=== PATIENT | male | born 1945 | race Caucasian/White ===

== ENCOUNTER 2016-02-18 15:26 | Outpatient (RCR) | payer MEDICARE, MEDICAID ==
--- OUTSIDE RECORDS SUMMARY | 2015-12-17 15:13 | XMS REPORT | Continuity of Care Document ---
Author Author [facility] Organization [facility] Address Unknown Phone Unavailable Care Team Providers Care Coremaking Machine Setter Name Role Phone FABI CABA MD PCP Insurance Providers Payer Name Policy Number Subscriber Name Relationship Wps Medicare [id number] Bony Eddy 18 Self / Same As Patient [employer] [id number] Bony Eddy 18 Self / Same As Patient Advance Directives Directive Response Recorded Date/Time Advance Directives Yes 04/14/14 12:58pm Health Care Power of Projection Camera Operator Yes 04/14/14 12:58pm Organ Donor No 04/14/14 12:58pm Problems Medical Problems Problem Onset Date Status Chest pain Unknown Active Severe peripheral arterial disease Unknown Active Severe peripheral arterial disease Unknown Active Medications Medication Dose Route Sig Days/Qty Instructions Order Date Discontinued Date Status Warfarin Sodium 5 Mg PO DAILY 02/21/07 Active [Dilantin] 02/21/07 10/26/08 Discontinued Ezetimibe 02/21/07 05/18/10 Discontinued [Metoprolol] 02/21/07 10/26/08 Discontinued [Lisinopril] 02/21/07 05/18/10 Discontinued Cou 04/04/07 10/26/08 Discontinued Lis 04/04/07 10/26/08 Discontinued Dila 04/04/07 10/26/08 Discontinued [Coreg12.5 Mg] 1 Tab PO TWICE A DAY 05/18/10 08/26/10 Discontinued Carvedilol (Coreg) 3.125 Mg PO TWICE A DAY LAST FILLED #60 4-6-13 06/20 /11 07/18/14 Discontinued Furosemide (Lasix) 20 Mg PO DAILY 08/26/10 01/29/13 Discontinued Potassium Chloride 10 Meq PO DAILY LAST FILLED #30 05-26-12 08/26/10 Discontinued Acetaminophen 1,000 Mg PO EVERY 6 HOURS PRN 08/31/10 11/29/12 Discontinued Aspirin 81 Mg PO DAILY 08/31/10 Active Clopidogrel Bisulfate 75 Mg PO DAILY 08/31/10 05/21/12 Discontinued Lisinopril (Zestril) 5 Mg PO DAILY 08/31/10 09/09/11 Discontinued Pantoprazole Sod 40 Mg PO DAILY LAST FILLED #30 05-25-12 08/31/1006/14 Discontinued Fish Oil 1,000 Mg PO TWICE A DAY 08/31/10 04/11/14 Discontinued Atorvastatin Calcium 10 Mg PO BEDTIME 08/31/10 10/04/10 Discontinued Rosuvastatin Calcium 40 Mg PO BEDTIME 10/04/10 11/29/12 Discontinued Hydrocodone Bit/Acetaminophen 1 Each PO EVERY 4HRS PRN 10 Qty 11/19/12 11/24/12 Discontinued Clopidogrel Bisulfate 75 Mg PO DAILY 11/24/12 11/24/12 Discontinued Acetaminophen/Hydrocodone Bitart 1 Tab PO EVERY 4HRS PRN PAIN 5-325MG TABLET 11/24/12 01/29/13 Discontinued Gabapentin 100 Mg PO DAILY 11/24/12 11/29/12 Discontinued Gabapentin 300 Mg PO THREE TIMES A DAY 11/29/12 Active Cephalexin Monohydrate 500 Mg PO EVERY 6 HOURS 7 Days 11/29/12 Discontinued Pantoprazole Sodium 1 Tab PO DAILY 30 Qty 01/29/13 06/18/13 Discontinued Ibuprofen 400 Mg PO THREE TIMES DAILY WITH MEALS 5 Days 01/29/1309/23 Discontinued Furosemide 40 Mg PO DAILY 06/17/13 09/23/13 Discontinued Pantoprazole Sodium 40 Mg PO DAILY 30 Qty 06/18/13 09/29/13 Discontinued Carvedilol 6.25 Mg PO TWICE A DAY 09/23/13 Active Furosemide (Lasix) 40 Mg PO DAILY 09/23/13 04/11/14 Discontinued Multivitamin 1 Tab PO DAILY 09/23/13 Active Lisinopril 5 Mg PO DAILY 09/23/13 Active Magnesium Oxide 400 Mg PO DAILY 09/23/13 Active Ipratropium/Albuterol Sulfate 2 Puff IH EVERY 6 HOURS PRN SHORTNESS OF BREATH NEEDED FOR SHORTNESS OF BREATH 09/23/13 04/11/14 Discontinued Warfarin Sodium 2.5 Mg PO M,TU,TH,FR,SA,SANTOS 09/23/13 04/11/14 Discontinued Pantoprazole Sodium 40 Mg PO BEDTIME 09/29/13 Active Furosemide (Lasix) 40 Mg PO DAILY 04/11/14 Active Ipratropium/Albuterol Sulfate 1 Puff IH EVERY 6 HOURS PRN SHORTNESS OF BREATH 04/11/14 Active Albuterol Sulfate 2 Puff IH EVERY 6 HOURS PRN SHORTNESS OF BREATH 05/21 Active Enoxaparin Sodium 80 Mg SC EVERY 12 HOURS 4 Qty 04/20/14 Active Social History Social History Problem Response Recorded Date/Time Alcohol Use Past History 04/14/2014 12:59pm Recreational Drug Use No 04/14/2014 12:59pm Recent Foreign Travel No 09/23/2013 7:05am Recent Infectious Disease Exposure No 09/23/2013 7:05am Hospitalization with Isolation Denies 09/23/2013 5:06pm Sexually Transmitted Disease No 04/14/2014 12:59pm HIV/AIDS No 04/14/2014 12:59pm Hospital Discharge Instructions No hospital discharge instructions. Plan of Care No plan of care. Functional Status No functional status results. Allergies, Adverse Reactions, Alerts Allergen Type Severity Reaction Status Last Updated Morphine Allergy Unknown Active 02/22/07 Immunizations Name Given Type Hepatitis A No Historical Hepatitis B Yes Historical Tetanus Booster (TDap) Less than 5yrs Historical Vital Signs No known vital signs results. Results Laboratory Results Test Name Result Units Flags Reference Collection Date/Time Result Date/ Time Comments Prothrombin Time 24.9 SEC H 12.2-14.7 05/03/2014 10:40am 05/03/2014 11: 13am INR Comment 2.3 H 0.8-1.4 05/03/2014 10:40am 05/03/2014 11:13am INTERPRETIVE DATA SUGGESTED THERAPEUTIC RANGE FOR INR'S: VENOUS THROMBOSIS, PULMONARY EMBOLISM, OR PREVENTION OF SYSTEMIC EMBOLISM (EG. IN ATRIAL FIBRILLATION): 2.0 - 3.0 MECHANICAL PROSTHETIC HEART VALVES: 2.5 - 3.5* *NOTE: INR'S UP TO 4.5 MAY BE NECESSARY IN SELECTED GROUPS OF HIGH RISK PATIENTS. [employer] CONSENSUS CONFERENCE ON ANTITHROMBOTIC THERAPY (2000). Procedures No known history of procedures. Encounters Encounter Location Date/Time Discharged Recurring [facility] 06/23/14 11:51am Discharged Recurring [facility] 05/03/14 10:30am
[~2016-02-18 15:26] MED LIST: AC500T PO; ACHD5005 PO; AGM875T PO; ALBU8.5H2 IH; ALLO100T PO; AMOX1TAB12 PO; AMPI500C9 PO; ASP81TEC PO; ATRV10T PO; CARV12.52 PO; CARV3.122 PO; CARV6.252 PO; CEPH-38 PO; CIPR500T4 PO; CLPD75T PO; COU; CRESTOR40 MG PO; CRV6.25T PO; DILANTIN; ENXP80I.8 SC; EZET10TA5; FURO20TA4 PO; FURO40TA PO; FURO40TA4 PO; GABA-488 PO; GBPN100C PO; GBPN300C PO; HYDR-3812 PO; HYDR-757 PO; HYDR1TAB PO; IBP200T PO; IPRA4AER IH; LACT1CAP8 PO; LACT1TAB9 PO; LIS; LISI-556 PO; LISI5TAB PO; LISINOPRIL; MAGN400T6 PO; METOPROLOL; METR500T PO; MULT-974 PO; NAPR-243 PO; OMG1KC PO; PANT40TA PO; PANT40TA3 PO; PNT40TEC PO; POTA10CA43 PO; RT-COMBINH IH; SILV480G TP; SULF-11 PO; WARF-48 PO; WARF1TAB PO; WARF2.5T56 PO; WRF5T PO; [UNRECOGNIZED DRUG - OTHER]
[2016-03-06] MEDS ORDERED: GABA-486 PO ×2 (17:08)
[2016-03-06] MEDS ORDERED: ROSU40TA PO (17:08)
[2016-03-18] MEDS ORDERED: WARF2TAB PO (14:27)
[2016-03-18] MEDS ORDERED: GABA-486 PO ×3 (14:27)
[2016-03-18] MEDS ORDERED: DOCU100C37 PO (14:27)
[2016-03-18] MEDS ORDERED: HYDR-3812 PO (14:28)
== END 2016-03-16 | disposition home or self-care (01) ==
LOC: WOUNDCARE 15:26
PROVIDERS: ATTEND Surgery
DX: L97.523 Non-pressure chronic ulcer of other part of left foot with necrosis of muscle (principal); I70.245 Atherosclerosis of native arteries of left leg with ulceration of other part of foot; I87.323 Chronic venous hypertension (idiopathic) with inflammation of bilateral lower extremity; I89.0 Lymphedema, not elsewhere classified; F17.210 Nicotine dependence, cigarettes, uncomplicated
CPT/HCPCS: 11042; 87070; 87075; 87077; 87186; 87205; 99213

== ENCOUNTER 2016-03-06 14:10 | Inpatient (IN) | payer MEDICARE, MEDICAID ==
[~2016-03-06] VITALS: Ht 160 cm; Wt 72.1 kg
[2016-03-06] MEDS ORDERED: ROSU40TA PO (17:08)
[2016-03-06] MEDS ORDERED: GABA-486 PO ×2 (17:08)
[2016-03-06 17:51] VITALS: BP 115/61
--- OUTSIDE RECORDS SUMMARY | 2016-03-06 18:07 | XMS REPORT | Continuity of Care Document ---
Author Author [facility] Organization [facility] Address Unknown Phone Unavailable Care Team Providers Care Instructor Creeler Name Role Phone FABI CABA MD PCP Insurance Providers Payer Name Policy Number Subscriber Name Relationship Wps Medicare [id number] Bony Eddy 18 Self / Same As Patient [employer] [id number] Bony Eddy 18 Self / Same As Patient Advance Directives Directive Response Recorded Date/Time Advance Directives Yes 04/14/14 12:58pm Health Care Power of Airport Operations Duty Manager Yes 04/14/14 12:58pm Organ Donor No 04/14/14 [...] SELECTED GROUPS OF HIGH RISK PATIENTS. [employer] CONSENSUS CONFERENCE ON ANTITHROMBOTIC THERAPY (2000). Procedures No known history of procedures. Encounters Encounter Location Date/Time Discharged Recurring Via [facility] 06/23/14 11:51am Discharged Recurring Via [facility] 05/03/14 10:30am
[2016-03-06] MEDS ORDERED: RT-ALBUTEROL SULF 2.5 MG/3 ML PRE-MIX VIAL IH PRN (18:30)
[2016-03-06] MEDS ORDERED: FLU TRIvalent (5 YOA+) 2016-17 (AFLURIA) 0.5 ML IM ONE (19:00)
[2016-03-06] MEDS: ATORVASTATIN 40 MG (LIPITOR) TABLET PO SCH (20:00)
[2016-03-06] MEDS: CARVEDILOL 6.25 MG (COREG) TAB PO SCH (20:00)
[2016-03-06] MEDS: GABAPENTIN 100 MG (NEURONTIN) CAP PO SCH (20:00)
[2016-03-06] MEDS: RT-ALBUTEROL/IPRATROPIUM 3 ML (DUONEB) VIAL INH SCH (21:00)
[2016-03-07] MEDS: HYDROcodone/APAP 5 MG/325 MG (LORTAB) TAB PO PRN ×2 (01:28→13:16)
[2016-03-07] MEDS: RT-ALBUTEROL/IPRATROPIUM 3 ML (DUONEB) VIAL INH SCH ×5 (02:47→20:07)
[2016-03-07] MEDS: PANTOPRAZOLE 40 MG (PROTONIX) TAB PO SCH (05:28)
[2016-03-07 05:37] LABS: BASOPHILS % (AUTO) 0 % (0-10); EOSINOPHILS # (AUTO) 0.2 10^3/uL (0.0-0.3); EOSINOPHILS % (AUTO) 2 % (0-10); LYMPHOCYTES # (AUTO) 2.2 X 10^3 (1.0-4.0); LYMPHOCYTES % (AUTO) 23 % (12-44); MEAN CORPUSCULAR HEMOGLOBIN 29 PG (25-34); MEAN CORPUSCULAR HGB CONC 34 G/DL (32-36); MEAN CORPUSCULAR VOLUME 86 FL (80-99); MEAN PLATELET VOLUME 11.6 FL (7.4-10.4); MONOCYTES # (AUTO) 1.1 X 10^3 (0.0-1.0); MONOCYTES % (AUTO) 11 % (0-12); NEUTROPHILS # (AUTO) 6.1 X 10^3 (1.8-7.8); NEUTROPHILS % (AUTO) 64 % (42-75); PLATELET COUNT 185 10^3/uL (130-400); RED BLOOD COUNT 3.33 10^6/uL (4.35-5.85); RED CELL DISTRIBUTION WIDTH 14.3 % (10.0-14.5); WHITE BLOOD COUNT 9.6 10^3/uL (4.3-11.0)
[2016-03-07 05:49] LABS: INR 2.1 (0.8-1.4); PROTHROMBIN TIME PATIENT 23.1 SEC (12.2-14.7)
[2016-03-07 05:59] LABS: ALANINE AMINOTRANSFERASE 15 U/L (0-55); ALBUMIN 3.2 G/DL (3.2-4.5); ANION GAP 9 MMOL/L (5-14); ASPARTATE AMINO TRANSFERASE 34 U/L (5-34); BILIRUBIN,TOTAL 0.4 MG/DL (0.1-1.0); BLOOD UREA NITROGEN 18 MG/DL (7-18); BUN/CREATININE RATIO 22; CALCIUM 8.9 MG/DL (8.5-10.1); CARBON DIOXIDE 25 MMOL/L (21-32); CHLORIDE 95 MMOL/L (98-107); CREATININE SERUM 0.81 MG/DL (0.60-1.30); GFR ESTIMATED > 60; GLUCOSE 105 MG/DL (70-105); POTASSIUM 4.5 MMOL/L (3.6-5.0); SODIUM 129 MMOL/L (135-145); TOTAL PROTEIN 6.1 G/DL (6.4-8.2)
[2016-03-07 06:00] VITALS: BP 120/73
--- NOTE | 2016-03-07 08:07 | HISTORY AND PHYSICAL ---
DATE OF ADMISSION: 03/06/2016 CHIEF COMPLAINT: Difficulty with walking, status post left AKA. HISTORY OF PRESENT ILLNESS: The patient is a 70-year-old retired male who lives in [place] who has had multiple revascularization procedures with Dr. Wren and Dr. Li. He was admitted to [facility] on 03/01 with severe ischemic rest pain of the left leg. No further revascularizations were available and the patient underwent a left AKA with Dr. Li vascular surgery. He is now referred to Inpatient Rehabilitation Unit, [facility] for ongoing amputee rehabilitation. His PCP is Dr. Alvarez. Currently he requires assistance for his ADLs and mobility skills.Specifically he is min assist for Standpivot transfers and bed mobility as well as w/c propulsion. He is Modified Independent for eating and grooming at the w/c level Mod assist for LB drsssing and min assist for UB drsssing. He had been modified independent with a walker prior to this. He reports being continent of bowel and bladder PAST MEDICAL HISTORY: 1. Hypertension. 2. Hyperlipidemia. 3. Peripheral vascular disease. 4. Mild carotid artery stenosis. 5. Coronary artery disease. 6. Chronic anticoagulation. 7. Tobaccoism. 8. Cardiomyopathy with ejection fraction 25%. 9. Mitral regurgitation, severe. 10. COPD. 11. Chronic systolic congestive heart failure. PAST SURGICAL HISTORY: 1. Left femoropopliteal bypass 05/25/2012 Dr. Li. 2. Right lower extremity stents Dr. Wren. 3. Status post thrombolytic therapy and stenting of the popliteal artery, Dr. Wren March 2014. 4. Cardiac catheterization in August 2010 showing patent grafts and a total occlusion of left circumflex artery. 5. Two-vessel bypass grafting 2004. 6. Status post AVR on June 2013. ALLERGIES: MORPHINE FAMILY HISTORY: Noncontributory. SOCIAL HISTORY: He lives in a first floor apartment in [place]. He is retired. He has family nearby. He is a . REVIEW OF SYSTEMS: Ten-point review of systems significant for a mild residual limb pain phantom limb pain, is on gabapentin for that. MEDICATIONS: 1. Lisinopril 5 mg p.o. daily. 2. Combivent inhalation q.6 hours. 3. Coumadin 5 mg p.o. daily. 4. Gabapentin 100 mg p.o. at noon, 8 a.m. and 200 mg at bedtime. 5. Mag-Ox 400 mg p.o. b.i.d. 6. Coreg 6.25 mg p.o. b.i.d. 7. Lipitor 40 mg p.o. at bedtime. 8. Lortab 5, 1 tablet p.o. q.4 hours p.r.n. moderate pain. 9. Albuterol small-volume nebulizer treatments q.4 hours p.r.n. dyspnea. PHYSICAL EXAMINATION: Physical examination is significant for a male, appearing his stated age, alert and oriented in no acute distress. VITAL SIGNS: He is afebrile. Pulse 70, respirations 16, blood pressure 115/61, O2 sat 95% on room air. HEENT: Vision, speech, hearing, grossly intact. No oral lesion is noted. NECK: Supple without mass. HEART: Regular rhythm. LUNGS: Clear. ABDOMEN: Soft, nontender. Bowel sounds present. EXTREMITIES: He has a left AKA with dressing in place. There is no calf tenderness. No edema in the right leg. MUSCULOSKELETAL: He has functional active range of motion in both upper extremities and right lower extremity and at the left hip. NEUROLOGIC: Sensation is grossly intact to touch. Cognition grossly intact. Strength both upper extremities, 4/5. Right lower extremity 4/5, left hip 4/5. IMPRESSION: 1. Ambulatory dysfunction secondary severe peripheral vascular disease, status post left AKA Dr. Li 03/01/16, Dana Dillon. 2. Hypertension, controlled with medication. 3. Hyperlipidemia, on statin. 4. Bilateral mild carotid artery stenosis. 5. Coronary artery disease, status post CABG and aVR 2004. Dr. Li. 6. Chronic anticoagulation per above. 7. Tobacco abuse currently abstaining. 8. Cardiomyopathy with ejection fraction of 25% followed by Dr. Solis in the past. 9. Severe mitral regurgitation. 10. COPD on inhalers. 11. Chronic systolic congestive heart failure, stable at this point, compensated. PLAN: The patient will have a comprehensive program of inpatient amputee rehabilitation with goal of maximizing level of functional dependence prior to discharge home with family and home health care. The patient will have PT/OT 90 minutes per day, 5 days a week for gait strengthening, conditioning, residual limb conditioning, ADLs, focus on wheelchair level of function, any adaptive equipment needed. Rehabilitation nursing assist with bowel, bladder, skin, wound care, medication administration, pain management. Speech therapy to do cognitive assessment and treat as indicated. senior professional services consultant to assist with discharge planning, community reentry. Respiratory therapy to assist with respiratory treatment administrations as needed. Follow-up with Dr. Alvarez PCP as per her schedule. Check CBC, CMP in a.m. daily INR and adjust Coumadin as indicated. Therapy with cardiac and fall precautions. DVT prophylaxis; the patient is on Coumadin. Follow-up with Dr. Solis cardiology as needed, or associated if he is unavailable ESTIMATED LENGTH OF STAY: Two weeks. PROGNOSIS: Rehab prognosis appears good for goal of discharging home with home health care and family to assist as needed. At the modified independent to supervision level. DIET: Regular. CODE STATUS: Full code. POST ADMISSION PHYSICIAN ASSESSMENT: The preadmission screen agrees with the post admission assessment that the patient is a good candidate for inpatient rehabilitation. He appears to be well motivated to participate in 3 hours of therapy a day. He should be able to tolerate 3 hours of therapy a day from a medical and surgical standpoint. He should benefit from the 3 hours of therapy a day. He has a reasonable discharge plan, reasonable discharge rehabilitation goals and a supportive family. He has various comorbidities that need to be closely monitored with medications and treatments adjusted on daily basis as needed. These include his hypertension, his congestive heart failure and cardiomyopathy and ongoing pain management and adjustment of Coumadin for therapeutic INR as needed. Barriers to discharge for this patient who had been modified independent prior to this is for him to be modified independent to supervision for ADLs and mobility skills prior to discharge home with home health care, so as to lessen the burden of the caregivers. Risks for this patient include: 1. Skin breakdown. 2. Wound infection. 3. Contractions. 4. Poorly controlled pain. 5. Poorly controlled phantom limb pain. 6. Poorly controlled hypertension. 7. Exacerbation of CHF. 8. Exacerbation of COPD. 9. DVT. 10. Pulmonary embolism. 11. Urinary retention. 12. UTI. 13. Respiratory infection. 14. Aspiration. . Job ID: [id number] Dictated Date: 03/06/2016 19:47:22 Teacher Industrial Arts Date: 03/07/2016 07:45:43/tracy ROY
[2016-03-07] MEDS: MAGNESIUM OXIDE (MAG-OX)400 MG TAB PO SCH ×2 (08:09→18:09)
[2016-03-07] MEDS: CARVEDILOL 6.25 MG (COREG) TAB PO SCH ×2 (08:09→20:46)
[2016-03-07] MEDS: GABAPENTIN 100 MG (NEURONTIN) CAP PO SCH ×3 (08:09→20:46)
--- NOTE | 2016-03-07 08:53 | Physical Therapy Evaluation ---
PT Evaluation-General Medical Diagnosis Admission Date Mar 06, 2016 at 18:04 Medical Diagnosis: left AKA Onset Date: Mar 01, 2016 Therapy Diagnosis Therapy Diagnosis: impaired mobility, strength, ROM, balance, pain Height/Weight Height (Feet): 5 Height (Inches): 3.00 Weight (Pounds): 160 Weight (Ounces): 7.0 Precautions Precautions/Isolations: Fall Prevention, Standard Precautions Weight Bear Status Location Restriction: L LE Referral Physician: Tawanda Dyson MD Reason for Referral: Evaluation/Treatment Medical History Pertinent Medical History: Arthritis, CAD, DM, HTN, Neuropathy Additional Medical History former smoker, pneumonia, chronic edema/swelling, high cholesterol, PVD, valvular heart disease, diverticulosis, gout, [place], violent behavior, surg (CABG , coronary stent, valve replacement, vascular surg, left leg bypass and thrombectomy) Current History Patient went to ER on 03/01/16 with severe left leg pain Reviewed History: Yes Social History Home: Apartment Entry Into Home: Level Entry Patient states he has a roommate or something similar right now and that person will be there when he goes home if he needs assistance. Patient lives on a first floor apartment and it is a level entry. Prior/Core FIM Prior Level of Function Functional [place] Measure 0=Not Assessed/NA 4=Minimal Assistance 1=Total Assistance 5=Supervision or Setup 2=Maximal Assistance 6=Modified [place] 3=Moderate Assistance 7=Complete [place] Bed Mobility: 7 Transfers (B,C,W/C) (FIM): 7 Gait: 7 PT Daily Note-Current Subjective Patient in bed pre tx, agrees to PT but is very agitated and answering questions makes him angry. Pain Numeric Pain Scale: 4 Comment: left residual limb Appearance Patient in wheelchair post tx, has OT right after PT. Has nurse call, phone, tray, all needs met. Mental Status Patient Orientation: Person, Place, Situation Transfers Functional [place] Measure 0=Not Assessed/NA 4=Minimal Assistance 1=Total Assistance 5=Supervision or Setup 2=Maximal Assistance 6=Modified [place] 3=Moderate Assistance 7=Complete IndependenceIRFPAI Quality Coding Scale 6 Independent with activity with or without an assistive device 5 Patient requires set up or clean up by helper. Patient completes activity by themselves 4 Supervision or touching assist (CGA). [place] provide cues , steadying assist 3 The helper provides less than half the effort to complete the activity 2 The helper provides more than half the effort to complete the activity 1 Dependent. The helper does all the effort to complete an activity 7 Patient refused to complete or attempt activity 9 The patient did not perform the activity before the current illness or injury 88 Not attempted due to Medical conditions or safety concerns Transfers (B, C, W/C) (FIM): 4 Scootin Rollin Roll Left to Right (QC): 4 Supine to/from Sit: 5 Sit to/from Stand: 4 Bed to/from Chair: 4 Sit to Lying (QC): 4 Lying-Sitting/Side of Bed(QC): 4 Sit to Stand (QC): 4 Chair/Hvm-dd-Exbxi Xfer(QC): 4 Car Transfer (QC): 88 Patient takes a long time to go from supine to sit, he was not open to changing his technique to do this until he saw that he was not able to sit at the edge of the bed by doing it his way. After he gave up, this therapist recommended trying a log roll and patient was able to sit at the edge of the bed by himself but it did take quite a bit of time and effort on his part. He was able to stand using a rolling walker and CGA and elevating the bed a bit to give him a boost. Gait Training Does the Patient Walk?: Yes Gait (FIM): 1 Distance: 2' Walk 10 feet (QC): 88 Walk 50 ft with 2 Turns(QC): 88 Walk 150 ft (QC): 88 Walk 10ft-uneven surface(QC): 88 Gait Level of Assist: 4 Gait Persons Needed: 1 Gait Assistive Device: FWW Patient ambulated a couple of feet to his wheelchair. He states he was not up to ambulating any further. He was very unsteady and probably could not go any further than 2' safely. Wheelchair Training Does the Pt Use a Wheelchair?: Yes Wheelchair (FIM): 2 Distance: 50' Wheelchair Level of Assist: 5 Wheel 50 ft with 2 turns (QC): 4 Wheel 150 ft (QC): 88 Type of Wheelchair: Manual Patient was able to propel a wheelchair 50' with at least 2 turns of 90 degrees. Stair Training Stairs (FIM): 0 1 Step (curb) (QC): 88 4 Steps (QC): 88 12 Steps (QC): 88 Patient is not able to attempt even 1 step safely at this time. Balance Balance Sitting Static: Normal Balance Sitting Dynamic: Normal Balance-Standing Static: Poor Balance Standing Dynamic: Poor Picking up an Object (QC): 88 Exercises Patient stood in parallel bars for approx 8 min. Neuromuscular Patient has intact light touch sensation in his right leg. Strength is 4/5 gross in right leg. Left residual limb strength or any other testing not performed due to pain and patient agitation. Treatments bed mobility and transfers, ambulation, functional strengthening, wheelchair mobility, education Assessment Current Status: Fair Progress Patient has profoundly impaired mobility post left AKA. He has decreased strength in his remaining lower extremity. He would like to eventually get a prosthetic leg and could start using a sap bi architect. PT Short Term Goals Short Term Goals Time Frame: Mar 14, 2016 Gait (FIM): 1 Gait Distance Comment: 20' Gait Level of Assist: 4 Gait Assistive Device: FWW PT Shelter Goals Shelter Goals PT Shelter Goals Time Frame: Mar 28, 2016 Transfers (B,C,W/C) (FIM): 5 Sit to Lying (QC): 6 Lying-Sitting on Side/Bed(QC): 6 Sit to Stand (QC): 4 Rollin Roll Left to Right (QC): 6 Chair/Fyj-uw-Gmvzy Xfer(QC): 4 Car Transfer (QC): 4 Does the Patient Walk: Yes Gait (FIM): 2 Distance: 50' Walk 10 feet (QC): 4 Walk 10ft-Uneven Surface(QC): 4 Walk 50ft with 2 Turns (QC): 4 Gait Level of Assist: 5 Gait Assistive Device: FWW Stairs (FIM): 1 # of Steps: 1 1 Step (curb) (QC): 4 Stairs Level Of Assist: 5 PT Plan Problem List Problem List: Activity Tolerance, Functional Strength, Safety, Balance, Gait, Transfer, Bed Mobility, ROM Treatment/Plan Treatment Plan: Continue Plan of Care Treatment Plan: Bed Mobility, Education, Functional Activity Anuj, Functional Strength, Group Therapy, Gait, Safety, Therapeutic Exercise, Transfers Treatment Duration: Mar 28, 2016 # of days/week 5-6 Visits Per Week: 10-11 Minutes/Day (M-F): 60-90 Minutes/Day (Sat/Lo): 15-30 Pt/Family Agrees w/Plan: Yes Safety Risks/Education Patient Education: Gait Training, Transfer Techniques, Correct Positioning, W/ C Management, Safety Issues Teaching Recipient: Patient Teaching Methods: Demonstration, Discussion Response to Teaching: Reinforcement Needed Oriented patient to rehab and education on stump care and disease process Discharge Recommendations Plan Patient will perform bed mobility and transfers, balance and endurance training , functional strengthening, stair training, gait training, ROM/stretching, wheelchair mobility, education, to improve functional mobility and independence at home. Therapy D/C Recommendations: Home w/ Family Support Time/GCodes Time In: 800 Time Out: 900 Total Billed Treatment Time: 60 Total Billed Treatment 1 visit EVS 15 min [facility] 15 min FA 30 min JULIANA PADILLA PT Mar 07, 2016 08:53
--- NOTE | 2016-03-07 09:40 | PM & R (SOAP) Progress Note ---
Subjective Subjective/Events-last exam Patient was seen in his room this AM Adjusting well to unit Therapy assessments ongoing Patient min assist for Standpivot transfers.Labs noted INR 2,1 Serum Sodium 129 Review of Systems Musculoskeletal: : leg pain Objective Exam Last Set of Vital Signs Vital Signs Date Time Temp Pulse Resp B/P Pulse Ox O2 Delivery O2 Flow Rate FiO2 03/07/16 07:49 90 Room Air 03/07/16 06:00 98.8 76 18 120/73 Capillary Refill : I&O Bad tableGeneral: Alert, Oriented X3, Cooperative, No Acute Distress HEENT: Atraumatic, PERRLA, EOMI, Mucous Memb Moist/[place] Neck: Supple, No JVD Lungs: Clear to Auscultation Heart: Regular Rate Abdomen: Normal Bowel Sounds, Soft, No Tenderness Extremities: Other (left AKa wrapped and no edema or calf tenderness rt leg) Neuro: Other (Functional strength Cognitively intact) Results Lab Laboratory Tests 03/07/16 05:24: Alanine Aminotransferase (ALT/SGPT) 15, Albumin 3.2, Alkaline Phosphatase 81, Anion Gap 9, Aspartate Amino Transf (AST/SGOT) 34, BUN/Creatinine Ratio 22, Basophils # (Auto) 0.0, Basophils (%) (Auto) 0, Blood Urea Nitrogen 18, Calcium Level 8.9, Carbon Dioxide Level 25, Chloride Level 95L, Creatinine 0.81, Eosinophils # (Auto) 0.2, Eosinophils (%) (Auto) 2, Estimat Glomerular Filtration Rate > 60, Glucose Level 105, Hematocrit 29L, Hemoglobin 9.8L, INR Comment 2.1H, Lymphocytes # (Auto) 2.2, Lymphocytes (%) (Auto) 23, Mean Corpuscular Hemoglobin 29, Mean Corpuscular Hemoglobin Concent 34, Mean Corpuscular Volume 86, Mean Platelet Volume 11.6H, Monocytes # (Auto) 1.1H, Monocytes (%) (Auto) 11, Neutrophils # (Auto) 6.1, Neutrophils (%) (Auto) 64, Platelet Count 185, Potassium Level 4.5, Prothrombin Time 23.1H, Red Blood Count 3.33L, Red Cell Distribution Width 14.3, Sodium Level 129L, Total Bilirubin 0.4, Total Protein 6.1L, White Blood Count 9.6 Assessment/Plan Assessment Left AKA DR Guillermo Dillon for sever PVD Postop anmeia Hyponatremia Chronic anticoagulation on coumadin with theraaaaaapeutic INR HTN controlled COPD on inhalers S/.P AVR 2004 Cardiomyopathy with EF 25% followed by Dr Solis in past Plan Continue PT/OT/Wound care and pain management TEam Conference next week Recheck Labs F/U with Dr Alvarez PCP CHARLIE VARGAS MD Mar 07, 2016 09:39
--- NOTE | 2016-03-07 10:34 | ST Cognitive Linguistic Eval ---
Speech Evaluation-General Medical Diagnosis left RADHA Onset Date: Mar 01, 2016 Therapy Diagnosis Therapy Diagnosis: Questionable Cognitive Impairment Precautions Precautions/Isolations: Fall Prevention, Standard Precautions Referral Referring Physician: Dr. Tawanda Dyson Reason for Referral: Evaluation/Treatment Cognitive Screen Medical History Pertinent Medical History: Arthritis, CAD, DM, HTN, Neuropathy Reviewed History: Yes Speech PLF-Current Status Prior Level of Function The patient denied difficulties with speech, language, or cognitive abilities prior to or throughout hospitalization. Subjective The patient was recently admitted to [facility] following an above knee amputation. The patient greeted the clinician appropriately and agreed to participate in the cognitive screen on this date. Language Eval: Auditory Comprehends Simple Yes/No Ques: Functional Indent/Objects Multiple [place]: Functional Ident/Pics in Multiple Martinez: Functional Follows 1-Step Commands: Functional Follows General Conversations: Functional Language Eval: Verbal Language Completes Spontaneous Greeting: Functional Produces Auto, Serial Info: Functional Imitates Simple Words/Phrases: Functional Word Finding: Functional Requests Basic Needs: Functional States Basic Personal Info: Functional Expresses Complex Ideas: Functional Objective Cognitive Domain Attention: WNL Memory: WNL Problem Solving: Functional Objective Impression The patient demonstrated cognitive linguistic skills within functional limits for completion of ADL's. Communication/Social Cognition Comprehension: 5 Expression: 6 Social Interaction: 5 Problem Solvin Memory: 6 Speech Patient Assess Expression of Ideas/Wants: Expression (4) Understanding [place] Content: Understands (4) Brief Interview-Mental Status: Yes Repetition of Three Words: Three (3) Temporal Orientation: Year: Correct (3) Temporal Orientation: Month: Accurate within 5 days(2) Temporal Orientation: Day: Incorrect or No Answer(0) Recall : Wear: Yes, no cue required (2) Recall : Color: Yes, no cue required (2) Recall : Bed: Yes, no cue required (2) Speech Senior Care Goals Senior Care Goals Comprehension: 5 Expression: 6 Social Interaction: 5 Problem Solvin Memory: 6 Speech-Plan Treatment Plan Speech Therapy Treatment Plan: Discontinue ST (Eval, only.) Rehab Potential: Good Safety Risks/Education Teaching Recipient: Patient Teaching Methods: Discussion Response to Teaching: Verbalize Understanding Education Topics Provided: Plan of Care Time Speech Therapy Time In: 10:00 Speech Therapy Time Out: 10:15 Total Billed Time: 15 Billed Treatment Time 1AUDI ELIZABETH ST Mar 07, 2016 10:34
--- NOTE | 2016-03-07 10:42 | Occupational Therapy Eval ---
OT Evaluation-General/PLF Medical Diagnosis Admission Date Mar 06, 2016 at 18:04 Medical Diagnosis: left RADHA Onset Date: Mar 01, 2016 Therapy Diagnosis Therapy Diagnosis: impaired self care skills Height/Weight Height (Feet): 5 Height (Inches): 3.00 Weight (Pounds): 160 Weight (Ounces): 7.0 Precautions Precautions/Isolations: Fall Prevention, Standard Precautions Safety Interventions: None Weight Bear Status Location Restriction: L LE Referral Physician: Tawanda Dyson MD Medical History Pertinent Medical History: Arthritis, CAD, DM, HTN, Neuropathy Additional Medical History former smoker, pneumonia, chronic edema/swelling, high cholesterol, PVD, valvular heart disease, diverticulosis, gout, OMAHA, violent behavior, surg (CABG , coronary stent, valve replacement, vascular surg, left leg bypass and thrombectomy) Current History pt s/p left RADHA Reviewed History: Yes Social History Home: Apartment Entry Into Home: Level Entry ADL-Prior Level of Function ADL PLOF Comments Pt reports being independent prior to surgery. Was no using any AD for mobility. 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 Pt c/o 5/10 pain in left LE. Mental Status/Objective Patient Orientation: Person, Place, Situation Current Glasses/Contacts: No Hearing Aids: No Dentures/Partials: No Hand Dominance: Right Upper Extremity ROM WFL Upper Extremity Coordination Intact Upper Extremity Sensation Pt reports occasional numbness in hands. Upper Extremity Strength Grossly WFL, but will need strengthening as he will be relying more heavily on UE for transfers with FWW ADL-Treatment ADL-Current Pt completed seated sponge bath. Upper body bathing with SBA. Pt able to wash bilateral upper legs, rd area, and right lower leg. Assist to stand and wash buttocks. Don pullover shirt after set up. Pt donned shorts with minimal assistance. Requires increased time to stand and perform pant hike; FWW for balance during standing. Pt doffed/donned right sock with CGA for balance while sitting EOB. Pt demonstrated ability to perform transfer to BSC with minimal assistance using FWW. Skilled cues required for safety during mobility tasks. Pt sat at sink for grooming tasks. Pt brushed hair after set up. Pt does not have any teeth and states he only rinses mouth with water or mouthwash. Pt rinsed mouth with water with SBA. Pt requests to return to bed. Transfer w/c to EOB with minimal assistance. Sit to supine with minimal assistance and increased time. Pt in bed with needs met after session. Functional [place] Measure 0=Not Assessed/NA 4=Minimal Assistance 1=Total Assistance 5=Supervision or Setup 2=Maximal Assistance 6=Modified [place] 3=Moderate Assistance 7=Complete IndependenceIRFPAI Quality Coding Scale 6 Independent with activity with or without an assistive device 5 Patient requires set up or clean up by helper. Patient completes activity by themselves 4 Supervision or touching assist (CGA). [place] provide cues , steadying assist 3 The helper provides less than half the effort to complete the activity 2 The helper provides more than half the effort to complete the activity 1 Dependent. The helper does all the effort to complete an activity 7 Patient refused to complete or attempt activity 9 The patient did not perform the activity before the current illness or injury 88 Not attempted due to Medical conditions or safety concerns Eating (FIM): 6 (Pt reports opening containers, cutting food, and feeding self without assistance.) Eating (QC): 6 Grooming (FIM): 5 Oral Hygiene (QC): 5 Bathing (FIM): 4 Shower/Bathe Self (QC): 3 Upper Body Dressing (FIM): 5 Upper Body Dressing (QC): 5 Lower Body Dressing (FIM): 4 Lower Body Dressing (QC): 3 On/Off Footwear (QC): 4 Toilet/Commode Transfer (FIM): 4 Toilet Transfer (QC): 3 Education OT Patient Education: Rehab process Teaching Recipient: Patient Teaching Methods: Discussion Response to Teaching: Verbalize Understanding OT Short Term Goals Short Term Goals Time Frame: Mar 14, 2016 Lower Body Dressing(FIM): 5 Toileting(FIM): 5 Toilet/Commode Transfer(FIM): 5 Shower Transfer(FIM): 4 Additional Short Term Goals: 1-Demonstrate ADL Tasks, 2-Verbalize Understanding , 3-ImproveStrength/Anuj 1=Demonstrate adherence to instructed precautions during ADL tasks. 2=Patient will verbalize/demonstrate understanding of assistive devices/ modifications for ADL. 3=Patient will improve strength/tolerance for activity to enable patient to perform ADL's. OT Chair And Couch Maker Goals Chair And Couch Maker Goals Time Frame: Mar 28, 2016 Eating (QC): 6 Oral Hygiene (QC): 6 Grooming(FIM): 6 Bathing(FIM): 5 Shower/Bathe Self (QC): 6 Upper Body Dressing(FIM): 6 Upper Body Dressing (QC): 6 Lower Body Dressing(FIM): 6 Lower Body Dressing (QC): 6 On/Off Footwear (QC): 6 Toileting(FIM): 6 Toileting Hygiene (QC): 6 Toilet/Commode Transfer(FIM): 6 Toilet/Commode Transfer (QC): 6 Shower Transfer(FIM): 5 Additional Goals: 1-Demonstrate ADL Tasks, 2-Verbalize Understanding, 3- ImproveStrength/Anuj 1=Demonstrate adherence to instructed precautions during ADL tasks. 2=Patient will verbalize/demonstrate understanding of assistive devices/ modifications for ADL. 3=Patient will improve strength/tolerance for activity to enable patient to perform ADL's. Goals established to maximize level of function and allow safe discharge. OT Education/Plan Problem List/Assessment Assessment: Decreased Activ Tolerance, Decreased UE Strength, Dependent Transfers, Impaired Self-Care Skills Pt s/p left AKA with decreased mobility, ADL functioning, and activity tolerance. Pt to benefit from skilled OT intervention for ADL training, transfers, strengthening, and safety education to maximize level of function and allow safe discharge plan. Discharge Recommendations Plan/Recommendations: Continue POC Treatment Plan/Plan of Care Treatment,Training & Education: Yes Patient would benefit from OT for education, treatment and training to promote independence in ADL's, mobility, safety and/or upper extremity function for ADL' s. Plan of Care: ADL Retraining, Functional Mobility, Group Exercise/Act as Ind, UE Funct Exercise/Act Treatment Duration: Mar 28, 2016 # of days/week 5-6 Minutes/Day (M-F): 60-90 Minutes/Day (Sat/Lo): PRN Agreement: Yes Rehab Potential: Good Time/GCodes Start Time: 09:00 Stop Time: 10:00 Total Time Billed (hr/min): 60 Billed Treatment Time 1 visit, EVS(15minutes), ADLx3(45minutes) TANIKA ZEPEDA OT Mar 07, 2016 10:42
--- NOTE | 2016-03-07 13:21 | Individualized Plan of Care ---
Individualized Plan of Care Rehab Nursing IPOC Order Admission Date Mar 06, 2016 at 18:04 Current Orders Orders-CHARLIE VARGAS MD Admission Arrival Bed Request (03/06/16 17:57) General/Regular (03/06/16 Dinner) Admission-Acute Rehab Unit (03/06/16 18:21) Vital Signs: Routine 08,16,00 (03/06/16 18:21) Social Service (03/06/16 18:21) Rehab Nursing Orders-Ipoc (03/06/16 18:21) Physical Therapy Rehab Orders (03/06/16 18:21) Occupational Therapy Rehab Ord (03/06/16 18:21) Speech Therapy Rehab Orders (03/06/16 18:21) Turn And Reposition Q2HR (03/06/16 18:21) Intake & Output Shift Assessme 06,14,22 (03/06/16 18:21) Weight Bearing Status (03/06/16 18:21) Precautions (Aru) (03/06/16 18:21) Weekly Weight (Lbs) WEEK (03/06/16 18:21) Cbc With Automated Diff (03/07/16 06:00) Comprehensive Metabolic Panel (03/07/16 06:00) Consult Physician (03/06/16 18:27) Influenza Vac Order Indicated (03/06/16 18:28) Hydrocodone/Apap 5/325 Tablet (Lortab 5 (03/06/16 18:30) Carvedilol Tablet (Coreg Tablet) (03/06/16 21:00) Gabapentin Capsule/Tablet (Neurontin Cap (03/06/16 21:00) Gabapentin Capsule/Tablet (Neurontin Cap (03/07/16 12:00) Lisinopril Tablet (Zestril Tablet) (03/07/16 18:00) Magnesium Oxide Tablet (Mag Ox Tablet) (03/07/16 08:00) Pantoprazole Tablet (Protonix Tablet) (03/07/16 07:00) Atorvastatin Tablet (Lipitor) (03/06/16 21:00) Warfarin Tablet (Coumadin Tablet) (03/07/16 18:00) Protime With Inr (03/07/16 06:00) Protime With Inr (03/08/16 06:00) Protime With Inr (03/09/16 06:00) Protime With Inr (03/10/16 06:00) Protime With Inr (03/11/16 06:00) Gabapentin Capsule/Tablet (Neurontin Cap (03/07/16 09:00) Albuterol Pre-Mix Nebs (Rt) (Proventil P (03/06/16 18:30) Albuterol/Ipra Inhalation Soln (Duoneb I (03/06/16 21:00) Influenza Trivalent [id number] (Afluria ( (03/06/16 19:00) Patient Visit (03/07/16 ) Speech Sound Lang Comp (03/07/16 ) PT IPOC Problem List: Activity Tolerance, Functional Strength, Safety, Balance, Gait, Transfer, Bed Mobility, ROM Treatment Plan: Continue Plan of Care Bed Mobility, Education, Functional Activity Anuj, Functional Strength, Group Therapy, Gait, Safety, Therapeutic Exercise, Transfers Treatment Duration: Mar 28, 2016 Visits Per Week: 10-11 Minutes/Day (M-F): 60-90 Minutes/Day (Sat/Lo): 15-30 OT IPOC Problems: Decreased Activ Tolerance, Decreased UE Strength, Dependent Transfers , Impaired Self-Care Skills OT Problems Pt s/p left AKA with decreased mobility, ADL functioning, and activity tolerance. Pt to benefit from skilled OT intervention for ADL training, transfers, strengthening, and safety education to maximize level of function and allow safe discharge plan. Plan of Care: ADL Retraining, Functional Mobility, Group Exercise/Act as Ind, UE Funct Exercise/Act Treatment Duration: Mar 28, 2016 Visits Per Week: 10-11 Minutes/Day (M-F): 60-90 Minutes/Day (Sat/Lo): PRN ST IPOC Speech Therapy Treatment Plan: Discontinue ST (Eval, only.) Physician IPOC Medical Issues being managed closely and that require the 24 hour availability of a physician:Wound care anemia HTN Cardiomyopathy Chronic anticoagulation s/p AVR Medical Issues: DVT Prophylaxis, Falls Precautions, Fluid/Electrolyte/ Nutrition Balance, Infection Protection, Pain Management, Weight Bearing Precautions, Wound Care, Other (List) (as per above) Brief Synthesis of Preadmission Screen, Post-Admission Evaluation, and Therapy Evaluations: 70 yo male who had been Independent and living in handicap accessible apartment in [place] who underwent a Left AKA for severe PVD Has Multiple comorbidities as outlined above and chronically anticoagulated. Medical Prognosis: Good Anticipated Length of Stay: 3 weeks Rehab Goals Modified Independent for adls and mobility skills at the w/c [facility]; of function due to recent left AKA Anticipated discharge destinat: Home with family and [facility] CHARLIE VARGAS MD Mar 07, 2016 13:21
--- NOTE | 2016-03-07 14:29 | Consultation ---
History of Present Illness History of Present Illness Patient Consulted On(hilario/time) 03/07/16 14:26 Date of Admission History of Present Illness amputation left leg AKA in [place] at [facility]. Patient here for rehabilitation. Allergic to morphine. Patient had bypass and stents put in. Patient has history of heart problem with to bypass and valve Allergies and Home Medications Allergies Coded Allergies: morphine (Verified Allergy, Unknown, 02/22/07) Home Medications Aspirin 81 Mg Tabec 81 MG PO DAILY (Reported) Carvedilol 6.25 Mg Tablet 6.25 MG PO BID (Reported) Gabapentin 100 Mg Capsule 100 MG PO UD (Reported) Gabapentin 100 Mg Capsule 100 MG PO (Reported) Lisinopril 5 Mg Tablet 5 MG PO HS (Reported) Magnesium Oxide 400 Mg Tablet 400 MG PO BID (Reported) Multivitamin 1 Each Tablet 1 TAB PO DAILY (Reported) Pantoprazole Sodium 40 Mg Tablet.dr 40 MG PO DAILY (Reported) Rosuvastatin Calcium 40 Mg Tablet 40 MG PO (Reported) Warfarin Sodium 5 Mg Tablet 5 MG PO HS (Reported) Past Vcaskvp-Ugfmic-Rphova Hx Patient Social History Alcohol Use: Past History Recreational Drug Use: No (ETOH) Drug of Choice: [place] Smoking Status: Former Smoker Type Used: Cigarettes 2nd Hand Smoke Exposure: Yes Recent Foreign Travel: No Contact w/Someone Who Travel: No Recent Infectious Disease Expo: No Recent Hopitalizations: Yes Physical Abuse Screen: No Sexual Abuse: No Immunizations Up To Date Tetanus Booster (TDap): Unknown PED Vaccines UTD: No Seasonal Allergies Seasonal Allergies: No Surgeries HX Surgeries: Yes Surgeries: CABG, Coronary Stent, Open Heart Surgery, Valve Replacement, Vascular Surgery Respiratory Hx Respiratory Disorders: Yes Respiratory Disorders: COPD Cardiovascular Hx Cardiac Disorders: Yes (Chronic Anemia, mitral valve regurg,aortic valve dx , EJF 25%, stenosis) Cardiac Disorders: Chronic Edema/Swelling, Coronary Artery Disease, High Cholesterol, Hypertension, Peripheral Vascular, Valvular Heart Disease Neurological Hx Neurological Disorders: No Neurological Disorders: Neuropathy Reproductive System Hx Reproductive Disorders: No Sexually Transmitted Disease: No HIV/AIDS: No Genitourinary Hx Genitourinary Disorders: No Gastrointestinal Hx Gastrointestinal Disorders: No Gastrointestinal Disorders: Diverticulosis Musculoskeletal Hx Musculoskeletal Disorders: Yes (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 [facility] anticoag therapy.) Adverse Reaction to a Blood Tr: No Family Medical History Significant Family History: Heart Disease, Hypertension, Psychiatric Problems Family Medial History: Chest pain Family history: Cardiovascular disease Family history: Hypertension Hypercholesterolemia Myocardial infarction Psychotic disorder No Family History of: Abdominal aortic aneurysm Carter's disease Alcoholism Aphasia Cancer Cancer of colon Cataract Congenital heart disease Congestive heart failure Cystic fibrosis Dementia Dysphagia Family history: Allergy Family history: Alzheimer's disease Family history: Arthritis Family history: Asthma Family history: Breast disease Family history: Coronary thrombosis Family history: Diabetes mellitus Family history: Gastrointestinal disease Family history: Glaucoma Family history: Osteoporosis Family history: Thyroid disorder Headache Hearing loss Heart disease Hereditary disease History of - anemia History of - disorder History of - respiratory disease History of drug abuse Human immunodeficiency virus (HIV) seropositivity Infertile Kidney disease Malignant neoplasm of lung Parkinson's disease Prostate cancer Seizure disorder Stroke Tuberculosis Visual impairment Review of Systems-General Constitutional: no symptoms reported EENTM: no symptoms reported Respiratory: no symptoms reported Cardiovascular: no symptoms reported Gastrointestinal: no symptoms reported Genitourinary: no symptoms reported Physical Exam-General Problems Physical Exam Vital Signs Vital Sign - Last 12Hours 03/06/16 03/06/16 17:51 18:19 Temp 98.2 Pulse 70 Resp 16 B/P 115/61 Pulse Ox 95 O2 Delivery Room Air Capillary Refill : General Appearance: WD/WN no apparent distress Eyes: Bilateral Eye Normal Inspection HEENT: normal ENT inspection Neck: non-tender Respiratory: chest non-tender normal breath sounds no respiratory distress no accessory muscle use Cardiovascular: regular rate, rhythm no murmur Gastrointestinal: non tender soft Assessment/Plan Assessment/Plan Admission Diagnosis/Plan left AKA. Hyperlipidemia. Hypertension. PVD. CAD. Chronic systolic congestive heart failure. Previous tobacco usage Clinical Quality Measures DVT/VTE Risk/Contraindication: Risk Factor Score Per Nursin RFS Level Per Nursing on Admit: 4+=Very High MARCIA CHANDLER DO Mar 07, 2016 14:29
--- NOTE | 2016-03-07 15:24 | Therapy Group Daily Note ---
Therapy Daily Group Note Patient Education Topic Home Safety Exercises LE Seated Exercise, UE Exercise Other/Notes Pt transported with w/c to OT/PT group in [facility] area. Group consisted of introductions (name, place living, New Year's resolution), socialization, memory activity, ARU description, UE/LE seated exercises and home safety education. Pt participated in group and contributed to discussions appropriately Pt was able to complete UE/LE exercises. Pt demonstrated good memory during activity. After therapy, pt transported with w/c back to room then sat in w/c with call light/phone in reach. All needs met in room. Start Time: 13:00 Stop Time: 14:15 Total Billed Treatment Time: 75 Total Billed Treatment 1-GRP JON JACKSON Mar 07, 2016 15:24
[2016-03-07] MEDS ORDERED: HYDROcodone/APAP 10 MG/325 MG (LORTAB) TAB PO ONE (16:18)
[2016-03-07] MEDS: warFARin 5 MG (COUMADIN) TAB PO SCH (18:09)
[2016-03-07] MEDS: lisINopril 5 MG (PRINIVIL) TABLET PO SCH (18:09)
[2016-03-07 18:57] VITALS: BP 141/69
[2016-03-07] MEDS: ATORVASTATIN 40 MG (LIPITOR) TABLET PO SCH (20:46)
[2016-03-07] MEDS: HYDROcodone/APAP 10 MG/325 MG (LORTAB) TAB PO PRN (22:01)
[2016-03-08] MEDS: RT-ALBUTEROL/IPRATROPIUM 3 ML (DUONEB) VIAL INH SCH ×4 (02:55→19:38)
[2016-03-08 05:00] VITALS: BP 134/73
[2016-03-08] MEDS: PANTOPRAZOLE 40 MG (PROTONIX) TAB PO SCH (05:54)
[2016-03-08 06:32] LABS: PROTHROMBIN TIME PATIENT 22.7 SEC (12.2-14.7)
[2016-03-08] MEDS: MAGNESIUM OXIDE (MAG-OX)400 MG TAB PO SCH ×2 (07:23→17:31)
[2016-03-08] MEDS: GABAPENTIN 100 MG (NEURONTIN) CAP PO SCH ×3 (07:24→19:29)
[2016-03-08] MEDS: HYDROcodone/APAP 10 MG/325 MG (LORTAB) TAB PO PRN ×2 (07:24→19:30)
[2016-03-08] MEDS: CARVEDILOL 6.25 MG (COREG) TAB PO SCH ×2 (07:24→19:29)
--- NOTE | 2016-03-08 09:10 | Physical Therapy Daily Note ---
PT Daily Note-Current Subjective Patient is very agreeable to participate with PT. Patient has no c/o. Pain Numeric Pain Scale: 5-Moderate Pain Location: Left Location Body Site: Thigh Pain Description: Acute Comment: declined pain medication Mental Status Patient Orientation: Normal For Age Transfers Functional [place] Measure 0=Not Assessed/NA 4=Minimal Assistance 1=Total Assistance 5=Supervision or Setup 2=Maximal Assistance 6=Modified [place] 3=Moderate Assistance 7=Complete IndependenceIRFPAI Quality Coding Scale 6 Independent with activity with or without an assistive device 5 Patient requires set up or clean up by helper. Patient completes activity by themselves 4 Supervision or touching assist (CGA). [place] provide cues , steadying assist 3 The helper provides less than half the effort to complete the activity 2 The helper provides more than half the effort to complete the activity 1 Dependent. The helper does all the effort to complete an activity 7 Patient refused to complete or attempt activity 9 The patient did not perform the activity before the current illness or injury 88 Not attempted due to Medical conditions or safety concerns Transfers (B, C, W/C) (FIM): 5 Scootin Rollin Roll Left to Right (QC): 5 Supine to/from Sit: 5 Sit to/from Stand: 5 Sit to Lying (QC): 5 Sit to Stand (QC): 5 Chair/Xsw-uf-Ofnfr Xfer(QC): 5 Bed to/from Chair: 5 patient performed sit to stand x 10 reps, rolling supine to prone x 10 with stretching of bilateral hip flexors in prone Wheelchair Training Does the Pt Use a Wheelchair?: Yes Wheelchair (FIM): 5 Wheelchair Distance: 3=150 ft Distance: 150' x 4 Wheelchair Level of Assist: 5 Wheel 50 ft with 2 turns (QC): 5 Wheel 150 ft (QC): 5 Type of Wheelchair: Manual Exercises Supine Ex: LE Protocol (prone hip extension/abd/add x 15 reps), Bridging, Glut sets, Hip abd/add NuStep Minutes: 20 NuStep Workload: 5 Assessment Patient tolerated treatment well and is very motivated to perform activity as independently as possible. PT to increase activity as tolerated. PT Short Term Goals Short Term Goals Time Frame: Mar 14, 2016 Gait (FIM): 1 Gait Distance Comment: 20' Gait Level of Assist: 4 Gait Assistive Device: FWW Wheelchair Distance: 50' PT Blow Off Worker Goals Fpc Goals PT Blow Off Worker Goals Time Frame: Mar 28, 2016 Transfers (B,C,W/C) (FIM): 5 Sit to Lying (QC): 6 Lying-Sitting on Side/Bed(QC): 6 Sit to Stand (QC): 4 Rollin Roll Left to Right (QC): 6 Chair/Duj-dw-Poceh Xfer(QC): 4 Car Transfer (QC): 4 Does the Patient Walk: Yes Gait (FIM): 2 Distance: 50' Walk 10 feet (QC): 4 Walk 10ft-Uneven Surface(QC): 4 Walk 50ft with 2 Turns (QC): 4 Gait Level of Assist: 5 Gait Assistive Device: FWW Stairs (FIM): 1 # of Steps: 1 1 Step (curb) (QC): 4 Stairs Level Of Assist: 5 PT Plan Treatment/Plan Treatment Plan: Continue Plan of Care Treatment Plan: Bed Mobility, Education, Functional Activity Anuj, Functional Strength, Group Therapy, Gait, Safety, Therapeutic Exercise, Transfers Treatment Duration: Mar 28, 2016 Visits Per Week: 10-11 Minutes/Day (M-F): 60-90 Minutes/Day (Sat/Lo): 15-30 Time/GCodes Time In: 731 Time Out: 901 Total Billed Treatment Time: 90 Total Billed Treatment 1 visit EX x 4 65 min WCH x 2 25 min ANTWAN VASQUEZ PT Mar 08, 2016 09:10
--- NOTE | 2016-03-08 12:03 | Occupational Ther Daily Note ---
OT Current Status-Daily Note Subjective "I don't have clothes here right now, but I will call my sister and she can bring me some." Pain Numeric Pain Scale: 0-No Pain Appearance Patient seated in wheelchair at side of the bed. Agreeable to OT this am. Mental Status/Objective Patient Orientation: Person, Place, Situation Functional [place] Measure 0=Not Assessed/NA 4=Minimal Assistance 1=Total Assistance 5=Supervision or Setup 2=Maximal Assistance 6=Modified [place] 3=Moderate Assistance 7=Complete [place] ADL-Treatment Patient propelled self into the bathroom to complete hygiene with set up and upper body bathing and dressing with same once clothing arrived. Nursing assisted with lower body care due to OT out of the room. Functional [place] Measure 0=Not Assessed/NA 4=Minimal Assistance 1=Total Assistance 5=Supervision or Setup 2=Maximal Assistance 6=Modified [place] 3=Moderate Assistance 7=Complete IndependenceIRFPAI Quality Coding Scale 6 Independent with activity with or without an assistive device 5 Patient requires set up or clean up by helper. Patient completes activity by themselves 4 Supervision or touching assist (CGA). [place] provide cues , steadying assist 3 The helper provides less than half the effort to complete the activity 2 The helper provides more than half the effort to complete the activity 1 Dependent. The helper does all the effort to complete an activity 7 Patient refused to complete or attempt activity 9 The patient did not perform the activity before the current illness or injury 88 Not attempted due to Medical conditions or safety concerns Other Treatment Patient propelled self to the clinic to address upper body strength and endurance. Completed UBE at various speeds with rest breaks, followed by ledezma bag toss and balloon volleyball with 1# cuff weights to the wrist. He completed all gym work prior to doing ADL in his room. He independently propelled himself about the unit and in various hallways without problems. OT Short Term Goals Short Term Goals Time Frame: Mar 14, 2016 Lower Body Dressing(FIM): 5 Toileting(FIM): 5 Toilet/Commode Transfer(FIM): 5 Shower Transfer(FIM): 4 Additional Short Term Goals: 1-Demonstrate ADL Tasks, 2-Verbalize Understanding , 3-ImproveStrength/Anuj 1=Demonstrate adherence to instructed precautions during ADL tasks. 2=Patient will verbalize/demonstrate understanding of assistive devices/ modifications for ADL. 3=Patient will improve strength/tolerance for activity to enable patient to perform ADL's. OT Hris Specialist Goals [facility] Goals Time Frame: Mar 28, 2016 Eating (QC): 6 Oral Hygiene (QC): 6 Grooming(FIM): 6 Bathing(FIM): 5 Shower/Bathe Self (QC): 6 Upper Body Dressing(FIM): 6 Upper Body Dressing (QC): 6 Lower Body Dressing(FIM): 6 Lower Body Dressing (QC): 6 On/Off Footwear (QC): 6 Toileting(FIM): 6 Toileting Hygiene (QC): 6 Toilet/Commode Transfer(FIM): 6 Toilet/Commode Transfer (QC): 6 Shower Transfer(FIM): 5 Additional Goals: 1-Demonstrate ADL Tasks, 2-Verbalize Understanding, 3- ImproveStrength/Anuj 1=Demonstrate adherence to instructed precautions during ADL tasks. 2=Patient will verbalize/demonstrate understanding of assistive devices/ modifications for ADL. 3=Patient will improve strength/tolerance for activity to enable patient to perform ADL's. OT Education/Plan Problem List/Assessment Pt s/p left AKA with decreased mobility, ADL functioning, and activity tolerance. Pt to benefit from skilled OT intervention for ADL training, transfers, strengthening, and safety education to maximize level of function and allow safe discharge plan. Discharge Recommendations Plan/Recommendations: Continue POC Treatment Plan/Plan of Care Patient would benefit from OT for education, treatment and training to promote independence in ADL's, mobility, safety and/or upper extremity function for ADL' s. Plan of Care: ADL Retraining, Functional Mobility, Group Exercise/Act as Ind, UE Funct Exercise/Act Treatment Duration: Mar 28, 2016 Visits Per Week: 10-11 Minutes/Day (M-F): 60-90 Minutes/Day (Sat/Lo): PRN Agreement: Yes Rehab Potential: Good Time/GCodes Start Time: 09:04 Stop Time: 10:35 Total Time Billed (hr/min): 91 Billed Treatment Time Visit, ADL x 1, Ex x 3 DIYA KENNEDY OT Mar 08, 2016 12:03
[2016-03-08 17:17] VITALS: BP 119/68
[2016-03-08] MEDS: lisINopril 5 MG (PRINIVIL) TABLET PO SCH (17:31)
[2016-03-08] MEDS: warFARin 5 MG (COUMADIN) TAB PO SCH (17:31)
[2016-03-08] MEDS: ATORVASTATIN 40 MG (LIPITOR) TABLET PO SCH (19:29)
[2016-03-09] MEDS: HYDROcodone/APAP 10 MG/325 MG (LORTAB) TAB PO PRN ×3 (01:02→18:02)
[2016-03-09] MEDS: RT-ALBUTEROL/IPRATROPIUM 3 ML (DUONEB) VIAL INH SCH ×4 (02:29→20:31)
[2016-03-09 05:08] LABS: INR 2.5 (0.8-1.4); PROTHROMBIN TIME PATIENT 26.5 SEC (12.2-14.7)
[2016-03-09] MEDS: PANTOPRAZOLE 40 MG (PROTONIX) TAB PO SCH (05:39)
[2016-03-09 05:56] VITALS: BP 122/87
[2016-03-09] MEDS: CARVEDILOL 6.25 MG (COREG) TAB PO SCH ×2 (08:42→20:05)
[2016-03-09] MEDS: MAGNESIUM OXIDE (MAG-OX)400 MG TAB PO SCH ×2 (08:42→18:02)
[2016-03-09] MEDS: GABAPENTIN 100 MG (NEURONTIN) CAP PO SCH ×3 (08:42→20:05)
[2016-03-09 16:54] VITALS: BP 127/68
[2016-03-09] MEDS: lisINopril 5 MG (PRINIVIL) TABLET PO SCH (18:02)
[2016-03-09] MEDS: warFARin 5 MG (COUMADIN) TAB PO SCH (18:02)
[2016-03-09] MEDS: ATORVASTATIN 40 MG (LIPITOR) TABLET PO SCH (20:05)
[2016-03-10] MEDS: HYDROcodone/APAP 10 MG/325 MG (LORTAB) TAB PO PRN ×4 (03:37→23:27)
[2016-03-10 05:29] VITALS: BP 116/64
[2016-03-10] MEDS: PANTOPRAZOLE 40 MG (PROTONIX) TAB PO SCH (06:12)
[2016-03-10 06:38] LABS: INR 2.3 (0.8-1.4); PROTHROMBIN TIME PATIENT 25.3 SEC (12.2-14.7)
[2016-03-10] MEDS: GABAPENTIN 100 MG (NEURONTIN) CAP PO SCH ×3 (08:37→20:36)
[2016-03-10] MEDS: MAGNESIUM OXIDE (MAG-OX)400 MG TAB PO SCH ×2 (08:38→17:52)
[2016-03-10] MEDS: CARVEDILOL 6.25 MG (COREG) TAB PO SCH ×2 (08:38→20:36)
--- NOTE | 2016-03-10 12:05 | Occupational Ther Daily Note ---
OT Current Status-Daily Note Subjective Pt in bed, agrees to treatment. Pt reports 5/10 left LE pain. Mental Status/Objective Functional [place] Measure 0=Not Assessed/NA 4=Minimal Assistance 1=Total Assistance 5=Supervision or Setup 2=Maximal Assistance 6=Modified [place] 3=Moderate Assistance 7=Complete [place] ADL-Treatment Pt requests shower this am. RN present and wrapped left left residual limb. Supine to sit with supervision and increased time. Transfer to w/c with minimal assistance using FWW. To restroom via w/c. Transfer w/c <-> shower bench with minimal assistance using grab bar for balance and safety. Upper body bathing with SBA. Pt weight shifted left and right while seated to wash buttocks with CGA for balance. Pt able to wash bilateral LE. Dries with CGA for balance for LE. Don pullover shirt with set up. Pt donned shorts with minimal assistance for balance during standing for pant hike. Don right sock with setup. Comb hair with SBA. Functional [place] Measure 0=Not Assessed/NA 4=Minimal Assistance 1=Total Assistance 5=Supervision or Setup 2=Maximal Assistance 6=Modified [place] 3=Moderate Assistance 7=Complete IndependenceIRFPAI Quality Coding Scale 6 Independent with activity with or without an assistive device 5 Patient requires set up or clean up by helper. Patient completes activity by themselves 4 Supervision or touching assist (CGA). [place] provide cues , steadying assist 3 The helper provides less than half the effort to complete the activity 2 The helper provides more than half the effort to complete the activity 1 Dependent. The helper does all the effort to complete an activity 7 Patient refused to complete or attempt activity 9 The patient did not perform the activity before the current illness or injury 88 Not attempted due to Medical conditions or safety concerns Grooming (FIM): 5 Bathing (FIM): 4 Upper Body (FIM): 5 Lower Body Dressing (FIM): 4 Other Treatment Pt performed w/c mobility to therapy gym with SBA. Pt completed bilateral UE exercises to increase strength needed for ADLs and transfers. Pt performed shoulder flexion, abduction , biceps curls, and triceps extension exercises x20 reps with moderate resistance (red) theraband. Rest breaks between exercises. Pt returned to room, transferred to recliner with minimal assistance using FWW. Pt sitting in chair with needs met after session. OT Short Term Goals Short Term Goals Time Frame: Mar 14, 2016 Lower Body Dressing(FIM): 5 Toileting(FIM): 5 Toilet/Commode Transfer(FIM): 5 Shower Transfer(FIM): 4 Additional Short Term Goals: 1-Demonstrate ADL Tasks, 2-Verbalize Understanding , 3-ImproveStrength/Anuj 1=Demonstrate adherence to instructed precautions during ADL tasks. 2=Patient will verbalize/demonstrate understanding of assistive devices/ modifications for ADL. 3=Patient will improve strength/tolerance for activity to enable patient to perform ADL's. OT Internal Consultant Goals Internal Consultant Goals Time Frame: Mar 28, 2016 Eating (QC): 6 Oral Hygiene (QC): 6 Grooming(FIM): 6 Bathing(FIM): 5 Shower/Bathe Self (QC): 6 Upper Body Dressing(FIM): 6 Upper Body Dressing (QC): 6 Lower Body Dressing(FIM): 6 Lower Body Dressing (QC): 6 On/Off Footwear (QC): 6 Toileting(FIM): 6 Toileting Hygiene (QC): 6 Toilet/Commode Transfer(FIM): 6 Toilet/Commode Transfer (QC): 6 Shower Transfer(FIM): 5 Additional Goals: 1-Demonstrate ADL Tasks, 2-Verbalize Understanding, 3- ImproveStrength/Anuj 1=Demonstrate adherence to instructed precautions during ADL tasks. 2=Patient will verbalize/demonstrate understanding of assistive devices/ modifications for ADL. 3=Patient will improve strength/tolerance for activity to enable patient to perform ADL's. OT Education/Plan Problem List/Assessment Pt s/p left AKA with decreased mobility, ADL functioning, and activity tolerance. Pt to benefit from skilled OT intervention for ADL training, transfers, strengthening, and safety education to maximize level of function and allow safe discharge plan. Discharge Recommendations Plan/Recommendations: Continue POC Treatment Plan/Plan of Care Patient would benefit from OT for education, treatment and training to promote independence in ADL's, mobility, safety and/or upper extremity function for ADL' s. Plan of Care: ADL Retraining, Functional Mobility, Group Exercise/Act as Ind, UE Funct Exercise/Act Treatment Duration: Mar 28, 2016 Visits Per Week: 10-11 Minutes/Day (M-F): 60-90 Minutes/Day (Sat/Lo): PRN Agreement: Yes Rehab Potential: Good Time/GCodes Start Time: 09:15 Stop Time: 10:15 Total Time Billed (hr/min): 60 Billed Treatment Time 1 visit, ADLx3(45minutes), Ex(15minutes) TANIKA ZEPEDA OT Mar 10, 2016 12:05
--- NOTE | 2016-03-10 12:33 | Physical Therapy Daily Note ---
PT Daily Note-Current Subjective Pt sitting in recliner upon arrival. Pt reports feeling good today. Pt agrees to PT. Pain Numeric Pain Scale: 5-Moderate Pain Location: Right Location Body Site: Thigh Pain Description: Ache Comment: Pt reports ache in R stump while EX but no pain otherwise. Mental Status Patient Orientation: Person, Place, Time, Situation Transfers Functional [place] Measure 0=Not Assessed/NA 4=Minimal Assistance 1=Total Assistance 5=Supervision or Setup 2=Maximal Assistance 6=Modified [place] 3=Moderate Assistance 7=Complete IndependenceIRFPAI Quality Coding Scale 6 Independent with activity with or without an assistive device 5 Patient requires set up or clean up by helper. Patient completes activity by themselves 4 Supervision or touching assist (CGA). [place] provide cues , steadying assist 3 The helper provides less than half the effort to complete the activity 2 The helper provides more than half the effort to complete the activity 1 Dependent. The helper does all the effort to complete an activity 7 Patient refused to complete or attempt activity 9 The patient did not perform the activity before the current illness or injury 88 Not attempted due to Medical conditions or safety concerns Scootin Rollin Roll Left to Right (QC): 4 Supine to/from Sit: 4 Sit to/from Stand: 4 Sit to Lying (QC): 4 Sit to Stand (QC): 4 Chair/Mbn-yx-Hxksh Xfer(QC): 4 Bed to/from Chair: 4 Weight Bearing Weight Bearing Restriction: Full Weight Bearing Location Restriction: LE Bilateral Wheelchair Training Does the Pt Use a Wheelchair?: Yes Wheelchair Distance: 3=150 ft Distance: 200' Wheelchair Level of Assist: 6 Wheel 50 ft with 2 turns (QC): 6 Wheel 150 ft (QC): 6 Type of Wheelchair: Manual Exercises Supine Ex: Bridging (10 reps), Glut sets, Hip abd/add Supine Reps: 20 Treatments PT transfers from recliner to standing at [facility] using FWW. Pt SPT to W/C to propel in hallway. Pt propels W/C in hallway at Mod I to Therapy Gym. Pt transfers to EOB at SBA to rest before transferring at SBA to supine for EX. Pt completes supine EX on mat with rest break before rolling to prone for more EX of hip extensor stretching and hip AB/AD. Pt rests before transferring back to supine then EOB at SBA and EOB to standing at SBA for SPT to W/C. Pt then propelled back to room to rest at end of tx. Assessment Current Status: Good Progress Pt is improving with W/C mobility and is more independent with transfers. Pt continues to get stronger. PT Short Term Goals Short Term Goals Time Frame: Mar 14, 2016 Gait (FIM): 1 Gait Distance Comment: 20' Gait Level of Assist: 4 Gait Assistive Device: FWW Wheelchair Distance: 150' x 4 PT Carcass Washer Goals Intermediate Goals PT Carcass Washer Goals Time Frame: Mar 28, 2016 Transfers (B,C,W/C) (FIM): 5 Sit to Lying (QC): 6 Lying-Sitting on Side/Bed(QC): 6 Sit to Stand (QC): 4 Rollin Roll Left to Right (QC): 6 Chair/Gik-ws-Txpbm Xfer(QC): 4 Car Transfer (QC): 4 Does the Patient Walk: Yes Gait (FIM): 2 Distance: 50' Walk 10 feet (QC): 4 Walk 10ft-Uneven Surface(QC): 4 Walk 50ft with 2 Turns (QC): 4 Gait Level of Assist: 5 Gait Assistive Device: FWW Stairs (FIM): 1 # of Steps: 1 1 Step (curb) (QC): 4 Stairs Level Of Assist: 5 PT Plan Problem List Problem List: Activity Tolerance, Functional Strength, Safety, Balance, Gait, Transfer Treatment/Plan Treatment Plan: Continue Plan of Care Treatment Plan: Bed Mobility, Education, Functional Activity Anuj, Functional Strength, Group Therapy, Gait, Safety, Therapeutic Exercise, Transfers Treatment Duration: Mar 28, 2016 Visits Per Week: 10-11 Minutes/Day (M-F): 60-90 Minutes/Day (Sat/Lo): 15-30 Safety Risks/Education Patient Education: Gait Training, Transfer Techniques, Correct Positioning, Safety Issues Teaching Recipient: Patient Teaching Methods: Discussion Response to Teaching: Verbalize Understanding Time/GCodes Time In: 1030 Time Out: 1130 Total Billed Treatment Time: 60 Total Billed Treatment visit, [facility] (15m), FA (15m) & EX X2 (30m) ISABEL LAWRENCE TIMBER SIZER Mar 10, 2016 12:33
--- NOTE | 2016-03-10 13:44 | Physical Therapy Daily Note ---
PT Daily Note-Current Subjective Patient is up in w/c and agrees to therapy. No c/o at this time. Pain Numeric Pain Scale: 0-No Pain Location: No Pain Reported Mental Status Patient Orientation: Normal For Age Transfers Functional [place] Measure 0=Not Assessed/NA 4=Minimal Assistance 1=Total Assistance 5=Supervision or Setup 2=Maximal Assistance 6=Modified [place] 3=Moderate Assistance 7=Complete IndependenceIRFPAI Quality Coding Scale 6 Independent with activity with or without an assistive device 5 Patient requires set up or clean up by helper. Patient completes activity by themselves 4 Supervision or touching assist (CGA). [place] provide cues , steadying assist 3 The helper provides less than half the effort to complete the activity 2 The helper provides more than half the effort to complete the activity 1 Dependent. The helper does all the effort to complete an activity 7 Patient refused to complete or attempt activity 9 The patient did not perform the activity before the current illness or injury 88 Not attempted due to Medical conditions or safety concerns Transfers (B, C, W/C) (FIM): 5 Scootin Sit to/from Stand: 5 Sit to Stand (QC): 5 SBA with all sit to stand transfers. Patient donned pants in w/c then sit to stand to FWW to pull up pants Wheelchair Training Does the Pt Use a Wheelchair?: Yes Wheelchair (FIM): 5 Wheelchair Distance: 3=150 ft Distance: 400' Wheelchair Level of Assist: 5 Wheel 50 ft with 2 turns (QC): 5 Wheel 150 ft (QC): 5 Type of Wheelchair: Manual Exercises NuStep Minutes: 15 NuStep Workload: 5 Assessment Patient is progressing with treatment and is motivated to return to home DEMET[facility]. PT Short Term Goals Short Term Goals Time Frame: Mar 14, 2016 Gait (FIM): 1 Gait Distance Comment: 20' Gait Level of Assist: 4 Gait Assistive Device: FWW Wheelchair Distance: 200' PT Usp Goals Usp Goals PT Supervisor Beam Department Goals Time Frame: Mar 28, 2016 Transfers (B,C,W/C) (FIM): 5 Sit to Lying (QC): 6 Lying-Sitting on Side/Bed(QC): 6 Sit to Stand (QC): 4 Rollin Roll Left to Right (QC): 6 Chair/Fzw-fc-Lvdkd Xfer(QC): 4 Car Transfer (QC): 4 Does the Patient Walk: Yes Gait (FIM): 2 Distance: 50' Walk 10 feet (QC): 4 Walk 10ft-Uneven Surface(QC): 4 Walk 50ft with 2 Turns (QC): 4 Gait Level of Assist: 5 Gait Assistive Device: FWW Stairs (FIM): 1 # of Steps: 1 1 Step (curb) (QC): 4 Stairs Level Of Assist: 5 PT Plan Treatment/Plan Treatment Plan: Continue Plan of Care Treatment Plan: Bed Mobility, Education, Functional Activity Anuj, Functional Strength, Group Therapy, Gait, Safety, Therapeutic Exercise, Transfers Treatment Duration: Mar 28, 2016 Visits Per Week: 10-11 Minutes/Day (M-F): 60-90 Minutes/Day (Sat/Lo): 15-30 Time/GCodes Time In: 1235 Time Out: 1305 Total Billed Treatment Time: 30 Total Billed Treatment 1 visit [facility] 10 min EX 20 min ANTWAN VASQUEZ PT Mar 10, 2016 13:44
--- NOTE | 2016-03-10 14:05 | Occupational Ther Daily Note ---
OT Current Status-Daily Note Subjective Pt sitting in w/c, agrees to treatment. Mental Status/Objective Functional [place] Measure 0=Not Assessed/NA 4=Minimal Assistance 1=Total Assistance 5=Supervision or Setup 2=Maximal Assistance 6=Modified [place] 3=Moderate Assistance 7=Complete [place] ADL-Treatment Functional [place] Measure 0=Not Assessed/NA 4=Minimal Assistance 1=Total Assistance 5=Supervision or Setup 2=Maximal Assistance 6=Modified [place] 3=Moderate Assistance 7=Complete IndependenceIRFPAI Quality Coding Scale 6 Independent with activity with or without an assistive device 5 Patient requires set up or clean up by helper. Patient completes activity by themselves 4 Supervision or touching assist (CGA). [place] provide cues , steadying assist 3 The helper provides less than half the effort to complete the activity 2 The helper provides more than half the effort to complete the activity 1 Dependent. The helper does all the effort to complete an activity 7 Patient refused to complete or attempt activity 9 The patient did not perform the activity before the current illness or injury 88 Not attempted due to Medical conditions or safety concerns Other Treatment W/c mobility to therapy gym without assistance. Arm bike x10 minutes to increase overall strength and activity tolerance. Pt performed task with moderate resistance and slow pace, no rest breaks needed. Pt performed tabletop peg activity with bilateral hand wit h1# weights in place to increase strength needed for ADLs and transfers. Pt completed fine motor activity with nuts and bolts with 1# weights in place on bilateral UE to increase strength and coordination/manipulation skills. Pt returned to room, transferred w/c to EOB with CGA. Sit to supine with supervision and increased time. Pt in bed with needs met after session. OT Short Term Goals Short Term Goals Time Frame: Mar 14, 2016 Lower Body Dressing(FIM): 5 Toileting(FIM): 5 Toilet/Commode Transfer(FIM): 5 Shower Transfer(FIM): 4 Additional Short Term Goals: 1-Demonstrate ADL Tasks, 2-Verbalize Understanding , 3-ImproveStrength/Anuj 1=Demonstrate adherence to instructed precautions during ADL tasks. 2=Patient will verbalize/demonstrate understanding of assistive devices/ modifications for ADL. 3=Patient will improve strength/tolerance for activity to enable patient to perform ADL's. OT Unit Coordinator Goals Unit Coordinator Goals Time Frame: Mar 28, 2016 Eating (QC): 6 Oral Hygiene (QC): 6 Grooming(FIM): 6 Bathing(FIM): 5 Shower/Bathe Self (QC): 6 Upper Body Dressing(FIM): 6 Upper Body Dressing (QC): 6 Lower Body Dressing(FIM): 6 Lower Body Dressing (QC): 6 On/Off Footwear (QC): 6 Toileting(FIM): 6 Toileting Hygiene (QC): 6 Toilet/Commode Transfer(FIM): 6 Toilet/Commode Transfer (QC): 6 Shower Transfer(FIM): 5 Additional Goals: 1-Demonstrate ADL Tasks, 2-Verbalize Understanding, 3- ImproveStrength/Anuj 1=Demonstrate adherence to instructed precautions during ADL tasks. 2=Patient will verbalize/demonstrate understanding of assistive devices/ modifications for ADL. 3=Patient will improve strength/tolerance for activity to enable patient to perform ADL's. OT Education/Plan Problem List/Assessment Pt s/p left AKA with decreased mobility, ADL functioning, and activity tolerance. Pt to benefit from skilled OT intervention for ADL training, transfers, strengthening, and safety education to maximize level of function and allow safe discharge plan. Discharge Recommendations Plan/Recommendations: Continue POC Treatment Plan/Plan of Care Patient would benefit from OT for education, treatment and training to promote independence in ADL's, mobility, safety and/or upper extremity function for ADL' s. Plan of Care: ADL Retraining, Functional Mobility, Group Exercise/Act as Ind, UE Funct Exercise/Act Treatment Duration: Mar 28, 2016 Visits Per Week: 10-11 Minutes/Day (M-F): 60-90 Minutes/Day (Sat/Lo): PRN Agreement: Yes Rehab Potential: Good Time/GCodes Start Time: 13:20 Stop Time: 13:50 Total Time Billed (hr/min): 30 Billed Treatment Time 1 visit, EXx2(30minutes) TANIKA ZEPEDA OT Mar 10, 2016 14:05
[2016-03-10] MEDS: lisINopril 5 MG (PRINIVIL) TABLET PO SCH (17:52)
[2016-03-10] MEDS: warFARin 5 MG (COUMADIN) TAB PO SCH (17:52)
[2016-03-10 18:15] VITALS: BP 123/63
[2016-03-10] MEDS: ATORVASTATIN 40 MG (LIPITOR) TABLET PO SCH (20:36)
[2016-03-11] MEDS: PANTOPRAZOLE 40 MG (PROTONIX) TAB PO SCH (06:07)
[2016-03-11 06:12] VITALS: BP 106/64
[2016-03-11 06:30] LABS: INR 3.1 (0.8-1.4); PROTHROMBIN TIME PATIENT 31.9 SEC (12.2-14.7)
[2016-03-11] MEDS: HYDROcodone/APAP 10 MG/325 MG (LORTAB) TAB PO PRN ×4 (08:12→21:08)
[2016-03-11] MEDS: CARVEDILOL 6.25 MG (COREG) TAB PO SCH ×2 (08:12→21:08)
[2016-03-11] MEDS: GABAPENTIN 100 MG (NEURONTIN) CAP PO SCH ×3 (08:12→21:08)
[2016-03-11] MEDS: MAGNESIUM OXIDE (MAG-OX)400 MG TAB PO SCH ×2 (08:12→17:04)
--- NOTE | 2016-03-11 11:27 | Physical Therapy Daily Note ---
PT Daily Note-Current Subjective Pt. agrees to Rx. States initially his pain is 6/10. Pt. asked to do slow careful therex and TRFs and then practiced some meditation during the Rx and reduced pain c/o to 4/10. Pt; states he has always been a loner and prefers to continue. Pain Numeric Pain Scale: 6 Location: Left Location Body Site: Thigh Pain Description: Burning Mental Status Patient Orientation: Normal For Age Transfers Functional [place] Measure 0=Not Assessed/NA 4=Minimal Assistance 1=Total Assistance 5=Supervision or Setup 2=Maximal Assistance 6=Modified [place] 3=Moderate Assistance 7=Complete IndependenceIRFPAI Quality Coding Scale 6 Independent with activity with or without an assistive device 5 Patient requires set up or clean up by helper. Patient completes activity by themselves 4 Supervision or touching assist (CGA). [place] provide cues , steadying assist 3 The helper provides less than half the effort to complete the activity 2 The helper provides more than half the effort to complete the activity 1 Dependent. The helper does all the effort to complete an activity 7 Patient refused to complete or attempt activity 9 The patient did not perform the activity before the current illness or injury 88 Not attempted due to Medical conditions or safety concerns Transfers (B, C, W/C) (FIM): 5 Scootin Rollin Supine to/from Sit: 6 Sit to/from Stand: 5 Bed to/from Chair: 5 Wheelchair Training Does the Pt Use a Wheelchair?: Yes Wheelchair (FIM): 6 Wheelchair Distance: 3=150 ft (200x2) Wheelchair Level of Assist: 6 Type of Wheelchair: Manual Exercises Supine Ex: Bridging, Ankle pumps, Quad Set, Rolling, Glut sets, Heel Slides, Short Arc Quads, Scooting, Straight leg raise, Hip abd/add Supine Reps: 15 Treatments slow movement this Rx as pt. states pain elevates with movement. no LOB with several w/c to mat TRFs toward left and right Assessment Current Status: Good Progress pts. right foot and leg inspected , all clear pink skin etc. PT Short Term Goals Short Term Goals Time Frame: Mar 14, 2016 Gait (FIM): 1 Gait Distance Comment: 20' Gait Level of Assist: 4 Gait Assistive Device: FWW Wheelchair Distance: 400' PT Scale Technician Goals Scale Technician Goals PT Mcfp Goals Time Frame: Mar 28, 2016 Transfers (B,C,W/C) (FIM): 5 Sit to Lying (QC): 6 Lying-Sitting on Side/Bed(QC): 6 Sit to Stand (QC): 4 Rollin Roll Left to Right (QC): 6 Chair/Bdk-xn-Snrwu Xfer(QC): 4 Car Transfer (QC): 4 Does the Patient Walk: Yes Gait (FIM): 2 Distance: 50' Walk 10 feet (QC): 4 Walk 10ft-Uneven Surface(QC): 4 Walk 50ft with 2 Turns (QC): 4 Gait Level of Assist: 5 Gait Assistive Device: FWW Stairs (FIM): 1 # of Steps: 1 1 Step (curb) (QC): 4 Stairs Level Of Assist: 5 PT Plan Treatment/Plan Treatment Plan: Continue Plan of Care Treatment Plan: Bed Mobility, Education, Functional Activity Anuj, Functional Strength, Group Therapy, Gait, Safety, Therapeutic Exercise, Transfers Treatment Duration: Mar 28, 2016 Visits Per Week: 10-11 Minutes/Day (M-F): 60-90 Minutes/Day (Sat/Lo): 15-30 Safety Risks/Education Patient Education: Transfer Techniques, Issued Written HEP, Correct Positioning , W/C Management, Safety Issues Teaching Recipient: Patient Teaching Methods: Demonstration, Discussion Response to Teaching: Verbalize Understanding, Return Demonstration, Reinforcement Needed Time/GCodes Time In: 1030 Time Out: 1130 Total Billed Treatment Time: 60 Total Billed Treatment 1,FA30m,EX30m G Codes Necessary: MERLYN Huggins WOOD CASKET MAKER Mar 11, 2016 11:27
--- NOTE | 2016-03-11 11:38 | Occupational Ther Daily Note ---
OT Current Status-Daily Note Subjective Pt in bed, states he doesn't really feel like doing anything today. Agrees to treatment with encouragement. Pt reports 3/10 pain in left LE Mental Status/Objective Functional [place] Measure 0=Not Assessed/NA 4=Minimal Assistance 1=Total Assistance 5=Supervision or Setup 2=Maximal Assistance 6=Modified [place] 3=Moderate Assistance 7=Complete [place] ADL-Treatment Pt refused all ADLs today. Functional [place] Measure 0=Not Assessed/NA 4=Minimal Assistance 1=Total Assistance 5=Supervision or Setup 2=Maximal Assistance 6=Modified [place] 3=Moderate Assistance 7=Complete IndependenceIRFPAI Quality Coding Scale 6 Independent with activity with or without an assistive device 5 Patient requires set up or clean up by helper. Patient completes activity by themselves 4 Supervision or touching assist (CGA). [place] provide cues , steadying assist 3 The helper provides less than half the effort to complete the activity 2 The helper provides more than half the effort to complete the activity 1 Dependent. The helper does all the effort to complete an activity 7 Patient refused to complete or attempt activity 9 The patient did not perform the activity before the current illness or injury 88 Not attempted due to Medical conditions or safety concerns Other Treatment Supine to sit with supervision and increased time. Transfer EOB to w/c with SBA using FWW. Pt performed w/c mobility to therapy gym without assistance. Pt performed bilateral UE exercises to increase strength needed for ADLs and transfers. Pt completed shoulder flexion, forward press, overhead press, biceps curls and wrist flex/ext x20 reps with 2# dowel. Rest breaks between exercises. Chair pushups x2 sets of 10 to increase strength for transfers. Arm bike x15 minutes to increase overall strength and activity tolerance. Pt completed task with moderate resistance and slow pace. No rest breaks required. Graded clothespin activity with bilateral hands to increase technical service specialist/pinch strength. Arc activity with bilateral UE with 2# weights in place. Rest breaks between sets. Pt performed standing ledezma bag toss to increase balance for ADLs such as pant hike. Pt completed task using bilateral UE, required SBA for balance. Pt fatigues with activity and requires occasional rest breaks. Pt performed w/c mobility back to room with increased time. Pt sitting in w/c with needs met after session. OT Short Term Goals Short Term Goals Time Frame: Mar 14, 2016 Lower Body Dressing(FIM): 5 Toileting(FIM): 5 Toilet/Commode Transfer(FIM): 5 Shower Transfer(FIM): 4 Additional Short Term Goals: 1-Demonstrate ADL Tasks, 2-Verbalize Understanding , 3-ImproveStrength/Anuj 1=Demonstrate adherence to instructed precautions during ADL tasks. 2=Patient will verbalize/demonstrate understanding of assistive devices/ modifications for ADL. 3=Patient will improve strength/tolerance for activity to enable patient to perform ADL's. OT Regional Merchandising Manager Goals Mcc Goals Time Frame: Mar 28, 2016 Eating (QC): 6 Oral Hygiene (QC): 6 Grooming(FIM): 6 Bathing(FIM): 5 Shower/Bathe Self (QC): 6 Upper Body Dressing(FIM): 6 Upper Body Dressing (QC): 6 Lower Body Dressing(FIM): 6 Lower Body Dressing (QC): 6 On/Off Footwear (QC): 6 Toileting(FIM): 6 Toileting Hygiene (QC): 6 Toilet/Commode Transfer(FIM): 6 Toilet/Commode Transfer (QC): 6 Shower Transfer(FIM): 5 Additional Goals: 1-Demonstrate ADL Tasks, 2-Verbalize Understanding, 3- ImproveStrength/Anuj 1=Demonstrate adherence to instructed precautions during ADL tasks. 2=Patient will verbalize/demonstrate understanding of assistive devices/ modifications for ADL. 3=Patient will improve strength/tolerance for activity to enable patient to perform ADL's. OT Education/Plan Problem List/Assessment Pt s/p left AKA with decreased mobility, ADL functioning, and activity tolerance. Pt to benefit from skilled OT intervention for ADL training, transfers, strengthening, and safety education to maximize level of function and allow safe discharge plan. Discharge Recommendations Plan/Recommendations: Continue POC Treatment Plan/Plan of Care Patient would benefit from OT for education, treatment and training to promote independence in ADL's, mobility, safety and/or upper extremity function for ADL' s. Plan of Care: ADL Retraining, Functional Mobility, Group Exercise/Act as Ind, UE Funct Exercise/Act Treatment Duration: Mar 28, 2016 Visits Per Week: 10-11 Minutes/Day (M-F): 60-90 Minutes/Day (Sat/Lo): PRN Agreement: Yes Rehab Potential: Good Time/GCodes Start Time: 09:00 Stop Time: 10:30 Total Time Billed (hr/min): 90 Billed Treatment Time 1 visit, FAx2(30minutes), EXx4(60minutes) TANIKA ZEPEDA OT Mar 11, 2016 11:38
--- NOTE | 2016-03-11 14:26 | Physical Therapy Daily Note ---
PT Daily Note-Current Subjective States his pain was a 6/10 at one point during Rx but now after Rx is 4/10 Pain Numeric Pain Scale: 4 Location: Left Location Body Site: Thigh Pain Description: Burning Appearance during exercise and Rx pr. is noted to use meditation techniques with some notable success Transfers Functional [place] Measure 0=Not Assessed/NA 4=Minimal Assistance 1=Total Assistance 5=Supervision or Setup 2=Maximal Assistance 6=Modified [place] 3=Moderate Assistance 7=Complete IndependenceIRFPAI Quality Coding Scale 6 Independent with activity with or without an assistive device 5 Patient requires set up or clean up by helper. Patient completes activity by themselves 4 Supervision or touching assist (CGA). [place] provide cues , steadying assist 3 The helper provides less than half the effort to complete the activity 2 The helper provides more than half the effort to complete the activity 1 Dependent. The helper does all the effort to complete an activity 7 Patient refused to complete or attempt activity 9 The patient did not perform the activity before the current illness or injury 88 Not attempted due to Medical conditions or safety concerns Wheelchair Training Type of Wheelchair: Manual fig 8s and tight turns, grades, in out doors all indep Exercises Standing: Hip Abduction, 3 way Ex=Flex, Abd, Ext Standing Reps: 15 Assessment Current Status: Good Progress PT Short Term Goals Short Term Goals Time Frame: Mar 14, 2016 Gait (FIM): 1 Gait Distance Comment: 20' Gait Level of Assist: 4 Gait Assistive Device: FWW Wheelchair Distance: 400' PT [place] Department Supervisor Goals Mcfp Goals PT [place] Department Supervisor Goals Time Frame: Mar 28, 2016 Transfers (B,C,W/C) (FIM): 5 Sit to Lying (QC): 6 Lying-Sitting on Side/Bed(QC): 6 Sit to Stand (QC): 4 Rollin Roll Left to Right (QC): 6 Chair/Vhc-ua-Najca Xfer(QC): 4 Car Transfer (QC): 4 Does the Patient Walk: Yes Gait (FIM): 2 Distance: 50' Walk 10 feet (QC): 4 Walk 10ft-Uneven Surface(QC): 4 Walk 50ft with 2 Turns (QC): 4 Gait Level of Assist: 5 Gait Assistive Device: FWW Stairs (FIM): 1 # of Steps: 1 1 Step (curb) (QC): 4 Stairs Level Of Assist: 5 PT Plan Treatment/Plan Treatment Plan: Continue Plan of Care Treatment Plan: Bed Mobility, Education, Functional Activity Anuj, Functional Strength, Group Therapy, Gait, Safety, Therapeutic Exercise, Transfers Treatment Duration: Mar 28, 2016 Visits Per Week: 10-11 Minutes/Day (M-F): 60-90 Minutes/Day (Sat/Lo): 15-30 Safety Risks/Education Patient Education: Transfer Techniques, Correct Positioning, W/C Management, Safety Issues Teaching Recipient: Patient Teaching Methods: Demonstration, Discussion Response to Teaching: Verbalize Understanding, Return Demonstration, Reinforcement Needed Time/GCodes Time In: 1400 Time Out: 1430 Total Billed Treatment Time: 30 Total Billed Treatment 1,EX15m,WHC15m G Codes Necessary: MERLYN Huggins POLISHING MACHINE TENDER Mar 11, 2016 14:26
[2016-03-11] MEDS: lisINopril 5 MG (PRINIVIL) TABLET PO SCH (17:04)
[2016-03-11] MEDS: warFARin 5 MG (COUMADIN) TAB PO SCH (17:04)
--- NOTE | 2016-03-11 17:36 | PM & R (SOAP) Progress Note ---
Subjective Subjective/Events-last exam Patient was seen in his room this evening Appreciate therapy notes and current labs inluding INR Patient SBA for transfers and W/C propulsion Appreciate Dr ugarte consult. Objective Exam Last Set of Vital Signs Vital Signs Date Time Temp Pulse Resp B/P Pulse Ox O2 Delivery O2 Flow Rate FiO2 03/11/16 09:00 96 Room Air 03/11/16 06:12 98.1 60 18 106/64 Capillary Refill : I&O Intake and Output 03/11/16 00:00 Intake Total 1370 ml Output Total 1300 ml Balance 70 ml Intake Oral 1370 ml Output Urine Total 1300 ml General: Alert, Oriented X3, Cooperative, No Acute Distress HEENT: Atraumatic, PERRLA, EOMI, Mucous Memb Moist/[place] Neck: Supple, No JVD Lungs: Clear to Auscultation Heart: Regular Rate Abdomen: Normal Bowel Sounds, Soft, No Tenderness Extremities: Other (left AKa wrapped and no edema or calf tenderness rt leg) Neuro: Other (Functional strength Cognitively intact) Results Lab Laboratory Tests 03/09/16 04:07: INR Comment 2.5H, Prothrombin Time 26.5H 03/10/16 05:20: INR Comment 2.3H, Prothrombin Time 25.3H 03/11/16 06:12: INR Comment 3.1H, Prothrombin Time 31.9H Assessment/Plan Assessment Left AKA DR Guillermo Dillon for sever PVD Postop anmeia Hyponatremia Chronic anticoagulation on coumadin with theraaaaaapeutic INR HTN controlled COPD on inhalers S/.P AVR 2004 Cardiomyopathy with EF 25% followed by Dr Solis in past Plan Continue PT/OT/Wound care and pain management TEam Conference tomorrow Recheck Labs-done patient with hyponatremia and INR slightly above therapeutic levels F/U with Dr Alvarez PCP Adjust coumadin dosage as needed CHARLIE VARGAS MD Mar 11, 2016 17:36
[2016-03-11 18:00] VITALS: BP 113/60
[2016-03-11] MEDS: ATORVASTATIN 40 MG (LIPITOR) TABLET PO SCH (21:08)
[2016-03-12] MEDS: HYDROcodone/APAP 10 MG/325 MG (LORTAB) TAB PO PRN ×3 (01:36→16:58)
[2016-03-12] MEDS: PANTOPRAZOLE 40 MG (PROTONIX) TAB PO SCH (05:49)
[2016-03-12 05:52] VITALS: BP 121/71
[2016-03-12] MEDS: GABAPENTIN 100 MG (NEURONTIN) CAP PO SCH ×3 (08:15→20:14)
[2016-03-12] MEDS: CARVEDILOL 6.25 MG (COREG) TAB PO SCH ×2 (08:15→20:14)
[2016-03-12] MEDS: MAGNESIUM OXIDE (MAG-OX)400 MG TAB PO SCH ×2 (08:15→18:08)
--- NOTE | 2016-03-12 09:04 | Physical Therapy Daily Note ---
PT Daily Note-Current Subjective Pt. agrees to Rx. Feels well today. Pain Numeric Pain Scale: 0-No Pain Mental Status Patient Orientation: Normal For Age Transfers Functional [place] Measure 0=Not Assessed/NA 4=Minimal Assistance 1=Total Assistance 5=Supervision or Setup 2=Maximal Assistance 6=Modified [place] 3=Moderate Assistance 7=Complete IndependenceIRFPAI Quality Coding Scale 6 Independent with activity with or without an assistive device 5 Patient requires set up or clean up by helper. Patient completes activity by themselves 4 Supervision or touching assist (CGA). [place] provide cues , steadying assist 3 The helper provides less than half the effort to complete the activity 2 The helper provides more than half the effort to complete the activity 1 Dependent. The helper does all the effort to complete an activity 7 Patient refused to complete or attempt activity 9 The patient did not perform the activity before the current illness or injury 88 Not attempted due to Medical conditions or safety concerns Transfers (B, C, W/C) (FIM): 5 Scootin Rollin Supine to/from Sit: 6 Sit to/from Stand: 5 Bed to/from Chair: 5 Wheelchair Training Does the Pt Use a Wheelchair?: Yes Wheelchair (FIM): 6 Wheelchair Distance: 3=150 ft (500x2) Wheelchair Level of Assist: 6 Type of Wheelchair: Manual up down 75ft ramp x2 indep. in out doors and on off elevator indep Exercises Standin way Ex=Flex, Abd, Ext Standing Reps: 15 NuStep Minutes: 12 NuStep Workload: 3 Assessment Current Status: Good Progress PT Short Term Goals Short Term Goals Time Frame: Mar 14, 2016 Gait (FIM): 1 Gait Distance Comment: 20' Gait Level of Assist: 4 Gait Assistive Device: FWW Wheelchair Distance: 400' PT [place] Charger Goals Half-Way Goals PT Half-Way Goals Time Frame: Mar 28, 2016 Transfers (B,C,W/C) (FIM): 5 Sit to Lying (QC): 6 Lying-Sitting on Side/Bed(QC): 6 Sit to Stand (QC): 4 Rollin Roll Left to Right (QC): 6 Chair/Jbs-eb-Ycria Xfer(QC): 4 Car Transfer (QC): 4 Does the Patient Walk: Yes Gait (FIM): 2 Distance: 50' Walk 10 feet (QC): 4 Walk 10ft-Uneven Surface(QC): 4 Walk 50ft with 2 Turns (QC): 4 Gait Level of Assist: 5 Gait Assistive Device: FWW Stairs (FIM): 1 # of Steps: 1 1 Step (curb) (QC): 4 Stairs Level Of Assist: 5 PT Plan Treatment/Plan Treatment Plan: Continue Plan of Care Treatment Plan: Bed Mobility, Education, Functional Activity Anuj, Functional Strength, Group Therapy, Gait, Safety, Therapeutic Exercise, Transfers Treatment Duration: Mar 28, 2016 Visits Per Week: 10-11 Minutes/Day (M-F): 60-90 Minutes/Day (Sat/Lo): 15-30 Safety Risks/Education Patient Education: Transfer Techniques, Correct Positioning, W/C Management, Safety Issues Teaching Recipient: Patient Teaching Methods: Demonstration, Discussion Response to Teaching: Verbalize Understanding, Return Demonstration, Reinforcement Needed Time/GCodes Time In: 800 Time Out: 900 Total Billed Treatment Time: 60 Total Billed Treatment 1,whc20m,EX25m,FA15m G Codes Necessary: MERLYN Huggins IN FLIGHT TECHNICIAN Mar 12, 2016 09:04
--- NOTE | 2016-03-12 11:09 | Occupational Ther Daily Note ---
OT Current Status-Daily Note Subjective Pt sitting in w/c, agrees to treatment. 5/10 left LE pain reported. Mental Status/Objective Functional [place] Measure 0=Not Assessed/NA 4=Minimal Assistance 1=Total Assistance 5=Supervision or Setup 2=Maximal Assistance 6=Modified [place] 3=Moderate Assistance 7=Complete [place] ADL-Treatment Pt refused all ADLs today, states he already took a sponge bath and dressed this morning. Agrees to take a shower tomorrow. Functional [place] Measure 0=Not Assessed/NA 4=Minimal Assistance 1=Total Assistance 5=Supervision or Setup 2=Maximal Assistance 6=Modified [place] 3=Moderate Assistance 7=Complete IndependenceIRFPAI Quality Coding Scale 6 Independent with activity with or without an assistive device 5 Patient requires set up or clean up by helper. Patient completes activity by themselves 4 Supervision or touching assist (CGA). [place] provide cues , steadying assist 3 The helper provides less than half the effort to complete the activity 2 The helper provides more than half the effort to complete the activity 1 Dependent. The helper does all the effort to complete an activity 7 Patient refused to complete or attempt activity 9 The patient did not perform the activity before the current illness or injury 88 Not attempted due to Medical conditions or safety concerns Other Treatment Pt propelled w/c to therapy gym without assistance. Pt performed bilateral UE exercises to increase strength needed for ADLs and transfers. Pt completed shoulder flexion, abduction, horizontal abduction, biceps curls, and triceps extension exercises x20 reps with moderate resistance (Red) theraband. Rest breaks between exercises. Pt completed tabletop peg activity with bilateral UE with 2# weights in place to increase strength and activity tolerance. Fine motor activity with nuts and bolts with 2# weights in place to increase strength and fine motor coordination. Arm bike x10 minutes to improve overall strength and activity tolerance for functional tasks. Pt completed activity with moderate resistance and steady pace. No rest breaks required. Pt returned to room, transferred w/c to EOB with supervision. Pt sitting EOB with needs met after session. OT Short Term Goals Short Term Goals Time Frame: Mar 14, 2016 Lower Body Dressing(FIM): 5 Toileting(FIM): 5 Toilet/Commode Transfer(FIM): 5 Shower Transfer(FIM): 4 Additional Short Term Goals: 1-Demonstrate ADL Tasks, 2-Verbalize Understanding , 3-ImproveStrength/Anuj 1=Demonstrate adherence to instructed precautions during ADL tasks. 2=Patient will verbalize/demonstrate understanding of assistive devices/ modifications for ADL. 3=Patient will improve strength/tolerance for activity to enable patient to perform ADL's. OT Prison Goals [place] Goals Time Frame: Mar 28, 2016 Eating (QC): 6 Oral Hygiene (QC): 6 Grooming(FIM): 6 Bathing(FIM): 5 Shower/Bathe Self (QC): 6 Upper Body Dressing(FIM): 6 Upper Body Dressing (QC): 6 Lower Body Dressing(FIM): 6 Lower Body Dressing (QC): 6 On/Off Footwear (QC): 6 Toileting(FIM): 6 Toileting Hygiene (QC): 6 Toilet/Commode Transfer(FIM): 6 Toilet/Commode Transfer (QC): 6 Shower Transfer(FIM): 5 Additional Goals: 1-Demonstrate ADL Tasks, 2-Verbalize Understanding, 3- ImproveStrength/Anuj 1=Demonstrate adherence to instructed precautions during ADL tasks. 2=Patient will verbalize/demonstrate understanding of assistive devices/ modifications for ADL. 3=Patient will improve strength/tolerance for activity to enable patient to perform ADL's. OT Education/Plan Problem List/Assessment Pt s/p left AKA with decreased mobility, ADL functioning, and activity tolerance. Pt to benefit from skilled OT intervention for ADL training, transfers, strengthening, and safety education to maximize level of function and allow safe discharge plan. Discharge Recommendations Plan/Recommendations: Continue POC Treatment Plan/Plan of Care Patient would benefit from OT for education, treatment and training to promote independence in ADL's, mobility, safety and/or upper extremity function for ADL' s. Plan of Care: ADL Retraining, Functional Mobility, Group Exercise/Act as Ind, UE Funct Exercise/Act Treatment Duration: Mar 28, 2016 Visits Per Week: 10-11 Minutes/Day (M-F): 60-90 Minutes/Day (Sat/Lo): PRN Agreement: Yes Rehab Potential: Good Time/GCodes Start Time: 10:00 Stop Time: 11:00 Total Time Billed (hr/min): 60 Billed Treatment Time 1 visit, EXx4(60minutes) TANIKA ZEPEDA OT Mar 12, 2016 11:09
--- NOTE | 2016-03-12 14:48 | Therapy Group Daily Note ---
Therapy Daily Group Note Patient Education Topic Other List Below (Rehab process and benefit of exercise) Exercises LE Seated Exercise, UE Exercise Other/Notes Pt. attended group PT OT session. Pt. wheeled self via w/c. Pt. was quiet but did introduce self to others in the group and participated well when called upon. Rehab : "what it means and how its different" topic was taught as well as the importance of exercise and activity. pt. helped lead exercise with written illustrated card that he read and lead an exercise. Memory activities were done with image matching as well as pts recall for others names and statements. Pt. to room after Rx. [place] at hand Start Time: 13:00 Stop Time: 14:15 Total Billed Treatment Time: 75 Total Billed Treatment 1,GRP Start Time: 13:00 Stop Time: 14:15 Total Billed Treatment Time: 75 Total Billed Treatment 1,GRP MERLYN QUEZADA SHELL TRIM OPERATOR Mar 12, 2016 14:48
--- NOTE | 2016-03-12 17:10 | PM & R (SOAP) Progress Note ---
Subjective Subjective/Events-last exam Patient was seen in his room earlier today.Progressing well with therapies.Patient SBA for transfers Pain control adequate. Objective Exam Last Set of Vital Signs Vital Signs Date Time Temp Pulse Resp B/P Pulse Ox O2 Delivery O2 Flow Rate FiO2 03/12/16 09:24 90 Room Air 03/12/16 05:52 98.0 62 18 121/71 Capillary Refill : I&O Intake and Output 03/11/16 23:59 Intake Total 1220 ml Output Total 890 ml Balance 330 ml Intake Oral 1220 ml Output Urine Total 890 ml # Bowel Movements 1 General: Alert, Oriented X3, Cooperative, No Acute Distress HEENT: Atraumatic, PERRLA, EOMI, Mucous Memb Moist/[place] Neck: Supple, No JVD Lungs: Clear to Auscultation Heart: Regular Rate Abdomen: Normal Bowel Sounds, Soft, No Tenderness Extremities: Other (left AKa wrapped and no edema or calf tenderness rt leg) Neuro: Other (Functional strength Cognitively intact) Results Lab Laboratory Tests 03/10/16 05:20: INR Comment 2.3H, Prothrombin Time 25.3H 03/11/16 06:12: INR Comment 3.1H, Prothrombin Time 31.9H Assessment/Plan Assessment Left AKA DR Guillermo Dillon for sever PVD Postop anemiia Hyponatremia Chronic anticoagulation on coumadin with therapeutic INR HTN controlled COPD on inhalers S/.P AVR 2004 Cardiomyopathy with EF 25% followed by Dr Solis in past Plan Continue PT/OT/Wound care and pain management TEam Conference held earlier today-See report for full functional update and POC & ELOS Recheck Labs-done patient with hyponatremia and INR slightly above therapeutic levels F/U with Dr Alvarez PCP Adjust coumadin dosage as needed Discharge set tentatively for 03-19-16 Recheck Labs See orders CHARLIE VARGAS MD Mar 12, 2016 17:10
[2016-03-12] MEDS: warFARin 5 MG (COUMADIN) TAB PO SCH (18:08)
[2016-03-12] MEDS: lisINopril 5 MG (PRINIVIL) TABLET PO SCH (18:08)
[2016-03-12 18:59] VITALS: BP 112/62
[2016-03-12] MEDS: ATORVASTATIN 40 MG (LIPITOR) TABLET PO SCH (20:14)
[2016-03-13] MEDS: HYDROcodone/APAP 10 MG/325 MG (LORTAB) TAB PO PRN ×4 (00:58→23:58)
[2016-03-13 04:16] VITALS: BP 101/60
[2016-03-13] MEDS: PANTOPRAZOLE 40 MG (PROTONIX) TAB PO SCH (06:25)
[2016-03-13 06:50] LABS: BASOPHILS % (AUTO) 0 % (0-10); EOSINOPHILS # (AUTO) 0.5 10^3/uL (0.0-0.3); EOSINOPHILS % (AUTO) 4 % (0-10); LYMPHOCYTES % (AUTO) 27 % (12-44); MEAN CORPUSCULAR HEMOGLOBIN 30 PG (25-34); MEAN CORPUSCULAR HGB CONC 34 G/DL (32-36); MEAN CORPUSCULAR VOLUME 87 FL (80-99); MONOCYTES # (AUTO) 0.9 X 10^3 (0.0-1.0); MONOCYTES % (AUTO) 8 % (0-12); NEUTROPHILS # (AUTO) 6.8 X 10^3 (1.8-7.8); NEUTROPHILS % (AUTO) 61 % (42-75); PLATELET COUNT 319 10^3/uL (130-400); RED BLOOD COUNT 3.41 10^6/uL (4.35-5.85); RED CELL DISTRIBUTION WIDTH 14.2 % (10.0-14.5); WHITE BLOOD COUNT 11.2 10^3/uL (4.3-11.0)
[2016-03-13 07:01] LABS: INR 4.1 (0.8-1.4); PROTHROMBIN TIME PATIENT 39.8 SEC (12.2-14.7)
[2016-03-13 07:14] LABS: ALANINE AMINOTRANSFERASE 19 U/L (0-55); ALBUMIN 3.7 G/DL (3.2-4.5); ANION GAP 9 MMOL/L (5-14); ASPARTATE AMINO TRANSFERASE 22 U/L (5-34); BILIRUBIN,TOTAL 0.2 MG/DL (0.1-1.0); BLOOD UREA NITROGEN 30 MG/DL (7-18); BUN/CREATININE RATIO 34; CALCIUM 9.4 MG/DL (8.5-10.1); CARBON DIOXIDE 26 MMOL/L (21-32); CHLORIDE 98 MMOL/L (98-107); CREATININE SERUM 0.89 MG/DL (0.60-1.30); GFR ESTIMATED > 60; GLUCOSE 96 MG/DL (70-105); POTASSIUM 4.3 MMOL/L (3.6-5.0); SODIUM 133 MMOL/L (135-145); TOTAL PROTEIN 6.8 G/DL (6.4-8.2)
[2016-03-13] MEDS: MAGNESIUM OXIDE (MAG-OX)400 MG TAB PO SCH ×2 (08:23→17:33)
[2016-03-13] MEDS: GABAPENTIN 100 MG (NEURONTIN) CAP PO SCH ×3 (08:23→21:24)
[2016-03-13] MEDS: CARVEDILOL 6.25 MG (COREG) TAB PO SCH ×2 (08:23→21:24)
--- NOTE | 2016-03-13 09:16 | Physical Therapy Daily Note ---
PT Daily Note-Current Subjective Pt. states he feels good today. States that the exercise has increased his pain from 3/10 to 7/10 by end. Pain Numeric Pain Scale: 7 Location: Left Location Body Site: Thigh Pain Description: Burning Mental Status Patient Orientation: Normal For Age Transfers Functional [place] Measure 0=Not Assessed/NA 4=Minimal Assistance 1=Total Assistance 5=Supervision or Setup 2=Maximal Assistance 6=Modified [place] 3=Moderate Assistance 7=Complete IndependenceIRFPAI Quality Coding Scale 6 Independent with activity with or without an assistive device 5 Patient requires set up or clean up by helper. Patient completes activity by themselves 4 Supervision or touching assist (CGA). [place] provide cues , steadying assist 3 The helper provides less than half the effort to complete the activity 2 The helper provides more than half the effort to complete the activity 1 Dependent. The helper does all the effort to complete an activity 7 Patient refused to complete or attempt activity 9 The patient did not perform the activity before the current illness or injury 88 Not attempted due to Medical conditions or safety concerns Transfers (B, C, W/C) (FIM): 6 Scootin Rollin Supine to/from Sit: 6 Sit to/from Stand: 5 Bed to/from Chair: 5 discussed and educated RE: safety issues and TRFing toward existing LE Gait Training Does the Patient Walk?: Yes Gait (FIM): 1 Distance (FIM): 1=up to 49 ft Gait Level of Assist: 4 Gait Persons Needed: 1 Gait Assistive Device: Parallel Bars 45ftx2 CGA Wheelchair Training Does the Pt Use a Wheelchair?: Yes Wheelchair (FIM): 6 Wheelchair Distance: 3=150 ft Wheelchair Level of Assist: 6 Type of Wheelchair: Manual Exercises Supine Ex: Bridging, Ankle pumps, Quad Set, Rolling, Glut sets, Heel Slides, Short Arc Quads, Scooting, Straight leg raise, Hip abd/add Supine Reps: 15 NuStep Minutes: 12 NuStep Workload: 3 Assessment Current Status: Good Progress PT Short Term Goals Short Term Goals Time Frame: Mar 14, 2016 Gait (FIM): 1 Gait Distance Comment: 20' Gait Level of Assist: 4 Gait Assistive Device: FWW Wheelchair Distance: 400' PT Alf Goals Alf Goals PT Elementary [employer] Band Director Goals Time Frame: Mar 28, 2016 Transfers (B,C,W/C) (FIM): 5 Sit to Lying (QC): 6 Lying-Sitting on Side/Bed(QC): 6 Sit to Stand (QC): 4 Rollin Roll Left to Right (QC): 6 Chair/Csm-ik-Jodcv Xfer(QC): 4 Car Transfer (QC): 4 Does the Patient Walk: Yes Gait (FIM): 2 Distance: 50' Walk 10 feet (QC): 4 Walk 10ft-Uneven Surface(QC): 4 Walk 50ft with 2 Turns (QC): 4 Gait Level of Assist: 5 Gait Assistive Device: FWW Stairs (FIM): 1 # of Steps: 1 1 Step (curb) (QC): 4 Stairs Level Of Assist: 5 PT Plan Treatment/Plan Treatment Plan: Continue Plan of Care Treatment Plan: Bed Mobility, Education, Functional Activity Anuj, Functional Strength, Group Therapy, Gait, Safety, Therapeutic Exercise, Transfers Treatment Duration: Mar 28, 2016 Visits Per Week: 10-11 Minutes/Day (M-F): 60-90 Minutes/Day (Sat/Lo): 15-30 Safety Risks/Education Patient Education: Gait Training, Transfer Techniques, Issued Written HEP, Correct Positioning, W/C Management, Safety Issues (TRF toward good side etc) Teaching Recipient: Patient Teaching Methods: Demonstration, Discussion Response to Teaching: Verbalize Understanding, Return Demonstration, Reinforcement Needed Time/GCodes Time In: 800 Time Out: 900 Total Billed Treatment Time: 60 Total Billed Treatment 1,FA30m,EX30m G Codes Necessary: MERLYN Huggins PTA Mar 13, 2016 09:16
--- NOTE | 2016-03-13 11:12 | PM & R (SOAP) Progress Note ---
Subjective Subjective/Events-last exam Patient was seen in his room today INR >4 Will hold See orders Left AKA viewed. with RN and case discussed with her Sutures in place but has small blister in Periincisional area.No drainage from incision and incision intact but some discoloration noted posterior edge of incision Shape somewhat dogeared.Will reconsult Dr Doan now that he has returned from [place].as DR Dottie goncalves does not attend here See orders.Residual limb non tender or swollen. Objective Exam Last Set of Vital Signs Vital Signs Date Time Temp Pulse Resp B/P Pulse Ox O2 Delivery O2 Flow Rate FiO2 03/13/16 09:00 Room Air 03/13/16 04:16 97.1 67 18 101/60 96 Capillary Refill : I&O Intake and Output 03/13/16 00:00 Intake Total 1332 ml Output Total 1400 ml Balance -68 ml Intake Oral 1332 ml Output Urine Total 1400 ml General: Alert, Oriented X3, Cooperative, No Acute Distress HEENT: Atraumatic, PERRLA, EOMI, Mucous Memb Moist/[place] Neck: Supple, No JVD Lungs: Clear to Auscultation Heart: Regular Rate Abdomen: Normal Bowel Sounds, Soft, No Tenderness Extremities: Other (Left AKa as per above) Neuro: Other (Functional strength Cognitively intact) Results Lab Laboratory Tests 03/11/16 06:12: INR Comment 3.1H, Prothrombin Time 31.9H 03/13/16 06:37: INR Comment 4.1H, Prothrombin Time 39.8H, Alanine Aminotransferase (ALT/SGPT) 19 , Albumin 3.7, Alkaline Phosphatase 87, Anion Gap 9, Aspartate Amino Transf (AST /SGOT) 22, BUN/Creatinine Ratio 34, Basophils # (Auto) 0.0, Basophils (%) (Auto ) 0, Blood Urea Nitrogen 30H, Calcium Level 9.4, Carbon Dioxide Level 26, Chloride Level 98, Creatinine 0.89, Eosinophils # (Auto) 0.5H, Eosinophils (%) ( Auto) 4, Estimat Glomerular Filtration Rate > 60, Glucose Level 96, Hematocrit 30L, Hemoglobin 10.1L, Lymphocytes # (Auto) 3.0, Lymphocytes (%) (Auto) 27, Mean Corpuscular Hemoglobin 30, Mean Corpuscular Hemoglobin Concent 34, Mean Corpuscular Volume 87, Mean Platelet Volume 10.0, Monocytes # (Auto) 0.9, Monocytes (%) (Auto) 8, Neutrophils # (Auto) 6.8, Neutrophils (%) (Auto) 61, Platelet Count 319, Potassium Level 4.3, Red Blood Count 3.41L, Red Cell Distribution Width 14.2, Sodium Level 133L, Total Bilirubin 0.2, Total Protein 6.8, White Blood Count 11.2H Assessment/Plan Assessment Left AKA DR Guillermo Dillon for sever PVD Postop anemiia Hyponatremia Chronic anticoagulation on coumadin with supratherapeutic INR-will hold coumadin see orders HTN controlled COPD on inhalers S/.P AVR 2004 Cardiomyopathy with EF 25% followed by Dr Solis in past Plan Continue PT/OT/Wound care and pain management TEam Conference held yesterday-See report for full functional update and POC & ELOS Recheck Labs-done patient with hyponatremia and INR now>4 F/U with Dr Alvarez PCP Adjust coumadin dosage as needed-see orders Discharge set tentatively for 03-19-16 Recheck Labs See orders-done and reviewed Reconsult Dr Doan wound care see orders CHARLIE VARGAS MD Mar 13, 2016 11:12
--- NOTE | 2016-03-13 13:39 | Physical Therapy Daily Note ---
PT Daily Note-Current Subjective States when he moves around his pain elevates but while at rest near 0/10 Pain Numeric Pain Scale: 0-No Pain Transfers Functional [place] Measure 0=Not Assessed/NA 4=Minimal Assistance 1=Total Assistance 5=Supervision or Setup 2=Maximal Assistance 6=Modified [place] 3=Moderate Assistance 7=Complete IndependenceIRFPAI Quality Coding Scale 6 Independent with activity with or without an assistive device 5 Patient requires set up or clean up by helper. Patient completes activity by themselves 4 Supervision or touching assist (CGA). [place] provide cues , steadying assist 3 The helper provides less than half the effort to complete the activity 2 The helper provides more than half the effort to complete the activity 1 Dependent. The helper does all the effort to complete an activity 7 Patient refused to complete or attempt activity 9 The patient did not perform the activity before the current illness or injury 88 Not attempted due to Medical conditions or safety concerns sup to sit and SPTs bed to w/c all SBA Exercises Supine Ex: Bridging, Ankle pumps, Quad Set, Rolling, Glut sets, Heel Slides, Short Arc Quads, Scooting, Straight leg raise, Hip abd/add Supine Reps: 20 Assessment Current Status: Good Progress PT Short Term Goals Short Term Goals Time Frame: Mar 14, 2016 Gait (FIM): 1 Gait Distance Comment: 20' Gait Level of Assist: 4 Gait Assistive Device: FWW Wheelchair Distance: 400' PT Teleprinter Goals Teleprinter Goals PT Residential Goals Time Frame: Mar 28, 2016 Transfers (B,C,W/C) (FIM): 5 Sit to Lying (QC): 6 Lying-Sitting on Side/Bed(QC): 6 Sit to Stand (QC): 4 Rollin Roll Left to Right (QC): 6 Chair/Fqa-dk-Wlexp Xfer(QC): 4 Car Transfer (QC): 4 Does the Patient Walk: Yes Gait (FIM): 2 Distance: 50' Walk 10 feet (QC): 4 Walk 10ft-Uneven Surface(QC): 4 Walk 50ft with 2 Turns (QC): 4 Gait Level of Assist: 5 Gait Assistive Device: FWW Stairs (FIM): 1 # of Steps: 1 1 Step (curb) (QC): 4 Stairs Level Of Assist: 5 PT Plan Treatment/Plan Treatment Plan: Continue Plan of Care Treatment Plan: Bed Mobility, Education, Functional Activity Anuj, Functional Strength, Group Therapy, Gait, Safety, Therapeutic Exercise, Transfers Treatment Duration: Mar 28, 2016 Visits Per Week: 10-11 Minutes/Day (M-F): 60-90 Minutes/Day (Sat/Lo): 15-30 Safety Risks/Education Patient Education: Transfer Techniques, Issued Written HEP, Correct Positioning , W/C Management, Disease Process, Safety Issues Teaching Recipient: Patient Teaching Methods: Demonstration, Discussion Response to Teaching: Verbalize Understanding, Return Demonstration, Reinforcement Needed Time/GCodes Time In: 1300 Time Out: 1330 Total Billed Treatment Time: 30 Total Billed Treatment 1,FA10,EX20 G Codes Necessary: MERLYN Huggins NATIONAL BUSINESS DIRECTOR Mar 13, 2016 13:39
--- NOTE | 2016-03-13 14:04 | Consultation-Cardiology ---
HPI-Cardiology Cardiology Consultation Date of Consultation 03/13/16 Date of Admission Indication: CAD, CHF HPI Patient is a 70 y/o male with history of CAD, s/p CABG with AVR, extensive PAD, CHF. Underwent L AKA secondary to severe PAD done by Dr. Sinclair in Feb 2016. Currently receiving physical therapy. Reports he has been doing well. Denies any CP, dyspnea, dizziness, lightheadedness or syncope. Has been maintained on coumadin secondary to hx of AVR. INR today is 4.1. Coumadin currently on hold. No complaints at this time. Patient was seen and evaluated with Kasia, is sitting in bed, recovering slowly. Feeling well. Denied any chest pain, still having edema in his right lower extremity. No chest pain or palpitation. Receiving physical therapy. Home Medications & Allergies Allergies: Coded Allergies: morphine (Verified Allergy, Unknown, 02/22/07) Home Medication List Reviewed: Yes YGN-Hguill-Subkrb Hx Patient Social History Alcohol Use: Past History Recreational Drug Use: No (ETOH) Drug of Choice: [place] Smoking Status: Former Smoker Type Used: Cigarettes 2nd Hand Smoke Exposure: Yes Recent Foreign Travel: No Recent Infectious Disease Expo: No Recent Hopitalizations: Yes Physical Abuse Screen: No Sexual Abuse: No Immunizations Up To Date Tetanus Booster (TDap): Unknown Past Medical History CAD, CHF, PVD, AVR Family Medical History Significant Family History: No Pertinent Family Hx, Heart Disease, Hypertension , Psychiatric Problems Family History: Chest pain Family history: Cardiovascular disease Family history: Hypertension Hypercholesterolemia Myocardial infarction Psychotic disorder No Family History of: Abdominal aortic aneurysm [place]'s disease Alcoholism Aphasia Cancer Cancer of colon Cataract Congenital heart disease Congestive heart failure Cystic fibrosis Dementia Dysphagia Family history: Allergy Family history: Alzheimer's disease Family history: Arthritis Family history: Asthma Family history: Breast disease Family history: Coronary thrombosis Family history: Diabetes mellitus Family history: Gastrointestinal disease Family history: Glaucoma Family history: Osteoporosis Family history: Thyroid disorder Headache Hearing loss Heart disease Hereditary disease History of - anemia History of - disorder History of - respiratory disease History of drug abuse Human immunodeficiency virus (HIV) seropositivity Infertile Kidney disease Malignant neoplasm of lung Parkinson's disease Prostate cancer Seizure disorder Stroke Tuberculosis Visual impairment Constitutional: No chills, No diaphoresis EENTM: No blurred vision, No double vision Respiratory: No cough, No dyspnea on exertion, No hemoptysis, No short of breath Cardiovascular: No chest pain, No edema, No palpitations Gastrointestinal: No abdominal pain, No constipation, No diarrhea Genitourinary: No dysuria, No frequency Musculoskeletal: No back pain, No joint pain Skin: No lesions Psychiatric/Neurological: Denies Anxiety, Denies Depressed Reviewed Test Results Reviewed Test Results Lab Laboratory Tests 03/13/16 06:37: Alanine Aminotransferase (ALT/SGPT) 19, Albumin 3.7, Alkaline Phosphatase 87, Anion Gap 9, Aspartate Amino Transf (AST/SGOT) 22, BUN/Creatinine Ratio 34, Basophils # (Auto) 0.0, Basophils (%) (Auto) 0, Blood Urea Nitrogen 30H, Calcium Level 9.4, Carbon Dioxide Level 26, Chloride Level 98, Creatinine 0.89, Eosinophils # (Auto) 0.5H, Eosinophils (%) (Auto) 4, Estimat Glomerular Filtration Rate > 60, Glucose Level 96, Hematocrit 30L, Hemoglobin 10.1L, INR Comment 4.1H, Lymphocytes # (Auto) 3.0, Lymphocytes (%) (Auto) 27, Mean Corpuscular Hemoglobin 30, Mean Corpuscular Hemoglobin Concent 34, Mean Corpuscular Volume 87, Mean Platelet Volume 10.0, Monocytes # (Auto) 0.9, Monocytes (%) (Auto) 8, Neutrophils # (Auto) 6.8, Neutrophils (%) (Auto) 61, Platelet Count 319, Potassium Level 4.3, Prothrombin Time 39.8H, Red Blood Count 3.41L, Red Cell Distribution Width 14.2, Sodium Level 133L, Total Bilirubin 0.2, Total Protein 6.8, White Blood Count 11.2H Physical Exam Vital Signs Vital Sign - Last 12Hours 03/07/16 03/07/16 02:50 06:00 Temp 98.8 Pulse 76 Resp 18 B/P 120/73 Pulse Ox 94 O2 Delivery Room Air Capillary Refill : General Appearance: No Apparent Distress WD/WN HEENT: PERRL/EOMI Normal ENT Inspection Neck: Non Tender Supple Respiratory: Chest Non Tender Lungs Clear Normal Breath Sounds No Accessory Muscle Use No Respiratory Distress Cardiovascular: Regular Rate, Rhythm No Edema No Gallop No JVD Systolic Murmur Gastrointestinal: Normal Bowel Sounds Non Tender Soft Rectal: Deferred Back: No CVA Tenderness Extremity: Other (L AKA. Dressing is C/D/I) Neurologic/Psychiatric: Alert Oriented x3 layout worker II-XII Norm as Tested Skin: Normal Color Warm/Dry Lymphatic: No Adenopathy A/P-Cardiology Admission Diagnosis PVD s/p L AKA CAD CHF AVR Assessment/Plan Extensive peripheral arterial disease, seen and followed by heart and vascular care. Had history of femoropopliteal bypass on the left side, aggressive percutaneous revascularization. Now s/p L AKA by Dr. Sinclair. Patient recovering well. Continue to monitor. Coronary artery disease status post CABG 2 with SAMUEL to LAD and vein graft to RCA in 2005. Patient had acute myocardial infarction with elevated troponin on 04/14. He had with cardiac catheterization April 19, 2014 revealing total occlusion of circumflex artery, very small artery has been chronically occluded. Patent SAMUEL to LAD and vein graft to large dominant RCA with good flow in the system. Moderate disease in the first diagonal artery that was intermediate in size. Abnormal troponin was due to occluded circumflex in addition to stress of having severe anemia at the time. No intervention was warranted, continue to monitor. CHF, chronic LV systolic dysfunction, ischemic in nature. Most recent 2D Echo done at [facility] in 2014 revealed EF 30%. Patient reports echo done at [facility] in [place] Status post aortic valve replacement in 2005. Maintained on coumadin. INR is 4.1. Coumadin currently on hold. Continue to monitor. Carotid stenosis, currently followed by Dr. Elio Li. Hypertension-controlled. Continue current medications Hyperlipidemia, managed as outpatient. Continue to monitor History of pulmonary hypertension Bx-noiasccxwe-tegaxre reports he recently stopped smoking back in March 2015 History of noncompliance with medications Thank you for allowing us to participate in the management of Mr. Eddy. This is Kasia Singleton PA-C as a scribe for Dr. Solis. This is Dr. Solis, I have seen and evaluated the patient with Kasia, I agree with the current scribe, we discussed the management plan, patient has extensive peripheral tear disease, had left AKA, receiving physical therapy, recovering well, last echocardiogram was done in 2014. Planning to reevaluate echo. Has been with chronic compensated systolic dysfunction, on examination lungs were clear to auscultation bilaterally, heart is regular rate and rhythm. I will continue monitoring, evaluate echo, restart home medication. I have reviewed the note and made few modification using Italic Font Clinical Quality Measures DVT/VTE Risk/Contraindication: Risk Factor Score Per Nursin RFS Level Per Nursing on Admit: 4+=Very High KASIA LEON Mar 13, 2016 14:04 MANUEL SOLIS MD Mar 13, 2016 17:19
--- NOTE | 2016-03-13 14:17 | Occupational Ther Daily Note ---
OT Current Status-Daily Note Subjective Pt sitting in w/c, agrees to treatment. Pt reports 6/10 pain in left LE. Mental Status/Objective Functional [place] Measure 0=Not Assessed/NA 4=Minimal Assistance 1=Total Assistance 5=Supervision or Setup 2=Maximal Assistance 6=Modified [place] 3=Moderate Assistance 7=Complete [place] ADL-Treatment Pt agrees to shower this morning. Left LE covered per RN's instructions. Pt doffed clothing with SBA. Stand-pivot transfer w/c<-> shower bench with SBA. Pt able to bathe/dry all areas with SBA. Weight shifts left and right to wash buttocks. Don pullover shirt after set up. Pt donned underwear and sweat pants with SBA for standing balance during pant hike, using FWW. Don right sock with SBA. Pt combed hair without assistance while seated in w/c. Pt requires increased time for ADL tasks. Pt performed w/c mobility to laundry room. Pt placed laundry and soap into washer while seated in w/c. Stood with SBA to reach knobs on washer an place on appropriate setting. W/c mobility to therapy gym without assistance. Functional [place] Measure 0=Not Assessed/NA 4=Minimal Assistance 1=Total Assistance 5=Supervision or Setup 2=Maximal Assistance 6=Modified [place] 3=Moderate Assistance 7=Complete IndependenceIRFPAI Quality Coding Scale 6 Independent with activity with or without an assistive device 5 Patient requires set up or clean up by helper. Patient completes activity by themselves 4 Supervision or touching assist (CGA). [place] provide cues , steadying assist 3 The helper provides less than half the effort to complete the activity 2 The helper provides more than half the effort to complete the activity 1 Dependent. The helper does all the effort to complete an activity 7 Patient refused to complete or attempt activity 9 The patient did not perform the activity before the current illness or injury 88 Not attempted due to Medical conditions or safety concerns Grooming (FIM): 6 (w/c level) Bathing (FIM): 5 Upper Body (FIM): 5 Lower Body Dressing (FIM): 5 Shower Transfer(FIM): 5 Other Treatment Pt performed bilateral UE exercises to increase strength needed for ADLs and transfers. Pt performed shoulder flexion, forward press, biceps curls, and wrist flex/ext x20 reps with 2# dowel. Rest break between exercises. 2 sets of 10 chair push ups to increase strength for transfers. Arm bike x15 minutes to increase overall strength and activity tolerance for functional tasks. Task completed with moderate resistance, no rest breaks needed. Pt sitting in w/c with needs met after session. OT Short Term Goals Short Term Goals Time Frame: Mar 14, 2016 Lower Body Dressing(FIM): 5 Toileting(FIM): 5 Toilet/Commode Transfer(FIM): 5 Shower Transfer(FIM): 4 Additional Short Term Goals: 1-Demonstrate ADL Tasks, 2-Verbalize Understanding , 3-ImproveStrength/Anuj 1=Demonstrate adherence to instructed precautions during ADL tasks. 2=Patient will verbalize/demonstrate understanding of assistive devices/ modifications for ADL. 3=Patient will improve strength/tolerance for activity to enable patient to perform ADL's. OT Mcfp Goals Strainer Tender Goals Time Frame: Mar 28, 2016 Eating (QC): 6 Oral Hygiene (QC): 6 Grooming(FIM): 6 Bathing(FIM): 5 Shower/Bathe Self (QC): 6 Upper Body Dressing(FIM): 6 Upper Body Dressing (QC): 6 Lower Body Dressing(FIM): 6 Lower Body Dressing (QC): 6 On/Off Footwear (QC): 6 Toileting(FIM): 6 Toileting Hygiene (QC): 6 Toilet/Commode Transfer(FIM): 6 Toilet/Commode Transfer (QC): 6 Shower Transfer(FIM): 5 Additional Goals: 1-Demonstrate ADL Tasks, 2-Verbalize Understanding, 3- ImproveStrength/Anuj 1=Demonstrate adherence to instructed precautions during ADL tasks. 2=Patient will verbalize/demonstrate understanding of assistive devices/ modifications for ADL. 3=Patient will improve strength/tolerance for activity to enable patient to perform ADL's. OT Education/Plan Problem List/Assessment Pt s/p left AKA with decreased mobility, ADL functioning, and activity tolerance. Pt to benefit from skilled OT intervention for ADL training, transfers, strengthening, and safety education to maximize level of function and allow safe discharge plan. Discharge Recommendations Plan/Recommendations: Continue POC Treatment Plan/Plan of Care Patient would benefit from OT for education, treatment and training to promote independence in ADL's, mobility, safety and/or upper extremity function for ADL' s. Plan of Care: ADL Retraining, Functional Mobility, Group Exercise/Act as Ind, UE Funct Exercise/Act Treatment Duration: Mar 28, 2016 Visits Per Week: 10-11 Minutes/Day (M-F): 60-90 Minutes/Day (Sat/Lo): PRN Agreement: Yes Rehab Potential: Good Time/GCodes Start Time: 09:00 Stop Time: 10:30 Total Time Billed (hr/min): 90 Billed Treatment Time 1 visit, ADLx4(60minutes), EXx2(30minutes) TANIKA ZEPEDA OT Mar 13, 2016 14:16
[2016-03-13] MEDS: lisINopril 5 MG (PRINIVIL) TABLET PO SCH (17:33)
[2016-03-13 18:05] VITALS: BP 100/70
[2016-03-13] MEDS: ATORVASTATIN 40 MG (LIPITOR) TABLET PO SCH (21:23)
[2016-03-14 05:21] LABS: INR 4.3 (0.8-1.4); PROTHROMBIN TIME PATIENT 41.7 SEC (12.2-14.7)
[2016-03-14 05:57] VITALS: BP 114/65
[2016-03-14] MEDS: PANTOPRAZOLE 40 MG (PROTONIX) TAB PO SCH (06:14)
[2016-03-14] MEDS: CARVEDILOL 6.25 MG (COREG) TAB PO SCH ×2 (08:00→20:16)
[2016-03-14] MEDS: GABAPENTIN 100 MG (NEURONTIN) CAP PO SCH ×3 (08:00→20:16)
[2016-03-14] MEDS: MAGNESIUM OXIDE (MAG-OX)400 MG TAB PO SCH ×2 (08:00→17:51)
[2016-03-14] MEDS: HYDROcodone/APAP 10 MG/325 MG (LORTAB) TAB PO PRN (09:01)
--- NOTE | 2016-03-14 09:10 | Physical Therapy Daily Note ---
PT Daily Note-Current Subjective Pt. c/o pain at 6/10 before Rx and 5/10 after Rx. Pt. requests to go to laundry room to retrieve his laundry. States he expects to see wound care Dr as well as Dr Solis this afternoon and is not sure how this will impact his afternoon therapies. Pain Numeric Pain Scale: 5-Moderate Pain Location: Left Location Body Site: Thigh Pain Description: Throbbing Mental Status Patient Orientation: Normal For Age Transfers Functional [place] Measure 0=Not Assessed/NA 4=Minimal Assistance 1=Total Assistance 5=Supervision or Setup 2=Maximal Assistance 6=Modified [place] 3=Moderate Assistance 7=Complete IndependenceIRFPAI Quality Coding Scale 6 Independent with activity with or without an assistive device 5 Patient requires set up or clean up by helper. Patient completes activity by themselves 4 Supervision or touching assist (CGA). [place] provide cues , steadying assist 3 The helper provides less than half the effort to complete the activity 2 The helper provides more than half the effort to complete the activity 1 Dependent. The helper does all the effort to complete an activity 7 Patient refused to complete or attempt activity 9 The patient did not perform the activity before the current illness or injury 88 Not attempted due to Medical conditions or safety concerns Transfers (B, C, W/C) (FIM): 5 Scootin Rollin Supine to/from Sit: 6 Sit to/from Stand: 6 Bed to/from Chair: 5 Pt. never noted to have LOB or incident but TRFs frequently toward AKA side. Wheelchair Training Does the Pt Use a Wheelchair?: Yes Wheelchair (FIM): 6 Wheelchair Distance: 3=150 ft (300x2) Wheelchair Level of Assist: 6 Type of Wheelchair: Manual Exercises Standing: Hip Abduction, Hamstring curls, Heel/toe raises, Marching, Mini squats, Sit to Stand Standing Reps: 12 NuStep Minutes: 12 NuStep Workload: 3 Treatments pt. in laundry, pulled all clothing out of dryer, folded each piece and put it in bag all from w/c level Assessment Current Status: Good Progress PT Short Term Goals Short Term Goals Time Frame: Mar 14, 2016 Gait (FIM): 1 Gait Distance Comment: 20' Gait Level of Assist: 4 Gait Assistive Device: FWW Wheelchair Distance: 400' PT Halfway Goals Halfway Goals PT Halfway Goals Time Frame: Mar 28, 2016 Transfers (B,C,W/C) (FIM): 5 Sit to Lying (QC): 6 Lying-Sitting on Side/Bed(QC): 6 Sit to Stand (QC): 4 Rollin Roll Left to Right (QC): 6 Chair/Dne-wa-Mwfiy Xfer(QC): 4 Car Transfer (QC): 4 Does the Patient Walk: Yes Gait (FIM): 2 Distance: 50' Walk 10 feet (QC): 4 Walk 10ft-Uneven Surface(QC): 4 Walk 50ft with 2 Turns (QC): 4 Gait Level of Assist: 5 Gait Assistive Device: FWW Stairs (FIM): 1 # of Steps: 1 1 Step (curb) (QC): 4 Stairs Level Of Assist: 5 PT Plan Treatment/Plan Treatment Plan: Continue Plan of Care Treatment Plan: Bed Mobility, Education, Functional Activity Anuj, Functional Strength, Group Therapy, Gait, Safety, Therapeutic Exercise, Transfers Treatment Duration: Mar 28, 2016 Visits Per Week: 10-11 Minutes/Day (M-F): 60-90 Minutes/Day (Sat/Lo): 15-30 Safety Risks/Education Patient Education: Transfer Techniques, Correct Positioning, W/C Management, Safety Issues Teaching Recipient: Patient Teaching Methods: Demonstration, Discussion Response to Teaching: Return Demonstration, Reinforcement Needed Time/GCodes Time In: 800 Time Out: 900 Total Billed Treatment Time: 60 Total Billed Treatment 1,FA35m,EX25m G Codes Necessary: MERLYN Huggins SPRAY PAINTING MACHINE OPERATOR Mar 14, 2016 09:10
--- NOTE | 2016-03-14 09:31 | Cardiology Progress Note ---
Subjective Subjective/Events-last exam Patient is in a chair, feeling better, no chest pain or shortness of breath Review of Systems General: No Chills, No Night Sweats, No Fatigue, No Malaise, No Appetite, No Other HEENT: No Head Aches, No Visual Changes, No Eye Pain, No Ear Pain, No Dysphasia , No Sinus Congestion, No Post Nasal Drip, No Sore Throat, No Other Pulmonary: No Dyspnea, No Cough, No Pleuritic Chest Pain, No Other Cardiovascular: No: Chest Pain, Edema, Lt Headedness, Orthopnea, Other, Palpitations, Paroxysmal Noc. Dyspnea Objective-Cardiology Exam Last Set of Vital Signs Vital Signs 03/14/16 05:57 Temp 98.6 Pulse 60 Resp 16 B/P 114/65 Pulse Ox 95 O2 Delivery Room Air Capillary Refill : I&O Intake and Output 03/14/16 00:00 Intake Total 980 ml Output Total 500 ml Balance 480 ml Intake Oral 980 ml Output Urine Total 500 ml # Bowel Movements 2 General: Alert, Oriented X3, Cooperative, No Acute Distress HEENT: Atraumatic, PERRLA, EOMI, Mucous Memb Moist/[place] Neck: Supple, No JVD Lungs: Clear to Auscultation Heart: Regular Rate Abdomen: Normal Bowel Sounds, Soft, No Tenderness Extremities: Other (Left AKa as per above) Neuro: Other (Functional strength Cognitively intact) A/P-Cardiology Admission Diagnosis PVD s/p L AKA CAD CHF AVR Assessment/Plan Extensive peripheral arterial disease, seen and followed by heart and vascular care. Had history of femoropopliteal bypass on the left side, aggressive percutaneous revascularization. Now s/p L AKA by Dr. Sinclair. Patient recovering well. Continue to monitor. Coronary artery disease status post CABG 2 with SAMUEL to LAD and vein graft to RCA in 2005. Patient had acute myocardial infarction with elevated troponin on 04/14. He had with cardiac catheterization April 19, 2014 revealing total occlusion of circumflex artery, very small artery has been chronically occluded. Patent SAMUEL to LAD and vein graft to large dominant RCA with good flow in the system. Moderate disease in the first diagonal artery that was intermediate in size. Abnormal troponin was due to occluded circumflex in addition to stress of having severe anemia at the time. No intervention was warranted, continue to monitor. CHF, chronic LV systolic dysfunction, ischemic in nature. Most recent 2D Echo done at [facility] in 2014 revealed EF 30%, I will repeat echo Status post aortic valve replacement in 2005. Maintained on coumadin. INR is Hold for now and monitor INR Carotid stenosis, currently followed by Dr. Elio Li. Hypertension-controlled. Continue current medications Hyperlipidemia, managed as outpatient. Continue to monitor History of pulmonary hypertension [id number] reports he recently stopped smoking back in March 2015 History of noncompliance with medications Clinical Quality Measures DVT/VTE Risk/Contraindication: Risk Factor Score Per Nursin RFS Level Per Nursing on Admit: 4+=Very High MANUEL BASS MD Mar 14, 2016 09:31
--- NOTE | 2016-03-14 10:00 | PM & R (SOAP) Progress Note ---
Subjective Subjective/Events-last exam Patient was seen in his room this AM Appreciate DR Hinson note DR Doan has seen.Patient SBA to Modified Independent for transfers and w/c mobility Objective Exam Last Set of Vital Signs Vital Signs Date Time Temp Pulse Resp B/P Pulse Ox O2 Delivery O2 Flow Rate FiO2 03/14/16 05:57 98.6 60 16 114/65 95 Room Air Capillary Refill : I&O Intake and Output 03/14/16 00:00 Intake Total 980 ml Output Total 500 ml Balance 480 ml Intake Oral 980 ml Output Urine Total 500 ml # Bowel Movements 2 General: Alert, Oriented X3, Cooperative, No Acute Distress HEENT: Atraumatic, PERRLA, EOMI, Mucous Memb Moist/[place] Neck: Supple, No JVD Lungs: Clear to Auscultation Heart: Regular Rate Abdomen: Normal Bowel Sounds, Soft, No Tenderness Extremities: Other (Left AKa as per above) Neuro: Other (Functional strength Cognitively intact) Results Lab Laboratory Tests 03/13/16 06:37: Alanine Aminotransferase (ALT/SGPT) 19, Albumin 3.7, Alkaline Phosphatase 87, Anion Gap 9, Aspartate Amino Transf (AST/SGOT) 22, BUN/Creatinine Ratio 34, Basophils # (Auto) 0.0, Basophils (%) (Auto) 0, Blood Urea Nitrogen 30H, Calcium Level 9.4, Carbon Dioxide Level 26, Chloride Level 98, Creatinine 0.89, Eosinophils # (Auto) 0.5H, Eosinophils (%) (Auto) 4, Estimat Glomerular Filtration Rate > 60, Glucose Level 96, Hematocrit 30L, Hemoglobin 10.1L, INR Comment 4.1H, Lymphocytes # (Auto) 3.0, Lymphocytes (%) (Auto) 27, Mean Corpuscular Hemoglobin 30, Mean Corpuscular Hemoglobin Concent 34, Mean Corpuscular Volume 87, Mean Platelet Volume 10.0, Monocytes # (Auto) 0.9, Monocytes (%) (Auto) 8, Neutrophils # (Auto) 6.8, Neutrophils (%) (Auto) 61, Platelet Count 319, Potassium Level 4.3, Prothrombin Time 39.8H, Red Blood Count 3.41L, Red Cell Distribution Width 14.2, Sodium Level 133L, Total Bilirubin 0.2, Total Protein 6.8, White Blood Count 11.2H 03/14/16 04:55: INR Comment 4.3H, Prothrombin Time 41.7H Assessment/Plan Assessment Left AKA DR Guillermo Dillon for sever PVD Postop anemiia Hyponatremia Chronic anticoagulation on coumadin with supratherapeutic INR-will hold coumadin see orders-med dose being adjusted HTN controlled COPD on inhalers S/.P AVR 2004 Cardiomyopathy with EF 25% followed by Dr Solis in past-Appreciate DR Hinson note Plan Continue PT/OT/Wound care and pain management TEam Conference held 03-12-16-See report for full functional update and POC & ELOS Recheck Labs-done patient with hyponatremia and INR being monitored F/U with Dr Alvarez PCP Adjust coumadin dosage as needed-see orders Discharge set tentatively for 03-19-16 Recheck Labs See orders-done and reviewed Reconsult Dr Doan wound care see orders-done F/U with CHARLIE Segundo MD Mar 14, 2016 10:00
--- NOTE | 2016-03-14 11:11 | Occupational Ther Daily Note ---
OT Current Status-Daily Note Subjective Pt sitting in w/c, agrees to treatment. No c/o pain. Mental Status/Objective Functional [place] Measure 0=Not Assessed/NA 4=Minimal Assistance 1=Total Assistance 5=Supervision or Setup 2=Maximal Assistance 6=Modified [place] 3=Moderate Assistance 7=Complete [place] ADL-Treatment Pt declined ADL activity this morning. Functional [place] Measure 0=Not Assessed/NA 4=Minimal Assistance 1=Total Assistance 5=Supervision or Setup 2=Maximal Assistance 6=Modified [place] 3=Moderate Assistance 7=Complete IndependenceIRFPAI Quality Coding Scale 6 Independent with activity with or without an assistive device 5 Patient requires set up or clean up by helper. Patient completes activity by themselves 4 Supervision or touching assist (CGA). [place] provide cues , steadying assist 3 The helper provides less than half the effort to complete the activity 2 The helper provides more than half the effort to complete the activity 1 Dependent. The helper does all the effort to complete an activity 7 Patient refused to complete or attempt activity 9 The patient did not perform the activity before the current illness or injury 88 Not attempted due to Medical conditions or safety concerns Other Treatment Pt performed w/c mobility to therapy gym without assistance. Pt performed bilateral UE exercises to increase strength needed for ADLs and transfers. Pt performed shoulder flexion and abduction, bicep curls, and triceps extension exercises x15 reps with 3# weights. Rest breaks between exercises. Arm bike [id number] to increase overall strength and activity tolerance. Pt performed task with moderate resistance. No rest breaks needed. Pt performed standing ledezma bag toss to increase balance needed for ADLs. Pt used FWW for balance and used bilateral UE to toss ledezma bags. Pt completed activity with SBA for balance. Graded clothespin activity with bilateral UE with 2# weights in place to increase strength. Pt returned to room, sitting in w/c with needs met after session. OT Short Term Goals Short Term Goals Time Frame: Mar 14, 2016 Lower Body Dressing(FIM): 5 Toileting(FIM): 5 Toilet/Commode Transfer(FIM): 5 Shower Transfer(FIM): 4 Additional Short Term Goals: 1-Demonstrate ADL Tasks, 2-Verbalize Understanding , 3-ImproveStrength/Anuj 1=Demonstrate adherence to instructed precautions during ADL tasks. 2=Patient will verbalize/demonstrate understanding of assistive devices/ modifications for ADL. 3=Patient will improve strength/tolerance for activity to enable patient to perform ADL's. OT Halfway Goals Photo Studio Assistant Goals Time Frame: Mar 28, 2016 Eating (QC): 6 Oral Hygiene (QC): 6 Grooming(FIM): 6 Bathing(FIM): 5 Shower/Bathe Self (QC): 6 Upper Body Dressing(FIM): 6 Upper Body Dressing (QC): 6 Lower Body Dressing(FIM): 6 Lower Body Dressing (QC): 6 On/Off Footwear (QC): 6 Toileting(FIM): 6 Toileting Hygiene (QC): 6 Toilet/Commode Transfer(FIM): 6 Toilet/Commode Transfer (QC): 6 Shower Transfer(FIM): 5 Additional Goals: 1-Demonstrate ADL Tasks, 2-Verbalize Understanding, 3- ImproveStrength/Anuj 1=Demonstrate adherence to instructed precautions during ADL tasks. 2=Patient will verbalize/demonstrate understanding of assistive devices/ modifications for ADL. 3=Patient will improve strength/tolerance for activity to enable patient to perform ADL's. OT Education/Plan Problem List/Assessment Pt s/p left AKA with decreased mobility, ADL functioning, and activity tolerance. Pt to benefit from skilled OT intervention for ADL training, transfers, strengthening, and safety education to maximize level of function and allow safe discharge plan. Discharge Recommendations Plan/Recommendations: Continue POC Treatment Plan/Plan of Care Patient would benefit from OT for education, treatment and training to promote independence in ADL's, mobility, safety and/or upper extremity function for ADL' s. Plan of Care: ADL Retraining, Functional Mobility, Group Exercise/Act as Ind, UE Funct Exercise/Act Treatment Duration: Mar 28, 2016 Visits Per Week: 10-11 Minutes/Day (M-F): 60-90 Minutes/Day (Sat/Lo): PRN Agreement: Yes Rehab Potential: Good Time/GCodes Start Time: 10:00 Stop Time: 11:00 Total Time Billed (hr/min): 60 Billed Treatment Time 1 visit, EXx3(45minutes), FA(15minutes) TANIKA ZEPEDA OT Mar 14, 2016 11:10
--- NOTE | 2016-03-14 12:56 | Physical Therapy Daily Note ---
PT Daily Note-Current Subjective Pt up in chair , meets this WEAVING TEACHER [place] to begin Rx. States he is having phantom pain this afternoon in his left foot. Pain Numeric Pain Scale: 3 Location: Left Location Body Site: Foot Comment: phantom Mental Status Patient Orientation: Normal For Age Transfers Functional [place] Measure 0=Not Assessed/NA 4=Minimal Assistance 1=Total Assistance 5=Supervision or Setup 2=Maximal Assistance 6=Modified [place] 3=Moderate Assistance 7=Complete IndependenceIRFPAI Quality Coding Scale 6 Independent with activity with or without an assistive device 5 Patient requires set up or clean up by helper. Patient completes activity by themselves 4 Supervision or touching assist (CGA). [place] provide cues , steadying assist 3 The helper provides less than half the effort to complete the activity 2 The helper provides more than half the effort to complete the activity 1 Dependent. The helper does all the effort to complete an activity 7 Patient refused to complete or attempt activity 9 The patient did not perform the activity before the current illness or injury 88 Not attempted due to Medical conditions or safety concerns sit to stand and sup to sit all SBA Gait Training Does the Patient Walk?: Yes Gait (FIM): 2 Distance (FIM): 9=969-42 ft Gait Level of Assist: 5 Gait Persons Needed: 1 Gait Assistive Device: Parallel Bars 50ft, 20ft,20ft Wheelchair Training Does the Pt Use a Wheelchair?: Yes Type of Wheelchair: Manual 200ft plus indep in w/c about unit Exercises Seated Therapy Exercises: Ankle pumps, Sit to stand, Long arc quads, Chair press-ups, Hip flexion, Hip abd/add Seated Reps: 15 Assessment Current Status: Good Progress PT Short Term Goals Short Term Goals Time Frame: Mar 14, 2016 Gait (FIM): 1 Gait Distance Comment: 20' Gait Level of Assist: 4 Gait Assistive Device: FWW Wheelchair Distance: 400' PT Shelter Goals Shelter Goals PT Shelter Goals Time Frame: Mar 28, 2016 Transfers (B,C,W/C) (FIM): 5 Sit to Lying (QC): 6 Lying-Sitting on Side/Bed(QC): 6 Sit to Stand (QC): 4 Rollin Roll Left to Right (QC): 6 Chair/Iik-tv-Hwuld Xfer(QC): 4 Car Transfer (QC): 4 Does the Patient Walk: Yes Gait (FIM): 2 Distance: 50' Walk 10 feet (QC): 4 Walk 10ft-Uneven Surface(QC): 4 Walk 50ft with 2 Turns (QC): 4 Gait Level of Assist: 5 Gait Assistive Device: FWW Stairs (FIM): 1 # of Steps: 1 1 Step (curb) (QC): 4 Stairs Level Of Assist: 5 PT Plan Treatment/Plan Treatment Plan: Continue Plan of Care Treatment Plan: Bed Mobility, Education, Functional Activity Anuj, Functional Strength, Group Therapy, Gait, Safety, Therapeutic Exercise, Transfers Treatment Duration: Mar 28, 2016 Visits Per Week: 10-11 Minutes/Day (M-F): 60-90 Minutes/Day (Sat/Lo): 15-30 Time/GCodes Time In: 1220 Time Out: 1250 Total Billed Treatment Time: 30 Total Billed Treatment 1,GT30m G Codes Necessary: MERLYN Huggins WEAVING TEACHER Mar 14, 2016 12:56
--- NOTE | 2016-03-14 14:16 | Occupational Ther Daily Note ---
OT Current Status-Daily Note Subjective Pt in bed, agrees to treatment. Mental Status/Objective Functional [place] Measure 0=Not Assessed/NA 4=Minimal Assistance 1=Total Assistance 5=Supervision or Setup 2=Maximal Assistance 6=Modified [place] 3=Moderate Assistance 7=Complete [place] ADL-Treatment Functional [place] Measure 0=Not Assessed/NA 4=Minimal Assistance 1=Total Assistance 5=Supervision or Setup 2=Maximal Assistance 6=Modified [place] 3=Moderate Assistance 7=Complete IndependenceIRFPAI Quality Coding Scale 6 Independent with activity with or without an assistive device 5 Patient requires set up or clean up by helper. Patient completes activity by themselves 4 Supervision or touching assist (CGA). [place] provide cues , steadying assist 3 The helper provides less than half the effort to complete the activity 2 The helper provides more than half the effort to complete the activity 1 Dependent. The helper does all the effort to complete an activity 7 Patient refused to complete or attempt activity 9 The patient did not perform the activity before the current illness or injury 88 Not attempted due to Medical conditions or safety concerns Other Treatment Supine to sit with SBA. Pt transferred EOB to w/c with SBA. Pt performed w/c mobility to therapy gym without assistance. Pt completed medium resistance putty activity with bilateral hands to increase boarding house manager strength. Pt able to remove small beads from putty with increased time. Arc activity with bilateral UE with 2# weights in place to increase strength needed for ADLs and transfers. Pt returned to room, sitting in w/c with needs met after session. OT Short Term Goals Short Term Goals Time Frame: Mar 14, 2016 Lower Body Dressing(FIM): 5 Toileting(FIM): 5 Toilet/Commode Transfer(FIM): 5 Shower Transfer(FIM): 4 Additional Short Term Goals: 1-Demonstrate ADL Tasks, 2-Verbalize Understanding , 3-ImproveStrength/Anuj 1=Demonstrate adherence to instructed precautions during ADL tasks. 2=Patient will verbalize/demonstrate understanding of assistive devices/ modifications for ADL. 3=Patient will improve strength/tolerance for activity to enable patient to perform ADL's. OT Soft Metals Hand Engraver Goals Fdc Goals Time Frame: Mar 28, 2016 Eating (QC): 6 Oral Hygiene (QC): 6 Grooming(FIM): 6 Bathing(FIM): 5 Shower/Bathe Self (QC): 6 Upper Body Dressing(FIM): 6 Upper Body Dressing (QC): 6 Lower Body Dressing(FIM): 6 Lower Body Dressing (QC): 6 On/Off Footwear (QC): 6 Toileting(FIM): 6 Toileting Hygiene (QC): 6 Toilet/Commode Transfer(FIM): 6 Toilet/Commode Transfer (QC): 6 Shower Transfer(FIM): 5 Additional Goals: 1-Demonstrate ADL Tasks, 2-Verbalize Understanding, 3- ImproveStrength/Anuj 1=Demonstrate adherence to instructed precautions during ADL tasks. 2=Patient will verbalize/demonstrate understanding of assistive devices/ modifications for ADL. 3=Patient will improve strength/tolerance for activity to enable patient to perform ADL's. OT Education/Plan Problem List/Assessment Pt s/p left AKA with decreased mobility, ADL functioning, and activity tolerance. Pt to benefit from skilled OT intervention for ADL training, transfers, strengthening, and safety education to maximize level of function and allow safe discharge plan. Discharge Recommendations Plan/Recommendations: Continue POC Treatment Plan/Plan of Care Patient would benefit from OT for education, treatment and training to promote independence in ADL's, mobility, safety and/or upper extremity function for ADL' s. Plan of Care: ADL Retraining, Functional Mobility, Group Exercise/Act as Ind, UE Funct Exercise/Act Treatment Duration: Mar 28, 2016 Visits Per Week: 10-11 Minutes/Day (M-F): 60-90 Minutes/Day (Sat/Lo): PRN Agreement: Yes Rehab Potential: Good Time/GCodes Start Time: 13:35 Stop Time: 14:05 Total Time Billed (hr/min): 30 Billed Treatment Time 1 visit, EXx2(30minutes) TANIKA ZEPEDA OT Mar 14, 2016 14:16
[2016-03-14 17:51] VITALS: BP 105/65
[2016-03-14] MEDS: lisINopril 5 MG (PRINIVIL) TABLET PO SCH (17:51)
[2016-03-14] MEDS: ATORVASTATIN 40 MG (LIPITOR) TABLET PO SCH (20:16)
[2016-03-14] MEDS ORDERED: MENTHOL/ZINC OXIDE (CALMOSEPTINE) 113 GM TUBE TOP SCH (21:00)
[2016-03-15 05:23] LABS: INR 2.8 (0.8-1.4); PROTHROMBIN TIME PATIENT 29.2 SEC (12.2-14.7)
[2016-03-15 06:00] VITALS: BP 131/71
[2016-03-15] MEDS: PANTOPRAZOLE 40 MG (PROTONIX) TAB PO SCH (06:15)
[2016-03-15] MEDS: MAGNESIUM OXIDE (MAG-OX)400 MG TAB PO SCH ×2 (08:30→17:15)
[2016-03-15] MEDS: CARVEDILOL 6.25 MG (COREG) TAB PO SCH ×2 (08:30→20:02)
[2016-03-15] MEDS: GABAPENTIN 100 MG (NEURONTIN) CAP PO SCH ×3 (08:30→20:02)
[2016-03-15] MEDS: HYDROcodone/APAP 10 MG/325 MG (LORTAB) TAB PO PRN ×2 (09:18→20:02)
--- NOTE | 2016-03-15 09:29 | ECHOCARDIOGRAPHY REPORT ---
PROCEDURE PHYSICIAN: MANUEL BASS DATE OF PROCEDURE: 03/14/2016 TWO DIMENSIONAL ECHOCARDIOGRAM REPORT PRIMARY PHYSICIAN: OTHER PHYSICIAN: REFERRING PHYSICIAN: Dr. Alvarez ORDERING PHYSICIAN: INDICATION FOR THE PROCEDURE: 1. Shortness of breath. 2. Aortic valve replacement. MEASUREMENTS DERIVED VALUES LV DIAMETER (LAX) NORMALS NORMALS Diastolic (3.6-5.2) Eject. Fract. (60%+/-6%) Systolic (2.3-3.9) Diastolic Vol. % Shortening (0.22-0.42) Systolic Vol. Aortic Root IVS THICKNESS Diastolic (0.6-1.1) LVPW THICKNESS Diastolic (0.6-1.1) LA DIAMETER Systolic (2.1-3.7) FINDINGS: 1. Technical quality is good. 2. The left ventricle is normal in size, systolic function appeared to be preserved. Estimated ejection fraction 60%. 3. The left atrium is mildly dilated. No clot or thrombus were seen within the left atrium. 4. The right atrium and right ventricle are normal in size. No clot or thrombus were seen within the right side. 5. Mitral valve is calcified with mild mitral regurgitation noted by color Doppler flow. No mitral valve prolapse. No mitral valve stenosis. 6. Aortic valve was not well visualized. The patient reported aortic valve replacement. Doppler across the aortic valve estimated peak gradient of 30 mmHg, mean gradient of 16 mmHg. Calculated valve area of 1.8 sq cm. Mild aortic regurgitation was noted. 7. Tricuspid valve is normal in morphology with mild tricuspid regurgitation noted by color Doppler flow. Doppler across tricuspid valve estimated pulmonary artery pressure of 34+ right atrial pressure. 8. Pulmonic valve is functioning normally. 9. No pericardial effusion. In conclusion: IN CONCLUSION: 1. Normal left ventricular size with preserved systolic function. Estimated ejection fraction 50%. 2. Prosthetic valve in the aortic position. Leaflets were not well visualized. Valve is functioning normally. Mild aortic regurgitation valve area of 1.8 sq cm. 3. Calcified mitral valve with mild mitral regurgitation, mild tricuspid regurgitation. 4. Estimated pulmonary artery pressure of 40 mmHg. Job ID: [id number] Dictated Date: 03/14/2016 19:21:12 Electrodynamicist Date: 03/15/2016 09:21:46 / mala
--- NOTE | 2016-03-15 11:28 | Cardiology Progress Note ---
Subjective Subjective/Events-last exam Patient is laying down in bed, feeling better, denied any chest pain or shortness of breath Review of Systems General: No Chills, No Night Sweats, No Fatigue, No Malaise, No Appetite, No Other HEENT: No Head Aches, No Visual Changes, No Eye Pain, No Ear Pain, No Dysphasia , No Sinus Congestion, No Post Nasal Drip, No Sore Throat, No Other Pulmonary: No Dyspnea, No Cough, No Pleuritic Chest Pain, No Other Objective-Cardiology Exam Last Set of Vital Signs Vital Signs 03/15/16 03/15/16 03/15/16 06:00 07:20 08:56 Temp 97.5 Pulse 58 Resp 14 B/P 131/71 Pulse Ox 95 O2 Delivery Room Air Capillary Refill : I&O Intake and Output 03/15/16 00:00 Intake Total 1040 ml Output Total 875 ml Balance 165 ml Intake Oral 1040 ml Output Urine Total 875 ml # Voids 4 General: Alert, Oriented X3, Cooperative, No Acute Distress HEENT: Atraumatic, PERRLA, EOMI, Mucous Memb Moist/[place] Neck: Supple, No JVD Lungs: Clear to Auscultation Heart: Regular Rate Abdomen: Normal Bowel Sounds, Soft, No Tenderness Extremities: Other (Left AKa as per above) Neuro: Other (Functional strength Cognitively intact) Results Lab Laboratory Tests Test 03/15/16 05:04 Range/Units INR Comment 2.8 H 0.8-1.4 Prothrombin Time 29.2 H 12.2-14.7 SEC A/P-Cardiology Admission Diagnosis PVD s/p L AKA CAD CHF AVR Assessment/Plan Extensive peripheral arterial disease, seen and followed by heart and vascular care. Had history of femoropopliteal bypass on the left side, aggressive percutaneous revascularization. Now s/p L AKA by Dr. Sinclair. Patient recovering well. Continue to monitor. Coronary artery disease status post CABG 2 with SAMUEL to LAD and vein graft to RCA in 2005. Patient had acute myocardial infarction with elevated troponin on 04/14. He had with cardiac catheterization April 19, 2014 revealing total occlusion of circumflex artery, very small artery has been chronically occluded. Patent SAMUEL to LAD and vein graft to large dominant RCA with good flow in the system. Moderate disease in the first diagonal artery that was intermediate in size. Abnormal troponin was due to occluded circumflex in addition to stress of having severe anemia at the time. No intervention was warranted, continue to monitor. CHF, chronic LV systolic dysfunction, ischemic in nature. Most recent 2D Echo done at [facility] in 2014 revealed EF 30%, I will repeat echo Status post aortic valve replacement in 2005. Restart Coumadin at 4 mg daily today. Monitor INR Carotid stenosis, currently followed by Dr. Elio Li. Hypertension-controlled. Continue current medications Hyperlipidemia, managed as outpatient. Continue to monitor History of pulmonary hypertension Ch-soshmbwayv-ckculds reports he recently stopped smoking back in March 2015 History of noncompliance with medications Clinical Quality Measures DVT/VTE Risk/Contraindication: Risk Factor Score Per Nursin RFS Level Per Nursing on Admit: 4+=Very High MANUEL BASS MD Mar 15, 2016 11:28 am
--- NOTE | 2016-03-15 12:31 | Physical Therapy Daily Note ---
PT Daily Note-Current Subjective 1st attempt pt. declines stating he has some constipation and doesnt feel well. Pt. later approached this LIVESTOCK CARETAKER and wanted to walk in parallel bars Pain Numeric Pain Scale: 0-No Pain Transfers Functional [place] Measure 0=Not Assessed/NA 4=Minimal Assistance 1=Total Assistance 5=Supervision or Setup 2=Maximal Assistance 6=Modified [place] 3=Moderate Assistance 7=Complete IndependenceIRFPAI Quality Coding Scale 6 Independent with activity with or without an assistive device 5 Patient requires set up or clean up by helper. Patient completes activity by themselves 4 Supervision or touching assist (CGA). [place] provide cues , steadying assist 3 The helper provides less than half the effort to complete the activity 2 The helper provides more than half the effort to complete the activity 1 Dependent. The helper does all the effort to complete an activity 7 Patient refused to complete or attempt activity 9 The patient did not perform the activity before the current illness or injury 88 Not attempted due to Medical conditions or safety concerns Transfers (B, C, W/C) (FIM): 6 Scootin Rollin Supine to/from Sit: 6 Sit to/from Stand: 6 Bed to/from Chair: 6 Gait Training Does the Patient Walk?: Yes Gait (FIM): 2 Distance (FIM): 7=822-80 ft Gait Level of Assist: 5 Gait Persons Needed: 1 Gait Assistive Device: Parallel Bars 50ft,20ft Wheelchair Training Does the Pt Use a Wheelchair?: Yes Wheelchair (FIM): 6 Wheelchair Distance: 3=150 ft (400plus) Wheelchair Level of Assist: 6 Type of Wheelchair: Manual Assessment Current Status: Good Progress PT Short Term Goals Short Term Goals Time Frame: Mar 14, 2016 Gait (FIM): 1 Gait Distance Comment: 20' Gait Level of Assist: 4 Gait Assistive Device: FWW Wheelchair Distance: 400' PT Director Of Hotel Operations Goals Director Of Hotel Operations Goals PT Director Of Hotel Operations Goals Time Frame: Mar 28, 2016 Transfers (B,C,W/C) (FIM): 5 Sit to Lying (QC): 6 Lying-Sitting on Side/Bed(QC): 6 Sit to Stand (QC): 4 Rollin Roll Left to Right (QC): 6 Chair/Cuo-di-Ybjva Xfer(QC): 4 Car Transfer (QC): 4 Does the Patient Walk: Yes Gait (FIM): 2 Distance: 50' Walk 10 feet (QC): 4 Walk 10ft-Uneven Surface(QC): 4 Walk 50ft with 2 Turns (QC): 4 Gait Level of Assist: 5 Gait Assistive Device: FWW Stairs (FIM): 1 # of Steps: 1 1 Step (curb) (QC): 4 Stairs Level Of Assist: 5 PT Plan Treatment/Plan Treatment Plan: Continue Plan of Care Treatment Plan: Bed Mobility, Education, Functional Activity Anuj, Functional Strength, Group Therapy, Gait, Safety, Therapeutic Exercise, Transfers Treatment Duration: Mar 28, 2016 Visits Per Week: 10-11 Minutes/Day (M-F): 60-90 Minutes/Day (Sat/Lo): 15-30 Safety Risks/Education Patient Education: Gait Training, Transfer Techniques Teaching Recipient: Patient Teaching Methods: Demonstration, Discussion Response to Teaching: Verbalize Understanding, Return Demonstration, Reinforcement Needed Time/GCodes Time In: 1205 Time Out: 1225 Total Billed Treatment Time: 20 Total Billed Treatment 1,GT20m G Codes Necessary: MERLYN Huggins LIVESTOCK CARETAKER Mar 15, 2016 12:31
[2016-03-15] MEDS: lisINopril 5 MG (PRINIVIL) TABLET PO SCH (17:14)
[2016-03-15] MEDS: warFARin 2 MG (COUMADIN) TAB PO SCH (17:15)
[2016-03-15 18:35] VITALS: BP 104/58
[2016-03-15] MEDS: ATORVASTATIN 40 MG (LIPITOR) TABLET PO SCH (20:02)
--- NOTE | 2016-03-15 20:16 | Wound Care Progress Note ---
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 Wound margins are intact, with some cyanosis of areas of both anterior and posterior flaps. No dehiscence at this time. The patient has moderate pain in his amputation site. Review of Systems General: No Chills Pulmonary: No Dyspnea Cardiovascular: No: Chest Pain Objective Exam Last Set of Vital Signs Vital Signs Date Time Temp Pulse Resp B/P Pulse Ox O2 Delivery O2 Flow Rate FiO2 03/15/16 20:06 92 Room Air 03/15/16 18:35 97.5 60 16 104/58 Capillary Refill : I&O Intake and Output 03/15/16 00:00 Intake Total 1040 ml Output Total 875 ml Balance 165 ml Intake Oral 1040 ml Output Urine Total 875 ml # Voids 4 General: Alert, No Acute Distress Lungs: Normal Air Movement Skin: Other (L AKA wound, sutured closed. 25.5 x 0.8 x 0.1 cm, 100% eschar, periwound dusky with blistering in areas. No drainage.) Results Lab Laboratory Tests 03/15/16 05:04: INR Comment 2.8H, Prothrombin Time 29.2H Assessment/Plan Assessment/Plan Assessment/Plan 1. L thigh wound, s/p L AKA. 2. Peripheral arterial disease with gangrene of L foot. Plan: will follow with Dr. Dyson and Dr. Li. LOIS GR MD Mar 15, 2016 20:16
[2016-03-15] MEDS: MILK OF MAGNESIA 400 MG/5 ML 30 ML UDC PO PRN (20:18)
[2016-03-16] MEDS: HYDROcodone/APAP 10 MG/325 MG (LORTAB) TAB PO PRN (04:46)
[2016-03-16 05:04] VITALS: BP 137/65
[2016-03-16 05:56] LABS: INR 2.5 (0.8-1.4); PROTHROMBIN TIME PATIENT 26.8 SEC (12.2-14.7)
[2016-03-16] MEDS: PANTOPRAZOLE 40 MG (PROTONIX) TAB PO SCH (06:00)
[2016-03-16] MEDS: MAGNESIUM OXIDE (MAG-OX)400 MG TAB PO SCH ×2 (08:09→17:16)
[2016-03-16] MEDS: GABAPENTIN 100 MG (NEURONTIN) CAP PO SCH ×3 (08:09→20:49)
[2016-03-16] MEDS: CARVEDILOL 6.25 MG (COREG) TAB PO SCH ×2 (08:10→20:49)
[2016-03-16] MEDS: warFARin 2 MG (COUMADIN) TAB PO SCH (17:16)
[2016-03-16] MEDS: lisINopril 5 MG (PRINIVIL) TABLET PO SCH (17:16)
[2016-03-16 18:11] VITALS: BP 120/67
[2016-03-16] MEDS: ATORVASTATIN 40 MG (LIPITOR) TABLET PO SCH (20:49)
[2016-03-17 05:05] VITALS: BP 122/72
[2016-03-17 06:12] LABS: INR 2.9 (0.8-1.4)
[2016-03-17] MEDS: PANTOPRAZOLE 40 MG (PROTONIX) TAB PO SCH (06:12)
[2016-03-17] MEDS: HYDROcodone/APAP 10 MG/325 MG (LORTAB) TAB PO PRN ×2 (07:05→17:40)
[2016-03-17] MEDS: GABAPENTIN 100 MG (NEURONTIN) CAP PO SCH ×3 (08:01→20:37)
[2016-03-17] MEDS: MAGNESIUM OXIDE (MAG-OX)400 MG TAB PO SCH ×2 (08:01→17:40)
[2016-03-17] MEDS: CARVEDILOL 6.25 MG (COREG) TAB PO SCH ×2 (08:01→20:37)
--- NOTE | 2016-03-17 08:13 | Cardiology Progress Note ---
Subjective Subjective/Events-last exam Patient is in bed. Complains of constipation and mild abdominal discomfort. Reports small bowel movement over the weekend. Denies any CP or dyspnea. Review of Systems General: No Night Sweats, No Fatigue, No Malaise HEENT: No Visual Changes, No Dysphasia, No Sore Throat Pulmonary: No Dyspnea, No Cough, No Pleuritic Chest Pain Cardiovascular: No: Chest Pain, Edema, Palpitations, Paroxysmal Noc. Dyspnea Gastrointestinal: : Abdominal Pain: ConstipationNo: Nausea, Vomiting Genitourinary: No Dysuria, No Frequency Musculoskeletal: No: back pain, foot pain, neck pain Neurological: No: Change in speech, Confusion, Numbness, Weakness Objective-Cardiology Exam Last Set of Vital Signs Vital Signs 03/17/16 05:05 Temp 98.3 Pulse 67 Resp 16 B/P 122/72 Pulse Ox 96 O2 Delivery Room Air Capillary Refill : I&O Intake and Output 03/17/16 00:00 Intake Total 962 ml Balance 962 ml Intake Oral 962 ml # Voids 6 # Bowel Movements 2 General: Alert, No Acute Distress HEENT: Atraumatic, PERRLA, EOMI, Mucous Memb Moist/[place] Neck: Supple, No JVD Lungs: Normal Air Movement Heart: Regular Rate Abdomen: Normal Bowel Sounds, Soft, No Tenderness Extremities: Other (Left AKa as per above) Skin: Other (L AKA wound, sutured closed. 25.5 x 0.8 x 0.1 cm, 100% eschar, periwound dusky with blistering in areas. No drainage.) Neuro: Normal Speech, Cranial Nerves 3-12 NL Psych/Mental Status: Mental Status NL, Mood NL A/P-Cardiology Admission Diagnosis PVD s/p L AKA CAD CHF AVR Assessment/Plan Extensive peripheral arterial disease, seen and followed by heart and vascular care. Had history of femoropopliteal bypass on the left side, aggressive percutaneous revascularization. Now s/p L AKA by Dr. Sinclair. Patient recovering well. Continue to monitor. Coronary artery disease status post CABG 2 with SAMUEL to LAD and vein graft to RCA in 2005. Patient had acute myocardial infarction with elevated troponin on 04/14. He had with cardiac catheterization April 19, 2014 revealing total occlusion of circumflex artery, very small artery has been chronically occluded. Patent SAMUEL to LAD and vein graft to large dominant RCA with good flow in the system. Moderate disease in the first diagonal artery that was intermediate in size. Abnormal troponin was due to occluded circumflex in addition to stress of having severe anemia at the time. No intervention was warranted, continue to monitor. CHF, chronic LV systolic dysfunction, ischemic in nature. Most recent 2D Echo 03/13/16 revealed EF improved to 50%. Status post aortic valve replacement in 2005. Maintained on Coumadin. INR therapeutic. Continue to monitor. Constipation- managed by PCP Carotid stenosis, currently followed by Dr. Elio Li. Hypertension-controlled. Continue current medications Hyperlipidemia, managed as outpatient. Continue to monitor History of pulmonary hypertension [id number] reports he recently stopped smoking back in March 2015 History of noncompliance with medications Clinical Quality Measures DVT/VTE Risk/Contraindication: Risk Factor Score Per Nursin RFS Level Per Nursing on Admit: 4+=Very High ANSON LEON Mar 17, 2016 08:13
--- NOTE | 2016-03-17 09:32 | Physical Therapy Daily Note ---
PT Daily Note-Current Subjective Pt. c/o he has had problems having BM, has had smears and been to bathroom several times. Not sure he can really get up and move about but with some encouragement pt. agrees to try. Appearance eyes closed most of the time , gags a couple times secondary to nausea, given hong and clothe. Mental Status Patient Orientation: Normal For Age Transfers Functional [place] Measure 0=Not Assessed/NA 4=Minimal Assistance 1=Total Assistance 5=Supervision or Setup 2=Maximal Assistance 6=Modified [place] 3=Moderate Assistance 7=Complete IndependenceIRFPAI Quality Coding Scale 6 Independent with activity with or without an assistive device 5 Patient requires set up or clean up by helper. Patient completes activity by themselves 4 Supervision or touching assist (CGA). [place] provide cues , steadying assist 3 The helper provides less than half the effort to complete the activity 2 The helper provides more than half the effort to complete the activity 1 Dependent. The helper does all the effort to complete an activity 7 Patient refused to complete or attempt activity 9 The patient did not perform the activity before the current illness or injury 88 Not attempted due to Medical conditions or safety concerns Transfers (B, C, W/C) (FIM): 6 Scootin Rollin Supine to/from Sit: 6 Sit to/from Stand: 6 Bed to/from Chair: 6 Wheelchair Training Does the Pt Use a Wheelchair?: Yes Wheelchair Distance: 3=150 ft (x3) Wheelchair Level of Assist: 6 Type of Wheelchair: Manual Exercises Supine Ex: Bridging, Ankle pumps, Quad Set, Rolling, Glut sets, Heel Slides, Short Arc Quads, Scooting, Straight leg raise, Hip abd/add Supine Reps: 10 (x2) Treatments pt. on toilet x 2 during Rx. cleaned and donned brief secondary to diarrhea. bedding and cushion padding in w/c all changed out. Laundry to washer etc. Assessment Current Status: Fair Progress pt. c/o nausea, constipation yet loose stools, nursing notified, pt. encouraged to order 7up PT Short Term Goals Short Term Goals Time Frame: Mar 14, 2016 Gait (FIM): 1 Gait Distance Comment: 20' Gait Level of Assist: 4 Gait Assistive Device: FWW Wheelchair Distance: 400' PT Protozoologist Goals Protozoologist Goals PT Protozoologist Goals Time Frame: Mar 28, 2016 Transfers (B,C,W/C) (FIM): 5 Sit to Lying (QC): 6 Lying-Sitting on Side/Bed(QC): 6 Sit to Stand (QC): 4 Rollin Roll Left to Right (QC): 6 Chair/Shb-be-Zbiei Xfer(QC): 4 Car Transfer (QC): 4 Does the Patient Walk: Yes Gait (FIM): 2 Distance: 50' Walk 10 feet (QC): 4 Walk 10ft-Uneven Surface(QC): 4 Walk 50ft with 2 Turns (QC): 4 Gait Level of Assist: 5 Gait Assistive Device: FWW Stairs (FIM): 1 # of Steps: 1 1 Step (curb) (QC): 4 Stairs Level Of Assist: 5 PT Plan Treatment/Plan Treatment Plan: Continue Plan of Care Treatment Plan: Bed Mobility, Education, Functional Activity Anuj, Functional Strength, Group Therapy, Gait, Safety, Therapeutic Exercise, Transfers Treatment Duration: Mar 28, 2016 Visits Per Week: 10-11 Minutes/Day (M-F): 60-90 Minutes/Day (Sat/Lo): 15-30 Safety Risks/Education Patient Education: Transfer Techniques, Correct Positioning, Disease Process, Safety Issues Teaching Recipient: Patient Teaching Methods: Demonstration, Discussion Response to Teaching: Verbalize Understanding, Return Demonstration, Reinforcement Needed Time/GCodes Time In: 830 Time Out: 930 Total Billed Treatment Time: 60 Total Billed Treatment 1EX15m,FA45m G Codes Necessary: MERLYN Huggins REPAIRER [employer]OCKS Mar 17, 2016 09:32
[2016-03-17] MEDS: MILK OF MAGNESIA 400 MG/5 ML 30 ML UDC PO PRN (10:00)
--- NOTE | 2016-03-17 10:10 | Cardiology Progress Note ---
Subjective Subjective/Events-last exam patient is laying down in bed, still complaining of constipation. Denied any chest pain Objective-Cardiology Exam Last Set of Vital Signs Vital Signs 03/17/16 03/17/16 05:05 09:00 Temp 98.3 Pulse 67 Resp 16 B/P 122/72 Pulse Ox 96 O2 Delivery Room Air Capillary Refill : I&O Intake and Output 03/17/16 00:00 Intake Total 962 ml Balance 962 ml Intake Oral 962 ml # Voids 6 # Bowel Movements 2 General: Alert, No Acute Distress HEENT: Atraumatic, PERRLA, EOMI, Mucous Memb Moist/[place] Neck: Supple, No JVD Lungs: Normal Air Movement Heart: Regular Rate Abdomen: Normal Bowel Sounds, Soft, No Tenderness Extremities: Other (Left AKa as per above) Skin: Other (L AKA wound, sutured closed. 25.5 x 0.8 x 0.1 cm, 100% eschar, periwound dusky with blistering in areas. No drainage.) Neuro: Normal Speech, Cranial Nerves 3-12 NL Psych/Mental Status: Mental Status NL, Mood NL Results Lab Laboratory Tests Test 03/17/16 05:36 Range/Units INR Comment 2.9 H 0.8-1.4 Prothrombin Time 30.0 H 12.2-14.7 SEC A/P-Cardiology Admission Diagnosis PVD s/p L AKA CAD CHF AVR Assessment/Plan Extensive peripheral arterial disease, seen and followed by heart and vascular care. Had history of femoropopliteal bypass on the left side, aggressive percutaneous revascularization. Now s/p L AKA by Dr. Sinclair. Patient recovering well. Continue to monitor. Constipation, I will start him on Colace Coronary artery disease status post CABG 2 with SAMUEL to LAD and vein graft to RCA in 2005. Patient had acute myocardial infarction with elevated troponin on 04/14. He had with cardiac catheterization April 19, 2014 revealing total occlusion of circumflex artery, very small artery has been chronically occluded. Patent SAMUEL to LAD and vein graft to large dominant RCA with good flow in the system. Moderate disease in the first diagonal artery that was intermediate in size. Abnormal troponin was due to occluded circumflex in addition to stress of having severe anemia at the time. No intervention was warranted, continue to monitor. CHF, chronic LV systolic dysfunction, ischemic in nature. Most recent 2D Echo 03/13/16 revealed EF improved to 50%. Status post aortic valve replacement in 2005. Maintained on Coumadin. INR therapeutic. Continue to monitor. Constipation- managed by PCP Carotid stenosis, currently followed by Dr. Elio Li. Hypertension-controlled. Continue current medications Hyperlipidemia, managed as outpatient. Continue to monitor History of pulmonary hypertension [id number] reports he recently stopped smoking back in March 2015 History of noncompliance with medications Clinical Quality Measures DVT/VTE Risk/Contraindication: Risk Factor Score Per Nursin RFS Level Per Nursing on Admit: 4+=Very High MANUEL BASS MD Mar 17, 2016 10:10
[2016-03-17] MEDS: DOCUSATE SODIUM 100 MG (COLACE) CAP PO SCH ×2 (10:45→20:37)
--- NOTE | 2016-03-17 13:00 | Occupational Ther Daily Note ---
OT Current Status-Daily Note Subjective Pt in bed, states he is not feeling well today, is having nausea. Pt states he needs to have a BM. Pt declined OOB activity, but agrees to UE activity while in bed. Mental Status/Objective Functional [place] Measure 0=Not Assessed/NA 4=Minimal Assistance 1=Total Assistance 5=Supervision or Setup 2=Maximal Assistance 6=Modified [place] 3=Moderate Assistance 7=Complete [place] ADL-Treatment Functional [place] Measure 0=Not Assessed/NA 4=Minimal Assistance 1=Total Assistance 5=Supervision or Setup 2=Maximal Assistance 6=Modified [place] 3=Moderate Assistance 7=Complete IndependenceIRFPAI Quality Coding Scale 6 Independent with activity with or without an assistive device 5 Patient requires set up or clean up by helper. Patient completes activity by themselves 4 Supervision or touching assist (CGA). [place] provide cues , steadying assist 3 The helper provides less than half the effort to complete the activity 2 The helper provides more than half the effort to complete the activity 1 Dependent. The helper does all the effort to complete an activity 7 Patient refused to complete or attempt activity 9 The patient did not perform the activity before the current illness or injury 88 Not attempted due to Medical conditions or safety concerns Other Treatment Pt performed bilateral UE exercises at bed level to increase strength needed for ADLs and transfers. Pt performed shoulder flexion, abduction, horizontal abduction, biceps curls, and triceps extension exercises x20 reps with moderate resistance (red) theraband. Pt performed exercises slowly and took rest breaks between exercises. Pt completed tabletop peg activity with 2# weights in place to increase strength and fine motor coordination. One rest break secondary to fatigue. Graded clothespin activity with bilateral UE to increase mechanical systems control engineer/pinch strength. Pt completed putty activity with bilateral hands to increase hand strength. Pt able to remove small beads from putty with increased time. Pt in bed with needs met after session. OT Short Term Goals Short Term Goals Time Frame: Mar 14, 2016 Lower Body Dressing(FIM): 5 Toileting(FIM): 5 Toilet/Commode Transfer(FIM): 5 Shower Transfer(FIM): 4 Additional Short Term Goals: 1-Demonstrate ADL Tasks, 2-Verbalize Understanding , 3-ImproveStrength/Anuj 1=Demonstrate adherence to instructed precautions during ADL tasks. 2=Patient will verbalize/demonstrate understanding of assistive devices/ modifications for ADL. 3=Patient will improve strength/tolerance for activity to enable patient to perform ADL's. OT Residential Goals Getter Operator Goals Time Frame: Mar 28, 2016 Eating (QC): 6 Oral Hygiene (QC): 6 Grooming(FIM): 6 Bathing(FIM): 5 Shower/Bathe Self (QC): 6 Upper Body Dressing(FIM): 6 Upper Body Dressing (QC): 6 Lower Body Dressing(FIM): 6 Lower Body Dressing (QC): 6 On/Off Footwear (QC): 6 Toileting(FIM): 6 Toileting Hygiene (QC): 6 Toilet/Commode Transfer(FIM): 6 Toilet/Commode Transfer (QC): 6 Shower Transfer(FIM): 5 Additional Goals: 1-Demonstrate ADL Tasks, 2-Verbalize Understanding, 3- ImproveStrength/Anuj 1=Demonstrate adherence to instructed precautions during ADL tasks. 2=Patient will verbalize/demonstrate understanding of assistive devices/ modifications for ADL. 3=Patient will improve strength/tolerance for activity to enable patient to perform ADL's. OT Education/Plan Problem List/Assessment Pt s/p left AKA with decreased mobility, ADL functioning, and activity tolerance. Pt to benefit from skilled OT intervention for ADL training, transfers, strengthening, and safety education to maximize level of function and allow safe discharge plan. Discharge Recommendations Plan/Recommendations: Continue POC Treatment Plan/Plan of Care Patient would benefit from OT for education, treatment and training to promote independence in ADL's, mobility, safety and/or upper extremity function for ADL' s. Plan of Care: ADL Retraining, Functional Mobility, Group Exercise/Act as Ind, UE Funct Exercise/Act Treatment Duration: Mar 28, 2016 Visits Per Week: 10-11 Minutes/Day (M-F): 60-90 Minutes/Day (Sat/Lo): PRN Agreement: Yes Rehab Potential: Good Time/GCodes Start Time: 09:45 Stop Time: 10:45 Total Time Billed (hr/min): 60 Billed Treatment Time 1 visit, EXx4(60minutes) TANIKA ZEPEDA OT Mar 17, 2016 13:00
--- NOTE | 2016-03-17 13:23 | PM & R (SOAP) Progress Note ---
Subjective Subjective/Events-last exam Patient was seen in his room this afternoon Patient Modified Independent for transfers and for w/c mobility.Meds adjusted for constipation Appreciate Dr Hinson note Current labs reviewed Review of Systems Gastrointestinal: : Constipation: Nausea Objective Exam Last Set of Vital Signs Vital Signs Date Time Temp Pulse Resp B/P Pulse Ox O2 Delivery O2 Flow Rate FiO2 03/17/16 09:00 Room Air 03/17/16 05:05 98.3 67 16 122/72 96 Capillary Refill : I&O Intake and Output 03/17/16 00:00 Intake Total 962 ml Balance 962 ml Intake Oral 962 ml # Voids 6 # Bowel Movements 2 General: Alert, No Acute Distress HEENT: Atraumatic, PERRLA, EOMI, Mucous Memb Moist/[place] Neck: Supple, No JVD Lungs: Normal Air Movement Heart: Regular Rate Abdomen: Normal Bowel Sounds, Soft, No Tenderness Extremities: Other (Left AKa as per above) Skin: Other (L AKA wound, sutured closed. 25.5 x 0.8 x 0.1 cm, 100% eschar, periwound dusky with blistering in areas. No drainage.) Neuro: Normal Speech, Cranial Nerves 3-12 NL Psych/Mental Status: Mental Status NL, Mood NL Results Lab Laboratory Tests 03/15/16 05:04: INR Comment 2.8H, Prothrombin Time 29.2H 03/16/16 05:23: INR Comment 2.5H, Prothrombin Time 26.8H 03/17/16 05:36: INR Comment 2.9H, Prothrombin Time 30.0H Assessment/Plan Assessment Left AKA DR Guillermo Dillon for sever PVD Postop anemiia Hyponatremia Chronic anticoagulation on coumadin with supratherapeutic INR-will hold coumadin see orders-med dose being adjusted HTN controlled COPD on inhalers S/.P AVR 2004 Cardiomyopathy with EF 25% followed by Dr Solis in past-Appreciate DR Hinson note Discussed case with Wound care MD Last week Post op constipation meds adjusted Plan Continue PT/OT/Wound care and pain manageme Recheck Labs-done patient with hyponatremia and INR being monitored F/U with Dr Alvarez PCP Adjust coumadin dosage as needed-see orders Discharge remains set tentatively for 03-19-16 Recheck Labs See orders-done and reviewed Reconsult Dr Doan wound care see orders-done F/U with Dr Irma LEAHY Treat constipation /nausea CHARLIE VARGAS MD Mar 17, 2016 13:23
--- NOTE | 2016-03-17 14:34 | Physical Therapy Daily Note ---
PT Daily Note-Current Subjective Pt. states he has had a small BM and feels a little better but not the relief he needs. Pt. agrees to walking in parallel bars and ther ex Pain Numeric Pain Scale: 0-No Pain Mental Status Patient Orientation: Normal For Age Transfers Functional [place] Measure 0=Not Assessed/NA 4=Minimal Assistance 1=Total Assistance 5=Supervision or Setup 2=Maximal Assistance 6=Modified [place] 3=Moderate Assistance 7=Complete IndependenceIRFPAI Quality Coding Scale 6 Independent with activity with or without an assistive device 5 Patient requires set up or clean up by helper. Patient completes activity by themselves 4 Supervision or touching assist (CGA). [place] provide cues , steadying assist 3 The helper provides less than half the effort to complete the activity 2 The helper provides more than half the effort to complete the activity 1 Dependent. The helper does all the effort to complete an activity 7 Patient refused to complete or attempt activity 9 The patient did not perform the activity before the current illness or injury 88 Not attempted due to Medical conditions or safety concerns sup to sit and sit to stand all SBA Gait Training Does the Patient Walk?: Yes Gait (FIM): 2 Distance (FIM): 9=351-39 ft Gait Level of Assist: 5 Gait Persons Needed: 1 Gait Assistive Device: Parallel Bars gait in ;alicia;;e; bars 50ft x 2 no LOB, rests between Exercises Standin way Ex=Flex, Abd, Ext Standing Reps: 15 Assessment Current Status: Good Progress pt. up ad noah in w/c, TRFs mod I PT Short Term Goals Short Term Goals Time Frame: Mar 14, 2016 Gait (FIM): 1 Gait Distance Comment: 20' Gait Level of Assist: 4 Gait Assistive Device: FWW Wheelchair Distance: 400' PT Spare Person Goals Fpc Goals PT Fpc Goals Time Frame: Mar 28, 2016 Transfers (B,C,W/C) (FIM): 5 Sit to Lying (QC): 6 Lying-Sitting on Side/Bed(QC): 6 Sit to Stand (QC): 4 Rollin Roll Left to Right (QC): 6 Chair/Len-id-[place] Xfer(QC): 4 Car Transfer (QC): 4 Does the Patient Walk: Yes Gait (FIM): 2 Distance: 50' Walk 10 feet (QC): 4 Walk 10ft-Uneven Surface(QC): 4 Walk 50ft with 2 Turns (QC): 4 Gait Level of Assist: 5 Gait Assistive Device: FWW Stairs (FIM): 1 # of Steps: 1 1 Step (curb) (QC): 4 Stairs Level Of Assist: 5 PT Plan Treatment/Plan Treatment Plan: Continue Plan of Care Treatment Plan: Bed Mobility, Education, Functional Activity Anuj, Functional Strength, Group Therapy, Gait, Safety, Therapeutic Exercise, Transfers Treatment Duration: Mar 28, 2016 Visits Per Week: 10-11 Minutes/Day (M-F): 60-90 Minutes/Day (Sat/Lo): 15-30 Safety Risks/Education Patient Education: Gait Training, Transfer Techniques Teaching Recipient: Patient Teaching Methods: Demonstration, Discussion Response to Teaching: Verbalize Understanding, Return Demonstration, Reinforcement Needed Time/GCodes Time In: 1400 Time Out: 1430 Total Billed Treatment Time: 30 Total Billed Treatment 1,GT20,EX10 G Codes Necessary: MERLYN Huggins IS CONSULTANT Mar 17, 2016 14:34
--- NOTE | 2016-03-17 14:51 | Occupational Ther Daily Note ---
OT Current Status-Daily Note Subjective Pt in bed, states he is still having some nausea, but is agreeable to participate. Mental Status/Objective Functional [place] Measure 0=Not Assessed/NA 4=Minimal Assistance 1=Total Assistance 5=Supervision or Setup 2=Maximal Assistance 6=Modified [place] 3=Moderate Assistance 7=Complete [place] ADL-Treatment Supine to sit with modified independence. Pt donned shorts while at EOB. Pt able to don shorts after set up. Stood without assistance for pant hike. Transfer EOB to w/c with modified independence. Pt performed w/c mobility to laundry room. Pt retrieved clothing from laundry room and transported them back to room. Pt placed clean clothing back in closet at w/c level without assistance. Functional [place] Measure 0=Not Assessed/NA 4=Minimal Assistance 1=Total Assistance 5=Supervision or Setup 2=Maximal Assistance 6=Modified [place] 3=Moderate Assistance 7=Complete IndependenceIRFPAI Quality Coding Scale 6 Independent with activity with or without an assistive device 5 Patient requires set up or clean up by helper. Patient completes activity by themselves 4 Supervision or touching assist (CGA). [place] provide cues , steadying assist 3 The helper provides less than half the effort to complete the activity 2 The helper provides more than half the effort to complete the activity 1 Dependent. The helper does all the effort to complete an activity 7 Patient refused to complete or attempt activity 9 The patient did not perform the activity before the current illness or injury 88 Not attempted due to Medical conditions or safety concerns Other Treatment w/c mobility to therapy gym without assistance. Pt performed arc activity with bilateral UE with 2# weights in place to increase strength for functional activities. Fine motor task with nuts and bolts with 2# weights in place to increase strength and fine motor coordination. Pt tolerated both activities well. Pt returned to room and [place] [facility] [place] using grab bars for safety. Pt states he thinks he needs to sit on toilet for a while. Pt with call light in reach. Nurse aid notified. OT Short Term Goals Short Term Goals Time Frame: Mar 14, 2016 Lower Body Dressing(FIM): 5 Toileting(FIM): 5 Toilet/Commode Transfer(FIM): 5 Shower Transfer(FIM): 4 Additional Short Term Goals: 1-Demonstrate ADL Tasks, 2-Verbalize Understanding , 3-ImproveStrength/Anuj 1=Demonstrate adherence to instructed precautions during ADL tasks. 2=Patient will verbalize/demonstrate understanding of assistive devices/ modifications for ADL. 3=Patient will improve strength/tolerance for activity to enable patient to perform ADL's. OT Supervisor Cell Room Goals Supervisor Cell Room Goals Time Frame: Mar 28, 2016 Eating (QC): 6 Oral Hygiene (QC): 6 Grooming(FIM): 6 Bathing(FIM): 5 Shower/Bathe Self (QC): 6 Upper Body Dressing(FIM): 6 Upper Body Dressing (QC): 6 Lower Body Dressing(FIM): 6 Lower Body Dressing (QC): 6 On/Off Footwear (QC): 6 Toileting(FIM): 6 Toileting Hygiene (QC): 6 Toilet/Commode Transfer(FIM): 6 Toilet/Commode Transfer (QC): 6 Shower Transfer(FIM): 5 Additional Goals: 1-Demonstrate ADL Tasks, 2-Verbalize Understanding, 3- ImproveStrength/Anuj 1=Demonstrate adherence to instructed precautions during ADL tasks. 2=Patient will verbalize/demonstrate understanding of assistive devices/ modifications for ADL. 3=Patient will improve strength/tolerance for activity to enable patient to perform ADL's. OT Education/Plan Problem List/Assessment Pt s/p left AKA with decreased mobility, ADL functioning, and activity tolerance. Pt to benefit from skilled OT intervention for ADL training, transfers, strengthening, and safety education to maximize level of function and allow safe discharge plan. Discharge Recommendations Plan/Recommendations: Continue POC Treatment Plan/Plan of Care Patient would benefit from OT for education, treatment and training to promote independence in ADL's, mobility, safety and/or upper extremity function for ADL' s. Plan of Care: ADL Retraining, Functional Mobility, Group Exercise/Act as Ind, UE Funct Exercise/Act Treatment Duration: Mar 28, 2016 Visits Per Week: 10-11 Minutes/Day (M-F): 60-90 Minutes/Day (Sat/Lo): PRN Agreement: Yes Rehab Potential: Good Time/GCodes Start Time: 13:00 Stop Time: 13:30 Total Time Billed (hr/min): 30 Billed Treatment Time 1 visit, ADL(15minutes), EX(15minutes) TANIKA ZEPEDA OT Mar 17, 2016 14:51
[2016-03-17] MEDS: lisINopril 5 MG (PRINIVIL) TABLET PO SCH (17:41)
[2016-03-17] MEDS: warFARin 2 MG (COUMADIN) TAB PO SCH (17:41)
[2016-03-17 18:56] VITALS: BP 134/75
[2016-03-17] MEDS: ATORVASTATIN 40 MG (LIPITOR) TABLET PO SCH (20:37)
[2016-03-17] MEDS ORDERED: DOCUSATE SODIUM 100 MG (COLACE) CAP PO SCH (21:00)
[2016-03-18 06:00] VITALS: BP 107/61
[2016-03-18 06:15] LABS: INR 3.1 (0.8-1.4); PROTHROMBIN TIME PATIENT 31.8 SEC (12.2-14.7)
[2016-03-18] MEDS: PANTOPRAZOLE 40 MG (PROTONIX) TAB PO SCH (06:21)
[2016-03-18] MEDS: warFARin 2 MG (COUMADIN) TAB PO SCH (07:29)
[2016-03-18] MEDS: DOCUSATE SODIUM 100 MG (COLACE) CAP PO SCH ×2 (08:45→20:44)
[2016-03-18] MEDS: CARVEDILOL 6.25 MG (COREG) TAB PO SCH ×2 (08:45→20:43)
[2016-03-18] MEDS: MAGNESIUM OXIDE (MAG-OX)400 MG TAB PO SCH ×2 (08:45→17:23)
[2016-03-18] MEDS: GABAPENTIN 100 MG (NEURONTIN) CAP PO SCH ×3 (08:45→20:43)
--- NOTE | 2016-03-18 09:02 | Cardiology Progress Note ---
Subjective Subjective/Events-last exam Patient in bed. No new complaint. Denies any CP or dyspnea. States constipation has resolved. Review of Systems General: No Night Sweats, No Fatigue, No Malaise HEENT: No Visual Changes, No Dysphasia, No Sore Throat Pulmonary: No Dyspnea, No Cough Cardiovascular: No: Chest Pain, Edema, Palpitations Gastrointestinal: No: Constipation, Diarrhea, Nausea, Vomiting Genitourinary: No Dysuria, No Frequency Musculoskeletal: No: back pain, neck pain Neurological: No: Numbness, Weakness Objective-Cardiology Exam Last Set of Vital Signs Vital Signs 03/18/16 03/18/16 06:00 08:48 Temp 98.3 Pulse 59 Resp 17 B/P 107/61 Pulse Ox 93 O2 Delivery Room Air Capillary Refill : I&O Intake and Output 03/18/16 00:00 Intake Total 1384 ml Balance 1384 ml Intake Oral 1384 ml # Voids 8 # Bowel Movements 1 General: Alert, No Acute Distress HEENT: Atraumatic, PERRLA, EOMI, Mucous Memb Moist/[place] Neck: Supple, No JVD Lungs: Normal Air Movement Heart: Regular Rate Abdomen: Normal Bowel Sounds, Soft, No Tenderness Extremities: Other (Left AKa as per above) Skin: Other (L AKA wound, sutured closed. 25.5 x 0.8 x 0.1 cm, 100% eschar, periwound dusky with blistering in areas. No drainage.) Neuro: Normal Speech, Cranial Nerves 3-12 NL Psych/Mental Status: Mental Status NL, Mood NL A/P-Cardiology Admission Diagnosis PVD s/p L AKA CAD CHF AVR Assessment/Plan Extensive peripheral arterial disease, seen and followed by heart and vascular care. Had history of femoropopliteal bypass on the left side, aggressive percutaneous revascularization. Now s/p L AKA by Dr. Sinclair. Patient recovering well. Continue to monitor. Constipation, resolved. Coronary artery disease status post CABG 2 with SAMUEL to LAD and vein graft to RCA in 2005. Patient had acute myocardial infarction with elevated troponin on 04/14. He had with cardiac catheterization April 19, 2014 revealing total occlusion of circumflex artery, very small artery has been chronically occluded. Patent SAMUEL to LAD and vein graft to large dominant RCA with good flow in the system. Moderate disease in the first diagonal artery that was intermediate in size. Abnormal troponin was due to occluded circumflex in addition to stress of having severe anemia at the time. No intervention was warranted, continue to monitor. CHF, chronic LV systolic dysfunction, ischemic in nature. Most recent 2D Echo 03/13/16 revealed EF improved to 50%. Status post aortic valve replacement in 2005. Maintained on Coumadin. INR 3.1 today. Decrease Coumadin dose and continue to monitor. Constipation- managed by PCP Carotid stenosis, currently followed by Dr. Elio Li. Hypertension-controlled. Continue current medications Hyperlipidemia, managed as outpatient. Continue to monitor History of pulmonary hypertension El-mkwvtqlail-gnuftya reports he recently stopped smoking back in March 2015 History of noncompliance with medications Clinical Quality Measures DVT/VTE Risk/Contraindication: Risk Factor Score Per Nursin RFS Level Per Nursing on Admit: 4+=Very High ANSON LEON Mar 18, 2016 09:02
--- NOTE | 2016-03-18 09:34 | Physical Therapy Daily Note ---
PT Daily Note-Current Subjective Patient is in bed and very agreeable to participate with PT. No c/o at this time. Pain Numeric Pain Scale: 5-Moderate Pain Location: Left Location Body Site: Thigh (AKA) Pain Description: Ache Mental Status Patient Orientation: Normal For Age Transfers Functional [place] Measure 0=Not Assessed/NA 4=Minimal Assistance 1=Total Assistance 5=Supervision or Setup 2=Maximal Assistance 6=Modified [place] 3=Moderate Assistance 7=Complete IndependenceIRFPAI Quality Coding Scale 6 Independent with activity with or without an assistive device 5 Patient requires set up or clean up by helper. Patient completes activity by themselves 4 Supervision or touching assist (CGA). [place] provide cues , steadying assist 3 The helper provides less than half the effort to complete the activity 2 The helper provides more than half the effort to complete the activity 1 Dependent. The helper does all the effort to complete an activity 7 Patient refused to complete or attempt activity 9 The patient did not perform the activity before the current illness or injury 88 Not attempted due to Medical conditions or safety concerns Transfers (B, C, W/C) (FIM): 6 Scootin Rollin Roll Left to Right (QC): 6 Supine to/from Sit: 6 Sit to/from Stand: 6 Sit to Lying (QC): 6 Sit to Stand (QC): 6 Chair/Ymp-ht-Qxwtd Xfer(QC): 6 Bed to/from Chair: 6 Car Transfer (QC): 6 (simulated) Gait Training Does the Patient Walk?: Yes Gait (FIM): 6 Distance (FIM): 3=150 ft Distance: 150' x 2 Walk 10 feet (QC): 5 Walk 50 ft with 2 Turns(QC): 5 Walk 150 ft (QC): 5 Walking 10ft on uneven surface: 5 Gait Level of Assist: 6 Gait Assistive Device: FWW safe and functional Wheelchair Training Does the Pt Use a Wheelchair?: Yes Wheelchair (FIM): 7 Wheelchair Distance: 3=150 ft Distance: 300' x 2 Wheelchair Level of Assist: 7 Wheel 50 ft with 2 turns (QC): 6 Wheel 150 ft (QC): 6 Type of Wheelchair: Manual Stair Training Stair Training: Handrails/: uses walker Stairs (FIM): 2 #of Steps: 4 1 Step (curb) (QC): 6 4 Steps (QC): 6 12 Steps (QC): 88 Stairs: Pattern: Hops Level of Assist: 6 Balance Picking up an Object (QC): 5 (from w/c with use of car conditioner) Exercises Seated Therapy Exercises: Sit to stand (x 10 reps) NuStep Minutes: 15 (to facilitate strength and improve mobility) NuStep Workload: 5 Assessment Patient returned to room and is up ad noah in room and bathroom. Patient to dismiss to home tomorrow with assistance of friends and home care. PT Short Term Goals Short Term Goals Time Frame: Mar 14, 2016 Gait (FIM): 1 Gait Distance Comment: 20' Gait Level of Assist: 4 Gait Assistive Device: FWW Wheelchair Distance: 400' PT Cone Operator Goals Cone Operator Goals PT Nursing Home Goals Time Frame: Mar 28, 2016 Transfers (B,C,W/C) (FIM): 5 (met 03/18/16) Sit to Lying (QC): 6 (met 03/18/16) Lying-Sitting on Side/Bed(QC): 6 (met 03/18/16) Sit to Stand (QC): 4 (met 03/18/16) Rollin (met 03/18/16) Roll Left to Right (QC): 6 (met 03/18/16) Chair/Vhr-wc-Uxbho Xfer(QC): 4 (met 03/18/16) Car Transfer (QC): 4 (met 03/18/16) Does the Patient Walk: Yes Gait (FIM): 2 (met 03/18/16) Distance: 50' Walk 10 feet (QC): 4 (met 03/18/16) Walk 10ft-Uneven Surface(QC): 4 (met 03/18/16) Walk 50ft with 2 Turns (QC): 4 (met 03/18/16) Gait Level of Assist: 5 (met 03/18/16) Gait Assistive Device: FWW Stairs (FIM): 1 (met 03/18/16) # of Steps: 1 (met 03/18/16) 1 Step (curb) (QC): 4 (met 03/18/16) Stairs Level Of Assist: 5 (met 03/18/16) PT Plan Treatment/Plan Treatment Plan: Continue Plan of Care Treatment Plan: Bed Mobility, Education, Functional Activity Anuj, Functional Strength, Group Therapy, Gait, Safety, Therapeutic Exercise, Transfers Treatment Duration: Mar 28, 2016 Visits Per Week: 10-11 Minutes/Day (M-F): 60-90 Minutes/Day (Sat/Lo): 15-30 Safety Risks/Education Patient Education: Gait Training, Steps Teaching Recipient: Patient Teaching Methods: Demonstration, Discussion Response to Teaching: Verbalize Understanding, Return Demonstration Discharge Recommendations Therapy D/C Recommendations: Home w/ Family Support (friend support), Physical Therapy Home Care Equpiment Recommendations-D/C: Front Wheeled Walker (estabilished prior per patient report), Manual Wheelchair (will be issued upon dismissal per ) Time/GCodes Time In: 830 Time Out: 930 Total Billed Treatment Time: 60 Total Billed Treatment 1 visit [facility] 15 min GT 20 min EX x 2 25 min ANTWAN VASQUEZ PT Mar 18, 2016 09:33
--- NOTE | 2016-03-18 10:15 | PM & R (SOAP) Progress Note ---
Subjective Subjective/Events-last exam Patient was seen in his room this AM Patient Modified Independent for transfers.Current meds reviewed as well as Labs nausea resolved Objective Exam Last Set of Vital Signs Vital Signs Date Time Temp Pulse Resp B/P Pulse Ox O2 Delivery O2 Flow Rate FiO2 03/18/16 08:48 Room Air 03/18/16 06:00 98.3 59 17 107/61 93 Capillary Refill : I&O Intake and Output 03/18/16 00:00 Intake Total 1384 ml Balance 1384 ml Intake Oral 1384 ml # Voids 8 # Bowel Movements 1 General: Alert, No Acute Distress HEENT: Atraumatic, PERRLA, EOMI, Mucous Memb Moist/[place] Neck: Supple, No JVD Lungs: Normal Air Movement Heart: Regular Rate Abdomen: Normal Bowel Sounds, Soft, No Tenderness Extremities: Other (Left AKa as per above) Skin: Other (L AKA wound, sutured closed. 25.5 x 0.8 x 0.1 cm, 100% eschar, periwound dusky with blistering in areas. No drainage.) Neuro: Normal Speech, Cranial Nerves 3-12 NL Psych/Mental Status: Mental Status NL, Mood NL Results Lab Laboratory Tests 03/16/16 05:23: INR Comment 2.5H, Prothrombin Time 26.8H 03/17/16 05:36: INR Comment 2.9H, Prothrombin Time 30.0H 03/18/16 05:53: INR Comment 3.1H, Prothrombin Time 31.8H Assessment/Plan Assessment Left AKA DR Guillermo Dillon for sever PVD Postop anemiia Hyponatremia-improving Chronic anticoagulation on coumadin with supratherapeutic INR-will hold coumadin see orders-med dose being adjusted HTN controlled COPD on inhalers S/.P AVR 2004 Cardiomyopathy with EF 25% followed by Dr Solis in past-Appreciate DR Hinson note Discussed case with Wound care MD Last week Post op constipation meds adjusted Plan Continue PT/OT/Wound care and pain management Recheck Labs-done patient with hyponatremia and INR being monitored F/U with Dr Alvarez PCP Adjust coumadin dosage as needed-see orders Discharge remains set tentatively for 03-19-16 Recheck Labs See orders-done and reviewed Reconsult Dr Doan wound care see orders-done F/U with Dr Solis PRN Treat constipation /nausea-done CHARLIE VARGAS MD Mar 18, 2016 10:14
[2016-03-18] MEDS: HYDROcodone/APAP 10 MG/325 MG (LORTAB) TAB PO PRN ×2 (10:36→17:23)
--- NOTE | 2016-03-18 12:51 | Occupational Ther Daily Note ---
OT Current Status-Daily Note Subjective Pt agrees to treatment this am. Pt reports 6/10 left LE pain, requests pain pill. RN notified and provided pain medication. Mental Status/Objective Functional [place] Measure 0=Not Assessed/NA 4=Minimal Assistance 1=Total Assistance 5=Supervision or Setup 2=Maximal Assistance 6=Modified [place] 3=Moderate Assistance 7=Complete [place] ADL-Treatment Pt agreeable to shower this am. Pt doffed clothing without assistance. Stand pivot transfer w/c <-> shower bench with modified independence using grab bars. Pt able to wash/dry all areas with modified independence. Left LE dressing covered to prevent getting wet. Pt retrieved clothing from closet at w/c level without assistance. Don pullover shirt with modified independence. Pt donned underwear and pants with modified independence. Pt donned left sock independently. Transfer w/c <-> BSC over toilet with modified independence using grab bar. Pt able to complete toileting hygiene and clothing management with modified independence. Grooming completed seated at sink with modified independence. Oral care with modified independence. Pt states he has tub/shower at home with shower bench. W/c mobility to shower room without assistance. Pt completed tub/shower transfer using shower bench and grab bars with verbal cues. Plan is for pt to d/c home tomorrow, has no questions. Functional [place] Measure 0=Not Assessed/NA 4=Minimal Assistance 1=Total Assistance 5=Supervision or Setup 2=Maximal Assistance 6=Modified [place] 3=Moderate Assistance 7=Complete IndependenceIRFPAI Quality Coding Scale 6 Independent with activity with or without an assistive device 5 Patient requires set up or clean up by helper. Patient completes activity by themselves 4 Supervision or touching assist (CGA). [place] provide cues , steadying assist 3 The helper provides less than half the effort to complete the activity 2 The helper provides more than half the effort to complete the activity 1 Dependent. The helper does all the effort to complete an activity 7 Patient refused to complete or attempt activity 9 The patient did not perform the activity before the current illness or injury 88 Not attempted due to Medical conditions or safety concerns Eating (FIM): 7 (Pt reports feeding self, cutting food, and managing containers without assistance.) Eating (QC): 6 Grooming (FIM): 6 Oral Hygiene (QC): 6 Toileting Hygiene (QC): 6 Bathing (FIM): 6 Upper Body (FIM): 6 Upper Body Dressing (QC): 6 Lower Body Dressing (FIM): 6 Lower Body Dressing (QC): 6 On/Off Footwear (QC): 6 Toileting (FIM): 6 Toilet/Commode Transfer (FIM): 6 Toilet Transfer (QC): 6 Tub Transfer(FIM): 6 Shower Transfer(FIM): 6 Shower/Bathe Self (QC): 6 Other Treatment W/c mobility to therapy gym. Pt performed bilateral UE exercises to increase strength for ADLs and transfers. Pt performed shoulder flexion, abduction, biceps curls, and triceps extension exercises x20 reps with 3# weights. Rest breaks between exercises. Pt performed fine motor task with nuts and bolts with 2# weights to increase strength and fine motor coordination. Arm bike x15 minutes to increase overall strength and activity tolerance. Pt completed task with steady pace, no rest breaks needed. Pt returned to room, sitting in w/c with needs met after session. OT Short Term Goals Short Term Goals Time Frame: Mar 14, 2016 Lower Body Dressing(FIM): 5 Toileting(FIM): 5 Toilet/Commode Transfer(FIM): 5 Shower Transfer(FIM): 4 Additional Short Term Goals: 1-Demonstrate ADL Tasks, 2-Verbalize Understanding , 3-ImproveStrength/Anuj 1=Demonstrate adherence to instructed precautions during ADL tasks. 2=Patient will verbalize/demonstrate understanding of assistive devices/ modifications for ADL. 3=Patient will improve strength/tolerance for activity to enable patient to perform ADL's. OT Apartment Property Manager Goals Apartment Property Manager Goals Time Frame: Mar 28, 2016 Eating (QC): 6 (met) Oral Hygiene (QC): 6 (met 03/18/16) Grooming(FIM): 6 (met 03/18/16) Bathing(FIM): 5 (met 03/18/16) Shower/Bathe Self (QC): 6 (met 03/18/16) Upper Body Dressing(FIM): 6 (met 03/18/16) Upper Body Dressing (QC): 6 (met 03/18/16) Lower Body Dressing(FIM): 6 (met 03/18/16) Lower Body Dressing (QC): 6 (met 03/18/16) On/Off Footwear (QC): 6 (met 03/18/16) Toileting(FIM): 6 (met ) Toileting Hygiene (QC): 6 (met 03/18/16) Toilet/Commode Transfer(FIM): 6 (met 03/18/16) Toilet/Commode Transfer (QC): 6 (met 03/18/16) Shower Transfer(FIM): 5 (03/18/16) Additional Goals: 1-Demonstrate ADL Tasks, 2-Verbalize Understanding, 3- ImproveStrength/Anuj 1=Demonstrate adherence to instructed precautions during ADL tasks. 2=Patient will verbalize/demonstrate understanding of assistive devices/ modifications for ADL. 3=Patient will improve strength/tolerance for activity to enable patient to perform ADL's. OT Education/Plan Problem List/Assessment Pt s/p left AKA with decreased mobility, ADL functioning, and activity tolerance. Pt to benefit from skilled OT intervention for ADL training, transfers, strengthening, and safety education to maximize level of function and allow safe discharge plan. Discharge Recommendations Plan/Recommendations: Continue POC Treatment Plan/Plan of Care Patient would benefit from OT for education, treatment and training to promote independence in ADL's, mobility, safety and/or upper extremity function for ADL' s. Plan of Care: ADL Retraining, Functional Mobility, Group Exercise/Act as Ind, UE Funct Exercise/Act Treatment Duration: Mar 28, 2016 Visits Per Week: 10-11 Minutes/Day (M-F): 60-90 Minutes/Day (Sat/Lo): PRN Agreement: Yes Rehab Potential: Good Time/GCodes Start Time: 10:05 Stop Time: 11:35 Total Time Billed (hr/min): 90 Billed Treatment Time 1 visit, ADLx3(45minutes), EXx3(45minutes) TANIKA ZEPEDA OT Mar 18, 2016 12:51
--- NOTE | 2016-03-18 14:03 | Physical Therapy Daily Note ---
PT Daily Note-Current Subjective Patient agrees to PT. Pain Numeric Pain Scale: 0-No Pain Location: No Pain Reported Mental Status Patient Orientation: Normal For Age Transfers Functional [place] Measure 0=Not Assessed/NA 4=Minimal Assistance 1=Total Assistance 5=Supervision or Setup 2=Maximal Assistance 6=Modified [place] 3=Moderate Assistance 7=Complete IndependenceIRFPAI Quality Coding Scale 6 Independent with activity with or without an assistive device 5 Patient requires set up or clean up by helper. Patient completes activity by themselves 4 Supervision or touching assist (CGA). [place] provide cues , steadying assist 3 The helper provides less than half the effort to complete the activity 2 The helper provides more than half the effort to complete the activity 1 Dependent. The helper does all the effort to complete an activity 7 Patient refused to complete or attempt activity 9 The patient did not perform the activity before the current illness or injury 88 Not attempted due to Medical conditions or safety concerns Transfers (B, C, W/C) (FIM): 6 Scootin Rollin Roll Left to Right (QC): 6 Supine to/from Sit: 6 Sit to/from Stand: 6 Sit to Lying (QC): 6 Sit to Stand (QC): 6 Chair/Aey-ob-Qgszd Xfer(QC): 6 Bed to/from Chair: 6 Car Transfer (QC): 6 (simulated) Gait Training Does the Patient Walk?: Yes Gait (FIM): 6 Distance (FIM): 3=150 ft Distance: 175' Walk 10 feet (QC): 6 Walk 50 ft with 2 Turns(QC): 6 Walk 150 ft (QC): 6 Walking 10ft on uneven surface: 6 Gait Level of Assist: 6 Gait Assistive Device: FWW Wheelchair Training Does the Pt Use a Wheelchair?: Yes Wheelchair (FIM): 7 Wheelchair Distance: 3=150 ft Distance: >1000' Wheelchair Level of Assist: 7 Wheel 50 ft with 2 turns (QC): 6 Wheel 150 ft (QC): 6 Type of Wheelchair: Manual up and down ramp Assessment Patient tolerated treatment and returned to room independently with w/c. Plan dismissal to home tomorrow. PT Short Term Goals Short Term Goals Time Frame: Mar 14, 2016 Gait (FIM): 1 Gait Distance Comment: 20' Gait Level of Assist: 4 Gait Assistive Device: FWW Wheelchair Distance: 300' x 2 PT Keeper Helper Goals Keeper Helper Goals PT Half-Way Goals Time Frame: Mar 28, 2016 Transfers (B,C,W/C) (FIM): 5 (met 03/18/16) Sit to Lying (QC): 6 (met 03/18/16) Lying-Sitting on Side/Bed(QC): 6 (met 03/18/16) Sit to Stand (QC): 4 (met 03/18/16) Rollin (met 03/18/16) Roll Left to Right (QC): 6 (met 03/18/16) Chair/Ell-pk-Bydeq Xfer(QC): 4 (met 03/18/16) Car Transfer (QC): 4 (met 03/18/16) Does the Patient Walk: Yes Gait (FIM): 2 (met 03/18/16) Distance: 50' Walk 10 feet (QC): 4 (met 03/18/16) Walk 10ft-Uneven Surface(QC): 4 (met 03/18/16) Walk 50ft with 2 Turns (QC): 4 (met 03/18/16) Gait Level of Assist: 5 (met 03/18/16) Gait Assistive Device: FWW Stairs (FIM): 1 (met 03/18/16) # of Steps: 1 (met 03/18/16) 1 Step (curb) (QC): 4 (met 03/18/16) Stairs Level Of Assist: 5 (met 03/18/16) PT Plan Treatment/Plan Treatment Plan: Continue Plan of Care Treatment Plan: Bed Mobility, Education, Functional Activity Anuj, Functional Strength, Group Therapy, Gait, Safety, Therapeutic Exercise, Transfers Treatment Duration: Mar 28, 2016 Visits Per Week: 10-11 Minutes/Day (M-F): 60-90 Minutes/Day (Sat/Lo): 15-30 Time/GCodes Time In: 1330 Time Out: 1400 Total Billed Treatment Time: 30 Total Billed Treatment 1 visit [facility] 20 min GT 10 min ANTWAN VASQUEZ PT Mar 18, 2016 14:03
[2016-03-18] MEDS ORDERED: GABA-486 PO ×3 (14:27)
[2016-03-18] MEDS ORDERED: WARF2TAB PO (14:27)
[2016-03-18] MEDS ORDERED: DOCU100C37 PO (14:27)
[2016-03-18] MEDS ORDERED: HYDR-3812 PO (14:28)
--- NOTE | 2016-03-18 16:44 | Cardiology Progress Note ---
Subjective Subjective/Events-last exam Patient is in bed, feeling better, no new complaint Review of Systems General: No Chills, No Night Sweats, No Fatigue, No Malaise, No Appetite, No Other HEENT: No Head Aches, No Visual Changes, No Eye Pain, No Ear Pain, No Dysphasia , No Sinus Congestion, No Post Nasal Drip, No Sore Throat, No Other Pulmonary: DyspneaNo Cough, No Pleuritic Chest Pain, No Other Cardiovascular: No: Chest Pain, Edema, Lt Headedness, Orthopnea, Other, Palpitations, Paroxysmal Noc. Dyspnea Objective-Cardiology Exam Last Set of Vital Signs Vital Signs 03/18/16 03/18/16 06:00 08:48 Temp 98.3 Pulse 59 Resp 17 B/P 107/61 Pulse Ox 93 O2 Delivery Room Air Capillary Refill : I&O Intake and Output 03/18/16 00:00 Intake Total 1384 ml Balance 1384 ml Intake Oral 1384 ml # Voids 8 # Bowel Movements 1 General: Alert, No Acute Distress HEENT: Atraumatic, PERRLA, EOMI, Mucous Memb Moist/[place] Neck: Supple, No JVD Lungs: Normal Air Movement Heart: Regular Rate Abdomen: Normal Bowel Sounds, Soft, No Tenderness Extremities: Other (Left AKa as per above) Skin: Other (L AKA wound, sutured closed. 25.5 x 0.8 x 0.1 cm, 100% eschar, periwound dusky with blistering in areas. No drainage.) Neuro: Normal Speech, Cranial Nerves 3-12 NL Psych/Mental Status: Mental Status NL, Mood NL Results Lab Laboratory Tests Test 03/18/16 05:53 Range/Units INR Comment 3.1 H 0.8-1.4 Prothrombin Time 31.8 H 12.2-14.7 SEC A/P-Cardiology Admission Diagnosis PVD s/p L AKA CAD CHF AVR Assessment/Plan Extensive peripheral arterial disease, seen and followed by heart and vascular care. Had history of femoropopliteal bypass on the left side, aggressive percutaneous revascularization. Now s/p L AKA by Dr. Sinclair. Patient recovering well. Continue to monitor. Coronary artery disease status post CABG 2 with SAMUEL to LAD and vein graft to RCA in 2005. Patient had acute myocardial infarction with elevated troponin on 04/14. He had with cardiac catheterization April 19, 2014 revealing total occlusion of circumflex artery, very small artery has been chronically occluded. Patent SAMUEL to LAD and vein graft to large dominant RCA with good flow in the system. Moderate disease in the first diagonal artery that was intermediate in size. Abnormal troponin was due to occluded circumflex in addition to stress of having severe anemia at the time. No intervention was warranted, continue to monitor. CHF, chronic LV systolic dysfunction, ischemic in nature. Most recent 2D Echo 03/13/16 revealed EF improved to 50%. Status post aortic valve replacement in 2005. Maintained on Coumadin. INR 3.1 today. Decrease Coumadin dose and continue to monitor. Carotid stenosis, currently followed by Dr. Elio Li. Hypertension-controlled. Continue current medications Hyperlipidemia, managed as outpatient. Continue to monitor History of pulmonary hypertension Ol-idvkneeiec-ykaqscx reports he recently stopped smoking back in March 2015 History of noncompliance with medications Clinical Quality Measures DVT/VTE Risk/Contraindication: Risk Factor Score Per Nursin RFS Level Per Nursing on Admit: 4+=Very High MANUEL BASS MD Mar 18, 2016 16:44
[2016-03-18] MEDS: lisINopril 5 MG (PRINIVIL) TABLET PO SCH (17:23)
[2016-03-18 18:51] VITALS: BP 99/61
[2016-03-18] MEDS: ATORVASTATIN 40 MG (LIPITOR) TABLET PO SCH (20:43)
[2016-03-19] MEDS: PANTOPRAZOLE 40 MG (PROTONIX) TAB PO SCH (05:54)
[2016-03-19 06:00] VITALS: BP 115/72
[2016-03-19 06:15] LABS: INR 3.3 (0.8-1.4); PROTHROMBIN TIME PATIENT 33.4 SEC (12.2-14.7)
[2016-03-19] MEDS: warFARin 2 MG (COUMADIN) TAB PO SCH (07:36)
[2016-03-19] MEDS: GABAPENTIN 100 MG (NEURONTIN) CAP PO SCH (08:31)
[2016-03-19] MEDS: DOCUSATE SODIUM 100 MG (COLACE) CAP PO SCH (08:31)
[2016-03-19] MEDS: MAGNESIUM OXIDE (MAG-OX)400 MG TAB PO SCH (08:31)
[2016-03-19] MEDS: CARVEDILOL 6.25 MG (COREG) TAB PO SCH (08:31)
--- NOTE | 2016-03-19 11:11 | PM & R (SOAP) Progress Note ---
Subjective Subjective/Events-last exam Patient was seen in his room this AM Has progressed well Discussed case with RN and DR Doan yesterday Patients appointment with DR Li Surgeon moved up to next week to check left AKA wound healing.Current INR and Labs noted. Objective Exam Last Set of Vital Signs Vital Signs Date Time Temp Pulse Resp B/P Pulse Ox O2 Delivery O2 Flow Rate FiO2 03/19/16 09:00 Room Air 03/19/16 07:32 92 03/19/16 06:00 98.2 57 16 115/72 Capillary Refill : I&O Intake and Output 03/19/16 00:00 Intake Total 1100 ml Output Total 100 ml Balance 1000 ml Intake Oral 1100 ml Output Urine Total 100 ml # Voids 7 # Bowel Movements 4 General: Alert, No Acute Distress HEENT: Atraumatic, PERRLA, EOMI, Mucous Memb Moist/[place] Neck: Supple, No JVD Lungs: Normal Air Movement Heart: Regular Rate Abdomen: Normal Bowel Sounds, Soft, No Tenderness Extremities: Other (Left AKa as per above) Skin: Other (L AKA wound, sutured closed. 25.5 x 0.8 x 0.1 cm, 100% eschar, periwound dusky with blistering in areas. No drainage.) Neuro: Normal Speech, Cranial Nerves 3-12 NL Psych/Mental Status: Mental Status NL, Mood NL Results Lab Laboratory Tests 03/17/16 05:36: INR Comment 2.9H, Prothrombin Time 30.0H 03/18/16 05:53: INR Comment 3.1H, Prothrombin Time 31.8H 03/19/16 05:55: INR Comment 3.3H, Prothrombin Time 33.4H Assessment/Plan Assessment Left AKA DR Guillermo Dillon for sever PVD Postop anemiia Hyponatremia-improving Chronic anticoagulation on coumadin with supratherapeutic INR-will hold coumadin see orders-med dose being adjusted HTN controlled COPD on inhalers S/.P AVR 2004 Cardiomyopathy with EF 25% followed by Dr Solis in past-Appreciate DR Hinson note Discussed case with Wound care MD Last week Post op constipation meds adjusted Plan Discharge today to home with family and HHC F/U with DR Garland for f/u INR and F/U with Dr Li Surgeon [place] See orders. CHARLIE VARGAS MD Mar 19, 2016 11:11
--- NOTE | 2016-03-19 11:14 | Therapy Team Discharge Summary ---
Therapy Discharge Summary Discharge Recommendations Date of Discharge Therapy D/C Recommendations: Home w/ Family Support (friend support), Physical Therapy Home Care Physical Therapy Patient came to rehab following a left above the knee amputation. Upon admission, patient performed bed mobility and transfers with min assist and sometimes SBA for some of the bed mobility, ambulated 2' with a rolling walker with min assist, and could propel a wheelchair 50' with SBA and at least 2 turns of 90 degrees. Patient has been performing bed mobility and transfer training, balance and endurance training, functional strengthening, ROM/ stretching of residual limb, gait training, wheelchair training, and education to improve functional mobility and independence at home. Patient has made good progress and has met all of his terminal worker goals. Now, patient performs bed mobility and transfers with modified independence, ambulates 150' with a rolling walker with mod I (can also ambulate 10' over uneven surfaces like carpet and 50' with at least 2 turns of 90 degrees), is mod I with wheelchair mobility for 300', and can go up and down 4 steps using a walker with mod I. Patient is being discharged from this facility today and will be discharged from PT at this time. PT Correction Goals Research Contracts Supervisor Goals PT Correction Goals Time Frame: Mar 28, 2016 Transfers (B,C,W/C) (FIM): 5 (met 03/18/16) Roll Left to Right (QC): 6 (met 03/18/16) Sit to Lying (QC): 6 (met 03/18/16) Lying-Sitting on Side/Bed(QC): 6 (met 03/18/16) Sit to Stand (QC): 4 (met 03/18/16) Chair/Ldf-yb-Adfds Xfer(QC): 4 (met 03/18/16) Car Transfer (QC): 4 (met 03/18/16) Does the Patient Walk: Yes Gait (FIM): 2 (met 03/18/16) Distance: 50' Walk 10 feet (QC): 4 (met 03/18/16) Walk 10ft-Uneven Surface(QC): 4 (met 03/18/16) Walk 50ft with 2 Turns (QC): 4 (met 03/18/16) Gait Level of Assist: 5 (met 03/18/16) Gait Assistive Device: FWW Stairs (FIM): 1 (met 03/18/16) # of Steps: 1 (met 03/18/16) 1 Step (curb) (QC): 4 (met 03/18/16) Stairs Level Of Assist: 5 (met 03/18/16) OT Research Contracts Supervisor Goals Research Contracts Supervisor Goals Time Frame: Mar 28, 2016 Eating (QC): 6 (met) Oral Hygiene (QC): 6 (met 03/18/16) Grooming(FIM): 6 (met 03/18/16) Bathing(FIM): 5 (met 03/18/16) Shower/Bathe Self (QC): 6 (met 03/18/16) Upper Body Dressing(FIM): 6 (met 03/18/16) Upper Body Dressing (QC): 6 (met 03/18/16) Lower Body Dressing(FIM): 6 (met 03/18/16) Lower Body Dressing (QC): 6 (met 03/18/16) On/Off Footwear (QC): 6 (met 03/18/16) Toileting(FIM): 6 (met ) Toileting Hygiene (QC): 6 (met 03/18/16) Toilet/Commode Transfer(FIM): 6 (met 03/18/16) Toilet/Commode Transfer (QC): 6 (met 03/18/16) Shower Transfer(FIM): 5 (03/18/16) Additional Goals: 1-Demonstrate ADL Tasks, 2-Verbalize Understanding, 3- ImproveStrength/Anuj 1=Demonstrate adherence to instructed precautions during ADL tasks. 2=Patient will verbalize/demonstrate understanding of assistive devices/ modifications for ADL. 3=Patient will improve strength/tolerance for activity to enable patient to perform ADL's. JULIANA PADILLA PT Mar 19, 2016 11:14
--- NOTE | 2016-03-19 11:30 | Cardiology Progress Note ---
Subjective Subjective/Events-last exam Patient in bed. Being discharged home today. Denies any new complaints. Review of Systems General: No Night Sweats, No Fatigue, No Malaise HEENT: No Visual Changes, No Dysphasia, No Sore Throat Pulmonary: No Dyspnea, No Cough Cardiovascular: No: Chest Pain, Palpitations Gastrointestinal: No: Abdominal Pain, Nausea, Vomiting Genitourinary: No Dysuria, No Frequency Musculoskeletal: No: back pain, neck pain Neurological: No: Change in speech, Confusion, Numbness, Weakness Objective-Cardiology Exam Last Set of Vital Signs Vital Signs 03/19/16 03/19/16 03/19/16 06:00 07:32 09:00 Temp 98.2 Pulse 57 Resp 16 B/P 115/72 Pulse Ox 92 O2 Delivery Room Air Capillary Refill : I&O Intake and Output 03/19/16 00:00 Intake Total 1100 ml Output Total 100 ml Balance 1000 ml Intake Oral 1100 ml Output Urine Total 100 ml # Voids 7 # Bowel Movements 4 General: Alert, No Acute Distress HEENT: Atraumatic, PERRLA, EOMI, Mucous Memb Moist/[place] Neck: Supple, No JVD Lungs: Normal Air Movement Heart: Regular Rate Abdomen: Normal Bowel Sounds, Soft, No Tenderness Extremities: Other (Left AKa as per above) Skin: Other (L AKA wound, sutured closed. 25.5 x 0.8 x 0.1 cm, 100% eschar, periwound dusky with blistering in areas. No drainage.) Neuro: Normal Speech, Cranial Nerves 3-12 NL Psych/Mental Status: Mental Status NL, Mood NL A/P-Cardiology Admission Diagnosis PVD s/p L AKA CAD CHF AVR Assessment/Plan Extensive peripheral arterial disease, seen and followed by heart and vascular care. Had history of femoropopliteal bypass on the left side, aggressive percutaneous revascularization. Now s/p L AKA by Dr. Sinclair. Patient recovering well. Continue to monitor. Coronary artery disease status post CABG 2 with SAMUEL to LAD and vein graft to RCA in 2005. Patient had acute myocardial infarction with elevated troponin on 04/14. He had with cardiac catheterization April 19, 2014 revealing total occlusion of circumflex artery, very small artery has been chronically occluded. Patent SAMUEL to LAD and vein graft to large dominant RCA with good flow in the system. Moderate disease in the first diagonal artery that was intermediate in size. Abnormal troponin was due to occluded circumflex in addition to stress of having severe anemia at the time. No intervention was warranted, continue to monitor. CHF, chronic LV systolic dysfunction, ischemic in nature. Most recent 2D Echo 03/13/16 revealed EF improved to 50%. Status post aortic valve replacement in 2005. Maintained on Coumadin. INR 3.3 today. Coumadin on hold today. Managed by Dr. Alvarez's office as outpatient. Instructed to hold coumadin today, reeval PT/INR on Thursday Carotid stenosis, currently followed by Dr. Elio iL. Hypertension-controlled. Continue current medications Hyperlipidemia, managed as outpatient. Continue to monitor History of pulmonary hypertension Om-pxglqmjuaq-ipcfbjf reports he recently stopped smoking back in March 2015 History of noncompliance with medications Clinical Quality Measures DVT/VTE Risk/Contraindication: Risk Factor Score Per Nursin RFS Level Per Nursing on Admit: 4+=Very High ANSON LEON Mar 19, 2016 11:30
--- NOTE | 2016-03-19 15:31 | Therapy Team Discharge Summary ---
Therapy Discharge Summary Discharge Recommendations Date of Discharge Mar 19, 2016 at 13:05 Therapy D/C Recommendations: Home w/ Family Support (friend support), Physical Therapy Home Care Occupational Therapy Pt admitted to ARU following left AKA. On admission pt required minimal assistance for LE ADLs and transfers and SBA for UE ADLs. Skilled OT intervention focused on ADL training, transfers, strengthening, and home safety education. Pt made good progress with therapy and by discharge is completing basic ADLs and transfers with modified independence. Pt has met all OT LTG. Pt discharged home this date. D/C ARU OT at this time. PT Shop Repairer Goals Shelter Goals PT Shop Repairer Goals Time Frame: Mar 28, 2016 Transfers (B,C,W/C) (FIM): 5 (met 03/18/16) Roll Left to Right (QC): 6 (met 03/18/16) Sit to Lying (QC): 6 (met 03/18/16) Lying-Sitting on Side/Bed(QC): 6 (met 03/18/16) Sit to Stand (QC): 4 (met 03/18/16) Chair/Hbm-ag-Nynfi Xfer(QC): 4 (met 03/18/16) Car Transfer (QC): 4 (met 03/18/16) Does the Patient Walk: Yes Gait (FIM): 2 (met 03/18/16) Distance: 50' Walk 10 feet (QC): 4 (met 03/18/16) Walk 10ft-Uneven Surface(QC): 4 (met 03/18/16) Walk 50ft with 2 Turns (QC): 4 (met 03/18/16) Gait Level of Assist: 5 (met 03/18/16) Gait Assistive Device: FWW Stairs (FIM): 1 (met 03/18/16) # of Steps: 1 (met 03/18/16) 1 Step (curb) (QC): 4 (met 03/18/16) Stairs Level Of Assist: 5 (met 03/18/16) OT Shelter Goals Shop Repairer Goals Time Frame: Mar 28, 2016 Eating (QC): 6 (met) Oral Hygiene (QC): 6 (met 03/18/16) Grooming(FIM): 6 (met 03/18/16) Bathing(FIM): 5 (met 03/18/16) Shower/Bathe Self (QC): 6 (met 03/18/16) Upper Body Dressing(FIM): 6 (met 03/18/16) Upper Body Dressing (QC): 6 (met 03/18/16) Lower Body Dressing(FIM): 6 (met 03/18/16) Lower Body Dressing (QC): 6 (met 03/18/16) On/Off Footwear (QC): 6 (met 03/18/16) Toileting(FIM): 6 (met ) Toileting Hygiene (QC): 6 (met 03/18/16) Toilet/Commode Transfer(FIM): 6 (met 03/18/16) Toilet/Commode Transfer (QC): 6 (met 03/18/16) Shower Transfer(FIM): 5 (03/18/16) Additional Goals: 1-Demonstrate ADL Tasks, 2-Verbalize Understanding, 3- ImproveStrength/Anuj 1=Demonstrate adherence to instructed precautions during ADL tasks. 2=Patient will verbalize/demonstrate understanding of assistive devices/ modifications for ADL. 3=Patient will improve strength/tolerance for activity to enable patient to perform ADL's. TANIKA ZEPEDA OT Mar 19, 2016 15:31
--- NOTE | 2016-04-01 13:03 | DISCHARGE SUMMARY ---
DATE OF ADMISSION: 03/06/2016 DATE OF DISCHARGE: 03/19/2016 HISTORY OF PRESENT ILLNESS: The patient is a 70-year-old retired male who lives in [place], who has had multiple revascularization procedures with Dr. Wren and Dr. Li in the past. He was admitted to [facility] on 03/01 with severe ischemic rest pain of the left leg. No further revascularizations were available. Then the patient underwent a left AKA with Dr. Li vascular surgery at [facility]. He was referred to Inpatient Rehabilitation Unit at [facility] for ongoing amputee rehabilitation as he lives in [place] and PCP is Dr. Alvarez. He reports being continent of bowel and bladder. PAST MEDICAL HISTORY: 1. Hypertension. 2. Hyperlipidemia. 3. Peripheral vascular disease. 4. Mild coronary artery stenosis. 5. Coronary artery disease. 6. Chronic anticoagulation. 7. Tobaccoism. 8. Cardiomyopathy with ejection fraction 25%. 9. Mitral regurgitation. 10. Severe COPD. 11. Chronic systolic congestive heart failure. 12. He had a left fem/pop bypass 05/25/2012 Dr. Li. 13. Right lower extremity stents Dr. Wren in the past. 14. Status post thrombolytic therapy and stenting of the popliteal artery, Dr. Wren March 2014. 15. Cardiac catheterization in August 2010 showing patent grafts and a total occlusion of left circumflex artery. 16. Two-vessel bypass grafting 2004. 17. Status post aVR June 2013. MEDICAL COURSE: The patient was followed by Dr. Dyson and Dr. Ndiaye while on rehab unit as well as Dr. Solis. The patient was seen by Dr. Saravia regarding wound care. The patient developed some small areas of cyanosis in both anterior and posterior flaps, but incision was intact. No dehiscence at that time. The patient had moderate pain tenderness at the amputation site. Dr. Saravia recommended follow-up with Dr. Li on day following discharge from rehab unit which was arranged for by staff I believe. Otherwise the patient did quite well. He was afebrile during his stay. His pulse was 57 on 03/19, respirations 16, blood pressure 115/72, O2 sat 92% on room air. He had some difficulty with constipation and this was treated with medications. His INR was monitored and Coumadin adjusted accordingly. CBC on 03/13 showed WBC 11.2, H&H 10.1/30, platelet count 319,000. Chemistry on 03/13 showed serum sodium improved to 133, otherwise normal electrolytes, BUN was 30. Albumin was 3.7, INR on 03/19 was 3.3 REHABILITATION COURSE: He progressed well with his therapies. He had increased strength and endurance, decreased pain. He was seen by speech therapy found him to be intact and they signed off. OT notes that upon admission, he required min assist for lower body ADLs and transfers. Standby assist for upper body ADLs. He made good progress and by discharge was completing basic ADLs and transfers with modified independence. Physical therapy notes upon admission, the patient performed bed mobility, transfers with min assist, standby assist for bed mobility could ambulate 2 feet with a wheeled walker with min assist, could propel wheelchair 50 feet with standby assist. Upon discharge he has made good progress and he performs bed mobility, transfers and modified independence. He could ambulate 150 feet with a wheeled walker with modified independence and was modified independent for wheelchair mobility. He could go up and 4 steps using a walker with modified independence. He does live in a wheelchair accessible apartment in [place]. DISCHARGE INSTRUCTIONS: The patient is discharged to home with home health care. The patient will have follow-up with Dr. Li and Dr. Alvarez and follow-up INR with report to Dr. Alvarez. Prescription for DME wheelchair was provided. He will need a manual wheelchair for community and home mobility. He has had an [id number] amputation and although he can ambulate short distances using a wheeled walker, will not be able ambulate in the community with this and continued use of the wheeled walker at home may provide too much stress on his shoulders over time. Hopefully once his residual limb is well healed and shaped he will have follow-up with Dr. Li regarding a prescription for a prosthesis. Continue current diet. DISCHARGE MEDICATIONS: 1. Colace 100 mg p.o. b.i.d. 2. Gabapentin 100 mg p.o. daily and 100 mg at noon and 200 milligrams at bedtime. 3. Hydrocodone APAP 5/325, 1 tablet p.o. q.4 hours p.r.n. pain. 4. Coumadin 4 mg p.o. daily. 5. ASA 81 mg p.o. daily. 6. Coreg 6.25 mg p.o. b.i.d. 7. Lisinopril 5 mg p.o. at bedtime. 8. Mag-Ox 400 mg p.o. b.i.d. 9. Multivitamins 1 tablet p.o. daily. 10. Protonix 40 mg p.o. daily. 11. Crestor 40 mg p.o. daily. DISCHARGE DIAGNOSES: 1. Rehabilitation ambulatory dysfunction secondary severe peripheral vascular disease, status post left AKA DR Li 03/01/2016 Dana Dillon. 2. Hypertension, controlled with medication. 3. Hyperlipidemia, on statin. 4. Bilateral mild carotid artery stenosis. 5. Tobacco abuse currently abstaining. 6. Chronic anticoagulation. 7. History of pulmonary embolism. 8. History of noncompliance with medications. 9. Status post aortic valve replacement 2005 maintained on Coumadin. 10. Congestive heart failure, chronic left ventricular systolic dysfunction, ischemic in nature with most recent 2-D echo 03/13/2016 revealing ejection fraction improved to 50% with a repeat echocardiogram done while on the unit here on 03/14/2016 showing ejection fraction of 50%. 11. Calcified mitral valve with mild mitral regurgitation and mild tricuspid regurgitation as per echo done during his stay. 12. Coronary artery disease, status post CABG x2 with SAMUEL to LAD vein graft to RCA 2005 with acute [place] after elevated troponin 04/14/2014, with cardiac catheterization 04/19/2014 revealing total occlusion of the circumflex artery, a patent SAMUEL to the LAD vein graft to large dominant RCA, with good flowing systems noted CONDITION AT DISCHARGE: Improved and stable. PROGNOSIS: Rehab prognosis appears good for continued improvement at home and return to independent living. Hopefully he will be a prosthetic candidate in the near future. Job ID: [id number] Dictated Date: 04/01/2016 09:30:29 Alcohol And Drug Counselor Date: 04/01/2016 12:42:17/tracy ROY
== END 2016-03-19 13:05 | disposition home health service (06) | DRG 560 ==
PROVIDERS: ADMIT Physical Medicine & Rehabilitation; ATTEND Physical Medicine & Rehabilitation
DX: Z47.81 Encounter for orthopedic aftercare following surgical amputation (principal); Z89.612 Acquired absence of left leg above knee; I73.9 Peripheral vascular disease, unspecified; E87.1 Hypo-osmolality and hyponatremia; I50.22 Chronic systolic (congestive) heart failure; J44.9 Chronic obstructive pulmonary disease, unspecified; I42.9 Cardiomyopathy, unspecified; I10 Essential (primary) hypertension; E78.5 Hyperlipidemia, unspecified; I34.0 Nonrheumatic mitral (valve) insufficiency; I65.23 Occlusion and stenosis of bilateral carotid arteries; I25.10 Atherosclerotic heart disease of native coronary artery without angina pectoris; K59.00 Constipation, unspecified; Z87.891 Personal history of nicotine dependence; Z95.1 Presence of aortocoronary bypass graft; Z95.820 Peripheral vascular angioplasty status with implants and grafts; Z95.2 Presence of prosthetic heart valve
CPT/HCPCS: 36415; 80053; 85025; 85610; 93306; 94640; 94760

== ENCOUNTER → 2016-03-20 | Outpatient (CLI) | payer MEDICARE, MEDICAID ==
[~2016-03-20] MED LIST changes: +DOCU100C37 PO; +GABA-486 PO; +ROSU40TA PO; +WARF2TAB PO
[2016-03-20 18:39] LABS: INR 1.9 (0.8-1.4); PROTHROMBIN TIME PATIENT 21.9 SEC (12.2-14.7)
--- OUTSIDE RECORDS SUMMARY | 2016-03-24 07:14 | XMS REPORT | Continuity of Care Document ---
Author Author [facility] Organization [facility] Address Unknown Phone Unavailable Care Team Providers Care Arborist Representative Name Role Phone FABI CABA MD PCP Insurance Providers Payer Name Policy Number Subscriber Name Relationship Wps Medicare [id number] Bony Eddy 19 Self / Same As Patient Marshall [employer] [id number] Bony Eddy 19 Self / Same As Patient Advance Directives Directive Response Recorded Date/Time Advance Directives Yes 04/14/14 12:58pm Health Care Power of Mold Cleaner Yes 04/14/14 12:58pm Organ Donor No 04/14/14 [...] SELECTED GROUPS OF HIGH RISK PATIENTS. [employer] OF [employer] CONSENSUS CONFERENCE ON ANTITHROMBOTIC THERAPY (2000). Procedures No known history of procedures. Encounters Encounter Location Date/Time Discharged Recurring Via [facility] 06/23/14 11:51am Discharged Recurring [facility] 05/03/14 10:30am
== END ==
LOC: HH 18:31
PROVIDERS: ATTEND Family Medicine
DX: Z51.81 Encounter for therapeutic drug level monitoring (principal); Z79.01 Long term (current) use of anticoagulants
CPT/HCPCS: 85610

== ENCOUNTER → 2016-03-24 | Outpatient (CLI) | payer MEDICARE, MEDICAID ==
--- OUTSIDE RECORDS SUMMARY | 2016-03-24 12:25 | XMS REPORT | Continuity of Care Document ---
Author Author [facility] Organization [facility] Address Unknown Phone Unavailable Care Team Providers Care Office Asst Name Role Phone FABI CABA MD PCP Insurance Providers Payer Name Policy Number Subscriber Name Relationship Wps Medicare [id number] Bony Eddy 19 Self / Same As Patient Marshall [employer] [id number] Bony Eddy 19 Self / Same As Patient Advance Directives Directive Response Recorded Date/Time Advance Directives Yes 04/14/14 12:58pm Health Care Power of Page Technician Yes 04/14/14 12:58pm Organ Donor No 04/14/14 [...] SELECTED GROUPS OF HIGH RISK PATIENTS. SIX[employer] [place] [employer] OF CHEST PH[employer] CONSENSUS CONFERENCE ON ANTITHROMBOTIC THERAPY (2000). Procedures No known history of procedures. Encounters Encounter Location Date/Time Discharged Recurring [facility] 06/23/14 11:51am Discharged Recurring [facility] 05/03/14 10:30am
[2016-03-24 13:12] LABS: INR 2.3 (0.8-1.4); PROTHROMBIN TIME PATIENT 25.4 SEC (12.2-14.7)
== END ==
LOC: HH 12:22
PROVIDERS: ATTEND Family Medicine
DX: Z51.81 Encounter for therapeutic drug level monitoring (principal); Z79.01 Long term (current) use of anticoagulants; Z95.2 Presence of prosthetic heart valve
CPT/HCPCS: 36415; 85610

== ENCOUNTER → 2016-03-24 | Outpatient (CLI) | payer MEDICARE, MEDICAID ==
--- OUTSIDE RECORDS SUMMARY | 2016-03-24 13:24 | XMS REPORT | Continuity of Care Document ---
Author Author [facility] Organization [facility] Address Unknown Phone Unavailable Care Team Providers Care Weapons Electrical Engineering Officer Name Role Phone FABI CABA MD PCP Insurance Providers Payer Name Policy Number Subscriber Name Relationship Wps Medicare [id number] Bony Eddy 19 Self / Same As Patient Marshall [employer] [id number] Bony Eddy 19 Self / Same As Patient Advance Directives Directive Response Recorded Date/Time Advance Directives Yes 04/14/14 12:58pm Health Care Power of Museum Attendant Yes 04/14/14 12:58pm Organ Donor No 04/14/14 [...] SELECTED GROUPS OF HIGH RISK PATIENTS. [employer] [place] [employer] CONSENSUS CONFERENCE ON ANTITHROMBOTIC THERAPY (2000). Procedures No known history of procedures. Encounters Encounter Location Date/Time Discharged Recurring Via [facility] 06/23/14 11:51am Discharged Recurring [facility] 05/03/14 10:30am
--- NOTE | 2016-03-24 14:47 | Diagnostic Imaging Report ---
INDICATION: Skin graft. FINDINGS: Frontal and lateral views of the chest demonstrates postoperative changes. Heart size and vascularity are normal. The lungs are clear. IMPRESSION: There are no acute findings. Dictated by: Dictated on workstation # [id number]
== END ==
LOC: CARD 13:20
PROVIDERS: ATTEND Surgery
DX: I70.241 Atherosclerosis of native arteries of left leg with ulceration of thigh (principal); L97.123 Non-pressure chronic ulcer of left thigh with necrosis of muscle; T86.821 Skin graft (allograft) (autograft) failure; R54 Age-related physical debility
CPT/HCPCS: 71020; 93005

== ENCOUNTER → 2016-04-07 | Outpatient (CLI) | payer MEDICARE, MEDICAID ==
--- OUTSIDE RECORDS SUMMARY | 2016-04-07 18:11 | XMS REPORT | Continuity of Care Document ---
Author Author [facility] Organization [facility] Address Unknown Phone Unavailable Care Team Providers Care Office Cleaner Name Role Phone FABI CABA MD PCP Insurance Providers Payer Name Policy Number Subscriber Name Relationship Wps Medicare [id number] Bony Eddy 18 Self / Same As Patient Marshall [employer] [id number] Bony Eddy 18 Self / Same As Patient Advance Directives Directive Response Recorded Date/Time Advance Directives Yes 04/14/14 12:58pm Health Care Power of Ultrasound Supervisor Yes 04/14/14 12:58pm Organ Donor No 04/14/14 [...] SELECTED GROUPS OF HIGH RISK PATIENTS. SIX[employer] [place] [employer] OF CHEST PH[employer]ANS CONSENSUS CONFERENCE ON ANTITHROMBOTIC THERAPY (2000). Procedures No known history of procedures. Encounters Encounter Location Date/Time Discharged Recurring Via [facility] 06/23/14 11:51am Discharged Recurring Via [facility] 05/03/14 10:30am
[2016-04-07 18:21] LABS: INR 4.6 (0.8-1.4)
== END ==
LOC: HH 18:07
PROVIDERS: ATTEND Internal Medicine Cardiovascular Disease
DX: Z95.2 Presence of prosthetic heart valve (principal); Z79.01 Long term (current) use of anticoagulants
CPT/HCPCS: 85610

== ENCOUNTER → 2016-04-14 | Outpatient (CLI) | payer MEDICARE, MEDICAID ==
--- OUTSIDE RECORDS SUMMARY | 2016-04-14 16:28 | XMS REPORT | Continuity of Care Document ---
Author Author [facility] Organization [facility] Address Unknown Phone Unavailable Care Team Providers Care Injection Molding Process Technician Name Role Phone FABI CABA MD PCP Insurance Providers Payer Name Policy Number Subscriber Name Relationship Wps Medicare [id number] Bony Eddy 18 Self / Same As Patient Marshall [employer] [id number] Bony Eddy 18 Self / Same As Patient Advance Directives Directive Response Recorded Date/Time Advance Directives Yes 04/14/14 12:58pm Health Care Power of Lead Ingot Molder Yes 04/14/14 12:58pm Organ Donor No 04/14/14 [...] SELECTED GROUPS OF HIGH RISK PATIENTS. SIXTH [place] COLLE[employer] OF CHEST PHYSICIANS CONSENSUS CONFERENCE ON ANTITHROMBOTIC THERAPY (2000). Procedures No known history of procedures. Encounters Encounter Location Date/Time Discharged Recurring Via [facility] 06/23/14 11:51am Discharged Recurring Via [facility] 05/03/14 10:30am
[2016-04-14 16:36] LABS: PROTHROMBIN TIME PATIENT 22.3 SEC (12.2-14.7)
== END ==
LOC: HH 16:24
PROVIDERS: ATTEND Internal Medicine Cardiovascular Disease
DX: Z51.81 Encounter for therapeutic drug level monitoring (principal); Z79.01 Long term (current) use of anticoagulants
CPT/HCPCS: 85610

== ENCOUNTER → 2016-05-05 | Outpatient (CLI) | payer MEDICARE, MEDICAID ==
--- OUTSIDE RECORDS SUMMARY | 2016-05-05 14:53 | XMS REPORT | Continuity of Care Document ---
Author Author [facility] Organization [facility] Address Unknown Phone Unavailable Care Team Providers Care Registered Nursing Professor Name Role Phone FABI CABA MD PCP Insurance Providers Payer Name Policy Number Subscriber Name Relationship Wps Medicare [id number] Bony Eddy 18 Self / Same As Patient Marshall [employer] [id number] Bony Eddy 18 Self / Same As Patient Advance Directives Directive Response Recorded Date/Time Advance Directives Yes 04/14/14 12:58pm Health Care Power of Shot Peening Operator Yes 04/14/14 12:58pm Organ Donor No [...] Encounters Encounter Location Date/Time Discharged Recurring Via [facility] 06/23/14 11:51am Discharged Recurring Via [facility] 05/03/14 10:30am
[2016-05-05 15:08] LABS: INR 1.2 (0.8-1.4); PROTHROMBIN TIME PATIENT 14.6 SEC (12.2-14.7)
== END ==
LOC: HH 14:20
PROVIDERS: ATTEND Internal Medicine Cardiovascular Disease
DX: Z51.81 Encounter for therapeutic drug level monitoring (principal); Z79.01 Long term (current) use of anticoagulants
CPT/HCPCS: 85610

== ENCOUNTER → 2016-05-08 | Outpatient (CLI) | payer MEDICARE, MEDICAID ==
--- OUTSIDE RECORDS SUMMARY | 2016-05-08 14:13 | XMS REPORT | Continuity of Care Document ---
Author Author [facility] Organization [facility] Address Unknown Phone Unavailable Care Team Providers Care Inventory Auditor Name Role Phone FABI CABA MD PCP Insurance Providers Payer Name Policy Number Subscriber Name Relationship Wps Medicare [id number] Bony Eddy 18 Self / Same As Patient [employer] [id number] Bony Eddy 18 Self / Same As Patient Advance Directives Directive Response Recorded Date/Time Advance Directives Yes 04/14/14 12:58pm Health Care Power of Rehabilitation Counselor Yes 04/14/14 12:58pm Organ Donor No 04/14/14 [...] SELECTED GROUPS OF HIGH RISK PATIENTS. SIX[employer] [place] [employer] OF CHEST PHYSICIANS CONSENSUS CONFERENCE ON ANTITHROMBOTIC THERAPY (2000). Procedures No known history of procedures. Encounters Encounter Location Date/Time Discharged Recurring Via [facility] 06/23/14 11:51am Discharged Recurring Via [facility] 05/03/14 10:30am
[2016-05-08 14:37] LABS: INR 1.3 (0.8-1.4); PROTHROMBIN TIME PATIENT 15.8 SEC (12.2-14.7)
== END ==
LOC: HH 14:09
PROVIDERS: ATTEND Internal Medicine Cardiovascular Disease
DX: Z51.81 Encounter for therapeutic drug level monitoring (principal); Z79.01 Long term (current) use of anticoagulants
CPT/HCPCS: 85610

== ENCOUNTER → 2016-05-09 | Outpatient (CLI) | payer MEDICARE, MEDICAID ==
--- OUTSIDE RECORDS SUMMARY | 2016-05-09 13:47 | XMS REPORT | Continuity of Care Document ---
Author Author [facility] Organization [facility] Address Unknown Phone Unavailable Care Team Providers Care Industrial Gas Fitter Name Role Phone FABI CABA MD PCP Insurance Providers Payer Name Policy Number Subscriber Name Relationship Wps Medicare [id number] Bony Eddy 18 Self / Same As Patient Marshall [employer]p [id number] Bony Eddy 19 Self / Same As Patient Advance Directives Directive Response Recorded Date/Time Advance Directives Yes 04/14/14 12:58pm Health Care Power of Roll Press Operator Yes 04/14/14 12:58pm Organ Donor No [...] SELECTED GROUPS OF HIGH RISK PATIENTS. SIX[employer] [place] [employer] OF CHEST PHYSICIANS CONSENSUS CONFERENCE ON ANTITHROMBOTIC THERAPY (2000). Procedures No known history of procedures. Encounters Encounter Location Date/Time Discharged Recurring Via [facility] 06/23/14 11:51am Discharged Recurring Via [facility] 05/03/14 10:30am
--- NOTE | 2016-05-09 16:43 | Diagnostic Imaging Report ---
PROCEDURE: US bilateral lower extremity, arterial. TECHNIQUE: Multiple real-time grayscale images are obtained through both lower extremity arterial systems with color Doppler imaging and color Doppler spectral analysis. INDICATION: History of left aaiwp-sfl-ania amputation and skin graft, with graft failure. FINDINGS: On the right, there is diffusely dampened biphasic waveforms noted from the mid aspect of the superficial femoral artery through the level of the ankles. More proximally, there is normal triphasic waveforms present. There is change in velocity between the proximal and mid aspect of the superficial femoral artery raising concern for potential are of stenosis. On the left, there is what appears to be occlusion of the kashia left superficial femoral artery from its proximal aspect to the level of the amputation site. There also appears to be apparent occlusion of a graft within the left thigh. IMPRESSION: 1. Right lower extremity arterial Doppler demonstrates significant change of velocity from the proximal to mid aspect superficial femoral artery raising concern for potential significant stenosis. 2. Left lower extremity demonstrates occlusion of the kashia superficial femoral artery's proximal aspect through the level of the stump site. An apparent graft also appears to be occluded as well. Report was called and faxed to the office of Dr. Wero Doan at 4:34 p.m., by dandre, with message left for Dr. Doan. Dictated by: Dictated on workstation # [id number]
== END ==
LOC: RAD 13:43
PROVIDERS: ATTEND Surgery
DX: L97.122 Non-pressure chronic ulcer of left thigh with fat layer exposed (principal); T87.81 Dehiscence of amputation stump; I70.241 Atherosclerosis of native arteries of left leg with ulceration of thigh; T86.821 Skin graft (allograft) (autograft) failure
CPT/HCPCS: 93925

== ENCOUNTER → 2016-05-20 | Outpatient (CLI) | payer MEDICARE, MEDICAID ==
--- OUTSIDE RECORDS SUMMARY | 2016-05-20 10:37 | XMS REPORT | Continuity of Care Document ---
Author Author [facility] Organization [facility] Address Unknown Phone Unavailable Care Team Providers Care Fishing Vessel Captain Name Role Phone FABI CABA MD PCP Insurance Providers Payer Name Policy Number Subscriber Name Relationship Wps Medicare [id number] Bony Eddy 18 Self / Same As Patient Marshall [employer]p [id number] Bony Eddy 18 Self / Same As Patient Advance Directives Directive Response Recorded Date/Time Advance Directives Yes 04/14/14 12:58pm Health Care Power of Spike Machine Operator Yes 04/14/14 12:58pm Organ Donor No [...] SELECTED GROUPS OF HIGH RISK PATIENTS. SIXTH [place] [employer] OF CHEST PHYSICIANS CONSENSUS CONFERENCE ON ANTITHROMBOTIC THERAPY (2000). Procedures No known history of procedures. Encounters Encounter Location Date/Time Discharged Recurring Via [facility] 06/23/14 11:51am Discharged Recurring Via [facility] 05/03/14 10:30am
[2016-05-20 11:00] LABS: BASOPHILS % (AUTO) 1 % (0-10); EOSINOPHILS # (AUTO) 0.3 10^3/uL (0.0-0.3); EOSINOPHILS % (AUTO) 3 % (0-10); LYMPHOCYTES # (AUTO) 2.9 X 10^3 (1.0-4.0); LYMPHOCYTES % (AUTO) 34 % (12-44); MEAN CORPUSCULAR HEMOGLOBIN 30 PG (25-34); MEAN CORPUSCULAR HGB CONC 34 G/DL (32-36); MEAN CORPUSCULAR VOLUME 87 FL (80-99); MEAN PLATELET VOLUME 10.6 FL (7.4-10.4); MONOCYTES # (AUTO) 0.7 X 10^3 (0.0-1.0); MONOCYTES % (AUTO) 8 % (0-12); NEUTROPHILS # (AUTO) 4.7 X 10^3 (1.8-7.8); NEUTROPHILS % (AUTO) 55 % (42-75); PLATELET COUNT 267 10^3/uL (130-400); RED BLOOD COUNT 3.78 10^6/uL (4.35-5.85); RED CELL DISTRIBUTION WIDTH 14.2 % (10.0-14.5); WHITE BLOOD COUNT 8.6 10^3/uL (4.3-11.0)
[2016-05-20 11:23] LABS: ALANINE AMINOTRANSFERASE 7 U/L (0-55); ALBUMIN 3.4 G/DL (3.2-4.5); ANION GAP 10 MMOL/L (5-14); ASPARTATE AMINO TRANSFERASE 11 U/L (5-34); BILIRUBIN,TOTAL 0.2 MG/DL (0.1-1.0); BLOOD UREA NITROGEN 14 MG/DL (7-18); BUN/CREATININE RATIO 18; CALCIUM 9.4 MG/DL (8.5-10.1); CARBON DIOXIDE 25 MMOL/L (21-32); CHLORIDE 104 MMOL/L (98-107); GFR ESTIMATED > 60; GLUCOSE 102 MG/DL (70-105); SODIUM 139 MMOL/L (135-145); TOTAL PROTEIN 6.5 G/DL (6.4-8.2)
== END ==
LOC: LAB 10:32
PROVIDERS: ATTEND Surgery
DX: L97.123 Non-pressure chronic ulcer of left thigh with necrosis of muscle (principal); T87.81 Dehiscence of amputation stump; I70.241 Atherosclerosis of native arteries of left leg with ulceration of thigh
CPT/HCPCS: 36415; 80053; 85025

== ENCOUNTER → 2016-05-21 | Outpatient (CLI) | payer MEDICARE, MEDICAID ==
[~2016-05-21] MED LIST changes: +IOHEXOL 350 MG/ML 150 ML (OMNIPAQUE 350) VIAL IV ONE; +NS 100 ML (IVPB) BAG IV ONE; +NS 50 ML (IVPB) BAG IV ONE
--- OUTSIDE RECORDS SUMMARY | 2016-05-21 10:49 | XMS REPORT | Continuity of Care Document ---
Author Author [facility] Organization [facility] Address Unknown Phone Unavailable Care Team Providers Care Pulp Plant Supervisor Name Role Phone FABI CABA MD PCP Insurance Providers Payer Name Policy Number Subscriber Name Relationship Wps Medicare [id number] Bony Eddy 18 Self / Same As Patient Marshall [employer]p [id number] Bony Eddy 19 Self / Same As Patient Advance Directives Directive Response Recorded Date/Time Advance Directives Yes 04/14/14 12:58pm Health Care Power of Supply Crib Attendant Yes 04/14/14 12:58pm Organ Donor No [...] SELECTED GROUPS OF HIGH RISK PATIENTS. SIXTH [place] [employer] CHEST PHYSICIANS CONSENSUS CONFERENCE ON ANTITHROMBOTIC THERAPY (2000). Procedures No known history of procedures. Encounters Encounter Location Date/Time Discharged Recurring Via [facility] 06/23/14 11:51am Discharged Recurring Via [facility] 05/03/14 10:30am
--- NOTE | 2016-05-21 13:27 | Diagnostic Imaging Report ---
INDICATION: Peripheral vascular disease with abnormal Doppler study. TECHNIQUE: Bolus IV contrast injection with 2D MIP reconstructed images obtained. FINDINGS: There is good opacification of the aorta and abdominal vessels as well as lower extremity vessels following IV bolus contrast injection. The celiac and superior mesenteric arteries are widely patent. Renal arteries show hemodynamic stenosis of the right proximal renal artery. This is short segment in nature. Left renal artery shows atherosclerosis though no hemodynamic change. The aorta is atherosclerotic without evidence of aneurysm or significant stenosis. The iliac arteries are densely calcified. There is stenosis of the left common iliac artery estimated 50 to 70%. The external iliac arteries show no significant stenosis with minimal atherosclerotic changes. The common femoral arteries show dense atherosclerotic plaquing with occluded femoropopliteal graft on the left. The profundus femoral artery is patent. The right lower extremity shows dense atherosclerotic plaquing at the common femoral artery with stenosis estimated 50 to 70% at the takeoff extending into the profundus femoral as well. The distal profundus femoral is widely patent. There is high-grade stenosis in the proximal superficial femoral artery. There is near-complete obstruction of the superficial femoral artery at the adductor canal. There is reconstitution of the popliteal artery. Popliteal artery is widely patent. There is significant disease at the trifurcation vessel takeoff. Scattered hemodynamic changes noted throughout the posterior tibial and dorsalis pedis artery. IMPRESSION: 1. Diffuse atherosclerotic disease present with hemodynamic changes involving the proximal right renal artery. Hemodynamic stenosis of the common femoral arteries, more severe on the left. High-grade stenosis of the proximal superficial femoral artery as well as the distal superficial femoral artery on the right. Occlusion of the left superficial femoral artery. Diffuse trifurcation disease with beaded appearance noted of the posterior tibial and dorsalis pedis arteries though there is flow to the foot. 2. There has been progression of atherosclerotic changes when compared with CT scan of the abdomen and pelvis from 10/01/2015. Dictated by: Dictated on workstation # [id number]
== END ==
LOC: RAD 10:46
PROVIDERS: ATTEND Surgery
DX: I70.1 Atherosclerosis of renal artery (principal); I70.203 Unspecified atherosclerosis of native arteries of extremities, bilateral legs; I77.1 Stricture of artery; L97.123 Non-pressure chronic ulcer of left thigh with necrosis of muscle; T87.81 Dehiscence of amputation stump
CPT/HCPCS: 75635

== ENCOUNTER → 2016-06-04 | Outpatient (CLI) | payer MEDICARE, MEDICAID ==
[~2016-06-04] MED LIST changes: -IOHEXOL 350 MG/ML 150 ML (OMNIPAQUE 350) VIAL IV ONE; -NS 100 ML (IVPB) BAG IV ONE; -NS 50 ML (IVPB) BAG IV ONE
[2016-06-04 12:28] LABS: INR 1.1 (0.8-1.4); PROTHROMBIN TIME PATIENT 14.3 SEC (12.2-14.7)
== END ==
LOC: HH 12:00
PROVIDERS: ATTEND Internal Medicine Cardiovascular Disease
DX: Z51.81 Encounter for therapeutic drug level monitoring (principal); Z79.01 Long term (current) use of anticoagulants
CPT/HCPCS: 85610

== ENCOUNTER → 2016-06-12 | Outpatient (CLI) | payer MEDICARE, MEDICAID ==
[2016-06-12 16:04] LABS: ANION GAP 7 MMOL/L (5-14); BLOOD UREA NITROGEN 8 MG/DL (7-18); BUN/CREATININE RATIO 11; CALCIUM 9.3 MG/DL (8.5-10.1); CARBON DIOXIDE 29 MMOL/L (21-32); CHLORIDE 106 MMOL/L (98-107); GFR ESTIMATED > 60; GLUCOSE 72 MG/DL (70-105); SODIUM 142 MMOL/L (135-145)
== END ==
LOC: LAB 15:28
PROVIDERS: ATTEND Thoracic Surgery (Cardiothoracic Vascular Surgery)
DX: I73.9 Peripheral vascular disease, unspecified (principal)
CPT/HCPCS: 36415; 80048

== ENCOUNTER → 2016-06-16 | Outpatient (CLI) | payer MEDICARE, MEDICAID ==
[2016-06-16 14:23] LABS: INR 1.5 (0.8-1.4); PROTHROMBIN TIME PATIENT 18.2 SEC (12.2-14.7)
== END ==
LOC: HH 14:02
PROVIDERS: ATTEND Internal Medicine Cardiovascular Disease
DX: Z51.81 Encounter for therapeutic drug level monitoring (principal); Z79.01 Long term (current) use of anticoagulants
CPT/HCPCS: 85610

== ENCOUNTER 2016-06-17 09:54 | Outpatient (RCR) | payer MEDICARE, MEDICAID ==
--- OUTSIDE RECORDS SUMMARY | 2016-03-24 08:30 | XMS REPORT | Continuity of Care Document ---
Author Author [facility] Organization [facility] Address Unknown Phone Unavailable Care Team Providers Care Enrollment Coordinator Name Role Phone FABI CABA MD PCP Insurance Providers Payer Name Policy Number Subscriber Name Relationship Wps Medicare [id number] Bony Eddy 19 Self / Same As Patient Marshall [employer] [id number] Bony Eddy 19 Self / Same As Patient Advance Directives Directive Response Recorded Date/Time Advance Directives Yes 04/14/14 12:58pm Health Care Power of Radiator Tester Yes 04/14/14 12:58pm Organ Donor No 04/14/14 [...] SELECTED GROUPS OF HIGH RISK PATIENTS. SIX[employer] [place] [employer] OF [employer] CONSENSUS CONFERENCE ON ANTITHROMBOTIC THERAPY (2000). Procedures No known history of procedures. Encounters Encounter Location Date/Time Discharged Recurring Via [facility] 06/23/14 11:51am Discharged Recurring [facility] 05/03/14 10:30am
== END 2016-06-22 | disposition home or self-care (01) ==
LOC: WOUNDCARE 09:54
PROVIDERS: ATTEND Surgery
DX: L97.123 Non-pressure chronic ulcer of left thigh with necrosis of muscle (principal); L97.523 Non-pressure chronic ulcer of other part of left foot with necrosis of muscle; I77.9 Disorder of arteries and arterioles, unspecified; F17.210 Nicotine dependence, cigarettes, uncomplicated; T87.81 Dehiscence of amputation stump; I70.241 Atherosclerosis of native arteries of left leg with ulceration of thigh; I87.323 Chronic venous hypertension (idiopathic) with inflammation of bilateral lower extremity; I89.0 Lymphedema, not elsewhere classified; I70.245 Atherosclerosis of native arteries of left leg with ulceration of other part of foot; Z89.612 Acquired absence of left leg above knee
CPT/HCPCS: 11042; 11045; 87070; 87075; 87077; 87186; 87205; 97605; 99183; 99212; 99214

== ENCOUNTER → 2016-06-19 | Outpatient (CLI) | payer MEDICARE, MEDICAID ==
[2016-06-19 12:04] LABS: ANION GAP 10 MMOL/L (5-14); BLOOD UREA NITROGEN 13 MG/DL (7-18); BUN/CREATININE RATIO 13; CALCIUM 9.8 MG/DL (8.5-10.1); CARBON DIOXIDE 26 MMOL/L (21-32); CHLORIDE 103 MMOL/L (98-107); CREATININE SERUM 1.01 MG/DL (0.60-1.30); GFR ESTIMATED > 60; GLUCOSE 104 MG/DL (70-105); SODIUM 139 MMOL/L (135-145)
== END ==
LOC: HH 11:43
PROVIDERS: ATTEND Surgery
DX: L97.122 Non-pressure chronic ulcer of left thigh with fat layer exposed (principal)
CPT/HCPCS: 80048

== ENCOUNTER 2016-07-02 19:50 | Emergency (ER) | payer MEDICARE, MEDICAID ==
[~2016-07-02] VITALS: Ht 160 cm; Wt 67.1 kg
[2016-07-02 20:15] LABS: BASOPHILS % (AUTO) 0 % (0-10); EOSINOPHILS # (AUTO) 0.4 10^3/uL (0.0-0.3); EOSINOPHILS % (AUTO) 5 % (0-10); LYMPHOCYTES # (AUTO) 3.1 X 10^3 (1.0-4.0); LYMPHOCYTES % (AUTO) 44 % (12-44); MEAN CORPUSCULAR HEMOGLOBIN 29 PG (25-34); MEAN CORPUSCULAR HGB CONC 34 G/DL (32-36); MEAN CORPUSCULAR VOLUME 86 FL (80-99); MEAN PLATELET VOLUME 9.8 FL (7.4-10.4); MONOCYTES # (AUTO) 0.9 X 10^3 (0.0-1.0); MONOCYTES % (AUTO) 12 % (0-12); NEUTROPHILS # (AUTO) 2.7 X 10^3 (1.8-7.8); NEUTROPHILS % (AUTO) 38 % (42-75); PLATELET COUNT 248 10^3/uL (130-400); RED BLOOD COUNT 3.77 10^6/uL (4.35-5.85); RED CELL DISTRIBUTION WIDTH 14.5 % (10.0-14.5)
[2016-07-02 20:27] LABS: INR 4.5 (0.8-1.4); PROTHROMBIN TIME PATIENT 42.8 SEC (12.2-14.7)
--- NOTE | 2016-07-02 21:05 | ED General ---
General Chief Complaint: Skin/Wound Problems Stated Complaint: POST OP/LACERATION Source of Information: Patient Exam Limitations: No Limitations History of Present Illness Time Seen by Provider: 19:55 Initial Comments This 71-year-old gentleman presents to the emergency room with complaints of bleeding underneath his wound VAC. He has a left [id number] amputation with chronic wound for which he has been receiving wound care from Dr. Doan. He presently has a wound VAC in place. The lower portion of the wound VAC dressing has a small amount of blood pooled under it and there is a small amount of blood seeping from underneath the wound vac seal. The remainder of the wound VAC dressing appears intact with reasonably good suction. There is also a small amount of blood in the wound VAC tubing and container. Patient reports some tissue on the periphery of the wound site was nicked with a scalpel during debridement. Patient is on warfarin for prophylaxis related to his artificial heart valve. He was recently started on antibiotics for treatment of positive cultures from his wound. Allergies and Home Medications Allergies Coded Allergies: morphine (Verified Allergy, Unknown, 02/22/07) Home Medications Aspirin 81 Mg Tabec, 81 MG PO DAILY, (Reported) Carvedilol 6.25 Mg Tablet, 6.25 MG PO BID, (Reported) Docusate Sodium 100 Mg Capsule, 100 MG PO BID, #60 Prescribed by: CHARLIE VARGAS on 03/18/16 142 Gabapentin 100 Mg Capsule, 100 MG PO DAILY@1200, #30 Prescribed by: CHARLIE VARGAS on 03/18/16 1427 Gabapentin 100 Mg Capsule, 100 MG PO DAILY, #30 Prescribed by: CHARLIE VARGAS on 03/18/16 1427 Gabapentin 100 Mg Capsule, 200 MG PO HS, #30 Prescribed by: CHARLIE VARGAS on 03/18/16 1427 Hydrocodone/Acetaminophen 1 Each Tablet, 1 EACH PO Q4H PRN for PAIN, #60 Prescribed by: CHARLIE VARGAS on 03/18/16 1428 Lisinopril 5 Mg Tablet, 5 MG PO HS, (Reported) Magnesium Oxide 400 Mg Tablet, 400 MG PO BID, (Reported) Multivitamin 1 Each Tablet, 1 TAB PO DAILY, (Reported) Pantoprazole Sodium 40 Mg Tablet.dr, 40 MG PO DAILY, (Reported) Rosuvastatin Calcium 40 Mg Tablet, 40 MG PO, (Reported) Warfarin Sodium 2 Mg Tablet, 4 MG PO DAILY@1800, #30 Prescribed by: CHARLIE VARGAS on 03/18/16 1427 Constitutional: no symptoms reported EENTM: no symptoms reported Respiratory: no symptoms reported Cardiovascular: no symptoms reported Gastrointestinal: no symptoms reported Genitourinary: no symptoms reported Musculoskeletal: no symptoms reported Skin: see HPI Psychiatric/Neurological: No Symptoms Reported Hematologic/Lymphatic: See HPI Past Ipkejvm-Cmoufp-Bwpdza Hx Patient Social History Alcohol Use: Denies Use Recreational Drug Use: No (ETOH) Drug of Choice: [place] Smoking Status: Current Everyday Smoker Type Used: Cigarettes 2nd Hand Smoke Exposure: Yes Recent Hopitalizations: No Immunizations Up To Date Tetanus Booster (TDap): Unknown PED Vaccines UTD: No Seasonal Allergies Seasonal Allergies: No Surgeries HX Surgeries: Yes Surgeries: CABG, Coronary Stent, Open Heart Surgery, Valve Replacement, Vascular Surgery Respiratory Hx Respiratory Disorders: Yes Respiratory Disorders: COPD Cardiovascular Hx Cardiac Disorders: Yes (Chronic Anemia, mitral valve regurg,aortic valve dx , EJF 25%, stenosis, artificial valve replacement requiring anticoagulation) Cardiac Disorders: Chronic Edema/Swelling, Coronary Artery Disease, High Cholesterol, Hypertension, Peripheral Vascular, Valvular Heart Disease Neurological Hx Neurological Disorders: Yes Neurological Disorders: Neuropathy Reproductive System Hx Reproductive Disorders: No Sexually Transmitted Disease: No HIV/AIDS: No Genitourinary Hx Genitourinary Disorders: No Gastrointestinal Hx Gastrointestinal Disorders: Yes Gastrointestinal Disorders: Diverticulosis Musculoskeletal Hx Musculoskeletal Disorders: Yes (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.) Adverse Reaction to a Blood Tr: No Family Medical History Significant Family History: No Pertinent Family Hx, Heart Disease, Hypertension , Psychiatric Problems Family Medial History: Chest pain Family history: Cardiovascular disease Family history: Hypertension Hypercholesterolemia Myocardial infarction Psychotic disorder No Family History of: Abdominal aortic aneurysm Simone's disease Alcoholism Aphasia Cancer Cancer of colon Cataract Congenital heart disease Congestive heart failure Cystic fibrosis Dementia Dysphagia Family history: Allergy Family history: Alzheimer's disease Family history: Arthritis Family history: Asthma Family history: Breast disease Family history: Coronary thrombosis Family history: Diabetes mellitus Family history: Gastrointestinal disease Family history: Glaucoma Family history: Osteoporosis Family history: Thyroid disorder Headache Hearing loss Heart disease Hereditary disease History of - anemia History of - disorder History of - respiratory disease History of drug abuse Human immunodeficiency virus (HIV) seropositivity Infertile Kidney disease Malignant neoplasm of lung Parkinson's disease Prostate cancer Seizure disorder Stroke Tuberculosis Visual impairment Physical Exam Vital Signs Vital Sign - Last 12Hours 07/02/16 19:56 Temp 98.6 Pulse 63 Resp 18 B/P (MAP) 143/109 Pulse Ox 97 O2 Delivery Room Air Capillary Refill : Less Than 3 Seconds General Appearance: No Apparent Distress, WD/WN HEENT: Normal ENT Inspection Respiratory: Normal Breath Sounds, No Respiratory Distress Cardiovascular: Regular Rate, Rhythm, No Edema, No Murmur Extremity: Other (wound VAC intact with reasonably good seal. Small amount of blood oozing from the lower edge of the dressing. Small amount of blood pooled under the lower portion of the wound VAC dressing. 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 INR was obtained and found to be hyper therapeutic at 4.5. Case was reviewed with Dr. Doan. We elected to place a pressure dressing over the affected area with gauze and Coban lightly applied. Patient will follow-up tomorrow to have the wound VAC assessed and the bleeding further addressed. In the meantime, he was instructed to stop antibiotics as they may be affecting his INR. I also instructed him to hold his warfarin for 2 days [address] to contact Dr. Solis's office for further instructions. Patient is agreeable to this plan. Departure Impression Impression: Primary Impression: Bleeding from wound Additional Impression: Supratherapeutic INR Disposition: 01 HOME, SELF-CARE Condition: Improved Departure-Patient Inst. Decision time for Depature: 21:03 Referrals: OTTO MILLER MD (PCP/Family) Primary Care Physician Patient Instructions: Anti-Clotting Medicines: Warfarin (Coumadin) Add. Discharge Instructions: Discontinue use of Coumadin (warfarin) for the next [address] Solis' s office tomorrow morning to develop a plan for resuming warfarin. Also hold Bactrim antibiotic until otherwise instructed by Dr. Doan. Please call Dr. Dona's office early tomorrow morning for a follow-up appointment in the clinic tomorrow. You may loosen or remove your Coban pressure dressing if you feel it is getting too tight. All discharge instructions reviewed with patient and/or family. Voiced understanding. Copy Copies To 1: OTTO MILLER MD Copies To 2: MANUEL SOLIS MD, JOSHUA T MD Jul 02, 2016 21:05
[2016-07-02 21:21] VITALS: BP 142/61
== END 2016-07-02 21:16 | disposition home or self-care (01) ==
LOC: EDUNIT# 19:50 → ER 19:52
DX: T81.89XA Other complications of procedures, not elsewhere classified, initial encounter (principal); Z89.612 Acquired absence of left leg above knee; R79.1 Abnormal coagulation profile; E11.9 Type 2 diabetes mellitus without complications; I10 Essential (primary) hypertension; J44.9 Chronic obstructive pulmonary disease, unspecified; I25.10 Atherosclerotic heart disease of native coronary artery without angina pectoris; Z79.82 Long term (current) use of aspirin; Z79.899 Other long term (current) drug therapy; Z79.01 Long term (current) use of anticoagulants; Z97.8 Presence of other specified devices; Z95.1 Presence of aortocoronary bypass graft; Z95.5 Presence of coronary angioplasty implant and graft; Z95.2 Presence of prosthetic heart valve
CPT/HCPCS: 36415; 85025; 85610; 85730; 99283

== ENCOUNTER → 2016-07-02 | Outpatient (CLI) | payer MEDICARE, MEDICAID ==
[2016-07-02 11:17] LABS: ANION GAP 7 MMOL/L (5-14); BLOOD UREA NITROGEN 12 MG/DL (7-18); BUN/CREATININE RATIO 14; CALCIUM 9.1 MG/DL (8.5-10.1); CARBON DIOXIDE 25 MMOL/L (21-32); CHLORIDE 103 MMOL/L (98-107); CREATININE SERUM 0.86 MG/DL (0.60-1.30); GFR ESTIMATED > 60; GLUCOSE 92 MG/DL (70-105); POTASSIUM 4.6 MMOL/L (3.6-5.0); SODIUM 135 MMOL/L (135-145)
== END ==
LOC: LAB 10:41
PROVIDERS: ATTEND Surgery
DX: L97.123 Non-pressure chronic ulcer of left thigh with necrosis of muscle (principal); T87.81 Dehiscence of amputation stump; I70.241 Atherosclerosis of native arteries of left leg with ulceration of thigh
CPT/HCPCS: 36415; 80048

== ENCOUNTER → 2016-07-08 | Outpatient (CLI) | payer MEDICARE, MEDICAID ==
[2016-07-08 11:37] LABS: ANION GAP 7 MMOL/L (5-14); BLOOD UREA NITROGEN 13 MG/DL (7-18); BUN/CREATININE RATIO 15; CALCIUM 9.2 MG/DL (8.5-10.1); CARBON DIOXIDE 30 MMOL/L (21-32); CHLORIDE 101 MMOL/L (98-107); CREATININE SERUM 0.87 MG/DL (0.60-1.30); GFR ESTIMATED > 60; GLUCOSE 97 MG/DL (70-105); POTASSIUM 4.1 MMOL/L (3.6-5.0); SODIUM 138 MMOL/L (135-145)
== END ==
LOC: LAB 11:04
PROVIDERS: ATTEND Surgery
DX: L97.122 Non-pressure chronic ulcer of left thigh with fat layer exposed (principal); T87.81 Dehiscence of amputation stump; I70.241 Atherosclerosis of native arteries of left leg with ulceration of thigh
CPT/HCPCS: 36415; 80048

== ENCOUNTER → 2016-08-08 | Outpatient (CLI) | payer MEDICARE, MEDICAID ==
[2016-08-08 12:20] LABS: ANION GAP 10 MMOL/L (5-14); BLOOD UREA NITROGEN 13 MG/DL (7-18); BUN/CREATININE RATIO 16; CARBON DIOXIDE 25 MMOL/L (21-32); CHLORIDE 102 MMOL/L (98-107); CREATININE SERUM 0.82 MG/DL (0.60-1.30); GFR ESTIMATED > 60; GLUCOSE 91 MG/DL (70-105); MAGNESIUM 1.3 MG/DL (1.8-2.4); POTASSIUM 4.5 MMOL/L (3.6-5.0); SODIUM 137 MMOL/L (135-145)
== END ==
LOC: HH 11:41
PROVIDERS: ATTEND Family Medicine
DX: L97.122 Non-pressure chronic ulcer of left thigh with fat layer exposed (principal); M62.838 Other muscle spasm
CPT/HCPCS: 80048; 83735

== ENCOUNTER → 2016-08-18 | Outpatient (RCR) | payer MEDICARE, MEDICAID ==
--- OUTSIDE RECORDS SUMMARY | 2016-05-20 10:55 | XMS REPORT | Continuity of Care Document ---
Author Author [facility] Organization [facility] Address Unknown Phone Unavailable Care Team Providers Care Channeler Runner Name Role Phone FABI CABA MD PCP Insurance Providers Payer Name Policy Number Subscriber Name Relationship Wps Medicare [id number] Bony Eddy 18 Self / Same As Patient Marshall [employer] [id number] Bony Eddy 18 Self / Same As Patient Advance Directives Directive Response Recorded Date/Time Advance Directives Yes 04/14/14 12:58pm Health Care Power of Electric Power Machine Operator Yes 04/14/14 12:58pm Organ Donor [...] SELECTED GROUPS OF HIGH RISK PATIENTS. [employer] [place] [employer]ST PH[employer] CONSENSUS CONFERENCE ON ANTITHROMBOTIC THERAPY (2000). Procedures No known history of procedures. Encounters Encounter Location Date/Time Discharged Recurring Via [facility] 06/23/14 11:51am Discharged Recurring Via [facility] 05/03/14 10:30am
[2016-05-20 11:10] LABS: INR 2.4 (0.8-1.4); PROTHROMBIN TIME PATIENT 26.2 SEC (12.2-14.7)
[2016-07-08 11:32] LABS: INR 1.1 (0.8-1.4); PROTHROMBIN TIME PATIENT 13.7 SEC (12.2-14.7)
[2016-07-15 11:58] LABS: INR 1.5 (0.8-1.4)
[2016-07-21 09:10] LABS: INR 2.4 (0.8-1.4); PROTHROMBIN TIME PATIENT 26.1 SEC (12.2-14.7)
[2016-07-28 09:14] LABS: INR 1.6 (0.8-1.4); PROTHROMBIN TIME PATIENT 18.6 SEC (12.2-14.7)
[2016-08-06 14:02] LABS: INR 1.6 (0.8-1.4); PROTHROMBIN TIME PATIENT 19.2 SEC (12.2-14.7)
[2016-08-18 09:57] LABS: INR 2.5 (0.8-1.4)
== END | disposition home or self-care (01) ==
LOC: LAB 05-20 10:52
PROVIDERS: ATTEND Internal Medicine Cardiovascular Disease
DX: Z51.81 Encounter for therapeutic drug level monitoring (principal); Z79.01 Long term (current) use of anticoagulants
CPT/HCPCS: 36415; 85610

== ENCOUNTER 2016-09-13 21:16 | Emergency (ER) | payer MEDICARE, MEDICAID ==
[~2016-09-13] VITALS: Ht 160 cm; Wt 68.2 kg
[~2016-09-13 21:16] MED LIST changes: +DOCU-143 PO; +HYDR-3816 PO; +LACT1CAP45 PO; +LINE600T7 PO; +WARF-47 PO
[2016-09-13] MEDS ORDERED: LINE600T7 (21:25)
--- NOTE | 2016-09-13 21:44 | ED Fever ---
History of Present Illness General Chief Complaint: Fever-Adult/Adol Stated Complaint: STIFF NECK AND BACK;FEVER Nursing Triage Note: c/o fever, with neck and back pain Sepsis Screen: No Definite Risk Source: patient, family, RN notes reviewed Exam Limitations: no limitations History of Present Illness Time seen by provider: 21:38 Initial Comments Patient presents c/ c/o fever, neck & back pain x 3 days. Basically, right now , he hurts everywhere. Denies any specific GI, respiratory, or symptoms. Currently rating his pain a 5/10 and describes it has constant and aching. 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) Associated Symptoms: muscle aches, stiff neck, other (back pain) Allergies and Home Medications Allergies Coded Allergies: morphine (Verified Allergy, Unknown, 09/01/16) Home Medications Allopurinol 100 Mg Tablet, 100 MG PO DAILY, (Reported) Aspirin 81 Mg Tabec, 81 MG PO DAILY, (Reported) Carvedilol 6.25 Mg Tablet, 6.25 MG PO BID, (Reported) HOLD FOR SBP<110 Cephalexin 500 Mg Capsule, 500 MG PO TID, #30 Ref 0 Prescribed by: RAISSA OLSON on 09/14/16 0205 Docusate Sodium 100 Mg Capsule, 100 MG PO Mo, (Reported) Famotidine 20 Mg Tablet, 20 MG PO BID, #60 Ref 2 Prescribed by: RIASSA OLSON on 09/14/16 0205 Gabapentin 300 Mg Capsule, 300 MG PO TID, (Reported) Hydrocodone/Acetaminophen 1 Each Tablet, 1 TAB PO Q6H PRN for PAIN-MODERATE, ( Reported) Lactobacillus Acidophilus 1 Each Capsule, 1 EACH PO TID for 10 Days, #30 Prescribed by: OTTO MILLER on 09/04/16 0924 Linezolid 600 Mg Tablet, #28 (Reported) Lisinopril 5 Mg Tablet, 5 MG PO 1700, (Reported) Magnesium Oxide 400 Mg Tablet, 400 MG PO BID, (Reported) Multivitamin 1 Each Tablet, 1 TAB PO DAILY, (Reported) Pantoprazole Sodium 40 Mg Tablet.dr, 40 MG PO DAILY, (Reported) Warfarin Sodium 2 Mg Tablet, 2 MG PO SuSa@1200, (Reported) Warfarin Sodium 2 Mg Tablet, 4 MG PO MoTuWeThFr@1200 for 30 Days, #30 HOLD UNTIL 09/07/16 - RESTART ROUTINE COUMADIN ON 09/07/16 Prescribed by: OTTO MILLER on 09/04/16 0924 Constitutional: see HPI, fever Musculoskeletal: see HPI, back pain, muscle pain, muscle stiffness, muscle cramps, neck pain All Other Systems Reviewed Negative Unless Noted: Yes (Negative excepted noted.) Past Wxqvmkz-Fsnutv-Iegbap Hx Patient Social History Alcohol Use: Past History Recreational Drug Use: No Drug of Choice: [place] Smoking Status: Current Everyday Smoker Type Used: Cigarettes 2nd Hand Smoke Exposure: Yes Recent Foreign Travel: No Contact w/Someone Who Travel: No Recent Infectious Disease Expo: No Recent Hopitalizations: No Immunizations Up To Date Tetanus Booster (TDap): Unknown PED Vaccines UTD: No Seasonal Allergies Seasonal Allergies: Yes Surgeries HX Surgeries: Yes Surgeries: CABG, Coronary Stent, Open Heart Surgery, Valve Replacement, Vascular Surgery Respiratory Hx Respiratory Disorders: Yes Respiratory Disorders: COPD Cardiovascular Hx Cardiac Disorders: Yes (Chronic Anemia, mitral valve regurg,aortic valve dx , EJF 25%, stenosis) Cardiac Disorders: Chronic Edema/Swelling, Coronary Artery Disease, High Cholesterol, Hypertension, Peripheral Vascular, Valvular Heart Disease Neurological Hx Neurological Disorders: No Neurological Disorders: Neuropathy Reproductive System Hx Reproductive Disorders: No Sexually Transmitted Disease: No HIV/AIDS: No Genitourinary Hx Genitourinary Disorders: No Gastrointestinal Hx Gastrointestinal Disorders: No Gastrointestinal Disorders: Diverticulosis Musculoskeletal Hx Musculoskeletal Disorders: Yes (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 usp anticoag therapy.) Adverse Reaction to a Blood Tr: No Family Medical History Significant Family History: No Pertinent Family Hx, Heart Disease, Hypertension , Psychiatric Problems Family Medial History: Physical Exam Vital Signs Vital Sign - Last 12Hours 09/13/16 21:21 Temp 99.4 Pulse 82 Resp 18 B/P (MAP) 135/69 Pulse Ox 95 Capillary Refill : Less Than 3 Seconds General Appearance: WD/WN, no apparent distress HEENT: normal ENT inspection Neck: limited range of motion, tender lateral Respiratory: no respiratory distress, decreased breath sounds Cardiovascular: regular rate, rhythm Extremities: other (left AKA) Neurologic/Psychiatric: no motor/sensory deficits, alert, oriented x 3 Skin: warm/dry, No rash Focused Exam Lactic Acid Level Laboratory Tests Test 09/13/16 22:10 Lactic Acid Level 0.71 MMOL/L (0.50-2.00) Progress/Results/Core Measures Results/Orders Lab Results Laboratory Tests Test 09/13/16 22:10 09/13/16 23:10 Range/Units White Blood Count 9.7 4.3-11.0 10^3/uL Red Blood Count 3.14 L 4.35-5.85 10^6/uL Hemoglobin 9.0 L 13.3-17.7 G/DL Hematocrit 28 L 40-54 % Mean Corpuscular Volume 89 80-99 FL Mean Corpuscular Hemoglobin 29 25-34 PG Mean Corpuscular Hemoglobin Concent 32 32-36 G/DL Red Cell Distribution Width 15.2 H 10.0-14.5 % Platelet Count 387 130-400 10^3/uL Mean Platelet Volume 9.7 7.4-10.4 FL Neutrophils (%) (Auto) 66 42-75 % Lymphocytes (%) (Auto) 22 12-44 % Monocytes (%) (Auto) 10 0-12 % Eosinophils (%) (Auto) 2 0-10 % Basophils (%) (Auto) 0 0-10 % Neutrophils # (Auto) 6.4 1.8-7.8 X 10^3 Lymphocytes # (Auto) 2.1 1.0-4.0 X 10^3 Monocytes # (Auto) 0.9 0.0-1.0 X 10^3 Eosinophils # (Auto) 0.2 0.0-0.3 10^3/uL Basophils # (Auto) 0.0 0.0-0.1 10^3/uL Prothrombin Time 22.8 H 12.2-14.7 SEC INR Comment 2.0 H 0.8-1.4 Sodium Level 138 135-145 MMOL/L Potassium Level 4.2 3.6-5.0 MMOL/L Chloride Level 106 98-107 MMOL/L Carbon Dioxide Level 24 21-32 MMOL/L Anion Gap 8 5-14 MMOL/L Blood Urea Nitrogen 18 7-18 MG/DL Creatinine 0.73 0.60-1.30 MG/DL Estimat Glomerular Filtration Rate > 60 BUN/Creatinine Ratio 25 Glucose Level 106 H 70-105 MG/DL Lactic Acid Level 0.71 0.50-2.00 MMOL/L Calcium Level 9.1 8.5-10.1 MG/DL Magnesium Level 0.9 *L 1.8-2.4 MG/DL Total Bilirubin 0.3 0.1-1.0 MG/DL Aspartate Amino Transf (AST/SGOT) 11 5-34 U/L Alanine Aminotransferase (ALT/SGPT) 8 0-55 U/L Alkaline Phosphatase 66 40-136 U/L Total Protein 6.4 6.4-8.2 GM/DL Albumin 3.1 L 3.2-4.5 GM/DL Urine Color YELLOW Urine Clarity CLEAR Urine pH 6 5-9 Urine Specific [place] 1.015 L 1.016-1.022 Urine Protein 1+ H NEGATIVE Urine Glucose (UA) NEGATIVE NEGATIVE Urine Ketones NEGATIVE NEGATIVE Urine Nitrite NEGATIVE NEGATIVE Urine Bilirubin NEGATIVE NEGATIVE Urine Urobilinogen NORMAL NORMAL MG/DL Urine Leukocyte Esterase 2+ H NEGATIVE Urine RBC (Auto) NEGATIVE NEGATIVE Urine RBC NONE /HPF Urine WBC 0-2 /HPF Urine Squamous Epithelial Cells 2-5 /HPF Urine Crystals NONE /LPF Urine Bacteria TRACE /HPF Urine Casts NONE /LPF Urine Mucus SMALL H /LPF Urine Culture Indicated NO My Orders Orders - RAISSA OLSON DO Saline Lock/Iv-Start (09/13/16 21:44) Cbc With Automated Diff (09/13/16 21:44) Comprehensive Metabolic Panel (09/13/16 21:44) Lactic Acid Analyzer (09/13/16 21:44) Magnesium (09/13/16 21:44) Ua Culture If Indicated (09/13/16 21:44) Blood Culture (09/13/16 21:44) Chest 1 View, Ap/Pa Only (09/13/16 21:44) Protime With Inr (09/13/16 22:44) Magnesium 1 Gm/100 Ml Ivpb (Magnesium Lo (09/13/16 23:15) Cephalexin Capsule (Keflex Capsule) (09/14/16 00:45) Ketorolac Injection (Toradol Injection) (09/14/16 00:45) Ketorolac Injection (Toradol Injection) (09/14/16 01:49) Cephalexin Capsule (Keflex Capsule) (09/14/16 01:50) Medications Given in ED Current Medications Medications Dose Ordered Sig/Celestine Route Start Time Stop Time Status Last Admin Dose Admin Cephalexin HCl 500 mg ONCE ONCE PO 09/14/16 00:45 09/14/16 02:10 DC 09/14/16 02:05 500 MG Ketorolac Tromethamine 30 mg STK-MED ONCE .ROUTE 09/14/16 01:49 09/14/16 01:56 DC 09/14/16 02:06 15 MG Vital Signs/I&O Vital Sign - Last 12Hours 09/13/16 09/14/16 21:21 02:07 Temp 99.4 Pulse 82 62 Resp 18 18 B/P (MAP) 135/69 Pulse Ox 95 97 Blood Pressure Mean: 91 Progress Note : Progress Note Feels much improved @ time of discharge. Diagnostic Imaging Diagonstic Imaging: Xray Plain Films/CT/US/NM/MRI: chest Reviewed: Reviewed by Me (nothing acute) Departure Impression Impression: Primary Impression: Hypomagnesemia Additional Impressions: UTI (urinary tract infection) Fever Disposition: 01 HOME, SELF-CARE Condition: Improved Departure-Patient Inst. Decision time for Depature: 02:01 Referrals: OTTO MILLER MD (PCP/Family) Primary Care Physician Patient Instructions: Urinary Tract Infection, Adult (DC), Fever, Adult (DC) Add. Discharge Instructions: All discharge instructions reviewed with patient and/or family. Voiced understanding. RECOMMEND STOPPING YOUR PANTOPRAZOLE SINCE IT IS THE LIKELY CAUSE OF YOUR MAGNESIUM BEING LOW. WILL REPLACE IT WITH PEPCID AND HAVE YOU CONTINUE ON YOUR CURRENT DOSE OF MAGNESIUM DAILY. RECOMMEND HAVING IT RECHECKED NEXT WEEK BY YOUR PCP. Scripts Famotidine (Pepcid) 20 Mg Tablet 20 MG PO BID, #60 TAB 2 Refills Prov: RAISSA OLSON DO 09/14/16 Cephalexin (Keflex) 500 Mg Capsule 500 MG PO TID, #30 CAP 0 Refills Prov: RAISSA OLSON DO 09/14/16 RAISSA OLSON DO Sep 13, 2016 21:44
[2016-09-13 22:21] LABS: BASOPHILS % (AUTO) 0 % (0-10); EOSINOPHILS # (AUTO) 0.2 10^3/uL (0.0-0.3); EOSINOPHILS % (AUTO) 2 % (0-10); LYMPHOCYTES # (AUTO) 2.1 X 10^3 (1.0-4.0); LYMPHOCYTES % (AUTO) 22 % (12-44); MEAN CORPUSCULAR HEMOGLOBIN 29 PG (25-34); MEAN CORPUSCULAR HGB CONC 32 G/DL (32-36); MEAN CORPUSCULAR VOLUME 89 FL (80-99); MEAN PLATELET VOLUME 9.7 FL (7.4-10.4); MONOCYTES # (AUTO) 0.9 X 10^3 (0.0-1.0); MONOCYTES % (AUTO) 10 % (0-12); NEUTROPHILS # (AUTO) 6.4 X 10^3 (1.8-7.8); NEUTROPHILS % (AUTO) 66 % (42-75); PLATELET COUNT 387 10^3/uL (130-400); RED BLOOD COUNT 3.14 10^6/uL (4.35-5.85); RED CELL DISTRIBUTION WIDTH 15.2 % (10.0-14.5); WHITE BLOOD COUNT 9.7 10^3/uL (4.3-11.0)
[2016-09-13 22:44] LABS: ALANINE AMINOTRANSFERASE 8 U/L (0-55); ALBUMIN 3.1 GM/DL (3.2-4.5); ANION GAP 8 MMOL/L (5-14); ASPARTATE AMINO TRANSFERASE 11 U/L (5-34); BILIRUBIN,TOTAL 0.3 MG/DL (0.1-1.0); BLOOD UREA NITROGEN 18 MG/DL (7-18); BUN/CREATININE RATIO 25; CALCIUM 9.1 MG/DL (8.5-10.1); CARBON DIOXIDE 24 MMOL/L (21-32); CHLORIDE 106 MMOL/L (98-107); CREATININE SERUM 0.73 MG/DL (0.60-1.30); GFR ESTIMATED > 60; GLUCOSE 106 MG/DL (70-105); POTASSIUM 4.2 MMOL/L (3.6-5.0); SODIUM 138 MMOL/L (135-145); TOTAL PROTEIN 6.4 GM/DL (6.4-8.2)
[2016-09-13 22:52] LABS: PROTHROMBIN TIME PATIENT 22.8 SEC (12.2-14.7)
[2016-09-13 23:00] LABS: MAGNESIUM 0.9 MG/DL (1.8-2.4)
[2016-09-13] MEDS: MAGNESIUM 1 GM/100 ML IVPB 100 ML IV SCH (23:15)
[2016-09-13 23:21] LABS: BILIRUBIN,URINE NEGATIVE (NEGATIVE); KETONES,URINE NEGATIVE (NEGATIVE); LEUKOCYTE ESTERASE ,URINE 2+ (NEGATIVE); NITRITE,URINE NEGATIVE (NEGATIVE); PH,URINE 6 (5-9); PROTEIN,URINE 1+ (NEGATIVE); UROBILINOGEN,URINE NORMAL (NORMAL)
[2016-09-13 23:27] LABS: WBC,URINE 0-2 /HPF
[2016-09-14] MEDS: MAGNESIUM 1 GM/100 ML IVPB 100 ML IV SCH ×2 (00:10→01:07)
[2016-09-14] MEDS ORDERED: CEPHALEXIN 250 MG (KEFLEX) CAP PO ONE ×2 (00:45→01:50)
[2016-09-14] MEDS ORDERED: KETOROLAC 30 MG/ML VIAL ONE (01:49)
[2016-09-14] MEDS ORDERED: FAMO-119 PO (02:05)
[2016-09-14] MEDS ORDERED: CEPH-507 PO (02:05)
[2016-09-14] MEDS: KETOROLAC 15 MG/ML VIAL IVP ONE (02:06)
[2016-09-14 02:07] VITALS: BP 133/62
--- NOTE | 2016-09-14 07:36 | Diagnostic Imaging Report ---
INDICATION: Chest pain. Comparison made with prior examination from 09/01/16 FINDINGS: There is cardiomegaly. There has been a previous median sternotomy. There is a small left pleural effusion. There is no pneumothorax. There has been some venous congestion. IMPRESSION: Cardiomegaly and mild venous congestion with small left pleural effusion. Dictated by: Dictated on workstation # [id number]
== END 2016-09-14 02:09 | disposition home or self-care (01) ==
LOC: EDUNIT# 21:16 → ER 21:17
DX: E83.42 Hypomagnesemia; D64.9 Anemia, unspecified; E11.40 Type 2 diabetes mellitus with diabetic neuropathy, unspecified; Z79.01 Long term (current) use of anticoagulants; F17.210 Nicotine dependence, cigarettes, uncomplicated; Z95.1 Presence of aortocoronary bypass graft; I10 Essential (primary) hypertension; Z95.5 Presence of coronary angioplasty implant and graft; N39.0 Urinary tract infection, site not specified; Z79.82 Long term (current) use of aspirin; Z95.2 Presence of prosthetic heart valve; J44.9 Chronic obstructive pulmonary disease, unspecified; E78.00 Pure hypercholesterolemia, unspecified; I73.9 Peripheral vascular disease, unspecified; I25.10 Atherosclerotic heart disease of native coronary artery without angina pectoris
CPT/HCPCS: 36415; 71010; 80053; 81000; 83605; 83735; 85025; 85610; 87040; 96365; 96366; 96375

== ENCOUNTER → 2016-09-22 | Outpatient (RCR) | payer MEDICARE, MEDICAID ==
[~2016-09-22] MED LIST changes: +CEPH-507 PO; +FAMO-119 PO; +LINE600T7
== END | disposition home or self-care (01) ==
LOC: WOUNDCARE 06-24 09:58
PROVIDERS: ATTEND Surgery
DX: L97.123 Non-pressure chronic ulcer of left thigh with necrosis of muscle (principal); L97.523 Non-pressure chronic ulcer of other part of left foot with necrosis of muscle; I77.9 Disorder of arteries and arterioles, unspecified; F17.210 Nicotine dependence, cigarettes, uncomplicated; T87.81 Dehiscence of amputation stump; I70.241 Atherosclerosis of native arteries of left leg with ulceration of thigh
CPT/HCPCS: 11042; 11045; 15271; 87070; 87075; 87077; 87186; 87205; 97605

== ENCOUNTER 2016-10-06 08:59 | Outpatient (RCR) | payer MEDICARE, MEDICAID | END 2016-10-06 16:00 | disposition home or self-care (01) | LOC: WOUNDCARE 08:59 | PROVIDERS: ATTEND Surgery | DX: L97.123 Non-pressure chronic ulcer of left thigh with necrosis of muscle (principal); L97.523 Non-pressure chronic ulcer of other part of left foot with necrosis of muscle; I77.9 Disorder of arteries and arterioles, unspecified; F17.210 Nicotine dependence, cigarettes, uncomplicated; T87.81 Dehiscence of amputation stump; I70.241 Atherosclerosis of native arteries of left leg with ulceration of thigh | CPT/HCPCS: 11042; 87070; 87075; 87077; 87205; 97597 ==

== ENCOUNTER → 2016-10-13 | Outpatient (CLI) | payer MEDICARE, MEDICAID | LOC: WOUNDCARE 11:25 | PROVIDERS: ATTEND Surgery | DX: L97.122 Non-pressure chronic ulcer of left thigh with fat layer exposed (principal); L97.121 Non-pressure chronic ulcer of left thigh limited to breakdown of skin; I70.241 Atherosclerosis of native arteries of left leg with ulceration of thigh; T87.81 Dehiscence of amputation stump | CPT/HCPCS: 11042; 97597 ==

== ENCOUNTER → 2016-10-15 | Outpatient (CLI) | payer MEDICARE, MEDICAID ==
[~2016-10-15] MED LIST changes: +CATHETER FLUSH 10 ML SYR IV PRN; +REGADENOSON 0.4 MG/5 ML SYR (LEXISCAN) IV ONE
[2016-10-15 09:52] VITALS: BP 102/50
[2016-10-15 09:56] VITALS: BP 91/61
--- NOTE | 2016-10-16 08:45 | STRESS TEST ---
DATE OF SERVICE: 10/15/2016 LEXISCAN MYOVIEW STRESS TEST REPORT REFERRING PHYSICIAN: Dr. Alvarez. The patient was injected with 9.8 mCi of technetium-99 Myoview and the resting images were obtained. Then, the patient received 0.4 mg of Lexiscan followed by 30.0 mCi of technetium-99 Myoview. Throughout the test, there were no EKG changes. The resting and stress images were reviewed and compared in the short axis, horizontal long axis, and vertical long axis views. Review of the images showed diaphragmatic attenuation with mild decreased uptake at the mid to apical inferior wall with no significant ischemia. SSS is 2, SDS is zero, TID value 0.99. On the gated images, the left ventricle appeared to be normal size with hypokinesia at the septum, probably due to the left bundle branch block. Calculated ejection fraction of 42%. CONCLUSION: 1. The patient tolerated Lexiscan well. 2. Baseline left bundle branch block persisted throughout test. 3. Diaphragmatic attenuation with typical male pattern with no significant ischemia or infarction on SPECT images. 4. Prominent left ventricle with hypokinesia at the septum and anterior septum, calculated ejection fraction of 42%. Job ID: [id number] DocumentID: [id number] Dictated Date: 10/15/2016 14:48:38 Catheter Builder Date: 10/15/2016 18:17:07 Dictated By: MANUEL BASS MD
== END ==
LOC: CARD 08:45
PROVIDERS: ATTEND Physician Assistant
DX: I65.23 Occlusion and stenosis of bilateral carotid arteries (principal); I25.10 Atherosclerotic heart disease of native coronary artery without angina pectoris; E78.2 Mixed hyperlipidemia; I73.9 Peripheral vascular disease, unspecified
CPT/HCPCS: 78452; 93017

== ENCOUNTER → 2016-10-17 | Outpatient (CLI) | payer MEDICARE, MEDICAID ==
[~2016-10-17] MED LIST changes: -CATHETER FLUSH 10 ML SYR IV PRN; -REGADENOSON 0.4 MG/5 ML SYR (LEXISCAN) IV ONE
[2016-10-17 11:27] LABS: PROTHROMBIN TIME PATIENT 46.8 SEC (12.2-14.7)
[2016-10-17 11:40] LABS: CALCIUM 9.1 MG/DL (8.5-10.1); POTASSIUM 3.6 MMOL/L (3.6-5.0)
== END ==
LOC: HH 10:59
PROVIDERS: ATTEND Surgery
DX: I70.241 Atherosclerosis of native arteries of left leg with ulceration of thigh (principal); I50.21 Acute systolic (congestive) heart failure; N18.4 Chronic kidney disease, stage 4 (severe); L97.122 Non-pressure chronic ulcer of left thigh with fat layer exposed; L97.121 Non-pressure chronic ulcer of left thigh limited to breakdown of skin; T87.81 Dehiscence of amputation stump
CPT/HCPCS: 80048; 85610

== ENCOUNTER → 2016-10-20 | Outpatient (CLI) | payer MEDICARE, MEDICAID | LOC: WOUNDCARE 08:56 | PROVIDERS: ATTEND Surgery | DX: L97.122 Non-pressure chronic ulcer of left thigh with fat layer exposed (principal); L97.121 Non-pressure chronic ulcer of left thigh limited to breakdown of skin; I70.241 Atherosclerosis of native arteries of left leg with ulceration of thigh; T87.81 Dehiscence of amputation stump | CPT/HCPCS: 11042; 97597 ==

== ENCOUNTER → 2016-10-27 | Outpatient (CLI) | payer MEDICARE, MEDICAID | LOC: WOUNDCARE 08:54 | PROVIDERS: ATTEND Nurse Practitioner | DX: I70.241 Atherosclerosis of native arteries of left leg with ulceration of thigh (principal); L97.122 Non-pressure chronic ulcer of left thigh with fat layer exposed; L97.121 Non-pressure chronic ulcer of left thigh limited to breakdown of skin; T87.81 Dehiscence of amputation stump | CPT/HCPCS: 11042; 97597 ==

== ENCOUNTER 2016-11-03 11:03 | Outpatient (RCR) | payer MEDICARE, MEDICAID ==
[2016-08-25 10:42] LABS: INR 3.3 (0.8-1.4); PROTHROMBIN TIME PATIENT 33.5 SEC (12.2-14.7)
[2016-09-08 09:20] LABS: INR 1.3 (0.8-1.4); PROTHROMBIN TIME PATIENT 16.3 SEC (12.2-14.7)
[2016-09-15 10:33] LABS: INR 1.8 (0.8-1.4); PROTHROMBIN TIME PATIENT 20.2 SEC (12.2-14.7)
[2016-09-22 10:02] LABS: INR 2.4 (0.8-1.4); PROTHROMBIN TIME PATIENT 25.7 SEC (12.2-14.7)
[2016-09-29 10:16] LABS: INR 1.9 (0.8-1.4); PROTHROMBIN TIME PATIENT 21.8 SEC (12.2-14.7)
[2016-10-06 10:07] LABS: INR 2.3 (0.8-1.4); PROTHROMBIN TIME PATIENT 25.2 SEC (12.2-14.7)
[2016-10-13 12:41] LABS: INR 2.4 (0.8-1.4); PROTHROMBIN TIME PATIENT 25.9 SEC (12.2-14.7)
[2016-10-20 09:16] LABS: PROTHROMBIN TIME PATIENT 22.1 SEC (12.2-14.7)
[2016-10-27 09:53] LABS: INR 1.3 (0.8-1.4); PROTHROMBIN TIME PATIENT 16.3 SEC (12.2-14.7)
[2016-11-03 11:44] LABS: INR 1.3 (0.8-1.4); PROTHROMBIN TIME PATIENT 16.7 SEC (12.2-14.7)
== END 2016-11-23 | disposition home or self-care (01) ==
LOC: LAB 11:03
PROVIDERS: ATTEND Internal Medicine Cardiovascular Disease
DX: Z51.81 Encounter for therapeutic drug level monitoring (principal); Z79.01 Long term (current) use of anticoagulants; Z95.2 Presence of prosthetic heart valve
CPT/HCPCS: 36415; 85610

== ENCOUNTER → 2016-11-03 | Outpatient (CLI) | payer MEDICARE, MEDICAID | LOC: WOUNDCARE 11:08 | PROVIDERS: ATTEND Surgery | DX: I70.241 Atherosclerosis of native arteries of left leg with ulceration of thigh (principal); L97.122 Non-pressure chronic ulcer of left thigh with fat layer exposed; L97.121 Non-pressure chronic ulcer of left thigh limited to breakdown of skin; T87.81 Dehiscence of amputation stump | CPT/HCPCS: 11042; 97597 ==

== ENCOUNTER → 2016-11-03 | Outpatient (CLI) | payer MEDICARE, MEDICAID ==
[2016-11-03 14:01] LABS: ANION GAP 11 MMOL/L (5-14); BLOOD UREA NITROGEN 15 MG/DL (7-18); BUN/CREATININE RATIO 13; CALCIUM 9.6 MG/DL (8.5-10.1); CARBON DIOXIDE 26 MMOL/L (21-32); CHLORIDE 97 MMOL/L (98-107); CREATININE SERUM 1.12 MG/DL (0.60-1.30); GFR ESTIMATED > 60; GLUCOSE 106 MG/DL (70-105); POTASSIUM 3.9 MMOL/L (3.6-5.0); SODIUM 134 MMOL/L (135-145)
== END ==
LOC: HH 13:48
PROVIDERS: ATTEND Surgery
DX: L97.122 Non-pressure chronic ulcer of left thigh with fat layer exposed (principal)
CPT/HCPCS: 80048

== ENCOUNTER → 2016-11-14 | Outpatient (CLI) | payer MEDICARE, MEDICAID ==
[2016-11-14 12:35] LABS: INR 3.1 (0.8-1.4); PROTHROMBIN TIME PATIENT 31.7 SEC (12.2-14.7)
== END ==
LOC: HH 11:00
PROVIDERS: ATTEND Internal Medicine Cardiovascular Disease
DX: I70.241 Atherosclerosis of native arteries of left leg with ulceration of thigh (principal); L97.122 Non-pressure chronic ulcer of left thigh with fat layer exposed; T87.81 Dehiscence of amputation stump; L97.121 Non-pressure chronic ulcer of left thigh limited to breakdown of skin; Z79.01 Long term (current) use of anticoagulants
CPT/HCPCS: 85610

== ENCOUNTER → 2016-11-14 | Outpatient (CLI) | payer MEDICARE, MEDICAID ==
[2016-11-14 16:54] LABS: BASOPHILS % (AUTO) 0 % (0-10); EOSINOPHILS # (AUTO) 0.2 10^3/uL (0.0-0.3); EOSINOPHILS % (AUTO) 2 % (0-10); LYMPHOCYTES # (AUTO) 2.6 X 10^3 (1.0-4.0); LYMPHOCYTES % (AUTO) 24 % (12-44); MEAN CORPUSCULAR HEMOGLOBIN 29 PG (25-34); MEAN CORPUSCULAR HGB CONC 33 G/DL (32-36); MEAN CORPUSCULAR VOLUME 87 FL (80-99); MEAN PLATELET VOLUME 12.1 FL (7.4-10.4); MONOCYTES # (AUTO) 1.8 X 10^3 (0.0-1.0); MONOCYTES % (AUTO) 16 % (0-12); NEUTROPHILS # (AUTO) 6.3 X 10^3 (1.8-7.8); NEUTROPHILS % (AUTO) 58 % (42-75); PLATELET COUNT 155 10^3/uL (130-400); RED BLOOD COUNT 3.69 10^6/uL (4.35-5.85); RED CELL DISTRIBUTION WIDTH 14.6 % (10.0-14.5); WHITE BLOOD COUNT 10.9 10^3/uL (4.3-11.0)
== END ==
LOC: HH 11:35
PROVIDERS: ATTEND Family Medicine
DX: I11.0 Hypertensive heart disease with heart failure (principal); I50.9 Heart failure, unspecified
CPT/HCPCS: 85025; 85610

== ENCOUNTER → 2016-11-17 | Outpatient (CLI) | payer MEDICARE, MEDICAID | LOC: WOUNDCARE 08:31 | PROVIDERS: ATTEND Surgery | DX: L97.122 Non-pressure chronic ulcer of left thigh with fat layer exposed (principal); L97.121 Non-pressure chronic ulcer of left thigh limited to breakdown of skin; I70.241 Atherosclerosis of native arteries of left leg with ulceration of thigh; T87.81 Dehiscence of amputation stump | CPT/HCPCS: 11042 ==

== ENCOUNTER → 2016-11-24 | Outpatient (CLI) | payer MEDICARE, MEDICAID | LOC: WOUNDCARE 08:31 | PROVIDERS: ATTEND Surgery | DX: L97.122 Non-pressure chronic ulcer of left thigh with fat layer exposed (principal); I70.241 Atherosclerosis of native arteries of left leg with ulceration of thigh; T65.222A Toxic effect of tobacco cigarettes, intentional self-harm, initial encounter | CPT/HCPCS: 11042 ==

== ENCOUNTER → 2016-12-01 | Outpatient (CLI) | payer MEDICARE, MEDICAID | LOC: WOUNDCARE 08:23 | PROVIDERS: ATTEND Surgery | DX: L97.122 Non-pressure chronic ulcer of left thigh with fat layer exposed (principal); I70.241 Atherosclerosis of native arteries of left leg with ulceration of thigh; T65.222A Toxic effect of tobacco cigarettes, intentional self-harm, initial encounter | CPT/HCPCS: 99212 ==

== ENCOUNTER → 2017-03-27 | Outpatient (CLI) | payer MEDICARE, MEDICAID ==
[~2017-03-27] MED LIST changes: -HYDR-3812 PO
--- NOTE | 2017-03-27 11:51 | Diagnostic Imaging Report ---
INDICATION: Right wrist injury. TIME OF EXAM: 11:06 AM FINDINGS: Three views of the right wrist demonstrate the distal radius and ulna to be intact. There is chondrocalcinosis of the triangular fibrocartilage. The carpal bones appear to be intact. No fractures are seen. There are vascular calcifications present. IMPRESSION: Chronic changes. No acute feature is detected. Dictated by: Dictated on workstation # [id number]
--- NOTE | 2017-03-27 11:51 | Diagnostic Imaging Report ---
INDICATION: Injury to the right hand and wrist. TIME OF EXAM: 11:02 AM FINDINGS: The metacarpals appear intact. The phalanges are intact. No fractures are seen. There are vascular and soft tissue calcifications present. IMPRESSION: No acute bony abnormality is detected. Dictated by: Dictated on workstation # [id number]
== END ==
LOC: RAD 10:32
PROVIDERS: ATTEND Family Medicine
DX: S69.91XA Unspecified injury of right wrist, hand and finger(s), initial encounter (principal)
CPT/HCPCS: 73110; 73130

== ENCOUNTER → 2017-07-08 | Outpatient (CLI) | payer MEDICARE, MEDICAID ==
[~2017-07-08] MED LIST changes: +HYDR-34 PO; -HYDR-3816 PO
[2017-07-08 10:25] LABS: INR 3.2 (0.8-1.4); PROTHROMBIN TIME PATIENT 32.5 SEC (12.2-14.7)
== END ==
LOC: LAB 09:48
PROVIDERS: ATTEND Internal Medicine Cardiovascular Disease
DX: Z51.81 Encounter for therapeutic drug level monitoring (principal); Z79.01 Long term (current) use of anticoagulants; Z95.2 Presence of prosthetic heart valve
CPT/HCPCS: 36415; 85610

== ENCOUNTER 2017-10-01 11:20 | Outpatient (RCR) | payer MEDICARE, MEDICAID ==
[~2017-10-01 11:20] MED LIST changes: +LINE600T33; +LINE600T33 PO; -LINE600T7; -LINE600T7 PO
== END 2017-10-01 11:56 | disposition home or self-care (01) ==
PROVIDERS: ATTEND Nurse Practitioner Family
DX: R53.1 Weakness (principal); Z89.612 Acquired absence of left leg above knee

== ENCOUNTER 2017-10-20 16:26 | Outpatient (RCR) | payer MEDICARE, MEDICAID ==
[2017-10-20 17:23] LABS: INR 3.2 (0.8-1.4)
== END 2017-11-06 | disposition home or self-care (01) ==
LOC: LAB 16:26
PROVIDERS: ATTEND Internal Medicine Cardiovascular Disease
DX: Z51.81 Encounter for therapeutic drug level monitoring (principal); Z95.2 Presence of prosthetic heart valve; Z79.01 Long term (current) use of anticoagulants
CPT/HCPCS: 36415; 85610

== ENCOUNTER → 2018-02-05 | Outpatient (CLI) | payer MEDICARE, MEDICAID | LOC: CARD 09:24 | PROVIDERS: ATTEND Physician Assistant | DX: I65.29 Occlusion and stenosis of unspecified carotid artery (principal); I25.10 Atherosclerotic heart disease of native coronary artery without angina pectoris; I10 Essential (primary) hypertension; E78.2 Mixed hyperlipidemia; I08.3 Combined rheumatic disorders of mitral, aortic and tricuspid valves; Z95.2 Presence of prosthetic heart valve | CPT/HCPCS: 93306 ==

== ENCOUNTER → 2019-03-15 | Outpatient (CLI) | payer MEDICARE, MEDICAID ==
[~2019-03-15] MED LIST changes: +LINE600T15; +LINE600T15 PO; -LINE600T33; -LINE600T33 PO
--- NOTE | 2019-03-15 12:43 | Diagnostic Imaging Report ---
INDICATION: Pain in the left hand and wrist, fall. TIME OF EXAM: 10:41 a.m. FINDINGS: Three views of the left wrist were obtained. There is generalized demineralization. Vascular calcifications are present. The distal radius and ulna appear to be intact. The carpus is intact. No fractures are seen. There is chondrocalcinosis of the triangular fibrocartilage complex. IMPRESSION: Chronic changes. No acute bony abnormality is detected. Dictated by: Dictated on workstation # [id number]
--- NOTE | 2019-03-15 12:58 | Diagnostic Imaging Report ---
INDICATION: Pain in the left hand. TIME OF EXAM: 10:40 AM. TECHNIQUE: Three views of the left hand were obtained. FINDINGS: The metacarpals and phalanges are intact. No fractures are seen. Generalized demineralization and vascular calcifications are noted. There are some soft tissue calcifications at the 1st and 3rd MCP joints. IMPRESSION: Chronic changes. No acute bony abnormality is detected. Dictated by: Dictated on workstation # [id number]
== END ==
LOC: RAD 09:32
PROVIDERS: ATTEND Nurse Practitioner Family
DX: M79.642 Pain in left hand (principal); M25.532 Pain in left wrist; W19.XXXA Unspecified fall, initial encounter
CPT/HCPCS: 73110; 73130

== ENCOUNTER 2019-05-30 19:45 | Emergency (ER) | payer MEDICARE, MEDICAID ==
[~2019-05-30] VITALS: Ht 160 cm; Wt 89.1 kg
[~2019-05-30 19:45] MED LIST changes: -LINE600T15; -LINE600T15 PO; +LNZ600T; +LNZ600T PO
--- NOTE | 2019-05-30 20:09 | ED EENT ---
History of Present Illness General Stated Complaint: LEFT EYE SWOLLEN/NOSE BLEED DUE TO BLOWING NOSE Source: patient Exam Limitations: no limitations History of Present Illness Date Seen by Provider: May 30, 2019 Time Seen by Provider: 20:04 Initial Comments ER with reports of left eye swollen and right-sided nosebleed when he blew his nose this evening. He's been blowing his nose for about 2 weeks and he is on an antibiotic from primary care for it. He is also on warfarin for mechanical heart valve. No fevers no cough no shortness of breath Timing/Duration: abrupt Severity: moderate Prearrival Treatment: no prearrival treatment Associated Symptoms: No cough Allergies and Home Medications Allergies Coded Allergies: morphine (Verified Allergy, Unknown, 09/01/16) Home Medications Allopurinol 100 Mg Tablet, 100 MG PO DAILY, (Reported) Aspirin 81 Mg Tabec, 81 MG PO DAILY, (Reported) Carvedilol 6.25 Mg Tablet, 6.25 MG PO BID, (Reported) HOLD FOR SBP<110 Cephalexin 500 Mg Capsule, 500 MG PO TID Prescribed by: RAISSA OLSON on 09/14/16 020 Docusate Sodium 100 Mg Capsule, 100 MG PO Mo, (Reported) Famotidine 20 Mg Tablet, 20 MG PO BID Prescribed by: RAISSA OLSON on 09/14/16 020 Gabapentin 300 Mg Capsule, 300 MG PO TID, (Reported) Hydrocodone Bit/Acetaminophen 1 Each Tablet, 1 TAB PO Q6H PRN for PAIN-MODERATE, (Reported) Lactobacillus Acidophilus 1 Each Capsule, 1 EACH PO TID Prescribed by: OTTO ALVAREZ on 09/04/16923 Lisinopril 5 Mg Tablet, 5 MG PO 1700, (Reported) Magnesium Oxide 400 Mg Tablet, 400 MG PO BID, (Reported) Multivitamin 1 Each Tablet, 1 TAB PO DAILY, (Reported) Pantoprazole Sodium 40 Mg Tablet.dr, 40 MG PO DAILY, (Reported) Warfarin Sodium 2 Mg Tablet, 2 MG PO SuSa@1200, (Reported) Warfarin Sodium 2 Mg Tablet, 4 MG PO MoTuWeThFr@1200 HOLD UNTIL 09/07/16 - RESTART ROUTINE COUMADIN ON 09/07/16 Prescribed by: OTTO ALVAREZ on 09/04/16 09 Patient Home Medication List Home Medication List Reviewed: Yes Review of Systems Review of Systems Constitutional: see HPI; No chills, No fever Eyes: See HPI Ears: No Symptoms Reported Nose: see HPI, epistaxis Mouth: no symptoms reported Throat: no symptoms reported Respiratory: no symptoms reported Cardiovascular: no symptoms reported Musculoskeletal: no symptoms reported Skin: no symptoms reported Neurological: No Symptoms Reported Hematologic/Lymphatic: No Symptoms Reported Past Abpphqc-Mvvbcl-Itpxhu Hx Patient Social History Alcohol Beverage of Choice: Beer, Whiskey Drug of Choice: Wild [place] Type Used: Cigarettes Former Smoker, Quit: Mar 09, 2015 2nd Hand Smoke Exposure: Yes Recent Foreign Travel: No Contact w/Someone Who Travel: No Recent Hopitalizations: No Immunizations Up To Date Tetanus Booster (TDap): Unknown PED Vaccines UTD: No Seasonal Allergies Seasonal Allergies: Yes Past Medical History Surgeries: Yes (CABG,VALVE REPLACED,PLATE IN LEG,VASECTOMY,AKA) CABG, Coronary Stent, Open Heart Surgery, Valve Replacement, Vascular Surgery Respiratory: Yes COPD Currently Using CPAP: No Currently Using BIPAP: No Cardiac: Yes Chronic Edema/Swelling, Coronary Artery Disease, High Cholesterol, Hypertension, Peripheral Vascular, Valvular Heart Disease Neurological: Yes Neuropathy Reproductive Disorders: No Sexually Transmitted Disease: No HIV/AIDS: No Genitourinary: No Gastrointestinal: Yes Diverticulosis Musculoskeletal: Yes (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 manager terminal anticoag therapy.) Adverse Reaction/Blood Tranf: No Family Medical History No Pertinent Family Hx, Heart Disease, Hypertension, Psychiatric Problems Physical Exam Height, Weight, BMI Height: 5'3.00" Weight: 150lbs. 6.0oz. 68.587893mu; 29.5 BMI Method:Stated General Appearance: WD/WN, no apparent distress Eyes: right eye normal inspection, right eye PERRL, right eye EOMI; left eye other (there is a subconjunctival hematoma left side likely from blowing his nose, there is no hyphema and there is no right-sided subconjunctival hemorrhage. There is a small 1 cm area beneath the tongue lingual mucosa that has an ecchymotic appearance. No active bleeding in the nostril but there is dried blood on the right.) Neck: non-tender, full range of motion Respiratory: no respiratory distress, no accessory muscle use Gastrointestinal: normal bowel sounds, non tender, soft Neurologic/Psychiatric: alert, normal mood/affect, oriented x 3 Skin: normal color, warm/dry Progress/Results/Core Measures Results/Orders Lab Results Laboratory Tests Test 05/30/19 20:00 Range/Units White Blood Count 8.3 4.3-11.0 10^3/uL Red Blood Count 4.08 L 4.35-5.85 10^6/uL Hemoglobin 12.6 L 13.3-17.7 G/DL Hematocrit 37 L 40-54 % Mean Corpuscular Volume 91 80-99 FL Mean Corpuscular Hemoglobin 31 25-34 PG Mean Corpuscular Hemoglobin Concent 34 32-36 G/DL Red Cell Distribution Width 14.2 10.0-14.5 % Platelet Count 220 130-400 10^3/uL Mean Platelet Volume 10.5 H 7.4-10.4 FL Neutrophils (%) (Auto) 55 42-75 % Lymphocytes (%) (Auto) 30 12-44 % Monocytes (%) (Auto) 12 0-12 % Eosinophils (%) (Auto) 3 0-10 % Basophils (%) (Auto) 0 0-10 % Neutrophils # (Auto) 4.5 1.8-7.8 X 10^3 Lymphocytes # (Auto) 2.5 1.0-4.0 X 10^3 Monocytes # (Auto) 1.0 0.0-1.0 X 10^3 Eosinophils # (Auto) 0.2 0.0-0.3 10^3/uL Basophils # (Auto) 0.0 0.0-0.1 10^3/uL Prothrombin Time 89.4 *H 12.2-14.7 SEC INR Comment 10.7 *H 0.8-1.4 Sodium Level 134 L 135-145 MMOL/L Potassium Level 5.1 H 3.6-5.0 MMOL/L Chloride Level 102 98-107 MMOL/L Carbon Dioxide Level 23 21-32 MMOL/L Anion Gap 9 5-14 MMOL/L Blood Urea Nitrogen 25 H 7-18 MG/DL Creatinine 2.02 H 0.60-1.30 MG/DL Estimat Glomerular Filtration Rate 33 BUN/Creatinine Ratio 12 Glucose Level 86 70-105 MG/DL Calcium Level 9.0 8.5-10.1 MG/DL My Orders Orders - NAA CALDWELL APRN Rapid Strep A Screen (05/30/19 19:48) Influenza A And B Antigens (05/30/19 19:48) Cbc With Automated Diff (05/30/19 20:03) Protime With Inr (05/30/19 20:03) Basic Metabolic Panel (05/30/19 20:03) Phytonadione Oral Solution (Mephyton Ora (05/30/19 21:15) Departure Communication (Admissions) 2106-I discussed with him the need to hold the Coumadin dosing until he can be rechecked. I'll give him 5 mg of vitamin K here orally. He is not actively bleeding though he does have evidence of previous bleeding. Impression Primary Impression: Supratherapeutic INR Disposition: HOME, SELF-CARE Condition: Stable Departure-Patient Inst. Decision time for Depature: 21:08 Referrals: OTTO ALVAREZ MD (PCP/Family) Primary Care Physician Patient Instructions: What to Do When Your INR Is Too High Add. Discharge Instructions: 1. Call Dr. ALVAREZ's office tomorrow for further guidance on what to do. He will need to skip a dose or 2 of Coumadin. The vitamin K that we've given you here will have a maximum effect at about 24-[address] Alvarez will order a repeat INR in the upcoming few days. Copy Copies To 1: OTTO ALVAREZ MD, PETER J APRN May 30, 2019 20:09
[2019-05-30 20:10] LABS: BASOPHILS % (AUTO) 0 % (0-10); EOSINOPHILS # (AUTO) 0.2 10^3/uL (0.0-0.3); EOSINOPHILS % (AUTO) 3 % (0-10); HEMATOCRIT 37 % (40-54); HEMOGLOBIN 12.6 G/DL (13.3-17.7); LYMPHOCYTES # (AUTO) 2.5 X 10^3 (1.0-4.0); LYMPHOCYTES % (AUTO) 30 % (12-44); MEAN CORPUSCULAR HEMOGLOBIN 31 PG (25-34); MEAN CORPUSCULAR HGB CONC 34 G/DL (32-36); MEAN CORPUSCULAR VOLUME 91 FL (80-99); MEAN PLATELET VOLUME 10.5 FL (7.4-10.4); MONOCYTES % (AUTO) 12 % (0-12); NEUTROPHILS # (AUTO) 4.5 X 10^3 (1.8-7.8); NEUTROPHILS % (AUTO) 55 % (42-75); PLATELET COUNT 220 10^3/uL (130-400); RED CELL DISTRIBUTION WIDTH 14.2 % (10.0-14.5); WHITE BLOOD COUNT 8.3 10^3/uL (4.3-11.0)
[2019-05-30 20:23] LABS: CREATININE SERUM 2.02 MG/DL (0.60-1.30); POTASSIUM 5.1 MMOL/L (3.6-5.0)
[2019-05-30 21:03] LABS: INR 10.7 (0.8-1.4); PROTHROMBIN TIME PATIENT 89.4 SEC (12.2-14.7)
[2019-05-30] MEDS ORDERED: VITAMIN K 1 MG/ML ORAL SOLN 1 ML SYRINGE PO ONE (21:15)
[2019-05-30 21:43] VITALS: BP 130/96
== END 2019-05-30 21:47 | disposition home or self-care (01) ==
LOC: EDUNIT# 19:45 → ER 19:48
DX: R79.1 Abnormal coagulation profile (principal); I10 Essential (primary) hypertension; I25.10 Atherosclerotic heart disease of native coronary artery without angina pectoris; E11.40 Type 2 diabetes mellitus with diabetic neuropathy, unspecified; E11.51 Type 2 diabetes mellitus with diabetic peripheral angiopathy without gangrene; Z95.1 Presence of aortocoronary bypass graft; Z87.891 Personal history of nicotine dependence; Z95.2 Presence of prosthetic heart valve; Z79.82 Long term (current) use of aspirin; Z89.612 Acquired absence of left leg above knee; Z79.01 Long term (current) use of anticoagulants
CPT/HCPCS: 36415; 80048; 85025; 85610; 99283

== ENCOUNTER 2019-06-15 10:52 | Emergency (ER) | payer MEDICARE, MEDICAID ==
[~2019-06-15] VITALS: Ht 160 cm; Wt 133.6 kg
--- NOTE | 2019-06-15 11:04 | ED Lower Extremity ---
General Chief Complaint: Lower Extremity Stated Complaint: LEG PAIN Nursing Triage Note: SUDDEN ON SET OF RIGHT ABOVE THE KNEE PAIN. DENIES INJURY. Nursing Sepsis Screen: No Definite Risk Source: patient Exam Limitations: no limitations History of Present Illness Date Seen by Provider: Jun 15, 2019 Time Seen by Provider: 11:16 Initial Comments ER with sudden onset of tingling and pain in the right leg that began about 2 hours ago while sitting in his chair at home. No known injury. History of left leg amputation. On warfarin for mechanical heart valve. He does smoke cigarettes. Onset: just prior to arrival, yesterday Severity: moderate Pain/Injury Location: right other Method of Injury: unknown Allergies and Home Medications Allergies Coded Allergies: morphine (Verified Allergy, Unknown, 09/01/16) Home Medications Allopurinol 100 Mg Tablet, 100 MG PO DAILY, (Reported) Aspirin 81 Mg Tabec, 81 MG PO DAILY, (Reported) Carvedilol 6.25 Mg Tablet, 6.25 MG PO BID, (Reported) HOLD FOR SBP<110 Cephalexin 500 Mg Capsule, 500 MG PO TID Prescribed by: RAISSA OLSON on 09/14/16 020 Docusate Sodium 100 Mg Capsule, 100 MG PO Mo, (Reported) Famotidine 20 Mg Tablet, 20 MG PO BID Prescribed by: RAISSA OLSON on 09/14/16 020 Gabapentin 300 Mg Capsule, 300 MG PO TID, (Reported) Hydrocodone Bit/Acetaminophen 1 Each Tablet, 1 TAB PO Q6H PRN for PAIN-MODERATE, (Reported) Lactobacillus Acidophilus 1 Each Capsule, 1 EACH PO TID Prescribed by: OTTO MILLER on 09/04/16 0924 Lisinopril 5 Mg Tablet, 5 MG PO 1700, (Reported) Magnesium Oxide 400 Mg Tablet, 400 MG PO BID, (Reported) Multivitamin 1 Each Tablet, 1 TAB PO DAILY, (Reported) Pantoprazole Sodium 40 Mg Tablet.dr, 40 MG PO DAILY, (Reported) Warfarin Sodium 2 Mg Tablet, 2 MG PO SuSa@1200, (Reported) Warfarin Sodium 2 Mg Tablet, 4 MG PO MoTuWeThFr@1200 HOLD UNTIL 09/07/16 - RESTART ROUTINE COUMADIN ON 09/07/16 Prescribed by: OTTO MILLER on 09/04/16 0924 Patient Home Medication List Home Medication List Reviewed: Yes Review of Systems Constitutional: see HPI EENTM: see HPI Respiratory: no symptoms reported Cardiovascular: no symptoms reported Genitourinary: no symptoms reported Musculoskeletal: see HPI Skin: no symptoms reported Psychiatric/Neurological: No Symptoms Reported Past Obsmiba-Kjbdui-Wgbpsi Hx Patient Social History Alcohol Beverage of Choice: Whiskey Drug of Choice: Wild [place] Type Used: Cigarettes Former Smoker, Quit: Mar 09, 2015 2nd Hand Smoke Exposure: Yes Recent Foreign Travel: No Contact w/Someone Who Travel: No Recent Infectious Disease Expo: No Recent Hopitalizations: No Immunizations Up To Date Tetanus Booster (TDap): Less than 5yrs PED Vaccines UTD: Yes Seasonal Allergies Seasonal Allergies: Yes Past Medical History Surgeries: Yes (CABG,VALVE REPLACED,PLATE IN LEG,VASECTOMY,AKA) CABG, Coronary Stent, Open Heart Surgery, Valve Replacement, Vascular Surgery Respiratory: Yes COPD Currently Using CPAP: No Currently Using BIPAP: No Cardiac: Yes Chronic Edema/Swelling, Coronary Artery Disease, High Cholesterol, Hypertension, Peripheral Vascular, Valvular Heart Disease Neurological: Yes Neuropathy Reproductive Disorders: No Sexually Transmitted Disease: No HIV/AIDS: No Genitourinary: No Gastrointestinal: Yes Diverticulosis Musculoskeletal: Yes (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 shelter anticoag therapy.) Adverse Reaction/Blood Tranf: No Family Medical History No Pertinent Family Hx, Heart Disease, Hypertension, Psychiatric Problems Physical Exam Vital Signs Vital Signs - First Documented 06/15/19 06/15/19 10:52 11:43 Temp 36.4 Pulse 52 Resp 16 B/P (MAP) 127/62 (83) Pulse Ox 94 O2 Delivery Room Air O2 Flow Rate 2.00 Capillary Refill : Less Than 3 Seconds Height, Weight, BMI Height: 5'3.00" Weight: 150lbs. 6.0oz. 68.611586vx; 52.00 BMI Method:Stated General Appearance: WD/WN, no apparent distress Neck: non-tender, full range of motion Respiratory: no respiratory distress, no accessory muscle use Hips: bilateral hip non-tender, bilateral hip normal inspection, bilateral hip normal range of motion Legs: right leg other (right leg is cool to touch no palpable dorsalis pedis or posterior tibial pulse. There is capillary refill of about 3-4 seconds of the great toe.) Knees: bilateral knee non-tender, bilateral knee normal inspection, bilateral knee normal range of motion Ankles: bilateral ankle non-tender, bilateral ankle normal inspection, bilateral ankle normal range of motion Feet: bilateral foot non-tender, bilateral foot normal inspection, bilateral foot normal range of motion Neurologic/Psychiatric: alert, normal mood/affect, oriented x 3 Skin: normal color, warm/dry Progress/Results/Core Measures Results/Orders Lab Results Laboratory Tests Test 06/15/19 11:13 Range/Units White Blood Count 12.0 H 4.3-11.0 10^3/uL Red Blood Count 3.71 L 4.35-5.85 10^6/uL Hemoglobin 11.4 L 13.3-17.7 G/DL Hematocrit 35 L 40-54 % Mean Corpuscular Volume 93 80-99 FL Mean Corpuscular Hemoglobin 31 25-34 PG Mean Corpuscular Hemoglobin Concent 33 32-36 G/DL Red Cell Distribution Width 14.2 10.0-14.5 % Platelet Count 227 130-400 10^3/uL Mean Platelet Volume 10.0 7.4-10.4 FL Neutrophils (%) (Auto) 59 42-75 % Lymphocytes (%) (Auto) 27 12-44 % Monocytes (%) (Auto) 11 0-12 % Eosinophils (%) (Auto) 2 0-10 % Basophils (%) (Auto) 0 0-10 % Neutrophils # (Auto) 7.1 1.8-7.8 X 10^3 Lymphocytes # (Auto) 3.3 1.0-4.0 X 10^3 Monocytes # (Auto) 1.4 H 0.0-1.0 X 10^3 Eosinophils # (Auto) 0.3 0.0-0.3 10^3/uL Basophils # (Auto) 0.0 0.0-0.1 10^3/uL Prothrombin Time 16.3 H 12.2-14.7 SEC INR Comment 1.3 0.8-1.4 Activated Partial Thromboplast Time 28 24-35 SEC Sodium Level 140 135-145 MMOL/L Potassium Level 4.1 3.6-5.0 MMOL/L Chloride Level 103 98-107 MMOL/L Carbon Dioxide Level 28 21-32 MMOL/L Anion Gap 9 5-14 MMOL/L Blood Urea Nitrogen 21 H 7-18 MG/DL Creatinine 1.22 0.60-1.30 MG/DL Estimat Glomerular Filtration Rate 58 BUN/Creatinine Ratio 17 Glucose Level 95 70-105 MG/DL Calcium Level 9.1 8.5-10.1 MG/DL Corrected Calcium 9.3 8.5-10.1 MG/DL Total Bilirubin 0.2 0.1-1.0 MG/DL Aspartate Amino Transf (AST/SGOT) 19 5-34 U/L Alanine Aminotransferase (ALT/SGPT) 17 0-55 U/L Alkaline Phosphatase 88 40-136 U/L Total Protein 6.5 6.4-8.2 GM/DL Albumin 3.7 3.2-4.5 GM/DL My Orders Orders - NAA CALDWELL APRN Cbc With Automated Diff (06/15/19 11:01) Comprehensive Metabolic Panel (06/15/19 11:01) Protime With Inr (06/15/19 11:01) Ed Iv/Invasive Line Start (06/15/19 11:01) Hydromorphone Injection (Dilaudid Inject (06/15/19 11:15) Us Right Low Ext [id number] (06/15/19 11:01) Hydromorphone Injection (Dilaudid Inject (06/15/19 11:45) Heparin (Bolus Per Protocol) (Heparin (B (06/15/19 11:45) Heparin Drip [id number] Unit/500ml (Heparin (06/15/19 11:41) Initiate Heparin Full Protocol (06/15/19 11:41) Partial Thromboplastin Time (06/15/19 11:52) Medications Given in ED Current Medications Medications Dose Ordered Sig/Celestine Route Start Time Stop Time Status Last Admin Dose Admin Hydromorphone HCl 0.5 mg ONCE ONCE IV 06/15/19 11:15 06/15/19 11:16 DC 06/15/19 11:16 0.5 MG Hydromorphone HCl 1 mg ONCE ONCE IV 06/15/19 11:45 06/15/19 11:46 DC 06/15/19 11:38 1 MG Vital Signs/I&O 06/15/19 06/15/19 10:52 11:43 Temp 36.4 Pulse 52 Resp 16 B/P (MAP) 127/62 (83) Pulse Ox 94 88 O2 Delivery Room Air Nasal Cannula O2 Flow Rate 2.00 Blood Pressure Mean: 83 Departure Communication (Admissions) 1200-I discussed with Dr. Arndt, he does not do acute vascular occlusion inte rventions. I spoke with Dr. Solis (pts primary gunner mate) who reviewed records, states pt sees Dr Li in [place], would recommend transfer there. Heparin bolus + Drip going now full dose protocol. Minimal improvement in pain despite 1.5mg dilaudid. Did become hypoxic at 87% so 2L O2 was applied. 1235-discussed with Dr. Li who will accept the [facility], advised me that "of course he wont have a palpable pulse given the complexity of his disease". He feels this should be managed here via [facility] but would [facility] the [facility]. graphics edit technician reports minimal monophasic flow in the common femoral and no flow distal to that. Impression Primary Impression: Ischemic leg Disposition: ADMITTED INPATIENT Condition: Stable Departure-Patient Inst. Referrals: OTTO MILLER MD (PCP/Family) Primary Care Physician NAA CALDWELL APRN Jun 15, 2019 11:04
[2019-06-15] MEDS ORDERED: HYDROmorphone 2 MG/ML VIAL (DILAUDID) IV ONE ×2 (11:15→11:45)
[2019-06-15 11:18] LABS: BASOPHILS % (AUTO) 0 % (0-10); EOSINOPHILS # (AUTO) 0.3 10^3/uL (0.0-0.3); EOSINOPHILS % (AUTO) 2 % (0-10); HEMATOCRIT 35 % (40-54); HEMOGLOBIN 11.4 G/DL (13.3-17.7); LYMPHOCYTES # (AUTO) 3.3 X 10^3 (1.0-4.0); LYMPHOCYTES % (AUTO) 27 % (12-44); MEAN CORPUSCULAR HEMOGLOBIN 31 PG (25-34); MEAN CORPUSCULAR HGB CONC 33 G/DL (32-36); MEAN CORPUSCULAR VOLUME 93 FL (80-99); MONOCYTES # (AUTO) 1.4 X 10^3 (0.0-1.0); MONOCYTES % (AUTO) 11 % (0-12); NEUTROPHILS # (AUTO) 7.1 X 10^3 (1.8-7.8); NEUTROPHILS % (AUTO) 59 % (42-75); PLATELET COUNT 227 10^3/uL (130-400); RED CELL DISTRIBUTION WIDTH 14.2 % (10.0-14.5)
[2019-06-15 11:34] LABS: ALBUMIN 3.7 GM/DL (3.2-4.5)
--- NOTE | 2019-06-15 11:34 | NUR ---
PT REPORTS PAIN MEDS HAS NOT HELPED.
[2019-06-15 11:35] LABS: POTASSIUM 4.1 MMOL/L (3.6-5.0)
[2019-06-15 11:36] LABS: CALCIUM 9.1 MG/DL (8.5-10.1); INR 1.3 (0.8-1.4); PROTHROMBIN TIME PATIENT 16.3 SEC (12.2-14.7)
[2019-06-15 11:37] LABS: TOTAL PROTEIN 6.5 GM/DL (6.4-8.2)
[2019-06-15 11:39] LABS: BILIRUBIN,TOTAL 0.2 MG/DL (0.1-1.0)
[2019-06-15 11:41] LABS: CREATININE SERUM 1.22 MG/DL (0.60-1.30)
[2019-06-15] MEDS ORDERED: HEParin DRIP 25000 UNIT/500ML 500 ML IV SCH (11:41)
[2019-06-15] MEDS ORDERED: HEParin 1000 UNIT/ML (10ML VIAL) FOR BOLUS IV SCH (11:45)
--- NOTE | 2019-06-15 12:22 | NUR ---
NAA IN TALKING TO PT AT THIS TIME.
[2019-06-15 13:27] VITALS: BP 116/84
--- NOTE | 2019-06-15 15:10 | Diagnostic Imaging Report ---
INDICATION: Right leg pain, sudden onset this morning. EXAMINATION: Right lower extremity arterial Doppler and spectral color-flow imaging of the arterial cyst in the right lower extremity was performed. FINDINGS: The previous right lower extremity arterial Doppler exam performed on 05/09/2016 suggested a hemodynamically significant stenosis involving the proximal to mid superficial femoral artery. 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 There is a single collateral in the popliteal artery but there is no significant blood flow in the popliteal artery or in the anterior and posterior tibial arteries. A small amount of blood flow was seen in the common femoral and profunda arteries. IMPRESSION: There is marked reduction of the blood flow to the right lower extremity as the arterial system distal to the common femoral femoral artery appears to be nearly completely, if not completely, occluded. These results were called to Rolando Dietrich APRN, at the time of this exam. Dictated by: Dictated on workstation # [id number]
== END 2019-06-15 13:27 | disposition other institution (70) ==
LOC: EDUNIT# 10:52 → ER 10:54
DX: I99.8 Other disorder of circulatory system (principal); I10 Essential (primary) hypertension; I25.10 Atherosclerotic heart disease of native coronary artery without angina pectoris; E78.00 Pure hypercholesterolemia, unspecified; E11.40 Type 2 diabetes mellitus with diabetic neuropathy, unspecified; F17.210 Nicotine dependence, cigarettes, uncomplicated; Z79.01 Long term (current) use of anticoagulants; Z95.2 Presence of prosthetic heart valve; Z88.5 Allergy status to narcotic agent; Z79.82 Long term (current) use of aspirin; Z87.891 Personal history of nicotine dependence; Z77.22 Contact with and (suspected) exposure to environmental tobacco smoke (acute) (chronic); Z95.5 Presence of coronary angioplasty implant and graft; Z95.1 Presence of aortocoronary bypass graft; Z89.612 Acquired absence of left leg above knee; Z82.49 Family history of ischemic heart disease and other diseases of the circulatory system
CPT/HCPCS: 36415; 80053; 85025; 85610; 85730; 93926

== ENCOUNTER → 2019-07-14 | Outpatient (CLI) | payer MEDICARE, MEDICAID | LOC: CARD 08:31 | PROVIDERS: ATTEND Internal Medicine Cardiovascular Disease | DX: I08.0 Rheumatic disorders of both mitral and aortic valves (principal); I25.10 Atherosclerotic heart disease of native coronary artery without angina pectoris; I10 Essential (primary) hypertension; E78.2 Mixed hyperlipidemia; Z91.19 Patient's noncompliance with other medical treatment and regimen | CPT/HCPCS: 93306 ==

== ENCOUNTER → 2019-07-18 | Outpatient (CLI) | payer MEDICARE, MEDICAID ==
[~2019-07-18] VITALS: Ht 157 cm; Wt 88.0 kg
[~2019-07-18] MED LIST changes: +REGADENOSON 0.4 MG/5 ML SYR (LEXISCAN) IV ONE
[2019-07-18] MEDS: CATHETER FLUSH 10 ML SYR IV PRN ×2 (08:08→09:20)
[2019-07-18 09:19] VITALS: BP 143/68
--- NOTE | 2019-07-18 14:20 | STRESS TEST ---
DATE OF SERVICE: 07/18/2019 LEXISCAN MYOVIEW STRESS TEST REPORT REFERRING PHYSICIAN: Dr. Alvarez. Baseline heart rate is 59 and baseline blood pressure 133/71. Baseline EKG is sinus rhythm with left bundle branch block. In summary, the patient was injected with 10.24 mCi of technetium-99 Myoview and the resting images were obtained. Then, the patient received 0.4 mg of Lexiscan followed by 31.8 mCi of technetium-99 Myoview. Throughout the test, there were no EKG changes. The resting and stress images were reviewed and compared in the short axis, horizontal long axis and vertical long axis views. Review of the images showed decreased uptake involving the mid to apical anterolateral and inferolateral wall, which is fixed with no significant reversibility. SSS is 10, SDS 0 and TID value 1.07. On the gated images, the left ventricle appeared to be in normal size with diffuse left ventricular hypokinesia and calculated ejection fraction of 39%. CONCLUSION: 1. The patient tolerated the Lexiscan well. 2. Baseline left bundle branch block persisted throughout test. 3. Fixed defect involving the mid to apical anterolateral and inferolateral wall. 4. Diffuse left ventricular hypokinesia with a calculated ejection fraction of 39%. Job ID: [id number] DocumentID: [id number] Dictated Date: 07/18/2019 11:59:43 Automatic Profile Shaper Operator Date: 07/18/2019 14:19:47 Dictated By: MANUEL BASS MD
== END ==
LOC: CARD 07:46
PROVIDERS: ATTEND Internal Medicine Cardiovascular Disease
DX: I25.10 Atherosclerotic heart disease of native coronary artery without angina pectoris (principal); I10 Essential (primary) hypertension; E78.2 Mixed hyperlipidemia; Z91.19 Patient's noncompliance with other medical treatment and regimen; I51.89 Other ill-defined heart diseases; I51.0 Cardiac septal defect, acquired
CPT/HCPCS: 78452; 93017

== ENCOUNTER 2019-08-20 17:56 | Inpatient (IN) | payer MEDICARE, MEDICAID ==
[2019-08-20] VITALS (19 sets, daily range): BP systolic 83–116; BP diastolic 44–68
[~2019-08-20] VITALS: Ht 160 cm; Wt 68.2 kg
[~2019-08-20 17:56] MED LIST changes: -REGADENOSON 0.4 MG/5 ML SYR (LEXISCAN) IV ONE
--- OUTSIDE RECORDS SUMMARY | 2019-08-20 18:06 | XMS REPORT | CCD ---
Author Author Bony Alvarez Organization Selena Alvarez MD, [facility] Address [address] [place] [address] Phone Care Team Providers Care Specimen Technician Name Role Phone PP Unavailable CCM Unavailable Summary Purpose Interface Exchange Insurance Providers Payer name Policy type / Coverage type Covered democrat ID Effective Begin Date Effective End Date Formerly [facility] Commercial Insurance [id number] 2017 Unknown Family history Father Diagnosis Age At Onset Hyperlipidemia Unknown Coronary Artery Disease Unknown Stroke Unknown lung cancer Unknown Cancer Unknown Congestive heart failure Unknown Mother Diagnosis Age At Onset Hypertension Unknown kidney disease Unknown Cancer Unknown Stroke Unknown Hyperlipidemia Unknown Coronary Artery Disease Unknown Congestive heart failure Unknown Social History Social History Element Codes Description Effective Dates Tobacco history SNOMED CT: 053150698282269 Current some days smoker 09/21/2014 Allergies, Adverse Reactions, Alerts Substance Reaction Codes Entered Date Inactivated Date Status MORPHINE AND RELATED Unknown 09/21/2014 No Inactive Date Active SULFA(SULFONAMIDE AN TIBIOTICS) Unknown 01/21/2016 No Inactive Date Active Past Medical History Illness Codes Condition Status Onset Date Resolved Date Encounter for genera l adult medical examination with abnormal findings ICD-9: V70.0 ICD-10: Z00.01 Active 10/19/2018 Unknown USP (current) use of anticoagulants ICD-9: V58.61 ICD-10: Z79.01 Active 03/11/2018 Unknown Localized edema ICD-9: 782.3 ICD-10: R60.0 Active 09/17/2016 Unknown Varicose veins of ri ght lower extremity with pain ICD-9: 454.8 ICD-10: I83.811 Active 06/10/2018 Unknown 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 ICD-10: Z89.612 Active 08/14/2016 Unknown Chronic pain syndrome ICD-9: 338.4 ICD-10: G89.4 Active 07/20/2017 Unknown Essential (primary) hypertension ICD-9: 401.9 ICD-10: I10 Active 12/27/2014 Unknown Generalized anxiety disorder ICD-9: 300.00 ICD-10: F41.1 Active 04/21/2017 Unknown Major depressive dis order, single episode, moderate ICD-9: 296.22 ICD-10: F32.1 Active 04/21/2017 Unknown Cellulitis of left a xilla ICD-9: 682.3 ICD-10: L03.112 Active 08/28/2017 Unknown Cellulitis of right axilla ICD-9: 682.3 ICD-10: L03.111 Active 08/28/2017 Unknown Diarrhea, unspecified ICD-9: 787.91 ICD-10: R19.7 Active 04/21/2017 Unknown Nausea ICD-9: 787.02 ICD-10: R11.0 Active 01/27/2017 Unknown Other fecal abnormal ities ICD-9: 787.7 ICD-10: R19.5 Active 01/27/2017 Unknown Tobacco use ICD-9: 305.1 ICD-10: Z72.0 Active 01/27/2017 Unknown Chronic obstructive pulmonary disease, unspecified ICD-9: 496 ICD-10: J44.9 Active 11/25/2016 Unknown Rash and other nonsp ecific skin eruption ICD-9: 782.1 ICD-10: R21 Active 01/09/2016 Unknown Other sites of elmira diasis ICD-9: 112.89 ICD-10: B37.89 Active 10/15/2016 Unknown Urinary tract infect ion, site not specified ICD-9: 599.0 ICD-10: N39.0 Active 09/17/2016 Unknown Other specified bact erial intestinal infections ICD-9: 008.46 ICD-10: A04.8 Active 04/16/2016 Unknown Pain in right foot ICD- 9: 729.5 ICD-10: M79.671 Active 01/20/2016 Unknown Encounter for therap eutic drug level monitoring ICD-9: V58.83 ICD-10: Z51.81 Active 01/09/2016 Unknown Cutaneous abscess of left axilla ICD-9: 682.3 ICD-10: L02.412 Active 01/01/2016 Unknown Cellulitis of left toe ICD-9: 681.10 ICD-10: L03.032 Active 10/10/2015 Unknown Diverticulitis of in testine, part unspecified, without perforation or abscess with bleeding ICD-9: 562.13 ICD-10: K57.93 Active 10/10/2015 Unknown Encounter for follow -up examination after completed treatment for conditions other than malignant neoplasm ICD-9: V67.59 ICD-10: Z09 Active 10/10/2015 Unknown Other terminologist (cur rent) drug therapy ICD-9: V58.69 ICD-10: Z79.899 Active 10/10/2015 Unknown Other obesity due to excess calories ICD-9: 278.00 ICD-10: E66.09 Active 10/10/2015 Unknown Other acute osteomye litis, left ankle and foot ICD-9: 730.07 ICD-10: M86.172 Active 08/23/2015 Unknown Dermatitis, unspecified ICD-9: 692.9 ICD-10: L30.9 Active 12/27/2014 Unknown Peripheral vascular disease, unspecified ICD-9: 443.9 ICD-10: I73.9 Active 12/27/2014 Unknown Anticoagulated on Co umadin ICD-9: V58.83 Active Unknown ESSENTIAL HYPERTENSION ICD-9: 401.9 Active 09/20/2014 Unknown PAD (peripheral jorge luis ry disease) ICD-9: 443.9 Active 09/06 Unknown SCLERITIS ICD-9: 379.00 Active 10/01/2014 Unknow n Hypertension Unknown Active 09/21/2014 Unknow n COPD (chronic obstru ctive pulmonary disease) ICD-9: 496 Active 09/20/2014 Unknown GOUT ICD-9: 274.9 Active 09/20/2014 Unknow n Problems Condition Codes Effectiv e Dates Condition Status Encounter for genera l adult medical examination with abnormal findings ICD-9: V70.0 ICD-10: Z00.01 10/19/2018 Active 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 ICD-9: V58.61 ICD-10: Z79.01 03/11/2018 Active Localized edema ICD-9: 782.3 ICD-10: R60.0 09/17/2016 Active Varicose veins of ri ght lower extremity with pain ICD-9: 454.8 ICD-10: I83.811 06/10/2018 Active 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 ICD-10: Z89.612 08/14/2016 Active Chronic pain syndrome ICD-9: 338.4 ICD-10: G89.4 07/20/2017 Active Essential (primary) hypertension ICD-9: 401.9 ICD-10: I10 12/27/2014 Active Generalized anxiety disorder ICD-9: 300.00 ICD-10: F41.1 04/21/2017 Active Major depressive dis order, single episode, moderate ICD-9: 296.22 ICD-10: F32.1 04/21/2017 Active Cellulitis of left a xilla ICD-9: 682.3 ICD-10: L03.112 08/28/2017 Active Cellulitis of right axilla ICD-9: 682.3 ICD-10: L03.111 08/28/2017 Active Diarrhea, unspecified ICD-9: 787.91 ICD-10: R19.7 04/21/2017 Active Nausea ICD-9: 787.02 ICD-10: R11.0 01/27/2017 Active Other fecal abnormal ities ICD-9: 787.7 ICD-10: R19.5 01/27/2017 Active Tobacco use ICD-9: 305.1 ICD-10: Z72.0 01/27/2017 Active Chronic obstructive pulmonary disease, unspecified ICD-9: 496 ICD-10: J44.9 11/25/2016 Active Rash and other nonsp ecific skin eruption ICD-9: 782.1 ICD-10: R21 01/09/2016 Active Other sites of elmira diasis ICD-9: 112.89 ICD-10: B37.89 10/15/2016 Active Urinary tract infect ion, site not specified ICD-9: 599.0 ICD-10: N39.0 09/17/2016 Active Other specified bact erial intestinal infections ICD-9: 008.46 ICD-10: A04.8 04/16/2016 Active Pain in right foot ICD- 9: 729.5 ICD-10: M79.671 01/20/2016 Active Encounter for therap eutic drug level monitoring ICD-9: V58.83 ICD-10: Z51.81 01/09/2016 Active Cutaneous abscess of left axilla ICD-9: 682.3 ICD-10: L02.412 01/01/2016 Active Cellulitis of left toe ICD-9: 681.10 ICD-10: L03.032 10/10/2015 Active Diverticulitis of in testine, part unspecified, without perforation or abscess with bleeding ICD-9: 562.13 ICD-10: K57.93 10/10/2015 Active Encounter for follow -up examination after completed treatment for conditions other than malignant neoplasm ICD-9: V67.59 ICD-10: Z09 10/10/2015 Active Other senior care (cur rent) drug therapy ICD-9: V58.69 ICD-10: Z79.899 10/10/2015 Active Other obesity due to excess calories ICD-9: 278.00 ICD-10: E66.09 10/10/2015 Active Other acute osteomye litis, left ankle and foot ICD-9: 730.07 ICD-10: M86.172 08/23/2015 Active Dermatitis, unspecified ICD-9: 692.9 ICD-10: L30.9 12/27/2014 Active Peripheral vascular disease, unspecified ICD-9: 443.9 ICD-10: I73.9 12/27/2014 Active Anticoagulated on Co umadin ICD-9: V58.83 10/01/2014 Active ESSENTIAL HYPERTENSION ICD-9: 401.9 09/20/2014 Active PAD (peripheral jorg eluis ry disease) ICD-9: 443.9 09/20/2014 Active SCLERITIS ICD-9: 379.00 10/01/2014 Active Hypertension Unknown 09/21/2014 Active COPD (chronic obstru ctive pulmonary disease) ICD-9: 496 09/20/2014 Active GOUT ICD-9: 274.9 09/20/2014 Active Medications Medication Codes Instruc tions Start Date Stop Date Sta tus Fill Instructions hydrocodone 7.5 mg-a cetaminophen 325 mg tablet RxNorm: 531559 1 Tablet(s) PO QID as needed 11/18/2018 12/17/2018 Active Lexapro 20 mg tablet RxNorm: 827373 TAKE ONE TABLET BY MOUTH EVERY NIGHT AT BEDTIME 11/15/2018 02/12/2019 Active potassium chloride E R 20 mEq tablet,extended release RxNorm: 365542 Tablet(s) TAKE ONE TABLET BY MOUTH DAILY WHEN TAKING FUROSEMIDE NEEDED 10/19/2018 04/16/2019 Active pt would like a capsule instead of a tab let Lexapro 20 mg tablet RxNorm: 189242 1 Tablet(s) PO QHS 10/19/2018 11/14/2018 Inactive Pepcid 20 mg tablet RxNorm: 939255 TAKE ONE TABLET BY MOUTH TWICE A DAY 10/07/2018 01/04/2019 Ac tive gabapentin 300 mg ca psule RxNorm: 794757 TAKE ONE CAPSULE BY M [facility] THREE TIMES A DAY 10/07/2018 03/05/2019 Ac tive hydrocodone 7.5 mg-a cetaminophen 325 mg tablet RxNorm: 149018 1 Tablet(s) PO QID as needed 09/16/2018 10/15/2018 Inactive furosemide 40 mg tablet RxNorm: 934111 TAKE ONE TABLET BY MOUTH DAILY NEEDED FOR SWELLING 09/10/2018 02/06/2019 Active hydrocodone 7.5 mg-a cetaminophen 325 mg tablet RxNorm: 188410 1 Tablet(s) PO QID as needed 08/18/2018 09/15/2018 Inactive Lexapro 10 mg tablet RxNorm: 040283 TAKE ONE TABLET BY MOUTH AT BEDTIME 08/03/2018 10/18/2018 In active hydrocodone 7.5 mg-a cetaminophen 325 mg tablet RxNorm: 359126 1 Tablet(s) PO QID as needed 07/15/2018 08/13/2018 Inactive Keflex 500 mg capsule RxNorm: 729408 1 Capsule(s) PO TID 06/11/2018 06/17/2018 Inactive Pepcid 20 mg tablet RxNorm: 589453 TAKE ONE TABLET BY MOUTH TWICE A DAY 05/25/2018 09/21/2018 In active hydrocodone 7.5 mg-a cetaminophen 325 mg tablet RxNorm: 848661 1 Tablet(s) PO QID as needed 05/19/2018 06/17/2018 Inactive hydrocodone 7.5 mg-a cetaminophen 325 mg tablet RxNorm: 672727 1 Tablet(s) PO QID as needed 04/19/2018 05/18/2018 Inactive allopurinol 100 mg t ablet RxNorm: 892080 TAKE ONE TABLET BY MO [facility] DAILY 04/06/2018 03/01/2019 Ac tive hydrocodone 7.5 mg-a cetaminophen 325 mg tablet RxNorm: 122074 1 Tablet(s) PO QID as needed 03/11/2018 04/09/2018 Inactive potassium chloride E R 20 mEq tablet,extended release RxNorm: 018158 Tablet(s) TAKE ONE TABLET BY MOUTH DAILY WHEN TAKING FUROSEMIDE NEEDED 03/05/2018 08/31/2018 Inactive gabapentin 300 mg ca psule RxNorm: 076994 TAKE ONE CAPSULE BY M OUT[facility] THREE TIMES A DAY 03/04/2018 10/06/2018 Inactive hydrocodone 7.5 mg-a cetaminophen 325 mg tablet RxNorm: 151638 1 Tablet(s) PO QID as needed 02/18/2018 03/10/2018 Inactive hydrocodone 7.5 mg-a cetaminophen 325 mg tablet RxNorm: 020699 1 Tablet(s) PO QID as needed 01/19/2018 02/17/2018 Inactive hydrocodone 7.5 mg-a cetaminophen 325 mg tablet RxNorm: 202552 1 Tablet(s) PO QID as needed 12/16/2017 01/14/2018 Inactive Pepcid 20 mg tablet RxNorm: 980636 Tablet(s) TAKE ONE TABLET BY MOUTH TWICE A DAY 12/08/2017 05/06/2018 Inactive hydrocodone 7.5 mg-a cetaminophen 325 mg tablet RxNorm: 285030 1 Tablet(s) PO QID as needed 11/18/2017 12/15/2017 Inactive gabapentin 300 mg ca psule RxNorm: 716749 Capsule(s) TAKE ONE C APSULE BY MOUTH THREE TIMES A DAY 11/11/2017 03/03/2018 Inactive gabapentin 300 mg ca psule RxNorm: 642376 TAKE ONE CAPSULE BY M [facility] THREE TIMES A DAY 11/10/2017 11/10/2017 Inactive hydrocodone 7.5 mg-a cetaminophen 325 mg tablet RxNorm: 122384 1 Tablet(s) PO QID as needed 10/19/2017 11/17/2017 Inactive hydrocodone 7.5 mg-a cetaminophen 325 mg tablet RxNorm: 013371 1 Tablet(s) PO QID as needed 09/16/2017 10/15/2017 Inactive doxycycline hyclate 100 mg capsule RxNorm: 2668015 1 Capsule(s) PO BID 08/28/2017 09/06/2017 In active hydrocodone 7.5 mg-a cetaminophen 325 mg tablet RxNorm: 324410 1 Tablet(s) PO QID as needed 08/21/2017 09/15/2017 Inactive Lexapro 10 mg tablet RxNorm: 688193 TAKE ONE TABLET BY MOUTH AT BEDTIME 08/02/2017 07/27/2018 In active Zyrtec 10 mg tablet RxNorm: 4574070 1 Tablet(s) PO daily 07/20/2017 11/16/2017 Inactive hydrocodone 7.5 mg-a cetaminophen 325 mg tablet RxNorm: 127542 1 Tablet(s) PO QID as needed 07/20/2017 09/15/2017 Inactive furosemide 40 mg tablet RxNorm: 458858 Tablet(s) TAKE ONE TABLET BY MOUTH DAILY NEEDED FOR SWELLING 07/08/2017 01/03/2018 Inactive Pepcid 20 mg tablet RxNorm: 099561 TAKE ONE TABLET BY MOUTH TWICE A DAY 06/29/2017 11/25/2017 In active gabapentin 300 mg ca psule RxNorm: 235026 TAKE ONE CAPSULE BY M OUT THREE TIMES A DAY 06/29/2017 10/26/2017 Inactive hydrocodone 7.5 mg-a cetaminophen 325 mg tablet RxNorm: 334630 1 Tablet(s) PO QID as needed 06/18/2017 07/17/2017 Inactive hydrocodone 7.5 mg-a cetaminophen 325 mg tablet RxNorm: 847141 1 Tablet(s) PO QID as needed 05/18/2017 06/16/2017 Inactive hydrocodone 7.5 mg-a cetaminophen 325 mg tablet RxNorm: 562749 1 Tablet(s) PO QID as needed 04/21/2017 05/17/2017 Inactive hyoscyamine 0.125 mg sublingual tablet RxNorm: 5064653 1 Tablet(s) SL TID a s needed 04/21/2017 04/25/2017 In active Lexapro 10 mg tablet RxNorm: 587804 1 Tablet(s) PO QHS 04/21/2017 07/19/2017 Inactive Flagyl 500 mg tablet RxNorm: 600933 1 Tablet(s) PO TID 04/07/2017 04/16/2017 Inactive Lexapro 10 mg tablet RxNorm: 996969 1 Tablet(s) PO QHS 04/07/2017 04/20/2017 Inactive hydrocodone 7.5 mg-a cetaminophen 325 mg tablet RxNorm: 555481 1 Tablet(s) PO QID as needed 03/24/2017 04/20/2017 Inactive allopurinol 100 mg t ablet RxNorm: 856448 TAKE ONE TABLET BY [facility] DAILY 03/10/2017 03/04/2018 In active hydrocodone 7.5 mg-a cetaminophen 325 mg tablet RxNorm: 054897 1 Tablet(s) PO QID as needed 02/11/2017 03/12/2017 Inactive gabapentin 300 mg ca psule RxNorm: 365762 TAKE ONE CAPSULE BY [facility] THREE TIMES A DAY 02/02/2017 06/28/2017 Inactive Zofran ODT 4 mg disi ntegrating tablet RxNorm: 207601 1 Tablet(s) PO QID as needed nausea and vomitting 01/27/2017 No Stop Date Active hydrocodone 7.5 mg-a cetaminophen 325 mg tablet RxNorm: 397610 1 Tablet(s) PO QID as needed 01/13/2017 02/10/2017 Inactive potassium chloride E R 20 mEq tablet,extended release RxNorm: 339223 TAKE ONE TABLET BY MOUTH DAILY WHEN TAKING FUROSEMIDE NEEDED 01/12/2017 07/10/2017 Inactive furosemide 40 mg tablet RxNorm: 608894 TAKE ONE TABLET BY MOUTH DAILY NEEDED FOR SWELLING 01/12/2017 07/09/2017 Inactive promethazine 25 mg t ablet RxNorm: 507883 TAKE ONE TABLET BY [facility] THREE TIMES A DAY NEEDED FOR NAUSEA AND VOMITING 01/12/2017 01/31/2017 Inactive promethazine 25 mg t ablet RxNorm: 388612 1 Tablet(s) PO TID as needed nausea and vomitting 01/06/2017 01/11/2017 Inactive Lomotil 2.5 mg-0.025 mg tablet RxNorm: 0428850 1-2 Tablet(s) PO BID as needed diarrhea 01/06/2017 01/05/2017 Inactive Lomotil 2.5 mg-0.025 mg tablet RxNorm: 9002858 1-2 Tablet(s) PO BID as needed diarrhea 01/06/2017 01/07/2017 Inactive Pepcid 20 mg tablet RxNorm: 235771 1 Tablet(s) PO BID 12/19/2016 06/16/2017 Inactive Pepcid 20 mg tablet RxNorm: 246730 1 Tablet(s) PO BID 12/16/2016 12/18/2016 Inactive hydrocodone 7.5 mg-a cetaminophen 325 mg tablet RxNorm: 047958 1 Tablet(s) PO QID as needed 12/16/2016 01/12/2017 Inactive hydrocodone 7.5 mg-a cetaminophen 325 mg tablet RxNorm: 172081 1 Tablet(s) PO QID as needed 11/18/2016 12/15/2016 Inactive allopurinol 100 mg t ablet RxNorm: 082648 TAKE ONE TABLET BY [facility] DAILY 10/29/2016 02/25/2017 In active hydrocodone 7.5 mg-a cetaminophen 325 mg tablet RxNorm: 749255 1 Tablet(s) PO QID as needed 10/15/2016 11/13/2016 Inactive nystatin 100,000 uni t/gram topical cream RxNorm: 176216 1 Gram(s) TOP QID 10/15/2016 11/25/2016 In active nystatin 100,000 uni t/gram topical powder RxNorm: 933125 1 Gram(s) TOP TID TO GROIN OR AFFECTED AREA 10/14/2016 No Stop Date Active hydrocodone 7.5 mg-a cetaminophen 325 mg tablet RxNorm: 336914 1 Tablet(s) PO QID as needed 09/17/2016 10/14/2016 Inactive furosemide 40 mg tablet RxNorm: 894563 1 Tablet(s) PO daily as needed swelling 09/17/2016 01/11/2017 In active potassium chloride E R 20 mEq tablet,extended release RxNorm: 041932 1 Tablet(s) PO daily as needed take when taking a lasix pill 09/17/2016 01/11/2017 Inactive Levaquin 500 mg tablet RxNorm: 253387 1 Tablet(s) PO daily 09/17/2016 09/21/2016 Inactive hydrocodone 7.5 mg-a cetaminophen 325 mg tablet RxNorm: 199775 1 Tablet(s) PO QID as needed 08/14/2016 09/12/2016 Inactive cyclobenzaprine 5 mg tablet RxNorm: 923028 1 Tablet(s) PO TID as needed 07/25/2016 07/29/2016 In active cyclobenzaprine 5 mg tablet RxNorm: 205190 1 Tablet(s) PO TID as needed 07/25/2016 07/24/2016 In active hydrocodone 7.5 mg-a cetaminophen 325 mg tablet RxNorm: 603369 1 Tablet(s) PO QID as needed 07/21/2016 08/13/2016 Inactive warfarin 1 mg tablet RxNorm: 372769 TAKE ONE TABLET BY MOUTH EVERY EVENING 06/26/2016 08/04/2016 In active hydrocodone 7.5 mg-a cetaminophen 325 mg tablet RxNorm: 877324 1 Tablet(s) PO QID as needed 06/24/2016 07/20/2016 Inactive hydrocodone 5 mg-yanira taminophen 325 mg tablet RxNorm: 924980 1 Tablet(s) PO Q6 as needed for pain 06/09/2016 06/10/2016 Inactive warfarin 1 mg tablet RxNorm: 611619 TAKE ONE TABLET BY MOUTH EVERY EVENING 06/02/2016 06/21/2016 In active allopurinol 100 mg t ablet RxNorm: 079821 TAKE ONE TABLET BY [facility] DAILY 05/21/2016 10/17/2016 In active hydrocodone 7.5 mg-a cetaminophen 325 mg tablet RxNorm: 086526 1 Tablet(s) PO QID as needed 05/09/2016 06/07/2016 Inactive gabapentin 300 mg ca psule RxNorm: 972557 Capsule(s) TAKE ONE C APSULE BY MOUTH THREE TIMES A DAY 04/25/2016 11/09/2017 Inactive promethazine 25 mg t ablet RxNorm: 311918 TAKE ONE TABLET BY [facility] THREE TIMES A DAY NEEDED 2016 05/01/2016 Inactive warfarin 1 mg tablet RxNorm: 646606 TAKE ONE TABLET BY MOUTH EVERY EVENING 2016 05/31/2016 In active promethazine 25 mg t ablet RxNorm: 678395 1 Tablet(s) PO TID as needed 04/16/2016 04/21/2016 In active warfarin 1 mg tablet RxNorm: 918762 TAKE ONE TABLET BY MOUTH EVERY EVENING 02/13/2016 04/12/2016 In active magnesium oxide 400 mg tablet RxNorm: 245545 TAKE ONE TABLET BY MO [facility] TWICE A DAY 02/07/2016 01/01/2017 In active hydrocodone 5 mg-yanira taminophen 325 mg tablet RxNorm: 343225 1 Tablet(s) PO Q6 as needed for pain 01/21/2016 02/19/2016 Inactive warfarin 1 mg tablet RxNorm: 790032 TAKE ONE TABLET BY MOUTH EVERY EVENING 01/17/2016 02/05/2016 In active gabapentin 300 mg ca psule RxNorm: 892633 Capsule(s) TAKE ONE C APSULE BY MOUTH THREE TIMES A DAY 01/11/2016 04/24/2016 Inactive prednisone 10 mg tablet RxNorm: 862001 Tablet(s) PO UD 01/10/2016 03/08/2018 Inactive 60mg x2 days, then 50mg x2 days, then 40mg x2 days, 30mg x2 days, 20mg x2 days, 10mg x2days, 5mg every other day x 2 doses Kenalog 40 mg/mL cassius pension for injection RxNorm: 7234504 Milliliter(s) Inj 01/07/2016 01/07/2016 In active warfarin 1 mg tablet RxNorm: 911903 TAKE ONE TABLET BY MOUTH EVERY EVENING 01/01/2016 01/16/2016 In active hydrocodone 5 mg-yanira taminophen 325 mg tablet RxNorm: 513331 1 Tablet(s) PO Q6 as needed for pain 01/01/2016 01/15/2016 Inactive gabapentin 300 mg ca psule RxNorm: 857497 TAKE ONE CAPSULE BY M [facility] THREE TIMES A DAY 12/12/2015 01/10/2016 Inactive warfarin 5 mg tablet RxNorm: 735470 1 Tablet(s) PO daily 12/05/2015 No Stop Date Active warfarin 1 mg tablet RxNorm: 164538 TAKE ONE TABLET BY MOUTH EVERY EVENING 11/13/2015 12/22/2015 In active hydrocodone 5 mg-yanira taminophen 325 mg tablet RxNorm: 691618 1 Tablet(s) PO Q6 as needed for pain 10/26/2015 11/09/2015 Inactive allopurinol 100 mg t ablet RxNorm: 610133 1 Tablet(s) PO daily TAKE ONE TABLET BY MOUTH DAILY 10/18/2015 04/14/2016 Inactive hydrocodone 5 mg-yanira taminophen 325 mg tablet RxNorm: 041403 1 Tablet(s) PO Q6 as needed for pain 09/26/2015 10/10/2015 Inactive gabapentin 300 mg ca psule RxNorm: 761209 TAKE ONE CAPSULE BY M OUT[facility] THREE TIMES A DAY 09/14/2015 12/11/2015 Inactive warfarin 1 mg tablet RxNorm: 865357 1 Tablet(s) PO QPM 09/14/2015 11/12/2015 Inactive hydrocodone 5 mg-yanira taminophen 325 mg tablet RxNorm: 834202 1 Tablet(s) PO Q6 as needed for pain 09/12/2015 09/25/2015 Inactive hydrocodone 5 mg-yanira taminophen 325 mg tablet RxNorm: 939194 1 Tablet(s) PO Q6 as needed for pain 08/22/2015 09/05/2015 Inactive Bactrim DS 800 mg-16 0 mg tablet RxNorm: 974663 1 Tablet(s) PO BID 08/20/2015 09/02/2015 Inactive magnesium oxide 400 mg tablet RxNorm: 969195 TAKE ONE TABLET BY [facility] TWICE A DAY 01/20/2015 01/14/2016 In active gabapentin 300 mg ca psule RxNorm: 804690 TAKE ONE CAPSULE BY M [facility] THREE TIMES A DAY 01/20/2015 05/19/2015 Inactive magnesium oxide 400 mg tablet RxNorm: 970806 1 Tablet(s) PO BID 01/17/2015 05/16/2015 Inactive gabapentin 300 mg ca psule RxNorm: 116060 1 Capsule(s) PO TID 01/17/2015 05/16/2015 Inactive allopurinol 100 mg t ablet RxNorm: 431511 TAKE ONE TABLET BY MO [facility] DAILY 10/18/2014 10/12/2015 In active Kenalog 40 mg/mL cassius pension for injection RxNorm: 7170328 1 Milliliter(s) Inj 09/21/2014 09/21/2014 In active allopurinol 100 mg t ablet RxNorm: 024495 1 Tablet(s) PO daily 09/21/2014 10/17/2014 Inactive gabapentin 300 mg ca psule RxNorm: 312378 1 Capsule(s) PO TID 09/12/2014 01/09/2015 Inactive gabapentin 300 mg ca psule RxNorm: 674073 1 Capsule(s) PO TID 09/12/2014 09/11/2014 Inactive magnesium oxide 400 mg tablet RxNorm: 691511 1 Tablet(s) PO BID 09/12/2014 01/09/2015 Inactive magnesium oxide 400 mg tablet RxNorm: 376826 1 Tablet(s) PO BID 09/12/2014 09/11/2014 Inactive lisinopril 5 mg tablet RxNorm: 786730 1 Tablet(s) PO daily No Start Date Active atorvastatin oral RxNorm: 50545 oral No Start Date Active Coreg 6.25 mg tablet RxNorm: 534640 1 Tablet(s) PO BID No Start Date Active Combivent Respimat 2 0 mcg-100 mcg/actuation solution for inhalation RxNorm: 6721801 1 Puff(s) INH as needed No Start Date Active Ventolin Refill 90 m cg/actuation aerosol inhaler RxNorm: 376814 2 INH as needed No Start Date Active Centrum Silver Women oral RxNorm: [address] art Date Active aspirin 81 mg capsul e,delayed release RxNorm: 370467 1 Capsule(s) PO daily No Start Date Active nystatin 100,000 uni t/gram topical powder RxNorm: 389633 1 Gram(s) TOP TID No Start Date 10/13/2016 Inactive warfarin 1 mg tablet RxNorm: 793755 oral No Start Date 09/13/2015 Inactive Pepcid 20 mg tablet RxNorm: 988318 1 Tablet(s) PO BID No Start Date 12/15/2016 Inactive Protonix 40 mg table t,delayed release RxNorm: 820135 1 Tablet(s) PO daily No Start Date 09/16/2016 Inactive warfarin 5 mg tablet RxNorm: 389948 1 Tablet(s) PO daily 1.5 tabs on Thu No Start Date 12/04/2015 Inactive minocycline 50 mg ca psule RxNorm: 725581 1 Capsule(s) PO BID o rdered by Dr. Saravia No Start Date 03/08/2018 Inactive furosemide 40 mg tablet RxNorm: 607131 1 Tablet(s) PO daily No Start Date 09/16/2016 Inactive Medication Administered Medication Codes Instruc tions Start Date Status Kenalog 40 mg/mL suspension for injection RxNorm: 2788307 Milliliter 01/07/2016 No longer Active Kenalog 40 mg/mL suspension for injection RxNorm: 9945399 1Milliliter 09/21/2014 N o longer Active Immunizations No Immunization data Assessments Condition Codes Effectiv e Dates Encounter for general adult medical exam ination with abnormal findings ICD-10: Z00.01 ICD-9: V70.0 10/19/2018 Localized edema ICD-10: R60.0 ICD-9: 782.3 06/10/2018 Varicose veins of right lower extremity with pain ICD-10: I83.811 ICD-9: 454.8 06/10/2018 Chronic pain syndrome ICD-10: G89.4 ICD-9: 338.4 03/11/2018 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 ICD-10: Z79.01 ICD-9: V58.61 03/11/2018 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 ICD-9: V49.76 03/11/2018 Essential (primary) hypertension ICD -10: I10 ICD-9: 401.9 03/11/2018 Cellulitis of right axilla ICD-10: L 03.111 ICD-9: 682.3 08/28/2017 Cellulitis of left axilla ICD-10: L0 3.112 ICD-9: 682.3 08/28/2017 Generalized anxiety disorder ICD-10: F41.1 ICD-9: 300.00 07/20/2017 Major depressive disorder, single episode, moderate ICD-10: F32.1 ICD-9: 296.22 07/20/2017 Diarrhea, unspecified ICD-10: R19.7 ICD-9: 787.91 04/21/2017 Nausea ICD-10: R11.0 ICD-9: 787.02 04/07/2017 Other fecal abnormalities ICD-10: R1 9.5 ICD-9: 787.7 01/27/2017 Tobacco use ICD-10: Z72.0 ICD-9: 305.1 01/27/2017 Chronic obstructive pulmonary disease, unspecified ICD-10: J44.9 ICD-9: 496 11/25/2016 Rash and other nonspecific skin eruption ICD-10: R21 ICD-9: 782.1 11/25/2016 Other sites of candidiasis ICD-10: B 37.89 ICD-9: 112.89 10/15/2016 Urinary tract infection, site not specified ICD-10: N39.0 ICD-9: 599.0 09/17/2016 Other specified bacterial intestinal infections ICD-10: A04.8 ICD-9: 008.46 04/16/2016 Pain in right foot ICD-10: M79.671 ICD-9: 729.5 01/21/2016 Encounter for therapeutic drug level monitoring ICD-10: Z51.81 ICD-9: V58.83 01/10/2016 Cutaneous abscess of left axilla ICD -10: L02.412 ICD-9: 682.3 01/02/2016 Diverticulitis of intestine, part unspec ified, without perforation or abscess with bleeding ICD-10: K57.93 ICD-9: 562.13 10/11/2015 Encounter for follow-up examination afte r completed treatment for conditions other than malignant neoplasm ICD-10: Z09 ICD-9: V67.59 10/11/2015 Other terminologist (current) drug therapy ICD-10: Z79.899 ICD-9: V58.69 10/11/2015 Other obesity due to excess calories ICD-10: E66.09 ICD-9: 278.00 10/11/2015 Cellulitis of left toe ICD-10: L03.0 32 ICD-9: 681.10 10/11/2015 Other acute osteomyelitis, left ankle and foot ICD-10: M86.172 ICD-9: 730.07 08/24/2015 Dermatitis, unspecified ICD-10: L30. 9 ICD-9: 692.9 12/28/2014 Peripheral vascular disease, unspecified ICD-10: I73.9 ICD-9: 443.9 12/28/2014 Anticoagulated on Coumadin ICD-9: V58.83 10/31/2014 ESSENTIAL HYPERTENSION ICD-9: 401.9 10/31/2014 PAD (peripheral artery disease) ICD- 9: 443.9 10/31/2014 SCLERITIS ICD-9: 379.00 10/02/2014 GOUT ICD-9: 274.9 2014 COPD (chronic obstructive pulmonary disease) ICD-9: 496 09/21/2014 Reason For Visit Reason For Visit Effective Dates Notes Annual Medicare Wellness Exam 10/19/2018 edema 06/10/2018 medication follow up 03/11/2018 cellulitis 08/28/2017 medication follow up 07/20/2017 depression 04/21/2017 depression 04/07/2017 rash 01/27/2017 resolved rash 11/25/2016 improved rash 10/15/2016 fever 09/17/2016 gait abnormality 08/14/2016 abdominal pain 04/16/2016 foot pain 01/21/2016 wound follow up 01/10/2016 wound follow up 01/07/2016 wound follow up 01/02/2016 wound follow up 01/01/2016 skin lesion 12/25/2015 Hospital Follow Up 10/11/2015 toe pain due to infection 08/24/2015 toe pain due to infection 08/20/2015 blood pressure followup 12/28/2014 pain 10/31/2014 in leg, improved. pain 10/02/2014 in leg, improved. pain 09/21/2014 in leg Results Observation Observation Code Item Item Code Result Date HCV Antibody [id number] HEP C VIRUS AB 0.6 S/CORATIO 10/21/19 19 Pt Lxn3634 PT 43.8 seconds 10/19/2018 Pt Rfh0241 INR 4.7 10/19/2018 Pt Gqu7560 Low Intensity - 1.5-2.0 10/19/2018 Pt Exf5129 Mod intensity - 2.0-3.0 10/19/2018 Pt Aok5669 Hi intensity - 3.0-4.0 10/19/2018 Comp Metabolic Cxg154 NA 136 mEq/L 03/11/2018 Comp Metabolic Osb427 K 4.3 mEq/L 03/11/2018 Comp Metabolic Iox206 CL 101 mEq/L 03/11/2018 Comp Metabolic Ayu260 CO2 27.0 mEq/L 03/11/2018 Comp Metabolic Zco788 AN ION GAP 12 03/11/2018 Comp Metabolic Ehg265 GL UCOSE 87 mg/dL 03/11/2018 Comp Metabolic Zrj241 Cr eat 1.0 mg/dL 03/11/2018 Comp Metabolic Enn996 eG FR 79 ml/min/1.73m2 03/11 Comp Metabolic Hyn144 BUN 12 mg/dL 03/11/2018 Comp Metabolic Qny827 B/ C Ratio 12.1 Ratio 03/11/2018 Comp Metabolic Sic201 CA LCIUM 8.9 mg/dL 03/11/2018 Comp Metabolic Rrd999 AL K PHOS 106 U/L 03/11/2018 Comp Metabolic Fbb639 T(SGOT) 16 U/L 03/11/2018 Comp Metabolic Cad049 AL T(SGPT) 11 U/L 03/11/2018 Comp Metabolic Nmx519 BI LI T 0.4 mg/dL 03/11/2018 Comp Metabolic Qrx629 AL BUMIN 3.8 g/dL 03/11/2018 Comp Metabolic Wow501 TP RO 6.5 g/dL 03/11/2018 Comp Metabolic Cya988 GL OB 2.7 g/dL 03/11/2018 Comp Metabolic Nka071 A/ G Ratio 1.4 Ratio 03/11/2018 Comp Metabolic Jeq621 Os mo 271 mOsmo 03/11/2018 Cbc With Differential Ord2 WBC 10.11 K/ul 03/11/2018 Cbc With Differential Ord2 RBC 3.76 M/ul 03/11/2018 Cbc With Differential Ord2 HGB 11.2 g/dl 03/11/2018 Cbc With Differential Ord2 Neut% 56.2 % 03/11/2018 Cbc With Differential Ord2 HCT 34.0 % 03/11/2018 Cbc With Differential Ord2 MCV 90.4 fl 03/11/2018 Cbc With Differential Ord2 Lymph% 28.4 % 03/11/2018 Cbc With Differential Ord2 MCH 29.8 pg 03/11/2018 Cbc With Differential Ord2 Coal% 11.3 % 03/11/2018 Cbc With Differential Ord2 MCHC 32.9 pg 03/11/2018 Cbc With Differential Ord2 Eos% 3.9 % 03/11/2018 Cbc With Differential Ord2 PLT 205 K/ul 03/11/2018 Cbc With Differential Ord2 Baso% 0.2 % 03/11/2018 Cbc With Differential Ord2 RDW 15.0 % 03/11/2018 Cbc With Differential Ord2 Neut ABS# 5.69 K/ul 03/11/2018 Cbc With Differential Ord2 Lymph ABS# 2.87 K/ul 03/11/2018 Cbc With Differential Ord2 Coal ABS# 1.1 K/ul 03/11/2018 Cbc With Differential Ord2 Eos ABS# 0.4 K/ul 03/11/2018 Cbc With Differential Ord2 Baso ABS# 0.0 K/ul 03/11/2018 Pt Giq5392 PT 31.3 seconds 03/11/2018 Pt Kzh5377 INR 3.1 03/11/2018 Pt Gox7522 Low Intensity - 1.5-2.0 03/11/2018 Pt Kul5974 Mod intensity - 2.0-3.0 03/11/2018 Pt Pna5080 Hi intensity - 3.0-4.0 03/11/2018 Tsh Ord6 TSH (3rd IS) 2.01 uIU/mL 03/11/2018 Shiga Toxin 1 & 2 Eia Stool [id number] SHIGA TOXIN 1: NEGATIVE 04/12/2017 Shiga Toxin 1 & 2 Eia Stool [id number] SHIGA TOXIN 2: NEGATIVE 04/12/2017 Culture Stool [id number] STO OL CULTURE SEE NOTES 04/12/2017 Clostridium Diff Tox A/B Gli938 Cdiff Negative 04/09/2017 Pt Wed4704 PT 64.8 seconds 01/10/2016 Pt Qlk0221 INR 8.6 01/10/2016 Pt Qux1343 Low Intensity - 1.5-2.0 01/10/2016 Pt Qdw1367 Mod intensity - 2.0-3.0 01/10/2016 Pt Nsi2318 Hi intensity - 3.0-4.0 01/10/2016 Pt Wpq6390 PT 32.1 seconds 11/01/2014 Pt Tiu0459 INR 3.2 11/01/2014 Pt Xzp0212 Low Intensity - 1.5-2.0 11/01/2014 Pt Zwp2090 Mod intensity - 2.0-3.0 11/01/2014 Pt Hmq0552 Hi intensity - 3.0-4.0 11/01/2014 Pt Xea1044 PT 30.2 seconds 10/03/2014 Pt Mrt8147 INR 3.0 10/03/2014 Pt Tit0435 Low Intensity - 1.5-2.0 10/03/2014 Pt Nui7035 Mod intensity - 2.0-3.0 10/03/2014 Pt Vrc6955 Hi intensity - 3.0-4.0 10/03/2014 D-Dimer D-DIMER 475 NG/ML 09/25/2014 D-Dimer COMMENT 09/25/2014 Magnesium Ord90 Mag 1.1 Result Verified By Repeat Analysis mg/dL 09/22/2014 Pt Wbs0661 PT 32.0 seconds 09/22/2014 Pt Ejc0290 INR 3.2 09/22/2014 Pt Nve5809 Low Intensity - 1.5-2.0 09/22/2014 Pt Vpx1890 Mod intensity - 2.0-3.0 09/22/2014 Pt Oug7545 Hi intensity - 3.0-4.0 09/22/2014 Comp Metabolic Joq006 NA 137 mEq/L 09/22/2014 Comp Metabolic Vin731 K 4.2 mEq/L 09/22/2014 Comp Metabolic Jum956 CL 102 mEq/L 09/22/2014 Comp Metabolic Ooo265 CO2 25.0 mEq/L 09/22/2014 Comp Metabolic Rtq694 AN ION GAP 14 09/22/2014 Comp Metabolic Lko418 GL UCOSE 94 mg/dL 09/22/2014 Comp Metabolic Kfn338 Cr eat 0.8 mg/dL 09/22/2014 Comp Metabolic Aic578 eG FR 102 ml/min/1.73m2 09/06 Comp Metabolic Oic522 BUN 15 mg/dL 09/22/2014 Comp Metabolic Vpt366 B/ C Ratio 18.8 Ratio 09/22/2014 Comp Metabolic Sst493 CA LCIUM 9.4 mg/dL 09/22/2014 Comp Metabolic Gxt576 AL K PHOS 65 U/L 09/22/2014 Comp Metabolic Wji328 T(SGOT) 15 U/L 09/22/2014 Comp Metabolic Nlf644 AL T(SGPT) 8 U/L 09/22/2014 Comp Metabolic Fay462 BI LI T 0.4 mg/dL 09/22/2014 Comp Metabolic Hfa150 AL BUMIN 4.0 g/dL 09/22/2014 Comp Metabolic Ocj678 TP RO 6.8 g/dL 09/22/2014 Comp Metabolic Snq808 GL OB 2.8 g/dL 09/22/2014 Comp Metabolic Vgy618 A/ G Ratio 1.4 Ratio 09/22/2014 Comp Metabolic Tpc466 Os mo 274 mOsmo 09/22/2014 C-Reactive Protein Qnt Crqnt CRP 6.8 mg/dl 09/22/2014 Uric Acid Ord77 Uric A 5.9 mg/dL 09/22/2014 Cbc With Differential Ord2 WBC 10.0 K/uL 09/21/2014 Cbc With Differential Ord2 LYM 2.1 K/uL 09/21/2014 Cbc With Differential Ord2 LYM% 21.1 % 09/21/2014 Cbc With Differential Ord2 NEUT/GRAN 7.3 K/uL 09/21/2014 Cbc With Differential Ord2 NEUT/GRAN % 72.7 % 09/21/2014 Cbc With Differential Ord2 MID 0.6 K/uL 09/21/2014 Cbc With Differential Ord2 MID% 6.2 % 09/21/2014 Cbc With Differential Ord2 RBC 4.25 M/uL 09/21/2014 Cbc With Differential Ord2 HGB 12.4 g/dL 09/21/2014 Cbc With Differential Ord2 HCT 38.6 % 09/21/2014 Cbc With Differential Ord2 MCV 91 fL 09/21/2014 Cbc With Differential Ord2 MCH 29 pg 09/21/2014 Cbc With Differential Ord2 MCHC 32 g/dL 09/21/2014 Cbc With Differential Ord2 PLT 208 K/uL 09/21/2014 Cbc With Differential Ord2 RDW 13.9 % 09/21/2014 Review of Systems System Result Effective Dates Constitutional No recent illness 10/19/2018 Constitutional No chills 10/19/2018 Constitutional No diaphoresis 10/19/2018 Constitutional No fever 10/19/2018 Eyes No eye erythema Ears/Nose/Throat/Neck No nasal discharge 10/19/2018 Cardiovascular No chest pain/pressure 10/19/2018 Cardiovascular No dyspnea 10/19/2018 Respiratory No cough Respiratory No dyspnea 0 10/19/2018 Neurologic No alteration of consciousness 10/19/2018 Neurologic No mental status change 10/19/2018 Constitutional No recent illness 06/10/2018 Constitutional No chills 06/10/2018 Constitutional No diaphoresis 06/10/2018 Constitutional No fever 06/10/2018 Eyes No eye erythema 06/2018 Ears/Nose/Throat/Neck No nasal discharge 06/10/2018 Cardiovascular No chest pain/pressure 06/10/2018 Cardiovascular No dyspnea 06/10/2018 Cardiovascular edema 06/2018 Neurologic No alteration of consciousness 06/10/2018 Neurologic No mental status change 06/10/2018 Constitutional No recent illness 03/11/2018 Constitutional No chills 03/11/2018 Constitutional No diaphoresis 03/11/2018 Constitutional No fever 03/11/2018 Eyes No eye erythema 05/2018 Ears/Nose/Throat/Neck No nasal allergies 03/11/2018 Ears/Nose/Throat/Neck No nasal discharge 03/11/2018 Cardiovascular No chest pain/pressure 03/11/2018 Respiratory No cough 05/2018 Gastrointestinal No abdominal pain 03/11/2018 Musculoskeletal arthralgia(s) 03/11/2018 Neurologic No alteration of consciousness 03/11/2018 Neurologic No mental status change 03/11/2018 Psychiatric anxiety 01/0 05/2018 Psychiatric depression 0 03/11/2018 Constitutional No recent illness 08/28/2017 Constitutional No chills 08/28/2017 Constitutional No diaphoresis 08/28/2017 Constitutional No fever 08/28/2017 Eyes No eye erythema Ears/Nose/Throat/Neck No nasal discharge 08/28/2017 Ears/Nose/Throat/Neck No nasal allergies 08/28/2017 Cardiovascular No chest pain/pressure 08/28/2017 Cardiovascular No dyspnea 08/28/2017 Respiratory No dyspnea 0 08/28/2017 Respiratory No cough Gastrointestinal No abdominal pain 08/28/2017 Gastrointestinal No constipation 08/28/2017 Gastrointestinal No diarrhea 08/28/2017 Dermatologic sores 08/28 Neurologic No alteration of consciousness 08/28/2017 Neurologic No mental status change 08/28/2017 Constitutional No recent illness 07/20/2017 Constitutional No chills 07/20/2017 Constitutional No diaphoresis 07/20/2017 Constitutional No fever 07/20/2017 Eyes No eye erythema Ears/Nose/Throat/Neck No nasal allergies 07/20/2017 Ears/Nose/Throat/Neck No nasal discharge 07/20/2017 Cardiovascular No chest pain/pressure 07/20/2017 Respiratory No cough Gastrointestinal No abdominal pain 07/20/2017 Neurologic No alteration of consciousness 07/20/2017 Neurologic No mental status change 07/20/2017 Psychiatric anxiety 07/07 Psychiatric depression 0 07/20/2017 Musculoskeletal arthralgia(s) 07/20/2017 Constitutional No recent illness 04/21/2017 Constitutional No chills 04/21/2017 Constitutional No diaphoresis 04/21/2017 Constitutional No fever 04/21/2017 Eyes No eye erythema Ears/Nose/Throat/Neck No nasal discharge 04/21/2017 Ears/Nose/Throat/Neck No nasal allergies 04/21/2017 Cardiovascular No chest pain/pressure 04/21/2017 Respiratory No cough Gastrointestinal No abdominal pain 04/21/2017 Gastrointestinal diarrhea 04/21/2017 Gastrointestinal No constipation 04/21/2017 Gastrointestinal No vomiting 04/21/2017 Gastrointestinal No nausea 04/21/2017 Gastrointestinal No melena 04/21/2017 Gastrointestinal No hematochezia 04/21/2017 Neurologic No alteration of consciousness 04/21/2017 Neurologic No mental status change 04/21/2017 Psychiatric anxiety 04/09 Psychiatric depression 0 04/21/2017 Constitutional recent illness 04/07/2017 Constitutional No chills 04/07/2017 Constitutional No diaphoresis 04/07/2017 Constitutional No fever 04/07/2017 Eyes No eye erythema Ears/Nose/Throat/Neck No nasal discharge 04/07/2017 Cardiovascular No dyspnea 04/07/2017 Cardiovascular No chest pain/pressure 04/07/2017 Respiratory No cough Respiratory No chest congestion 04/07/2017 Gastrointestinal No abdominal pain 04/07/2017 Gastrointestinal No constipation 04/07/2017 Gastrointestinal diarrhea 04/07/2017 Gastrointestinal nausea 04/07/2017 Gastrointestinal No vomiting 04/07/2017 Neurologic No alteration of consciousness 04/07/2017 Neurologic No mental status change 04/07/2017 Psychiatric anxiety 03/11 Psychiatric depression 0 04/07/2017 Constitutional recent illness 01/27/2017 Constitutional No chills 01/27/2017 Constitutional No diaphoresis 01/27/2017 Constitutional No fever 01/27/2017 Eyes No blindness 2016 Ears/Nose/Throat/Neck No nasal allergies 01/27/2017 Ears/Nose/Throat/Neck No nasal discharge 01/27/2017 Ears/Nose/Throat/Neck No sore throat 01/27/2017 Cardiovascular No chest pain/pressure 01/27/2017 Cardiovascular No dyspnea 01/27/2017 Respiratory No chest congestion 01/27/2017 Respiratory No cough Respiratory No dyspnea 1 03/29/2016 Gastrointestinal No abdominal pain 01/27/2017 Gastrointestinal No constipation 01/27/2017 Gastrointestinal No diarrhea 01/27/2017 Gastrointestinal No nausea 01/27/2017 Gastrointestinal No vomiting 01/27/2017 Musculoskeletal swelling 01/27/2017 Dermatologic rash 2016 Neurologic No alteration of consciousness 01/27/2017 Neurologic No mental status change 01/27/2017 Psychiatric No anxiety 1 03/29/2016 Constitutional recent illness 11/25/2016 Constitutional No chills 11/25/2016 Constitutional No diaphoresis 11/25/2016 Constitutional No fever 11/25/2016 Eyes No blindness 2016 Ears/Nose/Throat/Neck No nasal allergies 11/25/2016 Ears/Nose/Throat/Neck No nasal discharge 11/25/2016 Ears/Nose/Throat/Neck No sore throat 11/25/2016 Cardiovascular No chest pain/pressure 11/25/2016 Cardiovascular No dyspnea 11/25/2016 Respiratory No chest congestion 11/25/2016 Respiratory No cough Respiratory No dyspnea 0 11/25/2016 Gastrointestinal No abdominal pain 11/25/2016 Gastrointestinal No constipation 11/25/2016 Gastrointestinal No diarrhea 11/25/2016 Gastrointestinal No nausea 11/25/2016 Gastrointestinal No vomiting 11/25/2016 Musculoskeletal swelling 11/25/2016 Dermatologic rash 2016 Neurologic No alteration of consciousness 11/25/2016 Neurologic No mental status change 11/25/2016 Psychiatric No anxiety 0 11/25/2016 Constitutional recent illness 10/15/2016 Constitutional No chills 10/15/2016 Constitutional No diaphoresis 10/15/2016 Constitutional No fever 10/15/2016 Eyes No blindness 2016 Ears/Nose/Throat/Neck No nasal allergies 10/15/2016 Ears/Nose/Throat/Neck No nasal discharge 10/15/2016 Ears/Nose/Throat/Neck No sore throat 10/15/2016 Cardiovascular No chest pain/pressure 10/15/2016 Cardiovascular No dyspnea 10/15/2016 Respiratory No chest congestion 10/15/2016 Respiratory No cough 11/2016 Respiratory No dyspnea 0 10/15/2016 Gastrointestinal No abdominal pain 10/15/2016 Gastrointestinal No constipation 10/15/2016 Gastrointestinal No diarrhea 10/15/2016 Gastrointestinal No nausea 10/15/2016 Gastrointestinal No vomiting 10/15/2016 Musculoskeletal swelling 10/15/2016 Dermatologic rash 2016 Neurologic No alteration of consciousness 10/15/2016 Neurologic No mental status change 10/15/2016 Constitutional recent illness 09/17/2016 Constitutional No chills 09/17/2016 Constitutional No diaphoresis 09/17/2016 Constitutional No fever 09/17/2016 Eyes No blindness 2016 Ears/Nose/Throat/Neck No nasal allergies 09/17/2016 Ears/Nose/Throat/Neck No nasal discharge 09/17/2016 Ears/Nose/Throat/Neck No sore throat 09/17/2016 Cardiovascular No chest pain/pressure 09/17/2016 Cardiovascular No dyspnea 09/17/2016 Respiratory No chest congestion 09/17/2016 Respiratory No cough 02/2017 Respiratory No dyspnea 0 09/17/2016 Gastrointestinal No abdominal pain 09/17/2016 Gastrointestinal No constipation 09/17/2016 Gastrointestinal No diarrhea 09/17/2016 Gastrointestinal No nausea 09/17/2016 Gastrointestinal No vomiting 09/17/2016 Dermatologic No rash 02/2017 Neurologic No alteration of consciousness 09/17/2016 Neurologic No mental status change 09/17/2016 Musculoskeletal swelling 09/17/2016 Constitutional No recent illness 08/14/2016 Constitutional No chills 08/14/2016 Constitutional No diaphoresis 08/14/2016 Constitutional No fever 08/14/2016 Eyes No eye erythema 10/2016 Ears/Nose/Throat/Neck No nasal allergies 08/14/2016 Ears/Nose/Throat/Neck No nasal discharge 08/14/2016 Ears/Nose/Throat/Neck No sore throat 08/14/2016 Cardiovascular No chest pain/pressure 08/14/2016 Cardiovascular No dyspnea 08/14/2016 Respiratory No cough 10/2016 Respiratory No dyspnea 0 08/14/2016 Respiratory No chest congestion 08/14/2016 Gastrointestinal No abdominal pain 08/14/2016 Gastrointestinal No constipation 08/14/2016 Gastrointestinal No diarrhea 08/14/2016 Gastrointestinal No vomiting 08/14/2016 Gastrointestinal No nausea 08/14/2016 Dermatologic No rash 10/2016 Neurologic No alteration of consciousness 08/14/2016 Neurologic No mental status change 08/14/2016 Neurologic gait abnormality 08/14/2016 Constitutional recent illness 04/16/2016 Constitutional No fever 04/16/2016 Constitutional No diaphoresis 04/16/2016 Eyes No eye erythema 10/2016 Ears/Nose/Throat/Neck No nasal allergies 04/16/2016 Ears/Nose/Throat/Neck No nasal discharge 04/16/2016 Cardiovascular No chest pain/pressure 04/16/2016 Cardiovascular No dyspnea 04/16/2016 Respiratory No cough 10/2016 Respiratory No dyspnea 0 04/16/2016 Gastrointestinal No abdominal pain 04/16/2016 Gastrointestinal anorexia 04/16/2016 Gastrointestinal No constipation 04/16/2016 Gastrointestinal diarrhea 04/16/2016 Gastrointestinal vomiting 04/16/2016 Gastrointestinal nausea 04/16/2016 Neurologic No alteration of consciousness 04/16/2016 Neurologic No mental status change 04/16/2016 Constitutional No recent illness 01/21/2016 Constitutional No chills 01/21/2016 Constitutional No diaphoresis 01/21/2016 Constitutional No fever 01/21/2016 Eyes No eye erythema Ears/Nose/Throat/Neck No nasal allergies 01/21/2016 Ears/Nose/Throat/Neck No nasal discharge 01/21/2016 Cardiovascular No chest pain/pressure 01/21/2016 Respiratory No cough Respiratory No dyspnea 1 03/22/2015 Gastrointestinal No abdominal pain 01/21/2016 Gastrointestinal No vomiting 01/21/2016 Gastrointestinal No nausea 01/21/2016 Musculoskeletal joint complaint 01/21/2016 Dermatologic No rash Neurologic No alteration of consciousness 01/21/2016 Neurologic No mental status change 01/21/2016 Constitutional No recent illness 01/10/2016 Ears/Nose/Throat/Neck No nasal allergies 01/10/2016 Ears/Nose/Throat/Neck No nasal discharge 01/10/2016 Cardiovascular No chest pain/pressure 01/10/2016 Respiratory No dyspnea 1 03/11/2015 Dermatologic rash 2015 Neurologic No alteration of consciousness 01/10/2016 Neurologic No mental status change 01/10/2016 Cardiovascular No dyspnea 01/10/2016 Respiratory No cough 05/2015 Constitutional No recent illness 01/07/2016 Ears/Nose/Throat/Neck No nasal discharge 01/07/2016 Ears/Nose/Throat/Neck No nasal allergies 01/07/2016 Cardiovascular No chest pain/pressure 01/07/2016 Respiratory No dyspnea 1 Dermatologic rash 2015 Neurologic No alteration of consciousness 01/07/2016 Neurologic No mental status change 01/07/2016 Constitutional No recent illness 12/25/2015 Constitutional No chills 12/25/2015 Constitutional No diaphoresis 12/25/2015 Constitutional No fever 12/25/2015 Cardiovascular No chest pain/pressure 12/25/2015 Cardiovascular No dyspnea 12/25/2015 Respiratory No cough Respiratory No dyspnea 1 Dermatologic sores 12/24 Dermatologic erythema Dermatologic drainage Neurologic No alteration of consciousness 12/25/2015 Neurologic No mental status change 12/25/2015 Constitutional No chills 10/11/2015 Constitutional No diaphoresis 10/11/2015 Constitutional No fatigue 10/11/2015 Constitutional No fever 10/11/2015 Constitutional No insomnia 10/11/2015 Constitutional No malaise 10/11/2015 Eyes No eye erythema 06/2015 Eyes No eye discharge Eyes No vision change Ears/Nose/Throat/Neck No nasal allergies 10/11/2015 Ears/Nose/Throat/Neck No nasal discharge 10/11/2015 Cardiovascular No chest pain/pressure 10/11/2015 Cardiovascular No dyspnea 10/11/2015 Respiratory No chest congestion 10/11/2015 Respiratory No cough 06/2015 Gastrointestinal No abdominal pain 10/11/2015 Gastrointestinal No constipation 10/11/2015 Gastrointestinal No diarrhea 10/11/2015 Dermatologic sores 10/10 Neurologic No alteration of consciousness 10/11/2015 Neurologic No mental status change 10/11/2015 Psychiatric No anxiety 0 10/11/2015 Psychiatric No depression 10/11/2015 Respiratory No dyspnea 0 10/11/2015 Gastrointestinal No vomiting 10/11/2015 Gastrointestinal No nausea 10/11/2015 Constitutional No chills 08/20/2015 Constitutional No diaphoresis 08/20/2015 Constitutional No fatigue 08/20/2015 Constitutional No fever 08/20/2015 Constitutional No insomnia 08/20/2015 Constitutional No malaise 08/20/2015 Eyes No eye discharge Eyes No vision change Ears/Nose/Throat/Neck No nasal allergies 08/20/2015 Ears/Nose/Throat/Neck No nasal discharge 08/20/2015 Cardiovascular No chest pain/pressure 08/20/2015 Cardiovascular No dyspnea 08/20/2015 Respiratory No chest congestion 08/20/2015 Respiratory No cough Gastrointestinal No abdominal pain 08/20/2015 Gastrointestinal No constipation 08/20/2015 Gastrointestinal No diarrhea 08/20/2015 Genitourinary/Nephrology No dysuria 08/20/2015 Psychiatric No anxiety 0 08/20/2015 Psychiatric No depression 08/20/2015 Eyes No eye erythema Dermatologic sores 08/19 Neurologic No alteration of consciousness 08/20/2015 Neurologic No mental status change 08/20/2015 Constitutional No recent illness 12/28/2014 Constitutional No anorexia 12/28/2014 Constitutional No night sweats 12/28/2014 Constitutional No chills 12/28/2014 Constitutional No diaphoresis 12/28/2014 Constitutional No fatigue 12/28/2014 Constitutional No fever 12/28/2014 Constitutional No insomnia 12/28/2014 Constitutional No malaise 12/28/2014 Constitutional No weight loss 12/28/2014 Constitutional No weight gain 12/28/2014 Eyes No eye pain 015 Eyes No eye trauma 12/28 Eyes No eyelid edema Eyes No eyelid erythema 12/28/2014 Eyes No eyelid pain 12/08 Eyes No photophobia 12/08 Eyes No vision change Ears/Nose/Throat/Neck No dizziness 12/28/2014 Ears/Nose/Throat/Neck No headache 12/28/2014 Ears/Nose/Throat/Neck No hearing loss 12/28/2014 Ears/Nose/Throat/Neck No hoarseness 12/28/2014 Ears/Nose/Throat/Neck No nasal allergies 12/28/2014 Ears/Nose/Throat/Neck No nasal discharge 12/28/2014 Cardiovascular No chest pain/pressure 12/28/2014 Cardiovascular No dyspnea 12/28/2014 Cardiovascular No edema 12/28/2014 Cardiovascular exercise intolerance 12/28/2014 Respiratory No chest congestion 12/28/2014 Respiratory No cigarette smoking 12/28/2014 Respiratory cough 2014 Respiratory dyspnea on exertion 12/28/2014 Gastrointestinal No abdominal pain 12/28/2014 Gastrointestinal No constipation 12/28/2014 Gastrointestinal No diarrhea 12/28/2014 Genitourinary/Nephrology No dysuria 12/28/2014 Genitourinary/Nephrology No hematuria 12/28/2014 Musculoskeletal No back pain 12/28/2014 Neurologic No headache 1 Psychiatric No anxiety 1 Psychiatric No depression 12/28/2014 Dermatologic sores 12/28 Dermatologic rash 2014 Constitutional No recent illness 10/31/2014 Constitutional No anorexia 10/31/2014 Constitutional No night sweats 10/31/2014 Constitutional No chills 10/31/2014 Constitutional No diaphoresis 10/31/2014 Constitutional No fatigue 10/31/2014 Constitutional No fever 10/31/2014 Constitutional No insomnia 10/31/2014 Constitutional No malaise 10/31/2014 Constitutional No weight loss 10/31/2014 Constitutional No weight gain 10/31/2014 Eyes eye erythema 2014 Eyes No eye pain 015 Eyes eye tearing 015 Eyes No eye trauma 10/31 Eyes No eyelid edema Eyes No eyelid erythema 10/31/2014 Eyes No eyelid pain 10/08 Eyes No photophobia 10/08 Eyes No vision change Ears/Nose/Throat/Neck No dizziness 10/31/2014 Ears/Nose/Throat/Neck No headache 10/31/2014 Ears/Nose/Throat/Neck No hearing loss 10/31/2014 Ears/Nose/Throat/Neck No hoarseness 10/31/2014 Ears/Nose/Throat/Neck No nasal allergies 10/31/2014 Ears/Nose/Throat/Neck No nasal discharge 10/31/2014 Cardiovascular No chest pain/pressure 10/31/2014 Cardiovascular No dyspnea 10/31/2014 Cardiovascular No edema 10/31/2014 Cardiovascular exercise intolerance 10/31/2014 Respiratory No chest congestion 10/31/2014 Respiratory No cigarette smoking 10/31/2014 Respiratory cough 2014 Respiratory dyspnea on exertion 10/31/2014 Gastrointestinal No abdominal pain 10/31/2014 Gastrointestinal No constipation 10/31/2014 Gastrointestinal No diarrhea 10/31/2014 Genitourinary/Nephrology No dysuria 10/31/2014 Genitourinary/Nephrology No hematuria 10/31/2014 Musculoskeletal No back pain 10/31/2014 Dermatologic No rash Dermatologic No sores Neurologic gait abnormality 10/31/2014 Neurologic No headache 0 10/31/2014 Psychiatric No anxiety 0 10/31/2014 Psychiatric No depression 10/31/2014 Constitutional No recent illness 10/02/2014 Constitutional No anorexia 10/02/2014 Constitutional No night sweats 10/02/2014 Constitutional No chills 10/02/2014 Constitutional No diaphoresis 10/02/2014 Constitutional No fatigue 10/02/2014 Constitutional No fever 10/02/2014 Constitutional No insomnia 10/02/2014 Eyes eye erythema 2014 Eyes No vision change Ears/Nose/Throat/Neck No dizziness 10/02/2014 Ears/Nose/Throat/Neck No headache 10/02/2014 Ears/Nose/Throat/Neck No hearing loss 10/02/2014 Ears/Nose/Throat/Neck No hoarseness 10/02/2014 Ears/Nose/Throat/Neck No nasal allergies 10/02/2014 Ears/Nose/Throat/Neck No nasal discharge 10/02/2014 Cardiovascular No chest pain/pressure 10/02/2014 Cardiovascular No dyspnea 10/02/2014 Cardiovascular No edema 10/02/2014 Cardiovascular exercise intolerance 10/02/2014 Respiratory No chest congestion 10/02/2014 Respiratory No cigarette smoking 10/02/2014 Respiratory cough 2014 Respiratory dyspnea on exertion 10/02/2014 Gastrointestinal No abdominal pain 10/02/2014 Gastrointestinal No constipation 10/02/2014 Gastrointestinal No diarrhea 10/02/2014 Genitourinary/Nephrology No dysuria 10/02/2014 Genitourinary/Nephrology No hematuria 10/02/2014 Musculoskeletal No back pain 10/02/2014 Dermatologic No rash Dermatologic No sores Neurologic gait abnormality 10/02/2014 Neurologic No headache 0 10/02/2014 Psychiatric No anxiety 0 10/02/2014 Psychiatric No depression 10/02/2014 Constitutional No malaise 10/02/2014 Constitutional No weight loss 10/02/2014 Constitutional No weight gain 10/02/2014 Eyes No photophobia 09/07 Eyes No eyelid pain 09/07 Eyes No eyelid erythema 10/02/2014 Eyes No eyelid edema Eyes No eye trauma 10/02 Eyes eye tearing 015 Eyes No eye pain 015 Constitutional fatigue 0 09/21/2014 Constitutional No diaphoresis 09/21/2014 Constitutional No chills 09/21/2014 Constitutional No anorexia 09/21/2014 Constitutional recent illness 09/21/2014 Constitutional fever Constitutional No insomnia 09/21/2014 Eyes eye erythema 2014 Eyes No vision change Ears/Nose/Throat/Neck No dizziness 09/21/2014 Ears/Nose/Throat/Neck No headache 09/21/2014 Ears/Nose/Throat/Neck No nasal discharge 09/21/2014 Ears/Nose/Throat/Neck No nasal allergies 09/21/2014 Ears/Nose/Throat/Neck No hoarseness 09/21/2014 Ears/Nose/Throat/Neck No hearing loss 09/21/2014 Cardiovascular No chest pain/pressure 09/21/2014 Cardiovascular No dyspnea 09/21/2014 Cardiovascular edema Cardiovascular exercise intolerance 09/21/2014 Respiratory No chest congestion 09/21/2014 Respiratory No cigarette smoking 09/21/2014 Gastrointestinal No abdominal pain 09/21/2014 Gastrointestinal No constipation 09/21/2014 Gastrointestinal No diarrhea 09/21/2014 Genitourinary/Nephrology No dysuria 09/21/2014 Genitourinary/Nephrology No hematuria 09/21/2014 Musculoskeletal No back pain 09/21/2014 Dermatologic rash 2014 Dermatologic No sores Neurologic No headache 0 09/21/2014 Neurologic gait abnormality 09/21/2014 Psychiatric No anxiety 0 09/21/2014 Psychiatric No depression 09/21/2014 Constitutional No night sweats 09/21/2014 Respiratory cough 2014 Respiratory dyspnea on exertion 09/21/2014 Musculoskeletal stiffness 09/21/2014 Musculoskeletal arthralgia(s) 09/21/2014 Musculoskeletal muscle weakness 09/21/2014 Musculoskeletal joint complaint 09/21/2014 Dermatologic mole change 09/21/2014 Dermatologic pigmentation change 09/21/2014 Physical Exam Exam Name System Name It em Name Status Result Effective Dates Notes Full Exam - General 1994 Constitutional general appearance Overall: well developed 10/19/2018 None Full Exam - General 1994 Constitutional general appearance Overall: in no acute distress 10/19/2018 None Full Exam - General 1994 Constitutional general appearance Overall: well nourished 10/19/2018 None Full Exam - General 1994 Eyes conjunctiva/eyelids Overall: conjunctiva clear 10/19/2018 None Full Exam - General 1994 Eyes conjunctiva/eyelids Overall: eyelids normal 10/19/2018 None Full Exam - General 1994 Ears/Nose/Throat lips/teeth/gingiva Overall: benign lips 10/19/2018 None Full Exam - General 1994 Respiratory respiratory effort/rhythm Overall: no retractions 10/19/2018 None Full Exam - General 1994 Respiratory respiratory effort/rhythm Overall: normal rate 10/19/2018 None Full Exam - General 1994 Musculoskeletal head and neck Overall: head atraumatic 10/19/2018 None Full Exam - General 1994 Neurologic cranial nerves Overall: crainial nerves 2 - 12 grossly intact 10/19/2018 None Full Exam - General 1994 Psychiatric orientation/consciousness Overall: oriented to person, place and time 10/19/2018 None Full Exam - General 1994 Psychiatric mood and affect Overall: normal mood and affect 10/19/2018 None Full Exam - General 1994 Psychiatric appearance Overall: well-groomed, good eye contact 10/19/2018 None Full Exam - General 1994 Constitutional general appearance Overall: well developed 06/10/2018 None Full Exam - General 1994 Constitutional general appearance Overall: in no acute distress 06/10/2018 None Full Exam - General 1994 Constitutional general appearance Overall: well nourished 06/10/2018 None Full Exam - General 1994 Eyes conjunctiva/eyelids Overall: eyelids normal 06/10/2018 None Full Exam - General 1994 Ears/Nose/Throat oral cavity/pharynx/larynx Overall: oral mucosa clear 06/10/2018 None Full Exam - General 1994 Ears/Nose/Throat lips/teeth/gingiva Overall: benign lips 06/10/2018 None Full Exam - General 1994 Respiratory respiratory effort/rhythm Overall: normal rate 06/10/2018 None Full Exam - General 1994 Respiratory respiratory effort/rhythm Overall: no retractions 06/10/2018 None Full Exam - General 1994 Respiratory auscultation Overall: breath sounds clear bilaterally 06/10/2018 None Full Exam - General 1994 Cardiovascular auscultation of heart Rate: regular rate 06/10/2018 None Full Exam - General 1994 Cardiovascular auscultation of heart Rhythm: regular rhythm 06/10/2018 None Full Exam - General 1994 Cardiovascular extremities Edema present: pitting 06/10/2018 None Full Exam - General 1994 Cardiovascular extremities Edema present: severity 1+ - 4+: 2+ 06/10/2018 None Full Exam - General 1994 Cardiovascular extremities Edema present: to leg 06/10/2018 right leg Full Exam - General 1994 Musculoskeletal head and neck Overall: head atraumatic 06/10/2018 None Full Exam - General 1994 Neurologic cranial nerves Overall: crainial nerves 2 - 12 grossly intact 06/10/2018 None Full Exam - General 1994 Psychiatric orientation/consciousness Overall: oriented to person, place and time 06/10/2018 None Full Exam - General 1994 Psychiatric mood and affect Overall: normal mood and affect 06/10/2018 None Full Exam - General 1994 Constitutional general appearance Overall: well developed 03/11/2018 None Full Exam - General 1994 Constitutional general appearance Overall: in no acute distress 03/11/2018 None Full Exam - General 1994 Constitutional general appearance Overall: well nourished 03/11/2018 None Full Exam - General 1994 Eyes conjunctiva/eyelids Overall: conjunctiva clear 03/11/2018 None Full Exam - General 1994 Eyes conjunctiva/eyelids Overall: cornea clear 03/11/2018 None Full Exam - General 1994 Eyes conjunctiva/eyelids Overall: eyelids normal 03/11/2018 None Full Exam - General 1994 Ears/Nose/Throat lips/teeth/gingiva Overall: benign lips 03/11/2018 None Full Exam - General 1995 Ears/Nose/Throat oral cavity/pharynx/larynx Overall: oral mucosa clear 03/11/2018 None Full Exam - General 1994 Respiratory auscultation Overall: breath sounds clear bilaterally 03/11/2018 None Full Exam - General 1994 Respiratory respiratory effort/rhythm Overall: no retractions 03/11/2018 None Full Exam - General 1994 Respiratory respiratory effort/rhythm Overall: normal rate 03/11/2018 None Full Exam - General 1994 Cardiovascular auscultation of heart Rate: regular rate 03/11/2018 None Full Exam - General 1994 Cardiovascular auscultation of heart Systolic murmur: holosystolic 03/11/2018 None Full Exam - General 1994 Musculoskeletal lower extremity Inspection - thigh: deformity 03/11/2018 amputation Full Exam - General 1994 Musculoskeletal head and neck Overall: head atraumatic 03/11/2018 None Full Exam - General 1994 Neurologic cranial nerves Overall: crainial nerves 2 - 12 grossly intact 03/11/2018 None Full Exam - General 1994 Psychiatric orientation/consciousness Overall: oriented to person, place and time 03/11/2018 None Full Exam - General 1994 Psychiatric mood and affect Overall: normal mood and affect 03/11/2018 None Full Exam - General 1994 Psychiatric appearance Overall: well-groomed, good eye contact 03/11/2018 None Full Exam - Dermatology Constitutional general appearance Overall: well nourished 08/28/2017 None Full Exam - Dermatology Constitutional general appearance Overall: well developed 08/28/2017 None Full Exam - Dermatology Constitutional general appearance Overall: in no acute distress 08/28/2017 None Full Exam - Dermatology Eyes conjunctiva/eyelids Overall: clear conjunctiva bilaterally 08/28/2017 None Full Exam - Dermatology Eyes conjunctiva/eyelids Overall: clear corneas 08/28/2017 None Full Exam - Dermatology Eyes conjunctiva/eyelids Overall: normal eyelids 08/28/2017 None Full Exam - Dermatology Ears/Nose/Throat lips/teeth/gingiva Overall: benign lips 08/28/2017 None Full Exam - Dermatology Respiratory respiratory effort/rhythm Overall: normal rate 08/28/2017 None Full Exam - Dermatology Respiratory respiratory effort/rhythm Overall: no retractions 08/28/2017 None Full Exam - Dermatology Musculoskeletal head and neck Overall: head atraumatic 08/28/2017 None Full Exam - Dermatology Integument insp & palp - chest/axillae Location: on the left axilla 08/28/2017 None Full Exam - Dermatology Integument insp & palp - chest/axillae Location: on the right axilla 08/28/2017 None Full Exam - Dermatology Integument insp & palp - chest/axillae Color: erythematous 08/28/2017 mild Full Exam - Dermatology Integument insp & palp - chest/axillae Consistency: tender 08/28/2017 None Full Exam - Dermatology Integument insp & palp - chest/axillae Consistency: indurated 08/28/2017 x 2 areas on the right an d x 3 areas on the left - all 1 cm and less Full Exam - Dermatology Psychiatric orientation Overall: oriented to person, place and time 08/28/2017 None Full Exam - Dermatology Psychiatric mood and affect Overall: normal mood and affect 08/28/2017 None Full Exam - General 1994 Constitutional general appearance Overall: well developed 07/20/2017 None Full Exam - General 1994 Constitutional general appearance Overall: in no acute distress 07/20/2017 None Full Exam - General 1994 Constitutional general appearance Overall: well nourished 07/20/2017 None Full Exam - General 1994 Eyes conjunctiva/eyelids Overall: conjunctiva clear 07/20/2017 None Full Exam - General 1994 Eyes conjunctiva/eyelids Overall: cornea clear 07/20/2017 None Full Exam - General 1994 Eyes conjunctiva/eyelids Overall: eyelids normal 07/20/2017 None Full Exam - General 1994 Ears/Nose/Throat lips/teeth/gingiva Overall: benign lips 07/20/2017 None Full Exam - General 1994 Ears/Nose/Throat oral cavity/pharynx/larynx Overall: oral mucosa clear 07/20/2017 None Full Exam - General 1994 Respiratory auscultation Overall: breath sounds clear bilaterally 07/20/2017 None Full Exam - General 1994 Respiratory respiratory effort/rhythm Overall: no retractions 07/20/2017 None Full Exam - General 1994 Respiratory respiratory effort/rhythm Overall: normal rate 07/20/2017 None Full Exam - General 1994 Cardiovascular auscultation of heart Rate: regular rate 07/20/2017 None Full Exam - General 1994 Musculoskeletal head and neck Overall: head atraumatic 07/20/2017 None Full Exam - General 1994 Neurologic cranial nerves Overall: crainial nerves 2 - 12 grossly intact 07/20/2017 None Full Exam - General 1994 Psychiatric orientation/consciousness Overall: oriented to person, place and time 07/20/2017 None Full Exam - General 1994 Psychiatric mood and affect Overall: normal mood and affect 07/20/2017 None Full Exam - General 1994 Psychiatric appearance Overall: well-groomed, good eye contact 07/20/2017 None Full Exam - General 1994 Cardiovascular auscultation of heart Systolic murmur: holosystolic 07/20/2017 None Full Exam - General 1994 Musculoskeletal lower extremity Inspection - thigh: deformity 07/20/2017 amputation Full Exam - General 1994 Constitutional general appearance Overall: well developed 04/21/2017 None Full Exam - General 1994 Constitutional general appearance Overall: in no acute distress 04/21/2017 None Full Exam - General 1994 Constitutional general appearance Overall: well nourished 04/21/2017 None Full Exam - General 1994 Eyes conjunctiva/eyelids Overall: conjunctiva clear 04/21/2017 None Full Exam - General 1994 Eyes conjunctiva/eyelids Overall: cornea clear 04/21/2017 None Full Exam - General 1994 Eyes conjunctiva/eyelids Overall: eyelids normal 04/21/2017 None Full Exam - General 1994 Ears/Nose/Throat lips/teeth/gingiva Overall: benign lips 04/21/2017 None Full Exam - General 1994 Ears/Nose/Throat oral cavity/pharynx/larynx Overall: oral mucosa clear 04/21/2017 None Full Exam - General 1994 Respiratory respiratory effort/rhythm Overall: no retractions 04/21/2017 None Full Exam - General 1994 Respiratory respiratory effort/rhythm Overall: normal rate 04/21/2017 None Full Exam - General 1994 Respiratory auscultation Overall: breath sounds clear bilaterally 04/21/2017 None Full Exam - General 1994 Cardiovascular auscultation of heart Rate: regular rate 04/21/2017 None Full Exam - General 1994 Abdomen abdominal exam Overall: normal bowel sounds 04/21/2017 None Full Exam - General 1994 Abdomen abdominal exam Overall: no tenderness 04/21/2017 None Full Exam - General 1994 Musculoskeletal head and neck Overall: head atraumatic 04/21/2017 None Full Exam - General 1994 Neurologic cranial nerves Overall: crainial nerves 2 - 12 grossly intact 04/21/2017 None Full Exam - General 1994 Psychiatric orientation/consciousness Overall: oriented to person, place and time 04/21/2017 None Full Exam - General 1994 Psychiatric mood and affect Overall: normal mood and affect 04/21/2017 None Full Exam - General 1994 Psychiatric appearance Overall: well-groomed, good eye contact 04/21/2017 None Full Exam - General 1994 Constitutional general appearance Overall: well developed 04/07/2017 None Full Exam - General 1994 Constitutional general appearance Overall: in no acute distress 04/07/2017 None Full Exam - General 1994 Constitutional general appearance Overall: well nourished 04/07/2017 None Full Exam - General 1994 Eyes conjunctiva/eyelids Overall: conjunctiva clear 04/07/2017 None Full Exam - General 1994 Eyes conjunctiva/eyelids Overall: cornea clear 04/07/2017 None Full Exam - General 1994 Eyes conjunctiva/eyelids Overall: eyelids normal 04/07/2017 None Full Exam - General 1994 Ears/Nose/Throat lips/teeth/gingiva Overall: benign lips 04/07/2017 None Full Exam - General 1994 Ears/Nose/Throat oral cavity/pharynx/larynx Overall: oral mucosa clear 04/07/2017 None Full Exam - General 1994 Respiratory auscultation Diffuse: diminished 04/07/2017 None Full Exam - General 1994 Respiratory auscultation Overall: breath sounds clear bilaterally 04/07/2017 None Full Exam - General 1994 Respiratory respiratory effort/rhythm Overall: no retractions 04/07/2017 None Full Exam - General 1994 Respiratory respiratory effort/rhythm Overall: normal rate 04/07/2017 None Full Exam - General 1994 Cardiovascular auscultation of heart Rate: regular rate 04/07/2017 None Full Exam - General 1994 Cardiovascular auscultation of heart Rhythm: regular rhythm 04/07/2017 None Full Exam - General 1994 Abdomen abdominal exam Overall: no tenderness 04/07/2017 None Full Exam - General 1994 Abdomen abdominal exam Overall: normal bowel sounds 04/07/2017 None Full Exam - General 1994 Musculoskeletal head and neck Overall: head atraumatic 04/07/2017 None Full Exam - General 1994 Neurologic cranial nerves Overall: crainial nerves 2 - 12 grossly intact 04/07/2017 None Full Exam - General 1994 Psychiatric orientation/consciousness Overall: oriented to person, place and time 04/07/2017 None Full Exam - General 1994 Psychiatric mood and affect Mood: flat 04/07/2017 None Full Exam - General 1994 Psychiatric mood and affect Mood: depressed 04/07/2017 None Full Exam - General 1994 Psychiatric mood and affect Mood: anxious 04/07/2017 None Full Exam - General 1994 Psychiatric mood and affect Affect: flat 04/07/2017 None Full Exam - General 1994 Constitutional general appearance Overall: well developed 01/27/2017 None Full Exam - General 1994 Constitutional general appearance Overall: in no acute distress 01/27/2017 None Full Exam - General 1994 Constitutional general appearance Overall: well nourished 01/27/2017 None Full Exam - General 1994 Constitutional general appearance Assistive Device: wheelchair 01/27/2017 None Full Exam - General 1994 Eyes conjunctiva/eyelids Overall: conjunctiva clear 01/27/2017 None Full Exam - General 1994 Eyes conjunctiva/eyelids Overall: eyelids normal 01/27/2017 None Full Exam - General 1994 Ears/Nose/Throat lips/teeth/gingiva Overall: benign lips 01/27/2017 None Full Exam - General 1994 Ears/Nose/Throat oral cavity/pharynx/larynx Overall: oral mucosa clear 01/27/2017 None Full Exam - General 1994 Ears/Nose/Throat oral cavity/pharynx/larynx Overall: oropharyngeal mucosa clear 01/27/2017 None Full Exam - General 1994 Respiratory auscultation Overall: breath sounds clear bilaterally 01/27/2017 None Full Exam - General 1994 Respiratory respiratory effort/rhythm Overall: no retractions 01/27/2017 None Full Exam - General 1994 Respiratory respiratory effort/rhythm Overall: normal rate 01/27/2017 None Full Exam - General 1994 Cardiovascular extremities Edema present: pitting 01/27/2017 right lower leg to knee 2 + - and left stump 1+ Full Exam - General 1994 Cardiovascular auscultation of heart Systolic murmur: holosystolic 01/27/2017 None Full Exam - General 1994 Musculoskeletal lower extremity Inspection - thigh: deformity 01/27/2017 amputation with wound healing, small punctate area with dress in place Full Exam - General 1994 Musculoskeletal head and neck Overall: head atraumatic 01/27/2017 None Full Exam - General 1994 Integument inspection of skin Dermatitis: erythema 01/27/2017 in groin bilaterally and over scrotum Full Exam - General 1994 Psychiatric orientation/consciousness Overall: oriented to person, place and time 01/27/2017 None Full Exam - General 1994 Psychiatric mood and affect Overall: normal mood and affect 01/27/2017 None Full Exam - General 1994 Abdomen abdominal exam Overall: no tenderness 01/27/2017 None Full Exam - General 1994 Abdomen abdominal exam Overall: normal bowel sounds 01/27/2017 None Full Exam - General 1994 Abdomen liver and spleen exam Overall: no hepatosplenomegaly 01/27/2017 None Full Exam - General 1994 Abdomen liver and spleen exam Overall: no stigmata of chronic liver disease 01/27/2017 None Full Exam - General 1994 Lymphatic neck nodes Overall: anterior cervical chain benign 01/27/2017 None Full Exam - General 1994 Lymphatic neck nodes Overall: posterior cervical chain benign 01/27/2017 None Full Exam - General 1994 Constitutional general appearance Overall: well developed 11/25/2016 None Full Exam - General 1994 Constitutional general appearance Overall: in no acute distress 11/25/2016 None Full Exam - General 1994 Constitutional general appearance Overall: well nourished 11/25/2016 None Full Exam - General 1994 Constitutional general appearance Assistive Device: wheelchair 11/25/2016 None Full Exam - General 1994 Eyes conjunctiva/eyelids Overall: conjunctiva clear 11/25/2016 None Full Exam - General 1994 Eyes conjunctiva/eyelids Overall: eyelids normal 11/25/2016 None Full Exam - General 1994 Ears/Nose/Throat lips/teeth/gingiva Overall: benign lips 11/25/2016 None Full Exam - General 1994 Ears/Nose/Throat oral cavity/pharynx/larynx Overall: oral mucosa clear 11/25/2016 None Full Exam - General 1994 Ears/Nose/Throat oral cavity/pharynx/larynx Overall: oropharyngeal mucosa clear 11/25/2016 None Full Exam - General 1994 Respiratory auscultation Overall: breath sounds clear bilaterally 11/25/2016 None Full Exam - General 1994 Respiratory respiratory effort/rhythm Overall: no retractions 11/25/2016 None Full Exam - General 1994 Respiratory respiratory effort/rhythm Overall: normal rate 11/25/2016 None Full Exam - General 1994 Cardiovascular extremities Edema present: pitting 11/25/2016 right lower leg to knee 2 + - and left stump 1+ Full Exam - General 1994 Cardiovascular auscultation of heart Systolic murmur: holosystolic 11/25/2016 None Full Exam - General 1994 Musculoskeletal lower extremity Inspection - thigh: deformity 11/25/2016 amputation with wound healing, small punctate area with dress in place Full Exam - General 1994 Musculoskeletal head and neck Overall: head atraumatic 11/25/2016 None Full Exam - General 1994 Integument inspection of skin Dermatitis: erythema 11/25/2016 in groin bilaterally and over scrotum Full Exam - General 1994 Psychiatric orientation/consciousness Overall: oriented to person, place and time 11/25/2016 None Full Exam - General 1994 Psychiatric mood and affect Overall: normal mood and affect 11/25/2016 None Full Exam - General 1995 Constitutional general appearance Overall: well developed 10/15/2016 None Full Exam - General 1994 Constitutional general appearance Overall: in no acute distress 10/15/2016 None Full Exam - General 1995 Constitutional general appearance Overall: well nourished 10/15/2016 None Full Exam - General 1995 Constitutional general appearance Assistive Device: wheelchair 10/15/2016 None Full Exam - General 1994 Eyes conjunctiva/eyelids Overall: conjunctiva clear 10/15/2016 None Full Exam - General 1994 Eyes conjunctiva/eyelids Overall: eyelids normal 10/15/2016 None Full Exam - General 1994 Ears/Nose/Throat lips/teeth/gingiva Overall: benign lips 10/15/2016 None Full Exam - General 1994 Ears/Nose/Throat oral cavity/pharynx/larynx Overall: oral mucosa clear 10/15/2016 None Full Exam - General 1995 Ears/Nose/Throat oral cavity/pharynx/larynx Overall: oropharyngeal mucosa clear 10/15/2016 None Full Exam - General 1994 Respiratory auscultation Overall: breath sounds clear bilaterally 10/15/2016 None Full Exam - General 1994 Respiratory respiratory effort/rhythm Overall: no retractions 10/15/2016 None Full Exam - General 1994 Respiratory respiratory effort/rhythm Overall: normal rate 10/15/2016 None Full Exam - General 1994 Cardiovascular extremities Edema present: pitting 10/15/2016 right lower leg to knee 2 + - and left stump 1+ Full Exam - General 1994 Cardiovascular auscultation of heart Systolic murmur: holosystolic 10/15/2016 None Full Exam - General 1994 Musculoskeletal lower extremity Inspection - thigh: normal appearance 10/15/2016 Left above the knee amputation Full Exam - General 1994 Musculoskeletal head and neck Overall: head atraumatic 10/15/2016 None Full Exam - General 1994 Psychiatric orientation/consciousness Overall: oriented to person, place and time 10/15/2016 None Full Exam - General 1994 Psychiatric mood and affect Overall: normal mood and affect 10/15/2016 None Full Exam - General 1994 Integument inspection of skin Dermatitis: erythema 10/15/2016 in groin bilaterally and over scrotum Full Exam - General 1994 Musculoskeletal lower extremity Inspection - thigh: deformity 10/15/2016 amputation with wound healing, small punctate area with dress in place Full Exam - General 1994 Constitutional general appearance Overall: well developed 09/17/2016 None Full Exam - General 1994 Constitutional general appearance Overall: in no acute distress 09/17/2016 None Full Exam - General 1994 Constitutional general appearance Overall: well nourished 09/17/2016 None Full Exam - General 1994 Constitutional general appearance Assistive Device: wheelchair 09/17/2016 None Full Exam - General 1994 Eyes conjunctiva/eyelids Overall: conjunctiva clear 09/17/2016 None Full Exam - General 1994 Eyes conjunctiva/eyelids Overall: eyelids normal 09/17/2016 None Full Exam - General 1994 Ears/Nose/Throat otoscopic exam Overall: external auditory canals clear 09/17/2016 None Full Exam - General 1994 Ears/Nose/Throat otoscopic exam Overall: tympanic membranes clear 09/17/2016 None Full Exam - General 1994 Ears/Nose/Throat lips/teeth/gingiva Overall: benign lips 09/17/2016 None Full Exam - General 1994 Ears/Nose/Throat oral cavity/pharynx/larynx Overall: oral mucosa clear 09/17/2016 None Full Exam - General 1994 Ears/Nose/Throat oral cavity/pharynx/larynx Overall: oropharyngeal mucosa clear 09/17/2016 None Full Exam - General 1994 Respiratory auscultation Overall: breath sounds clear bilaterally 09/17/2016 None Full Exam - General 1994 Respiratory respiratory effort/rhythm Overall: no retractions 09/17/2016 None Full Exam - General 1994 Respiratory respiratory effort/rhythm Overall: normal rate 09/17/2016 None Full Exam - General 1994 Cardiovascular auscultation of heart Systolic murmur: holosystolic 09/17/2016 None Full Exam - General 1994 Abdomen abdominal exam Overall: no tenderness 09/17/2016 None Full Exam - General 1994 Abdomen abdominal exam Overall: normal bowel sounds 09/17/2016 None Full Exam - General 1994 Lymphatic neck nodes Overall: anterior cervical chain benign 09/17/2016 None Full Exam - General 1994 Lymphatic neck nodes Overall: posterior cervical chain benign 09/17/2016 None Full Exam - General 1994 Musculoskeletal lower extremity Inspection - thigh: normal appearance 09/17/2016 Left above the knee amputation Full Exam - General 1994 Musculoskeletal head and neck Overall: head atraumatic 09/17/2016 None Full Exam - General 1994 Neurologic cranial nerves Overall: crainial nerves 2 - 12 grossly intact 09/17/2016 None Full Exam - General 1994 Psychiatric orientation/consciousness Overall: oriented to person, place and time 09/17/2016 None Full Exam - General 1994 Psychiatric mood and affect Overall: normal mood and affect 09/17/2016 None Full Exam - General 1994 Cardiovascular extremities Edema present: pitting 09/17/2016 right lower leg to knee 2 + - and left stump 1+ Full Exam - General 1994 Constitutional general appearance Overall: well developed 08/14/2016 None Full Exam - General 1994 Constitutional general appearance Overall: in no acute distress 08/14/2016 None Full Exam - General 1994 Constitutional general appearance Overall: well nourished 08/14/2016 None Full Exam - General 1994 Eyes conjunctiva/eyelids Overall: conjunctiva clear 08/14/2016 None Full Exam - General 1994 Eyes conjunctiva/eyelids Overall: eyelids normal 08/14/2016 None Full Exam - General 1994 Ears/Nose/Throat lips/teeth/gingiva Overall: benign lips 08/14/2016 None Full Exam - General 1994 Ears/Nose/Throat oral cavity/pharynx/larynx Overall: oral mucosa clear 08/14/2016 None Full Exam - General 1994 Ears/Nose/Throat oral cavity/pharynx/larynx Overall: oropharyngeal mucosa clear 08/14/2016 None Full Exam - General 1994 Respiratory respiratory effort/rhythm Overall: no retractions 08/14/2016 None Full Exam - General 1994 Respiratory respiratory effort/rhythm Overall: normal rate 08/14/2016 None Full Exam - General 1994 Respiratory auscultation Overall: breath sounds clear bilaterally 08/14/2016 None Full Exam - General 1994 Ears/Nose/Throat otoscopic exam Overall: external auditory canals clear 08/14/2016 None Full Exam - General 1994 Ears/Nose/Throat otoscopic exam Overall: tympanic membranes clear 08/14/2016 None Full Exam - General 1994 Cardiovascular auscultation of heart Systolic murmur: holosystolic 08/14/2016 None Full Exam - General 1994 Abdomen abdominal exam Overall: no tenderness 08/14/2016 None Full Exam - General 1994 Abdomen abdominal exam Overall: normal bowel sounds 08/14/2016 None Full Exam - General 1994 Lymphatic neck nodes Overall: anterior cervical chain benign 08/14/2016 None Full Exam - General 1994 Lymphatic neck nodes Overall: posterior cervical chain benign 08/14/2016 None Full Exam - General 1994 Musculoskeletal lower extremity Inspection - thigh: normal appearance 08/14/2016 Left above the knee amputation Full Exam - General 1994 Musculoskeletal head and neck Overall: head atraumatic 08/14/2016 None Full Exam - General 1994 Constitutional general appearance Assistive Device: wheelchair 08/14/2016 None Full Exam - General 1994 Neurologic cranial nerves Overall: crainial nerves 2 - 12 grossly intact 08/14/2016 None Full Exam - General 1994 Psychiatric orientation/consciousness Overall: oriented to person, place and time 08/14/2016 None Full Exam - General 1994 Psychiatric mood and affect Overall: normal mood and affect 08/14/2016 None Full Exam - General Constitutional general appearance Overall: well nourished 04/16/2016 None Full Exam - General Constitutional general appearance Overall: well developed 04/16/2016 None Full Exam - General Constitutional general appearance Overall: in no acute distress 04/16/2016 None Full Exam - General Eyes conjunctiva/eyelids Overall: conjunctiva clear 04/16/2016 None Full Exam - General Eyes conjunctiva/eyelids Overall: eyelids normal 04/16/2016 None Full Exam - General Ears/Nose/Throat otoscopic exam Overall: external auditory canals clear 04/16/2016 None Full Exam - General Ears/Nose/Throat otoscopic exam Overall: tympanic membranes clear 04/16/2016 None Full Exam - General Ears/Nose/Throat lips/teeth/gingiva Overall: benign lips 04/16/2016 None Full Exam - General Ears/Nose/Throat oral cavity/pharynx/larynx Overall: oral mucosa clear 04/16/2016 None Full Exam - General Ears/Nose/Throat oral cavity/pharynx/larynx Overall: oropharyngeal mucosa clear 04/16/2016 None Full Exam - General Ears/Nose/Throat oral cavity/pharynx/larynx Overall: no masses 04/16/2016 None Full Exam - General Respiratory auscultation Overall: breath sounds clear bilater ally 04/16/2016 None Full Exam - General Respiratory respiratory effort/rhythm Overall: no retractions 04/16/2016 None Full Exam - General Respiratory respiratory effort/rhythm Overall: normal rate 04/16/2016 None Full Exam - General Cardiovascular auscultation of heart Overall: regular rate 04/16/2016 None Full Exam - General Cardiovascular auscultation of heart Overall: normal heart sounds 04/16/2016 None Full Exam - General Abdomen abdominal exam Overall: normal bowel sounds 04/16/2016 None Full Exam - General Abdomen abdominal exam Overall: no tenderness 04/16/2016 None Full Exam - General Lymphatic neck nodes Overall: anterior cervical chain jeremi ign 04/16/2016 None Full Exam - General Lymphatic neck nodes Overall: posterior cervical chain be nign 04/16/2016 None Full Exam - General Psychiatric orientation/consciousness Overall: oriented to person, place and time 04/16/2016 None Full Exam - Orthopedics Constitutional general appearance Overall: well nourished 01/21/2016 None Full Exam - Orthopedics Constitutional general appearance Overall: well developed 01/21/2016 None Full Exam - Orthopedics Constitutional general appearance Overall: in no acute distress 01/21/2016 None Full Exam - Orthopedics Constitutional general appearance Hygiene/Attention to Grooming: poor hygiene 01/21/2016 None Full Exam - Orthopedics Eyes conjunctiva/eyelids Overall: conjunctiva clear 01/21/2016 None Full Exam - Orthopedics Ears/Nose/Throat lips/teeth/gingiva Overall: benign lips 01/21/2016 None Full Exam - Orthopedics Respiratory respiratory effort/rhythm Overall: no retractions 01/21/2016 None Full Exam - Orthopedics Respiratory respiratory effort/rhythm Overall: normal rate 01/21/2016 None Full Exam - Orthopedics MS: right lo wer extremity insp & palp - RLE Midfoot: normal appearance 01/21/2016 None Full Exam - Orthopedics MS: right lo wer extremity insp & palp - RLE Midfoot: tenderness at fifth metatarsal base 01/21/2016 no edema, erythema, bruising, or warmth noted Full Exam - Orthopedics Neurological orientation Overall: alert 01/21/2016 None Full Exam - Orthopedics Neurological orientation Overall: oriented to person, place and time 01/21/2016 None Full Exam - Orthopedics Psychiatric mood and affect Overall: normal mood and affect 01/21/2016 None Full Exam - Dermatology Constitutional general appearance Overall: well nourished 01/10/2016 None Full Exam - Dermatology Constitutional general appearance Overall: well developed 01/10/2016 None Full Exam - Dermatology Constitutional general appearance Overall: in no acute distress 01/10/2016 None Full Exam - Dermatology Eyes conjunctiva/eyelids Overall: clear conjunctiva bilaterally 01/10/2016 None Full Exam - Dermatology Ears/Nose/Throat lips/teeth/gingiva Overall: benign lips 01/10/2016 None Full Exam - Dermatology Respiratory respiratory effort/rhythm Overall: no retractions 01/10/2016 None Full Exam - Dermatology Respiratory respiratory effort/rhythm Overall: normal rate 01/10/2016 None Full Exam - Dermatology Integument insp & palp - chest/axillae Lesion: patch 01/10/2016 None Full Exam - Dermatology Integument insp & palp - chest/axillae Location: on the upper chest 01/10/2016 None Full Exam - Dermatology Integument insp & palp - chest/axillae Location: on the mid chest 01/10/2016 None Full Exam - Dermatology Integument insp & palp - chest/axillae Location: on the lower chest 01/10/2016 None Full Exam - Dermatology Integument insp & palp - chest/axillae Color: erythematous 01/10/2016 None Full Exam - Dermatology Integument insp & palp - abdomen Lesion: patch 01/10/2016 None Full Exam - Dermatology Integument insp & palp - abdomen Location: on the lower abdomen 01/10/2016 None Full Exam - Dermatology Integument insp & palp - abdomen Color: erythematous 01/10/2016 None Full Exam - Dermatology Integument insp & palp - left upper extremity Lesion: patch 01/10/2016 None Full Exam - Dermatology Integument insp & palp - left upper extremity Location: on the upper arm 01/10/2016 None Full Exam - Dermatology Integument insp & palp - left upper extremity Color: erythematous 01/10/2016 None Full Exam - Dermatology Integument insp & palp - right upper extremity Lesion: patch 01/10/2016 None Full Exam - Dermatology Integument insp & palp - right upper extremity Location: on the upper arm 01/10/2016 None Full Exam - Dermatology Integument insp & palp - right upper extremity Color: erythematous 01/10/2016 None Full Exam - Dermatology Neurologic gait Overall: no ataxia, no unsteadiness 01/10/2016 None Full Exam - Dermatology Psychiatric orientation Overall: oriented to person, place and time 01/10/2016 None Full Exam - Dermatology Psychiatric mood and affect Overall: normal mood and affect 01/10/2016 None Full Exam - Dermatology Constitutional general appearance Hygiene/Attention to Grooming: poor hygiene 01/10/2016 None Full Exam - Dermatology Integument insp & palp - chest/axillae Location: on the left axilla 01/10/2016 healed I&D - no erythema, edema, warmth, or induration noted, edges well approximated. Full Exam - Dermatology Constitutional general appearance Overall: well nourished 01/07/2016 None Full Exam - Dermatology Constitutional general appearance Overall: well developed 01/07/2016 None Full Exam - Dermatology Constitutional general appearance Overall: in no acute distress 01/07/2016 None Full Exam - Dermatology Eyes conjunctiva/eyelids Overall: clear conjunctiva bilaterally 01/07/2016 None Full Exam - Dermatology Ears/Nose/Throat lips/teeth/gingiva Overall: benign lips 01/07/2016 None Full Exam - Dermatology Respiratory respiratory effort/rhythm Overall: no retractions 01/07/2016 None Full Exam - Dermatology Respiratory respiratory effort/rhythm Overall: normal rate 01/07/2016 None Full Exam - Dermatology Integument insp & palp - chest/axillae Lesion: patch 01/07/2016 None Full Exam - Dermatology Integument insp & palp - chest/axillae Location: on the upper chest 01/07/2016 None Full Exam - Dermatology Integument insp & palp - chest/axillae Location: on the mid chest 01/07/2016 None Full Exam - Dermatology Integument insp & palp - chest/axillae Location: on the lower chest 01/07/2016 None Full Exam - Dermatology Integument insp & palp - chest/axillae Color: erythematous 01/07/2016 None Full Exam - Dermatology Integument insp & palp - abdomen Location: on the lower abdomen 01/07/2016 None Full Exam - Dermatology Integument insp & palp - abdomen Color: erythematous 01/07/2016 None Full Exam - Dermatology Integument insp & palp - abdomen Lesion: patch 01/07/2016 None Full Exam - Dermatology Integument insp & palp - left upper extremity Lesion: patch 01/07/2016 None Full Exam - Dermatology Integument insp & palp - left upper extremity Location: on the upper arm 01/07/2016 None Full Exam - Dermatology Integument insp & palp - left upper extremity Color: erythematous 01/07/2016 None Full Exam - Dermatology Integument insp & palp - right upper extremity Lesion: patch 01/07/2016 None Full Exam - Dermatology Integument insp & palp - right upper extremity Location: on the upper arm 01/07/2016 None Full Exam - Dermatology Integument insp & palp - right upper extremity Color: erythematous 01/07/2016 None Full Exam - Dermatology Neurologic gait Overall: no ataxia, no unsteadiness 01/07/2016 None Full Exam - Dermatology Psychiatric orientation Overall: oriented to person, place and time 01/07/2016 None Full Exam - Dermatology Psychiatric mood and affect Overall: normal mood and affect 01/07/2016 None Full Exam - Cardiology Integument inspection/palpation Location: left arm 01/02/2016 axilla - packing removed - very minimal drainage noted - wound cleaned, clean dry dressing placed. Full Exam - Cardiology Integument inspection/palpation Location: left arm 01/01/2016 axilla - packing removed - minimal purulent drainage noted, repacked and dressing applied. Full Exam - Cardiology Integument inspection/palpation Location: left arm 12/31/2015 axilla - packing removed - minimal purulent drainage noted, repacked and dressing applied. Full Exam - Dermatology Constitutional general appearance Overall: well nourished 12/25/2015 None Full Exam - Dermatology Constitutional general appearance Overall: well developed 12/25/2015 None Full Exam - Dermatology Constitutional general appearance Overall: in no acute distress 12/25/2015 None Full Exam - Dermatology Eyes conjunctiva/eyelids Overall: clear conjunctiva bilaterally 12/25/2015 None Full Exam - Dermatology Respiratory respiratory effort/rhythm Overall: no retractions 12/25/2015 None Full Exam - Dermatology Respiratory respiratory effort/rhythm Overall: normal rate 12/25/2015 None Full Exam - Dermatology Integument insp & palp - chest/axillae Location: on the left axilla 12/25/2015 None Full Exam - Dermatology Integument insp & palp - chest/axillae Color: erythematous 12/25/2015 None Full Exam - Dermatology Integument insp & palp - chest/axillae Lesion: pustule 12/25/2015 None Full Exam - Dermatology Integument insp & palp - chest/axillae Appearance: tender 12/25/2015 None Full Exam - Dermatology Integument insp & palp - chest/axillae Appearance: deep 12/25/2015 None Full Exam - Dermatology Integument insp & palp - chest/axillae Appearance: oozing 12/25/2015 None Full Exam - Dermatology Integument insp & palp - chest/axillae Number: three 12/25/2015 None Full Exam - Dermatology Integument insp & palp - chest/axillae Consistency: firm 12/25/2015 None Full Exam - Dermatology Integument insp & palp - chest/axillae Consistency: tender 12/25/2015 None Full Exam - Dermatology Integument insp & palp - chest/axillae Consistency: indurated 12/25/2015 None Full Exam - Dermatology Psychiatric orientation Overall: oriented to person, place and time 12/25/2015 None Full Exam - Dermatology Psychiatric mood and affect Overall: normal mood and affect 12/25/2015 None Full Exam - General 1994 Constitutional general appearance Development: well developed 10/11/2015 None Full Exam - General 1994 Constitutional general appearance Hygiene/Attention to Grooming: poor hygiene 10/11/2015 None Full Exam - General 1994 Eyes conjunctiva/eyelids Overall: conjunctiva clear 10/11/2015 None Full Exam - General 1994 Ears/Nose/Throat oral cavity/pharynx/larynx Overall: oral mucosa clear 10/11/2015 None Full Exam - General 1994 Respiratory respiratory effort/rhythm Overall: no retractions 10/11/2015 None Full Exam - General 1994 Respiratory respiratory effort/rhythm Overall: normal rate 10/11/2015 None Full Exam - General 1994 Musculoskeletal head and neck Overall: head atraumatic 10/11/2015 None Full Exam - General 1994 Integument inspection of skin Location: left foot 10/11/2015 middle toe - ulceration - erythema and tenderness of the toe - improving - being treated by wound care. Full Exam - General 1994 Neurologic mental status Overall: alert 10/11/2015 None Full Exam - General 1994 Neurologic mental status Overall: oriented 10/11/2015 None Full Exam - General 1994 Neurologic cranial nerves Overall: crainial nerves 2 - 12 grossly intact 10/11/2015 None Full Exam - General 1994 Psychiatric orientation/consciousness Overall: oriented to person, place and time 10/11/2015 None Full Exam - General 1994 Psychiatric mood and affect Overall: normal mood and affect 10/11/2015 None Full Exam - General 1994 Psychiatric appearance Eye contact: yes 10/11/2015 None Full Exam - General 1994 Psychiatric appearance Grooming: disheveled 10/11/2015 None Full Exam - General 1994 Psychiatric speech Overall: normal quality, no aphasia 10/11/2015 None Full Exam - General 1994 Respiratory auscultation Overall: breath sounds clear bilaterally 10/11/2015 None Full Exam - General 1994 Cardiovascular auscultation of heart Overall: regular rate 10/11/2015 None Full Exam - General 1994 Cardiovascular auscultation of heart Overall: normal heart sounds 10/11/2015 None Full Exam - General 1994 Abdomen abdominal exam Overall: no tenderness 10/11/2015 None Full Exam - General 1994 Abdomen abdominal exam Overall: normal bowel sounds 10/11/2015 None Full Exam - General 1994 Constitutional general appearance Development: well developed 08/20/2015 None Full Exam - General 1994 Constitutional general appearance Hygiene/Attention to Grooming: poor hygiene 08/20/2015 None Full Exam - General 1994 Neurologic mental status Overall: alert 08/20/2015 None Full Exam - General 1994 Neurologic mental status Overall: oriented 08/20/2015 None Full Exam - General 1994 Neurologic cranial nerves Overall: crainial nerves 2 - 12 grossly intact 08/20/2015 None Full Exam - General 1994 Psychiatric orientation/consciousness Overall: oriented to person, place and time 08/20/2015 None Full Exam - General 1994 Psychiatric mood and affect Overall: normal mood and affect 08/20/2015 None Full Exam - General 1994 Psychiatric appearance Eye contact: yes 08/20/2015 None Full Exam - General 1994 Psychiatric appearance Grooming: disheveled 08/20/2015 None Full Exam - General 1994 Psychiatric speech Overall: normal quality, no aphasia 08/20/2015 None Full Exam - General 1994 Eyes conjunctiva/eyelids Overall: conjunctiva clear 08/20/2015 None Full Exam - General 1994 Ears/Nose/Throat oral cavity/pharynx/larynx Overall: oral mucosa clear 08/20/2015 None Full Exam - General 1994 Respiratory respiratory effort/rhythm Overall: no retractions 08/20/2015 None Full Exam - General 1994 Respiratory respiratory effort/rhythm Overall: normal rate 08/20/2015 None Full Exam - General 1994 Musculoskeletal head and neck Overall: head atraumatic 08/20/2015 None Full Exam - General 1994 Integument inspection of skin Location: left foot 08/20/2015 middle toe - ulceration - erythema and tenderness of the toe and the surrounding tissue - erythema extending onto the foot. Very tender to the touch - culture obtained. Full Exam - General 1994 Psychiatric mood and affect Mood: flat 08/20/2015 None Full Exam - General 1994 Constitutional general appearance Development: well developed 12/28/2014 None Full Exam - General 1994 Constitutional general appearance Hygiene/Attention to Grooming: poor hygiene 12/28/2014 None Full Exam - General 1994 Eyes conjunctiva/eyelids Conjunctiva: clear 12/28/2014 None Full Exam - General 1994 Eyes pupils and irises Overall: pupils equal, round, reactive to light and accomodation 12/28/2014 None Full Exam - General 1994 Eyes pupils and irises Pupil: a normal exam 12/28/2014 None Full Exam - General 1994 Ears/Nose/Throat otoscopic exam External auditory canal: partial cerumen occlusion 12/28/2014 None Full Exam - General 1994 Ears/Nose/Throat otoscopic exam Tympanic membrane: not visualized 12/28/2014 None Full Exam - General 1994 Ears/Nose/Throat oral cavity/pharynx/larynx Oropharynx: a normal exam 12/28/2014 None Full Exam - General 1994 Neck inspection of neck Overall: normal size 12/28/2014 None Full Exam - General 1994 Neck inspection of neck Overall: normal appearance 12/28/2014 None Full Exam - General 1994 Neck inspection of neck Overall: no masses 12/28/2014 None Full Exam - General 1994 Respiratory auscultation Diffuse: diminished 12/28/2014 None Full Exam - General 1994 Respiratory respiratory effort/rhythm Overall: normal rate 12/28/2014 None Full Exam - General 1994 Cardiovascular inspection of pedal pulses Dorsalis pedis: a normal exam 12/28/2014 None Full Exam - General 1994 Cardiovascular extremities Clubbing present: fingers 12/28/2014 None Full Exam - General 1994 Cardiovascular auscultation of heart Overall: regular rate 12/28/2014 None Full Exam - General 1994 Cardiovascular auscultation of heart Overall: normal heart sounds 12/28/2014 None Full Exam - General 1994 Cardiovascular auscultation of heart Systolic murmur: holosystolic 12/28/2014 None Full Exam - General 1994 Abdomen abdominal exam Overall: no tenderness 12/28/2014 None Full Exam - General 1994 Abdomen abdominal exam Overall: normal bowel sounds 12/28/2014 None Full Exam - General 1994 Lymphatic neck nodes Overall: anterior cervical chain benign 12/28/2014 None Full Exam - General 1994 Lymphatic neck nodes Overall: posterior cervical chain benign 12/28/2014 None Full Exam - General 1994 Musculoskeletal digits and nails Nails: clubbing 12/28/2014 None Full Exam - General 1994 Musculoskeletal gait and station Overall: normal gait 12/28/2014 None Full Exam - General 1994 Musculoskeletal gait and station Overall: normal station 12/28/2014 None Full Exam - General 1994 Integument inspection of skin Pigmentation: hemosideran pigment changes 12/28/2014 None Full Exam - General 1994 Neurologic mental status Overall: alert 12/28/2014 None Full Exam - General 1994 Neurologic mental status Overall: oriented 12/28/2014 None Full Exam - General 1994 Neurologic gait Conventional walking: a normal exam 12/28/2014 None Full Exam - General 1994 Neurologic coordination Overall: no tremors 12/28/2014 None Full Exam - General 1994 Neurologic cranial nerves Overall: crainial nerves 2 - 12 grossly intact 12/28/2014 None Full Exam - General 1994 Psychiatric orientation/consciousness Overall: oriented to person, place and time 12/28/2014 None Full Exam - General 1994 Psychiatric mood and affect Overall: normal mood and affect 12/28/2014 None Full Exam - General 1994 Psychiatric mood and affect Mood: flat 12/28/2014 None Full Exam - General 1994 Psychiatric appearance Eye contact: yes 12/28/2014 None Full Exam - General 1994 Psychiatric appearance Grooming: disheveled 12/28/2014 None Full Exam - General 1994 Psychiatric speech Overall: normal quality, no aphasia 12/28/2014 None Full Exam - General 1994 Integument inspection of skin Dermatitis: excoriation 12/28/2014 None Full Exam - General 1994 Integument inspection of skin Location: right arm 12/28/2014 None Full Exam - General 1994 Integument inspection of skin Location: left arm 12/28/2014 None Full Exam - General 1994 Integument inspection of skin Rash/Lesions: patch 12/28/2014 None Full Exam - General 1994 Constitutional general appearance Development: well developed 10/31/2014 None Full Exam - General 1994 Constitutional general appearance Hygiene/Attention to Grooming: poor hygiene 10/31/2014 None Full Exam - General 1994 Eyes conjunctiva/eyelids Conjunctiva: clear 10/31/2014 None Full Exam - General 1994 Eyes conjunctiva/eyelids Conjunctiva: erythema 10/31/2014 None Full Exam - General 1994 Eyes pupils and irises Overall: pupils equal, round, reactive to light and accomodation 10/31/2014 None Full Exam - General 1994 Eyes pupils and irises Pupil: a normal exam 10/31/2014 None Full Exam - General 1994 Ears/Nose/Throat otoscopic exam External auditory canal: partial cerumen occlusion 10/31/2014 None Full Exam - General 1994 Ears/Nose/Throat otoscopic exam Tympanic membrane: not visualized 10/31/2014 None Full Exam - General 1994 Ears/Nose/Throat oral cavity/pharynx/larynx Oropharynx: a normal exam 10/31/2014 None Full Exam - General 1994 Neck inspection of neck Overall: normal size 10/31/2014 None Full Exam - General 1994 Neck inspection of neck Overall: normal appearance 10/31/2014 None Full Exam - General 1994 Neck inspection of neck Overall: no masses 10/31/2014 None Full Exam - General 1994 Respiratory auscultation Diffuse: diminished 10/31/2014 None Full Exam - General 1994 Respiratory respiratory effort/rhythm Overall: normal rate 10/31/2014 None Full Exam - General 1994 Cardiovascular inspection of pedal pulses Dorsalis pedis: a normal exam 10/31/2014 None Full Exam - General 1994 Cardiovascular extremities Clubbing present: fingers 10/31/2014 None Full Exam - General 1994 Cardiovascular auscultation of heart Overall: regular rate 10/31/2014 None Full Exam - General 1994 Cardiovascular auscultation of heart Overall: normal heart sounds 10/31/2014 None Full Exam - General 1994 Cardiovascular auscultation of heart Systolic murmur: holosystolic 10/31/2014 None Full Exam - General 1994 Abdomen abdominal exam Overall: no tenderness 10/31/2014 None Full Exam - General 1994 Abdomen abdominal exam Overall: normal bowel sounds 10/31/2014 None Full Exam - General 1994 Lymphatic neck nodes Overall: anterior cervical chain benign 10/31/2014 None Full Exam - General 1994 Lymphatic neck nodes Overall: posterior cervical chain benign 10/31/2014 None Full Exam - General 1994 Musculoskeletal digits and nails Nails: clubbing 10/31/2014 None Full Exam - General 1994 Musculoskeletal gait and station Overall: normal gait 10/31/2014 None Full Exam - General 1994 Musculoskeletal gait and station Overall: normal station 10/31/2014 None Full Exam - General 1994 Integument inspection of skin Overall: few scattered moles, no gross abnormalities 10/31/2014 None Full Exam - General 1994 Integument inspection of skin Overall: no rash, lesions 10/31/2014 None Full Exam - General 1994 Integument inspection of skin Pigmentation: hemosideran pigment changes 10/31/2014 None Full Exam - General 1994 Neurologic mental status Overall: alert 10/31/2014 None Full Exam - General 1994 Neurologic mental status Overall: oriented 10/31/2014 None Full Exam - General 1994 Neurologic gait Conventional walking: a normal exam 10/31/2014 None Full Exam - General 1994 Neurologic coordination Overall: no tremors 10/31/2014 None Full Exam - General 1994 Neurologic cranial nerves Overall: crainial nerves 2 - 12 grossly intact 10/31/2014 None Full Exam - General 1994 Psychiatric orientation/consciousness Overall: oriented to person, place and time 10/31/2014 None Full Exam - General 1994 Psychiatric mood and affect Overall: normal mood and affect 10/31/2014 None Full Exam - General 1994 Psychiatric mood and affect Mood: flat 10/31/2014 None Full Exam - General 1994 Psychiatric appearance Eye contact: yes 10/31/2014 None Full Exam - General 1994 Psychiatric appearance Grooming: disheveled 10/31/2014 None Full Exam - General 1994 Psychiatric speech Overall: normal quality, no aphasia 10/31/2014 None Full Exam - General 1994 Constitutional general appearance Development: well developed 10/02/2014 None Full Exam - General 1994 Eyes conjunctiva/eyelids Conjunctiva: clear 10/02/2014 None Full Exam - General 1994 Eyes conjunctiva/eyelids Conjunctiva: erythema 10/02/2014 None Full Exam - General 1994 Eyes pupils and irises Overall: pupils equal, round, reactive to light and accomodation 10/02/2014 None Full Exam - General 1994 Ears/Nose/Throat otoscopic exam External auditory canal: partial cerumen occlusion 10/02/2014 None Full Exam - General 1994 Ears/Nose/Throat otoscopic exam Tympanic membrane: not visualized 10/02/2014 None Full Exam - General 1994 Ears/Nose/Throat oral cavity/pharynx/larynx Oropharynx: a normal exam 10/02/2014 None Full Exam - General 1994 Neck inspection of neck Overall: normal size 10/02/2014 None Full Exam - General 1994 Neck inspection of neck Overall: normal appearance 10/02/2014 None Full Exam - General 1994 Neck inspection of neck Overall: no masses 10/02/2014 None Full Exam - General 1994 Respiratory respiratory effort/rhythm Overall: normal rate 10/02/2014 None Full Exam - General 1994 Cardiovascular inspection of pedal pulses Dorsalis pedis: a normal exam 10/02/2014 None Full Exam - General 1994 Cardiovascular auscultation of heart Overall: regular rate 10/02/2014 None Full Exam - General 1994 Cardiovascular auscultation of heart Overall: normal heart sounds 10/02/2014 None Full Exam - General 1994 Cardiovascular auscultation of heart Systolic murmur: holosystolic 10/02/2014 None Full Exam - General 1994 Abdomen abdominal exam Overall: no tenderness 10/02/2014 None Full Exam - General 1994 Abdomen abdominal exam Overall: normal bowel sounds 10/02/2014 None Full Exam - General 1994 Lymphatic neck nodes Overall: anterior cervical chain benign 10/02/2014 None Full Exam - General 1994 Lymphatic neck nodes Overall: posterior cervical chain benign 10/02/2014 None Full Exam - General 1994 Musculoskeletal digits and nails Nails: clubbing 10/02/2014 None Full Exam - General 1994 Integument inspection of skin Overall: few scattered moles, no gross abnormalities 10/02/2014 None Full Exam - General 1994 Integument inspection of skin Overall: no rash, lesions 10/02/2014 None Full Exam - General 1994 Integument inspection of skin Pigmentation: hemosideran pigment changes 10/02/2014 None Full Exam - General 1994 Neurologic mental status Overall: alert 10/02/2014 None Full Exam - General 1994 Neurologic mental status Overall: oriented 10/02/2014 None Full Exam - General 1994 Neurologic coordination Overall: no tremors 10/02/2014 None Full Exam - General 1994 Neurologic cranial nerves Overall: crainial nerves 2 - 12 grossly intact 10/02/2014 None Full Exam - General 1994 Psychiatric orientation/consciousness Overall: oriented to person, place and time 10/02/2014 None Full Exam - General 1994 Psychiatric mood and affect Overall: normal mood and affect 10/02/2014 None Full Exam - General 1994 Psychiatric mood and affect Mood: flat 10/02/2014 None Full Exam - General 1994 Psychiatric appearance Eye contact: yes 10/02/2014 None Full Exam - General 1994 Psychiatric appearance Grooming: disheveled 10/02/2014 None Full Exam - General 1994 Psychiatric speech Overall: normal quality, no aphasia 10/02/2014 None Full Exam - General 1994 Constitutional general appearance Hygiene/Attention to Grooming: poor hygiene 10/02/2014 None Full Exam - General 1994 Respiratory auscultation Diffuse: diminished 10/02/2014 None Full Exam - General 1994 Cardiovascular extremities Clubbing present: fingers 10/02/2014 None Full Exam - General 1994 Musculoskeletal gait and station Overall: normal gait 10/02/2014 None Full Exam - General 1994 Musculoskeletal gait and station Overall: normal station 10/02/2014 None Full Exam - General 1994 Neurologic gait Conventional walking: a normal exam 10/02/2014 None Full Exam - General 1994 Eyes pupils and irises Pupil: a normal exam 10/02/2014 None Full Exam - General 1994 Psychiatric orientation/consciousness Overall: oriented to person, place and time 09/21/2014 None Full Exam - General 1994 Psychiatric mood and affect Overall: normal mood and affect 09/21/2014 None Full Exam - General 1994 Psychiatric mood and affect Mood: flat 09/21/2014 None Full Exam - General 1994 Psychiatric appearance Grooming: disheveled 09/21/2014 None Full Exam - General 1994 Psychiatric appearance Eye contact: yes 09/21/2014 None Full Exam - General 1994 Psychiatric speech Overall: normal quality, no aphasia 09/21/2014 None Full Exam - General 1994 Neurologic mental status Overall: alert 09/21/2014 None Full Exam - General 1994 Neurologic mental status Overall: oriented 09/21/2014 None Full Exam - General 1994 Neurologic gait Conventional walking: shuffling 09/21/2014 None Full Exam - General 1994 Neurologic coordination Overall: no tremors 09/21/2014 None Full Exam - General 1994 Neurologic cranial nerves Overall: crainial nerves 2 - 12 grossly intact 09/21/2014 None Full Exam - General 1994 Integument inspection of skin Overall: few scattered moles, no gross abnormalities 09/21/2014 None Full Exam - General 1994 Integument inspection of skin Overall: no rash, lesions 09/21/2014 None Full Exam - General 1994 Integument inspection of skin Pigmentation: hemosideran pigment changes 09/21/2014 None Full Exam - General 1994 Musculoskeletal gait and station Overall: normal gait 09/21/2014 None Full Exam - General 1994 Musculoskeletal gait and station Overall: normal station 09/21/2014 None Full Exam - General 1994 Lymphatic neck nodes Overall: anterior cervical chain benign 09/21/2014 None Full Exam - General 1994 Lymphatic neck nodes Overall: posterior cervical chain benign 09/21/2014 None Full Exam - General 1994 Abdomen abdominal exam Overall: no tenderness 09/21/2014 None Full Exam - General 1994 Abdomen abdominal exam Overall: normal bowel sounds 09/21/2014 None Full Exam - General 1994 Cardiovascular extremities Edema present: pitting 09/21/2014 None Full Exam - General 1994 Cardiovascular extremities Edema present: bilateral 09/21/2014 None Full Exam - General 1994 Cardiovascular extremities Edema present: to leg 09/21/2014 None Full Exam - General 1994 Cardiovascular extremities Edema present: severity 3+ 09/21/2014 None Full Exam - General 1994 Cardiovascular inspection of pedal pulses Dorsalis pedis: a normal exam 09/21/2014 None Full Exam - General 1994 Cardiovascular auscultation of heart Overall: regular rate 09/21/2014 None Full Exam - General 1994 Cardiovascular auscultation of heart Overall: normal heart sounds 09/21/2014 None Full Exam - General 1994 Cardiovascular auscultation of heart Systolic murmur: holosystolic 09/21/2014 None Full Exam - General 1994 Respiratory respiratory effort/rhythm Overall: normal rate 09/21/2014 None Full Exam - General 1994 Neck inspection of neck Overall: normal size 09/21/2014 None Full Exam - General 1994 Neck inspection of neck Overall: normal appearance 09/21/2014 None Full Exam - General 1994 Neck inspection of neck Overall: no masses 09/21/2014 None Full Exam - General 1994 Ears/Nose/Throat otoscopic exam External auditory canal: partial cerumen occlusion 09/21/2014 None Full Exam - General 1994 Ears/Nose/Throat otoscopic exam Tympanic membrane: not visualized 09/21/2014 None Full Exam - General 1994 Ears/Nose/Throat oral cavity/pharynx/larynx Oropharynx: a normal exam 09/21/2014 None Full Exam - General 1994 Eyes conjunctiva/eyelids Conjunctiva: erythema 09/21/2014 None Full Exam - General 1994 Eyes conjunctiva/eyelids Conjunctiva: clear 09/21/2014 None Full Exam - General 1994 Eyes pupils and irises Overall: pupils equal, round, reactive to light and accomodation 09/21/2014 None Full Exam - General 1994 Constitutional general appearance Development: well developed 09/21/2014 None Full Exam - General 1994 Constitutional general appearance Development: appears stated age 0709/21/2014 None Full Exam - General 1994 Respiratory auscultation Diffuse: diminished 09/21/2014 None Full Exam - General 1994 Respiratory auscultation Upper lung field: expiratory wheezes 09/21/2014 clears with cough Full Exam - General 1994 Musculoskeletal digits and nails Nails: clubbing 09/21/2014 None Full Exam - General 1994 Constitutional general appearance Hygiene/Attention to Grooming: poor hygiene 09/21/2014 None Full Exam - General 1994 Musculoskeletal digits and nails Nails: thickened 09/21/2014 None Full Exam - General 1994 Musculoskeletal lower extremity Inspection - lower leg: swelling 09/21/2014 right greater than left Procedures Procedure Codes Date PPPS, SUBSEQ VISIT CPT- 4: G0439 10/19/2018 THER/PROPH/DIAG INJ SC/IM CPT-4: 38360 08/28/2017 ROCEPHIN, PER 250 MG CPT-4: J0696 08/28/2017 TOBACCO-USE COOK COLD MEAT 3-[address]: 773227241 CPT-4: G0436 01/27/2017 TOBACCO-USE COOK COLD MEAT 3-[address]: 559455452 CPT-4: G0436 11/25/2016 TOBACCO-USE COOK COLD MEAT 3-[address]: 138368871 CPT-4: G0436 10/15/2016 TOBACCO-USE COOK COLD MEAT 3-[address]: 902831218 CPT-4: G0436 09/17/2016 THER/PROPH/DIAG INJ SC/IM CPT-4: 23791 01/07/2016 TRIAMCINOLONE ACET I [place] NOS CPT-4: J3301 01/07/2016 TRIAMCINOLONE ACET I [place] NOS CPT-4: J3301 09/21/2014 THER/PROPH/DIAG INJ SC/IM CPT-4: 30288 09/21/2014 Vital Signs Date Vital 10/19/2018 Blood Pressure 1: 130/76 Code: 8480-6 BMI: 33.1 Code: 40941-5 Heart Rate 1: 75 bpm Height: 5'3" SpO2: 97% Weight: 187 lbs 06/10/2018 Blood Pressure 1: 122/60 Code: 8480-6 BMI: 31.4 Code: 06668-4 Heart Rate 1: 75 bpm Height: 5'3" SpO2: 98% Weight: 177 lbs 03/11/2018 Blood Pressure 1: 134/82 Code: 8480-6 BMI: 32.8 Code: 65207-6 Heart Rate 1: 65 bpm Height: 5'3" SpO2: 96% Weight: 185 lbs 08/28/2017 Blood Pressure 1: 138/72 Code: 8480-6 Heart Rate 1: 80 bpm Height: SpO2: 98% Weight: 07/20/2017 Blood Pressure 1: 134/76 Code: 8480-6 BMI: 29.6 Code: 32954-7 Heart Rate 1: 82 bpm Height: 5'3" Weight: 167 lbs 04/21/2017 Blood Pressure 1: 134/78 Code: 8480-6 Heart Rate 1: 77 bpm Height: SpO2: 98% Weight: 04/07/2017 Blood Pressure 1: 128/66 Code: 8480-6 Heart Rate 1: 64 bpm Height: SpO2: 97% Temperature: 36.7 (C ) / 98.1 (F) Weight: 01/27/2017 Blood Pressure 1: 110/72 Code: 8480-6 Heart Rate 1: 61 bpm Height: Respiratory Rate: 18 bpm SpO2: 98% Weight: 11/25/2016 Blood Pressure 1: 102/62 Code: 8480-6 Heart Rate 1: 59 bpm Height: SpO2: 99% Weight: 10/15/2016 Blood Pressure 1: 130/80 Code: 8480-6 Heart Rate 1: 59 bpm Height: SpO2: 96% Weight: 09/17/2016 Blood Pressure 1: 100/60 Code: 8480-6 Heart Rate 1: 80 bpm Height: SpO2: 94% Temperature: 36.3 (C ) / 97.4 (F) Weight: 08/14/2016 Blood Pressure 1: 122/62 Code: 8480-6 Heart Rate 1: 56 bpm Height: 5'3" SpO2: 94% Weight: 04/16/2016 Blood Pressure 1: 138/76 Code: 8480-6 Heart Rate 1: 67 bpm Height: 5'3" SpO2: 98% Temperature: 36.9 (C ) / 98.5 (F) Weight: 01/21/2016 Blood Pressure 1: 128/78 Code: 8480-6 BMI: 33.3 Code: 14841-4 Heart Rate 1: 72 bpm Height: 5'3" SpO2: 97% Weight: 188 lbs 01/10/2016 Blood Pressure 1: 132/76 Code: 8480-6 BMI: 33.1 Code: 84879-1 Heart Rate 1: 72 bpm Height: 5'3" SpO2: 97% Weight: 187 lbs 12/25/2015 Blood Pressure 1: 154/82 Code: 8480-6 BMI: 33.1 Code: 10588-3 Heart Rate 1: 72 bpm Height: 5'3" SpO2: 97% Weight: 187 lbs 10/11/2015 Blood Pressure 1: 110/62 Code: 8480-6 BMI: 34.7 Code: 79301-1 Heart Rate 1: 70 bpm Height: 5'3" SpO2: 93% Weight: 196 lbs 08/24/2015 Blood Pressure 1: 132/62 Code: 8480-6 BMI: 35.3 Code: 33455-1 Heart Rate 1: 62 bpm Height: 5'3" SpO2: 93% Weight: 199 lbs 08/20/2015 Blood Pressure 1: 140/68 Code: 8480-6 BMI: 35.3 Code: 36862-0 Heart Rate 1: 74 bpm Height: 5'3" SpO2: 96% Weight: 199 lbs 12/28/2014 Blood Pressure 1: 130/72 Code: 8480-6 BMI: 33.1 Code: 42378-3 Heart Rate 1: 60 bpm Height: 5'3" SpO2: 97% Weight: 187 lbs 10/31/2014 Blood Pressure 1: 118/72 Code: 8480-6 BMI: 31.2 Code: 14147-1 Heart Rate 1: 58 bpm Height: 5'3" SpO2: 98% Weight: 176 lbs 10/02/2014 Blood Pressure 1: 138/74 Code: 8480-6 BMI: 30.6 Code: 69814-7 Heart Rate 1: 72 bpm Height: 5'3" Weight: 173 lbs 09/21/2014 Blood Pressure 1: 138/72 Code: 8480-6 BMI: 30.5 Code: 00931-8 Heart Rate 1: 60 bpm Height: 5'3" SpO2: 96% Weight: 172 lbs Functional Status No Functional Status data History of Present Illness Symptom Name Status Resu lt Effective Date Notes Alcohol Use does not d rink any alcohol 10/19/2018 None Aspirin Use yes 10/19/2018 None Blood Glucose (self reported) don't know 10/19/2018 None Depression (last 6 months) almost never 10/19/2018 None Depression or Hopelessness some of the time 10/19/2018 None Describe Your Health g ood 10/19/2018 None Exercise Habits does n ot exercise 10/19/2018 None Handling Stress usuall y apoorva effectively 10/19/2018 None Hemaglobin A-1C (self reported) don't know 10/19/2018 None Interaction with Friends yes 10/19/2018 None Interests & Pleasure d aily 10/19/2018 None Life Satisfaction sati sfied 10/19/2018 None Motor Vehicle Safety a lways fastens seat belt: y 10/19/2018 None Motor Vehicle Safety d angel after drinking: n 10/19/2018 None Motor Vehicle Safety r ides with someone who has been drinking: n 10/19/2018 None Social & Emotional Support always 10/19/2018 None Stress some of the time 10/19/2018 None Sun Exposure protects skin when outdoors: y 10/19/2018 None Smoking and Tobacco Use cigarette smoker 10/19/2018 None Nutrition servings of fried food / high fat foods per day: _ 10/19/2018 None Nutrition servings of vegetables / fruit per day: 1 10/19/2018 None Nutrition servings of high fiber / whole grain per day: 2 10/19/2018 None Hours of Sleep 10 10/19/2018 None Blood Pressure (self reported) borderline (120/80 - 139/89) 10/19/2018 None Cholesterol (self reported) desireable (below 200) 10/19/2018 None Onset and Resolution o ngoing 06/10/2018 None Limitation on Activities moderately limits activities 06/10/2018 None Pertinent Findings Den ies dyspnea 06/10/2018 None Location oral intake 03/11/2018 None Quality chronic 03/11/2018 None cellulitis Quality acute 08/28/2017 None cellulitis Limitation on Activities does not limit activities 08/28/2017 None cellulitis Pertinent Findings Denies fever 08/28/2017 None medication follow up Additional Comments medication use 07/20/2017 None medication follow up Location oral intake 07/20/2017 None medication follow up Quality chronic 07/20/2017 None depression Quality acute 04/21/2017 None depression Onset and Resolution sudden in onset 04/21/2017 None depression Onset of Symptom 1+ months ago 04/21/2017 None depression Pertinent Findings depressed mood 04/21/2017 None depression Pertinent Findings sleep disturbance 04/21/2017 improved diarrhea Quality acute 04/21/2017 None diarrhea Onset and Resolution sudden in onset 04/21/2017 None diarrhea Onset of Symptom 2 weeks ago 04/21/2017 None diarrhea Triggers no kno wn associated factors 04/21/2017 None diarrhea Pertinent Findings Denies fever 04/21/2017 None depression Quality acute 04/07/2017 None depression Onset and Resolution sudden in onset 04/07/2017 None depression Onset of Symptom 1+ months ago 04/07/2017 None depression Pertinent Findings helplessness 04/07/2017 None depression Pertinent Findings depressed mood 04/07/2017 None depression Pertinent Findings sleep disturbance 04/07/2017 None vomiting Quality acute 04/07/2017 None vomiting Onset and Resolution sudden in onset 04/07/2017 None vomiting Onset of Symptom 1.5 weeks ago 04/07/2017 None vomiting Pertinent Findings fever 04/07/2017 (low grade) vomiting Pertinent Findings nausea 04/07/2017 None vomiting Pertinent Findings feeding poorly 04/07/2017 None diarrhea Quality acute 04/07/2017 None diarrhea Onset and Resolution sudden in onset 04/07/2017 None diarrhea Onset of Symptom 2 weeks ago 04/07/2017 None vomiting Triggers no kno wn associated factors 04/07/2017 None diarrhea Triggers no kno wn associated factors 04/07/2017 None diarrhea Pertinent Findings fever 04/07/2017 (low grade) diarrhea Pertinent Findings nausea 04/07/2017 None rash Quality chronic 01/27/2017 None rash Quality improving 01/27/2017 None rash Pertinent Findings itching 01/27/2017 None diarrhea Quality acute 01/27/2017 None diarrhea Quality loose 01/27/2017 None diarrhea Onset and Resolution ongoing 01/27/2017 None diarrhea Onset and Resolution sudden in onset 01/27/2017 None diarrhea Onset of Symptom 2-4 weeks ago 01/27/2017 None diarrhea Pertinent Findings Denies abdominal distension 01/27/2017 None diarrhea Pertinent Findings emesis 01/27/2017 None diarrhea Pertinent Findings flatulence 01/27/2017 None diarrhea Pertinent Findings Denies dyspepsia 01/27/2017 None diarrhea Pertinent Findings Denies cramping 01/27/2017 None diarrhea Pertinent Findings nausea 01/27/2017 None diarrhea Pertinent Findings Denies bloating 01/27/2017 None diarrhea Pertinent Findings Denies lightheadedness 01/27/2017 None vomiting Quality project ile 01/27/2017 None vomiting Quality acute 01/27/2017 None vomiting Quality dry hea ves 01/27/2017 None vomiting Quality intermi ttent 01/27/2017 None vomiting Onset and Resolution sudden in onset 01/27/2017 None vomiting Onset and Resolution ongoing 01/27/2017 None vomiting Onset of Symptom 2-4 weeks ago 01/27/2017 None vomiting Severity severe 01/27/2017 None vomiting Pertinent Findings Denies back pain 01/27/2017 None vomiting Pertinent Findings Denies abdominal distension 01/27/2017 None vomiting Pertinent Findings Denies bloating 01/27/2017 None vomiting Pertinent Findings Denies has bloody stools 01/27/2017 None vomiting Pertinent Findings decreased energy level 01/27/2017 None vomiting Pertinent Findings decreased liquid intake 01/27/2017 None vomiting Pertinent Findings Denies dyspepsia 01/27/2017 None vomiting Pertinent Findings Denies dyspnea 01/27/2017 None vomiting Pertinent Findings Denies feeding well 01/27/2017 None vomiting Pertinent Findings feeding poorly 01/27/2017 None vomiting Pertinent Findings Denies edema 01/27/2017 None vomiting Pertinent Findings Denies early satiety 01/27/2017 None vomiting Pertinent Findings Denies heartburn 01/27/2017 None vomiting Pertinent Findings gastroenteritis 01/27/2017 None vomiting Pertinent Findings Denies intermittent abdominal pain 01/27/2017 None vomiting Pertinent Findings medication use 01/27/2017 lomotil, phenergan vomiting Pertinent Findings Denies nausea 01/27/2017 None vomiting Pertinent Findings Denies unable to tolerate any liquids 01/27/2017 None rash Pertinent Findings itching 11/25/2016 None rash Location-Major in t he groin area 11/25/2016 None rash Quality chronic 11/25/2016 None rash Quality improving 11/25/2016 None rash Location-Major in t he groin area 10/15/2016 None rash Color red 10/15/2016 None rash Pertinent Findings itching 10/15/2016 None fever Quality intermitte nt 09/17/2016 None fever Onset and Resolution gradual in onset 09/17/2016 None fever Onset of Symptom 3 days ago 09/17/2016 None fever Frequency of Episodes daily 09/17/2016 None fever Pertinent Findings Denies cough 09/17/2016 None fever Pertinent Findings edema 09/17/2016 None fever Pertinent Findings Denies nausea 09/17/2016 None gait abnormality Quality unsteady 08/14/2016 None gait abnormality Onset and Resolution ongoing 08/14/2016 None gait abnormality Assistive devices wheelchair 08/14/2016 None gait abnormality Onset of Symptom during adulthood 08/14/2016 None gait abnormality Limitation on Activities necessitates ambulation with a wheelchair 08/14/2016 None gait abnormality Pertinent Findings Denies dementia 08/14/2016 None abdominal pain Location in the epigastric area 04/16/2016 None abdominal pain Quality c onstant 04/16/2016 None abdominal pain Onset and Resolution sudden in onset 04/16/2016 None abdominal pain Onset of Symptom 3 days ago 04/16/2016 None foot pain Location on th e right 01/21/2016 None foot pain Quality dull p ain 01/21/2016 None foot pain Quality sharp pain 01/21/2016 None foot pain Quality consta nt 01/21/2016 None foot pain Onset and Resolution sudden in onset 01/21/2016 None foot pain Onset of Symptom 1 months ago 01/21/2016 None foot pain Frequency of Episodes daily 01/21/2016 None rash Quality acute 01/10/2016 None rash Onset and Resolution sudden in onset 01/10/2016 None rash Onset of Symptom wh ile taking medication 01/10/2016 None rash Pertinent Findings Denies fever 01/10/2016 None wound follow up General Recovery well 01/10/2016 None wound follow up Pertinent Findings Denies fever 01/10/2016 None wound follow up Pertinent Findings Denies pain 01/10/2016 None rash Location-Major on t he upper body 01/07/2016 None rash Location-Major on t he chest 01/07/2016 None rash Location-Major on t he abdomen 01/07/2016 None rash Location-Major on t he back 01/07/2016 None rash Quality acute 01/07/2016 None rash Color erythematous 01/07/2016 None rash Onset and Resolution sudden in onset 01/07/2016 None rash Onset of Symptom wh ile taking medication 01/07/2016 None rash Pertinent Findings Denies fever 01/07/2016 None wound follow up Pertinent Findings redness around the incision site 01/01/2016 None wound follow up Pertinent Findings Denies pain 01/01/2016 None skin lesion Quality enla rging 12/25/2015 None skin lesion Quality oozi ng 12/25/2015 None skin lesion Quality ulce rated 12/25/2015 None skin lesion Location lef t arm 12/25/2015 None skin lesion Onset and Resolution sudden in onset 12/25/2015 None skin lesion Onset of Symptom 1 weeks ago 12/25/2015 None skin lesion Frequency of Episodes daily 12/25/2015 None Hospital Follow Up _ [facility]: diverticulitis 10/11/2015 None Hospital Follow Up Quality improving 10/11/2015 None Hospital Follow Up Onset of Symptom 2 weeks ago 10/11/2015 None Hospital Follow Up Onset and Resolution sudden in onset 10/11/2015 None Hospital Follow Up Onset and Resolution stable 10/11/2015 None toe pain due to infection Location medial third left toenail 08/24/2015 None toe pain due to infection Quality dull pain 08/24/2015 None toe pain due to infection Quality constant 08/24/2015 None toe pain due to infection Onset of Symptom 2 months ago 08/24/2015 None toe pain due to infection Pertinent Findings redness 08/24/2015 None toe pain due to infection Pertinent Findings swelling 08/24/2015 None edema Onset and Resolution gradual in onset 08/24/2015 None edema Limitation on Activities does not limit activities 08/24/2015 None edema Frequency of Episodes daily 08/24/2015 None toe pain due to infection Location medial third left toenail 08/20/2015 None toe pain due to infection Quality dull pain 08/20/2015 None toe pain due to infection Quality constant 08/20/2015 None toe pain due to infection Onset of Symptom 2 months ago 08/20/2015 None toe pain due to infection Pertinent Findings swelling 08/20/2015 None toe pain due to infection Pertinent Findings redness 08/20/2015 None edema Onset and Resolution gradual in onset 08/20/2015 None edema Limitation on Activities does not limit activities 08/20/2015 None edema Frequency of Episodes daily 08/20/2015 None blood pressure followup Quality stable 12/28/2014 None blood pressure followup Onset and Re solution ongoing 12/28/2014 None pain Quality constant 10/31/2014 None pain Quality stable 10/31/2014 None pain Quality aching 10/31/2014 None pain Quality burning 10/31/2014 None pain Onset and Resolution sudden in onset 10/31/2014 None pain Onset and Resolution resolved 10/31/2014 None pain Onset of Symptom 2 weeks ago 10/31/2014 None pain Limitation on Activities is incapacitating 10/31/2014 None pain Severity moderate 10/31/2014 None pain Severity improving 10/31/2014 None pain Pertinent Findings pain 10/31/2014 None pain Pertinent Findings tenderness 10/31/2014 None pain Location-Extremities on the right leg 10/02/2014 None pain Onset and Resolution resolved 10/02/2014 None pain Quality constant 10/02/2014 None pain Quality stable 10/02/2014 None pain Quality aching 10/02/2014 None pain Quality burning 10/02/2014 None pain Onset and Resolution sudden in onset 10/02/2014 None pain Onset of Symptom 2 weeks ago 10/02/2014 None pain Limitation on Activities is incapacitating 10/02/2014 None pain Pertinent Findings pain 10/02/2014 None pain Pertinent Findings tenderness 10/02/2014 None eye erythema Location on the right eye 10/02/2014 None eye erythema Quality acu te 10/02/2014 None eye erythema Onset and Resolution ongoing 10/02/2014 None eye erythema Severity mo derate 10/02/2014 None eye erythema Frequency of Episodes unchanged 10/02/2014 None pain Severity improving 10/02/2014 None pain Severity moderate 10/02/2014 None pain Location-Major on t he legs 09/21/2014 right more than left pain Quality stable 09/21/2014 None pain Onset and Resolution sudden in onset 09/21/2014 None pain Onset of Symptom 2 weeks ago 09/21/2014 None pain Limitation on Activities is incapacitating 09/21/2014 None pain Severity severe 09/21/2014 None pain Severity worsening 09/21/2014 None pain Pertinent Findings pain 09/21/2014 None pain Pertinent Findings tenderness 09/21/2014 None hyperlipidemia Onset of Symptom _ years ago 09/21/2014 None shortness of breath Quality intermittent 09/21/2014 None shortness of breath Onset and Resolution ongoing 09/21/2014 None shortness of breath Onset of Symptom during adulthood 09/21/2014 None shortness of breath Limitation on Ac tivities moderately limits activities 09/21/2014 None shortness of breath Frequency of Episodes unchanged 09/21/2014 None pain Quality constant 09/21/2014 None pain Quality aching 09/21/2014 None pain Quality burning 09/21/2014 None pain Color flesh-colored 09/21/2014 None eye erythema Location on the right eye 09/21/2014 None eye erythema Quality acu te 09/21/2014 None eye erythema Onset and Resolution ongoing 09/21/2014 None eye erythema Severity mo derate 09/21/2014 None eye erythema Frequency of Episodes unchanged 09/21/2014 None Advance Directives No Advance Directive data Encounters Encounter Performer Loca tion Codes Date [id number] EST. PATIENT, LEVEL III Diagnosis: Localized edema[ICD10: R60.0] Diagnosis: Varicose veins of right lower extremity with pain[ICD10: I83.811] [facility] CPT-4: 37537 06/10/2018 78086 EST. 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 PATIENT, LEVEL III Diagnosis: Cellulitis of left axilla[ICD10: L03.112] Diagnosis: Cellulitis of right axilla[ICD10: L03.111] Rox Alvarez MD, [facility] CPT-4: 00179 08/28/2017 [id number] EST. 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 PATIENT, LEVEL IV Diagnosis: Generalized anxiety disorder[ICD10: F41.1] Diagnosis: Major depressive disorder, single episode, moderate[ICD10: F32.1] Diagnosis: Diarrhea, unspecified[ICD10: R19.7] Rox Alvarez MD, [facility] CPT-4: 55617 04/21/2017 83559 EST. PATIENT, LEVEL IV Diagnosis: Generalized anxiety disorder[ICD10: F41.1] Diagnosis: Major depressive disorder, single episode, moderate[ICD10: F32.1] Diagnosis: Nausea[ICD10: R11.0] Diagnosis: Diarrhea, unspecified[ICD10: R19.7] Rox Alvarez MD, [facility] CPT-4: 83017 04/07/2017 ([id number]) 77961 EST. P ATIENT, LEVEL IV Diagnosis: Essential (primary) hypertension[ICD10: I10] Diagnosis: Nausea[ICD10: R11.0] Diagnosis: Other fecal abnormalities[ICD10: R19.5] Diagnosis: Tobacco use[ICD10: Z72.0] Selena Alvarez MD, [facility] CPT-4: 63434 01/27/2017 ([id number]) 38001 EST. P ATIENT, LEVEL III Diagnosis: Essential (primary) hypertension[ICD10: I10] Diagnosis: Chronic obstructive pulmonary disease, unspecified[ICD10: J44.9] Diagnosis: Rash and other nonspecific skin eruption[ICD10: R21] Selena Alvarez MD, [facility] CPT-4: 29176 11/25/2016 ([id number]) 01257 EST. P ATIENT, LEVEL III Diagnosis: Other sites of candidiasis[ICD10: B37.89] Selena Alvarez MD, [facility] CPT-4: 78893 10/15/2016 ([id number]) 51213 EST. P ATIENT, LEVEL IV Diagnosis: Essential (primary) hypertension[ICD10: I10] Diagnosis: Urinary tract infection, site not specified[ICD10: N39.0] Diagnosis: Localized edema[ICD10: R60.0] Selena Alvarez MD, [facility] CPT-4: 89291 09/17/2016 20576 EST. 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 PATIENT, LEVEL III Diagnosis: Other specified bacterial intestinal infections[ICD10: A04.8] Rox Alvarez MD, [facility] CPT-4: 33874 04/16/2016 58191 EST. PATIENT, LEVEL II Diagnosis: Pain in right foot[ICD10: M79.671] Rox Alvarez MD, [facility] CPT-4: 44318 01/21/2016 86059 EST. PATIENT, LEVEL III Diagnosis: Encounter for therapeutic drug level monitoring[ICD10: Z51.81] Diagnosis: Rash and other nonspecific skin eruption[ICD10: R21] Rox Alvarez MD, [facility] CPT-4: 79366 01/10/2016 39855 EST. PATIENT, LEVEL III Diagnosis: Rash and other nonspecific skin eruption[ICD10: R21] Rox Alvarez MD [facility] CPT-4: 57119 01/07/2016 ([id number]) Miscellaneou s no charge Diagnosis: Cutaneous abscess of left axilla[ICD10: L02.412] DANIELA Nixon MD CPT-4: 21214 01/02/2016 ([id number]) Miscellaneou s no charge Diagnosis: Cutaneous abscess of left axilla[ICD10: L02.412] Rox Alvarez MD [facility] CPT-4: 19092 01/01/2016 ([id number]) Miscellaneou s no charge Diagnosis: Cutaneous abscess of left axilla[ICD10: L02.412] Rox Alvarez MD [facility] CPT-4: 13387 12/31/2015 ([id number]) Patient adm itted to the hospital from clinic (NO CHARGE) Diagnosis: Cutaneous abscess of left axilla[ICD10: L02.412] Rox Alvarez MD [facility] CPT-4: 86040C 12/25/2015 18002 EST. 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 PATIENT, LEVEL IV Diagnosis: Cellulitis of left toe[ICD10: L03.032] Rox Alvarez MD [facility] CPT-4: 20597 08/20/2015 64908 EST. PATIENT, LEVEL III Diagnosis: Essential (primary) hypertension[ICD10: I10] Diagnosis: Peripheral vascular disease, unspecified[ICD10: I73.9] Diagnosis: Dermatitis, unspecified[ICD10: L30.9] Rox Alvarez MD, [facility] CPT- 4: 34063 12/28/2014 ([id number]) 42814 EST. P ATIENT, LEVEL III Diagnosis: ESSENTIAL HYPERTENSION[ICD9: 401.9] Diagnosis: PAD (peripheral artery disease)[ICD9: 443.9] Diagnosis: Anticoagulated on Coumadin[ICD9: V58.83] Emy Alvarez MD, [facility] CPT-4: 77241 10/31/2014 ([id number]) 00399 EST. P ATIENT, LEVEL III Diagnosis: PAD (peripheral artery disease)[ICD9: 443.9] Diagnosis: Anticoagulated on Coumadin[ICD9: V58.83] Diagnosis: SCLERITIS[ICD9: 379.00] Diagnosis: ESSENTIAL HYPERTENSION[ICD9: 401.9] Selena Alvarez MD, [facility] CPT- 4: 83503 10/02/2014 ([id number]) [facility] 4 Diagnosis: GOUT[ICD9: 274.9] Diagnosis: COPD (chronic obstructive pulmonary disease)[ICD9: 496] Diagnosis: PAD (peripheral artery disease)[ICD9: 443.9] Diagnosis: ESSENTIAL HYPERTENSION[ICD9: 401.9] Selena Alvarez MD, [facility] CPT- 4: 87337 09/21/2014 Plan of Care Planned Activity Notes C odes Status Date Visit Plan: Medicare Exam - today w e discussed the patients past history, immunizations, preventative exams/evaluations - colonoscopy, fecal occult blood testing, routine labs for renal function, glucose, cholesterol, osteoporosis evaluations, cardiovascular testing and cancer screenings. We have also discussed mental health and the signs/symptoms of depression. The patient was advised of home safety evaluations and the need to make sure that as the aging process continues, we need to be aware of different ways to make the home a safer place to reside. The patient has also been counseled that exercise is necessary - and of utmost importance as we age to help decrease fall risk and to maintain independece in the home. Today we discussed the need for the patient to create paperwork for Advanced directives as well as for the patient to provide this office with a copy of her DOP[employer] paperwork for health care surrogate. COPD - pt denies - no complaints at this time. CVD, CAD, hyperlipidemia, CHF, arrhythmias, vascular disease - managed by cardiology DM - no indication of DM per labs depression - increase lexapro to 20mg at night MG - pt denies history of myoneural disorders Colorectal cancer screening - cologuard ordered CKD - no indication of CKD per labs Hep C screening - will check labs 10/19/2018 Appointment: Rox Luciano WPtel: [address] [place] [address] - Annual Wellness Visit 10/19/2018 Patient Education: Patient Medication Summary Completed 10/19/2018 Appointment: Rox Luciano WPtel: [address] [place] [address] (15 min) Moderate 09/08/2018 Visit Plan: Edema - pt has been adv ised to elevate legs to prevent dependent edema, compression has been recommended to help to naturally decrease peripheral edema. Diuretic use has been discussed and pt has been i nstructed in appropriate use of such medication as necessary to further attempt to reduce peripheral edema. Varicose Veins - recommended thigh-high compression, elevation of lower legs while seated. Pt to consider treatment for varicose veins with vein specialist. 06/10/2018 Appointment: Rox Luciano WPtel: [address] [place] [address] (30 min) Complex 06/10/2018 Patient Education: Patient Medication Summary Completed 06/10/2018 Visit Plan: Chronic Pain Syndrome - pt has chronic pain - has been maintained on current medications, has not sought out other medications, only uses PRN pain medications as directed, and understands the consequences of over-medication. Hypertension - well controlled - continue with current medications, continue with no added salt diet. Pt has been encouraged to exercise daily. The pt has been advised to call the office if there are any acute concerns about change in blood pressure readings at home. Left leg amputation - continue PT 03/11/2018 Appointment: Rox Luciano WPtel: [address] [place] [address] (15 min) Moderate 03/11/2018 Patient Education: Patient Medication Summary Completed 03/11/2018 Appointment: Rox Luciano WPtel: [address] [facility] (30 min) Complex 11/17/2017 Visit Plan: Cellulitis bilateral ax illa - The patient was instructed to use the antibiotic ointment as per RX. The patient is to call for any change in symptoms, increase in size of the lesion, increase in pain, worsening redness, warmth, discharge. 08/28/2017 Visit Plan: Cellulitis bilateral ax illa - The patient was instructed to use the antibiotic ointment as per RX. The patient is to call for any change in symptoms, increase in size of the lesion, increase in pain, worsening redness, warmth, discharge. 08/28/2017 Visit Plan: Cellulitis bilateral ax illa - The patient was instructed to use the antibiotic ointment as per RX. The patient is to call for any change in symptoms, increase in size of the lesion, increase in pain, worsening redness, warmth, discharge. 08/28/2017 Appointment: [facility]el[facility] [facility] (30 min) Complex 08/28/2017 Patient Education: Patient Medication Summary Completed 08/28/2017 Visit Plan: Chronic Pain Syndrome - pt has chronic pain - has been maintained on current medications, has not sought out other medications, only uses PRN pain medications as directed, and understands the consequences of over-medication. Chronic Depression and anxiety - the pt has symptoms of chronic anxiety and depression that have been fairly well controlled since the last office visit. The pt has expected periods of exacerbation with abatement of the symptoms with change in situational exposure. No change in current medications. Hypertension - well controlled - continue with current medications, continue wi th no added salt diet. Pt has been encouraged to exercise daily. The pt has been advised to call the office if there are any acute concerns about change in blood pressure readings at home. Left leg amputation - continue PT 07/20/2017 Visit Plan: Chronic Pain Syndrome - pt has chronic pain - has been maintained on current medications, has not sought out other medications, only uses PRN pain medications as directed, and understands the consequences of over-medication. Chronic Depression and anxiety - the pt has symptoms of chronic anxiety and depression that have been fairly well controlled since the last office visit. The pt has expected periods of exacerbation with abatement of the symptoms with change in situational exposure. No change in current medications. Hypertension - well controlled - continue with current medications, continue wi th no added salt diet. Pt has been encouraged to exercise daily. The pt has been advised to call the office if there are any acute concerns about change in blood pressure readings at home. Left leg amputation - continue PT Addendum - Left leg amputation - Pt needs left leg prosthesis due to an amputation of the left leg in order to allow the patient to be as independent as possible and to have the highest quality of life possible as well as to be able to perform ADLs independently. 07/20/2017 Appointment: Rox Luciano WPtel: [facility] [facility] (30 min) Complex 07/20/2017 Patient Education: Patient Medication Summary Completed 07/20/2017 Referral: Stephanie Silva WPtel: Referral Initiated 05/04/2017 Care Plan: Referral Order SNOMED-CT : [id number] Pending 04/30/2017 Visit Plan: Chronic Depression and anxiety - the pt has symptoms of chronic anxiety and depression that have been fairly well controlled since the last office visit. The pt has expected periods of exacerbation with abatement of the symptoms with change in situational exposure. No change in current medications. Diarrhea - pt refuses colonoscopy - recommended bland diet, low fat diet, start on probiotic, and rehydrate with gatorade-like product. Pt to call if feeling worse, diarrhea becomes bloody, or does not improve with above recommendations. Pt to call for acute worsening of stomach upset or stomach pain. 04/21/2017 Appointment: Rox Luciano WPtel[facility] [address] [facility] (30 min) Complex 04/21/2017 Patient Education: Patient Medication Summary Completed 04/21/2017 Visit Plan: Anxiety - the patient h as uncontrolled anxiety and will benefit from an SSRI on a daily basis to attempt control of the symptoms of anxiety (tachycardia, overwhelming sensations, stress, insomnia, et c). I also believe that the patient will benefit from very low dose of prn benzodiazepine. Pt is aware of the risks and benefits of treatment with the above medications. Depression - uncontrolled - Pt has been counseled about the diagnosis of depression, the potential causes, and risks associated with the diagnosis. The pt denies suicidal ideation, or plans. The patient has been counseled about treatment options, and understands the risks associated with treatment of depression, as well as the risks associated with NOT treating the depression. I believe the pt will benefit from medical intervention and an antidepressant has been appropriately prescribed for this patient. Diarrhea - recommended bland diet, low fat diet, start on probiotic, and rehydrate with gatorade-like product. Pt to call if feeling worse, diarrhea becomes bloody, or does not improve with above recommendations. Pt to call for acute worsening of stomach upset or stomach pain. 04/07/2017 Appointment: Rox Luciano WPtel: [address] [facility] (30 min) Complex 04/07/2017 Patient Education: Patient Medication Summary Completed 04/07/2017 Appointment: Selena Alvarez WPtel: [address] [facility] (15 min) Moderate 02/26/2017 Visit Plan: Hypertension - well con trolled - continue with current medications, continue with no added salt diet. Pt has been encouraged to exercise daily. The pt has been advised to call the office if there are any acute concerns about change in blood pressure readings at home. Nausea/loose stools - suspect nausea is due to dietary intake - monitor symptoms. RX for zofran, recommended lactobacillus, monitor output, call if not improving. 01/27/2017 Appointment: [facility]varez [facility]el[facility] (15 min) Moderate 01/27/2017 Patient Education: Patient Medication Summary Completed 01/27/2017 Patient Education: Smoking and Tobacco Addiction Completed 01/27/2017 Patient Education: Hypertension Completed 01/27/2017 Visit Plan: Hypertension - well con trolled - continue with current medications, continue with no added salt diet. Pt has been encouraged to exercise daily. The pt has been advised to call the office if there are any acute concerns about change in blood pressure readings at home. COPD - chronic problem for this patient. We have reviewed chronic treatment strategy, symptom control, and plans for acute exacerbations. No changes today to the current treatment plan as the patient is stable, monitor for acute changes. Rash of groin - continue with nystatin 11/25/2016 Appointment: Selena Alvarez WPtel: [address] [facility] (15 min) Moderate 11/25/2016 Appointment: Selena Alvarez WPtel: [address] [facility] (15 min) Moderate 11/25/2016 Patient Education: Patient Medication Summary Completed 11/25/2016 Patient Education: Smoking and Tobacco Addiction Completed 11/25/2016 Patient Education: Hypertension Completed 11/25/2016 Visit Plan: Yeast/candidal of groin - rx for nystatin - monitor symptoms. call if not improving. Chronic Pain Syndrome - pt has chronic pain - has been maintained on current medications, has not sought out other me dications, only uses PRN pain medications as directed, and understands the consequences of over-medication. 10/15/2016 Appointment: Selena Alvarez WPtel: [address] [facility] (15 min) Moderate 10/15/2016 Patient Education: Patient Medication Summary Completed 10/15/2016 Patient Education: Smoking and Tobacco Addiction Completed 10/15/2016 Appointment: Rox Luciano WPtel: [id number] (30 min) Complex 09/18/2016 Visit Plan: Hypertension - well con trolled - continue with current medications, continue with no added salt diet. Pt has been encouraged to exercise daily. The pt has been advised to call the office if there are any acute concerns about change in blood pressure readings at home. Edema - pt has been advised to elevate legs to prevent dependent edema, compression has been recommended to help to naturally decrease peripheral edema. Diuretic use has been discussed and pt has been instructed in appropriate use of such medication as necessary to further attempt to reduce peripheral edema. UTI - change to levaquin - monitor symptoms. check INR on thursday09/17/2016 Patient Education: Patient Medication Summary Completed 09/17/2016 Patient Education: Smoking and Tobacco Addiction Completed 09/17/2016 Patient Education: Hypertension Completed 09/17/2016 Visit Plan: Pt is here for a face t o face mobility evaluation for a power wheelchair. Pt has poor balance and endurance due to amputation and ongoing infection. Pt is unable to use a cane or walker due to his amputation and ongoing wounds. The pt is unable to use a power scooter due to limit space. The patient has the mental and physical capabilities to operate a power wheelchair. The pt is able to transfer in and out of wheel chairs with little difficulty. This pt is unable to ambulate without any assistive device due to ongoing wounds and amputation. With the power wheelchair the pt will be better able to perform ADLs including feeding, grooming, moving from room to room safely, etc. Will refer to PT for mobility evaluation. 08/14/2016 Appointment: [facility] (30 min) Complex 08/14/2016 Patient Education: Patient Medication Summary Completed 08/14/2016 Patient Education: Smoking and Tobacco Addiction Completed 08/14/2016 Visit Plan: Gastroenteritis - discu ssed need to stay away from milk products while acutely ill with diarrhea and nausea and emesis as it may worsen the symptoms. Liquids initially until the nausea improves, then re commend to advance to bland diet for 1 day, then advance as tolerated. Call if symptoms not improved. Diarrhea - recommended bland diet, low fat diet, start on probiotic, and rehydrate with gatorade-like product. Pt to call if feeling worse, diarrhea becomes bloody, or does not improve with above recommendations. Pt to call for acute worsening of stomach upset or stomach pain. 04/16/2016 Appointment: Rox Luciano [facility]el[phone] [facility] (15 min) Moderate 04/16/2016 Patient Education: Patient Medication Summary Completed 04/16/2016 Patient Education: Smoking and Tobacco Addiction Completed 04/16/2016 Referral: Dr Arboleda Referral Completed 02/14/2016 Care Plan: Referral Order SNOMED-CT : [id number] Pending 01/29/2016 Visit Plan: Right foot pain - luis ng - pt states that when he walks he tends to lean to the right lateral side of his foot, denies any trauma - will refer for possible sole insert. Pt is to notify clinic if symptoms do not improve, if they worsen, or with any questions or concerns. 01/21/2016 Patient Education: Patient Medication Summary Completed 01/21/2016 Patient Education: Smoking and Tobacco Addiction Completed 01/21/2016 Visit Plan: Chronic Anticoagulant u se - Pt has been counseled about the anticoagulant, need for serial monitoring, and need for the pt to alert the physician as to any new bruising, or acute bleeding. Therapeutic goal for INR is between 2.0 and 3.5. Ongoing rash - was previously given Kenalog injection, pt states that it helped some, but that the rash did not resolve. Rash is on bilateral arms, low abdomen, low back, and legs - pt states that he itches it in his sleep, multiple small scabbed areas. Will send Prednisone taper, have pt use benadryl and pepcid. 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 01/10/2016 Appointment: Rox Luciano WPtel: [facility] (30 min) Complex 01/10/2016 Patient Education: Patient Medication Summary Completed 01/10/2016 Patient Education: Smoking and Tobacco Addiction Completed 01/10/2016 Visit Plan: Rash - pt states that h e is unsure if it from grass or the bactrim - pt states that he has 2 days left of the bactrim - will have pt stop the bactrim, start benadryl and pepcid - steroid shot given. The patient is to call for any change in symptoms, increase in size of the lesion, increase in pain. 01/07/2016 Appointment: Nurse Visit 01/07/2016 Patient Education: Patient Medication Summary Completed 01/07/2016 Patient Education: Smoking and Tobacco Addiction Completed 01/07/2016 Appointment: Nurse Visit 01/04/2016 Visit Plan: Left axilla abscess - p acking removed - minimal drainage noted, wound cleaned and dressing applied. 01/02/2016 Appointment: Nurse Visit 01/02/2016 Patient Education: Patient Medication Summary Completed 01/02/2016 Patient Education: Smoking and Tobacco Addiction Completed 01/02/2016 Visit Plan: Left axilla abscess - p acking removed - minimal drainage noted, repacked and dressing applied. 01/01/2016 Appointment: Nurse Visit 01/01/2016 Patient Education: Patient Medication Summary Completed 01/01/2016 Patient Education: Smoking and Tobacco Addiction Completed 01/01/2016 Visit Plan: Left axilla abscess - p acking removed - minimal purulent drainage noted, repacked and dressing applied. 12/31/2015 Appointment: Nurse Visit 12/31/2015 Patient Education: Patient Medication Summary Completed 12/31/2015 Patient Education: Smoking and Tobacco Addiction Completed 12/31/2015 Visit Plan: Left Axilla abscess and cellulitis - Pt states that he went to [facility] for the abscess and they started him on an antibiotic and told him to go home and drain it himself. Axilla to lateral chest wall is erythematous with large area of induration. 3 open sites with thick purulent drainage noted - Dr. Alvarez in to see pt - will admit for IV antibiotics and further I&D. 12/25/2015 Appointment: Emy Westbrook WPtel: [id number] [place] (15 min) Moderate 12/25/2015 Patient Education: Patient Medication Summary Completed 12/25/2015 Patient Education: Smoking and Tobacco Addiction Completed 12/25/2015 Care Plan: BMI Above normal followup MILES F-MGMT EDUC & TRAIN 1 PT Pending 10/12/2015 Visit Plan: Hospital follow up - Th is was a follow up appointment from the patient's hospitalization during which time Dr. Alvarez formulated the assessment and plan for the follow up on this patient's medical condition. Obesity - chronic issue with this patient. The pt has been counseled about diet changes, calorie restriction, and need to exercise. Pt will RTC in one month for weight check. Chronic Anticoagulant use - Pt has been counseled about the anticoagulant, need for serial monitoring, and need for the pt to alert the physician as to any new bruising, or acute bleeding. Therapeutic goal for INR is between 2.0 and 3.5. Cellulitis of the toe - continue with wound care management. 10/11/2015 Visit Plan: Hospital follow up - Th is was a follow up appointment from the patient's hospitalization during which time Dr. Alvarez formulated the assessment and plan for the follow up on this patient's medical condition. Obesity - chronic issue with this patient. The pt has been counseled about diet changes, calorie restriction, and need to exercise. Pt will RTC in one month for weight check. Chronic Anticoagulant use - Pt has been counseled about the anticoagulant, need for serial monitoring, and need for the pt to alert the physician as to any new bruising, or acute bleeding. Therapeutic goal for INR is between 2.0 and 3.5. Cellulitis of the toe - continue with wound care management. 10/11/2015 Appointment: Rox Luciano WPtel: [facility]5 [facility] (30 min) Complex 10/11/2015 Patient Education: Patient Medication Summary Completed 10/11/2015 Patient Education: Smoking and Tobacco Addiction Completed 10/11/2015 Patient Education: Obesity Completed 10/11/2015 Referral: Gavino Navarro they are g oing to call if they get him in before if not we will call Dr shook Initiated 09/27/2015 Appointment: Emy Westbrook WPtel: [address] [place] [id number] (15 min) Moderate 08/24/2015 Patient Education: Patient Medication Summary Completed 08/24/2015 Patient Education: Smoking and Tobacco Addiction Completed 08/24/2015 Patient Education: Patient Medication Summary Completed 08/23/2015 Appointment: Emy Westbrook WPtel: [address] [place], [place] [phone] (30 min) Complex 08/22/2015 Referral: [facility] Referral Initiated 08/22/2015 Visit Plan: Pt on chronic anticoagu lation. Dr. Solis had given pt orders for PT INR several months ago, though pt did not get the lab work done. Pt states that he is still taking the warfarin. Denies any bleeding, dark tarry stools, or bloody stools. Will check PT INR. Pt educated on the importance of regularly checking his labs while on the coumadin. The pt is to have labs done as appropriate to monitor medication levels and is to report if they start to feel as if their heart rate is becoming uncontrolled. Abscess/Cellulitis - Will get X-ray and check labs, will schedule MRI and refer to wound care DEMETRICE. The patient was instructed in appropriate wound care. The patient was instructed to use the antibiotic as per RX. The patient is to call for any change in symptoms, increase in size of the lesion, increase in pain. 08/20/2015 Patient Education: Patient Medication Summary Completed 08/20/2015 Patient Education: Smoking and Tobacco Addiction Completed 08/20/2015 Appointment: (30 min) Complex 01/25/2015 Visit Plan: Hypertension - well con trolled - continue with current medications, continue with no added salt diet. Pt has been encouraged to exercise daily. The pt has been advised to call the office if there are any acute concerns about change in blood pressure readings at home. Dermatitis - Will send steroid cream for arms - do not scratch at arms. Notify clinic if symptoms worsen, or with questions or concerns. 12/28/2014 Appointment: (15 min) Moderate 12/28/2014 Patient Education: Patient Medication Summary Completed 12/28/2014 Patient Education: Hypertension Completed 12/28/2014 Appointment: Selena Alvarez WPtel: [address] [place], [place] [id number] Follow up 12/20/2014 Visit Plan: Hypertension - well con trolled - continue with current medications, continue with no added salt diet. Pt has been encouraged to exercise daily. The pt has been advised to call the office if there are any acute concerns about change in blood pressure readings at home. 10/31/2014 Appointment: (15 min) Moderate 10/31/2014 Patient Education: Patient Medication Summary Completed 10/31/2014 Patient Education: Hypertension Completed 10/31/2014 Visit Plan: Peripheral Vascular Dis ease- Symptoms improved. PT/INR today. Continue to monitor labs frequently d/t initiation of allopurinol. Dr. Solis's office notified. Hypertension - well controlled - continue with current medications, continue with no added salt diet. Pt has been encouraged to exercise daily. The pt has been advised to call the office if there are any acute concerns about change in blood pressure readings at home. Scleritis- Dr. Latham consult. Pt to go directly to office immediately upon leaving this appointment. Verbalizes understanding. 10/02/2014 Appointment: (15 min) Moderate 10/02/2014 Patient Education: Patient Medication Summary Completed 10/02/2014 Patient Education: Hypertension Completed 10/02/2014 Visit Plan: Dr. Alvarez in to see patient. Gout Attack - pt given RX for uric Acid Level, and rx for medication for treatment of symptoms. Pt to call if symptoms do not improve, and pt to be given results of labs when available. Peripheral Vascular Disease- Check labs today, venous doppler, appt with Dr. Holger SURESH COPD - chronic problem for this patient. We have reviewed chronic treatment strategy, symptom control, and plans for acute exacerbations. No changes today to the current treatment plan as the patient is stable, monitor for acute changes. 09/21/2014 Visit Plan: Dr. Alvarez in to see patient. Gout Attack - pt given RX for uric Acid Level, and rx for medication for treatment of symptoms. Pt to call if symptoms do not improve, and pt to be given results of labs when available. Peripheral Vascular Disease- Check labs today, venous doppler, appt with Dr. Holger SURESH COPD - chronic problem for this patient. We have reviewed chronic treatment strategy, symptom control, and plans for acute exacerbations. No changes today to the current treatment plan as the patient is stable, monitor for acute changes. Hypertension - well controlled - continue with current medic ations, continue with no added salt diet. Pt has been encouraged to exercise daily. The pt has been advised to call the office if there are any acute concerns about change in blood pressure readings at home. 09/21/2014 Appointment: (S) New Patient 09/21/2014 Patient Education: Patient Medication Summary Completed 09/21/2014 Patient Education: Hypertension Completed 09/21/2014 Care Plan: Referral Order SNOMED-CT : [id number] Ordered 09/21/2014 Appointment: Sel[id number] [place] (S) New Patient 09/20/2014 Referral: Martinez Wren [facility]el[facility] [address] [facility] [place] Referral Initiated Referral: Gavino Navarro Referral Initiated Referral: [facility] [place] Referral Initiated Referral: Dr Arboleda Referral Completed Referral: Stephanie Silva WPtel: Referral Initiated Instructions Comment 5mg daily except Thu take 6mg on Thursday, repeat lab on Thursday. . Hospital follow up - This was a follow up appointment from the patient's hospitalization during which time Dr. Alvarez formulated the assessment and plan for the follow up on this patient's medical condition. Obesity - chronic issue with this patient. The pt has been counseled about diet changes, calorie restriction, and need to exercise. Pt will RTC in one month for weight check. Chronic Anticoagulant use - Pt has been counseled about the anticoagulant, need for serial monitoring, and need for the pt to alert the physician as to any new bruising, or acute bleeding. Therapeutic goal for INR is between 2.0 and 3.5. Cellulitis of the toe - continue with wound care management. . Left Axilla absces s and cellulitis - Pt states [facility] and they started him on an antibiotic and told him to go home and drain it himself. Axilla to lateral chest wall is erythematous with large area of induration. 3 open sites with thick purulent drainage noted - Dr. Alvarez in to see pt - will admit for IV antibiotics and further I&D. . Pt is here for a f yanira to face mobility evaluation for a power wheelchair. Pt has poor balance and endurance due to amputation and ongoing infection. Pt is unable to use a cane or walker due to his amputation and ongoing wounds. The pt is unable to use a power scooter due to limit space. The patient has the mental and physical capabilities to operate a power wheelchair. The pt is able to transfer in and out of wheel chairs with little difficulty. This pt is unable to ambulate without any assistive device due to ongoing wounds and amputation. With the power wheelchair the pt will be better able to perform ADLs including feeding, grooming, moving from room to room safely, etc. Will refer to PT for mobility evaluation. You need to see Dr. Holger SURESH. We will call and schedule an appointment. Start Allopurinol in the morning. One by mouth everyday, take in the morning, take coumadin at night. . Dr. Alvarez in to see patient. Gout Attack - pt given RX for uric Acid Level, and rx for medication for treatment of symptoms. Pt to call if symptoms do not improve, and pt to be given results of labs when available. Peripheral Vascular Disease- Check labs today, venous doppler, appt with Dr. Holger SURESH COPD - chronic problem for this patient. We have reviewed chronic treatment strategy, symptom control, and plans for acute exacerbations. No changes today to the current treatment plan as the patient is stable, monitor for acute changes. . Dr. Alvarez in to see patient. Gout Attack - pt given RX for uric Acid Level, and rx for medication for treatment of symptoms. Pt to call if symptoms do not improve, and pt to be given results of labs when available. Peripheral Vascular Disease- Check labs today, venous doppler, appt with Dr. Holger SURESH COPD - chronic problem for this patient. We have reviewed chronic treatment strategy, symptom control, and plans for acute exacerbations. No changes today to the current treatment plan as the patient is stable, monitor for acute changes. Hypertension - well controlled - continue with current medications, continue with no added salt diet. Pt has been encouraged to exercise daily. The pt has been advised to call the office if there are any acute concerns about change in blood pressure readings at home. . Left axilla absces s - packing removed - minimal drainage noted, repacked and dressing applied. Will send steroid cr eam for arms. Get blood work that has been ordered by Dr. Solis. . Hypertension - well controlled - tori nue with current medications, continue with no added salt diet. Pt has been encouraged to exercise daily. The pt has been advised to call the office if there are any acute concerns about change in blood pressure readings at home. Dermatitis - Will send steroid cream for arms - do not scratch at arms. Notify clinic if symptoms worsen, or with questions or concerns. . Yeast/candidal of groin - rx for nystatin - monitor symptoms. call if not improving. Chronic Pain Syndrome - pt has chronic pain - has been maintained on current medications, has not sought out other medications, only uses PRN pain medications as directed, and understands the consequences of over-medication. We will check PT/INR today Go directly to Dr. Latham's today for evaluation of right eye. . Peripheral Vascular Disease- Symptoms improved. PT/INR today. Continue to monitor labs frequently d/t initiation of allopurinol. Dr. Solis's office notified. Hypertension - well controlled - continue with current medications, continue with no added salt diet. Pt has been encouraged to exercise daily. The pt has been advised to call the office if there are any acute concerns about change in blood pressure readings at home. Scleritis- Dr. Latham consult. Pt to go directly to office immediately upon leaving this appointment. Verbalizes understanding. GO TO YOUR APPOINTME NT WITH DR. NAVARRO ON THURSDAY AT 1230. CONTINUE WITH THE BACTRIM 1 PILL TWICE A DAY. WE WILL CHECK YOUR COUMADIN LEVEL TODAY AND SEE IF WE NEED TO ADJUST IT. WE WILL CALL DR. DOMINGO OFFICE AND SEE WHEN YOUR APPOINTMENT IS. CALL US WITH ANY QUESTIONS OR CONCERNS. . . Right foot pain - ongoing - pt states that when he walks he tends to lean to the right lateral side of his foot, denies any trauma - will refer for possible sole insert. Pt is to notify clinic if symptoms do not improve, if they worsen, or with any questions or concerns. . Hypertension - wel l controlled - continue with current medications, continue with no added salt diet. Pt has been encouraged to exercise daily. The pt has been advised to call the office if there are any acute concerns about change in blood pressure readings at home. . Chronic Pain Syndr ome - pt has chronic pain - has been maintained on current medications, has not sought out other medications, only uses PRN pain medications as directed, and understands the consequences of over-medication. Hypertension - well controlled - continue with current medications, continue with no added salt diet. Pt has been encouraged to exercise daily. The pt has been advised to call the office if there are any acute concerns about change in blood pressure readings at home. Left leg amputation - continue PT . Pt on chronic anti coagulation. Dr. Solis had given pt orders for PT INR several months ago, though pt did not get the lab work done. Pt states that he is still taking the warfarin. Denies any bleeding, dark tarry stools, or bloody stools. Will check PT INR. Pt educated on the importance of regularly checking his labs while on the coumadin. The pt is to have labs done as appropriate to monitor medication levels and is to report if they start to feel as if their heart rate is becoming uncontrolled. Abscess/Cellulitis - Will get X-ray and check labs, will schedule MRI and refer to wound care DEMETRICE. The patient was instructed in appropriate wound care. The patient was instructed to use the antibiotic as per RX. The patient is to call for any change in symptoms, increase in size of the lesion, increase in pain. . Chronic Pain Syndr ome - pt has chronic pain - has been maintained on current medications, has not sought out other medications, only uses PRN pain medications as directed, and understands the consequences of over-medication. Chronic Depression and anxiety - the pt has symptoms of chronic anxiety and depression that have been fairly well controlled since the last office visit. The pt has expected periods of exacerbation with abatement of the symptoms with change in situational exposure. No change in current medications. Hypertension - well controlled - continue with current medications, continue with no added salt diet. Pt has been encouraged to exercise daily. The pt has been advised to call the office if there are any acute concerns about change in blood pressure readings at home. Left leg amputation - continue PT . Chronic Pain Syndr ome - pt has chronic pain - has been maintained on current medications, has not sought out other medications, only uses PRN pain medications as directed, and understands the consequences of over-medication. Chronic Depression and anxiety - the pt has symptoms of chronic anxiety and depression that have been fairly well controlled since the last office visit. The pt has expected periods of exacerbation with abatement of the symptoms with change in situational exposure. No change in current medications. Hypertension - well controlled - continue with current medications, continue with no added salt diet. Pt has been encouraged to exercise daily. The pt has been advised to call the office if there are any acute concerns about change in blood pressure readings at home. Left leg amputation - continue PT Addendum - Left leg amputation - Pt needs left leg prosthesis due to an amputation of the left leg in order to allow the patient to be as independent as possible and to have the highest quality of life possible as well as to be able to perform ADLs independently. . Left axilla absces s - packing removed - minimal drainage noted, wound cleaned and dressing applied. . Left axilla absces s - packing removed - minimal purulent drainage noted, repacked and dressing applied. . Hypertension - wel l controlled - continue with current medications, continue with no added salt diet. Pt has been encouraged to exercise daily. The pt has been advised to call the office if there are any acute concerns about change in blood pressure readings at home. Edema - pt has been advised to elevate legs to prevent dependent edema, compression has been recommended to help to naturally decrease peripheral edema. Diuretic use has been discussed and pt has been instructed in appropriate use of such medication as necessary to further attempt to reduce peripheral edema. UTI - change to levaquin - monitor symptoms. check INR on thursday probiotics - culture [facility] or [facility]. . Gastroenteritis - discussed need to stay away from milk products while acutely ill with diarrhea and nausea and emesis as it may worsen the symptoms. Liquids initially until the nausea improves, then recommend to advance to bland diet for 1 day, then advance as tolerated. Call if symptoms not improved. Diarrhea - recommended bland diet, low fat diet, start on probiotic, and rehydrate with gatorade-like product. Pt to call if feeling worse, diarrhea becomes bloody, or does not improve with above recommendations. Pt to call for acute worsening of stomach upset or stomach pain. . Cellulitis bilater al axilla - The patient was instructed to use the antibiotic ointment as per RX. The patient is to call for any change in symptoms, increase in size of the lesion, increase in pain, worsening redness, warmth, discharge. . Cellulitis bilater al axilla - The patient was instructed to use the antibiotic ointment as per RX. The patient is to call for any change in symptoms, increase in size of the lesion, increase in pain, worsening redness, warmth, discharge. . Cellulitis bilater al axilla - The patient was instructed to use the antibiotic ointment as per RX. The patient is to call for any change in symptoms, increase in size of the lesion, increase in pain, worsening redness, warmth, discharge. 5mg daily except Thu take 6mg on Thursday, repeat lab on Thursday. . Hospital follow up - This was a follow up appointment from the patient's hospitalization during which time Dr. Alvarez formulated the assessment and plan for the follow up on this patient's medical condition. Obesity - chronic issue with this patient. The pt has been counseled about diet changes, calorie restriction, and need to exercise. Pt will RTC in one month for weight check. Chronic Anticoagulant use - Pt has been counseled about the anticoagulant, need for serial monitoring, and need for the pt to alert the physician as to any new bruising, or acute bleeding. Therapeutic goal for INR is between 2.0 and 3.5. Cellulitis of the toe - continue with wound care management. . Chronic Anticoagul ant use - Pt has been counseled about the anticoagulant, need for serial monitoring, and need for the pt to alert the physician as to any new bruising, or acute bleeding. Therapeutic goal for INR is between 2.0 and 3.5. Ongoing rash - was previously given Kenalog injection, pt states that it helped some, but that the rash did not resolve. Rash is on bilateral arms, low abdomen, low back, and legs - pt states that he itches it in his sleep, multiple small scabbed areas. Will send Prednisone taper, have pt use benadryl and pepcid. 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 . Chronic Depression and anxiety - the pt has symptoms of chronic anxiety and depression that have been fairly well controlled since the last office visit. The pt has expected periods of exacerbation with abatement of the symptoms with change in situational exposure. No change in current medications. Diarrhea - pt refuses colonoscopy - recommended bland diet, low fat diet, start on probiotic, and rehydrate with gatorade-like product. Pt to call if feeling worse, diarrhea becomes bloody, or does not improve with above recommendations. Pt to call for acute worsening of stomach upset or stomach pain. . Rash - pt states t hat he is unsure if it from grass or the bactrim - pt states that he has 2 days left of the bactrim - will have pt stop the bactrim, start benadryl and pepcid - steroid shot given. The patient is to call for any change in symptoms, increase in size of the lesion, increase in pain. lactobacillus - PROB IOTIC - take three times daily x 2 weeks then decrease to daily . Hypertension - well controlled - tori nue with current medications, continue with no added salt diet. Pt has been encouraged to exercise daily. The pt has been advised to call the office if there are any acute concerns about change in blood pressure readings at home. Nausea/loose stools - suspect nausea is due to dietary intake - monitor symptoms. RX for zofran, recommended lactobacillus, monitor output, call if not improving. Wear SUMMER hose during the day keep foot elevated when sitting take lasix and potassium daily x 5 days let your hog killer know that you are having some swelling. Will give you a script for Keflex - antibiotic - to start with any symptoms of infection. let us know with any questions or concerns. . Edema - pt has been advised to elevate legs to prevent dependent edema, compression has been recommended to help to naturally decrease peripheral edema. Diuretic use has been discussed and pt has been instructed in appropriate use of such medication as necessary to further attempt to reduce peripheral edema. Varicose Veins - recommended thigh-high compression, elevation of lower legs while seated. Pt to consider treatment for varicose veins with vein specialist. . Medicare Exam - to day we discussed the patients past history, immunizations, preventative exams/evaluations - colonoscopy, fecal occult blood testing, routine labs for renal function, glucose, cholesterol, osteoporosis evaluations, cardiovascular testing and cancer screenings. We have also discussed mental health and the signs/symptoms of depression. The patient was advised of home safety evaluations and the need to make sure that as the aging process continues, we need to be aware of different ways to make the home a safer place to reside. The patient has also been counseled that exercise is necessary - and of utmost importance as we age to help decrease fall risk and to maintain independece in the home. Today we discussed the need for the patient to create paperwork for Advanced directives as well as for the patient to provide this office with a copy of her DOP[employer] paperwork for health care surrogate. COPD - pt denies - no complaints at this time. CVD, CAD, hyperlipidemia, CHF, arrhythmias, vascular disease - managed by cardiology DM - no indication of DM per labs depression - increase lexapro to 20mg at night MG - pt denies history of myoneural disorders Colorectal cancer screening - cologuard ordered CKD - no indication of CKD per labs Hep C screening - will check labs will refer to Dr. Edgar jordan will check stool culture will start flagyl will call for labs start lexapro at night follow up in 2 weeks - sooner if needed . Anxiety - the patient has uncontrolled anxiety and will benefit from an SSRI on a daily basis to attempt control of the symptoms of anxiety (tachycardia, overwhelming sensations, stress, insomnia, etc). I also believe that the patient will benefit from very low dose of prn benzodiazepine. Pt is aware of the risks and benefits of treatment with the above medications. Depression - uncontrolled - Pt has been counseled about the diagnosis of depression, the potential causes, and risks associated with the diagnosis. The pt denies suicidal ideation, or plans. The patient has been counseled about treatment options, and understands the risks associated with treatment of depression, as well as the risks associated with NOT treating the depression. I believe the pt will benefit from medical intervention and an antidepressant has been appropriately prescribed for this patient. Diarrhea - recommended bland diet, low fat diet, start on probiotic, and rehydrate with gatorade-like product. Pt to call if feeling worse, diarrhea becomes bloody, or does not improve with above recommendations. Pt to call for acute worsening of stomach upset or stomach pain. . Hypertension - wel l controlled - continue with current medications, continue with no added salt diet. Pt has been encouraged to exercise daily. The pt has been advised to call the office if there are any acute concerns about change in blood pressure readings at home. COPD - chronic problem for this patient. We have reviewed chronic treatment strategy, symptom control, and plans for acute exacerbations. No changes today to the current treatment plan as the patient is stable, monitor for acute changes. Rash of groin - continue with nystatin
--- OUTSIDE RECORDS SUMMARY | 2019-08-20 18:08 | XMS REPORT | CCD ---
Author Author Bony Alvarez Organization Selena Alvarez MD, [facility] Address [address] [place] [address] Phone Care Team Providers Care Operations Support Specialist Name Role Phone PP Unavailable CCM Unavailable Summary Purpose Interface Exchange Insurance Providers Payer name Policy type / Coverage type Covered republican ID Effective Begin Date Effective End Date [facility] Commercial Insurance [id number] 2017 Unknown Family history Father Diagnosis Age At Onset Hyperlipidemia Unknown Coronary Artery Disease Unknown Stroke Unknown lung cancer Unknown Cancer Unknown Congestive heart failure Unknown Mother Diagnosis Age At Onset Hypertension Unknown kidney disease Unknown Cancer Unknown Stroke Unknown Hyperlipidemia Unknown Coronary Artery Disease Unknown Congestive heart failure Unknown Social History Social History Element Codes Description Effective Dates Tobacco history SNOMED CT: 506345622928289 Current some days smoker 09/21/2014 Allergies, Adverse [...] V67.59 ICD-10: Z09 Active 10/10/2015 Unknown Other long term care phlebotomist (cur rent) drug therapy ICD-9: V58.69 ICD-10: [...] findings ICD-9: V70.0 ICD-10: Z00.01 10/19/2018 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 ICD-10: [...] ICD-9: V67.59 ICD-10: Z09 10/10/2015 Active Other fdc (cur rent) drug therapy ICD-9: V58.69 ICD-10: [...] HYPERTENSION ICD-9: 401.9 09/20/2014 Active PAD (peripheral jorge luis ry disease) ICD-9: 443.9 09/20/2014 Active SCLERITIS ICD-9: 379.00 10/01/2014 Active Hypertension Unknown 09/21/2014 Active COPD (chronic obstru ctive pulmonary disease) ICD-9: 496 09/20/2014 Active GOUT ICD-9: 274.9 09/20/2014 Active Medications Medication Codes Instruc tions Start Date Stop Date Sta tus Fill Instructions potassium chloride E R 20 mEq tablet,extended release RxNorm: 626095 Tablet(s) TAKE ONE TABLET BY MOUTH DAILY WHEN TAKING FUROSEMIDE NEEDED 10/19/2018 04/16/2019 Active pt would like a capsule instead of a tab let Lexapro 20 mg tablet RxNorm: 705495 1 Tablet(s) PO QHS 10/19/2018 11/17/2018 Active Pepcid 20 mg tablet RxNorm: 575088 TAKE ONE TABLET BY MOUTH TWICE A DAY 10/07/2018 01/04/2019 Ac tive gabapentin 300 mg ca psule RxNorm: 421988 TAKE ONE CAPSULE BY M OUT[facility] THREE TIMES A DAY 10/07/2018 03/05/2019 Ac tive hydrocodone 7.5 mg-a cetaminophen 325 mg tablet RxNorm: 556693 1 Tablet(s) PO QID as needed 09/16/2018 10/15/2018 Inactive furosemide 40 mg tablet RxNorm: 017394 TAKE ONE TABLET BY MOUTH DAILY NEEDED FOR SWELLING 09/10/2018 02/06/2019 Active hydrocodone 7.5 mg-a cetaminophen 325 mg tablet RxNorm: 155648 1 Tablet(s) PO QID as needed 08/18/2018 09/15/2018 Inactive Lexapro 10 mg tablet RxNorm: 833167 TAKE ONE TABLET BY MOUTH AT BEDTIME 08/03/2018 10/18/2018 In active hydrocodone 7.5 mg-a cetaminophen 325 mg tablet RxNorm: 370428 1 Tablet(s) PO QID as needed 07/15/2018 08/13/2018 Inactive Keflex 500 mg capsule RxNorm: 395153 1 Capsule(s) PO TID 06/11/2018 06/17/2018 Inactive Pepcid 20 mg tablet RxNorm: 046500 TAKE ONE TABLET BY MOUTH TWICE A DAY 05/25/2018 09/21/2018 In active hydrocodone 7.5 mg-a cetaminophen 325 mg tablet RxNorm: 766051 1 Tablet(s) PO QID as needed 05/19/2018 06/17/2018 Inactive hydrocodone 7.5 mg-a cetaminophen 325 mg tablet RxNorm: 483067 1 Tablet(s) PO QID as needed 04/19/2018 05/18/2018 Inactive allopurinol 100 mg t ablet RxNorm: 701023 TAKE ONE TABLET BY MO [facility] DAILY 04/06/2018 03/01/2019 Ac tive hydrocodone 7.5 mg-a cetaminophen 325 mg tablet RxNorm: 994795 1 Tablet(s) PO QID as needed 03/11/2018 04/09/2018 Inactive potassium chloride E R 20 mEq tablet,extended release RxNorm: 343290 Tablet(s) TAKE ONE TABLET BY MOUTH DAILY WHEN TAKING FUROSEMIDE NEEDED 03/05/2018 08/31/2018 Inactive gabapentin 300 mg ca psule RxNorm: 056412 TAKE ONE CAPSULE BY M OUT[facility] THREE TIMES A DAY 03/04/2018 10/06/2018 Inactive hydrocodone 7.5 mg-a cetaminophen 325 mg tablet RxNorm: 054668 1 Tablet(s) PO QID as needed 02/18/2018 03/10/2018 Inactive hydrocodone 7.5 mg-a cetaminophen 325 mg tablet RxNorm: 267753 1 Tablet(s) PO QID as needed 01/19/2018 02/17/2018 Inactive hydrocodone 7.5 mg-a cetaminophen 325 mg tablet RxNorm: 577561 1 Tablet(s) PO QID as needed 12/16/2017 01/14/2018 Inactive Pepcid 20 mg tablet RxNorm: 672525 Tablet(s) TAKE ONE TABLET BY MOUTH TWICE A DAY 12/08/2017 05/06/2018 Inactive hydrocodone 7.5 mg-a cetaminophen 325 mg tablet RxNorm: 750612 1 Tablet(s) PO QID as needed 11/18/2017 12/15/2017 Inactive gabapentin 300 mg ca psule RxNorm: 538713 Capsule(s) TAKE ONE C APSULE BY MOUTH THREE TIMES A DAY 11/11/2017 03/03/2018 Inactive gabapentin 300 mg ca psule RxNorm: 357714 TAKE ONE CAPSULE BY M OUT[facility] THREE TIMES A DAY 11/10/2017 11/10/2017 Inactive hydrocodone 7.5 mg-a cetaminophen 325 mg tablet RxNorm: 558325 1 Tablet(s) PO QID as needed 10/19/2017 11/17/2017 Inactive hydrocodone 7.5 mg-a cetaminophen 325 mg tablet RxNorm: 569469 1 Tablet(s) PO QID as needed 09/16/2017 10/15/2017 Inactive doxycycline hyclate 100 mg capsule RxNorm: 5557014 1 Capsule(s) PO BID 08/28/2017 09/06/2017 In active hydrocodone 7.5 mg-a cetaminophen 325 mg tablet RxNorm: 529593 1 Tablet(s) PO QID as needed 08/21/2017 09/15/2017 Inactive Lexapro 10 mg tablet RxNorm: 304685 TAKE ONE TABLET BY MOUTH AT BEDTIME 08/02/2017 07/27/2018 In active Zyrtec 10 mg tablet RxNorm: 0314873 1 Tablet(s) PO daily 07/20/2017 11/16/2017 Inactive hydrocodone 7.5 mg-a cetaminophen 325 mg tablet RxNorm: 699239 1 Tablet(s) PO QID as needed 07/20/2017 09/15/2017 Inactive furosemide 40 mg tablet RxNorm: 537056 Tablet(s) TAKE ONE TABLET BY MOUTH DAILY NEEDED FOR SWELLING 07/08/2017 01/03/2018 Inactive Pepcid 20 mg tablet RxNorm: 333777 TAKE ONE TABLET BY MOUTH TWICE A DAY 06/29/2017 11/25/2017 In active gabapentin 300 mg ca psule RxNorm: 171562 TAKE ONE CAPSULE BY [facility] THREE TIMES A DAY 06/29/2017 10/26/2017 Inactive hydrocodone 7.5 mg-a cetaminophen 325 mg tablet RxNorm: 029526 1 Tablet(s) PO QID as needed 06/18/2017 07/17/2017 Inactive hydrocodone 7.5 mg-a cetaminophen 325 mg tablet RxNorm: 787228 1 Tablet(s) PO QID as needed 05/18/2017 06/16/2017 Inactive hydrocodone 7.5 mg-a cetaminophen 325 mg tablet RxNorm: 680263 1 Tablet(s) PO QID as needed 04/21/2017 05/17/2017 Inactive hyoscyamine 0.125 mg sublingual tablet RxNorm: 4483683 1 Tablet(s) SL TID a s needed 04/21/2017 04/25/2017 In active Lexapro 10 mg tablet RxNorm: 625519 1 Tablet(s) PO QHS 04/21/2017 07/19/2017 Inactive Flagyl 500 mg tablet RxNorm: 268295 1 Tablet(s) PO TID 04/07/2017 04/16/2017 Inactive Lexapro 10 mg tablet RxNorm: 868051 1 Tablet(s) PO QHS 04/07/2017 04/20/2017 Inactive hydrocodone 7.5 mg-a cetaminophen 325 mg tablet RxNorm: 017480 1 Tablet(s) PO QID as needed 03/24/2017 04/20/2017 Inactive allopurinol 100 mg t ablet RxNorm: 987014 TAKE ONE TABLET BY MO [facility] DAILY 03/10/2017 03/04/2018 In active hydrocodone 7.5 mg-a cetaminophen 325 mg tablet RxNorm: 222217 1 Tablet(s) PO QID as needed 02/11/2017 03/12/2017 Inactive gabapentin 300 mg ca psule RxNorm: 803642 TAKE ONE CAPSULE BY M [facility] THREE TIMES A DAY 02/02/2017 06/28/2017 Inactive Zofran ODT 4 mg disi ntegrating tablet RxNorm: 059505 1 Tablet(s) PO QID as needed nausea and vomitting 01/27/2017 No Stop Date Active hydrocodone 7.5 mg-a cetaminophen 325 mg tablet RxNorm: 076922 1 Tablet(s) PO QID as needed 01/13/2017 02/10/2017 Inactive potassium chloride E R 20 mEq tablet,extended release RxNorm: 420194 TAKE ONE TABLET BY MOUTH DAILY WHEN TAKING FUROSEMIDE NEEDED 01/12/2017 07/10/2017 Inactive furosemide 40 mg tablet RxNorm: 205892 TAKE ONE TABLET BY MOUTH DAILY NEEDED FOR SWELLING 01/12/2017 07/09/2017 Inactive promethazine 25 mg t ablet RxNorm: 983035 TAKE ONE TABLET BY MO [facility] THREE TIMES A DAY NEEDED FOR NAUSEA AND VOMITING 01/12/2017 01/31/2017 Inactive promethazine 25 mg t ablet RxNorm: 716060 1 Tablet(s) PO TID as needed nausea and vomitting 01/06/2017 01/11/2017 Inactive Lomotil 2.5 mg-0.025 mg tablet RxNorm: 6389014 1-2 Tablet(s) PO BID as needed diarrhea 01/06/2017 01/05/2017 Inactive Lomotil 2.5 mg-0.025 mg tablet RxNorm: 9001116 1-2 Tablet(s) PO BID as needed diarrhea 01/06/2017 01/07/2017 Inactive Pepcid 20 mg tablet RxNorm: 445816 1 Tablet(s) PO BID 12/19/2016 06/16/2017 Inactive Pepcid 20 mg tablet RxNorm: 910325 1 Tablet(s) PO BID 12/16/2016 12/18/2016 Inactive hydrocodone 7.5 mg-a cetaminophen 325 mg tablet RxNorm: 061692 1 Tablet(s) PO QID as needed 12/16/2016 01/12/2017 Inactive hydrocodone 7.5 mg-a cetaminophen 325 mg tablet RxNorm: 726600 1 Tablet(s) PO QID as needed 11/18/2016 12/15/2016 Inactive allopurinol 100 mg t ablet RxNorm: 583682 TAKE ONE TABLET BY [facility] DAILY 10/29/2016 02/25/2017 In active hydrocodone 7.5 mg-a cetaminophen 325 mg tablet RxNorm: 122441 1 Tablet(s) PO QID as needed 10/15/2016 11/13/2016 Inactive nystatin 100,000 uni t/gram topical cream RxNorm: 100130 1 Gram(s) TOP QID 10/15/2016 11/25/2016 In active nystatin 100,000 uni t/gram topical powder RxNorm: 031153 1 Gram(s) TOP TID TO GROIN OR AFFECTED AREA 10/14/2016 No Stop Date Active hydrocodone 7.5 mg-a cetaminophen 325 mg tablet RxNorm: 229720 1 Tablet(s) PO QID as needed 09/17/2016 10/14/2016 Inactive furosemide 40 mg tablet RxNorm: 623208 1 Tablet(s) PO daily as needed swelling 09/17/2016 01/11/2017 In active potassium chloride E R 20 mEq tablet,extended release RxNorm: 894679 1 Tablet(s) PO daily as needed take when taking a lasix pill 09/17/2016 01/11/2017 Inactive Levaquin 500 mg tablet RxNorm: 358749 1 Tablet(s) PO daily 09/17/2016 09/21/2016 Inactive hydrocodone 7.5 mg-a cetaminophen 325 mg tablet RxNorm: 514662 1 Tablet(s) PO QID as needed 08/14/2016 09/12/2016 Inactive cyclobenzaprine 5 mg tablet RxNorm: 275369 1 Tablet(s) PO TID as needed 07/25/2016 07/29/2016 In active cyclobenzaprine 5 mg tablet RxNorm: 433467 1 Tablet(s) PO TID as needed 07/25/2016 07/24/2016 In active hydrocodone 7.5 mg-a cetaminophen 325 mg tablet RxNorm: 426325 1 Tablet(s) PO QID as needed 07/21/2016 08/13/2016 Inactive warfarin 1 mg tablet RxNorm: 459494 TAKE ONE TABLET BY MOUTH EVERY EVENING 06/26/2016 08/04/2016 In active hydrocodone 7.5 mg-a cetaminophen 325 mg tablet RxNorm: 595558 1 Tablet(s) PO QID as needed 06/24/2016 07/20/2016 Inactive hydrocodone 5 mg-yanira taminophen 325 mg tablet RxNorm: 370532 1 Tablet(s) PO Q6 as needed for pain 06/09/2016 06/10/2016 Inactive warfarin 1 mg tablet RxNorm: 852141 TAKE ONE TABLET BY MOUTH EVERY EVENING 06/02/2016 06/21/2016 In active allopurinol 100 mg t ablet RxNorm: 273909 TAKE ONE TABLET BY MO [facility] DAILY 05/21/2016 10/17/2016 In active hydrocodone 7.5 mg-a cetaminophen 325 mg tablet RxNorm: 570153 1 Tablet(s) PO QID as needed 05/09/2016 06/07/2016 Inactive gabapentin 300 mg ca psule RxNorm: 577380 Capsule(s) TAKE ONE C APSULE BY MOUTH THREE TIMES A DAY 04/25/2016 11/09/2017 Inactive promethazine 25 mg t ablet RxNorm: 641132 TAKE ONE TABLET BY MO [facility] THREE TIMES A DAY NEEDED 2016 05/01/2016 Inactive warfarin 1 mg tablet RxNorm: 904082 TAKE ONE TABLET BY MOUTH EVERY EVENING 2016 05/31/2016 In active promethazine 25 mg t ablet RxNorm: 350324 1 Tablet(s) PO TID as needed 04/16/2016 04/21/2016 In active warfarin 1 mg tablet RxNorm: 664284 TAKE ONE TABLET BY MOUTH EVERY EVENING 02/13/2016 04/12/2016 In active magnesium oxide 400 mg tablet RxNorm: 825764 TAKE ONE TABLET BY MO [facility] TWICE A DAY 02/07/2016 01/01/2017 In active hydrocodone 5 mg-yanira taminophen 325 mg tablet RxNorm: 193329 1 Tablet(s) PO Q6 as needed for pain 01/21/2016 02/19/2016 Inactive warfarin 1 mg tablet RxNorm: 937954 TAKE ONE TABLET BY MOUTH EVERY EVENING 01/17/2016 02/05/2016 In active gabapentin 300 mg ca psule RxNorm: 555205 Capsule(s) TAKE ONE C APSULE BY MOUTH THREE TIMES A DAY 01/11/2016 04/24/2016 Inactive prednisone 10 mg tablet RxNorm: 151205 Tablet(s) PO UD 01/10/2016 03/08/2018 Inactive 60mg x2 days, then 50mg x2 days, then 40mg x2 days, 30mg x2 days, 20mg x2 days, 10mg x2days, 5mg every other day x 2 doses Kenalog 40 mg/mL cassius pension for injection RxNorm: 5006890 Milliliter(s) Inj 01/07/2016 01/07/2016 In active warfarin 1 mg tablet RxNorm: 998431 TAKE ONE TABLET BY MOUTH EVERY EVENING 01/01/2016 01/16/2016 In active hydrocodone 5 mg-yanira taminophen 325 mg tablet RxNorm: 828559 1 Tablet(s) PO Q6 as needed for pain 01/01/2016 01/15/2016 Inactive gabapentin 300 mg ca psule RxNorm: 592383 TAKE ONE CAPSULE BY M OUT[facility] THREE TIMES A DAY 12/12/2015 01/10/2016 Inactive warfarin 5 mg tablet RxNorm: 716905 1 Tablet(s) PO daily 12/05/2015 No Stop Date Active warfarin 1 mg tablet RxNorm: 554559 TAKE ONE TABLET BY MOUTH EVERY EVENING 11/13/2015 12/22/2015 In active hydrocodone 5 mg-yanira taminophen 325 mg tablet RxNorm: 156549 1 Tablet(s) PO Q6 as needed for pain 10/26/2015 11/09/2015 Inactive allopurinol 100 mg t ablet RxNorm: 960450 1 Tablet(s) PO daily TAKE ONE TABLET BY MOUTH DAILY 10/18/2015 04/14/2016 Inactive hydrocodone 5 mg-yanira taminophen 325 mg tablet RxNorm: 442786 1 Tablet(s) PO Q6 as needed for pain 09/26/2015 10/10/2015 Inactive gabapentin 300 mg ca psule RxNorm: 561472 TAKE ONE CAPSULE BY M OUTH THREE TIMES A DAY 09/14/2015 12/11/2015 Inactive warfarin 1 mg tablet RxNorm: 993058 1 Tablet(s) PO QPM 09/14/2015 11/12/2015 Inactive hydrocodone 5 mg-yanira taminophen 325 mg tablet RxNorm: 689838 1 Tablet(s) PO Q6 as needed for pain 09/12/2015 09/25/2015 Inactive hydrocodone 5 mg-yanira taminophen 325 mg tablet RxNorm: 079452 1 Tablet(s) PO Q6 as needed for pain 08/22/2015 09/05/2015 Inactive Bactrim DS 800 mg-16 0 mg tablet RxNorm: 884721 1 Tablet(s) PO BID 08/20/2015 09/02/2015 Inactive magnesium oxide 400 mg tablet RxNorm: 234647 TAKE ONE TABLET BY [facility] TWICE A DAY 01/20/2015 01/14/2016 In active gabapentin 300 mg ca psule RxNorm: 027134 TAKE ONE CAPSULE BY [facility] THREE TIMES A DAY 01/20/2015 05/19/2015 Inactive magnesium oxide 400 mg tablet RxNorm: 479927 1 Tablet(s) PO BID 01/17/2015 05/16/2015 Inactive gabapentin 300 mg ca psule RxNorm: 853931 1 Capsule(s) PO TID 01/17/2015 05/16/2015 Inactive allopurinol 100 mg t ablet RxNorm: 828813 TAKE ONE TABLET BY [facility] DAILY 10/18/2014 10/12/2015 In active Kenalog 40 mg/mL cassius pension for injection RxNorm: 4939920 1 Milliliter(s) Inj 09/21/2014 09/21/2014 In active allopurinol 100 mg t ablet RxNorm: 465320 1 Tablet(s) PO daily 09/21/2014 10/17/2014 Inactive gabapentin 300 mg ca psule RxNorm: 918854 1 Capsule(s) PO TID 09/12/2014 01/09/2015 Inactive gabapentin 300 mg ca psule RxNorm: 370997 1 Capsule(s) PO TID 09/12/2014 09/11/2014 Inactive magnesium oxide 400 mg tablet RxNorm: 513936 1 Tablet(s) PO BID 09/12/2014 01/09/2015 Inactive magnesium oxide 400 mg tablet RxNorm: 296300 1 Tablet(s) PO BID 09/12/2014 09/11/2014 Inactive lisinopril 5 mg tablet RxNorm: 000513 1 Tablet(s) PO daily No Start Date Active atorvastatin oral RxNorm: 45313 oral No Start Date Active Coreg 6.25 mg tablet RxNorm: 930537 1 Tablet(s) PO BID No Start Date Active Combivent Respimat 2 0 mcg-100 mcg/actuation solution for inhalation RxNorm: 4894005 1 Puff(s) INH as needed No Start Date Active Ventolin Refill 90 m cg/actuation aerosol inhaler RxNorm: 901456 2 INH as needed No Start Date Active Centrum Silver Women oral RxNorm: [address] art Date Active aspirin 81 mg capsul e,delayed release RxNorm: 243987 1 Capsule(s) PO daily No Start Date Active nystatin 100,000 uni t/gram topical powder RxNorm: 299761 1 Gram(s) TOP TID No Start Date 10/13/2016 Inactive warfarin 1 mg tablet RxNorm: 208861 oral No Start Date 09/13/2015 Inactive Pepcid 20 mg tablet RxNorm: 780450 1 Tablet(s) PO BID No Start Date 12/15/2016 Inactive Protonix 40 mg table t,delayed release RxNorm: 656522 1 Tablet(s) PO daily No Start Date 09/16/2016 Inactive warfarin 5 mg tablet RxNorm: 979134 1 Tablet(s) PO daily 1.5 tabs on Thu No Start Date 12/04/2015 Inactive minocycline 50 mg ca psule RxNorm: 776359 1 Capsule(s) PO BID o rdered by Dr. Saarvia No Start Date 03/08/2018 Inactive furosemide 40 mg tablet RxNorm: 471905 1 Tablet(s) PO daily No Start Date 09/16/2016 Inactive Medication Administered Medication Codes Instruc tions Start Date Status Kenalog 40 mg/mL suspension for injection RxNorm: 8543074 Milliliter 01/07/2016 No longer Active Kenalog 40 mg/mL suspension for injection RxNorm: 3477083 1Milliliter 09/21/2014 N o longer Active Immunizations No Immunization data Assessments Condition Codes Effectiv e Dates Encounter for general adult medical exam ination with abnormal findings ICD-10: Z00.01 ICD-9: V70.0 10/19/2018 Localized edema ICD-10: R60.0 ICD-9: 782.3 06/10/2018 Varicose veins of right lower extremity with pain ICD-10: I83.811 ICD-9: 454.8 06/10/2018 Chronic pain syndrome ICD-10: G89.4 ICD-9: 338.4 03/11/2018 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 ICD-9: [...] neoplasm ICD-10: Z09 ICD-9: V67.59 10/11/2015 Other long term care phlebotomist (current) drug therapy ICD-10: Z79.899 ICD-9: V58.69 [...] Observation Code Item Item Code Result Date Pt Iax5801 PT 43.8 seconds 10/19/2018 Pt Xdi7292 INR 4.7 10/19/2018 Pt Gev7379 Low Intensity - 1.5-2.0 10/19/2018 Pt Rew8428 Mod intensity - 2.0-3.0 10/19/2018 Pt Awk4147 Hi intensity - 3.0-4.0 10/19/2018 Comp Metabolic Nxr571 NA 136 mEq/L 03/11/2018 Comp Metabolic Xzm402 K 4.3 mEq/L 03/11/2018 Comp Metabolic Lym609 CL 101 mEq/L 03/11/2018 Comp Metabolic Sry764 CO2 27.0 mEq/L 03/11/2018 Comp Metabolic Hzc339 AN ION GAP 12 03/11/2018 Comp Metabolic Omw914 GL UCOSE 87 mg/dL 03/11/2018 Comp Metabolic Hdo105 Cr eat 1.0 mg/dL 03/11/2018 Comp Metabolic Xgh500 eG FR 79 ml/min/1.73m2 03/11 Comp Metabolic Wfz667 BUN 12 mg/dL 03/11/2018 Comp Metabolic Ohz387 B/ C Ratio 12.1 Ratio 03/11/2018 Comp Metabolic Jur530 CA LCIUM 8.9 mg/dL 03/11/2018 Comp Metabolic Die619 AL K PHOS 106 U/L 03/11/2018 Comp Metabolic Gaf308 T(SGOT) 16 U/L 03/11/2018 Comp Metabolic Qnd563 AL T(SGPT) 11 U/L 03/11/2018 Comp Metabolic Cew813 BI LI T 0.4 mg/dL 03/11/2018 Comp Metabolic Roq314 AL BUMIN 3.8 g/dL 03/11/2018 Comp Metabolic Xob393 TP RO 6.5 g/dL 03/11/2018 Comp Metabolic Etw810 GL OB 2.7 g/dL 03/11/2018 Comp Metabolic Mnq094 A/ G Ratio 1.4 Ratio 03/11/2018 Comp Metabolic Nae233 Os mo 271 mOsmo 03/11/2018 Cbc With Differential Ord2 WBC 10.11 K/ul 03/11/2018 Cbc With Differential Ord2 RBC 3.76 M/ul 03/11/2018 Cbc With Differential Ord2 HGB 11.2 g/dl 03/11/2018 Cbc With Differential Ord2 HCT 34.0 % 03/11/2018 Cbc With Differential Ord2 Neut% 56.2 % 03/11/2018 Cbc With Differential Ord2 MCV 90.4 fl 03/11/2018 Cbc With Differential Ord2 Lymph% 28.4 % 03/11/2018 Cbc With Differential Ord2 MCH 29.8 pg 03/11/2018 Cbc With Differential Ord2 [place]% 11.3 % 03/11/2018 Cbc With Differential Ord2 [...] 2.87 K/ul 03/11/2018 Cbc With Differential Ord2 [place] ABS# 1.1 K/ul 03/11/2018 Cbc With Differential Ord2 Eos ABS# 0.4 K/ul 03/11/2018 Cbc With Differential Ord2 Baso ABS# 0.0 K/ul 03/11/2018 Pt Lug4980 PT 31.3 seconds 03/11/2018 Pt Zpg9368 INR 3.1 03/11/2018 Pt Yxc2747 Low Intensity - 1.5-2.0 03/11/2018 Pt Muu3365 Mod intensity - 2.0-3.0 03/11/2018 Pt Ujg5187 Hi intensity - 3.0-4.0 03/11/2018 Tsh Ord6 TSH (3rd IS) 2.01 uIU/mL 03/11/2018 Shiga Toxin 1 & 2 Eia Stool [id number] SHIGA TOXIN 1: NEGATIVE 04/12/2017 Shiga Toxin 1 & 2 Eia Stool 108152 SHIGA TOXIN 2: NEGATIVE 04/12/2017 Culture Stool [id number] STO OL CULTURE SEE NOTES 04/12/2017 Clostridium Diff Tox A/B Ecy968 Cdiff Negative 04/09/2017 Pt Vth7841 PT 64.8 seconds 01/10/2016 Pt Qpl5826 INR 8.6 01/10/2016 Pt Xah3275 Low Intensity - 1.5-2.0 01/10/2016 Pt Udl4571 Mod intensity - 2.0-3.0 01/10/2016 Pt Swo2520 Hi intensity - 3.0-4.0 01/10/2016 Pt Foi9743 PT 32.1 seconds 11/01/2014 Pt Xha5554 INR 3.2 11/01/2014 Pt Kel0731 Low Intensity - 1.5-2.0 11/01/2014 Pt Jfj3970 Mod intensity - 2.0-3.0 11/01/2014 Pt Zws9544 Hi intensity - 3.0-4.0 11/01/2014 Pt Adv8601 PT 30.2 seconds 10/03/2014 Pt Exq7439 INR 3.0 10/03/2014 Pt Wbm6767 Low Intensity - 1.5-2.0 10/03/2014 Pt Row6840 Mod intensity - 2.0-3.0 10/03/2014 Pt Tnz2729 Hi intensity - 3.0-4.0 10/03/2014 D-Dimer D-DIMER 475 NG/ML 09/25/2014 D-Dimer COMMENT 09/25/2014 Magnesium Ord90 Mag 1.1 Result Verified By Repeat Analysis mg/dL 09/22/2014 Pt Ztn4005 PT 32.0 seconds 09/22/2014 Pt Wrw0947 INR 3.2 09/22/2014 Pt Hsh8922 Low Intensity - 1.5-2.0 09/22/2014 Pt Cgc6251 Mod intensity - 2.0-3.0 09/22/2014 Pt Rui5847 Hi intensity - 3.0-4.0 09/22/2014 Comp Metabolic Stg423 NA 137 mEq/L 09/22/2014 Comp Metabolic Tgx256 K 4.2 mEq/L 09/22/2014 Comp Metabolic Kij474 CL 102 mEq/L 09/22/2014 Comp Metabolic Kxn301 CO2 25.0 mEq/L 09/22/2014 Comp Metabolic Fyb445 AN ION GAP 14 09/22/2014 Comp Metabolic Qci698 GL UCOSE 94 mg/dL 09/22/2014 Comp Metabolic Gwq147 Cr eat 0.8 mg/dL 09/22/2014 Comp Metabolic Cgt621 eG FR 102 ml/min/1.73m2 09/06 Comp Metabolic Imh435 BUN 15 mg/dL 09/22/2014 Comp Metabolic Vbp668 B/ C Ratio 18.8 Ratio 09/22/2014 Comp Metabolic Oxi189 CA LCIUM 9.4 mg/dL 09/22/2014 Comp Metabolic One338 AL K PHOS 65 U/L 09/22/2014 Comp Metabolic Mnr139 T(SGOT) 15 U/L 09/22/2014 Comp Metabolic Dur285 AL T(SGPT) 8 U/L 09/22/2014 Comp Metabolic Jrr797 BI LI T 0.4 mg/dL 09/22/2014 Comp Metabolic Hje439 AL BUMIN 4.0 g/dL 09/22/2014 Comp Metabolic Xou455 TP RO 6.8 g/dL 09/22/2014 Comp Metabolic Bfc343 GL OB 2.8 g/dL 09/22/2014 Comp Metabolic Uzi295 A/ G Ratio 1.4 Ratio 09/22/2014 Comp Metabolic Ioz028 Os mo 274 mOsmo 09/22/2014 C-Reactive Protein [...] No mental status change 03/11/2018 Psychiatric anxiety 0 05/2018 Psychiatric depression 0 03/11/2018 Constitutional No [...] Effective Dates Notes Full Exam - General 1995 Constitutional general appearance Overall: well developed 10/19/2018 None Full Exam - General 1995 Constitutional general appearance Overall: in no acute [...] clear 06/10/2018 None Full Exam - General 1995 Ears/Nose/Throat lips/teeth/gingiva Overall: benign lips 06/10/2018 None [...] lips 03/11/2018 None Full Exam - General 1994 [...] developed 10/15/2016 None Full Exam - General 1995 Constitutional general appearance Overall: in no acute distress 10/15/2016 None Full Exam - General 1995 Constitutional general appearance Overall: well nourished 10/15/2016 None Full Exam - General 1995 Constitutional general appearance Assistive Device: wheelchair 10/15/2016 None Full Exam - General 1995 Eyes conjunctiva/eyelids Overall: conjunctiva clear 10/15/2016 None Full Exam - General 1994 Eyes conjunctiva/eyelids Overall: eyelids normal 10/15/2016 None Full Exam - General 1995 Ears/Nose/Throat lips/teeth/gingiva Overall: benign lips 10/15/2016 None Full Exam - General 1995 [...] 4: G0439 10/19/2018 THER/PROPH/DIAG INJ SC/IM CPT-4: 99295 08/28/2017 ROCEPHIN, PER 250 MG CPT-4: J0696 08/28/2017 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 3-[address]: [id number] CPT-4: G0436 01/27/2017 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 3-[address]: 439117425 CPT-4: G0436 11/25/2016 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 3-[address]: 771077925 CPT-4: G0436 10/15/2016 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 3-[address]: 985416894 CPT-4: G0436 09/17/2016 THER/PROPH/DIAG INJ SC/IM CPT-4: 84093 01/07/2016 TRIAMCINOLONE ACET I [place] NOS CPT-4: J3301 01/07/2016 TRIAMCINOLONE ACET I [place] NOS CPT-4: J3301 09/21/2014 THER/PROPH/DIAG INJ SC/IM CPT-4: 54677 09/21/2014 Vital Signs Date Vital 10/19/2018 Blood Pressure 1: 130/76 Code: 8480-6 BMI: 33.1 Code: 69744-2 Heart Rate 1: 75 bpm Height: 5'3" SpO2: 97% Weight: 187 lbs 06/10/2018 Blood Pressure 1: 122/60 Code: 8480-6 BMI: 31.4 Code: 60220-2 Heart Rate 1: 75 bpm Height: 5'3" SpO2: 98% Weight: 177 lbs 03/11/2018 Blood Pressure 1: 134/82 Code: 8480-6 BMI: 32.8 Code: 77180-1 Heart Rate 1: 65 bpm Height: 5'3" SpO2: 96% Weight: 185 lbs 08/28/2017 Blood Pressure 1: 138/72 Code: 8480-6 Heart Rate 1: 80 bpm Height: SpO2: 98% Weight: 07/20/2017 Blood Pressure 1: 134/76 Code: 8480-6 BMI: 29.6 Code: 90720-7 Heart Rate 1: 82 bpm Height: 5'3" [...] 1: 128/78 Code: 8480-6 BMI: 33.3 Code: 55733-6 Heart Rate 1: 72 bpm Height: 5'3" SpO2: 97% Weight: 188 lbs 01/10/2016 Blood Pressure 1: 132/76 Code: 8480-6 BMI: 33.1 Code: 28110-1 Heart Rate 1: 72 bpm Height: 5'3" SpO2: 97% Weight: 187 lbs 12/25/2015 Blood Pressure 1: 154/82 Code: 8480-6 BMI: 33.1 Code: 64979-0 Heart Rate 1: 72 bpm Height: 5'3" SpO2: 97% Weight: 187 lbs 10/11/2015 Blood Pressure 1: 110/62 Code: 8480-6 BMI: 34.7 Code: 27412-6 Heart Rate 1: 70 bpm Height: 5'3" SpO2: 93% Weight: 196 lbs 08/24/2015 Blood Pressure 1: 132/62 Code: 8480-6 BMI: 35.3 Code: 15142-2 Heart Rate 1: 62 bpm Height: 5'3" SpO2: 93% Weight: 199 lbs 08/20/2015 Blood Pressure 1: 140/68 Code: 8480-6 BMI: 35.3 Code: 37107-3 Heart Rate 1: 74 bpm Height: 5'3" SpO2: 96% Weight: 199 lbs 12/28/2014 Blood Pressure 1: 130/72 Code: 8480-6 BMI: 33.1 Code: 86167-1 Heart Rate 1: 60 bpm Height: 5'3" SpO2: 97% Weight: 187 lbs 10/31/2014 Blood Pressure 1: 118/72 Code: 8480-6 BMI: 31.2 Code: 25041-3 Heart Rate 1: 58 bpm Height: 5'3" SpO2: 98% Weight: 176 lbs 10/02/2014 Blood Pressure 1: 138/74 Code: 8480-6 BMI: 30.6 Code: 87181-6 Heart Rate 1: 72 bpm Height: 5'3" Weight: 173 lbs 09/21/2014 Blood Pressure 1: 138/72 Code: 8480-6 BMI: 30.5 Code: 89864-4 Heart Rate 1: 60 bpm Height: 5'3" [...] daily 12/25/2015 None Hospital Follow Up _ [facility] er: diverticulitis 10/11/2015 None Hospital Follow Up [...] Encounters Encounter Performer Loca tion Codes Date EST. PATIENT, LEVEL III Diagnosis: Localized edema[ICD10: R60.0] Diagnosis: Varicose veins of right lower extremity with pain[ICD10: I83.811] [facility] CPT-4: 94377 06/10/2018 [id number] EST. 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 PATIENT, LEVEL III Diagnosis: Cellulitis of left axilla[ICD10: L03.112] Diagnosis: Cellulitis of right axilla[ICD10: L03.111] Rox Alvarez MD, [facility] CPT-4: 96007 08/28/2017 42973 EST. 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 PATIENT, LEVEL IV Diagnosis: Generalized anxiety disorder[ICD10: F41.1] Diagnosis: Major depressive disorder, single episode, moderate[ICD10: F32.1] Diagnosis: Diarrhea, unspecified[ICD10: R19.7] Rox Alvarez MD, [facility] CPT-4: 21872 04/21/2017 85325 EST. PATIENT, LEVEL IV Diagnosis: Generalized anxiety disorder[ICD10: F41.1] Diagnosis: Major depressive disorder, single episode, moderate[ICD10: F32.1] Diagnosis: Nausea[ICD10: R11.0] Diagnosis: Diarrhea, unspecified[ICD10: R19.7] Rox Alvarez MD, [facility] CPT-4: 65916 04/07/2017 ([id number]) 56017 EST. P ATIENT, LEVEL IV Diagnosis: Essential (primary) hypertension[ICD10: I10] Diagnosis: Nausea[ICD10: R11.0] Diagnosis: Other fecal abnormalities[ICD10: R19.5] Diagnosis: Tobacco use[ICD10: Z72.0] Selena Alvarez MD, [facility] CPT-4: 22144 01/27/2017 ([id number]) 14595 EST. P ATIENT, LEVEL III Diagnosis: Essential (primary) hypertension[ICD10: I10] Diagnosis: Chronic obstructive pulmonary disease, unspecified[ICD10: J44.9] Diagnosis: Rash and other nonspecific skin eruption[ICD10: R21] Selena Alvarez MD, [facility] CPT-4: 73825 11/25/2016 ([id number]) 98185 EST. [facility]: Other sites of candidiasis[ICD10: B37.89] Selena Alvarez MD, [facility] CPT-4: 10930 10/15/2016 ([id number]) 78879 EST. P ATIENT, LEVEL IV Diagnosis: Essential (primary) hypertension[ICD10: I10] Diagnosis: Urinary tract infection, site not specified[ICD10: N39.0] Diagnosis: Localized edema[ICD10: R60.0] Selena Alvarez MD, [facility] CPT-4: 22120 09/17/2016 60181 EST. 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 PATIENT, LEVEL III Diagnosis: Other specified bacterial intestinal infections[ICD10: A04.8] Rox Alvarez MD, [facility] CPT-4: 57422 04/16/2016 71597 EST. PATIENT, LEVEL II Diagnosis: Pain in right foot[ICD10: M79.671] Rox Alvarez MD, [facility] CPT-4: 44422 01/21/2016 08094 EST. PATIENT, LEVEL III Diagnosis: Encounter for therapeutic drug level monitoring[ICD10: Z51.81] Diagnosis: Rash and other nonspecific skin eruption[ICD10: R21] Rox Alvarez MD [facility] CPT-4: 31834 01/10/2016 82937 EST. PATIENT, LEVEL III Diagnosis: Rash and other nonspecific skin eruption[ICD10: R21] Rox Alvarez MD, [facility] CPT-4: 05570 01/07/2016 ([id number]) Miscellaneou s no charge Diagnosis: Cutaneous abscess of left axilla[ICD10: L02.412] Rox Alvarez MD, [facility] CPT-4: 79376 01/02/2016 ([id number]) Miscellaneou s no charge Diagnosis: Cutaneous abscess of left axilla[ICD10: L02.412] Rox Alvarez MD, [facility] CPT-4: 63682 01/01/2016 ([id number]) Miscellaneou s no charge Diagnosis: Cutaneous abscess of left axilla[ICD10: L02.412] [facility] CPT-4: 51387 12/31/2015 ([id number]) Patient adm itted to the hospital from clinic (NO CHARGE) Diagnosis: Cutaneous abscess of left axilla[ICD10: L02.412] Rox Alvarez MD, [facility] CPT-4: 45755S 12/25/2015 92204 EST. PATIENT, LEVEL III Diagnosis: Encounter for follow-up examination after completed treatment for conditions other than malignant neoplasm[ICD10: Z09] Diagnosis: Diverticulitis of intestine, part unspecified, without perforation or abscess with bleeding[ICD10: K57.93] Diagnosis: Cellulitis of left toe[ICD10: L03.032] Diagnosis: Other obesity due to excess calories[ICD10: E66.09] Diagnosis: Other long term care phlebotomist (current) drug therapy[ICD10: Z79.899] Rox Alvarez MD, [facility] CPT-4: 67715 10/11/2015 ([id number]) Miscellaneou s no charge Diagnosis: Encounter for therapeutic drug level monitoring[ICD10: Z51.81] Diagnosis: Other acute osteomyelitis, left ankle and foot[ICD10: M86.172] [facility] CPT-4: 54101 08/24/2015 87647 EST. PATIENT, LEVEL IV Diagnosis: Cellulitis of left toe[ICD10: L03.032] [facility] CPT-4: 70973 08/20/2015 34433 EST. PATIENT, LEVEL III Diagnosis: Essential (primary) hypertension[ICD10: I10] Diagnosis: Peripheral vascular disease, unspecified[ICD10: I73.9] Diagnosis: Dermatitis, unspecified[ICD10: L30.9] [facility] CPT- 4: 85792 12/28/2014 ([id number]) 60375 EST. P ATIENT, LEVEL III Diagnosis: ESSENTIAL HYPERTENSION[ICD9: 401.9] Diagnosis: PAD (peripheral artery disease)[ICD9: 443.9] Diagnosis: Anticoagulated on Coumadin[ICD9: V58.83] Emy Alvarez MD, [facility] CPT-4: 79577 10/31/2014 ([id number]) 24113 EST. P [facility], LEVEL III Diagnosis: PAD (peripheral artery disease)[ICD9: 443.9] Diagnosis: Anticoagulated on Coumadin[ICD9: V58.83] Diagnosis: SCLERITIS[ICD9: 379.00] Diagnosis: ESSENTIAL HYPERTENSION[ICD9: 401.9] [facility]ena [facility] CPT- 4: 41640 10/02/2014 ([id number]) OFFICE [facility] - LEVEL 4 Diagnosis: GOUT[ICD9: 274.9] Diagnosis: COPD (chronic obstructive pulmonary disease)[ICD9: 496] Diagnosis: PAD (peripheral artery disease)[ICD9: 443.9] Diagnosis: ESSENTIAL HYPERTENSION[ICD9: 401.9] Selena Alvarez MD, [facility] CPT- 4: 14128 09/21/2014 Plan of Care Planned Activity Notes [...] C screening - will check labs 10/19/2018 Patient Education: Patient Medication Summary Completed 10/19/2018 Appointment: Rox Luciano WPtel: [facility] (15 min) Moderate 09/08/2018 Visit Plan: Edema [...] vein specialist. 06/10/2018 Appointment: Rox Luciano WPtel: [facility] (30 min) Complex 06/10/2018 Patient Education: Patient [...] continue PT 03/11/2018 Appointment: Rox Luciano WPtel: [facility] (15 min) Moderate 03/11/2018 Patient Education: Patient Medication Summary Completed 03/11/2018 Appointment: Rox Luciano WPtel: [facility] (30 min) Complex 11/17/2017 Visit Plan: Cellulitis [...] warmth, discharge. 08/28/2017 Appointment: Rox Luciano WPtel: [facility] (30 min) [facility] 08/28/2017 Patient Education: Patient Medication Summary Completed [...] be able to perform ADLs independently. 07/20/2017 Visit Plan: Chronic Pain Syndrome - [...] Left leg amputation - continue PT 07/20/2017 Appointment: [phone] ([facility] min) Complex 07/20/2017 Patient Education: Patient Medication Summary Completed 07/20/2017 Referral: Stephanie Silva WPtel: Referral Initiated 05/04/2017 Care Plan: Referral Order SNOMED-CT : 412464361 Pending 04/30/2017 Visit Plan: Chronic Depression and [...] stomach pain. 04/21/2017 Appointment: [facility] Luciano [phone] (30 min) Complex 04/21/2017 Patient Education: Patient [...] pain. 04/07/2017 Appointment: [facility] Luciano [phone] (30 min) Complex 04/07/2017 Patient Education: Patient Medication Summary Completed 04/07/2017 Appointment: Selena Alvarez WPtel: [facility] (15 min) Moderate 02/26/2017 Visit Plan: Hypertension [...] improving. 01/27/2017 Appointment: Selena Alvarez WPtel: [phone] [facility] (15 min) Moderate 01/27/2017 Patient Education: Patient [...] with nystatin 11/25/2016 Appointment: Selena Alvarez WPtel: [phone] [facility] (15 min) Moderate 11/25/2016 Appointment: Selena Alvarez WPtel: [phone] [facility] (15 min) Moderate 11/25/2016 Patient Education: Patient [...] over-medication. 10/15/2016 Appointment: Selena Alvarez WPtel: [phone] [facility] (15 min) Moderate 10/15/2016 Patient Education: Patient Medication Summary Completed 10/15/2016 Patient Education: Smoking and Tobacco Addiction Completed 10/15/2016 Appointment: [facility]ox Luciano [phone] (30 min) Complex 09/18/2016 Visit Plan: Hypertension [...] mobility evaluation. 08/14/2016 Appointment: [facility] Luciano [phone] (30 min) Complex 08/14/2016 Patient Education: Patient [...] stomach pain. 04/16/2016 Appointment: [facility] Luciano [phone] (15 min) Moderate 04/16/2016 Patient Education: Patient Medication Summary Completed 04/16/2016 Patient Education: Smoking and Tobacco Addiction Completed 04/16/2016 Referral: Dr Arboleda Referral Completed 02/14/2016 Care Plan: Referral Order SNOMED-CT : [id number] Pending 01/29/2016 Visit Plan: Right foot pain - ongoi ng - pt states that when he [...] warmth, discharge. 01/10/2016 Appointment: Rox Luciano WPtel: [address] [place], [place] [address] (30 min) [facility] 01/10/2016 Patient Education: Patient Medication Summary Completed 01/10/2016 Patient Education: Smoking and Tobacco Addiction Completed 01/10/2016 Visit Plan: Rash - pt states that h joleen is unsure if it from grass or [...] - Pt states that he went to [facility] care for the abscess and they started him on an antibiotic and told him to go home and drain it himself. Axilla to lateral chest wall is erythematous with large area of induration. 3 open sites with thick purulent drainage noted - Dr. Alvarez in to see pt - will admit for IV antibiotics and further I&D. 12/25/2015 Appointment: Emy Westbrook [facility]Ptel[phone] [place] (15 min) Moderate 12/25/2015 Patient Education: [...] care management. 10/11/2015 Appointment: Rox Luciano [facility]Ptel[phone] (30 min) Complex 10/11/2015 Patient Education: Patient Medication Summary Completed 10/11/2015 Patient Education: Smoking and Tobacco Addiction Completed 10/11/2015 Patient Education: Obesity Completed 10/11/2015 Referral: Gavino Navarro they are g oing to call if they get him in before if not we will call Dr shook Initiated 09/27/2015 Appointment: Emy Westbrook WPtel: [phone] (15 min) Moderate 08/24/2015 Patient Education: Patient Medication Summary Completed 08/24/2015 Patient Education: Smoking and Tobacco Addiction Completed 08/24/2015 Patient Education: Patient Medication Summary Completed 08/23/2015 Appointment: Emy Westbrook WPtel: [phone] [phone] (30 min) Complex 08/22/2015 [facility] Ref[facility] Initiated 08/22/2015 Visit Plan: Pt on [...] Hypertension Completed 12/28/2014 Appointment: [phone] Follow up 12/20/2014 Visit Plan: Hypertension - [...] in blood pressure readings at home. 09/21/2014 Visit Plan: Dr. Alvarez in to [...] is stable, monitor for acute changes. 09/21/2014 Appointment: (S) New Patient 09/21/2014 Patient Education: Patient Medication Summary Completed 09/21/2014 Patient Education: Hypertension Completed 09/21/2014 Care Plan: Referral Order SNOMED-CT : [id number] Ordered 09/21/2014 Appointment: Selena Alvarez WPtel: [phone] [place] [address] [place] (S) New Patient 09/20/2014 Referral: Martinez Wren WPtel: [phone] Referral Initiated Referral: Gavino Navarro Referral Initiated Referral: [facility] WPtel: 1 [facility] Referral Initiated Referral: Dr Arboleda Referral Completed [...] toe - continue with wound care management. 5mg daily except Thu take 6mg on [...] - continue with wound care management. . Cellulitis bilater al axilla - The [...] increase in pain, worsening redness, warmth, discharge. probiotics - culture [facility] or [facility]. . Gastroenteritis - discussed need to stay [...] - monitor symptoms. check INR on thursday . Left axilla absces s - packing removed - minimal purulent drainage noted, repacked and dressing applied. . Left axilla absces s - packing removed - minimal drainage noted, wound cleaned and dressing applied. . Chronic Pain Syndr ome - pt [...] be able to perform ADLs independently. . Chronic Pain Syndr ome - pt [...] of the lesion, increase in pain. . Left Axilla absces s and cellulitis [...] for IV antibiotics and further I&D. . Chronic Pain Syndr ome - pt [...] Left leg amputation - continue PT . Hypertension - wel l controlled - continue with current medications, continue with no added salt diet. Pt has been encouraged to exercise daily. The pt has been advised to call the office if there are any acute concerns about change in blood pressure readings at home. . Right foot pain - ongoing - pt states that when he walks he tends to lean to the right lateral side of his foot, denies any trauma - will refer for possible sole insert. Pt is to notify clinic if symptoms do not improve, if they worsen, or with any questions or concerns. GO TO YOUR APPOINTME NT WITH DR. NAVARRO ON THURSDAY AT 1230. CONTINUE WITH THE BACTRIM 1 PILL TWICE A DAY. WE WILL CHECK YOUR COUMADIN LEVEL TODAY AND SEE IF WE NEED TO ADJUST IT. WE WILL CALL DR. DOMINGO OFFICE AND SEE WHEN YOUR APPOINTMENT IS. CALL US WITH ANY QUESTIONS OR CONCERNS. . We will check PT/INR today Go directly [...] immediately upon leaving this appointment. Verbalizes understanding. . Yeast/candidal of groin - rx for nystatin - monitor symptoms. call if not improving. Chronic Pain Syndrome - pt has chronic pain - has been maintained on current medications, has not sought out other medications, only uses PRN pain medications as directed, and understands the consequences of over-medication. Will send steroid cr eam for arms. [...] worsen, or with questions or concerns. . Left axilla absces s - packing removed - minimal drainage noted, repacked and dressing applied. . Dr. Alvarez in to see patient. [...] change in blood pressure readings at home. You need to see Dr. Holger SURESH. [...] is stable, monitor for acute changes. . Pt is here for a f [...] Will refer to PT for mobility evaluation. . Rash - pt states t hat [...] the lesion, increase in pain. . Chronic Depression and anxiety - the [...] of stomach upset or stomach pain. . Chronic Anticoagul ant use - Pt [...] change in symptoms, worsening redness, warmth, discharge. 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 [...]
[2019-08-20] MEDS ORDERED: NS IV 1000 ML 1,000 ML IV SCH (18:10)
--- OUTSIDE RECORDS SUMMARY | 2019-08-20 18:10 | XMS REPORT | CCD ---
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 Name Role Phone PP Unavailable CCM Unavailable Summary Purpose Interface Exchange Insurance Providers Payer name Policy type / Coverage type Covered republican ID Effective Begin Date Effective End Date [facility] Commercial Insurance [id number] 2017 Unknown Family history Father Diagnosis Age At Onset Hyperlipidemia Unknown Coronary Artery Disease Unknown Stroke Unknown lung cancer Unknown Cancer Unknown Congestive heart failure Unknown Mother Diagnosis Age At Onset Hypertension Unknown kidney disease Unknown Cancer Unknown Stroke Unknown Hyperlipidemia Unknown Coronary Artery Disease Unknown Congestive heart failure Unknown Social History Social History Element Codes Description Effective Dates Tobacco history SNOMED CT: 621352995221317 Current some days smoker 09/21/2014 Allergies, Adverse [...] V67.59 ICD-10: Z09 Active 10/10/2015 Unknown Other rn long term care (cur rent) drug therapy ICD-9: V58.69 [...] findings ICD-9: V70.0 ICD-10: Z00.01 10/19/2018 Active rn long term care (current) use of anticoagulants ICD-9: V58.61 ICD-10: [...] ICD-9: V67.59 ICD-10: Z09 10/10/2015 Active Other residential (cur rent) drug therapy ICD-9: V58.69 ICD-10: [...] E R 20 mEq tablet,extended release RxNorm: 074347 Tablet(s) TAKE ONE TABLET BY MOUTH DAILY WHEN TAKING FUROSEMIDE NEEDED 10/19/2018 04/16/2019 Active pt would like a capsule instead of a tab let Lexapro 20 mg tablet RxNorm: 333526 1 Tablet(s) PO QHS 10/19/2018 11/17/2018 Active Pepcid 20 mg tablet RxNorm: 804162 TAKE ONE TABLET BY MOUTH TWICE A DAY 10/07/2018 01/04/2019 Ac tive gabapentin 300 mg ca psule RxNorm: 650955 TAKE ONE CAPSULE BY M [facility] THREE TIMES A DAY 10/07/2018 03/05/2019 Ac tive hydrocodone 7.5 mg-a cetaminophen 325 mg tablet RxNorm: 331044 1 Tablet(s) PO QID as needed 09/16/2018 10/15/2018 Inactive furosemide 40 mg tablet RxNorm: 523344 TAKE ONE TABLET BY MOUTH DAILY NEEDED FOR SWELLING 09/10/2018 02/06/2019 Active hydrocodone 7.5 mg-a cetaminophen 325 mg tablet RxNorm: 775682 1 Tablet(s) PO QID as needed 08/18/2018 09/15/2018 Inactive Lexapro 10 mg tablet RxNorm: 038578 TAKE ONE TABLET BY MOUTH AT BEDTIME 08/03/2018 10/18/2018 In active hydrocodone 7.5 mg-a cetaminophen 325 mg tablet RxNorm: 112341 1 Tablet(s) PO QID as needed 07/15/2018 08/13/2018 Inactive Keflex 500 mg capsule RxNorm: 018551 1 Capsule(s) PO TID 06/11/2018 06/17/2018 Inactive Pepcid 20 mg tablet RxNorm: 990220 TAKE ONE TABLET BY MOUTH TWICE A DAY 05/25/2018 09/21/2018 In active hydrocodone 7.5 mg-a cetaminophen 325 mg tablet RxNorm: 205175 1 Tablet(s) PO QID as needed 05/19/2018 06/17/2018 Inactive hydrocodone 7.5 mg-a cetaminophen 325 mg tablet RxNorm: 539798 1 Tablet(s) PO QID as needed 04/19/2018 05/18/2018 Inactive allopurinol 100 mg t ablet RxNorm: 661718 TAKE ONE TABLET BY MO [facility] DAILY 04/06/2018 03/01/2019 Ac tive hydrocodone 7.5 mg-a cetaminophen 325 mg tablet RxNorm: 526548 1 Tablet(s) PO QID as needed 03/11/2018 04/09/2018 Inactive potassium chloride E R 20 mEq tablet,extended release RxNorm: 390136 Tablet(s) TAKE ONE TABLET BY MOUTH DAILY WHEN TAKING FUROSEMIDE NEEDED 03/05/2018 08/31/2018 Inactive gabapentin 300 mg ca psule RxNorm: 366310 TAKE ONE CAPSULE BY M [facility] THREE TIMES A DAY 03/04/2018 10/06/2018 Inactive hydrocodone 7.5 mg-a cetaminophen 325 mg tablet RxNorm: 442225 1 Tablet(s) PO QID as needed 02/18/2018 03/10/2018 Inactive hydrocodone 7.5 mg-a cetaminophen 325 mg tablet RxNorm: 061121 1 Tablet(s) PO QID as needed 01/19/2018 02/17/2018 Inactive hydrocodone 7.5 mg-a cetaminophen 325 mg tablet RxNorm: 403271 1 Tablet(s) PO QID as needed 12/16/2017 01/14/2018 Inactive Pepcid 20 mg tablet RxNorm: 717955 Tablet(s) TAKE ONE TABLET BY MOUTH TWICE A DAY 12/08/2017 05/06/2018 Inactive hydrocodone 7.5 mg-a cetaminophen 325 mg tablet RxNorm: 372615 1 Tablet(s) PO QID as needed 11/18/2017 12/15/2017 Inactive gabapentin 300 mg ca psule RxNorm: 058069 Capsule(s) TAKE ONE C APSULE BY MOUTH THREE TIMES A DAY 11/11/2017 03/03/2018 Inactive gabapentin 300 mg ca psule RxNorm: 485933 TAKE ONE CAPSULE BY M [facility] THREE TIMES A DAY 11/10/2017 11/10/2017 Inactive hydrocodone 7.5 mg-a cetaminophen 325 mg tablet RxNorm: 501170 1 Tablet(s) PO QID as needed 10/19/2017 11/17/2017 Inactive hydrocodone 7.5 mg-a cetaminophen 325 mg tablet RxNorm: 667589 1 Tablet(s) PO QID as needed 09/16/2017 10/15/2017 Inactive doxycycline hyclate 100 mg capsule RxNorm: 4440237 1 Capsule(s) PO BID 08/28/2017 09/06/2017 In active hydrocodone 7.5 mg-a cetaminophen 325 mg tablet RxNorm: 842196 1 Tablet(s) PO QID as needed 08/21/2017 09/15/2017 Inactive Lexapro 10 mg tablet RxNorm: 754159 TAKE ONE TABLET BY MOUTH AT BEDTIME 08/02/2017 07/27/2018 In active Zyrtec 10 mg tablet RxNorm: 2941675 1 Tablet(s) PO daily 07/20/2017 11/16/2017 Inactive hydrocodone 7.5 mg-a cetaminophen 325 mg tablet RxNorm: 279811 1 Tablet(s) PO QID as needed 07/20/2017 09/15/2017 Inactive furosemide 40 mg tablet RxNorm: 242453 Tablet(s) TAKE ONE TABLET BY MOUTH DAILY NEEDED FOR SWELLING 07/08/2017 01/03/2018 Inactive Pepcid 20 mg tablet RxNorm: 250327 TAKE ONE TABLET BY MOUTH TWICE A DAY 06/29/2017 11/25/2017 In active gabapentin 300 mg ca psule RxNorm: 749906 TAKE ONE CAPSULE BY [facility] THREE TIMES A DAY 06/29/2017 10/26/2017 Inactive hydrocodone 7.5 mg-a cetaminophen 325 mg tablet RxNorm: 876299 1 Tablet(s) PO QID as needed 06/18/2017 07/17/2017 Inactive hydrocodone 7.5 mg-a cetaminophen 325 mg tablet RxNorm: 594815 1 Tablet(s) PO QID as needed 05/18/2017 06/16/2017 Inactive hydrocodone 7.5 mg-a cetaminophen 325 mg tablet RxNorm: 642628 1 Tablet(s) PO QID as needed 04/21/2017 05/17/2017 Inactive hyoscyamine 0.125 mg sublingual tablet RxNorm: 5666249 1 Tablet(s) SL TID a s needed 04/21/2017 04/25/2017 In active Lexapro 10 mg tablet RxNorm: 981002 1 Tablet(s) PO QHS 04/21/2017 07/19/2017 Inactive Flagyl 500 mg tablet RxNorm: 782610 1 Tablet(s) PO TID 04/07/2017 04/16/2017 Inactive Lexapro 10 mg tablet RxNorm: 591559 1 Tablet(s) PO QHS 04/07/2017 04/20/2017 Inactive hydrocodone 7.5 mg-a cetaminophen 325 mg tablet RxNorm: 432210 1 Tablet(s) PO QID as needed 03/24/2017 04/20/2017 Inactive allopurinol 100 mg t ablet RxNorm: 122580 TAKE ONE TABLET BY MO [facility] DAILY 03/10/2017 03/04/2018 In active hydrocodone 7.5 mg-a cetaminophen 325 mg tablet RxNorm: 595256 1 Tablet(s) PO QID as needed 02/11/2017 03/12/2017 Inactive gabapentin 300 mg ca psule RxNorm: 512863 TAKE ONE CAPSULE BY M [facility] THREE TIMES A DAY 02/02/2017 06/28/2017 Inactive Zofran ODT 4 mg disi ntegrating tablet RxNorm: 170183 1 Tablet(s) PO QID as needed nausea and vomitting 01/27/2017 No Stop Date Active hydrocodone 7.5 mg-a cetaminophen 325 mg tablet RxNorm: 580933 1 Tablet(s) PO QID as needed 01/13/2017 02/10/2017 Inactive potassium chloride E R 20 mEq tablet,extended release RxNorm: 312582 TAKE ONE TABLET BY MOUTH DAILY WHEN TAKING FUROSEMIDE NEEDED 01/12/2017 07/10/2017 Inactive furosemide 40 mg tablet RxNorm: 402149 TAKE ONE TABLET BY MOUTH DAILY NEEDED FOR SWELLING 01/12/2017 07/09/2017 Inactive promethazine 25 mg t ablet RxNorm: 175724 TAKE ONE TABLET BY MO [facility] THREE TIMES A DAY NEEDED FOR NAUSEA AND VOMITING 01/12/2017 01/31/2017 Inactive promethazine 25 mg t ablet RxNorm: 172180 1 Tablet(s) PO TID as needed nausea and vomitting 01/06/2017 01/11/2017 Inactive Lomotil 2.5 mg-0.025 mg tablet RxNorm: 8525101 1-2 Tablet(s) PO BID as needed diarrhea 01/06/2017 01/05/2017 Inactive Lomotil 2.5 mg-0.025 mg tablet RxNorm: 1211877 1-2 Tablet(s) PO BID as needed diarrhea 01/06/2017 01/07/2017 Inactive Pepcid 20 mg tablet RxNorm: 871066 1 Tablet(s) PO BID 12/19/2016 06/16/2017 Inactive Pepcid 20 mg tablet RxNorm: 413250 1 Tablet(s) PO BID 12/16/2016 12/18/2016 Inactive hydrocodone 7.5 mg-a cetaminophen 325 mg tablet RxNorm: 928980 1 Tablet(s) PO QID as needed 12/16/2016 01/12/2017 Inactive hydrocodone 7.5 mg-a cetaminophen 325 mg tablet RxNorm: 263280 1 Tablet(s) PO QID as needed 11/18/2016 12/15/2016 Inactive allopurinol 100 mg t ablet RxNorm: 997799 TAKE ONE TABLET BY [facility] DAILY 10/29/2016 02/25/2017 In active hydrocodone 7.5 mg-a cetaminophen 325 mg tablet RxNorm: 720729 1 Tablet(s) PO QID as needed 10/15/2016 11/13/2016 Inactive nystatin 100,000 uni t/gram topical cream RxNorm: 472256 1 Gram(s) TOP QID 10/15/2016 11/25/2016 In active nystatin 100,000 uni t/gram topical powder RxNorm: 198284 1 Gram(s) TOP TID TO GROIN OR AFFECTED AREA 10/14/2016 No Stop Date Active hydrocodone 7.5 mg-a cetaminophen 325 mg tablet RxNorm: 305848 1 Tablet(s) PO QID as needed 09/17/2016 10/14/2016 Inactive furosemide 40 mg tablet RxNorm: 003695 1 Tablet(s) PO daily as needed swelling 09/17/2016 01/11/2017 In active potassium chloride E R 20 mEq tablet,extended release RxNorm: 158949 1 Tablet(s) PO daily as needed take when taking a lasix pill 09/17/2016 01/11/2017 Inactive Levaquin 500 mg tablet RxNorm: 635979 1 Tablet(s) PO daily 09/17/2016 09/21/2016 Inactive hydrocodone 7.5 mg-a cetaminophen 325 mg tablet RxNorm: 167663 1 Tablet(s) PO QID as needed 08/14/2016 09/12/2016 Inactive cyclobenzaprine 5 mg tablet RxNorm: 859434 1 Tablet(s) PO TID as needed 07/25/2016 07/29/2016 In active cyclobenzaprine 5 mg tablet RxNorm: 128994 1 Tablet(s) PO TID as needed 07/25/2016 07/24/2016 In active hydrocodone 7.5 mg-a cetaminophen 325 mg tablet RxNorm: 107859 1 Tablet(s) PO QID as needed 07/21/2016 08/13/2016 Inactive warfarin 1 mg tablet RxNorm: 715620 TAKE ONE TABLET BY MOUTH EVERY EVENING 06/26/2016 08/04/2016 In active hydrocodone 7.5 mg-a cetaminophen 325 mg tablet RxNorm: 237078 1 Tablet(s) PO QID as needed 06/24/2016 07/20/2016 Inactive hydrocodone 5 mg-yanira taminophen 325 mg tablet RxNorm: 992389 1 Tablet(s) PO Q6 as needed for pain 06/09/2016 06/10/2016 Inactive warfarin 1 mg tablet RxNorm: 301054 TAKE ONE TABLET BY MOUTH EVERY EVENING 06/02/2016 06/21/2016 In active allopurinol 100 mg t ablet RxNorm: 625936 TAKE ONE TABLET BY MO [facility] DAILY 05/21/2016 10/17/2016 In active hydrocodone 7.5 mg-a cetaminophen 325 mg tablet RxNorm: 335989 1 Tablet(s) PO QID as needed 05/09/2016 06/07/2016 Inactive gabapentin 300 mg ca psule RxNorm: 643017 Capsule(s) TAKE ONE C APSULE BY MOUTH THREE TIMES A DAY 04/25/2016 11/09/2017 Inactive promethazine 25 mg t ablet RxNorm: 736593 TAKE ONE TABLET BY MO [facility] THREE TIMES A DAY NEEDED 2016 05/01/2016 Inactive warfarin 1 mg tablet RxNorm: 911431 TAKE ONE TABLET BY MOUTH EVERY EVENING 2016 05/31/2016 In active promethazine 25 mg t ablet RxNorm: 403674 1 Tablet(s) PO TID as needed 04/16/2016 04/21/2016 In active warfarin 1 mg tablet RxNorm: 466773 TAKE ONE TABLET BY MOUTH EVERY EVENING 02/13/2016 04/12/2016 In active magnesium oxide 400 mg tablet RxNorm: 313548 TAKE ONE TABLET BY MO [facility] TWICE A DAY 02/07/2016 01/01/2017 In active hydrocodone 5 mg-yanira taminophen 325 mg tablet RxNorm: 097545 1 Tablet(s) PO Q6 as needed for pain 01/21/2016 02/19/2016 Inactive warfarin 1 mg tablet RxNorm: 645462 TAKE ONE TABLET BY MOUTH EVERY EVENING 01/17/2016 02/05/2016 In active gabapentin 300 mg ca psule RxNorm: 057355 Capsule(s) TAKE ONE C APSULE BY MOUTH THREE TIMES A DAY 01/11/2016 04/24/2016 Inactive prednisone 10 mg tablet RxNorm: 043060 Tablet(s) PO UD 01/10/2016 03/08/2018 Inactive 60mg x2 days, then 50mg x2 days, then 40mg x2 days, 30mg x2 days, 20mg x2 days, 10mg x2days, 5mg every other day x 2 doses Kenalog 40 mg/mL cassius pension for injection RxNorm: 0573671 Milliliter(s) Inj 01/07/2016 01/07/2016 In active warfarin 1 mg tablet RxNorm: 456974 TAKE ONE TABLET BY MOUTH EVERY EVENING 01/01/2016 01/16/2016 In active hydrocodone 5 mg-yanira taminophen 325 mg tablet RxNorm: 827858 1 Tablet(s) PO Q6 as needed for pain 01/01/2016 01/15/2016 Inactive gabapentin 300 mg ca psule RxNorm: 238373 TAKE ONE CAPSULE BY M [facility] THREE TIMES A DAY 12/12/2015 01/10/2016 Inactive warfarin 5 mg tablet RxNorm: 765542 1 Tablet(s) PO daily 12/05/2015 No Stop Date Active warfarin 1 mg tablet RxNorm: 973461 TAKE ONE TABLET BY MOUTH EVERY EVENING 11/13/2015 12/22/2015 In active hydrocodone 5 mg-yanira taminophen 325 mg tablet RxNorm: 535431 1 Tablet(s) PO Q6 as needed for pain 10/26/2015 11/09/2015 Inactive allopurinol 100 mg t ablet RxNorm: 382910 1 Tablet(s) PO daily TAKE ONE TABLET BY MOUTH DAILY 10/18/2015 04/14/2016 Inactive hydrocodone 5 mg-yanira taminophen 325 mg tablet RxNorm: 541487 1 Tablet(s) PO Q6 as needed for pain 09/26/2015 10/10/2015 Inactive gabapentin 300 mg ca psule RxNorm: 318381 TAKE ONE CAPSULE BY M [facility] THREE TIMES A DAY 09/14/2015 12/11/2015 Inactive warfarin 1 mg tablet RxNorm: 373164 1 Tablet(s) PO QPM 09/14/2015 11/12/2015 Inactive hydrocodone 5 mg-yanira taminophen 325 mg tablet RxNorm: 141075 1 Tablet(s) PO Q6 as needed for pain 09/12/2015 09/25/2015 Inactive hydrocodone 5 mg-yanira taminophen 325 mg tablet RxNorm: 131353 1 Tablet(s) PO Q6 as needed for pain 08/22/2015 09/05/2015 Inactive Bactrim DS 800 mg-16 0 mg tablet RxNorm: 977984 1 Tablet(s) PO BID 08/20/2015 09/02/2015 Inactive magnesium oxide 400 mg tablet RxNorm: 467516 TAKE ONE TABLET BY [facility] TWICE A DAY 01/20/2015 01/14/2016 In active gabapentin 300 mg ca psule RxNorm: 477090 TAKE ONE CAPSULE BY [facility] THREE TIMES A DAY 01/20/2015 05/19/2015 Inactive magnesium oxide 400 mg tablet RxNorm: 126678 1 Tablet(s) PO BID 01/17/2015 05/16/2015 Inactive gabapentin 300 mg ca psule RxNorm: 799064 1 Capsule(s) PO TID 01/17/2015 05/16/2015 Inactive allopurinol 100 mg t ablet RxNorm: 019961 TAKE ONE TABLET BY [facility] DAILY 10/18/2014 10/12/2015 In active Kenalog 40 mg/mL cassius pension for injection RxNorm: 5620968 1 Milliliter(s) Inj 09/21/2014 09/21/2014 In active allopurinol 100 mg t ablet RxNorm: 636963 1 Tablet(s) PO daily 09/21/2014 10/17/2014 Inactive gabapentin 300 mg ca psule RxNorm: 925549 1 Capsule(s) PO TID 09/12/2014 01/09/2015 Inactive gabapentin 300 mg ca psule RxNorm: 201412 1 Capsule(s) PO TID 09/12/2014 09/11/2014 Inactive magnesium oxide 400 mg tablet RxNorm: 005607 1 Tablet(s) PO BID 09/12/2014 01/09/2015 Inactive magnesium oxide 400 mg tablet RxNorm: 362771 1 Tablet(s) PO BID 09/12/2014 09/11/2014 Inactive lisinopril 5 mg tablet RxNorm: 011323 1 Tablet(s) PO daily No Start Date Active atorvastatin oral RxNorm: 41703 oral No Start Date Active Coreg 6.25 mg tablet RxNorm: 742201 1 Tablet(s) PO BID No Start Date Active Combivent Respimat 2 0 mcg-100 mcg/actuation solution for inhalation RxNorm: 0388044 1 Puff(s) INH as needed No Start Date Active Ventolin Refill 90 m cg/actuation aerosol inhaler RxNorm: 045573 2 INH as needed No Start Date Active Centrum Silver Women oral RxNorm: [address] art Date Active aspirin 81 mg capsul e,delayed release RxNorm: 217312 1 Capsule(s) PO daily No Start Date Active nystatin 100,000 uni t/gram topical powder RxNorm: 664949 1 Gram(s) TOP TID No Start Date 10/13/2016 Inactive warfarin 1 mg tablet RxNorm: 377873 oral No Start Date 09/13/2015 Inactive Pepcid 20 mg tablet RxNorm: 134137 1 Tablet(s) PO BID No Start Date 12/15/2016 Inactive Protonix 40 mg table t,delayed release RxNorm: 483991 1 Tablet(s) PO daily No Start Date 09/16/2016 Inactive warfarin 5 mg tablet RxNorm: 048013 1 Tablet(s) PO daily 1.5 tabs on Thu No Start Date 12/04/2015 Inactive minocycline 50 mg ca psule RxNorm: 730740 1 Capsule(s) PO BID o rdered by Dr. Saravia No Start Date 03/08/2018 Inactive furosemide 40 mg tablet RxNorm: 856209 1 Tablet(s) PO daily No Start Date 09/16/2016 Inactive Medication Administered Medication Codes Instruc tions Start Date Status Kenalog 40 mg/mL suspension for injection RxNorm: 1636832 Milliliter 01/07/2016 No longer Active Kenalog 40 mg/mL suspension for injection RxNorm: 8579028 1Milliliter 09/21/2014 N o longer Active Immunizations No Immunization data Assessments Condition Codes Effectiv e Dates Encounter for general adult medical exam ination with abnormal findings ICD-10: Z00.01 ICD-9: V70.0 10/19/2018 Localized edema ICD-10: R60.0 ICD-9: 782.3 06/10/2018 Varicose veins of right lower extremity with pain ICD-10: I83.811 ICD-9: 454.8 06/10/2018 Chronic pain syndrome ICD-10: G89.4 ICD-9: 338.4 03/11/2018 rn long term care (current) use of anticoagulants ICD-10: Z79.01 ICD-9: [...] neoplasm ICD-10: Z09 ICD-9: V67.59 10/11/2015 Other rn long term care (current) drug therapy ICD-10: Z79.899 ICD-9: V58.69 [...] Code Item Item Code Result Date Pt Igo4841 PT 43.8 seconds 10/19/2018 Pt Muq3449 INR 4.7 10/19/2018 Pt Czf6250 Low Intensity - 1.5-2.0 10/19/2018 Pt Tfx4011 Mod intensity - 2.0-3.0 10/19/2018 Pt Klk0495 Hi intensity - 3.0-4.0 10/19/2018 Comp Metabolic Sea892 NA 136 mEq/L 03/11/2018 Comp Metabolic Mkh756 K 4.3 mEq/L 03/11/2018 Comp Metabolic Tdx238 CL 101 mEq/L 03/11/2018 Comp Metabolic Mhw246 CO2 27.0 mEq/L 03/11/2018 Comp Metabolic Vzi886 AN ION GAP 12 03/11/2018 Comp Metabolic Khn214 GL UCOSE 87 mg/dL 03/11/2018 Comp Metabolic Wog956 Cr eat 1.0 mg/dL 03/11/2018 Comp Metabolic Ouk087 eG FR 79 ml/min/1.73m2 03/11 Comp Metabolic Vbw048 BUN 12 mg/dL 03/11/2018 Comp Metabolic Kiv895 B/ C Ratio 12.1 Ratio 03/11/2018 Comp Metabolic Mcw380 CA LCIUM 8.9 mg/dL 03/11/2018 Comp Metabolic Ito479 AL K PHOS 106 U/L 03/11/2018 Comp Metabolic Ljd383 T(SGOT) 16 U/L 03/11/2018 Comp Metabolic Vvp162 AL T(SGPT) 11 U/L 03/11/2018 Comp Metabolic Fiz393 BI LI T 0.4 mg/dL 03/11/2018 Comp Metabolic Kuc348 AL BUMIN 3.8 g/dL 03/11/2018 Comp Metabolic Tvs187 TP RO 6.5 g/dL 03/11/2018 Comp Metabolic Iyg916 GL OB 2.7 g/dL 03/11/2018 Comp Metabolic Hnf272 A/ G Ratio 1.4 Ratio 03/11/2018 Comp Metabolic Npr588 Os mo 271 mOsmo 03/11/2018 Cbc With [...] 29.8 pg 03/11/2018 Cbc With Differential Ord2 [place]% 11.3 % 03/11/2018 Cbc With Differential Ord2 [...] 2.87 K/ul 03/11/2018 Cbc With Differential Ord2 [place] ABS# 1.1 K/ul 03/11/2018 Cbc With Differential Ord2 E[place] ABS# 0.4 K/ul 03/11/2018 Cbc With Differential Ord2 Baso ABS# 0.0 K/ul 03/11/2018 Pt Sgw2488 PT 31.3 seconds 03/11/2018 Pt Iso2569 INR 3.1 03/11/2018 Pt Etm8891 Low Intensity - 1.5-2.0 03/11/2018 Pt Dpk6714 Mod intensity - 2.0-3.0 03/11/2018 Pt Akf9100 Hi intensity - 3.0-4.0 03/11/2018 Tsh Ord6 TSH (3rd IS) 2.01 uIU/mL 03/11/2018 Shiga Toxin 1 & 2 Eia Stool [id number] SHIGA TOXIN 1: NEGATIVE 04/12/2017 Shiga Toxin 1 & 2 Eia Stool [id number] SHIGA TOXIN 2: NEGATIVE 04/12/2017 Culture Stool [id number] STO OL CULTURE SEE NOTES 04/12/2017 Clostridium Diff Tox A/B Grh096 Cdiff Negative 04/09/2017 Pt Luy7918 PT 64.8 seconds 01/10/2016 Pt Dky8234 INR 8.6 01/10/2016 Pt Crv0327 Low Intensity - 1.5-2.0 01/10/2016 Pt Iub2647 Mod intensity - 2.0-3.0 01/10/2016 Pt Oug0438 Hi intensity - 3.0-4.0 01/10/2016 Pt Akb8541 PT 32.1 seconds 11/01/2014 Pt Csx9848 INR 3.2 11/01/2014 Pt Gnr7381 Low Intensity - 1.5-2.0 11/01/2014 Pt Pek9258 Mod intensity - 2.0-3.0 11/01/2014 Pt Nyd9222 Hi intensity - 3.0-4.0 11/01/2014 Pt Caz7634 PT 30.2 seconds 10/03/2014 Pt Huu9518 INR 3.0 10/03/2014 Pt Lbz7517 Low Intensity - 1.5-2.0 10/03/2014 Pt Gok4789 Mod intensity - 2.0-3.0 10/03/2014 Pt Csk3138 Hi intensity - 3.0-4.0 10/03/2014 D-Dimer D-DIMER 475 NG/ML 09/25/2014 D-Dimer COMMENT 09/25/2014 Magnesium Ord90 Mag 1.1 Result Verified By Repeat Analysis mg/dL 09/22/2014 Pt Pxo7826 PT 32.0 seconds 09/22/2014 Pt Dqe4947 INR 3.2 09/22/2014 Pt Kfe5680 Low Intensity - 1.5-2.0 09/22/2014 Pt Wpx6987 Mod intensity - 2.0-3.0 09/22/2014 Pt Hzs1651 Hi intensity - 3.0-4.0 09/22/2014 Comp Metabolic Sph360 NA 137 mEq/L 09/22/2014 Comp Metabolic Izn426 K 4.2 mEq/L 09/22/2014 Comp Metabolic Xsh640 CL 102 mEq/L 09/22/2014 Comp Metabolic Vll173 CO2 25.0 mEq/L 09/22/2014 Comp Metabolic Ufd357 AN ION GAP 14 09/22/2014 Comp Metabolic Jqs343 GL UCOSE 94 mg/dL 09/22/2014 Comp Metabolic Dbk160 Cr eat 0.8 mg/dL 09/22/2014 Comp Metabolic Bbo487 eG FR 102 ml/min/1.73m2 09/06 Comp Metabolic Acl079 BUN 15 mg/dL 09/22/2014 Comp Metabolic Gdw247 B/ C Ratio 18.8 Ratio 09/22/2014 Comp Metabolic Vap237 CA LCIUM 9.4 mg/dL 09/22/2014 Comp Metabolic Plz281 AL K PHOS 65 U/L 09/22/2014 Comp Metabolic Jsg732 T(SGOT) 15 U/L 09/22/2014 Comp Metabolic Xvt461 AL T(SGPT) 8 U/L 09/22/2014 Comp Metabolic Lod360 BI LI T 0.4 mg/dL 09/22/2014 Comp Metabolic Tmj127 AL BUMIN 4.0 g/dL 09/22/2014 Comp Metabolic Xzw081 TP RO 6.8 g/dL 09/22/2014 Comp Metabolic Qxy653 GL OB 2.8 g/dL 09/22/2014 Comp Metabolic Xqs936 A/ G Ratio 1.4 Ratio 09/22/2014 Comp Metabolic Rvu666 Os mo 274 mOsmo 09/22/2014 C-Reactive Protein [...] 4: G0439 10/19/2018 THER/PROPH/DIAG INJ SC/IM CPT-4: 76776 08/28/2017 ROCEPHIN, PER 250 MG CPT-4: J0696 08/28/2017 TOBACCO-USE RUBBER GRINDER 3-[address]: 838813913 CPT-4: G0436 01/27/2017 TOBACCO-USE RUBBER GRINDER 3-[address]: 020360031 CPT-4: G0436 11/25/2016 TOBACCO-USE RUBBER GRINDER 3-[address]: 656121744 CPT-4: G0436 10/15/2016 TOBACCO-USE RUBBER GRINDER 3-[address]: [id number] CPT-4: G0436 09/17/2016 THER/PROPH/DIAG INJ SC/IM CPT-4: 38512 01/07/2016 TRIAMCINOLONE ACET I [place] NOS CPT-4: J3301 01/07/2016 TRIAMCINOLONE ACET I [place] NOS CPT-4: J3301 09/21/2014 THER/PROPH/DIAG INJ SC/IM CPT-4: 18453 09/21/2014 Vital Signs Date Vital 10/19/2018 Blood Pressure 1: 130/76 Code: 8480-6 BMI: 33.1 Code: 25711-7 Heart Rate 1: 75 bpm Height: 5'3" SpO2: 97% Weight: 187 lbs 06/10/2018 Blood Pressure 1: 122/60 Code: 8480-6 BMI: 31.4 Code: 56438-5 Heart Rate 1: 75 bpm Height: 5'3" SpO2: 98% Weight: 177 lbs 03/11/2018 Blood Pressure 1: 134/82 Code: 8480-6 BMI: 32.8 Code: 42612-9 Heart Rate 1: 65 bpm Height: 5'3" SpO2: 96% Weight: 185 lbs 08/28/2017 Blood Pressure 1: 138/72 Code: 8480-6 Heart Rate 1: 80 bpm Height: SpO2: 98% Weight: 07/20/2017 Blood Pressure 1: 134/76 Code: 8480-6 BMI: 29.6 Code: 22101-0 Heart Rate 1: 82 bpm Height: 5'3" [...] 1: 128/78 Code: 8480-6 BMI: 33.3 Code: 62256-0 Heart Rate 1: 72 bpm Height: 5'3" SpO2: 97% Weight: 188 lbs 01/10/2016 Blood Pressure 1: 132/76 Code: 8480-6 BMI: 33.1 Code: 64558-2 Heart Rate 1: 72 bpm Height: 5'3" SpO2: 97% Weight: 187 lbs 12/25/2015 Blood Pressure 1: 154/82 Code: 8480-6 BMI: 33.1 Code: 11687-3 Heart Rate 1: 72 bpm Height: 5'3" SpO2: 97% Weight: 187 lbs 10/11/2015 Blood Pressure 1: 110/62 Code: 8480-6 BMI: 34.7 Code: 85608-8 Heart Rate 1: 70 bpm Height: 5'3" SpO2: 93% Weight: 196 lbs 08/24/2015 Blood Pressure 1: 132/62 Code: 8480-6 BMI: 35.3 Code: 35184-8 Heart Rate 1: 62 bpm Height: 5'3" SpO2: 93% Weight: 199 lbs 08/20/2015 Blood Pressure 1: 140/68 Code: 8480-6 BMI: 35.3 Code: 59208-9 Heart Rate 1: 74 bpm Height: 5'3" SpO2: 96% Weight: 199 lbs 12/28/2014 Blood Pressure 1: 130/72 Code: 8480-6 BMI: 33.1 Code: 44624-1 Heart Rate 1: 60 bpm Height: 5'3" SpO2: 97% Weight: 187 lbs 10/31/2014 Blood Pressure 1: 118/72 Code: 8480-6 BMI: 31.2 Code: 27185-4 Heart Rate 1: 58 bpm Height: 5'3" SpO2: 98% Weight: 176 lbs 10/02/2014 Blood Pressure 1: 138/74 Code: 8480-6 BMI: 30.6 Code: 57596-3 Heart Rate 1: 72 bpm Height: 5'3" Weight: 173 lbs 09/21/2014 Blood Pressure 1: 138/72 Code: 8480-6 BMI: 30.5 Code: 12738-5 Heart Rate 1: 60 bpm Height: 5'3" [...] daily 12/25/2015 None Hospital Follow Up _ [facility] er: diverticulitis 10/11/2015 None Hospital Follow Up [...] pain[ICD10: I83.811] [facility] CPT-4: 72703 06/10/2018 [id number] EST. 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 PATIENT, LEVEL III Diagnosis: Cellulitis of left axilla[ICD10: L03.112] Diagnosis: Cellulitis of right axilla[ICD10: L03.111] Rox Alvarez MD, [facility] CPT-4: 70145 08/28/2017 14007 EST. 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 PATIENT, LEVEL IV Diagnosis: Generalized anxiety disorder[ICD10: F41.1] Diagnosis: Major depressive disorder, single episode, moderate[ICD10: F32.1] Diagnosis: Diarrhea, unspecified[ICD10: R19.7] Rox Alvarez MD, [facility] CPT-4: 89454 04/21/2017 19465 EST. PATIENT, LEVEL IV Diagnosis: Generalized anxiety disorder[ICD10: F41.1] Diagnosis: Major depressive disorder, single episode, moderate[ICD10: F32.1] Diagnosis: Nausea[ICD10: R11.0] Diagnosis: Diarrhea, unspecified[ICD10: R19.7] Rox Alvarez MD, [facility] CPT-4: 20273 04/07/2017 ([id number]) 86391 EST. P ATIENT, LEVEL IV Diagnosis: Essential (primary) hypertension[ICD10: I10] Diagnosis: Nausea[ICD10: R11.0] Diagnosis: Other fecal abnormalities[ICD10: R19.5] Diagnosis: Tobacco use[ICD10: Z72.0] Selena Alvarez MD, [facility] CPT-4: 91798 01/27/2017 ([id number]) 36182 EST. P ATIENT, LEVEL III Diagnosis: Essential (primary) hypertension[ICD10: I10] Diagnosis: Chronic obstructive pulmonary disease, unspecified[ICD10: J44.9] Diagnosis: Rash and other nonspecific skin eruption[ICD10: R21] Selena Alvarez MD, [facility] CPT-4: 57041 11/25/2016 ([id number]) 61329 EST. [facility] Diagnosis: Other sites of candidiasis[ICD10: B37.89] Selena Alvarez MD, [facility] CPT-4: 35840 10/15/2016 ([id number]) 45084 EST. P ATIENT, LEVEL IV Diagnosis: Essential (primary) hypertension[ICD10: I10] Diagnosis: Urinary tract infection, site not specified[ICD10: N39.0] Diagnosis: Localized edema[ICD10: R60.0] Selena Alvarez MD, [facility] CPT-4: 92328 09/17/2016 28865 EST. 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 PATIENT, LEVEL III Diagnosis: Other specified bacterial intestinal infections[ICD10: A04.8] Rox Alvarez MD, [facility] CPT-4: 22828 04/16/2016 78768 EST. PATIENT, LEVEL II Diagnosis: Pain in right foot[ICD10: M79.671] Rox Alvarez MD, [facility] CPT-4: 58258 01/21/2016 53456 EST. PATIENT, LEVEL III Diagnosis: Encounter for therapeutic drug level monitoring[ICD10: Z51.81] Diagnosis: Rash and other nonspecific skin eruption[ICD10: R21] Rox Alvarez MD [facility] CPT-4: 81177 01/10/2016 60032 EST. PATIENT, LEVEL III Diagnosis: Rash and other nonspecific skin eruption[ICD10: R21] Rox Alvarez MD, [facility] CPT-4: 03840 01/07/2016 ([id number]) Miscellaneou s no charge Diagnosis: Cutaneous abscess of left axilla[ICD10: L02.412] Rox Alvarez MD, [facility] CPT-4: 91096 01/02/2016 ([id number]) Miscellaneou s no charge Diagnosis: Cutaneous abscess of left axilla[ICD10: L02.412] Rox Alvarez MD, [facility] CPT-4: 51710 01/01/2016 ([id number]) Miscellaneou s no charge Diagnosis: Cutaneous abscess of left axilla[ICD10: L02.412] [facility] CPT-4: 86668 12/31/2015 ([id number]) Patient adm itted to the hospital from clinic (NO CHARGE) Diagnosis: Cutaneous abscess of left axilla[ICD10: L02.412] Rox Alvarez MD, [facility] CPT-4: 73670B 12/25/2015 20921 EST. PATIENT, LEVEL III Diagnosis: Encounter for follow-up examination after completed treatment for conditions other than malignant neoplasm[ICD10: Z09] Diagnosis: Diverticulitis of intestine, part unspecified, without perforation or abscess with bleeding[ICD10: K57.93] Diagnosis: Cellulitis of left toe[ICD10: L03.032] Diagnosis: Other obesity due to excess calories[ICD10: E66.09] Diagnosis: Other rn long term care (current) drug therapy[ICD10: Z79.899] Rox Alvarez MD, [facility] CPT-4: 39193 10/11/2015 ([id number]) Miscellaneou s no charge Diagnosis: Encounter for therapeutic drug level monitoring[ICD10: Z51.81] Diagnosis: Other acute osteomyelitis, left ankle and foot[ICD10: M86.172] [facility] CPT-4: 23873 08/24/2015 41197 EST. PATIENT, LEVEL IV Diagnosis: Cellulitis of left toe[ICD10: L03.032] [facility] CPT-4: 23883 08/20/2015 23112 EST. PATIENT, LEVEL III Diagnosis: Essential (primary) hypertension[ICD10: I10] Diagnosis: Peripheral vascular disease, unspecified[ICD10: I73.9] Diagnosis: Dermatitis, unspecified[ICD10: L30.9] [facility] CPT- 4: 44543 12/28/2014 ([id number]) 53239 EST. P ATIENT, LEVEL III Diagnosis: ESSENTIAL HYPERTENSION[ICD9: 401.9] Diagnosis: PAD (peripheral artery disease)[ICD9: 443.9] Diagnosis: Anticoagulated on Coumadin[ICD9: V58.83] Emy Alvarez MD, [facility] CPT-4: 25222 10/31/2014 ([id number]) 46694 EST. P [facility], LEVEL III Diagnosis: PAD (peripheral artery disease)[ICD9: 443.9] Diagnosis: Anticoagulated on Coumadin[ICD9: V58.83] Diagnosis: SCLERITIS[ICD9: 379.00] Diagnosis: ESSENTIAL HYPERTENSION[ICD9: 401.9] [facility] CPT- 4: 55524 10/02/2014 ([id number]) OFFICE [facility] - LEVEL 4 Diagnosis: GOUT[ICD9: 274.9] Diagnosis: COPD (chronic obstructive pulmonary disease)[ICD9: 496] Diagnosis: PAD (peripheral artery disease)[ICD9: 443.9] Diagnosis: ESSENTIAL HYPERTENSION[ICD9: 401.9] Selena Alvarez MD, [facility] CPT- 4: 35122 09/21/2014 Plan of Care Planned Activity Notes [...] Summary Completed 10/19/2018 Appointment: Rox Luciano WPtel: [facility]0 [facility] (15 min) Moderate 09/08/2018 Visit Plan: Edema [...] vein specialist. 06/10/2018 Appointment: Rox Luciano WPtel: [facility]5 [facility] (30 min) Complex 06/10/2018 Patient Education: Patient [...] continue PT 03/11/2018 Appointment: Rox Luciano WPtel: [facility]3 [facility] (15 min) Moderate 03/11/2018 Patient Education: Patient Medication Summary Completed 03/11/2018 Appointment: Rox Luciano WPtel: [facility] (30 min) Complex 11/17/2017 Visit Plan: Cellulitis [...] warmth, discharge. 08/28/2017 Appointment: Rox Luciano WPtel: [facility]5 [facility] (30 min) [facility] 08/28/2017 Patient Education: Patient Medication Summary Completed [...] PT 07/20/2017 [phone] [facility] 07/20/2017 Patient Education: Patient Medication Summary Completed 07/20/2017 Referral: Stephanie Silva WPtel: Referral Initiated 05/04/2017 Care Plan: Referral Order SNOMED-CT : [id number] Pending 04/30/2017 Visit Plan: Chronic Depression and [...] pain. 04/21/2017 Appointment: [phone] ([facility] min) Complex 04/21/2017 Patient Education: Patient [...] pain. 04/07/2017 Appointment: [phone] ([facility] min) Complex 04/07/2017 Patient Education: Patient Medication Summary Completed 04/07/2017 Appointment: Selena Alvarez WPtel: [facility]5 [facility] (15 min) Moderate 02/26/2017 Visit Plan: Hypertension [...] improving. 01/27/2017 Appointment: Selena Alvarez WPtel: [phone] [facility] (15 min) Moderate 01/27/2017 Patient Education: Patient [...] with nystatin 11/25/2016 Appointment: Selena Alvarez WPtel: [phone] [facility] (15 min) Moderate 11/25/2016 Appointment: Selena Alvarez WPtel: [phone] [facility] (15 min) Moderate 11/25/2016 Patient Education: Patient [...] over-medication. 10/15/2016 Appointment: Selena Alvarez WPtel: [phone] [facility] (15 min) Moderate 10/15/2016 Patient Education: Patient Medication Summary Completed 10/15/2016 Patient Education: Smoking and Tobacco Addiction Completed 10/15/2016 Appointment: [phone] ([facility] min) Complex 09/18/2016 Visit Plan: Hypertension [...] evaluation. 08/14/2016 Appointment: [phone] ([facility] min) Complex 08/14/2016 Patient Education: Patient [...] pain. 04/16/2016 Appointment: [phone] (15 min) Moderate 04/16/2016 Patient Education: Patient Medication Summary Completed 04/16/2016 Patient Education: Smoking and Tobacco Addiction Completed 04/16/2016 Referral: Dr Arboleda Referral Completed 02/14/2016 Care Plan: Referral Order SNOMED-CT : [id number] Pending 01/29/2016 Visit Plan: Right foot pain [...] warmth, discharge. 01/10/2016 Appointment: Rox Luciano WPtel: [address] [place], [place] [address] (30 min) [facility] 01/10/2016 Patient Education: Patient Medication Summary Completed [...] - Pt states that he went to [facility] for the abscess and they started him on an antibiotic and told him to go home and drain it himself. Axilla to lateral chest wall is erythematous with large area of induration. 3 open sites with thick purulent drainage noted - Dr. Alvarez in to see pt - will admit for IV antibiotics and further I&D. 12/25/2015 Appointment: Emy Westbrook [facility]Ptel[phone] [facility] [place] (15 min) Moderate 12/25/2015 Patient Education: [...] care management. 10/11/2015 Appointment: [facility]ox Luciano [facility]Ptel[phone] [facility] (30 min) Complex 10/11/2015 Patient Education: Patient Medication Summary Completed 10/11/2015 Patient Education: Smoking and Tobacco Addiction Completed 10/11/2015 Patient Education: Obesity Completed 10/11/2015 Referral: Gavino Navarro they are g oing to call if they get him in before if not we will call Dr shook Initiated 09/27/2015 Appointment: Emy Westbrook WPtel: [facility]9 [phone] (15 min) Moderate 08/24/2015 Patient Education: Patient Medication Summary Completed 08/24/2015 Patient Education: Smoking and Tobacco Addiction Completed 08/24/2015 Patient Education: Patient Medication Summary Completed 08/23/2015 Appointment: Emy Westbrook WPtel: [phone] [phone] (30 min) Complex 08/22/2015 Referral: [facility] Referral Initiated 08/22/2015 Visit Plan: Pt on [...] Completed 12/28/2014 Appointment: [phone] [facility] up 12/20/2014 Visit Plan: Hypertension - [...] 09/21/2014 Care Plan: Referral Order SNOMED-CT : [id number] Ordered 09/21/2014 Appointment: Selena Alvarez WPtel: [phone] [place] [phone] [place] (S) New Patient 09/20/2014 Referral: Martinez Wren WPtel: [phone] Referral Initiated Referral: Gavino Navarro Referral Initiated Referral: [facility] WPtel: 1 [facility] Referral Initiated Referral: Dr Arboleda Referral Completed Referral: Stpehanie Silva WPtel: Referral Initiated Instructions Comment 5mg [...] worsening redness, warmth, discharge. probiotics - culture [facility]. . Gastroenteritis - discussed need to stay [...] potassium daily x 5 days let your institutional research coordinator know that you are having some swelling. [...]
--- OUTSIDE RECORDS SUMMARY | 2019-08-20 18:11 | XMS REPORT | CCD ---
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 Role Phone PP Unavailable CCM Unavailable Summary Purpose Interface Exchange Insurance Providers Payer name Policy type / Coverage type Covered green party ID Effective Begin Date Effective End Date [facility] Commercial Insurance [id number] 2017 Unknown Family history Father Diagnosis Age At Onset Hyperlipidemia Unknown Coronary Artery Disease Unknown Stroke Unknown Cancer Unknown Congestive heart failure Unknown Mother Diagnosis Age At Onset Hypertension Unknown kidney disease Unknown Cancer Unknown Stroke Unknown Hyperlipidemia Unknown Coronary Artery Disease Unknown Congestive heart failure Unknown Social History Social History Element Codes Description Effective Dates Tobacco history SNOMED CT: 429463379194473 Current some days smoker 09/21/2014 Allergies, Adverse Reactions, Alerts Substance Reaction Codes Entered Date Inactivated Date Status MORPHINE AND RELATED Unknown 09/21/2014 No Inactive Date Active SULFA(SULFONAMIDE AN TIBIOTICS) Unknown 01/21/2016 No Inactive Date Active Past Medical History Illness Codes Condition Status Onset Date Resolved Date Localized edema ICD-9: 782.3 ICD-10: R60.0 Active [...] ICD-9: 300.00 ICD-10: F41.1 Active 04/21/2017 Unknown [facility] (current) use of anticoagulants ICD-9: V58.61 ICD-10: Z79.01 Active 03/11/2018 Unknown Major depressive dis order, single episode, [...] V67.59 ICD-10: Z09 Active 10/10/2015 Unknown Other skilled nursing (cur rent) drug therapy ICD-9: V58.69 ICD-10: [...] Condition Codes Effectiv e Dates Condition Status Localized edema ICD-9: 782.3 ICD-10: R60.0 09/17/2016 Active Varicose veins of ri ght lower extremity with pain ICD-9: 454.8 ICD-10: I83.811 06/10/2018 Active 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 ICD-10: Z89.612 08/14/2016 Active Chronic pain syndrome ICD-9: 338.4 ICD-10: G89.4 07/20/2017 Active Essential (primary) hypertension ICD-9: 401.9 ICD-10: I10 12/27/2014 Active Generalized anxiety disorder ICD-9: 300.00 ICD-10: F41.1 04/21/2017 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-9: V58.61 ICD-10: Z79.01 03/11/2018 Active Major depressive dis order, single episode, [...] ICD-9: V67.59 ICD-10: Z09 10/10/2015 Active Other skilled nursing (cur rent) drug therapy ICD-9: V58.69 ICD-10: [...] Date Stop Date Sta tus Fill Instructions Pepcid 20 mg tablet RxNorm: 101546 TAKE ONE TABLET BY MOUTH TWICE A DAY 10/07/2018 01/04/2019 Ac tive gabapentin 300 mg ca psule RxNorm: 176070 TAKE ONE CAPSULE BY M [facility] THREE TIMES A DAY 10/07/2018 03/05/2019 Ac tive hydrocodone 7.5 mg-a cetaminophen 325 mg tablet RxNorm: 151022 1 Tablet(s) PO QID as needed 09/16/2018 10/15/2018 Active furosemide 40 mg tablet RxNorm: 126880 TAKE ONE TABLET BY MOUTH DAILY NEEDED FOR SWELLING 09/10/2018 02/06/2019 Active hydrocodone 7.5 mg-a cetaminophen 325 mg tablet RxNorm: 892909 1 Tablet(s) PO QID as needed 08/18/2018 09/15/2018 Inactive Lexapro 10 mg tablet RxNorm: 291536 TAKE ONE TABLET BY MOUTH AT BEDTIME 08/03/2018 06/28/2019 Ac tive hydrocodone 7.5 mg-a cetaminophen 325 mg tablet RxNorm: 378751 1 Tablet(s) PO QID as needed 07/15/2018 08/13/2018 Inactive Keflex 500 mg capsule RxNorm: 365359 1 Capsule(s) PO TID 06/11/2018 06/17/2018 Inactive Pepcid 20 mg tablet RxNorm: 095793 TAKE ONE TABLET BY MOUTH TWICE A DAY 05/25/2018 09/21/2018 In active hydrocodone 7.5 mg-a cetaminophen 325 mg tablet RxNorm: 190560 1 Tablet(s) PO QID as needed 05/19/2018 06/17/2018 Inactive hydrocodone 7.5 mg-a cetaminophen 325 mg tablet RxNorm: 869098 1 Tablet(s) PO QID as needed 04/19/2018 05/18/2018 Inactive allopurinol 100 mg t ablet RxNorm: 138075 TAKE ONE TABLET BY [facility] DAILY 04/06/2018 03/01/2019 Ac tive hydrocodone 7.5 mg-a cetaminophen 325 mg tablet RxNorm: 364845 1 Tablet(s) PO QID as needed 03/11/2018 04/09/2018 Inactive potassium chloride E R 20 mEq tablet,extended release RxNorm: 495892 Tablet(s) TAKE ONE TABLET BY MOUTH DAILY WHEN TAKING FUROSEMIDE NEEDED 03/05/2018 08/31/2018 Inactive gabapentin 300 mg ca psule RxNorm: 268530 TAKE ONE CAPSULE BY [facility] THREE TIMES A DAY 03/04/2018 10/06/2018 Inactive hydrocodone 7.5 mg-a cetaminophen 325 mg tablet RxNorm: 271529 1 Tablet(s) PO QID as needed 02/18/2018 03/10/2018 Inactive hydrocodone 7.5 mg-a cetaminophen 325 mg tablet RxNorm: 794146 1 Tablet(s) PO QID as needed 01/19/2018 02/17/2018 Inactive hydrocodone 7.5 mg-a cetaminophen 325 mg tablet RxNorm: 983641 1 Tablet(s) PO QID as needed 12/16/2017 01/14/2018 Inactive Pepcid 20 mg tablet RxNorm: 106661 Tablet(s) TAKE ONE TABLET BY MOUTH TWICE A DAY 12/08/2017 05/06/2018 Inactive hydrocodone 7.5 mg-a cetaminophen 325 mg tablet RxNorm: 944774 1 Tablet(s) PO QID as needed 11/18/2017 12/15/2017 Inactive gabapentin 300 mg ca psule RxNorm: 217683 Capsule(s) TAKE ONE C APSULE BY MOUTH THREE TIMES A DAY 11/11/2017 03/03/2018 Inactive gabapentin 300 mg ca psule RxNorm: 749865 TAKE ONE CAPSULE BY M [facility] THREE TIMES A DAY 11/10/2017 11/10/2017 Inactive hydrocodone 7.5 mg-a cetaminophen 325 mg tablet RxNorm: 084349 1 Tablet(s) PO QID as needed 10/19/2017 11/17/2017 Inactive hydrocodone 7.5 mg-a cetaminophen 325 mg tablet RxNorm: 396095 1 Tablet(s) PO QID as needed 09/16/2017 10/15/2017 Inactive doxycycline hyclate 100 mg capsule RxNorm: 0916147 1 Capsule(s) PO BID 08/28/2017 09/06/2017 In active hydrocodone 7.5 mg-a cetaminophen 325 mg tablet RxNorm: 646177 1 Tablet(s) PO QID as needed 08/21/2017 09/15/2017 Inactive Lexapro 10 mg tablet RxNorm: 192087 TAKE ONE TABLET BY MOUTH AT BEDTIME 08/02/2017 07/27/2018 In active Zyrtec 10 mg tablet RxNorm: 9163740 1 Tablet(s) PO daily 07/20/2017 11/16/2017 Inactive hydrocodone 7.5 mg-a cetaminophen 325 mg tablet RxNorm: 514909 1 Tablet(s) PO QID as needed 07/20/2017 09/15/2017 Inactive furosemide 40 mg tablet RxNorm: 563258 Tablet(s) TAKE ONE TABLET BY MOUTH DAILY NEEDED FOR SWELLING 07/08/2017 01/03/2018 Inactive Pepcid 20 mg tablet RxNorm: 224694 TAKE ONE TABLET BY MOUTH TWICE A DAY 06/29/2017 11/25/2017 In active gabapentin 300 mg ca psule RxNorm: 736298 TAKE ONE CAPSULE BY M [facility] THREE TIMES A DAY 06/29/2017 10/26/2017 Inactive hydrocodone 7.5 mg-a cetaminophen 325 mg tablet RxNorm: 715915 1 Tablet(s) PO QID as needed 06/18/2017 07/17/2017 Inactive hydrocodone 7.5 mg-a cetaminophen 325 mg tablet RxNorm: 984312 1 Tablet(s) PO QID as needed 05/18/2017 06/16/2017 Inactive hydrocodone 7.5 mg-a cetaminophen 325 mg tablet RxNorm: 929076 1 Tablet(s) PO QID as needed 04/21/2017 05/17/2017 Inactive hyoscyamine 0.125 mg sublingual tablet RxNorm: 5444714 1 Tablet(s) SL TID a s needed 04/21/2017 04/25/2017 In active Lexapro 10 mg tablet RxNorm: 234362 1 Tablet(s) PO QHS 04/21/2017 07/19/2017 Inactive Flagyl 500 mg tablet RxNorm: 198167 1 Tablet(s) PO TID 04/07/2017 04/16/2017 Inactive Lexapro 10 mg tablet RxNorm: 165759 1 Tablet(s) PO QHS 04/07/2017 04/20/2017 Inactive hydrocodone 7.5 mg-a cetaminophen 325 mg tablet RxNorm: 125851 1 Tablet(s) PO QID as needed 03/24/2017 04/20/2017 Inactive allopurinol 100 mg t ablet RxNorm: 434841 TAKE ONE TABLET BY [facility] DAILY 03/10/2017 03/04/2018 In active hydrocodone 7.5 mg-a cetaminophen 325 mg tablet RxNorm: 820230 1 Tablet(s) PO QID as needed 02/11/2017 03/12/2017 Inactive gabapentin 300 mg ca psule RxNorm: 117991 TAKE ONE CAPSULE BY M [facility] THREE TIMES A DAY 02/02/2017 06/28/2017 Inactive Zofran ODT 4 mg disi ntegrating tablet RxNorm: 247319 1 Tablet(s) PO QID as needed nausea and vomitting 01/27/2017 No Stop Date Active hydrocodone 7.5 mg-a cetaminophen 325 mg tablet RxNorm: 068349 1 Tablet(s) PO QID as needed 01/13/2017 02/10/2017 Inactive potassium chloride E R 20 mEq tablet,extended release RxNorm: 834617 TAKE ONE TABLET BY MOUTH DAILY WHEN TAKING FUROSEMIDE NEEDED 01/12/2017 07/10/2017 Inactive furosemide 40 mg tablet RxNorm: 626093 TAKE ONE TABLET BY MOUTH DAILY NEEDED FOR SWELLING 01/12/2017 07/09/2017 Inactive promethazine 25 mg t ablet RxNorm: 990101 TAKE ONE TABLET BY [facility] THREE TIMES A DAY NEEDED FOR NAUSEA AND VOMITING 01/12/2017 01/31/2017 Inactive promethazine 25 mg t ablet RxNorm: 387424 1 Tablet(s) PO TID as needed nausea and vomitting 01/06/2017 01/11/2017 Inactive Lomotil 2.5 mg-0.025 mg tablet RxNorm: 3174123 1-2 Tablet(s) PO BID as needed diarrhea 01/06/2017 01/05/2017 Inactive Lomotil 2.5 mg-0.025 mg tablet RxNorm: 1554380 1-2 Tablet(s) PO BID as needed diarrhea 01/06/2017 01/07/2017 Inactive Pepcid 20 mg tablet RxNorm: 001460 1 Tablet(s) PO BID 12/19/2016 06/16/2017 Inactive Pepcid 20 mg tablet RxNorm: 506606 1 Tablet(s) PO BID 12/16/2016 12/18/2016 Inactive hydrocodone 7.5 mg-a cetaminophen 325 mg tablet RxNorm: 824010 1 Tablet(s) PO QID as needed 12/16/2016 01/12/2017 Inactive hydrocodone 7.5 mg-a cetaminophen 325 mg tablet RxNorm: 826747 1 Tablet(s) PO QID as needed 11/18/2016 12/15/2016 Inactive allopurinol 100 mg t ablet RxNorm: 949848 TAKE ONE TABLET BY [facility] DAILY 10/29/2016 02/25/2017 In active hydrocodone 7.5 mg-a cetaminophen 325 mg tablet RxNorm: 240203 1 Tablet(s) PO QID as needed 10/15/2016 11/13/2016 Inactive nystatin 100,000 uni t/gram topical cream RxNorm: 574264 1 Gram(s) TOP QID 10/15/2016 11/25/2016 In active nystatin 100,000 uni t/gram topical powder RxNorm: 169237 1 Gram(s) TOP TID TO GROIN OR AFFECTED AREA 10/14/2016 No Stop Date Active hydrocodone 7.5 mg-a cetaminophen 325 mg tablet RxNorm: 448130 1 Tablet(s) PO QID as needed 09/17/2016 10/14/2016 Inactive furosemide 40 mg tablet RxNorm: 569071 1 Tablet(s) PO daily as needed swelling 09/17/2016 01/11/2017 In active potassium chloride E R 20 mEq tablet,extended release RxNorm: 792068 1 Tablet(s) PO daily as needed take when taking a lasix pill 09/17/2016 01/11/2017 Inactive Levaquin 500 mg tablet RxNorm: 825536 1 Tablet(s) PO daily 09/17/2016 09/21/2016 Inactive hydrocodone 7.5 mg-a cetaminophen 325 mg tablet RxNorm: 629464 1 Tablet(s) PO QID as needed 08/14/2016 09/12/2016 Inactive cyclobenzaprine 5 mg tablet RxNorm: 830480 1 Tablet(s) PO TID as needed 07/25/2016 07/29/2016 In active cyclobenzaprine 5 mg tablet RxNorm: 591110 1 Tablet(s) PO TID as needed 07/25/2016 07/24/2016 In active hydrocodone 7.5 mg-a cetaminophen 325 mg tablet RxNorm: 315727 1 Tablet(s) PO QID as needed 07/21/2016 08/13/2016 Inactive warfarin 1 mg tablet RxNorm: 862761 TAKE ONE TABLET BY MOUTH EVERY EVENING 06/26/2016 08/04/2016 In active hydrocodone 7.5 mg-a cetaminophen 325 mg tablet RxNorm: 023733 1 Tablet(s) PO QID as needed 06/24/2016 07/20/2016 Inactive hydrocodone 5 mg-yanira taminophen 325 mg tablet RxNorm: 490890 1 Tablet(s) PO Q6 as needed for pain 06/09/2016 06/10/2016 Inactive warfarin 1 mg tablet RxNorm: 577386 TAKE ONE TABLET BY MOUTH EVERY EVENING 06/02/2016 06/21/2016 In active allopurinol 100 mg t ablet RxNorm: 033077 TAKE ONE TABLET BY [facility] DAILY 05/21/2016 10/17/2016 In active hydrocodone 7.5 mg-a cetaminophen 325 mg tablet RxNorm: 605690 1 Tablet(s) PO QID as needed 05/09/2016 06/07/2016 Inactive gabapentin 300 mg ca psule RxNorm: 593026 Capsule(s) TAKE ONE C APSULE BY MOUTH THREE TIMES A DAY 04/25/2016 11/09/2017 Inactive promethazine 25 mg t ablet RxNorm: 868454 TAKE ONE TABLET BY [facility] THREE TIMES A DAY NEEDED 2016 05/01/2016 Inactive warfarin 1 mg tablet RxNorm: 144213 TAKE ONE TABLET BY MOUTH EVERY EVENING 2016 05/31/2016 In active promethazine 25 mg t ablet RxNorm: 820904 1 Tablet(s) PO TID as needed 04/16/2016 04/21/2016 In active warfarin 1 mg tablet RxNorm: 742800 TAKE ONE TABLET BY MOUTH EVERY EVENING 02/13/2016 04/12/2016 In active magnesium oxide 400 mg tablet RxNorm: 487895 TAKE ONE TABLET BY [facility] TWICE A DAY 02/07/2016 01/01/2017 In active hydrocodone 5 mg-yanira taminophen 325 mg tablet RxNorm: 210562 1 Tablet(s) PO Q6 as needed for pain 01/21/2016 02/19/2016 Inactive warfarin 1 mg tablet RxNorm: 959613 TAKE ONE TABLET BY MOUTH EVERY EVENING 01/17/2016 02/05/2016 In active gabapentin 300 mg ca psule RxNorm: 189925 Capsule(s) TAKE ONE C APSULE BY MOUTH THREE TIMES A DAY 01/11/2016 04/24/2016 Inactive prednisone 10 mg tablet RxNorm: 291960 Tablet(s) PO UD 01/10/2016 03/08/2018 Inactive 60mg x2 days, then 50mg x2 days, then 40mg x2 days, 30mg x2 days, 20mg x2 days, 10mg x2days, 5mg every other day x 2 doses Kenalog 40 mg/mL cassius pension for injection RxNorm: 6974779 Milliliter(s) Inj 01/07/2016 01/07/2016 In active warfarin 1 mg tablet RxNorm: 294734 TAKE ONE TABLET BY MOUTH EVERY EVENING 01/01/2016 01/16/2016 In active hydrocodone 5 mg-yanira taminophen 325 mg tablet RxNorm: 966037 1 Tablet(s) PO Q6 as needed for pain 01/01/2016 01/15/2016 Inactive gabapentin 300 mg ca psule RxNorm: 262262 TAKE ONE CAPSULE BY M [facility] THREE TIMES A DAY 12/12/2015 01/10/2016 Inactive warfarin 5 mg tablet RxNorm: 041505 1 Tablet(s) PO daily 12/05/2015 No Stop Date Active warfarin 1 mg tablet RxNorm: 758250 TAKE ONE TABLET BY MOUTH EVERY EVENING 11/13/2015 12/22/2015 In active hydrocodone 5 mg-yanira taminophen 325 mg tablet RxNorm: 695502 1 Tablet(s) PO Q6 as needed for pain 10/26/2015 11/09/2015 Inactive allopurinol 100 mg t ablet RxNorm: 025832 1 Tablet(s) PO daily TAKE ONE TABLET BY MOUTH DAILY 10/18/2015 04/14/2016 Inactive hydrocodone 5 mg-yanira taminophen 325 mg tablet RxNorm: 355488 1 Tablet(s) PO Q6 as needed for pain 09/26/2015 10/10/2015 Inactive gabapentin 300 mg ca psule RxNorm: 611777 TAKE ONE CAPSULE BY M [facility] THREE TIMES A DAY 09/14/2015 12/11/2015 Inactive warfarin 1 mg tablet RxNorm: 434781 1 Tablet(s) PO QPM 09/14/2015 11/12/2015 Inactive hydrocodone 5 mg-yanira taminophen 325 mg tablet RxNorm: 198628 1 Tablet(s) PO Q6 as needed for pain 09/12/2015 09/25/2015 Inactive hydrocodone 5 mg-yanira taminophen 325 mg tablet RxNorm: 196019 1 Tablet(s) PO Q6 as needed for pain 08/22/2015 09/05/2015 Inactive Bactrim DS 800 mg-16 0 mg tablet RxNorm: 219954 1 Tablet(s) PO BID 08/20/2015 09/02/2015 Inactive magnesium oxide 400 mg tablet RxNorm: 870126 TAKE ONE TABLET BY [facility] TWICE A DAY 01/20/2015 01/14/2016 In active gabapentin 300 mg ca psule RxNorm: 145250 TAKE ONE CAPSULE BY [facility] THREE TIMES A DAY 01/20/2015 05/19/2015 Inactive magnesium oxide 400 mg tablet RxNorm: 228201 1 Tablet(s) PO BID 01/17/2015 05/16/2015 Inactive gabapentin 300 mg ca psule RxNorm: 811274 1 Capsule(s) PO TID 01/17/2015 05/16/2015 Inactive allopurinol 100 mg t ablet RxNorm: 754054 TAKE ONE TABLET BY [facility] DAILY 10/18/2014 10/12/2015 In active Kenalog 40 mg/mL cassius pension for injection RxNorm: 4184051 1 Milliliter(s) Inj 09/21/2014 09/21/2014 In active allopurinol 100 mg t ablet RxNorm: 063416 1 Tablet(s) PO daily 09/21/2014 10/17/2014 Inactive gabapentin 300 mg ca psule RxNorm: 406735 1 Capsule(s) PO TID 09/12/2014 01/09/2015 Inactive gabapentin 300 mg ca psule RxNorm: 962924 1 Capsule(s) PO TID 09/12/2014 09/11/2014 Inactive magnesium oxide 400 mg tablet RxNorm: 057185 1 Tablet(s) PO BID 09/12/2014 01/09/2015 Inactive magnesium oxide 400 mg tablet RxNorm: 775297 1 Tablet(s) PO BID 09/12/2014 09/11/2014 Inactive lisinopril 5 mg tablet RxNorm: 623180 1 Tablet(s) PO daily No Start Date Active atorvastatin oral RxNorm: 46978 oral No Start Date Active Coreg 6.25 mg tablet RxNorm: 711922 1 Tablet(s) PO BID No Start Date Active Combivent Respimat 2 0 mcg-100 mcg/actuation solution for inhalation RxNorm: 6509166 1 Puff(s) INH as needed No Start Date Active Ventolin Refill 90 m cg/actuation aerosol inhaler RxNorm: 208921 2 INH as needed No Start Date Active Centrum Silver Women oral RxNorm: [address] art Date Active aspirin 81 mg capsul e,delayed release RxNorm: 276069 1 Capsule(s) PO daily No Start Date Active nystatin 100,000 uni t/gram topical powder RxNorm: 954734 1 Gram(s) TOP TID No Start Date 10/13/2016 Inactive warfarin 1 mg tablet RxNorm: 063512 oral No Start Date 09/13/2015 Inactive Pepcid 20 mg tablet RxNorm: 258694 1 Tablet(s) PO BID No Start Date 12/15/2016 Inactive Protonix 40 mg table t,delayed release RxNorm: 714300 1 Tablet(s) PO daily No Start Date 09/16/2016 Inactive warfarin 5 mg tablet RxNorm: 678210 1 Tablet(s) PO daily 1.5 tabs on Thu No Start Date 12/04/2015 Inactive minocycline 50 mg ca psule RxNorm: 241798 1 Capsule(s) PO BID o rdered by Dr. Saravia No Start Date 03/08/2018 Inactive furosemide 40 mg tablet RxNorm: 220182 1 Tablet(s) PO daily No Start Date 09/16/2016 Inactive Medication Administered Medication Codes Instruc tions Start Date Status Kenalog 40 mg/mL suspension for injection RxNorm: 0061056 Milliliter 01/07/2016 No longer Active Kenalog 40 mg/mL suspension for injection RxNorm: 7747241 1Milliliter 09/21/2014 N o longer Active Immunizations No Immunization data Assessments Condition Codes Effectiv e Dates Localized edema ICD-10: R60.0 ICD-9: 782.3 06/10/2018 Varicose veins of right lower extremity with pain ICD-10: I83.811 ICD-9: 454.8 06/10/2018 Chronic pain syndrome ICD-10: G89.4 ICD-9: 338.4 03/11/2018 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-10: Z79.01 ICD-9: [...] neoplasm ICD-10: Z09 ICD-9: V67.59 10/11/2015 Other skilled nursing (current) drug therapy ICD-10: Z79.899 ICD-9: V58.69 [...] Visit Reason For Visit Effective Dates Notes edema 06/10/2018 medication follow up 03/11/2018 cellulitis [...] Observation Code Item Item Code Result Date Comp Metabolic Kze900 NA 136 mEq/L 03/11/2018 Comp Metabolic Jon134 K 4.3 mEq/L 03/11/2018 Comp Metabolic Wfe032 CL 101 mEq/L 03/11/2018 Comp Metabolic Ypf715 CO2 27.0 mEq/L 03/11/2018 Comp Metabolic Ors641 AN ION GAP 12 03/11/2018 Comp Metabolic Oif313 GL UCOSE 87 mg/dL 03/11/2018 Comp Metabolic Idn582 Cr eat 1.0 mg/dL 03/11/2018 Comp Metabolic Avk609 eG FR 79 ml/min/1.73m2 03/11 Comp Metabolic Tea216 BUN 12 mg/dL 03/11/2018 Comp Metabolic Vqt409 B/ C Ratio 12.1 Ratio 03/11/2018 Comp Metabolic Pzm076 CA LCIUM 8.9 mg/dL 03/11/2018 Comp Metabolic Ooj552 AL K PHOS 106 U/L 03/11/2018 Comp Metabolic Eqc306 T(SGOT) 16 U/L 03/11/2018 Comp Metabolic Myo733 AL T(SGPT) 11 U/L 03/11/2018 Comp Metabolic Gof995 BI LI T 0.4 mg/dL 03/11/2018 Comp Metabolic Ldx371 AL BUMIN 3.8 g/dL 03/11/2018 Comp Metabolic Pdh805 TP RO 6.5 g/dL 03/11/2018 Comp Metabolic Bpr429 GL OB 2.7 g/dL 03/11/2018 Comp Metabolic Lqb072 A/ G Ratio 1.4 Ratio 03/11/2018 Comp Metabolic Kwj556 Os mo 271 mOsmo 03/11/2018 Cbc With [...] 29.8 pg 03/11/2018 Cbc With Differential Ord2 [place]% 11.3 % 03/11/2018 Cbc With Differential Ord2 [...] 2.87 K/ul 03/11/2018 Cbc With Differential Ord2 [place] ABS# 1.1 K/ul 03/11/2018 Cbc With Differential Ord2 Eos ABS# 0.4 K/ul 03/11/2018 Cbc With Differential Ord2 Baso ABS# 0.0 K/ul 03/11/2018 Pt Brv1593 PT 31.3 seconds 03/11/2018 Pt Sdd2259 INR 3.1 03/11/2018 Pt Uyn3629 Low Intensity - 1.5-2.0 03/11/2018 Pt Bnm4278 Mod intensity - 2.0-3.0 03/11/2018 Pt Slo8096 Hi intensity - 3.0-4.0 03/11/2018 Tsh Ord6 TSH (3rd IS) 2.01 uIU/mL 03/11/2018 Shiga Toxin 1 & 2 Eia Stool [id number] SHIGA TOXIN 1: NEGATIVE 04/12/2017 Shiga Toxin 1 & 2 Eia Stool [id number] SHIGA TOXIN 2: NEGATIVE 04/12/2017 Culture Stool [id number] STO OL CULTURE SEE NOTES 04/12/2017 Clostridium Diff Tox A/B Cwo417 Cdiff Negative 04/09/2017 Pt Jfk9507 PT 64.8 seconds 01/10/2016 Pt Ozr1557 INR 8.6 01/10/2016 Pt Awt0278 Low Intensity - 1.5-2.0 01/10/2016 Pt Cbr1189 Mod intensity - 2.0-3.0 01/10/2016 Pt Lbq6167 Hi intensity - 3.0-4.0 01/10/2016 Pt Lzu9524 PT 32.1 seconds 11/01/2014 Pt Ydu7956 INR 3.2 11/01/2014 Pt Num3757 Low Intensity - 1.5-2.0 11/01/2014 Pt Lyf6088 Mod intensity - 2.0-3.0 11/01/2014 Pt Nvm2808 Hi intensity - 3.0-4.0 11/01/2014 Pt Jsg0890 PT 30.2 seconds 10/03/2014 Pt Les4037 INR 3.0 10/03/2014 Pt Nae9118 Low Intensity - 1.5-2.0 10/03/2014 Pt Bmc1838 Mod intensity - 2.0-3.0 10/03/2014 Pt Dbu9815 Hi intensity - 3.0-4.0 10/03/2014 D-Dimer D-DIMER 475 NG/ML 09/25/2014 D-Dimer COMMENT 09/25/2014 Magnesium Ord90 Mag 1.1 Result Verified By Repeat Analysis mg/dL 09/22/2014 Pt Ryu6544 PT 32.0 seconds 09/22/2014 Pt Ojv9470 INR 3.2 09/22/2014 Pt Rhn5640 Low Intensity - 1.5-2.0 09/22/2014 Pt Lnn0616 Mod intensity - 2.0-3.0 09/22/2014 Pt Ecx9338 Hi intensity - 3.0-4.0 09/22/2014 Comp Metabolic Kyp494 NA 137 mEq/L 09/22/2014 Comp Metabolic Mqv074 K 4.2 mEq/L 09/22/2014 Comp Metabolic Gwm969 CL 102 mEq/L 09/22/2014 Comp Metabolic Tll823 CO2 25.0 mEq/L 09/22/2014 Comp Metabolic Elc124 AN ION GAP 14 09/22/2014 Comp Metabolic Owa268 GL UCOSE 94 mg/dL 09/22/2014 Comp Metabolic Lhb598 Cr eat 0.8 mg/dL 09/22/2014 Comp Metabolic Yzl164 eG FR 102 ml/min/1.73m2 09/06 Comp Metabolic Wpl848 BUN 15 mg/dL 09/22/2014 Comp Metabolic Kdg376 B/ C Ratio 18.8 Ratio 09/22/2014 Comp Metabolic Pnw117 CA LCIUM 9.4 mg/dL 09/22/2014 Comp Metabolic Xxd538 AL K PHOS 65 U/L 09/22/2014 Comp Metabolic Dsw725 T(SGOT) 15 U/L 09/22/2014 Comp Metabolic Dwx912 AL T(SGPT) 8 U/L 09/22/2014 Comp Metabolic Jcy576 BI LI T 0.4 mg/dL 09/22/2014 Comp Metabolic Pxt530 AL BUMIN 4.0 g/dL 09/22/2014 Comp Metabolic Jag037 TP RO 6.8 g/dL 09/22/2014 Comp Metabolic Ufv263 GL OB 2.8 g/dL 09/22/2014 Comp Metabolic Kwh026 A/ G Ratio 1.4 Ratio 09/22/2014 Comp Metabolic Xts238 Os mo 274 mOsmo 09/22/2014 C-Reactive Protein [...] Result Effective Dates Constitutional No recent illness 06/10/2018 Constitutional No [...] affect 06/10/2018 None Full Exam - General 1995 Constitutional general appearance Overall: well developed 03/11/2018 None Full Exam - General 1995 Constitutional [...] normal 07/20/2017 None Full Exam - General 1995 Ears/Nose/Throat lips/teeth/gingiva Overall: benign lips 07/20/2017 None [...] lips 11/25/2016 None Full Exam - General 1995 Ears/Nose/Throat oral cavity/pharynx/larynx Overall: oral mucosa clear 11/25/2016 None Full Exam - General 1995 Ears/Nose/Throat oral cavity/pharynx/larynx Overall: oropharyngeal mucosa clear 11/25/2016 None Full Exam - General 1995 Respiratory auscultation Overall: breath sounds clear bilaterally [...] affect 11/25/2016 None Full Exam - General 1994 Constitutional general appearance Overall: well developed 10/15/2016 None Full Exam - General 1994 Constitutional general appearance Overall: in no acute distress 10/15/2016 None Full Exam - General 1994 Constitutional general appearance Overall: well nourished 10/15/2016 None Full Exam - General 1994 Constitutional general appearance Assistive Device: wheelchair 10/15/2016 [...] retractions 10/15/2016 None Full Exam - General 1995 Respiratory respiratory effort/rhythm Overall: normal rate 10/15/2016 [...] greater than left Procedures Procedure Codes Date THER/PROPH/DIAG INJ SC/IM CPT-4: 76560 08/28/2017 ROCEPHIN, PER 250 MG CPT-4: J0696 08/28/2017 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 3-[address]: 555467425 CPT-4: G0436 01/27/2017 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 3-[address]: 641616268 CPT-4: G0436 11/25/2016 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 3-[address]: 520340278 CPT-4: G0436 10/15/2016 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 3-[address]: 012164841 CPT-4: G0436 09/17/2016 THER/PROPH/DIAG INJ SC/IM CPT-4: 41181 01/07/2016 TRIAMCINOLONE ACET I [place] NOS CPT-4: J3301 01/07/2016 TRIAMCINOLONE ACET I [place] NOS CPT-4: J3301 09/21/2014 THER/PROPH/DIAG INJ SC/IM CPT-4: 92036 09/21/2014 Vital Signs Date Vital 06/10/2018 Blood Pressure 1: 122/60 Code: 8480-6 BMI: 31.4 Code: 39003-0 Heart Rate 1: 75 bpm Height: 5'3" SpO2: 98% Weight: 177 lbs 03/11/2018 Blood Pressure 1: 134/82 Code: 8480-6 BMI: 32.8 Code: 57334-3 Heart Rate 1: 65 bpm Height: 5'3" SpO2: 96% Weight: 185 lbs 08/28/2017 Blood Pressure 1: 138/72 Code: 8480-6 Heart Rate 1: 80 bpm Height: SpO2: 98% Weight: 07/20/2017 Blood Pressure 1: 134/76 Code: 8480-6 BMI: 29.6 Code: 53079-2 Heart Rate 1: 82 bpm Height: 5'3" [...] 1: 128/78 Code: 8480-6 BMI: 33.3 Code: 31598-5 Heart Rate 1: 72 bpm Height: 5'3" SpO2: 97% Weight: 188 lbs 01/10/2016 Blood Pressure 1: 132/76 Code: 8480-6 BMI: 33.1 Code: 88339-1 Heart Rate 1: 72 bpm Height: 5'3" SpO2: 97% Weight: 187 lbs 12/25/2015 Blood Pressure 1: 154/82 Code: 8480-6 BMI: 33.1 Code: 53606-5 Heart Rate 1: 72 bpm Height: 5'3" SpO2: 97% Weight: 187 lbs 10/11/2015 Blood Pressure 1: 110/62 Code: 8480-6 BMI: 34.7 Code: 98192-2 Heart Rate 1: 70 bpm Height: 5'3" SpO2: 93% Weight: 196 lbs 08/24/2015 Blood Pressure 1: 132/62 Code: 8480-6 BMI: 35.3 Code: 07213-7 Heart Rate 1: 62 bpm Height: 5'3" SpO2: 93% Weight: 199 lbs 08/20/2015 Blood Pressure 1: 140/68 Code: 8480-6 BMI: 35.3 Code: 93931-0 Heart Rate 1: 74 bpm Height: 5'3" SpO2: 96% Weight: 199 lbs 12/28/2014 Blood Pressure 1: 130/72 Code: 8480-6 BMI: 33.1 Code: 62271-4 Heart Rate 1: 60 bpm Height: 5'3" SpO2: 97% Weight: 187 lbs 10/31/2014 Blood Pressure 1: 118/72 Code: 8480-6 BMI: 31.2 Code: 97985-5 Heart Rate 1: 58 bpm Height: 5'3" SpO2: 98% Weight: 176 lbs 10/02/2014 Blood Pressure 1: 138/74 Code: 8480-6 BMI: 30.6 Code: 13094-6 Heart Rate 1: 72 bpm Height: 5'3" Weight: 173 lbs 09/21/2014 Blood Pressure 1: 138/72 Code: 8480-6 BMI: 30.5 Code: 11736-0 Heart Rate 1: 60 bpm Height: 5'3" SpO2: 96% Weight: 172 lbs Functional Status No Functional Status data History of Present Illness Symptom Name Status Resu lt Effective Date Notes Onset and Resolution o ngoing 06/10/2018 None [...] daily 12/25/2015 None Hospital Follow Up _ [facility] er: diverticulitis 10/11/2015 None Hospital Follow Up [...] extremity with pain[ICD10: I83.811] Rox Alvarez MD, [facility] CPT-4: 38077 06/10/2018 11198 EST. 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 PATIENT, LEVEL III Diagnosis: Cellulitis of left axilla[ICD10: L03.112] Diagnosis: Cellulitis of right axilla[ICD10: L03.111] [facility] CPT-4: 04049 08/28/2017 38010 EST. 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 PATIENT, LEVEL IV Diagnosis: Generalized anxiety disorder[ICD10: F41.1] Diagnosis: Major depressive disorder, single episode, moderate[ICD10: F32.1] Diagnosis: Diarrhea, unspecified[ICD10: R19.7] Rox Alvarez MD, [facility] CPT-4: 98171 04/21/2017 30277 EST. PATIENT, LEVEL IV Diagnosis: Generalized anxiety disorder[ICD10: F41.1] Diagnosis: Major depressive disorder, single episode, moderate[ICD10: F32.1] Diagnosis: Nausea[ICD10: R11.0] Diagnosis: Diarrhea, unspecified[ICD10: R19.7] Rox Alvarez MD, [facility] CPT-4: 96792 04/07/2017 ([id number]) 86034 EST. P ATIENT, LEVEL IV Diagnosis: Essential (primary) hypertension[ICD10: I10] Diagnosis: Nausea[ICD10: R11.0] Diagnosis: Other fecal abnormalities[ICD10: R19.5] Diagnosis: Tobacco use[ICD10: Z72.0] Selena Alvarez MD, [facility] CPT-4: 58007 01/27/2017 ([id number]) 61092 EST. P ATIENT, LEVEL III Diagnosis: Essential (primary) hypertension[ICD10: I10] Diagnosis: Chronic obstructive pulmonary disease, unspecified[ICD10: J44.9] Diagnosis: Rash and other nonspecific skin eruption[ICD10: R21] Selena Alvarez MD, C CPT-4: 46479 11/25/2016 ([id number]) 32735 EST. P ATIENT, LEVEL III Diagnosis: Other sites of candidiasis[ICD10: B37.89] Selena Alvarez MD[facility] CPT-4: 47447 10/15/2016 ([id number]) 23951 EST. P ATIENT, LEVEL IV Diagnosis: Essential (primary) hypertension[ICD10: I10] Diagnosis: Urinary tract infection, site not specified[ICD10: N39.0] Diagnosis: Localized edema[ICD10: R60.0] Selena Alvarez MD [facility] CPT-4: 98449 09/17/2016 47421 EST. 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 PATIENT, LEVEL III Diagnosis: Other specified bacterial intestinal infections[ICD10: A04.8] Rox Alvarez MD [facility] CPT-4: 37532 04/16/2016 51686 EST. PATIENT, LEVEL II Diagnosis: Pain in right foot[ICD10: M79.671] Rox Alvarez MD [facility] CPT-4: 12961 01/21/2016 64551 EST. PATIENT, LEVEL III Diagnosis: Encounter for therapeutic drug level monitoring[ICD10: Z51.81] Diagnosis: Rash and other nonspecific skin eruption[ICD10: R21] Rox Alvarez MD [facility] CPT-4: 20882 01/10/2016 70910 EST. PATIENT, LEVEL III Diagnosis: Rash and other nonspecific skin eruption[ICD10: R21] Rox Alvarez MD [facility] CPT-4: 86990 01/07/2016 ([id number]) Miscellaneou s no charge Diagnosis: Cutaneous abscess of left axilla[ICD10: L02.412] Rox Alvarez MD [facility] CPT-4: 37860 01/02/2016 (07193) Miscellaneou s no charge Diagnosis: Cutaneous abscess of left axilla[ICD10: L02.412] Rox Alvarez MD [facility] CPT-4: 76186 01/01/2016 ([id number]) Miscellaneou s no charge Diagnosis: Cutaneous abscess of left axilla[ICD10: L02.412] Rox Alvarez MD, [facility] CPT-4: 57473 12/31/2015 ([id number]) Patient adm itted to the hospital from clinic (NO CHARGE) Diagnosis: Cutaneous abscess of left axilla[ICD10: L02.412] Rox Alvarez MD, [facility] CPT-4: 01017O 12/25/2015 06243 EST. 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 PATIENT, LEVEL IV Diagnosis: Cellulitis of left toe[ICD10: L03.032] Rox Alvarez MD, [facility] CPT-4: 38091 08/20/2015 90529 EST. PATIENT, LEVEL III Diagnosis: Essential (primary) hypertension[ICD10: I10] Diagnosis: Peripheral vascular disease, unspecified[ICD10: I73.9] Diagnosis: Dermatitis, unspecified[ICD10: L30.9] [facility] CPT- 4: 45592 12/28/2014 ([id number]) 46680 EST. [facility] Diagnosis: ESSENTIAL HYPERTENSION[ICD9: 401.9] Diagnosis: PAD (peripheral artery disease)[ICD9: 443.9] Diagnosis: Anticoagulated on Coumadin[ICD9: V58.83] Emy Alvarez MD, [facility] CPT-4: 45190 10/31/2014 ([id number]) 43918 EST. P ATIENT, LEVEL III Diagnosis: PAD (peripheral artery disease)[ICD9: 443.9] Diagnosis: Anticoagulated on Coumadin[ICD9: V58.83] Diagnosis: SCLERITIS[ICD9: 379.00] Diagnosis: ESSENTIAL HYPERTENSION[ICD9: 401.9] [facility] CPT- 4: 22431 10/02/2014 ([id number]) OFFICE [facility] - LEVEL 4 Diagnosis: GOUT[ICD9: 274.9] Diagnosis: COPD (chronic obstructive pulmonary disease)[ICD9: 496] Diagnosis: PAD (peripheral artery disease)[ICD9: 443.9] Diagnosis: ESSENTIAL HYPERTENSION[ICD9: 401.9] [facility] CPT- 4: 32744 09/21/2014 Plan of Care Planned Activity Notes C odes Status Date Appointment: Rox Luciano WPtel: [address] [place], [place] [id number] (15 min) Moderate 09/08/2018 Visit Plan: [...] vein specialist. 06/10/2018 Appointment: Rox Luciano WPtel: [address] [place], [place] [phone] (30 min) Complex 06/10/2018 Patient Education: [...] continue PT 03/11/2018 Appointment: Rox Luciano WPtel: [facility] (15 min) Moderate 03/11/2018 Patient Education: Patient Medication Summary Completed 03/11/2018 [phone] ([facility] Complex 11/17/2017 Visit Plan: Cellulitis [...] discharge. 08/28/2017 App[facility]ment[phone] [facility] ([facility] min) Complex 08/28/2017 Patient Education: Patient [...] continue PT 07/20/2017 [phone] [facility] ([facility]) Complex 07/20/2017 Patient Education: Patient Medication Summary Completed 07/20/2017 Referral: Stephanie Silva WPtel: Referral Initiated 05/04/2017 Care Plan: Referral Order SNOMED-CT : [id number] Pending 04/30/2017 Visit Plan: Chronic Depression and [...] pain. 04/21/2017 App[facility]ment: [facility] [facility] ([facility]) Complex 04/21/2017 Patient Education: Patient [...] stomach pain. 04/07/2017 Appointment: Rox Luciano WPtel: [phone] [facility] (30 min) Complex 04/07/2017 Patient Education: Patient Medication Summary Completed 04/07/2017 Appointment: Selena Alvarez WPtel: [phone] [facility] (15 min) Moderate 02/26/2017 Visit [...] not improving. 01/27/2017 Appointment: Selena Alvarez WPtel: [phone] [facility] (15 min) Moderate 01/27/2017 Patient [...] with nystatin 11/25/2016 Appointment: Selena Alvarez WPtel: [facility] (15 min) Moderate 11/25/2016 Appointment: Selena Alvarez WPtel: [facility] (15 min) Moderate 11/25/2016 Patient [...] of over-medication. 10/15/2016 Appointment: Selena Alvarez WPtel: [facility] (15 min) Moderate 10/15/2016 Patient Education: Patient Medication Summary Completed 10/15/2016 Patient Education: Smoking and Tobacco Addiction Completed 10/15/2016 Appointment: [facility] Luciano [facility]Ptel[facility] ([facility] Complex 09/18/2016 Visit Plan: Hypertension [...] evaluation. 08/14/2016 App[facility]ment: [phone] [facility] ([facility] min) Complex 08/14/2016 Patient Education: Patient [...] pain. 04/16/2016 App[facility]ment: [phone] [facility] (15 min) Moderate 04/16/2016 Patient Education: Patient Medication Summary Completed 04/16/2016 Patient Education: Smoking and Tobacco Addiction Completed 04/16/2016 Referral: Dr Arboleda Referral Completed 02/14/2016 Care Plan: Referral Order SNOMED-CT : [id number] Pending 01/29/2016 Visit Plan: Right foot pain - dianagoi ng - pt states that when he [...] warmth, discharge. 01/10/2016 Appointment: Rox Luciano WPtel: [address] [place], [place] [address] (30 min) [facility] 01/10/2016 Patient Education: Patient Medication Summary [...] - Pt states that he went to [facility] for the abscess and they started him on an antibiotic and told him to go home and drain it himself. Axilla to lateral chest wall is erythematous with large area of induration. 3 open sites with thick purulent drainage noted - Dr. Alvarez in to see pt - will admit for IV antibiotics and further I&D. 12/25/2015 Appointment: Emy Westbrook WPtel: [facility] [place] (15 min) Moderate 12/25/2015 Patient Education: [...] care management. 10/11/2015 Appointment: Rox Luciano WPtel: [facility] (30 min) Complex 10/11/2015 Patient Education: Patient Medication Summary Completed 10/11/2015 Patient Education: Smoking and Tobacco Addiction Completed 10/11/2015 Patient Education: Obesity Completed 10/11/2015 Referral: Gavino Navarro they are g oing to call if they get him in before if not we will call Dr shook Initiated 09/27/2015 Appointment: Emy Westbrook WPtel: [address] [place], [place] [phone] (15 min) Moderate 08/24/2015 Patient Education: Patient Medication Summary Completed 08/24/2015 Patient Education: Smoking and Tobacco Addiction Completed 08/24/2015 Patient Education: Patient Medication Summary Completed 08/23/2015 Appointment: Emy Westbrook WPtel: [address] [place], [place] [phone] (30 min) Complex 08/22/2015 Referral: [facility] WPtel: [address] [place], [place] [phone] Referral Initiated 08/22/2015 Visit Plan: Pt on [...] Hypertension Completed 12/28/2014 Appointment: Selena Alvarez WPtel[facility] Follow up 12/20/2014 Visit Plan: Hypertension - [...] 09/21/2014 Care Plan: Referral Order SNOMED-CT : [id number] Ordered 09/21/2014 Appointment: Selena Alvarez WPtel: [phone] [facility] [place] (S) New Patient 09/20/2014 Referral: Martinez Wren WPtel: [address] [id number] [place] Referral Initiated Referral: Gavino Navarro Referral Initiated Referral: [facility] WPtel: [address] [facility] [place] Referral Initiated Referral: Dr Arboleda Referral [...] worsening redness, warmth, discharge. probiotics - culture joleen or linares colon heatlh. . Gastroenteritis - discussed need to stay [...] . Pt on chronic anti coagulation. Dr. 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 [...] treatment for varicose veins with vein specialist. will refer to Dr. Edgar jordan will [...]
--- OUTSIDE RECORDS SUMMARY | 2019-08-20 18:13 | XMS REPORT | CCD ---
Author Author Bony Alvarez Organization Selena Alvarez MD, [facility] Address [address] [place] [address] Phone Care Team Providers [facility] Security Officer Name Role Phone PP Unavailable CCM Unavailable Summary Purpose Interface Exchange Insurance Providers Payer name Policy type / Coverage type Covered democrat ID Effective Begin Date Effective End Date [facility] Commercial Insurance [id number] 2017 Unknown Family history Father Diagnosis Age At Onset Hyperlipidemia Unknown Coronary Artery Disease Unknown Stroke Unknown Cancer Unknown Congestive heart failure Unknown Mother Diagnosis Age At Onset Hypertension Unknown kidney disease Unknown Cancer Unknown Stroke Unknown Hyperlipidemia Unknown Coronary Artery Disease Unknown Congestive heart failure Unknown Social History Social History Element Codes Description Effective Dates Tobacco history SNOMED CT: 367141795155125 Current some days smoker 09/21/2014 Allergies, Adverse [...] ICD-9: 300.00 ICD-10: F41.1 Active 04/21/2017 Unknown care home (current) use of anticoagulants ICD-9: V58.61 ICD-10: [...] V67.59 ICD-10: Z09 Active 10/10/2015 Unknown Other fdc (cur rent) drug therapy ICD-9: [...] disorder ICD-9: 300.00 ICD-10: F41.1 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 ICD-10: [...] Fill Instructions Pepcid 20 mg tablet RxNorm: 709110 TAKE ONE TABLET BY MOUTH TWICE A DAY 10/07/2018 01/04/2019 Ac tive hydrocodone 7.5 mg-a cetaminophen 325 mg tablet RxNorm: 355987 1 Tablet(s) PO QID as needed 09/16/2018 10/15/2018 Active furosemide 40 mg tablet RxNorm: 723435 TAKE ONE TABLET BY MOUTH DAILY NEEDED FOR SWELLING 09/10/2018 02/06/2019 Active hydrocodone 7.5 mg-a cetaminophen 325 mg tablet RxNorm: 374602 1 Tablet(s) PO QID as needed 08/18/2018 09/15/2018 Inactive Lexapro 10 mg tablet RxNorm: 139191 TAKE ONE TABLET BY MOUTH AT BEDTIME 08/03/2018 06/28/2019 Ac tive hydrocodone 7.5 mg-a cetaminophen 325 mg tablet RxNorm: 211722 1 Tablet(s) PO QID as needed 07/15/2018 08/13/2018 Inactive Keflex 500 mg capsule RxNorm: 951906 1 Capsule(s) PO TID 06/11/2018 06/17/2018 Inactive Pepcid 20 mg tablet RxNorm: 545322 TAKE ONE TABLET BY MOUTH TWICE A DAY 05/25/2018 09/21/2018 In active hydrocodone 7.5 mg-a cetaminophen 325 mg tablet RxNorm: 886309 1 Tablet(s) PO QID as needed 05/19/2018 06/17/2018 Inactive hydrocodone 7.5 mg-a cetaminophen 325 mg tablet RxNorm: 058897 1 Tablet(s) PO QID as needed 04/19/2018 05/18/2018 Inactive allopurinol 100 mg t ablet RxNorm: 268698 TAKE ONE TABLET BY MO UTH DAILY 04/06/2018 03/01/2019 Ac tive hydrocodone 7.5 mg-a cetaminophen 325 mg tablet RxNorm: 657493 1 Tablet(s) PO QID as needed 03/11/2018 04/09/2018 Inactive potassium chloride E R 20 mEq tablet,extended release RxNorm: 888035 Tablet(s) TAKE ONE TABLET BY MOUTH DAILY WHEN TAKING FUROSEMIDE NEEDED 03/05/2018 08/31/2018 Inactive gabapentin 300 mg ca psule RxNorm: 539803 TAKE ONE CAPSULE BY M OUT THREE TIMES A DAY 03/04/2018 02/26/2019 Ac tive hydrocodone 7.5 mg-a cetaminophen 325 mg tablet RxNorm: 527326 1 Tablet(s) PO QID as needed 02/18/2018 03/10/2018 Inactive hydrocodone 7.5 mg-a cetaminophen 325 mg tablet RxNorm: 855790 1 Tablet(s) PO QID as needed 01/19/2018 02/17/2018 Inactive hydrocodone 7.5 mg-a cetaminophen 325 mg tablet RxNorm: 757264 1 Tablet(s) PO QID as needed 12/16/2017 01/14/2018 Inactive Pepcid 20 mg tablet RxNorm: 190615 Tablet(s) TAKE ONE TABLET BY MOUTH TWICE A DAY 12/08/2017 05/06/2018 Inactive hydrocodone 7.5 mg-a cetaminophen 325 mg tablet RxNorm: 598626 1 Tablet(s) PO QID as needed 11/18/2017 12/15/2017 Inactive gabapentin 300 mg ca psule RxNorm: 373506 Capsule(s) TAKE ONE C APSULE BY MOUTH THREE TIMES A DAY 11/11/2017 03/03/2018 Inactive gabapentin 300 mg ca psule RxNorm: 301903 TAKE ONE CAPSULE BY M OUTH THREE TIMES A DAY 11/10/2017 11/10/2017 Inactive hydrocodone 7.5 mg-a cetaminophen 325 mg tablet RxNorm: 309781 1 Tablet(s) PO QID as needed 10/19/2017 11/17/2017 Inactive hydrocodone 7.5 mg-a cetaminophen 325 mg tablet RxNorm: 359839 1 Tablet(s) PO QID as needed 09/16/2017 10/15/2017 Inactive doxycycline hyclate 100 mg capsule RxNorm: 5058971 1 Capsule(s) PO BID 08/28/2017 09/06/2017 In active hydrocodone 7.5 mg-a cetaminophen 325 mg tablet RxNorm: 289752 1 Tablet(s) PO QID as needed 08/21/2017 09/15/2017 Inactive Lexapro 10 mg tablet RxNorm: 964510 TAKE ONE TABLET BY MOUTH AT BEDTIME 08/02/2017 07/27/2018 In active Zyrtec 10 mg tablet RxNorm: 2332223 1 Tablet(s) PO daily 07/20/2017 11/16/2017 Inactive hydrocodone 7.5 mg-a cetaminophen 325 mg tablet RxNorm: 834412 1 Tablet(s) PO QID as needed 07/20/2017 09/15/2017 Inactive furosemide 40 mg tablet RxNorm: 788770 Tablet(s) TAKE ONE TABLET BY MOUTH DAILY NEEDED FOR SWELLING 07/08/2017 01/03/2018 Inactive Pepcid 20 mg tablet RxNorm: 098850 TAKE ONE TABLET BY MOUTH TWICE A DAY 06/29/2017 11/25/2017 In active gabapentin 300 mg ca psule RxNorm: 196655 TAKE ONE CAPSULE BY M OUTH THREE TIMES A DAY 06/29/2017 10/26/2017 Inactive hydrocodone 7.5 mg-a cetaminophen 325 mg tablet RxNorm: 992101 1 Tablet(s) PO QID as needed 06/18/2017 07/17/2017 Inactive hydrocodone 7.5 mg-a cetaminophen 325 mg tablet RxNorm: 813807 1 Tablet(s) PO QID as needed 05/18/2017 06/16/2017 Inactive hydrocodone 7.5 mg-a cetaminophen 325 mg tablet RxNorm: 959209 1 Tablet(s) PO QID as needed 04/21/2017 05/17/2017 Inactive hyoscyamine 0.125 mg sublingual tablet RxNorm: 7957884 1 Tablet(s) SL TID a s needed 04/21/2017 04/25/2017 In active Lexapro 10 mg tablet RxNorm: 629596 1 Tablet(s) PO QHS 04/21/2017 07/19/2017 Inactive Flagyl 500 mg tablet RxNorm: 983238 1 Tablet(s) PO TID 04/07/2017 04/16/2017 Inactive Lexapro 10 mg tablet RxNorm: 847905 1 Tablet(s) PO QHS 04/07/2017 04/20/2017 Inactive hydrocodone 7.5 mg-a cetaminophen 325 mg tablet RxNorm: 170053 1 Tablet(s) PO QID as needed 03/24/2017 04/20/2017 Inactive allopurinol 100 mg t ablet RxNorm: 433733 TAKE ONE TABLET BY [facility] DAILY 03/10/2017 03/04/2018 In active hydrocodone 7.5 mg-a cetaminophen 325 mg tablet RxNorm: 000615 1 Tablet(s) PO QID as needed 02/11/2017 03/12/2017 Inactive gabapentin 300 mg ca psule RxNorm: 467915 TAKE ONE CAPSULE BY [facility] THREE TIMES A DAY 02/02/2017 06/28/2017 Inactive Zofran ODT 4 mg disi ntegrating tablet RxNorm: 482424 1 Tablet(s) PO QID as needed nausea and vomitting 01/27/2017 No Stop Date Active hydrocodone 7.5 mg-a cetaminophen 325 mg tablet RxNorm: 633081 1 Tablet(s) PO QID as needed 01/13/2017 02/10/2017 Inactive potassium chloride E R 20 mEq tablet,extended release RxNorm: 067749 TAKE ONE TABLET BY MOUTH DAILY WHEN TAKING FUROSEMIDE NEEDED 01/12/2017 07/10/2017 Inactive furosemide 40 mg tablet RxNorm: 186787 TAKE ONE TABLET BY MOUTH DAILY NEEDED FOR SWELLING 01/12/2017 07/09/2017 Inactive promethazine 25 mg t ablet RxNorm: 904997 TAKE ONE TABLET BY [facility] THREE TIMES A DAY NEEDED FOR NAUSEA AND VOMITING 01/12/2017 01/31/2017 Inactive promethazine 25 mg t ablet RxNorm: 645795 1 Tablet(s) PO TID as needed nausea and vomitting 01/06/2017 01/11/2017 Inactive Lomotil 2.5 mg-0.025 mg tablet RxNorm: 6606763 1-2 Tablet(s) PO BID as needed diarrhea 01/06/2017 01/05/2017 Inactive Lomotil 2.5 mg-0.025 mg tablet RxNorm: 6754771 1-2 Tablet(s) PO BID as needed diarrhea 01/06/2017 01/07/2017 Inactive Pepcid 20 mg tablet RxNorm: 839324 1 Tablet(s) PO BID 12/19/2016 06/16/2017 Inactive Pepcid 20 mg tablet RxNorm: 354721 1 Tablet(s) PO BID 12/16/2016 12/18/2016 Inactive hydrocodone 7.5 mg-a cetaminophen 325 mg tablet RxNorm: 807635 1 Tablet(s) PO QID as needed 12/16/2016 01/12/2017 Inactive hydrocodone 7.5 mg-a cetaminophen 325 mg tablet RxNorm: 923133 1 Tablet(s) PO QID as needed 11/18/2016 12/15/2016 Inactive allopurinol 100 mg t ablet RxNorm: 979781 TAKE ONE TABLET BY [facility] DAILY 10/29/2016 02/25/2017 In active hydrocodone 7.5 mg-a cetaminophen 325 mg tablet RxNorm: 674920 1 Tablet(s) PO QID as needed 10/15/2016 11/13/2016 Inactive nystatin 100,000 uni t/gram topical cream RxNorm: 079366 1 Gram(s) TOP QID 10/15/2016 11/25/2016 In active nystatin 100,000 uni t/gram topical powder RxNorm: 453507 1 Gram(s) TOP TID TO GROIN OR AFFECTED AREA 10/14/2016 No Stop Date Active hydrocodone 7.5 mg-a cetaminophen 325 mg tablet RxNorm: 622960 1 Tablet(s) PO QID as needed 09/17/2016 10/14/2016 Inactive furosemide 40 mg tablet RxNorm: 474597 1 Tablet(s) PO daily as needed swelling 09/17/2016 01/11/2017 In active potassium chloride E R 20 mEq tablet,extended release RxNorm: 265789 1 Tablet(s) PO daily as needed take when taking a lasix pill 09/17/2016 01/11/2017 Inactive Levaquin 500 mg tablet RxNorm: 061618 1 Tablet(s) PO daily 09/17/2016 09/21/2016 Inactive hydrocodone 7.5 mg-a cetaminophen 325 mg tablet RxNorm: 038196 1 Tablet(s) PO QID as needed 08/14/2016 09/12/2016 Inactive cyclobenzaprine 5 mg tablet RxNorm: 222322 1 Tablet(s) PO TID as needed 07/25/2016 07/29/2016 In active cyclobenzaprine 5 mg tablet RxNorm: 434716 1 Tablet(s) PO TID as needed 07/25/2016 07/24/2016 In active hydrocodone 7.5 mg-a cetaminophen 325 mg tablet RxNorm: 298535 1 Tablet(s) PO QID as needed 07/21/2016 08/13/2016 Inactive warfarin 1 mg tablet RxNorm: 007397 TAKE ONE TABLET BY MOUTH EVERY EVENING 06/26/2016 08/04/2016 In active hydrocodone 7.5 mg-a cetaminophen 325 mg tablet RxNorm: 928271 1 Tablet(s) PO QID as needed 06/24/2016 07/20/2016 Inactive hydrocodone 5 mg-yanira taminophen 325 mg tablet RxNorm: 722977 1 Tablet(s) PO Q6 as needed for pain 06/09/2016 06/10/2016 Inactive warfarin 1 mg tablet RxNorm: 892836 TAKE ONE TABLET BY MOUTH EVERY EVENING 06/02/2016 06/21/2016 In active allopurinol 100 mg t ablet RxNorm: 555684 TAKE ONE TABLET BY MO UTH DAILY 05/21/2016 10/17/2016 In active hydrocodone 7.5 mg-a cetaminophen 325 mg tablet RxNorm: 338909 1 Tablet(s) PO QID as needed 05/09/2016 06/07/2016 Inactive gabapentin 300 mg ca psule RxNorm: 840019 Capsule(s) TAKE ONE C APSULE BY MOUTH THREE TIMES A DAY 04/25/2016 11/09/2017 Inactive promethazine 25 mg t ablet RxNorm: 067616 TAKE ONE TABLET BY MO UTH THREE TIMES A DAY NEEDED 2016 05/01/2016 Inactive warfarin 1 mg tablet RxNorm: 309453 TAKE ONE TABLET BY MOUTH EVERY EVENING 2016 05/31/2016 In active promethazine 25 mg t ablet RxNorm: 348026 1 Tablet(s) PO TID as needed 04/16/2016 04/21/2016 In active warfarin 1 mg tablet RxNorm: 770276 TAKE ONE TABLET BY MOUTH EVERY EVENING 02/13/2016 04/12/2016 In active magnesium oxide 400 mg tablet RxNorm: 208085 TAKE ONE TABLET BY MO UTH TWICE A DAY 02/07/2016 01/01/2017 In active hydrocodone 5 mg-yanira taminophen 325 mg tablet RxNorm: 168226 1 Tablet(s) PO Q6 as needed for pain 01/21/2016 02/19/2016 Inactive warfarin 1 mg tablet RxNorm: 203933 TAKE ONE TABLET BY MOUTH EVERY EVENING 01/17/2016 02/05/2016 In active gabapentin 300 mg ca psule RxNorm: 888219 Capsule(s) TAKE ONE C APSULE BY MOUTH THREE TIMES A DAY 01/11/2016 04/24/2016 Inactive prednisone 10 mg tablet RxNorm: 784830 Tablet(s) PO UD 01/10/2016 03/08/2018 Inactive 60mg x2 days, then 50mg x2 days, then 40mg x2 days, 30mg x2 days, 20mg x2 days, 10mg x2days, 5mg every other day x 2 doses Kenalog 40 mg/mL cassius pension for injection RxNorm: 2054535 Milliliter(s) Inj 01/07/2016 01/07/2016 In active warfarin 1 mg tablet RxNorm: 448891 TAKE ONE TABLET BY MOUTH EVERY EVENING 01/01/2016 01/16/2016 In active hydrocodone 5 mg-yanira taminophen 325 mg tablet RxNorm: 122834 1 Tablet(s) PO Q6 as needed for pain 01/01/2016 01/15/2016 Inactive gabapentin 300 mg ca psule RxNorm: 820517 TAKE ONE CAPSULE BY M OUTH THREE TIMES A DAY 12/12/2015 01/10/2016 Inactive warfarin 5 mg tablet RxNorm: 449267 1 Tablet(s) PO daily 12/05/2015 No Stop Date Active warfarin 1 mg tablet RxNorm: 156309 TAKE ONE TABLET BY MOUTH EVERY EVENING 11/13/2015 12/22/2015 In active hydrocodone 5 mg-yanira taminophen 325 mg tablet RxNorm: 800181 1 Tablet(s) PO Q6 as needed for pain 10/26/2015 11/09/2015 Inactive allopurinol 100 mg t ablet RxNorm: 134908 1 Tablet(s) PO daily TAKE ONE TABLET BY MOUTH DAILY 10/18/2015 04/14/2016 Inactive hydrocodone 5 mg-yanira taminophen 325 mg tablet RxNorm: 168496 1 Tablet(s) PO Q6 as needed for pain 09/26/2015 10/10/2015 Inactive gabapentin 300 mg ca psule RxNorm: 419726 TAKE ONE CAPSULE BY M OUTH THREE TIMES A DAY 09/14/2015 12/11/2015 Inactive warfarin 1 mg tablet RxNorm: 657395 1 Tablet(s) PO QPM 09/14/2015 11/12/2015 Inactive hydrocodone 5 mg-yanira taminophen 325 mg tablet RxNorm: 777938 1 Tablet(s) PO Q6 as needed for pain 09/12/2015 09/25/2015 Inactive hydrocodone 5 mg-yanira taminophen 325 mg tablet RxNorm: 884467 1 Tablet(s) PO Q6 as needed for pain 08/22/2015 09/05/2015 Inactive Bactrim DS 800 mg-16 0 mg tablet RxNorm: 566882 1 Tablet(s) PO BID 08/20/2015 09/02/2015 Inactive magnesium oxide 400 mg tablet RxNorm: 953768 TAKE ONE TABLET BY MO UTH TWICE A DAY 01/20/2015 01/14/2016 In active gabapentin 300 mg ca psule RxNorm: 277979 TAKE ONE CAPSULE BY M OUTH THREE TIMES A DAY 01/20/2015 05/19/2015 Inactive magnesium oxide 400 mg tablet RxNorm: 551164 1 Tablet(s) PO BID 01/17/2015 05/16/2015 Inactive gabapentin 300 mg ca psule RxNorm: 765277 1 Capsule(s) PO TID 01/17/2015 05/16/2015 Inactive allopurinol 100 mg t ablet RxNorm: 327803 TAKE ONE TABLET BY [facility] DAILY 10/18/2014 10/12/2015 In active Kenalog 40 mg/mL cassius pension for injection RxNorm: 6942229 1 Milliliter(s) Inj 09/21/2014 09/21/2014 In active allopurinol 100 mg t ablet RxNorm: 048300 1 Tablet(s) PO daily 09/21/2014 10/17/2014 Inactive gabapentin 300 mg ca psule RxNorm: 374301 1 Capsule(s) PO TID 09/12/2014 01/09/2015 Inactive gabapentin 300 mg ca psule RxNorm: 009292 1 Capsule(s) PO TID 09/12/2014 09/11/2014 Inactive magnesium oxide 400 mg tablet RxNorm: 050237 1 Tablet(s) PO BID 09/12/2014 01/09/2015 Inactive magnesium oxide 400 mg tablet RxNorm: 181212 1 Tablet(s) PO BID 09/12/2014 09/11/2014 Inactive lisinopril 5 mg tablet RxNorm: 929714 1 Tablet(s) PO daily No Start Date Active atorvastatin oral RxNorm: 67838 oral No Start Date Active Coreg 6.25 mg tablet RxNorm: 174121 1 Tablet(s) PO BID No Start Date Active Combivent Respimat 2 0 mcg-100 mcg/actuation solution for inhalation RxNorm: 9733671 1 Puff(s) INH as needed No Start Date Active Ventolin Refill 90 m cg/actuation aerosol inhaler RxNorm: 033335 2 INH as needed No Start Date Active Centrum Silver Women oral RxNorm: [address] art Date Active aspirin 81 mg capsul e,delayed release RxNorm: 161415 1 Capsule(s) PO daily No Start Date Active nystatin 100,000 uni t/gram topical powder RxNorm: 870707 1 Gram(s) TOP TID No Start Date 10/13/2016 Inactive warfarin 1 mg tablet RxNorm: 889796 oral No Start Date 09/13/2015 Inactive Pepcid 20 mg tablet RxNorm: 241984 1 Tablet(s) PO BID No Start Date 12/15/2016 Inactive Protonix 40 mg table t,delayed release RxNorm: 524190 1 Tablet(s) PO daily No Start Date 09/16/2016 Inactive warfarin 5 mg tablet RxNorm: 834856 1 Tablet(s) PO daily 1.5 tabs on Tue No Start Date 12/04/2015 Inactive minocycline 50 mg ca psule RxNorm: 592607 1 Capsule(s) PO BID o rdered by Dr. Saravia No Start Date 03/08/2018 Inactive furosemide 40 mg tablet RxNorm: 970429 1 Tablet(s) PO daily No Start Date 09/16/2016 Inactive Medication Administered Medication Codes Instruc tions Start Date Status Kenalog 40 mg/mL suspension for injection RxNorm: 6006566 Milliliter 01/07/2016 No longer Active Kenalog 40 mg/mL suspension for injection RxNorm: 0427300 1Milliliter 09/21/2014 N o longer Active Immunizations No Immunization data Assessments Condition Codes Effectiv e Dates Localized edema ICD-10: R60.0 ICD-9: 782.3 06/10/2018 Varicose veins of right lower extremity with pain ICD-10: I83.811 ICD-9: 454.8 06/10/2018 Chronic pain syndrome ICD-10: G89.4 ICD-9: 338.4 03/11/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 ICD-9: [...] neoplasm ICD-10: Z09 ICD-9: V67.59 10/11/2015 Other fdc (current) drug therapy ICD-10: Z79.899 ICD-9: V58.69 [...] Item Item Code Result Date Comp Metabolic Bwf878 NA 136 mEq/L 03/11/2018 Comp Metabolic Iet497 K 4.3 mEq/L 03/11/2018 Comp Metabolic Jzu843 CL 101 mEq/L 03/11/2018 Comp Metabolic Ipq791 CO2 27.0 mEq/L 03/11/2018 Comp Metabolic Gch817 AN ION GAP 12 03/11/2018 Comp Metabolic Ygn190 GL UCOSE 87 mg/dL 03/11/2018 Comp Metabolic Xfv703 Cr eat 1.0 mg/dL 03/11/2018 Comp Metabolic Tvl688 eG FR 79 ml/min/1.73m2 03/11 Comp Metabolic Qzv380 BUN 12 mg/dL 03/11/2018 Comp Metabolic Xwv150 B/ C Ratio 12.1 Ratio 03/11/2018 Comp Metabolic Pdf309 CA LCIUM 8.9 mg/dL 03/11/2018 Comp Metabolic Ika979 AL K PHOS 106 U/L 03/11/2018 Comp Metabolic Opp594 T(SGOT) 16 U/L 03/11/2018 Comp Metabolic Dhp455 AL T(SGPT) 11 U/L 03/11/2018 Comp Metabolic Msr615 BI LI T 0.4 mg/dL 03/11/2018 Comp Metabolic Jbk915 AL BUMIN 3.8 g/dL 03/11/2018 Comp Metabolic Npq020 TP RO 6.5 g/dL 03/11/2018 Comp Metabolic Jei333 GL OB 2.7 g/dL 03/11/2018 Comp Metabolic Ont995 A/ G Ratio 1.4 Ratio 03/11/2018 Comp Metabolic Mkj265 Os mo 271 mOsmo 03/11/2018 Cbc With [...] 29.8 pg 03/11/2018 Cbc With Differential Ord2 [place]% 11.3 % 03/11/2018 Cbc With Differential Ord2 [...] 2.87 K/ul 03/11/2018 Cbc With Differential Ord2 [place] ABS# 1.1 K/ul 03/11/2018 Cbc With Differential Ord2 Eos ABS# 0.4 K/ul 03/11/2018 Cbc With Differential Ord2 Baso ABS# 0.0 K/ul 03/11/2018 Pt [id number] PT 31.3 seconds 03/11/2018 Pt Phf4387 INR 3.1 03/11/2018 Pt Rgc2744 Low Intensity - 1.5-2.0 03/11/2018 Pt Pnu2303 Mod intensity - 2.0-3.0 03/11/2018 Pt Smc0620 Hi intensity - 3.0-4.0 03/11/2018 Tsh Ord6 TSH (3rd IS) 2.01 uIU/mL 03/11/2018 Shiga Toxin 1 & 2 Eia Stool 197578 SHIGA TOXIN 1: NEGATIVE 04/12/2017 Shiga Toxin 1 & 2 Eia Stool [id number] SHIGA TOXIN 2: NEGATIVE 04/12/2017 Culture Stool [id number] STO OL CULTURE SEE NOTES 04/12/2017 Clostridium Diff Tox A/B Hor089 Cdiff Negative 04/09/2017 Pt Bqc4583 PT 64.8 seconds 01/10/2016 Pt Qhi4038 INR 8.6 01/10/2016 Pt Mdz4283 Low Intensity - 1.5-2.0 01/10/2016 Pt Xbt3680 Mod intensity - 2.0-3.0 01/10/2016 Pt Ous8561 Hi intensity - 3.0-4.0 01/10/2016 Pt Mbr2866 PT 32.1 seconds 11/01/2014 Pt Nde4680 INR 3.2 11/01/2014 Pt Ecn1141 Low Intensity - 1.5-2.0 11/01/2014 Pt Sql2621 Mod intensity - 2.0-3.0 11/01/2014 Pt Irf5723 Hi intensity - 3.0-4.0 11/01/2014 Pt Jrp7953 PT 30.2 seconds 10/03/2014 Pt Pgn1664 INR 3.0 10/03/2014 Pt Lyn4165 Low Intensity - 1.5-2.0 10/03/2014 Pt Kkf6809 Mod intensity - 2.0-3.0 10/03/2014 Pt Uwy9200 Hi intensity - 3.0-4.0 10/03/2014 D-Dimer D-DIMER 475 NG/ML 09/25/2014 D-Dimer COMMENT 09/25/2014 Magnesium Ord90 Mag 1.1 Result Verified By Repeat Analysis mg/dL 09/22/2014 Pt Owg6399 PT 32.0 seconds 09/22/2014 Pt Mjd6181 INR 3.2 09/22/2014 Pt Okz2450 Low Intensity - 1.5-2.0 09/22/2014 Pt Aff1011 Mod intensity - 2.0-3.0 09/22/2014 Pt Mfz1060 Hi intensity - 3.0-4.0 09/22/2014 Comp Metabolic Gjt470 NA 137 mEq/L 09/22/2014 Comp Metabolic Kur015 K 4.2 mEq/L 09/22/2014 Comp Metabolic Vir693 CL 102 mEq/L 09/22/2014 Comp Metabolic Vdl411 CO2 25.0 mEq/L 09/22/2014 Comp Metabolic Cjn937 AN ION GAP 14 09/22/2014 Comp Metabolic Hxo234 GL UCOSE 94 mg/dL 09/22/2014 Comp Metabolic Izh870 Cr eat 0.8 mg/dL 09/22/2014 Comp Metabolic Dbp718 eG FR 102 ml/min/1.73m2 09/06 Comp Metabolic Hhm606 BUN 15 mg/dL 09/22/2014 Comp Metabolic Sdv003 B/ C Ratio 18.8 Ratio 09/22/2014 Comp Metabolic Czj710 CA LCIUM 9.4 mg/dL 09/22/2014 Comp Metabolic Nxa338 AL K PHOS 65 U/L 09/22/2014 Comp Metabolic Waq224 T(SGOT) 15 U/L 09/22/2014 Comp Metabolic Rou027 AL T(SGPT) 8 U/L 09/22/2014 Comp Metabolic Ddb914 BI LI T 0.4 mg/dL 09/22/2014 Comp Metabolic Gmx044 AL BUMIN 4.0 g/dL 09/22/2014 Comp Metabolic Lcl244 TP RO 6.8 g/dL 09/22/2014 Comp Metabolic Fuo808 GL OB 2.8 g/dL 09/22/2014 Comp Metabolic Qou801 A/ G Ratio 1.4 Ratio 09/22/2014 Comp Metabolic Vxc454 Os mo 274 mOsmo 09/22/2014 C-Reactive Protein [...] No mental status change 03/11/2018 Psychiatric anxiety /0 05/2018 Psychiatric depression 0 03/11/2018 Constitutional No [...] atraumatic 06/10/2018 None Full Exam - General 1995 Neurologic cranial nerves Overall: crainial nerves 2 - 12 grossly intact 06/10/2018 None Full Exam - General 1994 Psychiatric orientation/consciousness Overall: oriented to person, place and time 06/10/2018 None Full Exam - General 1995 Psychiatric mood and affect Overall: normal mood and affect 06/10/2018 None Full Exam - General 1995 Constitutional general appearance Overall: well developed 03/11/2018 None Full Exam - General 1995 Constitutional general appearance Overall: in no acute distress 03/11/2018 None Full Exam - General 1995 Constitutional general appearance Overall: well nourished 03/11/2018 [...] bilaterally 11/25/2016 None Full Exam - General 1995 Respiratory respiratory effort/rhythm Overall: no retractions 11/25/2016 None Full Exam - General 1995 Respiratory respiratory effort/rhythm Overall: normal rate 11/25/2016 None Full Exam - General 1994 Cardiovascular extremities Edema present: pitting 11/25/2016 right lower leg to knee 2 + - and left stump 1+ Full Exam - General 1995 Cardiovascular auscultation of heart Systolic murmur: holosystolic [...] Procedure Codes Date THER/PROPH/DIAG INJ SC/IM CPT-4: 39364 08/28/2017 ROCEPHIN, PER 250 MG CPT-4: J0696 08/28/2017 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 CPT-4: G0436 01/27/2017 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[address]: 016690580 CPT-4: G0436 11/25/2016 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[address]: 760572612 CPT-4: G0436 10/15/2016 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[address]: 675558956 CPT-4: G0436 09/17/2016 THER/PROPH/DIAG INJ SC/IM CPT-4: 44106 01/07/2016 TRIAMCINOLONE ACET I [place] NOS CPT-4: J3301 01/07/2016 TRIAMCINOLONE ACET I [place] NOS CPT-4: J3301 09/21/2014 THER/PROPH/DIAG INJ SC/IM CPT-4: 69007 09/21/2014 Vital Signs Date Vital 06/10/2018 Blood Pressure 1: 122/60 Code: 8480-6 BMI: 31.4 Code: 17726-6 Heart Rate 1: 75 bpm Height: 5'3" SpO2: 98% Weight: 177 lbs 03/11/2018 Blood Pressure 1: 134/82 Code: 8480-6 BMI: 32.8 Code: 84584-7 Heart Rate 1: 65 bpm Height: 5'3" SpO2: 96% Weight: 185 lbs 08/28/2017 Blood Pressure 1: 138/72 Code: 8480-6 Heart Rate 1: 80 bpm Height: SpO2: 98% Weight: 07/20/2017 Blood Pressure 1: 13476 Code: 8480-6 BMI: 29.6 Code: 76461-6 Heart Rate 1: 82 bpm Height: 5'3" Weight: 167 lbs 04/21/2017 Blood Pressure 1: 13478 Code: 8480-6 Heart Rate 1: 77 bpm [...] 1: 128/78 Code: 8480-6 BMI: 33.3 Code: 09051-0 Heart Rate 1: 72 bpm Height: 5'3" SpO2: 97% Weight: 188 lbs 01/10/2016 Blood Pressure 1: 132/76 Code: 8480-6 BMI: 33.1 Code: 73186-4 Heart Rate 1: 72 bpm Height: 5'3" SpO2: 97% Weight: 187 lbs 12/25/2015 Blood Pressure 1: 154/82 Code: 8480-6 BMI: 33.1 Code: 18983-3 Heart Rate 1: 72 bpm Height: 5'3" SpO2: 97% Weight: 187 lbs 10/11/2015 Blood Pressure 1: 110/62 Code: 8480-6 BMI: 34.7 Code: 95098-4 Heart Rate 1: 70 bpm Height: 5'3" SpO2: 93% Weight: 196 lbs 08/24/2015 Blood Pressure 1: 132/62 Code: 8480-6 BMI: 35.3 Code: 11562-0 Heart Rate 1: 62 bpm Height: 5'3" SpO2: 93% Weight: 199 lbs 08/20/2015 Blood Pressure 1: 140/68 Code: 8480-6 BMI: 35.3 Code: 90729-8 Heart Rate 1: 74 bpm Height: 5'3" SpO2: 96% Weight: 199 lbs 12/28/2014 Blood Pressure 1: 130/72 Code: 8480-6 BMI: 33.1 Code: 66767-9 Heart Rate 1: 60 bpm Height: 5'3" SpO2: 97% Weight: 187 lbs 10/31/2014 Blood Pressure 1: 118/72 Code: 8480-6 BMI: 31.2 Code: 35270-2 Heart Rate 1: 58 bpm Height: 5'3" SpO2: 98% Weight: 176 lbs 10/02/2014 Blood Pressure 1: 138/74 Code: 8480-6 BMI: 30.6 Code: 52714-5 Heart Rate 1: 72 bpm Height: 5'3" Weight: 173 lbs 09/21/2014 Blood Pressure 1: 138/72 Code: 8480-6 BMI: 30.5 Code: 09375-8 Heart Rate 1: 60 bpm Height: 5'3" [...] 12/25/2015 None Hospital Follow Up _ [facility] er: diverticulitis 10/11/2015 None Hospital Follow Up [...] Encounters Encounter Performer Loca tion Codes Date [id number] EST. PATIENT, LEVEL III Diagnosis: Localized edema[ICD10: R60.0] Diagnosis: Varicose veins of right lower extremity with pain[ICD10: I83.811] Rox Alvarez MD, [facility] [place] [facility] CPT-4: 03974 06/10/2018 50121 EST. 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 PATIENT, LEVEL III Diagnosis: Cellulitis of left axilla[ICD10: L03.112] Diagnosis: Cellulitis of right axilla[ICD10: L03.111] Rox Alvarez MD, [facility] CPT-4: 37675 08/28/2017 12491 EST. 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 PATIENT, LEVEL IV Diagnosis: Generalized anxiety disorder[ICD10: F41.1] Diagnosis: Major depressive disorder, single episode, moderate[ICD10: F32.1] Diagnosis: Diarrhea, unspecified[ICD10: R19.7] Rox Alvarez MD, [facility] CPT-4: 75767 04/21/2017 14011 EST. PATIENT, LEVEL IV Diagnosis: Generalized anxiety disorder[ICD10: F41.1] Diagnosis: Major depressive disorder, single episode, moderate[ICD10: F32.1] Diagnosis: Nausea[ICD10: R11.0] Diagnosis: Diarrhea, unspecified[ICD10: R19.7] Rox Alvarez MD, [facility] CPT-4: 57140 04/07/2017 ([id number]) 95379 EST. P ATIENT, LEVEL IV Diagnosis: Essential (primary) hypertension[ICD10: I10] Diagnosis: Nausea[ICD10: R11.0] Diagnosis: Other fecal abnormalities[ICD10: R19.5] Diagnosis: Tobacco use[ICD10: Z72.0] Selena Alvarez MD, [facility] CPT-4: 72054 01/27/2017 ([id number]) 88361 EST. P ATIENT, LEVEL III Diagnosis: Essential (primary) hypertension[ICD10: I10] Diagnosis: Chronic obstructive pulmonary disease, unspecified[ICD10: J44.9] Diagnosis: Rash and other nonspecific skin eruption[ICD10: R21] Selena Alvarez MD, [facility] CPT-4: 40892 11/25/2016 ([id number]) 04972 EST. P ATIENT, LEVEL III Diagnosis: Other sites of candidiasis[ICD10: B37.89] Selena Alvarez MD, C CPT-4: 72670 10/15/2016 ([id number]) 54906 EST. P ATIENT, LEVEL IV Diagnosis: Essential (primary) hypertension[ICD10: I10] Diagnosis: Urinary tract infection, site not specified[ICD10: N39.0] Diagnosis: Localized edema[ICD10: R60.0] Selena Alvarez MD [facility] CPT-4: 32413 09/17/2016 47445 EST. 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 PATIENT, LEVEL III Diagnosis: Other specified bacterial intestinal infections[ICD10: A04.8] Rox Alvarez MD [facility] CPT-4: 26168 04/16/2016 38659 EST. PATIENT, LEVEL II Diagnosis: Pain in right foot[ICD10: M79.671] oRx Alvarez MD [facility] CPT-4: 95384 01/21/2016 90706 EST. PATIENT, LEVEL III Diagnosis: Encounter for therapeutic drug level monitoring[ICD10: Z51.81] Diagnosis: Rash and other nonspecific skin eruption[ICD10: R21] Rox Alvarez MD [facility] CPT-4: 68538 01/10/2016 91102 EST. PATIENT, LEVEL III Diagnosis: Rash and other nonspecific skin eruption[ICD10: R21] Rox Alvarez MD [facility] CPT-4: 08434 01/07/2016 ([id number]) Miscellaneou s no charge Diagnosis: Cutaneous abscess of left axilla[ICD10: L02.412] Rox Alvarez MD [facility] CPT-4: 34949 01/02/2016 ([id number]) Miscellaneou s no charge Diagnosis: Cutaneous abscess of left axilla[ICD10: L02.412] Rox Alvarez MD [facility] CPT-4: 26689 01/01/2016 (27996) Miscellaneou s no charge Diagnosis: Cutaneous abscess of left axilla[ICD10: L02.412] Rox Alvarez MD [facility] CPT-4: 65208 12/31/2015 ([id number]) Patient adm itted to the hospital from clinic (NO CHARGE) Diagnosis: Cutaneous abscess of left axilla[ICD10: L02.412] Rox Alvarez MD [facility] CPT-4: 41602R 12/25/2015 42267 EST. PATIENT, LEVEL III Diagnosis: Encounter for follow-up examination after completed treatment for conditions other than malignant neoplasm[ICD10: Z09] Diagnosis: Diverticulitis of intestine, part unspecified, without perforation or abscess with bleeding[ICD10: K57.93] Diagnosis: Cellulitis of left toe[ICD10: L03.032] Diagnosis: Other obesity due to excess calories[ICD10: E66.09] Diagnosis: Other fdc (current) drug therapy[ICD10: Z79.899] Rox Alvarez MD, [facility] CPT-4: 54209 10/11/2015 ([id number]) Miscellaneou s no charge Diagnosis: Encounter for therapeutic drug level monitoring[ICD10: Z51.81] Diagnosis: Other acute osteomyelitis, left ankle and foot[ICD10: M86.172] Rox Alvarez MD, [facility] CPT-4: 77339 08/24/2015 48092 EST. PATIENT, LEVEL IV Diagnosis: Cellulitis of left toe[ICD10: L03.032] Rxo Alvarez MD, [facility] CPT-4: 21502 08/20/2015 16344 EST. PATIENT, LEVEL III Diagnosis: Essential (primary) hypertension[ICD10: I10] Diagnosis: Peripheral vascular disease, unspecified[ICD10: I73.9] Diagnosis: Dermatitis, unspecified[ICD10: L30.9] Rox Alvarez MD, [facility] CPT- 4: 24808 12/28/2014 ([id number]) 94113 EST. [facility]: ESSENTIAL HYPERTENSION[ICD9: 401.9] Diagnosis: PAD (peripheral artery disease)[ICD9: 443.9] Diagnosis: Anticoagulated on Coumadin[ICD9: V58.83] Emy Alvarez MD, [facility] CPT-4: 75455 10/31/2014 ([id number]) 54606 EST. P ATIENT, LEVEL III Diagnosis: PAD (peripheral artery disease)[ICD9: 443.9] Diagnosis: Anticoagulated on Coumadin[ICD9: V58.83] Diagnosis: SCLERITIS[ICD9: 379.00] Diagnosis: ESSENTIAL HYPERTENSION[ICD9: 401.9] Selena Alvarez MD, [facility] CPT- 4: 64348 10/02/2014 ([id number]) OFFICE LUIS DOMINGO - LEVEL 4 Diagnosis: GOUT[ICD9: 274.9] Diagnosis: COPD (chronic obstructive pulmonary disease)[ICD9: 496] Diagnosis: PAD (peripheral artery disease)[ICD9: 443.9] Diagnosis: ESSENTIAL HYPERTENSION[ICD9: 401.9] [facility] CPT- 4: 45729 09/21/2014 Plan of Care Planned Activity Notes C odes Status Date Appointment: Rox Luciano WPtel: [facility]2 [facility]66[facility] (15 min) Moderate 09/08/2018 Visit Plan: [...] vein specialist. 06/10/2018 Appointment: Rox Luciano WPtel: [facility]4 [facility]6[address] (30 min) Complex 06/10/2018 Patient [...] continue PT 03/11/2018 Appointment: Rox Luciano WPtel: [facility]9 [facility] (15 min) Moderate 03/11/2018 Patient Education: Patient Medication Summary Completed 03/11/2018 Appointment: Rox Luciano WPtel: [facility]6 [facility]6[address] (30 min) Complex 11/17/2017 Visit Plan: [...] warmth, discharge. 08/28/2017 Appointment: Rox Luciano WPtel: [address] [place], [place] [address] (30 min) [facility] 08/28/2017 Patient Education: Patient Medication Summary Completed [...] ADLs independently. 07/20/2017 Appointment: Rox Luciano WPtel: [facility]5 [facility]6[address] (30 min) Complex 07/20/2017 Patient Education: Patient Medication Summary Completed 07/20/2017 Referral: Stephanie Silva WPtel: Referral Initiated 05/04/2017 Care Plan: Referral Order SNOMED-CT : [id number] Pending 04/30/2017 Visit Plan: Chronic Depression and [...] pain. 04/21/2017 Appointment: Rox Luciano WPtel: [phone] [facility] (30 min) Complex 04/21/2017 Patient Education: Patient [...] stomach pain. 04/07/2017 Appointment: Rox Luciano WPtel: [phone] (30 min) Complex 04/07/2017 Patient Education: Patient Medication Summary Completed 04/07/2017 Appointment: Selena Alvarez WPtel: [facility]5 [address] (15 min) Moderate 02/26/2017 Visit Plan: Hypertension [...] not improving. 01/27/2017 Appointment: Selena Alvarez WPtel: [facility]7 [address] (15 min) Moderate 01/27/2017 Patient Education: Patient [...] with nystatin 11/25/2016 Appointment: Selena Alvarez WPtel: [phone] [facility] (15 min) Moderate 11/25/2016 Appointment: Selena Alvarez WPtel: [phone] [facility] (15 min) Moderate 11/25/2016 Patient Education: [...] of over-medication. 10/15/2016 Appointment: Selena Alvarez WPtel: [facility]9 [facility] (15 min) Moderate 10/15/2016 Patient Education: Patient Medication Summary Completed 10/15/2016 Patient Education: Smoking and Tobacco Addiction Completed 10/15/2016 Appointment: Rox Luciano WPtel: [facility]8 [facility] (30 min) Complex 09/18/2016 Visit Plan: Hypertension [...] evaluation. 08/14/2016 Appointment: Rox Luciano WPtel: [phone] [facility] (30 min) Complex 08/14/2016 Patient Education: Patient [...] pain. 04/16/2016 [facility]ment: [phone] ([facility]) Moderate 04/16/2016 Patient Education: Patient Medication Summary Completed 04/16/2016 Patient Education: Smoking and Tobacco Addiction Completed 04/16/2016 Referral: Dr Arboleda Referral Completed 02/14/2016 Care Plan: Referral Order SNOMED-CT : [id number] Pending 01/29/2016 Visit Plan: Right foot pain - luis snyder - pt states that when he walks [...] warmth, discharge. 01/10/2016 Appointment: Rox Luciano WPtel: [address] [place], [place] [address] (30 min) [facility] 01/10/2016 Patient Education: Patient Medication Summary Completed [...] - Pt states that he went to [facility] for the abscess and they started him on an antibiotic and told him to go home and drain it himself. Axilla to lateral chest wall is erythematous with large area of induration. 3 open sites with thick purulent drainage noted - Dr. Alvarez in to see pt - will admit for IV antibiotics and further I&D. 12/25/2015 Appointment: Emy Westbrook [facility]el[phone] [place] (15 min) Moderate 12/25/2015 Patient [...] care management. 10/11/2015 Appointment: Rox Luciano WPtel: [phone] [facility] (30 min) Complex 10/11/2015 Patient Education: Patient Medication Summary Completed 10/11/2015 Patient Education: Smoking and Tobacco Addiction Completed 10/11/2015 Patient Education: Obesity Completed 10/11/2015 Referral: Gavino Navarro they are g oing to call if they get him in before if not we will call Dr shook Initiated 09/27/2015 Appointment: Emy Westbrook WPtel: [phone] (15 min) Moderate 08/24/2015 Patient Education: Patient Medication Summary Completed 08/24/2015 Patient Education: Smoking and Tobacco Addiction Completed 08/24/2015 Patient Education: Patient Medication Summary Completed 08/23/2015 Appointment: Emy Westbrook WPtel: [facility]5 [phone] (30 min) Complex 08/22/2015 Referral: [facility] W[facility]el: 1 [facility] Referral Initiated 08/22/2015 Visit Plan: Pt on [...] Hypertension Completed 12/28/2014 Appointment: Selena Alvarez WPtel: [facility] Follow up 12/20/2014 Visit Plan: Hypertension [...] 09/21/2014 Care Plan: Referral Order SNOMED-CT : [id number] Ordered 09/21/2014 Appointment: Selena Alvarez WPtel: [phone] [facility] [place] (S) New Patient 09/20/2014 Referral: Martinez Wren WPtel: [phone] [facility] [place] Referral Initiated Referral: Gavino Navarro Referral Initiated Referral: [facility] WPtel: 1 [facility] [place] Referral Initiated Referral: Dr Arboleda Referral Completed Referral: Stephanie Silva WPtel: Referral Initiated Instructions Comment . Left axilla absces s - packing removed - minimal drainage noted, wound cleaned and dressing applied. GO TO YOUR APPOINTME NT WITH DR. NAVARRO ON THURSDAY AT 1230. CONTINUE WITH THE BACTRIM 1 PILL TWICE A DAY. WE WILL CHECK YOUR COUMADIN LEVEL TODAY AND SEE IF WE NEED TO ADJUST IT. WE WILL CALL DR. DOMINGO OFFICE AND SEE WHEN YOUR APPOINTMENT IS. CALL US WITH ANY QUESTIONS OR CONCERNS. . You need to see Dr. Holger SURESH. [...] upon leaving this appointment. Verbalizes understanding. . Right foot pain - ongoing - [...] Left leg amputation - continue PT . Left Axilla absces s and cellulitis - Pt states that he went to [facility] for the abscess and they started him on an antibiotic and told him to go home and drain it himself. Axilla to lateral chest wall is erythematous with large area of induration. 3 open sites with thick purulent drainage noted - Dr. Alvarez in to see pt - will admit for IV antibiotics and further I&D. . Pt on chronic anti coagulation. Dr. [...] check INR on thursday probiotics - culture lle or linares colon heatlh. . Gastroenteritis - [...] continue with wound care management. . Chronic Depression and anxiety - the [...] of the lesion, increase in pain. . Pt is here for a f [...] refer to PT for mobility evaluation. . Chronic Anticoagul ant use - Pt [...] potassium daily x 5 days let your assistant case manager know that you are having some swelling. [...]
--- OUTSIDE RECORDS SUMMARY | 2019-08-20 18:14 | XMS REPORT | CCD ---
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 Name Role Phone PP Unavailable CCM Unavailable Summary Purpose Interface Exchange Insurance Providers Payer name Policy type / Coverage type Covered alliance party ID Effective Begin Date Effective End Date [facility] Commercial Insurance [id number] 2017 Unknown Family history Father Diagnosis Age At Onset Hyperlipidemia Unknown Coronary Artery Disease Unknown Stroke Unknown Cancer Unknown Congestive heart failure Unknown Mother Diagnosis Age At Onset Hypertension Unknown kidney disease Unknown Cancer Unknown Stroke Unknown Hyperlipidemia Unknown Coronary Artery Disease Unknown Congestive heart failure Unknown Social History Social History Element Codes Description Effective Dates Tobacco history SNOMED CT: 360886274730154 Current some days smoker 09/21/2014 Allergies, Adverse [...] ICD-9: 300.00 ICD-10: F41.1 Active 04/21/2017 Unknown nursing home (current) use of anticoagulants ICD-9: V58.61 [...] V67.59 ICD-10: Z09 Active 10/10/2015 Unknown [facility] drug therapy ICD-9: V58.69 ICD-10: [...] disorder ICD-9: 300.00 ICD-10: F41.1 04/21/2017 Active 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 ICD-9: V58.61 ICD-10: [...] ICD-9: V67.59 ICD-10: Z09 10/10/2015 Active Other [facility] (cur rent[facility] drug therapy ICD-9: V58.69 ICD-10: [...] Date Stop Date Sta tus Fill Instructions furosemide 40 mg tablet RxNorm: 554619 TAKE ONE TABLET BY MOUTH DAILY NEEDED FOR SWELLING 09/10/2018 02/06/2019 Active hydrocodone 7.5 mg-a cetaminophen 325 mg tablet RxNorm: 031364 1 Tablet(s) PO QID as needed 08/18/2018 09/16/2018 Active Lexapro 10 mg tablet RxNorm: 610134 TAKE ONE TABLET BY MOUTH AT BEDTIME 08/03/2018 06/28/2019 Ac tive hydrocodone 7.5 mg-a cetaminophen 325 mg tablet RxNorm: 987696 1 Tablet(s) PO QID as needed 07/15/2018 08/13/2018 Inactive Keflex 500 mg capsule RxNorm: 355887 1 Capsule(s) PO TID 06/11/2018 06/17/2018 Inactive Pepcid 20 mg tablet RxNorm: 827582 TAKE ONE TABLET BY MOUTH TWICE A DAY 05/25/2018 09/21/2018 Ac tive hydrocodone 7.5 mg-a cetaminophen 325 mg tablet RxNorm: 047041 1 Tablet(s) PO QID as needed 05/19/2018 06/17/2018 Inactive hydrocodone 7.5 mg-a cetaminophen 325 mg tablet RxNorm: 906590 1 Tablet(s) PO QID as needed 04/19/2018 05/18/2018 Inactive allopurinol 100 mg t ablet RxNorm: 858892 TAKE ONE TABLET BY MO [facility] DAILY 04/06/2018 03/01/2019 Ac tive hydrocodone 7.5 mg-a cetaminophen 325 mg tablet RxNorm: 600265 1 Tablet(s) PO QID as needed 03/11/2018 04/09/2018 Inactive potassium chloride E R 20 mEq tablet,extended release RxNorm: 795758 Tablet(s) TAKE ONE TABLET BY MOUTH DAILY WHEN TAKING FUROSEMIDE NEEDED 03/05/2018 08/31/2018 Inactive gabapentin 300 mg ca psule RxNorm: 384502 TAKE ONE CAPSULE BY [facility] THREE TIMES A DAY 03/04/2018 02/26/2019 Ac tive hydrocodone 7.5 mg-a cetaminophen 325 mg tablet RxNorm: 808907 1 Tablet(s) PO QID as needed 02/18/2018 03/10/2018 Inactive hydrocodone 7.5 mg-a cetaminophen 325 mg tablet RxNorm: 580173 1 Tablet(s) PO QID as needed 01/19/2018 02/17/2018 Inactive hydrocodone 7.5 mg-a cetaminophen 325 mg tablet RxNorm: 873746 1 Tablet(s) PO QID as needed 12/16/2017 01/14/2018 Inactive Pepcid 20 mg tablet RxNorm: 130761 Tablet(s) TAKE ONE TABLET BY MOUTH TWICE A DAY 12/08/2017 05/06/2018 Inactive hydrocodone 7.5 mg-a cetaminophen 325 mg tablet RxNorm: 122916 1 Tablet(s) PO QID as needed 11/18/2017 12/15/2017 Inactive gabapentin 300 mg ca psule RxNorm: 489073 Capsule(s) TAKE ONE C APSULE BY MOUTH THREE TIMES A DAY 11/11/2017 03/03/2018 Inactive gabapentin 300 mg ca psule RxNorm: 962115 TAKE ONE CAPSULE BY M [facility] THREE TIMES A DAY 11/10/2017 11/10/2017 Inactive hydrocodone 7.5 mg-a cetaminophen 325 mg tablet RxNorm: 572360 1 Tablet(s) PO QID as needed 10/19/2017 11/17/2017 Inactive hydrocodone 7.5 mg-a cetaminophen 325 mg tablet RxNorm: 853735 1 Tablet(s) PO QID as needed 09/16/2017 10/15/2017 Inactive doxycycline hyclate 100 mg capsule RxNorm: 1368379 1 Capsule(s) PO BID 08/28/2017 09/06/2017 In active hydrocodone 7.5 mg-a cetaminophen 325 mg tablet RxNorm: 593953 1 Tablet(s) PO QID as needed 08/21/2017 09/15/2017 Inactive Lexapro 10 mg tablet RxNorm: 178885 TAKE ONE TABLET BY MOUTH AT BEDTIME 08/02/2017 07/27/2018 In active Zyrtec 10 mg tablet RxNorm: 2025345 1 Tablet(s) PO daily 07/20/2017 11/16/2017 Inactive hydrocodone 7.5 mg-a cetaminophen 325 mg tablet RxNorm: 729705 1 Tablet(s) PO QID as needed 07/20/2017 09/15/2017 Inactive furosemide 40 mg tablet RxNorm: 199631 Tablet(s) TAKE ONE TABLET BY MOUTH DAILY NEEDED FOR SWELLING 07/08/2017 01/03/2018 Inactive Pepcid 20 mg tablet RxNorm: 702153 TAKE ONE TABLET BY MOUTH TWICE A DAY 06/29/2017 11/25/2017 In active gabapentin 300 mg ca psule RxNorm: 030717 TAKE ONE CAPSULE BY M [facility] THREE TIMES A DAY 06/29/2017 10/26/2017 Inactive hydrocodone 7.5 mg-a cetaminophen 325 mg tablet RxNorm: 124974 1 Tablet(s) PO QID as needed 06/18/2017 07/17/2017 Inactive hydrocodone 7.5 mg-a cetaminophen 325 mg tablet RxNorm: 395431 1 Tablet(s) PO QID as needed 05/18/2017 06/16/2017 Inactive hydrocodone 7.5 mg-a cetaminophen 325 mg tablet RxNorm: 659507 1 Tablet(s) PO QID as needed 04/21/2017 05/17/2017 Inactive hyoscyamine 0.125 mg sublingual tablet RxNorm: 1330987 1 Tablet(s) SL TID a s needed 04/21/2017 04/25/2017 In active Lexapro 10 mg tablet RxNorm: 537137 1 Tablet(s) PO QHS 04/21/2017 07/19/2017 Inactive Flagyl 500 mg tablet RxNorm: 371827 1 Tablet(s) PO TID 04/07/2017 04/16/2017 Inactive Lexapro 10 mg tablet RxNorm: 695810 1 Tablet(s) PO QHS 04/07/2017 04/20/2017 Inactive hydrocodone 7.5 mg-a cetaminophen 325 mg tablet RxNorm: 093662 1 Tablet(s) PO QID as needed 03/24/2017 04/20/2017 Inactive allopurinol 100 mg t ablet RxNorm: 241595 TAKE ONE TABLET BY [facility] DAILY 03/10/2017 03/04/2018 In active hydrocodone 7.5 mg-a cetaminophen 325 mg tablet RxNorm: 980678 1 Tablet(s) PO QID as needed 02/11/2017 03/12/2017 Inactive gabapentin 300 mg ca psule RxNorm: 340881 TAKE ONE CAPSULE BY [facility] THREE TIMES A DAY 02/02/2017 06/28/2017 Inactive Zofran ODT 4 mg disi ntegrating tablet RxNorm: 138315 1 Tablet(s) PO QID as needed nausea and vomitting 01/27/2017 No Stop Date Active hydrocodone 7.5 mg-a cetaminophen 325 mg tablet RxNorm: 516086 1 Tablet(s) PO QID as needed 01/13/2017 02/10/2017 Inactive potassium chloride E R 20 mEq tablet,extended release RxNorm: 039416 TAKE ONE TABLET BY MOUTH DAILY WHEN TAKING FUROSEMIDE NEEDED 01/12/2017 07/10/2017 Inactive furosemide 40 mg tablet RxNorm: 232101 TAKE ONE TABLET BY MOUTH DAILY NEEDED FOR SWELLING 01/12/2017 07/09/2017 Inactive promethazine 25 mg t ablet RxNorm: 124692 TAKE ONE TABLET BY MO [facility] THREE TIMES A DAY NEEDED FOR NAUSEA AND VOMITING 01/12/2017 01/31/2017 Inactive promethazine 25 mg t ablet RxNorm: 851304 1 Tablet(s) PO TID as needed nausea and vomitting 01/06/2017 01/11/2017 Inactive Lomotil 2.5 mg-0.025 mg tablet RxNorm: 5640291 1-2 Tablet(s) PO BID as needed diarrhea 01/06/2017 01/05/2017 Inactive Lomotil 2.5 mg-0.025 mg tablet RxNorm: 5813219 1-2 Tablet(s) PO BID as needed diarrhea 01/06/2017 01/07/2017 Inactive Pepcid 20 mg tablet RxNorm: 960222 1 Tablet(s) PO BID 12/19/2016 06/16/2017 Inactive Pepcid 20 mg tablet RxNorm: 333502 1 Tablet(s) PO BID 12/16/2016 12/18/2016 Inactive hydrocodone 7.5 mg-a cetaminophen 325 mg tablet RxNorm: 249722 1 Tablet(s) PO QID as needed 12/16/2016 01/12/2017 Inactive hydrocodone 7.5 mg-a cetaminophen 325 mg tablet RxNorm: 738462 1 Tablet(s) PO QID as needed 11/18/2016 12/15/2016 Inactive allopurinol 100 mg t ablet RxNorm: 780658 TAKE ONE TABLET BY [facility] DAILY 10/29/2016 02/25/2017 In active hydrocodone 7.5 mg-a cetaminophen 325 mg tablet RxNorm: 425463 1 Tablet(s) PO QID as needed 10/15/2016 11/13/2016 Inactive nystatin 100,000 uni t/gram topical cream RxNorm: 980398 1 Gram(s) TOP QID 10/15/2016 11/25/2016 In active nystatin 100,000 uni t/gram topical powder RxNorm: 195031 1 Gram(s) TOP TID TO GROIN OR AFFECTED AREA 10/14/2016 No Stop Date Active hydrocodone 7.5 mg-a cetaminophen 325 mg tablet RxNorm: 480252 1 Tablet(s) PO QID as needed 09/17/2016 10/14/2016 Inactive furosemide 40 mg tablet RxNorm: 648788 1 Tablet(s) PO daily as needed swelling 09/17/2016 01/11/2017 In active potassium chloride E R 20 mEq tablet,extended release RxNorm: 150073 1 Tablet(s) PO daily as needed take when taking a lasix pill 09/17/2016 01/11/2017 Inactive Levaquin 500 mg tablet RxNorm: 308673 1 Tablet(s) PO daily 09/17/2016 09/21/2016 Inactive hydrocodone 7.5 mg-a cetaminophen 325 mg tablet RxNorm: 239346 1 Tablet(s) PO QID as needed 08/14/2016 09/12/2016 Inactive cyclobenzaprine 5 mg tablet RxNorm: 475450 1 Tablet(s) PO TID as needed 07/25/2016 07/29/2016 In active cyclobenzaprine 5 mg tablet RxNorm: 159316 1 Tablet(s) PO TID as needed 07/25/2016 07/24/2016 In active hydrocodone 7.5 mg-a cetaminophen 325 mg tablet RxNorm: 048684 1 Tablet(s) PO QID as needed 07/21/2016 08/13/2016 Inactive warfarin 1 mg tablet RxNorm: 409852 TAKE ONE TABLET BY MOUTH EVERY EVENING 06/26/2016 08/04/2016 In active hydrocodone 7.5 mg-a cetaminophen 325 mg tablet RxNorm: 739223 1 Tablet(s) PO QID as needed 06/24/2016 07/20/2016 Inactive hydrocodone 5 mg-yanira taminophen 325 mg tablet RxNorm: 968810 1 Tablet(s) PO Q6 as needed for pain 06/09/2016 06/10/2016 Inactive warfarin 1 mg tablet RxNorm: 290161 TAKE ONE TABLET BY MOUTH EVERY EVENING 06/02/2016 06/21/2016 In active allopurinol 100 mg t ablet RxNorm: 529357 TAKE ONE TABLET BY MO [facility] DAILY 05/21/2016 10/17/2016 In active hydrocodone 7.5 mg-a cetaminophen 325 mg tablet RxNorm: 593011 1 Tablet(s) PO QID as needed 05/09/2016 06/07/2016 Inactive gabapentin 300 mg ca psule RxNorm: 692251 Capsule(s) TAKE ONE C APSULE BY MOUTH THREE TIMES A DAY 04/25/2016 11/09/2017 Inactive promethazine 25 mg t ablet RxNorm: 786189 TAKE ONE TABLET BY MO [facility] THREE TIMES A DAY NEEDED 2016 05/01/2016 Inactive warfarin 1 mg tablet RxNorm: 654424 TAKE ONE TABLET BY MOUTH EVERY EVENING 2016 05/31/2016 In active promethazine 25 mg t ablet RxNorm: 384207 1 Tablet(s) PO TID as needed 04/16/2016 04/21/2016 In active warfarin 1 mg tablet RxNorm: 339691 TAKE ONE TABLET BY MOUTH EVERY EVENING 02/13/2016 04/12/2016 In active magnesium oxide 400 mg tablet RxNorm: 431091 TAKE ONE TABLET BY MO [facility] TWICE A DAY 02/07/2016 01/01/2017 In active hydrocodone 5 mg-yanira taminophen 325 mg tablet RxNorm: 377755 1 Tablet(s) PO Q6 as needed for pain 01/21/2016 02/19/2016 Inactive warfarin 1 mg tablet RxNorm: 419599 TAKE ONE TABLET BY MOUTH EVERY EVENING 01/17/2016 02/05/2016 In active gabapentin 300 mg ca psule RxNorm: 384484 Capsule(s) TAKE ONE C APSULE BY MOUTH THREE TIMES A DAY 01/11/2016 04/24/2016 Inactive prednisone 10 mg tablet RxNorm: 255786 Tablet(s) PO UD 01/10/2016 03/08/2018 Inactive 60mg x2 days, then 50mg x2 days, then 40mg x2 days, 30mg x2 days, 20mg x2 days, 10mg x2days, 5mg every other day x 2 doses Kenalog 40 mg/mL cassius pension for injection RxNorm: 8444573 Milliliter(s) Inj 01/07/2016 01/07/2016 In active warfarin 1 mg tablet RxNorm: 831891 TAKE ONE TABLET BY MOUTH EVERY EVENING 01/01/2016 01/16/2016 In active hydrocodone 5 mg-yanira taminophen 325 mg tablet RxNorm: 632420 1 Tablet(s) PO Q6 as needed for pain 01/01/2016 01/15/2016 Inactive gabapentin 300 mg ca psule RxNorm: 683547 TAKE ONE CAPSULE BY M [facility] THREE TIMES A DAY 12/12/2015 01/10/2016 Inactive warfarin 5 mg tablet RxNorm: 349317 1 Tablet(s) PO daily 12/05/2015 No Stop Date Active warfarin 1 mg tablet RxNorm: 483227 TAKE ONE TABLET BY MOUTH EVERY EVENING 11/13/2015 12/22/2015 In active hydrocodone 5 mg-yanira taminophen 325 mg tablet RxNorm: 338324 1 Tablet(s) PO Q6 as needed for pain 10/26/2015 11/09/2015 Inactive allopurinol 100 mg t ablet RxNorm: 248908 1 Tablet(s) PO daily TAKE ONE TABLET BY MOUTH DAILY 10/18/2015 04/14/2016 Inactive hydrocodone 5 mg-yanira taminophen 325 mg tablet RxNorm: 547965 1 Tablet(s) PO Q6 as needed for pain 09/26/2015 10/10/2015 Inactive gabapentin 300 mg ca psule RxNorm: 098192 TAKE ONE CAPSULE BY M [facility] THREE TIMES A DAY 09/14/2015 12/11/2015 Inactive warfarin 1 mg tablet RxNorm: 585709 1 Tablet(s) PO QPM 09/14/2015 11/12/2015 Inactive hydrocodone 5 mg-yanira taminophen 325 mg tablet RxNorm: 050713 1 Tablet(s) PO Q6 as needed for pain 09/12/2015 09/25/2015 Inactive hydrocodone 5 mg-yanira taminophen 325 mg tablet RxNorm: 469380 1 Tablet(s) PO Q6 as needed for pain 08/22/2015 09/05/2015 Inactive Bactrim DS 800 mg-16 0 mg tablet RxNorm: 332758 1 Tablet(s) PO BID 08/20/2015 09/02/2015 Inactive magnesium oxide 400 mg tablet RxNorm: 033378 TAKE ONE TABLET BY MO [facility] TWICE A DAY 01/20/2015 01/14/2016 In active gabapentin 300 mg ca psule RxNorm: 990522 TAKE ONE CAPSULE BY M [facility] THREE TIMES A DAY 01/20/2015 05/19/2015 Inactive magnesium oxide 400 mg tablet RxNorm: 891053 1 Tablet(s) PO BID 01/17/2015 05/16/2015 Inactive gabapentin 300 mg ca psule RxNorm: 684796 1 Capsule(s) PO TID 01/17/2015 05/16/2015 Inactive allopurinol 100 mg t ablet RxNorm: 942196 TAKE ONE TABLET BY MO [facility] DAILY 10/18/2014 10/12/2015 In active Kenalog 40 mg/mL cassius pension for injection RxNorm: 8690592 1 Milliliter(s) Inj 09/21/2014 09/21/2014 In active allopurinol 100 mg t ablet RxNorm: 138101 1 Tablet(s) PO daily 09/21/2014 10/17/2014 Inactive gabapentin 300 mg ca psule RxNorm: 204728 1 Capsule(s) PO TID 09/12/2014 01/09/2015 Inactive gabapentin 300 mg ca psule RxNorm: 394409 1 Capsule(s) PO TID 09/12/2014 09/11/2014 Inactive magnesium oxide 400 mg tablet RxNorm: 998674 1 Tablet(s) PO BID 09/12/2014 01/09/2015 Inactive magnesium oxide 400 mg tablet RxNorm: 570284 1 Tablet(s) PO BID 09/12/2014 09/11/2014 Inactive lisinopril 5 mg tablet RxNorm: 989465 1 Tablet(s) PO daily No Start Date Active atorvastatin oral RxNorm: 17105 oral No Start Date Active Coreg 6.25 mg tablet RxNorm: 066997 1 Tablet(s) PO BID No Start Date Active Combivent Respimat 2 0 mcg-100 mcg/actuation solution for inhalation RxNorm: 2203064 1 Puff(s) INH as needed No Start Date Active Ventolin Refill 90 m cg/actuation aerosol inhaler RxNorm: 891252 2 INH as needed No Start Date Active Centrum Silver Women oral RxNorm: [address] art Date Active aspirin 81 mg capsul e,delayed release RxNorm: 163403 1 Capsule(s) PO daily No Start Date Active nystatin 100,000 uni t/gram topical powder RxNorm: 913920 1 Gram(s) TOP TID No Start Date 10/13/2016 Inactive warfarin 1 mg tablet RxNorm: 681407 oral No Start Date 09/13/2015 Inactive Pepcid 20 mg tablet RxNorm: 983076 1 Tablet(s) PO BID No Start Date 12/15/2016 Inactive Protonix 40 mg table t,delayed release RxNorm: 638321 1 Tablet(s) PO daily No Start Date 09/16/2016 Inactive warfarin 5 mg tablet RxNorm: 248230 1 Tablet(s) PO daily 1.5 tabs on Thu No Start Date 12/04/2015 Inactive minocycline 50 mg ca psule RxNorm: 020514 1 Capsule(s) PO BID o rdered by Dr. Saravia No Start Date 03/08/2018 Inactive furosemide 40 mg tablet RxNorm: 060895 1 Tablet(s) PO daily No Start Date 09/16/2016 Inactive Medication Administered Medication Codes Instruc tions Start Date Status Kenalog 40 mg/mL suspension for injection RxNorm: 1054988 Milliliter 01/07/2016 No longer Active Kenalog 40 mg/mL suspension for injection RxNorm: 3930033 1Milliliter 09/21/2014 N o longer Active Immunizations No Immunization data Assessments Condition Codes Effectiv e Dates Localized edema ICD-10: R60.0 ICD-9: 782.3 06/10/2018 Varicose veins of right lower extremity with pain ICD-10: I83.811 ICD-9: 454.8 06/10/2018 Chronic pain syndrome ICD-10: G89.4 ICD-9: 338.4 03/11/2018 nursing home (current) use of anticoagulants ICD-10: Z79.01 ICD-9: [...] neoplasm ICD-10: Z09 ICD-9: V67.59 10/11/2015 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 ICD-10: Z79.899 ICD-9: [...] Item Item Code Result Date Comp Metabolic Oja950 NA 136 mEq/L 03/11/2018 Comp Metabolic Cor983 K 4.3 mEq/L 03/11/2018 Comp Metabolic Bix223 CL 101 mEq/L 03/11/2018 Comp Metabolic Faj273 CO2 27.0 mEq/L 03/11/2018 Comp Metabolic Cgp583 AN ION GAP 12 03/11/2018 Comp Metabolic Dpe256 GL UCOSE 87 mg/dL 03/11/2018 Comp Metabolic Scy087 Cr eat 1.0 mg/dL 03/11/2018 Comp Metabolic Geo159 eG FR 79 ml/min/1.73m2 03/11 Comp Metabolic Ajf852 BUN 12 mg/dL 03/11/2018 Comp Metabolic Kqo524 B/ C Ratio 12.1 Ratio 03/11/2018 Comp Metabolic Dpx411 CA LCIUM 8.9 mg/dL 03/11/2018 Comp Metabolic Kbq134 AL K PHOS 106 U/L 03/11/2018 Comp Metabolic Xaz667 T(SGOT) 16 U/L 03/11/2018 Comp Metabolic Rea045 AL T(SGPT) 11 U/L 03/11/2018 Comp Metabolic Myi866 BI LI T 0.4 mg/dL 03/11/2018 Comp Metabolic Rjp763 AL BUMIN 3.8 g/dL 03/11/2018 Comp Metabolic Oqv261 TP RO 6.5 g/dL 03/11/2018 Comp Metabolic Nul300 GL OB 2.7 g/dL 03/11/2018 Comp Metabolic Akj326 A/ G Ratio 1.4 Ratio 03/11/2018 Comp Metabolic Xih007 Os mo 271 mOsmo 03/11/2018 Cbc With [...] 29.8 pg 03/11/2018 Cbc With Differential Ord2 [place]% 11.3 % 03/11/2018 Cbc With Differential Ord2 [...] 2.87 K/ul 03/11/2018 Cbc With Differential Ord2 [place] ABS# 1.1 K/ul 03/11/2018 Cbc With Differential Ord2 Eos ABS# 0.4 K/ul 03/11/2018 Cbc With Differential Ord2 Baso ABS# 0.0 K/ul 03/11/2018 Pt Phh2265 PT 31.3 seconds 03/11/2018 Pt Arp1860 INR 3.1 03/11/2018 Pt Hga6081 Low Intensity - 1.5-2.0 03/11/2018 Pt Tnq2143 Mod intensity - 2.0-3.0 03/11/2018 Pt Ytv9227 Hi intensity - 3.0-4.0 03/11/2018 Tsh Ord6 TSH (3rd IS) 2.01 uIU/mL 03/11/2018 Shiga Toxin 1 & 2 Eia Stool [id number] SHIGA TOXIN 1: NEGATIVE 04/12/2017 Shiga Toxin 1 & 2 Eia Stool [id number] SHIGA TOXIN 2: NEGATIVE 04/12/2017 Culture Stool [id number] STO OL CULTURE SEE NOTES 04/12/2017 Clostridium Diff Tox A/B Uis584 Cdiff Negative 04/09/2017 Pt Fcv0514 PT 64.8 seconds 01/10/2016 Pt Hwh8598 INR 8.6 01/10/2016 Pt Yyt5431 Low Intensity - 1.5-2.0 01/10/2016 Pt Ccv8327 Mod intensity - 2.0-3.0 01/10/2016 Pt Pfm4383 Hi intensity - 3.0-4.0 01/10/2016 Pt Ink2948 PT 32.1 seconds 11/01/2014 Pt Edg7615 INR 3.2 11/01/2014 Pt Lch4782 Low Intensity - 1.5-2.0 11/01/2014 Pt Bmf6493 Mod intensity - 2.0-3.0 11/01/2014 Pt Miz7244 Hi intensity - 3.0-4.0 11/01/2014 Pt Ffw7825 PT 30.2 seconds 10/03/2014 Pt Gzz4911 INR 3.0 10/03/2014 Pt Aqc1131 Low Intensity - 1.5-2.0 10/03/2014 Pt Qel8442 Mod intensity - 2.0-3.0 10/03/2014 Pt Acn5205 Hi intensity - 3.0-4.0 10/03/2014 D-Dimer D-DIMER 475 NG/ML 09/25/2014 D-Dimer COMMENT 09/25/2014 Magnesium Ord90 Mag 1.1 Result Verified By Repeat Analysis mg/dL 09/22/2014 Pt Bxs1831 PT 32.0 seconds 09/22/2014 Pt Olp4055 INR 3.2 09/22/2014 Pt Jij3172 Low Intensity - 1.5-2.0 09/22/2014 Pt Cwe2800 Mod intensity - 2.0-3.0 09/22/2014 Pt Gsb1250 Hi intensity - 3.0-4.0 09/22/2014 Comp Metabolic Thu688 NA 137 mEq/L 09/22/2014 Comp Metabolic Cvt758 K 4.2 mEq/L 09/22/2014 Comp Metabolic Ylh221 CL 102 mEq/L 09/22/2014 Comp Metabolic Uok505 CO2 25.0 mEq/L 09/22/2014 Comp Metabolic Qzk651 AN ION GAP 14 09/22/2014 Comp Metabolic Yuj547 GL UCOSE 94 mg/dL 09/22/2014 Comp Metabolic Vck446 Cr eat 0.8 mg/dL 09/22/2014 Comp Metabolic Enn921 eG FR 102 ml/min/1.73m2 09/06 Comp Metabolic Gwm240 BUN 15 mg/dL 09/22/2014 Comp Metabolic Ipw899 B/ C Ratio 18.8 Ratio 09/22/2014 Comp Metabolic Hkn461 CA LCIUM 9.4 mg/dL 09/22/2014 Comp Metabolic Ufh946 AL K PHOS 65 U/L 09/22/2014 Comp Metabolic Vrd312 T(SGOT) 15 U/L 09/22/2014 Comp Metabolic Hth383 AL T(SGPT) 8 U/L 09/22/2014 Comp Metabolic Aui260 BI LI T 0.4 mg/dL 09/22/2014 Comp Metabolic Jom420 AL BUMIN 4.0 g/dL 09/22/2014 Comp Metabolic Dwz231 TP RO 6.8 g/dL 09/22/2014 Comp Metabolic Ehv466 GL OB 2.8 g/dL 09/22/2014 Comp Metabolic Gsi455 A/ G Ratio 1.4 Ratio 09/22/2014 Comp Metabolic Ylp833 Os mo 274 mOsmo 09/22/2014 C-Reactive Protein [...] nourished 03/11/2018 None Full Exam - General 1995 Eyes conjunctiva/eyelids Overall: conjunctiva clear 03/11/2018 None Full Exam - General 1994 Eyes conjunctiva/eyelids Overall: cornea clear 03/11/2018 None Full Exam - General 1994 Eyes conjunctiva/eyelids Overall: eyelids normal 03/11/2018 None Full Exam - General 1995 Ears/Nose/Throat lips/teeth/gingiva Overall: benign lips 03/11/2018 None [...] Procedure Codes Date THER/PROPH/DIAG INJ SC/IM CPT-4: 17578 08/28/2017 ROCEPHIN, PER 250 MG CPT-4: J0696 08/28/2017 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 3-[address]: 758774071 CPT-4: G0436 01/27/2017 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 3-[address]: 647602247 CPT-4: G0436 11/25/2016 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 3-[address]: 495624747 CPT-4: G0436 10/15/2016 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 3-[address]: 622891028 CPT-4: G0436 09/17/2016 THER/PROPH/DIAG INJ SC/IM CPT-4: 43194 01/07/2016 TRIAMCINOLONE ACET I [place] NOS CPT-4: J3301 01/07/2016 TRIAMCINOLONE ACET I [place] NOS CPT-4: J3301 09/21/2014 THER/PROPH/DIAG INJ SC/IM CPT-4: 90011 09/21/2014 Vital Signs Date Vital 06/10/2018 Blood Pressure 1: 122/60 Code: 8480-6 BMI: 31.4 Code: 89451-7 Heart Rate 1: 75 bpm Height: 5'3" SpO2: 98% Weight: 177 lbs 03/11/2018 Blood Pressure 1: 134/82 Code: 8480-6 BMI: 32.8 Code: 32822-1 Heart Rate 1: 65 bpm Height: 5'3" SpO2: 96% Weight: 185 lbs 08/28/2017 Blood Pressure 1: 138/72 Code: 8480-6 Heart Rate 1: 80 bpm Height: SpO2: 98% Weight: 07/20/2017 Blood Pressure 1: 134/76 Code: 8480-6 BMI: 29.6 Code: 15284-5 Heart Rate 1: 82 bpm Height: 5'3" [...] 1: 128/78 Code: 8480-6 BMI: 33.3 Code: 45494-3 Heart Rate 1: 72 bpm Height: 5'3" SpO2: 97% Weight: 188 lbs 01/10/2016 Blood Pressure 1: 132/76 Code: 8480-6 BMI: 33.1 Code: 79319-3 Heart Rate 1: 72 bpm Height: 5'3" SpO2: 97% Weight: 187 lbs 12/25/2015 Blood Pressure 1: 154/82 Code: 8480-6 BMI: 33.1 Code: 48608-9 Heart Rate 1: 72 bpm Height: 5'3" SpO2: 97% Weight: 187 lbs 10/11/2015 Blood Pressure 1: 110/62 Code: 8480-6 BMI: 34.7 Code: 33795-8 Heart Rate 1: 70 bpm Height: 5'3" SpO2: 93% Weight: 196 lbs 08/24/2015 Blood Pressure 1: 132/62 Code: 8480-6 BMI: 35.3 Code: 43066-8 Heart Rate 1: 62 bpm Height: 5'3" SpO2: 93% Weight: 199 lbs 08/20/2015 Blood Pressure 1: 140/68 Code: 8480-6 BMI: 35.3 Code: 00057-1 Heart Rate 1: 74 bpm Height: 5'3" SpO2: 96% Weight: 199 lbs 12/28/2014 Blood Pressure 1: 130/72 Code: 8480-6 BMI: 33.1 Code: 18269-9 Heart Rate 1: 60 bpm Height: 5'3" SpO2: 97% Weight: 187 lbs 10/31/2014 Blood Pressure 1: 118/72 Code: 8480-6 BMI: 31.2 Code: 11919-7 Heart Rate 1: 58 bpm Height: 5'3" SpO2: 98% Weight: 176 lbs 10/02/2014 Blood Pressure 1: 138/74 Code: 8480-6 BMI: 30.6 Code: 35170-8 Heart Rate 1: 72 bpm Height: 5'3" Weight: 173 lbs 09/21/2014 Blood Pressure 1: 138/72 Code: 8480-6 BMI: 30.5 Code: 97765-3 Heart Rate 1: 60 bpm Height: 5'3" [...] 12/25/2015 None Hospital Follow Up _ [facility] er: diverticulitis 10/11/2015 None Hospital Follow [...] extremity with pain[ICD10: I83.811] Rox Alvarez MD, [facility] CPT-4: 10307 06/10/2018 [id number] EST. 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 PATIENT, LEVEL III Diagnosis: Cellulitis of left axilla[ICD10: L03.112] Diagnosis: Cellulitis of right axilla[ICD10: L03.111] Rox Alvarez MD, [facility] CPT-4: 28405 08/28/2017 [id number] EST. 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 PATIENT, LEVEL IV Diagnosis: Generalized anxiety disorder[ICD10: F41.1] Diagnosis: Major depressive disorder, single episode, moderate[ICD10: F32.1] Diagnosis: Diarrhea, unspecified[ICD10: R19.7] Rox Alvarez MD, [facility] CPT-4: 43464 04/21/2017 81637 EST. PATIENT, LEVEL IV Diagnosis: Generalized anxiety disorder[ICD10: F41.1] Diagnosis: Major depressive disorder, single episode, moderate[ICD10: F32.1] Diagnosis: Nausea[ICD10: R11.0] Diagnosis: Diarrhea, unspecified[ICD10: R19.7] Rox Alvarez MD, [facility] CPT-4: 98325 04/07/2017 ([id number]) 07894 EST. P ATIENT, LEVEL IV Diagnosis: Essential (primary) hypertension[ICD10: I10] Diagnosis: Nausea[ICD10: R11.0] Diagnosis: Other fecal abnormalities[ICD10: R19.5] Diagnosis: Tobacco use[ICD10: Z72.0] Selena Alvarez MD, [facility] CPT-4: 08800 01/27/2017 ([id number]) 27666 EST. P ATIENT, LEVEL III Diagnosis: Essential (primary) hypertension[ICD10: I10] Diagnosis: Chronic obstructive pulmonary disease, unspecified[ICD10: J44.9] Diagnosis: Rash and other nonspecific skin eruption[ICD10: R21] Selena Alvarez MD, [facility] CPT-4: 55968 11/25/2016 ([id number]) 56792 EST. P ATIENT, LEVEL III Diagnosis: Other sites of candidiasis[ICD10: B37.89] Selena Alvarez MD, [facility] CPT-4: 67105 10/15/2016 ([id number]) 75307 EST. P ATIENT, LEVEL IV Diagnosis: Essential (primary) hypertension[ICD10: I10] Diagnosis: Urinary tract infection, site not specified[ICD10: N39.0] Diagnosis: Localized edema[ICD10: R60.0] Selena Alvarez MD, [facility] CPT-4: 22682 09/17/2016 13413 EST. 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 PATIENT, LEVEL III Diagnosis: Other specified bacterial intestinal infections[ICD10: A04.8] Rox Alvarez MD, [facility] CPT-4: 29957 04/16/2016 92559 EST. PATIENT, LEVEL II Diagnosis: Pain in right foot[ICD10: M79.671] Rox Alvarez MD [facility] CPT-4: 47649 01/21/2016 13271 EST. PATIENT, LEVEL III Diagnosis: Encounter for therapeutic drug level monitoring[ICD10: Z51.81] Diagnosis: Rash and other nonspecific skin eruption[ICD10: R21] Rox Alvarez MD [facility] CPT-4: 82317 01/10/2016 54606 EST. PATIENT, LEVEL III Diagnosis: Rash and other nonspecific skin eruption[ICD10: R21] Rox Alvarez MD [facility] CPT-4: 47685 01/07/2016 (10141) Miscellaneou s no charge Diagnosis: Cutaneous abscess of left axilla[ICD10: L02.412] Rox Alvarez MD [facility] CPT-4: 36871 01/02/2016 (47258) Miscellaneou s no charge Diagnosis: Cutaneous abscess of left axilla[ICD10: L02.412] Rox Alvarez MD, [facility] CPT-4: 69146 01/01/2016 (67503) Miscellaneou s no charge Diagnosis: Cutaneous abscess of left axilla[ICD10: L02.412] Rox Alvarez MD [facility] CPT-4: 66684 12/31/2015 ([id number]) Patient adm itted to the hospital from clinic (NO CHARGE) Diagnosis: Cutaneous abscess of left axilla[ICD10: L02.412] Rox Alvarez MD, [facility] CPT-4: 82129U 12/25/2015 15590 EST. PATIENT, LEVEL III Diagnosis: Encounter for follow-up examination after completed treatment for conditions other than malignant neoplasm[ICD10: Z09] Diagnosis: Diverticulitis of intestine, part unspecified, without perforation or abscess with bleeding[ICD10: K57.93] Diagnosis: Cellulitis of left toe[ICD10: L03.032] Diagnosis: Other obesity due to excess calories[ICD10: E66.09] Diagnosis: Other penitentiary (current) drug therapy[ICD10: Z79.899] [facility] CPT-4: 85966 10/11/2015 ([id number]) Miscellaneou s no charge Diagnosis: Encounter for therapeutic drug level monitoring[ICD10: Z51.81] Diagnosis: Other acute osteomyelitis, left ankle and foot[ICD10: M86.172] [facility] CPT-4: 83498 08/24/2015 69120 EST. PATIENT, LEVEL IV Diagnosis: Cellulitis of left toe[ICD10: L03.032] [facility] CPT-4: 74683 08/20/2015 45436 EST. PATIENT, LEVEL III Diagnosis: Essential (primary) hypertension[ICD10: I10] Diagnosis: Peripheral vascular disease, unspecified[ICD10: I73.9] Diagnosis: Dermatitis, unspecified[ICD10: L30.9] [facility] CPT- 4: 86503 12/28/2014 ([id number]) 14294 EST. [facility] Diagnosis: ESSENTIAL HYPERTENSION[ICD9: 401.9] Diagnosis: PAD (peripheral artery disease)[ICD9: 443.9] Diagnosis: Anticoagulated on Coumadin[ICD9: V58.83] [facility] CPT-4: 93912 10/31/2014 ([id number]) 43359 EST. P ATIENT, LEVEL III Diagnosis: PAD (peripheral artery disease)[ICD9: 443.9] Diagnosis: Anticoagulated on Coumadin[ICD9: V58.83] Diagnosis: SCLERITIS[ICD9: 379.00] Diagnosis: ESSENTIAL HYPERTENSION[ICD9: 401.9] [facility] CPT- 4: 83221 10/02/2014 ([id number]) OFFICE VISI , [facility] - LEVEL 4 Diagnosis: GOUT[ICD9: 274.9] Diagnosis: COPD (chronic obstructive pulmonary disease)[ICD9: 496] Diagnosis: PAD (peripheral artery disease)[ICD9: 443.9] Diagnosis: ESSENTIAL HYPERTENSION[ICD9: 401.9] [facility] CPT- 4: 84458 09/21/2014 Plan of Care Planned Activity Notes C odes Status Date Appointment: Rox Luciano WPtel: [facility] (15 min) Moderate 09/08/2018 Visit Plan: Edema [...] vein specialist. 06/10/2018 Appointment: Rox Luciano WPtel: [facility] (30 min) Complex 06/10/2018 Patient Education: Patient [...] continue PT 03/11/2018 Appointment: Rox Luciano WPtel: [facility] (15 min) Moderate 03/11/2018 Patient Education: Patient Medication Summary Completed 03/11/2018 Appointment: Rox Luciano WPtel: [facility] (30 min) Complex 11/17/2017 Visit Plan: [...] warmth, discharge. 08/28/2017 Appointment: Rox Luciano WPtel: [facility] (30 min) [facility] 08/28/2017 Patient Education: Patient Medication Summary [...] ADLs independently. 07/20/2017 [phone] ([facility] 07/20/2017 Patient Education: Patient Medication Summary Completed 07/20/2017 Referral: Stephanie Silva WPtel: Referral Initiated 05/04/2017 Care Plan: Referral Order SNOMED-CT : [id number] Pending 04/30/2017 Visit Plan: Chronic Depression and [...] pain. 04/21/2017 App[facility]ment[phone] ([facility] Complex 04/21/2017 Patient Education: [...] pain. 04/07/2017 Appointment: Rox Luciano WPtel: [phone] [facility] (30 min) Complex 04/07/2017 Patient Education: Patient Medication Summary Completed 04/07/2017 Appointment: Selena Alvarez WPtel: [phone] [facility] (15 min) Moderate 02/26/2017 Visit Plan: [...] improving. 01/27/2017 Appointment: Selena Alvarez WPtel: [phone] [facility] (15 min) Moderate 01/27/2017 Patient Education: [...] with nystatin 11/25/2016 Appointment: Selena Alvarez WPtel: [phone] [facility] (15 min) Moderate 11/25/2016 Appointment: Selena Alvarez WPtel: [phone] [facility] (15 min) Moderate 11/25/2016 Patient Education: [...] over-medication. 10/15/2016 Appointment: Selena Alvarez WPtel: [phone] [facility] (15 min) Moderate 10/15/2016 Patient Education: Patient Medication Summary Completed 10/15/2016 Patient Education: Smoking and Tobacco Addiction Completed 10/15/2016 App[facility]ment[phone] ([facility] Complex 09/18/2016 Visit Plan: [...] evaluation. 08/14/2016 Appointment[phone] ([facility]) Complex 08/14/2016 Patient Education: [...] pain. 04/16/2016 Appointment: [phone] ([facility] min) Moderate 04/16/2016 Patient Education: Patient Medication Summary Completed 04/16/2016 Patient Education: Smoking and Tobacco Addiction Completed 04/16/2016 Referral: Dr Arboleda Referral Completed 02/14/2016 Care Plan: Referral Order SNOMED-CT : [id number] Pending 01/29/2016 Visit Plan: Right foot pain [...] warmth, discharge. 01/10/2016 Appointment: Rox Luciano WPtel: [address] [place] [address] (30 min) [facility] 01/10/2016 Patient Education: Patient Medication Summary [...] further I&D. 12/25/2015 Appointment: [facility] Westbrook [facility]el[phone] [facility] [place] (15 min) Moderate 12/25/2015 Patient [...] care management. 10/11/2015 Appointment: [phone] [facility] ([facility]) Complex 10/11/2015 Patient Education: Patient Medication Summary Completed 10/11/2015 Patient Education: Smoking and Tobacco Addiction Completed 10/11/2015 Patient Education: Obesity Completed 10/11/2015 Referral: Gavino Navarro they are g oing to call if they get him in before if not we will call Dr shook Initiated 09/27/2015 Appointment: Emy Westbrook WPtel: [phone] [facility] (15 min) Moderate 08/24/2015 Patient Education: Patient Medication Summary Completed 08/24/2015 Patient Education: Smoking and Tobacco Addiction Completed 08/24/2015 Patient Education: Patient Medication Summary Completed 08/23/2015 Appointment: Emy Westbrook WPtel: [phone] [phone] (30 min) Complex 08/22/2015 Referral: [facility] Referral Initiated 08/22/2015 Visit Plan: Pt [...] Completed 12/28/2014 App[facility]ment: [phone] Follow up 12/20/2014 Visit Plan: Hypertension [...] 09/21/2014 Care Plan: Referral Order SNOMED-CT : [id number] Ordered 09/21/2014 Appointment: Selena Alvarez WPtel: [phone] [place] [address] [place] (S) New Patient 09/20/2014 Referral: Martinez Wren WPtel: [address] Referral Initiated Referral: Gavino Navarro Referral Initiated Referral: [facility] WPtel: [address] Referral Initiated Referral: Dr Arboleda Referral Completed Referral: Stephanie Silva WPtel: Referral Initiated Instructions Comment . Pt is here for a f [...] directed, and understands the consequences of over-medication. 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 [...] treatment for varicose veins with vein specialist. We will check PT/INR today Go directly [...] TO ADJUST IT. WE WILL CALL DR. DOMNIGO OFFICE AND SEE WHEN YOUR APPOINTMENT IS. [...] - Pt states that he went to [facility] for the abscess and they started [...] check INR on thursday probiotics - [facility] . Gastroenteritis - discussed need to stay [...] the patient's hospitalization during which time Dr. lAvarez formulated the assessment and plan for the [...] - continue with wound care management. . Rash - pt states t hat [...] lactobacillus, monitor output, call if not improving. will refer to Dr. Edgar jordan will [...]
[2019-08-20] MEDS ORDERED: ACETAMINOPHEN 500 MG TAB (TYLENOL) PO PRN (18:15)
[2019-08-20] MEDS ORDERED: IBUPROFEN 800 MG (MOTRIN) TAB PO ONE (18:15)
--- NOTE | 2019-08-20 18:15 | ED Dyspnea ---
General Stated Complaint: SOA / FEVER Source of Information: Patient, EMS Exam Limitations: No Limitations History of Present Illness Date Seen by Provider: Aug 20, 2019 Time Seen by Provider: 18:13 Initial Comments to ER by EMS from home with reports ofcough shortness of breath and fever for 3 days. Fever per EMS was up to 103 in the ambulance. Recently released from [facility] for arterial occlusion right leg. Has persistent pain around the puncture site in the right groin as well as a bit of erythema. No chest pain. Oxygen saturation was 89% room air and he typically does not wear oxygen. He was very wheezy and received a DuoNeb in route to the hospital. Timing/Duration: Other (3 days) Severity: Moderate Associated Symptoms: Cough, Fever, Wheezing Allergies and Home Medications Allergies Coded Allergies: morphine (Verified Allergy, Unknown, 09/01/16) Home Medications Allopurinol 100 Mg Tablet, 100 MG PO DAILY, (Reported) Aspirin 81 Mg Tabec, 81 MG PO DAILY, (Reported) Carvedilol 6.25 Mg Tablet, 6.25 MG PO BID, (Reported) HOLD FOR SBP<110 Cephalexin 500 Mg Capsule, 500 MG PO TID Prescribed by: RAISSA OLSON on 09/14/16 020 Docusate Sodium 100 Mg Capsule, 100 MG PO Mo, (Reported) Famotidine 20 Mg Tablet, 20 MG PO BID Prescribed by: RAISSA OLSON on 09/14/16 0205 Gabapentin 300 Mg Capsule, 300 MG PO TID, (Reported) Hydrocodone Bit/Acetaminophen 1 Each Tablet, 1 TAB PO Q6H PRN for PAIN-MODERATE, (Reported) Lactobacillus Acidophilus 1 Each Capsule, 1 EACH PO TID Prescribed by: OTTO ALVAREZ on 09/04/16 0924 Lisinopril 5 Mg Tablet, 5 MG PO 1700, (Reported) Magnesium Oxide 400 Mg Tablet, 400 MG PO BID, (Reported) Multivitamin 1 Each Tablet, 1 TAB PO DAILY, (Reported) Pantoprazole Sodium 40 Mg Tablet.dr, 40 MG PO DAILY, (Reported) Warfarin Sodium 2 Mg Tablet, 2 MG PO SuSa@1200, (Reported) Warfarin Sodium 2 Mg Tablet, 4 MG PO MoTuWeThFr@1200 HOLD UNTIL 09/07/16 - RESTART ROUTINE COUMADIN ON 09/07/16 Prescribed by: OTTO ALVAREZ on 09/04/16 0924 Patient Home Medication List Home Medication List Reviewed: Yes Review of Systems Review of Systems Constitutional: see HPI, chills, fever EENTM: see HPI Respiratory: see HPI, cough, short of breath, wheezing Genitourinary: no symptoms reported Musculoskeletal: no symptoms reported Skin: see HPI Psychiatric/Neurological: No Symptoms Reported Endocrine: No Symptoms Reported Past Smfonoe-Hugsvi-Jwrogb Hx Patient Social History Alcohol Beverage of Choice: Whiskey Drug of Choice: [place] Type Used: Cigarettes Former Smoker, Quit: Mar 09, 2015 2nd Hand Smoke Exposure: Yes Recent Hopitalizations: No Immunizations Up To Date Tetanus Booster (TDap): Less than 5yrs PED Vaccines UTD: Yes Seasonal Allergies Seasonal Allergies: Yes Past Medical History Surgeries: Yes (CABG,VALVE REPLACED,PLATE IN LEG,VASECTOMY,AKA) CABG, Coronary Stent, Open Heart Surgery, Valve Replacement, Vascular Surgery Respiratory: Yes COPD Currently Using CPAP: No Currently Using BIPAP: No Cardiac: Yes Chronic Edema/Swelling, Coronary Artery Disease, High Cholesterol, Hypertension, Peripheral Vascular, Valvular Heart Disease Neurological: Yes Neuropathy Reproductive Disorders: No Sexually Transmitted Disease: No HIV/AIDS: No Genitourinary: No Gastrointestinal: Yes Diverticulosis Musculoskeletal: Yes (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 6.0oz. 68.997191py; 35.70 BMI Method:Stated General Appearance: No Apparent Distress, WD/WN, Other (wheezing, appears chronically ill and very poor state of health per baseline. Left wyqyn-lcp-fdtz amputation. With 3l O2 he is at 94%. bp 102/73. hr 80s. ) Neck: Full Range of Motion, Normal Inspection Respiratory: No Respiratory Distress, Decreased Breath Sounds, Wheezing Cardiovascular: Regular Rate, Rhythm Gastrointestinal: Normal Bowel Sounds, Non Tender, Soft Extremity: Other (No palpable posterior tibial pulse but there is dopplerable blood flow noted. The foot is warm. There is mild erythema over the puncture site to the right anterior groin. There is also some erythema to the inguinal folds consistent with intertrigo.he has a left umsbb-uek-gnun amputee) Neurologic/Psychiatric: Alert, Oriented x3 Skin: Normal Color, Warm/Dry Focused Exam Lactate Level 08/20/19 18:20: Lactic Acid Level 1.21 Lactic Acid Level Laboratory Tests Test 08/20/19 18:20 Lactic Acid Level 1.21 MMOL/L (0.50-2.00) Progress/Results/Core Measures Results/Orders Lab Results Laboratory Tests Test 08/20/19 18:20 08/20/19 18:25 08/20/19 18:45 Range/Units White Blood Count 20.2 H 4.3-11.0 10^3/uL Red Blood Count 3.17 L 4.35-5.85 10^6/uL Hemoglobin 9.5 L 13.3-17.7 G/DL Hematocrit 29 L 40-54 % Mean Corpuscular Volume 90 80-99 FL Mean Corpuscular Hemoglobin 30 25-34 PG Mean Corpuscular Hemoglobin Concent 33 32-36 G/DL Red Cell Distribution Width 14.4 10.0-14.5 % Platelet Count 163 130-400 10^3/uL Mean Platelet Volume 11.3 H 7.4-10.4 FL Neutrophils (%) (Auto) 87 H 42-75 % Lymphocytes (%) (Auto) 6 L 12-44 % Monocytes (%) (Auto) 7 0-12 % Eosinophils (%) (Auto) 0 0-10 % Basophils (%) (Auto) 0 0-10 % Neutrophils # (Auto) 17.6 H 1.8-7.8 X 10^3 Lymphocytes # (Auto) 1.3 1.0-4.0 X 10^3 Monocytes # (Auto) 1.4 H 0.0-1.0 X 10^3 Eosinophils # (Auto) 0.0 0.0-0.3 10^3/uL Basophils # (Auto) 0.0 0.0-0.1 10^3/uL Neutrophils % (Manual) 88 % Lymphocytes % (Manual) 7 % Monocytes % (Manual) 2 % Eosinophils % (Manual) 0 % Basophils % (Manual) 0 % Band Neutrophils 2 % Reactive Lymphocytes 1 % Hypochromasia SLIGHT Poikilocytosis SLIGHT Anisocytosis SLIGHT Elliptocytes SLIGHT Prothrombin Time 43.3 H 12.2-14.7 SEC INR Comment 4.3 H 0.8-1.4 Activated Partial Thromboplast Time 63 H 24-35 SEC Sodium Level 135 135-145 MMOL/L Potassium Level 4.6 3.6-5.0 MMOL/L Chloride Level 103 98-107 MMOL/L Carbon Dioxide Level 21 21-32 MMOL/L Anion Gap 11 5-14 MMOL/L Blood Urea Nitrogen 35 H 7-18 MG/DL Creatinine 2.47 H 0.60-1.30 MG/DL Estimat Glomerular Filtration Rate 26 BUN/Creatinine Ratio 14 Glucose Level 99 70-105 MG/DL Lactic Acid Level 1.21 0.50-2.00 MMOL/L Calcium Level 8.5 8.5-10.1 MG/DL Corrected Calcium 9.2 8.5-10.1 MG/DL Total Bilirubin 0.5 0.1-1.0 MG/DL Aspartate Amino Transf (AST/SGOT) 39 H 5-34 U/L Alanine Aminotransferase (ALT/SGPT) 14 0-55 U/L Alkaline Phosphatase 75 40-136 U/L Total Protein 6.4 6.4-8.2 GM/DL Albumin 3.1 L 3.2-4.5 GM/DL Procalcitonin 2.70 H <0.10 NG/ML Blood Gas Puncture Site R RAD Blood Gas Patient Temperature 101.4 Arterial Blood pH 7.40 7.37-7.43 Arterial Blood Partial Pressure CO2 41 35-45 MMHG Arterial Blood Partial Pressure O2 109 H 79-93 MMHG Arterial Blood HCO3 25 23-27 MMOL/L Arterial Blood Total CO2 25.6 21.0-31.0 MMOL/L Arterial Blood Oxygen Saturation 98 94-100 % Arterial Blood Base Excess 0.5 -2.5-2.5 MMOL/L Rick Test YES-POS Blood Gas Ventilator Setting NO Blood Gas Inspired Oxygen 3L Urine Color YELLOW Urine Clarity CLEAR Urine pH 6.0 5-9 Urine Specific Alexis 1.015 L 1.016-1.022 Urine Protein 1+ H NEGATIVE Urine Glucose (UA) NEGATIVE NEGATIVE Urine Ketones NEGATIVE NEGATIVE Urine Nitrite NEGATIVE NEGATIVE Urine Bilirubin NEGATIVE NEGATIVE Urine Urobilinogen 0.2 < = 1.0 MG/DL Urine Leukocyte Esterase NEGATIVE NEGATIVE Urine RBC (Auto) 2+ H NEGATIVE Urine RBC NONE /HPF Urine WBC 0-2 /HPF Urine Squamous Epithelial Cells RARE /HPF Urine Crystals NONE /LPF Urine Bacteria TRACE /HPF Urine Casts PRESENT /LPF Urine Hyaline Casts 0-2 H /LPF Urine Granular Casts 2-5 H /LPF Urine Mucus SMALL H /LPF Urine Culture Indicated CULTURE PENDING Micro Results Microbiology 08/20/19 Influenza Types A,B Antigen (SILVIA) - Final, Complete My Orders Orders - NAA CALDWELL APRN Cbc With Automated Diff (08/20/19 18:10) Comprehensive Metabolic Panel (08/20/19 18:10) Blood Culture (08/20/19 18:10) Lactic Acid Analyzer (08/20/19 18:10) Sputum Culture (08/20/19 18:10) Urinalysis (08/20/19 18:10) Urine Culture (08/20/19 18:10) Protime With Inr (08/20/19 18:10) Partial Thromboplastin Time (08/20/19 18:10) Chest 1 View, Ap/Pa Only (08/20/19 18:10) Acetaminophen Tablet (Tylenol Tablet) (08/20/19 18:15) Ed Iv/Invasive Line Start (08/20/19 18:10) Vital Signs Adult Sepsis Patie Q15M (08/20/19 18:10) O2 (08/20/19 18:10) Remove Rings In Anticipation O (08/20/19 18:10) Influenza A And B Antigens (08/20/19 18:10) Ns Iv 1000 Ml (Sodium Chloride 0.9%) (08/20/19 18:10) Coronavirus Sars-Cov-2 So 2018 (08/20/19 18:10) Ibuprofen Tablet (Motrin Tablet) (08/20/19 18:15) Ibuprofen Tablet (Motrin Tablet) (08/20/19 18:28) Arterial Blood Gas (08/20/19 18:29) Procalcitonin (Pct) (08/20/19 18:30) Manual Differential (08/20/19 18:20) Piperacillin Sodium/Tazobactam (Zosyn Vi (08/20/19 19:30) Phytonadione (Adult) Injection (Aquameph (08/20/19 19:30) Ns Iv 500 Ml (Sodium Chloride 0.9%) (08/20/19 19:45) Phytonadione (Adult) Injection (Aquameph (08/20/19 19:45) Norepinephrine 4 Mg/250 Ml (Norepinephri (08/20/19 20:00) Phytonadione (Adult) Injection (Aquameph (08/20/19 20:15) Medications Given in ED Current Medications Medications Dose Ordered Sig/Celestine Route Start Time Stop Time Status Last Admin Dose Admin Acetaminophen 1,000 mg ONCE PRN PO 08/20/19 18:15 08/20/19 18:58 DC 08/20/19 18:56 1,000 MG Ibuprofen 800 mg ONCE ONCE PO 08/20/19 18:15 08/20/19 18:16 DC 08/20/19 18:56 800 MG Piperacillin Sod/ Tazobactam Sod 4.5 gm/Sodium Chloride 100 ml @ 200 mls/hr ONCE ONCE IV 08/20/19 19:30 08/20/19 20:00 DC 08/20/19 20:07 200 MLS/HR Vital Signs/I&O 08/20/19 08/20/19 08/20/19 08/20/19 18:20 18:30 18:44 18:50 Temp 38.6 Pulse 86 84 83 Resp 18 22 23 B/P (MAP) 102/69 (80) 108/54 (72) 104/68 (80) Pulse Ox 96 97 96 97 O2 Delivery Nasal Cannula Nasal Cannula Nasal Cannula Nasal Cannula O2 Flow Rate 3.00 3.00 3.00 3.00 08/20/19 18:56 Temp 38.6 Diagnostic Imaging Diagonstic Imaging: Xray Plain Films/CT/US/NM/MRI: chest Comments NAME: YVES CHENG [facility] REC#: [id number] PT STATUS: REG ER : 1945 PHYSICIAN: NAA CALDWELL APRN ADMIT DATE: 08/20/19/ER Draft Date of Exam:08/20/19 CHEST 1 VIEW, AP/PA ONLY INDICATION: Shortness of air. Fever. COMPARISON: 09/13/2016 FINDINGS: Single frontal view of the chest demonstrates mild cardiomegaly. Pulmonary vasculature is within normal limits. Sternotomy wires are noted. The lungs are well aerated and clear. No large pleural effusion or pneumothorax is seen. The visualized osseous structures show no acute abnormalities. IMPRESSION: 1. Cardiomegaly, but no evidence of failure or focal infiltrate. Dictated on workstation # [id number] Dict: 08/20/19 1848 Trans: 08/20/19 1851 [facility] [id number] Interpreted by: TRAN RIVAS MD Electronically signed by: Departure Communication (Admissions) Time/Spoke to Admitting Phy: 19:[address] Alvarez, will admit the patient, ICU. he is receiving a 1 L fluid bolus which was started by EMS. I discussed CODE STATUS with him, he does want CPR if necessary but he does not want to be intubated 1920-BP 87 systolic, 2nd liter of IVF infusing. 1931-blood pressure still in the 80s. I will put A central line into the left femoral vein since this area would be more compressible than his neck. His INR is supratherapeutic at 4.3. I will give 2.5 mg of vitamin K IV. 1938-upon examining the left groin prior to central line placement there is a lot of maceration, whitish adherent material wiped off from the area. The overlying skin infection as contraindication to central line placement at this site. I then recommended putting it in his internal jugular in his neck. He refuses that. We'll start a second peripheral IV and a large antecubital vein and use pressors peripherally if this second liter of fluids doesn't help. 1999-spoke with Dr. Deras, he doesn't do subclavian central lines. I spoke with Dr. Ascencio, he agrees toplace 1, however we need to reverse the supratherapeutic INR with some vitamin K. Pt agrees to have a subclavian central line. Will start levophed peripherally into RIGHT AC vein 18guage IV for now, pressure still 83/54 after 2 liter bolus. 2031-Levophed at 0.1mcg/kg/min has bp at 102/47 (MAP 65). Impression Primary Impression: Severe sepsis Additional Impressions: suspected pneumonia Septic shock Disposition: ADMITTED INPATIENT Condition: Critical Admissions Decision to Admit Reason: Admit from ER (General) Decision to Admit/Date: Aug 20, 2019 Time/Decision to Admit Time: 18:22 Departure-Patient Inst. Referrals: OTTO ALVAREZ MD (PCP/Family) Primary Care Physician NAA CALDWELL APRN Aug 20, 2019 18:15
--- OUTSIDE RECORDS SUMMARY | 2019-08-20 18:15 | XMS REPORT | CCD ---
Author Author Bony Alvarez Organization Selena Alvarez MD, [facility] Address [address] [place] [address] Phone Care Team Providers Care Branch Lead Name Role Phone PP Unavailable CCM Unavailable Summary Purpose Interface Exchange Insurance Providers Payer name Policy type / Coverage type Covered republican ID Effective Begin Date Effective End Date [facility] Commercial Insurance [id number] 2017 Unknown Family history Father Diagnosis Age At Onset Hyperlipidemia Unknown Coronary Artery Disease Unknown Stroke Unknown Cancer Unknown Congestive heart failure Unknown Mother Diagnosis Age At Onset Hypertension Unknown kidney disease Unknown Cancer Unknown Stroke Unknown Hyperlipidemia Unknown Coronary Artery Disease Unknown Congestive heart failure Unknown Social History Social History Element Codes Description Effective Dates Tobacco history SNOMED CT: 162225501809042 Current some days smoker 09/21/2014 Allergies, Adverse [...] V67.59 ICD-10: Z09 Active 10/10/2015 Unknown Other prison (cur rent) drug therapy ICD-9: V58.69 ICD-10: [...] disorder ICD-9: 300.00 ICD-10: F41.1 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/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-9: V58.61 [...] ICD-9: V67.59 ICD-10: Z09 10/10/2015 Active Other prison (cur rent) drug therapy ICD-9: V58.69 ICD-10: [...] 7.5 mg-a cetaminophen 325 mg tablet RxNorm: 308781 1 Tablet(s) PO QID as needed 08/18/2018 09/16/2018 Active Lexapro 10 mg tablet RxNorm: 947144 TAKE ONE TABLET BY MOUTH AT BEDTIME 08/03/2018 06/28/2019 Ac tive hydrocodone 7.5 mg-a cetaminophen 325 mg tablet RxNorm: 498515 1 Tablet(s) PO QID as needed 07/15/2018 08/13/2018 Inactive Keflex 500 mg capsule RxNorm: 300659 1 Capsule(s) PO TID 06/11/2018 06/17/2018 Inactive Pepcid 20 mg tablet RxNorm: 144650 TAKE ONE TABLET BY MOUTH TWICE A DAY 05/25/2018 09/21/2018 Ac tive hydrocodone 7.5 mg-a cetaminophen 325 mg tablet RxNorm: 351094 1 Tablet(s) PO QID as needed 05/19/2018 06/17/2018 Inactive hydrocodone 7.5 mg-a cetaminophen 325 mg tablet RxNorm: 982148 1 Tablet(s) PO QID as needed 04/19/2018 05/18/2018 Inactive allopurinol 100 mg t ablet RxNorm: 687430 TAKE ONE TABLET BY MO UTH DAILY 04/06/2018 03/01/2019 Ac tive hydrocodone 7.5 mg-a cetaminophen 325 mg tablet RxNorm: 770913 1 Tablet(s) PO QID as needed 03/11/2018 04/09/2018 Inactive potassium chloride E R 20 mEq tablet,extended release RxNorm: 539389 Tablet(s) TAKE ONE TABLET BY MOUTH DAILY WHEN TAKING FUROSEMIDE NEEDED 03/05/2018 08/31/2018 Active gabapentin 300 mg ca psule RxNorm: 589125 TAKE ONE CAPSULE BY M OUTH THREE TIMES A DAY 03/04/2018 02/26/2019 Ac tive hydrocodone 7.5 mg-a cetaminophen 325 mg tablet RxNorm: 358289 1 Tablet(s) PO QID as needed 02/18/2018 03/10/2018 Inactive hydrocodone 7.5 mg-a cetaminophen 325 mg tablet RxNorm: 305502 1 Tablet(s) PO QID as needed 01/19/2018 02/17/2018 Inactive hydrocodone 7.5 mg-a cetaminophen 325 mg tablet RxNorm: 366619 1 Tablet(s) PO QID as needed 12/16/2017 01/14/2018 Inactive Pepcid 20 mg tablet RxNorm: 123632 Tablet(s) TAKE ONE TABLET BY MOUTH TWICE A DAY 12/08/2017 05/06/2018 Inactive hydrocodone 7.5 mg-a cetaminophen 325 mg tablet RxNorm: 821640 1 Tablet(s) PO QID as needed 11/18/2017 12/15/2017 Inactive gabapentin 300 mg ca psule RxNorm: 235345 Capsule(s) TAKE ONE C APSULE BY MOUTH THREE TIMES A DAY 11/11/2017 03/03/2018 Inactive gabapentin 300 mg ca psule RxNorm: 075838 TAKE ONE CAPSULE BY M OUTH THREE TIMES A DAY 11/10/2017 11/10/2017 Inactive hydrocodone 7.5 mg-a cetaminophen 325 mg tablet RxNorm: 711759 1 Tablet(s) PO QID as needed 10/19/2017 11/17/2017 Inactive hydrocodone 7.5 mg-a cetaminophen 325 mg tablet RxNorm: 146232 1 Tablet(s) PO QID as needed 09/16/2017 10/15/2017 Inactive doxycycline hyclate 100 mg capsule RxNorm: 0983679 1 Capsule(s) PO BID 08/28/2017 09/06/2017 In active hydrocodone 7.5 mg-a cetaminophen 325 mg tablet RxNorm: 608846 1 Tablet(s) PO QID as needed 08/21/2017 09/15/2017 Inactive Lexapro 10 mg tablet RxNorm: 094654 TAKE ONE TABLET BY MOUTH AT BEDTIME 08/02/2017 07/27/2018 In active Zyrtec 10 mg tablet RxNorm: 2165336 1 Tablet(s) PO daily 07/20/2017 11/16/2017 Inactive hydrocodone 7.5 mg-a cetaminophen 325 mg tablet RxNorm: 819810 1 Tablet(s) PO QID as needed 07/20/2017 09/15/2017 Inactive furosemide 40 mg tablet RxNorm: 019766 Tablet(s) TAKE ONE TABLET BY MOUTH DAILY NEEDED FOR SWELLING 07/08/2017 01/03/2018 Inactive Pepcid 20 mg tablet RxNorm: 883152 TAKE ONE TABLET BY MOUTH TWICE A DAY 06/29/2017 11/25/2017 In active gabapentin 300 mg ca psule RxNorm: 878787 TAKE ONE CAPSULE BY M OUTH THREE TIMES A DAY 06/29/2017 10/26/2017 Inactive hydrocodone 7.5 mg-a cetaminophen 325 mg tablet RxNorm: 129604 1 Tablet(s) PO QID as needed 06/18/2017 07/17/2017 Inactive hydrocodone 7.5 mg-a cetaminophen 325 mg tablet RxNorm: 221669 1 Tablet(s) PO QID as needed 05/18/2017 06/16/2017 Inactive hydrocodone 7.5 mg-a cetaminophen 325 mg tablet RxNorm: 302770 1 Tablet(s) PO QID as needed 04/21/2017 05/17/2017 Inactive hyoscyamine 0.125 mg sublingual tablet RxNorm: 2346301 1 Tablet(s) SL TID a s needed 04/21/2017 04/25/2017 In active Lexapro 10 mg tablet RxNorm: 233757 1 Tablet(s) PO QHS 04/21/2017 07/19/2017 Inactive Flagyl 500 mg tablet RxNorm: 002253 1 Tablet(s) PO TID 04/07/2017 04/16/2017 Inactive Lexapro 10 mg tablet RxNorm: 973792 1 Tablet(s) PO QHS 04/07/2017 04/20/2017 Inactive hydrocodone 7.5 mg-a cetaminophen 325 mg tablet RxNorm: 454551 1 Tablet(s) PO QID as needed 03/24/2017 04/20/2017 Inactive allopurinol 100 mg t ablet RxNorm: 193902 TAKE ONE TABLET BY MO [facility] DAILY 03/10/2017 03/04/2018 In active hydrocodone 7.5 mg-a cetaminophen 325 mg tablet RxNorm: 601609 1 Tablet(s) PO QID as needed 02/11/2017 03/12/2017 Inactive gabapentin 300 mg ca psule RxNorm: 206305 TAKE ONE CAPSULE BY M [facility] THREE TIMES A DAY 02/02/2017 06/28/2017 Inactive Zofran ODT 4 mg disi ntegrating tablet RxNorm: 857112 1 Tablet(s) PO QID as needed nausea and vomitting 01/27/2017 No Stop Date Active hydrocodone 7.5 mg-a cetaminophen 325 mg tablet RxNorm: 368884 1 Tablet(s) PO QID as needed 01/13/2017 02/10/2017 Inactive potassium chloride E R 20 mEq tablet,extended release RxNorm: 446142 TAKE ONE TABLET BY MOUTH DAILY WHEN TAKING FUROSEMIDE NEEDED 01/12/2017 07/10/2017 Inactive furosemide 40 mg tablet RxNorm: 570134 TAKE ONE TABLET BY MOUTH DAILY NEEDED FOR SWELLING 01/12/2017 07/09/2017 Inactive promethazine 25 mg t ablet RxNorm: 911507 TAKE ONE TABLET BY MO [facility] THREE TIMES A DAY NEEDED FOR NAUSEA AND VOMITING 01/12/2017 01/31/2017 Inactive promethazine 25 mg t ablet RxNorm: 442058 1 Tablet(s) PO TID as needed nausea and vomitting 01/06/2017 01/11/2017 Inactive Lomotil 2.5 mg-0.025 mg tablet RxNorm: 5801991 1-2 Tablet(s) PO BID as needed diarrhea 01/06/2017 01/05/2017 Inactive Lomotil 2.5 mg-0.025 mg tablet RxNorm: 0825897 1-2 Tablet(s) PO BID as needed diarrhea 01/06/2017 01/07/2017 Inactive Pepcid 20 mg tablet RxNorm: 370635 1 Tablet(s) PO BID 12/19/2016 06/16/2017 Inactive Pepcid 20 mg tablet RxNorm: 417194 1 Tablet(s) PO BID 12/16/2016 12/18/2016 Inactive hydrocodone 7.5 mg-a cetaminophen 325 mg tablet RxNorm: 196923 1 Tablet(s) PO QID as needed 12/16/2016 01/12/2017 Inactive hydrocodone 7.5 mg-a cetaminophen 325 mg tablet RxNorm: 943617 1 Tablet(s) PO QID as needed 11/18/2016 12/15/2016 Inactive allopurinol 100 mg t ablet RxNorm: 333779 TAKE ONE TABLET BY [facility] DAILY 10/29/2016 02/25/2017 In active hydrocodone 7.5 mg-a cetaminophen 325 mg tablet RxNorm: 032749 1 Tablet(s) PO QID as needed 10/15/2016 11/13/2016 Inactive nystatin 100,000 uni t/gram topical cream RxNorm: 945844 1 Gram(s) TOP QID 10/15/2016 11/25/2016 In active nystatin 100,000 uni t/gram topical powder RxNorm: 241960 1 Gram(s) TOP TID TO GROIN OR AFFECTED AREA 10/14/2016 No Stop Date Active hydrocodone 7.5 mg-a cetaminophen 325 mg tablet RxNorm: 278675 1 Tablet(s) PO QID as needed 09/17/2016 10/14/2016 Inactive furosemide 40 mg tablet RxNorm: 799995 1 Tablet(s) PO daily as needed swelling 09/17/2016 01/11/2017 In active potassium chloride E R 20 mEq tablet,extended release RxNorm: 715640 1 Tablet(s) PO daily as needed take when taking a lasix pill 09/17/2016 01/11/2017 Inactive Levaquin 500 mg tablet RxNorm: 812505 1 Tablet(s) PO daily 09/17/2016 09/21/2016 Inactive hydrocodone 7.5 mg-a cetaminophen 325 mg tablet RxNorm: 812141 1 Tablet(s) PO QID as needed 08/14/2016 09/12/2016 Inactive cyclobenzaprine 5 mg tablet RxNorm: 426832 1 Tablet(s) PO TID as needed 07/25/2016 07/29/2016 In active cyclobenzaprine 5 mg tablet RxNorm: 464594 1 Tablet(s) PO TID as needed 07/25/2016 07/24/2016 In active hydrocodone 7.5 mg-a cetaminophen 325 mg tablet RxNorm: 247355 1 Tablet(s) PO QID as needed 07/21/2016 08/13/2016 Inactive warfarin 1 mg tablet RxNorm: 741112 TAKE ONE TABLET BY MOUTH EVERY EVENING 06/26/2016 08/04/2016 In active hydrocodone 7.5 mg-a cetaminophen 325 mg tablet RxNorm: 537543 1 Tablet(s) PO QID as needed 06/24/2016 07/20/2016 Inactive hydrocodone 5 mg-yanira taminophen 325 mg tablet RxNorm: 870635 1 Tablet(s) PO Q6 as needed for pain 06/09/2016 06/10/2016 Inactive warfarin 1 mg tablet RxNorm: 055384 TAKE ONE TABLET BY MOUTH EVERY EVENING 06/02/2016 06/21/2016 In active allopurinol 100 mg t ablet RxNorm: 212920 TAKE ONE TABLET BY MO [facility] DAILY 05/21/2016 10/17/2016 In active hydrocodone 7.5 mg-a cetaminophen 325 mg tablet RxNorm: 334717 1 Tablet(s) PO QID as needed 05/09/2016 06/07/2016 Inactive gabapentin 300 mg ca psule RxNorm: 248905 Capsule(s) TAKE ONE C APSULE BY MOUTH THREE TIMES A DAY 04/25/2016 11/09/2017 Inactive promethazine 25 mg t ablet RxNorm: 973033 TAKE ONE TABLET BY MO U[facility] THREE TIMES A DAY NEEDED 2016 05/01/2016 Inactive warfarin 1 mg tablet RxNorm: 188244 TAKE ONE TABLET BY MOUTH EVERY EVENING 2016 05/31/2016 In active promethazine 25 mg t ablet RxNorm: 405249 1 Tablet(s) PO TID as needed 04/16/2016 04/21/2016 In active warfarin 1 mg tablet RxNorm: 710277 TAKE ONE TABLET BY MOUTH EVERY EVENING 02/13/2016 04/12/2016 In active magnesium oxide 400 mg tablet RxNorm: 566385 TAKE ONE TABLET BY MO UTH TWICE A DAY 02/07/2016 01/01/2017 In active hydrocodone 5 mg-yanira taminophen 325 mg tablet RxNorm: 921976 1 Tablet(s) PO Q6 as needed for pain 01/21/2016 02/19/2016 Inactive warfarin 1 mg tablet RxNorm: 808673 TAKE ONE TABLET BY MOUTH EVERY EVENING 01/17/2016 02/05/2016 In active gabapentin 300 mg ca psule RxNorm: 826200 Capsule(s) TAKE ONE C APSULE BY MOUTH THREE TIMES A DAY 01/11/2016 04/24/2016 Inactive prednisone 10 mg tablet RxNorm: 546530 Tablet(s) PO UD 01/10/2016 03/08/2018 Inactive 60mg x2 days, then 50mg x2 days, then 40mg x2 days, 30mg x2 days, 20mg x2 days, 10mg x2days, 5mg every other day x 2 doses Kenalog 40 mg/mL cassius pension for injection RxNorm: 8833945 Milliliter(s) Inj 01/07/2016 01/07/2016 In active warfarin 1 mg tablet RxNorm: 899859 TAKE ONE TABLET BY MOUTH EVERY EVENING 01/01/2016 01/16/2016 In active hydrocodone 5 mg-yanira taminophen 325 mg tablet RxNorm: 664922 1 Tablet(s) PO Q6 as needed for pain 01/01/2016 01/15/2016 Inactive gabapentin 300 mg ca psule RxNorm: 781972 TAKE ONE CAPSULE BY M OUTH THREE TIMES A DAY 12/12/2015 01/10/2016 Inactive warfarin 5 mg tablet RxNorm: 761228 1 Tablet(s) PO daily 12/05/2015 No Stop Date Active warfarin 1 mg tablet RxNorm: 974325 TAKE ONE TABLET BY MOUTH EVERY EVENING 11/13/2015 12/22/2015 In active hydrocodone 5 mg-yanira taminophen 325 mg tablet RxNorm: 395850 1 Tablet(s) PO Q6 as needed for pain 10/26/2015 11/09/2015 Inactive allopurinol 100 mg t ablet RxNorm: 061071 1 Tablet(s) PO daily TAKE ONE TABLET BY MOUTH DAILY 10/18/2015 04/14/2016 Inactive hydrocodone 5 mg-yanira taminophen 325 mg tablet RxNorm: 918800 1 Tablet(s) PO Q6 as needed for pain 09/26/2015 10/10/2015 Inactive gabapentin 300 mg ca psule RxNorm: 741935 TAKE ONE CAPSULE BY M OUTH THREE TIMES A DAY 09/14/2015 12/11/2015 Inactive warfarin 1 mg tablet RxNorm: 427115 1 Tablet(s) PO QPM 09/14/2015 11/12/2015 Inactive hydrocodone 5 mg-yanira taminophen 325 mg tablet RxNorm: 739254 1 Tablet(s) PO Q6 as needed for pain 09/12/2015 09/25/2015 Inactive hydrocodone 5 mg-yanira taminophen 325 mg tablet RxNorm: 137010 1 Tablet(s) PO Q6 as needed for pain 08/22/2015 09/05/2015 Inactive Bactrim DS 800 mg-16 0 mg tablet RxNorm: 650324 1 Tablet(s) PO BID 08/20/2015 09/02/2015 Inactive magnesium oxide 400 mg tablet RxNorm: 434752 TAKE ONE TABLET BY MO UTH TWICE A DAY 01/20/2015 01/14/2016 In active gabapentin 300 mg ca psule RxNorm: 155371 TAKE ONE CAPSULE BY M OUTH THREE TIMES A DAY 01/20/2015 05/19/2015 Inactive magnesium oxide 400 mg tablet RxNorm: 375940 1 Tablet(s) PO BID 01/17/2015 05/16/2015 Inactive gabapentin 300 mg ca psule RxNorm: 146422 1 Capsule(s) PO TID 01/17/2015 05/16/2015 Inactive allopurinol 100 mg t ablet RxNorm: 726060 TAKE ONE TABLET BY MO UTH DAILY 10/18/2014 10/12/2015 In active Kenalog 40 mg/mL cassius pension for injection RxNorm: 0262372 1 Milliliter(s) Inj 09/21/2014 09/21/2014 In active allopurinol 100 mg t ablet RxNorm: 923697 1 Tablet(s) PO daily 09/21/2014 10/17/2014 Inactive gabapentin 300 mg ca psule RxNorm: 191666 1 Capsule(s) PO TID 09/12/2014 01/09/2015 Inactive gabapentin 300 mg ca psule RxNorm: 182697 1 Capsule(s) PO TID 09/12/2014 09/11/2014 Inactive magnesium oxide 400 mg tablet RxNorm: 337508 1 Tablet(s) PO BID 09/12/2014 01/09/2015 Inactive magnesium oxide 400 mg tablet RxNorm: 535753 1 Tablet(s) PO BID 09/12/2014 09/11/2014 Inactive lisinopril 5 mg tablet RxNorm: 026106 1 Tablet(s) PO daily No Start Date Active atorvastatin oral RxNorm: 82527 oral No Start Date Active Coreg 6.25 mg tablet RxNorm: 902169 1 Tablet(s) PO BID No Start Date Active Combivent Respimat 2 0 mcg-100 mcg/actuation solution for inhalation RxNorm: 9016115 1 Puff(s) INH as needed No Start Date Active Ventolin Refill 90 m cg/actuation aerosol inhaler RxNorm: 589648 2 INH as needed No Start Date Active Centrum Silver Women oral RxNorm: [address] art Date Active aspirin 81 mg capsul e,delayed release RxNorm: 633071 1 Capsule(s) PO daily No Start Date Active nystatin 100,000 uni t/gram topical powder RxNorm: 522952 1 Gram(s) TOP TID No Start Date 10/13/2016 Inactive warfarin 1 mg tablet RxNorm: 957495 oral No Start Date 09/13/2015 Inactive Pepcid 20 mg tablet RxNorm: 947033 1 Tablet(s) PO BID No Start Date 12/15/2016 Inactive Protonix 40 mg table t,delayed release RxNorm: 431349 1 Tablet(s) PO daily No Start Date 09/16/2016 Inactive warfarin 5 mg tablet RxNorm: 440150 1 Tablet(s) PO daily 1.5 tabs on Thu No Start Date 12/04/2015 Inactive minocycline 50 mg ca psule RxNorm: 406449 1 Capsule(s) PO BID o rdered by Dr. Saravia No Start Date 03/08/2018 Inactive furosemide 40 mg tablet RxNorm: 462904 1 Tablet(s) PO daily No Start Date 09/16/2016 Inactive Medication Administered Medication Codes Instruc tions Start Date Status Kenalog 40 mg/mL suspension for injection RxNorm: 0953253 Milliliter 01/07/2016 No longer Active Kenalog 40 mg/mL suspension for injection RxNorm: 8867922 1Milliliter 09/21/2014 N o longer Active Immunizations No Immunization data Assessments Condition Codes Effectiv e Dates Localized edema ICD-10: R60.0 ICD-9: 782.3 06/10/2018 Varicose veins of right lower extremity with pain ICD-10: I83.811 ICD-9: 454.8 06/10/2018 Chronic pain syndrome ICD-10: G89.4 ICD-9: 338.4 03/11/2018 [facility] (current) use of anticoagulants ICD-10: Z79.01 ICD-9: [...] neoplasm ICD-10: Z09 ICD-9: V67.59 10/11/2015 Other prison (current) drug therapy ICD-10: Z79.899 ICD-9: V58.69 [...] Item Item Code Result Date Comp Metabolic Ouz479 NA 136 mEq/L 03/11/2018 Comp Metabolic Lyd739 K 4.3 mEq/L 03/11/2018 Comp Metabolic Mdn391 CL 101 mEq/L 03/11/2018 Comp Metabolic Ahv957 CO2 27.0 mEq/L 03/11/2018 Comp Metabolic Qyq683 AN ION GAP 12 03/11/2018 Comp Metabolic Fbq648 GL UCOSE 87 mg/dL 03/11/2018 Comp Metabolic Jif664 Cr eat 1.0 mg/dL 03/11/2018 Comp Metabolic Spr270 eG FR 79 ml/min/1.73m2 03/11 Comp Metabolic Oeu174 BUN 12 mg/dL 03/11/2018 Comp Metabolic Dzj250 B/ C Ratio 12.1 Ratio 03/11/2018 Comp Metabolic Qfv299 CA LCIUM 8.9 mg/dL 03/11/2018 Comp Metabolic Mmu229 AL K PHOS 106 U/L 03/11/2018 Comp Metabolic Ppf510 T(SGOT) 16 U/L 03/11/2018 Comp Metabolic Yri443 AL T(SGPT) 11 U/L 03/11/2018 Comp Metabolic Bfi579 BI LI T 0.4 mg/dL 03/11/2018 Comp Metabolic Sdc416 AL BUMIN 3.8 g/dL 03/11/2018 Comp Metabolic Vmo185 TP RO 6.5 g/dL 03/11/2018 Comp Metabolic Ral584 GL OB 2.7 g/dL 03/11/2018 Comp Metabolic Nrp993 A/ G Ratio 1.4 Ratio 03/11/2018 Comp Metabolic Qtv581 Os mo 271 mOsmo 03/11/2018 Cbc With [...] 29.8 pg 03/11/2018 Cbc With Differential Ord2 [place]% 11.3 % 03/11/2018 Cbc With Differential Ord2 [...] 2.87 K/ul 03/11/2018 Cbc With Differential Ord2 [place] ABS# 1.1 K/ul 03/11/2018 Cbc With Differential Ord2 Eos ABS# 0.4 K/ul 03/11/2018 Cbc With Differential Ord2 Baso ABS# 0.0 K/ul 03/11/2018 Pt Bmf3213 PT 31.3 seconds 03/11/2018 Pt Vps1972 INR 3.1 03/11/2018 Pt Qff7844 Low Intensity - 1.5-2.0 03/11/2018 Pt Npm1356 Mod intensity - 2.0-3.0 03/11/2018 Pt Fdu8432 Hi intensity - 3.0-4.0 03/11/2018 Tsh Ord6 TSH (3rd IS) 2.01 uIU/mL 03/11/2018 Shiga Toxin 1 & 2 Eia Stool [id number] SHIGA TOXIN 1: NEGATIVE 04/12/2017 Shiga Toxin 1 & 2 Eia Stool [id number] SHIGA TOXIN 2: NEGATIVE 04/12/2017 Culture Stool [id number] STO OL CULTURE SEE NOTES 04/12/2017 Clostridium Diff Tox A/B Tbi715 Cdiff Negative 04/09/2017 Pt Gze1650 PT 64.8 seconds 01/10/2016 Pt Rwj7008 INR 8.6 01/10/2016 Pt Rcm1142 Low Intensity - 1.5-2.0 01/10/2016 Pt Hhx0555 Mod intensity - 2.0-3.0 01/10/2016 Pt Kwy6294 Hi intensity - 3.0-4.0 01/10/2016 Pt Not3804 PT 32.1 seconds 11/01/2014 Pt Byb1253 INR 3.2 11/01/2014 Pt Otn3571 Low Intensity - 1.5-2.0 11/01/2014 Pt Nis9331 Mod intensity - 2.0-3.0 11/01/2014 Pt Zrz2393 Hi intensity - 3.0-4.0 11/01/2014 Pt Wcq7737 PT 30.2 seconds 10/03/2014 Pt Xah8388 INR 3.0 10/03/2014 Pt Ire0361 Low Intensity - 1.5-2.0 10/03/2014 Pt Foo1989 Mod intensity - 2.0-3.0 10/03/2014 Pt Tcx6455 Hi intensity - 3.0-4.0 10/03/2014 D-Dimer D-DIMER 475 NG/ML 09/25/2014 D-Dimer COMMENT 09/25/2014 Magnesium Ord90 Mag 1.1 Result Verified By Repeat Analysis mg/dL 09/22/2014 Pt Osl1193 PT 32.0 seconds 09/22/2014 Pt Pud6578 INR 3.2 09/22/2014 Pt Msb1112 Low Intensity - 1.5-2.0 09/22/2014 Pt Aej9144 Mod intensity - 2.0-3.0 09/22/2014 Pt Acz8753 Hi intensity - 3.0-4.0 09/22/2014 Comp Metabolic Okd124 NA 137 mEq/L 09/22/2014 Comp Metabolic Yae464 K 4.2 mEq/L 09/22/2014 Comp Metabolic Ign734 CL 102 mEq/L 09/22/2014 Comp Metabolic Vdc698 CO2 25.0 mEq/L 09/22/2014 Comp Metabolic Fla646 AN ION GAP 14 09/22/2014 Comp Metabolic Rxq876 GL UCOSE 94 mg/dL 09/22/2014 Comp Metabolic Tng833 Cr eat 0.8 mg/dL 09/22/2014 Comp Metabolic Hdc892 eG FR 102 ml/min/1.73m2 09/06 Comp Metabolic Kui491 BUN 15 mg/dL 09/22/2014 Comp Metabolic Vbp266 B/ C Ratio 18.8 Ratio 09/22/2014 Comp Metabolic Auy780 CA LCIUM 9.4 mg/dL 09/22/2014 Comp Metabolic Zps568 AL K PHOS 65 U/L 09/22/2014 Comp Metabolic Sst867 T(SGOT) 15 U/L 09/22/2014 Comp Metabolic Pgw280 AL T(SGPT) 8 U/L 09/22/2014 Comp Metabolic Xfr120 BI LI T 0.4 mg/dL 09/22/2014 Comp Metabolic Tcx511 AL BUMIN 4.0 g/dL 09/22/2014 Comp Metabolic Tiv230 TP RO 6.8 g/dL 09/22/2014 Comp Metabolic Aoh723 GL OB 2.8 g/dL 09/22/2014 Comp Metabolic Ckc205 A/ G Ratio 1.4 Ratio 09/22/2014 Comp Metabolic Rmg050 Os mo 274 mOsmo 09/22/2014 C-Reactive Protein [...] No mental status change 03/11/2018 Psychiatric anxiety 05/2018 Psychiatric depression 0 03/11/2018 Constitutional No [...] Procedure Codes Date THER/PROPH/DIAG INJ SC/IM CPT-4: 06280 08/28/2017 ROCEPHIN, PER 250 MG CPT-4: J0696 08/28/2017 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 3-[address]: 097043013 CPT-4: G0436 01/27/2017 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 3-[address]: 558463096 CPT-4: G0436 11/25/2016 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 3-[address]: 629273538 CPT-4: G0436 10/15/2016 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 3-[address]: 062220655 CPT-4: G0436 09/17/2016 THER/PROPH/DIAG INJ SC/IM CPT-4: 75069 01/07/2016 TRIAMCINOLONE ACET I [place] NOS CPT-4: J3301 01/07/2016 TRIAMCINOLONE ACET I [place] NOS CPT-4: J3301 09/21/2014 THER/PROPH/DIAG INJ SC/IM CPT-4: 46700 09/21/2014 Vital Signs Date Vital 06/10/2018 Blood Pressure 1: 122/60 Code: 8480-6 BMI: 31.4 Code: 36628-2 Heart Rate 1: 75 bpm Height: 5'3" SpO2: 98% Weight: 177 lbs 03/11/2018 Blood Pressure 1: 134/82 Code: 8480-6 BMI: 32.8 Code: 39040-5 Heart Rate 1: 65 bpm Height: 5'3" SpO2: 96% Weight: 185 lbs 08/28/2017 Blood Pressure 1: 138/72 Code: 8480-6 Heart Rate 1: 80 bpm Height: SpO2: 98% Weight: 07/20/2017 Blood Pressure 1: 13476 Code: 8480-6 BMI: 29.6 Code: 14386-2 Heart Rate 1: 82 bpm Height: 5'3" [...] SpO2: 94% Weight: 04/16/2016 Blood Pressure 1: 13876 Code: 8480-6 Heart Rate 1: 67 bpm Height: 5'3" SpO2: 98% Temperature: 36.9 (C ) / 98.5 (F) Weight: 01/21/2016 Blood Pressure 1: 128/78 Code: 8480-6 BMI: 33.3 Code: 77638-4 Heart Rate 1: 72 bpm Height: 5'3" SpO2: 97% Weight: 188 lbs 01/10/2016 Blood Pressure 1: 132/76 Code: 8480-6 BMI: 33.1 Code: 64708-1 Heart Rate 1: 72 bpm Height: 5'3" SpO2: 97% Weight: 187 lbs 12/25/2015 Blood Pressure 1: 154/82 Code: 8480-6 BMI: 33.1 Code: 72213-8 Heart Rate 1: 72 bpm Height: 5'3" SpO2: 97% Weight: 187 lbs 10/11/2015 Blood Pressure 1: 110/62 Code: 8480-6 BMI: 34.7 Code: 23575-2 Heart Rate 1: 70 bpm Height: 5'3" SpO2: 93% Weight: 196 lbs 08/24/2015 Blood Pressure 1: 132/62 Code: 8480-6 BMI: 35.3 Code: 85120-3 Heart Rate 1: 62 bpm Height: 5'3" SpO2: 93% Weight: 199 lbs 08/20/2015 Blood Pressure 1: 140/68 Code: 8480-6 BMI: 35.3 Code: 19777-6 Heart Rate 1: 74 bpm Height: 5'3" SpO2: 96% Weight: 199 lbs 12/28/2014 Blood Pressure 1: 130/72 Code: 8480-6 BMI: 33.1 Code: 65629-4 Heart Rate 1: 60 bpm Height: 5'3" SpO2: 97% Weight: 187 lbs 10/31/2014 Blood Pressure 1: 118/72 Code: 8480-6 BMI: 31.2 Code: 20112-8 Heart Rate 1: 58 bpm Height: 5'3" SpO2: 98% Weight: 176 lbs 10/02/2014 Blood Pressure 1: 138/74 Code: 8480-6 BMI: 30.6 Code: 99192-4 Heart Rate 1: 72 bpm Height: 5'3" Weight: 173 lbs 09/21/2014 Blood Pressure 1: 138/72 Code: 8480-6 BMI: 30.5 Code: 73966-4 Heart Rate 1: 60 bpm Height: 5'3" [...] daily 12/25/2015 None Hospital Follow Up _ [facility] er: diverticulitis 10/11/2015 None Hospital Follow [...] Encounters Encounter Performer Loca tion Codes Date [id number] EST. PATIENT, LEVEL III Diagnosis: Localized edema[ICD10: R60.0] Diagnosis: Varicose veins of right lower extremity with pain[ICD10: I83.811] Rox Alvarez MD, [facility] CPT-4: 62278 06/10/2018 [id number] EST. 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 PATIENT, LEVEL III Diagnosis: Cellulitis of left axilla[ICD10: L03.112] Diagnosis: Cellulitis of right axilla[ICD10: L03.111] Rox Alvarez MD, [facility] CPT-4: 86903 08/28/2017 06293 EST. 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 PATIENT, LEVEL IV Diagnosis: Generalized anxiety disorder[ICD10: F41.1] Diagnosis: Major depressive disorder, single episode, moderate[ICD10: F32.1] Diagnosis: Diarrhea, unspecified[ICD10: R19.7] Rox Alvarez MD, [facility] CPT-4: 44553 04/21/2017 10697 EST. PATIENT, LEVEL IV Diagnosis: Generalized anxiety disorder[ICD10: F41.1] Diagnosis: Major depressive disorder, single episode, moderate[ICD10: F32.1] Diagnosis: Nausea[ICD10: R11.0] Diagnosis: Diarrhea, unspecified[ICD10: R19.7] Rox Alvarez MD, [facility] CPT-4: 10521 04/07/2017 ([id number]) [id number] EST. P ATIENT, LEVEL IV Diagnosis: Essential (primary) hypertension[ICD10: I10] Diagnosis: Nausea[ICD10: R11.0] Diagnosis: Other fecal abnormalities[ICD10: R19.5] Diagnosis: Tobacco use[ICD10: Z72.0] Selena Alvarez MD, [facility] CPT-4: 34466 01/27/2017 ([id number]) 88609 EST. P ATIENT, LEVEL III Diagnosis: Essential (primary) hypertension[ICD10: I10] Diagnosis: Chronic obstructive pulmonary disease, unspecified[ICD10: J44.9] Diagnosis: Rash and other nonspecific skin eruption[ICD10: R21] Selena Alvarez MD, [facility] CPT-4: 11616 11/25/2016 ([id number]) 82436 EST. P ATIENT, LEVEL III Diagnosis: Other sites of candidiasis[ICD10: B37.89] Selena Alvarez MD, [facility] CPT-4: 30768 10/15/2016 ([id number]) 02638 EST. P ATIENT, LEVEL IV Diagnosis: Essential (primary) hypertension[ICD10: I10] Diagnosis: Urinary tract infection, site not specified[ICD10: N39.0] Diagnosis: Localized edema[ICD10: R60.0] Selena Alvarez MD, [facility] CPT-4: 09231 09/17/2016 79612 EST. 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 PATIENT, LEVEL III Diagnosis: Other specified bacterial intestinal infections[ICD10: A04.8] Rox Alvarez MD, [facility] CPT-4: 26246 04/16/2016 32484 EST. PATIENT, LEVEL II Diagnosis: Pain in right foot[ICD10: M79.671] Rox Alvarez MD [facility] CPT-4: 06944 01/21/2016 21700 EST. PATIENT, LEVEL III Diagnosis: Encounter for therapeutic drug level monitoring[ICD10: Z51.81] Diagnosis: Rash and other nonspecific skin eruption[ICD10: R21] Rox Alvarez MD [facility] CPT-4: 00461 01/10/2016 68893 EST. PATIENT, LEVEL III Diagnosis: Rash and other nonspecific skin eruption[ICD10: R21] Rox Alvarez MD [facility] CPT-4: 96412 01/07/2016 ([id number]) Miscellaneou s no charge Diagnosis: Cutaneous abscess of left axilla[ICD10: L02.412] Rox Alvarez MD [facility] CPT-4: 58933 01/02/2016 ([id number]) Miscellaneou s no charge Diagnosis: Cutaneous abscess of left axilla[ICD10: L02.412] Rox Alvarez MD [facility] CPT-4: 93430 01/01/2016 ([id number]) Miscellaneou s no charge Diagnosis: Cutaneous abscess of left axilla[ICD10: L02.412] Rox Alvarez MD [facility] CPT-4: 67435 12/31/2015 ([id number]) Patient adm itted to the hospital from clinic (NO CHARGE) Diagnosis: Cutaneous abscess of left axilla[ICD10: L02.412] Rox Alvarez MD [facility] CPT-4: 21985H 12/25/2015 [id number] EST. PATIENT, LEVEL III Diagnosis: Encounter for follow-up examination after completed treatment for conditions other than malignant neoplasm[ICD10: Z09] Diagnosis: Diverticulitis of intestine, part unspecified, without perforation or abscess with bleeding[ICD10: K57.93] Diagnosis: Cellulitis of left toe[ICD10: L03.032] Diagnosis: Other obesity due to excess calories[ICD10: E66.09] Diagnosis: Other prison (current) drug therapy[ICD10: Z79.899] Rox Alvarez MD, [facility] CPT-4: 90393 10/11/2015 ([id number]) Miscellaneou s no charge Diagnosis: Encounter for therapeutic drug level monitoring[ICD10: Z51.81] Diagnosis: Other acute osteomyelitis, left ankle and foot[ICD10: M86.172] Rox Alvarez MD, [facility] CPT-4: 38870 08/24/2015 90617 EST. PATIENT, LEVEL IV Diagnosis: Cellulitis of left toe[ICD10: L03.032] Rox Alvarez MD, [facility] CPT-4: 12480 08/20/2015 93738 EST. PATIENT, LEVEL III Diagnosis: Essential (primary) hypertension[ICD10: I10] Diagnosis: Peripheral vascular disease, unspecified[ICD10: I73.9] Diagnosis: Dermatitis, unspecified[ICD10: L30.9] Rox Alvarez MD, [facility] CPT- 4: 10133 12/28/2014 ([id number]) 32113 [facility]. [facility] Diagnosis: ESSENTIAL HYPERTENSION[ICD9: 401.9] Diagnosis: PAD (peripheral artery disease)[ICD9: 443.9] Diagnosis: Anticoagulated on Coumadin[ICD9: V58.83] Emy Alvarez MD, [facility] CPT-4: 17398 10/31/2014 ([id number]) 06654 EST. [facility] Diagnosis: PAD (peripheral artery disease)[ICD9: 443.9] Diagnosis: Anticoagulated on Coumadin[ICD9: V58.83] Diagnosis: SCLERITIS[ICD9: 379.00] Diagnosis: ESSENTIAL HYPERTENSION[ICD9: 401.9] Selena Alvarez MD, [facility] CPT- 4: 06840 10/02/2014 ([id number]) OFFICE [facility] - LEVEL 4 Diagnosis: GOUT[ICD9: 274.9] Diagnosis: COPD (chronic obstructive pulmonary disease)[ICD9: 496] Diagnosis: PAD (peripheral artery disease)[ICD9: 443.9] Diagnosis: ESSENTIAL HYPERTENSION[ICD9: 401.9] Selena Alvarez MD, [facility] CPT- 4: 63718 09/21/2014 Plan of Care Planned Activity Notes C odes Status Date Visit Plan: Edema - pt has been [...] vein specialist. 06/10/2018 Appointment: Rox Luciano WPtel: [id number] (30 min) Complex 06/10/2018 Patient Education: [...] continue PT 03/11/2018 Appointment: Rox Luciano WPtel: [phone] (15 min) Moderate 03/11/2018 Patient Education: Patient Medication Summary Completed 03/11/2018 Appointment: Rox Luciano WPtel: [phone] (30 min) Complex 11/17/2017 Visit Plan: Cellulitis [...] discharge. 08/28/2017 Appointment: Rox Luciano WPtel: [phone] [phone] (30 min) Complex 08/28/2017 Patient Education: Patient [...] continue PT 07/20/2017 [phone] [facility] 07/20/2017 Patient Education: Patient Medication Summary Completed 07/20/2017 Referral: Stephanie Silva WPtel: Referral Initiated 05/04/2017 Care Plan: Referral Order SNOMED-CT : [id number] Pending 04/30/2017 Visit Plan: Chronic Depression and [...] stomach pain. 04/21/2017 Appointment: Rox Luciano WPtel[facility] ([facility] Complex 04/21/2017 Patient Education: [...] stomach pain. 04/07/2017 Appointment: Rox Luciano WPtel: [address] [place], [place] [address] (30 min) Complex 04/07/2017 Patient Education: Patient Medication Summary Completed 04/07/2017 Appointment: Selena Alvarez WPtel: [phone] [facility] (15 min) Moderate 02/26/2017 Visit Plan: Hypertension [...] not improving. 01/27/2017 Appointment: Selena Alvarez WPtel: [facility]3 [facility] (15 min) Moderate 01/27/2017 Patient Education: Patient [...] with nystatin 11/25/2016 Appointment: Selena Alvarez WPtel: [facility]5 [facility] (15 min) Moderate 11/25/2016 Appointment: Selena Alvarez WPtel: [facility] (15 min) Moderate 11/25/2016 Patient Education: Patient Medication Summary Completed 11/25/2016 Patient Education: Smoking and Tobacco Addiction Completed 11/25/2016 Patient Education: Hypertension Completed 11/25/2016 Visit Plan: Yeast/candidal of groin - rx for nystatin - monitor symptoms. call if not improving. Chronic Pain Syndrome - pt has chronic pain - has been maintained on current medications, has not sought out other [place] dications, only uses PRN pain medications as directed, and understands the consequences of over-medication. 10/15/2016 Appointment: Selena Alvarez WPtel: [phone] [facility] (15 min) Moderate 10/15/2016 Patient Education: Patient Medication Summary Completed 10/15/2016 Patient Education: Smoking and Tobacco Addiction Completed 10/15/2016 Appointment: Rox Luciano WPtel: [phone] (30 min) Complex 09/18/2016 Visit Plan: Hypertension [...] mobility evaluation. 08/14/2016 Appointment: Rox Luciano WPtel: [facility] [place] (30 min) Complex 08/14/2016 Patient Education: Patient [...] stomach pain. 04/16/2016 Appointment: Rox Luciano WPtel: [facility] [place] (15 min) Moderate 04/16/2016 Patient Education: Patient Medication Summary Completed 04/16/2016 Patient Education: Smoking and Tobacco Addiction Completed 04/16/2016 Referral: Dr Arboleda Referral Completed 02/14/2016 Care Plan: Referral Order SNOMED-CT : [id number] Pending 01/29/2016 Visit Plan: Right foot pain [...] warmth, discharge. 01/10/2016 Appointment: Rox Luciano WPtel: [facility] ([facility] min) Complex 01/10/2016 Patient Education: Patient [...] I&D. 12/25/2015 Appointment: Emy Westbrook WPtel: [phone] [phone] (15 min) Moderate 12/25/2015 Patient Education: Patient [...] management. 10/11/2015 Appointment: Rox Luciano [facility]Ptel[phone] ([facility] min) Complex 10/11/2015 Patient Education: Patient Medication Summary Completed 10/11/2015 Patient Education: Smoking and Tobacco Addiction Completed 10/11/2015 Patient Education: Obesity Completed 10/11/2015 Referral: Gavino Navarro they are g oing to call if they get him in before if not we will call Dr shook Initiated 09/27/2015 Appointment: Emy Westbrook WPtel: [address] [place], [place] [phone] (15 min) Moderate 08/24/2015 Patient Education: Patient Medication Summary Completed 08/24/2015 Patient Education: Smoking and Tobacco Addiction Completed 08/24/2015 Patient Education: Patient Medication Summary Completed 08/23/2015 Appointment: Emy Westbrook WPtel: [address] [place], [place] [phone] (30 min) Complex 08/22/2015 Referral: [facility] WPtel: [facility] Referral Initiated 08/22/2015 Visit Plan: Pt on [...] Completed 12/28/2014 Appointment: [phone] Follow up 12/20/2014 Visit Plan: Hypertension [...] 09/21/2014 Care Plan: Referral Order SNOMED-CT : [id number] Ordered 09/21/2014 Appointment: Selena Alvarez WPtel: [phone] [place] [address] [place] ([place]) New Patient 09/20/2014 Referral: Martinez Wren WPtel: [facility] [place] [address] [place] Referral Initiated Referral: Gavino Navarro Referral Initiated Referral: [facility] WPtel: [address] Referral Initiated Referral: Dr Arboleda Referral [...] worsening redness, warmth, discharge. probiotics - culture [facility] or [facility]. . 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
--- OUTSIDE RECORDS SUMMARY | 2019-08-20 18:17 | XMS REPORT | CCD ---
Author Author Bony Alvarez Organization Selena Alvarez MD, [facility] Address [address] [place] [address] Phone Care Team Providers Care Jacquard Card Lacer Name Role Phone PP Unavailable CCM Unavailable Summary Purpose Interface Exchange Insurance Providers Payer name Policy type / Coverage type Covered libertarian ID Effective Begin Date Effective End Date [facility] Commercial Insurance [id number] 2017 Unknown Family history Father Diagnosis Age At Onset Hyperlipidemia Unknown Coronary Artery Disease Unknown Stroke Unknown Cancer Unknown Congestive heart failure Unknown Mother Diagnosis Age At Onset Hypertension Unknown kidney disease Unknown Cancer Unknown Stroke Unknown Hyperlipidemia Unknown Coronary Artery Disease Unknown Congestive heart failure Unknown Social History Social History Element Codes Description Effective Dates Tobacco history SNOMED CT: 361494103890487 Current some days smoker 09/21/2014 Allergies, Adverse [...] ICD-9: 300.00 ICD-10: F41.1 Active 04/21/2017 Unknown group home (current) use of anticoagulants ICD-9: V58.61 [...] V67.59 ICD-10: Z09 Active 10/10/2015 Unknown Other alf (cur rent) drug therapy ICD-9: V58.69 ICD-10: [...] disorder ICD-9: 300.00 ICD-10: F41.1 04/21/2017 Active 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 ICD-9: V58.61 ICD-10: [...] ICD-9: V67.59 ICD-10: Z09 10/10/2015 Active Other alf (cur rent) drug therapy ICD-9: V58.69 ICD-10: [...] Date Stop Date Sta tus Fill Instructions Lexapro 10 mg tablet RxNorm: 552041 TAKE ONE TABLET BY MOUTH AT BEDTIME 08/03/2018 06/28/2019 Ac tive hydrocodone 7.5 mg-a cetaminophen 325 mg tablet RxNorm: 164927 1 Tablet(s) PO QID as needed 07/15/2018 08/13/2018 Active Keflex 500 mg capsule RxNorm: 445975 1 Capsule(s) PO TID 06/11/2018 06/17/2018 Inactive Pepcid 20 mg tablet RxNorm: 852444 TAKE ONE TABLET BY MOUTH TWICE A DAY 05/25/2018 09/21/2018 Ac tive hydrocodone 7.5 mg-a cetaminophen 325 mg tablet RxNorm: 896037 1 Tablet(s) PO QID as needed 05/19/2018 06/17/2018 Inactive hydrocodone 7.5 mg-a cetaminophen 325 mg tablet RxNorm: 063872 1 Tablet(s) PO QID as needed 04/19/2018 05/18/2018 Inactive allopurinol 100 mg t ablet RxNorm: 249845 TAKE ONE TABLET BY MO UTH DAILY 04/06/2018 03/01/2019 Ac tive hydrocodone 7.5 mg-a cetaminophen 325 mg tablet RxNorm: 036690 1 Tablet(s) PO QID as needed 03/11/2018 04/09/2018 Inactive potassium chloride E R 20 mEq tablet,extended release RxNorm: 277498 Tablet(s) TAKE ONE TABLET BY MOUTH DAILY WHEN TAKING FUROSEMIDE NEEDED 03/05/2018 08/31/2018 Active gabapentin 300 mg ca psule RxNorm: 391044 TAKE ONE CAPSULE BY M OUTH THREE TIMES A DAY 03/04/2018 02/26/2019 Ac tive hydrocodone 7.5 mg-a cetaminophen 325 mg tablet RxNorm: 081048 1 Tablet(s) PO QID as needed 02/18/2018 03/10/2018 Inactive hydrocodone 7.5 mg-a cetaminophen 325 mg tablet RxNorm: 883968 1 Tablet(s) PO QID as needed 01/19/2018 02/17/2018 Inactive hydrocodone 7.5 mg-a cetaminophen 325 mg tablet RxNorm: 428948 1 Tablet(s) PO QID as needed 12/16/2017 01/14/2018 Inactive Pepcid 20 mg tablet RxNorm: 103042 Tablet(s) TAKE ONE TABLET BY MOUTH TWICE A DAY 12/08/2017 05/06/2018 Inactive hydrocodone 7.5 mg-a cetaminophen 325 mg tablet RxNorm: 766682 1 Tablet(s) PO QID as needed 11/18/2017 12/15/2017 Inactive gabapentin 300 mg ca psule RxNorm: 200063 Capsule(s) TAKE ONE C APSULE BY MOUTH THREE TIMES A DAY 11/11/2017 03/03/2018 Inactive gabapentin 300 mg ca psule RxNorm: 363365 TAKE ONE CAPSULE BY M OUTH THREE TIMES A DAY 11/10/2017 11/10/2017 Inactive hydrocodone 7.5 mg-a cetaminophen 325 mg tablet RxNorm: 207107 1 Tablet(s) PO QID as needed 10/19/2017 11/17/2017 Inactive hydrocodone 7.5 mg-a cetaminophen 325 mg tablet RxNorm: 493336 1 Tablet(s) PO QID as needed 09/16/2017 10/15/2017 Inactive doxycycline hyclate 100 mg capsule RxNorm: 7367471 1 Capsule(s) PO BID 08/28/2017 09/06/2017 In active hydrocodone 7.5 mg-a cetaminophen 325 mg tablet RxNorm: 042538 1 Tablet(s) PO QID as needed 08/21/2017 09/15/2017 Inactive Lexapro 10 mg tablet RxNorm: 709719 TAKE ONE TABLET BY MOUTH AT BEDTIME 08/02/2017 07/27/2018 In active Zyrtec 10 mg tablet RxNorm: 0489882 1 Tablet(s) PO daily 07/20/2017 11/16/2017 Inactive hydrocodone 7.5 mg-a cetaminophen 325 mg tablet RxNorm: 603009 1 Tablet(s) PO QID as needed 07/20/2017 09/15/2017 Inactive furosemide 40 mg tablet RxNorm: 792614 Tablet(s) TAKE ONE TABLET BY MOUTH DAILY NEEDED FOR SWELLING 07/08/2017 01/03/2018 Inactive Pepcid 20 mg tablet RxNorm: 362216 TAKE ONE TABLET BY MOUTH TWICE A DAY 06/29/2017 11/25/2017 In active gabapentin 300 mg ca psule RxNorm: 395685 TAKE ONE CAPSULE BY M OUTH THREE TIMES A DAY 06/29/2017 10/26/2017 Inactive hydrocodone 7.5 mg-a cetaminophen 325 mg tablet RxNorm: 165932 1 Tablet(s) PO QID as needed 06/18/2017 07/17/2017 Inactive hydrocodone 7.5 mg-a cetaminophen 325 mg tablet RxNorm: 705367 1 Tablet(s) PO QID as needed 05/18/2017 06/16/2017 Inactive hydrocodone 7.5 mg-a cetaminophen 325 mg tablet RxNorm: 633943 1 Tablet(s) PO QID as needed 04/21/2017 05/17/2017 Inactive hyoscyamine 0.125 mg sublingual tablet RxNorm: 5596368 1 Tablet(s) SL TID a s needed 04/21/2017 04/25/2017 In active Lexapro 10 mg tablet RxNorm: 591547 1 Tablet(s) PO QHS 04/21/2017 07/19/2017 Inactive Flagyl 500 mg tablet RxNorm: 576444 1 Tablet(s) PO TID 04/07/2017 04/16/2017 Inactive Lexapro 10 mg tablet RxNorm: 344081 1 Tablet(s) PO QHS 04/07/2017 04/20/2017 Inactive hydrocodone 7.5 mg-a cetaminophen 325 mg tablet RxNorm: 442722 1 Tablet(s) PO QID as needed 03/24/2017 04/20/2017 Inactive allopurinol 100 mg t ablet RxNorm: 679062 TAKE ONE TABLET BY [facility] DAILY 03/10/2017 03/04/2018 In active hydrocodone 7.5 mg-a cetaminophen 325 mg tablet RxNorm: 496435 1 Tablet(s) PO QID as needed 02/11/2017 03/12/2017 Inactive gabapentin 300 mg ca psule RxNorm: 997304 TAKE ONE CAPSULE BY [facility] THREE TIMES A DAY 02/02/2017 06/28/2017 Inactive Zofran ODT 4 mg disi ntegrating tablet RxNorm: 771401 1 Tablet(s) PO QID as needed nausea and vomitting 01/27/2017 No Stop Date Active hydrocodone 7.5 mg-a cetaminophen 325 mg tablet RxNorm: 719543 1 Tablet(s) PO QID as needed 01/13/2017 02/10/2017 Inactive potassium chloride E R 20 mEq tablet,extended release RxNorm: 612376 TAKE ONE TABLET BY MOUTH DAILY WHEN TAKING FUROSEMIDE NEEDED 01/12/2017 07/10/2017 Inactive furosemide 40 mg tablet RxNorm: 263323 TAKE ONE TABLET BY MOUTH DAILY NEEDED FOR SWELLING 01/12/2017 07/09/2017 Inactive promethazine 25 mg t ablet RxNorm: 379302 TAKE ONE TABLET BY [facility] THREE TIMES A DAY NEEDED FOR NAUSEA AND VOMITING 01/12/2017 01/31/2017 Inactive promethazine 25 mg t ablet RxNorm: 717858 1 Tablet(s) PO TID as needed nausea and vomitting 01/06/2017 01/11/2017 Inactive Lomotil 2.5 mg-0.025 mg tablet RxNorm: 2286366 1-2 Tablet(s) PO BID as needed diarrhea 01/06/2017 01/05/2017 Inactive Lomotil 2.5 mg-0.025 mg tablet RxNorm: 6210755 1-2 Tablet(s) PO BID as needed diarrhea 01/06/2017 01/07/2017 Inactive Pepcid 20 mg tablet RxNorm: 598822 1 Tablet(s) PO BID 12/19/2016 06/16/2017 Inactive Pepcid 20 mg tablet RxNorm: 148637 1 Tablet(s) PO BID 12/16/2016 12/18/2016 Inactive hydrocodone 7.5 mg-a cetaminophen 325 mg tablet RxNorm: 806790 1 Tablet(s) PO QID as needed 12/16/2016 01/12/2017 Inactive hydrocodone 7.5 mg-a cetaminophen 325 mg tablet RxNorm: 894374 1 Tablet(s) PO QID as needed 11/18/2016 12/15/2016 Inactive allopurinol 100 mg t ablet RxNorm: 909811 TAKE ONE TABLET BY [facility] DAILY 10/29/2016 02/25/2017 In active hydrocodone 7.5 mg-a cetaminophen 325 mg tablet RxNorm: 632712 1 Tablet(s) PO QID as needed 10/15/2016 11/13/2016 Inactive nystatin 100,000 uni t/gram topical cream RxNorm: 876954 1 Gram(s) TOP QID 10/15/2016 11/25/2016 In active nystatin 100,000 uni t/gram topical powder RxNorm: 148400 1 Gram(s) TOP TID TO GROIN OR AFFECTED AREA 10/14/2016 No Stop Date Active hydrocodone 7.5 mg-a cetaminophen 325 mg tablet RxNorm: 403818 1 Tablet(s) PO QID as needed 09/17/2016 10/14/2016 Inactive furosemide 40 mg tablet RxNorm: 289298 1 Tablet(s) PO daily as needed swelling 09/17/2016 01/11/2017 In active potassium chloride E R 20 mEq tablet,extended release RxNorm: 652666 1 Tablet(s) PO daily as needed take when taking a lasix pill 09/17/2016 01/11/2017 Inactive Levaquin 500 mg tablet RxNorm: 160772 1 Tablet(s) PO daily 09/17/2016 09/21/2016 Inactive hydrocodone 7.5 mg-a cetaminophen 325 mg tablet RxNorm: 123113 1 Tablet(s) PO QID as needed 08/14/2016 09/12/2016 Inactive cyclobenzaprine 5 mg tablet RxNorm: 550474 1 Tablet(s) PO TID as needed 07/25/2016 07/29/2016 In active cyclobenzaprine 5 mg tablet RxNorm: 472224 1 Tablet(s) PO TID as needed 07/25/2016 07/24/2016 In active hydrocodone 7.5 mg-a cetaminophen 325 mg tablet RxNorm: 525706 1 Tablet(s) PO QID as needed 07/21/2016 08/13/2016 Inactive warfarin 1 mg tablet RxNorm: 625324 TAKE ONE TABLET BY MOUTH EVERY EVENING 06/26/2016 08/04/2016 In active hydrocodone 7.5 mg-a cetaminophen 325 mg tablet RxNorm: 636188 1 Tablet(s) PO QID as needed 06/24/2016 07/20/2016 Inactive hydrocodone 5 mg-yanira taminophen 325 mg tablet RxNorm: 607321 1 Tablet(s) PO Q6 as needed for pain 06/09/2016 06/10/2016 Inactive warfarin 1 mg tablet RxNorm: 383467 TAKE ONE TABLET BY MOUTH EVERY EVENING 06/02/2016 06/21/2016 In active allopurinol 100 mg t ablet RxNorm: 142995 TAKE ONE TABLET BY MO [facility] DAILY 05/21/2016 10/17/2016 In active hydrocodone 7.5 mg-a cetaminophen 325 mg tablet RxNorm: 970456 1 Tablet(s) PO QID as needed 05/09/2016 06/07/2016 Inactive gabapentin 300 mg ca psule RxNorm: 679722 Capsule(s) TAKE ONE C APSULE BY MOUTH THREE TIMES A DAY 04/25/2016 11/09/2017 Inactive promethazine 25 mg t ablet RxNorm: 484573 TAKE ONE TABLET BY MO [facility] THREE TIMES A DAY NEEDED 2016 05/01/2016 Inactive warfarin 1 mg tablet RxNorm: 977590 TAKE ONE TABLET BY MOUTH EVERY EVENING 2016 05/31/2016 In active promethazine 25 mg t ablet RxNorm: 853243 1 Tablet(s) PO TID as needed 04/16/2016 04/21/2016 In active warfarin 1 mg tablet RxNorm: 537097 TAKE ONE TABLET BY MOUTH EVERY EVENING 02/13/2016 04/12/2016 In active magnesium oxide 400 mg tablet RxNorm: 863673 TAKE ONE TABLET BY MO U[facility] TWICE A DAY 02/07/2016 01/01/2017 In active hydrocodone 5 mg-yanira taminophen 325 mg tablet RxNorm: 895470 1 Tablet(s) PO Q6 as needed for pain 01/21/2016 02/19/2016 Inactive warfarin 1 mg tablet RxNorm: 830700 TAKE ONE TABLET BY MOUTH EVERY EVENING 01/17/2016 02/05/2016 In active gabapentin 300 mg ca psule RxNorm: 694254 Capsule(s) TAKE ONE C APSULE BY MOUTH THREE TIMES A DAY 01/11/2016 04/24/2016 Inactive prednisone 10 mg tablet RxNorm: 383936 Tablet(s) PO UD 01/10/2016 03/08/2018 Inactive 60mg x2 days, then 50mg x2 days, then 40mg x2 days, 30mg x2 days, 20mg x2 days, 10mg x2days, 5mg every other day x 2 doses Kenalog 40 mg/mL cassius pension for injection RxNorm: 3401057 Milliliter(s) Inj 01/07/2016 01/07/2016 In active warfarin 1 mg tablet RxNorm: 873955 TAKE ONE TABLET BY MOUTH EVERY EVENING 01/01/2016 01/16/2016 In active hydrocodone 5 mg-yanira taminophen 325 mg tablet RxNorm: 120783 1 Tablet(s) PO Q6 as needed for pain 01/01/2016 01/15/2016 Inactive gabapentin 300 mg ca psule RxNorm: 027682 TAKE ONE CAPSULE BY M OUTH THREE TIMES A DAY 12/12/2015 01/10/2016 Inactive warfarin 5 mg tablet RxNorm: 308746 1 Tablet(s) PO daily 12/05/2015 No Stop Date Active warfarin 1 mg tablet RxNorm: 034860 TAKE ONE TABLET BY MOUTH EVERY EVENING 11/13/2015 12/22/2015 In active hydrocodone 5 mg-yanira taminophen 325 mg tablet RxNorm: 127550 1 Tablet(s) PO Q6 as needed for pain 10/26/2015 11/09/2015 Inactive allopurinol 100 mg t ablet RxNorm: 883225 1 Tablet(s) PO daily TAKE ONE TABLET BY MOUTH DAILY 10/18/2015 04/14/2016 Inactive hydrocodone 5 mg-yanira taminophen 325 mg tablet RxNorm: 124615 1 Tablet(s) PO Q6 as needed for pain 09/26/2015 10/10/2015 Inactive gabapentin 300 mg ca psule RxNorm: 790307 TAKE ONE CAPSULE BY M OUTH THREE TIMES A DAY 09/14/2015 12/11/2015 Inactive warfarin 1 mg tablet RxNorm: 318984 1 Tablet(s) PO QPM 09/14/2015 11/12/2015 Inactive hydrocodone 5 mg-yanira taminophen 325 mg tablet RxNorm: 444935 1 Tablet(s) PO Q6 as needed for pain 09/12/2015 09/25/2015 Inactive hydrocodone 5 mg-yanira taminophen 325 mg tablet RxNorm: 953754 1 Tablet(s) PO Q6 as needed for pain 08/22/2015 09/05/2015 Inactive Bactrim DS 800 mg-16 0 mg tablet RxNorm: 228642 1 Tablet(s) PO BID 08/20/2015 09/02/2015 Inactive magnesium oxide 400 mg tablet RxNorm: 951934 TAKE ONE TABLET BY [facility] TWICE A DAY 01/20/2015 01/14/2016 In active gabapentin 300 mg ca psule RxNorm: 420325 TAKE ONE CAPSULE BY M OUTH THREE TIMES A DAY 01/20/2015 05/19/2015 Inactive magnesium oxide 400 mg tablet RxNorm: 374715 1 Tablet(s) PO BID 01/17/2015 05/16/2015 Inactive gabapentin 300 mg ca psule RxNorm: 624771 1 Capsule(s) PO TID 01/17/2015 05/16/2015 Inactive allopurinol 100 mg t ablet RxNorm: 984178 TAKE ONE TABLET BY MO [facility] DAILY 10/18/2014 10/12/2015 In active Kenalog 40 mg/mL cassius pension for injection RxNorm: 4472354 1 Milliliter(s) Inj 09/21/2014 09/21/2014 In active allopurinol 100 mg t ablet RxNorm: 930170 1 Tablet(s) PO daily 09/21/2014 10/17/2014 Inactive gabapentin 300 mg ca psule RxNorm: 024513 1 Capsule(s) PO TID 09/12/2014 01/09/2015 Inactive gabapentin 300 mg ca psule RxNorm: 776702 1 Capsule(s) PO TID 09/12/2014 09/11/2014 Inactive magnesium oxide 400 mg tablet RxNorm: 617522 1 Tablet(s) PO BID 09/12/2014 01/09/2015 Inactive magnesium oxide 400 mg tablet RxNorm: 838516 1 Tablet(s) PO BID 09/12/2014 09/11/2014 Inactive lisinopril 5 mg tablet RxNorm: 244907 1 Tablet(s) PO daily No Start Date Active atorvastatin oral RxNorm: 51232 oral No Start Date Active Coreg 6.25 mg tablet RxNorm: 885574 1 Tablet(s) PO BID No Start Date Active Combivent Respimat 2 0 mcg-100 mcg/actuation solution for inhalation RxNorm: 9386810 1 Puff(s) INH as needed No Start Date Active Ventolin Refill 90 m cg/actuation aerosol inhaler RxNorm: 472732 2 INH as needed No Start Date Active Centrum Silver Women oral RxNorm: [address] art Date Active aspirin 81 mg capsul e,delayed release RxNorm: 709621 1 Capsule(s) PO daily No Start Date Active nystatin 100,000 uni t/gram topical powder RxNorm: 103093 1 Gram(s) TOP TID No Start Date 10/13/2016 Inactive warfarin 1 mg tablet RxNorm: 508414 oral No Start Date 09/13/2015 Inactive Pepcid 20 mg tablet RxNorm: 310134 1 Tablet(s) PO BID No Start Date 12/15/2016 Inactive Protonix 40 mg table t,delayed release RxNorm: 550877 1 Tablet(s) PO daily No Start Date 09/16/2016 Inactive warfarin 5 mg tablet RxNorm: 485138 1 Tablet(s) PO daily 1.5 tabs on Thu No Start Date 12/04/2015 Inactive minocycline 50 mg ca psule RxNorm: 803459 1 Capsule(s) PO BID o rdered by Dr. Saravia No Start Date 03/08/2018 Inactive furosemide 40 mg tablet RxNorm: 677849 1 Tablet(s) PO daily No Start Date 09/16/2016 Inactive Medication Administered Medication Codes Instruc tions Start Date Status Kenalog 40 mg/mL suspension for injection RxNorm: 3521676 Milliliter 01/07/2016 No longer Active Kenalog 40 mg/mL suspension for injection RxNorm: 6432346 1Milliliter 09/21/2014 N o longer Active Immunizations No Immunization data Assessments Condition Codes Effectiv e Dates Localized edema ICD-10: R60.0 ICD-9: 782.3 06/10/2018 Varicose veins of right lower extremity with pain ICD-10: I83.811 ICD-9: 454.8 06/10/2018 Chronic pain syndrome ICD-10: G89.4 ICD-9: 338.4 03/11/2018 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 ICD-10: Z79.01 ICD-9: [...] neoplasm ICD-10: Z09 ICD-9: V67.59 10/11/2015 Other alf (current) drug therapy ICD-10: Z79.899 ICD-9: V58.69 [...] Item Item Code Result Date Comp Metabolic Gnx109 NA 136 mEq/L 03/11/2018 Comp Metabolic Zxn321 K 4.3 mEq/L 03/11/2018 Comp Metabolic Rig657 CL 101 mEq/L 03/11/2018 Comp Metabolic Bdr297 CO2 27.0 mEq/L 03/11/2018 Comp Metabolic Gfo184 AN ION GAP 12 03/11/2018 Comp Metabolic Mxs996 GL UCOSE 87 mg/dL 03/11/2018 Comp Metabolic Rss577 Cr eat 1.0 mg/dL 03/11/2018 Comp Metabolic Cno338 eG FR 79 ml/min/1.73m2 03/11 Comp Metabolic Zlj697 BUN 12 mg/dL 03/11/2018 Comp Metabolic Eln664 B/ C Ratio 12.1 Ratio 03/11/2018 Comp Metabolic Swl088 CA LCIUM 8.9 mg/dL 03/11/2018 Comp Metabolic Phi523 AL K PHOS 106 U/L 03/11/2018 Comp Metabolic Sns809 T(SGOT) 16 U/L 03/11/2018 Comp Metabolic Pzc770 AL T(SGPT) 11 U/L 03/11/2018 Comp Metabolic Rje366 BI LI T 0.4 mg/dL 03/11/2018 Comp Metabolic Qbd746 AL BUMIN 3.8 g/dL 03/11/2018 Comp Metabolic Ffz651 TP RO 6.5 g/dL 03/11/2018 Comp Metabolic Tyf580 GL OB 2.7 g/dL 03/11/2018 Comp Metabolic Dtz569 A/ G Ratio 1.4 Ratio 03/11/2018 Comp Metabolic Rbt461 Os mo 271 mOsmo 03/11/2018 Cbc With [...] 29.8 pg 03/11/2018 Cbc With Differential Ord2 Norton% 11.3 % 03/11/2018 Cbc With Differential Ord2 [...] 2.87 K/ul 03/11/2018 Cbc With Differential Ord2 Norton ABS# 1.1 K/ul 03/11/2018 Cbc With Differential Ord2 Eos ABS# 0.4 K/ul 03/11/2018 Cbc With Differential Ord2 Baso ABS# 0.0 K/ul 03/11/2018 Pt Gnn8400 PT 31.3 seconds 03/11/2018 Pt Cow5791 INR 3.1 03/11/2018 Pt Dqr8966 Low Intensity - 1.5-2.0 03/11/2018 Pt Pfq0852 Mod intensity - 2.0-3.0 03/11/2018 Pt Srt8672 Hi intensity - 3.0-4.0 03/11/2018 Tsh Ord6 TSH (3rd IS) 2.01 uIU/mL 03/11/2018 Shiga Toxin 1 & 2 Eia Stool [id number] SHIGA TOXIN 1: NEGATIVE 04/12/2017 Shiga Toxin 1 & 2 Eia Stool [id number] SHIGA TOXIN 2: NEGATIVE 04/12/2017 Culture Stool [id number] STO OL CULTURE SEE NOTES 04/12/2017 Clostridium Diff Tox A/B Zhw889 Cdiff Negative 04/09/2017 Pt Egu7461 PT 64.8 seconds 01/10/2016 Pt Cow0605 INR 8.6 01/10/2016 Pt Omr1384 Low Intensity - 1.5-2.0 01/10/2016 Pt Mrj2334 Mod intensity - 2.0-3.0 01/10/2016 Pt Mhr2720 Hi intensity - 3.0-4.0 01/10/2016 Pt Uyv2024 PT 32.1 seconds 11/01/2014 Pt Ysp2910 INR 3.2 11/01/2014 Pt Xza2270 Low Intensity - 1.5-2.0 11/01/2014 Pt Txs4390 Mod intensity - 2.0-3.0 11/01/2014 Pt Esw7265 Hi intensity - 3.0-4.0 11/01/2014 Pt Jzo8558 PT 30.2 seconds 10/03/2014 Pt Kox4443 INR 3.0 10/03/2014 Pt Voz3164 Low Intensity - 1.5-2.0 10/03/2014 Pt Pjm2550 Mod intensity - 2.0-3.0 10/03/2014 Pt Als6651 Hi intensity - 3.0-4.0 10/03/2014 D-Dimer D-DIMER 475 NG/ML 09/25/2014 D-Dimer COMMENT 09/25/2014 Magnesium Ord90 Mag 1.1 Result Verified By Repeat Analysis mg/dL 09/22/2014 Pt Ydc8441 PT 32.0 seconds 09/22/2014 Pt Bef3622 INR 3.2 09/22/2014 Pt Uxp4137 Low Intensity - 1.5-2.0 09/22/2014 Pt Srw1786 Mod intensity - 2.0-3.0 09/22/2014 Pt Dvp0199 Hi intensity - 3.0-4.0 09/22/2014 Comp Metabolic Ayq459 NA 137 mEq/L 09/22/2014 Comp Metabolic Ufv107 K 4.2 mEq/L 09/22/2014 Comp Metabolic Ihb781 CL 102 mEq/L 09/22/2014 Comp Metabolic Mpd683 CO2 25.0 mEq/L 09/22/2014 Comp Metabolic Yph580 AN ION GAP 14 09/22/2014 Comp Metabolic Qvx749 GL UCOSE 94 mg/dL 09/22/2014 Comp Metabolic Uer273 Cr eat 0.8 mg/dL 09/22/2014 Comp Metabolic Osi315 eG FR 102 ml/min/1.73m2 09/06 Comp Metabolic Wih769 BUN 15 mg/dL 09/22/2014 Comp Metabolic Fol678 B/ C Ratio 18.8 Ratio 09/22/2014 Comp Metabolic Tds159 CA LCIUM 9.4 mg/dL 09/22/2014 Comp Metabolic Kvr580 AL K PHOS 65 U/L 09/22/2014 Comp Metabolic Iyo498 T(SGOT) 15 U/L 09/22/2014 Comp Metabolic Dor150 AL T(SGPT) 8 U/L 09/22/2014 Comp Metabolic Dqu305 BI LI T 0.4 mg/dL 09/22/2014 Comp Metabolic Wuw659 AL BUMIN 4.0 g/dL 09/22/2014 Comp Metabolic Yzm786 TP RO 6.8 g/dL 09/22/2014 Comp Metabolic Yqk082 GL OB 2.8 g/dL 09/22/2014 Comp Metabolic Ode872 A/ G Ratio 1.4 Ratio 09/22/2014 Comp Metabolic Ahk905 Os mo 274 mOsmo 09/22/2014 C-Reactive Protein [...] holosystolic 11/25/2016 None Full Exam - General 1995 Musculoskeletal lower extremity Inspection - thigh: deformity [...] Procedure Codes Date THER/PROPH/DIAG INJ SC/IM CPT-4: 58324 08/28/2017 ROCEPHIN, PER 250 MG CPT-4: J0696 08/28/2017 TOBACCO-USE IRRIGATOR VALVE PIPE 3-[address]: 636685856 CPT-4: G0436 01/27/2017 TOBACCO-USE IRRIGATOR VALVE PIPE 3-[address]: 095697485 CPT-4: G0436 11/25/2016 TOBACCO-USE IRRIGATOR VALVE PIPE 3-[address]: 936735327 CPT-4: G0436 10/15/2016 TOBACCO-USE IRRIGATOR VALVE PIPE 3-[address]: 720182207 CPT-4: G0436 09/17/2016 THER/PROPH/DIAG INJ SC/IM CPT-4: 48948 01/07/2016 TRIAMCINOLONE ACET I [place] NOS CPT-4: J3301 01/07/2016 TRIAMCINOLONE ACET I [place] NOS CPT-4: J3301 09/21/2014 THER/PROPH/DIAG INJ SC/IM CPT-4: 71741 09/21/2014 Vital Signs Date Vital 06/10/2018 Blood Pressure 1: 122/60 Code: 8480-6 BMI: 31.4 Code: 64902-3 Heart Rate 1: 75 bpm Height: 5'3" SpO2: 98% Weight: 177 lbs 03/11/2018 Blood Pressure 1: 134/82 Code: 8480-6 BMI: 32.8 Code: 74763-6 Heart Rate 1: 65 bpm Height: 5'3" SpO2: 96% Weight: 185 lbs 08/28/2017 Blood Pressure 1: 138/72 Code: 8480-6 Heart Rate 1: 80 bpm Height: SpO2: 98% Weight: 07/20/2017 Blood Pressure 1: 134/76 Code: 8480-6 BMI: 29.6 Code: 57165-3 Heart Rate 1: 82 bpm Height: 5'3" [...] 1: 128/78 Code: 8480-6 BMI: 33.3 Code: 03466-4 Heart Rate 1: 72 bpm Height: 5'3" SpO2: 97% Weight: 188 lbs 01/10/2016 Blood Pressure 1: 132/76 Code: 8480-6 BMI: 33.1 Code: 67610-3 Heart Rate 1: 72 bpm Height: 5'3" SpO2: 97% Weight: 187 lbs 12/25/2015 Blood Pressure 1: 154/82 Code: 8480-6 BMI: 33.1 Code: 79323-5 Heart Rate 1: 72 bpm Height: 5'3" SpO2: 97% Weight: 187 lbs 10/11/2015 Blood Pressure 1: 110/62 Code: 8480-6 BMI: 34.7 Code: 98436-2 Heart Rate 1: 70 bpm Height: 5'3" SpO2: 93% Weight: 196 lbs 08/24/2015 Blood Pressure 1: 132/62 Code: 8480-6 BMI: 35.3 Code: 90580-0 Heart Rate 1: 62 bpm Height: 5'3" SpO2: 93% Weight: 199 lbs 08/20/2015 Blood Pressure 1: 140/68 Code: 8480-6 BMI: 35.3 Code: 78963-6 Heart Rate 1: 74 bpm Height: 5'3" SpO2: 96% Weight: 199 lbs 12/28/2014 Blood Pressure 1: 130/72 Code: 8480-6 BMI: 33.1 Code: 43808-6 Heart Rate 1: 60 bpm Height: 5'3" SpO2: 97% Weight: 187 lbs 10/31/2014 Blood Pressure 1: 118/72 Code: 8480-6 BMI: 31.2 Code: 07452-0 Heart Rate 1: 58 bpm Height: 5'3" SpO2: 98% Weight: 176 lbs 10/02/2014 Blood Pressure 1: 138/74 Code: 8480-6 BMI: 30.6 Code: 35610-8 Heart Rate 1: 72 bpm Height: 5'3" Weight: 173 lbs 09/21/2014 Blood Pressure 1: 138/72 Code: 8480-6 BMI: 30.5 Code: 72775-7 Heart Rate 1: 60 bpm Height: 5'3" [...] daily 12/25/2015 None Hospital Follow Up _ [facility] er: diverticulitis 10/11/2015 None Hospital Follow Up [...] extremity with pain[ICD10: I83.811] Rox Alvarez MD, [facility] CPT-4: 96638 06/10/2018 [id number] EST. 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 PATIENT, LEVEL III Diagnosis: Cellulitis of left axilla[ICD10: L03.112] Diagnosis: Cellulitis of right axilla[ICD10: L03.111] Rox Alvarez MD, [facility] CPT-4: 06118 08/28/2017 [id number] EST. 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 PATIENT, LEVEL IV Diagnosis: Generalized anxiety disorder[ICD10: F41.1] Diagnosis: Major depressive disorder, single episode, moderate[ICD10: F32.1] Diagnosis: Diarrhea, unspecified[ICD10: R19.7] Rox Alvarez MD, [facility] CPT-4: 19888 04/21/2017 [id number] EST. PATIENT, LEVEL IV Diagnosis: Generalized anxiety disorder[ICD10: F41.1] Diagnosis: Major depressive disorder, single episode, moderate[ICD10: F32.1] Diagnosis: Nausea[ICD10: R11.0] Diagnosis: Diarrhea, unspecified[ICD10: R19.7] Rox Alvarez MD, [facility] CPT-4: 87211 04/07/2017 ([id number]) [id number] EST. [facility]: Essential (primary) hypertension[ICD10: I10] Diagnosis: Nausea[ICD10: R11.0] Diagnosis: Other fecal abnormalities[ICD10: R19.5] Diagnosis: Tobacco use[ICD10: Z72.0] Selena Alvarez MD, [facility] CPT-4: 14984 01/27/2017 ([id number]) 82339 EST. [facility] Diagnosis: Essential (primary) hypertension[ICD10: I10] Diagnosis: Chronic obstructive pulmonary disease, unspecified[ICD10: J44.9] Diagnosis: Rash and other nonspecific skin eruption[ICD10: R21] Selena Alvarez MD, [facility] CPT-4: 75111 11/25/2016 ([id number]) 80281 EST. [facility] Diagnosis: Other sites of candidiasis[ICD10: B37.89] Selena Alvarez MD, [facility] CPT-4: 27248 10/15/2016 ([id number]) 75550 EST. [facility] Diagnosis: Essential (primary) hypertension[ICD10: I10] Diagnosis: Urinary tract infection, site not specified[ICD10: N39.0] Diagnosis: Localized edema[ICD10: R60.0] Selena Alvarez MD, [facility] CPT-4: 67038 09/17/2016 17346 EST. 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 PATIENT, LEVEL III Diagnosis: Other specified bacterial intestinal infections[ICD10: A04.8] Rox Alvarez MD, [facility] CPT-4: 33183 04/16/2016 33721 EST. PATIENT, LEVEL II Diagnosis: Pain in right foot[ICD10: M79.671] Rox Alvarez MD, [facility] CPT-4: 11458 01/21/2016 69581 EST. PATIENT, LEVEL III Diagnosis: Encounter for therapeutic drug level monitoring[ICD10: Z51.81] Diagnosis: Rash and other nonspecific skin eruption[ICD10: R21] Rox Alvarez MD [facility] CPT-4: 33539 01/10/2016 21437 EST. PATIENT, LEVEL III Diagnosis: Rash and other nonspecific skin eruption[ICD10: R21] Rox Alvarez MD, [facility] CPT-4: 11669 01/07/2016 ([id number]) Miscellaneou s no charge Diagnosis: Cutaneous abscess of left axilla[ICD10: L02.412] Rox Alvarez MD [facility] CPT-4: 07682 01/02/2016 ([id number]) Miscellaneou s no charge Diagnosis: Cutaneous abscess of left axilla[ICD10: L02.412] Rox Alvarez MD, [facility] CPT-4: 65700 01/01/2016 ([id number]) Miscellaneou s no charge Diagnosis: Cutaneous abscess of left axilla[ICD10: L02.412] Rox Alvarez MD, [facility] CPT-4: 42395 12/31/2015 ([id number]) Patient adm itted to the hospital from clinic (NO CHARGE) Diagnosis: Cutaneous abscess of left axilla[ICD10: L02.412] Rox Alvarez MD, [facility] CPT-4: 79823R 12/25/2015 00287 EST. PATIENT, LEVEL III Diagnosis: Encounter for follow-up examination after completed treatment for conditions other than malignant neoplasm[ICD10: Z09] Diagnosis: Diverticulitis of intestine, part unspecified, without perforation or abscess with bleeding[ICD10: K57.93] Diagnosis: Cellulitis of left toe[ICD10: L03.032] Diagnosis: Other obesity due to excess calories[ICD10: E66.09] Diagnosis: Other rotary cutter (current) drug therapy[ICD10: Z79.899] Rox Alvarez MD, [facility] CPT-4: 34187 10/11/2015 ([id number]) Miscellaneou s no charge Diagnosis: Encounter for therapeutic drug level monitoring[ICD10: Z51.81] Diagnosis: Other acute osteomyelitis, left ankle and foot[ICD10: M86.172] [facility] CPT-4: 89306 08/24/2015 37512 EST. PATIENT, LEVEL IV Diagnosis: Cellulitis of left toe[ICD10: L03.032] [facility] CPT-4: 47213 08/20/2015 25908 EST. PATIENT, LEVEL III Diagnosis: Essential (primary) hypertension[ICD10: I10] Diagnosis: Peripheral vascular disease, unspecified[ICD10: I73.9] Diagnosis: Dermatitis, unspecified[ICD10: L30.9] [facility] CPT- 4: 54111 12/28/2014 ([id number]) 04584 EST. [facility] Diagnosis: ESSENTIAL HYPERTENSION[ICD9: 401.9] Diagnosis: PAD (peripheral artery disease)[ICD9: 443.9] Diagnosis: Anticoagulated on Coumadin[ICD9: V58.83] Emy Alvarez MD, [facility] CPT-4: 23033 10/31/2014 ([id number]) 18901 EST. [facility] Diagnosis: PAD (peripheral artery disease)[ICD9: 443.9] Diagnosis: Anticoagulated on Coumadin[ICD9: V58.83] Diagnosis: SCLERITIS[ICD9: 379.00] Diagnosis: ESSENTIAL HYPERTENSION[ICD9: 401.9] [facility] CPT- 4: 35435 10/02/2014 ([id number]) [facility] LEVEL 4 Diagnosis: GOUT[ICD9: 274.9] Diagnosis: COPD (chronic obstructive pulmonary disease)[ICD9: 496] Diagnosis: PAD (peripheral artery disease)[ICD9: 443.9] Diagnosis: ESSENTIAL HYPERTENSION[ICD9: 401.9] [facility] CPT- 4: 27165 09/21/2014 Plan of Care Planned Activity Notes [...] vein specialist. 06/10/2018 Appointment: Rox Luciano WPtel: [address] [place], [place] [phone] (30 min) Complex 06/10/2018 Patient Education: Patient [...] continue PT 03/11/2018 Appointment: Rox Luciano WPtel: [address] [place], [place] [phone] (15 min) Moderate 03/11/2018 Patient Education: Patient Medication Summary Completed 03/11/2018 Appointment: Rox Luciano WPtel: [address] [place], [place] [phone] (30 min) Complex 11/17/2017 Visit Plan: Cellulitis [...] discharge. 08/28/2017 [phone] [facility] ([facility]) Complex 08/28/2017 Patient Education: Patient [...] ADLs independently. 07/20/2017 App[facility]ment[facility] [phone] [facility] ([facility] min) Complex 07/20/2017 Patient Education: Patient Medication Summary Completed 07/20/2017 Referral: Stephanie Silva WPtel: Referral Initiated 05/04/2017 Care Plan: Referral Order SNOMED-CT : [id number] Pending 04/30/2017 Visit Plan: Chronic Depression and [...] pain. 04/21/2017 Appointment: Rox Luciano WPtel: [phone] [facility] (30 min) Complex 04/21/2017 Patient Education: Patient [...] 04/07/2017 App[facility]ment[facility] [phone] [facility] ([facility]) Complex 04/07/2017 Patient Education: Patient Medication Summary Completed 04/07/2017 [facility]ment: [phone] (15 min) Moderate 02/26/2017 Visit Plan: [...] not improving. 01/27/2017 Appointment: Selena Alvarez WPtel: [address] [place], [place] [phone] (15 min) Moderate 01/27/2017 Patient Education: Patient [...] with nystatin 11/25/2016 Appointment: Selena Alvarez WPtel: [address] [place], [place] [phone] (15 min) Moderate 11/25/2016 Appointment: Selena Alvarez WPtel: [address] [place], [place] [phone] (15 min) Moderate 11/25/2016 Patient Education: Patient [...] over-medication. 10/15/2016 Appointment: Selena Alvarez WPtel: [phone] [facility] (15 min) Moderate 10/15/2016 Patient Education: Patient Medication Summary Completed 10/15/2016 Patient Education: Smoking and Tobacco Addiction Completed 10/15/2016 Appointment: Rox Luciano WPtel: [phone] [facility] (30 min) Complex 09/18/2016 Visit Plan: Hypertension [...] PT for mobility evaluation. 08/14/2016 Appointment: Rox uLciano WPtel: [phone] [facility] (30 min) Complex 08/14/2016 Patient Education: Patient [...] stomach pain. 04/16/2016 Appointment: Rox Luciano WPtel[facility] (15 min) Moderate 04/16/2016 Patient Education: Patient Medication Summary Completed 04/16/2016 Patient Education: Smoking and Tobacco Addiction Completed 04/16/2016 Referral: Dr Arboleda Referral Completed 02/14/2016 Care Plan: Referral Order SNOMED-CT : [id number] Pending 01/29/2016 Visit Plan: Right foot pain [...] warmth, discharge. 01/10/2016 Appointment: [phone] [facility] ([facility] min) Complex 01/10/2016 Patient Education: [...] further I&D. 12/25/2015 Appointment: Emy Westbrook WPtel: [phone] [phone] [place] (15 min) Moderate 12/25/2015 Patient Education: [...] management. 10/11/2015 Appointment: [facility]el[facility] [phone] [facility] [place] (30 min) Complex 10/11/2015 Patient Education: Patient Medication Summary Completed 10/11/2015 Patient Education: Smoking and Tobacco Addiction Completed 10/11/2015 Patient Education: Obesity Completed 10/11/2015 Referral: Gavino Navarro they are g oing to call if they get him in before if not we will call Dr shook Initiated 09/27/2015 Appointment: Emy Westbrook WPtel: [phone] (15 min) Moderate 08/24/2015 Patient Education: Patient Medication Summary Completed 08/24/2015 Patient Education: Smoking and Tobacco Addiction Completed 08/24/2015 Patient Education: Patient Medication Summary Completed 08/23/2015 Appointment: Emy Westbrook WPtel: [phone] [phone] (30 min) Complex 08/22/2015 Referral: [facility] Referral Initiated 08/22/2015 Visit Plan: Pt [...] Hypertension Completed 12/28/2014 Appointment: Selena Alvarez WPtel: [facility] Follow up 12/20/2014 Visit Plan: Hypertension - [...] 09/21/2014 Care Plan: Referral Order SNOMED-CT : [id number] Ordered 09/21/2014 Appointment: Selena Alvarez WPtel: [phone] [place] [address] [place] ([place]) New Patient 09/20/2014 Referral: Martinez Wren WPtel: [phone] Referral Initiated Referral: Gavino Navarro Referral Initiated Referral: [facility] WPtel: [address] Referral Initiated Referral: Dr Arboleda Referral [...] check INR on thursday probiotics - culture [facility]. . Gastroenteritis - [...] potassium daily x 5 days let your last dipper know that you are having some swelling. [...]
--- OUTSIDE RECORDS SUMMARY | 2019-08-20 18:19 | XMS REPORT | CCD ---
Author Author Bony Alvarez Organization Selena Alvarez MD, [facility] Address [address] [place] [address] Phone Care Team Providers Care Windows Admin Name Role Phone PP Unavailable CCM Unavailable Summary Purpose Interface Exchange Insurance Providers Payer name Policy type / Coverage type Covered constitution party ID Effective Begin Date Effective End Date [facility] Commercial Insurance [id number] 2017 Unknown Family history Father Diagnosis Age At Onset Hyperlipidemia Unknown Coronary Artery Disease Unknown Stroke Unknown Cancer Unknown Congestive heart failure Unknown Mother Diagnosis Age At Onset Hypertension Unknown kidney disease Unknown Cancer Unknown Stroke Unknown Hyperlipidemia Unknown Coronary Artery Disease Unknown Congestive heart failure Unknown Social History Social History Element Codes Description Effective Dates Tobacco history SNOMED CT: [id number] Current some days smoker 09/21/2014 Allergies, Adverse [...] ICD-9: 300.00 ICD-10: F41.1 Active 04/21/2017 Unknown FDC (current) use of anticoagulants ICD-9: V58.61 ICD-10: [...] V67.59 ICD-10: Z09 Active 10/10/2015 Unknown Other halfway (cur rent) drug therapy ICD-9: V58.69 ICD-10: [...] disorder ICD-9: 300.00 ICD-10: F41.1 04/21/2017 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 [...] ICD-9: V67.59 ICD-10: Z09 10/10/2015 Active Other halfway (cur rent) drug therapy ICD-9: V58.69 ICD-10: [...] 7.5 mg-a cetaminophen 325 mg tablet RxNorm: 847126 1 Tablet(s) PO QID as needed 07/15/2018 08/13/2018 Active Keflex 500 mg capsule RxNorm: 228147 1 Capsule(s) PO TID 06/11/2018 06/17/2018 Inactive Pepcid 20 mg tablet RxNorm: 817475 TAKE ONE TABLET BY MOUTH TWICE A DAY 05/25/2018 09/21/2018 Ac tive hydrocodone 7.5 mg-a cetaminophen 325 mg tablet RxNorm: 863093 1 Tablet(s) PO QID as needed 05/19/2018 06/17/2018 Inactive hydrocodone 7.5 mg-a cetaminophen 325 mg tablet RxNorm: 193587 1 Tablet(s) PO QID as needed 04/19/2018 05/18/2018 Inactive allopurinol 100 mg t ablet RxNorm: 225420 TAKE ONE TABLET BY MO UTH DAILY 04/06/2018 03/01/2019 Ac tive hydrocodone 7.5 mg-a cetaminophen 325 mg tablet RxNorm: 232922 1 Tablet(s) PO QID as needed 03/11/2018 04/09/2018 Inactive potassium chloride E R 20 mEq tablet,extended release RxNorm: 534857 Tablet(s) TAKE ONE TABLET BY MOUTH DAILY WHEN TAKING FUROSEMIDE NEEDED 03/05/2018 08/31/2018 Active gabapentin 300 mg ca psule RxNorm: 463747 TAKE ONE CAPSULE BY M OUTH THREE TIMES A DAY 03/04/2018 02/26/2019 Ac tive hydrocodone 7.5 mg-a cetaminophen 325 mg tablet RxNorm: 491701 1 Tablet(s) PO QID as needed 02/18/2018 03/10/2018 Inactive hydrocodone 7.5 mg-a cetaminophen 325 mg tablet RxNorm: 345050 1 Tablet(s) PO QID as needed 01/19/2018 02/17/2018 Inactive hydrocodone 7.5 mg-a cetaminophen 325 mg tablet RxNorm: 257299 1 Tablet(s) PO QID as needed 12/16/2017 01/14/2018 Inactive Pepcid 20 mg tablet RxNorm: 465620 Tablet(s) TAKE ONE TABLET BY MOUTH TWICE A DAY 12/08/2017 05/06/2018 Inactive hydrocodone 7.5 mg-a cetaminophen 325 mg tablet RxNorm: 840637 1 Tablet(s) PO QID as needed 11/18/2017 12/15/2017 Inactive gabapentin 300 mg ca psule RxNorm: 454582 Capsule(s) TAKE ONE C APSULE BY MOUTH THREE TIMES A DAY 11/11/2017 03/03/2018 Inactive gabapentin 300 mg ca psule RxNorm: 705435 TAKE ONE CAPSULE BY M OUTH THREE TIMES A DAY 11/10/2017 11/10/2017 Inactive hydrocodone 7.5 mg-a cetaminophen 325 mg tablet RxNorm: 388255 1 Tablet(s) PO QID as needed 10/19/2017 11/17/2017 Inactive hydrocodone 7.5 mg-a cetaminophen 325 mg tablet RxNorm: 876570 1 Tablet(s) PO QID as needed 09/16/2017 10/15/2017 Inactive doxycycline hyclate 100 mg capsule RxNorm: 3310056 1 Capsule(s) PO BID 08/28/2017 09/06/2017 In active hydrocodone 7.5 mg-a cetaminophen 325 mg tablet RxNorm: 137483 1 Tablet(s) PO QID as needed 08/21/2017 09/15/2017 Inactive Lexapro 10 mg tablet RxNorm: 380914 TAKE ONE TABLET BY MOUTH AT BEDTIME 08/02/2017 07/27/2018 Ac tive Zyrtec 10 mg tablet RxNorm: 0470394 1 Tablet(s) PO daily 07/20/2017 11/16/2017 Inactive hydrocodone 7.5 mg-a cetaminophen 325 mg tablet RxNorm: 804764 1 Tablet(s) PO QID as needed 07/20/2017 09/15/2017 Inactive furosemide 40 mg tablet RxNorm: 743017 Tablet(s) TAKE ONE TABLET BY MOUTH DAILY NEEDED FOR SWELLING 07/08/2017 01/03/2018 Inactive Pepcid 20 mg tablet RxNorm: 354227 TAKE ONE TABLET BY MOUTH TWICE A DAY 06/29/2017 11/25/2017 In active gabapentin 300 mg ca psule RxNorm: 076682 TAKE ONE CAPSULE BY M OUTH THREE TIMES A DAY 06/29/2017 10/26/2017 Inactive hydrocodone 7.5 mg-a cetaminophen 325 mg tablet RxNorm: 670304 1 Tablet(s) PO QID as needed 06/18/2017 07/17/2017 Inactive hydrocodone 7.5 mg-a cetaminophen 325 mg tablet RxNorm: 612723 1 Tablet(s) PO QID as needed 05/18/2017 06/16/2017 Inactive hydrocodone 7.5 mg-a cetaminophen 325 mg tablet RxNorm: 427598 1 Tablet(s) PO QID as needed 04/21/2017 05/17/2017 Inactive hyoscyamine 0.125 mg sublingual tablet RxNorm: 0397786 1 Tablet(s) SL TID a s needed 04/21/2017 04/25/2017 In active Lexapro 10 mg tablet RxNorm: 787273 1 Tablet(s) PO QHS 04/21/2017 07/19/2017 Inactive Flagyl 500 mg tablet RxNorm: 170925 1 Tablet(s) PO TID 04/07/2017 04/16/2017 Inactive Lexapro 10 mg tablet RxNorm: 053879 1 Tablet(s) PO QHS 04/07/2017 04/20/2017 Inactive hydrocodone 7.5 mg-a cetaminophen 325 mg tablet RxNorm: 579138 1 Tablet(s) PO QID as needed 03/24/2017 04/20/2017 Inactive allopurinol 100 mg t ablet RxNorm: 629915 TAKE ONE TABLET BY MO [facility] DAILY 03/10/2017 03/04/2018 In active hydrocodone 7.5 mg-a cetaminophen 325 mg tablet RxNorm: 322277 1 Tablet(s) PO QID as needed 02/11/2017 03/12/2017 Inactive gabapentin 300 mg ca psule RxNorm: 951829 TAKE ONE CAPSULE BY [facility] THREE TIMES A DAY 02/02/2017 06/28/2017 Inactive Zofran ODT 4 mg disi ntegrating tablet RxNorm: 062300 1 Tablet(s) PO QID as needed nausea and vomitting 01/27/2017 No Stop Date Active hydrocodone 7.5 mg-a cetaminophen 325 mg tablet RxNorm: 066993 1 Tablet(s) PO QID as needed 01/13/2017 02/10/2017 Inactive potassium chloride E R 20 mEq tablet,extended release RxNorm: 041048 TAKE ONE TABLET BY MOUTH DAILY WHEN TAKING FUROSEMIDE NEEDED 01/12/2017 07/10/2017 Inactive furosemide 40 mg tablet RxNorm: 942788 TAKE ONE TABLET BY MOUTH DAILY NEEDED FOR SWELLING 01/12/2017 07/09/2017 Inactive promethazine 25 mg t ablet RxNorm: 685760 TAKE ONE TABLET BY [facility] THREE TIMES A DAY NEEDED FOR NAUSEA AND VOMITING 01/12/2017 01/31/2017 Inactive promethazine 25 mg t ablet RxNorm: 924521 1 Tablet(s) PO TID as needed nausea and vomitting 01/06/2017 01/11/2017 Inactive Lomotil 2.5 mg-0.025 mg tablet RxNorm: 1345634 1-2 Tablet(s) PO BID as needed diarrhea 01/06/2017 01/05/2017 Inactive Lomotil 2.5 mg-0.025 mg tablet RxNorm: 8584563 1-2 Tablet(s) PO BID as needed diarrhea 01/06/2017 01/07/2017 Inactive Pepcid 20 mg tablet RxNorm: 643700 1 Tablet(s) PO BID 12/19/2016 06/16/2017 Inactive Pepcid 20 mg tablet RxNorm: 793024 1 Tablet(s) PO BID 12/16/2016 12/18/2016 Inactive hydrocodone 7.5 mg-a cetaminophen 325 mg tablet RxNorm: 803405 1 Tablet(s) PO QID as needed 12/16/2016 01/12/2017 Inactive hydrocodone 7.5 mg-a cetaminophen 325 mg tablet RxNorm: 999900 1 Tablet(s) PO QID as needed 11/18/2016 12/15/2016 Inactive allopurinol 100 mg t ablet RxNorm: 938079 TAKE ONE TABLET BY [facility] DAILY 10/29/2016 02/25/2017 In active hydrocodone 7.5 mg-a cetaminophen 325 mg tablet RxNorm: 198988 1 Tablet(s) PO QID as needed 10/15/2016 11/13/2016 Inactive nystatin 100,000 uni t/gram topical cream RxNorm: 710514 1 Gram(s) TOP QID 10/15/2016 11/25/2016 In active nystatin 100,000 uni t/gram topical powder RxNorm: 497741 1 Gram(s) TOP TID TO GROIN OR AFFECTED AREA 10/14/2016 No Stop Date Active hydrocodone 7.5 mg-a cetaminophen 325 mg tablet RxNorm: 654133 1 Tablet(s) PO QID as needed 09/17/2016 10/14/2016 Inactive furosemide 40 mg tablet RxNorm: 601465 1 Tablet(s) PO daily as needed swelling 09/17/2016 01/11/2017 In active potassium chloride E R 20 mEq tablet,extended release RxNorm: 344162 1 Tablet(s) PO daily as needed take when taking a lasix pill 09/17/2016 01/11/2017 Inactive Levaquin 500 mg tablet RxNorm: 755328 1 Tablet(s) PO daily 09/17/2016 09/21/2016 Inactive hydrocodone 7.5 mg-a cetaminophen 325 mg tablet RxNorm: 495367 1 Tablet(s) PO QID as needed 08/14/2016 09/12/2016 Inactive cyclobenzaprine 5 mg tablet RxNorm: 232178 1 Tablet(s) PO TID as needed 07/25/2016 07/29/2016 In active cyclobenzaprine 5 mg tablet RxNorm: 523698 1 Tablet(s) PO TID as needed 07/25/2016 07/24/2016 In active hydrocodone 7.5 mg-a cetaminophen 325 mg tablet RxNorm: 991494 1 Tablet(s) PO QID as needed 07/21/2016 08/13/2016 Inactive warfarin 1 mg tablet RxNorm: 789182 TAKE ONE TABLET BY MOUTH EVERY EVENING 06/26/2016 08/04/2016 In active hydrocodone 7.5 mg-a cetaminophen 325 mg tablet RxNorm: 483871 1 Tablet(s) PO QID as needed 06/24/2016 07/20/2016 Inactive hydrocodone 5 mg-yanira taminophen 325 mg tablet RxNorm: 729563 1 Tablet(s) PO Q6 as needed for pain 06/09/2016 06/10/2016 Inactive warfarin 1 mg tablet RxNorm: 416865 TAKE ONE TABLET BY MOUTH EVERY EVENING 06/02/2016 06/21/2016 In active allopurinol 100 mg t ablet RxNorm: 927301 TAKE ONE TABLET BY [facility] DAILY 05/21/2016 10/17/2016 In active hydrocodone 7.5 mg-a cetaminophen 325 mg tablet RxNorm: 331261 1 Tablet(s) PO QID as needed 05/09/2016 06/07/2016 Inactive gabapentin 300 mg ca psule RxNorm: 058054 Capsule(s) TAKE ONE C APSULE BY MOUTH THREE TIMES A DAY 04/25/2016 11/09/2017 Inactive promethazine 25 mg t ablet RxNorm: 933982 TAKE ONE TABLET BY MO [facility] THREE TIMES A DAY NEEDED 2016 05/01/2016 Inactive warfarin 1 mg tablet RxNorm: 818865 TAKE ONE TABLET BY MOUTH EVERY EVENING 2016 05/31/2016 In active promethazine 25 mg t ablet RxNorm: 717127 1 Tablet(s) PO TID as needed 04/16/2016 04/21/2016 In active warfarin 1 mg tablet RxNorm: 680520 TAKE ONE TABLET BY MOUTH EVERY EVENING 02/13/2016 04/12/2016 In active magnesium oxide 400 mg tablet RxNorm: 040625 TAKE ONE TABLET BY MO [place] TWICE A DAY 02/07/2016 01/01/2017 In active hydrocodone 5 mg-yanira taminophen 325 mg tablet RxNorm: 043201 1 Tablet(s) PO Q6 as needed for pain 01/21/2016 02/19/2016 Inactive warfarin 1 mg tablet RxNorm: 697155 TAKE ONE TABLET BY MOUTH EVERY EVENING 01/17/2016 02/05/2016 In active gabapentin 300 mg ca psule RxNorm: 729116 Capsule(s) TAKE ONE C APSULE BY MOUTH THREE TIMES A DAY 01/11/2016 04/24/2016 Inactive prednisone 10 mg tablet RxNorm: 846083 Tablet(s) PO UD 01/10/2016 03/08/2018 Inactive 60mg x2 days, then 50mg x2 days, then 40mg x2 days, 30mg x2 days, 20mg x2 days, 10mg x2days, 5mg every other day x 2 doses Kenalog 40 mg/mL cassius pension for injection RxNorm: 2211725 Milliliter(s) Inj 01/07/2016 01/07/2016 In active warfarin 1 mg tablet RxNorm: 728274 TAKE ONE TABLET BY MOUTH EVERY EVENING 01/01/2016 01/16/2016 In active hydrocodone 5 mg-yanira taminophen 325 mg tablet RxNorm: 681222 1 Tablet(s) PO Q6 as needed for pain 01/01/2016 01/15/2016 Inactive gabapentin 300 mg ca psule RxNorm: 714182 TAKE ONE CAPSULE BY M OUT THREE TIMES A DAY 12/12/2015 01/10/2016 Inactive warfarin 5 mg tablet RxNorm: 213362 1 Tablet(s) PO daily 12/05/2015 No Stop Date Active warfarin 1 mg tablet RxNorm: 873632 TAKE ONE TABLET BY MOUTH EVERY EVENING 11/13/2015 12/22/2015 In active hydrocodone 5 mg-yanira taminophen 325 mg tablet RxNorm: 599683 1 Tablet(s) PO Q6 as needed for pain 10/26/2015 11/09/2015 Inactive allopurinol 100 mg t ablet RxNorm: 083607 1 Tablet(s) PO daily TAKE ONE TABLET BY MOUTH DAILY 10/18/2015 04/14/2016 Inactive hydrocodone 5 mg-yanira taminophen 325 mg tablet RxNorm: 606391 1 Tablet(s) PO Q6 as needed for pain 09/26/2015 10/10/2015 Inactive gabapentin 300 mg ca psule RxNorm: 281780 TAKE ONE CAPSULE BY M OUTH THREE TIMES A DAY 09/14/2015 12/11/2015 Inactive warfarin 1 mg tablet RxNorm: 174017 1 Tablet(s) PO QPM 09/14/2015 11/12/2015 Inactive hydrocodone 5 mg-yanira taminophen 325 mg tablet RxNorm: 196928 1 Tablet(s) PO Q6 as needed for pain 09/12/2015 09/25/2015 Inactive hydrocodone 5 mg-yanira taminophen 325 mg tablet RxNorm: 719668 1 Tablet(s) PO Q6 as needed for pain 08/22/2015 09/05/2015 Inactive Bactrim DS 800 mg-16 0 mg tablet RxNorm: 438158 1 Tablet(s) PO BID 08/20/2015 09/02/2015 Inactive magnesium oxide 400 mg tablet RxNorm: 504155 TAKE ONE TABLET BY MO UTH TWICE A DAY 01/20/2015 01/14/2016 In active gabapentin 300 mg ca psule RxNorm: 354881 TAKE ONE CAPSULE BY M OUTH THREE TIMES A DAY 01/20/2015 05/19/2015 Inactive magnesium oxide 400 mg tablet RxNorm: 515546 1 Tablet(s) PO BID 01/17/2015 05/16/2015 Inactive gabapentin 300 mg ca psule RxNorm: 137872 1 Capsule(s) PO TID 01/17/2015 05/16/2015 Inactive allopurinol 100 mg t ablet RxNorm: 782564 TAKE ONE TABLET BY MO UTH DAILY 10/18/2014 10/12/2015 In active Kenalog 40 mg/mL cassius pension for injection RxNorm: 7534132 1 Milliliter(s) Inj 09/21/2014 09/21/2014 In active allopurinol 100 mg t ablet RxNorm: 055417 1 Tablet(s) PO daily 09/21/2014 10/17/2014 Inactive gabapentin 300 mg ca psule RxNorm: 193985 1 Capsule(s) PO TID 09/12/2014 01/09/2015 Inactive gabapentin 300 mg ca psule RxNorm: 147640 1 Capsule(s) PO TID 09/12/2014 09/11/2014 Inactive magnesium oxide 400 mg tablet RxNorm: 006057 1 Tablet(s) PO BID 09/12/2014 01/09/2015 Inactive magnesium oxide 400 mg tablet RxNorm: 880546 1 Tablet(s) PO BID 09/12/2014 09/11/2014 Inactive lisinopril 5 mg tablet RxNorm: 134153 1 Tablet(s) PO daily No Start Date Active atorvastatin oral RxNorm: 11712 oral No Start Date Active Coreg 6.25 mg tablet RxNorm: 231393 1 Tablet(s) PO BID No Start Date Active Combivent Respimat 2 0 mcg-100 mcg/actuation solution for inhalation RxNorm: 6185963 1 Puff(s) INH as needed No Start Date Active Ventolin Refill 90 m cg/actuation aerosol inhaler RxNorm: 378876 2 INH as needed No Start Date Active Centrum Silver Women oral RxNorm: [address] art Date Active aspirin 81 mg capsul e,delayed release RxNorm: 625875 1 Capsule(s) PO daily No Start Date Active nystatin 100,000 uni t/gram topical powder RxNorm: 367438 1 Gram(s) TOP TID No Start Date 10/13/2016 Inactive warfarin 1 mg tablet RxNorm: 291388 oral No Start Date 09/13/2015 Inactive Pepcid 20 mg tablet RxNorm: 586554 1 Tablet(s) PO BID No Start Date 12/15/2016 Inactive Protonix 40 mg table t,delayed release RxNorm: 187060 1 Tablet(s) PO daily No Start Date 09/16/2016 Inactive warfarin 5 mg tablet RxNorm: 412537 1 Tablet(s) PO daily 1.5 tabs on Tue No Start Date 12/04/2015 Inactive minocycline 50 mg ca psule RxNorm: 374922 1 Capsule(s) PO BID o rdered by Dr. Saravia No Start Date 03/08/2018 Inactive furosemide 40 mg tablet RxNorm: 813610 1 Tablet(s) PO daily No Start Date 09/16/2016 Inactive Medication Administered Medication Codes Instruc tions Start Date Status Kenalog 40 mg/mL suspension for injection RxNorm: 1209677 Milliliter 01/07/2016 No longer Active Kenalog 40 mg/mL suspension for injection RxNorm: 1518793 1Milliliter 09/21/2014 N o longer Active Immunizations No Immunization data Assessments Condition Codes Effectiv e Dates Localized edema ICD-10: R60.0 ICD-9: 782.3 06/10/2018 Varicose veins of right lower extremity with pain ICD-10: I83.811 ICD-9: 454.8 06/10/2018 Chronic pain syndrome ICD-10: G89.4 ICD-9: 338.4 03/11/2018 FDC (current) use of anticoagulants ICD-10: Z79.01 ICD-9: [...] neoplasm ICD-10: Z09 ICD-9: V67.59 10/11/2015 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 ICD-9: V58.69 [...] Item Item Code Result Date Comp Metabolic Kza458 NA 136 mEq/L 03/11/2018 Comp Metabolic Oxa441 K 4.3 mEq/L 03/11/2018 Comp Metabolic Hzz745 CL 101 mEq/L 03/11/2018 Comp Metabolic Ouy260 CO2 27.0 mEq/L 03/11/2018 Comp Metabolic Lqf171 AN ION GAP 12 03/11/2018 Comp Metabolic Izu204 GL UCOSE 87 mg/dL 03/11/2018 Comp Metabolic Uqo218 Cr eat 1.0 mg/dL 03/11/2018 Comp Metabolic Rgm981 eG FR 79 ml/min/1.73m2 03/11 Comp Metabolic Nrn756 BUN 12 mg/dL 03/11/2018 Comp Metabolic Mzl696 B/ C Ratio 12.1 Ratio 03/11/2018 Comp Metabolic Xhy396 CA LCIUM 8.9 mg/dL 03/11/2018 Comp Metabolic Xsu026 AL K PHOS 106 U/L 03/11/2018 Comp Metabolic Kla882 T(SGOT) 16 U/L 03/11/2018 Comp Metabolic Zcl150 AL T(SGPT) 11 U/L 03/11/2018 Comp Metabolic Env620 BI LI T 0.4 mg/dL 03/11/2018 Comp Metabolic Fvf282 AL BUMIN 3.8 g/dL 03/11/2018 Comp Metabolic Ahm885 TP RO 6.5 g/dL 03/11/2018 Comp Metabolic Qbc300 GL OB 2.7 g/dL 03/11/2018 Comp Metabolic Fhj880 A/ G Ratio 1.4 Ratio 03/11/2018 Comp Metabolic Fqj444 Os mo 271 mOsmo 03/11/2018 Cbc With [...] 29.8 pg 03/11/2018 Cbc With Differential Ord2 [place]% 11.3 % 03/11/2018 Cbc With Differential Ord2 [...] 2.87 K/ul 03/11/2018 Cbc With Differential Ord2 [place] ABS# 1.1 K/ul 03/11/2018 Cbc With Differential Ord2 Eos ABS# 0.4 K/ul 03/11/2018 Cbc With Differential Ord2 Baso ABS# 0.0 K/ul 03/11/2018 Pt Aox3185 PT 31.3 seconds 03/11/2018 Pt Lgh7304 INR 3.1 03/11/2018 Pt Cno2762 Low Intensity - 1.5-2.0 03/11/2018 Pt Inh6958 Mod intensity - 2.0-3.0 03/11/2018 Pt Znh8321 Hi intensity - 3.0-4.0 03/11/2018 Tsh Ord6 TSH (3rd IS) 2.01 uIU/mL 03/11/2018 Shiga Toxin 1 & 2 Eia Stool [id number] SHIGA TOXIN 1: NEGATIVE 04/12/2017 Shiga Toxin 1 & 2 Eia Stool [id number] SHIGA TOXIN 2: NEGATIVE 04/12/2017 Culture Stool [id number] STO OL CULTURE SEE NOTES 04/12/2017 Clostridium Diff Tox A/B Pmw724 Cdiff Negative 04/09/2017 Pt Jhw5911 PT 64.8 seconds 01/10/2016 Pt Joh3128 INR 8.6 01/10/2016 Pt Cnz6299 Low Intensity - 1.5-2.0 01/10/2016 Pt Njw3238 Mod intensity - 2.0-3.0 01/10/2016 Pt Ryi7751 Hi intensity - 3.0-4.0 01/10/2016 Pt Ofz2760 PT 32.1 seconds 11/01/2014 Pt Phf5731 INR 3.2 11/01/2014 Pt Cke5031 Low Intensity - 1.5-2.0 11/01/2014 Pt Wns0848 Mod intensity - 2.0-3.0 11/01/2014 Pt Qgp0726 Hi intensity - 3.0-4.0 11/01/2014 Pt Otl2197 PT 30.2 seconds 10/03/2014 Pt Ekd7749 INR 3.0 10/03/2014 Pt Gfy2712 Low Intensity - 1.5-2.0 10/03/2014 Pt Ltv7917 Mod intensity - 2.0-3.0 10/03/2014 Pt Bbm3332 Hi intensity - 3.0-4.0 10/03/2014 D-Dimer D-DIMER 475 NG/ML 09/25/2014 D-Dimer COMMENT 09/25/2014 Magnesium Ord90 Mag 1.1 Result Verified By Repeat Analysis mg/dL 09/22/2014 Pt Cbb2460 PT 32.0 seconds 09/22/2014 Pt Xaq0047 INR 3.2 09/22/2014 Pt Jsz5223 Low Intensity - 1.5-2.0 09/22/2014 Pt Rah1788 Mod intensity - 2.0-3.0 09/22/2014 Pt Zqs9596 Hi intensity - 3.0-4.0 09/22/2014 Comp Metabolic Jwt710 NA 137 mEq/L 09/22/2014 Comp Metabolic Nyp909 K 4.2 mEq/L 09/22/2014 Comp Metabolic Fsn553 CL 102 mEq/L 09/22/2014 Comp Metabolic Mho596 CO2 25.0 mEq/L 09/22/2014 Comp Metabolic Ffq216 AN ION GAP 14 09/22/2014 Comp Metabolic Lgd411 GL UCOSE 94 mg/dL 09/22/2014 Comp Metabolic Und956 Cr eat 0.8 mg/dL 09/22/2014 Comp Metabolic Ejd472 eG FR 102 ml/min/1.73m2 09/06 Comp Metabolic Zny747 BUN 15 mg/dL 09/22/2014 Comp Metabolic Ncv175 B/ C Ratio 18.8 Ratio 09/22/2014 Comp Metabolic Zdz126 CA LCIUM 9.4 mg/dL 09/22/2014 Comp Metabolic Dvd085 AL K PHOS 65 U/L 09/22/2014 Comp Metabolic Wli185 T(SGOT) 15 U/L 09/22/2014 Comp Metabolic Pik207 AL T(SGPT) 8 U/L 09/22/2014 Comp Metabolic Vvd478 BI LI T 0.4 mg/dL 09/22/2014 Comp Metabolic Kfy898 AL BUMIN 4.0 g/dL 09/22/2014 Comp Metabolic Mge172 TP RO 6.8 g/dL 09/22/2014 Comp Metabolic Azg449 GL OB 2.8 g/dL 09/22/2014 Comp Metabolic Xxd234 A/ G Ratio 1.4 Ratio 09/22/2014 Comp Metabolic Sci778 Os mo 274 mOsmo 09/22/2014 C-Reactive Protein [...] Procedure Codes Date THER/PROPH/DIAG INJ SC/IM CPT-4: 62567 08/28/2017 ROCEPHIN, PER 250 MG CPT-4: J0696 08/28/2017 TOBACCO-USE DRAFTER PATENT 3-[address]: 693556608 CPT-4: G0436 01/27/2017 TOBACCO-USE DRAFTER PATENT 3-[address]: 102967267 CPT-4: G0436 11/25/2016 TOBACCO-USE DRAFTER PATENT 3-[address]: 165331883 CPT-4: G0436 10/15/2016 TOBACCO-USE DRAFTER PATENT 3-[address]: 655210825 CPT-4: G0436 09/17/2016 THER/PROPH/DIAG INJ SC/IM CPT-4: 45451 01/07/2016 TRIAMCINOLONE ACET I [place] NOS CPT-4: J3301 01/07/2016 TRIAMCINOLONE ACET I [place] NOS CPT-4: J3301 09/21/2014 THER/PROPH/DIAG INJ SC/IM CPT-4: 05172 09/21/2014 Vital Signs Date Vital 06/10/2018 Blood Pressure 1: 122/60 Code: 8480-6 BMI: 31.4 Code: 29851-0 Heart Rate 1: 75 bpm Height: 5'3" SpO2: 98% Weight: 177 lbs 03/11/2018 Blood Pressure 1: 134/82 Code: 8480-6 BMI: 32.8 Code: 43353-3 Heart Rate 1: 65 bpm Height: 5'3" SpO2: 96% Weight: 185 lbs 08/28/2017 Blood Pressure 1: 138/72 Code: 8480-6 Heart Rate 1: 80 bpm Height: SpO2: 98% Weight: 07/20/2017 Blood Pressure 1: 134/76 Code: 8480-6 BMI: 29.6 Code: 20306-4 Heart Rate 1: 82 bpm Height: 5'3" [...] 1: 128/78 Code: 8480-6 BMI: 33.3 Code: 90485-8 Heart Rate 1: 72 bpm Height: 5'3" SpO2: 97% Weight: 188 lbs 01/10/2016 Blood Pressure 1: 132/76 Code: 8480-6 BMI: 33.1 Code: 90459-0 Heart Rate 1: 72 bpm Height: 5'3" SpO2: 97% Weight: 187 lbs 12/25/2015 Blood Pressure 1: 154/82 Code: 8480-6 BMI: 33.1 Code: 73269-2 Heart Rate 1: 72 bpm Height: 5'3" SpO2: 97% Weight: 187 lbs 10/11/2015 Blood Pressure 1: 110/62 Code: 8480-6 BMI: 34.7 Code: 90811-4 Heart Rate 1: 70 bpm Height: 5'3" SpO2: 93% Weight: 196 lbs 08/24/2015 Blood Pressure 1: 132/62 Code: 8480-6 BMI: 35.3 Code: 50945-3 Heart Rate 1: 62 bpm Height: 5'3" SpO2: 93% Weight: 199 lbs 08/20/2015 Blood Pressure 1: 140/68 Code: 8480-6 BMI: 35.3 Code: 25601-9 Heart Rate 1: 74 bpm Height: 5'3" SpO2: 96% Weight: 199 lbs 12/28/2014 Blood Pressure 1: 130/72 Code: 8480-6 BMI: 33.1 Code: 78066-1 Heart Rate 1: 60 bpm Height: 5'3" SpO2: 97% Weight: 187 lbs 10/31/2014 Blood Pressure 1: 118/72 Code: 8480-6 BMI: 31.2 Code: 16043-3 Heart Rate 1: 58 bpm Height: 5'3" SpO2: 98% Weight: 176 lbs 10/02/2014 Blood Pressure 1: 138/74 Code: 8480-6 BMI: 30.6 Code: 83554-6 Heart Rate 1: 72 bpm Height: 5'3" Weight: 173 lbs 09/21/2014 Blood Pressure 1: 138/72 Code: 8480-6 BMI: 30.5 Code: 70009-0 Heart Rate 1: 60 bpm Height: 5'3" [...] daily 12/25/2015 None Hospital Follow Up _ Oth er: diverticulitis 10/11/2015 None Hospital Follow Up [...] No Advance Directive data Encounters Encounter Performer Isabela cunningham Codes Date [id number] EST. PATIENT, LEVEL III Diagnosis: Localized edema[ICD10: R60.0] Diagnosis: Varicose veins of right lower extremity with pain[ICD10: I83.811] Rox Alvarez MD, [facility] CPT-4: 91984 06/10/2018 [id number] EST. 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 PATIENT, LEVEL III Diagnosis: Cellulitis of left axilla[ICD10: L03.112] Diagnosis: Cellulitis of right axilla[ICD10: L03.111] Rox Alvarez MD, [facility] CPT-4: 44003 08/28/2017 [id number] EST. 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 PATIENT, LEVEL IV Diagnosis: Generalized anxiety disorder[ICD10: F41.1] Diagnosis: Major depressive disorder, single episode, moderate[ICD10: F32.1] Diagnosis: Diarrhea, unspecified[ICD10: R19.7] Rox Alvarez MD, [facility] CPT-4: 26859 04/21/2017 [id number] EST. PATIENT, LEVEL IV Diagnosis: Generalized anxiety disorder[ICD10: F41.1] Diagnosis: Major depressive disorder, single episode, moderate[ICD10: F32.1] Diagnosis: Nausea[ICD10: R11.0] Diagnosis: Diarrhea, unspecified[ICD10: R19.7] Rox Alvarez MD, [facility] CPT-4: 84400 04/07/2017 ([id number]) [id number] EST. P ATIENT, LEVEL IV Diagnosis: Essential (primary) hypertension[ICD10: I10] Diagnosis: Nausea[ICD10: R11.0] Diagnosis: Other fecal abnormalities[ICD10: R19.5] Diagnosis: Tobacco use[ICD10: Z72.0] Selena Alvarez MD, [facility] CPT-4: 81167 01/27/2017 ([id number]) [id number] EST. P ATIENT, LEVEL III Diagnosis: Essential (primary) hypertension[ICD10: I10] Diagnosis: Chronic obstructive pulmonary disease, unspecified[ICD10: J44.9] Diagnosis: Rash and other nonspecific skin eruption[ICD10: R21] Selena Alvarez MD, [facility] CPT-4: 65106 11/25/2016 ([id number]) 09990 EST. P ATIENT, LEVEL III Diagnosis: Other sites of candidiasis[ICD10: B37.89] Selena Alvarez MD, [facility] CPT-4: 15664 10/15/2016 ([id number]) 63290 EST. P ATIENT, LEVEL IV Diagnosis: Essential (primary) hypertension[ICD10: I10] Diagnosis: Urinary tract infection, site not specified[ICD10: N39.0] Diagnosis: Localized edema[ICD10: R60.0] Selena Alvarez MD, [facility] CPT-4: 69081 09/17/2016 [id number] EST. 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 PATIENT, LEVEL III Diagnosis: Other specified bacterial intestinal infections[ICD10: A04.8] Rox Alvarez MD, [facility] CPT-4: 17293 04/16/2016 96953 EST. PATIENT, LEVEL II Diagnosis: Pain in right foot[ICD10: M79.671] Rox Alvarez MD, [facility] CPT-4: 67209 01/21/2016 84211 EST. PATIENT, LEVEL III Diagnosis: Encounter for therapeutic drug level monitoring[ICD10: Z51.81] Diagnosis: Rash and other nonspecific skin eruption[ICD10: R21] Rox Alvarez MD [facility] CPT-4: 57847 01/10/2016 15853 EST. PATIENT, LEVEL III Diagnosis: Rash and other nonspecific skin eruption[ICD10: R21] DANIELA Nixon MD CPT-4: 41488 01/07/2016 ([id number]) Miscellaneou s no charge Diagnosis: Cutaneous abscess of left axilla[ICD10: L02.412] DANIELA Nixon MD CPT-4: 06252 01/02/2016 ([id number]) Miscellaneou s no charge Diagnosis: Cutaneous abscess of left axilla[ICD10: L02.412] Rox Alvarez MD [facility] CPT-4: 81687 01/01/2016 ([id number]) Miscellaneou s no charge Diagnosis: Cutaneous abscess of left axilla[ICD10: L02.412] Rox Alvarez MD [facility] CPT-4: 14073 12/31/2015 ([id number]) Patient adm itted to the hospital from clinic (NO CHARGE) Diagnosis: Cutaneous abscess of left axilla[ICD10: L02.412] Rox Alvarez MD [facility] CPT-4: 10106C 12/25/2015 16503 EST. PATIENT, LEVEL III Diagnosis: Encounter for follow-up examination after completed treatment for conditions other than malignant neoplasm[ICD10: Z09] Diagnosis: Diverticulitis of intestine, part unspecified, without perforation or abscess with bleeding[ICD10: K57.93] Diagnosis: Cellulitis of left toe[ICD10: L03.032] Diagnosis: Other obesity due to excess calories[ICD10: E66.09] Diagnosis: Other halfway (current) drug therapy[ICD10: Z79.899] Rox Alvarez MD [facility] CPT-4: 38999 10/11/2015 ([id number]) Miscellaneou s no charge Diagnosis: Encounter for therapeutic drug level monitoring[ICD10: Z51.81] Diagnosis: Other acute osteomyelitis, left ankle and foot[ICD10: M86.172] Rox Alvarez MD, [facility] CPT-4: 20478 08/24/2015 55450 EST. PATIENT, LEVEL IV Diagnosis: Cellulitis of left toe[ICD10: L03.032] Rox Alvarez MD, [facility] CPT-4: 44663 08/20/2015 98965 EST. PATIENT, LEVEL III Diagnosis: Essential (primary) hypertension[ICD10: I10] Diagnosis: Peripheral vascular disease, unspecified[ICD10: I73.9] Diagnosis: Dermatitis, unspecified[ICD10: L30.9] Rox Alvarez MD, [facility] CPT- 4: 01188 12/28/2014 ([id number]) 69397 EST. P ATIENT, LEVEL III Diagnosis: ESSENTIAL HYPERTENSION[ICD9: 401.9] Diagnosis: PAD (peripheral artery disease)[ICD9: 443.9] Diagnosis: Anticoagulated on Coumadin[ICD9: V58.83] Emy Alvarez MD, [facility] CPT-4: 10628 10/31/2014 ([id number]) 80980 EST. P ATIENT, LEVEL III Diagnosis: PAD (peripheral artery disease)[ICD9: 443.9] Diagnosis: Anticoagulated on Coumadin[ICD9: V58.83] Diagnosis: SCLERITIS[ICD9: 379.00] Diagnosis: ESSENTIAL HYPERTENSION[ICD9: 401.9] Selena Alvarez MD, [facility] CPT- 4: 06637 10/02/2014 ([id number]) [facility] - LEVEL 4 Diagnosis: GOUT[ICD9: 274.9] Diagnosis: COPD (chronic obstructive pulmonary disease)[ICD9: 496] Diagnosis: PAD (peripheral artery disease)[ICD9: 443.9] Diagnosis: ESSENTIAL HYPERTENSION[ICD9: 401.9] Selena Alvarez MD, [facility] CPT- 4: 00834 09/21/2014 Plan of Care Planned Activity Notes [...] specialist. 06/10/2018 Appointment: Rox Luciano WPtel: [facility]0 [facility] (30 min) Complex 06/10/2018 Patient Education: [...] PT 03/11/2018 Appointment: Rox Luciano WPtel: [facility] (15 min) Moderate 03/11/2018 Patient Education: Patient Medication Summary Completed 03/11/2018 Appointment: Rox Luciano WPtel: [facility]7 [facility] (30 min) Complex 11/17/2017 Visit Plan: [...] discharge. 08/28/2017 Appointment: Rox Luciano WPtel: [facility] [place] (30 min) Complex 08/28/2017 Patient Education: Patient [...] ADLs independently. 07/20/2017 Appointment: Rox Luciano WPtel: [address] [place], [place] [address] (30 min) [facility] 07/20/2017 Patient Education: Patient Medication Summary Completed 07/20/2017 Referral: Stephanie Silva WPtel: Referral Initiated 05/04/2017 Care Plan: Referral Order SNOMED-CT : [id number] Pending 04/30/2017 Visit Plan: Chronic Depression and [...] stomach pain. 04/21/2017 Appointment: Rox Luciano WPtel: [phone] [facility] (30 min) Complex 04/21/2017 Patient Education: Patient [...] stomach pain. 04/07/2017 Appointment: Rox Luciano WPtel: [phone] [facility] (30 min) Complex 04/07/2017 Patient Education: Patient Medication Summary Completed 04/07/2017 Appointment: Selena Alvarez WPtel: [phone] [facility] (15 min) Moderate 02/26/2017 Visit Plan: Hypertension [...] improving. 01/27/2017 Appointment: Selena Alvarez WPtel: [phone] [facility] (15 min) Moderate 01/27/2017 Patient Education: Patient [...] with nystatin 11/25/2016 Appointment: Selena Alvarez WPtel: [facility]5 [facility] (15 min) Moderate 11/25/2016 Appointment: Selena Alvarez WPtel: [address] [place], [place] [phone] (15 min) Moderate 11/25/2016 Patient Education: Patient [...] over-medication. 10/15/2016 Appointment: Selena Alvarez WPtel: [phone] [facility] (15 min) Moderate 10/15/2016 Patient Education: Patient Medication Summary Completed 10/15/2016 Patient Education: Smoking and Tobacco Addiction Completed 10/15/2016 [phone] ([facility] 09/18/2016 Visit Plan: [...] evaluation. 08/14/2016 App[facility]ment[phone] ([facility] min) Complex 08/14/2016 Patient Education: [...] stomach pain. 04/16/2016 App[facility]ment: [phone] ([facility] min) Moderate 04/16/2016 Patient Education: Patient Medication Summary Completed 04/16/2016 Patient Education: Smoking and Tobacco Addiction Completed 04/16/2016 Referral: Dr Arboleda Referral Completed 02/14/2016 Care Plan: Referral Order SNOMED-CT : [id number] Pending 01/29/2016 Visit Plan: Right foot pain [...] warmth, discharge. 01/10/2016 Appointment[facility]el[phone] ([facility]) Complex 01/10/2016 Patient Education: [...] further I&D. 12/25/2015 Appointment: Emy Westbrook WPtel: [address] [place], [place] [phone] (15 min) Moderate 12/25/2015 Patient Education: Patient [...] continue with wound care management. 10/11/2015 Appointment: Rxo Luciano WPtel[facility] ([facility] min) Complex 10/11/2015 Patient Education: Patient Medication Summary Completed 10/11/2015 Patient Education: Smoking and Tobacco Addiction Completed 10/11/2015 Patient Education: Obesity Completed 10/11/2015 Referral: Gavino Navarro they are g oing to call if they get him in before if not we will call Dr shook Initiated 09/27/2015 Appointment: [facility] Westbrook [facility]el[phone] (15 min) Moderate 08/24/2015 Patient Education: Patient Medication Summary Completed 08/24/2015 Patient Education: Smoking and Tobacco Addiction Completed 08/24/2015 Patient Education: Patient Medication Summary Completed 08/23/2015 Appointment: Emy Westbrook WPtel: [phone] [phone] (30 min) Complex 08/22/2015 Referral: [facility] WPtel: 1 [facility]66[facility] Referral Initiated 08/22/2015 Visit Plan: Pt on [...] Hypertension Completed 12/28/2014 Appointment: Selena Alvarez WPtel: [facility]2 [facility] Follow up 12/20/2014 Visit Plan: Hypertension - [...] today, venous doppler, appt with Dr. Holger DEMETRICE COPD - chronic problem for this patient. We have reviewed chronic treatment strategy, symptom control, and plans for acute exacerbations. No changes today to the current treatment plan as the patient is stable, monitor for acute changes. 09/21/2014 Appointment: (S) New Patient 09/21/2014 Patient Education: Patient Medication Summary Completed 09/21/2014 Patient Education: Hypertension Completed 09/21/2014 Care Plan: Referral Order SNOMED-CT : [id number] Ordered 09/21/2014 Appointment: Selena Alvarez WPtel: [phone] [place] [phone] [place] (S) New Patient 09/20/2014 Referral: Martinez Wren WPtel: [phone] Referral Initiated Referral: Gavino Navarro Referral Initiated Referral: [facility] WPtel: [address] Referral Initiated Referral: Dr Arboleda Referral Completed Referral: Stephanie Silva WPtel: Referral Initiated Instructions Comment . Hypertension - wel l controlled - [...] symptoms. check INR on thursday . Left Axilla absces s and cellulitis - Pt states that he went to [facility] care for the abscess and they started [...] in blood pressure readings at home. . Dr. Alvarez in to see patient. [...] in blood pressure readings at home. . Pt on chronic anti coagulation. Dr. [...] purulent drainage noted, repacked and dressing applied. probiotics - culture [facility]. . Gastroenteritis - discussed need to [...] toe - continue with wound care management. lactobacillus - PROB IOTIC - take three [...] lactobacillus, monitor output, call if not improving. . Chronic Anticoagul ant use - Pt [...] is stable, monitor for acute changes. . Left axilla absces s - packing [...] worsen, or with any questions or concerns. 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 [...]
--- OUTSIDE RECORDS SUMMARY | 2019-08-20 18:20 | XMS REPORT | CCD ---
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 Name Role Phone PP Unavailable CCM Unavailable Summary Purpose Interface Exchange Insurance Providers Payer name Policy type / Coverage type Covered constitution party ID Effective Begin Date Effective End Date WPS Medicare Part B [id number] Unknown [employer] - other than primary [id number] Unknown Family history Father Diagnosis Age At Onset Hyperlipidemia Unknown Coronary Artery Disease Unknown Stroke Unknown Cancer Unknown Congestive heart failure Unknown Mother Diagnosis Age At Onset Hypertension Unknown kidney disease Unknown Cancer Unknown Stroke Unknown Hyperlipidemia Unknown Coronary Artery Disease Unknown Congestive heart failure Unknown Social History Social History Element Codes Description Effective Dates Tobacco history SNOMED CT: 11286009 Current some days smoker 09/21/2014 Allergies, Adverse Reactions, Alerts Allergies, Adverse Reactions, Alerts data not found Past Medical History Illness Codes Condition Status Onset Date Resolved Date Essential (primary) hypertension ICD-9: 401.9 ICD-10: I10 Active 12/27/2014 Unknown Localized edema ICD-9: 782.3 ICD-10: R60.0 Active 09/17/2016 Unknown Urinary tract infect ion, site not specified ICD-9: 599.0 ICD-10: N39.0 Active 09/17/2016 Unknown 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 ICD-10: Z89.612 Active 08/14/2016 Unknown Other specified bact erial intestinal infections ICD-9: 008.46 ICD-10: A04.8 Active 04/16/2016 Unknown Pain in right foot ICD- 9: 729.5 ICD-10: M79.671 Active 01/20/2016 Unknown Encounter for therap eutic drug level monitoring ICD-9: V58.83 ICD-10: Z51.81 Active 01/09/2016 Unknown Rash and other nonsp ecific skin eruption ICD-9: 782.1 ICD-10: R21 Active 01/09/2016 Unknown Cutaneous abscess of left [...] V67.59 ICD-10: Z09 Active 10/10/2015 Unknown Other jail (cur rent) drug therapy ICD-9: V58.69 ICD-10: [...] Condition Codes Effectiv e Dates Condition Status Essential (primary) hypertension ICD-9: 401.9 ICD-10: I10 12/27/2014 Active Localized edema ICD-9: 782.3 ICD-10: R60.0 09/17/2016 Active Urinary tract infect ion, site not specified ICD-9: 599.0 ICD-10: N39.0 09/17/2016 Active 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 ICD-10: Z89.612 08/14/2016 Active Other specified bact erial intestinal infections ICD-9: 008.46 ICD-10: A04.8 04/16/2016 Active Pain in right foot ICD- 9: 729.5 ICD-10: M79.671 01/20/2016 Active Encounter for therap eutic drug level monitoring ICD-9: V58.83 ICD-10: Z51.81 01/09/2016 Active Rash and other nonsp ecific skin eruption ICD-9: 782.1 ICD-10: R21 01/09/2016 Active Cutaneous abscess of left axilla ICD-9: 682.3 ICD-10: L02.412 01/01/2016 Active Cellulitis of left toe ICD-9: 681.10 ICD-10: L03.032 10/10/2015 Active Diverticulitis of in testine, part unspecified, without perforation or abscess with bleeding ICD-9: 562.13 ICD-10: K57.93 10/10/2015 Active Encounter for follow -up examination after completed treatment for conditions other than malignant neoplasm ICD-9: V67.59 ICD-10: Z09 10/10/2015 Active Other terminal operator (cur rent) drug therapy ICD-9: V58.69 ICD-10: [...] 7.5 mg-a cetaminophen 325 mg tablet RxNorm: 377718 1 Tablet(s) PO QID as needed 09/17/2016 10/16/2016 Active furosemide 40 mg tablet RxNorm: 145965 1 Tablet(s) PO daily as needed swelling 09/17/2016 01/14/2017 Ac tive potassium chloride E R 20 mEq tablet,extended release RxNorm: 632891 1 Tablet(s) PO daily as needed take when taking a lasix pill 09/17/2016 01/14/2017 Active Levaquin 500 mg tablet RxNorm: 394073 1 Tablet(s) PO daily 09/17/2016 09/21/2016 Active hydrocodone 7.5 mg-a cetaminophen 325 mg tablet RxNorm: 163330 1 Tablet(s) PO QID as needed 08/14/2016 09/12/2016 Inactive cyclobenzaprine 5 mg tablet RxNorm: 112388 1 Tablet(s) PO TID as needed 07/25/2016 07/29/2016 In active cyclobenzaprine 5 mg tablet RxNorm: 010159 1 Tablet(s) PO TID as needed 07/25/2016 07/24/2016 In active hydrocodone 7.5 mg-a cetaminophen 325 mg tablet RxNorm: 335718 1 Tablet(s) PO QID as needed 07/21/2016 08/13/2016 Inactive warfarin 1 mg tablet RxNorm: 634913 TAKE ONE TABLET BY MOUTH EVERY EVENING 06/26/2016 08/04/2016 In active hydrocodone 7.5 mg-a cetaminophen 325 mg tablet RxNorm: 847544 1 Tablet(s) PO QID as needed 06/24/2016 07/20/2016 Inactive hydrocodone 5 mg-yanira taminophen 325 mg tablet RxNorm: 722180 1 Tablet(s) PO Q6 as needed for pain 06/09/2016 06/10/2016 Inactive warfarin 1 mg tablet RxNorm: 322302 TAKE ONE TABLET BY MOUTH EVERY EVENING 06/02/2016 06/21/2016 In active allopurinol 100 mg t ablet RxNorm: 482704 TAKE ONE TABLET BY MO UT DAILY 05/21/2016 10/17/2016 Ac tive hydrocodone 7.5 mg-a cetaminophen 325 mg tablet RxNorm: 098304 1 Tablet(s) PO QID as needed 05/09/2016 06/07/2016 Inactive gabapentin 300 mg ca psule RxNorm: 451391 Capsule(s) TAKE ONE C APSULE BY MOUTH THREE TIMES A DAY 04/25/2016 10/21/2016 Active promethazine 25 mg t ablet RxNorm: 360310 TAKE ONE TABLET BY MO UTH THREE TIMES A DAY NEEDED 2016 05/01/2016 Inactive warfarin 1 mg tablet RxNorm: 242452 TAKE ONE TABLET BY MOUTH EVERY EVENING 2016 05/31/2016 In active promethazine 25 mg t ablet RxNorm: 446576 1 Tablet(s) PO TID as needed 04/16/2016 04/21/2016 In active warfarin 1 mg tablet RxNorm: 933509 TAKE ONE TABLET BY MOUTH EVERY EVENING 02/13/2016 04/12/2016 In active magnesium oxide 400 mg tablet RxNorm: 214818 TAKE ONE TABLET BY MO [facility] TWICE A DAY 02/07/2016 01/01/2017 Ac tive hydrocodone 5 mg-yanira taminophen 325 mg tablet RxNorm: 241302 1 Tablet(s) PO Q6 as needed for pain 01/21/2016 02/19/2016 Inactive warfarin 1 mg tablet RxNorm: 395447 TAKE ONE TABLET BY MOUTH EVERY EVENING 01/17/2016 02/05/2016 In active gabapentin 300 mg ca psule RxNorm: 531308 Capsule(s) TAKE ONE C APSULE BY MOUTH THREE TIMES A DAY 01/11/2016 04/24/2016 Inactive prednisone 10 mg tablet RxNorm: 153147 Tablet(s) PO UD 01/10/2016 No Stop Date Active 60mg x2 days, then 50mg x2 days, then 40mg x2 days, 30mg x2 days, 20mg x2 days, 10mg x2days, 5mg every other day x 2 doses Kenalog 40 mg/mL cassius pension for injection RxNorm: 2686480 Milliliter(s) Inj 01/07/2016 01/07/2016 In active warfarin 1 mg tablet RxNorm: 707875 TAKE ONE TABLET BY MOUTH EVERY EVENING 01/01/2016 01/16/2016 In active hydrocodone 5 mg-yanira taminophen 325 mg tablet RxNorm: 081069 1 Tablet(s) PO Q6 as needed for pain 01/01/2016 01/15/2016 Inactive gabapentin 300 mg ca psule RxNorm: 381090 TAKE ONE CAPSULE BY M OUTH THREE TIMES A DAY 12/12/2015 01/10/2016 Inactive warfarin 5 mg tablet RxNorm: 855597 1 Tablet(s) PO daily 12/05/2015 No Stop Date Active warfarin 1 mg tablet RxNorm: 603051 TAKE ONE TABLET BY MOUTH EVERY EVENING 11/13/2015 12/22/2015 In active hydrocodone 5 mg-yanira taminophen 325 mg tablet RxNorm: 241405 1 Tablet(s) PO Q6 as needed for pain 10/26/2015 11/09/2015 Inactive allopurinol 100 mg t ablet RxNorm: 271983 1 Tablet(s) PO daily TAKE ONE TABLET BY MOUTH DAILY 10/18/2015 04/14/2016 Inactive hydrocodone 5 mg-yanira taminophen 325 mg tablet RxNorm: 803676 1 Tablet(s) PO Q6 as needed for pain 09/26/2015 10/10/2015 Inactive gabapentin 300 mg ca psule RxNorm: 518723 TAKE ONE CAPSULE BY M OUTH THREE TIMES A DAY 09/14/2015 12/11/2015 Inactive warfarin 1 mg tablet RxNorm: 449068 1 Tablet(s) PO QPM 09/14/2015 11/12/2015 Inactive hydrocodone 5 mg-yanira taminophen 325 mg tablet RxNorm: 509037 1 Tablet(s) PO Q6 as needed for pain 09/12/2015 09/25/2015 Inactive hydrocodone 5 mg-yanira taminophen 325 mg tablet RxNorm: 583740 1 Tablet(s) PO Q6 as needed for pain 08/22/2015 09/05/2015 Inactive Bactrim DS 800 mg-16 0 mg tablet RxNorm: 580719 1 Tablet(s) PO BID 08/20/2015 09/02/2015 Inactive magnesium oxide 400 mg tablet RxNorm: 776602 TAKE ONE TABLET BY MO UTH TWICE A DAY 01/20/2015 01/14/2016 In active gabapentin 300 mg ca psule RxNorm: 490772 TAKE ONE CAPSULE BY [facility] THREE TIMES A DAY 01/20/2015 05/19/2015 Inactive magnesium oxide 400 mg tablet RxNorm: 072163 1 Tablet(s) PO BID 01/17/2015 05/16/2015 Inactive gabapentin 300 mg ca psule RxNorm: 510328 1 Capsule(s) PO TID 01/17/2015 05/16/2015 Inactive allopurinol 100 mg t ablet RxNorm: 855411 TAKE ONE TABLET BY [facility] DAILY 10/18/2014 10/12/2015 In active Kenalog 40 mg/mL cassius pension for injection RxNorm: 2474511 1 Milliliter(s) Inj 09/21/2014 09/21/2014 In active allopurinol 100 mg t ablet RxNorm: 460700 1 Tablet(s) PO daily 09/21/2014 10/17/2014 Inactive gabapentin 300 mg ca psule RxNorm: 324257 1 Capsule(s) PO TID 09/12/2014 01/09/2015 Inactive gabapentin 300 mg ca psule RxNorm: 914635 1 Capsule(s) PO TID 09/12/2014 09/11/2014 Inactive magnesium oxide 400 mg tablet RxNorm: 392855 1 Tablet(s) PO BID 09/12/2014 01/09/2015 Inactive magnesium oxide 400 mg tablet RxNorm: 109633 1 Tablet(s) PO BID 09/12/2014 09/11/2014 Inactive lisinopril 5 mg tablet RxNorm: 408737 1 Tablet(s) PO daily No Start Date Active Pepcid 20 mg tablet RxNorm: 492614 1 Tablet(s) PO BID No Start Date Active minocycline 50 mg ca psule RxNorm: 242953 1 Capsule(s) PO BID o rdered by Dr. Saravia No Start Date Active Coreg 6.25 mg tablet RxNorm: 418760 1 Tablet(s) PO BID No Start Date Active Combivent Respimat 2 0 mcg-100 mcg/actuation solution for inhalation RxNorm: 5587497 1 Puff(s) INH as needed No Start Date Active Ventolin Refill 90 m cg/actuation aerosol inhaler RxNorm: 288012 2 INH as needed No Start Date Active Centrum Silver Women oral RxNorm: [address] art Date Active aspirin 81 mg capsul e,delayed release RxNorm: 485916 1 Capsule(s) PO daily No Start Date Active warfarin 1 mg tablet RxNorm: 174973 oral No Start Date 09/13/2015 Inactive Protonix 40 mg table t,delayed release RxNorm: 869161 1 Tablet(s) PO daily No Start Date 09/16/2016 Inactive warfarin 5 mg tablet RxNorm: 938853 1 Tablet(s) PO daily 1.5 tabs on Thu No Start Date 12/04/2015 Inactive furosemide 40 mg tablet RxNorm: 131574 1 Tablet(s) PO daily No Start Date 09/16/2016 Inactive Medication Administered Medication Codes Instruc tions Start Date Status Kenalog 40 mg/mL suspension for injection RxNorm: 0769075 Milliliter 01/07/2016 No longer Active Kenalog 40 mg/mL suspension for injection RxNorm: 1961710 1Milliliter 09/21/2014 N o longer Active Immunizations No Immunization data Assessments Condition Codes Effectiv e Dates Localized edema ICD-10: R60.0 ICD-9: 782.3 09/17/2016 Essential (primary) hypertension ICD -10: I10 ICD-9: 401.9 09/17/2016 Urinary tract infection, site not specified ICD-10: N39.0 ICD-9: 599.0 09/17/2016 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 ICD-9: V49.76 08/14/2016 Other specified bacterial intestinal infections ICD-10: A04.8 ICD-9: 008.46 04/16/2016 Pain in right foot ICD-10: M79.671 ICD-9: 729.5 01/21/2016 Encounter for therapeutic drug level monitoring ICD-10: Z51.81 ICD-9: V58.83 01/10/2016 Rash and other nonspecific skin eruption ICD-10: R21 ICD-9: 782.1 01/10/2016 Cutaneous abscess of left axilla ICD -10: L02.412 ICD-9: 682.3 01/02/2016 Diverticulitis of intestine, part unspec ified, without perforation or abscess with bleeding ICD-10: K57.93 ICD-9: 562.13 10/11/2015 Encounter for follow-up examination afte r completed treatment for conditions other than malignant neoplasm ICD-10: Z09 ICD-9: V67.59 10/11/2015 Other jail (current) drug therapy ICD-10: Z79.899 ICD-9: V58.69 [...] Visit Reason For Visit Effective Dates Notes fever 09/17/2016 gait abnormality 08/14/2016 abdominal pain [...] Code Item Item Code Result Date Pt Gun6112 PT 64.8 seconds 01/10/2016 Pt Bbf9365 INR 8.6 01/10/2016 Pt Ano5837 Low Intensity - 1.5-2.0 01/10/2016 Pt Fit2260 Mod intensity - 2.0-3.0 01/10/2016 Pt Rxq0311 Hi intensity - 3.0-4.0 01/10/2016 Pt Mkb8451 PT 32.1 seconds 11/01/2014 Pt Oke9420 INR 3.2 11/01/2014 Pt Xbu7228 Low Intensity - 1.5-2.0 11/01/2014 Pt Eaw8450 Mod intensity - 2.0-3.0 11/01/2014 Pt Tow4618 Hi intensity - 3.0-4.0 11/01/2014 Pt Pbx5302 PT 30.2 seconds 10/03/2014 Pt Jku3779 INR 3.0 10/03/2014 Pt Bbf5098 Low Intensity - 1.5-2.0 10/03/2014 Pt Cqn7384 Mod intensity - 2.0-3.0 10/03/2014 Pt Rak8155 Hi intensity - 3.0-4.0 10/03/2014 D-Dimer D-DIMER 475 NG/ML 09/25/2014 D-Dimer COMMENT 09/25/2014 Magnesium Ord90 Mag 1.1 Result Verified By Repeat Analysis mg/dL 09/22/2014 Pt Acn2324 PT 32.0 seconds 09/22/2014 Pt Cbq0955 INR 3.2 09/22/2014 Pt Rxq4400 Low Intensity - 1.5-2.0 09/22/2014 Pt Zzq4462 Mod intensity - 2.0-3.0 09/22/2014 Pt Vng2869 Hi intensity - 3.0-4.0 09/22/2014 Comp Metabolic Kjg879 NA 137 mEq/L 09/22/2014 Comp Metabolic Kpf675 K 4.2 mEq/L 09/22/2014 Comp Metabolic Bba876 CL 102 mEq/L 09/22/2014 Comp Metabolic Plh052 CO2 25.0 mEq/L 09/22/2014 Comp Metabolic Bxj565 AN ION GAP 14 09/22/2014 Comp Metabolic Mhi060 GL UCOSE 94 mg/dL 09/22/2014 Comp Metabolic Evy904 Cr eat 0.8 mg/dL 09/22/2014 Comp Metabolic Qdt949 eG FR 102 ml/min/1.73m2 09/06 Comp Metabolic Jtz494 BUN 15 mg/dL 09/22/2014 Comp Metabolic Irf374 B/ C Ratio 18.8 Ratio 09/22/2014 Comp Metabolic Abi756 CA LCIUM 9.4 mg/dL 09/22/2014 Comp Metabolic Eyo658 AL K PHOS 65 U/L 09/22/2014 Comp Metabolic Uij735 T(SGOT) 15 U/L 09/22/2014 Comp Metabolic Uhg406 AL T(SGPT) 8 U/L 09/22/2014 Comp Metabolic Dyb865 BI LI T 0.4 mg/dL 09/22/2014 Comp Metabolic Piv251 AL BUMIN 4.0 g/dL 09/22/2014 Comp Metabolic Ojk193 TP RO 6.8 g/dL 09/22/2014 Comp Metabolic Mcr778 GL OB 2.8 g/dL 09/22/2014 Comp Metabolic Nmn361 A/ G Ratio 1.4 Ratio 09/22/2014 Comp Metabolic Diq248 Os mo 274 mOsmo 09/22/2014 C-Reactive Protein [...] of Systems System Result Effective Dates Constitutional recent illness 09/17/2016 Constitutional No chills [...] greater than left Procedures Procedure Codes Date 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 3-[address]: [id number] CPT-4: J4665Vhwhpza 09/17/2016 THER/PROPH/DIAG INJ SC/IM CPT-4: 47666Awpbygg 01/07/2016 TRIAMCINOLONE ACET I [place] NOS CPT-4: G3633Yhujnjh 01/07/2016 TRIAMCINOLONE ACET I [place] NOS CPT-4: J0646Wsqelyy 09/21/2014 THER/PROPH/DIAG INJ SC/IM CPT-4: 04138Xdkryxl 09/21/2014 Vital Signs Date Vital 09/17/2016 Blood Pressure 1: 100/60 Code: 8480-6 [...] 1: 128/78 Code: 8480-6 BMI: 33.3 Code: 19398-0 Heart Rate 1: 72 bpm Height: 5'3" SpO2: 97% Weight: 188 lbs 01/10/2016 Blood Pressure 1: 132/76 Code: 8480-6 BMI: 33.1 Code: 90921-1 Heart Rate 1: 72 bpm Height: 5'3" SpO2: 97% Weight: 187 lbs 12/25/2015 Blood Pressure 1: 154/82 Code: 8480-6 BMI: 33.1 Code: 04942-9 Heart Rate 1: 72 bpm Height: 5'3" SpO2: 97% Weight: 187 lbs 10/11/2015 Blood Pressure 1: 110/62 Code: 8480-6 BMI: 34.7 Code: 54880-1 Heart Rate 1: 70 bpm Height: 5'3" SpO2: 93% Weight: 196 lbs 08/24/2015 Blood Pressure 1: 132/62 Code: 8480-6 BMI: 35.3 Code: 37625-1 Heart Rate 1: 62 bpm Height: 5'3" SpO2: 93% Weight: 199 lbs 08/20/2015 Blood Pressure 1: 140/68 Code: 8480-6 BMI: 35.3 Code: 94925-8 Heart Rate 1: 74 bpm Height: 5'3" SpO2: 96% Weight: 199 lbs 12/28/2014 Blood Pressure 1: 130/72 Code: 8480-6 BMI: 33.1 Code: 62411-9 Heart Rate 1: 60 bpm Height: 5'3" SpO2: 97% Weight: 187 lbs 10/31/2014 Blood Pressure 1: 118/72 Code: 8480-6 BMI: 31.2 Code: 00040-1 Heart Rate 1: 58 bpm Height: 5'3" SpO2: 98% Weight: 176 lbs 10/02/2014 Blood Pressure 1: 138/74 Code: 8480-6 BMI: 30.6 Code: 74435-6 Heart Rate 1: 72 bpm Height: 5'3" Weight: 173 lbs 09/21/2014 Blood Pressure 1: 138/72 Code: 8480-6 BMI: 30.5 Code: 75473-1 Heart Rate 1: 60 bpm Height: 5'3" SpO2: 96% Weight: 172 lbs Functional Status No Functional Status data History of Present Illness Symptom Name Status Resu lt Effective Date Notes fever Quality intermitte nt 09/17/2016 None fever [...] daily 12/25/2015 None Hospital Follow Up _ [facility] er: diverticulitis 10/11/2015 None Hospital Follow [...] Encounters Encounter Performer Loca tion Codes Date [id number]) [id number] EST. P ATIENT, LEVEL IV Diagnosis: Essential (primary) hypertension[ICD10: I10] Diagnosis: Urinary tract infection, site not specified[ICD10: N39.0] Diagnosis: Localized edema[ICD10: R60.0] Selena Alvarez MD, [facility] CPT-4: 60438 09/17/2016 [id number] EST. PATIENT, LEVEL IV Diagnosis: Acquired absence of left leg above knee[ICD10: Z89.612] [facility] CPT-4: 54047 08/14/2016 [id number] EST. PATIENT, LEVEL III Diagnosis: Other specified bacterial intestinal infections[ICD10: A04.8] [facility] CPT-4: 80364 04/16/2016 43450 EST. PATIENT, LEVEL II Diagnosis: Pain in right foot[ICD10: M79.671] Rox Alvarez MD, [facility] CPT-4: 96136 01/21/2016 51416 EST. PATIENT, LEVEL III Diagnosis: Encounter for therapeutic drug level monitoring[ICD10: Z51.81] Diagnosis: Rash and other nonspecific skin eruption[ICD10: R21] Rox Alvarez MD [facility] CPT-4: 63650 01/10/2016 [id number] EST. PATIENT, LEVEL III Diagnosis: Rash and other nonspecific skin eruption[ICD10: R21] DANIELA Nixon MD CPT-4: 62847 01/07/2016 ([id number]) Miscellaneou s no charge Diagnosis: Cutaneous abscess of left axilla[ICD10: L02.412] DANIELA Nixon MD CPT-4: 28212 01/02/2016 ([id number]) Miscellaneou s no charge Diagnosis: Cutaneous abscess of left axilla[ICD10: L02.412] Rox Alvarez MD [facility] CPT-4: 56893 01/01/2016 ([id number]) Miscellaneou s no charge Diagnosis: Cutaneous abscess of left axilla[ICD10: L02.412] Rox Alvarez MD [facility] CPT-4: 67104 12/31/2015 ([id number]) Patient adm itted to the hospital from clinic (NO CHARGE) Diagnosis: Cutaneous abscess of left axilla[ICD10: L02.412] Rox Alvarez MD [facility] CPT-4: 12176D 12/25/2015 51581 EST. PATIENT, LEVEL III Diagnosis: Encounter for follow-up examination after completed treatment for conditions other than malignant neoplasm[ICD10: Z09] Diagnosis: Diverticulitis of intestine, part unspecified, without perforation or abscess with bleeding[ICD10: K57.93] Diagnosis: Cellulitis of left toe[ICD10: L03.032] Diagnosis: Other obesity due to excess calories[ICD10: E66.09] Diagnosis: Other terminal operator (current) drug therapy[ICD10: Z79.899] Rox Alvarez MD [facility] CPT-4: 49188 10/11/2015 ([id number]) Miscellaneou s no charge Diagnosis: Encounter for therapeutic drug level monitoring[ICD10: Z51.81] Diagnosis: Other acute osteomyelitis, left ankle and foot[ICD10: M86.172] Rox Alvarez MD [facility] CPT-4: 68854 08/24/2015 06754 EST. PATIENT, LEVEL IV Diagnosis: Cellulitis of left toe[ICD10: L03.032] Rox Alvarez MD, [facility] CPT-4: 26554 08/20/2015 87070 EST. PATIENT, LEVEL III Diagnosis: Essential (primary) hypertension[ICD10: I10] Diagnosis: Peripheral vascular disease, unspecified[ICD10: I73.9] Diagnosis: Dermatitis, unspecified[ICD10: L30.9] Rox Alvarez MD, [facility] CPT- 4: 58188 12/28/2014 ([id number]) 23155 EST. P ATIENT, LEVEL III Diagnosis: ESSENTIAL HYPERTENSION[ICD9: 401.9] Diagnosis: PAD (peripheral artery disease)[ICD9: 443.9] Diagnosis: Anticoagulated on Coumadin[ICD9: V58.83] Emy Alvarez MD, [facility] CPT-4: 20944 10/31/2014 ([id number]) 53519 EST. P ATIENT, LEVEL III Diagnosis: PAD (peripheral artery disease)[ICD9: 443.9] Diagnosis: Anticoagulated on Coumadin[ICD9: V58.83] Diagnosis: SCLERITIS[ICD9: 379.00] Diagnosis: ESSENTIAL HYPERTENSION[ICD9: 401.9] Selena Alvarez MD, [facility] CPT- 4: 60091 10/02/2014 ([id number]) [facility] Diagnosis: GOUT[ICD9: 274.9] Diagnosis: COPD (chronic obstructive pulmonary disease)[ICD9: 496] Diagnosis: PAD (peripheral artery disease)[ICD9: 443.9] Diagnosis: ESSENTIAL HYPERTENSION[ICD9: 401.9] Selena Alvarez MD, [facility] CPT- 4: 56789 09/21/2014 Plan of Care Planned Activity Notes C odes Status Date Visit Plan: Hypertension - well controll ed - continue with current medications, continue with no added salt diet. Pt has been encouraged to exercise daily.The pt has been advised to call the office if there are any acute concerns about change in blood pressure readings at home.Edema - pt has been advised to elevate legs to prevent dependent edema, compression has been recommended to help to naturally decrease peripheral edema. Diuretic use has been discussed and pt has been instructed in appropriate use of such medication as necessary to further attempt to reduce peripheral edema.UTI - change to levaquin - monitor symptoms.check INR on thursday09/17/2016 Patient Education: Patient Medication Summary Completed 09/17/2016 Patient Education: Smoking and Tobacco Addiction Completed 09/17/2016 Patient Education: Hypertension Completed 09/17/2016 Visit Plan: Pt is here for a face to fac e mobility evaluation for a power wheelchair. Pt [...] PT for mobility evaluation. 08/14/2016 Appointment: Rox Lucianol: [id number] (30 min) Complex 08/14/2016 Patient Education: Patient Medication Summary Completed 08/14/2016 Patient Education: Smoking and Tobacco Addiction Completed 08/14/2016 Visit Plan: Gastroenteritis - discussed need to stay away from milk products while acutely ill with diarrhea and nausea and emesis as it may worsen the symptoms. Liquids initially until the nausea improves, then recommend to advance to bland diet for 1 day, then advance as tolerated. Call if symptoms not improved.Diarrhea - recommended bland diet, low fat diet, start on probiotic, and rehydrate with gatorade-like product. Pt to call if feeling worse, diarrhea becomes bloody, or does not improve with above recommendations. Pt to call for acute worsening of stomach upset or stomach pain. 2016 Appointment: Rox Lucianol: [id number] [facility] (15 min) Moderate 04/16/2016 Patient Education: Patient Medication Summary Completed 04/16/2016 Patient Education: Smoking and Tobacco Addiction Completed 04/16/2016 Referral: Dr Arboleda Referral Completed 02/14/2016 Care Plan: Referral Order SNOMED-CT : [id number] Pending 01/29/2016 Visit Plan: Right foot pain - ongoing - pt [...] Addiction Completed 01/21/2016 Visit Plan: Chronic Anticoagulant use - Pt has been counseled about the anticoagulant, need for serial monitoring, and need for the pt to alert the physician as to any new bruising, or acute bleeding. Therapeutic goal for INR is between 2.0 and 3.5.Ongoing rash - was previously given Kenalog injection, [...] worsening redness, warmth, discharge. 01/10/2016 Appointment: Rox Luciano: [address] [place], [place] [phone] (30 min) [facility] 01/10/2016 Patient Education: Patient Medication Summary Completed 01/10/2016 Patient Education: Smoking and Tobacco Addiction Completed 01/10/2016 Visit Plan: Rash - pt states that he is unsure if it from grass [...] 01/04/2016 Visit Plan: Left axilla abscess - packin g removed - minimal drainage noted, wound cleaned and dressing applied. 01/02/2016 Appointment: Nurse Visit 01/02/2016 Patient Education: Patient Medication Summary Completed 01/02/2016 Patient Education: Smoking and Tobacco Addiction Completed 01/02/2016 Visit Plan: Left axilla abscess - packin g removed - minimal drainage noted, repacked and dressing applied. 01/01/2016 Appointment: Nurse Visit 01/01/2016 Patient Education: Patient Medication Summary Completed 01/01/2016 Patient Education: Smoking and Tobacco Addiction Completed 01/01/2016 Visit Plan: Left axilla abscess - packin g removed - minimal purulent drainage noted, repacked and dressing applied. 12/31/2015 Appointment: Nurse Visit 12/31/2015 Patient Education: Patient Medication Summary Completed 12/31/2015 Patient Education: Smoking and Tobacco Addiction Completed 12/31/2015 Visit Plan: Left Axilla abscess and cell ulitis - Pt states that he went to [facility] care for the abscess and they started him on an antibiotic and told him to go home and drain it himself. Axilla to lateral chest wall is erythematous with large area of induration. 3 open sites with thick purulent drainage noted - Dr. Alvarez in to see pt - will admit for IV antibiotics and further I&D. 2015 Appointment: Emy Westbrook WPtel: [address] [place], [place] [id number] (15 min) Moderate 12/25/2015 Patient Education: Patient Medication Summary Completed 12/25/2015 Patient Education: Smoking and Tobacco Addiction Completed 12/25/2015 Care Plan: BMI Above normal followup MILES F-MGMT EDUC & TRAIN 1 PT Pending 10/12/2015 Visit Plan: Hospital follow up - This wa s a follow up appointment from the patient's hospitalization during which time Dr. Alvarez formulated the assessment and plan for the follow up on this patient's medical condition.Obesity - chronic issue with this patient. The pt has been counseled about diet changes, calorie restriction, and need to exercise. Pt will RTC in one month for weight check.Chronic Anticoagulant use - Pt has been counseled about the anticoagulant, need for serial monitoring, and need for the pt to alert the physician as to any new bruising, or acute bleeding. Therapeutic goal for INR is between 2.0 and 3.5.Cellulitis of the toe - continue with wound care management. 10/11/2015 Visit Plan: Hospital follow up - This wa s a follow up appointment from the patient's hospitalization during which time Dr. Alvarez formulated the assessment and plan for the follow up on this patient's medical condition.Obesity - chronic issue with this patient. The pt has been counseled about diet changes, calorie restriction, and need to exercise. Pt will RTC in one month for weight check.Chronic Anticoagulant use - Pt has been counseled about the anticoagulant, need for serial monitoring, and need for the pt to alert the physician as to any new bruising, or acute bleeding. Therapeutic goal for INR is between 2.0 and 3.5.Cellulitis of the toe - continue with wound care management. 10/11/2015 Appointment: Rox Luciano WPtel: [id number] (30 min) Complex 10/11/2015 Patient Education: Patient Medication Summary Completed 10/11/2015 Patient Education: Smoking and Tobacco Addiction Completed 10/11/2015 Patient Education: Obesity Completed 10/11/2015 Referral: Gavino Navarro they are g oing to call if they get him in before if not we will call Dr shook Initiated 09/27/2015 Appointment: Emy Westbrook WPtel: [phone] (15 min) Moderate 08/24/2015 Patient Education: Patient Medication Summary Completed 08/24/2015 Patient Education: Smoking and Tobacco Addiction Completed 08/24/2015 Patient Education: Patient Medication Summary Completed 08/23/2015 Appointment: Emy Westbrook WPtel: [phone] (30 min) Complex 08/22/2015 Referral: [facility] WPtel: [address] [place], [place] [phone] Referral Initiated 08/22/2015 Visit Plan: Pt on chronic anticoagulatio n. Dr. Solis had given pt orders for [...] as if their heart rate is becoming uncontrolled.Abscess/Cellulitis - Will get X- ray and check labs, will schedule MRI and [...] Complex 01/25/2015 Visit Plan: Hypertension - well controll ed - continue with current medications, continue with no added salt diet. Pt has been encouraged to exercise daily.The pt has been advised to call the office if there are any acute concerns about change in blood pressure readings at home.Dermatitis - Will send steroid cream for arms - do not scratch at arms. Notify clinic if symptoms worsen, or with questions or concerns. 12/28/2014 Appointment: (15 min) Moderate 12/28/2014 Patient Education: Patient Medication Summary Completed 12/28/2014 Patient Education: Hypertension Completed 12/28/2014 Appointment: Sel[id number] Follow up 12/20/2014 Visit Plan: Hypertension - well controll ed - continue with current medications, continue with no added salt diet. Pt has been encouraged to exercise daily.The pt has been advised to call the office if there are any acute concerns about change in blood pressure readings at home. 10/31/2014 Appointment: (15 min) Moderate 10/31/2014 Patient Education: Patient Medication Summary Completed 10/31/2014 Patient Education: Hypertension Completed 10/31/2014 Visit Plan: Peripheral Vascular Disease- Symptoms improved. PT/INR today. Continue to monitor labs frequently d/t initiation of allopurinol. Dr. Solis's office notified. Hypertension - well controlled - continue with current medications, continue with no added salt diet. Pt has been encouraged to exercise daily.The pt has been advised to call the office if there are any acute concerns about change in blood pressure readings at home.Scleritis- Dr. Latham consult. Pt to go directly to office immediately upon leaving this appointment. Verbalizes understanding. 10/02/2014 Appointment: (15 min) Moderate 10/02/2014 Patient Education: Patient Medication Summary Completed 10/02/2014 Patient Education: Hypertension Completed 10/02/2014 Visit Plan: Dr. Alvarez in to see shi nt. Gout Attack - pt given RX for uric Acid Level, and rx for medication for treatment of symptoms. Pt to call if symptoms do not improve, and pt to be given results of labs when available.Peripheral Vascular Disease- Check labs today, venous doppler, appt with Dr. Holger FAUSTIN - chronic problem for this patient. We have reviewed chronic treatment strategy, symptom control, and plans for acute exacerbations. No changes today to the current treatment plan as the patient is stable, monitor for acute changes.Hypertension - well controlled - continue with current medications, continue with no added salt diet. Pt has been encouraged to exercise daily.The pt has been advised to call the office if there are any acute concerns about change in blood pressure readings at home. 09/21/2014 Visit Plan: Dr. Alvarez in to see shi nt. Gout Attack - pt given RX for uric Acid Level, and rx for medication for treatment of symptoms. Pt to call if symptoms do not improve, and pt to be given results of labs when available.Peripheral Vascular Disease- Check labs today, venous doppler, appt with Dr. Holger FAUSTIN - chronic problem for this patient. We have reviewed chronic treatment strategy, symptom control, and plans for acute exacerbations. No changes today to the current treatment plan as the patient is stable, monitor for acute changes. 09/21/2014 Appointment: (S) New Patient 09/21/2014 Patient Education: Patient Medication Summary Completed 09/21/2014 Patient Education: Hypertension Completed 09/21/2014 Care Plan: Referral Order SNOMED-CT : [id number] Ordered 09/21/2014 Appointment: [id number] [place] (S) New Patient 09/20/2014 Referral: Martinez Wren [phone] [place] Referral Initiated Referral: Gavino Navarro Referral Initiated Referral: [facility] [address] [facility] [place] Referral Initiated Referral: Dr Arboleda Referral Completed Instructions Comment 5mg daily except Thu take [...] toe - continue with wound care management. probiotics - culture [facility]. . [...] noted, wound cleaned and dressing applied. . Pt on chronic anti coagulation. Dr. [...] for IV antibiotics and further I&D. . Hypertension - wel l controlled - [...] immediately upon leaving this appointment. Verbalizes understanding. Will send steroid cr eam for arms. [...] the lesion, increase in pain. . Chronic Anticoagul ant use - [...]
--- OUTSIDE RECORDS SUMMARY | 2019-08-20 18:20 | XMS REPORT | CCD ---
Author Author Bony Alvarez Organization Selena Alvarez MD, [facility] Address [address] [place] [address] Phone Care Team Providers Care Assistant Finance Manager Name Role Phone PP Unavailable CCM Unavailable Summary Purpose Interface Exchange Insurance Providers Payer name Policy type / Coverage type Covered democrat ID Effective Begin Date Effective End Date WPS Medicare Part B 51 [id number] Unknown [employer] - other than primary [id number] Unknown Family history Father Diagnosis Age At Onset Hyperlipidemia Unknown Coronary Artery Disease Unknown Stroke Unknown Cancer Unknown Congestive heart failure Unknown Mother Diagnosis Age At Onset Hypertension Unknown kidney disease Unknown Cancer Unknown Stroke Unknown Hyperlipidemia Unknown Coronary Artery Disease Unknown Congestive heart failure Unknown Social History Social History Element Codes Description Effective Dates Tobacco history SNOMED CT: 28719601 Current some days smoker 09/21/2014 Allergies, Adverse Reactions, Alerts Allergies, Adverse Reactions, Alerts data not found Past Medical History Illness Codes Condition Status Onset Date Resolved Date Acquired absence of left leg above knee [...] ICD-9: 692.9 ICD-10: L30.9 Active 12/27/2014 Unknown Essential (primary) hypertension ICD-9: 401.9 ICD-10: I10 Active 12/27/2014 Unknown Peripheral vascular disease, unspecified [...] Condition Codes Effectiv e Dates Condition Status Acquired absence of left leg above knee [...] ICD-9: V67.59 ICD-10: Z09 10/10/2015 Active Other rn long term care (cur rent) drug therapy ICD-9: V58.69 ICD-10: Z79.899 10/10/2015 Active Other obesity due to excess calories ICD-9: 278.00 ICD-10: E66.09 10/10/2015 Active Other acute osteomye litis, left ankle and foot ICD-9: 730.07 ICD-10: M86.172 08/23/2015 Active Dermatitis, unspecified ICD-9: 692.9 ICD-10: L30.9 12/27/2014 Active Essential (primary) hypertension ICD-9: 401.9 ICD-10: I10 12/27/2014 Active Peripheral vascular disease, unspecified ICD-9: [...] 7.5 mg-a cetaminophen 325 mg tablet RxNorm: 262074 1 Tablet(s) PO QID as needed 09/17/2016 10/16/2016 Active hydrocodone 7.5 mg-a cetaminophen 325 mg tablet RxNorm: 332109 1 Tablet(s) PO QID as needed 08/14/2016 09/12/2016 Inactive cyclobenzaprine 5 mg tablet RxNorm: 768341 1 Tablet(s) PO TID as needed 07/25/2016 07/29/2016 In active cyclobenzaprine 5 mg tablet RxNorm: 220285 1 Tablet(s) PO TID as needed 07/25/2016 07/24/2016 In active hydrocodone 7.5 mg-a cetaminophen 325 mg tablet RxNorm: 872364 1 Tablet(s) PO QID as needed 07/21/2016 08/13/2016 Inactive warfarin 1 mg tablet RxNorm: 145581 TAKE ONE TABLET BY MOUTH EVERY EVENING 06/26/2016 08/04/2016 In active hydrocodone 7.5 mg-a cetaminophen 325 mg tablet RxNorm: 548113 1 Tablet(s) PO QID as needed 06/24/2016 07/20/2016 Inactive hydrocodone 5 mg-yanira taminophen 325 mg tablet RxNorm: 666158 1 Tablet(s) PO Q6 as needed for pain 06/09/2016 06/10/2016 Inactive warfarin 1 mg tablet RxNorm: 490363 TAKE ONE TABLET BY MOUTH EVERY EVENING 06/02/2016 06/21/2016 In active allopurinol 100 mg t ablet RxNorm: 602520 TAKE ONE TABLET BY MO [facility] DAILY 05/21/2016 10/17/2016 Ac tive hydrocodone 7.5 mg-a cetaminophen 325 mg tablet RxNorm: 248331 1 Tablet(s) PO QID as needed 05/09/2016 06/07/2016 Inactive gabapentin 300 mg ca psule RxNorm: 063001 Capsule(s) TAKE ONE C APSULE BY MOUTH THREE TIMES A DAY 04/25/2016 10/21/2016 Active promethazine 25 mg t ablet RxNorm: 406838 TAKE ONE TABLET BY MO [facility] THREE TIMES A DAY NEEDED 2016 05/01/2016 Inactive warfarin 1 mg tablet RxNorm: 581825 TAKE ONE TABLET BY MOUTH EVERY EVENING 2016 05/31/2016 In active promethazine 25 mg t ablet RxNorm: 725706 1 Tablet(s) PO TID as needed 04/16/2016 04/21/2016 In active warfarin 1 mg tablet RxNorm: 015310 TAKE ONE TABLET BY MOUTH EVERY EVENING 02/13/2016 04/12/2016 In active magnesium oxide 400 mg tablet RxNorm: 359940 TAKE ONE TABLET BY MO UTH TWICE A DAY 02/07/2016 01/01/2017 Ac tive hydrocodone 5 mg-yanira taminophen 325 mg tablet RxNorm: 472697 1 Tablet(s) PO Q6 as needed for pain 01/21/2016 02/19/2016 Inactive warfarin 1 mg tablet RxNorm: 084167 TAKE ONE TABLET BY MOUTH EVERY EVENING 01/17/2016 02/05/2016 In active gabapentin 300 mg ca psule RxNorm: 025762 Capsule(s) TAKE ONE C APSULE BY MOUTH THREE TIMES A DAY 01/11/2016 04/24/2016 Inactive prednisone 10 mg tablet RxNorm: 749606 Tablet(s) PO UD 01/10/2016 No Stop Date Active 60mg x2 days, then 50mg x2 days, then 40mg x2 days, 30mg x2 days, 20mg x2 days, 10mg x2days, 5mg every other day x 2 doses Kenalog 40 mg/mL cassius pension for injection RxNorm: 2363722 Milliliter(s) Inj 01/07/2016 01/07/2016 In active warfarin 1 mg tablet RxNorm: 592140 TAKE ONE TABLET BY MOUTH EVERY EVENING 01/01/2016 01/16/2016 In active hydrocodone 5 mg-yanira taminophen 325 mg tablet RxNorm: 189709 1 Tablet(s) PO Q6 as needed for pain 01/01/2016 01/15/2016 Inactive gabapentin 300 mg ca psule RxNorm: 478972 TAKE ONE CAPSULE BY M OUTH THREE TIMES A DAY 12/12/2015 01/10/2016 Inactive warfarin 5 mg tablet RxNorm: 012050 1 Tablet(s) PO daily 12/05/2015 No Stop Date Active warfarin 1 mg tablet RxNorm: 407473 TAKE ONE TABLET BY MOUTH EVERY EVENING 11/13/2015 12/22/2015 In active hydrocodone 5 mg-yanira taminophen 325 mg tablet RxNorm: 006235 1 Tablet(s) PO Q6 as needed for pain 10/26/2015 11/09/2015 Inactive allopurinol 100 mg t ablet RxNorm: 891439 1 Tablet(s) PO daily TAKE ONE TABLET BY MOUTH DAILY 10/18/2015 04/14/2016 Inactive hydrocodone 5 mg-yanira taminophen 325 mg tablet RxNorm: 490386 1 Tablet(s) PO Q6 as needed for pain 09/26/2015 10/10/2015 Inactive gabapentin 300 mg ca psule RxNorm: 328868 TAKE ONE CAPSULE BY M OUTH THREE TIMES A DAY 09/14/2015 12/11/2015 Inactive warfarin 1 mg tablet RxNorm: 843149 1 Tablet(s) PO QPM 09/14/2015 11/12/2015 Inactive hydrocodone 5 mg-yanira taminophen 325 mg tablet RxNorm: 364793 1 Tablet(s) PO Q6 as needed for pain 09/12/2015 09/25/2015 Inactive hydrocodone 5 mg-yanira taminophen 325 mg tablet RxNorm: 872812 1 Tablet(s) PO Q6 as needed for pain 08/22/2015 09/05/2015 Inactive Bactrim DS 800 mg-16 0 mg tablet RxNorm: 127871 1 Tablet(s) PO BID 08/20/2015 09/02/2015 Inactive magnesium oxide 400 mg tablet RxNorm: 519906 TAKE ONE TABLET BY MO UT TWICE A DAY 01/20/2015 01/14/2016 In active gabapentin 300 mg ca psule RxNorm: 655493 TAKE ONE CAPSULE BY M OUTH THREE TIMES A DAY 01/20/2015 05/19/2015 Inactive magnesium oxide 400 mg tablet RxNorm: 204959 1 Tablet(s) PO BID 01/17/2015 05/16/2015 Inactive gabapentin 300 mg ca psule RxNorm: 034511 1 Capsule(s) PO TID 01/17/2015 05/16/2015 Inactive allopurinol 100 mg t ablet RxNorm: 473974 TAKE ONE TABLET BY MO UTH DAILY 10/18/2014 10/12/2015 In active Kenalog 40 mg/mL cassius pension for injection RxNorm: 4654993 1 Milliliter(s) Inj 09/21/2014 09/21/2014 In active allopurinol 100 mg t ablet RxNorm: 464985 1 Tablet(s) PO daily 09/21/2014 10/17/2014 Inactive gabapentin 300 mg ca psule RxNorm: 897386 1 Capsule(s) PO TID 09/12/2014 01/09/2015 Inactive gabapentin 300 mg ca psule RxNorm: 214058 1 Capsule(s) PO TID 09/12/2014 09/11/2014 Inactive magnesium oxide 400 mg tablet RxNorm: 901600 1 Tablet(s) PO BID 09/12/2014 01/09/2015 Inactive magnesium oxide 400 mg tablet RxNorm: 476999 1 Tablet(s) PO BID 09/12/2014 09/11/2014 Inactive lisinopril 5 mg tablet RxNorm: 005538 1 Tablet(s) PO daily No Start Date Active Pepcid 20 mg tablet RxNorm: 997291 1 Tablet(s) PO BID No Start Date Active minocycline 50 mg ca psule RxNorm: 027635 1 Capsule(s) PO BID o rdered by Dr. Saravia No Start Date Active Coreg 6.25 mg tablet RxNorm: 523158 1 Tablet(s) PO BID No Start Date Active Combivent Respimat 2 0 mcg-100 mcg/actuation solution for inhalation RxNorm: 3109057 1 Puff(s) INH as needed No Start Date Active Ventolin Refill 90 m cg/actuation aerosol inhaler RxNorm: 649803 2 INH as needed No Start Date Active furosemide 40 mg tablet RxNorm: 427444 1 Tablet(s) PO daily No Start Date Active Centrum Silver Women oral RxNorm: [address] art Date Active aspirin 81 mg capsul e,delayed release RxNorm: 881532 1 Capsule(s) PO daily No Start Date Active warfarin 1 mg tablet RxNorm: 275038 oral No Start Date 09/13/2015 Inactive Protonix 40 mg table t,delayed release RxNorm: 403773 1 Tablet(s) PO daily No Start Date 09/16/2016 Inactive warfarin 5 mg tablet RxNorm: 947242 1 Tablet(s) PO daily 1.5 tabs on Thu No Start Date 12/04/2015 Inactive Medication Administered Medication Codes Instruc tions Start Date Status Kenalog 40 mg/mL suspension for injection RxNorm: 6097075 Milliliter 01/07/2016 No longer Active Kenalog 40 mg/mL suspension for injection RxNorm: 0126659 1Milliliter 09/21/2014 N o longer Active Immunizations No Immunization data Assessments Condition Codes Effectiv e Dates Acquired absence of left leg above knee [...] disease, unspecified ICD-10: I73.9 ICD-9: 443.9 12/28/2014 Essential (primary) hypertension ICD -10: I10 ICD-9: 401.9 12/28/2014 Anticoagulated on Coumadin ICD-9: V58.83 10/31/2014 ESSENTIAL HYPERTENSION ICD-9: 401.9 10/31/2014 PAD (peripheral artery disease) ICD- 9: 443.9 10/31/2014 SCLERITIS ICD-9: 379.00 10/02/2014 GOUT ICD-9: 274.9 2014 COPD (chronic obstructive pulmonary disease) ICD-9: 496 09/21/2014 Reason For Visit Reason For Visit Effective Dates Notes gait abnormality 08/14/2016 abdominal pain 04/16/2016 foot [...] Code Item Item Code Result Date Pt Hzp8604 PT 64.8 seconds 01/10/2016 Pt Zcz2331 INR 8.6 01/10/2016 Pt Gel5437 Low Intensity - 1.5-2.0 01/10/2016 Pt Ajt0597 Mod intensity - 2.0-3.0 01/10/2016 Pt Elb2499 Hi intensity - 3.0-4.0 01/10/2016 Pt Ddu7064 PT 32.1 seconds 11/01/2014 Pt Gqu6691 INR 3.2 11/01/2014 Pt Dfp2829 Low Intensity - 1.5-2.0 11/01/2014 Pt Pnv0760 Mod intensity - 2.0-3.0 11/01/2014 Pt Vmq8345 Hi intensity - 3.0-4.0 11/01/2014 Pt Gei9233 PT 30.2 seconds 10/03/2014 Pt Mlf9359 INR 3.0 10/03/2014 Pt Gwe7042 Low Intensity - 1.5-2.0 10/03/2014 Pt Rfd6482 Mod intensity - 2.0-3.0 10/03/2014 Pt Iup9892 Hi intensity - 3.0-4.0 10/03/2014 D-Dimer D-DIMER 475 NG/ML 09/25/2014 D-Dimer COMMENT 09/25/2014 Magnesium Ord90 Mag 1.1 Result Verified By Repeat Analysis mg/dL 09/22/2014 Pt Tbk0903 PT 32.0 seconds 09/22/2014 Pt Gri0259 INR 3.2 09/22/2014 Pt Ufb7892 Low Intensity - 1.5-2.0 09/22/2014 Pt Bpw7456 Mod intensity - 2.0-3.0 09/22/2014 Pt Ylq3079 Hi intensity - 3.0-4.0 09/22/2014 Comp Metabolic Dsu231 NA 137 mEq/L 09/22/2014 Comp Metabolic Enb866 K 4.2 mEq/L 09/22/2014 Comp Metabolic Xuu444 CL 102 mEq/L 09/22/2014 Comp Metabolic Dhe417 CO2 25.0 mEq/L 09/22/2014 Comp Metabolic Zan267 AN ION GAP 14 09/22/2014 Comp Metabolic Ook313 GL UCOSE 94 mg/dL 09/22/2014 Comp Metabolic Cxw704 Cr eat 0.8 mg/dL 09/22/2014 Comp Metabolic Opa193 eG FR 102 ml/min/1.73m2 09/06 Comp Metabolic Zuj375 BUN 15 mg/dL 09/22/2014 Comp Metabolic Rez039 B/ C Ratio 18.8 Ratio 09/22/2014 Comp Metabolic Yxt913 CA LCIUM 9.4 mg/dL 09/22/2014 Comp Metabolic Wrt773 AL K PHOS 65 U/L 09/22/2014 Comp Metabolic Yps710 T(SGOT) 15 U/L 09/22/2014 Comp Metabolic Frf035 AL T(SGPT) 8 U/L 09/22/2014 Comp Metabolic Xtd522 BI LI T 0.4 mg/dL 09/22/2014 Comp Metabolic Nqv291 AL BUMIN 4.0 g/dL 09/22/2014 Comp Metabolic Ost837 TP RO 6.8 g/dL 09/22/2014 Comp Metabolic Lhd115 GL OB 2.8 g/dL 09/22/2014 Comp Metabolic Mee673 A/ G Ratio 1.4 Ratio 09/22/2014 Comp Metabolic Ive513 Os mo 274 mOsmo 09/22/2014 C-Reactive Protein [...] Result Effective Dates Constitutional No recent illness 08/14/2016 Constitutional No [...] Procedure Codes Date THER/PROPH/DIAG INJ SC/IM CPT-4: 28757Rvxuojg 01/07/2016 TRIAMCINOLONE ACET I [place] NOS CPT-4: Q2262Bnnfvyq 01/07/2016 TRIAMCINOLONE ACET I [place] NOS CPT-4: K4351Dxlqcec 09/21/2014 THER/PROPH/DIAG INJ SC/IM CPT-4: 11913Hdxlucf 09/21/2014 Vital Signs Date Vital 08/14/2016 Blood Pressure 1: 122/62 Code: 8480-6 Heart Rate 1: 56 bpm Height: 5'3" SpO2: 94% Weight: 04/16/2016 Blood Pressure 1: 138/76 Code: 8480-6 Heart Rate 1: 67 bpm Height: 5'3" SpO2: 98% Temperature: 36.9 (C ) / 98.5 (F) Weight: 01/21/2016 Blood Pressure 1: 128/78 Code: 8480-6 BMI: 33.3 Code: 83710-4 Heart Rate 1: 72 bpm Height: 5'3" SpO2: 97% Weight: 188 lbs 01/10/2016 Blood Pressure 1: 132/76 Code: 8480-6 BMI: 33.1 Code: 04396-1 Heart Rate 1: 72 bpm Height: 5'3" SpO2: 97% Weight: 187 lbs 12/25/2015 Blood Pressure 1: 154/82 Code: 8480-6 BMI: 33.1 Code: 43790-2 Heart Rate 1: 72 bpm Height: 5'3" SpO2: 97% Weight: 187 lbs 10/11/2015 Blood Pressure 1: 110/62 Code: 8480-6 BMI: 34.7 Code: 85250-7 Heart Rate 1: 70 bpm Height: 5'3" SpO2: 93% Weight: 196 lbs 08/24/2015 Blood Pressure 1: 132/62 Code: 8480-6 BMI: 35.3 Code: 23688-3 Heart Rate 1: 62 bpm Height: 5'3" SpO2: 93% Weight: 199 lbs 08/20/2015 Blood Pressure 1: 140/68 Code: 8480-6 BMI: 35.3 Code: 05994-7 Heart Rate 1: 74 bpm Height: 5'3" SpO2: 96% Weight: 199 lbs 12/28/2014 Blood Pressure 1: 130/72 Code: 8480-6 BMI: 33.1 Code: 45932-7 Heart Rate 1: 60 bpm Height: 5'3" SpO2: 97% Weight: 187 lbs 10/31/2014 Blood Pressure 1: 118/72 Code: 8480-6 BMI: 31.2 Code: 86748-2 Heart Rate 1: 58 bpm Height: 5'3" SpO2: 98% Weight: 176 lbs 10/02/2014 Blood Pressure 1: 138/74 Code: 8480-6 BMI: 30.6 Code: 10683-4 Heart Rate 1: 72 bpm Height: 5'3" Weight: 173 lbs 09/21/2014 Blood Pressure 1: 138/72 Code: 8480-6 BMI: 30.5 Code: 77142-0 Heart Rate 1: 60 bpm Height: 5'3" SpO2: 96% Weight: 172 lbs Functional Status No Functional Status data History of Present Illness Symptom Name Status Resu lt Effective Date Notes gait abnormality Quality unsteady 08/14/2016 None gait [...] None Hospital Follow Up _ [facility] er: diverticulitis 10/11/2015 None Hospital Follow Up [...] Encounters Encounter Performer Loca tion Codes Date 68615 EST. PATIENT, LEVEL IV Diagnosis: Acquired absence of left leg above knee[ICD10: Z89.612] Rox Alvarez MD, [facility] CPT-4: 29062 08/14/2016 67389 EST. PATIENT, LEVEL III Diagnosis: Other specified bacterial intestinal infections[ICD10: A04.8] Rox Alvarez MD [facility] CPT-4: 48391 04/16/2016 25382 EST. PATIENT, LEVEL II Diagnosis: Pain in right foot[ICD10: M79.671] Rox Alvarez MD [facility] CPT-4: 19181 01/21/2016 32797 EST. PATIENT, LEVEL III Diagnosis: Encounter for therapeutic drug level monitoring[ICD10: Z51.81] Diagnosis: Rash and other nonspecific skin eruption[ICD10: R21] Rox Alvarez MD [facility] CPT-4: 96377 01/10/2016 60114 EST. PATIENT, LEVEL III Diagnosis: Rash and other nonspecific skin eruption[ICD10: R21] Rox Alvarez MD [facility] CPT-4: 17872 01/07/2016 ([id number]) Miscellaneou s no charge Diagnosis: Cutaneous abscess of left axilla[ICD10: L02.412] Rox Alvarez MD [facility] CPT-4: 63954 01/02/2016 (47027) Miscellaneou s no charge Diagnosis: Cutaneous abscess of left axilla[ICD10: L02.412] Rox Alvarez MD [facility] CPT-4: 70702 01/01/2016 (60071) Miscellaneou s no charge Diagnosis: Cutaneous abscess of left axilla[ICD10: L02.412] Rox Alvarez MD, [facility] CPT-4: 29834 12/31/2015 ([id number]) Patient adm itted to the hospital from clinic (NO CHARGE) Diagnosis: Cutaneous abscess of left axilla[ICD10: L02.412] Rox Alvarez MD [facility] CPT-4: 87625Y 12/25/2015 24551 EST. PATIENT, LEVEL III Diagnosis: Encounter for follow-up examination after completed treatment for conditions other than malignant neoplasm[ICD10: Z09] Diagnosis: Diverticulitis of intestine, part unspecified, without perforation or abscess with bleeding[ICD10: K57.93] Diagnosis: Cellulitis of left toe[ICD10: L03.032] Diagnosis: Other obesity due to excess calories[ICD10: E66.09] Diagnosis: Other rn long term care (current) drug therapy[ICD10: Z79.899] Rox Alvarez MD, [facility] CPT-4: 69338 10/11/2015 ([id number]) Miscellaneou s no charge Diagnosis: Encounter for therapeutic drug level monitoring[ICD10: Z51.81] Diagnosis: Other acute osteomyelitis, left ankle and foot[ICD10: M86.172] Rox Alvarez MD, [facility] CPT-4: 20276 08/24/2015 64156 EST. PATIENT, LEVEL IV Diagnosis: Cellulitis of left toe[ICD10: L03.032] Rox Alvarez MD, [facility] CPT-4: 00578 08/20/2015 50651 EST. PATIENT, LEVEL III Diagnosis: Essential (primary) hypertension[ICD10: I10] Diagnosis: Peripheral vascular disease, unspecified[ICD10: I73.9] Diagnosis: Dermatitis, unspecified[ICD10: L30.9] Rox Alvarez MD, [facility] CPT- 4: 87852 12/28/2014 ([id number]) 49617 EST. [facility] Diagnosis: ESSENTIAL HYPERTENSION[ICD9: 401.9] Diagnosis: PAD (peripheral artery disease)[ICD9: 443.9] Diagnosis: Anticoagulated on Coumadin[ICD9: V58.83] Emy Alvarez MD, [facility] CPT-4: 93856 10/31/2014 ([id number]) 86404 EST. P ATIENT, LEVEL III Diagnosis: PAD (peripheral artery disease)[ICD9: 443.9] Diagnosis: Anticoagulated on Coumadin[ICD9: V58.83] Diagnosis: SCLERITIS[ICD9: 379.00] Diagnosis: ESSENTIAL HYPERTENSION[ICD9: 401.9] Selena Alvarez MD, [facility] CPT- 4: 17254 10/02/2014 ([id number]) OFFICE VISI T, NEW - LEVEL 4 Diagnosis: GOUT[ICD9: 274.9] Diagnosis: COPD (chronic obstructive pulmonary disease)[ICD9: 496] Diagnosis: PAD (peripheral artery disease)[ICD9: 443.9] Diagnosis: ESSENTIAL HYPERTENSION[ICD9: 401.9] [facility] CPT- 4: 34936 09/21/2014 Plan of Care Planned Activity Notes C odes Status Date Visit Plan: Pt is here for a [...] mobility evaluation. 08/14/2016 Appointment: Rox Luciano WPtel: [facility] ([facility] Complex 08/14/2016 Patient Education: Patient [...] upset or stomach pain. 2016 Appointment: Rox Luciano WPtel: [phone] [facility] (15 min) Moderate 04/16/2016 Patient Education: Patient Medication Summary Completed 04/16/2016 Patient Education: Smoking and Tobacco Addiction Completed 04/16/2016 Referral: Dr Arboleda Referral Completed 02/14/2016 Care Plan: Referral Order SNOMED-CT : [id number] Pending 01/29/2016 Visit Plan: Right foot pain [...] warmth, discharge. 01/10/2016 Appointment: Rox Luciano WPtel: [address] [place], [place] [address] (30 min) [facility] 01/10/2016 Patient Education: Patient Medication [...] further I&D. 2015 Appointment: Emy Westbrook WPtel: [phone] [place] (15 min) Moderate 12/25/2015 Patient Education: [...] management. 10/11/2015 Appointment: Rox Luciano WPtel: [phone] [facility] (30 min) Complex 10/11/2015 Patient Education: Patient Medication Summary Completed 10/11/2015 Patient Education: Smoking and Tobacco Addiction Completed 10/11/2015 Patient Education: Obesity Completed 10/11/2015 Referral: Gavino Navarro they are g oing to call if they get him in before if not we will call Dr shook Initiated 09/27/2015 Appointment: Emy Westbrook WPtel: [phone] (15 min) Moderate 08/24/2015 Patient Education: Patient Medication Summary Completed 08/24/2015 Patient Education: Smoking and Tobacco Addiction Completed 08/24/2015 Patient Education: Patient Medication Summary Completed 08/23/2015 Appointment: Emy Westbrook WPtel: [phone] [phone] (30 min) Complex 08/22/2015 Referral: [facility] W[facility]el: [facility] Referral Initiated 08/22/2015 Visit Plan: Pt on [...] Completed 12/28/2014 Appointment: [phone] Follow up 12/20/2014 Visit Plan: Hypertension - [...] Plan: Dr. Alvarez in to see shi perez. Gout Attack - pt given RX for [...] Plan: Dr. Alvarez in to see shi perez. Gout Attack - pt given RX for [...] 09/21/2014 Care Plan: Referral Order SNOMED-CT : [id number] Ordered 09/21/2014 Appointment: Selena Alvarez WPtel: [address] [place], [place] [address] [place] (S) New Patient 09/20/2014 Referral: [facility] Wren [phone] [facility] [place] Referral Initiated Referral: Gavino Navarro Referral Initiated Referral: [facility] [place] Referral Initiated Referral: Dr Arboleda Referral [...] with wound care management. probiotics - culture viviane or milagros rodrigez [facility]. . Gastroenteritis - discussed need to [...] of stomach upset or stomach pain. . Left axilla absces s - packing [...]
--- OUTSIDE RECORDS SUMMARY | 2019-08-20 18:21 | XMS REPORT | CCD ---
Author Author Bony Alvarez Organization Selena Alvarez MD, [facility] Address [address] [place] [address] Phone Care Team Providers Care Tip Bander Name Role Phone PP Unavailable CCM Unavailable Summary Purpose Interface Exchange Insurance Providers Payer name Policy type / Coverage type Covered green party ID Effective Begin Date Effective End Date WPS Medicare Part B 51 [id number] Unknown [employer] - other than primary [id number] Unknown Family history Father Diagnosis Age At Onset Hyperlipidemia Unknown Coronary Artery Disease Unknown Stroke Unknown Cancer Unknown Congestive heart failure Unknown Mother Diagnosis Age At Onset Hypertension Unknown kidney disease Unknown Cancer Unknown Stroke Unknown Hyperlipidemia Unknown Coronary Artery Disease Unknown Congestive heart failure Unknown Social History Social History Element Codes Description Effective Dates Tobacco history SNOMED CT: 35828318 Current some days smoker 09/21/2014 Allergies, Adverse [...] Active 10/10/2015 Unknown Other long term care social worker (cur rent) drug therapy ICD-9: V58.69 ICD-10: [...] ICD-9: V67.59 ICD-10: Z09 10/10/2015 Active Other long term care social worker (cur rent) drug therapy ICD-9: V58.69 ICD-10: [...] 7.5 mg-a cetaminophen 325 mg tablet RxNorm: 455589 1 Tablet(s) PO QID as needed 08/14/2016 09/12/2016 Active cyclobenzaprine 5 mg tablet RxNorm: 855236 1 Tablet(s) PO TID as needed 07/25/2016 07/29/2016 In active cyclobenzaprine 5 mg tablet RxNorm: 169712 1 Tablet(s) PO TID as needed 07/25/2016 07/24/2016 In active hydrocodone 7.5 mg-a cetaminophen 325 mg tablet RxNorm: 856458 1 Tablet(s) PO QID as needed 07/21/2016 08/13/2016 Inactive warfarin 1 mg tablet RxNorm: 776110 TAKE ONE TABLET BY MOUTH EVERY EVENING 06/26/2016 08/04/2016 In active hydrocodone 7.5 mg-a cetaminophen 325 mg tablet RxNorm: 036977 1 Tablet(s) PO QID as needed 06/24/2016 07/20/2016 Inactive hydrocodone 5 mg-yanira taminophen 325 mg tablet RxNorm: 279172 1 Tablet(s) PO Q6 as needed for pain 06/09/2016 06/10/2016 Inactive warfarin 1 mg tablet RxNorm: 142845 TAKE ONE TABLET BY MOUTH EVERY EVENING 06/02/2016 06/21/2016 In active allopurinol 100 mg t ablet RxNorm: 725655 TAKE ONE TABLET BY MO [facility] DAILY 05/21/2016 10/17/2016 Ac tive hydrocodone 7.5 mg-a cetaminophen 325 mg tablet RxNorm: 019785 1 Tablet(s) PO QID as needed 05/09/2016 06/07/2016 Inactive gabapentin 300 mg ca psule RxNorm: 562243 Capsule(s) TAKE ONE C APSULE BY MOUTH THREE TIMES A DAY 04/25/2016 10/21/2016 Active promethazine 25 mg t ablet RxNorm: 095432 TAKE ONE TABLET BY MO UTH THREE TIMES A DAY NEEDED 2016 05/01/2016 Inactive warfarin 1 mg tablet RxNorm: 193773 TAKE ONE TABLET BY MOUTH EVERY EVENING 2016 05/31/2016 In active promethazine 25 mg t ablet RxNorm: 748106 1 Tablet(s) PO TID as needed 04/16/2016 04/21/2016 In active warfarin 1 mg tablet RxNorm: 708971 TAKE ONE TABLET BY MOUTH EVERY EVENING 02/13/2016 04/12/2016 In active magnesium oxide 400 mg tablet RxNorm: 741304 TAKE ONE TABLET BY MO UT TWICE A DAY 02/07/2016 01/01/2017 Ac tive hydrocodone 5 mg-yanira taminophen 325 mg tablet RxNorm: 315346 1 Tablet(s) PO Q6 as needed for pain 01/21/2016 02/19/2016 Inactive warfarin 1 mg tablet RxNorm: 105769 TAKE ONE TABLET BY MOUTH EVERY EVENING 01/17/2016 02/05/2016 In active gabapentin 300 mg ca psule RxNorm: 042790 Capsule(s) TAKE ONE C APSULE BY MOUTH THREE TIMES A DAY 01/11/2016 04/24/2016 Inactive prednisone 10 mg tablet RxNorm: 019689 Tablet(s) PO UD 01/10/2016 No Stop Date Active 60mg x2 days, then 50mg x2 days, then 40mg x2 days, 30mg x2 days, 20mg x2 days, 10mg x2days, 5mg every other day x 2 doses Kenalog 40 mg/mL cassius pension for injection RxNorm: 2945770 Milliliter(s) Inj 01/07/2016 01/07/2016 In active warfarin 1 mg tablet RxNorm: 400203 TAKE ONE TABLET BY MOUTH EVERY EVENING 01/01/2016 01/16/2016 In active hydrocodone 5 mg-yanira taminophen 325 mg tablet RxNorm: 530843 1 Tablet(s) PO Q6 as needed for pain 01/01/2016 01/15/2016 Inactive gabapentin 300 mg ca psule RxNorm: 995463 TAKE ONE CAPSULE BY M OUT THREE TIMES A DAY 12/12/2015 01/10/2016 Inactive warfarin 5 mg tablet RxNorm: 782375 1 Tablet(s) PO daily 12/05/2015 No Stop Date Active warfarin 1 mg tablet RxNorm: 832313 TAKE ONE TABLET BY MOUTH EVERY EVENING 11/13/2015 12/22/2015 In active hydrocodone 5 mg-yanira taminophen 325 mg tablet RxNorm: 446901 1 Tablet(s) PO Q6 as needed for pain 10/26/2015 11/09/2015 Inactive allopurinol 100 mg t ablet RxNorm: 580839 1 Tablet(s) PO daily TAKE ONE TABLET BY MOUTH DAILY 10/18/2015 04/14/2016 Inactive hydrocodone 5 mg-yanira taminophen 325 mg tablet RxNorm: 032833 1 Tablet(s) PO Q6 as needed for pain 09/26/2015 10/10/2015 Inactive gabapentin 300 mg ca psule RxNorm: 425224 TAKE ONE CAPSULE BY M OUTH THREE TIMES A DAY 09/14/2015 12/11/2015 Inactive warfarin 1 mg tablet RxNorm: 884939 1 Tablet(s) PO QPM 09/14/2015 11/12/2015 Inactive hydrocodone 5 mg-yanira taminophen 325 mg tablet RxNorm: 709690 1 Tablet(s) PO Q6 as needed for pain 09/12/2015 09/25/2015 Inactive hydrocodone 5 mg-yanira taminophen 325 mg tablet RxNorm: 854444 1 Tablet(s) PO Q6 as needed for pain 08/22/2015 09/05/2015 Inactive Bactrim DS 800 mg-16 0 mg tablet RxNorm: 407020 1 Tablet(s) PO BID 08/20/2015 09/02/2015 Inactive magnesium oxide 400 mg tablet RxNorm: 534627 TAKE ONE TABLET BY [facility] TWICE A DAY 01/20/2015 01/14/2016 In active gabapentin 300 mg ca psule RxNorm: 426857 TAKE ONE CAPSULE BY M OUTH THREE TIMES A DAY 01/20/2015 05/19/2015 Inactive magnesium oxide 400 mg tablet RxNorm: 697375 1 Tablet(s) PO BID 01/17/2015 05/16/2015 Inactive gabapentin 300 mg ca psule RxNorm: 913176 1 Capsule(s) PO TID 01/17/2015 05/16/2015 Inactive allopurinol 100 mg t ablet RxNorm: 383775 TAKE ONE TABLET BY [facility] DAILY 10/18/2014 10/12/2015 In active Kenalog 40 mg/mL cassius pension for injection RxNorm: 0545577 1 Milliliter(s) Inj 09/21/2014 09/21/2014 In active allopurinol 100 mg t ablet RxNorm: 320878 1 Tablet(s) PO daily 09/21/2014 10/17/2014 Inactive gabapentin 300 mg ca psule RxNorm: 693456 1 Capsule(s) PO TID 09/12/2014 01/09/2015 Inactive gabapentin 300 mg ca psule RxNorm: 752479 1 Capsule(s) PO TID 09/12/2014 09/11/2014 Inactive magnesium oxide 400 mg tablet RxNorm: 532190 1 Tablet(s) PO BID 09/12/2014 01/09/2015 Inactive magnesium oxide 400 mg tablet RxNorm: 919546 1 Tablet(s) PO BID 09/12/2014 09/11/2014 Inactive lisinopril 5 mg tablet RxNorm: 479296 1 Tablet(s) PO daily No Start Date Active Protonix 40 mg table t,delayed release RxNorm: 010567 1 Tablet(s) PO daily No Start Date Active minocycline 50 mg ca psule RxNorm: 190470 1 Capsule(s) PO BID o rdered by Dr. Saravia No Start Date Active Coreg 6.25 mg tablet RxNorm: 925709 1 Tablet(s) PO BID No Start Date Active Combivent Respimat 2 0 mcg-100 mcg/actuation solution for inhalation RxNorm: 6422279 1 Puff(s) INH as needed No Start Date Active Ventolin Refill 90 m cg/actuation aerosol inhaler RxNorm: 356634 2 INH as needed No Start Date Active furosemide 40 mg tablet RxNorm: 110443 1 Tablet(s) PO daily No Start Date Active Centrum Silver Women oral RxNorm: [address] art Date Active aspirin 81 mg capsul e,delayed release RxNorm: 547549 1 Capsule(s) PO daily No Start Date Active warfarin 1 mg tablet RxNorm: 254190 oral No Start Date 09/13/2015 Inactive warfarin 5 mg tablet RxNorm: 573162 1 Tablet(s) PO daily 1.5 tabs on Thu No Start Date 12/04/2015 Inactive Medication Administered Medication Codes Instruc tions Start Date Status Kenalog 40 mg/mL suspension for injection RxNorm: 6948290 Milliliter 01/07/2016 No longer Active Kenalog 40 mg/mL suspension for injection RxNorm: 4828513 1Milliliter 09/21/2014 N o longer Active Immunizations [...] neoplasm ICD-10: Z09 ICD-9: V67.59 10/11/2015 Other longterm (current) drug therapy ICD-10: Z79.899 ICD-9: V58.69 [...] Code Item Item Code Result Date Pt Bbz7349 PT 64.8 seconds 01/10/2016 Pt Wfi7152 INR 8.6 01/10/2016 Pt Csn1465 Low Intensity - 1.5-2.0 01/10/2016 Pt Fbf0483 Mod intensity - 2.0-3.0 01/10/2016 Pt Ixf6830 Hi intensity - 3.0-4.0 01/10/2016 Pt Hhu2310 PT 32.1 seconds 11/01/2014 Pt Dya4298 INR 3.2 11/01/2014 Pt Xax3207 Low Intensity - 1.5-2.0 11/01/2014 Pt Ess6285 Mod intensity - 2.0-3.0 11/01/2014 Pt Beu9061 Hi intensity - 3.0-4.0 11/01/2014 Pt Ysd2766 PT 30.2 seconds 10/03/2014 Pt Ozn2262 INR 3.0 10/03/2014 Pt Ecd5208 Low Intensity - 1.5-2.0 10/03/2014 Pt Ymr2967 Mod intensity - 2.0-3.0 10/03/2014 Pt Sce8778 Hi intensity - 3.0-4.0 10/03/2014 D-Dimer D-DIMER 475 NG/ML 09/25/2014 D-Dimer COMMENT 09/25/2014 Magnesium Ord90 Mag 1.1 Result Verified By Repeat Analysis mg/dL 09/22/2014 Pt Vbu7338 PT 32.0 seconds 09/22/2014 Pt Hvu0629 INR 3.2 09/22/2014 Pt Xjp5179 Low Intensity - 1.5-2.0 09/22/2014 Pt Lbm8933 Mod intensity - 2.0-3.0 09/22/2014 Pt Xon0570 Hi intensity - 3.0-4.0 09/22/2014 Comp Metabolic Jny829 NA 137 mEq/L 09/22/2014 Comp Metabolic Eau810 K 4.2 mEq/L 09/22/2014 Comp Metabolic Ytk518 CL 102 mEq/L 09/22/2014 Comp Metabolic Cod356 CO2 25.0 mEq/L 09/22/2014 Comp Metabolic Kxp167 AN ION GAP 14 09/22/2014 Comp Metabolic Skz401 GL UCOSE 94 mg/dL 09/22/2014 Comp Metabolic Acp889 Cr eat 0.8 mg/dL 09/22/2014 Comp Metabolic Hbo526 eG FR 102 ml/min/1.73m2 09/06 Comp Metabolic Vdi544 BUN 15 mg/dL 09/22/2014 Comp Metabolic Poo899 B/ C Ratio 18.8 Ratio 09/22/2014 Comp Metabolic Qri868 CA LCIUM 9.4 mg/dL 09/22/2014 Comp Metabolic Kwq067 AL K PHOS 65 U/L 09/22/2014 Comp Metabolic Trr275 T(SGOT) 15 U/L 09/22/2014 Comp Metabolic Yry277 AL T(SGPT) 8 U/L 09/22/2014 Comp Metabolic Udx245 BI LI T 0.4 mg/dL 09/22/2014 Comp Metabolic Nss199 AL BUMIN 4.0 g/dL 09/22/2014 Comp Metabolic Kba992 TP RO 6.8 g/dL 09/22/2014 Comp Metabolic Rjq202 GL OB 2.8 g/dL 09/22/2014 Comp Metabolic Geh587 A/ G Ratio 1.4 Ratio 09/22/2014 Comp Metabolic Lgb316 Os mo 274 mOsmo 09/22/2014 C-Reactive Protein [...] clear 08/14/2016 None Full Exam - General 1995 Ears/Nose/Throat otoscopic exam Overall: tympanic membranes clear [...] Procedure Codes Date THER/PROPH/DIAG INJ SC/IM CPT-4: 95261Ghceosm 01/07/2016 TRIAMCINOLONE ACET I [place] NOS CPT-4: B9711Glaqmff 01/07/2016 TRIAMCINOLONE ACET I [place] NOS CPT-4: A1098Gpxblxh 09/21/2014 THER/PROPH/DIAG INJ SC/IM CPT-4: 45018Jqjpltp 09/21/2014 Vital Signs Date Vital 08/14/2016 Blood Pressure 1: 122/62 Code: 8480-6 Heart Rate 1: 56 bpm Height: 5'3" SpO2: 94% Weight: 04/16/2016 Blood Pressure 1: 138/76 Code: 8480-6 Heart Rate 1: 67 bpm Height: 5'3" SpO2: 98% Temperature: 36.9 (C ) / 98.5 (F) Weight: 01/21/2016 Blood Pressure 1: 128/78 Code: 8480-6 BMI: 33.3 Code: 03032-9 Heart Rate 1: 72 bpm Height: 5'3" SpO2: 97% Weight: 188 lbs 01/10/2016 Blood Pressure 1: 132/76 Code: 8480-6 BMI: 33.1 Code: 24945-5 Heart Rate 1: 72 bpm Height: 5'3" SpO2: 97% Weight: 187 lbs 12/25/2015 Blood Pressure 1: 154/82 Code: 8480-6 BMI: 33.1 Code: 28787-0 Heart Rate 1: 72 bpm Height: 5'3" SpO2: 97% Weight: 187 lbs 10/11/2015 Blood Pressure 1: 110/62 Code: 8480-6 BMI: 34.7 Code: 82981-9 Heart Rate 1: 70 bpm Height: 5'3" SpO2: 93% Weight: 196 lbs 08/24/2015 Blood Pressure 1: 132/62 Code: 8480-6 BMI: 35.3 Code: 30956-4 Heart Rate 1: 62 bpm Height: 5'3" SpO2: 93% Weight: 199 lbs 08/20/2015 Blood Pressure 1: 140/68 Code: 8480-6 BMI: 35.3 Code: 06759-9 Heart Rate 1: 74 bpm Height: 5'3" SpO2: 96% Weight: 199 lbs 12/28/2014 Blood Pressure 1: 130/72 Code: 8480-6 BMI: 33.1 Code: 53404-7 Heart Rate 1: 60 bpm Height: 5'3" SpO2: 97% Weight: 187 lbs 10/31/2014 Blood Pressure 1: 118/72 Code: 8480-6 BMI: 31.2 Code: 18128-1 Heart Rate 1: 58 bpm Height: 5'3" SpO2: 98% Weight: 176 lbs 10/02/2014 Blood Pressure 1: 138/74 Code: 8480-6 BMI: 30.6 Code: 84199-3 Heart Rate 1: 72 bpm Height: 5'3" Weight: 173 lbs 09/21/2014 Blood Pressure 1: 138/72 Code: 8480-6 BMI: 30.5 Code: 83140-3 Heart Rate 1: 60 bpm Height: 5'3" [...] daily 12/25/2015 None Hospital Follow Up _ [facility] er: diverticulitis 10/11/2015 None Hospital Follow Up [...] Encounters Encounter Performer Loca tion Codes Date 90924 EST. 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 PATIENT, LEVEL III Diagnosis: Other specified bacterial intestinal infections[ICD10: A04.8] Rox Alvarez MD [facility] CPT-4: 11814 04/16/2016 54239 EST. PATIENT, LEVEL II Diagnosis: Pain in right foot[ICD10: M79.671] Rox Alvarez MD [facility] CPT-4: 12198 01/21/2016 60737 EST. PATIENT, LEVEL III Diagnosis: Encounter for therapeutic drug level monitoring[ICD10: Z51.81] Diagnosis: Rash and other nonspecific skin eruption[ICD10: R21] Rox Alvarez MD [facility] CPT-4: 18345 01/10/2016 07843 EST. PATIENT, LEVEL III Diagnosis: Rash and other nonspecific skin eruption[ICD10: R21] Rox Alvarez MD [facility] CPT-4: 77234 01/07/2016 ([id number]) Miscellaneou s no charge Diagnosis: Cutaneous abscess of left axilla[ICD10: L02.412] Rox Alvarez MD [facility] CPT-4: 94615 01/02/2016 ([id number]) Miscellaneou s no charge Diagnosis: Cutaneous abscess of left axilla[ICD10: L02.412] Rox Alvarez MD [facility] CPT-4: 00264 01/01/2016 ([id number]) Miscellaneou s no charge Diagnosis: Cutaneous abscess of left axilla[ICD10: L02.412] Rox Alvarez MD [facility] CPT-4: 96939 12/31/2015 ([id number]) Patient adm itted to the hospital from clinic (NO CHARGE) Diagnosis: Cutaneous abscess of left axilla[ICD10: L02.412] Rox Alvarez MD, [facility] CPT-4: 28836A 12/25/2015 79084 EST. PATIENT, LEVEL III Diagnosis: Encounter for follow-up examination after completed treatment for conditions other than malignant neoplasm[ICD10: Z09] Diagnosis: Diverticulitis of intestine, part unspecified, without perforation or abscess with bleeding[ICD10: K57.93] Diagnosis: Cellulitis of left toe[ICD10: L03.032] Diagnosis: Other obesity due to excess calories[ICD10: E66.09] Diagnosis: Other longterm (current) drug therapy[ICD10: Z79.899] [facility] CPT-4: 20536 10/11/2015 ([id number]) Miscellaneou s no charge Diagnosis: Encounter for therapeutic drug level monitoring[ICD10: Z51.81] Diagnosis: Other acute osteomyelitis, left ankle and foot[ICD10: M86.172] [facility] CPT-4: 87396 08/24/2015 [id number] EST. PATIENT, LEVEL IV Diagnosis: Cellulitis of left toe[ICD10: L03.032] [facility] CPT-4: 69310 08/20/2015 83638 EST. PATIENT, LEVEL III Diagnosis: Essential (primary) hypertension[ICD10: I10] Diagnosis: Peripheral vascular disease, unspecified[ICD10: I73.9] Diagnosis: Dermatitis, unspecified[ICD10: L30.9] [facility] CPT- 4: 73711 12/28/2014 ([id number]) 58251 EST. [facility], LEVEL III Diagnosis: ESSENTIAL HYPERTENSION[ICD9: 401.9] Diagnosis: PAD (peripheral artery disease)[ICD9: 443.9] Diagnosis: Anticoagulated on Coumadin[ICD9: V58.83] [facility] CPT-4: 22345 10/31/2014 ([id number]) 11527 EST. P ATIENT, LEVEL III Diagnosis: PAD (peripheral artery disease)[ICD9: 443.9] Diagnosis: Anticoagulated on Coumadin[ICD9: V58.83] Diagnosis: SCLERITIS[ICD9: 379.00] Diagnosis: ESSENTIAL HYPERTENSION[ICD9: 401.9] [facility] CPT- 4: 73976 10/02/2014 ([id number]) [facility] - LEVEL 4 Diagnosis: GOUT[ICD9: 274.9] Diagnosis: COPD (chronic obstructive pulmonary disease)[ICD9: 496] Diagnosis: PAD (peripheral artery disease)[ICD9: 443.9] Diagnosis: ESSENTIAL HYPERTENSION[ICD9: 401.9] [facility] CPT- 4: 73892 09/21/2014 Plan of Care Planned Activity Notes [...] evaluation. 08/14/2016 [facility] [phone] [facility] (30 min) Complex 08/14/2016 Patient Education: [...] pain. 2016 Appointment: [facility] [phone] [facility] (15 min) Moderate 04/16/2016 Patient Education: Patient Medication Summary Completed 04/16/2016 Patient Education: Smoking and Tobacco Addiction Completed 04/16/2016 Referral: Dr Arboleda Referral Completed 02/14/2016 Care Plan: Referral Order SNOMED-CT : [id number] Pending 01/29/2016 Visit Plan: Right foot pain [...] warmth, discharge. 01/10/2016 Appointment: Rox Luciano WPtel: [address] [place], [place] [id number] (30 min) Complex 01/10/2016 Patient Education: Patient [...] - Pt states that he went to [facility] for the abscess and they started him on an antibiotic and told him to go home and drain it himself. Axilla to lateral chest wall is erythematous with large area of induration. 3 open sites with thick purulent drainage noted - Dr. Alvarez in to see pt - will admit for IV antibiotics and further I&D. 2015 Appointment: Emy Westbrook WPtel: [phone] [place] (15 min) Moderate 12/25/2015 Patient [...] care management. 10/11/2015 Appointment: Rox Luciano WPtel: [facility] (30 min) Complex 10/11/2015 Patient Education: Patient Medication Summary Completed 10/11/2015 Patient Education: Smoking and Tobacco Addiction Completed 10/11/2015 Patient Education: Obesity Completed 10/11/2015 Referral: Gavino Navarro they are g oing to call if they get him in before if not we will call Dr shook Initiated 09/27/2015 Appointment: Emy Westbrook WPtel: [address] [place], [place] [phone] (15 min) Moderate 08/24/2015 Patient Education: Patient Medication Summary Completed 08/24/2015 Patient Education: Smoking and Tobacco Addiction Completed 08/24/2015 Patient Education: Patient Medication Summary Completed 08/23/2015 Appointment: Emy Westbrook WPtel: [address] [place], [place] [phone] (30 min) Complex 08/22/2015 [facility] Referral Initiated 08/22/2015 Visit Plan: Pt on [...] Hypertension Completed 12/28/2014 Appointment: Selena Alvarez WPtel: [address] [place], [place] [id number] Follow up 12/20/2014 Visit Plan: Hypertension - [...] 09/21/2014 Care Plan: Referral Order SNOMED-CT : [id number] Ordered 09/21/2014 Appointment: Selena Alvarez [facility]el[facility] [phone] [facility] [place] ([place] New Patient 09/20/2014 Referral: Martinez Wren [facility]el[facility] [address] [facility] [place] Referral Initiated Referral: Gavino Navarro Referral Initiated Referral: [facility] [place] Referral Initiated Referral: Dr Arboleda Referral [...] with wound care management. probiotics - [facility]. . Gastroenteritis - discussed need to [...]
--- OUTSIDE RECORDS SUMMARY | 2019-08-20 18:22 | XMS REPORT | CCD ---
Author Author Bony Alvarez Organization Selena Alvarez MD, [facility] Address [address] [place] [address] Phone Care Team Providers Care Hand Laminator Name Role Phone PP Unavailable CCM Unavailable Summary Purpose Interface Exchange Insurance Providers Payer name Policy type / Coverage type Covered libertarian ID Effective Begin Date Effective End Date WPS Medicare Part B 51 [id number] Unknown [employer] - other than primary [id number] Unknown Family history Father Diagnosis Age At Onset Hyperlipidemia Unknown Coronary Artery Disease Unknown Stroke Unknown Cancer Unknown Congestive heart failure Unknown Mother Diagnosis Age At Onset Hypertension Unknown kidney disease Unknown Cancer Unknown Stroke Unknown Hyperlipidemia Unknown Coronary Artery Disease Unknown Congestive heart failure Unknown Social History Social History Element Codes Description Effective Dates Tobacco history SNOMED CT: 13146818 Current some days smoker 09/21/2014 Allergies, Adverse [...] V67.59 ICD-10: Z09 Active 10/10/2015 Unknown 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 ICD-9: V58.69 ICD-10: [...] ICD-9: V67.59 ICD-10: Z09 10/10/2015 Active 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 ICD-9: V58.69 ICD-10: [...] 7.5 mg-a cetaminophen 325 mg tablet RxNorm: 326334 1 Tablet(s) PO QID as needed 08/14/2016 09/12/2016 Active cyclobenzaprine 5 mg tablet RxNorm: 353523 1 Tablet(s) PO TID as needed 07/25/2016 07/29/2016 In active cyclobenzaprine 5 mg tablet RxNorm: 611773 1 Tablet(s) PO TID as needed 07/25/2016 07/24/2016 In active hydrocodone 7.5 mg-a cetaminophen 325 mg tablet RxNorm: 971668 1 Tablet(s) PO QID as needed 07/21/2016 08/13/2016 Inactive warfarin 1 mg tablet RxNorm: 064063 TAKE ONE TABLET BY MOUTH EVERY EVENING 06/26/2016 08/04/2016 In active hydrocodone 7.5 mg-a cetaminophen 325 mg tablet RxNorm: 424087 1 Tablet(s) PO QID as needed 06/24/2016 07/20/2016 Inactive hydrocodone 5 mg-yanira taminophen 325 mg tablet RxNorm: 095834 1 Tablet(s) PO Q6 as needed for pain 06/09/2016 06/10/2016 Inactive warfarin 1 mg tablet RxNorm: 447427 TAKE ONE TABLET BY MOUTH EVERY EVENING 06/02/2016 06/21/2016 In active allopurinol 100 mg t ablet RxNorm: 284696 TAKE ONE TABLET BY MO UT DAILY 05/21/2016 10/17/2016 Ac tive hydrocodone 7.5 mg-a cetaminophen 325 mg tablet RxNorm: 480439 1 Tablet(s) PO QID as needed 05/09/2016 06/07/2016 Inactive gabapentin 300 mg ca psule RxNorm: 723292 Capsule(s) TAKE ONE C APSULE BY MOUTH THREE TIMES A DAY 04/25/2016 10/21/2016 Active promethazine 25 mg t ablet RxNorm: 032029 TAKE ONE TABLET BY MO UTH THREE TIMES A DAY NEEDED 2016 05/01/2016 Inactive warfarin 1 mg tablet RxNorm: 440323 TAKE ONE TABLET BY MOUTH EVERY EVENING 2016 05/31/2016 In active promethazine 25 mg t ablet RxNorm: 808411 1 Tablet(s) PO TID as needed 04/16/2016 04/21/2016 In active warfarin 1 mg tablet RxNorm: 784291 TAKE ONE TABLET BY MOUTH EVERY EVENING 02/13/2016 04/12/2016 In active magnesium oxide 400 mg tablet RxNorm: 492455 TAKE ONE TABLET BY MO UT TWICE A DAY 02/07/2016 01/01/2017 Ac tive hydrocodone 5 mg-yanira taminophen 325 mg tablet RxNorm: 103000 1 Tablet(s) PO Q6 as needed for pain 01/21/2016 02/19/2016 Inactive warfarin 1 mg tablet RxNorm: 056639 TAKE ONE TABLET BY MOUTH EVERY EVENING 01/17/2016 02/05/2016 In active gabapentin 300 mg ca psule RxNorm: 436741 Capsule(s) TAKE ONE C APSULE BY MOUTH THREE TIMES A DAY 01/11/2016 04/24/2016 Inactive prednisone 10 mg tablet RxNorm: 490019 Tablet(s) PO UD 01/10/2016 No Stop Date Active 60mg x2 days, then 50mg x2 days, then 40mg x2 days, 30mg x2 days, 20mg x2 days, 10mg x2days, 5mg every other day x 2 doses Kenalog 40 mg/mL cassius pension for injection RxNorm: 1448029 Milliliter(s) Inj 01/07/2016 01/07/2016 In active warfarin 1 mg tablet RxNorm: 975536 TAKE ONE TABLET BY MOUTH EVERY EVENING 01/01/2016 01/16/2016 In active hydrocodone 5 mg-yanira taminophen 325 mg tablet RxNorm: 848023 1 Tablet(s) PO Q6 as needed for pain 01/01/2016 01/15/2016 Inactive gabapentin 300 mg ca psule RxNorm: 515737 TAKE ONE CAPSULE BY M [facility] THREE TIMES A DAY 12/12/2015 01/10/2016 Inactive warfarin 5 mg tablet RxNorm: 311107 1 Tablet(s) PO daily 12/05/2015 No Stop Date Active warfarin 1 mg tablet RxNorm: 001051 TAKE ONE TABLET BY MOUTH EVERY EVENING 11/13/2015 12/22/2015 In active hydrocodone 5 mg-yanira taminophen 325 mg tablet RxNorm: 149717 1 Tablet(s) PO Q6 as needed for pain 10/26/2015 11/09/2015 Inactive allopurinol 100 mg t ablet RxNorm: 835596 1 Tablet(s) PO daily TAKE ONE TABLET BY MOUTH DAILY 10/18/2015 04/14/2016 Inactive hydrocodone 5 mg-yanira taminophen 325 mg tablet RxNorm: 941758 1 Tablet(s) PO Q6 as needed for pain 09/26/2015 10/10/2015 Inactive gabapentin 300 mg ca psule RxNorm: 177070 TAKE ONE CAPSULE BY M OUTH THREE TIMES A DAY 09/14/2015 12/11/2015 Inactive warfarin 1 mg tablet RxNorm: 895631 1 Tablet(s) PO QPM 09/14/2015 11/12/2015 Inactive hydrocodone 5 mg-yanira taminophen 325 mg tablet RxNorm: 078057 1 Tablet(s) PO Q6 as needed for pain 09/12/2015 09/25/2015 Inactive hydrocodone 5 mg-yanira taminophen 325 mg tablet RxNorm: 226230 1 Tablet(s) PO Q6 as needed for pain 08/22/2015 09/05/2015 Inactive Bactrim DS 800 mg-16 0 mg tablet RxNorm: 503082 1 Tablet(s) PO BID 08/20/2015 09/02/2015 Inactive magnesium oxide 400 mg tablet RxNorm: 850647 TAKE ONE TABLET BY [facility] TWICE A DAY 01/20/2015 01/14/2016 In active gabapentin 300 mg ca psule RxNorm: 610648 TAKE ONE CAPSULE BY M OUT THREE TIMES A DAY 01/20/2015 05/19/2015 Inactive magnesium oxide 400 mg tablet RxNorm: 091872 1 Tablet(s) PO BID 01/17/2015 05/16/2015 Inactive gabapentin 300 mg ca psule RxNorm: 585488 1 Capsule(s) PO TID 01/17/2015 05/16/2015 Inactive allopurinol 100 mg t ablet RxNorm: 438729 TAKE ONE TABLET BY [facility] DAILY 10/18/2014 10/12/2015 In active Kenalog 40 mg/mL cassius pension for injection RxNorm: 3949577 1 Milliliter(s) Inj 09/21/2014 09/21/2014 In active allopurinol 100 mg t ablet RxNorm: 653596 1 Tablet(s) PO daily 09/21/2014 10/17/2014 Inactive gabapentin 300 mg ca psule RxNorm: 946139 1 Capsule(s) PO TID 09/12/2014 01/09/2015 Inactive gabapentin 300 mg ca psule RxNorm: 331579 1 Capsule(s) PO TID 09/12/2014 09/11/2014 Inactive magnesium oxide 400 mg tablet RxNorm: 602882 1 Tablet(s) PO BID 09/12/2014 01/09/2015 Inactive magnesium oxide 400 mg tablet RxNorm: 024792 1 Tablet(s) PO BID 09/12/2014 09/11/2014 Inactive lisinopril 5 mg tablet RxNorm: 225405 1 Tablet(s) PO daily No Start Date Active Protonix 40 mg table t,delayed release RxNorm: 848831 1 Tablet(s) PO daily No Start Date Active minocycline 50 mg ca psule RxNorm: 626956 1 Capsule(s) PO BID o rdered by Dr. Saravia No Start Date Active Coreg 6.25 mg tablet RxNorm: 497097 1 Tablet(s) PO BID No Start Date Active Combivent Respimat 2 0 mcg-100 mcg/actuation solution for inhalation RxNorm: 8524990 1 Puff(s) INH as needed No Start Date Active Ventolin Refill 90 m cg/actuation aerosol inhaler RxNorm: 307771 2 INH as needed No Start Date Active furosemide 40 mg tablet RxNorm: 603632 1 Tablet(s) PO daily No Start Date Active Centrum Silver Women oral RxNorm: [address] art Date Active aspirin 81 mg capsul e,delayed release RxNorm: 748423 1 Capsule(s) PO daily No Start Date Active warfarin 1 mg tablet RxNorm: 629149 oral No Start Date 09/13/2015 Inactive warfarin 5 mg tablet RxNorm: 557381 1 Tablet(s) PO daily 1.5 tabs on Thu No Start Date 12/04/2015 Inactive Medication Administered Medication Codes Instruc tions Start Date Status Kenalog 40 mg/mL suspension for injection RxNorm: 6652688 Milliliter 01/07/2016 No longer Active Kenalog 40 mg/mL suspension for injection RxNorm: 3811599 1Milliliter 09/21/2014 N o longer Active Immunizations [...] neoplasm ICD-10: Z09 ICD-9: V67.59 10/11/2015 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 ICD-9: V58.69 [...] Code Item Item Code Result Date Pt Axo9258 PT 64.8 seconds 01/10/2016 Pt Few2586 INR 8.6 01/10/2016 Pt Vej6620 Low Intensity - 1.5-2.0 01/10/2016 Pt Jic6593 Mod intensity - 2.0-3.0 01/10/2016 Pt Izw5471 Hi intensity - 3.0-4.0 01/10/2016 Pt Pki6250 PT 32.1 seconds 11/01/2014 Pt Wxa0658 INR 3.2 11/01/2014 Pt Drf5762 Low Intensity - 1.5-2.0 11/01/2014 Pt Doa6848 Mod intensity - 2.0-3.0 11/01/2014 Pt Erk6034 Hi intensity - 3.0-4.0 11/01/2014 Pt Tyr2315 PT 30.2 seconds 10/03/2014 Pt Byo0265 INR 3.0 10/03/2014 Pt Vty2762 Low Intensity - 1.5-2.0 10/03/2014 Pt Rgv9387 Mod intensity - 2.0-3.0 10/03/2014 Pt Zvk2502 Hi intensity - 3.0-4.0 10/03/2014 D-Dimer D-DIMER 475 NG/ML 09/25/2014 D-Dimer COMMENT 09/25/2014 Magnesium Ord90 Mag 1.1 Result Verified By Repeat Analysis mg/dL 09/22/2014 Pt Ocw1310 PT 32.0 seconds 09/22/2014 Pt Ngc3889 INR 3.2 09/22/2014 Pt Iic7070 Low Intensity - 1.5-2.0 09/22/2014 Pt Hpp3250 Mod intensity - 2.0-3.0 09/22/2014 Pt Jyq3442 Hi intensity - 3.0-4.0 09/22/2014 Comp Metabolic Has043 NA 137 mEq/L 09/22/2014 Comp Metabolic Zxh129 K 4.2 mEq/L 09/22/2014 Comp Metabolic Dyr179 CL 102 mEq/L 09/22/2014 Comp Metabolic Dsf507 CO2 25.0 mEq/L 09/22/2014 Comp Metabolic Dee829 AN ION GAP 14 09/22/2014 Comp Metabolic Dgv046 GL UCOSE 94 mg/dL 09/22/2014 Comp Metabolic Nvm261 Cr eat 0.8 mg/dL 09/22/2014 Comp Metabolic Vrb917 eG FR 102 ml/min/1.73m2 09/06 Comp Metabolic Opg062 BUN 15 mg/dL 09/22/2014 Comp Metabolic Hah617 B/ C Ratio 18.8 Ratio 09/22/2014 Comp Metabolic Afd730 CA LCIUM 9.4 mg/dL 09/22/2014 Comp Metabolic Odk572 AL K PHOS 65 U/L 09/22/2014 Comp Metabolic Row288 T(SGOT) 15 U/L 09/22/2014 Comp Metabolic Bfr606 AL T(SGPT) 8 U/L 09/22/2014 Comp Metabolic Ekf072 BI LI T 0.4 mg/dL 09/22/2014 Comp Metabolic Xlz590 AL BUMIN 4.0 g/dL 09/22/2014 Comp Metabolic Fzm430 TP RO 6.8 g/dL 09/22/2014 Comp Metabolic Qpa889 GL OB 2.8 g/dL 09/22/2014 Comp Metabolic Mxv920 A/ G Ratio 1.4 Ratio 09/22/2014 Comp Metabolic Qmz801 Os mo 274 mOsmo 09/22/2014 C-Reactive Protein [...] Procedure Codes Date THER/PROPH/DIAG INJ SC/IM CPT-4: 84904Cowpvzv 01/07/2016 TRIAMCINOLONE ACET I [place] NOS CPT-4: R9309Jccswlx 01/07/2016 TRIAMCINOLONE ACET I [place] NOS CPT-4: G8529Cahkdxt 09/21/2014 THER/PROPH/DIAG INJ SC/IM CPT-4: 87086Xuigdll 09/21/2014 Vital Signs Date Vital 08/14/2016 Blood Pressure 1: 122/62 Code: 8480-6 Heart Rate 1: 56 bpm Height: 5'3" SpO2: 94% Weight: 04/16/2016 Blood Pressure 1: 138/76 Code: 8480-6 Heart Rate 1: 67 bpm Height: 5'3" SpO2: 98% Temperature: 36.9 (C ) / 98.5 (F) Weight: 01/21/2016 Blood Pressure 1: 128/78 Code: 8480-6 BMI: 33.3 Code: 23492-5 Heart Rate 1: 72 bpm Height: 5'3" SpO2: 97% Weight: 188 lbs 01/10/2016 Blood Pressure 1: 132/76 Code: 8480-6 BMI: 33.1 Code: 09262-2 Heart Rate 1: 72 bpm Height: 5'3" SpO2: 97% Weight: 187 lbs 12/25/2015 Blood Pressure 1: 154/82 Code: 8480-6 BMI: 33.1 Code: 66618-3 Heart Rate 1: 72 bpm Height: 5'3" SpO2: 97% Weight: 187 lbs 10/11/2015 Blood Pressure 1: 110/62 Code: 8480-6 BMI: 34.7 Code: 86445-3 Heart Rate 1: 70 bpm Height: 5'3" SpO2: 93% Weight: 196 lbs 08/24/2015 Blood Pressure 1: 132/62 Code: 8480-6 BMI: 35.3 Code: 10391-0 Heart Rate 1: 62 bpm Height: 5'3" SpO2: 93% Weight: 199 lbs 08/20/2015 Blood Pressure 1: 140/68 Code: 8480-6 BMI: 35.3 Code: 50667-7 Heart Rate 1: 74 bpm Height: 5'3" SpO2: 96% Weight: 199 lbs 12/28/2014 Blood Pressure 1: 130/72 Code: 8480-6 BMI: 33.1 Code: 34333-9 Heart Rate 1: 60 bpm Height: 5'3" SpO2: 97% Weight: 187 lbs 10/31/2014 Blood Pressure 1: 118/72 Code: 8480-6 BMI: 31.2 Code: 26508-6 Heart Rate 1: 58 bpm Height: 5'3" SpO2: 98% Weight: 176 lbs 10/02/2014 Blood Pressure 1: 138/74 Code: 8480-6 BMI: 30.6 Code: 38008-0 Heart Rate 1: 72 bpm Height: 5'3" Weight: 173 lbs 09/21/2014 Blood Pressure 1: 138/72 Code: 8480-6 BMI: 30.5 Code: 17912-3 Heart Rate 1: 60 bpm Height: 5'3" [...] daily 12/25/2015 None Hospital Follow Up _ [facility] er: diverticulitis 10/11/2015 None Hospital Follow [...] Encounters Encounter Performer Loca tion Codes Date 69079 EST. 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 PATIENT, LEVEL III Diagnosis: Other specified bacterial intestinal infections[ICD10: A04.8] Rox Alvarez MD, [facility] CPT-4: 02157 04/16/2016 [id number] EST. PATIENT, LEVEL II Diagnosis: Pain in right foot[ICD10: M79.671] Rox Alvarez MD [facility] CPT-4: 65667 01/21/2016 [id number] EST. PATIENT, LEVEL III Diagnosis: Encounter for therapeutic drug level monitoring[ICD10: Z51.81] Diagnosis: Rash and other nonspecific skin eruption[ICD10: R21] Rox Alvarez MD [facility] CPT-4: 42897 01/10/2016 68098 EST. PATIENT, LEVEL III Diagnosis: Rash and other nonspecific skin eruption[ICD10: R21] Rox Alvarez MD [facility] CPT-4: 63829 01/07/2016 ([id number]) Miscellaneou s no charge Diagnosis: Cutaneous abscess of left axilla[ICD10: L02.412] Rox Alvarez MD [facility] CPT-4: 91939 01/02/2016 ([id number]) Miscellaneou s no charge Diagnosis: Cutaneous abscess of left axilla[ICD10: L02.412] Rox Alvarez MD [facility] CPT-4: 30688 01/01/2016 ([id number]) Miscellaneou s no charge Diagnosis: Cutaneous abscess of left axilla[ICD10: L02.412] Rox Alvarez MD [facility] CPT-4: 12903 12/31/2015 ([id number]) Patient adm itted to the hospital from clinic (NO CHARGE) Diagnosis: Cutaneous abscess of left axilla[ICD10: L02.412] Rox Alvarez MD, [facility] CPT-4: 91299X 12/25/2015 76947 EST. 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 CPT-4: 60894 10/11/2015 ([id number]) Miscellaneou s no charge Diagnosis: Encounter for therapeutic drug level monitoring[ICD10: Z51.81] Diagnosis: Other acute osteomyelitis, left ankle and foot[ICD10: M86.172] Rox Alvarez MD, [facility] CPT-4: 92055 08/24/2015 [id number] EST. PATIENT, LEVEL IV Diagnosis: Cellulitis of left toe[ICD10: L03.032] [facility] CPT-4: 89035 08/20/2015 [id number] EST. PATIENT, LEVEL III Diagnosis: Essential (primary) hypertension[ICD10: I10] Diagnosis: Peripheral vascular disease, unspecified[ICD10: I73.9] Diagnosis: Dermatitis, unspecified[ICD10: L30.9] Rox Alvarez MD, [facility] CPT- 4: 01227 12/28/2014 ([id number]) 42512 EST. [facility] Diagnosis: ESSENTIAL HYPERTENSION[ICD9: 401.9] Diagnosis: PAD (peripheral artery disease)[ICD9: 443.9] Diagnosis: Anticoagulated on Coumadin[ICD9: V58.83] [facility] CPT-4: 42390 10/31/2014 ([id number]) 36930 EST. P ATIENT, LEVEL III Diagnosis: PAD (peripheral artery disease)[ICD9: 443.9] Diagnosis: Anticoagulated on Coumadin[ICD9: V58.83] Diagnosis: SCLERITIS[ICD9: 379.00] Diagnosis: ESSENTIAL HYPERTENSION[ICD9: 401.9] [facility] CPT- 4: 59176 10/02/2014 ([id number]) [facility] - LEVEL 4 Diagnosis: GOUT[ICD9: 274.9] Diagnosis: COPD (chronic obstructive pulmonary disease)[ICD9: 496] Diagnosis: PAD (peripheral artery disease)[ICD9: 443.9] Diagnosis: ESSENTIAL HYPERTENSION[ICD9: 401.9] [facility] CPT- 4: 19189 09/21/2014 Plan of Care Planned Activity Notes [...] refer to PT for mobility evaluation. 08/14/2016 Patient Education: Patient Medication Summary Completed [...] stomach pain. 2016 Appointment: Rox Luciano WPtel: [address] [place], [place] [phone] (15 min) Moderate 04/16/2016 Patient Education: Patient Medication Summary Completed 04/16/2016 Patient Education: Smoking and Tobacco Addiction Completed 04/16/2016 Referral: Dr Arboleda Referral Completed 02/14/2016 Care Plan: Referral Order SNOMED-CT : [id number] Pending 01/29/2016 Visit Plan: Right foot pain [...] warmth, discharge. 01/10/2016 Appointment: Rox Luciano WPtel: [address] [place], [place] [phone] (30 min) Complex 01/10/2016 Patient Education: Patient [...] - Pt states that he went to [facility] care for the abscess and [...] further I&D. 2015 [facility] [phone] [phone] (15 min) Moderate 12/25/2015 Patient Education: Patient [...] management. 10/11/2015 Appointment: Rox Luciano WPtel: [phone] [facility] [address] (30 min) Complex 10/11/2015 Patient Education: Patient Medication Summary Completed 10/11/2015 Patient Education: Smoking and Tobacco Addiction Completed 10/11/2015 Patient Education: Obesity Completed 10/11/2015 Referral: Gavino Navarro they are g oing to call if they get him in before if not we will call Dr shook Initiated 09/27/2015 Appointment: Emy Westbrook WPtel: [facility] [phone] (15 min) Moderate 08/24/2015 Patient Education: Patient Medication Summary Completed 08/24/2015 Patient Education: Smoking and Tobacco Addiction Completed 08/24/2015 Patient Education: Patient Medication Summary Completed 08/23/2015 Appointment: Emy Westbrook WPtel: [facility] [phone] (30 min) Complex 08/22/2015 Referral: [facility] WPtel: 1 [facility] Referral Initiated 08/22/2015 Visit Plan: Pt on [...] 12/28/2014 Appointment: Selena Alvarez WPtel: [facility] Follow up 12/20/2014 Visit Plan: Hypertension - [...] Visit Plan: Dr. Alvarez in to see patie nt. Gout Attack - pt given RX [...] 09/21/2014 Care Plan: Referral Order SNOMED-CT : [id number] Ordered 09/21/2014 Appointment: Selena Alvarez WPtel: [facility] [place] ([place]) New Patient 09/20/2014 Referral: Martinez Wren WPtel: [phone] [facility] [address] [place] Referral Initiated Referral: Gavino Navarro Referral Initiated Referral: [facility] WPtel: 1 [facility] [place] Referral Initiated Referral: Dr Arboleda Referral [...] care management. probiotics - [facility] . Gastroenteritis - discussed need to stay [...] - Pt states that he went to [facility] care for the abscess and [...]
--- OUTSIDE RECORDS SUMMARY | 2019-08-20 18:23 | XMS REPORT | CCD ---
Author Author Bony Alvarez Organization Selena Alvarez MD, [facility] Address [address] [place] [address] Phone Care Team Providers Care Mac Artist Name Role Phone PP Unavailable CCM Unavailable Summary Purpose Interface Exchange Insurance Providers Payer name Policy type / Coverage type Covered green party ID Effective Begin Date Effective End Date [facility] Commercial Insurance [id number] 2017 Unknown Family history Father Diagnosis Age At Onset Hyperlipidemia Unknown Coronary Artery Disease Unknown Stroke Unknown Cancer Unknown Congestive heart failure Unknown Mother Diagnosis Age At Onset Hypertension Unknown kidney disease Unknown Cancer Unknown Stroke Unknown Hyperlipidemia Unknown Coronary Artery Disease Unknown Congestive heart failure Unknown Social History Social History Element Codes Description Effective Dates Tobacco history SNOMED CT: 241395878985562 Current some days smoker 09/21/2014 Allergies, Adverse [...] ICD-9: 300.00 ICD-10: F41.1 Active 04/21/2017 Unknown [facility] (current) use of anticoagulants ICD-9: V58.61 ICD-10: [...] V67.59 ICD-10: Z09 Active 10/10/2015 Unknown Other long-term (cur rent) drug therapy ICD-9: V58.69 ICD-10: [...] disorder ICD-9: 300.00 ICD-10: F41.1 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 [...] ICD-9: V67.59 ICD-10: Z09 10/10/2015 Active Other long-term (cur rent) drug therapy ICD-9: V58.69 ICD-10: [...] Date Stop Date Sta tus Fill Instructions Keflex 500 mg capsule RxNorm: 658627 1 Capsule(s) PO TID 06/11/2018 06/17/2018 Active Pepcid 20 mg tablet RxNorm: 435810 TAKE ONE TABLET BY MOUTH TWICE A DAY 05/25/2018 09/21/2018 Ac tive hydrocodone 7.5 mg-a cetaminophen 325 mg tablet RxNorm: 604591 1 Tablet(s) PO QID as needed 05/19/2018 06/17/2018 Active hydrocodone 7.5 mg-a cetaminophen 325 mg tablet RxNorm: 871929 1 Tablet(s) PO QID as needed 04/19/2018 05/18/2018 Inactive allopurinol 100 mg t ablet RxNorm: 332673 TAKE ONE TABLET BY MO UTH DAILY 04/06/2018 03/01/2019 Ac tive hydrocodone 7.5 mg-a cetaminophen 325 mg tablet RxNorm: 771677 1 Tablet(s) PO QID as needed 03/11/2018 04/09/2018 Inactive potassium chloride E R 20 mEq tablet,extended release RxNorm: 305580 Tablet(s) TAKE ONE TABLET BY MOUTH DAILY WHEN TAKING FUROSEMIDE NEEDED 03/05/2018 08/31/2018 Active gabapentin 300 mg ca psule RxNorm: 813800 TAKE ONE CAPSULE BY M OUTH THREE TIMES A DAY 03/04/2018 02/26/2019 Ac tive hydrocodone 7.5 mg-a cetaminophen 325 mg tablet RxNorm: 803311 1 Tablet(s) PO QID as needed 02/18/2018 03/10/2018 Inactive hydrocodone 7.5 mg-a cetaminophen 325 mg tablet RxNorm: 162660 1 Tablet(s) PO QID as needed 01/19/2018 02/17/2018 Inactive hydrocodone 7.5 mg-a cetaminophen 325 mg tablet RxNorm: 856123 1 Tablet(s) PO QID as needed 12/16/2017 01/14/2018 Inactive Pepcid 20 mg tablet RxNorm: 606711 Tablet(s) TAKE ONE TABLET BY MOUTH TWICE A DAY 12/08/2017 05/06/2018 Inactive hydrocodone 7.5 mg-a cetaminophen 325 mg tablet RxNorm: 684550 1 Tablet(s) PO QID as needed 11/18/2017 12/15/2017 Inactive gabapentin 300 mg ca psule RxNorm: 550394 Capsule(s) TAKE ONE C APSULE BY MOUTH THREE TIMES A DAY 11/11/2017 03/03/2018 Inactive gabapentin 300 mg ca psule RxNorm: 863402 TAKE ONE CAPSULE BY M OUTH THREE TIMES A DAY 11/10/2017 11/10/2017 Inactive hydrocodone 7.5 mg-a cetaminophen 325 mg tablet RxNorm: 879477 1 Tablet(s) PO QID as needed 10/19/2017 11/17/2017 Inactive hydrocodone 7.5 mg-a cetaminophen 325 mg tablet RxNorm: 168174 1 Tablet(s) PO QID as needed 09/16/2017 10/15/2017 Inactive doxycycline hyclate 100 mg capsule RxNorm: 3360307 1 Capsule(s) PO BID 08/28/2017 09/06/2017 In active hydrocodone 7.5 mg-a cetaminophen 325 mg tablet RxNorm: 457531 1 Tablet(s) PO QID as needed 08/21/2017 09/15/2017 Inactive Lexapro 10 mg tablet RxNorm: 775225 TAKE ONE TABLET BY MOUTH AT BEDTIME 08/02/2017 07/27/2018 Ac tive Zyrtec 10 mg tablet RxNorm: 4323950 1 Tablet(s) PO daily 07/20/2017 11/16/2017 Inactive hydrocodone 7.5 mg-a cetaminophen 325 mg tablet RxNorm: 395596 1 Tablet(s) PO QID as needed 07/20/2017 09/15/2017 Inactive furosemide 40 mg tablet RxNorm: 888897 Tablet(s) TAKE ONE TABLET BY MOUTH DAILY NEEDED FOR SWELLING 07/08/2017 01/03/2018 Inactive Pepcid 20 mg tablet RxNorm: 746547 TAKE ONE TABLET BY MOUTH TWICE A DAY 06/29/2017 11/25/2017 In active gabapentin 300 mg ca psule RxNorm: 203185 TAKE ONE CAPSULE BY M OUTH THREE TIMES A DAY 06/29/2017 10/26/2017 Inactive hydrocodone 7.5 mg-a cetaminophen 325 mg tablet RxNorm: 554286 1 Tablet(s) PO QID as needed 06/18/2017 07/17/2017 Inactive hydrocodone 7.5 mg-a cetaminophen 325 mg tablet RxNorm: 795120 1 Tablet(s) PO QID as needed 05/18/2017 06/16/2017 Inactive hydrocodone 7.5 mg-a cetaminophen 325 mg tablet RxNorm: 440751 1 Tablet(s) PO QID as needed 04/21/2017 05/17/2017 Inactive hyoscyamine 0.125 mg sublingual tablet RxNorm: 3399382 1 Tablet(s) SL TID a s needed 04/21/2017 04/25/2017 In active Lexapro 10 mg tablet RxNorm: 296306 1 Tablet(s) PO QHS 04/21/2017 07/19/2017 Inactive Flagyl 500 mg tablet RxNorm: 548894 1 Tablet(s) PO TID 04/07/2017 04/16/2017 Inactive Lexapro 10 mg tablet RxNorm: 209672 1 Tablet(s) PO QHS 04/07/2017 04/20/2017 Inactive hydrocodone 7.5 mg-a cetaminophen 325 mg tablet RxNorm: 020120 1 Tablet(s) PO QID as needed 03/24/2017 04/20/2017 Inactive allopurinol 100 mg t ablet RxNorm: 361752 TAKE ONE TABLET BY MO [facility] DAILY 03/10/2017 03/04/2018 In active hydrocodone 7.5 mg-a cetaminophen 325 mg tablet RxNorm: 709654 1 Tablet(s) PO QID as needed 02/11/2017 03/12/2017 Inactive gabapentin 300 mg ca psule RxNorm: 030649 TAKE ONE CAPSULE BY [facility] THREE TIMES A DAY 02/02/2017 06/28/2017 Inactive Zofran ODT 4 mg disi ntegrating tablet RxNorm: 425803 1 Tablet(s) PO QID as needed nausea and vomitting 01/27/2017 No Stop Date Active hydrocodone 7.5 mg-a cetaminophen 325 mg tablet RxNorm: 708393 1 Tablet(s) PO QID as needed 01/13/2017 02/10/2017 Inactive potassium chloride E R 20 mEq tablet,extended release RxNorm: 990694 TAKE ONE TABLET BY MOUTH DAILY WHEN TAKING FUROSEMIDE NEEDED 01/12/2017 07/10/2017 Inactive furosemide 40 mg tablet RxNorm: 130139 TAKE ONE TABLET BY MOUTH DAILY NEEDED FOR SWELLING 01/12/2017 07/09/2017 Inactive promethazine 25 mg t ablet RxNorm: 104834 TAKE ONE TABLET BY [facility] THREE TIMES A DAY NEEDED FOR NAUSEA AND VOMITING 01/12/2017 01/31/2017 Inactive promethazine 25 mg t ablet RxNorm: 609129 1 Tablet(s) PO TID as needed nausea and vomitting 01/06/2017 01/11/2017 Inactive Lomotil 2.5 mg-0.025 mg tablet RxNorm: 6744472 1-2 Tablet(s) PO BID as needed diarrhea 01/06/2017 01/05/2017 Inactive Lomotil 2.5 mg-0.025 mg tablet RxNorm: 8889895 1-2 Tablet(s) PO BID as needed diarrhea 01/06/2017 01/07/2017 Inactive Pepcid 20 mg tablet RxNorm: 735732 1 Tablet(s) PO BID 12/19/2016 06/16/2017 Inactive Pepcid 20 mg tablet RxNorm: 813621 1 Tablet(s) PO BID 12/16/2016 12/18/2016 Inactive hydrocodone 7.5 mg-a cetaminophen 325 mg tablet RxNorm: 057297 1 Tablet(s) PO QID as needed 12/16/2016 01/12/2017 Inactive hydrocodone 7.5 mg-a cetaminophen 325 mg tablet RxNorm: 513803 1 Tablet(s) PO QID as needed 11/18/2016 12/15/2016 Inactive allopurinol 100 mg t ablet RxNorm: 949034 TAKE ONE TABLET BY [facility] DAILY 10/29/2016 02/25/2017 In active hydrocodone 7.5 mg-a cetaminophen 325 mg tablet RxNorm: 685086 1 Tablet(s) PO QID as needed 10/15/2016 11/13/2016 Inactive nystatin 100,000 uni t/gram topical cream RxNorm: 594729 1 Gram(s) TOP QID 10/15/2016 11/25/2016 In active nystatin 100,000 uni t/gram topical powder RxNorm: 561944 1 Gram(s) TOP TID TO GROIN OR AFFECTED AREA 10/14/2016 No Stop Date Active hydrocodone 7.5 mg-a cetaminophen 325 mg tablet RxNorm: 876770 1 Tablet(s) PO QID as needed 09/17/2016 10/14/2016 Inactive furosemide 40 mg tablet RxNorm: 071413 1 Tablet(s) PO daily as needed swelling 09/17/2016 01/11/2017 In active potassium chloride E R 20 mEq tablet,extended release RxNorm: 728376 1 Tablet(s) PO daily as needed take when taking a lasix pill 09/17/2016 01/11/2017 Inactive Levaquin 500 mg tablet RxNorm: 683143 1 Tablet(s) PO daily 09/17/2016 09/21/2016 Inactive hydrocodone 7.5 mg-a cetaminophen 325 mg tablet RxNorm: 694116 1 Tablet(s) PO QID as needed 08/14/2016 09/12/2016 Inactive cyclobenzaprine 5 mg tablet RxNorm: 013270 1 Tablet(s) PO TID as needed 07/25/2016 07/29/2016 In active cyclobenzaprine 5 mg tablet RxNorm: 136910 1 Tablet(s) PO TID as needed 07/25/2016 07/24/2016 In active hydrocodone 7.5 mg-a cetaminophen 325 mg tablet RxNorm: 298072 1 Tablet(s) PO QID as needed 07/21/2016 08/13/2016 Inactive warfarin 1 mg tablet RxNorm: 029680 TAKE ONE TABLET BY MOUTH EVERY EVENING 06/26/2016 08/04/2016 In active hydrocodone 7.5 mg-a cetaminophen 325 mg tablet RxNorm: 882402 1 Tablet(s) PO QID as needed 06/24/2016 07/20/2016 Inactive hydrocodone 5 mg-yanira taminophen 325 mg tablet RxNorm: 789929 1 Tablet(s) PO Q6 as needed for pain 06/09/2016 06/10/2016 Inactive warfarin 1 mg tablet RxNorm: 170332 TAKE ONE TABLET BY MOUTH EVERY EVENING 06/02/2016 06/21/2016 In active allopurinol 100 mg t ablet RxNorm: 062483 TAKE ONE TABLET BY MO [facility] DAILY 05/21/2016 10/17/2016 In active hydrocodone 7.5 mg-a cetaminophen 325 mg tablet RxNorm: 805015 1 Tablet(s) PO QID as needed 05/09/2016 06/07/2016 Inactive gabapentin 300 mg ca psule RxNorm: 850719 Capsule(s) TAKE ONE C APSULE BY MOUTH THREE TIMES A DAY 04/25/2016 11/09/2017 Inactive promethazine 25 mg t ablet RxNorm: 362699 TAKE ONE TABLET BY MO [place] THREE TIMES A DAY NEEDED 2016 05/01/2016 Inactive warfarin 1 mg tablet RxNorm: 417836 TAKE ONE TABLET BY MOUTH EVERY EVENING 2016 05/31/2016 In active promethazine 25 mg t ablet RxNorm: 323012 1 Tablet(s) PO TID as needed 04/16/2016 04/21/2016 In active warfarin 1 mg tablet RxNorm: 711970 TAKE ONE TABLET BY MOUTH EVERY EVENING 02/13/2016 04/12/2016 In active magnesium oxide 400 mg tablet RxNorm: 486872 TAKE ONE TABLET BY MO [place] TWICE A DAY 02/07/2016 01/01/2017 In active hydrocodone 5 mg-yanira taminophen 325 mg tablet RxNorm: 127508 1 Tablet(s) PO Q6 as needed for pain 01/21/2016 02/19/2016 Inactive warfarin 1 mg tablet RxNorm: 806569 TAKE ONE TABLET BY MOUTH EVERY EVENING 01/17/2016 02/05/2016 In active gabapentin 300 mg ca psule RxNorm: 362767 Capsule(s) TAKE ONE C APSULE BY MOUTH THREE TIMES A DAY 01/11/2016 04/24/2016 Inactive prednisone 10 mg tablet RxNorm: 933434 Tablet(s) PO UD 01/10/2016 03/08/2018 Inactive 60mg x2 days, then 50mg x2 days, then 40mg x2 days, 30mg x2 days, 20mg x2 days, 10mg x2days, 5mg every other day x 2 doses Kenalog 40 mg/mL cassius pension for injection RxNorm: 9434448 Milliliter(s) Inj 01/07/2016 01/07/2016 In active warfarin 1 mg tablet RxNorm: 936017 TAKE ONE TABLET BY MOUTH EVERY EVENING 01/01/2016 01/16/2016 In active hydrocodone 5 mg-yanira taminophen 325 mg tablet RxNorm: 508646 1 Tablet(s) PO Q6 as needed for pain 01/01/2016 01/15/2016 Inactive gabapentin 300 mg ca psule RxNorm: 445675 TAKE ONE CAPSULE BY M OUTH THREE TIMES A DAY 12/12/2015 01/10/2016 Inactive warfarin 5 mg tablet RxNorm: 202137 1 Tablet(s) PO daily 12/05/2015 No Stop Date Active warfarin 1 mg tablet RxNorm: 001853 TAKE ONE TABLET BY MOUTH EVERY EVENING 11/13/2015 12/22/2015 In active hydrocodone 5 mg-yanira taminophen 325 mg tablet RxNorm: 261626 1 Tablet(s) PO Q6 as needed for pain 10/26/2015 11/09/2015 Inactive allopurinol 100 mg t ablet RxNorm: 730486 1 Tablet(s) PO daily TAKE ONE TABLET BY MOUTH DAILY 10/18/2015 04/14/2016 Inactive hydrocodone 5 mg-yanira taminophen 325 mg tablet RxNorm: 487882 1 Tablet(s) PO Q6 as needed for pain 09/26/2015 10/10/2015 Inactive gabapentin 300 mg ca psule RxNorm: 903124 TAKE ONE CAPSULE BY M OUTH THREE TIMES A DAY 09/14/2015 12/11/2015 Inactive warfarin 1 mg tablet RxNorm: 381904 1 Tablet(s) PO QPM 09/14/2015 11/12/2015 Inactive hydrocodone 5 mg-yanira taminophen 325 mg tablet RxNorm: 697409 1 Tablet(s) PO Q6 as needed for pain 09/12/2015 09/25/2015 Inactive hydrocodone 5 mg-yanira taminophen 325 mg tablet RxNorm: 530407 1 Tablet(s) PO Q6 as needed for pain 08/22/2015 09/05/2015 Inactive Bactrim DS 800 mg-16 0 mg tablet RxNorm: 600421 1 Tablet(s) PO BID 08/20/2015 09/02/2015 Inactive magnesium oxide 400 mg tablet RxNorm: 239672 TAKE ONE TABLET BY [place] TWICE A DAY 01/20/2015 01/14/2016 In active gabapentin 300 mg ca psule RxNorm: 666516 TAKE ONE CAPSULE BY M OUTH THREE TIMES A DAY 01/20/2015 05/19/2015 Inactive magnesium oxide 400 mg tablet RxNorm: 165729 1 Tablet(s) PO BID 01/17/2015 05/16/2015 Inactive gabapentin 300 mg ca psule RxNorm: 691301 1 Capsule(s) PO TID 01/17/2015 05/16/2015 Inactive allopurinol 100 mg t ablet RxNorm: 339291 TAKE ONE TABLET BY [facility] DAILY 10/18/2014 10/12/2015 In active Kenalog 40 mg/mL cassius pension for injection RxNorm: 5235683 1 Milliliter(s) Inj 09/21/2014 09/21/2014 In active allopurinol 100 mg t ablet RxNorm: 652612 1 Tablet(s) PO daily 09/21/2014 10/17/2014 Inactive gabapentin 300 mg ca psule RxNorm: 236336 1 Capsule(s) PO TID 09/12/2014 01/09/2015 Inactive gabapentin 300 mg ca psule RxNorm: 740085 1 Capsule(s) PO TID 09/12/2014 09/11/2014 Inactive magnesium oxide 400 mg tablet RxNorm: 831594 1 Tablet(s) PO BID 09/12/2014 01/09/2015 Inactive magnesium oxide 400 mg tablet RxNorm: 410763 1 Tablet(s) PO BID 09/12/2014 09/11/2014 Inactive lisinopril 5 mg tablet RxNorm: 471409 1 Tablet(s) PO daily No Start Date Active atorvastatin oral RxNorm: 19294 oral No Start Date Active Coreg 6.25 mg tablet RxNorm: 021027 1 Tablet(s) PO BID No Start Date Active Combivent Respimat 2 0 mcg-100 mcg/actuation solution for inhalation RxNorm: 1134291 1 Puff(s) INH as needed No Start Date Active Ventolin Refill 90 m cg/actuation aerosol inhaler RxNorm: 608827 2 INH as needed No Start Date Active Centrum Silver Women oral RxNorm: [address] art Date Active aspirin 81 mg capsul e,delayed release RxNorm: 500281 1 Capsule(s) PO daily No Start Date Active nystatin 100,000 uni t/gram topical powder RxNorm: 331454 1 Gram(s) TOP TID No Start Date 10/13/2016 Inactive warfarin 1 mg tablet RxNorm: 546062 oral No Start Date 09/13/2015 Inactive Pepcid 20 mg tablet RxNorm: 053202 1 Tablet(s) PO BID No Start Date 12/15/2016 Inactive Protonix 40 mg table t,delayed release RxNorm: 340624 1 Tablet(s) PO daily No Start Date 09/16/2016 Inactive warfarin 5 mg tablet RxNorm: 027198 1 Tablet(s) PO daily 1.5 tabs on Thu No Start Date 12/04/2015 Inactive minocycline 50 mg ca psule RxNorm: 124615 1 Capsule(s) PO BID o rdered by Dr. Saravia No Start Date 03/08/2018 Inactive furosemide 40 mg tablet RxNorm: 696455 1 Tablet(s) PO daily No Start Date 09/16/2016 Inactive Medication Administered Medication Codes Instruc tions Start Date Status Kenalog 40 mg/mL suspension for injection RxNorm: 2477771 Milliliter 01/07/2016 No longer Active Kenalog 40 mg/mL suspension for injection RxNorm: 9779981 1Milliliter 09/21/2014 N o longer Active Immunizations No Immunization data Assessments Condition Codes Effectiv e Dates Localized edema ICD-10: R60.0 ICD-9: 782.3 06/10/2018 Varicose veins of right lower extremity with pain ICD-10: I83.811 ICD-9: 454.8 06/10/2018 Chronic pain syndrome ICD-10: G89.4 ICD-9: 338.4 03/11/2018 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 [...] neoplasm ICD-10: Z09 ICD-9: V67.59 10/11/2015 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 ICD-10: Z79.899 ICD-9: V58.69 [...] Item Item Code Result Date Comp Metabolic Wwn909 NA 136 mEq/L 03/11/2018 Comp Metabolic Nwm868 K 4.3 mEq/L 03/11/2018 Comp Metabolic Rjj672 CL 101 mEq/L 03/11/2018 Comp Metabolic Qpc926 CO2 27.0 mEq/L 03/11/2018 Comp Metabolic Sdn711 AN ION GAP 12 03/11/2018 Comp Metabolic Pzw624 GL UCOSE 87 mg/dL 03/11/2018 Comp Metabolic Kuw645 Cr eat 1.0 mg/dL 03/11/2018 Comp Metabolic Oby209 eG FR 79 ml/min/1.73m2 03/11 Comp Metabolic Ady560 BUN 12 mg/dL 03/11/2018 Comp Metabolic Chc303 B/ C Ratio 12.1 Ratio 03/11/2018 Comp Metabolic Upc561 CA LCIUM 8.9 mg/dL 03/11/2018 Comp Metabolic Drr025 AL K PHOS 106 U/L 03/11/2018 Comp Metabolic Ltd766 T(SGOT) 16 U/L 03/11/2018 Comp Metabolic Lsa410 AL T(SGPT) 11 U/L 03/11/2018 Comp Metabolic Jde614 BI LI T 0.4 mg/dL 03/11/2018 Comp Metabolic Vhj777 AL BUMIN 3.8 g/dL 03/11/2018 Comp Metabolic Eoh246 TP RO 6.5 g/dL 03/11/2018 Comp Metabolic Kfb332 GL OB 2.7 g/dL 03/11/2018 Comp Metabolic Ppv719 A/ G Ratio 1.4 Ratio 03/11/2018 Comp Metabolic Qhs782 Os mo 271 mOsmo 03/11/2018 Cbc With [...] 29.8 pg 03/11/2018 Cbc With Differential Ord2 [place]% 11.3 % 03/11/2018 Cbc With Differential Ord2 [...] 2.87 K/ul 03/11/2018 Cbc With Differential Ord2 [place] ABS# 1.1 K/ul 03/11/2018 Cbc With Differential Ord2 Eos ABS# 0.4 K/ul 03/11/2018 Cbc With Differential Ord2 Baso ABS# 0.0 K/ul 03/11/2018 Pt Fwm8113 PT 31.3 seconds 03/11/2018 Pt Hwx7897 INR 3.1 03/11/2018 Pt Adh9243 Low Intensity - 1.5-2.0 03/11/2018 Pt Quw5415 Mod intensity - 2.0-3.0 03/11/2018 Pt Ngb1359 Hi intensity - 3.0-4.0 03/11/2018 Tsh Ord6 TSH (3rd IS) 2.01 uIU/mL 03/11/2018 Shiga Toxin 1 & 2 Eia Stool [id number] SHIGA TOXIN 1: NEGATIVE 04/12/2017 Shiga Toxin 1 & 2 Eia Stool [id number] SHIGA TOXIN 2: NEGATIVE 04/12/2017 Culture Stool [id number] STO OL CULTURE SEE NOTES 04/12/2017 Clostridium Diff Tox A/B Jqj435 Cdiff Negative 04/09/2017 Pt Bma1105 PT 64.8 seconds 01/10/2016 Pt Uxc0281 INR 8.6 01/10/2016 Pt Qat2693 Low Intensity - 1.5-2.0 01/10/2016 Pt Dqu3871 Mod intensity - 2.0-3.0 01/10/2016 Pt Snt8959 Hi intensity - 3.0-4.0 01/10/2016 Pt Yfn8278 PT 32.1 seconds 11/01/2014 Pt Xkc9587 INR 3.2 11/01/2014 Pt Sis9212 Low Intensity - 1.5-2.0 11/01/2014 Pt Uub3711 Mod intensity - 2.0-3.0 11/01/2014 Pt Fbj5678 Hi intensity - 3.0-4.0 11/01/2014 Pt Zuw5339 PT 30.2 seconds 10/03/2014 Pt Tnq4940 INR 3.0 10/03/2014 Pt Kat2309 Low Intensity - 1.5-2.0 10/03/2014 Pt Mqr0527 Mod intensity - 2.0-3.0 10/03/2014 Pt Svn6939 Hi intensity - 3.0-4.0 10/03/2014 D-Dimer D-DIMER 475 NG/ML 09/25/2014 D-Dimer COMMENT 09/25/2014 Magnesium Ord90 Mag 1.1 Result Verified By Repeat Analysis mg/dL 09/22/2014 Pt Qvx0333 PT 32.0 seconds 09/22/2014 Pt Nui8761 INR 3.2 09/22/2014 Pt Ezg1041 Low Intensity - 1.5-2.0 09/22/2014 Pt Biy6299 Mod intensity - 2.0-3.0 09/22/2014 Pt Mfw4718 Hi intensity - 3.0-4.0 09/22/2014 Comp Metabolic Rze733 NA 137 mEq/L 09/22/2014 Comp Metabolic Wqd678 K 4.2 mEq/L 09/22/2014 Comp Metabolic Qbw049 CL 102 mEq/L 09/22/2014 Comp Metabolic Skt746 CO2 25.0 mEq/L 09/22/2014 Comp Metabolic Imp115 AN ION GAP 14 09/22/2014 Comp Metabolic Bvv421 GL UCOSE 94 mg/dL 09/22/2014 Comp Metabolic Ipg670 Cr eat 0.8 mg/dL 09/22/2014 Comp Metabolic Ffw295 eG FR 102 ml/min/1.73m2 09/06 Comp Metabolic Ifw636 BUN 15 mg/dL 09/22/2014 Comp Metabolic Ltv335 B/ C Ratio 18.8 Ratio 09/22/2014 Comp Metabolic Rhp479 CA LCIUM 9.4 mg/dL 09/22/2014 Comp Metabolic Vee964 AL K PHOS 65 U/L 09/22/2014 Comp Metabolic Pcc297 T(SGOT) 15 U/L 09/22/2014 Comp Metabolic Fvm584 AL T(SGPT) 8 U/L 09/22/2014 Comp Metabolic Hbk805 BI LI T 0.4 mg/dL 09/22/2014 Comp Metabolic Siv709 AL BUMIN 4.0 g/dL 09/22/2014 Comp Metabolic Ndn785 TP RO 6.8 g/dL 09/22/2014 Comp Metabolic Fsm805 GL OB 2.8 g/dL 09/22/2014 Comp Metabolic Xrz315 A/ G Ratio 1.4 Ratio 09/22/2014 Comp Metabolic Qdr371 Os mo 274 mOsmo 09/22/2014 C-Reactive Protein [...] distress 06/10/2018 None Full Exam - General 1995 Constitutional general appearance Overall: well nourished 06/10/2018 [...] and over scrotum Full Exam - General 1995 Psychiatric orientation/consciousness Overall: oriented to person, place [...] thickened 09/21/2014 None Full Exam - General 1995 Musculoskeletal lower extremity Inspection - lower leg: swelling 09/21/2014 right greater than left Procedures Procedure Codes Date THER/PROPH/DIAG INJ SC/IM CPT-4: 21949 08/28/2017 ROCEPHIN, PER 250 MG CPT-4: J0696 08/28/2017 TOBACCO-USE BIOLOGICAL CHEMIST 3-[address]: [id number] CPT-4: G0436 01/27/2017 TOBACCO-USE BIOLOGICAL CHEMIST 3-[address]: [id number] CPT-4: G0436 11/25/2016 TOBACCO-USE BIOLOGICAL CHEMIST 3-[address]: 646260700 CPT-4: G0436 10/15/2016 TOBACCO-USE BIOLOGICAL CHEMIST 3-[address]: 225694192 CPT-4: G0436 09/17/2016 THER/PROPH/DIAG INJ SC/IM CPT-4: 57409 01/07/2016 TRIAMCINOLONE ACET I [place] NOS CPT-4: J3301 01/07/2016 TRIAMCINOLONE ACET I [place] NOS CPT-4: J3301 09/21/2014 THER/PROPH/DIAG INJ SC/IM CPT-4: 00391 09/21/2014 Vital Signs Date Vital 06/10/2018 Blood Pressure 1: 122/60 Code: 8480-6 BMI: 31.4 Code: 25770-6 Heart Rate 1: 75 bpm Height: 5'3" SpO2: 98% Weight: 177 lbs 03/11/2018 Blood Pressure 1: 134/82 Code: 8480-6 BMI: 32.8 Code: 42089-4 Heart Rate 1: 65 bpm Height: 5'3" SpO2: 96% Weight: 185 lbs 08/28/2017 Blood Pressure 1: 138/72 Code: 8480-6 Heart Rate 1: 80 bpm Height: SpO2: 98% Weight: 07/20/2017 Blood Pressure 1: 134/76 Code: 8480-6 BMI: 29.6 Code: 75886-3 Heart Rate 1: 82 bpm Height: 5'3" [...] 1: 128/78 Code: 8480-6 BMI: 33.3 Code: 85305-0 Heart Rate 1: 72 bpm Height: 5'3" SpO2: 97% Weight: 188 lbs 01/10/2016 Blood Pressure 1: 132/76 Code: 8480-6 BMI: 33.1 Code: 17228-1 Heart Rate 1: 72 bpm Height: 5'3" SpO2: 97% Weight: 187 lbs 12/25/2015 Blood Pressure 1: 154/82 Code: 8480-6 BMI: 33.1 Code: 07912-1 Heart Rate 1: 72 bpm Height: 5'3" SpO2: 97% Weight: 187 lbs 10/11/2015 Blood Pressure 1: 110/62 Code: 8480-6 BMI: 34.7 Code: 46881-1 Heart Rate 1: 70 bpm Height: 5'3" SpO2: 93% Weight: 196 lbs 08/24/2015 Blood Pressure 1: 132/62 Code: 8480-6 BMI: 35.3 Code: 97699-6 Heart Rate 1: 62 bpm Height: 5'3" SpO2: 93% Weight: 199 lbs 08/20/2015 Blood Pressure 1: 140/68 Code: 8480-6 BMI: 35.3 Code: 67494-7 Heart Rate 1: 74 bpm Height: 5'3" SpO2: 96% Weight: 199 lbs 12/28/2014 Blood Pressure 1: 130/72 Code: 8480-6 BMI: 33.1 Code: 43731-3 Heart Rate 1: 60 bpm Height: 5'3" SpO2: 97% Weight: 187 lbs 10/31/2014 Blood Pressure 1: 118/72 Code: 8480-6 BMI: 31.2 Code: 91624-6 Heart Rate 1: 58 bpm Height: 5'3" SpO2: 98% Weight: 176 lbs 10/02/2014 Blood Pressure 1: 138/74 Code: 8480-6 BMI: 30.6 Code: 99040-4 Heart Rate 1: 72 bpm Height: 5'3" Weight: 173 lbs 09/21/2014 Blood Pressure 1: 138/72 Code: 8480-6 BMI: 30.5 Code: 06647-9 Heart Rate 1: 60 bpm Height: 5'3" [...] itching 11/25/2016 None rash Location-Major in t groin area 11/25/2016 None rash Quality chronic 11/25/2016 None rash Quality improving 11/25/2016 None rash Location-Major in t groin area 10/15/2016 None rash Color red [...] None Hospital Follow Up _ [facility] er: diverticulitis 10/11/2015 None Hospital Follow [...] Encounters Encounter Performer Loca tion Codes Date 37370 EST. PATIENT, LEVEL III Diagnosis: Localized edema[ICD10: R60.0] Diagnosis: Varicose veins of right lower extremity with pain[ICD10: I83.811] Rox Alvarez MD, [facility] CPT-4: 15364 06/10/2018 85417 EST. 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 PATIENT, LEVEL III Diagnosis: Cellulitis of left axilla[ICD10: L03.112] Diagnosis: Cellulitis of right axilla[ICD10: L03.111] Rox Alvarez MD, [facility] CPT-4: 93775 08/28/2017 57203 EST. 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 PATIENT, LEVEL IV Diagnosis: Generalized anxiety disorder[ICD10: F41.1] Diagnosis: Major depressive disorder, single episode, moderate[ICD10: F32.1] Diagnosis: Diarrhea, unspecified[ICD10: R19.7] Rox Alvarez MD, [facility] CPT-4: 70746 04/21/2017 51570 EST. PATIENT, LEVEL IV Diagnosis: Generalized anxiety disorder[ICD10: F41.1] Diagnosis: Major depressive disorder, single episode, moderate[ICD10: F32.1] Diagnosis: Nausea[ICD10: R11.0] Diagnosis: Diarrhea, unspecified[ICD10: R19.7] Rox Alvarez MD, [facility] CPT-4: 29338 04/07/2017 ([id number]) 01509 EST. P ATIENT, LEVEL IV Diagnosis: Essential (primary) hypertension[ICD10: I10] Diagnosis: Nausea[ICD10: R11.0] Diagnosis: Other fecal abnormalities[ICD10: R19.5] Diagnosis: Tobacco use[ICD10: Z72.0] Selena Alvarez MD, [facility] CPT-4: 93659 01/27/2017 ([id number]) 32057 EST. P [facility], LEVEL III Diagnosis: Essential (primary) hypertension[ICD10: I10] Diagnosis: Chronic obstructive pulmonary disease, unspecified[ICD10: J44.9] Diagnosis: Rash and other nonspecific skin eruption[ICD10: R21] Selena Alvarez MD, C CPT-4: 07853 11/25/2016 ([id number]) 29893 EST. P [facility], LEVEL III Diagnosis: Other sites of candidiasis[ICD10: B37.89] Selena Alvarez MD, [facility] CPT-4: 57338 10/15/2016 ([id number]) 15261 EST. P [facility], LEVEL IV Diagnosis: Essential (primary) hypertension[ICD10: I10] Diagnosis: Urinary tract infection, site not specified[ICD10: N39.0] Diagnosis: Localized edema[ICD10: R60.0] Selena Alvarez MD, [facility] CPT-4: 46214 09/17/2016 37195 EST. 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 PATIENT, LEVEL III Diagnosis: Other specified bacterial intestinal infections[ICD10: A04.8] Rox Alvarez MD, [facility] CPT-4: 21009 04/16/2016 37259 EST. PATIENT, LEVEL II Diagnosis: Pain in right foot[ICD10: M79.671] Rox Alvarez MD, [facility] CPT-4: 03592 01/21/2016 96878 EST. PATIENT, LEVEL III Diagnosis: Encounter for therapeutic drug level monitoring[ICD10: Z51.81] Diagnosis: Rash and other nonspecific skin eruption[ICD10: R21] Rox Alvarez MD, [facility] CPT-4: 40430 01/10/2016 06584 EST. PATIENT, LEVEL III Diagnosis: Rash and other nonspecific skin eruption[ICD10: R21] Rox Alvarez MD [facility] CPT-4: 08785 01/07/2016 ([id number]) Miscellaneou s no charge Diagnosis: Cutaneous abscess of left axilla[ICD10: L02.412] Rox Alvarez MD [facility] CPT-4: 48166 01/02/2016 ([id number]) Miscellaneou s no charge Diagnosis: Cutaneous abscess of left axilla[ICD10: L02.412] Rox Alvarez MD [facility] CPT-4: 71628 01/01/2016 ([id number]) Miscellaneou s no charge Diagnosis: Cutaneous abscess of left axilla[ICD10: L02.412] Rox Alvarez MD [facility] CPT-4: 62483 12/31/2015 ([id number]) Patient adm itted to the hospital from clinic (NO CHARGE) Diagnosis: Cutaneous abscess of left axilla[ICD10: L02.412] Rox Alvarez MD, [facility] CPT-4: 49097O 12/25/2015 45847 EST. PATIENT, LEVEL III Diagnosis: Encounter for follow-up examination after completed treatment for conditions other than malignant neoplasm[ICD10: Z09] Diagnosis: Diverticulitis of intestine, part unspecified, without perforation or abscess with bleeding[ICD10: K57.93] Diagnosis: Cellulitis of left toe[ICD10: L03.032] Diagnosis: Other obesity due to excess calories[ICD10: E66.09] Diagnosis: Other long-term (current) drug therapy[ICD10: Z79.899] Rox Alvarez MD, [facility] CPT-4: 54773 10/11/2015 ([id number]) Miscellaneou s no charge Diagnosis: Encounter for therapeutic drug level monitoring[ICD10: Z51.81] Diagnosis: Other acute osteomyelitis, left ankle and foot[ICD10: M86.172] Rox Alvarez MD, [facility] CPT-4: 09592 08/24/2015 53344 EST. PATIENT, LEVEL IV Diagnosis: Cellulitis of left toe[ICD10: L03.032] Rox Alvarez MD, [facility] CPT-4: 21810 08/20/2015 89618 EST. PATIENT, LEVEL III Diagnosis: Essential (primary) hypertension[ICD10: I10] Diagnosis: Peripheral vascular disease, unspecified[ICD10: I73.9] Diagnosis: Dermatitis, unspecified[ICD10: L30.9] Rox Alvarez MD, [facility] CPT- 4: 17776 12/28/2014 ([id number]) 81338 EST. P ATIENT, LEVEL III Diagnosis: ESSENTIAL HYPERTENSION[ICD9: 401.9] Diagnosis: PAD (peripheral artery disease)[ICD9: 443.9] Diagnosis: Anticoagulated on Coumadin[ICD9: V58.83] Emy Alvarez MD, [facility] CPT-4: 59208 10/31/2014 ([id number]) 32108 EST. P ATIENT, LEVEL III Diagnosis: PAD (peripheral artery disease)[ICD9: 443.9] Diagnosis: Anticoagulated on Coumadin[ICD9: V58.83] Diagnosis: SCLERITIS[ICD9: 379.00] Diagnosis: ESSENTIAL HYPERTENSION[ICD9: 401.9] Selena Alvarez MD, [facility] CPT- 4: 47977 10/02/2014 ([id number]) [facility] 4 Diagnosis: GOUT[ICD9: 274.9] Diagnosis: COPD (chronic obstructive pulmonary disease)[ICD9: 496] Diagnosis: PAD (peripheral artery disease)[ICD9: 443.9] Diagnosis: ESSENTIAL HYPERTENSION[ICD9: 401.9] Selena Alvarez MD, [facility] CPT- 4: 85780 09/21/2014 Plan of Care Planned Activity Notes [...] vein specialist. 06/10/2018 Appointment: Rox Luciano WPtel: [address] [place], [place] [phone] (30 min) Complex 06/10/2018 Patient Education: Patient [...] continue PT 03/11/2018 Appointment: Rox Luciano WPtel: [address] [place], [place] [phone] (15 min) Moderate 03/11/2018 Patient Education: Patient Medication Summary Completed 03/11/2018 Appointment: Rox Luciano WPtel: [facility] (30 min) Complex 11/17/2017 Visit Plan: Cellulitis [...] warmth, discharge. 08/28/2017 Appointment: Rox Luciano WPtel: [facility]7 [facility] (30 min) Complex 08/28/2017 Patient Education: Patient [...] ADLs independently. 07/20/2017 Appointment: Rox Luciano WPtel: [address] [place], [place] [id number] (30 min) [facility] 07/20/2017 Patient Education: Patient Medication Summary Completed 07/20/2017 Referral: Stephanie Silva WPtel: Referral Initiated 05/04/2017 Care Plan: Referral Order SNOMED-CT : [id number] Pending 04/30/2017 Visit Plan: Chronic Depression and [...] pain. 04/21/2017 Appointment: Rox Luciano WPtel: [phone] [facility] (30 min) Complex 04/21/2017 Patient Education: Patient [...] pain. 04/07/2017 Appointment: Rox Luciano WPtel: [phone] [facility] (30 min) Complex 04/07/2017 Patient Education: Patient Medication Summary Completed 04/07/2017 Appointment: Selena Alvarez WPtel: [phone] [facility] (15 min) Moderate 02/26/2017 Visit [...] not improving. 01/27/2017 Appointment: Selena Alvarez WPtel: [address] [place], [place] [phone] (15 min) Moderate 01/27/2017 Patient Education: Patient [...] with nystatin 11/25/2016 Appointment: Selena Alvarez WPtel: [address] [place], [place] [phone] (15 min) Moderate 11/25/2016 Appointment: Selena Alvarez WPtel: [address] [place], [place] [phone] (15 min) Moderate 11/25/2016 Patient Education: Patient [...] of over-medication. 10/15/2016 Appointment: Selena Alvarez WPtel: [facility]5 [facility] (15 min) Moderate 10/15/2016 Patient Education: Patient Medication Summary Completed 10/15/2016 Patient Education: Smoking and Tobacco Addiction Completed 10/15/2016 [phone] ([facility] Complex 09/18/2016 Visit Plan: [...] evaluation. 08/14/2016 App[facility]ment: [phone] ([facility]) Complex 08/14/2016 Patient Education: [...] stomach pain. 04/16/2016 App[facility]ment: [phone] [facility] ([facility] min) Moderate 04/16/2016 Patient Education: Patient Medication Summary Completed 04/16/2016 Patient Education: Smoking and Tobacco Addiction Completed 04/16/2016 Referral: Dr Arboleda Referral Completed 02/14/2016 Care Plan: Referral Order SNOMED-CT : [id number] Pending 01/29/2016 Visit Plan: Right foot pain [...] warmth, discharge. 01/10/2016 Appointment: [phone] [facility] ([facility]) Complex 01/10/2016 Patient Education: [...] further I&D. 12/25/2015 Appointment: Emy Westbrook WPtel: [address] [place], [place] [phone] (15 min) Moderate 12/25/2015 Patient Education: Patient [...] care management. 10/11/2015 Appointment: Rox Luciano WPtel: [facility] ([facility] min) Complex 10/11/2015 Patient Education: Patient Medication Summary Completed 10/11/2015 Patient Education: Smoking and Tobacco Addiction Completed 10/11/2015 Patient Education: Obesity Completed 10/11/2015 Referral: Gavino Navarro they are g oing to call if they get him in before if not we will call Dr shook Initiated 09/27/2015 Appointment: Emy Westbrook WPtel: [facility]9 [phone] (15 min) Moderate 08/24/2015 Patient Education: Patient Medication Summary Completed 08/24/2015 Patient Education: Smoking and Tobacco Addiction Completed 08/24/2015 Patient Education: Patient Medication Summary Completed 08/23/2015 Appointment: Emy Westbrook [facility]el[phone] [phone] (30 min) Complex 08/22/2015 Ref[facility] Referral Initiated 08/22/2015 Visit Plan: Pt on [...] Hypertension Completed 12/28/2014 [facility]ointment: [phone] [facility] up 12/20/2014 Visit Plan: Hypertension [...] 09/21/2014 Care Plan: Referral Order SNOMED-CT : [id number] Ordered 09/21/2014 Appointment: Selena Alvarez WPtel: [phone] [place] [address] [place] (S) New Patient 09/20/2014 Referral: Martinez Wren WPtel: [phone] [place] [address] [place] Referral Initiated Referral: Gavino Navarro Referral Initiated Referral: [facility] WPtel: [address] Referral Initiated Referral: Dr Arboleda Referral Completed Referral: Stephanie Silva WPtel: Referral Initiated Instructions Comment . Left axilla absces s - packing removed - minimal purulent drainage noted, repacked and dressing applied. . Left axilla absces s - packing removed - minimal drainage noted, wound cleaned and dressing applied. . Yeast/candidal of groin - rx for [...] or with any questions or concerns. 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 [...] for varicose veins with vein specialist. . Hypertension - wel l controlled - [...] be able to perform ADLs independently. . Hypertension - wel l controlled - [...] symptoms worsen, or with questions or concerns. lactobacillus - PROB IOTIC - take three [...]
--- OUTSIDE RECORDS SUMMARY | 2019-08-20 18:25 | XMS REPORT | CCD ---
Author Author Bony Alvarez Organization Selena Alvarez MD, [facility] Address [address] [place] [address] Phone Care Team Providers Care Manager Store Name Role Phone PP Unavailable CCM Unavailable Summary Purpose Interface Exchange Insurance Providers Payer name Policy type / Coverage type Covered democrat ID Effective Begin Date Effective End Date [facility] Commercial Insurance [id number] 2017 Unknown Family history Father Diagnosis Age At Onset Hyperlipidemia Unknown Coronary Artery Disease Unknown Stroke Unknown Cancer Unknown Congestive heart failure Unknown Mother Diagnosis Age At Onset Hypertension Unknown kidney disease Unknown Cancer Unknown Stroke Unknown Hyperlipidemia Unknown Coronary Artery Disease Unknown Congestive heart failure Unknown Social History Social History Element Codes Description Effective Dates Tobacco history SNOMED CT: 356490188286423 Current some days smoker 09/21/2014 Allergies, Adverse [...] V67.59 ICD-10: Z09 Active 10/10/2015 Unknown Other [facility] (cur rent) drug therapy ICD-9: V58.69 ICD-10: [...] disorder ICD-9: 300.00 ICD-10: F41.1 04/21/2017 Active 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 ICD-9: V58.61 ICD-10: [...] ICD-9: V67.59 ICD-10: Z09 10/10/2015 Active Other [facility] (cur rent) drug therapy ICD-9: V58.69 ICD-10: [...] Fill Instructions Keflex 500 mg capsule RxNorm: 421591 1 Capsule(s) PO TID 06/11/2018 06/17/2018 Active Pepcid 20 mg tablet RxNorm: 088859 TAKE ONE TABLET BY MOUTH TWICE A DAY 05/25/2018 09/21/2018 Ac tive hydrocodone 7.5 mg-a cetaminophen 325 mg tablet RxNorm: 366094 1 Tablet(s) PO QID as needed 05/19/2018 06/17/2018 Active hydrocodone 7.5 mg-a cetaminophen 325 mg tablet RxNorm: 423406 1 Tablet(s) PO QID as needed 04/19/2018 05/18/2018 Inactive allopurinol 100 mg t ablet RxNorm: 554390 TAKE ONE TABLET BY MO UTH DAILY 04/06/2018 03/01/2019 Ac tive hydrocodone 7.5 mg-a cetaminophen 325 mg tablet RxNorm: 268204 1 Tablet(s) PO QID as needed 03/11/2018 04/09/2018 Inactive potassium chloride E R 20 mEq tablet,extended release RxNorm: 983693 Tablet(s) TAKE ONE TABLET BY MOUTH DAILY WHEN TAKING FUROSEMIDE NEEDED 03/05/2018 08/31/2018 Active gabapentin 300 mg ca psule RxNorm: 485943 TAKE ONE CAPSULE BY M OUTH THREE TIMES A DAY 03/04/2018 02/26/2019 Ac tive hydrocodone 7.5 mg-a cetaminophen 325 mg tablet RxNorm: 905337 1 Tablet(s) PO QID as needed 02/18/2018 03/10/2018 Inactive hydrocodone 7.5 mg-a cetaminophen 325 mg tablet RxNorm: 582135 1 Tablet(s) PO QID as needed 01/19/2018 02/17/2018 Inactive hydrocodone 7.5 mg-a cetaminophen 325 mg tablet RxNorm: 437546 1 Tablet(s) PO QID as needed 12/16/2017 01/14/2018 Inactive Pepcid 20 mg tablet RxNorm: 216764 Tablet(s) TAKE ONE TABLET BY MOUTH TWICE A DAY 12/08/2017 05/06/2018 Inactive hydrocodone 7.5 mg-a cetaminophen 325 mg tablet RxNorm: 927416 1 Tablet(s) PO QID as needed 11/18/2017 12/15/2017 Inactive gabapentin 300 mg ca psule RxNorm: 246516 Capsule(s) TAKE ONE C APSULE BY MOUTH THREE TIMES A DAY 11/11/2017 03/03/2018 Inactive gabapentin 300 mg ca psule RxNorm: 100003 TAKE ONE CAPSULE BY M OUTH THREE TIMES A DAY 11/10/2017 11/10/2017 Inactive hydrocodone 7.5 mg-a cetaminophen 325 mg tablet RxNorm: 517152 1 Tablet(s) PO QID as needed 10/19/2017 11/17/2017 Inactive hydrocodone 7.5 mg-a cetaminophen 325 mg tablet RxNorm: 350536 1 Tablet(s) PO QID as needed 09/16/2017 10/15/2017 Inactive doxycycline hyclate 100 mg capsule RxNorm: 0152942 1 Capsule(s) PO BID 08/28/2017 09/06/2017 In active hydrocodone 7.5 mg-a cetaminophen 325 mg tablet RxNorm: 827788 1 Tablet(s) PO QID as needed 08/21/2017 09/15/2017 Inactive Lexapro 10 mg tablet RxNorm: 472262 TAKE ONE TABLET BY MOUTH AT BEDTIME 08/02/2017 07/27/2018 Ac tive Zyrtec 10 mg tablet RxNorm: 4448290 1 Tablet(s) PO daily 07/20/2017 11/16/2017 Inactive hydrocodone 7.5 mg-a cetaminophen 325 mg tablet RxNorm: 335305 1 Tablet(s) PO QID as needed 07/20/2017 09/15/2017 Inactive furosemide 40 mg tablet RxNorm: 334263 Tablet(s) TAKE ONE TABLET BY MOUTH DAILY NEEDED FOR SWELLING 07/08/2017 01/03/2018 Inactive Pepcid 20 mg tablet RxNorm: 995195 TAKE ONE TABLET BY MOUTH TWICE A DAY 06/29/2017 11/25/2017 In active gabapentin 300 mg ca psule RxNorm: 559562 TAKE ONE CAPSULE BY M OUTH THREE TIMES A DAY 06/29/2017 10/26/2017 Inactive hydrocodone 7.5 mg-a cetaminophen 325 mg tablet RxNorm: 844449 1 Tablet(s) PO QID as needed 06/18/2017 07/17/2017 Inactive hydrocodone 7.5 mg-a cetaminophen 325 mg tablet RxNorm: 681920 1 Tablet(s) PO QID as needed 05/18/2017 06/16/2017 Inactive hydrocodone 7.5 mg-a cetaminophen 325 mg tablet RxNorm: 123956 1 Tablet(s) PO QID as needed 04/21/2017 05/17/2017 Inactive hyoscyamine 0.125 mg sublingual tablet RxNorm: 7879396 1 Tablet(s) SL TID a s needed 04/21/2017 04/25/2017 In active Lexapro 10 mg tablet RxNorm: 138862 1 Tablet(s) PO QHS 04/21/2017 07/19/2017 Inactive Flagyl 500 mg tablet RxNorm: 381194 1 Tablet(s) PO TID 04/07/2017 04/16/2017 Inactive Lexapro 10 mg tablet RxNorm: 728984 1 Tablet(s) PO QHS 04/07/2017 04/20/2017 Inactive hydrocodone 7.5 mg-a cetaminophen 325 mg tablet RxNorm: 358355 1 Tablet(s) PO QID as needed 03/24/2017 04/20/2017 Inactive allopurinol 100 mg t ablet RxNorm: 312896 TAKE ONE TABLET BY [facility] DAILY 03/10/2017 03/04/2018 In active hydrocodone 7.5 mg-a cetaminophen 325 mg tablet RxNorm: 257492 1 Tablet(s) PO QID as needed 02/11/2017 03/12/2017 Inactive gabapentin 300 mg ca psule RxNorm: 937165 TAKE ONE CAPSULE BY [facility] THREE TIMES A DAY 02/02/2017 06/28/2017 Inactive Zofran ODT 4 mg disi ntegrating tablet RxNorm: 209859 1 Tablet(s) PO QID as needed nausea and vomitting 01/27/2017 No Stop Date Active hydrocodone 7.5 mg-a cetaminophen 325 mg tablet RxNorm: 113893 1 Tablet(s) PO QID as needed 01/13/2017 02/10/2017 Inactive potassium chloride E R 20 mEq tablet,extended release RxNorm: 775911 TAKE ONE TABLET BY MOUTH DAILY WHEN TAKING FUROSEMIDE NEEDED 01/12/2017 07/10/2017 Inactive furosemide 40 mg tablet RxNorm: 335926 TAKE ONE TABLET BY MOUTH DAILY NEEDED FOR SWELLING 01/12/2017 07/09/2017 Inactive promethazine 25 mg t ablet RxNorm: 024815 TAKE ONE TABLET BY [facility] THREE TIMES A DAY NEEDED FOR NAUSEA AND VOMITING 01/12/2017 01/31/2017 Inactive promethazine 25 mg t ablet RxNorm: 861125 1 Tablet(s) PO TID as needed nausea and vomitting 01/06/2017 01/11/2017 Inactive Lomotil 2.5 mg-0.025 mg tablet RxNorm: 5754259 1-2 Tablet(s) PO BID as needed diarrhea 01/06/2017 01/05/2017 Inactive Lomotil 2.5 mg-0.025 mg tablet RxNorm: 0147776 1-2 Tablet(s) PO BID as needed diarrhea 01/06/2017 01/07/2017 Inactive Pepcid 20 mg tablet RxNorm: 434976 1 Tablet(s) PO BID 12/19/2016 06/16/2017 Inactive Pepcid 20 mg tablet RxNorm: 034766 1 Tablet(s) PO BID 12/16/2016 12/18/2016 Inactive hydrocodone 7.5 mg-a cetaminophen 325 mg tablet RxNorm: 207038 1 Tablet(s) PO QID as needed 12/16/2016 01/12/2017 Inactive hydrocodone 7.5 mg-a cetaminophen 325 mg tablet RxNorm: 082523 1 Tablet(s) PO QID as needed 11/18/2016 12/15/2016 Inactive allopurinol 100 mg t ablet RxNorm: 163032 TAKE ONE TABLET BY [facility] DAILY 10/29/2016 02/25/2017 In active hydrocodone 7.5 mg-a cetaminophen 325 mg tablet RxNorm: 923989 1 Tablet(s) PO QID as needed 10/15/2016 11/13/2016 Inactive nystatin 100,000 uni t/gram topical cream RxNorm: 907455 1 Gram(s) TOP QID 10/15/2016 11/25/2016 In active nystatin 100,000 uni t/gram topical powder RxNorm: 035371 1 Gram(s) TOP TID TO GROIN OR AFFECTED AREA 10/14/2016 No Stop Date Active hydrocodone 7.5 mg-a cetaminophen 325 mg tablet RxNorm: 596375 1 Tablet(s) PO QID as needed 09/17/2016 10/14/2016 Inactive furosemide 40 mg tablet RxNorm: 703201 1 Tablet(s) PO daily as needed swelling 09/17/2016 01/11/2017 In active potassium chloride E R 20 mEq tablet,extended release RxNorm: 021327 1 Tablet(s) PO daily as needed take when taking a lasix pill 09/17/2016 01/11/2017 Inactive Levaquin 500 mg tablet RxNorm: 724216 1 Tablet(s) PO daily 09/17/2016 09/21/2016 Inactive hydrocodone 7.5 mg-a cetaminophen 325 mg tablet RxNorm: 947449 1 Tablet(s) PO QID as needed 08/14/2016 09/12/2016 Inactive cyclobenzaprine 5 mg tablet RxNorm: 210676 1 Tablet(s) PO TID as needed 07/25/2016 07/29/2016 In active cyclobenzaprine 5 mg tablet RxNorm: 093650 1 Tablet(s) PO TID as needed 07/25/2016 07/24/2016 In active hydrocodone 7.5 mg-a cetaminophen 325 mg tablet RxNorm: 231135 1 Tablet(s) PO QID as needed 07/21/2016 08/13/2016 Inactive warfarin 1 mg tablet RxNorm: 341540 TAKE ONE TABLET BY MOUTH EVERY EVENING 06/26/2016 08/04/2016 In active hydrocodone 7.5 mg-a cetaminophen 325 mg tablet RxNorm: 563033 1 Tablet(s) PO QID as needed 06/24/2016 07/20/2016 Inactive hydrocodone 5 mg-yanira taminophen 325 mg tablet RxNorm: 612160 1 Tablet(s) PO Q6 as needed for pain 06/09/2016 06/10/2016 Inactive warfarin 1 mg tablet RxNorm: 631747 TAKE ONE TABLET BY MOUTH EVERY EVENING 06/02/2016 06/21/2016 In active allopurinol 100 mg t ablet RxNorm: 481899 TAKE ONE TABLET BY [facility] DAILY 05/21/2016 10/17/2016 In active hydrocodone 7.5 mg-a cetaminophen 325 mg tablet RxNorm: 657539 1 Tablet(s) PO QID as needed 05/09/2016 06/07/2016 Inactive gabapentin 300 mg ca psule RxNorm: 735185 Capsule(s) TAKE ONE C APSULE BY MOUTH THREE TIMES A DAY 04/25/2016 11/09/2017 Inactive promethazine 25 mg t ablet RxNorm: 298387 TAKE ONE TABLET BY MO [facility] THREE TIMES A DAY NEEDED 2016 05/01/2016 Inactive warfarin 1 mg tablet RxNorm: 099248 TAKE ONE TABLET BY MOUTH EVERY EVENING 2016 05/31/2016 In active promethazine 25 mg t ablet RxNorm: 554131 1 Tablet(s) PO TID as needed 04/16/2016 04/21/2016 In active warfarin 1 mg tablet RxNorm: 743766 TAKE ONE TABLET BY MOUTH EVERY EVENING 02/13/2016 04/12/2016 In active magnesium oxide 400 mg tablet RxNorm: 826320 TAKE ONE TABLET BY MO [place] TWICE A DAY 02/07/2016 01/01/2017 In active hydrocodone 5 mg-yanira taminophen 325 mg tablet RxNorm: 583459 1 Tablet(s) PO Q6 as needed for pain 01/21/2016 02/19/2016 Inactive warfarin 1 mg tablet RxNorm: 782101 TAKE ONE TABLET BY MOUTH EVERY EVENING 01/17/2016 02/05/2016 In active gabapentin 300 mg ca psule RxNorm: 935740 Capsule(s) TAKE ONE C APSULE BY MOUTH THREE TIMES A DAY 01/11/2016 04/24/2016 Inactive prednisone 10 mg tablet RxNorm: 024530 Tablet(s) PO UD 01/10/2016 03/08/2018 Inactive 60mg x2 days, then 50mg x2 days, then 40mg x2 days, 30mg x2 days, 20mg x2 days, 10mg x2days, 5mg every other day x 2 doses Kenalog 40 mg/mL cassius pension for injection RxNorm: 7967554 Milliliter(s) Inj 01/07/2016 01/07/2016 In active warfarin 1 mg tablet RxNorm: 484991 TAKE ONE TABLET BY MOUTH EVERY EVENING 01/01/2016 01/16/2016 In active hydrocodone 5 mg-yanira taminophen 325 mg tablet RxNorm: 281324 1 Tablet(s) PO Q6 as needed for pain 01/01/2016 01/15/2016 Inactive gabapentin 300 mg ca psule RxNorm: 325238 TAKE ONE CAPSULE BY M OUTH THREE TIMES A DAY 12/12/2015 01/10/2016 Inactive warfarin 5 mg tablet RxNorm: 850229 1 Tablet(s) PO daily 12/05/2015 No Stop Date Active warfarin 1 mg tablet RxNorm: 516333 TAKE ONE TABLET BY MOUTH EVERY EVENING 11/13/2015 12/22/2015 In active hydrocodone 5 mg-yanira taminophen 325 mg tablet RxNorm: 374806 1 Tablet(s) PO Q6 as needed for pain 10/26/2015 11/09/2015 Inactive allopurinol 100 mg t ablet RxNorm: 787574 1 Tablet(s) PO daily TAKE ONE TABLET BY MOUTH DAILY 10/18/2015 04/14/2016 Inactive hydrocodone 5 mg-yanira taminophen 325 mg tablet RxNorm: 468725 1 Tablet(s) PO Q6 as needed for pain 09/26/2015 10/10/2015 Inactive gabapentin 300 mg ca psule RxNorm: 727393 TAKE ONE CAPSULE BY M OUTH THREE TIMES A DAY 09/14/2015 12/11/2015 Inactive warfarin 1 mg tablet RxNorm: 687155 1 Tablet(s) PO QPM 09/14/2015 11/12/2015 Inactive hydrocodone 5 mg-yanira taminophen 325 mg tablet RxNorm: 112105 1 Tablet(s) PO Q6 as needed for pain 09/12/2015 09/25/2015 Inactive hydrocodone 5 mg-yanira taminophen 325 mg tablet RxNorm: 336904 1 Tablet(s) PO Q6 as needed for pain 08/22/2015 09/05/2015 Inactive Bactrim DS 800 mg-16 0 mg tablet RxNorm: 176132 1 Tablet(s) PO BID 08/20/2015 09/02/2015 Inactive magnesium oxide 400 mg tablet RxNorm: 325486 TAKE ONE TABLET BY [place] TWICE A DAY 01/20/2015 01/14/2016 In active gabapentin 300 mg ca psule RxNorm: 328023 TAKE ONE CAPSULE BY M OUTH THREE TIMES A DAY 01/20/2015 05/19/2015 Inactive magnesium oxide 400 mg tablet RxNorm: 120354 1 Tablet(s) PO BID 01/17/2015 05/16/2015 Inactive gabapentin 300 mg ca psule RxNorm: 646732 1 Capsule(s) PO TID 01/17/2015 05/16/2015 Inactive allopurinol 100 mg t ablet RxNorm: 847410 TAKE ONE TABLET BY [facility] DAILY 10/18/2014 10/12/2015 In active Kenalog 40 mg/mL cassius pension for injection RxNorm: 3280042 1 Milliliter(s) Inj 09/21/2014 09/21/2014 In active allopurinol 100 mg t ablet RxNorm: 088772 1 Tablet(s) PO daily 09/21/2014 10/17/2014 Inactive gabapentin 300 mg ca psule RxNorm: 191692 1 Capsule(s) PO TID 09/12/2014 01/09/2015 Inactive gabapentin 300 mg ca psule RxNorm: 155536 1 Capsule(s) PO TID 09/12/2014 09/11/2014 Inactive magnesium oxide 400 mg tablet RxNorm: 514978 1 Tablet(s) PO BID 09/12/2014 01/09/2015 Inactive magnesium oxide 400 mg tablet RxNorm: 150445 1 Tablet(s) PO BID 09/12/2014 09/11/2014 Inactive lisinopril 5 mg tablet RxNorm: 447997 1 Tablet(s) PO daily No Start Date Active atorvastatin oral RxNorm: 16912 oral No Start Date Active Coreg 6.25 mg tablet RxNorm: 105130 1 Tablet(s) PO BID No Start Date Active Combivent Respimat 2 0 mcg-100 mcg/actuation solution for inhalation RxNorm: 3098817 1 Puff(s) INH as needed No Start Date Active Ventolin Refill 90 m cg/actuation aerosol inhaler RxNorm: 838798 2 INH as needed No Start Date Active Centrum Silver Women oral RxNorm: [address] art Date Active aspirin 81 mg capsul e,delayed release RxNorm: 271225 1 Capsule(s) PO daily No Start Date Active nystatin 100,000 uni t/gram topical powder RxNorm: 543374 1 Gram(s) TOP TID No Start Date 10/13/2016 Inactive warfarin 1 mg tablet RxNorm: 891228 oral No Start Date 09/13/2015 Inactive Pepcid 20 mg tablet RxNorm: 908210 1 Tablet(s) PO BID No Start Date 12/15/2016 Inactive Protonix 40 mg table t,delayed release RxNorm: 271468 1 Tablet(s) PO daily No Start Date 09/16/2016 Inactive warfarin 5 mg tablet RxNorm: 451205 1 Tablet(s) PO daily 1.5 tabs on Thu No Start Date 12/04/2015 Inactive minocycline 50 mg ca psule RxNorm: 519210 1 Capsule(s) PO BID o rdered by Dr. Saravia No Start Date 03/08/2018 Inactive furosemide 40 mg tablet RxNorm: 361979 1 Tablet(s) PO daily No Start Date 09/16/2016 Inactive Medication Administered Medication Codes Instruc tions Start Date Status Kenalog 40 mg/mL suspension for injection RxNorm: 8728062 Milliliter 01/07/2016 No longer Active Kenalog 40 mg/mL suspension for injection RxNorm: 4835448 1Milliliter 09/21/2014 N o longer Active Immunizations No Immunization data Assessments Condition Codes Effectiv e Dates Localized edema ICD-10: R60.0 ICD-9: 782.3 06/10/2018 Varicose veins of right lower extremity with pain ICD-10: I83.811 ICD-9: 454.8 06/10/2018 Chronic pain syndrome ICD-10: G89.4 ICD-9: 338.4 03/11/2018 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 ICD-10: Z79.01 ICD-9: [...] neoplasm ICD-10: Z09 ICD-9: V67.59 10/11/2015 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 ICD-9: V58.69 [...] Item Item Code Result Date Comp Metabolic Lxf065 NA 136 mEq/L 03/11/2018 Comp Metabolic Xlc731 K 4.3 mEq/L 03/11/2018 Comp Metabolic Pop309 CL 101 mEq/L 03/11/2018 Comp Metabolic Upt750 CO2 27.0 mEq/L 03/11/2018 Comp Metabolic Jqs943 AN ION GAP 12 03/11/2018 Comp Metabolic Qnb922 GL UCOSE 87 mg/dL 03/11/2018 Comp Metabolic Dhp271 Cr eat 1.0 mg/dL 03/11/2018 Comp Metabolic Qsc554 eG FR 79 ml/min/1.73m2 03/11 Comp Metabolic Zfa046 BUN 12 mg/dL 03/11/2018 Comp Metabolic Bkz919 B/ C Ratio 12.1 Ratio 03/11/2018 Comp Metabolic Xep149 CA LCIUM 8.9 mg/dL 03/11/2018 Comp Metabolic Bms633 AL K PHOS 106 U/L 03/11/2018 Comp Metabolic Fqa825 T(SGOT) 16 U/L 03/11/2018 Comp Metabolic Umh059 AL T(SGPT) 11 U/L 03/11/2018 Comp Metabolic Cuc986 BI LI T 0.4 mg/dL 03/11/2018 Comp Metabolic Zwm217 AL BUMIN 3.8 g/dL 03/11/2018 Comp Metabolic Tnq077 TP RO 6.5 g/dL 03/11/2018 Comp Metabolic Ddv736 GL OB 2.7 g/dL 03/11/2018 Comp Metabolic Mdf088 A/ G Ratio 1.4 Ratio 03/11/2018 Comp Metabolic Wjg189 Os mo 271 mOsmo 03/11/2018 Cbc With [...] 29.8 pg 03/11/2018 Cbc With Differential Ord2 [place]% 11.3 % 03/11/2018 Cbc With Differential Ord2 [...] 2.87 K/ul 03/11/2018 Cbc With Differential Ord2 [place] ABS# 1.1 K/ul 03/11/2018 Cbc With Differential Ord2 Eos ABS# 0.4 K/ul 03/11/2018 Cbc With Differential Ord2 Baso ABS# 0.0 K/ul 03/11/2018 Pt Oom2451 PT 31.3 seconds 03/11/2018 Pt Xej8431 INR 3.1 03/11/2018 Pt Lgu8272 Low Intensity - 1.5-2.0 03/11/2018 Pt Ros5400 Mod intensity - 2.0-3.0 03/11/2018 Pt Lyu5181 Hi intensity - 3.0-4.0 03/11/2018 Tsh Ord6 TSH (3rd IS) 2.01 uIU/mL 03/11/2018 Shiga Toxin 1 & 2 Eia Stool [id number] SHIGA TOXIN 1: NEGATIVE 04/12/2017 Shiga Toxin 1 & 2 Eia Stool [id number] SHIGA TOXIN 2: NEGATIVE 04/12/2017 Culture Stool [id number] STO OL CULTURE SEE NOTES 04/12/2017 Clostridium Diff Tox A/B Oox944 Cdiff Negative 04/09/2017 Pt Wyl3364 PT 64.8 seconds 01/10/2016 Pt Buf0815 INR 8.6 01/10/2016 Pt Jom2203 Low Intensity - 1.5-2.0 01/10/2016 Pt Tdg7842 Mod intensity - 2.0-3.0 01/10/2016 Pt Ovn2872 Hi intensity - 3.0-4.0 01/10/2016 Pt Ypw6394 PT 32.1 seconds 11/01/2014 Pt Waw4332 INR 3.2 11/01/2014 Pt Hkg2914 Low Intensity - 1.5-2.0 11/01/2014 Pt Dkk9708 Mod intensity - 2.0-3.0 11/01/2014 Pt Wtp0721 Hi intensity - 3.0-4.0 11/01/2014 Pt Kno4790 PT 30.2 seconds 10/03/2014 Pt Lwz1808 INR 3.0 10/03/2014 Pt Cff5774 Low Intensity - 1.5-2.0 10/03/2014 Pt Msa3126 Mod intensity - 2.0-3.0 10/03/2014 Pt Dbq7271 Hi intensity - 3.0-4.0 10/03/2014 D-Dimer D-DIMER 475 NG/ML 09/25/2014 D-Dimer COMMENT 09/25/2014 Magnesium Ord90 Mag 1.1 Result Verified By Repeat Analysis mg/dL 09/22/2014 Pt Qsq4259 PT 32.0 seconds 09/22/2014 Pt Oec4710 INR 3.2 09/22/2014 Pt Wei2763 Low Intensity - 1.5-2.0 09/22/2014 Pt Pak4924 Mod intensity - 2.0-3.0 09/22/2014 Pt Ssq5837 Hi intensity - 3.0-4.0 09/22/2014 Comp Metabolic Hrx487 NA 137 mEq/L 09/22/2014 Comp Metabolic Hkm025 K 4.2 mEq/L 09/22/2014 Comp Metabolic Goj551 CL 102 mEq/L 09/22/2014 Comp Metabolic Bap501 CO2 25.0 mEq/L 09/22/2014 Comp Metabolic Hal735 AN ION GAP 14 09/22/2014 Comp Metabolic Wse055 GL UCOSE 94 mg/dL 09/22/2014 Comp Metabolic Fxr114 Cr eat 0.8 mg/dL 09/22/2014 Comp Metabolic Imj653 eG FR 102 ml/min/1.73m2 09/06 Comp Metabolic Jzl104 BUN 15 mg/dL 09/22/2014 Comp Metabolic Sam360 B/ C Ratio 18.8 Ratio 09/22/2014 Comp Metabolic Tgs971 CA LCIUM 9.4 mg/dL 09/22/2014 Comp Metabolic Ahs079 AL K PHOS 65 U/L 09/22/2014 Comp Metabolic Dtm987 T(SGOT) 15 U/L 09/22/2014 Comp Metabolic Qyq007 AL T(SGPT) 8 U/L 09/22/2014 Comp Metabolic Xdw652 BI LI T 0.4 mg/dL 09/22/2014 Comp Metabolic Fsx663 AL BUMIN 4.0 g/dL 09/22/2014 Comp Metabolic His491 TP RO 6.8 g/dL 09/22/2014 Comp Metabolic Uza481 GL OB 2.8 g/dL 09/22/2014 Comp Metabolic Sna377 A/ G Ratio 1.4 Ratio 09/22/2014 Comp Metabolic Sbf192 Os mo 274 mOsmo 09/22/2014 C-Reactive Protein [...] Procedure Codes Date THER/PROPH/DIAG INJ SC/IM CPT-4: 18679 08/28/2017 ROCEPHIN, PER 250 MG CPT-4: J0696 08/28/2017 TOBACCO-USE CONTROLLED 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 3-[address]: 282196266 CPT-4: G0436 01/27/2017 TOBACCO-USE CONTROLLED ATMOSPHERIC FURNACE BRAZER 3-[address]: 173568992 CPT-4: G0436 11/25/2016 TOBACCO-USE CONTROLLED ATMOSPHERIC FURNACE BRAZER 3-[address]: 453038631 CPT-4: G0436 10/15/2016 TOBACCO-USE CONTROLLED ATMOSPHERIC FURNACE BRAZER 3-[address]: 217512234 CPT-4: G0436 09/17/2016 THER/PROPH/DIAG INJ SC/IM CPT-4: 76885 01/07/2016 TRIAMCINOLONE ACET I [place] NOS CPT-4: J3301 01/07/2016 TRIAMCINOLONE ACET I [place] NOS CPT-4: J3301 09/21/2014 THER/PROPH/DIAG INJ SC/IM CPT-4: 69764 09/21/2014 Vital Signs Date Vital 06/10/2018 Blood Pressure 1: 122/60 Code: 8480-6 BMI: 31.4 Code: 53606-4 Heart Rate 1: 75 bpm Height: 5'3" SpO2: 98% Weight: 177 lbs 03/11/2018 Blood Pressure 1: 134/82 Code: 8480-6 BMI: 32.8 Code: 32949-3 Heart Rate 1: 65 bpm Height: 5'3" SpO2: 96% Weight: 185 lbs 08/28/2017 Blood Pressure 1: 138/72 Code: 8480-6 Heart Rate 1: 80 bpm Height: SpO2: 98% Weight: 07/20/2017 Blood Pressure 1: 134/76 Code: 8480-6 BMI: 29.6 Code: 62273-6 Heart Rate 1: 82 bpm Height: 5'3" [...] 1: 128/78 Code: 8480-6 BMI: 33.3 Code: 20423-8 Heart Rate 1: 72 bpm Height: 5'3" SpO2: 97% Weight: 188 lbs 01/10/2016 Blood Pressure 1: 132/76 Code: 8480-6 BMI: 33.1 Code: 44828-9 Heart Rate 1: 72 bpm Height: 5'3" SpO2: 97% Weight: 187 lbs 12/25/2015 Blood Pressure 1: 154/82 Code: 8480-6 BMI: 33.1 Code: 64847-5 Heart Rate 1: 72 bpm Height: 5'3" SpO2: 97% Weight: 187 lbs 10/11/2015 Blood Pressure 1: 110/62 Code: 8480-6 BMI: 34.7 Code: 51618-1 Heart Rate 1: 70 bpm Height: 5'3" SpO2: 93% Weight: 196 lbs 08/24/2015 Blood Pressure 1: 132/62 Code: 8480-6 BMI: 35.3 Code: 29552-3 Heart Rate 1: 62 bpm Height: 5'3" SpO2: 93% Weight: 199 lbs 08/20/2015 Blood Pressure 1: 140/68 Code: 8480-6 BMI: 35.3 Code: 70797-5 Heart Rate 1: 74 bpm Height: 5'3" SpO2: 96% Weight: 199 lbs 12/28/2014 Blood Pressure 1: 130/72 Code: 8480-6 BMI: 33.1 Code: 78417-2 Heart Rate 1: 60 bpm Height: 5'3" SpO2: 97% Weight: 187 lbs 10/31/2014 Blood Pressure 1: 118/72 Code: 8480-6 BMI: 31.2 Code: 55648-1 Heart Rate 1: 58 bpm Height: 5'3" SpO2: 98% Weight: 176 lbs 10/02/2014 Blood Pressure 1: 138/74 Code: 8480-6 BMI: 30.6 Code: 00462-8 Heart Rate 1: 72 bpm Height: 5'3" Weight: 173 lbs 09/21/2014 Blood Pressure 1: 138/72 Code: 8480-6 BMI: 30.5 Code: 50287-9 Heart Rate 1: 60 bpm Height: 5'3" [...] daily 12/25/2015 None Hospital Follow Up _ [facility] er: diverticulitis 10/11/2015 None Hospital Follow [...] Encounters Encounter Performer Loca tion Codes Date [id number] EST. PATIENT, LEVEL III Diagnosis: Localized edema[ICD10: R60.0] Diagnosis: Varicose veins of right lower extremity with pain[ICD10: I83.811] Rox Alvarez MD, [facility] CPT-4: 17711 06/10/2018 [id number] EST. 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 PATIENT, LEVEL III Diagnosis: Cellulitis of left axilla[ICD10: L03.112] Diagnosis: Cellulitis of right axilla[ICD10: L03.111] Rox Alvarez MD, [facility] CPT-4: 97941 08/28/2017 [id number] EST. 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 PATIENT, LEVEL IV Diagnosis: Generalized anxiety disorder[ICD10: F41.1] Diagnosis: Major depressive disorder, single episode, moderate[ICD10: F32.1] Diagnosis: Diarrhea, unspecified[ICD10: R19.7] Rox Alvarez MD, [facility] CPT-4: 27445 04/21/2017 [id number] EST. PATIENT, LEVEL IV Diagnosis: Generalized anxiety disorder[ICD10: F41.1] Diagnosis: Major depressive disorder, single episode, moderate[ICD10: F32.1] Diagnosis: Nausea[ICD10: R11.0] Diagnosis: Diarrhea, unspecified[ICD10: R19.7] Rox Alvarez MD, [facility] CPT-4: 85929 04/07/2017 ([id number]) [id number] EST. P ATIENT, LEVEL IV Diagnosis: Essential (primary) hypertension[ICD10: I10] Diagnosis: Nausea[ICD10: R11.0] Diagnosis: Other fecal abnormalities[ICD10: R19.5] Diagnosis: Tobacco use[ICD10: Z72.0] Selena Alvarez MD, [facility] CPT-4: 42413 01/27/2017 ([id number]) [id number] EST. [facility] Diagnosis: Essential (primary) hypertension[ICD10: I10] Diagnosis: Chronic obstructive pulmonary disease, unspecified[ICD10: J44.9] Diagnosis: Rash and other nonspecific skin eruption[ICD10: R21] Selena Alvarez MD, C CPT-4: 06505 11/25/2016 ([id number]) 88576 EST. [facility] Diagnosis: Other sites of candidiasis[ICD10: B37.89] Selena Alvarez MD, [facility] CPT-4: 27025 10/15/2016 ([id number]) 29664 EST. [facility] Diagnosis: Essential (primary) hypertension[ICD10: I10] Diagnosis: Urinary tract infection, site not specified[ICD10: N39.0] Diagnosis: Localized edema[ICD10: R60.0] Selena Alvarez MD, [facility] CPT-4: 40486 09/17/2016 10377 EST. 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 PATIENT, LEVEL III Diagnosis: Other specified bacterial intestinal infections[ICD10: A04.8] Rox Alvarez MD, [facility] CPT-4: 98606 04/16/2016 26727 EST. PATIENT, LEVEL II Diagnosis: Pain in right foot[ICD10: M79.671] Rox Alvarez MD, [facility] CPT-4: 47057 01/21/2016 71970 EST. PATIENT, LEVEL III Diagnosis: Encounter for therapeutic drug level monitoring[ICD10: Z51.81] Diagnosis: Rash and other nonspecific skin eruption[ICD10: R21] Rox Alvarez MD, [facility] CPT-4: 06919 01/10/2016 84702 EST. PATIENT, LEVEL III Diagnosis: Rash and other nonspecific skin eruption[ICD10: R21] Rox Alvarez MD [facility] CPT-4: 78546 01/07/2016 ([id number]) Miscellaneou s no charge Diagnosis: Cutaneous abscess of left axilla[ICD10: L02.412] Rox Alvarez MD [facility] CPT-4: 43261 01/02/2016 (04363) Miscellaneou s no charge Diagnosis: Cutaneous abscess of left axilla[ICD10: L02.412] Rox Alvarez MD [facility] CPT-4: 87343 01/01/2016 ([id number]) Miscellaneou s no charge Diagnosis: Cutaneous abscess of left axilla[ICD10: L02.412] Rox Alvarez MD [facility] CPT-4: 71421 12/31/2015 ([id number]) Patient adm itted to the hospital from clinic (NO CHARGE) Diagnosis: Cutaneous abscess of left axilla[ICD10: L02.412] Rox Alvarez MD, [facility] CPT-4: 29794D 12/25/2015 02090 EST. PATIENT, LEVEL III Diagnosis: Encounter for follow-up examination after completed treatment for conditions other than malignant neoplasm[ICD10: Z09] Diagnosis: Diverticulitis of intestine, part unspecified, without perforation or abscess with bleeding[ICD10: K57.93] Diagnosis: Cellulitis of left toe[ICD10: L03.032] Diagnosis: Other obesity due to excess calories[ICD10: E66.09] Diagnosis: Other mcfp (current) drug therapy[ICD10: Z79.899] Rox Alvarez MD, [facility] CPT-4: 27514 10/11/2015 ([id number]) Miscellaneou s no charge Diagnosis: Encounter for therapeutic drug level monitoring[ICD10: Z51.81] Diagnosis: Other acute osteomyelitis, left ankle and foot[ICD10: M86.172] Rox Alvarez MD, [facility] CPT-4: 26449 08/24/2015 59786 EST. PATIENT, LEVEL IV Diagnosis: Cellulitis of left toe[ICD10: L03.032] Rox Alvarez MD, [facility] CPT-4: 82520 08/20/2015 78693 EST. PATIENT, LEVEL III Diagnosis: Essential (primary) hypertension[ICD10: I10] Diagnosis: Peripheral vascular disease, unspecified[ICD10: I73.9] Diagnosis: Dermatitis, unspecified[ICD10: L30.9] Rox Alvarez MD, [facility] CPT- 4: 30423 12/28/2014 ([id number]) 58446 EST. P ATIENT, LEVEL III Diagnosis: ESSENTIAL HYPERTENSION[ICD9: 401.9] Diagnosis: PAD (peripheral artery disease)[ICD9: 443.9] Diagnosis: Anticoagulated on Coumadin[ICD9: V58.83] Emy Alvarez MD, [facility] CPT-4: 92864 10/31/2014 ([id number]) 24050 EST. P ATIENT, LEVEL III Diagnosis: PAD (peripheral artery disease)[ICD9: 443.9] Diagnosis: Anticoagulated on Coumadin[ICD9: V58.83] Diagnosis: SCLERITIS[ICD9: 379.00] Diagnosis: ESSENTIAL HYPERTENSION[ICD9: 401.9] Selena Alvarez MD, [facility] CPT- 4: 65399 10/02/2014 ([id number]) [facility] 4 Diagnosis: GOUT[ICD9: 274.9] Diagnosis: COPD (chronic obstructive pulmonary disease)[ICD9: 496] Diagnosis: PAD (peripheral artery disease)[ICD9: 443.9] Diagnosis: ESSENTIAL HYPERTENSION[ICD9: 401.9] Selena Alvarez MD, [facility] CPT- 4: 31461 09/21/2014 Plan of Care Planned Activity Notes [...] vein specialist. 06/10/2018 Appointment: Rox Luciano WPtel: [address] [place], [place] [id number] (30 min) Complex 06/10/2018 Patient Education: [...] continue PT 03/11/2018 Appointment: Rox Luciano WPtel: [address] [place], [place] [id number] (15 min) Moderate 03/11/2018 Patient Education: Patient Medication Summary Completed 03/11/2018 Appointment: Rox Luciano WPtel: [facility] (30 min) Complex 11/17/2017 Visit Plan: [...] warmth, discharge. 08/28/2017 Appointment: Rox Luciano WPtel: [facility]3 [facility] (30 min) Complex 08/28/2017 Patient Education: Patient [...] ADLs independently. 07/20/2017 Appointment: Rox Luciano WPtel: [address] [place], [place] [id number] (30 min) [facility] 07/20/2017 Patient Education: Patient Medication Summary Completed 07/20/2017 Referral: Stephanie Silva WPtel: Referral Initiated 05/04/2017 Care Plan: Referral Order SNOMED-CT : 818067063 Pending 04/30/2017 Visit Plan: Chronic Depression and [...] Rox Luciano WPtel: [phone] [facility]6[address] (30 min) Complex 04/21/2017 Patient Education: Patient [...] stomach pain. 04/07/2017 Appointment: Rox Luciano WPtel: [phone] [facility] (30 min) Complex 04/07/2017 Patient Education: Patient Medication Summary Completed 04/07/2017 Appointment: Selena Alvarez WPtel: [phone] [facility] (15 min) Moderate 02/26/2017 Visit Plan: Hypertension [...] not improving. 01/27/2017 Appointment: Selena Alvarez WPtel: [address] [place], [place] [phone] (15 min) Moderate 01/27/2017 Patient Education: Patient [...] with nystatin 11/25/2016 Appointment: Selena Alvarez WPtel: [address] [place], [place] [phone] (15 min) Moderate 11/25/2016 Appointment: Selena Alvarez WPtel: [address] [place], [place] [phone] (15 min) Moderate 11/25/2016 Patient Education: Patient [...] of over-medication. 10/15/2016 Appointment: Selena Alvarez WPtel: [facility]5 [facility] (15 min) Moderate 10/15/2016 Patient Education: Patient Medication Summary Completed 10/15/2016 Patient Education: Smoking and Tobacco Addiction Completed 10/15/2016 Appointment: Rox Luciano WPtel: [phone] (30 min) Complex 09/18/2016 Visit Plan: Hypertension [...] evaluation. 08/14/2016 Appointment: Rox Luciano WPtel: [phone] [facility] (30 min) Complex 08/14/2016 Patient Education: Patient [...] stomach pain. 04/16/2016 Appointment: Rox Luciano WPtel: [phone] [facility] (15 min) Moderate 04/16/2016 Patient Education: Patient Medication Summary Completed 04/16/2016 Patient Education: Smoking and Tobacco Addiction Completed 04/16/2016 Referral: Dr Arboleda Referral Completed 02/14/2016 Care Plan: Referral Order SNOMED-CT : [id number] Pending 01/29/2016 Visit Plan: Right foot pain [...] warmth, discharge. 01/10/2016 Appointment: Rox Luciano WPtel: [phone] [facility] (30 min) Complex 01/10/2016 Patient Education: Patient [...] further I&D. 12/25/2015 Appointment: Emy Westbrook WPtel: [address] [place], [place] [phone] (15 min) Moderate 12/25/2015 Patient Education: Patient [...] care management. 10/11/2015 Appointment: Rox Luciano WPtel: [facility] (30 min) Complex 10/11/2015 Patient Education: Patient Medication Summary Completed 10/11/2015 Patient Education: Smoking and Tobacco Addiction Completed 10/11/2015 Patient Education: Obesity Completed 10/11/2015 Referral: Gavino Navarro they are g oing to call if they get him in before if not we will call Dr shook Initiated 09/27/2015 Appointment: Emy Westbrook WPtel: [phone] (15 min) Moderate 08/24/2015 Patient Education: Patient Medication Summary Completed 08/24/2015 Patient Education: Smoking and Tobacco Addiction Completed 08/24/2015 Patient Education: Patient Medication Summary Completed 08/23/2015 Appointment: Emy Westbrook WPtel: [phone] [id number] (30 min) Complex 08/22/2015 Referral: [facility] Referral Initiated 08/22/2015 Visit Plan: [...] Hypertension Completed 12/28/2014 Appointment: Selena Alvarez [facility]Ptel[phone] Follow up 12/20/2014 Visit Plan: Hypertension - [...] 09/21/2014 Care Plan: Referral Order SNOMED-CT : [id number] Ordered 09/21/2014 Appointment: Selena Alvarez WPtel: [phone] [address] [place] ([place]) New Patient 09/20/2014 Referral: Martinez Wren WPtel: [address] [address] [place] Referral Initiated Referral: Gavino Navarro Referral Initiated Referral: [facility] WPtel: [address] Referral Initiated Referral: Dr Arboleda Referral [...] directed, and understands the consequences of over-medication. . Hypertension - wel l controlled - [...] check INR on thursday probiotics - [facility] . Gastroenteritis - discussed need to stay [...] increase in pain, worsening redness, warmth, discharge. 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 [...] for varicose veins with vein specialist. . Cellulitis bilater al axilla - The [...] symptoms worsen, or with questions or concerns. We will check PT/INR today Go directly [...] - Pt states that he [facility] for [facility] abscess and they started [...] to be able to perform ADLs independently. lactobacillus - PROB IOTIC - take three [...]
--- OUTSIDE RECORDS SUMMARY | 2019-08-20 18:26 | XMS REPORT | CCD ---
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 Role Phone PP Unavailable CCM Unavailable Summary Purpose Interface Exchange Insurance Providers Payer name Policy type / Coverage type Covered democrat ID Effective Begin Date Effective End Date [facility] Commercial Insurance [id number] 2017 Unknown Family history Father Diagnosis Age At Onset Hyperlipidemia Unknown Coronary Artery Disease Unknown Stroke Unknown Cancer Unknown Congestive heart failure Unknown Mother Diagnosis Age At Onset Hypertension Unknown kidney disease Unknown Cancer Unknown Stroke Unknown Hyperlipidemia Unknown Coronary Artery Disease Unknown Congestive heart failure Unknown Social History Social History Element Codes Description Effective Dates Tobacco history SNOMED CT: 740939043975627 Current some days smoker 09/21/2014 Allergies, Adverse [...] ICD-9: 300.00 ICD-10: F41.1 Active 04/21/2017 Unknown shelter (current) use of anticoagulants ICD-9: V58.61 ICD-10: [...] ICD-9: 112.89 ICD-10: B37.89 Active 10/15/2016 Unknown Localized edema ICD-9: 782.3 ICD-10: R60.0 [...] V67.59 ICD-10: Z09 Active 10/10/2015 Unknown Other intermediate (cur rent) drug therapy ICD-9: V58.69 ICD-10: [...] disorder ICD-9: 300.00 ICD-10: F41.1 04/21/2017 Active shelter (current) use of anticoagulants ICD-9: V58.61 ICD-10: [...] diasis ICD-9: 112.89 ICD-10: B37.89 10/15/2016 Active Localized edema ICD-9: 782.3 ICD-10: R60.0 [...] ICD-9: V67.59 ICD-10: Z09 10/10/2015 Active 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 ICD-9: V58.69 ICD-10: [...] Fill Instructions Pepcid 20 mg tablet RxNorm: 967974 TAKE ONE TABLET BY MOUTH TWICE A DAY 05/25/2018 09/21/2018 Ac tive hydrocodone 7.5 mg-a cetaminophen 325 mg tablet RxNorm: 706568 1 Tablet(s) PO QID as needed 05/19/2018 06/17/2018 Active hydrocodone 7.5 mg-a cetaminophen 325 mg tablet RxNorm: 356770 1 Tablet(s) PO QID as needed 04/19/2018 05/18/2018 Inactive allopurinol 100 mg t ablet RxNorm: 418910 TAKE ONE TABLET BY MO [facility] DAILY 04/06/2018 03/01/2019 Ac tive hydrocodone 7.5 mg-a cetaminophen 325 mg tablet RxNorm: 722757 1 Tablet(s) PO QID as needed 03/11/2018 04/09/2018 Inactive potassium chloride E R 20 mEq tablet,extended release RxNorm: 520877 Tablet(s) TAKE ONE TABLET BY MOUTH DAILY WHEN TAKING FUROSEMIDE NEEDED 03/05/2018 08/31/2018 Active gabapentin 300 mg ca psule RxNorm: 919643 TAKE ONE CAPSULE BY M [facility] THREE TIMES A DAY 03/04/2018 02/26/2019 Ac tive hydrocodone 7.5 mg-a cetaminophen 325 mg tablet RxNorm: 703870 1 Tablet(s) PO QID as needed 02/18/2018 03/10/2018 Inactive hydrocodone 7.5 mg-a cetaminophen 325 mg tablet RxNorm: 020942 1 Tablet(s) PO QID as needed 01/19/2018 02/17/2018 Inactive hydrocodone 7.5 mg-a cetaminophen 325 mg tablet RxNorm: 717859 1 Tablet(s) PO QID as needed 12/16/2017 01/14/2018 Inactive Pepcid 20 mg tablet RxNorm: 001916 Tablet(s) TAKE ONE TABLET BY MOUTH TWICE A DAY 12/08/2017 05/06/2018 Inactive hydrocodone 7.5 mg-a cetaminophen 325 mg tablet RxNorm: 118748 1 Tablet(s) PO QID as needed 11/18/2017 12/15/2017 Inactive gabapentin 300 mg ca psule RxNorm: 034961 Capsule(s) TAKE ONE C APSULE BY MOUTH THREE TIMES A DAY 11/11/2017 03/03/2018 Inactive gabapentin 300 mg ca psule RxNorm: 269452 TAKE ONE CAPSULE BY M [facility] THREE TIMES A DAY 11/10/2017 11/10/2017 Inactive hydrocodone 7.5 mg-a cetaminophen 325 mg tablet RxNorm: 161539 1 Tablet(s) PO QID as needed 10/19/2017 11/17/2017 Inactive hydrocodone 7.5 mg-a cetaminophen 325 mg tablet RxNorm: 386429 1 Tablet(s) PO QID as needed 09/16/2017 10/15/2017 Inactive doxycycline hyclate 100 mg capsule RxNorm: 2361063 1 Capsule(s) PO BID 08/28/2017 09/06/2017 In active hydrocodone 7.5 mg-a cetaminophen 325 mg tablet RxNorm: 862277 1 Tablet(s) PO QID as needed 08/21/2017 09/15/2017 Inactive Lexapro 10 mg tablet RxNorm: 157418 TAKE ONE TABLET BY MOUTH AT BEDTIME 08/02/2017 07/27/2018 Ac tive Zyrtec 10 mg tablet RxNorm: 5629312 1 Tablet(s) PO daily 07/20/2017 11/16/2017 Inactive hydrocodone 7.5 mg-a cetaminophen 325 mg tablet RxNorm: 068743 1 Tablet(s) PO QID as needed 07/20/2017 09/15/2017 Inactive furosemide 40 mg tablet RxNorm: 892523 Tablet(s) TAKE ONE TABLET BY MOUTH DAILY NEEDED FOR SWELLING 07/08/2017 01/03/2018 Inactive Pepcid 20 mg tablet RxNorm: 974847 TAKE ONE TABLET BY MOUTH TWICE A DAY 06/29/2017 11/25/2017 In active gabapentin 300 mg ca psule RxNorm: 813798 TAKE ONE CAPSULE BY M OUT THREE TIMES A DAY 06/29/2017 10/26/2017 Inactive hydrocodone 7.5 mg-a cetaminophen 325 mg tablet RxNorm: 402283 1 Tablet(s) PO QID as needed 06/18/2017 07/17/2017 Inactive hydrocodone 7.5 mg-a cetaminophen 325 mg tablet RxNorm: 980813 1 Tablet(s) PO QID as needed 05/18/2017 06/16/2017 Inactive hydrocodone 7.5 mg-a cetaminophen 325 mg tablet RxNorm: 831131 1 Tablet(s) PO QID as needed 04/21/2017 05/17/2017 Inactive hyoscyamine 0.125 mg sublingual tablet RxNorm: 9830401 1 Tablet(s) SL TID a s needed 04/21/2017 04/25/2017 In active Lexapro 10 mg tablet RxNorm: 006211 1 Tablet(s) PO QHS 04/21/2017 07/19/2017 Inactive Flagyl 500 mg tablet RxNorm: 646581 1 Tablet(s) PO TID 04/07/2017 04/16/2017 Inactive Lexapro 10 mg tablet RxNorm: 546194 1 Tablet(s) PO QHS 04/07/2017 04/20/2017 Inactive hydrocodone 7.5 mg-a cetaminophen 325 mg tablet RxNorm: 109732 1 Tablet(s) PO QID as needed 03/24/2017 04/20/2017 Inactive allopurinol 100 mg t ablet RxNorm: 244001 TAKE ONE TABLET BY MO [facility] DAILY 03/10/2017 03/04/2018 In active hydrocodone 7.5 mg-a cetaminophen 325 mg tablet RxNorm: 599822 1 Tablet(s) PO QID as needed 02/11/2017 03/12/2017 Inactive gabapentin 300 mg ca psule RxNorm: 206126 TAKE ONE CAPSULE BY M [facility] THREE TIMES A DAY 02/02/2017 06/28/2017 Inactive Zofran ODT 4 mg disi ntegrating tablet RxNorm: 310213 1 Tablet(s) PO QID as needed nausea and vomitting 01/27/2017 No Stop Date Active hydrocodone 7.5 mg-a cetaminophen 325 mg tablet RxNorm: 062769 1 Tablet(s) PO QID as needed 01/13/2017 02/10/2017 Inactive potassium chloride E R 20 mEq tablet,extended release RxNorm: 199611 TAKE ONE TABLET BY MOUTH DAILY WHEN TAKING FUROSEMIDE NEEDED 01/12/2017 07/10/2017 Inactive furosemide 40 mg tablet RxNorm: 956642 TAKE ONE TABLET BY MOUTH DAILY NEEDED FOR SWELLING 01/12/2017 07/09/2017 Inactive promethazine 25 mg t ablet RxNorm: 209427 TAKE ONE TABLET BY MO [facility] THREE TIMES A DAY NEEDED FOR NAUSEA AND VOMITING 01/12/2017 01/31/2017 Inactive promethazine 25 mg t ablet RxNorm: 035464 1 Tablet(s) PO TID as needed nausea and vomitting 01/06/2017 01/11/2017 Inactive Lomotil 2.5 mg-0.025 mg tablet RxNorm: 7097301 1-2 Tablet(s) PO BID as needed diarrhea 01/06/2017 01/05/2017 Inactive Lomotil 2.5 mg-0.025 mg tablet RxNorm: 6536049 1-2 Tablet(s) PO BID as needed diarrhea 01/06/2017 01/07/2017 Inactive Pepcid 20 mg tablet RxNorm: 200782 1 Tablet(s) PO BID 12/19/2016 06/16/2017 Inactive Pepcid 20 mg tablet RxNorm: 238969 1 Tablet(s) PO BID 12/16/2016 12/18/2016 Inactive hydrocodone 7.5 mg-a cetaminophen 325 mg tablet RxNorm: 624781 1 Tablet(s) PO QID as needed 12/16/2016 01/12/2017 Inactive hydrocodone 7.5 mg-a cetaminophen 325 mg tablet RxNorm: 585587 1 Tablet(s) PO QID as needed 11/18/2016 12/15/2016 Inactive allopurinol 100 mg t ablet RxNorm: 418503 TAKE ONE TABLET BY MO [facility] DAILY 10/29/2016 02/25/2017 In active hydrocodone 7.5 mg-a cetaminophen 325 mg tablet RxNorm: 708902 1 Tablet(s) PO QID as needed 10/15/2016 11/13/2016 Inactive nystatin 100,000 uni t/gram topical cream RxNorm: 667456 1 Gram(s) TOP QID 10/15/2016 11/25/2016 In active nystatin 100,000 uni t/gram topical powder RxNorm: 485286 1 Gram(s) TOP TID TO GROIN OR AFFECTED AREA 10/14/2016 No Stop Date Active hydrocodone 7.5 mg-a cetaminophen 325 mg tablet RxNorm: 793282 1 Tablet(s) PO QID as needed 09/17/2016 10/14/2016 Inactive furosemide 40 mg tablet RxNorm: 230959 1 Tablet(s) PO daily as needed swelling 09/17/2016 01/11/2017 In active potassium chloride E R 20 mEq tablet,extended release RxNorm: 986684 1 Tablet(s) PO daily as needed take when taking a lasix pill 09/17/2016 01/11/2017 Inactive Levaquin 500 mg tablet RxNorm: 703797 1 Tablet(s) PO daily 09/17/2016 09/21/2016 Inactive hydrocodone 7.5 mg-a cetaminophen 325 mg tablet RxNorm: 802471 1 Tablet(s) PO QID as needed 08/14/2016 09/12/2016 Inactive cyclobenzaprine 5 mg tablet RxNorm: 690408 1 Tablet(s) PO TID as needed 07/25/2016 07/29/2016 In active cyclobenzaprine 5 mg tablet RxNorm: 597028 1 Tablet(s) PO TID as needed 07/25/2016 07/24/2016 In active hydrocodone 7.5 mg-a cetaminophen 325 mg tablet RxNorm: 939219 1 Tablet(s) PO QID as needed 07/21/2016 08/13/2016 Inactive warfarin 1 mg tablet RxNorm: 312606 TAKE ONE TABLET BY MOUTH EVERY EVENING 06/26/2016 08/04/2016 In active hydrocodone 7.5 mg-a cetaminophen 325 mg tablet RxNorm: 993460 1 Tablet(s) PO QID as needed 06/24/2016 07/20/2016 Inactive hydrocodone 5 mg-yanira taminophen 325 mg tablet RxNorm: 585258 1 Tablet(s) PO Q6 as needed for pain 06/09/2016 06/10/2016 Inactive warfarin 1 mg tablet RxNorm: 452967 TAKE ONE TABLET BY MOUTH EVERY EVENING 06/02/2016 06/21/2016 In active allopurinol 100 mg t ablet RxNorm: 344775 TAKE ONE TABLET BY MO [facility] DAILY 05/21/2016 10/17/2016 In active hydrocodone 7.5 mg-a cetaminophen 325 mg tablet RxNorm: 358547 1 Tablet(s) PO QID as needed 05/09/2016 06/07/2016 Inactive gabapentin 300 mg ca psule RxNorm: 510341 Capsule(s) TAKE ONE C APSULE BY MOUTH THREE TIMES A DAY 04/25/2016 11/09/2017 Inactive promethazine 25 mg t ablet RxNorm: 328471 TAKE ONE TABLET BY MO [facility] THREE TIMES A DAY NEEDED 2016 05/01/2016 Inactive warfarin 1 mg tablet RxNorm: 803731 TAKE ONE TABLET BY MOUTH EVERY EVENING 2016 05/31/2016 In active promethazine 25 mg t ablet RxNorm: 653861 1 Tablet(s) PO TID as needed 04/16/2016 04/21/2016 In active warfarin 1 mg tablet RxNorm: 067004 TAKE ONE TABLET BY MOUTH EVERY EVENING 02/13/2016 04/12/2016 In active magnesium oxide 400 mg tablet RxNorm: 595587 TAKE ONE TABLET BY MO [facility] TWICE A DAY 02/07/2016 01/01/2017 In active hydrocodone 5 mg-yanira taminophen 325 mg tablet RxNorm: 226942 1 Tablet(s) PO Q6 as needed for pain 01/21/2016 02/19/2016 Inactive warfarin 1 mg tablet RxNorm: 370505 TAKE ONE TABLET BY MOUTH EVERY EVENING 01/17/2016 02/05/2016 In active gabapentin 300 mg ca psule RxNorm: 156470 Capsule(s) TAKE ONE C APSULE BY MOUTH THREE TIMES A DAY 01/11/2016 04/24/2016 Inactive prednisone 10 mg tablet RxNorm: 926372 Tablet(s) PO UD 01/10/2016 03/08/2018 Inactive 60mg x2 days, then 50mg x2 days, then 40mg x2 days, 30mg x2 days, 20mg x2 days, 10mg x2days, 5mg every other day x 2 doses Kenalog 40 mg/mL cassius pension for injection RxNorm: 4812508 Milliliter(s) Inj 01/07/2016 01/07/2016 In active warfarin 1 mg tablet RxNorm: 119084 TAKE ONE TABLET BY MOUTH EVERY EVENING 01/01/2016 01/16/2016 In active hydrocodone 5 mg-yanira taminophen 325 mg tablet RxNorm: 028935 1 Tablet(s) PO Q6 as needed for pain 01/01/2016 01/15/2016 Inactive gabapentin 300 mg ca psule RxNorm: 109096 TAKE ONE CAPSULE BY M OUT[facility] THREE TIMES A DAY 12/12/2015 01/10/2016 Inactive warfarin 5 mg tablet RxNorm: 300989 1 Tablet(s) PO daily 12/05/2015 No Stop Date Active warfarin 1 mg tablet RxNorm: 097151 TAKE ONE TABLET BY MOUTH EVERY EVENING 11/13/2015 12/22/2015 In active hydrocodone 5 mg-yanira taminophen 325 mg tablet RxNorm: 389220 1 Tablet(s) PO Q6 as needed for pain 10/26/2015 11/09/2015 Inactive allopurinol 100 mg t ablet RxNorm: 701875 1 Tablet(s) PO daily TAKE ONE TABLET BY MOUTH DAILY 10/18/2015 04/14/2016 Inactive hydrocodone 5 mg-yanira taminophen 325 mg tablet RxNorm: 408374 1 Tablet(s) PO Q6 as needed for pain 09/26/2015 10/10/2015 Inactive gabapentin 300 mg ca psule RxNorm: 699289 TAKE ONE CAPSULE BY M OUT[facility] THREE TIMES A DAY 09/14/2015 12/11/2015 Inactive warfarin 1 mg tablet RxNorm: 811563 1 Tablet(s) PO QPM 09/14/2015 11/12/2015 Inactive hydrocodone 5 mg-yanira taminophen 325 mg tablet RxNorm: 635487 1 Tablet(s) PO Q6 as needed for pain 09/12/2015 09/25/2015 Inactive hydrocodone 5 mg-yanira taminophen 325 mg tablet RxNorm: 782040 1 Tablet(s) PO Q6 as needed for pain 08/22/2015 09/05/2015 Inactive Bactrim DS 800 mg-16 0 mg tablet RxNorm: 671422 1 Tablet(s) PO BID 08/20/2015 09/02/2015 Inactive magnesium oxide 400 mg tablet RxNorm: 624597 TAKE ONE TABLET BY [facility] TWICE A DAY 01/20/2015 01/14/2016 In active gabapentin 300 mg ca psule RxNorm: 891667 TAKE ONE CAPSULE BY [facility] THREE TIMES A DAY 01/20/2015 05/19/2015 Inactive magnesium oxide 400 mg tablet RxNorm: 285953 1 Tablet(s) PO BID 01/17/2015 05/16/2015 Inactive gabapentin 300 mg ca psule RxNorm: 433470 1 Capsule(s) PO TID 01/17/2015 05/16/2015 Inactive allopurinol 100 mg t ablet RxNorm: 382341 TAKE ONE TABLET BY [facility] DAILY 10/18/2014 10/12/2015 In active Kenalog 40 mg/mL cassius pension for injection RxNorm: 1766401 1 Milliliter(s) Inj 09/21/2014 09/21/2014 In active allopurinol 100 mg t ablet RxNorm: 197333 1 Tablet(s) PO daily 09/21/2014 10/17/2014 Inactive gabapentin 300 mg ca psule RxNorm: 683754 1 Capsule(s) PO TID 09/12/2014 01/09/2015 Inactive gabapentin 300 mg ca psule RxNorm: 451747 1 Capsule(s) PO TID 09/12/2014 09/11/2014 Inactive magnesium oxide 400 mg tablet RxNorm: 124336 1 Tablet(s) PO BID 09/12/2014 01/09/2015 Inactive magnesium oxide 400 mg tablet RxNorm: 095795 1 Tablet(s) PO BID 09/12/2014 09/11/2014 Inactive lisinopril 5 mg tablet RxNorm: 144384 1 Tablet(s) PO daily No Start Date Active atorvastatin oral RxNorm: 66496 oral No Start Date Active Coreg 6.25 mg tablet RxNorm: 663604 1 Tablet(s) PO BID No Start Date Active Combivent Respimat 2 0 mcg-100 mcg/actuation solution for inhalation RxNorm: 3060614 1 Puff(s) INH as needed No Start Date Active Ventolin Refill 90 m cg/actuation aerosol inhaler RxNorm: 820720 2 INH as needed No Start Date Active Centrum Silver Women oral RxNorm: [address] art Date Active aspirin 81 mg capsul e,delayed release RxNorm: 852826 1 Capsule(s) PO daily No Start Date Active nystatin 100,000 uni t/gram topical powder RxNorm: 181517 1 Gram(s) TOP TID No Start Date 10/13/2016 Inactive warfarin 1 mg tablet RxNorm: 007888 oral No Start Date 09/13/2015 Inactive Pepcid 20 mg tablet RxNorm: 737650 1 Tablet(s) PO BID No Start Date 12/15/2016 Inactive Protonix 40 mg table t,delayed release RxNorm: 725286 1 Tablet(s) PO daily No Start Date 09/16/2016 Inactive warfarin 5 mg tablet RxNorm: 471691 1 Tablet(s) PO daily 1.5 tabs on Thu No Start Date 12/04/2015 Inactive minocycline 50 mg ca psule RxNorm: 317859 1 Capsule(s) PO BID o rdered by Dr. Saravia No Start Date 03/08/2018 Inactive furosemide 40 mg tablet RxNorm: 261523 1 Tablet(s) PO daily No Start Date 09/16/2016 Inactive Medication Administered Medication Codes Instruc tions Start Date Status Kenalog 40 mg/mL suspension for injection RxNorm: 7990202 Milliliter 01/07/2016 No longer Active Kenalog 40 mg/mL suspension for injection RxNorm: 5037479 1Milliliter 09/21/2014 N o longer Active Immunizations No Immunization data Assessments Condition Codes Effectiv e Dates Chronic pain syndrome ICD-10: G89.4 ICD-9: 338.4 03/11/2018 shelter (current) use of anticoagulants ICD-10: Z79.01 ICD-9: [...] candidiasis ICD-10: B 37.89 ICD-9: 112.89 10/15/2016 Localized edema ICD-10: R60.0 ICD-9: 782.3 09/17/2016 Urinary tract infection, site not specified [...] neoplasm ICD-10: Z09 ICD-9: V67.59 10/11/2015 Other intermediate (current) drug therapy ICD-10: Z79.899 ICD-9: V58.69 [...] Visit Reason For Visit Effective Dates Notes medication follow up 03/11/2018 cellulitis 08/28/2017 medication [...] Item Item Code Result Date Comp Metabolic Feo338 NA 136 mEq/L 03/11/2018 Comp Metabolic Tlu266 K 4.3 mEq/L 03/11/2018 Comp Metabolic Wlb280 CL 101 mEq/L 03/11/2018 Comp Metabolic Fsz468 CO2 27.0 mEq/L 03/11/2018 Comp Metabolic Zty925 AN ION GAP 12 03/11/2018 Comp Metabolic Jxd938 GL UCOSE 87 mg/dL 03/11/2018 Comp Metabolic Tso401 Cr eat 1.0 mg/dL 03/11/2018 Comp Metabolic Auq297 eG FR 79 ml/min/1.73m2 03/11 Comp Metabolic Yat920 BUN 12 mg/dL 03/11/2018 Comp Metabolic Ckd530 B/ C Ratio 12.1 Ratio 03/11/2018 Comp Metabolic Cxc781 CA LCIUM 8.9 mg/dL 03/11/2018 Comp Metabolic Pmr763 AL K PHOS 106 U/L 03/11/2018 Comp Metabolic Nje557 T(SGOT) 16 U/L 03/11/2018 Comp Metabolic Mir682 AL T(SGPT) 11 U/L 03/11/2018 Comp Metabolic Zio316 BI LI T 0.4 mg/dL 03/11/2018 Comp Metabolic Xpg700 AL BUMIN 3.8 g/dL 03/11/2018 Comp Metabolic Eyy488 TP RO 6.5 g/dL 03/11/2018 Comp Metabolic Nbx185 GL OB 2.7 g/dL 03/11/2018 Comp Metabolic Lgm310 A/ G Ratio 1.4 Ratio 03/11/2018 Comp Metabolic Wkt204 Os mo 271 mOsmo 03/11/2018 Cbc With [...] 29.8 pg 03/11/2018 Cbc With Differential Ord2 Otero% 11.3 % 03/11/2018 Cbc With Differential Ord2 [...] 2.87 K/ul 03/11/2018 Cbc With Differential Ord2 Otero ABS# 1.1 K/ul 03/11/2018 Cbc With Differential Ord2 Eos ABS# 0.4 K/ul 03/11/2018 Cbc With Differential Ord2 Baso ABS# 0.0 K/ul 03/11/2018 Pt Bdj1188 PT 31.3 seconds 03/11/2018 Pt Tbk9821 INR 3.1 03/11/2018 Pt Qre2848 Low Intensity - 1.5-2.0 03/11/2018 Pt Hgu8635 Mod intensity - 2.0-3.0 03/11/2018 Pt Nbd0659 Hi intensity - 3.0-4.0 03/11/2018 Tsh Ord6 TSH (3rd IS) 2.01 uIU/mL 03/11/2018 Shiga Toxin 1 & 2 Eia Stool [id number] SHIGA TOXIN 1: NEGATIVE 04/12/2017 Shiga Toxin 1 & 2 Eia Stool [id number] SHIGA TOXIN 2: NEGATIVE 04/12/2017 Culture Stool [id number] STO OL CULTURE SEE NOTES 04/12/2017 Clostridium Diff Tox A/B Uol173 Cdiff Negative 04/09/2017 Pt Yrh1067 PT 64.8 seconds 01/10/2016 Pt Ngx3451 INR 8.6 01/10/2016 Pt Ocn4846 Low Intensity - 1.5-2.0 01/10/2016 Pt Muv1309 Mod intensity - 2.0-3.0 01/10/2016 Pt Xdz8716 Hi intensity - 3.0-4.0 01/10/2016 Pt Yrh5714 PT 32.1 seconds 11/01/2014 Pt Ksc0878 INR 3.2 11/01/2014 Pt Ykz0549 Low Intensity - 1.5-2.0 11/01/2014 Pt Dwu9451 Mod intensity - 2.0-3.0 11/01/2014 Pt Qif8545 Hi intensity - 3.0-4.0 11/01/2014 Pt Pdt9526 PT 30.2 seconds 10/03/2014 Pt Ykh6552 INR 3.0 10/03/2014 Pt Xzi6187 Low Intensity - 1.5-2.0 10/03/2014 Pt Yzm0067 Mod intensity - 2.0-3.0 10/03/2014 Pt Dhv8952 Hi intensity - 3.0-4.0 10/03/2014 D-Dimer D-DIMER 475 NG/ML 09/25/2014 D-Dimer COMMENT 09/25/2014 Magnesium Ord90 Mag 1.1 Result Verified By Repeat Analysis mg/dL 09/22/2014 Pt Niq5363 PT 32.0 seconds 09/22/2014 Pt Pfx3481 INR 3.2 09/22/2014 Pt Jau8291 Low Intensity - 1.5-2.0 09/22/2014 Pt Vpf4597 Mod intensity - 2.0-3.0 09/22/2014 Pt Hmh5232 Hi intensity - 3.0-4.0 09/22/2014 Comp Metabolic Jyd566 NA 137 mEq/L 09/22/2014 Comp Metabolic Ehl352 K 4.2 mEq/L 09/22/2014 Comp Metabolic Vks780 CL 102 mEq/L 09/22/2014 Comp Metabolic Xow427 CO2 25.0 mEq/L 09/22/2014 Comp Metabolic Voh322 AN ION GAP 14 09/22/2014 Comp Metabolic Tpf064 GL UCOSE 94 mg/dL 09/22/2014 Comp Metabolic Rfb469 Cr eat 0.8 mg/dL 09/22/2014 Comp Metabolic Hud450 eG FR 102 ml/min/1.73m2 09/06 Comp Metabolic Bmu237 BUN 15 mg/dL 09/22/2014 Comp Metabolic Dts545 B/ C Ratio 18.8 Ratio 09/22/2014 Comp Metabolic Ves242 CA LCIUM 9.4 mg/dL 09/22/2014 Comp Metabolic Fyh674 AL K PHOS 65 U/L 09/22/2014 Comp Metabolic Tpg679 T(SGOT) 15 U/L 09/22/2014 Comp Metabolic Yqc612 AL T(SGPT) 8 U/L 09/22/2014 Comp Metabolic Gwv436 BI LI T 0.4 mg/dL 09/22/2014 Comp Metabolic Geu470 AL BUMIN 4.0 g/dL 09/22/2014 Comp Metabolic Oul398 TP RO 6.8 g/dL 09/22/2014 Comp Metabolic Nfi563 GL OB 2.8 g/dL 09/22/2014 Comp Metabolic Uun042 A/ G Ratio 1.4 Ratio 09/22/2014 Comp Metabolic Cph701 Os mo 274 mOsmo 09/22/2014 C-Reactive Protein [...] Result Effective Dates Constitutional No recent illness 03/11/2018 Constitutional No [...] distress 11/25/2016 None Full Exam - General 1995 Constitutional general appearance Overall: well nourished 11/25/2016 None Full Exam - General 1994 Constitutional general appearance Assistive Device: wheelchair 11/25/2016 None Full Exam - General 1994 Eyes conjunctiva/eyelids Overall: conjunctiva clear 11/25/2016 None Full Exam - General 1995 Eyes conjunctiva/eyelids Overall: eyelids normal 11/25/2016 None [...] Exam - General 1995 Eyes conjunctiva/eyelids Overall: eyelids normal 10/15/2016 None [...] affect 12/25/2015 None Full Exam - General 1995 Constitutional general appearance Development: well developed 10/11/2015 [...] Procedure Codes Date THER/PROPH/DIAG INJ SC/IM CPT-4: 54293 08/28/2017 ROCEPHIN, PER 250 MG CPT-4: J0696 08/28/2017 TOBACCO-USE CASH POSTER 3-[address]: 210301095 CPT-4: G0436 01/27/2017 TOBACCO-USE CASH POSTER 3-[address]: 295339621 CPT-4: G0436 11/25/2016 TOBACCO-USE CASH POSTER 3-[address]: 064063457 CPT-4: G0436 10/15/2016 TOBACCO-USE CASH POSTER 3-[address]: 064509766 CPT-4: G0436 09/17/2016 THER/PROPH/DIAG INJ SC/IM CPT-4: 98722 01/07/2016 TRIAMCINOLONE ACET I [place] NOS CPT-4: J3301 01/07/2016 TRIAMCINOLONE ACET I [place] NOS CPT-4: J3301 09/21/2014 THER/PROPH/DIAG INJ SC/IM CPT-4: 16941 09/21/2014 Vital Signs Date Vital 03/11/2018 Blood Pressure 1: 134/82 Code: 8480-6 BMI: 32.8 Code: 29126-8 Heart Rate 1: 65 bpm Height: 5'3" SpO2: 96% Weight: 185 lbs 08/28/2017 Blood Pressure 1: 138/72 Code: 8480-6 Heart Rate 1: 80 bpm Height: SpO2: 98% Weight: 07/20/2017 Blood Pressure 1: 134/76 Code: 8480-6 BMI: 29.6 Code: 56466-2 Heart Rate 1: 82 bpm Height: 5'3" [...] 1: 128/78 Code: 8480-6 BMI: 33.3 Code: 88148-6 Heart Rate 1: 72 bpm Height: 5'3" SpO2: 97% Weight: 188 lbs 01/10/2016 Blood Pressure 1: 132/76 Code: 8480-6 BMI: 33.1 Code: 91473-2 Heart Rate 1: 72 bpm Height: 5'3" SpO2: 97% Weight: 187 lbs 12/25/2015 Blood Pressure 1: 154/82 Code: 8480-6 BMI: 33.1 Code: 00652-4 Heart Rate 1: 72 bpm Height: 5'3" SpO2: 97% Weight: 187 lbs 10/11/2015 Blood Pressure 1: 110/62 Code: 8480-6 BMI: 34.7 Code: 82883-7 Heart Rate 1: 70 bpm Height: 5'3" SpO2: 93% Weight: 196 lbs 08/24/2015 Blood Pressure 1: 132/62 Code: 8480-6 BMI: 35.3 Code: 09306-4 Heart Rate 1: 62 bpm Height: 5'3" SpO2: 93% Weight: 199 lbs 08/20/2015 Blood Pressure 1: 140/68 Code: 8480-6 BMI: 35.3 Code: 37061-4 Heart Rate 1: 74 bpm Height: 5'3" SpO2: 96% Weight: 199 lbs 12/28/2014 Blood Pressure 1: 130/72 Code: 8480-6 BMI: 33.1 Code: 18075-0 Heart Rate 1: 60 bpm Height: 5'3" SpO2: 97% Weight: 187 lbs 10/31/2014 Blood Pressure 1: 118/72 Code: 8480-6 BMI: 31.2 Code: 39486-0 Heart Rate 1: 58 bpm Height: 5'3" SpO2: 98% Weight: 176 lbs 10/02/2014 Blood Pressure 1: 138/74 Code: 8480-6 BMI: 30.6 Code: 05129-0 Heart Rate 1: 72 bpm Height: 5'3" Weight: 173 lbs 09/21/2014 Blood Pressure 1: 138/72 Code: 8480-6 BMI: 30.5 Code: 96302-4 Heart Rate 1: 60 bpm Height: 5'3" SpO2: 96% Weight: 172 lbs Functional Status No Functional Status data History of Present Illness Symptom Name Status Resu lt Effective Date Notes Location oral intake 03/11/2018 None Quality chronic [...] daily 12/25/2015 None Hospital Follow Up _ [facility]: diverticulitis 10/11/2015 None Hospital Follow Up [...] Encounters Encounter Performer Loca tion Codes Date 19411 EST. 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 PATIENT, LEVEL III Diagnosis: Cellulitis of left axilla[ICD10: L03.112] Diagnosis: Cellulitis of right axilla[ICD10: L03.111] [facility] CPT-4: 21479 08/28/2017 [id number] EST. 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 PATIENT, LEVEL IV Diagnosis: Generalized anxiety disorder[ICD10: F41.1] Diagnosis: Major depressive disorder, single episode, moderate[ICD10: F32.1] Diagnosis: Diarrhea, unspecified[ICD10: R19.7] Rox Alvarez MD, [facility] [facility] CPT-4: 87652 04/21/2017 40250 EST. PATIENT, LEVEL IV Diagnosis: Generalized anxiety disorder[ICD10: F41.1] Diagnosis: Major depressive disorder, single episode, moderate[ICD10: F32.1] Diagnosis: Nausea[ICD10: R11.0] Diagnosis: Diarrhea, unspecified[ICD10: R19.7] Rox Alvarez MD, [facility] CPT-4: 21509 04/07/2017 ([id number]) 47968 EST. P ATIENT, LEVEL IV Diagnosis: Essential (primary) hypertension[ICD10: I10] Diagnosis: Nausea[ICD10: R11.0] Diagnosis: Other fecal abnormalities[ICD10: R19.5] Diagnosis: Tobacco use[ICD10: Z72.0] Selena Alvarez MD, [facility] CPT-4: 18579 01/27/2017 ([id number]) 05244 EST. P ATIENT, LEVEL III Diagnosis: Essential (primary) hypertension[ICD10: I10] Diagnosis: Chronic obstructive pulmonary disease, unspecified[ICD10: J44.9] Diagnosis: Rash and other nonspecific skin eruption[ICD10: R21] Selena Alvarez MD, [facility] CPT-4: 96350 11/25/2016 ([id number]) 28797 EST. P ATIENT, LEVEL III Diagnosis: Other sites of candidiasis[ICD10: B37.89] Selena Alvarez MD, C CPT-4: 59917 10/15/2016 ([id number]) 07311 EST. P ATIENT, LEVEL IV Diagnosis: Essential (primary) hypertension[ICD10: I10] Diagnosis: Urinary tract infection, site not specified[ICD10: N39.0] Diagnosis: Localized edema[ICD10: R60.0] Selena Alavrez MD, [facility] CPT-4: 75819 09/17/2016 66648 EST. 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 PATIENT, LEVEL III Diagnosis: Other specified bacterial intestinal infections[ICD10: A04.8] Rox Alvarez MD [facility] CPT-4: 60962 04/16/2016 55268 EST. PATIENT, LEVEL II Diagnosis: Pain in right foot[ICD10: M79.671] Rox Alvarez MD [facility] CPT-4: 16939 01/21/2016 57476 EST. PATIENT, LEVEL III Diagnosis: Encounter for therapeutic drug level monitoring[ICD10: Z51.81] Diagnosis: Rash and other nonspecific skin eruption[ICD10: R21] Rox Alvarez MD [facility] CPT-4: 16007 01/10/2016 28103 EST. PATIENT, LEVEL III Diagnosis: Rash and other nonspecific skin eruption[ICD10: R21] Rox Alvarez MD, [facility] CPT-4: 58145 01/07/2016 ([id number]) Miscellaneou s no charge Diagnosis: Cutaneous abscess of left axilla[ICD10: L02.412] Rox Alvarez MD [facility] CPT-4: 51668 01/02/2016 ([id number]) Miscellaneou s no charge Diagnosis: Cutaneous abscess of left axilla[ICD10: L02.412] Rox Alvarez MD [facility] CPT-4: 87645 01/01/2016 ([id number]) Miscellaneou s no charge Diagnosis: Cutaneous abscess of left axilla[ICD10: L02.412] Rox Alvarez MD, [facility] CPT-4: 01785 12/31/2015 ([id number]) Patient adm itted to the hospital from clinic (NO CHARGE) Diagnosis: Cutaneous abscess of left axilla[ICD10: L02.412] Rox Alvarez MD, [facility] CPT-4: 62866I 12/25/2015 39387 EST. PATIENT, LEVEL III Diagnosis: Encounter for follow-up examination after completed treatment for conditions other than malignant neoplasm[ICD10: Z09] Diagnosis: Diverticulitis of intestine, part unspecified, without perforation or abscess with bleeding[ICD10: K57.93] Diagnosis: Cellulitis of left toe[ICD10: L03.032] Diagnosis: Other obesity due to excess calories[ICD10: E66.09] Diagnosis: Other intermediate (current) drug therapy[ICD10: Z79.899] Rox Alvarez MD, [facility] CPT-4: 64106 10/11/2015 ([id number]) Miscellaneou s no charge Diagnosis: Encounter for therapeutic drug level monitoring[ICD10: Z51.81] Diagnosis: Other acute osteomyelitis, left ankle and foot[ICD10: M86.172] [facility] CPT-4: 47339 08/24/2015 71323 EST. PATIENT, LEVEL IV Diagnosis: Cellulitis of left toe[ICD10: L03.032] [facility] CPT-4: 03270 08/20/2015 15218 EST. PATIENT, LEVEL III Diagnosis: Essential (primary) hypertension[ICD10: I10] Diagnosis: Peripheral vascular disease, unspecified[ICD10: I73.9] Diagnosis: Dermatitis, unspecified[ICD10: L30.9] [facility] CPT- 4: 88335 12/28/2014 ([id number]) 92028 EST. P ATIENT, LEVEL III Diagnosis: ESSENTIAL HYPERTENSION[ICD9: 401.9] Diagnosis: PAD (peripheral artery disease)[ICD9: 443.9] Diagnosis: Anticoagulated on Coumadin[ICD9: V58.83] [facility] CPT-4: 27933 10/31/2014 ([id number]) 00012 EST. P ATIENT, LEVEL III Diagnosis: PAD (peripheral artery disease)[ICD9: 443.9] Diagnosis: Anticoagulated on Coumadin[ICD9: V58.83] Diagnosis: SCLERITIS[ICD9: 379.00] Diagnosis: ESSENTIAL HYPERTENSION[ICD9: 401.9] [facility] CPT- 4: 15088 10/02/2014 ([id number]) OFFICE VISI T, [facility] - LEVEL 4 Diagnosis: GOUT[ICD9: 274.9] Diagnosis: COPD (chronic obstructive pulmonary disease)[ICD9: 496] Diagnosis: PAD (peripheral artery disease)[ICD9: 443.9] Diagnosis: ESSENTIAL HYPERTENSION[ICD9: 401.9] Selena Alvarez MD, [facility] CPT- 4: 17490 09/21/2014 Plan of Care Planned Activity Notes C odes Status Date Visit Plan: Chronic Pain Syndrome - pt [...] PT 03/11/2018 Appointment: Rox Luciano WPtel: [facility]4 [facility] (15 min) Moderate 03/11/2018 Patient Education: Patient Medication Summary Completed 03/11/2018 Appointment: Rox Luciano WPtel: [facility]1 [facility] (30 min) Complex 11/17/2017 Visit Plan: [...] discharge. 08/28/2017 Appointment: Rox Luciano WPtel: [facility]0 [facility] [place] (30 min) Complex 08/28/2017 Patient [...] ADLs independently. 07/20/2017 Appointment: Rox Luciano WPtel: [address] [place], [place] [address] (30 min) [facility] 07/20/2017 Patient Education: Patient Medication Summary Completed 07/20/2017 Referral: Stephanie Silva WPtel: Referral Initiated 05/04/2017 Care Plan: Referral Order SNOMED-CT : [id number] Pending 04/30/2017 Visit Plan: Chronic Depression and [...] pain. 04/21/2017 Appointment: Rox Luciano WPtel: [phone] [facility] (30 min) Complex 04/21/2017 Patient Education: Patient [...] pain. 04/07/2017 Appointment: Rox Luciano WPtel: [phone] [facility] (30 min) Complex 04/07/2017 Patient Education: Patient Medication Summary Completed 04/07/2017 Appointment: Selena Alvarez WPtel: [phone] [facility] (15 min) Moderate 02/26/2017 Visit [...] not improving. 01/27/2017 Appointment: Selena Alvarez WPtel: [facility]5 [facility] (15 min) Moderate 01/27/2017 Patient [...] with nystatin 11/25/2016 Appointment: Selena Alvarez WPtel: [address] [place], [place] [phone] (15 min) Moderate 11/25/2016 Appointment: Selena Alvarez WPtel: [address] [place], [place] [phone] (15 min) Moderate 11/25/2016 Patient Education: Patient [...] of over-medication. 10/15/2016 Appointment: Selena Alvarez WPtel: [facility]5 [facility] (15 min) Moderate 10/15/2016 Patient Education: Patient Medication Summary Completed 10/15/2016 Patient Education: Smoking and Tobacco Addiction Completed 10/15/2016 Appointment: Rox Luciano WPtel: [phone] [facility] (30 min) Complex 09/18/2016 Visit Plan: [...] mobility evaluation. 08/14/2016 Appointment: Rox Luciano WPtel: [facility]5 [facility] (30 min) Complex 08/14/2016 Patient Education: [...] stomach pain. 04/16/2016 [phone] ([facility] Moderate 04/16/2016 Patient Education: Patient Medication Summary Completed 04/16/2016 Patient Education: Smoking and Tobacco Addiction Completed 04/16/2016 Referral: Dr Arboleda Referral Completed 02/14/2016 Care Plan: Referral Order SNOMED-CT : [id number] Pending 01/29/2016 Visit Plan: Right foot pain [...] warmth, discharge. 01/10/2016 [facility]ment[phone] [place] ([facility] min) Complex 01/10/2016 Patient Education: Patient [...] further I&D. 12/25/2015 Appointment: Emy Westbrook WPtel[phone] (15 min) Moderate 12/25/2015 Patient Education: Patient [...] management. 10/11/2015 Appointment: Rox Luciano [facility]Ptel[facility] ([facility]) Complex 10/11/2015 Patient Education: Patient Medication Summary Completed 10/11/2015 Patient Education: Smoking and Tobacco Addiction Completed 10/11/2015 Patient Education: Obesity Completed 10/11/2015 Referral: Gavino Navarro they are g oing to call if they get him in before if not we will call Dr shook Initiated 09/27/2015 Appointment: Emy Westbrook WPtel: [phone] [phone] [place] (15 min) Moderate 08/24/2015 Patient Education: Patient Medication Summary Completed 08/24/2015 Patient Education: Smoking and Tobacco Addiction Completed 08/24/2015 Patient Education: Patient Medication Summary Completed 08/23/2015 Appointment: Emy Westbrook WPtel: [phone] [phone] (30 min) Complex 08/22/2015 Referral: [facility] WPtel: 1 [facility] Referral Initiated 08/22/2015 Visit Plan: Pt [...] Completed 12/28/2014 [facility]ment[phone] Follow up 12/20/2014 Visit Plan: [...] 09/21/2014 Care Plan: Referral Order SNOMED-CT : [id number] Ordered 09/21/2014 Appointment: Selena Alvarez WPtel: [phone] [place] [address] [place] (S) New Patient 09/20/2014 Referral: Martinez Wren WPtel: [phone] Referral Initiated Referral: Gavino Navarro Referral Initiated Referral: [facility] WPtel: [address] Referral Initiated Referral: Dr Arboleda Referral [...] monitor symptoms. check INR on thursday . Chronic Pain Syndr ome - pt [...] Left leg amputation - continue PT . Rash - pt states t hat [...] blood pressure readings at home. . Left Axilla absces s and cellulitis - Pt states that he went to [facility] for the abscess and they started [...] repacked and dressing applied. probiotics - [facility] [place] [facility] . Gastroenteritis - discussed need to stay [...] worsening of stomach upset or stomach pain. will refer to Dr. Edgar jordan will [...]
--- OUTSIDE RECORDS SUMMARY | 2019-08-20 18:27 | XMS REPORT | CCD ---
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 Name Role Phone PP Unavailable CCM Unavailable Summary Purpose Interface Exchange Insurance Providers Payer name Policy type / Coverage type Covered democrat ID Effective Begin Date Effective End Date [facility] Commercial Insurance [id number] 2017 Unknown Family history Father Diagnosis Age At Onset Hyperlipidemia Unknown Coronary Artery Disease Unknown Stroke Unknown Cancer Unknown Congestive heart failure Unknown Mother Diagnosis Age At Onset Hypertension Unknown kidney disease Unknown Cancer Unknown Stroke Unknown Hyperlipidemia Unknown Coronary Artery Disease Unknown Congestive heart failure Unknown Social History Social History Element Codes Description Effective Dates Tobacco history SNOMED CT: 167580416481995 Current some days smoker 09/21/2014 Allergies, Adverse [...] V67.59 ICD-10: Z09 Active 10/10/2015 Unknown Other usp (cur rent) drug therapy ICD-9: V58.69 ICD-10: [...] disorder ICD-9: 300.00 ICD-10: F41.1 04/21/2017 Active FDC (current) use of anticoagulants ICD-9: V58.61 [...] V67.59 ICD-10: Z09 10/10/2015 Active 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 [...] 7.5 mg-a cetaminophen 325 mg tablet RxNorm: 543829 1 Tablet(s) PO QID as needed 05/19/2018 06/17/2018 Active hydrocodone 7.5 mg-a cetaminophen 325 mg tablet RxNorm: 720026 1 Tablet(s) PO QID as needed 04/19/2018 05/18/2018 Inactive allopurinol 100 mg t ablet RxNorm: 758900 TAKE ONE TABLET BY MO [facility] DAILY 04/06/2018 03/01/2019 Ac tive hydrocodone 7.5 mg-a cetaminophen 325 mg tablet RxNorm: 311282 1 Tablet(s) PO QID as needed 03/11/2018 04/09/2018 Inactive potassium chloride E R 20 mEq tablet,extended release RxNorm: 606048 Tablet(s) TAKE ONE TABLET BY MOUTH DAILY WHEN TAKING FUROSEMIDE NEEDED 03/05/2018 08/31/2018 Active gabapentin 300 mg ca psule RxNorm: 177520 TAKE ONE CAPSULE BY M [facility] THREE TIMES A DAY 03/04/2018 02/26/2019 Ac tive hydrocodone 7.5 mg-a cetaminophen 325 mg tablet RxNorm: 782525 1 Tablet(s) PO QID as needed 02/18/2018 03/10/2018 Inactive hydrocodone 7.5 mg-a cetaminophen 325 mg tablet RxNorm: 336228 1 Tablet(s) PO QID as needed 01/19/2018 02/17/2018 Inactive hydrocodone 7.5 mg-a cetaminophen 325 mg tablet RxNorm: 398909 1 Tablet(s) PO QID as needed 12/16/2017 01/14/2018 Inactive Pepcid 20 mg tablet RxNorm: 810449 Tablet(s) TAKE ONE TABLET BY MOUTH TWICE A DAY 12/08/2017 05/06/2018 Inactive hydrocodone 7.5 mg-a cetaminophen 325 mg tablet RxNorm: 021971 1 Tablet(s) PO QID as needed 11/18/2017 12/15/2017 Inactive gabapentin 300 mg ca psule RxNorm: 559042 Capsule(s) TAKE ONE C APSULE BY MOUTH THREE TIMES A DAY 11/11/2017 03/03/2018 Inactive gabapentin 300 mg ca psule RxNorm: 358875 TAKE ONE CAPSULE BY M [facility] THREE TIMES A DAY 11/10/2017 11/10/2017 Inactive hydrocodone 7.5 mg-a cetaminophen 325 mg tablet RxNorm: 200265 1 Tablet(s) PO QID as needed 10/19/2017 11/17/2017 Inactive hydrocodone 7.5 mg-a cetaminophen 325 mg tablet RxNorm: 420122 1 Tablet(s) PO QID as needed 09/16/2017 10/15/2017 Inactive doxycycline hyclate 100 mg capsule RxNorm: 4071182 1 Capsule(s) PO BID 08/28/2017 09/06/2017 In active hydrocodone 7.5 mg-a cetaminophen 325 mg tablet RxNorm: 519916 1 Tablet(s) PO QID as needed 08/21/2017 09/15/2017 Inactive Lexapro 10 mg tablet RxNorm: 572645 TAKE ONE TABLET BY MOUTH AT BEDTIME 08/02/2017 07/27/2018 Ac tive Zyrtec 10 mg tablet RxNorm: 4111133 1 Tablet(s) PO daily 07/20/2017 11/16/2017 Inactive hydrocodone 7.5 mg-a cetaminophen 325 mg tablet RxNorm: 402184 1 Tablet(s) PO QID as needed 07/20/2017 09/15/2017 Inactive furosemide 40 mg tablet RxNorm: 086415 Tablet(s) TAKE ONE TABLET BY MOUTH DAILY NEEDED FOR SWELLING 07/08/2017 01/03/2018 Inactive Pepcid 20 mg tablet RxNorm: 024341 TAKE ONE TABLET BY MOUTH TWICE A DAY 06/29/2017 11/25/2017 In active gabapentin 300 mg ca psule RxNorm: 975013 TAKE ONE CAPSULE BY M [facility] THREE TIMES A DAY 06/29/2017 10/26/2017 Inactive hydrocodone 7.5 mg-a cetaminophen 325 mg tablet RxNorm: 667832 1 Tablet(s) PO QID as needed 06/18/2017 07/17/2017 Inactive hydrocodone 7.5 mg-a cetaminophen 325 mg tablet RxNorm: 394371 1 Tablet(s) PO QID as needed 05/18/2017 06/16/2017 Inactive hydrocodone 7.5 mg-a cetaminophen 325 mg tablet RxNorm: 760230 1 Tablet(s) PO QID as needed 04/21/2017 05/17/2017 Inactive hyoscyamine 0.125 mg sublingual tablet RxNorm: 0600904 1 Tablet(s) SL TID a s needed 04/21/2017 04/25/2017 In active Lexapro 10 mg tablet RxNorm: 102287 1 Tablet(s) PO QHS 04/21/2017 07/19/2017 Inactive Flagyl 500 mg tablet RxNorm: 408791 1 Tablet(s) PO TID 04/07/2017 04/16/2017 Inactive Lexapro 10 mg tablet RxNorm: 857040 1 Tablet(s) PO QHS 04/07/2017 04/20/2017 Inactive hydrocodone 7.5 mg-a cetaminophen 325 mg tablet RxNorm: 929785 1 Tablet(s) PO QID as needed 03/24/2017 04/20/2017 Inactive allopurinol 100 mg t ablet RxNorm: 765088 TAKE ONE TABLET BY MO [facility] DAILY 03/10/2017 03/04/2018 In active hydrocodone 7.5 mg-a cetaminophen 325 mg tablet RxNorm: 809017 1 Tablet(s) PO QID as needed 02/11/2017 03/12/2017 Inactive gabapentin 300 mg ca psule RxNorm: 696219 TAKE ONE CAPSULE BY M OUT THREE TIMES A DAY 02/02/2017 06/28/2017 Inactive Zofran ODT 4 mg disi ntegrating tablet RxNorm: 570704 1 Tablet(s) PO QID as needed nausea and vomitting 01/27/2017 No Stop Date Active hydrocodone 7.5 mg-a cetaminophen 325 mg tablet RxNorm: 511145 1 Tablet(s) PO QID as needed 01/13/2017 02/10/2017 Inactive potassium chloride E R 20 mEq tablet,extended release RxNorm: 892472 TAKE ONE TABLET BY MOUTH DAILY WHEN TAKING FUROSEMIDE NEEDED 01/12/2017 07/10/2017 Inactive furosemide 40 mg tablet RxNorm: 313194 TAKE ONE TABLET BY MOUTH DAILY NEEDED FOR SWELLING 01/12/2017 07/09/2017 Inactive promethazine 25 mg t ablet RxNorm: 184336 TAKE ONE TABLET BY MO [facility] THREE TIMES A DAY NEEDED FOR NAUSEA AND VOMITING 01/12/2017 01/31/2017 Inactive promethazine 25 mg t ablet RxNorm: 267369 1 Tablet(s) PO TID as needed nausea and vomitting 01/06/2017 01/11/2017 Inactive Lomotil 2.5 mg-0.025 mg tablet RxNorm: 5553354 1-2 Tablet(s) PO BID as needed diarrhea 01/06/2017 01/05/2017 Inactive Lomotil 2.5 mg-0.025 mg tablet RxNorm: 9359644 1-2 Tablet(s) PO BID as needed diarrhea 01/06/2017 01/07/2017 Inactive Pepcid 20 mg tablet RxNorm: 632955 1 Tablet(s) PO BID 12/19/2016 06/16/2017 Inactive Pepcid 20 mg tablet RxNorm: 405154 1 Tablet(s) PO BID 12/16/2016 12/18/2016 Inactive hydrocodone 7.5 mg-a cetaminophen 325 mg tablet RxNorm: 887107 1 Tablet(s) PO QID as needed 12/16/2016 01/12/2017 Inactive hydrocodone 7.5 mg-a cetaminophen 325 mg tablet RxNorm: 865408 1 Tablet(s) PO QID as needed 11/18/2016 12/15/2016 Inactive allopurinol 100 mg t ablet RxNorm: 509589 TAKE ONE TABLET BY MO [facility] DAILY 10/29/2016 02/25/2017 In active hydrocodone 7.5 mg-a cetaminophen 325 mg tablet RxNorm: 860857 1 Tablet(s) PO QID as needed 10/15/2016 11/13/2016 Inactive nystatin 100,000 uni t/gram topical cream RxNorm: 377033 1 Gram(s) TOP QID 10/15/2016 11/25/2016 In active nystatin 100,000 uni t/gram topical powder RxNorm: 870227 1 Gram(s) TOP TID TO GROIN OR AFFECTED AREA 10/14/2016 No Stop Date Active hydrocodone 7.5 mg-a cetaminophen 325 mg tablet RxNorm: 558657 1 Tablet(s) PO QID as needed 09/17/2016 10/14/2016 Inactive furosemide 40 mg tablet RxNorm: 877617 1 Tablet(s) PO daily as needed swelling 09/17/2016 01/11/2017 In active potassium chloride E R 20 mEq tablet,extended release RxNorm: 947333 1 Tablet(s) PO daily as needed take when taking a lasix pill 09/17/2016 01/11/2017 Inactive Levaquin 500 mg tablet RxNorm: 757522 1 Tablet(s) PO daily 09/17/2016 09/21/2016 Inactive hydrocodone 7.5 mg-a cetaminophen 325 mg tablet RxNorm: 029942 1 Tablet(s) PO QID as needed 08/14/2016 09/12/2016 Inactive cyclobenzaprine 5 mg tablet RxNorm: 928163 1 Tablet(s) PO TID as needed 07/25/2016 07/29/2016 In active cyclobenzaprine 5 mg tablet RxNorm: 865508 1 Tablet(s) PO TID as needed 07/25/2016 07/24/2016 In active hydrocodone 7.5 mg-a cetaminophen 325 mg tablet RxNorm: 515168 1 Tablet(s) PO QID as needed 07/21/2016 08/13/2016 Inactive warfarin 1 mg tablet RxNorm: 384582 TAKE ONE TABLET BY MOUTH EVERY EVENING 06/26/2016 08/04/2016 In active hydrocodone 7.5 mg-a cetaminophen 325 mg tablet RxNorm: 072463 1 Tablet(s) PO QID as needed 06/24/2016 07/20/2016 Inactive hydrocodone 5 mg-yanira taminophen 325 mg tablet RxNorm: 275472 1 Tablet(s) PO Q6 as needed for pain 06/09/2016 06/10/2016 Inactive warfarin 1 mg tablet RxNorm: 234818 TAKE ONE TABLET BY MOUTH EVERY EVENING 06/02/2016 06/21/2016 In active allopurinol 100 mg t ablet RxNorm: 491663 TAKE ONE TABLET BY MO [facility] DAILY 05/21/2016 10/17/2016 In active hydrocodone 7.5 mg-a cetaminophen 325 mg tablet RxNorm: 215115 1 Tablet(s) PO QID as needed 05/09/2016 06/07/2016 Inactive gabapentin 300 mg ca psule RxNorm: 706781 Capsule(s) TAKE ONE C APSULE BY MOUTH THREE TIMES A DAY 04/25/2016 11/09/2017 Inactive promethazine 25 mg t ablet RxNorm: 196142 TAKE ONE TABLET BY MO [facility] THREE TIMES A DAY NEEDED 2016 05/01/2016 Inactive warfarin 1 mg tablet RxNorm: 789074 TAKE ONE TABLET BY MOUTH EVERY EVENING 2016 05/31/2016 In active promethazine 25 mg t ablet RxNorm: 678151 1 Tablet(s) PO TID as needed 04/16/2016 04/21/2016 In active warfarin 1 mg tablet RxNorm: 749157 TAKE ONE TABLET BY MOUTH EVERY EVENING 02/13/2016 04/12/2016 In active magnesium oxide 400 mg tablet RxNorm: 648027 TAKE ONE TABLET BY [facility] TWICE A DAY 02/07/2016 01/01/2017 In active hydrocodone 5 mg-yanira taminophen 325 mg tablet RxNorm: 515707 1 Tablet(s) PO Q6 as needed for pain 01/21/2016 02/19/2016 Inactive warfarin 1 mg tablet RxNorm: 177323 TAKE ONE TABLET BY MOUTH EVERY EVENING 01/17/2016 02/05/2016 In active gabapentin 300 mg ca psule RxNorm: 863196 Capsule(s) TAKE ONE C APSULE BY MOUTH THREE TIMES A DAY 01/11/2016 04/24/2016 Inactive prednisone 10 mg tablet RxNorm: 366862 Tablet(s) PO UD 01/10/2016 03/08/2018 Inactive 60mg x2 days, then 50mg x2 days, then 40mg x2 days, 30mg x2 days, 20mg x2 days, 10mg x2days, 5mg every other day x 2 doses Kenalog 40 mg/mL cassius pension for injection RxNorm: 2060581 Milliliter(s) Inj 01/07/2016 01/07/2016 In active warfarin 1 mg tablet RxNorm: 881215 TAKE ONE TABLET BY MOUTH EVERY EVENING 01/01/2016 01/16/2016 In active hydrocodone 5 mg-yanira taminophen 325 mg tablet RxNorm: 560089 1 Tablet(s) PO Q6 as needed for pain 01/01/2016 01/15/2016 Inactive gabapentin 300 mg ca psule RxNorm: 019216 TAKE ONE CAPSULE BY M [facility] THREE TIMES A DAY 12/12/2015 01/10/2016 Inactive warfarin 5 mg tablet RxNorm: 524604 1 Tablet(s) PO daily 12/05/2015 No Stop Date Active warfarin 1 mg tablet RxNorm: 901982 TAKE ONE TABLET BY MOUTH EVERY EVENING 11/13/2015 12/22/2015 In active hydrocodone 5 mg-yanira taminophen 325 mg tablet RxNorm: 613171 1 Tablet(s) PO Q6 as needed for pain 10/26/2015 11/09/2015 Inactive allopurinol 100 mg t ablet RxNorm: 831793 1 Tablet(s) PO daily TAKE ONE TABLET BY MOUTH DAILY 10/18/2015 04/14/2016 Inactive hydrocodone 5 mg-yanira taminophen 325 mg tablet RxNorm: 427603 1 Tablet(s) PO Q6 as needed for pain 09/26/2015 10/10/2015 Inactive gabapentin 300 mg ca psule RxNorm: 468318 TAKE ONE CAPSULE BY M [facility] THREE TIMES A DAY 09/14/2015 12/11/2015 Inactive warfarin 1 mg tablet RxNorm: 291008 1 Tablet(s) PO QPM 09/14/2015 11/12/2015 Inactive hydrocodone 5 mg-yanira taminophen 325 mg tablet RxNorm: 558853 1 Tablet(s) PO Q6 as needed for pain 09/12/2015 09/25/2015 Inactive hydrocodone 5 mg-yanira taminophen 325 mg tablet RxNorm: 294468 1 Tablet(s) PO Q6 as needed for pain 08/22/2015 09/05/2015 Inactive Bactrim DS 800 mg-16 0 mg tablet RxNorm: 238661 1 Tablet(s) PO BID 08/20/2015 09/02/2015 Inactive magnesium oxide 400 mg tablet RxNorm: 564760 TAKE ONE TABLET BY [facility] TWICE A DAY 01/20/2015 01/14/2016 In active gabapentin 300 mg ca psule RxNorm: 007533 TAKE ONE CAPSULE BY [facility] THREE TIMES A DAY 01/20/2015 05/19/2015 Inactive magnesium oxide 400 mg tablet RxNorm: 686060 1 Tablet(s) PO BID 01/17/2015 05/16/2015 Inactive gabapentin 300 mg ca psule RxNorm: 360133 1 Capsule(s) PO TID 01/17/2015 05/16/2015 Inactive allopurinol 100 mg t ablet RxNorm: 342755 TAKE ONE TABLET BY [facility] DAILY 10/18/2014 10/12/2015 In active Kenalog 40 mg/mL cassius pension for injection RxNorm: 7874458 1 Milliliter(s) Inj 09/21/2014 09/21/2014 In active allopurinol 100 mg t ablet RxNorm: 675846 1 Tablet(s) PO daily 09/21/2014 10/17/2014 Inactive gabapentin 300 mg ca psule RxNorm: 066082 1 Capsule(s) PO TID 09/12/2014 01/09/2015 Inactive gabapentin 300 mg ca psule RxNorm: 597896 1 Capsule(s) PO TID 09/12/2014 09/11/2014 Inactive magnesium oxide 400 mg tablet RxNorm: 861130 1 Tablet(s) PO BID 09/12/2014 01/09/2015 Inactive magnesium oxide 400 mg tablet RxNorm: 226639 1 Tablet(s) PO BID 09/12/2014 09/11/2014 Inactive lisinopril 5 mg tablet RxNorm: 018616 1 Tablet(s) PO daily No Start Date Active atorvastatin oral RxNorm: 08842 oral No Start Date Active Coreg 6.25 mg tablet RxNorm: 447891 1 Tablet(s) PO BID No Start Date Active Combivent Respimat 2 0 mcg-100 mcg/actuation solution for inhalation RxNorm: 3221801 1 Puff(s) INH as needed No Start Date Active Ventolin Refill 90 m cg/actuation aerosol inhaler RxNorm: 215806 2 INH as needed No Start Date Active Centrum Silver Women oral RxNorm: [address] art Date Active aspirin 81 mg capsul e,delayed release RxNorm: 924778 1 Capsule(s) PO daily No Start Date Active nystatin 100,000 uni t/gram topical powder RxNorm: 074058 1 Gram(s) TOP TID No Start Date 10/13/2016 Inactive warfarin 1 mg tablet RxNorm: 658986 oral No Start Date 09/13/2015 Inactive Pepcid 20 mg tablet RxNorm: 922073 1 Tablet(s) PO BID No Start Date 12/15/2016 Inactive Protonix 40 mg table t,delayed release RxNorm: 276871 1 Tablet(s) PO daily No Start Date 09/16/2016 Inactive warfarin 5 mg tablet RxNorm: 490891 1 Tablet(s) PO daily 1.5 tabs on Thu No Start Date 12/04/2015 Inactive minocycline 50 mg ca psule RxNorm: 059033 1 Capsule(s) PO BID o rdered by Dr. 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: 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.01 [...] neoplasm ICD-10: Z09 ICD-9: V67.59 10/11/2015 Other usp (current) drug therapy ICD-10: Z79.899 ICD-9: V58.69 [...] Item Item Code Result Date Comp Metabolic Tfl989 NA 136 mEq/L 03/11/2018 Comp Metabolic Osd589 K 4.3 mEq/L 03/11/2018 Comp Metabolic Lna151 CL 101 mEq/L 03/11/2018 Comp Metabolic Wak260 CO2 27.0 mEq/L 03/11/2018 Comp Metabolic Dju990 AN ION GAP 12 03/11/2018 Comp Metabolic Fbn872 GL UCOSE 87 mg/dL 03/11/2018 Comp Metabolic Drg121 Cr eat 1.0 mg/dL 03/11/2018 Comp Metabolic Dpo762 eG FR 79 ml/min/1.73m2 03/11 Comp Metabolic Quz241 BUN 12 mg/dL 03/11/2018 Comp Metabolic Jfr018 B/ C Ratio 12.1 Ratio 03/11/2018 Comp Metabolic Yoa075 CA LCIUM 8.9 mg/dL 03/11/2018 Comp Metabolic Wor367 AL K PHOS 106 U/L 03/11/2018 Comp Metabolic Lvi823 T(SGOT) 16 U/L 03/11/2018 Comp Metabolic Ckh971 AL T(SGPT) 11 U/L 03/11/2018 Comp Metabolic Uvf044 BI LI T 0.4 mg/dL 03/11/2018 Comp Metabolic Jdz790 AL BUMIN 3.8 g/dL 03/11/2018 Comp Metabolic Anz213 TP RO 6.5 g/dL 03/11/2018 Comp Metabolic Pso990 GL OB 2.7 g/dL 03/11/2018 Comp Metabolic Dgg364 A/ G Ratio 1.4 Ratio 03/11/2018 Comp Metabolic Wzn157 Os mo 271 mOsmo 03/11/2018 Cbc With [...] 29.8 pg 03/11/2018 Cbc With Differential Ord2 [place]% 11.3 % 03/11/2018 Cbc With Differential Ord2 [...] 2.87 K/ul 03/11/2018 Cbc With Differential Ord2 [place] ABS# 1.1 K/ul 03/11/2018 Cbc With Differential Ord2 Eos ABS# 0.4 K/ul 03/11/2018 Cbc With Differential Ord2 Baso ABS# 0.0 K/ul 03/11/2018 Pt Rps9618 PT 31.3 seconds 03/11/2018 Pt Xqm6645 INR 3.1 03/11/2018 Pt Buh9851 Low Intensity - 1.5-2.0 03/11/2018 Pt Jyr3184 Mod intensity - 2.0-3.0 03/11/2018 Pt Rbz5498 Hi intensity - 3.0-4.0 03/11/2018 Tsh Ord6 TSH (3rd IS) 2.01 uIU/mL 03/11/2018 Shiga Toxin 1 & 2 Eia Stool [id number] SHIGA TOXIN 1: NEGATIVE 04/12/2017 Shiga Toxin 1 & 2 Eia Stool [id number] SHIGA TOXIN 2: NEGATIVE 04/12/2017 Culture Stool [id number] STO OL CULTURE SEE NOTES 04/12/2017 Clostridium Diff Tox A/B Uup859 Cdiff Negative 04/09/2017 Pt Kjt4658 PT 64.8 seconds 01/10/2016 Pt Yny4855 INR 8.6 01/10/2016 Pt Ylo4731 Low Intensity - 1.5-2.0 01/10/2016 Pt Xnh2189 Mod intensity - 2.0-3.0 01/10/2016 Pt Vai4931 Hi intensity - 3.0-4.0 01/10/2016 Pt Osm0759 PT 32.1 seconds 11/01/2014 Pt Gpm9714 INR 3.2 11/01/2014 Pt Irn3275 Low Intensity - 1.5-2.0 11/01/2014 Pt Tly5895 Mod intensity - 2.0-3.0 11/01/2014 Pt Xro3290 Hi intensity - 3.0-4.0 11/01/2014 Pt Qwu5871 PT 30.2 seconds 10/03/2014 Pt Eeq3628 INR 3.0 10/03/2014 Pt Xfo2132 Low Intensity - 1.5-2.0 10/03/2014 Pt Doa7859 Mod intensity - 2.0-3.0 10/03/2014 Pt Ifd9222 Hi intensity - 3.0-4.0 10/03/2014 D-Dimer D-DIMER 475 NG/ML 09/25/2014 D-Dimer COMMENT 09/25/2014 Magnesium Ord90 Mag 1.1 Result Verified By Repeat Analysis mg/dL 09/22/2014 Pt Hrs8167 PT 32.0 seconds 09/22/2014 Pt Qgv9039 INR 3.2 09/22/2014 Pt Zzy7808 Low Intensity - 1.5-2.0 09/22/2014 Pt Cac6512 Mod intensity - 2.0-3.0 09/22/2014 Pt Cri9788 Hi intensity - 3.0-4.0 09/22/2014 Comp Metabolic Elf349 NA 137 mEq/L 09/22/2014 Comp Metabolic Hga745 K 4.2 mEq/L 09/22/2014 Comp Metabolic Dks837 CL 102 mEq/L 09/22/2014 Comp Metabolic Xad188 CO2 25.0 mEq/L 09/22/2014 Comp Metabolic Qvt101 AN ION GAP 14 09/22/2014 Comp Metabolic Eun124 GL UCOSE 94 mg/dL 09/22/2014 Comp Metabolic Gua086 Cr eat 0.8 mg/dL 09/22/2014 Comp Metabolic Bvx722 eG FR 102 ml/min/1.73m2 09/06 Comp Metabolic Tjy788 BUN 15 mg/dL 09/22/2014 Comp Metabolic Tso277 B/ C Ratio 18.8 Ratio 09/22/2014 Comp Metabolic Sef193 CA LCIUM 9.4 mg/dL 09/22/2014 Comp Metabolic Mxy281 AL K PHOS 65 U/L 09/22/2014 Comp Metabolic Uni960 T(SGOT) 15 U/L 09/22/2014 Comp Metabolic Zku719 AL T(SGPT) 8 U/L 09/22/2014 Comp Metabolic Xsi634 BI LI T 0.4 mg/dL 09/22/2014 Comp Metabolic Mix348 AL BUMIN 4.0 g/dL 09/22/2014 Comp Metabolic Pvi119 TP RO 6.8 g/dL 09/22/2014 Comp Metabolic Ekz859 GL OB 2.8 g/dL 09/22/2014 Comp Metabolic Vfl938 A/ G Ratio 1.4 Ratio 09/22/2014 Comp Metabolic Ewv185 Os mo 274 mOsmo 09/22/2014 C-Reactive Protein [...] wheelchair 11/25/2016 None Full Exam - General 1995 Eyes conjunctiva/eyelids Overall: conjunctiva clear 11/25/2016 None Full Exam - General 1995 Eyes conjunctiva/eyelids Overall: eyelids normal 11/25/2016 None Full Exam - General 1995 Ears/Nose/Throat lips/teeth/gingiva Overall: benign lips 11/25/2016 None [...] bilaterally 10/15/2016 None Full Exam - General 1995 Respiratory respiratory effort/rhythm Overall: no retractions 10/15/2016 [...] Procedure Codes Date THER/PROPH/DIAG INJ SC/IM CPT-4: 31282 08/28/2017 ROCEPHIN, PER 250 MG CPT-4: J0696 08/28/2017 TOBACCO-USE CLINICAL PSYCHOLOGIST LICENSED 3-[address]: 358717497 CPT-4: G0436 01/27/2017 TOBACCO-USE CLINICAL PSYCHOLOGIST LICENSED 3-[address]: 415720255 CPT-4: G0436 11/25/2016 TOBACCO-USE CLINICAL PSYCHOLOGIST LICENSED 3-[address]: 117999241 CPT-4: G0436 10/15/2016 TOBACCO-USE CLINICAL PSYCHOLOGIST LICENSED 3-[address]: 466204827 CPT-4: G0436 09/17/2016 THER/PROPH/DIAG INJ SC/IM CPT-4: 02369 01/07/2016 TRIAMCINOLONE ACET I [place] NOS CPT-4: J3301 01/07/2016 TRIAMCINOLONE ACET I [place] NOS CPT-4: J3301 09/21/2014 THER/PROPH/DIAG INJ SC/IM CPT-4: 85950 09/21/2014 Vital Signs Date Vital 03/11/2018 Blood Pressure 1: 134/82 Code: 8480-6 BMI: 32.8 Code: 29113-8 Heart Rate 1: 65 bpm Height: 5'3" SpO2: 96% Weight: 185 lbs 08/28/2017 Blood Pressure 1: 138/72 Code: 8480-6 Heart Rate 1: 80 bpm Height: SpO2: 98% Weight: 07/20/2017 Blood Pressure 1: 134/76 Code: 8480-6 BMI: 29.6 Code: 14626-9 Heart Rate 1: 82 bpm Height: 5'3" [...] 1: 128/78 Code: 8480-6 BMI: 33.3 Code: 86003-4 Heart Rate 1: 72 bpm Height: 5'3" SpO2: 97% Weight: 188 lbs 01/10/2016 Blood Pressure 1: 132/76 Code: 8480-6 BMI: 33.1 Code: 80603-6 Heart Rate 1: 72 bpm Height: 5'3" SpO2: 97% Weight: 187 lbs 12/25/2015 Blood Pressure 1: 154/82 Code: 8480-6 BMI: 33.1 Code: 93319-8 Heart Rate 1: 72 bpm Height: 5'3" SpO2: 97% Weight: 187 lbs 10/11/2015 Blood Pressure 1: 110/62 Code: 8480-6 BMI: 34.7 Code: 67896-6 Heart Rate 1: 70 bpm Height: 5'3" SpO2: 93% Weight: 196 lbs 08/24/2015 Blood Pressure 1: 132/62 Code: 8480-6 BMI: 35.3 Code: 98272-5 Heart Rate 1: 62 bpm Height: 5'3" SpO2: 93% Weight: 199 lbs 08/20/2015 Blood Pressure 1: 140/68 Code: 8480-6 BMI: 35.3 Code: 98900-2 Heart Rate 1: 74 bpm Height: 5'3" SpO2: 96% Weight: 199 lbs 12/28/2014 Blood Pressure 1: 130/72 Code: 8480-6 BMI: 33.1 Code: 87608-8 Heart Rate 1: 60 bpm Height: 5'3" SpO2: 97% Weight: 187 lbs 10/31/2014 Blood Pressure 1: 118/72 Code: 8480-6 BMI: 31.2 Code: 95501-9 Heart Rate 1: 58 bpm Height: 5'3" SpO2: 98% Weight: 176 lbs 10/02/2014 Blood Pressure 1: 138/74 Code: 8480-6 BMI: 30.6 Code: 40299-3 Heart Rate 1: 72 bpm Height: 5'3" Weight: 173 lbs 09/21/2014 Blood Pressure 1: 138/72 Code: 8480-6 BMI: 30.5 Code: 89309-4 Heart Rate 1: 60 bpm Height: 5'3" [...] daily 12/25/2015 None Hospital Follow Up _ [facility] er: diverticulitis 10/11/2015 None Hospital [...] Encounters Encounter Performer Loca tion Codes Date 09905 EST. 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 PATIENT, LEVEL III Diagnosis: Cellulitis of left axilla[ICD10: L03.112] Diagnosis: Cellulitis of right axilla[ICD10: L03.111] Rox Alvarez MD, [facility] CPT-4: 53063 08/28/2017 [id number] EST. 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 PATIENT, LEVEL IV Diagnosis: Generalized anxiety disorder[ICD10: F41.1] Diagnosis: Major depressive disorder, single episode, moderate[ICD10: F32.1] Diagnosis: Diarrhea, unspecified[ICD10: R19.7] Rox Alvarez MD, [facility] CPT-4: 19639 04/21/2017 [id number] EST. PATIENT, LEVEL IV Diagnosis: Generalized anxiety disorder[ICD10: F41.1] Diagnosis: Major depressive disorder, single episode, moderate[ICD10: F32.1] Diagnosis: Nausea[ICD10: R11.0] Diagnosis: Diarrhea, unspecified[ICD10: R19.7] Rox Alvarez MD, [facility] CPT-4: 57399 04/07/2017 ([id number]) [id number] EST. P ATIENT, LEVEL IV Diagnosis: Essential (primary) hypertension[ICD10: I10] Diagnosis: Nausea[ICD10: R11.0] Diagnosis: Other fecal abnormalities[ICD10: R19.5] Diagnosis: Tobacco use[ICD10: Z72.0] Selena Alvarez MD, [facility] CPT-4: 68271 01/27/2017 ([id number]) 48049 EST. P ATIENT, LEVEL III Diagnosis: Essential (primary) hypertension[ICD10: I10] Diagnosis: Chronic obstructive pulmonary disease, unspecified[ICD10: J44.9] Diagnosis: Rash and other nonspecific skin eruption[ICD10: R21] Selena Alvarez MD, [facility] CPT-4: 34077 11/25/2016 ([id number]) 16452 EST. P ATIENT, LEVEL III Diagnosis: Other sites of candidiasis[ICD10: B37.89] Selena Alvarez MD, C CPT-4: 15841 10/15/2016 ([id number]) 47092 EST. P ATIENT, LEVEL IV Diagnosis: Essential (primary) hypertension[ICD10: I10] Diagnosis: Urinary tract infection, site not specified[ICD10: N39.0] Diagnosis: Localized edema[ICD10: R60.0] Selena Alvarez MD, [facility] CPT-4: 40354 09/17/2016 36509 EST. 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 PATIENT, LEVEL III Diagnosis: Other specified bacterial intestinal infections[ICD10: A04.8] Rox Alvarez MD [facility] CPT-4: 74464 04/16/2016 38937 EST. PATIENT, LEVEL II Diagnosis: Pain in right foot[ICD10: M79.671] Rox Alvarez MD [facility] CPT-4: 07719 01/21/2016 92382 EST. PATIENT, LEVEL III Diagnosis: Encounter for therapeutic drug level monitoring[ICD10: Z51.81] Diagnosis: Rash and other nonspecific skin eruption[ICD10: R21] Rox Alvarez MD [facility] CPT-4: 07875 01/10/2016 84920 EST. PATIENT, LEVEL III Diagnosis: Rash and other nonspecific skin eruption[ICD10: R21] Rox Alvarez MD [facility] CPT-4: 48367 01/07/2016 ([id number]) Miscellaneou s no charge Diagnosis: Cutaneous abscess of left axilla[ICD10: L02.412] Rox Alvarez MD [facility] CPT-4: 78287 01/02/2016 ([id number]) Miscellaneou s no charge Diagnosis: Cutaneous abscess of left axilla[ICD10: L02.412] Rox Alvarez MD [facility] CPT-4: 32974 01/01/2016 ([id number]) Miscellaneou s no charge Diagnosis: Cutaneous abscess of left axilla[ICD10: L02.412] Rox Alvarez MD [facility] CPT-4: 30223 12/31/2015 ([id number]) Patient adm itted to the hospital from clinic (NO CHARGE) Diagnosis: Cutaneous abscess of left axilla[ICD10: L02.412] Rox Alvarez MD [facility] CPT-4: 16664Y 12/25/2015 70499 EST. 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 PATIENT, LEVEL IV Diagnosis: Cellulitis of left toe[ICD10: L03.032] Rox Alvarez MD, [facility] CPT-4: 81764 08/20/2015 39087 EST. PATIENT, LEVEL III Diagnosis: Essential (primary) hypertension[ICD10: I10] Diagnosis: Peripheral vascular disease, unspecified[ICD10: I73.9] Diagnosis: Dermatitis, unspecified[ICD10: L30.9] Rox Alvarez MD, [facility] CPT- 4: 90493 12/28/2014 ([id number]) 16200 EST. [facility]: ESSENTIAL HYPERTENSION[ICD9: 401.9] Diagnosis: PAD (peripheral artery disease)[ICD9: 443.9] Diagnosis: Anticoagulated on Coumadin[ICD9: V58.83] [facility] CPT-4: 70519 10/31/2014 ([id number]) 49017 EST. P ATIENT, LEVEL III Diagnosis: PAD (peripheral artery disease)[ICD9: 443.9] Diagnosis: Anticoagulated on Coumadin[ICD9: V58.83] Diagnosis: SCLERITIS[ICD9: 379.00] Diagnosis: ESSENTIAL HYPERTENSION[ICD9: 401.9] [facility] CPT- 4: 35200 10/02/2014 ([id number]) OFFICE [facility] - LEVEL 4 Diagnosis: GOUT[ICD9: 274.9] Diagnosis: COPD (chronic obstructive pulmonary disease)[ICD9: 496] Diagnosis: PAD (peripheral artery disease)[ICD9: 443.9] Diagnosis: ESSENTIAL HYPERTENSION[ICD9: 401.9] [facility] CPT- 4: 64523 09/21/2014 Plan of Care Planned Activity Notes [...] continue PT 03/11/2018 Appointment: Rox Luciano WPtel: [facility]8 [facility] (15 min) Moderate 03/11/2018 Patient Education: Patient Medication Summary Completed 03/11/2018 Appointment: Rox Luciano WPtel: [facility]0 [facility] (30 min) Complex 11/17/2017 Visit Plan: [...] warmth, discharge. 08/28/2017 Appointment: Rox Luciano WPtel: [facility]7 [facility] (30 min) Complex 08/28/2017 Patient Education: Patient [...] continue PT 07/20/2017 Appointment: Rox Luciano WPtel: [address] [place], [place] [address] (30 min) [facility] 07/20/2017 Patient Education: Patient Medication Summary Completed 07/20/2017 Referral: Stephanie Silva WPtel: Referral Initiated 05/04/2017 Care Plan: Referral Order SNOMED-CT : [id number] Pending 04/30/2017 Visit Plan: Chronic Depression and [...] pain. 04/21/2017 Appointment: Rox Luciano WPtel: [phone] [facility] (30 min) Complex 04/21/2017 Patient Education: [...] pain. 04/07/2017 Appointment: Rox Luciano WPtel: [phone] [facility] (30 min) Complex 04/07/2017 Patient Education: Patient Medication Summary Completed 04/07/2017 Appointment: Selena Alvarez WPtel: [phone] [facility] (15 min) Moderate 02/26/2017 Visit Plan: [...] not improving. 01/27/2017 Appointment: Selena Alvarez WPtel: [facility] (15 min) Moderate 01/27/2017 Patient Education: [...] with nystatin 11/25/2016 Appointment: Selena Alvarez WPtel: [facility] (15 min) Moderate 11/25/2016 Appointment: Selena Alvarez WPtel: [address] [place], [place] [id number] (15 min) Moderate 11/25/2016 Patient Education: [...] of over-medication. 10/15/2016 Appointment: Selena Alvarez WPtel: [facility]7 [facility] (15 min) Moderate 10/15/2016 Patient Education: Patient Medication Summary Completed 10/15/2016 Patient Education: Smoking and Tobacco Addiction Completed 10/15/2016 [facility]ment: [phone] ([facility] min) Complex 09/18/2016 Visit Plan: Hypertension [...] evaluation. 08/14/2016 Appointment: Rox Luciano [facility]Ptel[phone] (30 min) Complex 08/14/2016 Patient Education: Patient [...] stomach pain. 04/16/2016 Appointment: Rox Luciano WPtel: [facility] (15 min) Moderate 04/16/2016 Patient Education: Patient Medication Summary Completed 04/16/2016 Patient Education: Smoking and Tobacco Addiction Completed 04/16/2016 Referral: Dr Arboleda Referral Completed 02/14/2016 Care Plan: Referral Order SNOMED-CT : [id number] Pending 01/29/2016 Visit Plan: Right foot pain [...] warmth, discharge. 01/10/2016 Appointment: Rox Luciano [facility]Ptel[phone] [facility] (30 min) Complex 01/10/2016 Patient Education: Patient [...] antibiotics and further I&D. 12/25/2015 Appointment: Emy Wsetbrook WPtel: [address] [place], [place] [phone] (15 min) Moderate 12/25/2015 Patient Education: Patient [...] care management. 10/11/2015 Appointment: Rox Luciano WPtel: [facility] (30 min) Complex 10/11/2015 Patient Education: Patient Medication Summary Completed 10/11/2015 Patient Education: Smoking and Tobacco Addiction Completed 10/11/2015 Patient Education: Obesity Completed 10/11/2015 Referral: Gavino Navarro they are g oing to call if they get him in before if not we will call Dr shook Initiated 09/27/2015 Appointment: Emy Westbrook [facility]Ptel: [phone] [phone] (15 min) Moderate 08/24/2015 Patient Education: Patient Medication Summary Completed 08/24/2015 Patient Education: Smoking and Tobacco Addiction Completed 08/24/2015 Patient Education: Patient Medication Summary Completed 08/23/2015 Appointment: Pietro Emy WPtel: [phone] [phone] (30 min) Complex 08/22/2015 [facility] Referral Initiated 08/22/2015 Visit Plan: Pt [...] Hypertension Completed 12/28/2014 Appointment: [phone] Follow up 12/20/2014 Visit Plan: Hypertension [...] 09/21/2014 Care Plan: Referral Order SNOMED-CT : [id number] Ordered 09/21/2014 Appointment: Selena Alvarez WPtel: [phone] [facility] [place] ([place]) New Patient 09/20/2014 Referral: Martinez Wren WPtel: [phone] [place] [address] [place] Referral Initiated Referral: Gavino Navarro Referral Initiated Referral: [facility] WPtel: 1 [facility] Referral Initiated Referral: Dr Arboleda Referral Completed Referral: Stephanie Silva WPtel: Referral Initiated Instructions Comment . Chronic Pain Syndr ome - pt [...] leg amputation - continue PT . Left axilla absces s - packing [...] in blood pressure readings at home. . Rash - pt states t hat [...] - Pt states that he went to [facility] care for the abscess and they [...] check INR on thursday probiotics - culture [facility]. . Gastroenteritis - [...] of stomach upset or stomach pain. . Pt is here for a [...] patient is stable, monitor for acute changes. Will send steroid cr eam for arms. [...] change in blood pressure readings at home. will refer to Dr. Edgar jordan will [...] Rash of groin - continue with nystatin . Chronic Pain Syndr ome - pt [...]
[2019-08-20] MEDS ORDERED: IBUPROFEN TABLET 200 MG TAB PO ONE (18:28)
--- OUTSIDE RECORDS SUMMARY | 2019-08-20 18:29 | XMS REPORT | CCD ---
Author Author Bony Alvarez Organization Selena Alvarez MD, [facility] Address [address] [place] [address] Phone Care Team Providers Care Ad Operations Specialist Name Role Phone PP Unavailable CCM Unavailable Summary Purpose Interface Exchange Insurance Providers Payer name Policy type / Coverage type Covered constitution party ID Effective Begin Date Effective End Date [facility] Commercial Insurance [id number] 2017 Unknown Family history Father Diagnosis Age At Onset Hyperlipidemia Unknown Coronary Artery Disease Unknown Stroke Unknown Cancer Unknown Congestive heart failure Unknown Mother Diagnosis Age At Onset Hypertension Unknown kidney disease Unknown Cancer Unknown Stroke Unknown Hyperlipidemia Unknown Coronary Artery Disease Unknown Congestive heart failure Unknown Social History Social History Element Codes Description Effective Dates Tobacco history SNOMED CT: 225286833066441 Current some days smoker 09/21/2014 Allergies, Adverse [...] ICD-9: 300.00 ICD-10: F41.1 Active 04/21/2017 Unknown assisted (current) use of anticoagulants ICD-9: V58.61 ICD-10: [...] V67.59 ICD-10: Z09 Active 10/10/2015 Unknown Other group home (cur rent) drug therapy ICD-9: V58.69 ICD-10: [...] disorder ICD-9: 300.00 ICD-10: F41.1 04/21/2017 Active assisted (current) use of anticoagulants ICD-9: V58.61 ICD-10: [...] ICD-9: V67.59 ICD-10: Z09 10/10/2015 Active 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 ICD-9: V58.69 ICD-10: [...] 7.5 mg-a cetaminophen 325 mg tablet RxNorm: 841691 1 Tablet(s) PO QID as needed 04/19/2018 05/18/2018 Active allopurinol 100 mg t ablet RxNorm: 517679 TAKE ONE TABLET BY MO INH DAILY 04/06/2018 03/01/2019 Ac tive hydrocodone 7.5 mg-a cetaminophen 325 mg tablet RxNorm: 808940 1 Tablet(s) PO QID as needed 03/11/2018 04/09/2018 Inactive potassium chloride E R 20 mEq tablet,extended release RxNorm: 198525 Tablet(s) TAKE ONE TABLET BY MOUTH DAILY WHEN TAKING FUROSEMIDE NEEDED 03/05/2018 08/31/2018 Active gabapentin 300 mg ca psule RxNorm: 102043 TAKE ONE CAPSULE BY M [facility] THREE TIMES A DAY 03/04/2018 02/26/2019 Ac tive hydrocodone 7.5 mg-a cetaminophen 325 mg tablet RxNorm: 839110 1 Tablet(s) PO QID as needed 02/18/2018 03/10/2018 Inactive hydrocodone 7.5 mg-a cetaminophen 325 mg tablet RxNorm: 792614 1 Tablet(s) PO QID as needed 01/19/2018 02/17/2018 Inactive hydrocodone 7.5 mg-a cetaminophen 325 mg tablet RxNorm: 136814 1 Tablet(s) PO QID as needed 12/16/2017 01/14/2018 Inactive Pepcid 20 mg tablet RxNorm: 880136 Tablet(s) TAKE ONE TABLET BY MOUTH TWICE A DAY 12/08/2017 05/06/2018 Active hydrocodone 7.5 mg-a cetaminophen 325 mg tablet RxNorm: 214300 1 Tablet(s) PO QID as needed 11/18/2017 12/15/2017 Inactive gabapentin 300 mg ca psule RxNorm: 638993 Capsule(s) TAKE ONE C APSULE BY MOUTH THREE TIMES A DAY 11/11/2017 03/03/2018 Inactive gabapentin 300 mg ca psule RxNorm: 396810 TAKE ONE CAPSULE BY M OUTH THREE TIMES A DAY 11/10/2017 11/10/2017 Inactive hydrocodone 7.5 mg-a cetaminophen 325 mg tablet RxNorm: 341913 1 Tablet(s) PO QID as needed 10/19/2017 11/17/2017 Inactive hydrocodone 7.5 mg-a cetaminophen 325 mg tablet RxNorm: 406901 1 Tablet(s) PO QID as needed 09/16/2017 10/15/2017 Inactive doxycycline hyclate 100 mg capsule RxNorm: 9398391 1 Capsule(s) PO BID 08/28/2017 09/06/2017 In active hydrocodone 7.5 mg-a cetaminophen 325 mg tablet RxNorm: 693346 1 Tablet(s) PO QID as needed 08/21/2017 09/15/2017 Inactive Lexapro 10 mg tablet RxNorm: 230935 TAKE ONE TABLET BY MOUTH AT BEDTIME 08/02/2017 07/27/2018 Ac tive Zyrtec 10 mg tablet RxNorm: 1322018 1 Tablet(s) PO daily 07/20/2017 11/16/2017 Inactive hydrocodone 7.5 mg-a cetaminophen 325 mg tablet RxNorm: 603001 1 Tablet(s) PO QID as needed 07/20/2017 09/15/2017 Inactive furosemide 40 mg tablet RxNorm: 756141 Tablet(s) TAKE ONE TABLET BY MOUTH DAILY NEEDED FOR SWELLING 07/08/2017 01/03/2018 Inactive Pepcid 20 mg tablet RxNorm: 038795 TAKE ONE TABLET BY MOUTH TWICE A DAY 06/29/2017 11/25/2017 In active gabapentin 300 mg ca psule RxNorm: 109105 TAKE ONE CAPSULE BY M OUTH THREE TIMES A DAY 06/29/2017 10/26/2017 Inactive hydrocodone 7.5 mg-a cetaminophen 325 mg tablet RxNorm: 878493 1 Tablet(s) PO QID as needed 06/18/2017 07/17/2017 Inactive hydrocodone 7.5 mg-a cetaminophen 325 mg tablet RxNorm: 061695 1 Tablet(s) PO QID as needed 05/18/2017 06/16/2017 Inactive hydrocodone 7.5 mg-a cetaminophen 325 mg tablet RxNorm: 408911 1 Tablet(s) PO QID as needed 04/21/2017 05/17/2017 Inactive hyoscyamine 0.125 mg sublingual tablet RxNorm: 2841930 1 Tablet(s) SL TID a s needed 04/21/2017 04/25/2017 In active Lexapro 10 mg tablet RxNorm: 371456 1 Tablet(s) PO QHS 04/21/2017 07/19/2017 Inactive Flagyl 500 mg tablet RxNorm: 828915 1 Tablet(s) PO TID 04/07/2017 04/16/2017 Inactive Lexapro 10 mg tablet RxNorm: 841307 1 Tablet(s) PO QHS 04/07/2017 04/20/2017 Inactive hydrocodone 7.5 mg-a cetaminophen 325 mg tablet RxNorm: 715584 1 Tablet(s) PO QID as needed 03/24/2017 04/20/2017 Inactive allopurinol 100 mg t ablet RxNorm: 820839 TAKE ONE TABLET BY MO UTH DAILY 03/10/2017 03/04/2018 In active hydrocodone 7.5 mg-a cetaminophen 325 mg tablet RxNorm: 306379 1 Tablet(s) PO QID as needed 02/11/2017 03/12/2017 Inactive gabapentin 300 mg ca psule RxNorm: 521024 TAKE ONE CAPSULE BY M OUTH THREE TIMES A DAY 02/02/2017 06/28/2017 Inactive Zofran ODT 4 mg disi ntegrating tablet RxNorm: 281399 1 Tablet(s) PO QID as needed nausea and vomitting 01/27/2017 No Stop Date Active hydrocodone 7.5 mg-a cetaminophen 325 mg tablet RxNorm: 635753 1 Tablet(s) PO QID as needed 01/13/2017 02/10/2017 Inactive potassium chloride E R 20 mEq tablet,extended release RxNorm: 800525 TAKE ONE TABLET BY MOUTH DAILY WHEN TAKING FUROSEMIDE NEEDED 01/12/2017 07/10/2017 Inactive furosemide 40 mg tablet RxNorm: 311574 TAKE ONE TABLET BY MOUTH DAILY NEEDED FOR SWELLING 01/12/2017 07/09/2017 Inactive promethazine 25 mg t ablet RxNorm: 742937 TAKE ONE TABLET BY MO [facility] THREE TIMES A DAY NEEDED FOR NAUSEA AND VOMITING 01/12/2017 01/31/2017 Inactive promethazine 25 mg t ablet RxNorm: 379041 1 Tablet(s) PO TID as needed nausea and vomitting 01/06/2017 01/11/2017 Inactive Lomotil 2.5 mg-0.025 mg tablet RxNorm: 0100160 1-2 Tablet(s) PO BID as needed diarrhea 01/06/2017 01/05/2017 Inactive Lomotil 2.5 mg-0.025 mg tablet RxNorm: 9025831 1-2 Tablet(s) PO BID as needed diarrhea 01/06/2017 01/07/2017 Inactive Pepcid 20 mg tablet RxNorm: 178275 1 Tablet(s) PO BID 12/19/2016 06/16/2017 Inactive Pepcid 20 mg tablet RxNorm: 866837 1 Tablet(s) PO BID 12/16/2016 12/18/2016 Inactive hydrocodone 7.5 mg-a cetaminophen 325 mg tablet RxNorm: 475112 1 Tablet(s) PO QID as needed 12/16/2016 01/12/2017 Inactive hydrocodone 7.5 mg-a cetaminophen 325 mg tablet RxNorm: 679445 1 Tablet(s) PO QID as needed 11/18/2016 12/15/2016 Inactive allopurinol 100 mg t ablet RxNorm: 120183 TAKE ONE TABLET BY MO [place] DAILY 10/29/2016 02/25/2017 In active hydrocodone 7.5 mg-a cetaminophen 325 mg tablet RxNorm: 534422 1 Tablet(s) PO QID as needed 10/15/2016 11/13/2016 Inactive nystatin 100,000 uni t/gram topical cream RxNorm: 738435 1 Gram(s) TOP QID 10/15/2016 11/25/2016 In active nystatin 100,000 uni t/gram topical powder RxNorm: 536977 1 Gram(s) TOP TID TO GROIN OR AFFECTED AREA 10/14/2016 No Stop Date Active hydrocodone 7.5 mg-a cetaminophen 325 mg tablet RxNorm: 695598 1 Tablet(s) PO QID as needed 09/17/2016 10/14/2016 Inactive furosemide 40 mg tablet RxNorm: 711423 1 Tablet(s) PO daily as needed swelling 09/17/2016 01/11/2017 In active potassium chloride E R 20 mEq tablet,extended release RxNorm: 761387 1 Tablet(s) PO daily as needed take when taking a lasix pill 09/17/2016 01/11/2017 Inactive Levaquin 500 mg tablet RxNorm: 635147 1 Tablet(s) PO daily 09/17/2016 09/21/2016 Inactive hydrocodone 7.5 mg-a cetaminophen 325 mg tablet RxNorm: 805837 1 Tablet(s) PO QID as needed 08/14/2016 09/12/2016 Inactive cyclobenzaprine 5 mg tablet RxNorm: 475647 1 Tablet(s) PO TID as needed 07/25/2016 07/29/2016 In active cyclobenzaprine 5 mg tablet RxNorm: 079363 1 Tablet(s) PO TID as needed 07/25/2016 07/24/2016 In active hydrocodone 7.5 mg-a cetaminophen 325 mg tablet RxNorm: 254012 1 Tablet(s) PO QID as needed 07/21/2016 08/13/2016 Inactive warfarin 1 mg tablet RxNorm: 421667 TAKE ONE TABLET BY MOUTH EVERY EVENING 06/26/2016 08/04/2016 In active hydrocodone 7.5 mg-a cetaminophen 325 mg tablet RxNorm: 285577 1 Tablet(s) PO QID as needed 06/24/2016 07/20/2016 Inactive hydrocodone 5 mg-yanira taminophen 325 mg tablet RxNorm: 561068 1 Tablet(s) PO Q6 as needed for pain 06/09/2016 06/10/2016 Inactive warfarin 1 mg tablet RxNorm: 971815 TAKE ONE TABLET BY MOUTH EVERY EVENING 06/02/2016 06/21/2016 In active allopurinol 100 mg t ablet RxNorm: 258858 TAKE ONE TABLET BY MO UTH DAILY 05/21/2016 10/17/2016 In active hydrocodone 7.5 mg-a cetaminophen 325 mg tablet RxNorm: 547424 1 Tablet(s) PO QID as needed 05/09/2016 06/07/2016 Inactive gabapentin 300 mg ca psule RxNorm: 233059 Capsule(s) TAKE ONE C APSULE BY MOUTH THREE TIMES A DAY 04/25/2016 11/09/2017 Inactive promethazine 25 mg t ablet RxNorm: 297600 TAKE ONE TABLET BY MO UTH THREE TIMES A DAY NEEDED 2016 05/01/2016 Inactive warfarin 1 mg tablet RxNorm: 881763 TAKE ONE TABLET BY MOUTH EVERY EVENING 2016 05/31/2016 In active promethazine 25 mg t ablet RxNorm: 108185 1 Tablet(s) PO TID as needed 04/16/2016 04/21/2016 In active warfarin 1 mg tablet RxNorm: 605300 TAKE ONE TABLET BY MOUTH EVERY EVENING 02/13/2016 04/12/2016 In active magnesium oxide 400 mg tablet RxNorm: 677666 TAKE ONE TABLET BY MO UTH TWICE A DAY 02/07/2016 01/01/2017 In active hydrocodone 5 mg-yanira taminophen 325 mg tablet RxNorm: 874818 1 Tablet(s) PO Q6 as needed for pain 01/21/2016 02/19/2016 Inactive warfarin 1 mg tablet RxNorm: 568316 TAKE ONE TABLET BY MOUTH EVERY EVENING 01/17/2016 02/05/2016 In active gabapentin 300 mg ca psule RxNorm: 983709 Capsule(s) TAKE ONE C APSULE BY MOUTH THREE TIMES A DAY 01/11/2016 04/24/2016 Inactive prednisone 10 mg tablet RxNorm: 066287 Tablet(s) PO UD 01/10/2016 03/08/2018 Inactive 60mg x2 days, then 50mg x2 days, then 40mg x2 days, 30mg x2 days, 20mg x2 days, 10mg x2days, 5mg every other day x 2 doses Kenalog 40 mg/mL cassius pension for injection RxNorm: 0128669 Milliliter(s) Inj 01/07/2016 01/07/2016 In active warfarin 1 mg tablet RxNorm: 436161 TAKE ONE TABLET BY MOUTH EVERY EVENING 01/01/2016 01/16/2016 In active hydrocodone 5 mg-yanira taminophen 325 mg tablet RxNorm: 501358 1 Tablet(s) PO Q6 as needed for pain 01/01/2016 01/15/2016 Inactive gabapentin 300 mg ca psule RxNorm: 014235 TAKE ONE CAPSULE BY M OUTH THREE TIMES A DAY 12/12/2015 01/10/2016 Inactive warfarin 5 mg tablet RxNorm: 356258 1 Tablet(s) PO daily 12/05/2015 No Stop Date Active warfarin 1 mg tablet RxNorm: 140995 TAKE ONE TABLET BY MOUTH EVERY EVENING 11/13/2015 12/22/2015 In active hydrocodone 5 mg-yanira taminophen 325 mg tablet RxNorm: 842743 1 Tablet(s) PO Q6 as needed for pain 10/26/2015 11/09/2015 Inactive allopurinol 100 mg t ablet RxNorm: 793153 1 Tablet(s) PO daily TAKE ONE TABLET BY MOUTH DAILY 10/18/2015 04/14/2016 Inactive hydrocodone 5 mg-yanira taminophen 325 mg tablet RxNorm: 484686 1 Tablet(s) PO Q6 as needed for pain 09/26/2015 10/10/2015 Inactive gabapentin 300 mg ca psule RxNorm: 463040 TAKE ONE CAPSULE BY M OUTH THREE TIMES A DAY 09/14/2015 12/11/2015 Inactive warfarin 1 mg tablet RxNorm: 358380 1 Tablet(s) PO QPM 09/14/2015 11/12/2015 Inactive hydrocodone 5 mg-yanira taminophen 325 mg tablet RxNorm: 035008 1 Tablet(s) PO Q6 as needed for pain 09/12/2015 09/25/2015 Inactive hydrocodone 5 mg-yanira taminophen 325 mg tablet RxNorm: 906488 1 Tablet(s) PO Q6 as needed for pain 08/22/2015 09/05/2015 Inactive Bactrim DS 800 mg-16 0 mg tablet RxNorm: 285004 1 Tablet(s) PO BID 08/20/2015 09/02/2015 Inactive magnesium oxide 400 mg tablet RxNorm: 472883 TAKE ONE TABLET BY [facility] TWICE A DAY 01/20/2015 01/14/2016 In active gabapentin 300 mg ca psule RxNorm: 136690 TAKE ONE CAPSULE BY [facility] THREE TIMES A DAY 01/20/2015 05/19/2015 Inactive magnesium oxide 400 mg tablet RxNorm: 171640 1 Tablet(s) PO BID 01/17/2015 05/16/2015 Inactive gabapentin 300 mg ca psule RxNorm: 390496 1 Capsule(s) PO TID 01/17/2015 05/16/2015 Inactive allopurinol 100 mg t ablet RxNorm: 984299 TAKE ONE TABLET BY [facility] DAILY 10/18/2014 10/12/2015 In active Kenalog 40 mg/mL cassius pension for injection RxNorm: 0686157 1 Milliliter(s) Inj 09/21/2014 09/21/2014 In active allopurinol 100 mg t ablet RxNorm: 363610 1 Tablet(s) PO daily 09/21/2014 10/17/2014 Inactive gabapentin 300 mg ca psule RxNorm: 304973 1 Capsule(s) PO TID 09/12/2014 01/09/2015 Inactive gabapentin 300 mg ca psule RxNorm: 876190 1 Capsule(s) PO TID 09/12/2014 09/11/2014 Inactive magnesium oxide 400 mg tablet RxNorm: 664538 1 Tablet(s) PO BID 09/12/2014 01/09/2015 Inactive magnesium oxide 400 mg tablet RxNorm: 455706 1 Tablet(s) PO BID 09/12/2014 09/11/2014 Inactive lisinopril 5 mg tablet RxNorm: 470435 1 Tablet(s) PO daily No Start Date Active atorvastatin oral RxNorm: 74449 oral No Start Date Active Coreg 6.25 mg tablet RxNorm: 201423 1 Tablet(s) PO BID No Start Date Active Combivent Respimat 2 0 mcg-100 mcg/actuation solution for inhalation RxNorm: 1604332 1 Puff(s) INH as needed No Start Date Active Ventolin Refill 90 m cg/actuation aerosol inhaler RxNorm: 812465 2 INH as needed No Start Date Active Centrum Silver Women oral RxNorm: [address] art Date Active aspirin 81 mg capsul e,delayed release RxNorm: 993639 1 Capsule(s) PO daily No Start Date Active nystatin 100,000 uni t/gram topical powder RxNorm: 847129 1 Gram(s) TOP TID No Start Date 10/13/2016 Inactive warfarin 1 mg tablet RxNorm: 848026 oral No Start Date 09/13/2015 Inactive Pepcid 20 mg tablet RxNorm: 027489 1 Tablet(s) PO BID No Start Date 12/15/2016 Inactive Protonix 40 mg table t,delayed release RxNorm: 892033 1 Tablet(s) PO daily No Start Date 09/16/2016 Inactive warfarin 5 mg tablet RxNorm: 677573 1 Tablet(s) PO daily 1.5 tabs on Thu No Start Date 12/04/2015 Inactive minocycline 50 mg ca psule RxNorm: 950086 1 Capsule(s) PO BID o rdered by Dr. 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 ICD-9: V49.76 03/11/2018 Essential (primary) hypertension ICD -10: I10 ICD-9: 401.9 03/11/2018 assisted (current) use of anticoagulants ICD-10: Z79.01 ICD-9: V58.61 03/11/2018 Cellulitis of right axilla ICD-10: L 03.111 ICD-9: 682.3 08/28/2017 Cellulitis of left axilla ICD-10: L0 3.112 ICD-9: 682.3 08/28/2017 Generalized anxiety disorder ICD-10: F41.1 ICD-9: 300.00 07/20/2017 Major depressive disorder, single episode, moderate ICD-10: F32.1 ICD-9: 296.22 07/20/2017 Diarrhea, unspecified ICD-10: R19.7 ICD-9: 787.91 04/21/2017 Nausea ICD-10: R11.0 ICD-9: 787.02 04/07/2017 Tobacco use ICD-10: Z72.0 ICD-9: 305.1 01/27/2017 Other fecal abnormalities ICD-10: R1 9.5 ICD-9: 787.7 01/27/2017 Rash and other nonspecific skin eruption ICD-10: R21 ICD-9: 782.1 11/25/2016 Chronic obstructive pulmonary disease, unspecified ICD-10: J44.9 ICD-9: 496 11/25/2016 Other sites of candidiasis ICD-10: B [...] axilla ICD -10: L02.412 ICD-9: 682.3 01/02/2016 Encounter for follow-up examination afte r completed treatment for conditions other than malignant neoplasm ICD-10: Z09 ICD-9: V67.59 10/11/2015 Other obesity due to excess calories ICD-10: E66.09 ICD-9: 278.00 10/11/2015 Cellulitis of left toe ICD-10: L03.0 32 ICD-9: 681.10 10/11/2015 Other group home (current) drug therapy ICD-10: Z79.899 ICD-9: V58.69 10/11/2015 Diverticulitis of intestine, part unspec ified, without perforation or abscess with bleeding ICD-10: K57.93 ICD-9: 562.13 10/11/2015 Other acute osteomyelitis, left ankle and foot ICD-10: M86.172 ICD-9: 730.07 08/24/2015 Peripheral vascular disease, unspecified ICD-10: I73.9 ICD-9: 443.9 12/28/2014 Dermatitis, unspecified ICD-10: L30. 9 ICD-9: 692.9 12/28/2014 Anticoagulated on Coumadin ICD-9: V58.83 10/31/2014 [...] Item Item Code Result Date Comp Metabolic Jli379 NA 136 mEq/L 03/11/2018 Comp Metabolic Ylc369 K 4.3 mEq/L 03/11/2018 Comp Metabolic Lxv836 CL 101 mEq/L 03/11/2018 Comp Metabolic Pao311 CO2 27.0 mEq/L 03/11/2018 Comp Metabolic Uta393 AN ION GAP 12 03/11/2018 Comp Metabolic Xwy102 GL UCOSE 87 mg/dL 03/11/2018 Comp Metabolic Nnq744 Cr eat 1.0 mg/dL 03/11/2018 Comp Metabolic Bkv117 eG FR 79 ml/min/1.73m2 03/11 Comp Metabolic Mrb399 BUN 12 mg/dL 03/11/2018 Comp Metabolic Cxz219 B/ C Ratio 12.1 Ratio 03/11/2018 Comp Metabolic Dev483 CA LCIUM 8.9 mg/dL 03/11/2018 Comp Metabolic Pna919 AL K PHOS 106 U/L 03/11/2018 Comp Metabolic Rnf780 T(SGOT) 16 U/L 03/11/2018 Comp Metabolic Kib515 AL T(SGPT) 11 U/L 03/11/2018 Comp Metabolic Urg845 BI LI T 0.4 mg/dL 03/11/2018 Comp Metabolic Cpi373 AL BUMIN 3.8 g/dL 03/11/2018 Comp Metabolic Egf445 TP RO 6.5 g/dL 03/11/2018 Comp Metabolic Zbw127 GL OB 2.7 g/dL 03/11/2018 Comp Metabolic Kbf542 A/ G Ratio 1.4 Ratio 03/11/2018 Comp Metabolic Yjf365 Os mo 271 mOsmo 03/11/2018 Pt Cip0352 PT 31.3 seconds 03/11/2018 Pt Xqa9220 INR 3.1 03/11/2018 Pt Tsj3274 Low Intensity - 1.5-2.0 03/11/2018 Pt Zij4630 Mod intensity - 2.0-3.0 03/11/2018 Pt Jsy6781 Hi intensity - 3.0-4.0 03/11/2018 Tsh Ord6 TSH (3rd IS) 2.01 uIU/mL 03/11/2018 Cbc With Differential Ord2 WBC 10.11 [...] 29.8 pg 03/11/2018 Cbc With Differential Ord2 [place]% 11.3 % 03/11/2018 Cbc With Differential Ord2 [...] 2.87 K/ul 03/11/2018 Cbc With Differential Ord2 [place] ABS# 1.1 K/ul 03/11/2018 Cbc With Differential Ord2 Eos ABS# 0.4 K/ul 03/11/2018 Cbc With Differential Ord2 Baso ABS# 0.0 K/ul 03/11/2018 Shiga Toxin 1 & 2 Eia Stool [id number] SHIGA TOXIN 1: NEGATIVE 04/12/2017 Shiga Toxin 1 & 2 Eia Stool [id number] SHIGA TOXIN 2: NEGATIVE 04/12/2017 Culture Stool [id number] STO OL CULTURE SEE NOTES 04/12/2017 Clostridium Diff Tox A/B Mrf447 Cdiff Negative 04/09/2017 Pt Vuy6170 PT 64.8 seconds 01/10/2016 Pt Tmc4813 INR 8.6 01/10/2016 Pt Acf3718 Low Intensity - 1.5-2.0 01/10/2016 Pt Tsb8069 Mod intensity - 2.0-3.0 01/10/2016 Pt Nmb3075 Hi intensity - 3.0-4.0 01/10/2016 Pt Vab6842 PT 32.1 seconds 11/01/2014 Pt Hin3301 INR 3.2 11/01/2014 Pt Gha2668 Low Intensity - 1.5-2.0 11/01/2014 Pt Izf5492 Mod intensity - 2.0-3.0 11/01/2014 Pt Heq6426 Hi intensity - 3.0-4.0 11/01/2014 Pt Hnx6282 PT 30.2 seconds 10/03/2014 Pt Ezb4512 INR 3.0 10/03/2014 Pt Rdl3194 Low Intensity - 1.5-2.0 10/03/2014 Pt Mud7535 Mod intensity - 2.0-3.0 10/03/2014 Pt Koq6282 Hi intensity - 3.0-4.0 10/03/2014 D-Dimer D-DIMER 475 NG/ML 09/25/2014 D-Dimer COMMENT 09/25/2014 Magnesium Ord90 Mag 1.1 Result Verified By Repeat Analysis mg/dL 09/22/2014 Uric Acid Ord77 Uric A 5.9 mg/dL 09/22/2014 Comp Metabolic Sso757 NA 137 mEq/L 09/22/2014 Comp Metabolic Ihj007 K 4.2 mEq/L 09/22/2014 Comp Metabolic Dsw133 CL 102 mEq/L 09/22/2014 Comp Metabolic Yav118 CO2 25.0 mEq/L 09/22/2014 Comp Metabolic Igk251 AN ION GAP 14 09/22/2014 Comp Metabolic Biw766 GL UCOSE 94 mg/dL 09/22/2014 Comp Metabolic Mrk668 Cr eat 0.8 mg/dL 09/22/2014 Comp Metabolic Nts163 eG FR 102 ml/min/1.73m2 09/06 Comp Metabolic Vlm648 BUN 15 mg/dL 09/22/2014 Comp Metabolic Wxp155 B/ C Ratio 18.8 Ratio 09/22/2014 Comp Metabolic Lxv085 CA LCIUM 9.4 mg/dL 09/22/2014 Comp Metabolic Sjo590 AL K PHOS 65 U/L 09/22/2014 Comp Metabolic Nov866 T(SGOT) 15 U/L 09/22/2014 Comp Metabolic Xxf845 AL T(SGPT) 8 U/L 09/22/2014 Comp Metabolic Mkd955 BI LI T 0.4 mg/dL 09/22/2014 Comp Metabolic Oap463 AL BUMIN 4.0 g/dL 09/22/2014 Comp Metabolic Cgt496 TP RO 6.8 g/dL 09/22/2014 Comp Metabolic Qaj859 GL OB 2.8 g/dL 09/22/2014 Comp Metabolic Yvz457 A/ G Ratio 1.4 Ratio 09/22/2014 Comp Metabolic Cml177 Os mo 274 mOsmo 09/22/2014 Pt Hmw6090 PT 32.0 seconds 09/22/2014 Pt Tpi3386 INR 3.2 09/22/2014 Pt Wuj6811 Low Intensity - 1.5-2.0 09/22/2014 Pt Iqb7926 Mod intensity - 2.0-3.0 09/22/2014 Pt Ptl4289 Hi intensity - 3.0-4.0 09/22/2014 C-Reactive Protein Qnt Crqnt CRP 6.8 mg/dl 09/22/2014 Cbc With Differential Ord2 WBC 10.0 [...] normal 08/14/2016 None Full Exam - General 1995 Ears/Nose/Throat lips/teeth/gingiva Overall: benign lips 08/14/2016 None [...] Procedure Codes Date THER/PROPH/DIAG INJ SC/IM CPT-4: 93684 08/28/2017 ROCEPHIN, PER 250 MG CPT-4: J0696 08/28/2017 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-[address]: 933310072 CPT-4: G0436 01/27/2017 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-[address]: 692344252 CPT-4: G0436 11/25/2016 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-[address]: 860293292 CPT-4: G0436 10/15/2016 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-[address]: 256976913 CPT-4: G0436 09/17/2016 THER/PROPH/DIAG INJ SC/IM CPT-4: 47779 01/07/2016 TRIAMCINOLONE ACET I [place] NOS CPT-4: J3301 01/07/2016 TRIAMCINOLONE ACET I [place] NOS CPT-4: J3301 09/21/2014 THER/PROPH/DIAG INJ SC/IM CPT-4: 59169 09/21/2014 Vital Signs Date Vital 03/11/2018 Blood Pressure 1: 134/82 Code: 8480-6 BMI: 32.8 Code: 58228-0 Heart Rate 1: 65 bpm Height: 5'3" SpO2: 96% Weight: 185 lbs 08/28/2017 Blood Pressure 1: 138/72 Code: 8480-6 Heart Rate 1: 80 bpm Height: SpO2: 98% Weight: 07/20/2017 Blood Pressure 1: 134/76 Code: 8480-6 BMI: 29.6 Code: 08713-0 Heart Rate 1: 82 bpm Height: 5'3" [...] 1: 128/78 Code: 8480-6 BMI: 33.3 Code: 07634-6 Heart Rate 1: 72 bpm Height: 5'3" SpO2: 97% Weight: 188 lbs 01/10/2016 Blood Pressure 1: 132/76 Code: 8480-6 BMI: 33.1 Code: 43456-2 Heart Rate 1: 72 bpm Height: 5'3" SpO2: 97% Weight: 187 lbs 12/25/2015 Blood Pressure 1: 154/82 Code: 8480-6 BMI: 33.1 Code: 62010-6 Heart Rate 1: 72 bpm Height: 5'3" SpO2: 97% Weight: 187 lbs 10/11/2015 Blood Pressure 1: 110/62 Code: 8480-6 BMI: 34.7 Code: 47674-3 Heart Rate 1: 70 bpm Height: 5'3" SpO2: 93% Weight: 196 lbs 08/24/2015 Blood Pressure 1: 132/62 Code: 8480-6 BMI: 35.3 Code: 37616-6 Heart Rate 1: 62 bpm Height: 5'3" SpO2: 93% Weight: 199 lbs 08/20/2015 Blood Pressure 1: 140/68 Code: 8480-6 BMI: 35.3 Code: 53139-5 Heart Rate 1: 74 bpm Height: 5'3" SpO2: 96% Weight: 199 lbs 12/28/2014 Blood Pressure 1: 130/72 Code: 8480-6 BMI: 33.1 Code: 99096-1 Heart Rate 1: 60 bpm Height: 5'3" SpO2: 97% Weight: 187 lbs 10/31/2014 Blood Pressure 1: 118/72 Code: 8480-6 BMI: 31.2 Code: 67836-8 Heart Rate 1: 58 bpm Height: 5'3" SpO2: 98% Weight: 176 lbs 10/02/2014 Blood Pressure 1: 138/74 Code: 8480-6 BMI: 30.6 Code: 29431-5 Heart Rate 1: 72 bpm Height: 5'3" Weight: 173 lbs 09/21/2014 Blood Pressure 1: 138/72 Code: 8480-6 BMI: 30.5 Code: 05133-4 Heart Rate 1: 60 bpm Height: 5'3" [...] None Hospital Follow Up _ [facility] er: diverticulitis 10/11/2015 None Hospital Follow [...] Codes Date EST. 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 PATIENT, LEVEL III Diagnosis: Cellulitis of left axilla[ICD10: L03.112] Diagnosis: Cellulitis of right axilla[ICD10: L03.111] [facility] CPT-4: 83687 08/28/2017 [id number] EST. 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 PATIENT, LEVEL IV Diagnosis: Generalized anxiety disorder[ICD10: F41.1] Diagnosis: Major depressive disorder, single episode, moderate[ICD10: F32.1] Diagnosis: Diarrhea, unspecified[ICD10: R19.7] Rox Alvarez MD, [facility] CPT-4: 70618 04/21/2017 [id number] EST. PATIENT, LEVEL IV Diagnosis: Generalized anxiety disorder[ICD10: F41.1] Diagnosis: Major depressive disorder, single episode, moderate[ICD10: F32.1] Diagnosis: Nausea[ICD10: R11.0] Diagnosis: Diarrhea, unspecified[ICD10: R19.7] Rox Alvarez MD, [facility] CPT-4: 42535 04/07/2017 ([id number]) 58901 EST. P ATIENT, LEVEL IV Diagnosis: Essential (primary) hypertension[ICD10: I10] Diagnosis: Nausea[ICD10: R11.0] Diagnosis: Other fecal abnormalities[ICD10: R19.5] Diagnosis: Tobacco use[ICD10: Z72.0] Selena Alvarez MD, [facility] CPT-4: 59592 01/27/2017 ([id number]) 22842 EST. P [facility], LEVEL III Diagnosis: Essential (primary) hypertension[ICD10: I10] Diagnosis: Chronic obstructive pulmonary disease, unspecified[ICD10: J44.9] Diagnosis: Rash and other nonspecific skin eruption[ICD10: R21] Selena Alvarez MD, [facility] CPT-4: 81233 11/25/2016 ([id number]) 54838 EST. P [facility], LEVEL III Diagnosis: Other sites of candidiasis[ICD10: B37.89] Selena Alvarez MD, [facility] CPT-4: 76496 10/15/2016 ([id number]) 44835 EST. P ATIENT, LEVEL IV Diagnosis: Essential (primary) hypertension[ICD10: I10] Diagnosis: Urinary tract infection, site not specified[ICD10: N39.0] Diagnosis: Localized edema[ICD10: R60.0] Selena Alvarez MD, [facility] CPT-4: 44628 09/17/2016 74454 EST. 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 PATIENT, LEVEL III Diagnosis: Other specified bacterial intestinal infections[ICD10: A04.8] Rox Alvarez MD, [facility] CPT-4: 42671 04/16/2016 87236 EST. PATIENT, LEVEL II Diagnosis: Pain in right foot[ICD10: M79.671] Rox Alvarez MD [facility] CPT-4: 94665 01/21/2016 26920 EST. PATIENT, LEVEL III Diagnosis: Encounter for therapeutic drug level monitoring[ICD10: Z51.81] Diagnosis: Rash and other nonspecific skin eruption[ICD10: R21] Rox Alvarez MD [facility] CPT-4: 43721 01/10/2016 80006 EST. PATIENT, LEVEL III Diagnosis: Rash and other nonspecific skin eruption[ICD10: R21] Rox Alvarez MD [facility] CPT-4: 76387 01/07/2016 ([id number]) Miscellaneou s no charge Diagnosis: Cutaneous abscess of left axilla[ICD10: L02.412] Rox Alvarez MD [facility] CPT-4: 03750 01/02/2016 ([id number]) Miscellaneou s no charge Diagnosis: Cutaneous abscess of left axilla[ICD10: L02.412] Rox Alvarez MD [facility] CPT-4: 28986 01/01/2016 ([id number]) Miscellaneou s no charge Diagnosis: Cutaneous abscess of left axilla[ICD10: L02.412] Rox Alvarez MD [facility] CPT-4: 06539 12/31/2015 ([id number]) Patient adm itted to the hospital from clinic (NO CHARGE) Diagnosis: Cutaneous abscess of left axilla[ICD10: L02.412] Rox Alvarez MD, [facility] CPT-4: 56310X 12/25/2015 00930 EST. 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 PATIENT, LEVEL IV Diagnosis: Cellulitis of left toe[ICD10: L03.032] [facility] CPT-4: 50425 08/20/2015 92318 EST. PATIENT, LEVEL III Diagnosis: Essential (primary) hypertension[ICD10: I10] Diagnosis: Peripheral vascular disease, unspecified[ICD10: I73.9] Diagnosis: Dermatitis, unspecified[ICD10: L30.9] [facility] CPT- 4: 35228 12/28/2014 ([id number]) 08997 EST. P ATIENT, LEVEL III Diagnosis: ESSENTIAL HYPERTENSION[ICD9: 401.9] Diagnosis: PAD (peripheral artery disease)[ICD9: 443.9] Diagnosis: Anticoagulated on Coumadin[ICD9: V58.83] [facility] CPT-4: 94972 10/31/2014 ([id number]) 80578 EST. P ATIENT, LEVEL III Diagnosis: PAD (peripheral artery disease)[ICD9: 443.9] Diagnosis: Anticoagulated on Coumadin[ICD9: V58.83] Diagnosis: SCLERITIS[ICD9: 379.00] Diagnosis: ESSENTIAL HYPERTENSION[ICD9: 401.9] [facility] CPT- 4: 91965 10/02/2014 ([id number]) OFFICE [facility] - LEVEL 4 Diagnosis: GOUT[ICD9: 274.9] Diagnosis: COPD (chronic obstructive pulmonary disease)[ICD9: 496] Diagnosis: PAD (peripheral artery disease)[ICD9: 443.9] Diagnosis: ESSENTIAL HYPERTENSION[ICD9: 401.9] Selena Alvarez MD, [facility] CPT- 4: 95955 09/21/2014 Plan of Care Planned Activity Notes [...] Rox Luciano WPtel: [facility]0 [facility] (15 min) Moderate 03/11/2018 Patient Education: Patient Medication Summary Completed 03/11/2018 Appointment: Rox Luciano WPtel: [facility]5 [facility] (30 min) Complex 11/17/2017 Visit Plan: Cellulitis [...] Appointment: Rox Luciano WPtel: [facility]5 [facility] [place] (30 min) Complex 08/28/2017 Patient Education: [...] - continue with current medications, continue wi no added salt diet. Pt has been [...] ADLs independently. 07/20/2017 Appointment: Rox Luciano WPtel: [address] [place], [place] [phone] (30 min) [facility] 07/20/2017 Patient Education: Patient Medication Summary Completed 07/20/2017 Referral: Stephanie Silva WPtel: Referral Initiated 05/04/2017 Care Plan: Referral Order SNOMED-CT : [id number] Pending 04/30/2017 Visit Plan: Chronic Depression and [...] pain. 04/21/2017 Appointment: Rox Luciano WPtel: [phone] [facility] (30 min) Complex 04/21/2017 Patient Education: Patient [...] pain. 04/07/2017 Appointment: Rox Luciano WPtel: [phone] [facility] (30 min) Complex 04/07/2017 Patient Education: Patient Medication Summary Completed 04/07/2017 Appointment: Selena Alvarez WPtel: [phone] [facility] (15 min) Moderate 02/26/2017 Visit Plan: Hypertension [...] improving. 01/27/2017 Appointment: Selena Alvarez WPtel: [facility]5 [facility] (15 min) Moderate 01/27/2017 Patient Education: Patient [...] Selena Alvarez WPtel: [facility]5 [facility] (15 min) Moderate 11/25/2016 Appointment: Selena [facility]varez WPtel[facility] ([facility] min) Moderate 11/25/2016 Patient Education: Patient [...] over-medication. 10/15/2016 Appointment: Selena Alvarez WPtel: [facility]5 [facility] [place] (15 min) Moderate 10/15/2016 Patient Education: Patient Medication Summary Completed 10/15/2016 Patient Education: Smoking and Tobacco Addiction Completed 10/15/2016 Appointment: Rox Luciano WPtel: [facility]5 [facility] [place] (30 min) Complex 09/18/2016 Visit Plan: Hypertension [...] mobility evaluation. 08/14/2016 Appointment: Rox Luciano WPtel: [address] [place], [place] [address] (30 min) Complex 08/14/2016 Patient Education: Patient [...] stomach pain. 04/16/2016 [facility]ment[phone] ([facility] min) Moderate 04/16/2016 Patient Education: Patient Medication Summary Completed 04/16/2016 Patient Education: Smoking and Tobacco Addiction Completed 04/16/2016 Referral: Dr Arboleda Referral Completed 02/14/2016 Care Plan: Referral Order SNOMED-CT : [id number] Pending 01/29/2016 Visit Plan: Right foot pain [...] discharge. 01/10/2016 Appointment: [facility]el[phone] (30 min) Complex 01/10/2016 Patient Education: Patient [...] further I&D. 12/25/2015 Appointment: Emy Westbrook WPtel: [address] [place], [place] [phone] (15 min) Moderate 12/25/2015 Patient Education: Patient [...] management. 10/11/2015 Appointment: Rox Luciano WPtel: [facility] (30 min) Complex 10/11/2015 Patient Education: Patient Medication Summary Completed 10/11/2015 Patient Education: Smoking and Tobacco Addiction Completed 10/11/2015 Patient Education: Obesity Completed 10/11/2015 Referral: Gavino Navarro they are g oing to call if they get him in before if not we will call Dr shook Initiated 09/27/2015 Appointment: Emy Westbrook WPtel: [facility]6 [phone] (15 min) Moderate 08/24/2015 Patient Education: Patient Medication Summary Completed 08/24/2015 Patient Education: Smoking and Tobacco Addiction Completed 08/24/2015 Patient Education: Patient Medication Summary Completed 08/23/2015 Appointment: Emy Westbrook WPtel: [address] [place], [place] [phone] (30 min) Complex 08/22/2015 Referral: [facility] Referral Initiated 08/22/2015 Visit Plan: [...] Completed 12/28/2014 App[facility]ment: [phone] Follow up 12/20/2014 Visit Plan: Hypertension [...] 09/21/2014 Care Plan: Referral Order SNOMED-CT : [id number] Ordered 09/21/2014 Appointment: Selena Alvarez WPtel: [phone] [facility] [place] (S) New Patient 09/20/2014 Referral: Martinez Wren WPtel: [phone] [address] [place] Referral Initiated Referral: Gavino Navarro Referral Initiated Referral: [facility] WPtel: 1 [facility] Referral Initiated Referral: Dr Arboleda Referral [...] Will refer to PT for mobility evaluation. 5mg daily except Thu take 6mg on [...] size of the lesion, increase in pain. You need to see Dr. Holger SURESH. [...] change in blood pressure readings at home. Will send steroid cr eam for arms. [...] or with any questions or concerns. . Chronic Pain Syndr ome - pt [...] - Pt states that he went to [facility] for the abscess and they [...] repacked and dressing applied. probiotics - culture e or linares colon heatlh. . Gastroenteritis - [...] monitor output, call if not improving. . Left axilla absces s - packing removed - minimal drainage noted, repacked and dressing applied. will refer to Dr. Edgar jordan will [...] of groin - continue with nystatin . Hypertension - wel l controlled - continue with current medications, continue with no added salt diet. Pt has been encouraged to exercise daily. The pt has been advised to call the office if there are any acute concerns about change in blood pressure readings at home. . Hypertension - wel l controlled - [...] symptoms. check INR on thursday . Chronic Depression and anxiety - the [...]
--- OUTSIDE RECORDS SUMMARY | 2019-08-20 18:30 | XMS REPORT | CCD ---
Author Author Bony Alvarez Organization Selena Alvarez MD, [facility] Address [address] [place] [address] Phone Care Team Providers Care Veterinary Milk Specialist Name Role Phone PP Unavailable CCM Unavailable Summary Purpose Interface Exchange Insurance Providers Payer name Policy type / Coverage type Covered democrat ID Effective Begin Date Effective End Date [facility] Commercial Insurance [id number] 2017 Unknown Family history Father Diagnosis Age At Onset Hyperlipidemia Unknown Coronary Artery Disease Unknown Stroke Unknown Cancer Unknown Congestive heart failure Unknown Mother Diagnosis Age At Onset Hypertension Unknown kidney disease Unknown Cancer Unknown Stroke Unknown Hyperlipidemia Unknown Coronary Artery Disease Unknown Congestive heart failure Unknown Social History Social History Element Codes Description Effective Dates Tobacco history SNOMED CT: 897061800317173 Current some days smoker 09/21/2014 Allergies, Adverse [...] disorder ICD-9: 300.00 ICD-10: F41.1 04/21/2017 Active care home (current) use of anticoagulants ICD-9: [...] ICD-9: V67.59 ICD-10: Z09 10/10/2015 Active Other exterminator termite (cur rent) drug therapy ICD-9: V58.69 ICD-10: [...] Date Stop Date Sta tus Fill Instructions allopurinol 100 mg t ablet RxNorm: 121920 TAKE ONE TABLET BY MO UTH DAILY 04/06/2018 03/01/2019 Ac tive hydrocodone 7.5 mg-a cetaminophen 325 mg tablet RxNorm: 978667 1 Tablet(s) PO QID as needed 03/11/2018 04/09/2018 Active potassium chloride E R 20 mEq tablet,extended release RxNorm: 794827 Tablet(s) TAKE ONE TABLET BY MOUTH DAILY WHEN TAKING FUROSEMIDE NEEDED 03/05/2018 08/31/2018 Active gabapentin 300 mg ca psule RxNorm: 912065 TAKE ONE CAPSULE BY M [facility] THREE TIMES A DAY 03/04/2018 02/26/2019 Ac tive hydrocodone 7.5 mg-a cetaminophen 325 mg tablet RxNorm: 624824 1 Tablet(s) PO QID as needed 02/18/2018 03/10/2018 Inactive hydrocodone 7.5 mg-a cetaminophen 325 mg tablet RxNorm: 183392 1 Tablet(s) PO QID as needed 01/19/2018 02/17/2018 Inactive hydrocodone 7.5 mg-a cetaminophen 325 mg tablet RxNorm: 350725 1 Tablet(s) PO QID as needed 12/16/2017 01/14/2018 Inactive Pepcid 20 mg tablet RxNorm: 972215 Tablet(s) TAKE ONE TABLET BY MOUTH TWICE A DAY 12/08/2017 05/06/2018 Active hydrocodone 7.5 mg-a cetaminophen 325 mg tablet RxNorm: 148718 1 Tablet(s) PO QID as needed 11/18/2017 12/15/2017 Inactive gabapentin 300 mg ca psule RxNorm: 610272 Capsule(s) TAKE ONE C APSULE BY MOUTH THREE TIMES A DAY 11/11/2017 03/03/2018 Inactive gabapentin 300 mg ca psule RxNorm: 102972 TAKE ONE CAPSULE BY M [facility] THREE TIMES A DAY 11/10/2017 11/10/2017 Inactive hydrocodone 7.5 mg-a cetaminophen 325 mg tablet RxNorm: 691856 1 Tablet(s) PO QID as needed 10/19/2017 11/17/2017 Inactive hydrocodone 7.5 mg-a cetaminophen 325 mg tablet RxNorm: 048238 1 Tablet(s) PO QID as needed 09/16/2017 10/15/2017 Inactive doxycycline hyclate 100 mg capsule RxNorm: 0813652 1 Capsule(s) PO BID 08/28/2017 09/06/2017 In active hydrocodone 7.5 mg-a cetaminophen 325 mg tablet RxNorm: 571841 1 Tablet(s) PO QID as needed 08/21/2017 09/15/2017 Inactive Lexapro 10 mg tablet RxNorm: 933786 TAKE ONE TABLET BY MOUTH AT BEDTIME 08/02/2017 07/27/2018 Ac tive Zyrtec 10 mg tablet RxNorm: 4197245 1 Tablet(s) PO daily 07/20/2017 11/16/2017 Inactive hydrocodone 7.5 mg-a cetaminophen 325 mg tablet RxNorm: 741577 1 Tablet(s) PO QID as needed 07/20/2017 09/15/2017 Inactive furosemide 40 mg tablet RxNorm: 106166 Tablet(s) TAKE ONE TABLET BY MOUTH DAILY NEEDED FOR SWELLING 07/08/2017 01/03/2018 Inactive Pepcid 20 mg tablet RxNorm: 990990 TAKE ONE TABLET BY MOUTH TWICE A DAY 06/29/2017 11/25/2017 In active gabapentin 300 mg ca psule RxNorm: 445661 TAKE ONE CAPSULE BY M OUTH THREE TIMES A DAY 06/29/2017 10/26/2017 Inactive hydrocodone 7.5 mg-a cetaminophen 325 mg tablet RxNorm: 452729 1 Tablet(s) PO QID as needed 06/18/2017 07/17/2017 Inactive hydrocodone 7.5 mg-a cetaminophen 325 mg tablet RxNorm: 552095 1 Tablet(s) PO QID as needed 05/18/2017 06/16/2017 Inactive hydrocodone 7.5 mg-a cetaminophen 325 mg tablet RxNorm: 285964 1 Tablet(s) PO QID as needed 04/21/2017 05/17/2017 Inactive hyoscyamine 0.125 mg sublingual tablet RxNorm: 3153692 1 Tablet(s) SL TID a s needed 04/21/2017 04/25/2017 In active Lexapro 10 mg tablet RxNorm: 160323 1 Tablet(s) PO QHS 04/21/2017 07/19/2017 Inactive Flagyl 500 mg tablet RxNorm: 070452 1 Tablet(s) PO TID 04/07/2017 04/16/2017 Inactive Lexapro 10 mg tablet RxNorm: 964462 1 Tablet(s) PO QHS 04/07/2017 04/20/2017 Inactive hydrocodone 7.5 mg-a cetaminophen 325 mg tablet RxNorm: 808381 1 Tablet(s) PO QID as needed 03/24/2017 04/20/2017 Inactive allopurinol 100 mg t ablet RxNorm: 228186 TAKE ONE TABLET BY [facility] DAILY 03/10/2017 03/04/2018 In active hydrocodone 7.5 mg-a cetaminophen 325 mg tablet RxNorm: 710165 1 Tablet(s) PO QID as needed 02/11/2017 03/12/2017 Inactive gabapentin 300 mg ca psule RxNorm: 052810 TAKE ONE CAPSULE BY M OUT[facility] THREE TIMES A DAY 02/02/2017 06/28/2017 Inactive Zofran ODT 4 mg disi ntegrating tablet RxNorm: 227289 1 Tablet(s) PO QID as needed nausea and vomitting 01/27/2017 No Stop Date Active hydrocodone 7.5 mg-a cetaminophen 325 mg tablet RxNorm: 899911 1 Tablet(s) PO QID as needed 01/13/2017 02/10/2017 Inactive potassium chloride E R 20 mEq tablet,extended release RxNorm: 987298 TAKE ONE TABLET BY MOUTH DAILY WHEN TAKING FUROSEMIDE NEEDED 01/12/2017 07/10/2017 Inactive furosemide 40 mg tablet RxNorm: 525200 TAKE ONE TABLET BY MOUTH DAILY NEEDED FOR SWELLING 01/12/2017 07/09/2017 Inactive promethazine 25 mg t ablet RxNorm: 072595 TAKE ONE TABLET BY [facility] THREE TIMES A DAY NEEDED FOR NAUSEA AND VOMITING 01/12/2017 01/31/2017 Inactive promethazine 25 mg t ablet RxNorm: 663597 1 Tablet(s) PO TID as needed nausea and vomitting 01/06/2017 01/11/2017 Inactive Lomotil 2.5 mg-0.025 mg tablet RxNorm: 5138327 1-2 Tablet(s) PO BID as needed diarrhea 01/06/2017 01/05/2017 Inactive Lomotil 2.5 mg-0.025 mg tablet RxNorm: 7265856 1-2 Tablet(s) PO BID as needed diarrhea 01/06/2017 01/07/2017 Inactive Pepcid 20 mg tablet RxNorm: 795372 1 Tablet(s) PO BID 12/19/2016 06/16/2017 Inactive Pepcid 20 mg tablet RxNorm: 112665 1 Tablet(s) PO BID 12/16/2016 12/18/2016 Inactive hydrocodone 7.5 mg-a cetaminophen 325 mg tablet RxNorm: 518448 1 Tablet(s) PO QID as needed 12/16/2016 01/12/2017 Inactive hydrocodone 7.5 mg-a cetaminophen 325 mg tablet RxNorm: 291554 1 Tablet(s) PO QID as needed 11/18/2016 12/15/2016 Inactive allopurinol 100 mg t ablet RxNorm: 163039 TAKE ONE TABLET BY [facility] DAILY 10/29/2016 02/25/2017 In active hydrocodone 7.5 mg-a cetaminophen 325 mg tablet RxNorm: 075500 1 Tablet(s) PO QID as needed 10/15/2016 11/13/2016 Inactive nystatin 100,000 uni t/gram topical cream RxNorm: 341370 1 Gram(s) TOP QID 10/15/2016 11/25/2016 In active nystatin 100,000 uni t/gram topical powder RxNorm: 961898 1 Gram(s) TOP TID TO GROIN OR AFFECTED AREA 10/14/2016 No Stop Date Active hydrocodone 7.5 mg-a cetaminophen 325 mg tablet RxNorm: 179014 1 Tablet(s) PO QID as needed 09/17/2016 10/14/2016 Inactive furosemide 40 mg tablet RxNorm: 470225 1 Tablet(s) PO daily as needed swelling 09/17/2016 01/11/2017 In active potassium chloride E R 20 mEq tablet,extended release RxNorm: 723687 1 Tablet(s) PO daily as needed take when taking a lasix pill 09/17/2016 01/11/2017 Inactive Levaquin 500 mg tablet RxNorm: 106140 1 Tablet(s) PO daily 09/17/2016 09/21/2016 Inactive hydrocodone 7.5 mg-a cetaminophen 325 mg tablet RxNorm: 464970 1 Tablet(s) PO QID as needed 08/14/2016 09/12/2016 Inactive cyclobenzaprine 5 mg tablet RxNorm: 391307 1 Tablet(s) PO TID as needed 07/25/2016 07/29/2016 In active cyclobenzaprine 5 mg tablet RxNorm: 690634 1 Tablet(s) PO TID as needed 07/25/2016 07/24/2016 In active hydrocodone 7.5 mg-a cetaminophen 325 mg tablet RxNorm: 917194 1 Tablet(s) PO QID as needed 07/21/2016 08/13/2016 Inactive warfarin 1 mg tablet RxNorm: 714957 TAKE ONE TABLET BY MOUTH EVERY EVENING 06/26/2016 08/04/2016 In active hydrocodone 7.5 mg-a cetaminophen 325 mg tablet RxNorm: 460979 1 Tablet(s) PO QID as needed 06/24/2016 07/20/2016 Inactive hydrocodone 5 mg-yanira taminophen 325 mg tablet RxNorm: 523095 1 Tablet(s) PO Q6 as needed for pain 06/09/2016 06/10/2016 Inactive warfarin 1 mg tablet RxNorm: 676467 TAKE ONE TABLET BY MOUTH EVERY EVENING 06/02/2016 06/21/2016 In active allopurinol 100 mg t ablet RxNorm: 723060 TAKE ONE TABLET BY MO [facility] DAILY 05/21/2016 10/17/2016 In active hydrocodone 7.5 mg-a cetaminophen 325 mg tablet RxNorm: 856863 1 Tablet(s) PO QID as needed 05/09/2016 06/07/2016 Inactive gabapentin 300 mg ca psule RxNorm: 867661 Capsule(s) TAKE ONE C APSULE BY MOUTH THREE TIMES A DAY 04/25/2016 11/09/2017 Inactive promethazine 25 mg t ablet RxNorm: 813650 TAKE ONE TABLET BY MO [facility] THREE TIMES A DAY NEEDED 2016 05/01/2016 Inactive warfarin 1 mg tablet RxNorm: 579448 TAKE ONE TABLET BY MOUTH EVERY EVENING 2016 05/31/2016 In active promethazine 25 mg t ablet RxNorm: 193648 1 Tablet(s) PO TID as needed 04/16/2016 04/21/2016 In active warfarin 1 mg tablet RxNorm: 341614 TAKE ONE TABLET BY MOUTH EVERY EVENING 02/13/2016 04/12/2016 In active magnesium oxide 400 mg tablet RxNorm: 595400 TAKE ONE TABLET BY MO [place] TWICE A DAY 02/07/2016 01/01/2017 In active hydrocodone 5 mg-yanira taminophen 325 mg tablet RxNorm: 601083 1 Tablet(s) PO Q6 as needed for pain 01/21/2016 02/19/2016 Inactive warfarin 1 mg tablet RxNorm: 920004 TAKE ONE TABLET BY MOUTH EVERY EVENING 01/17/2016 02/05/2016 In active gabapentin 300 mg ca psule RxNorm: 048199 Capsule(s) TAKE ONE C APSULE BY MOUTH THREE TIMES A DAY 01/11/2016 04/24/2016 Inactive prednisone 10 mg tablet RxNorm: 296831 Tablet(s) PO UD 01/10/2016 03/08/2018 Inactive 60mg x2 days, then 50mg x2 days, then 40mg x2 days, 30mg x2 days, 20mg x2 days, 10mg x2days, 5mg every other day x 2 doses Kenalog 40 mg/mL cassius pension for injection RxNorm: 9344271 Milliliter(s) Inj 01/07/2016 01/07/2016 In active warfarin 1 mg tablet RxNorm: 293075 TAKE ONE TABLET BY MOUTH EVERY EVENING 01/01/2016 01/16/2016 In active hydrocodone 5 mg-yanira taminophen 325 mg tablet RxNorm: 943720 1 Tablet(s) PO Q6 as needed for pain 01/01/2016 01/15/2016 Inactive gabapentin 300 mg ca psule RxNorm: 432400 TAKE ONE CAPSULE BY M OUT[facility] THREE TIMES A DAY 12/12/2015 01/10/2016 Inactive warfarin 5 mg tablet RxNorm: 265304 1 Tablet(s) PO daily 12/05/2015 No Stop Date Active warfarin 1 mg tablet RxNorm: 033220 TAKE ONE TABLET BY MOUTH EVERY EVENING 11/13/2015 12/22/2015 In active hydrocodone 5 mg-yanira taminophen 325 mg tablet RxNorm: 065059 1 Tablet(s) PO Q6 as needed for pain 10/26/2015 11/09/2015 Inactive allopurinol 100 mg t ablet RxNorm: 490098 1 Tablet(s) PO daily TAKE ONE TABLET BY MOUTH DAILY 10/18/2015 04/14/2016 Inactive hydrocodone 5 mg-yanira taminophen 325 mg tablet RxNorm: 482029 1 Tablet(s) PO Q6 as needed for pain 09/26/2015 10/10/2015 Inactive gabapentin 300 mg ca psule RxNorm: 717572 TAKE ONE CAPSULE BY M OUTH THREE TIMES A DAY 09/14/2015 12/11/2015 Inactive warfarin 1 mg tablet RxNorm: 482567 1 Tablet(s) PO QPM 09/14/2015 11/12/2015 Inactive hydrocodone 5 mg-yanira taminophen 325 mg tablet RxNorm: 118248 1 Tablet(s) PO Q6 as needed for pain 09/12/2015 09/25/2015 Inactive hydrocodone 5 mg-yanira taminophen 325 mg tablet RxNorm: 627220 1 Tablet(s) PO Q6 as needed for pain 08/22/2015 09/05/2015 Inactive Bactrim DS 800 mg-16 0 mg tablet RxNorm: 096268 1 Tablet(s) PO BID 08/20/2015 09/02/2015 Inactive magnesium oxide 400 mg tablet RxNorm: 674502 TAKE ONE TABLET BY MO [facility] TWICE A DAY 01/20/2015 01/14/2016 In active gabapentin 300 mg ca psule RxNorm: 517064 TAKE ONE CAPSULE BY [facility] THREE TIMES A DAY 01/20/2015 05/19/2015 Inactive magnesium oxide 400 mg tablet RxNorm: 475850 1 Tablet(s) PO BID 01/17/2015 05/16/2015 Inactive gabapentin 300 mg ca psule RxNorm: 124209 1 Capsule(s) PO TID 01/17/2015 05/16/2015 Inactive allopurinol 100 mg t ablet RxNorm: 715267 TAKE ONE TABLET BY [facility] DAILY 10/18/2014 10/12/2015 In active Kenalog 40 mg/mL cassius pension for injection RxNorm: 9669905 1 Milliliter(s) Inj 09/21/2014 09/21/2014 In active allopurinol 100 mg t ablet RxNorm: 360771 1 Tablet(s) PO daily 09/21/2014 10/17/2014 Inactive gabapentin 300 mg ca psule RxNorm: 714975 1 Capsule(s) PO TID 09/12/2014 01/09/2015 Inactive gabapentin 300 mg ca psule RxNorm: 818567 1 Capsule(s) PO TID 09/12/2014 09/11/2014 Inactive magnesium oxide 400 mg tablet RxNorm: 029374 1 Tablet(s) PO BID 09/12/2014 01/09/2015 Inactive magnesium oxide 400 mg tablet RxNorm: 615291 1 Tablet(s) PO BID 09/12/2014 09/11/2014 Inactive lisinopril 5 mg tablet RxNorm: 024801 1 Tablet(s) PO daily No Start Date Active atorvastatin oral RxNorm: 90946 oral No Start Date Active Coreg 6.25 mg tablet RxNorm: 396261 1 Tablet(s) PO BID No Start Date Active Combivent Respimat 2 0 mcg-100 mcg/actuation solution for inhalation RxNorm: 5215052 1 Puff(s) INH as needed No Start Date Active Ventolin Refill 90 m cg/actuation aerosol inhaler RxNorm: 765055 2 INH as needed No Start Date Active Centrum Silver Women oral RxNorm: [address] art Date Active aspirin 81 mg capsul e,delayed release RxNorm: 300246 1 Capsule(s) PO daily No Start Date Active nystatin 100,000 uni t/gram topical powder RxNorm: 891887 1 Gram(s) TOP TID No Start Date 10/13/2016 Inactive warfarin 1 mg tablet RxNorm: 575409 oral No Start Date 09/13/2015 Inactive Pepcid 20 mg tablet RxNorm: 315250 1 Tablet(s) PO BID No Start Date 12/15/2016 Inactive Protonix 40 mg table t,delayed release RxNorm: 127524 1 Tablet(s) PO daily No Start Date 09/16/2016 Inactive warfarin 5 mg tablet RxNorm: 053488 1 Tablet(s) PO daily 1.5 tabs on Thu No Start Date 12/04/2015 Inactive minocycline 50 mg ca psule RxNorm: 794210 1 Capsule(s) PO BID o rdered by Dr. Saarvia No Start Date 03/08/2018 Inactive furosemide 40 mg tablet RxNorm: 643692 1 Tablet(s) PO daily No Start Date 09/16/2016 Inactive Medication Administered Medication Codes Instruc tions Start Date Status Kenalog 40 mg/mL suspension for injection RxNorm: 0269596 Milliliter 01/07/2016 No longer Active Kenalog 40 mg/mL suspension for injection RxNorm: 2664167 1Milliliter 09/21/2014 N o longer Active Immunizations No Immunization data Assessments Condition Codes Effectiv e Dates Chronic pain syndrome ICD-10: G89.4 ICD-9: 338.4 03/11/2018 care home (current) use of anticoagulants ICD-10: Z79.01 [...] neoplasm ICD-10: Z09 ICD-9: V67.59 10/11/2015 Other exterminator 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 (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) drug therapy ICD-10: Z79.899 ICD-9: V58.69 [...] Item Item Code Result Date Comp Metabolic Pvw471 NA 136 mEq/L 03/11/2018 Comp Metabolic Irc736 K 4.3 mEq/L 03/11/2018 Comp Metabolic Hdi116 CL 101 mEq/L 03/11/2018 Comp Metabolic Yan659 CO2 27.0 mEq/L 03/11/2018 Comp Metabolic Vis132 AN ION GAP 12 03/11/2018 Comp Metabolic Zim389 GL UCOSE 87 mg/dL 03/11/2018 Comp Metabolic Lze193 Cr eat 1.0 mg/dL 03/11/2018 Comp Metabolic Xdq152 eG FR 79 ml/min/1.73m2 03/11 Comp Metabolic Hdf076 BUN 12 mg/dL 03/11/2018 Comp Metabolic Svl860 B/ C Ratio 12.1 Ratio 03/11/2018 Comp Metabolic Aax221 CA LCIUM 8.9 mg/dL 03/11/2018 Comp Metabolic Kko502 AL K PHOS 106 U/L 03/11/2018 Comp Metabolic Maj706 T(SGOT) 16 U/L 03/11/2018 Comp Metabolic Bif583 AL T(SGPT) 11 U/L 03/11/2018 Comp Metabolic Xzd901 BI LI T 0.4 mg/dL 03/11/2018 Comp Metabolic Ibl637 AL BUMIN 3.8 g/dL 03/11/2018 Comp Metabolic Nzn106 TP RO 6.5 g/dL 03/11/2018 Comp Metabolic Wjd106 GL OB 2.7 g/dL 03/11/2018 Comp Metabolic Tho779 A/ G Ratio 1.4 Ratio 03/11/2018 Comp Metabolic Inr568 Os mo 271 mOsmo 03/11/2018 Tsh Ord6 TSH (3rd IS) 2.01 uIU/mL 03/11/2018 Pt Epr2869 PT 31.3 seconds 03/11/2018 Pt Xcg7749 INR 3.1 03/11/2018 Pt Ttj2103 Low Intensity - 1.5-2.0 03/11/2018 Pt Kif0277 Mod intensity - 2.0-3.0 03/11/2018 Pt Aez2181 Hi intensity - 3.0-4.0 03/11/2018 Cbc With Differential Ord2 WBC 10.11 [...] 29.8 pg 03/11/2018 Cbc With Differential Ord2 [place]% 11.3 % 03/11/2018 Cbc With Differential Ord2 [...] 2.87 K/ul 03/11/2018 Cbc With Differential Ord2 [place] ABS# 1.1 K/ul 03/11/2018 Cbc With Differential Ord2 Eos ABS# 0.4 K/ul 03/11/2018 Cbc With Differential Ord2 Baso ABS# 0.0 K/ul 03/11/2018 Culture Stool [id number] STO OL CULTURE SEE NOTES 04/12/2017 Shiga Toxin 1 & 2 Eia Stool [id number] SHIGA TOXIN 1: NEGATIVE 04/12/2017 Shiga Toxin 1 & 2 Eia Stool [id number] SHIGA TOXIN 2: NEGATIVE 04/12/2017 Clostridium Diff Tox A/B Fdk675 Cdiff Negative 04/09/2017 Pt Ogk3732 PT 64.8 seconds 01/10/2016 Pt Hzm8704 INR 8.6 01/10/2016 Pt Qeh3656 Low Intensity - 1.5-2.0 01/10/2016 Pt Qfj3624 Mod intensity - 2.0-3.0 01/10/2016 Pt Evi8315 Hi intensity - 3.0-4.0 01/10/2016 Pt Dkl6222 PT 32.1 seconds 11/01/2014 Pt Zwf0272 INR 3.2 11/01/2014 Pt Xth2532 Low Intensity - 1.5-2.0 11/01/2014 Pt Xwr4529 Mod intensity - 2.0-3.0 11/01/2014 Pt Rvc7154 Hi intensity - 3.0-4.0 11/01/2014 Pt Bog5386 PT 30.2 seconds 10/03/2014 Pt Kfb4370 INR 3.0 10/03/2014 Pt Pdp4785 Low Intensity - 1.5-2.0 10/03/2014 Pt Yxx8324 Mod intensity - 2.0-3.0 10/03/2014 Pt Jom5387 Hi intensity - 3.0-4.0 10/03/2014 D-Dimer D-DIMER 475 NG/ML 09/25/2014 D-Dimer COMMENT 09/25/2014 Magnesium Ord90 Mag 1.1 Result Verified By Repeat Analysis mg/dL 09/22/2014 Pt Vwi8670 PT 32.0 seconds 09/22/2014 Pt Fcd1992 INR 3.2 09/22/2014 Pt Fsv4559 Low Intensity - 1.5-2.0 09/22/2014 Pt Dpv4160 Mod intensity - 2.0-3.0 09/22/2014 Pt Eji9494 Hi intensity - 3.0-4.0 09/22/2014 Comp Metabolic Umx349 NA 137 mEq/L 09/22/2014 Comp Metabolic Kcn889 K 4.2 mEq/L 09/22/2014 Comp Metabolic Pjg918 CL 102 mEq/L 09/22/2014 Comp Metabolic Wsj519 CO2 25.0 mEq/L 09/22/2014 Comp Metabolic Mie056 AN ION GAP 14 09/22/2014 Comp Metabolic Xie908 GL UCOSE 94 mg/dL 09/22/2014 Comp Metabolic Zut418 Cr eat 0.8 mg/dL 09/22/2014 Comp Metabolic Pct564 eG FR 102 ml/min/1.73m2 09/06 Comp Metabolic Tso346 BUN 15 mg/dL 09/22/2014 Comp Metabolic Pdx264 B/ C Ratio 18.8 Ratio 09/22/2014 Comp Metabolic Ksr338 CA LCIUM 9.4 mg/dL 09/22/2014 Comp Metabolic Sqz371 AL K PHOS 65 U/L 09/22/2014 Comp Metabolic Raq306 T(SGOT) 15 U/L 09/22/2014 Comp Metabolic Lzw002 AL T(SGPT) 8 U/L 09/22/2014 Comp Metabolic Gbz800 BI LI T 0.4 mg/dL 09/22/2014 Comp Metabolic Xkn827 AL BUMIN 4.0 g/dL 09/22/2014 Comp Metabolic Clj338 TP RO 6.8 g/dL 09/22/2014 Comp Metabolic Nsd180 GL OB 2.8 g/dL 09/22/2014 Comp Metabolic Eyd050 A/ G Ratio 1.4 Ratio 09/22/2014 Comp Metabolic Pms181 Os mo 274 mOsmo 09/22/2014 C-Reactive Protein [...] Procedure Codes Date THER/PROPH/DIAG INJ SC/IM CPT-4: 69625 08/28/2017 ROCEPHIN, PER 250 MG CPT-4: J0696 08/28/2017 TOBACCO-USE POSTAL SUPERINTENDENT 3-[address]: 811788438 CPT-4: G0436 01/27/2017 TOBACCO-USE POSTAL SUPERINTENDENT 3-[address]: 103337366 CPT-4: G0436 11/25/2016 TOBACCO-USE POSTAL SUPERINTENDENT 3-[address]: 296099999 CPT-4: G0436 10/15/2016 TOBACCO-USE POSTAL SUPERINTENDENT 3-[address]: 569462700 CPT-4: G0436 09/17/2016 THER/PROPH/DIAG INJ SC/IM CPT-4: 05638 01/07/2016 TRIAMCINOLONE ACET I [place] NOS CPT-4: J3301 01/07/2016 TRIAMCINOLONE ACET I [place] NOS CPT-4: J3301 09/21/2014 THER/PROPH/DIAG INJ SC/IM CPT-4: 54838 09/21/2014 Vital Signs Date Vital 03/11/2018 Blood Pressure 1: 134/82 Code: 8480-6 BMI: 32.8 Code: 01982-2 Heart Rate 1: 65 bpm Height: 5'3" SpO2: 96% Weight: 185 lbs 08/28/2017 Blood Pressure 1: 138/72 Code: 8480-6 Heart Rate 1: 80 bpm Height: SpO2: 98% Weight: 07/20/2017 Blood Pressure 1: 134/76 Code: 8480-6 BMI: 29.6 Code: 29415-7 Heart Rate 1: 82 bpm Height: 5'3" [...] 1: 128/78 Code: 8480-6 BMI: 33.3 Code: 84296-5 Heart Rate 1: 72 bpm Height: 5'3" SpO2: 97% Weight: 188 lbs 01/10/2016 Blood Pressure 1: 132/76 Code: 8480-6 BMI: 33.1 Code: 27255-8 Heart Rate 1: 72 bpm Height: 5'3" SpO2: 97% Weight: 187 lbs 12/25/2015 Blood Pressure 1: 154/82 Code: 8480-6 BMI: 33.1 Code: 85526-4 Heart Rate 1: 72 bpm Height: 5'3" SpO2: 97% Weight: 187 lbs 10/11/2015 Blood Pressure 1: 110/62 Code: 8480-6 BMI: 34.7 Code: 07850-8 Heart Rate 1: 70 bpm Height: 5'3" SpO2: 93% Weight: 196 lbs 08/24/2015 Blood Pressure 1: 132/62 Code: 8480-6 BMI: 35.3 Code: 55562-3 Heart Rate 1: 62 bpm Height: 5'3" SpO2: 93% Weight: 199 lbs 08/20/2015 Blood Pressure 1: 140/68 Code: 8480-6 BMI: 35.3 Code: 55749-5 Heart Rate 1: 74 bpm Height: 5'3" SpO2: 96% Weight: 199 lbs 12/28/2014 Blood Pressure 1: 130/72 Code: 8480-6 BMI: 33.1 Code: 19989-3 Heart Rate 1: 60 bpm Height: 5'3" SpO2: 97% Weight: 187 lbs 10/31/2014 Blood Pressure 1: 118/72 Code: 8480-6 BMI: 31.2 Code: 90500-9 Heart Rate 1: 58 bpm Height: 5'3" SpO2: 98% Weight: 176 lbs 10/02/2014 Blood Pressure 1: 138/74 Code: 8480-6 BMI: 30.6 Code: 84014-1 Heart Rate 1: 72 bpm Height: 5'3" Weight: 173 lbs 09/21/2014 Blood Pressure 1: 138/72 Code: 8480-6 BMI: 30.5 Code: 33463-9 Heart Rate 1: 60 bpm Height: 5'3" [...] None Hospital Follow Up _ [facility] er: diverticulitis 10/11/2015 None Hospital [...] Encounters Encounter Performer Loca tion Codes Date [id number] EST. 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 PATIENT, LEVEL III Diagnosis: Cellulitis of left axilla[ICD10: L03.112] Diagnosis: Cellulitis of right axilla[ICD10: L03.111] Rox Alvarez MD, [facility] CPT-4: 54566 08/28/2017 [id number] EST. 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 PATIENT, LEVEL IV Diagnosis: Generalized anxiety disorder[ICD10: F41.1] Diagnosis: Major depressive disorder, single episode, moderate[ICD10: F32.1] Diagnosis: Diarrhea, unspecified[ICD10: R19.7] Rox Alvarez MD, [facility] CPT-4: 04957 04/21/2017 [id number] EST. PATIENT, LEVEL IV Diagnosis: Generalized anxiety disorder[ICD10: F41.1] Diagnosis: Major depressive disorder, single episode, moderate[ICD10: F32.1] Diagnosis: Nausea[ICD10: R11.0] Diagnosis: Diarrhea, unspecified[ICD10: R19.7] Rox Alvarez MD, [facility] CPT-4: 28395 04/07/2017 ([id number]) 14395 EST. [facility], [facility] Diagnosis: Essential (primary) hypertension[ICD10: I10] Diagnosis: Nausea[ICD10: R11.0] Diagnosis: Other fecal abnormalities[ICD10: R19.5] Diagnosis: Tobacco use[ICD10: Z72.0] Selena Alvarez MD, [facility] CPT-4: 27443 01/27/2017 ([id number]) 06321 EST. [facility] Diagnosis: Essential (primary) hypertension[ICD10: I10] Diagnosis: Chronic obstructive pulmonary disease, unspecified[ICD10: J44.9] Diagnosis: Rash and other nonspecific skin eruption[ICD10: R21] Selena Alvarez MD, [facility] CPT-4: 18311 11/25/2016 ([id number]) [id number] EST. [facility] Diagnosis: Other sites of candidiasis[ICD10: B37.89] Selena Alvarez MD, [facility] CPT-4: 43288 10/15/2016 ([id number]) 96669 EST. [facility] Diagnosis: Essential (primary) hypertension[ICD10: I10] Diagnosis: Urinary tract infection, site not specified[ICD10: N39.0] Diagnosis: Localized edema[ICD10: R60.0] Selena Alvarez MD, [facility] CPT-4: 78055 09/17/2016 [id number] EST. 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 PATIENT, LEVEL III Diagnosis: Other specified bacterial intestinal infections[ICD10: A04.8] Rox Alvarez MD, [facility] CPT-4: 06087 04/16/2016 [id number] EST. PATIENT, LEVEL II Diagnosis: Pain in right foot[ICD10: M79.671] Rox Alvarez MD, [facility] CPT-4: 84330 01/21/2016 08539 EST. PATIENT, LEVEL III Diagnosis: Encounter for therapeutic drug level monitoring[ICD10: Z51.81] Diagnosis: Rash and other nonspecific skin eruption[ICD10: R21] Rox Alvarez MD [facility] CPT-4: 06128 01/10/2016 06260 EST. PATIENT, LEVEL III Diagnosis: Rash and other nonspecific skin eruption[ICD10: R21] Rox Alvarez MD [facility] CPT-4: 60728 01/07/2016 ([id number]) Miscellaneou s no charge Diagnosis: Cutaneous abscess of left axilla[ICD10: L02.412] Rox Alvarez MD [facility] CPT-4: 09013 01/02/2016 ([id number]) Miscellaneou s no charge Diagnosis: Cutaneous abscess of left axilla[ICD10: L02.412] Rox Alvarez MD [facility] CPT-4: 69575 01/01/2016 ([id number]) Miscellaneou s no charge Diagnosis: Cutaneous abscess of left axilla[ICD10: L02.412] Rox Alvarez MD, [facility] CPT-4: 73942 12/31/2015 ([id number]) Patient adm itted to the hospital from clinic (NO CHARGE) Diagnosis: Cutaneous abscess of left axilla[ICD10: L02.412] Rox Alvarez MD [facility] CPT-4: 47021N 12/25/2015 09138 EST. PATIENT, LEVEL III Diagnosis: Encounter for follow-up examination after completed treatment for conditions other than malignant neoplasm[ICD10: Z09] Diagnosis: Diverticulitis of intestine, part unspecified, without perforation or abscess with bleeding[ICD10: K57.93] Diagnosis: Cellulitis of left toe[ICD10: L03.032] Diagnosis: Other obesity due to excess calories[ICD10: E66.09] Diagnosis: Other fdc (current) drug therapy[ICD10: Z79.899] Rox Alvarez MD, [facility] CPT-4: 25617 10/11/2015 ([id number]) Miscellaneou s no charge Diagnosis: Encounter for therapeutic drug level monitoring[ICD10: Z51.81] Diagnosis: Other acute osteomyelitis, left ankle and foot[ICD10: M86.172] Rox Alvarez MD, [facility] CPT-4: 02689 08/24/2015 30349 EST. PATIENT, LEVEL IV Diagnosis: Cellulitis of left toe[ICD10: L03.032] Rox Alvarez MD, [facility] CPT-4: 00789 08/20/2015 33628 EST. PATIENT, LEVEL III Diagnosis: Essential (primary) hypertension[ICD10: I10] Diagnosis: Peripheral vascular disease, unspecified[ICD10: I73.9] Diagnosis: Dermatitis, unspecified[ICD10: L30.9] Rox Alvarez MD, [facility] CPT- 4: 41473 12/28/2014 ([id number]) 45030 EST. [facility] Diagnosis: ESSENTIAL HYPERTENSION[ICD9: 401.9] Diagnosis: PAD (peripheral artery disease)[ICD9: 443.9] Diagnosis: Anticoagulated on Coumadin[ICD9: V58.83] Emy Alvarez MD, [facility] CPT-4: 76615 10/31/2014 ([id number]) 76948 EST. [facility] Diagnosis: PAD (peripheral artery disease)[ICD9: 443.9] Diagnosis: Anticoagulated on Coumadin[ICD9: V58.83] Diagnosis: SCLERITIS[ICD9: 379.00] Diagnosis: ESSENTIAL HYPERTENSION[ICD9: 401.9] Selena Alvarez MD, [facility] CPT- 4: 57531 10/02/2014 ([id number]) OFFICE [facility], [facility] - LEVEL 4 Diagnosis: GOUT[ICD9: 274.9] Diagnosis: COPD (chronic obstructive pulmonary disease)[ICD9: 496] Diagnosis: PAD (peripheral artery disease)[ICD9: 443.9] Diagnosis: ESSENTIAL HYPERTENSION[ICD9: 401.9] Selena Alvarez MD, [facility] CPT- 4: 77478 09/21/2014 Plan of Care Planned Activity Notes [...] continue PT 03/11/2018 Appointment: Rox Luciano WPtel: [phone] [facility] (15 min) Moderate 03/11/2018 Patient Education: Patient Medication Summary Completed 03/11/2018 Appointment: Rox Luciano WPtel: [phone] [facility] (30 min) Complex 11/17/2017 Visit Plan: [...] Appointment: Rox Luciano WPtel: [facility] (30 min) Complex 08/28/2017 Patient Education: [...] ADLs independently. 07/20/2017 Appointment: Rox Luciano WPtel: [address] [place], [place] [address] (30 min) [facility] 07/20/2017 Patient Education: Patient Medication Summary Completed 07/20/2017 Referral: Stephanie Silva WPtel: Referral Initiated 05/04/2017 Care Plan: Referral Order SNOMED-CT : [id number] Pending 04/30/2017 Visit Plan: Chronic Depression and [...] stomach pain. 04/21/2017 Appointment: Rox Luciano WPtel: [facility]5 [facility] (30 min) Complex 04/21/2017 Patient Education: [...] stomach pain. 04/07/2017 Appointment: Rox Luciano WPtel: [facility]5 [facility] (30 min) Complex 04/07/2017 Patient Education: Patient Medication Summary Completed 04/07/2017 Appointment: Selena Alvarez WPtel: [facility]5 [facility] (15 min) Moderate 02/26/2017 Visit Plan: Hypertension [...] improving. 01/27/2017 Appointment: Selena Alvarez WPtel: [phone] [facility] (15 min) Moderate 01/27/2017 Patient Education: Patient [...] nystatin 11/25/2016 Appointment: Selena Alvarez WPtel: [phone] [facility] (15 min) Moderate 11/25/2016 Appointment: Selena Alvarez WPtel: [facility] (15 min) Moderate 11/25/2016 Patient Education: Patient [...] of over-medication. 10/15/2016 Appointment: Selena Alvarez WPtel[facility] ([facility] min) Moderate 10/15/2016 Patient Education: Patient Medication Summary Completed 10/15/2016 Patient Education: Smoking and Tobacco Addiction Completed 10/15/2016 Appointment: Rox Luciano WPtel: [facility] ([facility] min) [facility] 09/18/2016 Visit Plan: [...] mobility evaluation. 08/14/2016 Appointment: Rox Luciano WPtel: [address] [place], [place] [address] (30 min) [facility] 08/14/2016 Patient Education: Patient Medication Summary Completed [...] pain. 04/16/2016 Appointment: [facility]el[phone] (15 min) Moderate 04/16/2016 Patient Education: Patient Medication Summary Completed 04/16/2016 Patient Education: Smoking and Tobacco Addiction Completed 04/16/2016 Referral: Dr Arboleda Referral Completed 02/14/2016 Care Plan: Referral Order SNOMED-CT : [id number] Pending 01/29/2016 Visit Plan: Right foot pain [...] discharge. 01/10/2016 Appointment: [phone] ([facility] min) Complex 01/10/2016 Patient Education: [...] further I&D. 12/25/2015 Appointment: Emy Westbrook WPtel: [address] [place], [place] [phone] (15 min) Moderate 12/25/2015 Patient Education: Patient [...] care management. 10/11/2015 Appointment: Rox Luciano WPtel: [facility]5 [facility] (30 min) Complex 10/11/2015 Patient Education: Patient Medication Summary Completed 10/11/2015 Patient Education: Smoking and Tobacco Addiction Completed 10/11/2015 Patient Education: Obesity Completed 10/11/2015 Referral: Gavino Navarro they are g oing to call if they get him in before if not we will call Dr shook Initiated 09/27/2015 Appointment: Emy Westbrook WPtel: [address] [place], [place] [phone] (15 min) Moderate 08/24/2015 Patient Education: Patient Medication Summary Completed 08/24/2015 Patient Education: Smoking and Tobacco Addiction Completed 08/24/2015 Patient Education: Patient Medication Summary Completed 08/23/2015 Appointment: Emy Westbrook WPtel: [facility]5 [phone] (30 min) Complex 08/22/2015 Referral: [facility] WPtel: [address] [facility] [place] Referral Initiated 08/22/2015 Visit Plan: Pt on [...] Completed 12/28/2014 Appointment: Selena [facility]varez [facility]Ptel[phone] Follow up 12/20/2014 Visit Plan: Hypertension - [...] 09/21/2014 Care Plan: Referral Order SNOMED-CT : [id number] Ordered 09/21/2014 Appointment: Selena Alvarez WPtel: [phone] [facility] [place] ([place]) New Patient 09/20/2014 Referral: Martinez Wren WPtel: [phone] [facility] [place] Referral Initiated Referral: Gavino Navarro Referral Initiated Referral: [facility] WPtel: [address] [place] [address] [place] Referral Initiated Referral: Dr Arboleda Referral Completed Referral: Stephanie Rodriguezrick WPtel: Referral Initiated Instructions Comment . Hypertension [...] monitor symptoms. check INR on thursday . Pt on chronic anti coagulation. Dr. [...] size of the lesion, increase in pain. GO TO YOUR APPOINTME NT WITH DR. NAVARRO ON THURSDAY AT 1230. CONTINUE WITH THE BACTRIM 1 PILL TWICE A DAY. WE WILL CHECK YOUR COUMADIN LEVEL TODAY AND SEE IF WE NEED TO ADJUST IT. WE WILL CALL DR. DOMINGO OFFICE AND SEE WHEN YOUR APPOINTMENT IS. CALL US WITH ANY QUESTIONS OR CONCERNS. . . Chronic Pain Syndr ome - pt [...] repacked and dressing applied. probiotics - culture [facility] or [facility] colon heatlh. . Gastroenteritis [...] refer to PT for mobility evaluation. . Dr. Alvarez in to see patient. [...] - Pt states that he went to [facility] for the abscess and they started him on an antibiotic and told him to go home and drain it himself. Axilla to lateral chest wall is erythematous with large area of induration. 3 open sites with thick purulent drainage noted - Dr. Alvarez in to see pt - will admit for IV antibiotics and further I&D. will refer to Dr. Edgar jordan will [...] stomach upset or stomach pain. . Chronic Pain Syndr ome - [...] of groin - continue with nystatin . Cellulitis bilater al axilla - The [...] toe - continue with wound care management. You need to see Dr. Holger SURESH. [...] is stable, monitor for acute changes. . Yeast/candidal of groin - rx for nystatin - monitor symptoms. call if not improving. Chronic Pain Syndrome - pt has chronic pain - has been maintained on current medications, has not sought out other medications, only uses PRN pain medications as directed, and understands the consequences of over-medication. lactobacillus - PROB IOTIC - take three [...]
--- OUTSIDE RECORDS SUMMARY | 2019-08-20 18:32 | XMS REPORT | CCD ---
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 Name Role Phone PP Unavailable CCM Unavailable Summary Purpose Interface Exchange Insurance Providers Payer name Policy type / Coverage type Covered constitution party ID Effective Begin Date Effective End Date [facility] Commercial Insurance [id number] 2017 Unknown Family history Father Diagnosis Age At Onset Hyperlipidemia Unknown Coronary Artery Disease Unknown Stroke Unknown Cancer Unknown Congestive heart failure Unknown Mother Diagnosis Age At Onset Hypertension Unknown kidney disease Unknown Cancer Unknown Stroke Unknown Hyperlipidemia Unknown Coronary Artery Disease Unknown Congestive heart failure Unknown Social History Social History Element Codes Description Effective Dates Tobacco history SNOMED CT: 281141367756110 Current some days smoker 09/21/2014 Allergies, Adverse [...] ICD-9: 300.00 ICD-10: F41.1 Active 04/21/2017 Unknown retirement (current) use of anticoagulants ICD-9: V58.61 ICD-10: [...] V67.59 ICD-10: Z09 Active 10/10/2015 Unknown Other [facility] ([facility] drug therapy ICD-9: V58.69 ICD-10: [...] disorder ICD-9: 300.00 ICD-10: F41.1 04/21/2017 Active retirement (current) use of anticoagulants ICD-9: V58.61 ICD-10: [...] ICD-9: V67.59 ICD-10: Z09 10/10/2015 Active 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 ICD-9: V58.69 ICD-10: [...] 7.5 mg-a cetaminophen 325 mg tablet RxNorm: 201862 1 Tablet(s) PO QID as needed 03/11/2018 04/09/2018 Active potassium chloride E R 20 mEq tablet,extended release RxNorm: 867230 Tablet(s) TAKE ONE TABLET BY MOUTH DAILY WHEN TAKING FUROSEMIDE NEEDED 03/05/2018 08/31/2018 Active gabapentin 300 mg ca psule RxNorm: 419700 TAKE ONE CAPSULE BY OUT THREE TIMES A DAY 03/04/2018 02/26/2019 Ac tive hydrocodone 7.5 mg-a cetaminophen 325 mg tablet RxNorm: 842930 1 Tablet(s) PO QID as needed 02/18/2018 03/10/2018 Inactive hydrocodone 7.5 mg-a cetaminophen 325 mg tablet RxNorm: 589869 1 Tablet(s) PO QID as needed 01/19/2018 02/17/2018 Inactive hydrocodone 7.5 mg-a cetaminophen 325 mg tablet RxNorm: 342802 1 Tablet(s) PO QID as needed 12/16/2017 01/14/2018 Inactive Pepcid 20 mg tablet RxNorm: 992792 Tablet(s) TAKE ONE TABLET BY MOUTH TWICE A DAY 12/08/2017 05/06/2018 Active hydrocodone 7.5 mg-a cetaminophen 325 mg tablet RxNorm: 231176 1 Tablet(s) PO QID as needed 11/18/2017 12/15/2017 Inactive gabapentin 300 mg ca psule RxNorm: 964036 Capsule(s) TAKE ONE C APSULE BY MOUTH THREE TIMES A DAY 11/11/2017 03/03/2018 Inactive gabapentin 300 mg ca psule RxNorm: 668303 TAKE ONE CAPSULE BY M OUTH THREE TIMES A DAY 11/10/2017 11/10/2017 Inactive hydrocodone 7.5 mg-a cetaminophen 325 mg tablet RxNorm: 992085 1 Tablet(s) PO QID as needed 10/19/2017 11/17/2017 Inactive hydrocodone 7.5 mg-a cetaminophen 325 mg tablet RxNorm: 886484 1 Tablet(s) PO QID as needed 09/16/2017 10/15/2017 Inactive doxycycline hyclate 100 mg capsule RxNorm: 7077189 1 Capsule(s) PO BID 08/28/2017 09/06/2017 In active hydrocodone 7.5 mg-a cetaminophen 325 mg tablet RxNorm: 308209 1 Tablet(s) PO QID as needed 08/21/2017 09/15/2017 Inactive Lexapro 10 mg tablet RxNorm: 706640 TAKE ONE TABLET BY MOUTH AT BEDTIME 08/02/2017 07/27/2018 Ac tive Zyrtec 10 mg tablet RxNorm: 4679316 1 Tablet(s) PO daily 07/20/2017 11/16/2017 Inactive hydrocodone 7.5 mg-a cetaminophen 325 mg tablet RxNorm: 976585 1 Tablet(s) PO QID as needed 07/20/2017 09/15/2017 Inactive furosemide 40 mg tablet RxNorm: 233951 Tablet(s) TAKE ONE TABLET BY MOUTH DAILY NEEDED FOR SWELLING 07/08/2017 01/03/2018 Inactive Pepcid 20 mg tablet RxNorm: 360254 TAKE ONE TABLET BY MOUTH TWICE A DAY 06/29/2017 11/25/2017 In active gabapentin 300 mg ca psule RxNorm: 604585 TAKE ONE CAPSULE BY M OUTH THREE TIMES A DAY 06/29/2017 10/26/2017 Inactive hydrocodone 7.5 mg-a cetaminophen 325 mg tablet RxNorm: 088106 1 Tablet(s) PO QID as needed 06/18/2017 07/17/2017 Inactive hydrocodone 7.5 mg-a cetaminophen 325 mg tablet RxNorm: 025675 1 Tablet(s) PO QID as needed 05/18/2017 06/16/2017 Inactive hydrocodone 7.5 mg-a cetaminophen 325 mg tablet RxNorm: 270236 1 Tablet(s) PO QID as needed 04/21/2017 05/17/2017 Inactive hyoscyamine 0.125 mg sublingual tablet RxNorm: 1416703 1 Tablet(s) SL TID a s needed 04/21/2017 04/25/2017 In active Lexapro 10 mg tablet RxNorm: 862028 1 Tablet(s) PO QHS 04/21/2017 07/19/2017 Inactive Flagyl 500 mg tablet RxNorm: 561587 1 Tablet(s) PO TID 04/07/2017 04/16/2017 Inactive Lexapro 10 mg tablet RxNorm: 947729 1 Tablet(s) PO QHS 04/07/2017 04/20/2017 Inactive hydrocodone 7.5 mg-a cetaminophen 325 mg tablet RxNorm: 868381 1 Tablet(s) PO QID as needed 03/24/2017 04/20/2017 Inactive allopurinol 100 mg t ablet RxNorm: 878733 TAKE ONE TABLET BY MO [facility] DAILY 03/10/2017 03/04/2018 In active hydrocodone 7.5 mg-a cetaminophen 325 mg tablet RxNorm: 236811 1 Tablet(s) PO QID as needed 02/11/2017 03/12/2017 Inactive gabapentin 300 mg ca psule RxNorm: 439272 TAKE ONE CAPSULE BY M [facility] THREE TIMES A DAY 02/02/2017 06/28/2017 Inactive Zofran ODT 4 mg disi ntegrating tablet RxNorm: 288790 1 Tablet(s) PO QID as needed nausea and vomitting 01/27/2017 No Stop Date Active hydrocodone 7.5 mg-a cetaminophen 325 mg tablet RxNorm: 202989 1 Tablet(s) PO QID as needed 01/13/2017 02/10/2017 Inactive potassium chloride E R 20 mEq tablet,extended release RxNorm: 450409 TAKE ONE TABLET BY MOUTH DAILY WHEN TAKING FUROSEMIDE NEEDED 01/12/2017 07/10/2017 Inactive furosemide 40 mg tablet RxNorm: 790021 TAKE ONE TABLET BY MOUTH DAILY NEEDED FOR SWELLING 01/12/2017 07/09/2017 Inactive promethazine 25 mg t ablet RxNorm: 897811 TAKE ONE TABLET BY [facility] THREE TIMES A DAY NEEDED FOR NAUSEA AND VOMITING 01/12/2017 01/31/2017 Inactive promethazine 25 mg t ablet RxNorm: 432632 1 Tablet(s) PO TID as needed nausea and vomitting 01/06/2017 01/11/2017 Inactive Lomotil 2.5 mg-0.025 mg tablet RxNorm: 9908689 1-2 Tablet(s) PO BID as needed diarrhea 01/06/2017 01/05/2017 Inactive Lomotil 2.5 mg-0.025 mg tablet RxNorm: 5941151 1-2 Tablet(s) PO BID as needed diarrhea 01/06/2017 01/07/2017 Inactive Pepcid 20 mg tablet RxNorm: 340967 1 Tablet(s) PO BID 12/19/2016 06/16/2017 Inactive Pepcid 20 mg tablet RxNorm: 381586 1 Tablet(s) PO BID 12/16/2016 12/18/2016 Inactive hydrocodone 7.5 mg-a cetaminophen 325 mg tablet RxNorm: 360137 1 Tablet(s) PO QID as needed 12/16/2016 01/12/2017 Inactive hydrocodone 7.5 mg-a cetaminophen 325 mg tablet RxNorm: 890873 1 Tablet(s) PO QID as needed 11/18/2016 12/15/2016 Inactive allopurinol 100 mg t ablet RxNorm: 714434 TAKE ONE TABLET BY [facility] DAILY 10/29/2016 02/25/2017 In active hydrocodone 7.5 mg-a cetaminophen 325 mg tablet RxNorm: 393134 1 Tablet(s) PO QID as needed 10/15/2016 11/13/2016 Inactive nystatin 100,000 uni t/gram topical cream RxNorm: 771760 1 Gram(s) TOP QID 10/15/2016 11/25/2016 In active nystatin 100,000 uni t/gram topical powder RxNorm: 091069 1 Gram(s) TOP TID TO GROIN OR AFFECTED AREA 10/14/2016 No Stop Date Active hydrocodone 7.5 mg-a cetaminophen 325 mg tablet RxNorm: 652529 1 Tablet(s) PO QID as needed 09/17/2016 10/14/2016 Inactive furosemide 40 mg tablet RxNorm: 053686 1 Tablet(s) PO daily as needed swelling 09/17/2016 01/11/2017 In active potassium chloride E R 20 mEq tablet,extended release RxNorm: 224541 1 Tablet(s) PO daily as needed take when taking a lasix pill 09/17/2016 01/11/2017 Inactive Levaquin 500 mg tablet RxNorm: 671577 1 Tablet(s) PO daily 09/17/2016 09/21/2016 Inactive hydrocodone 7.5 mg-a cetaminophen 325 mg tablet RxNorm: 903638 1 Tablet(s) PO QID as needed 08/14/2016 09/12/2016 Inactive cyclobenzaprine 5 mg tablet RxNorm: 518020 1 Tablet(s) PO TID as needed 07/25/2016 07/29/2016 In active cyclobenzaprine 5 mg tablet RxNorm: 372943 1 Tablet(s) PO TID as needed 07/25/2016 07/24/2016 In active hydrocodone 7.5 mg-a cetaminophen 325 mg tablet RxNorm: 293364 1 Tablet(s) PO QID as needed 07/21/2016 08/13/2016 Inactive warfarin 1 mg tablet RxNorm: 587378 TAKE ONE TABLET BY MOUTH EVERY EVENING 06/26/2016 08/04/2016 In active hydrocodone 7.5 mg-a cetaminophen 325 mg tablet RxNorm: 116555 1 Tablet(s) PO QID as needed 06/24/2016 07/20/2016 Inactive hydrocodone 5 mg-yanira taminophen 325 mg tablet RxNorm: 075364 1 Tablet(s) PO Q6 as needed for pain 06/09/2016 06/10/2016 Inactive warfarin 1 mg tablet RxNorm: 455882 TAKE ONE TABLET BY MOUTH EVERY EVENING 06/02/2016 06/21/2016 In active allopurinol 100 mg t ablet RxNorm: 122418 TAKE ONE TABLET BY [facility] DAILY 05/21/2016 10/17/2016 In active hydrocodone 7.5 mg-a cetaminophen 325 mg tablet RxNorm: 463463 1 Tablet(s) PO QID as needed 05/09/2016 06/07/2016 Inactive gabapentin 300 mg ca psule RxNorm: 239163 Capsule(s) TAKE ONE C APSULE BY MOUTH THREE TIMES A DAY 04/25/2016 11/09/2017 Inactive promethazine 25 mg t ablet RxNorm: 712404 TAKE ONE TABLET BY [facility] THREE TIMES A DAY NEEDED 2016 05/01/2016 Inactive warfarin 1 mg tablet RxNorm: 595105 TAKE ONE TABLET BY MOUTH EVERY EVENING 2016 05/31/2016 In active promethazine 25 mg t ablet RxNorm: 632086 1 Tablet(s) PO TID as needed 04/16/2016 04/21/2016 In active warfarin 1 mg tablet RxNorm: 606147 TAKE ONE TABLET BY MOUTH EVERY EVENING 02/13/2016 04/12/2016 In active magnesium oxide 400 mg tablet RxNorm: 448488 TAKE ONE TABLET BY [facility] TWICE A DAY 02/07/2016 01/01/2017 In active hydrocodone 5 mg-yanira taminophen 325 mg tablet RxNorm: 489039 1 Tablet(s) PO Q6 as needed for pain 01/21/2016 02/19/2016 Inactive warfarin 1 mg tablet RxNorm: 267725 TAKE ONE TABLET BY MOUTH EVERY EVENING 01/17/2016 02/05/2016 In active gabapentin 300 mg ca psule RxNorm: 393471 Capsule(s) TAKE ONE C APSULE BY MOUTH THREE TIMES A DAY 01/11/2016 04/24/2016 Inactive prednisone 10 mg tablet RxNorm: 473880 Tablet(s) PO UD 01/10/2016 03/08/2018 Inactive 60mg x2 days, then 50mg x2 days, then 40mg x2 days, 30mg x2 days, 20mg x2 days, 10mg x2days, 5mg every other day x 2 doses Kenalog 40 mg/mL cassius pension for injection RxNorm: 1238116 Milliliter(s) Inj 01/07/2016 01/07/2016 In active warfarin 1 mg tablet RxNorm: 820927 TAKE ONE TABLET BY MOUTH EVERY EVENING 01/01/2016 01/16/2016 In active hydrocodone 5 mg-yanira taminophen 325 mg tablet RxNorm: 553162 1 Tablet(s) PO Q6 as needed for pain 01/01/2016 01/15/2016 Inactive gabapentin 300 mg ca psule RxNorm: 009265 TAKE ONE CAPSULE BY M OUTH THREE TIMES A DAY 12/12/2015 01/10/2016 Inactive warfarin 5 mg tablet RxNorm: 561516 1 Tablet(s) PO daily 12/05/2015 No Stop Date Active warfarin 1 mg tablet RxNorm: 558035 TAKE ONE TABLET BY MOUTH EVERY EVENING 11/13/2015 12/22/2015 In active hydrocodone 5 mg-yanira taminophen 325 mg tablet RxNorm: 808752 1 Tablet(s) PO Q6 as needed for pain 10/26/2015 11/09/2015 Inactive allopurinol 100 mg t ablet RxNorm: 093650 1 Tablet(s) PO daily TAKE ONE TABLET BY MOUTH DAILY 10/18/2015 04/14/2016 Inactive hydrocodone 5 mg-yanira taminophen 325 mg tablet RxNorm: 330386 1 Tablet(s) PO Q6 as needed for pain 09/26/2015 10/10/2015 Inactive gabapentin 300 mg ca psule RxNorm: 819661 TAKE ONE CAPSULE BY M OUTH THREE TIMES A DAY 09/14/2015 12/11/2015 Inactive warfarin 1 mg tablet RxNorm: 155819 1 Tablet(s) PO QPM 09/14/2015 11/12/2015 Inactive hydrocodone 5 mg-yanira taminophen 325 mg tablet RxNorm: 603724 1 Tablet(s) PO Q6 as needed for pain 09/12/2015 09/25/2015 Inactive hydrocodone 5 mg-yanira taminophen 325 mg tablet RxNorm: 288541 1 Tablet(s) PO Q6 as needed for pain 08/22/2015 09/05/2015 Inactive Bactrim DS 800 mg-16 0 mg tablet RxNorm: 882668 1 Tablet(s) PO BID 08/20/2015 09/02/2015 Inactive magnesium oxide 400 mg tablet RxNorm: 132095 TAKE ONE TABLET BY MO [facility] TWICE A DAY 01/20/2015 01/14/2016 In active gabapentin 300 mg ca psule RxNorm: 066033 TAKE ONE CAPSULE BY M OUTH THREE TIMES A DAY 01/20/2015 05/19/2015 Inactive magnesium oxide 400 mg tablet RxNorm: 345039 1 Tablet(s) PO BID 01/17/2015 05/16/2015 Inactive gabapentin 300 mg ca psule RxNorm: 338392 1 Capsule(s) PO TID 01/17/2015 05/16/2015 Inactive allopurinol 100 mg t ablet RxNorm: 638057 TAKE ONE TABLET BY [facility] DAILY 10/18/2014 10/12/2015 In active Kenalog 40 mg/mL cassius pension for injection RxNorm: 5703710 1 Milliliter(s) Inj 09/21/2014 09/21/2014 In active allopurinol 100 mg t ablet RxNorm: 312991 1 Tablet(s) PO daily 09/21/2014 10/17/2014 Inactive gabapentin 300 mg ca psule RxNorm: 734247 1 Capsule(s) PO TID 09/12/2014 01/09/2015 Inactive gabapentin 300 mg ca psule RxNorm: 785142 1 Capsule(s) PO TID 09/12/2014 09/11/2014 Inactive magnesium oxide 400 mg tablet RxNorm: 579669 1 Tablet(s) PO BID 09/12/2014 01/09/2015 Inactive magnesium oxide 400 mg tablet RxNorm: 823655 1 Tablet(s) PO BID 09/12/2014 09/11/2014 Inactive lisinopril 5 mg tablet RxNorm: 533427 1 Tablet(s) PO daily No Start Date Active atorvastatin oral RxNorm: 02463 oral No Start Date Active Coreg 6.25 mg tablet RxNorm: 154656 1 Tablet(s) PO BID No Start Date Active Combivent Respimat 2 0 mcg-100 mcg/actuation solution for inhalation RxNorm: 3230365 1 Puff(s) INH as needed No Start Date Active Ventolin Refill 90 m cg/actuation aerosol inhaler RxNorm: 281109 2 INH as needed No Start Date Active Centrum Silver Women oral RxNorm: [address] art Date Active aspirin 81 mg capsul e,delayed release RxNorm: 098297 1 Capsule(s) PO daily No Start Date Active nystatin 100,000 uni t/gram topical powder RxNorm: 996217 1 Gram(s) TOP TID No Start Date 10/13/2016 Inactive warfarin 1 mg tablet RxNorm: 962051 oral No Start Date 09/13/2015 Inactive Pepcid 20 mg tablet RxNorm: 474080 1 Tablet(s) PO BID No Start Date 12/15/2016 Inactive Protonix 40 mg table t,delayed release RxNorm: 135071 1 Tablet(s) PO daily No Start Date 09/16/2016 Inactive warfarin 5 mg tablet RxNorm: 148793 1 Tablet(s) PO daily 1.5 tabs on Thu No Start Date 12/04/2015 Inactive minocycline 50 mg ca psule RxNorm: 207051 1 Capsule(s) PO BID o rdered by Dr. 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 ICD-10: Z79.01 [...] neoplasm ICD-10: Z09 ICD-9: V67.59 10/11/2015 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 ICD-10: Z79.899 ICD-9: V58.69 [...] Item Item Code Result Date Comp Metabolic Wzf751 NA 136 mEq/L 03/11/2018 Comp Metabolic Obo332 K 4.3 mEq/L 03/11/2018 Comp Metabolic Spo917 CL 101 mEq/L 03/11/2018 Comp Metabolic Ccr091 CO2 27.0 mEq/L 03/11/2018 Comp Metabolic Orv523 AN ION GAP 12 03/11/2018 Comp Metabolic Eai455 GL UCOSE 87 mg/dL 03/11/2018 Comp Metabolic Fkd337 Cr eat 1.0 mg/dL 03/11/2018 Comp Metabolic Tqa491 eG FR 79 ml/min/1.73m2 03/11 Comp Metabolic Yum283 BUN 12 mg/dL 03/11/2018 Comp Metabolic Hah404 B/ C Ratio 12.1 Ratio 03/11/2018 Comp Metabolic Pew194 CA LCIUM 8.9 mg/dL 03/11/2018 Comp Metabolic Lxg810 AL K PHOS 106 U/L 03/11/2018 Comp Metabolic Epu044 T(SGOT) 16 U/L 03/11/2018 Comp Metabolic Iqh814 AL T(SGPT) 11 U/L 03/11/2018 Comp Metabolic Aww121 BI LI T 0.4 mg/dL 03/11/2018 Comp Metabolic Lni941 AL BUMIN 3.8 g/dL 03/11/2018 Comp Metabolic Lza450 TP RO 6.5 g/dL 03/11/2018 Comp Metabolic Ofx840 GL OB 2.7 g/dL 03/11/2018 Comp Metabolic Elt341 A/ G Ratio 1.4 Ratio 03/11/2018 Comp Metabolic Jnm686 Os mo 271 mOsmo 03/11/2018 Cbc With Differential Ord2 WBC 10.11 K/ul 03/11/2018 Cbc With Differential Ord2 RBC 3.76 M/ul 03/11/2018 Cbc With Differential Ord2 HGB 11.2 g/dl 03/11/2018 Cbc With Differential Ord2 Neut% 56.2 % 03/11/2018 Cbc With Differential Ord2 HCT 34.0 % 03/11/2018 Cbc With Differential Ord2 Lymph% 28.4 % 03/11/2018 Cbc With Differential Ord2 MCV 90.4 fl 03/11/2018 Cbc With Differential Ord2 MCH 29.8 pg 03/11/2018 Cbc With Differential Ord2 [place]% 11.3 % 03/11/2018 Cbc With Differential Ord2 MCHC 32.9 pg 03/11/2018 Cbc With Differential Ord2 Eos% 3.9 % 03/11/2018 Cbc With Differential Ord2 PLT 205 K/ul 03/11/2018 Cbc With Differential Ord2 Baso% 0.2 % 03/11/2018 Cbc With Differential Ord2 Neut ABS# 5.69 K/ul 03/11/2018 Cbc With Differential Ord2 RDW 15.0 % 03/11/2018 Cbc With Differential Ord2 Lymph ABS# 2.87 K/ul 03/11/2018 Cbc With Differential Ord2 [place] ABS# 1.1 K/ul 03/11/2018 Cbc With Differential Ord2 Eos ABS# 0.4 K/ul 03/11/2018 Cbc With Differential Ord2 Baso ABS# 0.0 K/ul 03/11/2018 Pt Ldi4812 PT 31.3 seconds 03/11/2018 Pt Tkl5945 INR 3.1 03/11/2018 Pt Osh4715 Low Intensity - 1.5-2.0 03/11/2018 Pt Zyp4784 Mod intensity - 2.0-3.0 03/11/2018 Pt Fjs8487 Hi intensity - 3.0-4.0 03/11/2018 Tsh Ord6 TSH (3rd IS) 2.01 uIU/mL 03/11/2018 Shiga Toxin 1 & 2 Eia Stool [id number] SHIGA TOXIN 1: NEGATIVE 04/12/2017 Shiga Toxin 1 & 2 Eia Stool [id number] SHIGA TOXIN 2: NEGATIVE 04/12/2017 Culture Stool [id number] STO OL CULTURE SEE NOTES 04/12/2017 Clostridium Diff Tox A/B Ftq790 Cdiff Negative 04/09/2017 Pt Adg1583 PT 64.8 seconds 01/10/2016 Pt Lpq3890 INR 8.6 01/10/2016 Pt Ckk5483 Low Intensity - 1.5-2.0 01/10/2016 Pt Rin9481 Mod intensity - 2.0-3.0 01/10/2016 Pt Qbo1001 Hi intensity - 3.0-4.0 01/10/2016 Pt Sct7019 PT 32.1 seconds 11/01/2014 Pt Scf2875 INR 3.2 11/01/2014 Pt Ewt8743 Low Intensity - 1.5-2.0 11/01/2014 Pt Zfn5267 Mod intensity - 2.0-3.0 11/01/2014 Pt Doj0623 Hi intensity - 3.0-4.0 11/01/2014 Pt Qcx9718 PT 30.2 seconds 10/03/2014 Pt Ova9794 INR 3.0 10/03/2014 Pt Ens0627 Low Intensity - 1.5-2.0 10/03/2014 Pt Xwc8799 Mod intensity - 2.0-3.0 10/03/2014 Pt Xaj0093 Hi intensity - 3.0-4.0 10/03/2014 D-Dimer D-DIMER 475 NG/ML 09/25/2014 D-Dimer COMMENT 09/25/2014 Magnesium Ord90 Mag 1.1 Result Verified By Repeat Analysis mg/dL 09/22/2014 Pt Qpd6321 PT 32.0 seconds 09/22/2014 Pt Cra2826 INR 3.2 09/22/2014 Pt Eua5491 Low Intensity - 1.5-2.0 09/22/2014 Pt Ndg8878 Mod intensity - 2.0-3.0 09/22/2014 Pt Qnx1613 Hi intensity - 3.0-4.0 09/22/2014 Comp Metabolic Rhf545 NA 137 mEq/L 09/22/2014 Comp Metabolic Dco856 K 4.2 mEq/L 09/22/2014 Comp Metabolic Wmr898 CL 102 mEq/L 09/22/2014 Comp Metabolic Fcq488 CO2 25.0 mEq/L 09/22/2014 Comp Metabolic Gfd598 AN ION GAP 14 09/22/2014 Comp Metabolic Gpx322 GL UCOSE 94 mg/dL 09/22/2014 Comp Metabolic Ebu294 Cr eat 0.8 mg/dL 09/22/2014 Comp Metabolic Xpw140 eG FR 102 ml/min/1.73m2 09/06 Comp Metabolic Meg673 BUN 15 mg/dL 09/22/2014 Comp Metabolic Okp313 B/ C Ratio 18.8 Ratio 09/22/2014 Comp Metabolic Fjn480 CA LCIUM 9.4 mg/dL 09/22/2014 Comp Metabolic Ppt388 AL K PHOS 65 U/L 09/22/2014 Comp Metabolic Dtf965 T(SGOT) 15 U/L 09/22/2014 Comp Metabolic Gph760 AL T(SGPT) 8 U/L 09/22/2014 Comp Metabolic Sag547 BI LI T 0.4 mg/dL 09/22/2014 Comp Metabolic Yvc012 AL BUMIN 4.0 g/dL 09/22/2014 Comp Metabolic Agy112 TP RO 6.8 g/dL 09/22/2014 Comp Metabolic Qyl811 GL OB 2.8 g/dL 09/22/2014 Comp Metabolic Tam949 A/ G Ratio 1.4 Ratio 09/22/2014 Comp Metabolic Yjn740 Os mo 274 mOsmo 09/22/2014 C-Reactive Protein [...] Procedure Codes Date THER/PROPH/DIAG INJ SC/IM CPT-4: 91367 08/28/2017 ROCEPHIN, PER 250 MG CPT-4: J0696 08/28/2017 TOBACCO-USE DIGITAL 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 3-[address]: 898735636 CPT-4: G0436 01/27/2017 TOBACCO-USE DIGITAL ASSET COORDINATOR 3-[address]: 761540417 CPT-4: G0436 11/25/2016 TOBACCO-USE DIGITAL ASSET COORDINATOR 3-[address]: 613120894 CPT-4: G0436 10/15/2016 TOBACCO-USE DIGITAL ASSET COORDINATOR 3-[address]: 230942875 CPT-4: G0436 09/17/2016 THER/PROPH/DIAG INJ SC/IM CPT-4: 02729 01/07/2016 TRIAMCINOLONE ACET I [place] NOS CPT-4: J3301 01/07/2016 TRIAMCINOLONE ACET I [place] NOS CPT-4: J3301 09/21/2014 THER/PROPH/DIAG INJ SC/IM CPT-4: 14962 09/21/2014 Vital Signs Date Vital 03/11/2018 Blood Pressure 1: 134/82 Code: 8480-6 BMI: 32.8 Code: 72309-2 Heart Rate 1: 65 bpm Height: 5'3" SpO2: 96% Weight: 185 lbs 08/28/2017 Blood Pressure 1: 138/72 Code: 8480-6 Heart Rate 1: 80 bpm Height: SpO2: 98% Weight: 07/20/2017 Blood Pressure 1: 134/76 Code: 8480-6 BMI: 29.6 Code: 89296-8 Heart Rate 1: 82 bpm Height: 5'3" [...] 1: 128/78 Code: 8480-6 BMI: 33.3 Code: 12846-9 Heart Rate 1: 72 bpm Height: 5'3" SpO2: 97% Weight: 188 lbs 01/10/2016 Blood Pressure 1: 132/76 Code: 8480-6 BMI: 33.1 Code: 70785-4 Heart Rate 1: 72 bpm Height: 5'3" SpO2: 97% Weight: 187 lbs 12/25/2015 Blood Pressure 1: 154/82 Code: 8480-6 BMI: 33.1 Code: 85485-1 Heart Rate 1: 72 bpm Height: 5'3" SpO2: 97% Weight: 187 lbs 10/11/2015 Blood Pressure 1: 110/62 Code: 8480-6 BMI: 34.7 Code: 81855-5 Heart Rate 1: 70 bpm Height: 5'3" SpO2: 93% Weight: 196 lbs 08/24/2015 Blood Pressure 1: 132/62 Code: 8480-6 BMI: 35.3 Code: 51977-7 Heart Rate 1: 62 bpm Height: 5'3" SpO2: 93% Weight: 199 lbs 08/20/2015 Blood Pressure 1: 140/68 Code: 8480-6 BMI: 35.3 Code: 83529-5 Heart Rate 1: 74 bpm Height: 5'3" SpO2: 96% Weight: 199 lbs 12/28/2014 Blood Pressure 1: 130/72 Code: 8480-6 BMI: 33.1 Code: 87763-4 Heart Rate 1: 60 bpm Height: 5'3" SpO2: 97% Weight: 187 lbs 10/31/2014 Blood Pressure 1: 118/72 Code: 8480-6 BMI: 31.2 Code: 81533-3 Heart Rate 1: 58 bpm Height: 5'3" SpO2: 98% Weight: 176 lbs 10/02/2014 Blood Pressure 1: 138/74 Code: 8480-6 BMI: 30.6 Code: 43247-5 Heart Rate 1: 72 bpm Height: 5'3" Weight: 173 lbs 09/21/2014 Blood Pressure 1: 138/72 Code: 8480-6 BMI: 30.5 Code: 38833-6 Heart Rate 1: 60 bpm Height: 5'3" [...] daily 12/25/2015 None Hospital Follow Up _ [facility] er: diverticulitis 10/11/2015 None Hospital [...] Encounters Encounter Performer Loca tion Codes Date [id number] EST. 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 PATIENT, LEVEL III Diagnosis: Cellulitis of left axilla[ICD10: L03.112] Diagnosis: Cellulitis of right axilla[ICD10: L03.111] Rox Alvarez MD, [facility] CPT-4: 89570 08/28/2017 [id number] EST. 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 PATIENT, LEVEL IV Diagnosis: Generalized anxiety disorder[ICD10: F41.1] Diagnosis: Major depressive disorder, single episode, moderate[ICD10: F32.1] Diagnosis: Diarrhea, unspecified[ICD10: R19.7] Rox Alvarez MD, [facility] CPT-4: 95352 04/21/2017 [id number] EST. PATIENT, LEVEL IV Diagnosis: Generalized anxiety disorder[ICD10: F41.1] Diagnosis: Major depressive disorder, single episode, moderate[ICD10: F32.1] Diagnosis: Nausea[ICD10: R11.0] Diagnosis: Diarrhea, unspecified[ICD10: R19.7] Rox Alvarez MD, [facility] CPT-4: 18037 04/07/2017 ([id number]) [id number] EST. P ATIENT, LEVEL IV Diagnosis: Essential (primary) hypertension[ICD10: I10] Diagnosis: Nausea[ICD10: R11.0] Diagnosis: Other fecal abnormalities[ICD10: R19.5] Diagnosis: Tobacco use[ICD10: Z72.0] Selena Alvarez MD, [facility] CPT-4: 54414 01/27/2017 ([id number]) [id number] EST. P ATIENT, LEVEL III Diagnosis: Essential (primary) hypertension[ICD10: I10] Diagnosis: Chronic obstructive pulmonary disease, unspecified[ICD10: J44.9] Diagnosis: Rash and other nonspecific skin eruption[ICD10: R21] Selena Alvarez MD, [facility] CPT-4: 54338 11/25/2016 ([id number]) 99245 EST. P ATIENT, LEVEL III Diagnosis: Other sites of candidiasis[ICD10: B37.89] Selena Alvarez MD, [facility] CPT-4: 23381 10/15/2016 ([id number]) 62156 EST. P ATIENT, LEVEL IV Diagnosis: Essential (primary) hypertension[ICD10: I10] Diagnosis: Urinary tract infection, site not specified[ICD10: N39.0] Diagnosis: Localized edema[ICD10: R60.0] Selena Alvarez MD, [facility] CPT-4: 41186 09/17/2016 95119 EST. 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 PATIENT, LEVEL III Diagnosis: Other specified bacterial intestinal infections[ICD10: A04.8] Rox Alvarez MD, [facility] CPT-4: 10441 04/16/2016 94066 EST. PATIENT, LEVEL II Diagnosis: Pain in right foot[ICD10: M79.671] Rox Alvarez MD, [facility] CPT-4: 43144 01/21/2016 13518 EST. PATIENT, LEVEL III Diagnosis: Encounter for therapeutic drug level monitoring[ICD10: Z51.81] Diagnosis: Rash and other nonspecific skin eruption[ICD10: R21] Rox Alvarez MD, [facility] CPT-4: 36885 01/10/2016 45730 EST. PATIENT, LEVEL III Diagnosis: Rash and other nonspecific skin eruption[ICD10: R21] Rox Alvarez MD, [facility] CPT-4: 57642 01/07/2016 ([id number]) Miscellaneou s no charge Diagnosis: Cutaneous abscess of left axilla[ICD10: L02.412] Rox Alvarez MD, [facility] CPT-4: 17578 01/02/2016 ([id number]) Miscellaneou s no charge Diagnosis: Cutaneous abscess of left axilla[ICD10: L02.412] Rox Alvarez MD, [facility] CPT-4: 89697 01/01/2016 ([id number]) Miscellaneou s no charge Diagnosis: Cutaneous abscess of left axilla[ICD10: L02.412] Rox Alvarez MD, [facility] CPT-4: 26578 12/31/2015 ([id number]) Patient adm itted to the hospital from clinic (NO CHARGE) Diagnosis: Cutaneous abscess of left axilla[ICD10: L02.412] Rox Alvarez MD, [facility] CPT-4: 66076U 12/25/2015 39934 EST. PATIENT, LEVEL III Diagnosis: Encounter for follow-up examination after completed treatment for conditions other than malignant neoplasm[ICD10: Z09] Diagnosis: Diverticulitis of intestine, part unspecified, without perforation or abscess with bleeding[ICD10: K57.93] Diagnosis: Cellulitis of left toe[ICD10: L03.032] Diagnosis: Other obesity due to excess calories[ICD10: E66.09] Diagnosis: Other [facility] drug therapy[ICD10: Z79.899] Rox Alvarez MD, [facility] CPT-4: 42426 10/11/2015 ([id number]) Miscellaneou s no charge Diagnosis: Encounter for therapeutic drug level monitoring[ICD10: Z51.81] Diagnosis: Other acute osteomyelitis, left ankle and foot[ICD10: M86.172] Rox Alvarez MD, [facility] CPT-4: 78922 08/24/2015 28677 EST. PATIENT, LEVEL IV Diagnosis: Cellulitis of left toe[ICD10: L03.032] Rox Alvarez MD, [facility] CPT-4: 24041 08/20/2015 31082 EST. PATIENT, LEVEL III Diagnosis: Essential (primary) hypertension[ICD10: I10] Diagnosis: Peripheral vascular disease, unspecified[ICD10: I73.9] Diagnosis: Dermatitis, unspecified[ICD10: L30.9] Rox Alvarez MD, [facility] CPT- 4: 34563 12/28/2014 ([id number]) 05087 EST. P ATIENT, LEVEL III Diagnosis: ESSENTIAL HYPERTENSION[ICD9: 401.9] Diagnosis: PAD (peripheral artery disease)[ICD9: 443.9] Diagnosis: Anticoagulated on Coumadin[ICD9: V58.83] Emy Alvarez MD, [facility] CPT-4: 93350 10/31/2014 ([id number]) 23812 EST. P ATIENT, LEVEL III Diagnosis: PAD (peripheral artery disease)[ICD9: 443.9] Diagnosis: Anticoagulated on Coumadin[ICD9: V58.83] Diagnosis: SCLERITIS[ICD9: 379.00] Diagnosis: ESSENTIAL HYPERTENSION[ICD9: 401.9] Selena Alvarez MD, [facility] CPT- 4: 67865 10/02/2014 ([id number]) OFFICE [facility] - LEVEL 4 Diagnosis: GOUT[ICD9: 274.9] Diagnosis: COPD (chronic obstructive pulmonary disease)[ICD9: 496] Diagnosis: PAD (peripheral artery disease)[ICD9: 443.9] Diagnosis: ESSENTIAL HYPERTENSION[ICD9: 401.9] [facility] CPT- 4: 47513 09/21/2014 Plan of Care Planned Activity Notes [...] continue PT 03/11/2018 Appointment: Rox Luciano WPtel: [address] [place], [place] [phone] (15 min) Moderate 03/11/2018 Patient Education: Patient Medication Summary Completed 03/11/2018 Appointment: Rox Luciano WPtel: [address] [place], [place] [phone] (30 min) Complex 11/17/2017 Visit Plan: Cellulitis [...] warmth, discharge. 08/28/2017 Appointment: Rox Luciano WPtel: [address] [place], [place] [phone] (30 min) Complex 08/28/2017 Patient Education: Patient [...] ADLs independently. 07/20/2017 Appointment: Rox Luciano WPtel: [address] [place], [place] [id number] (30 min) Complex 07/20/2017 Patient Education: Patient Medication Summary Completed 07/20/2017 Referral: Stephanie Silva WPtel: Referral Initiated 05/04/2017 Care Plan: Referral Order SNOMED-CT : [id number] Pending 04/30/2017 Visit Plan: Chronic Depression and [...] stomach pain. 04/21/2017 Appointment: Rox Luciano WPtel: [address] [place], [place] [id number] [place] (30 min) Complex 04/21/2017 Patient Education: Patient [...] stomach pain. 04/07/2017 Appointment: Rox Luciano WPtel: [facility] (30 min) Complex 04/07/2017 Patient Education: Patient Medication Summary Completed 04/07/2017 Appointment: Selena Alvarez WPtel: [facility]5 [facility] (15 min) Moderate 02/26/2017 Visit Plan: Hypertension [...] not improving. 01/27/2017 Appointment: Selena Alvarez WPtel: [address] [facility] (15 min) Moderate 01/27/2017 [...] nystatin 11/25/2016 Appointment: Selena Alvarez WPtel: [phone] [facility] (15 min) Moderate 11/25/2016 Appointment: Selena Alvarez WPtel: [phone] [facility] (15 min) Moderate 11/25/2016 Patient Education: [...] Completed 10/15/2016 Appointment: Rox Luciano WPtel: [phone] [facility] (30 min) Complex 09/18/2016 Visit Plan: Hypertension [...] mobility evaluation. 08/14/2016 Appointment: Rox Luciano WPtel: [facility] (30 min) Complex 08/14/2016 Patient Education: Patient [...] pain. 04/16/2016 Appointment: Rox Luciano [facility]Ptel[phone] [facility] (15 min) Moderate 04/16/2016 Patient Education: Patient Medication Summary Completed 04/16/2016 Patient Education: Smoking and Tobacco Addiction Completed 04/16/2016 Referral: Dr Arboleda Referral Completed 02/14/2016 Care Plan: Referral Order SNOMED-CT : [id number] Pending 01/29/2016 Visit Plan: Right foot pain [...] warmth, discharge. 01/10/2016 Appointment: Rox Luciano WPtel: [address] [place], [place] [phone] (30 min) [facility] 01/10/2016 Patient Education: Patient Medication Summary Completed [...] further I&D. 12/25/2015 Appointment: Emy Westbrook WPtel: [phone] [place] (15 min) Moderate 12/25/2015 Patient Education: [...] care management. 10/11/2015 Appointment: Rox Luciano WPtel: [facility]6 [facility] (30 min) Complex 10/11/2015 Patient Education: Patient Medication Summary Completed 10/11/2015 Patient Education: Smoking and Tobacco Addiction Completed 10/11/2015 Patient Education: Obesity Completed 10/11/2015 Referral: Gavino Navarro they are g oing to call if they get him in before if not we will call Dr shook Initiated 09/27/2015 Appointment: Emy Westbrook WPtel: [address] [place], [place] [phone] (15 min) Moderate 08/24/2015 Patient Education: Patient Medication Summary Completed 08/24/2015 Patient Education: Smoking and Tobacco Addiction Completed 08/24/2015 Patient Education: Patient Medication Summary Completed 08/23/2015 Appointment: Emy Westbrook WPtel: [phone] (30 min) Complex 08/22/2015 Referral: [facility] WPtel: 1 [facility] Referral Initiated 08/22/2015 Visit Plan: Pt on [...] Hypertension Completed 12/28/2014 Appointment: Selena Alvarez WPtel: [facility] Follow up 12/20/2014 Visit Plan: Hypertension - [...] 09/21/2014 Care Plan: Referral Order SNOMED-CT : [id number] Ordered 09/21/2014 Appointment: Selena Alvarez WPtel: [facility] [place] ([place] New Patient 09/20/2014 Referral: Martinez Wren WPtel: [phone] [facility] [place] Referral Initiated Referral: Gavino Navarro Referral Initiated Referral: [facility] [place] Referral Initiated Referral: Dr [...] evaluation. You need to see Dr. Holger SRUESH. We will call and schedule an appointment. [...] IV antibiotics and further I&D. . Chronic Depression and anxiety - the [...] stomach upset or stomach pain. . Pt on chronic anti coagulation. Dr. [...]
--- OUTSIDE RECORDS SUMMARY | 2019-08-20 18:33 | XMS REPORT | CCD ---
Author Author Bony Alvarez Organization Selena Alvarez MD, 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 Role Phone PP Unavailable CCM Unavailable Summary Purpose Interface Exchange Insurance Providers Payer name Policy type / Coverage type Covered constitution party ID Effective Begin Date Effective End Date [facility] Commercial Insurance [id number] 2017 Unknown Family history Father Diagnosis Age At Onset Hyperlipidemia Unknown Coronary Artery Disease Unknown Stroke Unknown Cancer Unknown Congestive heart failure Unknown Mother Diagnosis Age At Onset Hypertension Unknown kidney disease Unknown Cancer Unknown Stroke Unknown Hyperlipidemia Unknown Coronary Artery Disease Unknown Congestive heart failure Unknown Social History Social History Element Codes Description Effective Dates Tobacco history SNOMED CT: 208977652976843 Current some days smoker 09/21/2014 Allergies, Adverse [...] V67.59 ICD-10: Z09 Active 10/10/2015 Unknown Other senior living (cur rent) drug therapy ICD-9: V58.69 ICD-10: [...] disorder ICD-9: 300.00 ICD-10: F41.1 04/21/2017 Active group home (current) use of anticoagulants ICD-9: [...] 7.5 mg-a cetaminophen 325 mg tablet RxNorm: 545821 1 Tablet(s) PO QID as needed 03/11/2018 04/09/2018 Active potassium chloride E R 20 mEq tablet,extended release RxNorm: 621566 Tablet(s) TAKE ONE TABLET BY MOUTH DAILY WHEN TAKING FUROSEMIDE NEEDED 03/05/2018 08/31/2018 Active gabapentin 300 mg ca psule RxNorm: 351730 TAKE ONE CAPSULE BY OUT THREE TIMES A DAY 03/04/2018 02/26/2019 Ac tive hydrocodone 7.5 mg-a cetaminophen 325 mg tablet RxNorm: 062411 1 Tablet(s) PO QID as needed 02/18/2018 03/10/2018 Inactive hydrocodone 7.5 mg-a cetaminophen 325 mg tablet RxNorm: 235643 1 Tablet(s) PO QID as needed 01/19/2018 02/17/2018 Inactive hydrocodone 7.5 mg-a cetaminophen 325 mg tablet RxNorm: 587629 1 Tablet(s) PO QID as needed 12/16/2017 01/14/2018 Inactive Pepcid 20 mg tablet RxNorm: 888272 Tablet(s) TAKE ONE TABLET BY MOUTH TWICE A DAY 12/08/2017 05/06/2018 Active hydrocodone 7.5 mg-a cetaminophen 325 mg tablet RxNorm: 606307 1 Tablet(s) PO QID as needed 11/18/2017 12/15/2017 Inactive gabapentin 300 mg ca psule RxNorm: 898823 Capsule(s) TAKE ONE C APSULE BY MOUTH THREE TIMES A DAY 11/11/2017 03/03/2018 Inactive gabapentin 300 mg ca psule RxNorm: 370633 TAKE ONE CAPSULE BY M OUTH THREE TIMES A DAY 11/10/2017 11/10/2017 Inactive hydrocodone 7.5 mg-a cetaminophen 325 mg tablet RxNorm: 121523 1 Tablet(s) PO QID as needed 10/19/2017 11/17/2017 Inactive hydrocodone 7.5 mg-a cetaminophen 325 mg tablet RxNorm: 330422 1 Tablet(s) PO QID as needed 09/16/2017 10/15/2017 Inactive doxycycline hyclate 100 mg capsule RxNorm: 9296136 1 Capsule(s) PO BID 08/28/2017 09/06/2017 In active hydrocodone 7.5 mg-a cetaminophen 325 mg tablet RxNorm: 531074 1 Tablet(s) PO QID as needed 08/21/2017 09/15/2017 Inactive Lexapro 10 mg tablet RxNorm: 690422 TAKE ONE TABLET BY MOUTH AT BEDTIME 08/02/2017 07/27/2018 Ac tive Zyrtec 10 mg tablet RxNorm: 0982297 1 Tablet(s) PO daily 07/20/2017 11/16/2017 Inactive hydrocodone 7.5 mg-a cetaminophen 325 mg tablet RxNorm: 637608 1 Tablet(s) PO QID as needed 07/20/2017 09/15/2017 Inactive furosemide 40 mg tablet RxNorm: 523382 Tablet(s) TAKE ONE TABLET BY MOUTH DAILY NEEDED FOR SWELLING 07/08/2017 01/03/2018 Inactive Pepcid 20 mg tablet RxNorm: 776617 TAKE ONE TABLET BY MOUTH TWICE A DAY 06/29/2017 11/25/2017 In active gabapentin 300 mg ca psule RxNorm: 002712 TAKE ONE CAPSULE BY M OUTH THREE TIMES A DAY 06/29/2017 10/26/2017 Inactive hydrocodone 7.5 mg-a cetaminophen 325 mg tablet RxNorm: 989021 1 Tablet(s) PO QID as needed 06/18/2017 07/17/2017 Inactive hydrocodone 7.5 mg-a cetaminophen 325 mg tablet RxNorm: 051263 1 Tablet(s) PO QID as needed 05/18/2017 06/16/2017 Inactive hydrocodone 7.5 mg-a cetaminophen 325 mg tablet RxNorm: 827292 1 Tablet(s) PO QID as needed 04/21/2017 05/17/2017 Inactive hyoscyamine 0.125 mg sublingual tablet RxNorm: 2610339 1 Tablet(s) SL TID a s needed 04/21/2017 04/25/2017 In active Lexapro 10 mg tablet RxNorm: 138928 1 Tablet(s) PO QHS 04/21/2017 07/19/2017 Inactive Flagyl 500 mg tablet RxNorm: 365113 1 Tablet(s) PO TID 04/07/2017 04/16/2017 Inactive Lexapro 10 mg tablet RxNorm: 951349 1 Tablet(s) PO QHS 04/07/2017 04/20/2017 Inactive hydrocodone 7.5 mg-a cetaminophen 325 mg tablet RxNorm: 778509 1 Tablet(s) PO QID as needed 03/24/2017 04/20/2017 Inactive allopurinol 100 mg t ablet RxNorm: 278754 TAKE ONE TABLET BY MO [facility] DAILY 03/10/2017 03/04/2018 In active hydrocodone 7.5 mg-a cetaminophen 325 mg tablet RxNorm: 090588 1 Tablet(s) PO QID as needed 02/11/2017 03/12/2017 Inactive gabapentin 300 mg ca psule RxNorm: 817509 TAKE ONE CAPSULE BY M [facility] THREE TIMES A DAY 02/02/2017 06/28/2017 Inactive Zofran ODT 4 mg disi ntegrating tablet RxNorm: 417120 1 Tablet(s) PO QID as needed nausea and vomitting 01/27/2017 No Stop Date Active hydrocodone 7.5 mg-a cetaminophen 325 mg tablet RxNorm: 880266 1 Tablet(s) PO QID as needed 01/13/2017 02/10/2017 Inactive potassium chloride E R 20 mEq tablet,extended release RxNorm: 240802 TAKE ONE TABLET BY MOUTH DAILY WHEN TAKING FUROSEMIDE NEEDED 01/12/2017 07/10/2017 Inactive furosemide 40 mg tablet RxNorm: 107838 TAKE ONE TABLET BY MOUTH DAILY NEEDED FOR SWELLING 01/12/2017 07/09/2017 Inactive promethazine 25 mg t ablet RxNorm: 795918 TAKE ONE TABLET BY [facility] THREE TIMES A DAY NEEDED FOR NAUSEA AND VOMITING 01/12/2017 01/31/2017 Inactive promethazine 25 mg t ablet RxNorm: 219890 1 Tablet(s) PO TID as needed nausea and vomitting 01/06/2017 01/11/2017 Inactive Lomotil 2.5 mg-0.025 mg tablet RxNorm: 1637223 1-2 Tablet(s) PO BID as needed diarrhea 01/06/2017 01/05/2017 Inactive Lomotil 2.5 mg-0.025 mg tablet RxNorm: 4080193 1-2 Tablet(s) PO BID as needed diarrhea 01/06/2017 01/07/2017 Inactive Pepcid 20 mg tablet RxNorm: 222318 1 Tablet(s) PO BID 12/19/2016 06/16/2017 Inactive Pepcid 20 mg tablet RxNorm: 734599 1 Tablet(s) PO BID 12/16/2016 12/18/2016 Inactive hydrocodone 7.5 mg-a cetaminophen 325 mg tablet RxNorm: 701427 1 Tablet(s) PO QID as needed 12/16/2016 01/12/2017 Inactive hydrocodone 7.5 mg-a cetaminophen 325 mg tablet RxNorm: 442578 1 Tablet(s) PO QID as needed 11/18/2016 12/15/2016 Inactive allopurinol 100 mg t ablet RxNorm: 552104 TAKE ONE TABLET BY [facility] DAILY 10/29/2016 02/25/2017 In active hydrocodone 7.5 mg-a cetaminophen 325 mg tablet RxNorm: 706985 1 Tablet(s) PO QID as needed 10/15/2016 11/13/2016 Inactive nystatin 100,000 uni t/gram topical cream RxNorm: 464859 1 Gram(s) TOP QID 10/15/2016 11/25/2016 In active nystatin 100,000 uni t/gram topical powder RxNorm: 593077 1 Gram(s) TOP TID TO GROIN OR AFFECTED AREA 10/14/2016 No Stop Date Active hydrocodone 7.5 mg-a cetaminophen 325 mg tablet RxNorm: 337281 1 Tablet(s) PO QID as needed 09/17/2016 10/14/2016 Inactive furosemide 40 mg tablet RxNorm: 230904 1 Tablet(s) PO daily as needed swelling 09/17/2016 01/11/2017 In active potassium chloride E R 20 mEq tablet,extended release RxNorm: 304598 1 Tablet(s) PO daily as needed take when taking a lasix pill 09/17/2016 01/11/2017 Inactive Levaquin 500 mg tablet RxNorm: 433422 1 Tablet(s) PO daily 09/17/2016 09/21/2016 Inactive hydrocodone 7.5 mg-a cetaminophen 325 mg tablet RxNorm: 377137 1 Tablet(s) PO QID as needed 08/14/2016 09/12/2016 Inactive cyclobenzaprine 5 mg tablet RxNorm: 988352 1 Tablet(s) PO TID as needed 07/25/2016 07/29/2016 In active cyclobenzaprine 5 mg tablet RxNorm: 450659 1 Tablet(s) PO TID as needed 07/25/2016 07/24/2016 In active hydrocodone 7.5 mg-a cetaminophen 325 mg tablet RxNorm: 951264 1 Tablet(s) PO QID as needed 07/21/2016 08/13/2016 Inactive warfarin 1 mg tablet RxNorm: 988851 TAKE ONE TABLET BY MOUTH EVERY EVENING 06/26/2016 08/04/2016 In active hydrocodone 7.5 mg-a cetaminophen 325 mg tablet RxNorm: 316537 1 Tablet(s) PO QID as needed 06/24/2016 07/20/2016 Inactive hydrocodone 5 mg-yanira taminophen 325 mg tablet RxNorm: 800882 1 Tablet(s) PO Q6 as needed for pain 06/09/2016 06/10/2016 Inactive warfarin 1 mg tablet RxNorm: 977510 TAKE ONE TABLET BY MOUTH EVERY EVENING 06/02/2016 06/21/2016 In active allopurinol 100 mg t ablet RxNorm: 794025 TAKE ONE TABLET BY MO [facility] DAILY 05/21/2016 10/17/2016 In active hydrocodone 7.5 mg-a cetaminophen 325 mg tablet RxNorm: 284311 1 Tablet(s) PO QID as needed 05/09/2016 06/07/2016 Inactive gabapentin 300 mg ca psule RxNorm: 581521 Capsule(s) TAKE ONE C APSULE BY MOUTH THREE TIMES A DAY 04/25/2016 11/09/2017 Inactive promethazine 25 mg t ablet RxNorm: 709414 TAKE ONE TABLET BY [facility] THREE TIMES A DAY NEEDED 2016 05/01/2016 Inactive warfarin 1 mg tablet RxNorm: 558877 TAKE ONE TABLET BY MOUTH EVERY EVENING 2016 05/31/2016 In active promethazine 25 mg t ablet RxNorm: 947511 1 Tablet(s) PO TID as needed 04/16/2016 04/21/2016 In active warfarin 1 mg tablet RxNorm: 992230 TAKE ONE TABLET BY MOUTH EVERY EVENING 02/13/2016 04/12/2016 In active magnesium oxide 400 mg tablet RxNorm: 749784 TAKE ONE TABLET BY [facility] TWICE A DAY 02/07/2016 01/01/2017 In active hydrocodone 5 mg-yanira taminophen 325 mg tablet RxNorm: 958411 1 Tablet(s) PO Q6 as needed for pain 01/21/2016 02/19/2016 Inactive warfarin 1 mg tablet RxNorm: 965405 TAKE ONE TABLET BY MOUTH EVERY EVENING 01/17/2016 02/05/2016 In active gabapentin 300 mg ca psule RxNorm: 788489 Capsule(s) TAKE ONE C APSULE BY MOUTH THREE TIMES A DAY 01/11/2016 04/24/2016 Inactive prednisone 10 mg tablet RxNorm: 989413 Tablet(s) PO UD 01/10/2016 03/08/2018 Inactive 60mg x2 days, then 50mg x2 days, then 40mg x2 days, 30mg x2 days, 20mg x2 days, 10mg x2days, 5mg every other day x 2 doses Kenalog 40 mg/mL [facility] pension for injection RxNorm: 6856003 Milliliter(s) Inj 01/07/2016 01/07/2016 In active warfarin 1 mg tablet RxNorm: 388530 TAKE ONE TABLET BY MOUTH EVERY EVENING 01/01/2016 01/16/2016 In active hydrocodone 5 mg-yanira taminophen 325 mg tablet RxNorm: 270340 1 Tablet(s) PO Q6 as needed for pain 01/01/2016 01/15/2016 Inactive gabapentin 300 mg ca psule RxNorm: 995103 TAKE ONE CAPSULE BY M OUT[facility] THREE TIMES A DAY 12/12/2015 01/10/2016 Inactive warfarin 5 mg tablet RxNorm: 241215 1 Tablet(s) PO daily 12/05/2015 No Stop Date Active warfarin 1 mg tablet RxNorm: 460186 TAKE ONE TABLET BY MOUTH EVERY EVENING 11/13/2015 12/22/2015 In active hydrocodone 5 mg-yanira taminophen 325 mg tablet RxNorm: 755540 1 Tablet(s) PO Q6 as needed for pain 10/26/2015 11/09/2015 Inactive allopurinol 100 mg t ablet RxNorm: 899389 1 Tablet(s) PO daily TAKE ONE TABLET BY MOUTH DAILY 10/18/2015 04/14/2016 Inactive hydrocodone 5 mg-yanira taminophen 325 mg tablet RxNorm: 618736 1 Tablet(s) PO Q6 as needed for pain 09/26/2015 10/10/2015 Inactive gabapentin 300 mg ca psule RxNorm: 904231 TAKE ONE CAPSULE BY M OUT[facility] THREE TIMES A DAY 09/14/2015 12/11/2015 Inactive warfarin 1 mg tablet RxNorm: 920352 1 Tablet(s) PO QPM 09/14/2015 11/12/2015 Inactive hydrocodone 5 mg-yanira taminophen 325 mg tablet RxNorm: 811501 1 Tablet(s) PO Q6 as needed for pain 09/12/2015 09/25/2015 Inactive hydrocodone 5 mg-yanira taminophen 325 mg tablet RxNorm: 513717 1 Tablet(s) PO Q6 as needed for pain 08/22/2015 09/05/2015 Inactive Bactrim DS 800 mg-16 0 mg tablet RxNorm: 971882 1 Tablet(s) PO BID 08/20/2015 09/02/2015 Inactive magnesium oxide 400 mg tablet RxNorm: 776625 TAKE ONE TABLET BY MO [facility] TWICE A DAY 01/20/2015 01/14/2016 In active gabapentin 300 mg ca psule RxNorm: 079476 TAKE ONE CAPSULE BY M OUT[facility] THREE TIMES A DAY 01/20/2015 05/19/2015 Inactive magnesium oxide 400 mg tablet RxNorm: 156735 1 Tablet(s) PO BID 01/17/2015 05/16/2015 Inactive gabapentin 300 mg ca psule RxNorm: 307393 1 Capsule(s) PO TID 01/17/2015 05/16/2015 Inactive allopurinol 100 mg t ablet RxNorm: 208957 TAKE ONE TABLET BY [facility] DAILY 10/18/2014 10/12/2015 In active Kenalog 40 mg/mL [facility] pension for injection RxNorm: 3720217 1 Milliliter(s) Inj 09/21/2014 09/21/2014 In active allopurinol 100 mg t ablet RxNorm: 984483 1 Tablet(s) PO daily 09/21/2014 10/17/2014 Inactive gabapentin 300 mg ca psule RxNorm: 383002 1 Capsule(s) PO TID 09/12/2014 01/09/2015 Inactive gabapentin 300 mg ca psule RxNorm: 781298 1 Capsule(s) PO TID 09/12/2014 09/11/2014 Inactive magnesium oxide 400 mg tablet RxNorm: 726536 1 Tablet(s) PO BID 09/12/2014 01/09/2015 Inactive magnesium oxide 400 mg tablet RxNorm: 463584 1 Tablet(s) PO BID 09/12/2014 09/11/2014 Inactive lisinopril 5 mg tablet RxNorm: 057899 1 Tablet(s) PO daily No Start Date Active atorvastatin oral RxNorm: 75088 oral No Start Date Active Coreg 6.25 mg tablet RxNorm: 076223 1 Tablet(s) PO BID No Start Date Active Combivent Respimat 2 0 mcg-100 mcg/actuation solution for inhalation RxNorm: 4164654 1 Puff(s) INH as needed No Start Date Active Ventolin Refill 90 m cg/actuation aerosol inhaler RxNorm: 105742 2 INH as needed No Start Date Active Centrum Silver Women oral RxNorm: [address] art Date Active aspirin 81 mg capsul e,delayed release RxNorm: 575964 1 Capsule(s) PO daily No Start Date Active nystatin 100,000 uni t/gram topical powder RxNorm: 782154 1 Gram(s) TOP TID No Start Date 10/13/2016 Inactive warfarin 1 mg tablet RxNorm: 903899 oral No Start Date 09/13/2015 Inactive Pepcid 20 mg tablet RxNorm: 962673 1 Tablet(s) PO BID No Start Date 12/15/2016 Inactive Protonix 40 mg table t,delayed release RxNorm: 042089 1 Tablet(s) PO daily No Start Date 09/16/2016 Inactive warfarin 5 mg tablet RxNorm: 076795 1 Tablet(s) PO daily 1.5 tabs on Thu No Start Date 12/04/2015 Inactive minocycline 50 mg ca psule RxNorm: 937780 1 Capsule(s) PO BID o rdered by Dr. 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-10: Z79.01 ICD-9: [...] Item Item Code Result Date Comp Metabolic Xij967 NA 136 mEq/L 03/11/2018 Comp Metabolic Ogz935 K 4.3 mEq/L 03/11/2018 Comp Metabolic Fga293 CL 101 mEq/L 03/11/2018 Comp Metabolic Gwm102 CO2 27.0 mEq/L 03/11/2018 Comp Metabolic Hrw361 AN ION GAP 12 03/11/2018 Comp Metabolic Mrq278 GL UCOSE 87 mg/dL 03/11/2018 Comp Metabolic Aot354 Cr eat 1.0 mg/dL 03/11/2018 Comp Metabolic Cij291 eG FR 79 ml/min/1.73m2 03/11 Comp Metabolic Urm341 BUN 12 mg/dL 03/11/2018 Comp Metabolic Hur817 B/ C Ratio 12.1 Ratio 03/11/2018 Comp Metabolic Xdp155 CA LCIUM 8.9 mg/dL 03/11/2018 Comp Metabolic Sud672 AL K PHOS 106 U/L 03/11/2018 Comp Metabolic Idx743 T(SGOT) 16 U/L 03/11/2018 Comp Metabolic Dyd829 AL T(SGPT) 11 U/L 03/11/2018 Comp Metabolic Igt457 BI LI T 0.4 mg/dL 03/11/2018 Comp Metabolic Sar891 AL BUMIN 3.8 g/dL 03/11/2018 Comp Metabolic Eak828 TP RO 6.5 g/dL 03/11/2018 Comp Metabolic Yms317 GL OB 2.7 g/dL 03/11/2018 Comp Metabolic Naf585 A/ G Ratio 1.4 Ratio 03/11/2018 Comp Metabolic Ups424 Os mo 271 mOsmo 03/11/2018 Cbc With [...] 29.8 pg 03/11/2018 Cbc With Differential Ord2 [place]% 11.3 % 03/11/2018 Cbc With Differential Ord2 [...] 2.87 K/ul 03/11/2018 Cbc With Differential Ord2 [place] ABS# 1.1 K/ul 03/11/2018 Cbc With Differential Ord2 Eos ABS# 0.4 K/ul 03/11/2018 Cbc With Differential Ord2 Baso ABS# 0.0 K/ul 03/11/2018 Pt Hir8404 PT 31.3 seconds 03/11/2018 Pt Yhn8755 INR 3.1 03/11/2018 Pt Lwj4216 Low Intensity - 1.5-2.0 03/11/2018 Pt Hfe3226 Mod intensity - 2.0-3.0 03/11/2018 Pt Vpk0716 Hi intensity - 3.0-4.0 03/11/2018 Tsh Ord6 TSH (3rd IS) 2.01 uIU/mL 03/11/2018 Shiga Toxin 1 & 2 Eia Stool [id number] SHIGA TOXIN 1: NEGATIVE 04/12/2017 Shiga Toxin 1 & 2 Eia Stool [id number] SHIGA TOXIN 2: NEGATIVE 04/12/2017 Culture Stool [id number] STO OL CULTURE SEE NOTES 04/12/2017 Clostridium Diff Tox A/B Buq033 Cdiff Negative 04/09/2017 Pt Tme9721 PT 64.8 seconds 01/10/2016 Pt Gtj6265 INR 8.6 01/10/2016 Pt Rbh1770 Low Intensity - 1.5-2.0 01/10/2016 Pt Umi1906 Mod intensity - 2.0-3.0 01/10/2016 Pt Ohm6540 Hi intensity - 3.0-4.0 01/10/2016 Pt Cek8140 PT 32.1 seconds 11/01/2014 Pt Lbb6488 INR 3.2 11/01/2014 Pt Gnf4858 Low Intensity - 1.5-2.0 11/01/2014 Pt Ypi8858 Mod intensity - 2.0-3.0 11/01/2014 Pt Oyw8571 Hi intensity - 3.0-4.0 11/01/2014 Pt Gtj4601 PT 30.2 seconds 10/03/2014 Pt Lde8307 INR 3.0 10/03/2014 Pt Bih9089 Low Intensity - 1.5-2.0 10/03/2014 Pt Gur4193 Mod intensity - 2.0-3.0 10/03/2014 Pt Eeh4782 Hi intensity - 3.0-4.0 10/03/2014 D-Dimer D-DIMER 475 NG/ML 09/25/2014 D-Dimer COMMENT 09/25/2014 Magnesium Ord90 Mag 1.1 Result Verified By Repeat Analysis mg/dL 09/22/2014 Pt Vbk1704 PT 32.0 seconds 09/22/2014 Pt Tpr7692 INR 3.2 09/22/2014 Pt Glx8034 Low Intensity - 1.5-2.0 09/22/2014 Pt Ndj8624 Mod intensity - 2.0-3.0 09/22/2014 Pt Luv8523 Hi intensity - 3.0-4.0 09/22/2014 Comp Metabolic Dqb230 NA 137 mEq/L 09/22/2014 Comp Metabolic Zwc078 K 4.2 mEq/L 09/22/2014 Comp Metabolic Bxf336 CL 102 mEq/L 09/22/2014 Comp Metabolic Bmw810 CO2 25.0 mEq/L 09/22/2014 Comp Metabolic Icp142 AN ION GAP 14 09/22/2014 Comp Metabolic Oxm678 GL UCOSE 94 mg/dL 09/22/2014 Comp Metabolic Sya744 Cr eat 0.8 mg/dL 09/22/2014 Comp Metabolic Gum114 eG FR 102 ml/min/1.73m2 09/06 Comp Metabolic Doy037 BUN 15 mg/dL 09/22/2014 Comp Metabolic Bdc586 B/ C Ratio 18.8 Ratio 09/22/2014 Comp Metabolic Iol546 CA LCIUM 9.4 mg/dL 09/22/2014 Comp Metabolic Act961 AL K PHOS 65 U/L 09/22/2014 Comp Metabolic Qty676 T(SGOT) 15 U/L 09/22/2014 Comp Metabolic Mgc250 AL T(SGPT) 8 U/L 09/22/2014 Comp Metabolic Ggt711 BI LI T 0.4 mg/dL 09/22/2014 Comp Metabolic Ufx543 AL BUMIN 4.0 g/dL 09/22/2014 Comp Metabolic Grw418 TP RO 6.8 g/dL 09/22/2014 Comp Metabolic Fua909 GL OB 2.8 g/dL 09/22/2014 Comp Metabolic Mni916 A/ G Ratio 1.4 Ratio 09/22/2014 Comp Metabolic Ylj023 Os mo 274 mOsmo 09/22/2014 C-Reactive Protein [...] Procedure Codes Date THER/PROPH/DIAG INJ SC/IM CPT-4: 86054 08/28/2017 ROCEPHIN, PER 250 MG CPT-4: J0696 08/28/2017 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 3-[address]: 912415135 CPT-4: G0436 01/27/2017 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 3-[address]: 036501360 CPT-4: G0436 11/25/2016 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 3-[address]: 953588396 CPT-4: G0436 10/15/2016 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 3-[address]: 283145959 CPT-4: G0436 09/17/2016 THER/PROPH/DIAG INJ SC/IM CPT-4: 91943 01/07/2016 TRIAMCINOLONE ACET I [place] NOS CPT-4: J3301 01/07/2016 TRIAMCINOLONE ACET I [place] NOS CPT-4: J3301 09/21/2014 THER/PROPH/DIAG INJ SC/IM CPT-4: 56841 09/21/2014 Vital Signs Date Vital 03/11/2018 Blood Pressure 1: 134/82 Code: 8480-6 BMI: 32.8 Code: 16702-7 Heart Rate 1: 65 bpm Height: 5'3" SpO2: 96% Weight: 185 lbs 08/28/2017 Blood Pressure 1: 138/72 Code: 8480-6 Heart Rate 1: 80 bpm Height: SpO2: 98% Weight: 07/20/2017 Blood Pressure 1: 134/76 Code: 8480-6 BMI: 29.6 Code: 00060-5 Heart Rate 1: 82 bpm Height: 5'3" [...] 1: 128/78 Code: 8480-6 BMI: 33.3 Code: 52122-4 Heart Rate 1: 72 bpm Height: 5'3" SpO2: 97% Weight: 188 lbs 01/10/2016 Blood Pressure 1: 132/76 Code: 8480-6 BMI: 33.1 Code: 55030-6 Heart Rate 1: 72 bpm Height: 5'3" SpO2: 97% Weight: 187 lbs 12/25/2015 Blood Pressure 1: 154/82 Code: 8480-6 BMI: 33.1 Code: 10160-4 Heart Rate 1: 72 bpm Height: 5'3" SpO2: 97% Weight: 187 lbs 10/11/2015 Blood Pressure 1: 110/62 Code: 8480-6 BMI: 34.7 Code: 99472-8 Heart Rate 1: 70 bpm Height: 5'3" SpO2: 93% Weight: 196 lbs 08/24/2015 Blood Pressure 1: 132/62 Code: 8480-6 BMI: 35.3 Code: 72300-0 Heart Rate 1: 62 bpm Height: 5'3" SpO2: 93% Weight: 199 lbs 08/20/2015 Blood Pressure 1: 140/68 Code: 8480-6 BMI: 35.3 Code: 17561-9 Heart Rate 1: 74 bpm Height: 5'3" SpO2: 96% Weight: 199 lbs 12/28/2014 Blood Pressure 1: 130/72 Code: 8480-6 BMI: 33.1 Code: 82914-6 Heart Rate 1: 60 bpm Height: 5'3" SpO2: 97% Weight: 187 lbs 10/31/2014 Blood Pressure 1: 118/72 Code: 8480-6 BMI: 31.2 Code: 43772-9 Heart Rate 1: 58 bpm Height: 5'3" SpO2: 98% Weight: 176 lbs 10/02/2014 Blood Pressure 1: 138/74 Code: 8480-6 BMI: 30.6 Code: 40526-5 Heart Rate 1: 72 bpm Height: 5'3" Weight: 173 lbs 09/21/2014 Blood Pressure 1: 138/72 Code: 8480-6 BMI: 30.5 Code: 66171-7 Heart Rate 1: 60 bpm Height: 5'3" [...] Encounters Encounter Performer Loca tion Codes Date 15242 EST. 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 CPT-4: 37309 03/11/2018 [id number] EST. PATIENT, LEVEL III Diagnosis: Cellulitis of left axilla[ICD10: L03.112] Diagnosis: Cellulitis of right axilla[ICD10: L03.111] Rox Alvarez MD, [facility] CPT-4: 99901 08/28/2017 [id number] EST. 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 CPT-4: 75731 07/20/2017 [id number] EST. PATIENT, LEVEL IV Diagnosis: Generalized anxiety disorder[ICD10: F41.1] Diagnosis: Major depressive disorder, single episode, moderate[ICD10: F32.1] Diagnosis: Diarrhea, unspecified[ICD10: R19.7] Rox Alvarez MD, [facility] CPT-4: 11699 04/21/2017 [id number] EST. PATIENT, LEVEL IV Diagnosis: Generalized anxiety disorder[ICD10: F41.1] Diagnosis: Major depressive disorder, single episode, moderate[ICD10: F32.1] Diagnosis: Nausea[ICD10: R11.0] Diagnosis: Diarrhea, unspecified[ICD10: R19.7] Rox Alvarez MD, [facility] CPT-4: 93060 04/07/2017 ([id number]) [id number] EST. P ATIENT, LEVEL IV Diagnosis: Essential (primary) hypertension[ICD10: I10] Diagnosis: Nausea[ICD10: R11.0] Diagnosis: Other fecal abnormalities[ICD10: R19.5] Diagnosis: Tobacco use[ICD10: Z72.0] Selena Alvarez MD, [facility] CPT-4: 33844 01/27/2017 ([id number]) [id number] EST. P ATIENT, LEVEL III Diagnosis: Essential (primary) hypertension[ICD10: I10] Diagnosis: Chronic obstructive pulmonary disease, unspecified[ICD10: J44.9] Diagnosis: Rash and other nonspecific skin eruption[ICD10: R21] Selena Alvarez MD, [facility] CPT-4: 12259 11/25/2016 ([id number]) 14516 EST. P ATIENT, LEVEL III Diagnosis: Other sites of candidiasis[ICD10: B37.89] Selena Alvarez MD, [facility] CPT-4: 61827 10/15/2016 ([id number]) 98418 EST. P ATIENT, LEVEL IV Diagnosis: Essential (primary) hypertension[ICD10: I10] Diagnosis: Urinary tract infection, site not specified[ICD10: N39.0] Diagnosis: Localized edema[ICD10: R60.0] Selena Alvarez MD, [facility] CPT-4: 81611 09/17/2016 [id number] EST. 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 CPT-4: 41495 08/14/2016 [id number] EST. PATIENT, LEVEL III Diagnosis: Other specified bacterial intestinal infections[ICD10: A04.8] Rox Alvarez MD, [facility] CPT-4: 56499 04/16/2016 30131 EST. PATIENT, LEVEL II Diagnosis: Pain in right foot[ICD10: M79.671] Rox Alvarez MD, [facility] CPT-4: 60497 01/21/2016 [id number] EST. PATIENT, LEVEL III Diagnosis: Encounter for therapeutic drug level monitoring[ICD10: Z51.81] Diagnosis: Rash and other nonspecific skin eruption[ICD10: R21] Rox Alvarez MD, [facility] CPT-4: 55261 01/10/2016 88531 EST. PATIENT, LEVEL III Diagnosis: Rash and other nonspecific skin eruption[ICD10: R21] Rox Alvarez MD, [facility] CPT-4: 19244 01/07/2016 ([id number]) Miscellaneou s no charge Diagnosis: Cutaneous abscess of left axilla[ICD10: L02.412] Rox Alvarez MD, [facility] CPT-4: 26537 01/02/2016 ([id number]) Miscellaneou s no charge Diagnosis: Cutaneous abscess of left axilla[ICD10: L02.412] Rox Alvarez MD, [facility] CPT-4: 73019 01/01/2016 ([id number]) Miscellaneou s no charge Diagnosis: Cutaneous abscess of left axilla[ICD10: L02.412] Rox Alvarez MD, [facility] CPT-4: 59151 12/31/2015 ([id number]) Patient adm itted to the hospital from clinic (NO CHARGE) Diagnosis: Cutaneous abscess of left axilla[ICD10: L02.412] Rox Alvarez MD, [facility] CPT-4: 76873M 12/25/2015 20497 EST. PATIENT, LEVEL III Diagnosis: Encounter for follow-up examination after completed treatment for conditions other than malignant neoplasm[ICD10: Z09] Diagnosis: Diverticulitis of intestine, part unspecified, without perforation or abscess with bleeding[ICD10: K57.93] Diagnosis: Cellulitis of left toe[ICD10: L03.032] Diagnosis: Other obesity due to excess calories[ICD10: E66.09] Diagnosis: Other senior living (current) drug therapy[ICD10: Z79.899] Rox Alvarez MD, [facility] CPT-4: 53880 10/11/2015 ([id number]) Miscellaneou s no charge Diagnosis: Encounter for therapeutic drug level monitoring[ICD10: Z51.81] Diagnosis: Other acute osteomyelitis, left ankle and foot[ICD10: M86.172] Rox Alvarez MD, [facility] CPT-4: 99020 08/24/2015 61283 EST. PATIENT, LEVEL IV Diagnosis: Cellulitis of left toe[ICD10: L03.032] Rox Alvarez MD, [facility] CPT-4: 26350 08/20/2015 64700 EST. PATIENT, LEVEL III Diagnosis: Essential (primary) hypertension[ICD10: I10] Diagnosis: Peripheral vascular disease, unspecified[ICD10: I73.9] Diagnosis: Dermatitis, unspecified[ICD10: L30.9] Rox Alvarez MD, [facility] CPT- 4: 83586 12/28/2014 ([id number]) 96997 EST. P ATIENT, LEVEL III Diagnosis: ESSENTIAL HYPERTENSION[ICD9: 401.9] Diagnosis: PAD (peripheral artery disease)[ICD9: 443.9] Diagnosis: Anticoagulated on Coumadin[ICD9: V58.83] Emy Alvarez MD, [facility] CPT-4: 42959 10/31/2014 ([id number]) 88977 EST. P ATIENT, LEVEL III Diagnosis: PAD (peripheral artery disease)[ICD9: 443.9] Diagnosis: Anticoagulated on Coumadin[ICD9: V58.83] Diagnosis: SCLERITIS[ICD9: 379.00] Diagnosis: ESSENTIAL HYPERTENSION[ICD9: 401.9] Selena Alvarez MD, [facility] CPT- 4: 51592 10/02/2014 ([id number]) OFFICE [facility] - LEVEL 4 Diagnosis: GOUT[ICD9: 274.9] Diagnosis: COPD (chronic obstructive pulmonary disease)[ICD9: 496] Diagnosis: PAD (peripheral artery disease)[ICD9: 443.9] Diagnosis: ESSENTIAL HYPERTENSION[ICD9: 401.9] [facility] CPT- 4: 58362 09/21/2014 Plan of Care Planned Activity Notes [...] continue PT 03/11/2018 Appointment: Rox Luciano WPtel: [address] [place], [place] [phone] (15 min) Moderate 03/11/2018 Patient Education: Patient Medication Summary Completed 03/11/2018 Appointment: Rox Luciano WPtel: [address] [place], [place] [phone] (30 min) Complex 11/17/2017 Visit Plan: [...] warmth, discharge. 08/28/2017 Appointment: Rox Luciano WPtel: [address] [place], [place] [phone] (30 min) Complex 08/28/2017 Patient Education: Patient [...] continue PT 07/20/2017 Appointment: Rox Luciano WPtel: [address] [place], [place] [phone] (30 min) Complex 07/20/2017 Patient Education: Patient Medication Summary Completed 07/20/2017 Referral: Stephanie Silva WPtel: Referral Initiated 05/04/2017 Care Plan: Referral Order SNOMED-CT : [id number] Pending 04/30/2017 Visit Plan: Chronic Depression and [...] stomach pain. 04/21/2017 Appointment: Rox Luciano WPtel: [address] [place], [place] [address] [place] (30 min) Complex 04/21/2017 Patient Education: [...] stomach pain. 04/07/2017 Appointment: [facility] ([facility] min) Complex 04/07/2017 Patient Education: Patient Medication Summary Completed 04/07/2017 Appointment: Selena Alvarez WPtel: [facility] (15 min) Moderate 02/26/2017 Visit Plan: Hypertension [...] not improving. 01/27/2017 Appointment: Selena Alvarez WPtel: [phone] [facility] (15 min) Moderate 01/27/2017 Patient Education: Patient [...] nystatin 11/25/2016 Appointment: Selena Alvarez WPtel: [phone] [facility] (15 min) Moderate 11/25/2016 Appointment: Selena Alvarez WPtel: [phone] [facility] (15 min) Moderate 11/25/2016 Patient Education: [...] over-medication. 10/15/2016 Appointment: Selena Alvarez WPtel: [phone] [facility] (15 min) Moderate 10/15/2016 Patient Education: Patient Medication Summary Completed 10/15/2016 Patient Education: Smoking and Tobacco Addiction Completed 10/15/2016 Appointment: Rox Luciano WPtel: [phone] [facility] (30 min) Complex 09/18/2016 Visit Plan: Hypertension [...] mobility evaluation. 08/14/2016 Appointment: Rox Luciano WPtel: [facility] (30 min) Complex 08/14/2016 Patient Education: [...] pain. 04/16/2016 Appointment: [facility] Luciano [facility]Ptel[facility] [phone] [facility] (15 min) Moderate 04/16/2016 Patient Education: Patient Medication Summary Completed 04/16/2016 Patient Education: Smoking and Tobacco Addiction Completed 04/16/2016 Referral: Dr Arboleda Referral Completed 02/14/2016 Care Plan: Referral Order SNOMED-CT : [id number] Pending 01/29/2016 Visit Plan: Right foot pain [...] warmth, discharge. 01/10/2016 Appointment: Rox Luciano WPtel: [address] [place], [place] [phone] (30 min) [facility] 01/10/2016 Patient Education: Patient Medication Summary [...] further I&D. 12/25/2015 Appointment: Emy Westbrook WPtel: [facility] [place] (15 min) Moderate 12/25/2015 Patient [...] care management. 10/11/2015 Appointment: Rox Luciano WPtel: [facility] (30 min) Complex 10/11/2015 Patient Education: Patient Medication Summary Completed 10/11/2015 Patient Education: Smoking and Tobacco Addiction Completed 10/11/2015 Patient Education: Obesity Completed 10/11/2015 Referral: Gavino Navarro they are g oing to call if they get him in before if not we will call Dr shook Initiated 09/27/2015 Appointment: Emy Westbrook WPtel: [address] [place], [place] [phone] (15 min) Moderate 08/24/2015 Patient Education: Patient Medication Summary Completed 08/24/2015 Patient Education: Smoking and Tobacco Addiction Completed 08/24/2015 Patient Education: Patient Medication Summary Completed 08/23/2015 Appointment: Emy Westbrook WPtel: [phone] (30 min) Complex 08/22/2015 Referral: [facility] WPtel: 1 [facility] Referral Initiated 08/22/2015 Visit Plan: Pt [...] Hypertension Completed 12/28/2014 Appointment: Selena Alvarez WPtel: [facility] Follow up 12/20/2014 Visit Plan: Hypertension - [...] 09/21/2014 Care Plan: Referral Order SNOMED-CT : [id number] Ordered 09/21/2014 Appointment: Selena Alvarez WPtel: [facility] [place] ([place] New Patient 09/20/2014 Referral: HolgerMartinez rodriguez [facility]Ptel[facility] [phone] [facility] [place] Referral Initiated Referral: Gavino Navarro Referral Initiated Referral: [facility] [address] [place] [id number] [place] Referral Initiated Referral: Dr Arboleda Referral Completed Referral: Stephanietrisha Silva WPtel: Referral Initiated Instructions Comment . [...] leg amputation - continue PT . Pt is here for a f [...] minimal drainage noted, repacked and dressing applied. We will check PT/INR today Go directly [...] or with any questions or concerns. . Left Axilla absces s and cellulitis [...] for IV antibiotics and further I&D. . Left axilla absces s - packing removed - minimal drainage noted, wound cleaned and dressing applied. probiotics - culture lle or [facility]. . Gastroenteritis - discussed need to [...] of groin - continue with nystatin . Dr. Alvarez in to see patient. [...] the lesion, increase in pain. . Left axilla absces s - packing removed - minimal purulent drainage noted, repacked and dressing applied. . Cellulitis bilater al axilla - The patient was instructed to use the antibiotic ointment as per RX. The patient is to call for any change in symptoms, increase in size of the lesion, increase in pain, worsening redness, warmth, discharge. will refer to Dr. Edgar jordan will [...]
[2019-08-20 18:34] LABS: BASOPHILS % (AUTO) 0 % (0-10); EOSINOPHILS % (AUTO) 0 % (0-10); HEMATOCRIT 29 % (40-54); HEMOGLOBIN 9.5 G/DL (13.3-17.7); LYMPHOCYTES # (AUTO) 1.3 X 10^3 (1.0-4.0); LYMPHOCYTES % (AUTO) 6 % (12-44); MEAN CORPUSCULAR HEMOGLOBIN 30 PG (25-34); MEAN CORPUSCULAR HGB CONC 33 G/DL (32-36); MEAN CORPUSCULAR VOLUME 90 FL (80-99); MEAN PLATELET VOLUME 11.3 FL (7.4-10.4); MONOCYTES # (AUTO) 1.4 X 10^3 (0.0-1.0); MONOCYTES % (AUTO) 7 % (0-12); NEUTROPHILS # (AUTO) 17.6 X 10^3 (1.8-7.8); NEUTROPHILS % (AUTO) 87 % (42-75); PLATELET COUNT 163 10^3/uL (130-400); RED CELL DISTRIBUTION WIDTH 14.4 % (10.0-14.5); WHITE BLOOD COUNT 20.2 10^3/uL (4.3-11.0)
--- OUTSIDE RECORDS SUMMARY | 2019-08-20 18:34 | XMS REPORT | CCD ---
Author Author Bony Alvarez Organization Selena Alvarez MD, [facility] Address [address] [place] [address] Phone Care Team Providers Care Aquatics Manager Name Role Phone PP Unavailable CCM Unavailable Summary Purpose Interface Exchange Insurance Providers Payer name Policy type / Coverage type Covered green party ID Effective Begin Date Effective End Date [facility] Commercial Insurance [id number] 2017 Unknown Family history Father Diagnosis Age At Onset Hyperlipidemia Unknown Coronary Artery Disease Unknown Stroke Unknown Cancer Unknown Congestive heart failure Unknown Mother Diagnosis Age At Onset Hypertension Unknown kidney disease Unknown Cancer Unknown Stroke Unknown Hyperlipidemia Unknown Coronary Artery Disease Unknown Congestive heart failure Unknown Social History Social History Element Codes Description Effective Dates Tobacco history SNOMED CT: 931382353770277 Current some days smoker 09/21/2014 Allergies, Adverse Reactions, Alerts Substance Reaction Codes Entered Date Inactivated Date Status MORPHINE AND RELATED Unknown 09/21/2014 No Inactive Date Active SULFA(SULFONAMIDE AN TIBIOTICS) Unknown 01/21/2016 No Inactive Date Active Past Medical History Illness Codes Condition Status Onset Date Resolved Date Cellulitis of left a xilla ICD-9: 682.3 ICD-10: L03.112 Active 08/28/2017 Unknown Cellulitis of right axilla ICD-9: 682.3 ICD-10: L03.111 Active 08/28/2017 Unknown 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 ICD-10: Z89.612 Active 08/14/2016 Unknown Chronic pain syndrome ICD-9: 338.4 ICD-10: G89.4 Active 07/20/2017 Unknown Diarrhea, unspecified ICD-9: 787.91 ICD-10: R19.7 Active 04/21/2017 Unknown Essential (primary) hypertension ICD-9: 401.9 ICD-10: I10 Active 12/27/2014 Unknown Generalized anxiety disorder ICD-9: 300.00 ICD-10: F41.1 Active 04/21/2017 Unknown Major depressive dis order, single episode, moderate ICD-9: 296.22 ICD-10: F32.1 Active 04/21/2017 Unknown Nausea ICD-9: 787.02 ICD-10: [...] V67.59 ICD-10: Z09 Active 10/10/2015 Unknown 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 ICD-9: V58.69 ICD-10: [...] Condition Codes Effectiv e Dates Condition Status Cellulitis of left a xilla ICD-9: 682.3 ICD-10: L03.112 08/28/2017 Active Cellulitis of right axilla ICD-9: 682.3 ICD-10: L03.111 08/28/2017 Active 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 ICD-10: Z89.612 08/14/2016 Active Chronic pain syndrome ICD-9: 338.4 ICD-10: G89.4 07/20/2017 Active Diarrhea, unspecified ICD-9: 787.91 ICD-10: R19.7 04/21/2017 Active Essential (primary) hypertension ICD-9: 401.9 ICD-10: I10 12/27/2014 Active Generalized anxiety disorder ICD-9: 300.00 ICD-10: F41.1 04/21/2017 Active Major depressive dis order, single episode, moderate ICD-9: 296.22 ICD-10: F32.1 04/21/2017 Active Nausea ICD-9: 787.02 ICD-10: R11.0 [...] ICD-9: V67.59 ICD-10: Z09 10/10/2015 Active 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 ICD-9: V58.69 ICD-10: [...] E R 20 mEq tablet,extended release RxNorm: 649611 Tablet(s) TAKE ONE TABLET BY MOUTH DAILY WHEN TAKING FUROSEMIDE NEEDED 03/05/2018 08/31/2018 Active gabapentin 300 mg ca psule RxNorm: 287808 TAKE ONE CAPSULE BY OUT THREE TIMES A DAY 03/04/2018 02/26/2019 Ac tive hydrocodone 7.5 mg-a cetaminophen 325 mg tablet RxNorm: 421973 1 Tablet(s) PO QID as needed 02/18/2018 03/19/2018 Active hydrocodone 7.5 mg-a cetaminophen 325 mg tablet RxNorm: 266587 1 Tablet(s) PO QID as needed 01/19/2018 02/17/2018 Inactive hydrocodone 7.5 mg-a cetaminophen 325 mg tablet RxNorm: 951215 1 Tablet(s) PO QID as needed 12/16/2017 01/14/2018 Inactive Pepcid 20 mg tablet RxNorm: 196624 Tablet(s) TAKE ONE TABLET BY MOUTH TWICE A DAY 12/08/2017 05/06/2018 Active hydrocodone 7.5 mg-a cetaminophen 325 mg tablet RxNorm: 528251 1 Tablet(s) PO QID as needed 11/18/2017 12/15/2017 Inactive gabapentin 300 mg ca psule RxNorm: 122979 Capsule(s) TAKE ONE C APSULE BY MOUTH THREE TIMES A DAY 11/11/2017 03/03/2018 Inactive gabapentin 300 mg ca psule RxNorm: 119566 TAKE ONE CAPSULE BY M OUTH THREE TIMES A DAY 11/10/2017 11/10/2017 Inactive hydrocodone 7.5 mg-a cetaminophen 325 mg tablet RxNorm: 795592 1 Tablet(s) PO QID as needed 10/19/2017 11/17/2017 Inactive hydrocodone 7.5 mg-a cetaminophen 325 mg tablet RxNorm: 999368 1 Tablet(s) PO QID as needed 09/16/2017 10/15/2017 Inactive doxycycline hyclate 100 mg capsule RxNorm: 3973769 1 Capsule(s) PO BID 08/28/2017 09/06/2017 In active hydrocodone 7.5 mg-a cetaminophen 325 mg tablet RxNorm: 762421 1 Tablet(s) PO QID as needed 08/21/2017 09/15/2017 Inactive Lexapro 10 mg tablet RxNorm: 207259 TAKE ONE TABLET BY MOUTH AT BEDTIME 08/02/2017 07/27/2018 Ac tive Zyrtec 10 mg tablet RxNorm: 9328606 1 Tablet(s) PO daily 07/20/2017 11/16/2017 Inactive hydrocodone 7.5 mg-a cetaminophen 325 mg tablet RxNorm: 641791 1 Tablet(s) PO QID as needed 07/20/2017 09/15/2017 Inactive furosemide 40 mg tablet RxNorm: 708170 Tablet(s) TAKE ONE TABLET BY MOUTH DAILY NEEDED FOR SWELLING 07/08/2017 01/03/2018 Inactive Pepcid 20 mg tablet RxNorm: 195718 TAKE ONE TABLET BY MOUTH TWICE A DAY 06/29/2017 11/25/2017 In active gabapentin 300 mg ca psule RxNorm: 825143 TAKE ONE CAPSULE BY M OUTH THREE TIMES A DAY 06/29/2017 10/26/2017 Inactive hydrocodone 7.5 mg-a cetaminophen 325 mg tablet RxNorm: 433359 1 Tablet(s) PO QID as needed 06/18/2017 07/17/2017 Inactive hydrocodone 7.5 mg-a cetaminophen 325 mg tablet RxNorm: 911509 1 Tablet(s) PO QID as needed 05/18/2017 06/16/2017 Inactive hydrocodone 7.5 mg-a cetaminophen 325 mg tablet RxNorm: 676236 1 Tablet(s) PO QID as needed 04/21/2017 05/17/2017 Inactive hyoscyamine 0.125 mg sublingual tablet RxNorm: 8649572 1 Tablet(s) SL TID a s needed 04/21/2017 04/25/2017 In active Lexapro 10 mg tablet RxNorm: 550989 1 Tablet(s) PO QHS 04/21/2017 07/19/2017 Inactive Flagyl 500 mg tablet RxNorm: 087279 1 Tablet(s) PO TID 04/07/2017 04/16/2017 Inactive Lexapro 10 mg tablet RxNorm: 246399 1 Tablet(s) PO QHS 04/07/2017 04/20/2017 Inactive hydrocodone 7.5 mg-a cetaminophen 325 mg tablet RxNorm: 077783 1 Tablet(s) PO QID as needed 03/24/2017 04/20/2017 Inactive allopurinol 100 mg t ablet RxNorm: 486061 TAKE ONE TABLET BY [facility] DAILY 03/10/2017 03/04/2018 In active hydrocodone 7.5 mg-a cetaminophen 325 mg tablet RxNorm: 154668 1 Tablet(s) PO QID as needed 02/11/2017 03/12/2017 Inactive gabapentin 300 mg ca psule RxNorm: 862917 TAKE ONE CAPSULE BY [facility] THREE TIMES A DAY 02/02/2017 06/28/2017 Inactive Zofran ODT 4 mg disi ntegrating tablet RxNorm: 710090 1 Tablet(s) PO QID as needed nausea and vomitting 01/27/2017 No Stop Date Active hydrocodone 7.5 mg-a cetaminophen 325 mg tablet RxNorm: 995521 1 Tablet(s) PO QID as needed 01/13/2017 02/10/2017 Inactive potassium chloride E R 20 mEq tablet,extended release RxNorm: 104758 TAKE ONE TABLET BY MOUTH DAILY WHEN TAKING FUROSEMIDE NEEDED 01/12/2017 07/10/2017 Inactive furosemide 40 mg tablet RxNorm: 262066 TAKE ONE TABLET BY MOUTH DAILY NEEDED FOR SWELLING 01/12/2017 07/09/2017 Inactive promethazine 25 mg t ablet RxNorm: 955536 TAKE ONE TABLET BY [facility] THREE TIMES A DAY NEEDED FOR NAUSEA AND VOMITING 01/12/2017 01/31/2017 Inactive promethazine 25 mg t ablet RxNorm: 986430 1 Tablet(s) PO TID as needed nausea and vomitting 01/06/2017 01/11/2017 Inactive Lomotil 2.5 mg-0.025 mg tablet RxNorm: 5413202 1-2 Tablet(s) PO BID as needed diarrhea 01/06/2017 01/05/2017 Inactive Lomotil 2.5 mg-0.025 mg tablet RxNorm: 5808484 1-2 Tablet(s) PO BID as needed diarrhea 01/06/2017 01/07/2017 Inactive Pepcid 20 mg tablet RxNorm: 470947 1 Tablet(s) PO BID 12/19/2016 06/16/2017 Inactive Pepcid 20 mg tablet RxNorm: 520463 1 Tablet(s) PO BID 12/16/2016 12/18/2016 Inactive hydrocodone 7.5 mg-a cetaminophen 325 mg tablet RxNorm: 573895 1 Tablet(s) PO QID as needed 12/16/2016 01/12/2017 Inactive hydrocodone 7.5 mg-a cetaminophen 325 mg tablet RxNorm: 698947 1 Tablet(s) PO QID as needed 11/18/2016 12/15/2016 Inactive allopurinol 100 mg t ablet RxNorm: 399221 TAKE ONE TABLET BY [facility] DAILY 10/29/2016 02/25/2017 In active hydrocodone 7.5 mg-a cetaminophen 325 mg tablet RxNorm: 745675 1 Tablet(s) PO QID as needed 10/15/2016 11/13/2016 Inactive nystatin 100,000 uni t/gram topical cream RxNorm: 969007 1 Gram(s) TOP QID 10/15/2016 11/25/2016 In active nystatin 100,000 uni t/gram topical powder RxNorm: 803556 1 Gram(s) TOP TID TO GROIN OR AFFECTED AREA 10/14/2016 No Stop Date Active hydrocodone 7.5 mg-a cetaminophen 325 mg tablet RxNorm: 696588 1 Tablet(s) PO QID as needed 09/17/2016 10/14/2016 Inactive furosemide 40 mg tablet RxNorm: 612882 1 Tablet(s) PO daily as needed swelling 09/17/2016 01/11/2017 In active potassium chloride E R 20 mEq tablet,extended release RxNorm: 733699 1 Tablet(s) PO daily as needed take when taking a lasix pill 09/17/2016 01/11/2017 Inactive Levaquin 500 mg tablet RxNorm: 686410 1 Tablet(s) PO daily 09/17/2016 09/21/2016 Inactive hydrocodone 7.5 mg-a cetaminophen 325 mg tablet RxNorm: 494723 1 Tablet(s) PO QID as needed 08/14/2016 09/12/2016 Inactive cyclobenzaprine 5 mg tablet RxNorm: 839998 1 Tablet(s) PO TID as needed 07/25/2016 07/29/2016 In active cyclobenzaprine 5 mg tablet RxNorm: 297796 1 Tablet(s) PO TID as needed 07/25/2016 07/24/2016 In active hydrocodone 7.5 mg-a cetaminophen 325 mg tablet RxNorm: 773938 1 Tablet(s) PO QID as needed 07/21/2016 08/13/2016 Inactive warfarin 1 mg tablet RxNorm: 883964 TAKE ONE TABLET BY MOUTH EVERY EVENING 06/26/2016 08/04/2016 In active hydrocodone 7.5 mg-a cetaminophen 325 mg tablet RxNorm: 558501 1 Tablet(s) PO QID as needed 06/24/2016 07/20/2016 Inactive hydrocodone 5 mg-yanira taminophen 325 mg tablet RxNorm: 924438 1 Tablet(s) PO Q6 as needed for pain 06/09/2016 06/10/2016 Inactive warfarin 1 mg tablet RxNorm: 382182 TAKE ONE TABLET BY MOUTH EVERY EVENING 06/02/2016 06/21/2016 In active allopurinol 100 mg t ablet RxNorm: 954214 TAKE ONE TABLET BY MO [facility] DAILY 05/21/2016 10/17/2016 In active hydrocodone 7.5 mg-a cetaminophen 325 mg tablet RxNorm: 095005 1 Tablet(s) PO QID as needed 05/09/2016 06/07/2016 Inactive gabapentin 300 mg ca psule RxNorm: 204374 Capsule(s) TAKE ONE C APSULE BY MOUTH THREE TIMES A DAY 04/25/2016 11/09/2017 Inactive promethazine 25 mg t ablet RxNorm: 318341 TAKE ONE TABLET BY MO [facility] THREE TIMES A DAY NEEDED 2016 05/01/2016 Inactive warfarin 1 mg tablet RxNorm: 654091 TAKE ONE TABLET BY MOUTH EVERY EVENING 2016 05/31/2016 In active promethazine 25 mg t ablet RxNorm: 649811 1 Tablet(s) PO TID as needed 04/16/2016 04/21/2016 In active warfarin 1 mg tablet RxNorm: 523256 TAKE ONE TABLET BY MOUTH EVERY EVENING 02/13/2016 04/12/2016 In active magnesium oxide 400 mg tablet RxNorm: 559226 TAKE ONE TABLET BY MO [facility] TWICE A DAY 02/07/2016 01/01/2017 In active hydrocodone 5 mg-yanira taminophen 325 mg tablet RxNorm: 385731 1 Tablet(s) PO Q6 as needed for pain 01/21/2016 02/19/2016 Inactive warfarin 1 mg tablet RxNorm: 520643 TAKE ONE TABLET BY MOUTH EVERY EVENING 01/17/2016 02/05/2016 In active gabapentin 300 mg ca psule RxNorm: 270270 Capsule(s) TAKE ONE C APSULE BY MOUTH THREE TIMES A DAY 01/11/2016 04/24/2016 Inactive prednisone 10 mg tablet RxNorm: 984091 Tablet(s) PO UD 01/10/2016 No Stop Date Active 60mg x2 days, then 50mg x2 days, then 40mg x2 days, 30mg x2 days, 20mg x2 days, 10mg x2days, 5mg every other day x 2 doses Kenalog 40 mg/mL cassius pension for injection RxNorm: 5590150 Milliliter(s) Inj 01/07/2016 01/07/2016 In active warfarin 1 mg tablet RxNorm: 910474 TAKE ONE TABLET BY MOUTH EVERY EVENING 01/01/2016 01/16/2016 In active hydrocodone 5 mg-yanira taminophen 325 mg tablet RxNorm: 542026 1 Tablet(s) PO Q6 as needed for pain 01/01/2016 01/15/2016 Inactive gabapentin 300 mg ca psule RxNorm: 355345 TAKE ONE CAPSULE BY M OUTH THREE TIMES A DAY 12/12/2015 01/10/2016 Inactive warfarin 5 mg tablet RxNorm: 666785 1 Tablet(s) PO daily 12/05/2015 No Stop Date Active warfarin 1 mg tablet RxNorm: 002190 TAKE ONE TABLET BY MOUTH EVERY EVENING 11/13/2015 12/22/2015 In active hydrocodone 5 mg-yanira taminophen 325 mg tablet RxNorm: 927963 1 Tablet(s) PO Q6 as needed for pain 10/26/2015 11/09/2015 Inactive allopurinol 100 mg t ablet RxNorm: 855866 1 Tablet(s) PO daily TAKE ONE TABLET BY MOUTH DAILY 10/18/2015 04/14/2016 Inactive hydrocodone 5 mg-yanira taminophen 325 mg tablet RxNorm: 235245 1 Tablet(s) PO Q6 as needed for pain 09/26/2015 10/10/2015 Inactive gabapentin 300 mg ca psule RxNorm: 346229 TAKE ONE CAPSULE BY M OUTH THREE TIMES A DAY 09/14/2015 12/11/2015 Inactive warfarin 1 mg tablet RxNorm: 580751 1 Tablet(s) PO QPM 09/14/2015 11/12/2015 Inactive hydrocodone 5 mg-yanira taminophen 325 mg tablet RxNorm: 080065 1 Tablet(s) PO Q6 as needed for pain 09/12/2015 09/25/2015 Inactive hydrocodone 5 mg-yanira taminophen 325 mg tablet RxNorm: 271252 1 Tablet(s) PO Q6 as needed for pain 08/22/2015 09/05/2015 Inactive Bactrim DS 800 mg-16 0 mg tablet RxNorm: 220754 1 Tablet(s) PO BID 08/20/2015 09/02/2015 Inactive magnesium oxide 400 mg tablet RxNorm: 269276 TAKE ONE TABLET BY MO [facility] TWICE A DAY 01/20/2015 01/14/2016 In active gabapentin 300 mg ca psule RxNorm: 268800 TAKE ONE CAPSULE BY M OUTH THREE TIMES A DAY 01/20/2015 05/19/2015 Inactive magnesium oxide 400 mg tablet RxNorm: 891926 1 Tablet(s) PO BID 01/17/2015 05/16/2015 Inactive gabapentin 300 mg ca psule RxNorm: 081505 1 Capsule(s) PO TID 01/17/2015 05/16/2015 Inactive allopurinol 100 mg t ablet RxNorm: 972969 TAKE ONE TABLET BY MO [facility] DAILY 10/18/2014 10/12/2015 In active Kenalog 40 mg/mL cassius pension for injection RxNorm: 5486682 1 Milliliter(s) Inj 09/21/2014 09/21/2014 In active allopurinol 100 mg t ablet RxNorm: 570761 1 Tablet(s) PO daily 09/21/2014 10/17/2014 Inactive gabapentin 300 mg ca psule RxNorm: 186216 1 Capsule(s) PO TID 09/12/2014 01/09/2015 Inactive gabapentin 300 mg ca psule RxNorm: 214987 1 Capsule(s) PO TID 09/12/2014 09/11/2014 Inactive magnesium oxide 400 mg tablet RxNorm: 540591 1 Tablet(s) PO BID 09/12/2014 01/09/2015 Inactive magnesium oxide 400 mg tablet RxNorm: 927084 1 Tablet(s) PO BID 09/12/2014 09/11/2014 Inactive lisinopril 5 mg tablet RxNorm: 429835 1 Tablet(s) PO daily No Start Date Active atorvastatin oral RxNorm: 00727 oral No Start Date Active minocycline 50 mg ca psule RxNorm: 474967 1 Capsule(s) PO BID o rdered by Dr. Saravia No Start Date Active Coreg 6.25 mg tablet RxNorm: 987022 1 Tablet(s) PO BID No Start Date Active Combivent Respimat 2 0 mcg-100 mcg/actuation solution for inhalation RxNorm: 6249839 1 Puff(s) INH as needed No Start Date Active Ventolin Refill 90 m cg/actuation aerosol inhaler RxNorm: 796607 2 INH as needed No Start Date Active Centrum Silver Women oral RxNorm: [address] art Date Active aspirin 81 mg capsul e,delayed release RxNorm: 984204 1 Capsule(s) PO daily No Start Date Active nystatin 100,000 uni t/gram topical powder RxNorm: 348336 1 Gram(s) TOP TID No Start Date 10/13/2016 Inactive warfarin 1 mg tablet RxNorm: 211605 oral No Start Date 09/13/2015 Inactive Pepcid 20 mg tablet RxNorm: 974681 1 Tablet(s) PO BID No Start Date 12/15/2016 Inactive Protonix 40 mg table t,delayed release RxNorm: 463243 1 Tablet(s) PO daily No Start Date 09/16/2016 Inactive warfarin 5 mg tablet RxNorm: 018964 1 Tablet(s) PO daily 1.5 tabs on Thu No Start Date 12/04/2015 Inactive furosemide 40 mg tablet RxNorm: 441190 1 Tablet(s) PO daily No Start Date 09/16/2016 Inactive Medication Administered Medication Codes Instruc tions Start Date Status Kenalog 40 mg/mL suspension for injection RxNorm: 7304831 Milliliter 01/07/2016 No longer Active Kenalog 40 mg/mL suspension for injection RxNorm: 2253277 1Milliliter 09/21/2014 N o longer Active Immunizations No Immunization data Assessments Condition Codes Effectiv e Dates Cellulitis of left axilla ICD-10: L0 3.112 ICD-9: 682.3 08/28/2017 Cellulitis of right axilla ICD-10: L 03.111 ICD-9: 682.3 08/28/2017 Chronic pain syndrome ICD-10: G89.4 ICD-9: 338.4 07/20/2017 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 ICD-9: V49.76 07/20/2017 Major depressive disorder, single episode, moderate ICD-10: F32.1 ICD-9: 296.22 07/20/2017 Essential (primary) hypertension ICD -10: I10 ICD-9: 401.9 07/20/2017 Generalized anxiety disorder ICD-10: F41.1 ICD-9: 300.00 07/20/2017 Diarrhea, unspecified ICD-10: R19.7 ICD-9: 787.91 [...] axilla ICD -10: L02.412 ICD-9: 682.3 01/02/2016 Other chcf (current) drug therapy ICD-10: Z79.899 ICD-9: V58.69 10/11/2015 Cellulitis of left toe ICD-10: L03.0 32 ICD-9: 681.10 10/11/2015 Other obesity due to excess calories ICD-10: E66.09 ICD-9: 278.00 10/11/2015 Encounter for follow-up examination afte r completed treatment for conditions other than malignant neoplasm ICD-10: Z09 ICD-9: V67.59 10/11/2015 Diverticulitis of intestine, part unspec ified, without perforation or abscess with bleeding ICD-10: K57.93 ICD-9: 562.13 10/11/2015 Other acute osteomyelitis, left ankle and foot ICD-10: M86.172 ICD-9: 730.07 08/24/2015 Peripheral vascular disease, unspecified ICD-10: I73.9 ICD-9: 443.9 12/28/2014 Dermatitis, unspecified ICD-10: L30. 9 ICD-9: 692.9 12/28/2014 PAD (peripheral artery disease) ICD- 9: 443.9 10/31/2014 Anticoagulated on Coumadin ICD-9: V58.83 10/31/2014 ESSENTIAL HYPERTENSION ICD-9: 401.9 10/31/2014 SCLERITIS ICD-9: 379.00 10/02/2014 COPD (chronic obstructive pulmonary disease) ICD-9: 496 09/21/2014 GOUT ICD-9: 274.9 2014 Reason For Visit Reason For Visit Effective Dates Notes cellulitis 08/28/2017 medication follow up 07/20/2017 depression [...] Observation Code Item Item Code Result Date Shiga Toxin 1 & 2 Eia Stool 784281 SHIGA TOXIN 1: NEGATIVE 04/12/2017 Shiga Toxin 1 & 2 Eia Stool 662408 SHIGA TOXIN 2: NEGATIVE 04/12/2017 Culture Stool [id number] STO OL CULTURE SEE NOTES 04/12/2017 Clostridium Diff Tox A/B Sng615 Cdiff Negative 04/09/2017 Pt Ssp3543 PT 64.8 seconds 01/10/2016 Pt Ged2174 INR 8.6 01/10/2016 Pt Lqp3927 Low Intensity - 1.5-2.0 01/10/2016 Pt Eok8438 Mod intensity - 2.0-3.0 01/10/2016 Pt Dgt4392 Hi intensity - 3.0-4.0 01/10/2016 Pt Zlz8570 PT 32.1 seconds 11/01/2014 Pt Dfk5566 INR 3.2 11/01/2014 Pt Mnl7738 Low Intensity - 1.5-2.0 11/01/2014 Pt Ufr7453 Mod intensity - 2.0-3.0 11/01/2014 Pt Sqx8745 Hi intensity - 3.0-4.0 11/01/2014 Pt Ksu8242 PT 30.2 seconds 10/03/2014 Pt Wbc8456 INR 3.0 10/03/2014 Pt Djg3701 Low Intensity - 1.5-2.0 10/03/2014 Pt Ytf0375 Mod intensity - 2.0-3.0 10/03/2014 Pt Cbk6564 Hi intensity - 3.0-4.0 10/03/2014 D-Dimer D-DIMER 475 NG/ML 09/25/2014 D-Dimer COMMENT 09/25/2014 Comp Metabolic Cft993 NA 137 mEq/L 09/22/2014 Comp Metabolic Jiy209 K 4.2 mEq/L 09/22/2014 Comp Metabolic Oog670 CL 102 mEq/L 09/22/2014 Comp Metabolic Hll552 CO2 25.0 mEq/L 09/22/2014 Comp Metabolic Ibd351 AN ION GAP 14 09/22/2014 Comp Metabolic Mpd924 GL UCOSE 94 mg/dL 09/22/2014 Comp Metabolic Myj486 Cr eat 0.8 mg/dL 09/22/2014 Comp Metabolic Kvl878 eG FR 102 ml/min/1.73m2 09/06 Comp Metabolic Ckq025 BUN 15 mg/dL 09/22/2014 Comp Metabolic Cls451 B/ C Ratio 18.8 Ratio 09/22/2014 Comp Metabolic Ksx537 CA LCIUM 9.4 mg/dL 09/22/2014 Comp Metabolic Aog803 AL K PHOS 65 U/L 09/22/2014 Comp Metabolic Iff115 T(SGOT) 15 U/L 09/22/2014 Comp Metabolic Amj685 AL T(SGPT) 8 U/L 09/22/2014 Comp Metabolic Mez324 BI LI T 0.4 mg/dL 09/22/2014 Comp Metabolic Uob820 AL BUMIN 4.0 g/dL 09/22/2014 Comp Metabolic Fgu332 TP RO 6.8 g/dL 09/22/2014 Comp Metabolic Ljs012 GL OB 2.8 g/dL 09/22/2014 Comp Metabolic Ebf072 A/ G Ratio 1.4 Ratio 09/22/2014 Comp Metabolic Fgc573 Os mo 274 mOsmo 09/22/2014 Magnesium Ord90 Mag 1.1 Result Verified By Repeat Analysis mg/dL 09/22/2014 Pt Iju6876 PT 32.0 seconds 09/22/2014 Pt Apv6146 INR 3.2 09/22/2014 Pt Lct7481 Low Intensity - 1.5-2.0 09/22/2014 Pt Igp9690 Mod intensity - 2.0-3.0 09/22/2014 Pt Lqa7199 Hi intensity - 3.0-4.0 09/22/2014 C-Reactive Protein [...] Result Effective Dates Constitutional No recent illness 08/28/2017 Constitutional No [...] Result Effective Dates Notes Full Exam - Dermatology Constitutional general appearance [...] Procedure Codes Date THER/PROPH/DIAG INJ SC/IM CPT-4: 06424 08/28/2017 ROCEPHIN, PER 250 MG CPT-4: J0696 08/28/2017 TOBACCO-USE [employer] 3-[address]: 962336884 CPT-4: G0436 01/27/2017 TOBACCO-USE [employer]IOLOGIST 3-[address]: 639580803 CPT-4: G0436 11/25/2016 TOBACCO-USE [employer] SOCIOLOGIST 3-[address]: 758307026 CPT-4: G0436 10/15/2016 TOBACCO-USE [employer] SOCIOLOGIST 3-[address]: 900252511 CPT-4: G0436 09/17/2016 THER/PROPH/DIAG INJ SC/IM CPT-4: 94688 01/07/2016 TRIAMCINOLONE ACET I [place] NOS CPT-4: J3301 01/07/2016 TRIAMCINOLONE ACET I [place] NOS CPT-4: J3301 09/21/2014 THER/PROPH/DIAG INJ SC/IM CPT-4: 47300 09/21/2014 Vital Signs Date Vital 08/28/2017 Blood Pressure 1: 138/72 Code: 8480-6 Heart Rate 1: 80 bpm Height: SpO2: 98% Weight: 07/20/2017 Blood Pressure 1: 134/76 Code: 8480-6 BMI: 29.6 Code: 53691-9 Heart Rate 1: 82 bpm Height: 5'3" [...] 1: 128/78 Code: 8480-6 BMI: 33.3 Code: 17908-8 Heart Rate 1: 72 bpm Height: 5'3" SpO2: 97% Weight: 188 lbs 01/10/2016 Blood Pressure 1: 132/76 Code: 8480-6 BMI: 33.1 Code: 02239-6 Heart Rate 1: 72 bpm Height: 5'3" SpO2: 97% Weight: 187 lbs 12/25/2015 Blood Pressure 1: 154/82 Code: 8480-6 BMI: 33.1 Code: 15124-6 Heart Rate 1: 72 bpm Height: 5'3" SpO2: 97% Weight: 187 lbs 10/11/2015 Blood Pressure 1: 110/62 Code: 8480-6 BMI: 34.7 Code: 23849-1 Heart Rate 1: 70 bpm Height: 5'3" SpO2: 93% Weight: 196 lbs 08/24/2015 Blood Pressure 1: 132/62 Code: 8480-6 BMI: 35.3 Code: 90383-7 Heart Rate 1: 62 bpm Height: 5'3" SpO2: 93% Weight: 199 lbs 08/20/2015 Blood Pressure 1: 140/68 Code: 8480-6 BMI: 35.3 Code: 65517-8 Heart Rate 1: 74 bpm Height: 5'3" SpO2: 96% Weight: 199 lbs 12/28/2014 Blood Pressure 1: 130/72 Code: 8480-6 BMI: 33.1 Code: 96223-4 Heart Rate 1: 60 bpm Height: 5'3" SpO2: 97% Weight: 187 lbs 10/31/2014 Blood Pressure 1: 118/72 Code: 8480-6 BMI: 31.2 Code: 48685-2 Heart Rate 1: 58 bpm Height: 5'3" SpO2: 98% Weight: 176 lbs 10/02/2014 Blood Pressure 1: 138/74 Code: 8480-6 BMI: 30.6 Code: 43820-1 Heart Rate 1: 72 bpm Height: 5'3" Weight: 173 lbs 09/21/2014 Blood Pressure 1: 138/72 Code: 8480-6 BMI: 30.5 Code: 69976-4 Heart Rate 1: 60 bpm Height: 5'3" SpO2: 96% Weight: 172 lbs Functional Status No Functional Status data History of Present Illness Symptom Name Status Resu lt Effective Date Notes cellulitis Quality acute 08/28/2017 None cellulitis Limitation [...] daily 12/25/2015 None Hospital Follow Up _ [facility] er: diverticulitis 10/11/2015 None Hospital [...] Advance Directive data Encounters Encounter Performer Loca tidiana Codes Date EST. PATIENT, LEVEL III Diagnosis: Cellulitis of left axilla[ICD10: L03.112] Diagnosis: Cellulitis of right axilla[ICD10: L03.111] Rox Alvarez MD, [facility] CPT-4: 25441 08/28/2017 [id number] EST. PATIENT, LEVEL III Diagnosis: Generalized anxiety disorder[ICD10: F41.1] Diagnosis: Major depressive disorder, single episode, moderate[ICD10: F32.1] Diagnosis: Essential (primary) hypertension[ICD10: I10] Diagnosis: Acquired absence of left leg above knee[ICD10: Z89.612] Diagnosis: Chronic pain syndrome[ICD10: G89.4] Rox Alvarez MD, [facility] CPT-4: 83022 07/20/2017 [id number] EST. PATIENT, LEVEL IV Diagnosis: Generalized anxiety disorder[ICD10: F41.1] Diagnosis: Major depressive disorder, single episode, moderate[ICD10: F32.1] Diagnosis: Diarrhea, unspecified[ICD10: R19.7] Rox Alvarez MD, [facility] CPT-4: 22794 04/21/2017 [id number] EST. PATIENT, LEVEL IV Diagnosis: Generalized anxiety disorder[ICD10: F41.1] Diagnosis: Major depressive disorder, single episode, moderate[ICD10: F32.1] Diagnosis: Nausea[ICD10: R11.0] Diagnosis: Diarrhea, unspecified[ICD10: R19.7] Rox Alvarez MD, [facility] CPT-4: 67604 04/07/2017 ([id number]) [id number] EST. P ATIENT, LEVEL IV Diagnosis: Essential (primary) hypertension[ICD10: I10] Diagnosis: Nausea[ICD10: R11.0] Diagnosis: Other fecal abnormalities[ICD10: R19.5] Diagnosis: Tobacco use[ICD10: Z72.0] Selena Alvarez MD, [facility] CPT-4: 17892 01/27/2017 ([id number]) 72401 EST. P ATIENT, LEVEL III Diagnosis: Essential (primary) hypertension[ICD10: I10] Diagnosis: Chronic obstructive pulmonary disease, unspecified[ICD10: J44.9] Diagnosis: Rash and other nonspecific skin eruption[ICD10: R21] Selena Alvarez MD, [facility] CPT-4: 67946 11/25/2016 ([id number]) 94081 EST. P ATIENT, LEVEL III Diagnosis: Other sites of candidiasis[ICD10: B37.89] Selena Alvarez MD, [facility] CPT-4: 76341 10/15/2016 ([id number]) 38385 EST. P ATIENT, LEVEL IV Diagnosis: Essential (primary) hypertension[ICD10: I10] Diagnosis: Urinary tract infection, site not specified[ICD10: N39.0] Diagnosis: Localized edema[ICD10: R60.0] Selena Alvarez MD, [facility] CPT-4: 62977 09/17/2016 29763 EST. 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 PATIENT, LEVEL III Diagnosis: Other specified bacterial intestinal infections[ICD10: A04.8] Rox Alvarez MD [facility] CPT-4: 87054 04/16/2016 90444 EST. PATIENT, LEVEL II Diagnosis: Pain in right foot[ICD10: M79.671] Rox Alvarez MD [facility] CPT-4: 40327 01/21/2016 40357 EST. PATIENT, LEVEL III Diagnosis: Encounter for therapeutic drug level monitoring[ICD10: Z51.81] Diagnosis: Rash and other nonspecific skin eruption[ICD10: R21] Rox Alvarez MD [facility] CPT-4: 74901 01/10/2016 63802 EST. PATIENT, LEVEL III Diagnosis: Rash and other nonspecific skin eruption[ICD10: R21] Rox Alvarez MD, [facility] CPT-4: 77230 01/07/2016 ([id number]) Miscellaneou s no charge Diagnosis: Cutaneous abscess of left axilla[ICD10: L02.412] Rox Alvarez MD, [facility] CPT-4: 49393 01/02/2016 ([id number]) Miscellaneou s no charge Diagnosis: Cutaneous abscess of left axilla[ICD10: L02.412] Rox Alvarez MD [facility] CPT-4: 37013 01/01/2016 ([id number]) Miscellaneou s no charge Diagnosis: Cutaneous abscess of left axilla[ICD10: L02.412] Rox Alvarez MD, [facility] CPT-4: 85445 12/31/2015 ([id number]) Patient adm itted to the hospital from clinic (NO CHARGE) Diagnosis: Cutaneous abscess of left axilla[ICD10: L02.412] Rox Alvarez MD, [facility] CPT-4: 12315F 12/25/2015 36472 EST. PATIENT, LEVEL III Diagnosis: Encounter for follow-up examination after completed treatment for conditions other than malignant neoplasm[ICD10: Z09] Diagnosis: Diverticulitis of intestine, part unspecified, without perforation or abscess with bleeding[ICD10: K57.93] Diagnosis: Cellulitis of left toe[ICD10: L03.032] Diagnosis: Other obesity due to excess calories[ICD10: E66.09] Diagnosis: Other chcf (current) drug therapy[ICD10: Z79.899] Rox Alvarez MD, [facility] CPT-4: 34153 10/11/2015 ([id number]) Miscellaneou s no charge Diagnosis: Encounter for therapeutic drug level monitoring[ICD10: Z51.81] Diagnosis: Other acute osteomyelitis, left ankle and foot[ICD10: M86.172] Rox Alvarez MD, [facility] CPT-4: 55355 08/24/2015 27169 EST. PATIENT, LEVEL IV Diagnosis: Cellulitis of left toe[ICD10: L03.032] Rox Alvarez MD, [facility] CPT-4: 93107 08/20/2015 81565 EST. PATIENT, LEVEL III Diagnosis: Essential (primary) hypertension[ICD10: I10] Diagnosis: Peripheral vascular disease, unspecified[ICD10: I73.9] Diagnosis: Dermatitis, unspecified[ICD10: L30.9] Rox Alvarez MD, [facility] CPT- 4: 21037 12/28/2014 ([id number]) 92829 EST. P ATIENT, LEVEL III Diagnosis: ESSENTIAL HYPERTENSION[ICD9: 401.9] Diagnosis: PAD (peripheral artery disease)[ICD9: 443.9] Diagnosis: Anticoagulated on Coumadin[ICD9: V58.83] [facility] CPT-4: 57828 10/31/2014 ([id number]) 06857 EST. P ATIENT, LEVEL III Diagnosis: PAD (peripheral artery disease)[ICD9: 443.9] Diagnosis: Anticoagulated on Coumadin[ICD9: V58.83] Diagnosis: SCLERITIS[ICD9: 379.00] Diagnosis: ESSENTIAL HYPERTENSION[ICD9: 401.9] [facility] CPT- 4: 17829 10/02/2014 ([id number]) OFFICE [facility] LEVEL 4 Diagnosis: GOUT[ICD9: 274.9] Diagnosis: COPD (chronic obstructive pulmonary disease)[ICD9: 496] Diagnosis: PAD (peripheral artery disease)[ICD9: 443.9] Diagnosis: ESSENTIAL HYPERTENSION[ICD9: 401.9] [facility] CPT- 4: 75683 09/21/2014 Plan of Care Planned Activity Notes C odes Status Date Appointment: Rox Luciano WPtel: [address] [place], [place] [phone] (30 min) Complex 11/17/2017 Visit Plan: Cellulitis [...] discharge. 08/28/2017 Appointment: Rox Luciano WPtel: [phone] [facility] (30 min) Complex 08/28/2017 Patient Education: Patient [...] independently. 07/20/2017 [facility]ment[phone] ([facility] Complex 07/20/2017 Patient Education: Patient Medication Summary Completed 07/20/2017 Referral: Stephanie Silva WPtel: Referral Initiated 05/04/2017 Care Plan: Referral Order SNOMED-CT : [id number] Pending 04/30/2017 Visit Plan: Chronic Depression and [...] stomach pain. 04/21/2017 Appointment: Rox Luciano WPtel: [facility]5 [facility] (30 min) Complex 04/21/2017 Patient Education: [...] stomach pain. 04/07/2017 Appointment: [facility]el[phone] ([facility] min) Complex 04/07/2017 Patient Education: Patient Medication Summary Completed 04/07/2017 Appointment: Selena Alvarez WPtel: [phone] [facility] (15 min) Moderate 02/26/2017 Visit Plan: Hypertension [...] not improving. 01/27/2017 Appointment: Selena Alvarez WPtel: [facility]5 [facility] (15 min) Moderate 01/27/2017 Patient Education: [...] with nystatin 11/25/2016 Appointment: Selena Alvarez WPtel: [facility]5 [facility] (15 min) Moderate 11/25/2016 Appointment: Selena Alvarez WPtel: [facility]5 [facility] (15 min) Moderate 11/25/2016 Patient Education: Patient [...] of over-medication. 10/15/2016 Appointment: Selena Alvarez WPtel: [phone] [facility] (15 min) Moderate 10/15/2016 Patient Education: Patient Medication Summary Completed 10/15/2016 Patient Education: Smoking and Tobacco Addiction Completed 10/15/2016 Appointment: Rox Luciano WPtel: [facility]5 [facility] (30 min) Complex 09/18/2016 Visit Plan: Hypertension [...] mobility evaluation. 08/14/2016 Appointment: [facility]el[phone] ([facility] min) Complex 08/14/2016 Patient Education: [...] stomach pain. 04/16/2016 Appointment: Rox Luciano WPtel: [address] [place] [address] (15 min) Moderate 04/16/2016 Patient Education: Patient Medication Summary Completed 04/16/2016 Patient Education: Smoking and Tobacco Addiction Completed 04/16/2016 Referral: Dr Arboleda Referral Completed 02/14/2016 Care Plan: Referral Order SNOMED-CT : [id number] Pending 01/29/2016 Visit Plan: Right foot pain [...] symptoms, worsening redness, warmth, discharge. 01/10/2016 Appointment: Mustapha Rox WPte: [address] [place] [address] (30 min) [facility] 01/10/2016 Patient Education: Patient Medication Summary [...] I&D. 12/25/2015 Appointment: E[facility] Westbrook [facility]Ptel[phone] [facility] (15 min) Moderate 12/25/2015 Patient Education: Patient [...] management. 10/11/2015 Appointment: Rox Luciano [facility]Ptel: [phone] (30 min) Complex 10/11/2015 Patient Education: Patient Medication Summary Completed 10/11/2015 Patient Education: Smoking and Tobacco Addiction Completed 10/11/2015 Patient Education: Obesity Completed 10/11/2015 Referral: Gavino Navarro they are g oing to call if they get him in before if not we will call Dr shook Initiated 09/27/2015 Appointment: Emy Westbrook WPtel: [phone] [phone] (15 min) Moderate 08/24/2015 Patient Education: Patient Medication Summary Completed 08/24/2015 Patient Education: Smoking and Tobacco Addiction Completed 08/24/2015 Patient Education: Patient Medication Summary Completed 08/23/2015 Appointment: Emy Westbrook WPtel: [address] [place], [place] [phone] (30 min) Complex 08/22/2015 Referral: [facility] WPtel: 1 [facility] Referral Initiated 08/22/2015 Visit Plan: [facility] on [...] [facility] Follow up 12/20/2014 Visit Plan: Hypertension - [...] 09/21/2014 Care Plan: Referral Order SNOMED-CT : [id number] Ordered 09/21/2014 Appointment: Selena Alvarez WPtel: [phone] [place] [address] [place] ([place]) New Patient 09/20/2014 Referral: Martinez Wren WPtel: [phone] Referral Initiated Referral: Gavino Navarro Referral Initiated Referral: [facility] WPtel: [address] Referral Initiated Referral: Dr Arboleda Referral Completed Referral: Stephanie Silva WPtel: Referral Initiated Instructions Comment . Rash - pt states t hat [...] Will refer to PT for mobility evaluation. We will check PT/INR today Go directly [...] monitor symptoms. check INR on thursday . Cellulitis bilater al axilla - The [...] change in symptoms, worsening redness, warmth, discharge. You need to see Dr. Holger SURESH. [...] lactobacillus, monitor output, call if not improving. GO TO YOUR APPOINTME NT WITH DR. NAVARRO ON THURSDAY AT 1230. CONTINUE WITH THE BACTRIM 1 PILL TWICE A DAY. WE WILL CHECK YOUR COUMADIN LEVEL TODAY AND SEE IF WE NEED TO ADJUST IT. WE WILL CALL DR. DOMINGO OFFICE AND SEE WHEN YOUR APPOINTMENT IS. CALL US WITH ANY QUESTIONS OR CONCERNS. . will refer to Dr. Edgar jordan will [...] of groin - continue with nystatin . Pt on chronic anti coagulation. Dr. [...] cleaned and dressing applied. probiotics - culture [facility] or l[facility] colon heatlh. . Gastroenteritis - [...]
--- OUTSIDE RECORDS SUMMARY | 2019-08-20 18:36 | XMS REPORT | CCD ---
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 Name Role Phone PP Unavailable CCM Unavailable Summary Purpose Interface Exchange Insurance Providers Payer name Policy type / Coverage type Covered alliance party ID Effective Begin Date Effective End Date [facility] Commercial Insurance [id number] 2017 Unknown Family history Father Diagnosis Age At Onset Hyperlipidemia Unknown Coronary Artery Disease Unknown Stroke Unknown Cancer Unknown Congestive heart failure Unknown Mother Diagnosis Age At Onset Hypertension Unknown kidney disease Unknown Cancer Unknown Stroke Unknown Hyperlipidemia Unknown Coronary Artery Disease Unknown Congestive heart failure Unknown Social History Social History Element Codes Description Effective Dates Tobacco history SNOMED CT: 763929830862432 Current some days smoker 09/21/2014 Allergies, Adverse [...] V67.59 ICD-10: Z09 Active 10/10/2015 Unknown 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 ICD-9: V58.69 ICD-10: [...] ICD-9: V67.59 ICD-10: Z09 10/10/2015 Active 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 ICD-9: V58.69 ICD-10: [...] Date Stop Date Sta tus Fill Instructions gabapentin 300 mg ca psule RxNorm: 688168 TAKE ONE CAPSULE BY M OUTH THREE TIMES A DAY 03/04/2018 02/26/2019 Ac tive hydrocodone 7.5 mg-a cetaminophen 325 mg tablet RxNorm: 676687 1 Tablet(s) PO QID as needed 02/18/2018 03/19/2018 Active hydrocodone 7.5 mg-a cetaminophen 325 mg tablet RxNorm: 048670 1 Tablet(s) PO QID as needed 01/19/2018 02/17/2018 Inactive hydrocodone 7.5 mg-a cetaminophen 325 mg tablet RxNorm: 170275 1 Tablet(s) PO QID as needed 12/16/2017 01/14/2018 Inactive Pepcid 20 mg tablet RxNorm: 351604 Tablet(s) TAKE ONE TABLET BY MOUTH TWICE A DAY 12/08/2017 05/06/2018 Active hydrocodone 7.5 mg-a cetaminophen 325 mg tablet RxNorm: 366515 1 Tablet(s) PO QID as needed 11/18/2017 12/15/2017 Inactive gabapentin 300 mg ca psule RxNorm: 827674 Capsule(s) TAKE ONE C APSULE BY MOUTH THREE TIMES A DAY 11/11/2017 03/03/2018 Inactive gabapentin 300 mg ca psule RxNorm: 745240 TAKE ONE CAPSULE BY M OUTH THREE TIMES A DAY 11/10/2017 11/10/2017 Inactive hydrocodone 7.5 mg-a cetaminophen 325 mg tablet RxNorm: 926048 1 Tablet(s) PO QID as needed 10/19/2017 11/17/2017 Inactive hydrocodone 7.5 mg-a cetaminophen 325 mg tablet RxNorm: 156699 1 Tablet(s) PO QID as needed 09/16/2017 10/15/2017 Inactive doxycycline hyclate 100 mg capsule RxNorm: 3539347 1 Capsule(s) PO BID 08/28/2017 09/06/2017 In active hydrocodone 7.5 mg-a cetaminophen 325 mg tablet RxNorm: 097892 1 Tablet(s) PO QID as needed 08/21/2017 09/15/2017 Inactive Lexapro 10 mg tablet RxNorm: 727214 TAKE ONE TABLET BY MOUTH AT BEDTIME 08/02/2017 07/27/2018 Ac tive Zyrtec 10 mg tablet RxNorm: 5163162 1 Tablet(s) PO daily 07/20/2017 11/16/2017 Inactive hydrocodone 7.5 mg-a cetaminophen 325 mg tablet RxNorm: 115690 1 Tablet(s) PO QID as needed 07/20/2017 09/15/2017 Inactive furosemide 40 mg tablet RxNorm: 280346 Tablet(s) TAKE ONE TABLET BY MOUTH DAILY NEEDED FOR SWELLING 07/08/2017 01/03/2018 Inactive Pepcid 20 mg tablet RxNorm: 522922 TAKE ONE TABLET BY MOUTH TWICE A DAY 06/29/2017 11/25/2017 In active gabapentin 300 mg ca psule RxNorm: 810619 TAKE ONE CAPSULE BY M OUTH THREE TIMES A DAY 06/29/2017 10/26/2017 Inactive hydrocodone 7.5 mg-a cetaminophen 325 mg tablet RxNorm: 124232 1 Tablet(s) PO QID as needed 06/18/2017 07/17/2017 Inactive hydrocodone 7.5 mg-a cetaminophen 325 mg tablet RxNorm: 612969 1 Tablet(s) PO QID as needed 05/18/2017 06/16/2017 Inactive hydrocodone 7.5 mg-a cetaminophen 325 mg tablet RxNorm: 755002 1 Tablet(s) PO QID as needed 04/21/2017 05/17/2017 Inactive hyoscyamine 0.125 mg sublingual tablet RxNorm: 4909488 1 Tablet(s) SL TID a s needed 04/21/2017 04/25/2017 In active Lexapro 10 mg tablet RxNorm: 481669 1 Tablet(s) PO QHS 04/21/2017 07/19/2017 Inactive Flagyl 500 mg tablet RxNorm: 431146 1 Tablet(s) PO TID 04/07/2017 04/16/2017 Inactive Lexapro 10 mg tablet RxNorm: 957959 1 Tablet(s) PO QHS 04/07/2017 04/20/2017 Inactive hydrocodone 7.5 mg-a cetaminophen 325 mg tablet RxNorm: 371440 1 Tablet(s) PO QID as needed 03/24/2017 04/20/2017 Inactive allopurinol 100 mg t ablet RxNorm: 663934 TAKE ONE TABLET BY [facility] DAILY 03/10/2017 03/04/2018 In active hydrocodone 7.5 mg-a cetaminophen 325 mg tablet RxNorm: 066423 1 Tablet(s) PO QID as needed 02/11/2017 03/12/2017 Inactive gabapentin 300 mg ca psule RxNorm: 577178 TAKE ONE CAPSULE BY M [facility] THREE TIMES A DAY 02/02/2017 06/28/2017 Inactive Zofran ODT 4 mg disi ntegrating tablet RxNorm: 950170 1 Tablet(s) PO QID as needed nausea and vomitting 01/27/2017 No Stop Date Active hydrocodone 7.5 mg-a cetaminophen 325 mg tablet RxNorm: 926711 1 Tablet(s) PO QID as needed 01/13/2017 02/10/2017 Inactive potassium chloride E R 20 mEq tablet,extended release RxNorm: 350649 TAKE ONE TABLET BY MOUTH DAILY WHEN TAKING FUROSEMIDE NEEDED 01/12/2017 07/10/2017 Inactive furosemide 40 mg tablet RxNorm: 732811 TAKE ONE TABLET BY MOUTH DAILY NEEDED FOR SWELLING 01/12/2017 07/09/2017 Inactive promethazine 25 mg t ablet RxNorm: 646873 TAKE ONE TABLET BY MO [facility] THREE TIMES A DAY NEEDED FOR NAUSEA AND VOMITING 01/12/2017 01/31/2017 Inactive promethazine 25 mg t ablet RxNorm: 635564 1 Tablet(s) PO TID as needed nausea and vomitting 01/06/2017 01/11/2017 Inactive Lomotil 2.5 mg-0.025 mg tablet RxNorm: 1451938 1-2 Tablet(s) PO BID as needed diarrhea 01/06/2017 01/05/2017 Inactive Lomotil 2.5 mg-0.025 mg tablet RxNorm: 5449248 1-2 Tablet(s) PO BID as needed diarrhea 01/06/2017 01/07/2017 Inactive Pepcid 20 mg tablet RxNorm: 486952 1 Tablet(s) PO BID 12/19/2016 06/16/2017 Inactive Pepcid 20 mg tablet RxNorm: 635780 1 Tablet(s) PO BID 12/16/2016 12/18/2016 Inactive hydrocodone 7.5 mg-a cetaminophen 325 mg tablet RxNorm: 346217 1 Tablet(s) PO QID as needed 12/16/2016 01/12/2017 Inactive hydrocodone 7.5 mg-a cetaminophen 325 mg tablet RxNorm: 570891 1 Tablet(s) PO QID as needed 11/18/2016 12/15/2016 Inactive allopurinol 100 mg t ablet RxNorm: 888778 TAKE ONE TABLET BY [facility] DAILY 10/29/2016 02/25/2017 In active hydrocodone 7.5 mg-a cetaminophen 325 mg tablet RxNorm: 156236 1 Tablet(s) PO QID as needed 10/15/2016 11/13/2016 Inactive nystatin 100,000 uni t/gram topical cream RxNorm: 915030 1 Gram(s) TOP QID 10/15/2016 11/25/2016 In active nystatin 100,000 uni t/gram topical powder RxNorm: 377548 1 Gram(s) TOP TID TO GROIN OR AFFECTED AREA 10/14/2016 No Stop Date Active hydrocodone 7.5 mg-a cetaminophen 325 mg tablet RxNorm: 157861 1 Tablet(s) PO QID as needed 09/17/2016 10/14/2016 Inactive furosemide 40 mg tablet RxNorm: 351069 1 Tablet(s) PO daily as needed swelling 09/17/2016 01/11/2017 In active potassium chloride E R 20 mEq tablet,extended release RxNorm: 160812 1 Tablet(s) PO daily as needed take when taking a lasix pill 09/17/2016 01/11/2017 Inactive Levaquin 500 mg tablet RxNorm: 261655 1 Tablet(s) PO daily 09/17/2016 09/21/2016 Inactive hydrocodone 7.5 mg-a cetaminophen 325 mg tablet RxNorm: 105765 1 Tablet(s) PO QID as needed 08/14/2016 09/12/2016 Inactive cyclobenzaprine 5 mg tablet RxNorm: 628474 1 Tablet(s) PO TID as needed 07/25/2016 07/29/2016 In active cyclobenzaprine 5 mg tablet RxNorm: 734270 1 Tablet(s) PO TID as needed 07/25/2016 07/24/2016 In active hydrocodone 7.5 mg-a cetaminophen 325 mg tablet RxNorm: 255406 1 Tablet(s) PO QID as needed 07/21/2016 08/13/2016 Inactive warfarin 1 mg tablet RxNorm: 057127 TAKE ONE TABLET BY MOUTH EVERY EVENING 06/26/2016 08/04/2016 In active hydrocodone 7.5 mg-a cetaminophen 325 mg tablet RxNorm: 240677 1 Tablet(s) PO QID as needed 06/24/2016 07/20/2016 Inactive hydrocodone 5 mg-yanira taminophen 325 mg tablet RxNorm: 826967 1 Tablet(s) PO Q6 as needed for pain 06/09/2016 06/10/2016 Inactive warfarin 1 mg tablet RxNorm: 569985 TAKE ONE TABLET BY MOUTH EVERY EVENING 06/02/2016 06/21/2016 In active allopurinol 100 mg t ablet RxNorm: 407952 TAKE ONE TABLET BY [facility] DAILY 05/21/2016 10/17/2016 In active hydrocodone 7.5 mg-a cetaminophen 325 mg tablet RxNorm: 720867 1 Tablet(s) PO QID as needed 05/09/2016 06/07/2016 Inactive gabapentin 300 mg ca psule RxNorm: 125010 Capsule(s) TAKE ONE C APSULE BY MOUTH THREE TIMES A DAY 04/25/2016 11/09/2017 Inactive promethazine 25 mg t ablet RxNorm: 248757 TAKE ONE TABLET BY MO [facility] THREE TIMES A DAY NEEDED 2016 05/01/2016 Inactive warfarin 1 mg tablet RxNorm: 070707 TAKE ONE TABLET BY MOUTH EVERY EVENING 2016 05/31/2016 In active promethazine 25 mg t ablet RxNorm: 058088 1 Tablet(s) PO TID as needed 04/16/2016 04/21/2016 In active warfarin 1 mg tablet RxNorm: 194428 TAKE ONE TABLET BY MOUTH EVERY EVENING 02/13/2016 04/12/2016 In active magnesium oxide 400 mg tablet RxNorm: 674345 TAKE ONE TABLET BY MO [facility] TWICE A DAY 02/07/2016 01/01/2017 In active hydrocodone 5 mg-yanira taminophen 325 mg tablet RxNorm: 935488 1 Tablet(s) PO Q6 as needed for pain 01/21/2016 02/19/2016 Inactive warfarin 1 mg tablet RxNorm: 768537 TAKE ONE TABLET BY MOUTH EVERY EVENING 01/17/2016 02/05/2016 In active gabapentin 300 mg ca psule RxNorm: 692082 Capsule(s) TAKE ONE C APSULE BY MOUTH THREE TIMES A DAY 01/11/2016 04/24/2016 Inactive prednisone 10 mg tablet RxNorm: 536049 Tablet(s) PO UD 01/10/2016 No Stop Date Active 60mg x2 days, then 50mg x2 days, then 40mg x2 days, 30mg x2 days, 20mg x2 days, 10mg x2days, 5mg every other day x 2 doses Kenalog 40 mg/mL cassius pension for injection RxNorm: 9033067 Milliliter(s) Inj 01/07/2016 01/07/2016 In active warfarin 1 mg tablet RxNorm: 812136 TAKE ONE TABLET BY MOUTH EVERY EVENING 01/01/2016 01/16/2016 In active hydrocodone 5 mg-yanira taminophen 325 mg tablet RxNorm: 894947 1 Tablet(s) PO Q6 as needed for pain 01/01/2016 01/15/2016 Inactive gabapentin 300 mg ca psule RxNorm: 042306 TAKE ONE CAPSULE BY M OUTH THREE TIMES A DAY 12/12/2015 01/10/2016 Inactive warfarin 5 mg tablet RxNorm: 963994 1 Tablet(s) PO daily 12/05/2015 No Stop Date Active warfarin 1 mg tablet RxNorm: 506405 TAKE ONE TABLET BY MOUTH EVERY EVENING 11/13/2015 12/22/2015 In active hydrocodone 5 mg-yanira taminophen 325 mg tablet RxNorm: 480335 1 Tablet(s) PO Q6 as needed for pain 10/26/2015 11/09/2015 Inactive allopurinol 100 mg t ablet RxNorm: 035998 1 Tablet(s) PO daily TAKE ONE TABLET BY MOUTH DAILY 10/18/2015 04/14/2016 Inactive hydrocodone 5 mg-yanira taminophen 325 mg tablet RxNorm: 390535 1 Tablet(s) PO Q6 as needed for pain 09/26/2015 10/10/2015 Inactive gabapentin 300 mg ca psule RxNorm: 591223 TAKE ONE CAPSULE BY M OUTH THREE TIMES A DAY 09/14/2015 12/11/2015 Inactive warfarin 1 mg tablet RxNorm: 267453 1 Tablet(s) PO QPM 09/14/2015 11/12/2015 Inactive hydrocodone 5 mg-yanira taminophen 325 mg tablet RxNorm: 644092 1 Tablet(s) PO Q6 as needed for pain 09/12/2015 09/25/2015 Inactive hydrocodone 5 mg-yanira taminophen 325 mg tablet RxNorm: 150296 1 Tablet(s) PO Q6 as needed for pain 08/22/2015 09/05/2015 Inactive Bactrim DS 800 mg-16 0 mg tablet RxNorm: 812103 1 Tablet(s) PO BID 08/20/2015 09/02/2015 Inactive magnesium oxide 400 mg tablet RxNorm: 274659 TAKE ONE TABLET BY MO [facility] TWICE A DAY 01/20/2015 01/14/2016 In active gabapentin 300 mg ca psule RxNorm: 798015 TAKE ONE CAPSULE BY M OUTH THREE TIMES A DAY 01/20/2015 05/19/2015 Inactive magnesium oxide 400 mg tablet RxNorm: 189804 1 Tablet(s) PO BID 01/17/2015 05/16/2015 Inactive gabapentin 300 mg ca psule RxNorm: 159292 1 Capsule(s) PO TID 01/17/2015 05/16/2015 Inactive allopurinol 100 mg t ablet RxNorm: 775891 TAKE ONE TABLET BY MO [facility] DAILY 10/18/2014 10/12/2015 In active Kenalog 40 mg/mL [facility] pension for injection RxNorm: 7707031 1 Milliliter(s) Inj 09/21/2014 09/21/2014 In active allopurinol 100 mg t ablet RxNorm: 320886 1 Tablet(s) PO daily 09/21/2014 10/17/2014 Inactive gabapentin 300 mg ca psule RxNorm: 523145 1 Capsule(s) PO TID 09/12/2014 01/09/2015 Inactive gabapentin 300 mg ca psule RxNorm: 362350 1 Capsule(s) PO TID 09/12/2014 09/11/2014 Inactive magnesium oxide 400 mg tablet RxNorm: 386757 1 Tablet(s) PO BID 09/12/2014 01/09/2015 Inactive magnesium oxide 400 mg tablet RxNorm: 157585 1 Tablet(s) PO BID 09/12/2014 09/11/2014 Inactive lisinopril 5 mg tablet RxNorm: 457979 1 Tablet(s) PO daily No Start Date Active atorvastatin oral RxNorm: 33078 oral No Start Date Active minocycline 50 mg ca psule RxNorm: 300095 1 Capsule(s) PO BID o rdered by Dr. Saravia No Start Date Active Coreg 6.25 mg tablet RxNorm: 571505 1 Tablet(s) PO BID No Start Date Active Combivent Respimat 2 0 mcg-100 mcg/actuation solution for inhalation RxNorm: 4217215 1 Puff(s) INH as needed No Start Date Active Ventolin Refill 90 m cg/actuation aerosol inhaler RxNorm: 495596 2 INH as needed No Start Date Active Centrum Silver Women oral RxNorm: [address] art Date Active aspirin 81 mg capsul e,delayed release RxNorm: 411580 1 Capsule(s) PO daily No Start Date Active nystatin 100,000 uni t/gram topical powder RxNorm: 689904 1 Gram(s) TOP TID No Start Date 10/13/2016 Inactive warfarin 1 mg tablet RxNorm: 589949 oral No Start Date 09/13/2015 Inactive Pepcid 20 mg tablet RxNorm: 389694 1 Tablet(s) PO BID No Start Date 12/15/2016 Inactive Protonix 40 mg table t,delayed release RxNorm: 604677 1 Tablet(s) PO daily No Start Date 09/16/2016 Inactive warfarin 5 mg tablet RxNorm: 453264 1 Tablet(s) PO daily 1.5 tabs on Thu No Start Date 12/04/2015 Inactive furosemide 40 mg tablet RxNorm: 112072 1 Tablet(s) PO daily No Start Date 09/16/2016 Inactive Medication Administered Medication Codes Instruc tions Start Date Status Kenalog 40 mg/mL suspension for injection RxNorm: 2648903 Milliliter 01/07/2016 No longer Active Kenalog 40 mg/mL suspension for injection RxNorm: 3833993 1Milliliter 09/21/2014 N o longer Active Immunizations No Immunization data Assessments Condition Codes Effectiv e Dates Cellulitis of right axilla ICD-10: L 03.111 ICD-9: 682.3 08/28/2017 Cellulitis of left axilla ICD-10: L0 3.112 ICD-9: 682.3 08/28/2017 Generalized anxiety disorder ICD-10: F41.1 ICD-9: 300.00 07/20/2017 Essential (primary) hypertension ICD -10: I10 ICD-9: 401.9 07/20/2017 Major depressive disorder, single episode, moderate ICD-10: F32.1 ICD-9: 296.22 07/20/2017 Chronic pain syndrome ICD-10: G89.4 ICD-9: 338.4 07/20/2017 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 ICD-9: V49.76 07/20/2017 Diarrhea, unspecified ICD-10: R19.7 ICD-9: 787.91 [...] neoplasm ICD-10: Z09 ICD-9: V67.59 10/11/2015 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 ICD-10: Z79.899 ICD-9: V58.69 [...] Shiga Toxin 1 & 2 Eia Stool 132410 SHIGA TOXIN 1: NEGATIVE 04/12/2017 Shiga Toxin 1 & 2 Eia Stool 415580 SHIGA TOXIN 2: NEGATIVE 04/12/2017 Culture Stool 308013 STO OL CULTURE SEE NOTES 04/12/2017 Clostridium Diff Tox A/B Slx775 Cdiff Negative 04/09/2017 Pt Qku8690 PT 64.8 seconds 01/10/2016 Pt Gcy4792 INR 8.6 01/10/2016 Pt Lnd8497 Low Intensity - 1.5-2.0 01/10/2016 Pt Pvu2991 Mod intensity - 2.0-3.0 01/10/2016 Pt Cgk0062 Hi intensity - 3.0-4.0 01/10/2016 Pt Orf8113 PT 32.1 seconds 11/01/2014 Pt Ior9592 INR 3.2 11/01/2014 Pt Hjx5634 Low Intensity - 1.5-2.0 11/01/2014 Pt Ffm4327 Mod intensity - 2.0-3.0 11/01/2014 Pt Cpu1940 Hi intensity - 3.0-4.0 11/01/2014 Pt Bhd9814 PT 30.2 seconds 10/03/2014 Pt Rbo1312 INR 3.0 10/03/2014 Pt Rma6633 Low Intensity - 1.5-2.0 10/03/2014 Pt Qbc7762 Mod intensity - 2.0-3.0 10/03/2014 Pt Rjb2127 Hi intensity - 3.0-4.0 10/03/2014 D-Dimer D-DIMER 475 NG/ML 09/25/2014 D-Dimer 173006 COMMENT 09/25/2014 Magnesium Ord90 Mag 1.1 Result Verified By Repeat Analysis mg/dL 09/22/2014 Pt Hmf4066 PT 32.0 seconds 09/22/2014 Pt Tqt5421 INR 3.2 09/22/2014 Pt Ijm8298 Low Intensity - 1.5-2.0 09/22/2014 Pt Vni6579 Mod intensity - 2.0-3.0 09/22/2014 Pt Wxa5071 Hi intensity - 3.0-4.0 09/22/2014 Comp Metabolic Ubz562 NA 137 mEq/L 09/22/2014 Comp Metabolic Yow524 K 4.2 mEq/L 09/22/2014 Comp Metabolic Liz698 CL 102 mEq/L 09/22/2014 Comp Metabolic Edz396 CO2 25.0 mEq/L 09/22/2014 Comp Metabolic Mgm851 AN ION GAP 14 09/22/2014 Comp Metabolic Xxu517 GL UCOSE 94 mg/dL 09/22/2014 Comp Metabolic Djz448 Cr eat 0.8 mg/dL 09/22/2014 Comp Metabolic Skh274 eG FR 102 ml/min/1.73m2 09/06 Comp Metabolic Ppv104 BUN 15 mg/dL 09/22/2014 Comp Metabolic Duw555 B/ C Ratio 18.8 Ratio 09/22/2014 Comp Metabolic Cnw158 CA LCIUM 9.4 mg/dL 09/22/2014 Comp Metabolic Gap713 AL K PHOS 65 U/L 09/22/2014 Comp Metabolic Lrl717 T(SGOT) 15 U/L 09/22/2014 Comp Metabolic Bca557 AL T(SGPT) 8 U/L 09/22/2014 Comp Metabolic Zpb996 BI LI T 0.4 mg/dL 09/22/2014 Comp Metabolic Vdw059 AL BUMIN 4.0 g/dL 09/22/2014 Comp Metabolic Egg794 TP RO 6.8 g/dL 09/22/2014 Comp Metabolic Kxo678 GL OB 2.8 g/dL 09/22/2014 Comp Metabolic Exu875 A/ G Ratio 1.4 Ratio 09/22/2014 Comp Metabolic Ojq485 Os mo 274 mOsmo 09/22/2014 C-Reactive Protein [...] Procedure Codes Date THER/PROPH/DIAG INJ SC/IM CPT-4: 66766 08/28/2017 ROCEPHIN, PER 250 MG CPT-4: J0696 08/28/2017 TOBACCO-USE VICE INVESTIGATOR 3-[address]: 256884614 CPT-4: G0436 01/27/2017 TOBACCO-USE VICE INVESTIGATOR 3-[address]: 264458790 CPT-4: G0436 11/25/2016 TOBACCO-USE VICE INVESTIGATOR 3-[address]: 589201827 CPT-4: G0436 10/15/2016 TOBACCO-USE VICE INVESTIGATOR 3-[address]: 374496742 CPT-4: G0436 09/17/2016 THER/PROPH/DIAG INJ SC/IM CPT-4: 14652 01/07/2016 TRIAMCINOLONE ACET I [place] NOS CPT-4: J3301 01/07/2016 TRIAMCINOLONE ACET I [place] NOS CPT-4: J3301 09/21/2014 THER/PROPH/DIAG INJ SC/IM CPT-4: 39892 09/21/2014 Vital Signs Date Vital 08/28/2017 Blood Pressure 1: 138/72 Code: 8480-6 Heart Rate 1: 80 bpm Height: SpO2: 98% Weight: 07/20/2017 Blood Pressure 1: 134/76 Code: 8480-6 BMI: 29.6 Code: 12277-8 Heart Rate 1: 82 bpm Height: 5'3" [...] 1: 128/78 Code: 8480-6 BMI: 33.3 Code: 97743-2 Heart Rate 1: 72 bpm Height: 5'3" SpO2: 97% Weight: 188 lbs 01/10/2016 Blood Pressure 1: 132/76 Code: 8480-6 BMI: 33.1 Code: 16042-3 Heart Rate 1: 72 bpm Height: 5'3" SpO2: 97% Weight: 187 lbs 12/25/2015 Blood Pressure 1: 154/82 Code: 8480-6 BMI: 33.1 Code: 74473-0 Heart Rate 1: 72 bpm Height: 5'3" SpO2: 97% Weight: 187 lbs 10/11/2015 Blood Pressure 1: 110/62 Code: 8480-6 BMI: 34.7 Code: 15851-2 Heart Rate 1: 70 bpm Height: 5'3" SpO2: 93% Weight: 196 lbs 08/24/2015 Blood Pressure 1: 132/62 Code: 8480-6 BMI: 35.3 Code: 45340-3 Heart Rate 1: 62 bpm Height: 5'3" SpO2: 93% Weight: 199 lbs 08/20/2015 Blood Pressure 1: 140/68 Code: 8480-6 BMI: 35.3 Code: 44275-2 Heart Rate 1: 74 bpm Height: 5'3" SpO2: 96% Weight: 199 lbs 12/28/2014 Blood Pressure 1: 130/72 Code: 8480-6 BMI: 33.1 Code: 76578-1 Heart Rate 1: 60 bpm Height: 5'3" SpO2: 97% Weight: 187 lbs 10/31/2014 Blood Pressure 1: 118/72 Code: 8480-6 BMI: 31.2 Code: 10184-8 Heart Rate 1: 58 bpm Height: 5'3" SpO2: 98% Weight: 176 lbs 10/02/2014 Blood Pressure 1: 138/74 Code: 8480-6 BMI: 30.6 Code: 94221-3 Heart Rate 1: 72 bpm Height: 5'3" Weight: 173 lbs 09/21/2014 Blood Pressure 1: 138/72 Code: 8480-6 BMI: 30.5 Code: 37640-4 Heart Rate 1: 60 bpm Height: 5'3" [...] daily 12/25/2015 None Hospital Follow Up _ [facility] er: diverticulitis 10/11/2015 None Hospital Follow [...] Encounters Encounter Performer Loca tion Codes Date 28827 EST. PATIENT, LEVEL III Diagnosis: Cellulitis of left axilla[ICD10: L03.112] Diagnosis: Cellulitis of right axilla[ICD10: L03.111] Rox Alvarez MD, [facility] CPT-4: 19425 08/28/2017 12165 EST. PATIENT, LEVEL III Diagnosis: Generalized anxiety disorder[ICD10: F41.1] Diagnosis: Major depressive disorder, single episode, moderate[ICD10: F32.1] Diagnosis: Essential (primary) hypertension[ICD10: I10] Diagnosis: Acquired absence of left leg above knee[ICD10: Z89.612] Diagnosis: Chronic pain syndrome[ICD10: G89.4] Rox Alvarez MD, [facility] CPT-4: 45902 07/20/2017 28216 EST. PATIENT, LEVEL IV Diagnosis: Generalized anxiety disorder[ICD10: F41.1] Diagnosis: Major depressive disorder, single episode, moderate[ICD10: F32.1] Diagnosis: Diarrhea, unspecified[ICD10: R19.7] Rox Alvarez MD, [facility] CPT-4: 47833 04/21/2017 01738 EST. PATIENT, LEVEL IV Diagnosis: Generalized anxiety disorder[ICD10: F41.1] Diagnosis: Major depressive disorder, single episode, moderate[ICD10: F32.1] Diagnosis: Nausea[ICD10: R11.0] Diagnosis: Diarrhea, unspecified[ICD10: R19.7] Rox Alvarez MD, [facility] CPT-4: 68609 04/07/2017 ([id number]) 50103 EST. P ATIENT, LEVEL IV Diagnosis: Essential (primary) hypertension[ICD10: I10] Diagnosis: Nausea[ICD10: R11.0] Diagnosis: Other fecal abnormalities[ICD10: R19.5] Diagnosis: Tobacco use[ICD10: Z72.0] Selena Alvarez MD, [facility] CPT-4: 84594 01/27/2017 ([id number]) 90993 EST. P ATIENT, LEVEL III Diagnosis: Essential (primary) hypertension[ICD10: I10] Diagnosis: Chronic obstructive pulmonary disease, unspecified[ICD10: J44.9] Diagnosis: Rash and other nonspecific skin eruption[ICD10: R21] Selena Alvarez MD, C CPT-4: 07556 11/25/2016 ([id number]) 20290 EST. P ATIENT, LEVEL III Diagnosis: Other sites of candidiasis[ICD10: B37.89] Selena Alvarez MD, C CPT-4: 46818 10/15/2016 ([id number]) 76034 EST. P ATIENT, LEVEL IV Diagnosis: Essential (primary) hypertension[ICD10: I10] Diagnosis: Urinary tract infection, site not specified[ICD10: N39.0] Diagnosis: Localized edema[ICD10: R60.0] Selena Alvarez MD, [facility] CPT-4: 05935 09/17/2016 [id number] EST. PATIENT, LEVEL IV Diagnosis: Acquired absence of left leg above knee[ICD10: Z89.612] Rox Alvarez MD, [facility] CPT-4: 88390 08/14/2016 55701 EST. PATIENT, LEVEL III Diagnosis: Other specified bacterial intestinal infections[ICD10: A04.8] Rox Alvarez MD, [facility] CPT-4: 65457 04/16/2016 20855 EST. PATIENT, LEVEL II Diagnosis: Pain in right foot[ICD10: M79.671] Rox Alvarez MD, [facility] CPT-4: 79492 01/21/2016 60239 EST. PATIENT, LEVEL III Diagnosis: Encounter for therapeutic drug level monitoring[ICD10: Z51.81] Diagnosis: Rash and other nonspecific skin eruption[ICD10: R21] Rox Alvarez MD, [facility] CPT-4: 48639 01/10/2016 60386 EST. PATIENT, LEVEL III Diagnosis: Rash and other nonspecific skin eruption[ICD10: R21] Rox Alvarez MD, [facility] CPT-4: 23584 01/07/2016 ([id number]) Miscellaneou s no charge Diagnosis: Cutaneous abscess of left axilla[ICD10: L02.412] Rox Alvarez MD, [facility] CPT-4: 19940 01/02/2016 ([id number]) Miscellaneou s no charge Diagnosis: Cutaneous abscess of left axilla[ICD10: L02.412] Rox Alvarez MD, [facility] CPT-4: 01892 01/01/2016 ([id number]) Miscellaneou s no charge Diagnosis: Cutaneous abscess of left axilla[ICD10: L02.412] Rox Alvarez MD, [facility] CPT-4: 63642 12/31/2015 ([id number]) Patient adm itted to the hospital from clinic (NO CHARGE) Diagnosis: Cutaneous abscess of left axilla[ICD10: L02.412] Rox Alvarez MD, [facility] CPT-4: 81055H 12/25/2015 22622 EST. 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 PATIENT, LEVEL IV Diagnosis: Cellulitis of left toe[ICD10: L03.032] Rox Alvarez MD, [facility] CPT-4: 91846 08/20/2015 [id number] EST. PATIENT, LEVEL III Diagnosis: Essential (primary) hypertension[ICD10: I10] Diagnosis: Peripheral vascular disease, unspecified[ICD10: I73.9] Diagnosis: Dermatitis, unspecified[ICD10: L30.9] Rox Alvarez MD, [facility] CPT- 4: 61510 12/28/2014 ([id number]) [id number] EST. P ATIENT, LEVEL III Diagnosis: ESSENTIAL HYPERTENSION[ICD9: 401.9] Diagnosis: PAD (peripheral artery disease)[ICD9: 443.9] Diagnosis: Anticoagulated on Coumadin[ICD9: V58.83] Emy Alvarez MD, [facility] CPT-4: 66842 10/31/2014 ([id number]) [id number] EST. [facility], LEVEL III Diagnosis: PAD (peripheral artery disease)[ICD9: 443.9] Diagnosis: Anticoagulated on Coumadin[ICD9: V58.83] Diagnosis: SCLERITIS[ICD9: 379.00] Diagnosis: ESSENTIAL HYPERTENSION[ICD9: 401.9] [facility] CPT- 4: 21621 10/02/2014 ([id number]) OFFICE [facility], [facility] LEVEL 4 Diagnosis: GOUT[ICD9: 274.9] Diagnosis: COPD (chronic obstructive pulmonary disease)[ICD9: 496] Diagnosis: PAD (peripheral artery disease)[ICD9: 443.9] Diagnosis: ESSENTIAL HYPERTENSION[ICD9: 401.9] Selena Alvarez MD, [facility] CPT- 4: 42627 09/21/2014 Plan of Care Planned Activity Notes C odes Status Date Appointment: Rox Luciano WPtel: [address] [place], [place] [id number] (30 min) Complex 11/17/2017 Visit [...] warmth, discharge. 08/28/2017 Appointment: Rox Luciano WPtel: [address] [place], [place] [phone] [place] (30 min) Complex 08/28/2017 Patient Education: [...] ADLs independently. 07/20/2017 Appointment: Rox Luciano WPtel: [address] [place], [place] [address] (30 min) [facility] 07/20/2017 Patient Education: Patient Medication Summary Completed 07/20/2017 Referral: Stephanie Silva WPtel: Referral Initiated 05/04/2017 Care Plan: Referral Order SNOMED-CT : [id number] Pending 04/30/2017 Visit Plan: Chronic Depression and [...] WPtel: [phone] [facility] (30 min) Complex 04/21/2017 Patient [...] pain. 04/07/2017 Appointment: Rox Luciano WPtel: [phone] [facility] (30 min) Complex 04/07/2017 Patient Education: Patient Medication Summary Completed 04/07/2017 Appointment: Selena Alvarez WPtel: [phone] [facility] (15 min) Moderate 02/26/2017 [...] not improving. 01/27/2017 Appointment: Selena Alvarez WPtel: [facility]5 [facility] (15 min) Moderate 01/27/2017 [...] with nystatin 11/25/2016 Appointment: Selena Alvarez WPtel: [address] [place], [place] [phone] (15 min) Moderate 11/25/2016 Appointment: Selena Alvarez WPtel: [address] [place], [place] [phone] (15 min) Moderate 11/25/2016 Patient Education: Patient [...] of over-medication. 10/15/2016 Appointment: Selena Alvarez WPtel: [facility]5 [facility] (15 min) Moderate 10/15/2016 Patient Education: Patient Medication Summary Completed 10/15/2016 Patient Education: Smoking and Tobacco Addiction Completed 10/15/2016 Appointment: Rox Luciano WPtel: [phone] [facility] (30 min) Complex 09/18/2016 Visit [...] mobility evaluation. 08/14/2016 Appointment: Rox Luciano WPtel: [facility]5 [facility] (30 min) Complex 08/14/2016 Patient Education: Patient [...] pain. 04/16/2016 [facility]ment: [phone] ([facility] min) Moderate 04/16/2016 Patient Education: Patient Medication Summary Completed 04/16/2016 Patient Education: Smoking and Tobacco Addiction Completed 04/16/2016 Referral: Dr Arboleda Referral Completed 02/14/2016 Care Plan: Referral Order SNOMED-CT : [id number] Pending 01/29/2016 Visit Plan: Right foot pain [...] discharge. 01/10/2016 Appointment: Rox Luciano [facility]el: [phone] [place] (30 min) Complex 01/10/2016 Patient Education: [...] further I&D. 12/25/2015 Appointment: Emy Westbrook WPtel: [phone] (15 min) Moderate 12/25/2015 Patient Education: Patient [...] care management. 10/11/2015 Appointment: Rox Luciano WPtel: [facility] ([facility] min) Complex 10/11/2015 Patient Education: Patient Medication Summary Completed 10/11/2015 Patient Education: Smoking and Tobacco Addiction Completed 10/11/2015 Patient Education: Obesity Completed 10/11/2015 Referral: Gavino Navarro they are g oing to call if they get him in before if not we will call Dr shook Initiated 09/27/2015 Appointment: Emy Westbrook WPtel: [phone] [phone] [place] (15 min) Moderate 08/24/2015 Patient Education: Patient Medication Summary Completed 08/24/2015 Patient Education: Smoking and Tobacco Addiction Completed 08/24/2015 Patient Education: Patient Medication Summary Completed 08/23/2015 Appointment: Emy Westbrook WPtel: [phone] [phone] (30 min) Complex 08/22/2015 Referral: [facility] WPtel: 1 [facility] Referral Initiated 08/22/2015 Visit Plan: [...] 09/21/2014 Care Plan: Referral Order SNOMED-CT : [id number] Ordered 09/21/2014 Appointment: Selena Alvarez WPtel: [phone] [place] [phone] [place] (S) New Patient 09/20/2014 Referral: Martinez Wren WPtel: [phone] Referral Initiated Referral: Gavino Navarro Referral Initiated Referral: [facility] WPtel: [address] Referral Initiated Referral: Dr Arboleda Referral [...] blood pressure readings at home. . Pt is here for a f [...] directed, and understands the consequences of over-medication. will refer to Dr. Edgar jordan will [...] worsening of stomach upset or stomach pain. GO TO YOUR APPOINTME NT WITH DR. NAVARRO ON THURSDAY AT 1230. CONTINUE WITH THE BACTRIM 1 PILL TWICE A DAY. WE WILL CHECK YOUR COUMADIN LEVEL TODAY AND SEE IF WE NEED TO ADJUST IT. WE WILL CALL DR. DOMINGO OFFICE AND SEE WHEN YOUR APPOINTMENT IS. CALL US WITH ANY QUESTIONS OR CONCERNS. . . Hypertension - wel l controlled - [...] Rash of groin - continue with nystatin probiotics - culture [facility] . Gastroenteritis - discussed need to [...]
[2019-08-20 18:37] LABS: ABG BASE EXCESS 0.5 MMOL/L (-2.5-2.5); ABG OXYGEN SATURATION 98 % (94-100); ABG PCO2 41 MMHG (35-45); ABG PO2 109 MMHG (79-93); ABG TCO2 25.6 MMOL/L (21.0-31.0)
--- OUTSIDE RECORDS SUMMARY | 2019-08-20 18:37 | XMS REPORT | CCD ---
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 Name Role Phone PP Unavailable CCM Unavailable Summary Purpose Interface Exchange Insurance Providers Payer name Policy type / Coverage type Covered alliance party ID Effective Begin Date Effective End Date [facility] Commercial Insurance [id number] 2017 Unknown Family history Father Diagnosis Age At Onset Hyperlipidemia Unknown Coronary Artery Disease Unknown Stroke Unknown Cancer Unknown Congestive heart failure Unknown Mother Diagnosis Age At Onset Hypertension Unknown kidney disease Unknown Cancer Unknown Stroke Unknown Hyperlipidemia Unknown Coronary Artery Disease Unknown Congestive heart failure Unknown Social History Social History Element Codes Description Effective Dates Tobacco history SNOMED CT: [id number] Current some days smoker 09/21/2014 Allergies, Adverse [...] V67.59 ICD-10: Z09 Active 10/10/2015 Unknown 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 ICD-9: V58.69 ICD-10: [...] V67.59 ICD-10: Z09 10/10/2015 Active 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 ICD-9: V58.69 ICD-10: [...] 7.5 mg-a cetaminophen 325 mg tablet RxNorm: 067363 1 Tablet(s) PO QID as needed 02/18/2018 03/19/2018 Active hydrocodone 7.5 mg-a cetaminophen 325 mg tablet RxNorm: 087586 1 Tablet(s) PO QID as needed 01/19/2018 02/17/2018 Inactive hydrocodone 7.5 mg-a cetaminophen 325 mg tablet RxNorm: 645355 1 Tablet(s) PO QID as needed 12/16/2017 01/14/2018 Inactive Pepcid 20 mg tablet RxNorm: 876217 Tablet(s) TAKE ONE TABLET BY MOUTH TWICE A DAY 12/08/2017 05/06/2018 Active hydrocodone 7.5 mg-a cetaminophen 325 mg tablet RxNorm: 149559 1 Tablet(s) PO QID as needed 11/18/2017 12/15/2017 Inactive gabapentin 300 mg ca psule RxNorm: 993211 Capsule(s) TAKE ONE C APSULE BY MOUTH THREE TIMES A DAY 11/11/2017 04/09/2018 Active gabapentin 300 mg ca psule RxNorm: 666743 TAKE ONE CAPSULE BY M OUTH THREE TIMES A DAY 11/10/2017 11/10/2017 Inactive hydrocodone 7.5 mg-a cetaminophen 325 mg tablet RxNorm: 775759 1 Tablet(s) PO QID as needed 10/19/2017 11/17/2017 Inactive hydrocodone 7.5 mg-a cetaminophen 325 mg tablet RxNorm: 760821 1 Tablet(s) PO QID as needed 09/16/2017 10/15/2017 Inactive doxycycline hyclate 100 mg capsule RxNorm: 5291935 1 Capsule(s) PO BID 08/28/2017 09/06/2017 In active hydrocodone 7.5 mg-a cetaminophen 325 mg tablet RxNorm: 446486 1 Tablet(s) PO QID as needed 08/21/2017 09/15/2017 Inactive Lexapro 10 mg tablet RxNorm: 875744 TAKE ONE TABLET BY MOUTH AT BEDTIME 08/02/2017 07/27/2018 Ac tive Zyrtec 10 mg tablet RxNorm: 3611633 1 Tablet(s) PO daily 07/20/2017 11/16/2017 Inactive hydrocodone 7.5 mg-a cetaminophen 325 mg tablet RxNorm: 550993 1 Tablet(s) PO QID as needed 07/20/2017 09/15/2017 Inactive furosemide 40 mg tablet RxNorm: 518847 Tablet(s) TAKE ONE TABLET BY MOUTH DAILY NEEDED FOR SWELLING 07/08/2017 01/03/2018 Inactive Pepcid 20 mg tablet RxNorm: 452904 TAKE ONE TABLET BY MOUTH TWICE A DAY 06/29/2017 11/25/2017 In active gabapentin 300 mg ca psule RxNorm: 864145 TAKE ONE CAPSULE BY M OUTH THREE TIMES A DAY 06/29/2017 10/26/2017 Inactive hydrocodone 7.5 mg-a cetaminophen 325 mg tablet RxNorm: 297352 1 Tablet(s) PO QID as needed 06/18/2017 07/17/2017 Inactive hydrocodone 7.5 mg-a cetaminophen 325 mg tablet RxNorm: 549582 1 Tablet(s) PO QID as needed 05/18/2017 06/16/2017 Inactive hydrocodone 7.5 mg-a cetaminophen 325 mg tablet RxNorm: 608515 1 Tablet(s) PO QID as needed 04/21/2017 05/17/2017 Inactive hyoscyamine 0.125 mg sublingual tablet RxNorm: 9659168 1 Tablet(s) SL TID a s needed 04/21/2017 04/25/2017 In active Lexapro 10 mg tablet RxNorm: 660862 1 Tablet(s) PO QHS 04/21/2017 07/19/2017 Inactive Flagyl 500 mg tablet RxNorm: 371533 1 Tablet(s) PO TID 04/07/2017 04/16/2017 Inactive Lexapro 10 mg tablet RxNorm: 957023 1 Tablet(s) PO QHS 04/07/2017 04/20/2017 Inactive hydrocodone 7.5 mg-a cetaminophen 325 mg tablet RxNorm: 313603 1 Tablet(s) PO QID as needed 03/24/2017 04/20/2017 Inactive allopurinol 100 mg t ablet RxNorm: 888262 TAKE ONE TABLET BY MO [facility] DAILY 03/10/2017 03/04/2018 Ac tive hydrocodone 7.5 mg-a cetaminophen 325 mg tablet RxNorm: 101086 1 Tablet(s) PO QID as needed 02/11/2017 03/12/2017 Inactive gabapentin 300 mg ca psule RxNorm: 650177 TAKE ONE CAPSULE BY [facility] THREE TIMES A DAY 02/02/2017 06/28/2017 Inactive Zofran ODT 4 mg disi ntegrating tablet RxNorm: 749842 1 Tablet(s) PO QID as needed nausea and vomitting 01/27/2017 No Stop Date Active hydrocodone 7.5 mg-a cetaminophen 325 mg tablet RxNorm: 623815 1 Tablet(s) PO QID as needed 01/13/2017 02/10/2017 Inactive potassium chloride E R 20 mEq tablet,extended release RxNorm: 221793 TAKE ONE TABLET BY MOUTH DAILY WHEN TAKING FUROSEMIDE NEEDED 01/12/2017 07/10/2017 Inactive furosemide 40 mg tablet RxNorm: 163176 TAKE ONE TABLET BY MOUTH DAILY NEEDED FOR SWELLING 01/12/2017 07/09/2017 Inactive promethazine 25 mg t ablet RxNorm: 328417 TAKE ONE TABLET BY MO [facility] THREE TIMES A DAY NEEDED FOR NAUSEA AND VOMITING 01/12/2017 01/31/2017 Inactive promethazine 25 mg t ablet RxNorm: 316126 1 Tablet(s) PO TID as needed nausea and vomitting 01/06/2017 01/11/2017 Inactive Lomotil 2.5 mg-0.025 mg tablet RxNorm: 6694454 1-2 Tablet(s) PO BID as needed diarrhea 01/06/2017 01/05/2017 Inactive Lomotil 2.5 mg-0.025 mg tablet RxNorm: 3408802 1-2 Tablet(s) PO BID as needed diarrhea 01/06/2017 01/07/2017 Inactive Pepcid 20 mg tablet RxNorm: 308766 1 Tablet(s) PO BID 12/19/2016 06/16/2017 Inactive Pepcid 20 mg tablet RxNorm: 653815 1 Tablet(s) PO BID 12/16/2016 12/18/2016 Inactive hydrocodone 7.5 mg-a cetaminophen 325 mg tablet RxNorm: 092004 1 Tablet(s) PO QID as needed 12/16/2016 01/12/2017 Inactive hydrocodone 7.5 mg-a cetaminophen 325 mg tablet RxNorm: 981790 1 Tablet(s) PO QID as needed 11/18/2016 12/15/2016 Inactive allopurinol 100 mg t ablet RxNorm: 694527 TAKE ONE TABLET BY [facility] DAILY 10/29/2016 02/25/2017 In active hydrocodone 7.5 mg-a cetaminophen 325 mg tablet RxNorm: 430979 1 Tablet(s) PO QID as needed 10/15/2016 11/13/2016 Inactive nystatin 100,000 uni t/gram topical cream RxNorm: 103152 1 Gram(s) TOP QID 10/15/2016 11/25/2016 In active nystatin 100,000 uni t/gram topical powder RxNorm: 160130 1 Gram(s) TOP TID TO GROIN OR AFFECTED AREA 10/14/2016 No Stop Date Active hydrocodone 7.5 mg-a cetaminophen 325 mg tablet RxNorm: 830376 1 Tablet(s) PO QID as needed 09/17/2016 10/14/2016 Inactive furosemide 40 mg tablet RxNorm: 238152 1 Tablet(s) PO daily as needed swelling 09/17/2016 01/11/2017 In active potassium chloride E R 20 mEq tablet,extended release RxNorm: 717721 1 Tablet(s) PO daily as needed take when taking a lasix pill 09/17/2016 01/11/2017 Inactive Levaquin 500 mg tablet RxNorm: 465406 1 Tablet(s) PO daily 09/17/2016 09/21/2016 Inactive hydrocodone 7.5 mg-a cetaminophen 325 mg tablet RxNorm: 315759 1 Tablet(s) PO QID as needed 08/14/2016 09/12/2016 Inactive cyclobenzaprine 5 mg tablet RxNorm: 354689 1 Tablet(s) PO TID as needed 07/25/2016 07/29/2016 In active cyclobenzaprine 5 mg tablet RxNorm: 042205 1 Tablet(s) PO TID as needed 07/25/2016 07/24/2016 In active hydrocodone 7.5 mg-a cetaminophen 325 mg tablet RxNorm: 558875 1 Tablet(s) PO QID as needed 07/21/2016 08/13/2016 Inactive warfarin 1 mg tablet RxNorm: 128059 TAKE ONE TABLET BY MOUTH EVERY EVENING 06/26/2016 08/04/2016 In active hydrocodone 7.5 mg-a cetaminophen 325 mg tablet RxNorm: 700311 1 Tablet(s) PO QID as needed 06/24/2016 07/20/2016 Inactive hydrocodone 5 mg-yanira taminophen 325 mg tablet RxNorm: 352702 1 Tablet(s) PO Q6 as needed for pain 06/09/2016 06/10/2016 Inactive warfarin 1 mg tablet RxNorm: 035441 TAKE ONE TABLET BY MOUTH EVERY EVENING 06/02/2016 06/21/2016 In active allopurinol 100 mg t ablet RxNorm: 818804 TAKE ONE TABLET BY MO [facility] DAILY 05/21/2016 10/17/2016 In active hydrocodone 7.5 mg-a cetaminophen 325 mg tablet RxNorm: 222620 1 Tablet(s) PO QID as needed 05/09/2016 06/07/2016 Inactive gabapentin 300 mg ca psule RxNorm: 812932 Capsule(s) TAKE ONE C APSULE BY MOUTH THREE TIMES A DAY 04/25/2016 11/09/2017 Inactive promethazine 25 mg t ablet RxNorm: 157485 TAKE ONE TABLET BY MO U[facility] THREE TIMES A DAY NEEDED 2016 05/01/2016 Inactive warfarin 1 mg tablet RxNorm: 741288 TAKE ONE TABLET BY MOUTH EVERY EVENING 2016 05/31/2016 In active promethazine 25 mg t ablet RxNorm: 759251 1 Tablet(s) PO TID as needed 04/16/2016 04/21/2016 In active warfarin 1 mg tablet RxNorm: 229664 TAKE ONE TABLET BY MOUTH EVERY EVENING 02/13/2016 04/12/2016 In active magnesium oxide 400 mg tablet RxNorm: 867617 TAKE ONE TABLET BY MO U[facility] TWICE A DAY 02/07/2016 01/01/2017 In active hydrocodone 5 mg-yanira taminophen 325 mg tablet RxNorm: 679525 1 Tablet(s) PO Q6 as needed for pain 01/21/2016 02/19/2016 Inactive warfarin 1 mg tablet RxNorm: 443247 TAKE ONE TABLET BY MOUTH EVERY EVENING 01/17/2016 02/05/2016 In active gabapentin 300 mg ca psule RxNorm: 712174 Capsule(s) TAKE ONE C APSULE BY MOUTH THREE TIMES A DAY 01/11/2016 04/24/2016 Inactive prednisone 10 mg tablet RxNorm: 560549 Tablet(s) PO UD 01/10/2016 No Stop Date Active 60mg x2 days, then 50mg x2 days, then 40mg x2 days, 30mg x2 days, 20mg x2 days, 10mg x2days, 5mg every other day x 2 doses Kenalog 40 mg/mL cassius pension for injection RxNorm: 4991209 Milliliter(s) Inj 01/07/2016 01/07/2016 In active warfarin 1 mg tablet RxNorm: 716151 TAKE ONE TABLET BY MOUTH EVERY EVENING 01/01/2016 01/16/2016 In active hydrocodone 5 mg-yanira taminophen 325 mg tablet RxNorm: 487651 1 Tablet(s) PO Q6 as needed for pain 01/01/2016 01/15/2016 Inactive gabapentin 300 mg ca psule RxNorm: 349370 TAKE ONE CAPSULE BY M OUTH THREE TIMES A DAY 12/12/2015 01/10/2016 Inactive warfarin 5 mg tablet RxNorm: 105211 1 Tablet(s) PO daily 12/05/2015 No Stop Date Active warfarin 1 mg tablet RxNorm: 027134 TAKE ONE TABLET BY MOUTH EVERY EVENING 11/13/2015 12/22/2015 In active hydrocodone 5 mg-yanira taminophen 325 mg tablet RxNorm: 211858 1 Tablet(s) PO Q6 as needed for pain 10/26/2015 11/09/2015 Inactive allopurinol 100 mg t ablet RxNorm: 831517 1 Tablet(s) PO daily TAKE ONE TABLET BY MOUTH DAILY 10/18/2015 04/14/2016 Inactive hydrocodone 5 mg-yanira taminophen 325 mg tablet RxNorm: 721170 1 Tablet(s) PO Q6 as needed for pain 09/26/2015 10/10/2015 Inactive gabapentin 300 mg ca psule RxNorm: 943322 TAKE ONE CAPSULE BY M OUTH THREE TIMES A DAY 09/14/2015 12/11/2015 Inactive warfarin 1 mg tablet RxNorm: 355480 1 Tablet(s) PO QPM 09/14/2015 11/12/2015 Inactive hydrocodone 5 mg-yanira taminophen 325 mg tablet RxNorm: 986960 1 Tablet(s) PO Q6 as needed for pain 09/12/2015 09/25/2015 Inactive hydrocodone 5 mg-yanira taminophen 325 mg tablet RxNorm: 262707 1 Tablet(s) PO Q6 as needed for pain 08/22/2015 09/05/2015 Inactive Bactrim DS 800 mg-16 0 mg tablet RxNorm: 319158 1 Tablet(s) PO BID 08/20/2015 09/02/2015 Inactive magnesium oxide 400 mg tablet RxNorm: 048323 TAKE ONE TABLET BY MO [facility] TWICE A DAY 01/20/2015 01/14/2016 In active gabapentin 300 mg ca psule RxNorm: 965594 TAKE ONE CAPSULE BY M OUTH THREE TIMES A DAY 01/20/2015 05/19/2015 Inactive magnesium oxide 400 mg tablet RxNorm: 992526 1 Tablet(s) PO BID 01/17/2015 05/16/2015 Inactive gabapentin 300 mg ca psule RxNorm: 948384 1 Capsule(s) PO TID 01/17/2015 05/16/2015 Inactive allopurinol 100 mg t ablet RxNorm: 621200 TAKE ONE TABLET BY MO U[facility] DAILY 10/18/2014 10/12/2015 In active Kenalog 40 mg/mL cassius pension for injection RxNorm: 5234418 1 Milliliter(s) Inj 09/21/2014 09/21/2014 In active allopurinol 100 mg t ablet RxNorm: 114425 1 Tablet(s) PO daily 09/21/2014 10/17/2014 Inactive gabapentin 300 mg ca psule RxNorm: 032430 1 Capsule(s) PO TID 09/12/2014 01/09/2015 Inactive gabapentin 300 mg ca psule RxNorm: 644877 1 Capsule(s) PO TID 09/12/2014 09/11/2014 Inactive magnesium oxide 400 mg tablet RxNorm: 144341 1 Tablet(s) PO BID 09/12/2014 01/09/2015 Inactive magnesium oxide 400 mg tablet RxNorm: 388644 1 Tablet(s) PO BID 09/12/2014 09/11/2014 Inactive lisinopril 5 mg tablet RxNorm: 847799 1 Tablet(s) PO daily No Start Date Active atorvastatin oral RxNorm: 67468 oral No Start Date Active minocycline 50 mg ca psule RxNorm: 361546 1 Capsule(s) PO BID o rdered by Dr. Saravia No Start Date Active Coreg 6.25 mg tablet RxNorm: 539858 1 Tablet(s) PO BID No Start Date Active Combivent Respimat 2 0 mcg-100 mcg/actuation solution for inhalation RxNorm: 8947270 1 Puff(s) INH as needed No Start Date Active Ventolin Refill 90 m cg/actuation aerosol inhaler RxNorm: 204252 2 INH as needed No Start Date Active Centrum Silver Women oral RxNorm: [address] art Date Active aspirin 81 mg capsul e,delayed release RxNorm: 642256 1 Capsule(s) PO daily No Start Date Active nystatin 100,000 uni t/gram topical powder RxNorm: 018418 1 Gram(s) TOP TID No Start Date 10/13/2016 Inactive warfarin 1 mg tablet RxNorm: 525517 oral No Start Date 09/13/2015 Inactive Pepcid 20 mg tablet RxNorm: 007539 1 Tablet(s) PO BID No Start Date 12/15/2016 Inactive Protonix 40 mg table t,delayed release RxNorm: 611896 1 Tablet(s) PO daily No Start Date 09/16/2016 Inactive warfarin 5 mg tablet RxNorm: 032285 1 Tablet(s) PO daily 1.5 tabs on Thu No Start Date 12/04/2015 Inactive furosemide 40 mg tablet RxNorm: 958862 1 Tablet(s) PO daily No Start Date 09/16/2016 Inactive Medication Administered Medication Codes Instruc tions Start Date Status Kenalog 40 mg/mL suspension for injection RxNorm: 5522746 Milliliter 01/07/2016 No longer Active Kenalog 40 mg/mL suspension for injection RxNorm: 9550789 1Milliliter 09/21/2014 N o longer Active Immunizations [...] neoplasm ICD-10: Z09 ICD-9: V67.59 10/11/2015 Other 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 supervisor (current) drug therapy ICD-10: Z79.899 ICD-9: V58.69 [...] Shiga Toxin 1 & 2 Eia Stool 759725 SHIGA TOXIN 1: NEGATIVE 04/12/2017 Shiga Toxin 1 & 2 Eia Stool 759316 SHIGA TOXIN 2: NEGATIVE 04/12/2017 Culture Stool 903370 STO OL CULTURE SEE NOTES 04/12/2017 Clostridium Diff Tox A/B Siw005 Cdiff Negative 04/09/2017 Pt Ebh5092 PT 64.8 seconds 01/10/2016 Pt Zqy7153 INR 8.6 01/10/2016 Pt Tfb5825 Low Intensity - 1.5-2.0 01/10/2016 Pt Haw8741 Mod intensity - 2.0-3.0 01/10/2016 Pt Zvi2311 Hi intensity - 3.0-4.0 01/10/2016 Pt Hlx7641 PT 32.1 seconds 11/01/2014 Pt Grf4427 INR 3.2 11/01/2014 Pt Xes0607 Low Intensity - 1.5-2.0 11/01/2014 Pt Yod0380 Mod intensity - 2.0-3.0 11/01/2014 Pt Frd3770 Hi intensity - 3.0-4.0 11/01/2014 Pt Kvj7782 PT 30.2 seconds 10/03/2014 Pt Wnh5025 INR 3.0 10/03/2014 Pt Kqy5995 Low Intensity - 1.5-2.0 10/03/2014 Pt Aac1763 Mod intensity - 2.0-3.0 10/03/2014 Pt Gtm7022 Hi intensity - 3.0-4.0 10/03/2014 D-Dimer D-DIMER 475 NG/ML 09/25/2014 D-Dimer COMMENT 09/25/2014 Magnesium Ord90 Mag 1.1 Result Verified By Repeat Analysis mg/dL 09/22/2014 Pt Kqp8877 PT 32.0 seconds 09/22/2014 Pt Qpa3211 INR 3.2 09/22/2014 Pt Wrn5054 Low Intensity - 1.5-2.0 09/22/2014 Pt Nzo0380 Mod intensity - 2.0-3.0 09/22/2014 Pt Cgb4089 Hi intensity - 3.0-4.0 09/22/2014 Comp Metabolic Eau588 NA 137 mEq/L 09/22/2014 Comp Metabolic Ecf001 K 4.2 mEq/L 09/22/2014 Comp Metabolic Pvm326 CL 102 mEq/L 09/22/2014 Comp Metabolic Sba938 CO2 25.0 mEq/L 09/22/2014 Comp Metabolic Bpx116 AN ION GAP 14 09/22/2014 Comp Metabolic Bym395 GL UCOSE 94 mg/dL 09/22/2014 Comp Metabolic Avw641 Cr eat 0.8 mg/dL 09/22/2014 Comp Metabolic Pbj160 eG FR 102 ml/min/1.73m2 09/06 Comp Metabolic Nwp403 BUN 15 mg/dL 09/22/2014 Comp Metabolic Fey313 B/ C Ratio 18.8 Ratio 09/22/2014 Comp Metabolic Ski385 CA LCIUM 9.4 mg/dL 09/22/2014 Comp Metabolic Rdl789 AL K PHOS 65 U/L 09/22/2014 Comp Metabolic Vch353 T(SGOT) 15 U/L 09/22/2014 Comp Metabolic Znc600 AL T(SGPT) 8 U/L 09/22/2014 Comp Metabolic Mpj134 BI LI T 0.4 mg/dL 09/22/2014 Comp Metabolic Dlk057 AL BUMIN 4.0 g/dL 09/22/2014 Comp Metabolic Gie707 TP RO 6.8 g/dL 09/22/2014 Comp Metabolic Lho478 GL OB 2.8 g/dL 09/22/2014 Comp Metabolic Gxx279 A/ G Ratio 1.4 Ratio 09/22/2014 Comp Metabolic Cme007 Os mo 274 mOsmo 09/22/2014 C-Reactive Protein [...] eye tearing 015 Eyes No eye pain 07/27/2 015 Constitutional fatigue 0 09/21/2014 Constitutional No [...] Procedure Codes Date THER/PROPH/DIAG INJ SC/IM CPT-4: 58041 08/28/2017 ROCEPHIN, PER 250 MG CPT-4: J0696 08/28/2017 [facility] PROF 3-[address]: 553035555 CPT-4: G0436 01/27/2017 [facility] PROF 3-[address]: 198502735 CPT-4: G0436 11/25/2016 [facility] PROF 3-[address]: 460085730 CPT-4: G0436 10/15/2016 [facility] PROF 3-[address]: 157843677 CPT-4: G0436 09/17/2016 THER/PROPH/DIAG INJ SC/IM CPT-4: 95159 01/07/2016 TRIAMCINOLONE ACET I [place] NOS CPT-4: J3301 01/07/2016 TRIAMCINOLONE ACET I [place] NOS CPT-4: J3301 09/21/2014 THER/PROPH/DIAG INJ SC/IM CPT-4: 19567 09/21/2014 Vital Signs Date Vital 08/28/2017 Blood Pressure 1: 138/72 Code: 8480-6 Heart Rate 1: 80 bpm Height: SpO2: 98% Weight: 07/20/2017 Blood Pressure 1: 134/76 Code: 8480-6 BMI: 29.6 Code: 57683-0 Heart Rate 1: 82 bpm Height: 5'3" [...] 1: 128/78 Code: 8480-6 BMI: 33.3 Code: 76407-5 Heart Rate 1: 72 bpm Height: 5'3" SpO2: 97% Weight: 188 lbs 01/10/2016 Blood Pressure 1: 132/76 Code: 8480-6 BMI: 33.1 Code: 62252-9 Heart Rate 1: 72 bpm Height: 5'3" SpO2: 97% Weight: 187 lbs 12/25/2015 Blood Pressure 1: 154/82 Code: 8480-6 BMI: 33.1 Code: 99461-5 Heart Rate 1: 72 bpm Height: 5'3" SpO2: 97% Weight: 187 lbs 10/11/2015 Blood Pressure 1: 110/62 Code: 8480-6 BMI: 34.7 Code: 87439-5 Heart Rate 1: 70 bpm Height: 5'3" SpO2: 93% Weight: 196 lbs 08/24/2015 Blood Pressure 1: 132/62 Code: 8480-6 BMI: 35.3 Code: 25412-7 Heart Rate 1: 62 bpm Height: 5'3" SpO2: 93% Weight: 199 lbs 08/20/2015 Blood Pressure 1: 140/68 Code: 8480-6 BMI: 35.3 Code: 92629-3 Heart Rate 1: 74 bpm Height: 5'3" SpO2: 96% Weight: 199 lbs 12/28/2014 Blood Pressure 1: 130/72 Code: 8480-6 BMI: 33.1 Code: 48515-8 Heart Rate 1: 60 bpm Height: 5'3" SpO2: 97% Weight: 187 lbs 10/31/2014 Blood Pressure 1: 118/72 Code: 8480-6 BMI: 31.2 Code: 19600-4 Heart Rate 1: 58 bpm Height: 5'3" SpO2: 98% Weight: 176 lbs 10/02/2014 Blood Pressure 1: 138/74 Code: 8480-6 BMI: 30.6 Code: 67205-0 Heart Rate 1: 72 bpm Height: 5'3" Weight: 173 lbs 09/21/2014 Blood Pressure 1: 138/72 Code: 8480-6 BMI: 30.5 Code: 56275-9 Heart Rate 1: 60 bpm Height: 5'3" [...] daily 12/25/2015 None Hospital Follow Up _ [facility] er: diverticulitis 10/11/2015 None [...] Encounters Encounter Performer Loca tion Codes Date [id number] EST. PATIENT, LEVEL III Diagnosis: Cellulitis of left axilla[ICD10: L03.112] Diagnosis: Cellulitis of right axilla[ICD10: L03.111] Rox Alvarez MD, [facility] CPT-4: 55756 08/28/2017 [id number] EST. 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 PATIENT, LEVEL IV Diagnosis: Generalized anxiety disorder[ICD10: F41.1] Diagnosis: Major depressive disorder, single episode, moderate[ICD10: F32.1] Diagnosis: Diarrhea, unspecified[ICD10: R19.7] Rox Alvarez MD, [facility] CPT-4: 85810 04/21/2017 [id number] EST. PATIENT, LEVEL IV Diagnosis: Generalized anxiety disorder[ICD10: F41.1] Diagnosis: Major depressive disorder, single episode, moderate[ICD10: F32.1] Diagnosis: Nausea[ICD10: R11.0] Diagnosis: Diarrhea, unspecified[ICD10: R19.7] Rox Alvarez MD, [facility] CPT-4: 09608 04/07/2017 ([id number]) 68028 EST. P ATIENT, LEVEL IV Diagnosis: Essential (primary) hypertension[ICD10: I10] Diagnosis: Nausea[ICD10: R11.0] Diagnosis: Other fecal abnormalities[ICD10: R19.5] Diagnosis: Tobacco use[ICD10: Z72.0] Selena Alvarez MD, [facility] CPT-4: 07806 01/27/2017 ([id number]) 53122 EST. P ATIENT, LEVEL III Diagnosis: Essential (primary) hypertension[ICD10: I10] Diagnosis: Chronic obstructive pulmonary disease, unspecified[ICD10: J44.9] Diagnosis: Rash and other nonspecific skin eruption[ICD10: R21] Selena Alvarez MD, [facility] CPT-4: 33551 11/25/2016 ([id number]) 36481 EST. P ATIENT, LEVEL III Diagnosis: Other sites of candidiasis[ICD10: B37.89] Selena Alvarez MD, [facility] CPT-4: 96834 10/15/2016 ([id number]) 96590 EST. P ATIENT, LEVEL IV Diagnosis: Essential (primary) hypertension[ICD10: I10] Diagnosis: Urinary tract infection, site not specified[ICD10: N39.0] Diagnosis: Localized edema[ICD10: R60.0] Selena Alvarez MD, [facility] CPT-4: 60667 09/17/2016 04056 EST. 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 PATIENT, LEVEL III Diagnosis: Other specified bacterial intestinal infections[ICD10: A04.8] Rox Alvarez MD, [facility] CPT-4: 77700 04/16/2016 [id number] EST. PATIENT, LEVEL II Diagnosis: Pain in right foot[ICD10: M79.671] Rox Alvarez MD, [facility] CPT-4: 78528 01/21/2016 02416 EST. PATIENT, LEVEL III Diagnosis: Encounter for therapeutic drug level monitoring[ICD10: Z51.81] Diagnosis: Rash and other nonspecific skin eruption[ICD10: R21] Rox Alvarez MD, [facility] CPT-4: 78994 01/10/2016 02823 EST. PATIENT, LEVEL III Diagnosis: Rash and other nonspecific skin eruption[ICD10: R21] Rox Alvarez MD, [facility] CPT-4: 96144 01/07/2016 ([id number]) Miscellaneou s no charge Diagnosis: Cutaneous abscess of left axilla[ICD10: L02.412] Rox Alvarez MD, [facility] CPT-4: 60937 01/02/2016 ([id number]) Miscellaneou s no charge Diagnosis: Cutaneous abscess of left axilla[ICD10: L02.412] Rox Alvarez MD, [facility] CPT-4: 58565 01/01/2016 ([id number]) Miscellaneou s no charge Diagnosis: Cutaneous abscess of left axilla[ICD10: L02.412] [facility] CPT-4: 11503 12/31/2015 ([id number]) Patient adm itted to the hospital from clinic (NO CHARGE) Diagnosis: Cutaneous abscess of left axilla[ICD10: L02.412] Rox Alvarez MD, [facility] CPT-4: 46151H 12/25/2015 69548 EST. PATIENT, LEVEL III Diagnosis: Encounter for follow-up examination after completed treatment for conditions other than malignant neoplasm[ICD10: Z09] Diagnosis: Diverticulitis of intestine, part unspecified, without perforation or abscess with bleeding[ICD10: K57.93] Diagnosis: Cellulitis of left toe[ICD10: L03.032] Diagnosis: Other obesity due to excess calories[ICD10: E66.09] Diagnosis: Other fdc (current) drug therapy[ICD10: Z79.899] [facility] CPT-4: 72358 10/11/2015 ([id number]) Miscellaneou s no charge Diagnosis: Encounter for therapeutic drug level monitoring[ICD10: Z51.81] Diagnosis: Other acute osteomyelitis, left ankle and foot[ICD10: M86.172] [facility] CPT-4: 30313 08/24/2015 14204 EST. PATIENT, LEVEL IV Diagnosis: Cellulitis of left toe[ICD10: L03.032] [facility] CPT-4: 98153 08/20/2015 [id number] EST. PATIENT, LEVEL III Diagnosis: Essential (primary) hypertension[ICD10: I10] Diagnosis: Peripheral vascular disease, unspecified[ICD10: I73.9] Diagnosis: Dermatitis, unspecified[ICD10: L30.9] [facility] CPT- 4: 16381 12/28/2014 ([id number]) [id number] EST. P ATIENT, LEVEL III Diagnosis: ESSENTIAL HYPERTENSION[ICD9: 401.9] Diagnosis: PAD (peripheral artery disease)[ICD9: 443.9] Diagnosis: Anticoagulated on Coumadin[ICD9: V58.83] [facility] CPT-4: 22044 10/31/2014 ([id number]) [id number] EST. P [facility], LEVEL III Diagnosis: PAD (peripheral artery disease)[ICD9: 443.9] Diagnosis: Anticoagulated on Coumadin[ICD9: V58.83] Diagnosis: SCLERITIS[ICD9: 379.00] Diagnosis: ESSENTIAL HYPERTENSION[ICD9: 401.9] [facility] CPT- 4: 81731 10/02/2014 ([id number]) OFFICE [facility] LEVEL 4 Diagnosis: GOUT[ICD9: 274.9] Diagnosis: COPD (chronic obstructive pulmonary disease)[ICD9: 496] Diagnosis: PAD (peripheral artery disease)[ICD9: 443.9] Diagnosis: ESSENTIAL HYPERTENSION[ICD9: 401.9] Selena Alvarez MD, [facility] CPT- 4: 71308 09/21/2014 Plan of Care Planned Activity Notes C odes Status Date Appointment: Rox Luciano WPtel: [address] [place], [place] [id number] (30 min) Complex 11/17/2017 Visit Plan: Cellulitis [...] warmth, discharge. 08/28/2017 Appointment: Rox Luciano WPtel: [facility] [place] (30 min) Complex 08/28/2017 Patient Education: Patient [...] ADLs independently. 07/20/2017 Appointment: Rox Luciano WPtel: [address] [place], [place] [id number] (30 min) [facility] 07/20/2017 Patient Education: Patient Medication Summary Completed 07/20/2017 Referral: Stephanie Silva WPtel: Referral Initiated 05/04/2017 Care Plan: Referral Order SNOMED-CT : [id number] Pending 04/30/2017 Visit Plan: Chronic Depression and [...] stomach pain. 04/21/2017 Appointment: Rox Luciano WPtel: [facility] [place] (30 min) Complex 04/21/2017 Patient Education: [...] stomach pain. 04/07/2017 Appointment: Rox Luciano WPtel: [facility] [place] (30 min) Complex 04/07/2017 Patient Education: Patient Medication Summary Completed 04/07/2017 Appointment: Selena Alvarez WPtel: [facility] [place] (15 min) Moderate 02/26/2017 Visit Plan: [...] improving. 01/27/2017 Appointment: Selena Alvarez WPtel: [phone] [facility] (15 min) Moderate 01/27/2017 Patient Education: [...] with nystatin 11/25/2016 Appointment: Selena Alvarez WPtel: [facility] [place] (15 min) Moderate 11/25/2016 Appointment: Selena Alvarez WPtel: [facility] [place] (15 min) Moderate 11/25/2016 Patient Education: [...] of over-medication. 10/15/2016 Appointment: Selena Alvarez WPtel: [facility] [place] (15 min) Moderate 10/15/2016 Patient Education: Patient Medication Summary Completed 10/15/2016 Patient Education: Smoking and Tobacco Addiction Completed 10/15/2016 Appointment: Rox Luciano WPtel: [phone] (30 min) Complex 09/18/2016 Visit Plan: Hypertension [...] evaluation. 08/14/2016 Appointment: Rox Luciano WPtel: [phone] (30 min) Complex 08/14/2016 Patient Education: Patient [...] pain. 04/16/2016 Appointment: Rox Luciano WPtel: [phone] (15 min) Moderate 04/16/2016 Patient Education: Patient Medication Summary Completed 04/16/2016 Patient Education: Smoking and Tobacco Addiction Completed 04/16/2016 Referral: Dr Arboleda Referral Completed 02/14/2016 Care Plan: Referral Order SNOMED-CT : [id number] Pending 01/29/2016 Visit Plan: Right foot pain [...] warmth, discharge. 01/10/2016 Appointment: Rox Luciano WPtel: [phone] (30 min) Complex 01/10/2016 Patient Education: Patient [...] further I&D. 12/25/2015 Appointment: Emy Westbrook WPtel: [facility] [phone] (15 min) Moderate 12/25/2015 Patient Education: Patient [...] care management. 10/11/2015 Appointment: Rox Luciano WPtel: [facility] [place] (30 min) Complex 10/11/2015 Patient Education: Patient Medication Summary Completed 10/11/2015 Patient Education: Smoking and Tobacco Addiction Completed 10/11/2015 Patient Education: Obesity Completed 10/11/2015 Referral: Gavino Navarro they are g oing to call if they get him in before if not we will call Dr shook Initiated 09/27/2015 Appointment: Emy Westbrook WPtel: [phone] (15 min) Moderate 08/24/2015 Patient Education: Patient Medication Summary Completed 08/24/2015 Patient Education: Smoking and Tobacco Addiction Completed 08/24/2015 Patient Education: Patient Medication Summary Completed 08/23/2015 Appointment: Pietro Emy WPtel: [phone] [phone] (30 min) Complex 08/22/2015 Referral: [facility] W[facility]el: 1 [facility] Referral Initiated 08/22/2015 Visit Plan: [...] Completed 12/28/2014 Appointment: Selena Alvarez WPtel: [phone] [facility] Follow up 12/20/2014 Visit Plan: Hypertension - [...] 09/21/2014 Care Plan: Referral Order SNOMED-CT : [id number] Ordered 09/21/2014 Appointment: Antonio Selena WPtel: [phone] [place] [address] [place] ([place]) New Patient 09/20/2014 Referral: Martinez Wren WPtel: [address] Referral Initiated Referral: Gavino Navarro Referral Initiated Referral: [facility] WPtel: [address] Referral Initiated Referral: Dr Arboleda Referral [...] of the lesion, increase in pain. . Yeast/candidal of groin - rx for nystatin - monitor symptoms. call if not improving. Chronic Pain Syndrome - pt has chronic pain - has been maintained on current medications, has not sought out other medications, only uses PRN pain medications as directed, and understands the consequences of over-medication. GO TO YOUR APPOINTME NT WITH DR. NAVARRO ON THURSDAY AT 1230. CONTINUE WITH THE BACTRIM 1 PILL TWICE A DAY. WE WILL CHECK YOUR COUMADIN LEVEL TODAY AND SEE IF WE NEED TO ADJUST IT. WE WILL CALL DR. DOMINGO OFFICE AND SEE WHEN YOUR APPOINTMENT IS. CALL US WITH ANY QUESTIONS OR CONCERNS. . . Left Axilla absces s and cellulitis - Pt states that he went to [facility] care for the abscess and they [...] noted, wound cleaned and dressing applied. . Hypertension - wel [...] worsening of stomach upset or stomach pain. You need to see Dr. Holger [...] worsen, or with questions or concerns. . Chronic Anticoagul ant use - Pt [...] change in symptoms, worsening redness, warmth, discharge. We will check PT/INR today Go directly [...] immediately upon leaving this appointment. Verbalizes understanding. lactobacillus - PROB IOTIC - take three times daily x 2 weeks then decrease to daily . Hypertension - well controlled - toir nue with current medications, continue with no [...] monitor output, call if not improving. . Right foot pain - ongoing - [...] of groin - continue with nystatin . Left axilla absces s - packing removed - minimal purulent drainage noted, repacked and dressing applied. probiotics - culture [facility]. . [...] in pain, worsening redness, warmth, discharge. . Pt is here for a f [...]
--- OUTSIDE RECORDS SUMMARY | 2019-08-20 18:38 | XMS REPORT | CCD ---
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 Name Role Phone PP Unavailable CCM Unavailable Summary Purpose Interface Exchange Insurance Providers Payer name Policy type / Coverage type Covered republican ID Effective Begin Date Effective End Date [facility] Commercial Insurance [id number] 2017 Unknown Family history Father Diagnosis Age At Onset Hyperlipidemia Unknown Coronary Artery Disease Unknown Stroke Unknown Cancer Unknown Congestive heart failure Unknown Mother Diagnosis Age At Onset Hypertension Unknown kidney disease Unknown Cancer Unknown Stroke Unknown Hyperlipidemia Unknown Coronary Artery Disease Unknown Congestive heart failure Unknown Social History Social History Element Codes Description Effective Dates Tobacco history SNOMED CT: 809092853592507 Current some days smoker 09/21/2014 Allergies, Adverse [...] V67.59 ICD-10: Z09 Active 10/10/2015 Unknown 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 ICD-9: V58.69 ICD-10: [...] ICD-9: V67.59 ICD-10: Z09 10/10/2015 Active 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 ICD-9: V58.69 ICD-10: [...] 7.5 mg-a cetaminophen 325 mg tablet RxNorm: 907520 1 Tablet(s) PO QID as needed 01/19/2018 02/17/2018 Active hydrocodone 7.5 mg-a cetaminophen 325 mg tablet RxNorm: 371156 1 Tablet(s) PO QID as needed 12/16/2017 01/14/2018 Inactive Pepcid 20 mg tablet RxNorm: 716717 Tablet(s) TAKE ONE TABLET BY MOUTH TWICE A DAY 12/08/2017 05/06/2018 Active hydrocodone 7.5 mg-a cetaminophen 325 mg tablet RxNorm: 933899 1 Tablet(s) PO QID as needed 11/18/2017 12/15/2017 Inactive gabapentin 300 mg ca psule RxNorm: 305172 Capsule(s) TAKE ONE C APSULE BY MOUTH THREE TIMES A DAY 11/11/2017 04/09/2018 Active gabapentin 300 mg ca psule RxNorm: 987884 TAKE ONE CAPSULE BY M OUTH THREE TIMES A DAY 11/10/2017 11/10/2017 Inactive hydrocodone 7.5 mg-a cetaminophen 325 mg tablet RxNorm: 670997 1 Tablet(s) PO QID as needed 10/19/2017 11/17/2017 Inactive hydrocodone 7.5 mg-a cetaminophen 325 mg tablet RxNorm: 132260 1 Tablet(s) PO QID as needed 09/16/2017 10/15/2017 Inactive doxycycline hyclate 100 mg capsule RxNorm: 1480644 1 Capsule(s) PO BID 08/28/2017 09/06/2017 In active hydrocodone 7.5 mg-a cetaminophen 325 mg tablet RxNorm: 721152 1 Tablet(s) PO QID as needed 08/21/2017 09/15/2017 Inactive Lexapro 10 mg tablet RxNorm: 653845 TAKE ONE TABLET BY MOUTH AT BEDTIME 08/02/2017 07/27/2018 Ac tive Zyrtec 10 mg tablet RxNorm: 2271350 1 Tablet(s) PO daily 07/20/2017 11/16/2017 Inactive hydrocodone 7.5 mg-a cetaminophen 325 mg tablet RxNorm: 320902 1 Tablet(s) PO QID as needed 07/20/2017 09/15/2017 Inactive furosemide 40 mg tablet RxNorm: 672257 Tablet(s) TAKE ONE TABLET BY MOUTH DAILY NEEDED FOR SWELLING 07/08/2017 01/03/2018 Inactive Pepcid 20 mg tablet RxNorm: 716387 TAKE ONE TABLET BY MOUTH TWICE A DAY 06/29/2017 11/25/2017 In active gabapentin 300 mg ca psule RxNorm: 978311 TAKE ONE CAPSULE BY M OUTH THREE TIMES A DAY 06/29/2017 10/26/2017 Inactive hydrocodone 7.5 mg-a cetaminophen 325 mg tablet RxNorm: 310213 1 Tablet(s) PO QID as needed 06/18/2017 07/17/2017 Inactive hydrocodone 7.5 mg-a cetaminophen 325 mg tablet RxNorm: 470336 1 Tablet(s) PO QID as needed 05/18/2017 06/16/2017 Inactive hydrocodone 7.5 mg-a cetaminophen 325 mg tablet RxNorm: 489275 1 Tablet(s) PO QID as needed 04/21/2017 05/17/2017 Inactive hyoscyamine 0.125 mg sublingual tablet RxNorm: 7225528 1 Tablet(s) SL TID a s needed 04/21/2017 04/25/2017 In active Lexapro 10 mg tablet RxNorm: 389652 1 Tablet(s) PO QHS 04/21/2017 07/19/2017 Inactive Flagyl 500 mg tablet RxNorm: 075694 1 Tablet(s) PO TID 04/07/2017 04/16/2017 Inactive Lexapro 10 mg tablet RxNorm: 634488 1 Tablet(s) PO QHS 04/07/2017 04/20/2017 Inactive hydrocodone 7.5 mg-a cetaminophen 325 mg tablet RxNorm: 072780 1 Tablet(s) PO QID as needed 03/24/2017 04/20/2017 Inactive allopurinol 100 mg t ablet RxNorm: 088228 [facility] 03/10/2017 03/04/2018 Ac tive hydrocodone 7.5 mg-a cetaminophen 325 mg tablet RxNorm: 634217 1 Tablet(s) PO QID as needed 02/11/2017 03/12/2017 Inactive gabapentin 300 mg ca psule RxNorm: 089836 TAKE ONE CAPSULE BY [facility] THREE TIMES A DAY 02/02/2017 06/28/2017 Inactive Zofran ODT 4 mg disi ntegrating tablet RxNorm: 209088 1 Tablet(s) PO QID as needed nausea and vomitting 01/27/2017 No Stop Date Active hydrocodone 7.5 mg-a cetaminophen 325 mg tablet RxNorm: 873413 1 Tablet(s) PO QID as needed 01/13/2017 02/10/2017 Inactive potassium chloride E R 20 mEq tablet,extended release RxNorm: 321190 TAKE ONE TABLET BY MOUTH DAILY WHEN TAKING FUROSEMIDE NEEDED 01/12/2017 07/10/2017 Inactive furosemide 40 mg tablet RxNorm: 395469 TAKE ONE TABLET BY MOUTH DAILY NEEDED FOR SWELLING 01/12/2017 07/09/2017 Inactive promethazine 25 mg t ablet RxNorm: 745617 TAKE ONE TABLET [facility] THREE TIMES A DAY NEEDED FOR NAUSEA AND VOMITING 01/12/2017 01/31/2017 Inactive promethazine 25 mg t ablet RxNorm: 023622 1 Tablet(s) PO TID as needed nausea and vomitting 01/06/2017 01/11/2017 Inactive Lomotil 2.5 mg-0.025 mg tablet RxNorm: 6367348 1-2 Tablet(s) PO BID as needed diarrhea 01/06/2017 01/05/2017 Inactive Lomotil 2.5 mg-0.025 mg tablet RxNorm: 0364378 1-2 Tablet(s) PO BID as needed diarrhea 01/06/2017 01/07/2017 Inactive Pepcid 20 mg tablet RxNorm: 413830 1 Tablet(s) PO BID 12/19/2016 06/16/2017 Inactive Pepcid 20 mg tablet RxNorm: 066874 1 Tablet(s) PO BID 12/16/2016 12/18/2016 Inactive hydrocodone 7.5 mg-a cetaminophen 325 mg tablet RxNorm: 803786 1 Tablet(s) PO QID as needed 12/16/2016 01/12/2017 Inactive hydrocodone 7.5 mg-a cetaminophen 325 mg tablet RxNorm: 900744 1 Tablet(s) PO QID as needed 11/18/2016 12/15/2016 Inactive allopurinol 100 mg t ablet RxNorm: 311227 TAKE ONE TABLET [facility] DAILY 10/29/2016 02/25/2017 In active hydrocodone 7.5 mg-a cetaminophen 325 mg tablet RxNorm: 254937 1 Tablet(s) PO QID as needed 10/15/2016 11/13/2016 Inactive nystatin 100,000 uni t/gram topical cream RxNorm: 070962 1 Gram(s) TOP QID 10/15/2016 11/25/2016 In active nystatin 100,000 uni t/gram topical powder RxNorm: 981104 1 Gram(s) TOP TID TO GROIN OR AFFECTED AREA 10/14/2016 No Stop Date Active hydrocodone 7.5 mg-a cetaminophen 325 mg tablet RxNorm: 003610 1 Tablet(s) PO QID as needed 09/17/2016 10/14/2016 Inactive furosemide 40 mg tablet RxNorm: 059383 1 Tablet(s) PO daily as needed swelling 09/17/2016 01/11/2017 In active potassium chloride E R 20 mEq tablet,extended release RxNorm: 891054 1 Tablet(s) PO daily as needed take when taking a lasix pill 09/17/2016 01/11/2017 Inactive Levaquin 500 mg tablet RxNorm: 204295 1 Tablet(s) PO daily 09/17/2016 09/21/2016 Inactive hydrocodone 7.5 mg-a cetaminophen 325 mg tablet RxNorm: 343330 1 Tablet(s) PO QID as needed 08/14/2016 09/12/2016 Inactive cyclobenzaprine 5 mg tablet RxNorm: 095896 1 Tablet(s) PO TID as needed 07/25/2016 07/29/2016 In active cyclobenzaprine 5 mg tablet RxNorm: 266563 1 Tablet(s) PO TID as needed 07/25/2016 07/24/2016 In active hydrocodone 7.5 mg-a cetaminophen 325 mg tablet RxNorm: 437310 1 Tablet(s) PO QID as needed 07/21/2016 08/13/2016 Inactive warfarin 1 mg tablet RxNorm: 781662 TAKE ONE TABLET BY MOUTH EVERY EVENING 06/26/2016 08/04/2016 In active hydrocodone 7.5 mg-a cetaminophen 325 mg tablet RxNorm: 154548 1 Tablet(s) PO QID as needed 06/24/2016 07/20/2016 Inactive hydrocodone 5 mg-yanira taminophen 325 mg tablet RxNorm: 689154 1 Tablet(s) PO Q6 as needed for pain 06/09/2016 06/10/2016 Inactive warfarin 1 mg tablet RxNorm: 611223 TAKE ONE TABLET BY MOUTH EVERY EVENING 06/02/2016 06/21/2016 In active allopurinol 100 mg t ablet RxNorm: 244838 TAKE ONE TABLET BY MO [facility] DAILY 05/21/2016 10/17/2016 In active hydrocodone 7.5 mg-a cetaminophen 325 mg tablet RxNorm: 354476 1 Tablet(s) PO QID as needed 05/09/2016 06/07/2016 Inactive gabapentin 300 mg ca psule RxNorm: 136022 Capsule(s) TAKE ONE C APSULE BY MOUTH THREE TIMES A DAY 04/25/2016 11/09/2017 Inactive promethazine 25 mg t ablet RxNorm: 668141 TAKE ONE TABLET BY MO [facility] THREE TIMES A DAY NEEDED 2016 05/01/2016 Inactive warfarin 1 mg tablet RxNorm: 602973 TAKE ONE TABLET BY MOUTH EVERY EVENING 2016 05/31/2016 In active promethazine 25 mg t ablet RxNorm: 289727 1 Tablet(s) PO TID as needed 04/16/2016 04/21/2016 In active warfarin 1 mg tablet RxNorm: 849258 TAKE ONE TABLET BY MOUTH EVERY EVENING 02/13/2016 04/12/2016 In active magnesium oxide 400 mg tablet RxNorm: 249046 TAKE ONE TABLET BY MO [facility] TWICE A DAY 02/07/2016 01/01/2017 In active hydrocodone 5 mg-yanira taminophen 325 mg tablet RxNorm: 513582 1 Tablet(s) PO Q6 as needed for pain 01/21/2016 02/19/2016 Inactive warfarin 1 mg tablet RxNorm: 548352 TAKE ONE TABLET BY MOUTH EVERY EVENING 01/17/2016 02/05/2016 In active gabapentin 300 mg ca psule RxNorm: 441903 Capsule(s) TAKE ONE C APSULE BY MOUTH THREE TIMES A DAY 01/11/2016 04/24/2016 Inactive prednisone 10 mg tablet RxNorm: 312687 Tablet(s) PO UD 01/10/2016 No Stop Date Active 60mg x2 days, then 50mg x2 days, then 40mg x2 days, 30mg x2 days, 20mg x2 days, 10mg x2days, 5mg every other day x 2 doses Kenalog 40 mg/mL cassius pension for injection RxNorm: 3724913 Milliliter(s) Inj 01/07/2016 01/07/2016 In active warfarin 1 mg tablet RxNorm: 354694 TAKE ONE TABLET BY MOUTH EVERY EVENING 01/01/2016 01/16/2016 In active hydrocodone 5 mg-yanira taminophen 325 mg tablet RxNorm: 429206 1 Tablet(s) PO Q6 as needed for pain 01/01/2016 01/15/2016 Inactive gabapentin 300 mg ca psule RxNorm: 614175 TAKE ONE CAPSULE BY M OUTH THREE TIMES A DAY 12/12/2015 01/10/2016 Inactive warfarin 5 mg tablet RxNorm: 482940 1 Tablet(s) PO daily 12/05/2015 No Stop Date Active warfarin 1 mg tablet RxNorm: 563500 TAKE ONE TABLET BY MOUTH EVERY EVENING 11/13/2015 12/22/2015 In active hydrocodone 5 mg-yanira taminophen 325 mg tablet RxNorm: 214728 1 Tablet(s) PO Q6 as needed for pain 10/26/2015 11/09/2015 Inactive allopurinol 100 mg t ablet RxNorm: 640377 1 Tablet(s) PO daily TAKE ONE TABLET BY MOUTH DAILY 10/18/2015 04/14/2016 Inactive hydrocodone 5 mg-yanira taminophen 325 mg tablet RxNorm: 117647 1 Tablet(s) PO Q6 as needed for pain 09/26/2015 10/10/2015 Inactive gabapentin 300 mg ca psule RxNorm: 561194 TAKE ONE CAPSULE BY M OUT[facility] THREE TIMES A DAY 09/14/2015 12/11/2015 Inactive warfarin 1 mg tablet RxNorm: 903224 1 Tablet(s) PO QPM 09/14/2015 11/12/2015 Inactive hydrocodone 5 mg-yanira taminophen 325 mg tablet RxNorm: 131425 1 Tablet(s) PO Q6 as needed for pain 09/12/2015 09/25/2015 Inactive hydrocodone 5 mg-yanira taminophen 325 mg tablet RxNorm: 265383 1 Tablet(s) PO Q6 as needed for pain 08/22/2015 09/05/2015 Inactive Bactrim DS 800 mg-16 0 mg tablet RxNorm: 277416 1 Tablet(s) PO BID 08/20/2015 09/02/2015 Inactive magnesium oxide 400 mg tablet RxNorm: 061984 TA[facility] TABLET [facility] TW[facility] A DAY 01/20/2015 01/14/2016 In active gabapentin 300 mg ca psule RxNorm: 673896 TAKE ONE CAPSULE BY M OUT THREE TIMES A DAY 01/20/2015 05/19/2015 Inactive magnesium oxide 400 mg tablet RxNorm: 129684 1 Tablet(s) PO BID 01/17/2015 05/16/2015 Inactive gabapentin 300 mg ca psule RxNorm: 862241 1 Capsule(s) PO TID 01/17/2015 05/16/2015 Inactive allopurinol 100 mg t ablet RxNorm: 371816 TAKE ONE TABLET BY [facility] DAILY 10/18/2014 10/12/2015 In active Kenalog 40 mg/mL cassius pension for injection RxNorm: 9702414 1 Milliliter(s) Inj 09/21/2014 09/21/2014 In active allopurinol 100 mg t ablet RxNorm: 040301 1 Tablet(s) PO daily 09/21/2014 10/17/2014 Inactive gabapentin 300 mg ca psule RxNorm: 955994 1 Capsule(s) PO TID 09/12/2014 01/09/2015 Inactive gabapentin 300 mg ca psule RxNorm: 617220 1 Capsule(s) PO TID 09/12/2014 09/11/2014 Inactive magnesium oxide 400 mg tablet RxNorm: 332850 1 Tablet(s) PO BID 09/12/2014 01/09/2015 Inactive magnesium oxide 400 mg tablet RxNorm: 142352 1 Tablet(s) PO BID 09/12/2014 09/11/2014 Inactive lisinopril 5 mg tablet RxNorm: 078968 1 Tablet(s) PO daily No Start Date Active atorvastatin oral RxNorm: 14019 oral No Start Date Active minocycline 50 mg ca psule RxNorm: 493631 1 Capsule(s) PO BID o rdered by Dr. Saravia No Start Date Active Coreg 6.25 mg tablet RxNorm: 768194 1 Tablet(s) PO BID No Start Date Active Combivent Respimat 2 0 mcg-100 mcg/actuation solution for inhalation RxNorm: 1027111 1 Puff(s) INH as needed No Start Date Active Ventolin Refill 90 m cg/actuation aerosol inhaler RxNorm: 616119 2 INH as needed No Start Date Active Centrum Silver Women oral RxNorm: [address] art Date Active aspirin 81 mg capsul e,delayed release RxNorm: 201336 1 Capsule(s) PO daily No Start Date Active nystatin 100,000 uni t/gram topical powder RxNorm: 473356 1 Gram(s) TOP TID No Start Date 10/13/2016 Inactive warfarin 1 mg tablet RxNorm: 036094 oral No Start Date 09/13/2015 Inactive Pepcid 20 mg tablet RxNorm: 880291 1 Tablet(s) PO BID No Start Date 12/15/2016 Inactive Protonix 40 mg table t,delayed release RxNorm: 772988 1 Tablet(s) PO daily No Start Date 09/16/2016 Inactive warfarin 5 mg tablet RxNorm: 254829 1 Tablet(s) PO daily 1.5 tabs on Thu No Start Date 12/04/2015 Inactive furosemide 40 mg tablet RxNorm: 383819 1 Tablet(s) PO daily No Start Date 09/16/2016 Inactive Medication Administered Medication Codes Instruc tions Start Date Status Kenalog 40 mg/mL suspension for injection RxNorm: 8417636 Milliliter 01/07/2016 No longer Active Kenalog 40 mg/mL suspension for injection RxNorm: 7200782 1Milliliter 09/21/2014 N o longer Active Immunizations No Immunization data Assessments Condition Codes Effectiv e Dates Cellulitis of right axilla ICD-10: L 03.111 ICD-9: 682.3 08/28/2017 Cellulitis of left axilla ICD-10: L0 3.112 ICD-9: 682.3 08/28/2017 Generalized anxiety disorder ICD-10: F41.1 ICD-9: 300.00 07/20/2017 Essential (primary) hypertension ICD -10: I10 ICD-9: 401.9 07/20/2017 Chronic pain syndrome ICD-10: G89.4 ICD-9: [...] not specified ICD-10: N39.0 ICD-9: 599.0 09/17/2016 Localized edema ICD-10: R60.0 ICD-9: 782.3 09/17/2016 Other specified bacterial intestinal infections ICD-10: [...] ICD-10: L03.0 32 ICD-9: 681.10 10/11/2015 Other snf (current) drug therapy ICD-10: Z79.899 ICD-9: V58.69 10/11/2015 Other acute osteomyelitis, left ankle and foot ICD-10: M86.172 ICD-9: 730.07 08/24/2015 Dermatitis, unspecified ICD-10: L30. 9 ICD-9: 692.9 12/28/2014 Peripheral vascular disease, unspecified ICD-10: I73.9 ICD-9: 443.9 12/28/2014 Anticoagulated on Coumadin ICD-9: V58.83 10/31/2014 PAD (peripheral artery disease) ICD- 9: 443.9 10/31/2014 ESSENTIAL HYPERTENSION ICD-9: 401.9 10/31/2014 SCLERITIS ICD-9: 379.00 10/02/2014 GOUT ICD-9: [...] Observation Code Item Item Code Result Date Culture Stool 981480 STO OL CULTURE SEE NOTES 04/12/2017 Shiga Toxin 1 & 2 Eia Stool 343569 SHIGA TOXIN 1: NEGATIVE 04/12/2017 Shiga Toxin 1 & 2 Eia Stool 243130 SHIGA TOXIN 2: NEGATIVE 04/12/2017 Clostridium Diff Tox A/B Ffu451 Cdiff Negative 04/09/2017 Pt Dpq0369 PT 64.8 seconds 01/10/2016 Pt Ijd8981 INR 8.6 01/10/2016 Pt Vid9664 Low Intensity - 1.5-2.0 01/10/2016 Pt Sfg6941 Mod intensity - 2.0-3.0 01/10/2016 Pt Ngf5467 Hi intensity - 3.0-4.0 01/10/2016 Pt Svp0738 PT 32.1 seconds 11/01/2014 Pt Exe3158 INR 3.2 11/01/2014 Pt Cfr1528 Low Intensity - 1.5-2.0 11/01/2014 Pt Kiy5535 Mod intensity - 2.0-3.0 11/01/2014 Pt Ayu4995 Hi intensity - 3.0-4.0 11/01/2014 Pt Qwl8948 PT 30.2 seconds 10/03/2014 Pt Umx1878 INR 3.0 10/03/2014 Pt Xhz7135 Low Intensity - 1.5-2.0 10/03/2014 Pt Hnz7832 Mod intensity - 2.0-3.0 10/03/2014 Pt Jea7982 Hi intensity - 3.0-4.0 10/03/2014 D-Dimer D-DIMER 475 NG/ML 09/25/2014 D-Dimer COMMENT 09/25/2014 Comp Metabolic Oqp346 NA 137 mEq/L 09/22/2014 Comp Metabolic Gxi542 K 4.2 mEq/L 09/22/2014 Comp Metabolic Zux890 CL 102 mEq/L 09/22/2014 Comp Metabolic Ygm727 CO2 25.0 mEq/L 09/22/2014 Comp Metabolic Ztn871 AN ION GAP 14 09/22/2014 Comp Metabolic Mqn844 GL UCOSE 94 mg/dL 09/22/2014 Comp Metabolic Fsy241 Cr eat 0.8 mg/dL 09/22/2014 Comp Metabolic Ydt642 eG FR 102 ml/min/1.73m2 09/06 Comp Metabolic Sbi583 BUN 15 mg/dL 09/22/2014 Comp Metabolic Nrv910 B/ C Ratio 18.8 Ratio 09/22/2014 Comp Metabolic Ehf417 CA LCIUM 9.4 mg/dL 09/22/2014 Comp Metabolic Fwf137 AL K PHOS 65 U/L 09/22/2014 Comp Metabolic Tqp882 T(SGOT) 15 U/L 09/22/2014 Comp Metabolic Qby425 AL T(SGPT) 8 U/L 09/22/2014 Comp Metabolic Enu898 BI LI T 0.4 mg/dL 09/22/2014 Comp Metabolic Yjc585 AL BUMIN 4.0 g/dL 09/22/2014 Comp Metabolic Fuh330 TP RO 6.8 g/dL 09/22/2014 Comp Metabolic Bgl898 GL OB 2.8 g/dL 09/22/2014 Comp Metabolic Wyw002 A/ G Ratio 1.4 Ratio 09/22/2014 Comp Metabolic Tgw114 Os mo 274 mOsmo 09/22/2014 Magnesium Ord90 Mag 1.1 Result Verified By Repeat Analysis mg/dL 09/22/2014 Pt Xmz5603 PT 32.0 seconds 09/22/2014 Pt Ypw7111 INR 3.2 09/22/2014 Pt Vml0670 Low Intensity - 1.5-2.0 09/22/2014 Pt Mka6772 Mod intensity - 2.0-3.0 09/22/2014 Pt Ffd0950 Hi intensity - 3.0-4.0 09/22/2014 C-Reactive Protein [...] Procedure Codes Date THER/PROPH/DIAG INJ SC/IM CPT-4: 78030 08/28/2017 ROCEPHIN, PER 250 MG CPT-4: J0696 08/28/2017 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-[address]: [id number] CPT-4: G0436 01/27/2017 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-[address]: 599796871 CPT-4: G0436 11/25/2016 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-[address]: 463901235 CPT-4: G0436 10/15/2016 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-[address]: 386117679 CPT-4: G0436 09/17/2016 THER/PROPH/DIAG INJ SC/IM CPT-4: 18386 01/07/2016 TRIAMCINOLONE ACET I [place] NOS CPT-4: J3301 01/07/2016 TRIAMCINOLONE ACET I [place] NOS CPT-4: J3301 09/21/2014 THER/PROPH/DIAG INJ SC/IM CPT-4: 22401 09/21/2014 Vital Signs Date Vital 08/28/2017 Blood Pressure 1: 138/72 Code: 8480-6 Heart Rate 1: 80 bpm Height: SpO2: 98% Weight: 07/20/2017 Blood Pressure 1: 134/76 Code: 8480-6 BMI: 29.6 Code: 45746-4 Heart Rate 1: 82 bpm Height: 5'3" [...] 1: 128/78 Code: 8480-6 BMI: 33.3 Code: 37123-2 Heart Rate 1: 72 bpm Height: 5'3" SpO2: 97% Weight: 188 lbs 01/10/2016 Blood Pressure 1: 132/76 Code: 8480-6 BMI: 33.1 Code: 22754-4 Heart Rate 1: 72 bpm Height: 5'3" SpO2: 97% Weight: 187 lbs 12/25/2015 Blood Pressure 1: 154/82 Code: 8480-6 BMI: 33.1 Code: 49339-6 Heart Rate 1: 72 bpm Height: 5'3" SpO2: 97% Weight: 187 lbs 10/11/2015 Blood Pressure 1: 110/62 Code: 8480-6 BMI: 34.7 Code: 81751-1 Heart Rate 1: 70 bpm Height: 5'3" SpO2: 93% Weight: 196 lbs 08/24/2015 Blood Pressure 1: 132/62 Code: 8480-6 BMI: 35.3 Code: 68116-4 Heart Rate 1: 62 bpm Height: 5'3" SpO2: 93% Weight: 199 lbs 08/20/2015 Blood Pressure 1: 140/68 Code: 8480-6 BMI: 35.3 Code: 28981-4 Heart Rate 1: 74 bpm Height: 5'3" SpO2: 96% Weight: 199 lbs 12/28/2014 Blood Pressure 1: 130/72 Code: 8480-6 BMI: 33.1 Code: 66370-0 Heart Rate 1: 60 bpm Height: 5'3" SpO2: 97% Weight: 187 lbs 10/31/2014 Blood Pressure 1: 118/72 Code: 8480-6 BMI: 31.2 Code: 91619-4 Heart Rate 1: 58 bpm Height: 5'3" SpO2: 98% Weight: 176 lbs 10/02/2014 Blood Pressure 1: 138/74 Code: 8480-6 BMI: 30.6 Code: 41345-7 Heart Rate 1: 72 bpm Height: 5'3" Weight: 173 lbs 09/21/2014 Blood Pressure 1: 138/72 Code: 8480-6 BMI: 30.5 Code: 73974-9 Heart Rate 1: 60 bpm Height: 5'3" [...] daily 12/25/2015 None Hospital Follow Up _ [facility] er: diverticulitis 10/11/2015 None Hospital [...] Encounters Encounter Performer Loca tion Codes Date 81841 EST. PATIENT, LEVEL III Diagnosis: Cellulitis of left axilla[ICD10: L03.112] Diagnosis: Cellulitis of right axilla[ICD10: L03.111] Rox Alvarez MD, [facility] CPT-4: 55399 08/28/2017 [id number] EST. 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 PATIENT, LEVEL IV Diagnosis: Generalized anxiety disorder[ICD10: F41.1] Diagnosis: Major depressive disorder, single episode, moderate[ICD10: F32.1] Diagnosis: Diarrhea, unspecified[ICD10: R19.7] Rox Alvarez MD, [facility] CPT-4: 65356 04/21/2017 [id number] EST. PATIENT, LEVEL IV Diagnosis: Generalized anxiety disorder[ICD10: F41.1] Diagnosis: Major depressive disorder, single episode, moderate[ICD10: F32.1] Diagnosis: Nausea[ICD10: R11.0] Diagnosis: Diarrhea, unspecified[ICD10: R19.7] Rox Alvarez MD, [facility] CPT-4: 05625 04/07/2017 ([id number]) 62201 EST. P ATIENT, LEVEL IV Diagnosis: Essential (primary) hypertension[ICD10: I10] Diagnosis: Nausea[ICD10: R11.0] Diagnosis: Other fecal abnormalities[ICD10: R19.5] Diagnosis: Tobacco use[ICD10: Z72.0] Selena Alvarez MD, [facility] CPT-4: 05295 01/27/2017 ([id number]) 70072 EST. P ATIENT, LEVEL III Diagnosis: Essential (primary) hypertension[ICD10: I10] Diagnosis: Chronic obstructive pulmonary disease, unspecified[ICD10: J44.9] Diagnosis: Rash and other nonspecific skin eruption[ICD10: R21] Selena Alvarez MD, [facility] CPT-4: 59374 11/25/2016 ([id number]) 33260 EST. P ATIENT, LEVEL III Diagnosis: Other sites of candidiasis[ICD10: B37.89] Selena Alvarez MD, C CPT-4: 20305 10/15/2016 ([id number]) 51822 EST. P ATIENT, LEVEL IV Diagnosis: Essential (primary) hypertension[ICD10: I10] Diagnosis: Urinary tract infection, site not specified[ICD10: N39.0] Diagnosis: Localized edema[ICD10: R60.0] Selena Alvarez MD [facility] CPT-4: 34710 09/17/2016 [id number] EST. 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 PATIENT, LEVEL III Diagnosis: Other specified bacterial intestinal infections[ICD10: A04.8] Rox Alvarez MD [facility] CPT-4: 46178 04/16/2016 [id number] EST. PATIENT, LEVEL II Diagnosis: Pain in right foot[ICD10: M79.671] Rox Alvarez MD [facility] CPT-4: 92122 01/21/2016 73506 EST. PATIENT, LEVEL III Diagnosis: Encounter for therapeutic drug level monitoring[ICD10: Z51.81] Diagnosis: Rash and other nonspecific skin eruption[ICD10: R21] Rox Alvarez MD [facility] CPT-4: 54225 01/10/2016 61696 EST. PATIENT, LEVEL III Diagnosis: Rash and other nonspecific skin eruption[ICD10: R21] Rox Alvarez MD [facility] CPT-4: 07029 01/07/2016 ([id number]) Miscellaneou s no charge Diagnosis: Cutaneous abscess of left axilla[ICD10: L02.412] Rox Alvarez MD [facility] CPT-4: 27194 01/02/2016 ([id number]) Miscellaneou s no charge Diagnosis: Cutaneous abscess of left axilla[ICD10: L02.412] Rox Alvarez MD [facility] CPT-4: 62998 01/01/2016 ([id number]) Miscellaneou s no charge Diagnosis: Cutaneous abscess of left axilla[ICD10: L02.412] Rox Alvarez MD [facility] CPT-4: 68454 12/31/2015 ([id number]) Patient adm itted to the hospital from clinic (NO CHARGE) Diagnosis: Cutaneous abscess of left axilla[ICD10: L02.412] Rox Alvarez MD, [facility] CPT-4: 87705S 12/25/2015 [id number] EST. 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 PATIENT, LEVEL IV Diagnosis: Cellulitis of left toe[ICD10: L03.032] [facility] CPT-4: 51668 08/20/2015 [id number] EST. PATIENT, LEVEL III Diagnosis: Essential (primary) hypertension[ICD10: I10] Diagnosis: Peripheral vascular disease, unspecified[ICD10: I73.9] Diagnosis: Dermatitis, unspecified[ICD10: L30.9] [facility] CPT- 4: 04108 12/28/2014 ([id number]) [id number] EST. P ATIENT, LEVEL III Diagnosis: ESSENTIAL HYPERTENSION[ICD9: 401.9] Diagnosis: PAD (peripheral artery disease)[ICD9: 443.9] Diagnosis: Anticoagulated on Coumadin[ICD9: V58.83] Emy [facility] CPT-4: 68469 10/31/2014 ([id number]) [id number] EST. P ATIENT, LEVEL III Diagnosis: PAD (peripheral artery disease)[ICD9: 443.9] Diagnosis: Anticoagulated on Coumadin[ICD9: V58.83] Diagnosis: SCLERITIS[ICD9: 379.00] Diagnosis: ESSENTIAL HYPERTENSION[ICD9: 401.9] Selena [facility] CPT- 4: 55735 10/02/2014 ([id number]) OFFICE [facility] - LEVEL 4 Diagnosis: GOUT[ICD9: 274.9] Diagnosis: COPD (chronic obstructive pulmonary disease)[ICD9: 496] Diagnosis: PAD (peripheral artery disease)[ICD9: 443.9] Diagnosis: ESSENTIAL HYPERTENSION[ICD9: 401.9] [facility]ena [facility] CPT- 4: 40193 09/21/2014 Plan of Care Planned Activity Notes C odes Status Date Appointment: Rox Luciano WPtel[facility] ([facility] min) Complex 11/17/2017 Visit Plan: Cellulitis [...] warmth, discharge. 08/28/2017 Appointment: Rox Luciano WPtel: [facility] (30 min) Complex 08/28/2017 Patient Education: Patient [...] continue PT 07/20/2017 Appointment: Rox Luciano WPtel: [address] [place], [place] [phone] (30 min) [facility] 07/20/2017 Patient Education: Patient Medication Summary Completed 07/20/2017 Referral: Stephanie Silva WPtel: Referral Initiated 05/04/2017 Care Plan: Referral Order SNOMED-CT : [id number] Pending 04/30/2017 Visit Plan: Chronic Depression and [...] pain. 04/21/2017 Appointment: Rox Luciano WPtel: [address] [facility] (30 min) [...] pain. 04/07/2017 Appointment: Rox Luciano WPtel: [address] [facility] (30 min) Complex 04/07/2017 Patient Education: Patient Medication Summary Completed 04/07/2017 Appointment: Selena Alvarez WPtel: [phone] [facility] (15 min) Moderate 02/26/2017 Visit Plan: Hypertension [...] not improving. 01/27/2017 Appointment: Selena Alvarez WPtel: [facility] (15 min) Moderate 01/27/2017 Patient Education: Patient [...] with nystatin 11/25/2016 Appointment: Selena Alvarez WPtel: [facility] (15 min) Moderate 11/25/2016 Appointment: Selena Alvarez WPtel: [facility] (15 min) Moderate 11/25/2016 Patient Education: Patient [...] of over-medication. 10/15/2016 Appointment: Selena Alvarez WPtel: [facility] (15 min) Moderate 10/15/2016 Patient Education: Patient Medication Summary Completed 10/15/2016 Patient Education: Smoking and Tobacco Addiction Completed 10/15/2016 Appointment: Rox Luciano WPtel: [facility]5 [facility] [place] (30 min) Complex 09/18/2016 Visit Plan: [...] mobility evaluation. 08/14/2016 Appointment: Rox Luciano WPtel: [address] [place], [place] [address] (30 min) Complex 08/14/2016 Patient Education: Patient [...] pain. 04/16/2016 Appointment: [facility]ox Luciano [facility]Ptel[phone] (15 min) Moderate 04/16/2016 Patient Education: Patient Medication Summary Completed 04/16/2016 Patient Education: Smoking and Tobacco Addiction Completed 04/16/2016 Referral: Dr Arboleda Referral Completed 02/14/2016 Care Plan: Referral Order SNOMED-CT : [id number] Pending 01/29/2016 Visit Plan: Right foot pain [...] discharge. 01/10/2016 Appointment: Rox Luciano WPtel[phone] (30 min) Complex 01/10/2016 Patient Education: Patient [...] further I&D. 12/25/2015 Appointment: Emy Westbrook WPtel: [address] [place] [phone] (15 min) Moderate 12/25/2015 Patient Education: Patient [...] care management. 10/11/2015 Appointment: Rox Luciano WPtel: [address] [place], [place] [phone] (30 min) Complex 10/11/2015 Patient Education: Patient Medication Summary Completed 10/11/2015 Patient Education: Smoking and Tobacco Addiction Completed 10/11/2015 Patient Education: Obesity Completed 10/11/2015 Referral: Gavino Navarro they are g oing to call if they get him in before if not we will call Dr shook Initiated 09/27/2015 Appointment: Emy Westbrook WPtel: [address] [place], [place] [phone] (15 min) Moderate 08/24/2015 Patient Education: Patient Medication Summary Completed 08/24/2015 Patient Education: Smoking and Tobacco Addiction Completed 08/24/2015 Patient Education: Patient Medication Summary Completed 08/23/2015 Appointment: Emy Westbrook WPtel: [address] [place], [place] [phone] (30 min) Complex 08/22/2015 Referral: [facility] Referral Initiated 08/22/2015 Visit Plan: Pt [...] Hypertension Completed 12/28/2014 Appointment: Selena Alvarez WPtel: [address] [place], [place] [address] Follow up 12/20/2014 Visit Plan: Hypertension - [...] 09/21/2014 Care Plan: Referral Order SNOMED-CT : [id number] Ordered 09/21/2014 Appointment: Selena Alvarez WPtel: [phone] [facility] [place] ([place]) New Patient 09/20/2014 Referral: Martinez Wren WPtel: [address] [facility] [place] Referral Initiated Referral: Gavino Navarro Referral Initiated Referral: [facility] WPtel: [facility] Referral Initiated Referral: Dr Arboleda Referral Completed [...] upon leaving this appointment. Verbalizes understanding. . Hypertension - wel l controlled - [...] check INR on thursday probiotics - culture [facility] [place] colon heatl. . Gastroenteritis - discussed need to stay [...] in symptoms, worsening redness, warmth, discharge. . Dr. Alvarez in to see patient. [...] change in blood pressure readings at home. lactobacillus - PROB IOTIC - take three [...] monitor output, call if not improving. . Yeast/candidal of groin - rx for [...]
--- OUTSIDE RECORDS SUMMARY | 2019-08-20 18:39 | XMS REPORT | CCD ---
Author Author Bony Alvarez Organization Selena Alvarez MD, [facility] Address [address] [place] [address] Phone Care Team Providers Care Forensic Dna Analyst Name Role Phone PP Unavailable CCM Unavailable Summary Purpose Interface Exchange Insurance Providers Payer name Policy type / Coverage type Covered democrat ID Effective Begin Date Effective End Date WPS Medicare Part B [id number] Unknown [employer] - [id number] Unknown Family history Father Diagnosis Age At Onset Hyperlipidemia Unknown Coronary Artery Disease Unknown Stroke Unknown Cancer Unknown Congestive heart failure Unknown Mother Diagnosis Age At Onset Hypertension Unknown kidney disease Unknown Cancer Unknown Stroke Unknown Hyperlipidemia Unknown Coronary Artery Disease Unknown Congestive heart failure Unknown Social History Social History Element Codes Description Effective Dates Tobacco history SNOMED CT: 72439744 Current some days smoker 09/21/2014 Allergies, Adverse Reactions, Alerts Allergies, Adverse Reactions, Alerts data not found Past Medical History Illness Codes Condition Status Onset Date Resolved Date Essential (primary) hypertension ICD-9: 401.9 ICD-10: I10 Active 12/27/2014 Unknown Nausea ICD-9: 787.02 ICD-10: R11.0 Active [...] hypertension ICD-9: 401.9 ICD-10: I10 12/27/2014 Active Nausea ICD-9: 787.02 ICD-10: R11.0 01/27/2017 [...] 7.5 mg-a cetaminophen 325 mg tablet RxNorm: 808132 1 Tablet(s) PO QID as needed 03/24/2017 2017 Active allopurinol 100 mg t ablet RxNorm: 887685 TAKE ONE TABLET BY MO UTH DAILY 03/10/2017 03/04/2018 Ac tive hydrocodone 7.5 mg-a cetaminophen 325 mg tablet RxNorm: 529633 1 Tablet(s) PO QID as needed 02/11/2017 03/12/2017 Inactive gabapentin 300 mg ca psule RxNorm: 560675 TAKE ONE CAPSULE BY M OUT THREE TIMES A DAY 02/02/2017 07/01/2017 Ac tive Zofran ODT 4 mg disi ntegrating tablet RxNorm: 033945 1 Tablet(s) PO QID as needed nausea and vomitting 01/27/2017 No Stop Date Active hydrocodone 7.5 mg-a cetaminophen 325 mg tablet RxNorm: 202612 1 Tablet(s) PO QID as needed 01/13/2017 02/10/2017 Inactive potassium chloride E R 20 mEq tablet,extended release RxNorm: 034979 TAKE ONE TABLET BY MOUTH DAILY WHEN TAKING FUROSEMIDE NEEDED 01/12/2017 07/10/2017 Active furosemide 40 mg tablet RxNorm: 772856 TAKE ONE TABLET BY MOUTH DAILY NEEDED FOR SWELLING 01/12/2017 07/10/2017 Active promethazine 25 mg t ablet RxNorm: 311985 TAKE ONE TABLET BY MO UT THREE TIMES A DAY NEEDED FOR NAUSEA AND VOMITING 01/12/2017 01/31/2017 Inactive promethazine 25 mg t ablet RxNorm: 113178 1 Tablet(s) PO TID as needed nausea and vomitting 01/06/2017 01/11/2017 Inactive Lomotil 2.5 mg-0.025 mg tablet RxNorm: 7492542 1-2 Tablet(s) PO BID as needed diarrhea 01/06/2017 01/05/2017 Inactive Lomotil 2.5 mg-0.025 mg tablet RxNorm: 3986843 1-2 Tablet(s) PO BID as needed diarrhea 01/06/2017 01/07/2017 Inactive Pepcid 20 mg tablet RxNorm: 714116 1 Tablet(s) PO BID 12/19/2016 06/16/2017 Active Pepcid 20 mg tablet RxNorm: 489633 1 Tablet(s) PO BID 12/16/2016 12/18/2016 Inactive hydrocodone 7.5 mg-a cetaminophen 325 mg tablet RxNorm: 101030 1 Tablet(s) PO QID as needed 12/16/2016 01/12/2017 Inactive hydrocodone 7.5 mg-a cetaminophen 325 mg tablet RxNorm: 823189 1 Tablet(s) PO QID as needed 11/18/2016 12/15/2016 Inactive allopurinol 100 mg t ablet RxNorm: 058635 TAKE ONE TABLET BY MO UTH DAILY 10/29/2016 02/25/2017 In active hydrocodone 7.5 mg-a cetaminophen 325 mg tablet RxNorm: 244560 1 Tablet(s) PO QID as needed 10/15/2016 11/13/2016 Inactive nystatin 100,000 uni t/gram topical cream RxNorm: 997703 1 Gram(s) TOP QID 10/15/2016 11/25/2016 In active nystatin 100,000 uni t/gram topical powder RxNorm: 901569 1 Gram(s) TOP TID TO GROIN OR AFFECTED AREA 10/14/2016 No Stop Date Active hydrocodone 7.5 mg-a cetaminophen 325 mg tablet RxNorm: 309502 1 Tablet(s) PO QID as needed 09/17/2016 10/14/2016 Inactive furosemide 40 mg tablet RxNorm: 525675 1 Tablet(s) PO daily as needed swelling 09/17/2016 01/11/2017 In active potassium chloride E R 20 mEq tablet,extended release RxNorm: 882841 1 Tablet(s) PO daily as needed take when taking a lasix pill 09/17/2016 01/11/2017 Inactive Levaquin 500 mg tablet RxNorm: 420377 1 Tablet(s) PO daily 09/17/2016 09/21/2016 Inactive hydrocodone 7.5 mg-a cetaminophen 325 mg tablet RxNorm: 982370 1 Tablet(s) PO QID as needed 08/14/2016 09/12/2016 Inactive cyclobenzaprine 5 mg tablet RxNorm: 997770 1 Tablet(s) PO TID as needed 07/25/2016 07/29/2016 In active cyclobenzaprine 5 mg tablet RxNorm: 891295 1 Tablet(s) PO TID as needed 07/25/2016 07/24/2016 In active hydrocodone 7.5 mg-a cetaminophen 325 mg tablet RxNorm: 273084 1 Tablet(s) PO QID as needed 07/21/2016 08/13/2016 Inactive warfarin 1 mg tablet RxNorm: 504390 TAKE ONE TABLET BY MOUTH EVERY EVENING 06/26/2016 08/04/2016 In active hydrocodone 7.5 mg-a cetaminophen 325 mg tablet RxNorm: 876749 1 Tablet(s) PO QID as needed 06/24/2016 07/20/2016 Inactive hydrocodone 5 mg-yanira taminophen 325 mg tablet RxNorm: 280878 1 Tablet(s) PO Q6 as needed for pain 06/09/2016 06/10/2016 Inactive warfarin 1 mg tablet RxNorm: 664469 TAKE ONE TABLET BY MOUTH EVERY EVENING 06/02/2016 06/21/2016 In active allopurinol 100 mg t ablet RxNorm: 220575 TAKE ONE TABLET BY MO UTH DAILY 05/21/2016 10/17/2016 In active hydrocodone 7.5 mg-a cetaminophen 325 mg tablet RxNorm: 646727 1 Tablet(s) PO QID as needed 05/09/2016 06/07/2016 Inactive gabapentin 300 mg ca psule RxNorm: 774665 Capsule(s) TAKE ONE C APSULE BY MOUTH THREE TIMES A DAY 04/25/2016 10/21/2016 Inactive promethazine 25 mg t ablet RxNorm: 842669 TAKE ONE TABLET BY MO UTH THREE TIMES A DAY NEEDED 2016 05/01/2016 Inactive warfarin 1 mg tablet RxNorm: 650659 TAKE ONE TABLET BY MOUTH EVERY EVENING 2016 05/31/2016 In active promethazine 25 mg t ablet RxNorm: 516988 1 Tablet(s) PO TID as needed 04/16/2016 04/21/2016 In active warfarin 1 mg tablet RxNorm: 329260 TAKE ONE TABLET BY MOUTH EVERY EVENING 02/13/2016 04/12/2016 In active magnesium oxide 400 mg tablet RxNorm: 745031 TAKE ONE TABLET BY MO UTH TWICE A DAY 02/07/2016 01/01/2017 In active hydrocodone 5 mg-yanira taminophen 325 mg tablet RxNorm: 345556 1 Tablet(s) PO Q6 as needed for pain 01/21/2016 02/19/2016 Inactive warfarin 1 mg tablet RxNorm: 243102 TAKE ONE TABLET BY MOUTH EVERY EVENING 01/17/2016 02/05/2016 In active gabapentin 300 mg ca psule RxNorm: 292269 Capsule(s) TAKE ONE C APSULE BY MOUTH THREE TIMES A DAY 01/11/2016 04/24/2016 Inactive prednisone 10 mg tablet RxNorm: 828033 Tablet(s) PO UD 01/10/2016 No Stop Date Active 60mg x2 days, then 50mg x2 days, then 40mg x2 days, 30mg x2 days, 20mg x2 days, 10mg x2days, 5mg every other day x 2 doses Kenalog 40 mg/mL cassius pension for injection RxNorm: 6915113 Milliliter(s) Inj 01/07/2016 01/07/2016 In active warfarin 1 mg tablet RxNorm: 806534 TAKE ONE TABLET BY MOUTH EVERY EVENING 01/01/2016 01/16/2016 In active hydrocodone 5 mg-yanira taminophen 325 mg tablet RxNorm: 716398 1 Tablet(s) PO Q6 as needed for pain 01/01/2016 01/15/2016 Inactive gabapentin 300 mg ca psule RxNorm: 796773 TAKE ONE CAPSULE BY M OUTH THREE TIMES A DAY 12/12/2015 01/10/2016 Inactive warfarin 5 mg tablet RxNorm: 792647 1 Tablet(s) PO daily 12/05/2015 No Stop Date Active warfarin 1 mg tablet RxNorm: 580018 TAKE ONE TABLET BY MOUTH EVERY EVENING 11/13/2015 12/22/2015 In active hydrocodone 5 mg-yanira taminophen 325 mg tablet RxNorm: 749861 1 Tablet(s) PO Q6 as needed for pain 10/26/2015 11/09/2015 Inactive allopurinol 100 mg t ablet RxNorm: 708880 1 Tablet(s) PO daily TAKE ONE TABLET BY MOUTH DAILY 10/18/2015 04/14/2016 Inactive hydrocodone 5 mg-yanira taminophen 325 mg tablet RxNorm: 253209 1 Tablet(s) PO Q6 as needed for pain 09/26/2015 10/10/2015 Inactive gabapentin 300 mg ca psule RxNorm: 755094 TAKE ONE CAPSULE BY M OUTH THREE TIMES A DAY 09/14/2015 12/11/2015 Inactive warfarin 1 mg tablet RxNorm: 738355 1 Tablet(s) PO QPM 09/14/2015 11/12/2015 Inactive hydrocodone 5 mg-yanira taminophen 325 mg tablet RxNorm: 352657 1 Tablet(s) PO Q6 as needed for pain 09/12/2015 09/25/2015 Inactive hydrocodone 5 mg-yanira taminophen 325 mg tablet RxNorm: 279227 1 Tablet(s) PO Q6 as needed for pain 08/22/2015 09/05/2015 Inactive Bactrim DS 800 mg-16 0 mg tablet RxNorm: 113721 1 Tablet(s) PO BID 08/20/2015 09/02/2015 Inactive magnesium oxide 400 mg tablet RxNorm: 165304 TAKE ONE TABLET BY [facility] TWICE A DAY 01/20/2015 01/14/2016 In active gabapentin 300 mg ca psule RxNorm: 749876 TAKE ONE CAPSULE BY [facility] THREE TIMES A DAY 01/20/2015 05/19/2015 Inactive magnesium oxide 400 mg tablet RxNorm: 482864 1 Tablet(s) PO BID 01/17/2015 05/16/2015 Inactive gabapentin 300 mg ca psule RxNorm: 254397 1 Capsule(s) PO TID 01/17/2015 05/16/2015 Inactive allopurinol 100 mg t ablet RxNorm: 956781 TAKE ONE TABLET BY [facility] DAILY 10/18/2014 10/12/2015 In active Kenalog 40 mg/mL cassius pension for injection RxNorm: 9711930 1 Milliliter(s) Inj 09/21/2014 09/21/2014 In active allopurinol 100 mg t ablet RxNorm: 459273 1 Tablet(s) PO daily 09/21/2014 10/17/2014 Inactive gabapentin 300 mg ca psule RxNorm: 403391 1 Capsule(s) PO TID 09/12/2014 01/09/2015 Inactive gabapentin 300 mg ca psule RxNorm: 895326 1 Capsule(s) PO TID 09/12/2014 09/11/2014 Inactive magnesium oxide 400 mg tablet RxNorm: 997141 1 Tablet(s) PO BID 09/12/2014 01/09/2015 Inactive magnesium oxide 400 mg tablet RxNorm: 285958 1 Tablet(s) PO BID 09/12/2014 09/11/2014 Inactive lisinopril 5 mg tablet RxNorm: 768347 1 Tablet(s) PO daily No Start Date Active minocycline 50 mg ca psule RxNorm: 721877 1 Capsule(s) PO BID o rdered by Dr. Saravia No Start Date Active Coreg 6.25 mg tablet RxNorm: 016508 1 Tablet(s) PO BID No Start Date Active Combivent Respimat 2 0 mcg-100 mcg/actuation solution for inhalation RxNorm: 9532093 1 Puff(s) INH as needed No Start Date Active Ventolin Refill 90 m cg/actuation aerosol inhaler RxNorm: 550283 2 INH as needed No Start Date Active Centrum Silver Women oral RxNorm: [address] art Date Active aspirin 81 mg capsul e,delayed release RxNorm: 088133 1 Capsule(s) PO daily No Start Date Active nystatin 100,000 uni t/gram topical powder RxNorm: 942497 1 Gram(s) TOP TID No Start Date 10/13/2016 Inactive warfarin 1 mg tablet RxNorm: 387287 oral No Start Date 09/13/2015 Inactive Pepcid 20 mg tablet RxNorm: 099423 1 Tablet(s) PO BID No Start Date 12/15/2016 Inactive Protonix 40 mg table t,delayed release RxNorm: 334275 1 Tablet(s) PO daily No Start Date 09/16/2016 Inactive warfarin 5 mg tablet RxNorm: 131328 1 Tablet(s) PO daily 1.5 tabs on e No Start Date 12/04/2015 Inactive furosemide 40 mg tablet RxNorm: 498037 1 Tablet(s) PO daily No Start Date 09/16/2016 Inactive Medication Administered Medication Codes Instruc tions Start Date Status Kenalog 40 mg/mL suspension for injection RxNorm: 4432104 Milliliter 01/07/2016 No longer Active Kenalog 40 mg/mL suspension for injection RxNorm: 9527125 1Milliliter 09/21/2014 N o longer Active Immunizations No Immunization data Assessments Condition Codes Effectiv e Dates Other fecal abnormalities ICD-10: R1 9.5 ICD-9: 787.7 01/27/2017 Essential (primary) hypertension ICD -10: I10 ICD-9: 401.9 01/27/2017 Tobacco use ICD-10: Z72.0 ICD-9: 305.1 01/27/2017 Nausea ICD-10: R11.0 ICD-9: 787.02 01/27/2017 Chronic obstructive pulmonary disease, unspecified ICD-10: [...] Visit Reason For Visit Effective Dates Notes rash 01/27/2017 resolved rash 11/25/2016 improved rash [...] Code Item Item Code Result Date Pt Xmi2547 PT 64.8 seconds 01/10/2016 Pt Zkc3562 INR 8.6 01/10/2016 Pt Osn0623 Low Intensity - 1.5-2.0 01/10/2016 Pt Vak3949 Mod intensity - 2.0-3.0 01/10/2016 Pt Lus3394 Hi intensity - 3.0-4.0 01/10/2016 Pt Wdx8922 PT 32.1 seconds 11/01/2014 Pt Kzf4783 INR 3.2 11/01/2014 Pt Sww7778 Low Intensity - 1.5-2.0 11/01/2014 Pt Urw2489 Mod intensity - 2.0-3.0 11/01/2014 Pt Vum8273 Hi intensity - 3.0-4.0 11/01/2014 Pt Fcn2969 PT 30.2 seconds 10/03/2014 Pt Ilz4203 INR 3.0 10/03/2014 Pt Hto5595 Low Intensity - 1.5-2.0 10/03/2014 Pt Ryy2009 Mod intensity - 2.0-3.0 10/03/2014 Pt Efu1406 Hi intensity - 3.0-4.0 10/03/2014 D-Dimer D-DIMER 475 NG/ML 09/25/2014 D-Dimer COMMENT 09/25/2014 Magnesium Ord90 Mag 1.1 Result Verified By Repeat Analysis mg/dL 09/22/2014 Pt Lof0262 PT 32.0 seconds 09/22/2014 Pt Dzn4741 INR 3.2 09/22/2014 Pt Rzp8628 Low Intensity - 1.5-2.0 09/22/2014 Pt Ymf4923 Mod intensity - 2.0-3.0 09/22/2014 Pt Cma7044 Hi intensity - 3.0-4.0 09/22/2014 Comp Metabolic Mlc505 NA 137 mEq/L 09/22/2014 Comp Metabolic Daw126 K 4.2 mEq/L 09/22/2014 Comp Metabolic Pka028 CL 102 mEq/L 09/22/2014 Comp Metabolic Yyj166 CO2 25.0 mEq/L 09/22/2014 Comp Metabolic Yhn129 AN ION GAP 14 09/22/2014 Comp Metabolic Egr415 GL UCOSE 94 mg/dL 09/22/2014 Comp Metabolic Lqz366 Cr eat 0.8 mg/dL 09/22/2014 Comp Metabolic Szx417 eG FR 102 ml/min/1.73m2 09/06 Comp Metabolic Gvl739 BUN 15 mg/dL 09/22/2014 Comp Metabolic Lus375 B/ C Ratio 18.8 Ratio 09/22/2014 Comp Metabolic Xyg748 CA LCIUM 9.4 mg/dL 09/22/2014 Comp Metabolic Djv942 AL K PHOS 65 U/L 09/22/2014 Comp Metabolic Eza522 T(SGOT) 15 U/L 09/22/2014 Comp Metabolic Jqr737 AL T(SGPT) 8 U/L 09/22/2014 Comp Metabolic Vnl896 BI LI T 0.4 mg/dL 09/22/2014 Comp Metabolic Wav525 AL BUMIN 4.0 g/dL 09/22/2014 Comp Metabolic Dun846 TP RO 6.8 g/dL 09/22/2014 Comp Metabolic Ljt900 GL OB 2.8 g/dL 09/22/2014 Comp Metabolic Ksw400 A/ G Ratio 1.4 Ratio 09/22/2014 Comp Metabolic Ban410 Os mo 274 mOsmo 09/22/2014 C-Reactive Protein [...] System Result Effective Dates Constitutional recent illness 01/27/2017 Constitutional No chills [...] bilaterally 08/14/2016 None Full Exam - General 1995 Ears/Nose/Throat otoscopic exam Overall: external auditory canals [...] than left Procedures Procedure Codes Date TOBACCO-USE OUTSIDE PROPERTY AGENT 3-[address]: 889510374 CPT-4: G0436 01/27/2017 TOBACCO-USE OUTSIDE PROPERTY AGENT 3-[address]: 640819568 CPT-4: G0436 11/25/2016 TOBACCO-USE OUTSIDE PROPERTY AGENT 3-[address]: 057040912 CPT-4: G0436 10/15/2016 TOBACCO-USE OUTSIDE PROPERTY AGENT 3-[address]: 201877373 CPT-4: G0436 09/17/2016 THER/PROPH/DIAG INJ SC/IM CPT-4: 47391 01/07/2016 TRIAMCINOLONE ACET I [place] NOS CPT-4: J3301 01/07/2016 TRIAMCINOLONE ACET I [place] NOS CPT-4: J3301 09/21/2014 THER/PROPH/DIAG INJ SC/IM CPT-4: 16621 09/21/2014 Vital Signs Date Vital 01/27/2017 Blood Pressure 1: 110/72 Code: 8480-6 [...] 1: 128/78 Code: 8480-6 BMI: 33.3 Code: 16233-6 Heart Rate 1: 72 bpm Height: 5'3" SpO2: 97% Weight: 188 lbs 01/10/2016 Blood Pressure 1: 132/76 Code: 8480-6 BMI: 33.1 Code: 40447-7 Heart Rate 1: 72 bpm Height: 5'3" SpO2: 97% Weight: 187 lbs 12/25/2015 Blood Pressure 1: 154/82 Code: 8480-6 BMI: 33.1 Code: 13840-3 Heart Rate 1: 72 bpm Height: 5'3" SpO2: 97% Weight: 187 lbs 10/11/2015 Blood Pressure 1: 110/62 Code: 8480-6 BMI: 34.7 Code: 58842-0 Heart Rate 1: 70 bpm Height: 5'3" SpO2: 93% Weight: 196 lbs 08/24/2015 Blood Pressure 1: 132/62 Code: 8480-6 BMI: 35.3 Code: 51006-3 Heart Rate 1: 62 bpm Height: 5'3" SpO2: 93% Weight: 199 lbs 08/20/2015 Blood Pressure 1: 140/68 Code: 8480-6 BMI: 35.3 Code: 05663-6 Heart Rate 1: 74 bpm Height: 5'3" SpO2: 96% Weight: 199 lbs 12/28/2014 Blood Pressure 1: 130/72 Code: 8480-6 BMI: 33.1 Code: 70427-2 Heart Rate 1: 60 bpm Height: 5'3" SpO2: 97% Weight: 187 lbs 10/31/2014 Blood Pressure 1: 118/72 Code: 8480-6 BMI: 31.2 Code: 68123-2 Heart Rate 1: 58 bpm Height: 5'3" SpO2: 98% Weight: 176 lbs 10/02/2014 Blood Pressure 1: 138/74 Code: 8480-6 BMI: 30.6 Code: 74751-3 Heart Rate 1: 72 bpm Height: 5'3" Weight: 173 lbs 09/21/2014 Blood Pressure 1: 138/72 Code: 8480-6 BMI: 30.5 Code: 76867-4 Heart Rate 1: 60 bpm Height: 5'3" SpO2: 96% Weight: 172 lbs Functional Status No Functional Status data History of Present Illness Symptom Name Status Resu lt Effective Date Notes rash Quality chronic 01/27/2017 None rash Quality [...] daily 12/25/2015 None Hospital Follow Up _ [facility] er: diverticulitis 10/11/2015 None Hospital Follow [...] Encounters Encounter Performer Loca tion Codes Date ([id number]) 20402 EST. P ATIENT, LEVEL IV Diagnosis: Essential (primary) hypertension[ICD10: I10] Diagnosis: Nausea[ICD10: R11.0] Diagnosis: Other fecal abnormalities[ICD10: R19.5] Diagnosis: Tobacco use[ICD10: Z72.0] Selena Alvarez MD, [facility] CPT-4: 27912 01/27/2017 ([id number]) 57322 EST. P ATIENT, LEVEL III Diagnosis: Essential (primary) hypertension[ICD10: I10] Diagnosis: Chronic obstructive pulmonary disease, unspecified[ICD10: J44.9] Diagnosis: Rash and other nonspecific skin eruption[ICD10: R21] Selena Alvarez MD, [facility] CPT-4: 53572 11/25/2016 ([id number]) 82357 EST. P ATIENT, LEVEL III Diagnosis: Other sites of candidiasis[ICD10: B37.89] Selena Alvarez MD, [facility] CPT-4: 40908 10/15/2016 ([id number]) 77488 EST. P ATIENT, LEVEL IV Diagnosis: Essential (primary) hypertension[ICD10: I10] Diagnosis: Urinary tract infection, site not specified[ICD10: N39.0] Diagnosis: Localized edema[ICD10: R60.0] Selena Alvarez MD, [facility] CPT-4: 47627 09/17/2016 [id number] EST. 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 PATIENT, LEVEL III Diagnosis: Other specified bacterial intestinal infections[ICD10: A04.8] Rox Alvarez MD, [facility] CPT-4: 39462 04/16/2016 37531 EST. PATIENT, LEVEL II Diagnosis: Pain in right foot[ICD10: M79.671] Rox Alvarez MD, [facility] CPT-4: 49461 01/21/2016 35532 EST. PATIENT, LEVEL III Diagnosis: Encounter for therapeutic drug level monitoring[ICD10: Z51.81] Diagnosis: Rash and other nonspecific skin eruption[ICD10: R21] Rox Alvarez MD, [facility] CPT-4: 67917 01/10/2016 53763 EST. PATIENT, LEVEL III Diagnosis: Rash and other nonspecific skin eruption[ICD10: R21] Rox Alvarez MD, [facility] CPT-4: 97816 01/07/2016 ([id number]) Miscellaneou s no charge Diagnosis: Cutaneous abscess of left axilla[ICD10: L02.412] Rox Alvarez MD [facility] CPT-4: 32667 01/02/2016 ([id number]) Miscellaneou s no charge Diagnosis: Cutaneous abscess of left axilla[ICD10: L02.412] Rox Alvarez MD [facility] CPT-4: 58534 01/01/2016 ([id number]) Miscellaneou s no charge Diagnosis: Cutaneous abscess of left axilla[ICD10: L02.412] Rox Alvarez MD [facility] CPT-4: 30099 12/31/2015 ([id number]) Patient adm itted to the hospital from clinic (NO CHARGE) Diagnosis: Cutaneous abscess of left axilla[ICD10: L02.412] Rox Alvarez MD [facility] CPT-4: 07581A 12/25/2015 68663 EST. PATIENT, LEVEL III Diagnosis: Encounter for follow-up examination after completed treatment for conditions other than malignant neoplasm[ICD10: Z09] Diagnosis: Diverticulitis of intestine, part unspecified, without perforation or abscess with bleeding[ICD10: K57.93] Diagnosis: Cellulitis of left toe[ICD10: L03.032] Diagnosis: Other obesity due to excess calories[ICD10: E66.09] Diagnosis: Other prison (current) drug therapy[ICD10: Z79.899] Rox Alvarez MD, [facility] CPT-4: 87041 10/11/2015 ([id number]) Miscellaneou s no charge Diagnosis: Encounter for therapeutic drug level monitoring[ICD10: Z51.81] Diagnosis: Other acute osteomyelitis, left ankle and foot[ICD10: M86.172] Rox Alvarez MD, [facility] CPT-4: 85419 08/24/2015 76802 EST. PATIENT, LEVEL IV Diagnosis: Cellulitis of left toe[ICD10: L03.032] Rox Alvarez MD, [facility] CPT-4: 88327 08/20/2015 11550 EST. PATIENT, LEVEL III Diagnosis: Essential (primary) hypertension[ICD10: I10] Diagnosis: Peripheral vascular disease, unspecified[ICD10: I73.9] Diagnosis: Dermatitis, unspecified[ICD10: L30.9] Rox Alvarez MD, [facility] CPT- 4: 10376 12/28/2014 ([id number]) 36826 EST. P ATIENT, LEVEL III Diagnosis: ESSENTIAL HYPERTENSION[ICD9: 401.9] Diagnosis: PAD (peripheral artery disease)[ICD9: 443.9] Diagnosis: Anticoagulated on Coumadin[ICD9: V58.83] Emy Alvarez MD, [facility] CPT-4: 45891 10/31/2014 ([id number]) 65298 EST. P ATIENT, LEVEL III Diagnosis: PAD (peripheral artery disease)[ICD9: 443.9] Diagnosis: Anticoagulated on Coumadin[ICD9: V58.83] Diagnosis: SCLERITIS[ICD9: 379.00] Diagnosis: ESSENTIAL HYPERTENSION[ICD9: 401.9] Selena Alvarez MD, [facility] CPT- 4: 58608 10/02/2014 ([id number]) OFFICE [facility] LEVEL 4 Diagnosis: GOUT[ICD9: 274.9] Diagnosis: COPD (chronic obstructive pulmonary disease)[ICD9: 496] Diagnosis: PAD (peripheral artery disease)[ICD9: 443.9] Diagnosis: ESSENTIAL HYPERTENSION[ICD9: 401.9] Selena Alvarez MD, [facility] CPT- 4: 05484 09/21/2014 Plan of Care Planned Activity Notes C odes Status Date Appointment: Selena Alvarez [facility]el: [facility] (15 min) Moderate 02/26/2017 Visit Plan: Hypertension [...] not improving. 01/27/2017 Appointment: Selena Alvarez WPtel: [facility] (15 min) Moderate 01/27/2017 Patient Education: Patient [...] nystatin 11/25/2016 Appointment: Selena Alvarez WPtel: [phone] [facility] (15 min) Moderate 11/25/2016 Appointment: Selena Alvarez WPtel: [phone] [facility] (15 min) Moderate 11/25/2016 Patient Education: [...] over-medication. 10/15/2016 Appointment: Selena Alvarez WPtel: [phone] [facility] (15 min) Moderate 10/15/2016 Patient Education: Patient Medication Summary Completed 10/15/2016 Patient Education: Smoking and Tobacco Addiction Completed 10/15/2016 Appointment: Rox Luciano WPtel: [phone] [facility] (30 min) Complex 09/18/2016 Visit Plan: [...] mobility evaluation. 08/14/2016 Appointment: Rox Luciano WPtel: [address] [place], [place] [address] (30 min) Complex 08/14/2016 Patient Education: Patient [...] stomach pain. 04/16/2016 Appointment: Rox Luciano WPtel: [facility] (15 min) Moderate 04/16/2016 Patient Education: Patient Medication Summary Completed 04/16/2016 Patient Education: Smoking and Tobacco Addiction Completed 04/16/2016 Referral: Dr Arboleda Referral Completed 02/14/2016 Care Plan: Referral Order SNOMED-CT : [id number] Pending 01/29/2016 Visit Plan: Right foot pain [...] discharge. 01/10/2016 Appointment: Rox Luciano WPtel: [address] [place], [place] [phone] (30 min) [facility] 01/10/2016 Patient Education: Patient Medication [...] - Pt states that he went to [facility] care for the abscess and [...] I&D. 12/25/2015 Appointment: Emy Westbrook WPtel: [phone] [phone] (15 min) Moderate 12/25/2015 Patient Education: Patient [...] management. 10/11/2015 Appointment: Rox Luciano WPtel: [phone] (30 min) Complex 10/11/2015 Patient Education: Patient Medication Summary Completed 10/11/2015 Patient Education: Smoking and Tobacco Addiction Completed 10/11/2015 Patient Education: Obesity Completed 10/11/2015 Referral: Gavino Navarro they are g oing to call if they get him in before if not we will call Dr shook Initiated 09/27/2015 Appointment: Emy Westbrook WPtel: [phone] (15 min) Moderate 08/24/2015 Patient Education: Patient Medication Summary Completed 08/24/2015 Patient Education: Smoking and Tobacco Addiction Completed 08/24/2015 Patient Education: Patient Medication Summary Completed 08/23/2015 Appointment: Emy Westbrook WPtel: [phone] [phone] (30 min) Complex 08/22/2015 Referral: [facility] WPtel: 1 [facility] Referral Initiated 08/22/2015 Visit Plan: Pt on [...] Hypertension Completed 12/28/2014 Appointment: Selena Alvarez WPtel: [facility] Follow up 12/20/2014 Visit Plan: Hypertension - [...] 09/21/2014 Care Plan: Referral Order SNOMED-CT : [id number] Ordered 09/21/2014 Appointment: Selena Alvarez [facility]: [phone] [facility] [id number] [place] 09/20/2014 Referral: Martinez Wren WPtel: [phone] [id number] [place] Referral Initiated Referral: Gavino Navarro Referral Initiated Referral: [facility] WPtel: 1 [id number] [place] [...] management. probiotics - culture viviane or milagros colvin. . Gastroenteritis - discussed need to stay [...] monitor output, call if not improving. . Hypertension - wel l controlled - [...]
--- OUTSIDE RECORDS SUMMARY | 2019-08-20 18:40 | XMS REPORT | CCD ---
Author Author Bony Alvarez Organization Selena Alvarez MD, [facility] Address [address] [place] [address] Phone Care Team Providers Care Isotope Hydrologist Name Role Phone PP Unavailable CCM Unavailable Summary Purpose Interface Exchange Insurance Providers Payer name Policy type / Coverage type Covered republican ID Effective Begin Date Effective End Date WPS Medicare Part B 51 [id number] Unknown [employer] - [id number] Unknown Family history Father Diagnosis Age At Onset Hyperlipidemia Unknown Coronary Artery Disease Unknown Stroke Unknown Cancer Unknown Congestive heart failure Unknown Mother Diagnosis Age At Onset Hypertension Unknown kidney disease Unknown Cancer Unknown Stroke Unknown Hyperlipidemia Unknown Coronary Artery Disease Unknown Congestive heart failure Unknown Social History Social History Element Codes Description Effective Dates Tobacco history SNOMED CT: 94615745 Current some days smoker 09/21/2014 Allergies, Adverse Reactions, Alerts Allergies, Adverse Reactions, Alerts data not found Past Medical History Illness Codes Condition Status Onset Date Resolved Date Diarrhea, unspecified ICD-9: 787.91 ICD-10: R19.7 Active 04/21/2017 Unknown Generalized anxiety disorder ICD-9: 300.00 ICD-10: F41.1 Active 04/21/2017 Unknown Major depressive dis order, single episode, moderate ICD-9: 296.22 ICD-10: F32.1 Active 04/21/2017 Unknown Essential (primary) hypertension ICD-9: [...] Condition Codes Effectiv e Dates Condition Status Diarrhea, unspecified ICD-9: 787.91 ICD-10: R19.7 04/21/2017 Active Generalized anxiety disorder ICD-9: 300.00 ICD-10: F41.1 04/21/2017 Active Major depressive dis order, single episode, moderate ICD-9: 296.22 ICD-10: F32.1 04/21/2017 Active Essential (primary) hypertension ICD-9: 401.9 [...] ICD-9: V67.59 ICD-10: Z09 10/10/2015 Active Other intermission coordinator (cur rent) drug therapy ICD-9: V58.69 ICD-10: [...] 7.5 mg-a cetaminophen 325 mg tablet RxNorm: 491849 1 Tablet(s) PO QID as needed 04/21/2017 05/20/2017 Active hyoscyamine 0.125 mg sublingual tablet RxNorm: 9212720 1 Tablet(s) SL TID a s needed 04/21/2017 04/25/2017 Ac tive Lexapro 10 mg tablet RxNorm: 079019 1 Tablet(s) PO QHS 04/21/2017 07/19/2017 Active Flagyl 500 mg tablet RxNorm: 959081 1 Tablet(s) PO TID 04/07/2017 04/16/2017 Inactive Lexapro 10 mg tablet RxNorm: 669343 1 Tablet(s) PO QHS 04/07/2017 04/20/2017 Inactive hydrocodone 7.5 mg-a cetaminophen 325 mg tablet RxNorm: 626034 1 Tablet(s) PO QID as needed 03/24/2017 04/20/2017 Inactive allopurinol 100 mg t ablet RxNorm: 283875 TAKE ONE TABLET BY [facility] DAILY 03/10/2017 03/04/2018 Ac tive hydrocodone 7.5 mg-a cetaminophen 325 mg tablet RxNorm: 708629 1 Tablet(s) PO QID as needed 02/11/2017 03/12/2017 Inactive gabapentin 300 mg ca psule RxNorm: 944106 TAKE ONE CAPSULE BY [facility] THREE TIMES A DAY 02/02/2017 07/01/2017 Ac tive Zofran ODT 4 mg disi ntegrating tablet RxNorm: 177939 1 Tablet(s) PO QID as needed nausea and vomitting 01/27/2017 No Stop Date Active hydrocodone 7.5 mg-a cetaminophen 325 mg tablet RxNorm: 364077 1 Tablet(s) PO QID as needed 01/13/2017 02/10/2017 Inactive potassium chloride E R 20 mEq tablet,extended release RxNorm: 881196 TAKE ONE TABLET BY MOUTH DAILY WHEN TAKING FUROSEMIDE NEEDED 01/12/2017 07/10/2017 Active furosemide 40 mg tablet RxNorm: 320136 TAKE ONE TABLET BY MOUTH DAILY NEEDED FOR SWELLING 01/12/2017 07/10/2017 Active promethazine 25 mg t ablet RxNorm: 253895 TAKE ONE TABLET BY [facility] THREE TIMES A DAY NEEDED FOR NAUSEA AND VOMITING 01/12/2017 01/31/2017 Inactive promethazine 25 mg t ablet RxNorm: 239363 1 Tablet(s) PO TID as needed nausea and vomitting 01/06/2017 01/11/2017 Inactive Lomotil 2.5 mg-0.025 mg tablet RxNorm: 2360941 1-2 Tablet(s) PO BID as needed diarrhea 01/06/2017 01/05/2017 Inactive Lomotil 2.5 mg-0.025 mg tablet RxNorm: 6755250 1-2 Tablet(s) PO BID as needed diarrhea 01/06/2017 01/07/2017 Inactive Pepcid 20 mg tablet RxNorm: 643141 1 Tablet(s) PO BID 12/19/2016 06/16/2017 Active Pepcid 20 mg tablet RxNorm: 157689 1 Tablet(s) PO BID 12/16/2016 12/18/2016 Inactive hydrocodone 7.5 mg-a cetaminophen 325 mg tablet RxNorm: 917180 1 Tablet(s) PO QID as needed 12/16/2016 01/12/2017 Inactive hydrocodone 7.5 mg-a cetaminophen 325 mg tablet RxNorm: 649213 1 Tablet(s) PO QID as needed 11/18/2016 12/15/2016 Inactive allopurinol 100 mg t ablet RxNorm: 416515 TAKE ONE TABLET BY [facility] DAILY 10/29/2016 02/25/2017 In active hydrocodone 7.5 mg-a cetaminophen 325 mg tablet RxNorm: 845330 1 Tablet(s) PO QID as needed 10/15/2016 11/13/2016 Inactive nystatin 100,000 uni t/gram topical cream RxNorm: 804254 1 Gram(s) TOP QID 10/15/2016 11/25/2016 In active nystatin 100,000 uni t/gram topical powder RxNorm: 191399 1 Gram(s) TOP TID TO GROIN OR AFFECTED AREA 10/14/2016 No Stop Date Active hydrocodone 7.5 mg-a cetaminophen 325 mg tablet RxNorm: 154991 1 Tablet(s) PO QID as needed 09/17/2016 10/14/2016 Inactive furosemide 40 mg tablet RxNorm: 519810 1 Tablet(s) PO daily as needed swelling 09/17/2016 01/11/2017 In active potassium chloride E R 20 mEq tablet,extended release RxNorm: 285314 1 Tablet(s) PO daily as needed take when taking a lasix pill 09/17/2016 01/11/2017 Inactive Levaquin 500 mg tablet RxNorm: 091605 1 Tablet(s) PO daily 09/17/2016 09/21/2016 Inactive hydrocodone 7.5 mg-a cetaminophen 325 mg tablet RxNorm: 895820 1 Tablet(s) PO QID as needed 08/14/2016 09/12/2016 Inactive cyclobenzaprine 5 mg tablet RxNorm: 915082 1 Tablet(s) PO TID as needed 07/25/2016 07/29/2016 In active cyclobenzaprine 5 mg tablet RxNorm: 735031 1 Tablet(s) PO TID as needed 07/25/2016 07/24/2016 In active hydrocodone 7.5 mg-a cetaminophen 325 mg tablet RxNorm: 426572 1 Tablet(s) PO QID as needed 07/21/2016 08/13/2016 Inactive warfarin 1 mg tablet RxNorm: 689187 TAKE ONE TABLET BY MOUTH EVERY EVENING 06/26/2016 08/04/2016 In active hydrocodone 7.5 mg-a cetaminophen 325 mg tablet RxNorm: 074360 1 Tablet(s) PO QID as needed 06/24/2016 07/20/2016 Inactive hydrocodone 5 mg-yanira taminophen 325 mg tablet RxNorm: 050844 1 Tablet(s) PO Q6 as needed for pain 06/09/2016 06/10/2016 Inactive warfarin 1 mg tablet RxNorm: 994560 TAKE ONE TABLET BY MOUTH EVERY EVENING 06/02/2016 06/21/2016 In active allopurinol 100 mg t ablet RxNorm: 341155 TAKE ONE TABLET BY [facility] DAILY 05/21/2016 10/17/2016 In active hydrocodone 7.5 mg-a cetaminophen 325 mg tablet RxNorm: 698302 1 Tablet(s) PO QID as needed 05/09/2016 06/07/2016 Inactive gabapentin 300 mg ca psule RxNorm: 917190 Capsule(s) TAKE ONE C APSULE BY MOUTH THREE TIMES A DAY 04/25/2016 10/21/2016 Inactive promethazine 25 mg t ablet RxNorm: 684786 TAKE ONE TABLET BY [facility] THREE TIMES A DAY NEEDED 2016 05/01/2016 Inactive warfarin 1 mg tablet RxNorm: 912190 TAKE ONE TABLET BY MOUTH EVERY EVENING 2016 05/31/2016 In active promethazine 25 mg t ablet RxNorm: 378838 1 Tablet(s) PO TID as needed 04/16/2016 04/21/2016 In active warfarin 1 mg tablet RxNorm: 134769 TAKE ONE TABLET BY MOUTH EVERY EVENING 02/13/2016 04/12/2016 In active magnesium oxide 400 mg tablet RxNorm: 369907 TAKE ONE TABLET BY [facility] TWICE A DAY 02/07/2016 01/01/2017 In active hydrocodone 5 mg-yanira taminophen 325 mg tablet RxNorm: 576558 1 Tablet(s) PO Q6 as needed for pain 01/21/2016 02/19/2016 Inactive warfarin 1 mg tablet RxNorm: 974102 TAKE ONE TABLET BY MOUTH EVERY EVENING 01/17/2016 02/05/2016 In active gabapentin 300 mg ca psule RxNorm: 963613 Capsule(s) TAKE ONE C APSULE BY MOUTH THREE TIMES A DAY 01/11/2016 04/24/2016 Inactive prednisone 10 mg tablet RxNorm: 932977 Tablet(s) PO UD 01/10/2016 No Stop Date Active 60mg x2 days, then 50mg x2 days, then 40mg x2 days, 30mg x2 days, 20mg x2 days, 10mg x2days, 5mg every other day x 2 doses Kenalog 40 mg/[facility] RxNorm: 2142270 Milliliter(s) Inj 01/07/2016 01/07/2016 In active warfarin 1 mg tablet RxNorm: 887595 TAKE ONE TABLET BY MOUTH EVERY EVENING 01/01/2016 01/16/2016 In active hydrocodone 5 mg-yanira taminophen 325 mg tablet RxNorm: 399003 1 Tablet(s) PO Q6 as needed for pain 01/01/2016 01/15/2016 Inactive gabapentin 300 mg ca psule RxNorm: 500300 TAKE ONE CAPSULE BY [facility] THREE TIMES A DAY 12/12/2015 01/10/2016 Inactive warfarin 5 mg tablet RxNorm: 426416 1 Tablet(s) PO daily 12/05/2015 No Stop Date Active warfarin 1 mg tablet RxNorm: 306801 TAKE ONE TABLET BY MOUTH EVERY EVENING 11/13/2015 12/22/2015 In active hydrocodone 5 mg-yanira taminophen 325 mg tablet RxNorm: 273826 1 Tablet(s) PO Q6 as needed for pain 10/26/2015 11/09/2015 Inactive allopurinol 100 mg t ablet RxNorm: 554530 1 Tablet(s) PO daily TAKE ONE TABLET BY MOUTH DAILY 10/18/2015 04/14/2016 Inactive hydrocodone 5 mg-yanira taminophen 325 mg tablet RxNorm: 434148 1 Tablet(s) PO Q6 as needed for pain 09/26/2015 10/10/2015 Inactive gabapentin 300 mg ca psule RxNorm: 832652 TAKE ONE CAPSULE BY [facility] THREE TIMES A DAY 09/14/2015 12/11/2015 Inactive warfarin 1 mg tablet RxNorm: 318677 1 Tablet(s) PO QPM 09/14/2015 11/12/2015 Inactive hydrocodone 5 mg-yanira taminophen 325 mg tablet RxNorm: 478408 1 Tablet(s) PO Q6 as needed for pain 09/12/2015 09/25/2015 Inactive hydrocodone 5 mg-yanira taminophen 325 mg tablet RxNorm: 857085 1 Tablet(s) PO Q6 as needed for pain 08/22/2015 09/05/2015 Inactive Bactrim DS 800 mg-16 0 mg tablet RxNorm: 273759 1 Tablet(s) PO BID 08/20/2015 09/02/2015 Inactive magnesium oxide 400 mg tablet RxNorm: 046438 TAKE ONE TABLET BY [facility] TWICE A DAY 01/20/2015 01/14/2016 In active gabapentin 300 mg ca psule RxNorm: 396342 TAKE ONE CAPSULE BY [facility] THREE TIMES A DAY 01/20/2015 05/19/2015 Inactive magnesium oxide 400 mg tablet RxNorm: 736290 1 Tablet(s) PO BID 01/17/2015 05/16/2015 Inactive gabapentin 300 mg ca psule RxNorm: 988155 1 Capsule(s) PO TID 01/17/2015 05/16/2015 Inactive allopurinol 100 mg t ablet RxNorm: 240184 TAKE ONE TABLET BY [facility] DAILY 10/18/2014 10/12/2015 In active Kenalog 40 mg/mL [facility] [employer] for injection RxNorm: 1154073 1 Milliliter(s) Inj 09/21/2014 09/21/2014 In active allopurinol 100 mg t ablet RxNorm: 846715 1 Tablet(s) PO daily 09/21/2014 10/17/2014 Inactive gabapentin 300 mg ca psule RxNorm: 846461 1 Capsule(s) PO TID 09/12/2014 01/09/2015 Inactive gabapentin 300 mg ca psule RxNorm: 022912 1 Capsule(s) PO TID 09/12/2014 09/11/2014 Inactive magnesium oxide 400 mg tablet RxNorm: 693684 1 Tablet(s) PO BID 09/12/2014 01/09/2015 Inactive magnesium oxide 400 mg tablet RxNorm: 896633 1 Tablet(s) PO BID 09/12/2014 09/11/2014 Inactive lisinopril 5 mg tablet RxNorm: 075253 1 Tablet(s) PO daily No Start Date Active atorvastatin oral RxNorm: 19724 oral No Start Date Active minocycline 50 mg ca psule RxNorm: 474388 1 Capsule(s) PO BID o rdered by Dr. Saravia No Start Date Active Coreg 6.25 mg tablet RxNorm: 121181 1 Tablet(s) PO BID No Start Date Active Combivent Respimat 2 0 mcg-100 mcg/actuation solution for inhalation RxNorm: 9884424 1 Puff(s) INH as needed No Start Date Active Ventolin Refill 90 m cg/actuation aerosol inhaler RxNorm: 240674 2 INH as needed No Start Date Active Centrum Silver Women oral RxNorm: [address] art Date Active aspirin 81 mg capsul e,delayed release RxNorm: 989654 1 Capsule(s) PO daily No Start Date Active nystatin 100,000 uni t/gram topical powder RxNorm: 846935 1 Gram(s) TOP TID No Start Date 10/13/2016 Inactive warfarin 1 mg tablet RxNorm: 880802 oral No Start Date 09/13/2015 Inactive Pepcid 20 mg tablet RxNorm: 154709 1 Tablet(s) PO BID No Start Date 12/15/2016 Inactive Protonix 40 mg table t,delayed release RxNorm: 800007 1 Tablet(s) PO daily No Start Date 09/16/2016 Inactive warfarin 5 mg tablet RxNorm: 582143 1 Tablet(s) PO daily 1.5 tabs on Thu No Start Date 12/04/2015 Inactive furosemide 40 mg tablet RxNorm: 385541 1 Tablet(s) PO daily No Start Date 09/16/2016 Inactive Medication Administered Medication Codes Instruc tions Start Date Status Kenalog 40 mg/mL suspension for injection RxNorm: 7734643 Milliliter 01/07/2016 No longer Active Kenalog 40 mg/mL suspension for injection RxNorm: 9696670 1Milliliter 09/21/2014 N o longer Active Immunizations No Immunization data Assessments Condition Codes Effectiv e Dates Major depressive disorder, single episode, moderate ICD-10: F32.1 ICD-9: 296.22 04/21/2017 Diarrhea, unspecified ICD-10: R19.7 ICD-9: 787.91 04/21/2017 Generalized anxiety disorder ICD-10: F41.1 ICD-9: 300.00 04/21/2017 Other fecal abnormalities ICD-10: R1 9.5 ICD-9: [...] neoplasm ICD-10: Z09 ICD-9: V67.59 10/11/2015 Other intermission coordinator (current) drug therapy ICD-10: Z79.899 ICD-9: V58.69 [...] Visit Reason For Visit Effective Dates Notes depression 04/21/2017 rash 01/27/2017 resolved rash 11/25/2016 improved rash [...] Shiga Toxin 1 & 2 Eia Stool 367396 SHIGA TOXIN 1: NEGATIVE 04/12/2017 Shiga Toxin 1 & 2 Eia Stool 830810 SHIGA TOXIN 2: NEGATIVE 04/12/2017 Culture Stool [id number] STO OL CULTURE SEE NOTES 04/12/2017 Clostridium Diff Tox A/B Aak961 Cdiff Negative 04/09/2017 Pt Ubu1583 PT 64.8 seconds 01/10/2016 Pt Bgy2030 INR 8.6 01/10/2016 Pt Czx0587 Low Intensity - 1.5-2.0 01/10/2016 Pt Zxr2951 Mod intensity - 2.0-3.0 01/10/2016 Pt Hgn7917 Hi intensity - 3.0-4.0 01/10/2016 Pt Swf0851 PT 32.1 seconds 11/01/2014 Pt Hdw2824 INR 3.2 11/01/2014 Pt Tvj3204 Low Intensity - 1.5-2.0 11/01/2014 Pt Hhv6736 Mod intensity - 2.0-3.0 11/01/2014 Pt Csr2790 Hi intensity - 3.0-4.0 11/01/2014 Pt Cdx8229 PT 30.2 seconds 10/03/2014 Pt Ani5188 INR 3.0 10/03/2014 Pt Mdi3077 Low Intensity - 1.5-2.0 10/03/2014 Pt Iev9196 Mod intensity - 2.0-3.0 10/03/2014 Pt Xfb7947 Hi intensity - 3.0-4.0 10/03/2014 D-Dimer D-DIMER 475 NG/ML 09/25/2014 D-Dimer COMMENT 09/25/2014 Magnesium Ord90 Mag 1.1 Result Verified By Repeat Analysis mg/dL 09/22/2014 Pt Csc8585 PT 32.0 seconds 09/22/2014 Pt Onu2187 INR 3.2 09/22/2014 Pt Wal8250 Low Intensity - 1.5-2.0 09/22/2014 Pt Fdy8036 Mod intensity - 2.0-3.0 09/22/2014 Pt Qff0184 Hi intensity - 3.0-4.0 09/22/2014 Comp Metabolic Dsk469 NA 137 mEq/L 09/22/2014 Comp Metabolic Nxk414 K 4.2 mEq/L 09/22/2014 Comp Metabolic Dli048 CL 102 mEq/L 09/22/2014 Comp Metabolic Ymx782 CO2 25.0 mEq/L 09/22/2014 Comp Metabolic Ppj203 AN ION GAP 14 09/22/2014 Comp Metabolic Rhi361 GL UCOSE 94 mg/dL 09/22/2014 Comp Metabolic Tvt361 Cr eat 0.8 mg/dL 09/22/2014 Comp Metabolic Clm024 eG FR 102 ml/min/1.73m2 09/06 Comp Metabolic Dyg229 BUN 15 mg/dL 09/22/2014 Comp Metabolic Tco832 B/ C Ratio 18.8 Ratio 09/22/2014 Comp Metabolic Smw572 CA LCIUM 9.4 mg/dL 09/22/2014 Comp Metabolic Opc589 AL K PHOS 65 U/L 09/22/2014 Comp Metabolic Pwt702 T(SGOT) 15 U/L 09/22/2014 Comp Metabolic Xtx589 AL T(SGPT) 8 U/L 09/22/2014 Comp Metabolic Sro920 BI LI T 0.4 mg/dL 09/22/2014 Comp Metabolic Hqw158 AL BUMIN 4.0 g/dL 09/22/2014 Comp Metabolic Ssc543 TP RO 6.8 g/dL 09/22/2014 Comp Metabolic Gcs071 GL OB 2.8 g/dL 09/22/2014 Comp Metabolic Eso850 A/ G Ratio 1.4 Ratio 09/22/2014 Comp Metabolic Qzc184 Os mo 274 mOsmo 09/22/2014 C-Reactive Protein [...] Result Effective Dates Constitutional No recent illness 04/21/2017 Constitutional No [...] Psychiatric depression 0 04/21/2017 Constitutional recent illness 01/27/2017 Constitutional No chills [...] than left Procedures Procedure Codes Date 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 3-[address]: 879835841 CPT-4: G0436 01/27/2017 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 3-[address]: 814526753 CPT-4: G0436 11/25/2016 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 3-[address]: 430114772 CPT-4: G0436 10/15/2016 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 3-[address]: 547122098 CPT-4: G0436 09/17/2016 THER/PROPH/DIAG INJ SC/IM CPT-4: 13279 01/07/2016 TRIAMCINOLONE ACET I [place] NOS CPT-4: J3301 01/07/2016 TRIAMCINOLONE ACET I [place] NOS CPT-4: J3301 09/21/2014 THER/PROPH/DIAG INJ SC/IM CPT-4: 01277 09/21/2014 Vital Signs Date Vital 04/21/2017 Blood Pressure 1: 134/78 Code: 8480-6 Heart Rate 1: 77 bpm Height: SpO2: 98% Weight: 01/27/2017 Blood Pressure 1: 110/72 Code: [...] 1: 128/78 Code: 8480-6 BMI: 33.3 Code: 77926-2 Heart Rate 1: 72 bpm Height: 5'3" SpO2: 97% Weight: 188 lbs 01/10/2016 Blood Pressure 1: 132/76 Code: 8480-6 BMI: 33.1 Code: 01670-4 Heart Rate 1: 72 bpm Height: 5'3" SpO2: 97% Weight: 187 lbs 12/25/2015 Blood Pressure 1: 154/82 Code: 8480-6 BMI: 33.1 Code: 90040-3 Heart Rate 1: 72 bpm Height: 5'3" SpO2: 97% Weight: 187 lbs 10/11/2015 Blood Pressure 1: 110/62 Code: 8480-6 BMI: 34.7 Code: 26572-8 Heart Rate 1: 70 bpm Height: 5'3" SpO2: 93% Weight: 196 lbs 08/24/2015 Blood Pressure 1: 132/62 Code: 8480-6 BMI: 35.3 Code: 90175-7 Heart Rate 1: 62 bpm Height: 5'3" SpO2: 93% Weight: 199 lbs 08/20/2015 Blood Pressure 1: 140/68 Code: 8480-6 BMI: 35.3 Code: 79735-7 Heart Rate 1: 74 bpm Height: 5'3" SpO2: 96% Weight: 199 lbs 12/28/2014 Blood Pressure 1: 130/72 Code: 8480-6 BMI: 33.1 Code: 61675-3 Heart Rate 1: 60 bpm Height: 5'3" SpO2: 97% Weight: 187 lbs 10/31/2014 Blood Pressure 1: 118/72 Code: 8480-6 BMI: 31.2 Code: 18883-2 Heart Rate 1: 58 bpm Height: 5'3" SpO2: 98% Weight: 176 lbs 10/02/2014 Blood Pressure 1: 138/74 Code: 8480-6 BMI: 30.6 Code: 08089-7 Heart Rate 1: 72 bpm Height: 5'3" Weight: 173 lbs 09/21/2014 Blood Pressure 1: 138/72 Code: 8480-6 BMI: 30.5 Code: 19315-0 Heart Rate 1: 60 bpm Height: 5'3" SpO2: 96% Weight: 172 lbs Functional Status No Functional Status data History of Present Illness Symptom Name Status Resu lt Effective Date Notes depression Quality acute 04/21/2017 None depression Onset [...] diarrhea Pertinent Findings Denies fever 04/21/2017 None rash Quality chronic 01/27/2017 None rash [...] daily 12/25/2015 None Hospital Follow Up _ [facility] er: diverticulitis 10/11/2015 None Hospital Follow Up [...] Loca tion Codes Date EST. PATIENT, LEVEL IV Diagnosis: Generalized anxiety disorder[ICD10: F41.1] Diagnosis: Major depressive disorder, single episode, moderate[ICD10: F32.1] Diagnosis: Diarrhea, unspecified[ICD10: R19.7] Rox Alvarez MD, [facility] CPT-4: 59182 04/21/2017 ([id number]) 80633 EST. P ATIENT, LEVEL IV Diagnosis: Essential (primary) hypertension[ICD10: I10] Diagnosis: Nausea[ICD10: R11.0] Diagnosis: Other fecal abnormalities[ICD10: R19.5] Diagnosis: Tobacco use[ICD10: Z72.0] Selena Alvarez MD, [facility] CPT-4: 90572 01/27/2017 ([id number]) 01484 EST. P ATIENT, LEVEL III Diagnosis: Essential (primary) hypertension[ICD10: I10] Diagnosis: Chronic obstructive pulmonary disease, unspecified[ICD10: J44.9] Diagnosis: Rash and other nonspecific skin eruption[ICD10: R21] Selena Alvarez MD, [facility] CPT-4: 02943 11/25/2016 ([id number]) 78027 EST. P ATIENT, LEVEL III Diagnosis: Other sites of candidiasis[ICD10: B37.89] Selena Alvarez MD, C CPT-4: 17014 10/15/2016 ([id number]) 13394 EST. P ATIENT, LEVEL IV Diagnosis: Essential (primary) hypertension[ICD10: I10] Diagnosis: Urinary tract infection, site not specified[ICD10: N39.0] Diagnosis: Localized edema[ICD10: R60.0] Selena Alvarez MD, [facility] CPT-4: 47299 09/17/2016 [id number] EST. 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 PATIENT, LEVEL III Diagnosis: Other specified bacterial intestinal infections[ICD10: A04.8] Rox Alvarez MD [facility] CPT-4: 42182 04/16/2016 26955 EST. PATIENT, LEVEL II Diagnosis: Pain in right foot[ICD10: M79.671] Rox Alvarez MD [facility] CPT-4: 75216 01/21/2016 84478 EST. PATIENT, LEVEL III Diagnosis: Encounter for therapeutic drug level monitoring[ICD10: Z51.81] Diagnosis: Rash and other nonspecific skin eruption[ICD10: R21] Rox Alvarez MD, [facility] CPT-4: 14848 01/10/2016 24517 EST. PATIENT, LEVEL III Diagnosis: Rash and other nonspecific skin eruption[ICD10: R21] Rox Alvarez MD [facility] CPT-4: 84408 01/07/2016 ([id number]) Miscellaneou s no charge Diagnosis: Cutaneous abscess of left axilla[ICD10: L02.412] Rox Alvarez MD [facility] CPT-4: 34597 01/02/2016 ([id number]) Miscellaneou s no charge Diagnosis: Cutaneous abscess of left axilla[ICD10: L02.412] Rox Alvarez MD, [facility] CPT-4: 00971 01/01/2016 ([id number]) Miscellaneou s no charge Diagnosis: Cutaneous abscess of left axilla[ICD10: L02.412] Rox Alvarez MD, [facility] CPT-4: 69883 12/31/2015 ([id number]) Patient adm itted to the hospital from clinic (NO CHARGE) Diagnosis: Cutaneous abscess of left axilla[ICD10: L02.412] Rox Alvarez MD, [facility] CPT-4: 14204K 12/25/2015 37239 EST. PATIENT, LEVEL III Diagnosis: Encounter for follow-up examination after completed treatment for conditions other than malignant neoplasm[ICD10: Z09] Diagnosis: Diverticulitis of intestine, part unspecified, without perforation or abscess with bleeding[ICD10: K57.93] Diagnosis: Cellulitis of left toe[ICD10: L03.032] Diagnosis: Other obesity due to excess calories[ICD10: E66.09] Diagnosis: Other intermission coordinator (current) drug therapy[ICD10: Z79.899] Rox Alvarez MD, [facility] CPT-4: 52948 10/11/2015 ([id number]) Miscellaneou s no charge Diagnosis: Encounter for therapeutic drug level monitoring[ICD10: Z51.81] Diagnosis: Other acute osteomyelitis, left ankle and foot[ICD10: M86.172] Rox Alvarez MD, [facility] CPT-4: 39755 08/24/2015 84005 EST. PATIENT, LEVEL IV Diagnosis: Cellulitis of left toe[ICD10: L03.032] Rox Alvarez MD, [facility] CPT-4: 08546 08/20/2015 43025 EST. PATIENT, LEVEL III Diagnosis: Essential (primary) hypertension[ICD10: I10] Diagnosis: Peripheral vascular disease, unspecified[ICD10: I73.9] Diagnosis: Dermatitis, unspecified[ICD10: L30.9] Rox Alvarez MD, [facility] CPT- 4: 21366 12/28/2014 ([id number]) [address] Diagnosis: ESSENTIAL HYPERTENSION[ICD9: 401.9] Diagnosis: PAD (peripheral artery disease)[ICD9: 443.9] Diagnosis: Anticoagulated on Coumadin[ICD9: V58.83] Emy Alvarez MD, [facility] CPT-4: 98484 10/31/2014 ([id number]) 85492 EST. P ATIENT, LEVEL III Diagnosis: PAD (peripheral artery disease)[ICD9: 443.9] Diagnosis: Anticoagulated on Coumadin[ICD9: V58.83] Diagnosis: SCLERITIS[ICD9: 379.00] Diagnosis: ESSENTIAL HYPERTENSION[ICD9: 401.9] [facility] CPT- 4: 15540 10/02/2014 ([id number]) OFFICE [facility] - LEVEL 4 Diagnosis: GOUT[ICD9: 274.9] Diagnosis: COPD (chronic obstructive pulmonary disease)[ICD9: 496] Diagnosis: PAD (peripheral artery disease)[ICD9: 443.9] Diagnosis: ESSENTIAL HYPERTENSION[ICD9: 401.9] [facility] CPT- 4: 73822 09/21/2014 Plan of Care Planned Activity Notes C odes Status Date Visit Plan: Chronic Depression and anxiety - [...] of stomach upset or stomach pain. 04/21/2017 Patient Education: Patient Medication Summary Completed 04/21/2017 Appointment: Rox Luciano WPtel: [phone] [id number] (30 min) Complex 04/07/2017 Appointment: [id number] ([facility] Moderate 02/26/2017 Visit Plan: Hypertension [...] improving. 01/27/2017 Appointment: [id number] ([facility] min) Moderate 01/27/2017 Patient Education: Patient [...] nystatin 11/25/2016 Appointment: Selena Alvarez WPtel: [phone] [facility] (15 min) Moderate 11/25/2016 Appointment: Selena Alvarez WPtel: [phone] [facility] (15 min) Moderate 11/25/2016 Patient Education: Patient [...] over-medication. 10/15/2016 Appointment[id number] ([facility]) Moderate 10/15/2016 Patient Education: Patient Medication Summary Completed 10/15/2016 Patient Education: Smoking and Tobacco Addiction Completed 10/15/2016 [id number] [facility] Complex 09/18/2016 Visit Plan: [...] mobility evaluation. 08/14/2016 Appointment: Rox Luciano WPtel: [address] [place], [place] [id number] (30 min) Complex 08/14/2016 Patient Education: Patient [...] pain. 04/16/2016 App[facility]ment[id number] ([facility] min) Moderate 04/16/2016 Patient Education: Patient Medication Summary Completed 04/16/2016 Patient Education: Smoking and Tobacco Addiction Completed 04/16/2016 Referral: Dr Arboleda Referral Completed 02/14/2016 Care Plan: Referral Order SNOMED-CT : [id number] Pending 01/29/2016 Visit Plan: Right foot pain [...] warmth, discharge. 01/10/2016 Appointment: Rox Luciano WPtel: [address] [place], [place] [id number] [place] (30 min) Complex 01/10/2016 Patient Education: [...] antibiotics and further I&D. 12/25/2015 Appointment: Emy Westborok WPtel: [address] [place], [place] [phone] (15 min) Moderate 12/25/2015 Patient Education: Patient [...] care management. 10/11/2015 Appointment: Rox Luciano WPtel: [id number] (30 min) Complex 10/11/2015 Patient Education: Patient Medication Summary Completed 10/11/2015 Patient Education: Smoking and Tobacco Addiction Completed 10/11/2015 Patient Education: Obesity Completed 10/11/2015 Referral: Gavino Navarro they are g oing to call if they get him in before if not we will call Dr shook Initiated 09/27/2015 Appointment: Emy Westbrook WPtel: [address] [place], [place] [phone] (15 min) Moderate 08/24/2015 Patient Education: Patient Medication Summary Completed 08/24/2015 Patient Education: Smoking and Tobacco Addiction Completed 08/24/2015 Patient Education: Patient Medication Summary Completed 08/23/2015 Appointment: Emy Westbrook WPtel: [address] [place], [place] [phone] (30 min) Complex 08/22/2015 Referral: [facility] WPtel: [address] [facility] Referral Initiated 08/22/2015 Visit Plan: Pt on [...] Completed 12/28/2014 Appointment: Sel[phone] [id number] Follow up 12/20/2014 Visit Plan: Hypertension - [...] 09/21/2014 Care Plan: Referral Order SNOMED-CT : [id number] Ordered 09/21/2014 Appointment: Sel[id number] [place] ([place] New Patient 09/20/2014 Referral: Martinez Wren WPtel: [phone] [id number] [place] Referral Initiated Referral: Gavino Navarro Referral Initiated Referral: [facility] WPtel: [address] [facility] Referral Initiated Referral: Dr Arboleda [...] with wound care management. probiotics - culture [facility] . Gastroenteritis - discussed need to [...]
[2019-08-20 18:41] LABS: ALLENS TEST YES-POS; INSPIRED O2 3L; PATIENT TEMP 101.4; VENTILATOR NO
--- OUTSIDE RECORDS SUMMARY | 2019-08-20 18:41 | XMS REPORT | CCD ---
Author Author Bony Alvarez Organization Selena Alvarez MD, [facility] Address [address] [place] [address] Phone Care Team Providers Care Disaster Recovery Manager Name Role Phone PP Unavailable CCM Unavailable Summary Purpose Interface Exchange Insurance Providers Payer name Policy type / Coverage type Covered libertarian ID Effective Begin Date Effective End Date WPS Medicare Part B 51 [id number] Unknown [employer] - [id number] Unknown Family history Father Diagnosis Age At Onset Hyperlipidemia Unknown Coronary Artery Disease Unknown Stroke Unknown Cancer Unknown Congestive heart failure Unknown Mother Diagnosis Age At Onset Hypertension Unknown kidney disease Unknown Cancer Unknown Stroke Unknown Hyperlipidemia Unknown Coronary Artery Disease Unknown Congestive heart failure Unknown Social History Social History Element Codes Description Effective Dates Tobacco history SNOMED CT: 15736246 Current some days smoker 09/21/2014 Allergies, Adverse [...] V67.59 ICD-10: Z09 10/10/2015 Active Other terminal gauger (cur rent) drug therapy ICD-9: [...] 7.5 mg-a cetaminophen 325 mg tablet RxNorm: 062842 1 Tablet(s) PO QID as needed 04/21/2017 05/20/2017 Active hyoscyamine 0.125 mg sublingual tablet RxNorm: 7481072 1 Tablet(s) SL TID a s needed 04/21/2017 04/25/2017 Ac tive Lexapro 10 mg tablet RxNorm: 828317 1 Tablet(s) PO QHS 04/21/2017 07/19/2017 Active Flagyl 500 mg tablet RxNorm: 459398 1 Tablet(s) PO TID 04/07/2017 04/16/2017 Inactive Lexapro 10 mg tablet RxNorm: 308203 1 Tablet(s) PO QHS 04/07/2017 04/20/2017 Inactive hydrocodone 7.5 mg-a cetaminophen 325 mg tablet RxNorm: 387933 1 Tablet(s) PO QID as needed 03/24/2017 04/20/2017 Inactive allopurinol 100 mg t ablet RxNorm: 644906 TAKE ONE TABLET BY [facility] DAILY 03/10/2017 03/04/2018 Ac tive hydrocodone 7.5 mg-a cetaminophen 325 mg tablet RxNorm: 876306 1 Tablet(s) PO QID as needed 02/11/2017 03/12/2017 Inactive gabapentin 300 mg ca psule RxNorm: 105462 TAKE ONE CAPSULE BY [facility] THREE TIMES A DAY 02/02/2017 07/01/2017 Ac tive Zofran ODT 4 mg disi ntegrating tablet RxNorm: 259648 1 Tablet(s) PO QID as needed nausea and vomitting 01/27/2017 No Stop Date Active hydrocodone 7.5 mg-a cetaminophen 325 mg tablet RxNorm: 682294 1 Tablet(s) PO QID as needed 01/13/2017 02/10/2017 Inactive potassium chloride E R 20 mEq tablet,extended release RxNorm: 806029 TAKE ONE TABLET BY MOUTH DAILY WHEN TAKING FUROSEMIDE NEEDED 01/12/2017 07/10/2017 Active furosemide 40 mg tablet RxNorm: 967683 TAKE ONE TABLET BY MOUTH DAILY NEEDED FOR SWELLING 01/12/2017 07/10/2017 Active promethazine 25 mg t ablet RxNorm: 848184 TAKE ONE TABLET BY [facility] THREE TIMES A DAY NEEDED FOR NAUSEA AND VOMITING 01/12/2017 01/31/2017 Inactive promethazine 25 mg t ablet RxNorm: 808734 1 Tablet(s) PO TID as needed nausea and vomitting 01/06/2017 01/11/2017 Inactive Lomotil 2.5 mg-0.025 mg tablet RxNorm: 9607800 1-2 Tablet(s) PO BID as needed diarrhea 01/06/2017 01/05/2017 Inactive Lomotil 2.5 mg-0.025 mg tablet RxNorm: 4195363 1-2 Tablet(s) PO BID as needed diarrhea 01/06/2017 01/07/2017 Inactive Pepcid 20 mg tablet RxNorm: 577075 1 Tablet(s) PO BID 12/19/2016 06/16/2017 Active Pepcid 20 mg tablet RxNorm: 777839 1 Tablet(s) PO BID 12/16/2016 12/18/2016 Inactive hydrocodone 7.5 mg-a cetaminophen 325 mg tablet RxNorm: 171125 1 Tablet(s) PO QID as needed 12/16/2016 01/12/2017 Inactive hydrocodone 7.5 mg-a cetaminophen 325 mg tablet RxNorm: 593794 1 Tablet(s) PO QID as needed 11/18/2016 12/15/2016 Inactive allopurinol 100 mg t ablet RxNorm: 724818 TAKE ONE TABLET BY [facility] DAILY 10/29/2016 02/25/2017 In active hydrocodone 7.5 mg-a cetaminophen 325 mg tablet RxNorm: 017324 1 Tablet(s) PO QID as needed 10/15/2016 11/13/2016 Inactive nystatin 100,000 uni t/gram topical cream RxNorm: 148443 1 Gram(s) TOP QID 10/15/2016 11/25/2016 In active nystatin 100,000 uni t/gram topical powder RxNorm: 146516 1 Gram(s) TOP TID TO GROIN OR AFFECTED AREA 10/14/2016 No Stop Date Active hydrocodone 7.5 mg-a cetaminophen 325 mg tablet RxNorm: 755149 1 Tablet(s) PO QID as needed 09/17/2016 10/14/2016 Inactive furosemide 40 mg tablet RxNorm: 409739 1 Tablet(s) PO daily as needed swelling 09/17/2016 01/11/2017 In active potassium chloride E R 20 mEq tablet,extended release RxNorm: 020745 1 Tablet(s) PO daily as needed take when taking a lasix pill 09/17/2016 01/11/2017 Inactive Levaquin 500 mg tablet RxNorm: 904849 1 Tablet(s) PO daily 09/17/2016 09/21/2016 Inactive hydrocodone 7.5 mg-a cetaminophen 325 mg tablet RxNorm: 695796 1 Tablet(s) PO QID as needed 08/14/2016 09/12/2016 Inactive cyclobenzaprine 5 mg tablet RxNorm: 594570 1 Tablet(s) PO TID as needed 07/25/2016 07/29/2016 In active cyclobenzaprine 5 mg tablet RxNorm: 746081 1 Tablet(s) PO TID as needed 07/25/2016 07/24/2016 In active hydrocodone 7.5 mg-a cetaminophen 325 mg tablet RxNorm: 670068 1 Tablet(s) PO QID as needed 07/21/2016 08/13/2016 Inactive warfarin 1 mg tablet RxNorm: 483536 TAKE ONE TABLET BY MOUTH EVERY EVENING 06/26/2016 08/04/2016 In active hydrocodone 7.5 mg-a cetaminophen 325 mg tablet RxNorm: 901073 1 Tablet(s) PO QID as needed 06/24/2016 07/20/2016 Inactive hydrocodone 5 mg-yanira taminophen 325 mg tablet RxNorm: 104597 1 Tablet(s) PO Q6 as needed for pain 06/09/2016 06/10/2016 Inactive warfarin 1 mg tablet RxNorm: 290283 TAKE ONE TABLET BY MOUTH EVERY EVENING 06/02/2016 06/21/2016 In active allopurinol 100 mg t ablet RxNorm: 620468 TAKE ONE TABLET BY [facility] DAILY 05/21/2016 10/17/2016 In active hydrocodone 7.5 mg-a cetaminophen 325 mg tablet RxNorm: 889686 1 Tablet(s) PO QID as needed 05/09/2016 06/07/2016 Inactive gabapentin 300 mg ca psule RxNorm: 229405 Capsule(s) TAKE ONE C APSULE BY MOUTH THREE TIMES A DAY 04/25/2016 10/21/2016 Inactive promethazine 25 mg t ablet RxNorm: 766265 TAKE ONE TABLET BY [facility] THREE TIMES A DAY NEEDED 2016 05/01/2016 Inactive warfarin 1 mg tablet RxNorm: 324114 TAKE ONE TABLET BY MOUTH EVERY EVENING 2016 05/31/2016 In active promethazine 25 mg t ablet RxNorm: 523733 1 Tablet(s) PO TID as needed 04/16/2016 04/21/2016 In active warfarin 1 mg tablet RxNorm: 177705 TAKE ONE TABLET BY MOUTH EVERY EVENING 02/13/2016 04/12/2016 In active magnesium oxide 400 mg tablet RxNorm: 217436 TAKE ONE TABLET BY [facility] TWICE A DAY 02/07/2016 01/01/2017 In active hydrocodone 5 mg-yanira taminophen 325 mg tablet RxNorm: 655780 1 Tablet(s) PO Q6 as needed for pain 01/21/2016 02/19/2016 Inactive warfarin 1 mg tablet RxNorm: 165947 TAKE ONE TABLET BY MOUTH EVERY EVENING 01/17/2016 02/05/2016 In active gabapentin 300 mg ca psule RxNorm: 577870 Capsule(s) TAKE ONE C APSULE BY MOUTH THREE TIMES A DAY 01/11/2016 04/24/2016 Inactive prednisone 10 mg tablet RxNorm: 497794 Tablet(s) PO UD 01/10/2016 No Stop Date Active 60mg x2 days, then 50mg x2 days, then 40mg x2 days, 30mg x2 days, 20mg x2 days, 10mg x2days, 5mg every other day x 2 doses [facility] Rx[facility]: 1669359 Milliliter(s) Inj 01/07/2016 01/07/2016 In active warfarin 1 mg tablet RxNorm: 852846 TAKE ONE TABLET BY MOUTH EVERY EVENING 01/01/2016 01/16/2016 In active hydrocodone 5 mg-yanira taminophen 325 mg tablet RxNorm: 410712 1 Tablet(s) PO Q6 as needed for pain 01/01/2016 01/15/2016 Inactive gabapentin 300 mg ca psule RxNorm: 478985 TAKE ONE CAPSULE BY [facility] THREE TIMES A DAY 12/12/2015 01/10/2016 Inactive warfarin 5 mg tablet RxNorm: 244703 1 Tablet(s) PO daily 12/05/2015 No Stop Date Active warfarin 1 mg tablet RxNorm: 941350 TAKE ONE TABLET BY MOUTH EVERY EVENING 11/13/2015 12/22/2015 In active hydrocodone 5 mg-yanira taminophen 325 mg tablet RxNorm: 258303 1 Tablet(s) PO Q6 as needed for pain 10/26/2015 11/09/2015 Inactive allopurinol 100 mg t ablet RxNorm: 259381 1 Tablet(s) PO daily TAKE ONE TABLET BY MOUTH DAILY 10/18/2015 04/14/2016 Inactive hydrocodone 5 mg-yanira taminophen 325 mg tablet RxNorm: 785182 1 Tablet(s) PO Q6 as needed for pain 09/26/2015 10/10/2015 Inactive gabapentin 300 mg ca psule RxNorm: 928107 TAKE ONE CAPSULE BY [facility] THREE TIMES A DAY 09/14/2015 12/11/2015 Inactive warfarin 1 mg tablet RxNorm: 317383 1 Tablet(s) PO QPM 09/14/2015 11/12/2015 Inactive hydrocodone 5 mg-yanira taminophen 325 mg tablet RxNorm: 992460 1 Tablet(s) PO Q6 as needed for pain 09/12/2015 09/25/2015 Inactive hydrocodone 5 mg-yanira taminophen 325 mg tablet RxNorm: 821559 1 Tablet(s) PO Q6 as needed for pain 08/22/2015 09/05/2015 Inactive Bactrim DS 800 mg-16 0 mg tablet RxNorm: 885425 1 Tablet(s) PO BID 08/20/2015 09/02/2015 Inactive magnesium oxide 400 mg tablet RxNorm: 481265 TAKE ONE TABLET BY [facility] TWICE A DAY 01/20/2015 01/14/2016 In active gabapentin 300 mg ca psule RxNorm: 545670 TAKE ONE CAPSULE BY [facility] THREE TIMES A DAY 01/20/2015 05/19/2015 Inactive magnesium oxide 400 mg tablet RxNorm: 681262 1 Tablet(s) PO BID 01/17/2015 05/16/2015 Inactive gabapentin 300 mg ca psule RxNorm: 116531 1 Capsule(s) PO TID 01/17/2015 05/16/2015 Inactive allopurinol 100 mg t ablet RxNorm: 490074 TAKE ONE TABLET BY [facility] DAILY 10/18/2014 10/12/2015 In active Kenalog 40 mg/mL [facility] for injection RxNorm: 0892515 1 Milliliter(s) Inj 09/21/2014 09/21/2014 In active allopurinol 100 mg t ablet RxNorm: 270612 1 Tablet(s) PO daily 09/21/2014 10/17/2014 Inactive gabapentin 300 mg ca psule RxNorm: 319965 1 Capsule(s) PO TID 09/12/2014 01/09/2015 Inactive gabapentin 300 mg ca psule RxNorm: 258783 1 Capsule(s) PO TID 09/12/2014 09/11/2014 Inactive magnesium oxide 400 mg tablet RxNorm: 180083 1 Tablet(s) PO BID 09/12/2014 01/09/2015 Inactive magnesium oxide 400 mg tablet RxNorm: 172823 1 Tablet(s) PO BID 09/12/2014 09/11/2014 Inactive lisinopril 5 mg tablet RxNorm: 029671 1 Tablet(s) PO daily No Start Date Active atorvastatin oral RxNorm: 24277 oral No Start Date Active minocycline 50 mg ca psule RxNorm: 302107 1 Capsule(s) PO BID o rdered by Dr. Saravia No Start Date Active Coreg 6.25 mg tablet RxNorm: 928531 1 Tablet(s) PO BID No Start Date Active Combivent Respimat 2 0 mcg-100 mcg/actuation solution for inhalation RxNorm: 8550230 1 Puff(s) INH as needed No Start Date Active Ventolin Refill 90 m cg/actuation aerosol inhaler RxNorm: 502425 2 INH as needed No Start Date Active Centrum Silver Women oral RxNorm: [address] art Date Active aspirin 81 mg capsul e,delayed release RxNorm: 999417 1 Capsule(s) PO daily No Start Date Active nystatin 100,000 uni t/gram topical powder RxNorm: 056259 1 Gram(s) TOP TID No Start Date 10/13/2016 Inactive warfarin 1 mg tablet RxNorm: 203336 oral No Start Date 09/13/2015 Inactive Pepcid 20 mg tablet RxNorm: 185471 1 Tablet(s) PO BID No Start Date 12/15/2016 Inactive Protonix 40 mg table t,delayed release RxNorm: 459809 1 Tablet(s) PO daily No Start Date 09/16/2016 Inactive warfarin 5 mg tablet RxNorm: 393536 1 Tablet(s) PO daily 1.5 tabs on Thu No Start Date 12/04/2015 Inactive furosemide 40 mg tablet RxNorm: 824619 1 Tablet(s) PO daily No Start Date 09/16/2016 Inactive Medication Administered Medication Codes Instruc tions Start Date Status Kenalog 40 mg/mL suspension for injection RxNorm: 2947360 Milliliter 01/07/2016 No longer Active Kenalog 40 mg/mL suspension for injection RxNorm: 4842339 1Milliliter 09/21/2014 N o longer Active Immunizations [...] ICD-10: Z09 ICD-9: V67.59 10/11/2015 Other terminal gauger (current) drug therapy ICD-10: Z79.899 [...] Shiga Toxin 1 & 2 Eia Stool 145159 SHIGA TOXIN 1: NEGATIVE 04/12/2017 Shiga Toxin 1 & 2 Eia Stool 676698 SHIGA TOXIN 2: NEGATIVE 04/12/2017 Culture Stool [id number] STO OL CULTURE SEE NOTES 04/12/2017 Clostridium Diff Tox A/B Ykx339 Cdiff Negative 04/09/2017 Pt Oty7337 PT 64.8 seconds 01/10/2016 Pt Dmk7395 INR 8.6 01/10/2016 Pt Wok6262 Low Intensity - 1.5-2.0 01/10/2016 Pt Njz2614 Mod intensity - 2.0-3.0 01/10/2016 Pt Xwz7780 Hi intensity - 3.0-4.0 01/10/2016 Pt Zsa7952 PT 32.1 seconds 11/01/2014 Pt Dia6867 INR 3.2 11/01/2014 Pt Gnz2847 Low Intensity - 1.5-2.0 11/01/2014 Pt Aro4025 Mod intensity - 2.0-3.0 11/01/2014 Pt Tvt9174 Hi intensity - 3.0-4.0 11/01/2014 Pt Zax0682 PT 30.2 seconds 10/03/2014 Pt Bak0748 INR 3.0 10/03/2014 Pt Qsy4439 Low Intensity - 1.5-2.0 10/03/2014 Pt Wry2295 Mod intensity - 2.0-3.0 10/03/2014 Pt Hcw7679 Hi intensity - 3.0-4.0 10/03/2014 D-Dimer D-DIMER 475 NG/ML 09/25/2014 D-Dimer COMMENT 09/25/2014 Magnesium Ord90 Mag 1.1 Result Verified By Repeat Analysis mg/dL 09/22/2014 Pt Ypq2576 PT 32.0 seconds 09/22/2014 Pt Cqv7950 INR 3.2 09/22/2014 Pt Ivy6255 Low Intensity - 1.5-2.0 09/22/2014 Pt Hpq7837 Mod intensity - 2.0-3.0 09/22/2014 Pt Aqv0724 Hi intensity - 3.0-4.0 09/22/2014 Comp Metabolic Ibb877 NA 137 mEq/L 09/22/2014 Comp Metabolic Wgx206 K 4.2 mEq/L 09/22/2014 Comp Metabolic Jsu482 CL 102 mEq/L 09/22/2014 Comp Metabolic Add201 CO2 25.0 mEq/L 09/22/2014 Comp Metabolic Jyk859 AN ION GAP 14 09/22/2014 Comp Metabolic Yui925 GL UCOSE 94 mg/dL 09/22/2014 Comp Metabolic Gek377 Cr eat 0.8 mg/dL 09/22/2014 Comp Metabolic Xpa136 eG FR 102 ml/min/1.73m2 09/06 Comp Metabolic Qks750 BUN 15 mg/dL 09/22/2014 Comp Metabolic Jor107 B/ C Ratio 18.8 Ratio 09/22/2014 Comp Metabolic Ulr777 CA LCIUM 9.4 mg/dL 09/22/2014 Comp Metabolic Utd898 AL K PHOS 65 U/L 09/22/2014 Comp Metabolic Xal974 T(SGOT) 15 U/L 09/22/2014 Comp Metabolic Opb026 AL T(SGPT) 8 U/L 09/22/2014 Comp Metabolic Fer384 BI LI T 0.4 mg/dL 09/22/2014 Comp Metabolic Sgl060 AL BUMIN 4.0 g/dL 09/22/2014 Comp Metabolic Nzm891 TP RO 6.8 g/dL 09/22/2014 Comp Metabolic Gxm476 GL OB 2.8 g/dL 09/22/2014 Comp Metabolic Gxc282 A/ G Ratio 1.4 Ratio 09/22/2014 Comp Metabolic Umn240 Os mo 274 mOsmo 09/22/2014 C-Reactive Protein [...] than left Procedures Procedure Codes Date TOBACCO-USE ENTRY LEVEL JAVA DEVELOPER 3-[address]: 598311889 CPT-4: G0436 01/27/2017 TOBACCO-USE ENTRY LEVEL JAVA DEVELOPER 3-[address]: 433483151 CPT-4: G0436 11/25/2016 TOBACCO-USE ENTRY LEVEL JAVA DEVELOPER 3-[address]: 313219228 CPT-4: G0436 10/15/2016 TOBACCO-USE ENTRY LEVEL JAVA DEVELOPER 3-[address]: 362293327 CPT-4: G0436 09/17/2016 THER/PROPH/DIAG INJ SC/IM CPT-4: 68997 01/07/2016 TRIAMCINOLONE ACET I [place] NOS CPT-4: J3301 01/07/2016 TRIAMCINOLONE ACET I [place] NOS CPT-4: J3301 09/21/2014 THER/PROPH/DIAG INJ SC/IM CPT-4: 95400 09/21/2014 Vital Signs Date Vital 04/21/2017 Blood [...] 1: 128/78 Code: 8480-6 BMI: 33.3 Code: 08202-6 Heart Rate 1: 72 bpm Height: 5'3" SpO2: 97% Weight: 188 lbs 01/10/2016 Blood Pressure 1: 132/76 Code: 8480-6 BMI: 33.1 Code: 34332-2 Heart Rate 1: 72 bpm Height: 5'3" SpO2: 97% Weight: 187 lbs 12/25/2015 Blood Pressure 1: 154/82 Code: 8480-6 BMI: 33.1 Code: 01871-6 Heart Rate 1: 72 bpm Height: 5'3" SpO2: 97% Weight: 187 lbs 10/11/2015 Blood Pressure 1: 110/62 Code: 8480-6 BMI: 34.7 Code: 54758-3 Heart Rate 1: 70 bpm Height: 5'3" SpO2: 93% Weight: 196 lbs 08/24/2015 Blood Pressure 1: 132/62 Code: 8480-6 BMI: 35.3 Code: 09791-7 Heart Rate 1: 62 bpm Height: 5'3" SpO2: 93% Weight: 199 lbs 08/20/2015 Blood Pressure 1: 140/68 Code: 8480-6 BMI: 35.3 Code: 90474-8 Heart Rate 1: 74 bpm Height: 5'3" SpO2: 96% Weight: 199 lbs 12/28/2014 Blood Pressure 1: 130/72 Code: 8480-6 BMI: 33.1 Code: 72981-5 Heart Rate 1: 60 bpm Height: 5'3" SpO2: 97% Weight: 187 lbs 10/31/2014 Blood Pressure 1: 118/72 Code: 8480-6 BMI: 31.2 Code: 46423-0 Heart Rate 1: 58 bpm Height: 5'3" SpO2: 98% Weight: 176 lbs 10/02/2014 Blood Pressure 1: 138/74 Code: 8480-6 BMI: 30.6 Code: 86333-7 Heart Rate 1: 72 bpm Height: 5'3" Weight: 173 lbs 09/21/2014 Blood Pressure 1: 138/72 Code: 8480-6 BMI: 30.5 Code: 84423-7 Heart Rate 1: 60 bpm Height: 5'3" [...] daily 12/25/2015 None Hospital Follow Up _ [facility] er: diverticulitis 10/11/2015 None Hospital Follow [...] Diagnosis: Diarrhea, unspecified[ICD10: R19.7] Rox Alvarez MD, [facility] CPT-4: 20765 04/21/2017 ([id number]) 64725 EST. P ATIENT, LEVEL IV Diagnosis: Essential (primary) hypertension[ICD10: I10] Diagnosis: Nausea[ICD10: R11.0] Diagnosis: Other fecal abnormalities[ICD10: R19.5] Diagnosis: Tobacco use[ICD10: Z72.0] Selena Alvarez MD, [facility] CPT-4: 41592 01/27/2017 ([id number]) 95325 EST. P ATIENT, LEVEL III Diagnosis: Essential (primary) hypertension[ICD10: I10] Diagnosis: Chronic obstructive pulmonary disease, unspecified[ICD10: J44.9] Diagnosis: Rash and other nonspecific skin eruption[ICD10: R21] Selena Alvarez MD, [facility] CPT-4: 89678 11/25/2016 ([id number]) 08959 EST. P ATIENT, LEVEL III Diagnosis: Other sites of candidiasis[ICD10: B37.89] Selena Alvarez MD, C CPT-4: 74302 10/15/2016 ([id number]) 96615 EST. P ATIENT, LEVEL IV Diagnosis: Essential (primary) hypertension[ICD10: I10] Diagnosis: Urinary tract infection, site not specified[ICD10: N39.0] Diagnosis: Localized edema[ICD10: R60.0] Selena Alvarez MD, [facility] CPT-4: 53226 09/17/2016 04394 EST. 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 PATIENT, LEVEL III Diagnosis: Other specified bacterial intestinal infections[ICD10: A04.8] Rox Alvarez MD [facility] CPT-4: 61706 04/16/2016 30790 EST. PATIENT, LEVEL II Diagnosis: Pain in right foot[ICD10: M79.671] Rox Alvarez MD [facility] CPT-4: 26218 01/21/2016 26258 EST. PATIENT, LEVEL III Diagnosis: Encounter for therapeutic drug level monitoring[ICD10: Z51.81] Diagnosis: Rash and other nonspecific skin eruption[ICD10: R21] Rox Alvarez MD, [facility] CPT-4: 53282 01/10/2016 10235 EST. PATIENT, LEVEL III Diagnosis: Rash and other nonspecific skin eruption[ICD10: R21] Rox Alvarez MD [facility] CPT-4: 53031 01/07/2016 ([id number]) Miscellaneou s no charge Diagnosis: Cutaneous abscess of left axilla[ICD10: L02.412] Rox Alvarez MD [facility] CPT-4: 38545 01/02/2016 ([id number]) Miscellaneou s no charge Diagnosis: Cutaneous abscess of left axilla[ICD10: L02.412] Rox Alvarez MD, [facility] CPT-4: 48055 01/01/2016 ([id number]) Miscellaneou s no charge Diagnosis: Cutaneous abscess of left axilla[ICD10: L02.412] Rox Alvarez MD, [facility] CPT-4: 74871 12/31/2015 ([id number]) Patient adm itted to the hospital from clinic (NO CHARGE) Diagnosis: Cutaneous abscess of left axilla[ICD10: L02.412] Rox Alvarez MD, [facility] CPT-4: 59123I 12/25/2015 44096 EST. PATIENT, LEVEL III Diagnosis: Encounter for follow-up examination after completed treatment for conditions other than malignant neoplasm[ICD10: Z09] Diagnosis: Diverticulitis of intestine, part unspecified, without perforation or abscess with bleeding[ICD10: K57.93] Diagnosis: Cellulitis of left toe[ICD10: L03.032] Diagnosis: Other obesity due to excess calories[ICD10: E66.09] Diagnosis: Other terminal gauger (current) drug therapy[ICD10: Z79.899] Rox Alvarez MD, [facility] CPT-4: 27179 10/11/2015 ([id number]) Miscellaneou s no charge Diagnosis: Encounter for therapeutic drug level monitoring[ICD10: Z51.81] Diagnosis: Other acute osteomyelitis, left ankle and foot[ICD10: M86.172] Rox Alvarez MD, [facility] CPT-4: 59256 08/24/2015 51207 EST. PATIENT, LEVEL IV Diagnosis: Cellulitis of left toe[ICD10: L03.032] Rox Alvarez MD, [facility] CPT-4: 09742 08/20/2015 46175 EST. PATIENT, LEVEL III Diagnosis: Essential (primary) hypertension[ICD10: I10] Diagnosis: Peripheral vascular disease, unspecified[ICD10: I73.9] Diagnosis: Dermatitis, unspecified[ICD10: L30.9] Rox Alvarez MD, [facility] CPT- 4: 56025 12/28/2014 ([id number]) 15604 EST. [facility] Diagnosis: ESSENTIAL HYPERTENSION[ICD9: 401.9] Diagnosis: PAD (peripheral artery disease)[ICD9: 443.9] Diagnosis: Anticoagulated on Coumadin[ICD9: V58.83] Emy Alvarez MD, [facility] CPT-4: 32963 10/31/2014 ([id number]) 14856 EST. P ATIENT, LEVEL III Diagnosis: PAD (peripheral artery disease)[ICD9: 443.9] Diagnosis: Anticoagulated on Coumadin[ICD9: V58.83] Diagnosis: SCLERITIS[ICD9: 379.00] Diagnosis: ESSENTIAL HYPERTENSION[ICD9: 401.9] [facility] CPT- 4: 32910 10/02/2014 ([id number]) OFFICE [facility] - LEVEL 4 Diagnosis: GOUT[ICD9: 274.9] Diagnosis: COPD (chronic obstructive pulmonary disease)[ICD9: 496] Diagnosis: PAD (peripheral artery disease)[ICD9: 443.9] Diagnosis: ESSENTIAL HYPERTENSION[ICD9: 401.9] [facility] CPT- 4: 06762 09/21/2014 Plan of Care Planned Activity Notes [...] stomach pain. 04/21/2017 Appointment: Rox Luciano WPtel: [facility] (30 min) Complex 04/21/2017 Patient Education: Patient Medication Summary Completed 04/21/2017 Appointment: Rox Luciano WPtel: [facility] ([facility] 04/07/2017 Appointment: Selena Alvarez WPtel[facility] ([facility] min) Moderate 02/26/2017 Visit Plan: Hypertension [...] 01/27/2017 App[facility]ment[facility] [phone] [facility] (15 min) Moderate 01/27/2017 Patient Education: [...] nystatin 11/25/2016 App[facility]ment[facility] [phone] [facility] ([facility] min) Moderate 11/25/2016 App[facility]ment[facility] [phone] [facility] ([facility] min) Moderate 11/25/2016 Patient Education: [...] 10/15/2016 App[facility]ment[facility] [phone] [facility] [place] (15 min) Moderate 10/15/2016 Patient Education: Patient Medication Summary Completed 10/15/2016 Patient Education: Smoking and Tobacco Addiction Completed 10/15/2016 Appointment: [facility]ox Luc[facility] [phone] [facility] [place] (30 min) Complex 09/18/2016 Visit Plan: [...] mobility evaluation. 08/14/2016 Appointment: Rox Luciano WPtel: [address] [place], [place] [address] (30 min) [facility] 08/14/2016 Patient Education: Patient Medication Summary Completed [...] 04/16/2016 Appointment: [facility] Luc[facility] [phone] [facility] (15 min) Moderate 04/16/2016 Patient Education: Patient Medication Summary Completed 04/16/2016 Patient Education: Smoking and Tobacco Addiction Completed 04/16/2016 Referral: Dr Arboleda Referral Completed 02/14/2016 Care Plan: Referral Order SNOMED-CT : [id number] Pending 01/29/2016 Visit Plan: Right foot pain [...] discharge. 01/10/2016 Appointment: Rox Luciano [facility] [phone] [facility] [place] (30 min) Complex 01/10/2016 Patient Education: [...] further I&D. 12/25/2015 Appointment: Emy Westbrook WPtel: [phone] [place] (15 min) Moderate 12/25/2015 Patient Education: [...] care management. 10/11/2015 Appointment: Rox Luciano WPtel: [facility] (30 min) Complex 10/11/2015 Patient Education: Patient Medication Summary Completed 10/11/2015 Patient Education: Smoking and Tobacco Addiction Completed 10/11/2015 Patient Education: Obesity Completed 10/11/2015 Referral: Gavino Navarro they are g oing to call if they get him in before if not we will call Dr shook Initiated 09/27/2015 Appointment: Emy Westbrook WPtel: [phone] (15 min) Moderate 08/24/2015 Patient Education: Patient Medication Summary Completed 08/24/2015 Patient Education: Smoking and Tobacco Addiction Completed 08/24/2015 Patient Education: Patient Medication Summary Completed 08/23/2015 Appointment: Emy Westbrook WPtel: [phone] (30 min) Complex 08/22/2015 Referral: [facility] W[facility]: [address] [facility] [id number] [place] Ref[facility] Initiated 08/22/2015 Visit Plan: Pt [...] Completed 12/28/2014 Appointment: [facility] [phone] [facility] Follow up 12/20/2014 Visit Plan: Hypertension [...] 09/21/2014 Care Plan: Referral Order SNOMED-CT : [id number] Ordered 09/21/2014 Appointment: Selena Alvarez WPtel: [phone] [facility] [place] ([place]) New Patient 09/20/2014 Referral: HolgerMartinez WPtel: [phone] [facility] [place] Referral Initiated Referral: Gavino Navarro Referral Initiated Referral: [facility]el[facility] Referral Initiated Referral: Dr Arboleda Referral Completed [...] with wound care management. probiotics - culture [facility] . Gastroenteritis - discussed need [...]
[2019-08-20 18:45] LABS: ALBUMIN 3.1 GM/DL (3.2-4.5); INR 4.3 (0.8-1.4); POTASSIUM 4.6 MMOL/L (3.6-5.0); PROTHROMBIN TIME PATIENT 43.3 SEC (12.2-14.7)
[2019-08-20 18:46] LABS: CALCIUM 8.5 MG/DL (8.5-10.1)
[2019-08-20 18:47] LABS: TOTAL PROTEIN 6.4 GM/DL (6.4-8.2)
--- OUTSIDE RECORDS SUMMARY | 2019-08-20 18:47 | XMS REPORT | Continuity of Care Document ---
Author Organization Unknown Address Unknown Phone Unavailable Allergies Active Description Code Type Severity Reaction Onset Reported/Identified Relationship to Patient Clinical Status Yes morphine [id number] Drug Allergy Unknown N/A 09/01/2016 Medications There is no data. 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 01/30/2009 Ot V43.3 01/30/2009 Ot V58.61 01/30/2009 Ot V58.83 05/16/2009 Ot V43.3 05/16/2009 Ot V58.61 05/16/2009 Ot V58.83 07/19/2009 Ot V43.3 07/19/2009 Ot V58.61 07/19/2009 Ot V58.83 10/02/2009 Ot 429.9 10/02/2009 Ot 719.43 10/02/2009 Ot 729.5 10/02/2009 Ot V12.51 10/02/2009 Ot V58.61 10/02/2009 Ot V58.69 01/22/2010 Ot V58.61 01/22/2010 Ot V58.83 05/18/2010 Ot 729.5 PAIN IN LIMB 05/18/2010 Ot V12.51 HX- VENOUS THROMBOSIS EMBOLISM 05/18/2010 Ot V58.61 ANTICOAGULANTS,LT,CURRENT USE 05/18/2010 Ot V58.69 OTH MED,LT,CURRENT USE 08/31/2010 Ot 272.4 HYPE RLIPIDEMIA NEC/NOS 08/31/2010 Ot 276.8 HYPO POTASSEMIA 08/31/2010 Ot 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 08/31/2010 Ot 345.90 EPI LEPSY UNSPEC W/O MENTION INTRACTABLE 08/31/2010 Ot 401.9 HYPE RTENSION NOS 08/31/2010 Ot 414.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 OF [place] CORON 08/31/2010 Ot 414.2 PAPER STACKER CAROL ANN TOTAL OCCLUSION OF CORONARY FLORA 08/31/2010 Ot 416.8 CHR PULMON HEART DIS NEC 08/31/2010 Ot 424.0 MITR AL VALVE DISORDER 08/31/2010 Ot 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 08/31/2010 Ot 440.21 ATH EROSCL [place] ARTER EXTREM W INTERMIT 08/31/2010 Ot 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 08/31/2010 Ot V45.81 AOR TOCORONARY BYPASS 08/31/2010 Ot V58.61 ANTICOAGULANTS,LT,CURRENT USE 10/04/2010 Ot 723.1 CERV ICALGIA 01/08/2011 Ot V58.61 ANTICOAGULANTS,LT,CURRENT USE 01/08/2011 Ot V58.83 ENC OUNTER FOR THERAPEUTIC DRUG MONITORIN 09/09/2011 Ot 274.9 GOUT NOS 09/09/2011 Ot 719.02 NARINDER NT EFFUSION- UP/ARM 09/09/2011 Ot 719.42 NARINDER NT PAIN-UP/ARM 09/09/2011 Ot 719.43 NARINDER NT PAIN- FOREARM 09/09/2011 Ot V12.51 HX- VENOUS THROMBOSIS EMBOLISM 01/12/2012 Ot V58.61 ANTICOAGULANTS,LT,CURRENT USE 01/12/2012 Ot V58.83 ENC OUNTER FOR THERAPEUTIC DRUG MONITORIN 03/09/2012 Ot V58.61 ANTICOAGULANTS,LT,CURRENT USE 03/09/2012 Ot V58.83 ENC OUNTER FOR THERAPEUTIC DRUG MONITORIN 05/21/2012 Ot 443.9 GAUTAM PH VASCULAR DIS NOS 05/21/2012 Ot 729.5 PAIN IN LIMB 05/21/2012 Ot 729.81 SWE LLING OF LIMB 08/15/2012 Ot V58.61 ANTICOAGULANTS,LT,CURRENT USE 08/15/2012 Ot V58.83 ENC OUNTER FOR THERAPEUTIC DRUG MONITORIN 11/19/2012 NAA CALDWELL APRN Ot 715.35 LOC OSTEOARTH NOS-PELVIS 11/19/2012 NAA CALDWELL MEDICARE INTERVIEWER Ot 715.36 LOC OSTEOARTH NOS-L/LEG 11/19/2012 NAA CALDWELL APRN Ot 727.51 POPLITEAL SYNOVIAL CYST 11/19/2012 NAA CALDWELL MEDICARE INTERVIEWER Ot 729 .5 PAIN IN LIMB 11/29/2012 SANDNESS FABI FERRARI Ot 272.0 PURE HYPERCHOLESTEROLEM 11/29/2012 FABI CABA MD Ot 275.2 DIS MAGNESIUM METABOLISM 11/29/2012 FABI CABA MD Ot 401.9 HYPERTENSION NOS 11/29/2012 FABI CABA MD Ot 414.00 CORON ATHEROSCLER NOS TYPE VESSEL, NATIV 11/29/2012 FABI CABA MD Ot 416.8 CHR PULMON HEART DIS NEC 11/29/2012 FABI CABA MD Ot 433.10 CAROTID ARTERY OCCLUSION W O CEREBRAL IN 11/29/2012 FABI CABA MD Ot 443.9 PERIPH VASCULAR DIS NOS 11/29/2012 FABI CABA MD Ot 682.6 CELLULITIS OF LEG 11/29/2012 FABI CABA MD Ot 724.02 SPINAL STENOSIS, LUMBAR REG, W/OUT NEURO 11/29/2012 FABI CABA MD Ot 727.51 POPLITEAL SYNOVIAL CYST 11/29/2012 FABI CABA MD Ot 780.39 OTHER CONVULSIONS 11/29/2012 FABI CABA MD Ot V15.82 HISTORY OF TOBACCO USE 11/29/2012 FABI CABA MD Ot 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 11/29/2012 FABI CABA MD Ot V45.81 AORTOCORONARY BYPASS 11/29/2012 FABI CABA MD Ot V45.89 POSTSURGICAL STATES NEC 12/15/2012 MANUEL BASS MD Ot V58. 61 ANTICOAGULANTS,LT,CURRENT USE 12/15/2012 MANUEL BASS MD Ot V58. 83 ENCOUNTER FOR THERAPEUTIC DRUG MONITORIN 01/29/2013 FABI CABA MD Ot 272.4 HYPERLIPIDEMIA NEC/NOS 01/29/2013 FABI CABA MD Ot 273.8 DIS PLAS PROTEIN MET NEC 01/29/2013 FABI CABA MD Ot 274.9 GOUT NOS 01/29/2013 FABI CABA MD Ot 285.9 ANEMIA NOS 01/29/2013 FABI CABA MD Ot 355.9 MONONEURITIS NOS 01/29/2013 FABI CABA MD Ot 401.9 HYPERTENSION NOS 01/29/2013 FABI CABA MD Ot 414.00 CORON ATHEROSCLER NOS TYPE VESSEL, NATIV 01/29/2013 FABI CABA MD Ot 416.8 CHR PULMON HEART DIS NEC 01/29/2013 FABI CABA MD Ot 443.9 PERIPH VASCULAR DIS NOS 01/29/2013 FABI CABA MD Ot 496 CHR AIRWAY OBSTRUCT NEC 01/29/2013 FABI CABA MD Ot 519.11 ACUTE BRONCHOSPASM 01/29/2013 FABI CABA MD Ot 716.90 ARTHROPATHY NOS-UNSPEC 01/29/2013 FABI CABA MD Ot 786.52 PAINFUL RESPIRATION 01/29/2013 FABI CABA MD Ot 786.59 CHEST PAIN NEC 01/29/2013 FABI CABA MD Ot V15.82 HISTORY OF TOBACCO USE 01/29/2013 FABI CABA MD Ot V17.3 FAM HX-ISCHEM HEART DIS 01/29/2013 FABI CABA MD Ot 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 01/29/2013 FABI CABA MD Ot V45.81 AORTOCORONARY BYPASS 01/29/2013 FABI CABA MD Ot V58.61 ANTICOAGULANTS,LT,CURRENT USE 01/29/2013 FABI CABA MD Ot V58.66 LONG-TERM (CURRENT) USE OF ASPIRIN 06/14/2013 LENIN PINEDO DOA María Ot 784.99 OTHER SYMPTOMS INVOLVING HEAD AND NECK 06/23/2013 MANUEL BASS MD Ot 272. 0 PURE HYPERCHOLESTEROLEM 06/23/2013 MANUEL BASS MD Ot 275. 2 DIS MAGNESIUM METABOLISM 06/23/2013 MANUEL BASS MD Ot 276. 8 HYPOPOTASSEMIA 06/23/2013 MANUEL BASS MD Ot 345. 90 EPILEPSY UNSPEC W/O MENTION INTRACTABLE 06/23/2013 MANUEL BASS MD Ot 355. 9 MONONEURITIS NOS 06/23/2013 MANUEL BASS MD Ot 401. 9 HYPERTENSION NOS 06/23/2013 MANUEL BASS MD Ot 414. 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 8 CHR PULMON HEART DIS NEC 06/23/2013 MANUEL BASS MD Ot 426. 3 LEFT BB BLOCK NEC 06/23/2013 MANUEL BASS MD Ot 427. 1 PAROX VENTRIC TACHYCARD 06/23/2013 MANUEL BASS MD Ot 427. 69 PREMATURE BEATS NEC 06/23/2013 MANUEL BASS MD Ot 428. 0 CONGESTIVE HEART FAILURE NOS 06/23/2013 MANUEL BASS MD Ot 428. 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 22 ATHEROSCL [place] ARTER EXTREMITIES W/ R 06/23/2013 MANUEL BASS MD Ot 716. 90 ARTHROPATHY NOS-UNSPEC 06/23/2013 MANUEL BASS MD Ot V12. 51 HX-VENOUS THROMBOSIS EMBOLISM 06/23/2013 MANUEL BASS MD Ot V12. 61 PERSONAL HISTORY, PNEUMONIA (RECURRENT) 06/23/2013 MANUEL BASS MD Ot V15. 82 HISTORY OF TOBACCO USE 06/23/2013 MANUEL BASS MD Ot V43. 3 HEART VALVE REPLAC NEC 06/23/2013 MANUEL BASS MD Ot V45. 76 ACQRD ABSENCE OF LUNG 06/23/2013 MANUEL BASS MD Ot V45. 81 AORTOCORONARY BYPASS 06/23/2013 MANUEL BASS MD Ot V58. 61 ANTICOAGULANTS,LT,CURRENT USE 07/17/2013 MANUEL BASS MD Ot V58. 61 ANTICOAGULANTS,LT,CURRENT USE 07/17/2013 MANUEL BASS MD Ot V58. 83 ENCOUNTER FOR THERAPEUTIC DRUG MONITORIN 09/23/2013 SEBASTIÁN BINGHAM MD Ot 411.89 OTH ACUTE SUBACUTE FORMS OF ISCHEMIC H 09/23/2013 SEBASTIÁN BINGHAM MD Ot 440.20 ATHEROSCLEROSIS [place] ARTERIES EXTREMIT 09/23/2013 SEBASTIÁN BINGHAM MD Ot 729.5 PAIN IN LIMB 09/23/2013 SEBASTIÁN BINGHAM MD Ot 782.0 SKIN SENSATION DISTURB 09/23/2013 SEBASTIÁN BINGHAM MD Ot V45.81 AORTOCORONARY BYPASS 09/30/2013 SEBASTIÁN BINGHAM MD Ot 345.90 EPILEPSY UNSPEC W/O MENTION INTRACTABLE 09/30/2013 SEBASTIÁN BINGHAM MD Ot 401.9 HYPERTENSION NOS 09/30/2013 SEBASTIÁN BINGHAM MD Ot 414.00 CORON ATHEROSCLER NOS TYPE VESSEL, NATIV 09/30/2013 SEBASTIÁN BINGHAM MD Ot 428.0 CONGESTIVE HEART FAILURE NOS 09/30/2013 SEBASTIÁN BINGHAM MD Ot 440.20 ATHEROSCLEROSIS [place] ARTERIES EXTREMIT 09/30/2013 SEBASTIÁN BINGHAM MD Ot 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 61 ANTICOAGULANTS,LT,CURRENT USE 10/16/2013 MANUEL BASS MD Ot V58. 83 ENCOUNTER FOR THERAPEUTIC DRUG MONITORIN 01/19/2014 GERTRUDIS FERRARI, FABI Pisano Ot 414.00 01/19/2014 FABI CABA MD Ot 428.0 01/20/2014 MANUEL BASS MD Ot V58. 61 01/20/2014 MANUEL BASS MD Ot V58. 83 01/23/2014 MANUEL BASS MD Ot V58. 61 01/23/2014 MANUEL BASS MD Ot V58. 83 01/23/2014 MANUEL BASS MD Ot V58. 61 01/23/2014 MANUEL BASS MD Ot V58. 83 01/25/2014 MANUEL BASS MD Ot V58. 61 01/25/2014 MANUEL BASS MD Ot V58. 83 03/07/2014 MANUEL BASS MD Ot V58. 61 03/07/2014 MANUEL BASS MD Ot V58. 83 03/08/2014 MANUEL BASS MD Ot V58. 61 03/08/2014 SHELIA FERRARI, MANUEL Garnica Ot V58. 83 03/23/2014 MANUEL BASS MD Ot V58. 61 03/23/2014 SHELIA FERRARI, MANUEL Garnica Ot V58. 83 04/10/2014 Ot 272.4 04/10/2014 Ot 397.0 04/10/2014 Ot 401.9 04/10/2014 Ot 414.00 04/10/2014 Ot 424.0 04/10/2014 Ot V43.3 04/10/2014 Ot 272.4 04/10/2014 Ot 401.9 04/10/2014 Ot 414.01 04/10/2014 Ot V43.3 04/10/2014 Ot 429.3 04/10/2014 Ot 459.0 04/10/2014 Ot 715.31 04/10/2014 Ot V45.81 04/10/2014 Ot 414.00 04/10/2014 Ot 786.09 04/10/2014 Ot 786.50 04/10/2014 Ot 414.00 04/10/2014 Ot 416.8 04/10/2014 Ot 424.0 04/10/2014 Ot 786.09 04/10/2014 Ot 786.50 04/10/2014 Ot V43.3 04/10/2014 Ot 272.4 04/10/2014 Ot 401.9 04/10/2014 Ot 414.01 04/10/2014 Ot V43.3 04/10/2014 HASEEB FERRARI, MARIIA Ot 397.0 04/10/2014 HASEEB FERRARI, MARIIA Ot 424.0 04/10/2014 HASEEB FERRARI, MARIIA Ot V43.3 04/10/2014 HASEEB FERRARI, MARIIA Ot V67.09 04/10/2014 GERTRUDIS FERRARI, FABI Pisano Ot 414.00 04/10/2014 GERTRUDIS FERRARI, FABI Pisano Ot 496 04/10/2014 GERTRUDIS FERRARI, FABI Pisano Ot 414.00 04/10/2014 GERTRUDIS FERRARI, FABI Pisano Ot 496 04/10/2014 GERTRUDIS FERRARI, FABI Pisano Ot V43.3 04/10/2014 GERTRUDIS FERRARI, FABI Pisano Ot 790.29 04/10/2014 MANUEL BASS MD Ot V58. 61 04/10/2014 MANUEL BASS MD Ot V58. 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 AUTOLOG VEIN BYPASS ALEX 04/13/2014 ZACHERY FERRARI, SEBASTIÁN Dumont Ot 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 04/13/2014 SEBASTIÁN BINGHAM MD Ot 444.22 LOWER EXTREMITY EMBOLISM 04/13/2014 ZACHERY FERRARI, SEBASTIÁN Dumont Ot 530.81 ESOPHAGEAL REFLUX 04/13/2014 SEBASTIÁN BINGHAM MD Ot 716.90 ARTHROPATHY NOS-UNSPEC 04/13/2014 ZACHERY FERRARI, SEBASTIÁN Dumont Ot 782.3 EDEMA 04/13/2014 SEBASTIÁN BINGHAM MD Ot 996.74 OTH COMPL DUE TO OT VASCULAR DEVICE,IMP 04/13/2014 SEBASTIÁN BINGHAM MD Ot V15.82 HISTORY OF TOBACCO USE 04/13/2014 SEBASTIÁN BINGHAM MD Ot 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 04/13/2014 SEBASTIÁN BINGHAM MD Ot V45.76 ACQRD ABSENCE OF LUNG 04/13/2014 SEBASTIÁN BINGHAM MD Ot V45.81 AORTOCORONARY BYPASS 04/13/2014 SEBASTIÁN BINGHAM MD Ot V58.61 ANTICOAGULANTS,LT,CURRENT USE 04/19/2014 SEBASTIÁN BINGHAM MD Ot 272.4 04/19/2014 SEBASTIÁN BINGHAM MD Ot 274.9 04/19/2014 SEBASTIÁN BINGHAM MD Ot 275.2 04/19/2014 SEBASTIÁN BINGHAM MD Ot 276.52 04/19/2014 ZACHERY FERRARI, SEBASTIÁN Dumont Ot 276.8 04/19/2014 SEBASTIÁN BINGHAM MD Ot 285.9 04/19/2014 ZACHERY FERRARI, SEBASTIÁN S Ot 345.90 04/19/2014 ZACHERY FERRARI, SEBASTIÁN S Ot 410.71 04/19/2014 ZACHERY FERRARI, SEBASTIÁN S Ot 414.00 04/19/2014 ZACHERY FERRARI, SEBASTIÁN S Ot 414.2 04/19/2014 ZACHERY FERRARI, SEBASTIÁN S Ot 414.8 04/19/2014 ZACHERY FERRARI, SEBASTIÁN S Ot 416.8 04/19/2014 ZACHERY FERRARI, SEBASTIÁN S Ot 424.1 04/19/2014 ZACHERY FERRARI, SEBASTIÁN S Ot 427.1 04/19/2014 ZACHERY FERRARI, SEBASTIÁN S Ot 428.0 04/19/2014 ZACHERY FERRARI, SEBASTIÁN S Ot 428.23 04/19/2014 ZACHERY FERRARI, SEBASTIÁN S Ot 443.9 04/19/2014 ZACHERY FERRARI, SEBASTIÁN S Ot 607.83 04/19/2014 ZACHERY FERRARI, SEBASTIÁN S Ot 608.86 04/19/2014 ZACHERY FERRARI, SEBASTIÁN S Ot 716.90 04/19/2014 ZACHERY FERRARI, SEBASTIÁN S Ot 788.20 04/19/2014 ZACHERY FERRARI, SEBASTIÁN S Ot V15.82 04/19/2014 ZACHERY FERRARI, SEBASTIÁN S Ot V43.3 04/19/2014 ZACHERY FERRARI, SEBASTIÁN S Ot V45.81 04/19/2014 ZACHERY FERRARI, SEBASTIÁN S Ot V45.89 04/20/2014 SHELIA FERRARI, MANUEL Garnica Ot V58. 61 ANTICOAGULANTS,LT,CURRENT USE 04/20/2014 MANUEL BASS MD Ot V58. 83 ENCOUNTER FOR THERAPEUTIC DRUG MONITORIN 04/20/2014 ZACHERY FERRARI, SEBASTIÁN S Ot 272.4 04/20/2014 ZACHERY FERRARI, SEBASTIÁN S Ot 274.9 04/20/2014 ZACHERY FERRARI, SEBASTIÁN S Ot 275.2 04/20/2014 ZACHERY FERRARI, SEBASTIÁN S Ot 276.52 04/20/2014 ZACHERY FERRARI, SEBASTIÁN S Ot 276.8 04/20/2014 ZACHERY FERRARI, SEBASTIÁN S Ot 285.9 04/20/2014 ZACHERY FERRARI, SEBASTIÁN S Ot 345.90 04/20/2014 ZACHERY FERRARI, SEBASTIÁN S Ot 410.71 04/20/2014 ZACHERY FERRARI, SEBASTIÁN Dumont Ot 414.00 04/20/2014 ZACHERY FERRARI, SEBASTIÁN Dumont Ot 414.2 04/20/2014 ZACHERY FERRARI, SEBASTIÁN Dumont Ot 414.8 04/20/2014 ZACHERY FERRARI, SEBASTIÁN S Ot 416.8 04/20/2014 ZACHERY FERRARI, SEBASTIÁN S Ot 424.1 04/20/2014 ZACHERY FERRARI, SEBASTIÁN S Ot 427.1 04/20/2014 ZACHERY FERRARI, SEBASTIÁN S Ot 428.0 04/20/2014 ZACHERY FERRARI, SEBASTIÁN S Ot 428.23 04/20/2014 ZACHERY FERRARI, SEBASTIÁN S Ot 443.9 04/20/2014 ZACHERY FERRARI, SEBASTIÁN S Ot 607.83 04/20/2014 ZACHERY FERRARI, SEBASTIÁN S Ot 608.86 04/20/2014 ZACHERY FERRARI, SEBASTIÁN S Ot 716.90 04/20/2014 ZACHERY FERRARI, SEBASTIÁN S Ot 788.20 04/20/2014 ZACHERY FERRARI, SEBASTIÁN S Ot V15.82 04/20/2014 ZACHERY FERRARI, SEBASTIÁN Dumont Ot V43.3 04/20/2014 ZACHERY FERRARI, SEBASTIÁN Dumont Ot V45.81 04/20/2014 ZACHERY FERRARI, SEBASTIÁN Dumont Ot V45.89 04/20/2014 ZACHERY FERRARI, SEBASTIÁN Dumont Ot 272.4 HYPERLIPIDEMIA NEC/NOS 04/20/2014 ZACHERY FERRARI, SEBASTIÁN Dumont Ot 274.9 GOUT NOS 04/20/2014 ZACHERY FERRARI, SEBASTIÁN Dumont Ot 275.2 DIS MAGNESIUM METABOLISM 04/20/2014 SEBASTIÁN BINGHAM MD Ot 276.52 HYPOVOLEMIA 04/20/2014 SEBASTIÁN BINGHAM MD Ot 276.8 HYPOPOTASSEMIA 04/20/2014 SEBASTIÁN BINGHAM MD Ot 285.9 ANEMIA NOS 04/20/2014 ZACHERY FERRARI, SEBASTIÁN Dumont Ot 345.90 EPILEPSY UNSPEC W/O MENTION INTRACTABLE 04/20/2014 SEBASTIÁN BINGHAM MD Ot 401.9 HYPERTENSION NOS 04/20/2014 ZACHERY FERRARI, SEBASTIÁN Dumont Ot 410.71 AC MYOCARDIAL INFARCT,SUBENDO INFARCT,IN 04/20/2014 SEBASTIÁN BINGHAM MD Ot 414.00 CORON ATHEROSCLER NOS TYPE VESSEL, NATIV 04/20/2014 SEBASTIÁN BINGHAM MD Ot 414.2 CHRONIC TOTAL OCCLUSION OF CORONARY [place] 04/20/2014 ZACHERY FERRARI, SEBASTIÁN Dumont Ot 414.8 CHR ISCHEMIC HRT DIS NEC 04/20/2014 SEBASTIÁN BINGHAM MD Ot 416.8 CHR PULMON HEART DIS NEC 04/20/2014 ZACHERY FERRARI, SEBASTIÁN Dumont Ot 424.1 AORTIC VALVE DISORDER 04/20/2014 SEBASTIÁN BINGHAM MD Ot 427.1 PAROX VENTRIC TACHYCARD 04/20/2014 SEBASTIÁN BINGHAM MD Ot 428.0 CONGESTIVE HEART FAILURE NOS 04/20/2014 ZACHERY FERRARI, SEBASTIÁN Dumont Ot 428.23 ACUTE CHRONIC SYSTOLIC HRT FAILURE 04/20/2014 SEBASTIÁN BINGHAM MD Ot 443.9 PERIPH VASCULAR DIS NOS 04/20/2014 SEBASTIÁN BINGHAM MD Ot 458.9 HYPOTENSION NOS 04/20/2014 ZACHERY FERRARI, SEBASTIÁN Dumont Ot 607.83 EDEMA OF PENIS 04/20/2014 SEBASTIÁN BINGHAM MD Ot 608.86 EDEMA, MALE GENITAL ORGN 04/20/2014 SEBASTIÁN BINGHAM MD Ot 716.90 ARTHROPATHY NOS-UNSPEC 04/20/2014 SEBASTIÁN BINGHAM MD Ot 788.20 RETENTION OF URINE NOS 04/20/2014 SEBASTIÁN BINGHAM MD Ot V15.82 HISTORY OF TOBACCO USE 04/20/2014 SEBASTIÁN BINGHAM MD Ot 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 04/20/2014 SEBASTIÁN BINGHAM MD Ot V45.81 AORTOCORONARY BYPASS 04/20/2014 SEBASTIÁN BINGHAM MD Ot V45.89 POSTSURGICAL STATES NEC 04/24/2014 MANUEL BASS MD Ot V58. 61 04/24/2014 MANUEL BASS MD Ot V58. 83 05/03/2014 MANUEL BASS MD Ot V58. 61 05/03/2014 MANUEL BASS MD Ot V58. 83 05/03/2014 MANUEL BASS MD Ot V58. 61 05/03/2014 MANUEL BASS MD Ot V58. 83 05/04/2014 MANUEL BASS MD Ot V58. 61 05/04/2014 MANUEL BASS MD Ot V58. 83 06/01/2014 Ot V58.61 06/01/2014 Ot V58.83 06/02/2014 MANUEL BASS MD Ot V58. 61 06/02/2014 MANUEL BASS MD Ot V58. 83 06/05/2014 MANUEL BASS MD Ot V58. 61 06/05/2014 MANUEL BASS MD Ot V58. 83 06/06/2014 Ot 401.9 06/06/2014 Ot 414.00 06/06/2014 Ot 433.10 06/06/2014 Ot 443.9 06/06/2014 Ot 401.9 06/06/2014 Ot 414.00 06/06/2014 Ot 433.10 06/06/2014 Ot 443.9 07/11/2014 MANUEL BASS MD Ot 410. 92 07/11/2014 MANUEL BASS MD Ot V57. 89 07/13/2014 MANUEL BASS MD Ot 410. 92 07/13/2014 MANUEL BASS MD Ot V57. 89 08/01/2014 MANUEL BASS MD Ot V58. 61 ANTICOAGULANTS,LT,CURRENT USE 08/01/2014 MANUEL BASS MD Ot V58. 83 ENCOUNTER FOR THERAPEUTIC DRUG MONITORIN 08/02/2014 MANUEL BASS MD Ot 410. 92 AC MYOCARDIAL INFARCT,UNSPEC SITE,SUBSEQ 08/02/2014 MANUEL BASS MD, Ot V57. 89 REHABILITATION PROC NEC 10/20/2014 MIKY CAVAZOS MEDICARE INTERVIEWER Ot 443.9 10/20/2014 MIKY CAVAZOS MEDICARE INTERVIEWER Ot 729.5 10/23/2014 MIKY CAVAZOS MEDICARE INTERVIEWER Ot 443.9 10/23/2014 MIKY CAVAZOS MEDICARE INTERVIEWER Ot 729.5 11/24/2014 MANUEL BASS MD Ot V58. 61 11/24/2014 MANUEL BASS MD Ot V58. 83 08/20/2015 Ot 414.00 COR ON ATHEROSCLER NOS TYPE VESSEL, NATIV 08/20/2015 Ot 786.09 RES PIRATORY ABNORM NEC 08/20/[address] PAIN NOS 08/20/2015 Ot 414.00 COR ON ATHEROSCLER NOS TYPE VESSEL, NATIV 08/20/2015 Ot 416.8 CHR PULMON HEART DIS NEC 08/20/2015 Ot 424.0 MITR AL VALVE DISORDER 08/20/2015 Ot 786.09 RES PIRATORY ABNORM NEC 08/20/[address] PAIN NOS 08/20/2015 Ot 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 08/20/2015 Ot 272.4 HYPE RLIPIDEMIA NEC/NOS 08/20/2015 Ot 401.9 HYPE RTENSION NOS 08/20/2015 Ot 414.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 OF [place] CORON 08/20/2015 Ot 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 08/20/2015 MARIIA MEMBRENO MD Ot 397.0 TRICUSPID VALVE DISEASE 08/20/2015 MARIIA MEMBRENO MD Ot 424.0 MITRAL VALVE DISORDER 08/20/2015 MARIIA MEMBRENO MD Ot 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 08/20/2015 MARIIA MEMBRENO MD Ot V67.09 SURGERY FOLLOW-UP, OTHER SURGERY 08/20/2015 FABI CABA MD Ot 414.00 CORON ATHEROSCLER NOS TYPE VESSEL, NATIV 08/20/2015 FABI CABA MD Ot 496 CHR AIRWAY OBSTRUCT NEC 08/20/2015 FAIB CABA MD Ot 414.00 CORON ATHEROSCLER NOS TYPE VESSEL, NATIV 08/20/2015 FABI CABA MD Ot 496 CHR AIRWAY OBSTRUCT NEC 08/20/2015 FABI CABA MD Ot 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 08/20/2015 FABI CABA MD Ot 790.29 OTHER ABNORMAL GLUCOSE 08/20/2015 FABI CABA MD Ot 414.00 CORON ATHEROSCLER NOS TYPE VESSEL, NATIV 08/20/2015 FABI CABA MD Ot 428.0 CONGESTIVE HEART FAILURE NOS 08/20/2015 MANUEL BASS MD Ot V58. 61 ANTICOAGULANTS,LT,CURRENT USE 08/20/2015 MANUEL BASS MD Ot V58. 83 ENCOUNTER FOR THERAPEUTIC DRUG MONITORIN 08/20/2015 Ot V58.61 ANTICOAGULANTS,LT,CURRENT USE 08/20/2015 Ot V58.83 ENC OUNTER FOR THERAPEUTIC DRUG MONITORIN 08/20/2015 Ot 401.9 HYPE RTENSION NOS 08/20/2015 Ot 414.00 COR ON ATHEROSCLER NOS TYPE VESSEL, NATIV 08/20/2015 Ot 433.10 CAR OTID ARTERY OCCLUSION W O CEREBRAL IN 08/20/2015 Ot 443.9 GAUTAM PH VASCULAR DIS NOS 08/20/2015 MARINA ALMANZA MEDICARE INTERVIEWER Ot V58.61 ANTICOAGULANTS,LT,CURRENT USE 08/20/2015 MARINA ALMANZA MEDICARE INTERVIEWER Ot V58.83 ENCOUNTER FOR THERAPEUTIC DRUG MONITORIN 08/20/2015 MIKY CAVAZOS MEDICARE INTERVIEWER Ot 443.9 PERIPH VASCULAR DIS NOS 08/20/2015 MIKY CAVAZOS MEDICARE INTERVIEWER Ot 729.5 PAIN IN LIMB 08/21/2015 Ot 414.00 COR ON ATHEROSCLER NOS TYPE VESSEL, NATIV 08/21/2015 Ot 786.09 RES PIRATORY ABNORM NEC 08/21/[address] PAIN NOS 08/21/2015 Ot 414.00 COR ON ATHEROSCLER NOS TYPE VESSEL, NATIV 08/21/2015 Ot 416.8 CHR PULMON HEART DIS NEC 08/21/2015 Ot 424.0 MITR AL VALVE DISORDER 08/21/2015 Ot 786.09 RES PIRATORY ABNORM NEC 08/21/[address] PAIN NOS 08/21/2015 Ot 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 08/21/2015 Ot 272.4 HYPE RLIPIDEMIA NEC/NOS 08/21/2015 Ot 401.9 HYPE RTENSION NOS 08/21/2015 Ot 414.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 OF [place] CORON 08/21/2015 Ot 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 08/21/2015 HASEEB FERRARI, MARIIA Ot 397.0 TRICUSPID VALVE DISEASE 08/21/2015 HASEEB FERRARI, MARIIA Ot 424.0 MITRAL VALVE DISORDER 08/21/2015 HASEEB FERRARI, MARIIA Ot 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 08/21/2015 HASEEB FERRARI, MARIIA Ot V67.09 SURGERY FOLLOW-UP, OTHER SURGERY 08/21/2015 GERTRUDIS FERRARI, FABI Pisnao Ot 414.00 CORON ATHEROSCLER NOS TYPE VESSEL, NATIV 08/21/2015 FABI CABA MD Ot 496 CHR AIRWAY OBSTRUCT NEC 08/21/2015 FABI CABA MD Ot 414.00 CORON ATHEROSCLER NOS TYPE VESSEL, NATIV 08/21/2015 FABI CABA MD Ot 496 CHR AIRWAY OBSTRUCT NEC 08/21/2015 FABI CABA MD Ot 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 08/21/2015 FABI CABA MD Ot 790.29 OTHER ABNORMAL GLUCOSE 08/21/2015 FABI CABA MD Ot 414.00 CORON ATHEROSCLER NOS TYPE VESSEL, NATIV 08/21/2015 FABI CABA MD Ot 428.0 CONGESTIVE HEART FAILURE NOS 08/21/2015 MANUEL BASS MD Ot V58. 61 ANTICOAGULANTS,LT,CURRENT USE 08/21/2015 MANUEL BASS MD Ot V58. 83 ENCOUNTER FOR THERAPEUTIC DRUG MONITORIN 08/21/2015 Ot V58.61 ANTICOAGULANTS,LT,CURRENT USE 08/21/2015 Ot V58.83 ENC OUNTER FOR THERAPEUTIC DRUG MONITORIN 08/21/2015 Ot 401.9 HYPE RTENSION NOS 08/21/2015 Ot 414.00 COR ON ATHEROSCLER NOS TYPE VESSEL, NATIV 08/21/2015 Ot 433.10 CAR OTID ARTERY OCCLUSION W O CEREBRAL IN 08/21/2015 Ot 443.9 GAUTAM PH VASCULAR DIS NOS 08/21/2015 MARINA ALMANZA APRN Ot V58.61 ANTICOAGULANTS,LT,CURRENT USE 08/21/2015 MARINA ALMANZA APRN Ot V58.83 ENCOUNTER FOR THERAPEUTIC DRUG MONITORIN 08/21/2015 MIKY CAVAZOS APRN Ot 443.9 PERIPH VASCULAR DIS NOS 08/21/2015 MIKY CAVAZOS MEDICARE INTERVIEWER Ot 729.5 PAIN IN LIMB 08/21/2015 MARINA ALMANZA MEDICARE INTERVIEWER Ot E78.2 MIXED HYPERLIPIDEMIA 08/21/2015 MARINA ALMANZA APRN Ot Z79.01 GAS PUMPER (CURRENT) USE OF ANTICOAGULANT 08/22/2015 MARINA ALMANZA APRN Ot L03.116 CELLULITIS OF LEFT LOWER LIMB 08/22/2015 MARINA ALMANZA APRN Ot L03.116 CELLULITIS OF LEFT LOWER LIMB 08/22/2015 MARINA ALMANZA APRN Ot L03.116 CELLULITIS OF LEFT LOWER LIMB 08/23/2015 MARINA ALMANZA APRN Ot L03.116 CELLULITIS OF LEFT LOWER LIMB 08/23/2015 MARINA ALMANZA APRN Ot R93.7 ABNORMAL FINDINGS ON DIAGNOSTIC IMAGING 08/23/2015 ANGELA FERRARI, OTTO Mcdonough Ot L03.032 CELLULITIS OF LEFT TOE 08/23/2015 MARINA ALMANZA APRN Ot L03.116 CELLULITIS OF LEFT LOWER LIMB 08/23/2015 MARINA ALMANZA APRN Ot R93.7 ABNORMAL FINDINGS ON DIAGNOSTIC IMAGING 08/23/2015 MARINA ALMANZA APRN Ot L03.032 CELLULITIS OF LEFT TOE 08/23/2015 MANUEL BASS MD Ot E78. 2 MIXED HYPERLIPIDEMIA 08/23/2015 MARINA ALMANZA APRN Ot E78.5 HYPERLIPIDEMIA, UNSPECIFIED 08/23/2015 MARINA ALMANZA APRN Ot I1 0 ESSENTIAL (PRIMARY) HYPERTENSION 08/23/2015 MARINA ALMANZA APRN Ot I25.10 ATHSCL HEART DISEASE OF [place] CORONARY 08/23/2015 MARINA ALMANZA APRN Ot I65.23 OCCLUSION AND STENOSIS OF [place]ATER[place] 08/23/2015 MARINA ALMANZA APRN Ot L03.032 CELLULITIS OF LEFT TOE 08/27/2015 MARINA ALMANZA APRN Ot Z51.81 ENCOUNTER FOR THERAPEUTIC DRUG LEVEL MON 08/27/2015 MARINA ALMANZA APRN Ot Z79.01 SHELTER (CURRENT) USE OF ANTICOAGULANT 08/28/2015 MANUEL BASS MD Ot E78. 5 HYPERLIPIDEMIA, UNSPECIFIED 08/28/2015 MANUEL BASS MD Ot I10 ESSENTIAL (PRIMARY) HYPERTENSION 08/28/2015 MANUEL BASS MD Ot I25. 10 ATHSCL HEART DISEASE OF [place] CORONARY 08/29/2015 MARINA ALMANZA APRN Ot V58.61 ANTICOAGULANTS,LT,CURRENT USE 08/29/2015 MARINA ALMANZA APRN Ot V58.83 ENCOUNTER FOR THERAPEUTIC DRUG MONITORIN 08/30/2015 MARINA ALMANZA APRN Ot Z51.81 ENCOUNTER FOR THERAPEUTIC DRUG LEVEL MON 08/30/2015 MARINA ALMANZA APRN Ot Z79.01 SHELTER (CURRENT) USE OF ANTICOAGULANT 08/31/2015 MARINA ALMANZA APRN Ot Z51.81 ENCOUNTER FOR THERAPEUTIC DRUG LEVEL MON 08/31/2015 MARINA ALMANZA APRN Ot Z79.01 SHELTER (CURRENT) USE OF ANTICOAGULANT 09/04/2015 MANUEL BASS MD Ot E78. 2 MIXED HYPERLIPIDEMIA 09/06/2015 MARINA ALMANZA APRN Ot V58.61 09/06/2015 MARINA ALMANZA APRN Ot V58.83 09/06/2015 MARINA ALMANZA APRN Ot Z79.01 GAS PUMPER (CURRENT) USE OF ANTICOAGULANT 09/12/2015 MARINA ALMANZA MEDICARE INTERVIEWER Ot E78.5 HYPERLIPIDEMIA, UNSPECIFIED 09/12/2015 MARINA ALMANZA MEDICARE INTERVIEWER Ot I1 0 ESSENTIAL (PRIMARY) HYPERTENSION 09/12/2015 MARINA ALMANZA MEDICARE INTERVIEWER Ot I25.10 ATHSCL HEART DISEASE OF [place] CORONARY 09/12/2015 MARINA ALMANZA MEDICARE INTERVIEWER Ot I65.23 OCCLUSION AND STENOSIS OF BILATERAL [place] 09/12/2015 MARINA ALMANZA MEDICARE INTERVIEWER Ot L03.032 CELLULITIS OF LEFT TOE 09/14/2015 MARINA ALMANZA MEDICARE INTERVIEWER Ot Z51.81 ENCOUNTER FOR THERAPEUTIC DRUG LEVEL MON 09/14/2015 MARINA ALMANZA APRN Ot Z79.01 SHELTER (CURRENT) USE OF ANTICOAGULANT 09/14/2015 MARINA ALMANZA APRN Ot E78.5 HYPERLIPIDEMIA, UNSPECIFIED 09/14/2015 MARINA ALMANZA APRN Ot I1 0 ESSENTIAL (PRIMARY) HYPERTENSION 09/14/2015 MARINA ALMANZA APRN Ot I25.10 ATHSCL HEART DISEASE OF [place] CORONARY 09/14/2015 MARINA ALMANZA APRN Ot I65.23 OCCLUSION AND STENOSIS OF BILATERAL [place] 09/14/2015 MARINA ALMANZA MEDICARE INTERVIEWER Ot L03.032 CELLULITIS OF LEFT TOE 09/18/2015 OTTO MILLER MD Ot L03.032 CELLULITIS OF LEFT TOE 09/18/2015 MARINA ALMANZA APRN Ot L03.116 CELLULITIS OF LEFT LOWER LIMB 09/18/2015 MARINA ALMANZA APRN Ot R93.7 ABNORMAL FINDINGS ON DIAGNOSTIC IMAGING 09/19/2015 MARINA ALMANZA APRN Ot Z51.81 ENCOUNTER FOR THERAPEUTIC DRUG LEVEL MON 09/19/2015 MARINA ALMANZA APRN Ot Z79.01 GAS PUMPER (CURRENT) USE OF ANTICOAGULANT 09/20/2015 OTTO MILLER MD Ot L03.032 CELLULITIS OF LEFT TOE 09/20/2015 MARINA ALMANZA APRN Ot L03.116 CELLULITIS OF LEFT LOWER LIMB 09/20/2015 MARINA ALMANZA APRN Ot R93.7 ABNORMAL FINDINGS ON DIAGNOSTIC IMAGING 09/21/2015 MANUEL BASS MD Ot E78. 5 HYPERLIPIDEMIA, UNSPECIFIED 09/21/2015 MANUEL BASS MD Ot I10 ESSENTIAL (PRIMARY) HYPERTENSION 09/21/2015 MANUEL BASS MD Ot I25. 10 ATHSCL HEART DISEASE OF [place] CORONARY 09/25/2015 MANUEL BASS MD Ot E78. 5 HYPERLIPIDEMIA, UNSPECIFIED 09/25/2015 MANUEL BASS MD Ot I10 ESSENTIAL (PRIMARY) HYPERTENSION 09/25/2015 MANUEL BASS MD Ot I25. 10 ATHSCL HEART DISEASE OF [place] CORONARY 09/27/2015 LOIS GR MD Ot F17.210 NICOTINE DEPENDENCE, CIGARETTES, UNCOMPL 09/27/2015 LOIS GR MD Ot I77 .9 DISORDER OF ARTERIES AND ARTERIOLES, UNS 09/27/2015 LOIS GR MD Ot L97.529 NON-PRESSURE CHRONIC ULCER OTH PRT LEFT 10/03/2015 SANDRANDER DO, KALEB S Ot E78.0 PURE HYPERCHOLESTEROLEMIA 10/03/2015 SANDRANDER DO, KALEB S Ot E83.42 HYPOMAGNESEMIA 10/03/2015 MUKUND DO, KALEB S Ot G62.9 POLYNEUROPATHY, UNSPECIFIED 10/03/2015 ORENDER DO, KALEB S Ot I10 ESSENTIAL (PRIMARY) HYPERTENSION 10/03/2015 ORENDER DO, KALEB S Ot I25.10 ATHSCL HEART DISEASE OF [place] CORONARY 10/03/2015 SANDRANDER DO, KALEB S Ot I73.9 PERIPHERAL VASCULAR DISEASE, UNSPECIFIED 10/03/2015 SANDRANDER DO, KALEB S Ot K57.32 DVTRCLI OF LG INT W/O PERFORATION OR ABS 10/03/2015 SANDRANDER DO, KALEB S Ot L97.529 NON-PRESSURE CHRONIC ULCER OTH PRT LEFT 10/03/2015 SANDRANDER DO, KALEB S Ot M10.9 GOUT, UNSPECIFIED 10/03/2015 SANDRANDER DO, KALEB S Ot Z87.891 PERSONAL HISTORY OF NICOTINE DEPENDENCE 10/03/2015 DALE DUVAL DOQUELINE S Ot Z95.1 PRESENCE OF AORTOCORONARY BYPASS GRAFT 10/03/2015 MUKUND PRIETO KALEB S Ot Z95.2 PRESENCE OF PROSTHETIC HEART VALVE 10/03/2015 LOIS GR MD Ot F17.210 NICOTINE DEPENDENCE, CIGARETTES, UNCOMPL 10/03/2015 LOIS GR MD Ot I77 .9 DISORDER OF ARTERIES AND ARTERIOLES, UNS 10/03/2015 MAILE FERRARI, LOIS Oneil Ot L97.529 NON-PRESSURE CHRONIC ULCER OTH PRT LEFT 10/03/2015 SANDRANDER DO, KALEB S Ot E78.0 PURE HYPERCHOLESTEROLEMIA 10/03/2015 ORENDER DO, KALEB S Ot E83.42 HYPOMAGNESEMIA 10/03/2015 ORENDER DO, KALEB S Ot G62.9 POLYNEUROPATHY, UNSPECIFIED 10/03/2015 ORENDER DO, KALEB S Ot I10 ESSENTIAL (PRIMARY) HYPERTENSION 10/03/2015 SANDRANDER DO, KALEB S Ot I25.10 ATHSCL HEART DISEASE OF [place] CORONARY 10/03/2015 SANDRANDER DO, KALEB S Ot I73.9 PERIPHERAL VASCULAR DISEASE, UNSPECIFIED 10/03/2015 SANDRANDER DO, KALEB S Ot K57.32 DVTRCLI OF LG INT W/O PERFORATION OR ABS 10/03/2015 ZAIDA DUVAL DOLINE S Ot L97.529 NON-PRESSURE CHRONIC ULCER OTH PRT LEFT 10/03/2015 SANDRANDER DO KALEB S Ot M10.9 GOUT, UNSPECIFIED 10/03/2015 SANDRANDER DO, KALEB S Ot Z87.891 PERSONAL HISTORY OF NICOTINE DEPENDENCE 10/03/2015 MUKUND PRIETO KALEB S Ot Z95.1 PRESENCE OF AORTOCORONARY BYPASS GRAFT 10/03/2015 MUKUND PRIETO KALEB S Ot Z95.2 PRESENCE OF PROSTHETIC HEART VALVE 10/03/2015 DALE DUVAL DOQUELINE S Ot E78.0 PURE HYPERCHOLESTEROLEMIA 10/03/2015 SANDRANDER DO, KALEB S Ot E83.42 HYPOMAGNESEMIA 10/03/2015 SANDRANDER DO, KALEB S Ot G62.9 POLYNEUROPATHY, UNSPECIFIED 10/03/2015 SANDRANDER DO, KALEB S Ot I10 ESSENTIAL (PRIMARY) HYPERTENSION 10/03/2015 SANDRANDER DO, KALEB S Ot I25.10 ATHSCL HEART DISEASE OF [place] CORONARY 10/03/2015 SANDRANDER DO, KALEB S Ot I73.9 PERIPHERAL VASCULAR DISEASE, UNSPECIFIED 10/03/2015 ORENDER DO, KALEB S Ot K57.32 DVTRCLI OF LG INT W/O PERFORATION OR ABS 10/03/2015 KALEB DUVAL DO Ot L97.529 NON-PRESSURE CHRONIC ULCER OTH PRT LEFT 10/03/2015 KALEB DUVAL DO Ot M10.9 GOUT, UNSPECIFIED 10/03/2015 KALEB DUVAL DO Ot Z87.891 PERSONAL HISTORY OF NICOTINE DEPENDENCE 10/03/2015 KALEB DUVAL DO Ot Z95.1 PRESENCE OF AORTOCORONARY BYPASS GRAFT 10/03/2015 KALEB DUVAL DO S Ot Z95.2 PRESENCE OF PROSTHETIC HEART VALVE 10/04/2015 KALEB DUVAL DO Ot E11.621 TYPE 2 DIABETES MELLITUS WITH FOOT ULCER 10/04/2015 KALEB DUVAL DO Ot E78.0 PURE HYPERCHOLESTEROLEMIA 10/04/2015 KALEB DUVAL DO S Ot E83.42 HYPOMAGNESEMIA 10/04/2015 KALEB DUVAL DO Ot G62.9 POLYNEUROPATHY, UNSPECIFIED 10/04/2015 KALEB DUVAL DO S Ot I10 ESSENTIAL (PRIMARY) HYPERTENSION 10/04/2015 KALEB DUVAL DO Ot I25.10 ATHSCL HEART DISEASE OF [place] CORONARY 10/04/2015 KALEB DUVAL DO Ot I73.9 PERIPHERAL VASCULAR DISEASE, UNSPECIFIED 10/04/2015 KALEB DUVAL DO Ot K21.9 GASTRO-ESOPHAGEAL REFLUX DISEASE WITHOUT 10/04/2015 KALEB DUVAL DO Ot K57.32 DVTRCLI OF LG INT W/O PERFORATION OR ABS 10/04/2015 KALEB DUVAL DO Ot L97.529 NON-PRESSURE CHRONIC ULCER OTH PRT LEFT 10/04/2015 KALEB DUVAL DO Ot M10.9 GOUT, UNSPECIFIED 10/04/2015 KALEB DUVAL DO Ot Z79.01 GAS PUMPER (CURRENT) USE OF ANTICOAGULANT 10/04/2015 KALEB DUVAL DO Ot Z87.891 PERSONAL HISTORY OF NICOTINE DEPENDENCE 10/04/2015 KALEB DUVAL DO Ot Z95.1 PRESENCE OF AORTOCORONARY BYPASS GRAFT 10/04/2015 KALEB DUVAL DO Ot Z95.2 PRESENCE OF PROSTHETIC HEART VALVE 10/12/2015 MARINA ALMANZA MEDICARE INTERVIEWER Ot V58.61 10/12/2015 MARINA ALMANZA APRN Ot V58.83 10/12/2015 MARINA ALMANZA APRN Ot Z79.01 GAS PUMPER (CURRENT) USE OF ANTICOAGULANT 10/13/2015 MARINA ALMANZA APRN Ot E78.5 HYPERLIPIDEMIA, UNSPECIFIED 10/13/2015 MARINA ALMANZA MEDICARE INTERVIEWER Ot I1 0 ESSENTIAL (PRIMARY) HYPERTENSION 10/13/2015 MARINA ALMANZA APRN Ot I25.10 ATHSCL HEART DISEASE OF [place] CORONARY 10/13/2015 MARINA ALMANZA MEDICARE INTERVIEWER Ot I65.23 OCCLUSION AND STENOSIS OF BILATERAL [place] 10/13/2015 MARINA ALMANZA MEDICARE INTERVIEWER Ot L03.032 CELLULITIS OF LEFT TOE 10/14/2015 MARINA ALMANZA APRN Ot E78.5 HYPERLIPIDEMIA, UNSPECIFIED 10/14/2015 MARINA ALMANZA APRN Ot I1 0 ESSENTIAL (PRIMARY) HYPERTENSION 10/14/2015 MARINA ALMANZA APRN Ot I25.10 ATHSCL HEART DISEASE OF [place] CORONARY 10/14/2015 MARINA ALMANZA APRN Ot I65.23 OCCLUSION AND STENOSIS OF BILATERAL [place] 10/14/2015 MARINA ALMANZA APRN Ot L03.032 CELLULITIS OF LEFT TOE 10/19/2015 LOIS GR MD Ot 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 10/19/2015 LOIS GR MD Ot I87.323 CHRONIC VENOUS HTN W INFLAMMATION OF [place] 10/19/2015 LOIS GR MD Ot L97.523 NON-PRS CHRONIC ULCER OTH PRT LEFT FOOT 10/23/2015 MARINA ALMANZA APRN Ot Z51.81 ENCOUNTER FOR THERAPEUTIC DRUG LEVEL MON 10/23/2015 MARINA ALMANZA APRN Ot Z79.01 SHELTER (CURRENT) USE OF ANTICOAGULANT 11/02/2015 MARINA ALMANZA APRN Ot Z51.81 ENCOUNTER FOR THERAPEUTIC DRUG LEVEL MON 11/02/2015 MARINA ALMANZA APRN Ot Z79.01 SHELTER (CURRENT) USE OF ANTICOAGULANT 11/20/2015 LOIS GR MD Ot F17.210 NICOTINE DEPENDENCE, CIGARETTES, UNCOMPL 11/20/2015 LOIS GR MD Ot I70.245 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 [facility] 11/20/2015 LOIS GR MD Ot I77 .9 DISORDER OF ARTERIES AND ARTERIOLES, UNS 11/20/2015 LOIS GR MD Ot I87.323 CHRONIC VENOUS HTN W INFLAMMATION OF [place] 11/20/2015 LOIS GR MD Ot I89 .0 LYMPHEDEMA, NOT ELSEWHERE CLASSIFIED 11/20/2015 LOIS GR MD Ot L97.523 NON-PRS CHRONIC ULCER OTH PRT LEFT FOOT 11/20/2015 LOIS GR MD, Ot L97.529 NON-PRESSURE CHRONIC ULCER OTH PRT LEFT 11/20/2015 LOIS GR MD Ot I70.245 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 [facility] 11/20/2015 LOIS GR MD Ot I87.323 CHRONIC VENOUS HTN W INFLAMMATION OF [place] 11/20/2015 LOIS GR MD Ot L97.523 NON-PRS CHRONIC ULCER OTH PRT LEFT FOOT 11/21/2015 LOIS GR MD Ot F17.210 NICOTINE DEPENDENCE, CIGARETTES, UNCOMPL 11/21/2015 LOIS GR MD Ot I70.245 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 [facility] 11/21/2015 LOIS GR MD Ot I87.323 CHRONIC VENOUS HTN W INFLAMMATION OF [place] 11/21/2015 LOIS GR MD Ot I89 .0 LYMPHEDEMA, NOT ELSEWHERE CLASSIFIED 11/21/2015 LOIS GR MD, Ot L97.523 NON-PRS CHRONIC ULCER OTH PRT LEFT FOOT 11/27/2015 MARINA ALMANZA APRN Ot Z51.81 ENCOUNTER FOR THERAPEUTIC DRUG LEVEL MON 11/27/2015 MARINA ALMANZA APRN Ot Z79.01 GAS PUMPER (CURRENT) USE OF ANTICOAGULANT 12/03/2015 MARINA ALMANZA APRN Ot Z51.81 ENCOUNTER FOR THERAPEUTIC DRUG LEVEL MON 12/03/2015 MARINA ALMANZA APRN Ot Z79.01 SHELTER (CURRENT) USE OF ANTICOAGULANT 12/03/2015 MANUEL BASS MD Ot Z51. 81 ENCOUNTER FOR THERAPEUTIC DRUG LEVEL MON 12/03/2015 MANUEL BASS MD Ot Z79. 01 SHELTER (CURRENT) USE OF ANTICOAGULANT 12/04/2015 MANUEL BASS MD, Ot Z51. 81 ENCOUNTER FOR THERAPEUTIC DRUG LEVEL MON 12/04/2015 MANUEL BASS MD, Ot Z79. 01 GAS PUMPER (CURRENT) USE OF ANTICOAGULANT 12/05/2015 MANUEL BASS MD, Ot Z51. 81 ENCOUNTER FOR THERAPEUTIC DRUG LEVEL MON 12/05/2015 MANUEL BASS MD, Ot Z79. 01 SHELTER (CURRENT) USE OF ANTICOAGULANT 12/10/2015 LOIS GR MD Ot F17.210 NICOTINE DEPENDENCE, CIGARETTES, UNCOMPL 12/10/2015 LOIS GR MD Ot I77 .9 DISORDER OF ARTERIES AND ARTERIOLES, UNS 12/10/2015 LOIS GR MD, Ot L97.529 NON-PRESSURE CHRONIC ULCER OTH PRT LEFT 12/17/2015 MANUEL BASS MD, Ot Z51. 81 ENCOUNTER FOR THERAPEUTIC DRUG LEVEL MON 12/17/2015 MANUEL BASS MD, Ot Z79. 01 GAS PUMPER (CURRENT) USE OF ANTICOAGULANT 12/18/2015 MANUEL BASS MD, Ot Z51. 81 ENCOUNTER FOR THERAPEUTIC DRUG LEVEL MON 12/18/2015 MANUEL BASS MD, Ot Z79. 01 GAS PUMPER (CURRENT) USE OF ANTICOAGULANT 12/27/2015 OTTO MILLER MD Ot E11.42 TYPE 2 DIABETES MELLITUS WITH DIABETIC P 12/27/2015 OTTO MILLER MD Ot E11.622 TYPE 2 DIABETES MELLITUS WITH OTHER SKIN 12/27/2015 OTTO MILLER MD Ot E78.00 PURE HYPERCHOLESTEROLEMIA, UNSPECIFIED 12/27/2015 OTTO MILLER MD Ot I1 0 ESSENTIAL (PRIMARY) HYPERTENSION 12/27/2015 OTTO MILLER MD, Ot I25.10 ATHSCL HEART DISEASE OF [place] CORONARY 12/27/2015 OTTO MILLER MD, Ot K21.9 GASTRO-ESOPHAGEAL REFLUX DISEASE WITHOUT 12/27/2015 OTTO MILLER MD Ot L02.412 CUTANEOUS ABSCESS OF LEFT AXILLA 12/27/2015 OTTO MILLER MD, Ot L97.501 NON-PRS CHR ULCER OTH PRT UNSP FOOT LIMI 12/27/2015 OTTO MILLER MD Ot M10.9 GOUT, UNSPECIFIED 12/27/2015 OTTO MILLER MD Ot M19.90 UNSPECIFIED OSTEOARTHRITIS, UNSPECIFIED 12/27/2015 OTTO MILLER MD Ot Z79.01 SHELTER (CURRENT) USE OF ANTICOAGULANT 12/27/2015 OTTO MILLER MD Ot Z87.891 PERSONAL HISTORY OF NICOTINE DEPENDENCE 12/27/2015 OTTO MILLER MD Ot Z95.1 PRESENCE OF AORTOCORONARY BYPASS GRAFT 12/27/2015 OTTO MILLER MD Ot Z95.2 PRESENCE OF PROSTHETIC HEART VALVE 12/27/2015 OTTO MILLER MD Ot Z95.828 PRESENCE OF OTHER VASCULAR IMPLANTS AND 12/27/2015 Ot 414.00 COR ON ATHEROSCLER NOS TYPE VESSEL, NATIV 12/27/2015 Ot 786.09 RES PIRATORY ABNORM NEC 12/27/[address] PAIN NOS 12/27/2015 Ot 414.00 COR ON ATHEROSCLER NOS TYPE VESSEL, NATIV 12/27/2015 Ot 416.8 CHR PULMON HEART DIS NEC 12/27/2015 Ot 424.0 MITR AL VALVE DISORDER 12/27/2015 Ot 786.09 RES PIRATORY ABNORM NEC 12/27/[address] PAIN NOS 12/27/2015 Ot 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 12/27/2015 Ot 272.4 HYPE RLIPIDEMIA NEC/NOS 12/27/2015 Ot 401.9 HYPE RTENSION NOS 12/27/2015 Ot 414.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 OF [place] CORON 12/27/2015 Ot 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 12/27/2015 MARIIA MEMBRENO MD Ot 397.0 TRICUSPID VALVE DISEASE 12/27/2015 MARIIA MEMBRENO MD Ot 424.0 MITRAL VALVE DISORDER 12/27/2015 MARIIA MEMBRENO MD Ot 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 12/27/2015 MARIIA MEMBRENO MD Ot V67.09 SURGERY FOLLOW-UP, OTHER SURGERY 12/27/2015 GERTRUDIS FERRARI, FABI Pisano Ot 414.00 CORON ATHEROSCLER NOS TYPE VESSEL, NATIV 12/27/2015 FABI CABA MD Ot 496 CHR AIRWAY OBSTRUCT NEC 12/27/2015 FABI CABA MD Ot 414.00 CORON ATHEROSCLER NOS TYPE VESSEL, NATIV 12/27/2015 FABI CABA MD Ot 496 CHR AIRWAY OBSTRUCT NEC 12/27/2015 FABI CABA MD Ot 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 12/27/2015 FABI CABA MD Ot 790.29 OTHER ABNORMAL GLUCOSE 12/27/2015 FABI CABA MD Ot 414.00 CORON ATHEROSCLER NOS TYPE VESSEL, NATIV 12/27/2015 FABI CABA MD Ot 428.0 CONGESTIVE HEART FAILURE NOS 12/27/2015 MANUEL BASS MD Ot V58. 61 ANTICOAGULANTS,LT,CURRENT USE 12/27/2015 MANUEL BASS MD Ot V58. 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 12/27/2015 MIKY CAVAZOS MEDICARE INTERVIEWER Ot 443.9 PERIPH VASCULAR DIS NOS 12/27/2015 MIKY CAVAZOS MEDICARE INTERVIEWER Ot 729.5 PAIN IN LIMB 12/27/2015 ANGELA FERRARI, OTTO Mcdonough Ot L03.032 CELLULITIS OF LEFT TOE 12/27/2015 MARINA ALMANZA MEDICARE INTERVIEWER Ot E78.5 HYPERLIPIDEMIA, UNSPECIFIED 12/27/2015 MARINA ALMANZA MEDICARE INTERVIEWER Ot I1 0 ESSENTIAL (PRIMARY) HYPERTENSION 12/27/2015 MARINA ALMANZA MEDICARE INTERVIEWER Ot I25.10 ATHSCL HEART DISEASE OF [place] CORONARY 12/27/2015 MARINA ALMANZA MEDICARE INTERVIEWER Ot I65.23 OCCLUSION AND STENOSIS OF BILATERAL [place] 12/27/2015 MARINA ALMANZA MEDICARE INTERVIEWER Ot L03.032 CELLULITIS OF LEFT TOE 12/27/2015 MANUEL BASS MD Ot E78. 2 MIXED HYPERLIPIDEMIA 12/27/2015 MARINA ALMANZA MEDICARE INTERVIEWER Ot L03.116 CELLULITIS OF LEFT LOWER LIMB 12/27/2015 MARINA ALMANZA MEDICARE INTERVIEWER Ot R93.7 ABNORMAL FINDINGS ON DIAGNOSTIC IMAGING 12/27/2015 MARINA ALMANZA MEDICARE INTERVIEWER Ot Z51.81 ENCOUNTER FOR THERAPEUTIC DRUG LEVEL MON 12/27/2015 MARINA ALMANZA APRN Ot Z79.01 GAS PUMPER (CURRENT) USE OF ANTICOAGULANT 12/27/2015 MANUEL BASS MD, Ot E78. 5 HYPERLIPIDEMIA, UNSPECIFIED 12/27/2015 MANUEL BASS MD, Ot I10 ESSENTIAL (PRIMARY) HYPERTENSION 12/27/2015 MANUEL BASS MD Ot I25. 10 ATHSCL HEART DISEASE OF [place] CORONARY 12/27/2015 MARINA ALMANZA APRN Ot Z51.81 ENCOUNTER FOR THERAPEUTIC DRUG LEVEL MON 12/27/2015 MARINA ALMANZA APRN Ot Z79.01 SHELTER (CURRENT) USE OF ANTICOAGULANT 12/27/2015 LOIS GR MD Ot 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 12/27/2015 LOIS GR MD Ot I87.323 CHRONIC VENOUS HTN W INFLAMMATION OF [place] 12/27/2015 LOIS GR MD, Ot L97.523 NON-PRS CHRONIC ULCER OTH PRT LEFT FOOT 12/27/2015 LOIS GR MD Ot F17.210 NICOTINE DEPENDENCE, CIGARETTES, UNCOMPL 12/27/2015 LOIS GR MD Ot I77 .9 DISORDER OF ARTERIES AND ARTERIOLES, UNS 12/27/2015 LOIS GR MD, Ot L97.529 NON-PRESSURE CHRONIC ULCER OTH PRT LEFT 12/27/2015 MANUEL BASS MD Ot Z51. 81 ENCOUNTER FOR THERAPEUTIC DRUG LEVEL MON 12/27/2015 MANUEL BASS MD Ot Z79. 01 GAS PUMPER (CURRENT) USE OF ANTICOAGULANT 12/27/2015 OTTO MILLER MD Ot E11.42 TYPE 2 DIABETES MELLITUS WITH DIABETIC P 12/27/2015 OTTO MILLER MD Ot E11.622 TYPE 2 DIABETES MELLITUS WITH OTHER SKIN 12/27/2015 OTTO MILLER MD, Ot E78.00 PURE HYPERCHOLESTEROLEMIA, UNSPECIFIED 12/27/2015 OTTO MILLER MD, Ot I1 0 ESSENTIAL (PRIMARY) HYPERTENSION 12/27/2015 OTTO MILLER MD, Ot I25.10 ATHSCL HEART DISEASE OF [place] CORONARY 12/27/2015 OTTO MILLER MD Ot K21.9 GASTRO-ESOPHAGEAL REFLUX DISEASE WITHOUT 12/27/2015 OTTO MILLER MD Ot L02.412 CUTANEOUS ABSCESS OF LEFT AXILLA 12/27/2015 OTTO MILLER MD Ot L97.501 NON-PRS CHR ULCER OTH PRT UNSP FOOT LIMI 12/27/2015 OTTO MILLER MD Ot M10.9 GOUT, UNSPECIFIED 12/27/2015 OTTO MILLER MD, Ot M19.90 UNSPECIFIED OSTEOARTHRITIS, UNSPECIFIED 12/27/2015 OTTO MILLER MD Ot Z79.01 GAS PUMPER (CURRENT) USE OF ANTICOAGULANT 12/27/2015 OTTO MILLER MD Ot Z87.891 PERSONAL HISTORY OF NICOTINE DEPENDENCE 12/27/2015 OTTO MILLER MD Ot Z95.1 PRESENCE OF AORTOCORONARY BYPASS GRAFT 12/27/2015 OTTO MILLER MD Ot Z95.2 PRESENCE OF PROSTHETIC HEART VALVE 12/27/2015 OTTO MILLER MD Ot Z95.828 PRESENCE OF OTHER VASCULAR IMPLANTS AND 12/28/2015 OTTO MILLER MD Ot E11.42 TYPE 2 DIABETES MELLITUS WITH DIABETIC P 12/28/2015 OTTO MILLER MD Ot E11.622 TYPE 2 DIABETES MELLITUS WITH OTHER SKIN 12/28/2015 OTTO MILLER MD Ot E78.00 PURE HYPERCHOLESTEROLEMIA, UNSPECIFIED 12/28/2015 OTTO MILLER MD Ot I1 0 ESSENTIAL (PRIMARY) HYPERTENSION 12/28/2015 OTTO MILLER MD Ot I25.10 ATHSCL HEART DISEASE OF [place] CORONARY 12/28/2015 OTTO MILLER MD Ot K21.9 GASTRO-ESOPHAGEAL REFLUX DISEASE WITHOUT 12/28/2015 OTTO MILLER MD Ot L02.412 CUTANEOUS ABSCESS OF LEFT AXILLA 12/28/2015 OTTO MILLER MD Ot L97.523 NON-PRS CHRONIC ULCER OTH PRT LEFT FOOT 12/28/2015 OTTO MILLER MD Ot M10.9 GOUT, UNSPECIFIED 12/28/2015 OTTO MILLER MD Ot M19.90 UNSPECIFIED OSTEOARTHRITIS, UNSPECIFIED 12/28/2015 OTTO MILLER MD Ot Z79.01 SHELTER (CURRENT) USE OF ANTICOAGULANT 12/28/2015 OTTO MILLER MD Ot Z87.891 PERSONAL HISTORY OF NICOTINE DEPENDENCE 12/28/2015 OTTO MILLER MD Ot Z95.1 PRESENCE OF AORTOCORONARY BYPASS GRAFT 12/28/2015 OTTO MILLER MD Ot Z95.2 PRESENCE OF PROSTHETIC HEART VALVE 12/28/2015 OTTO MILLER MD Ot Z95.828 PRESENCE OF OTHER VASCULAR IMPLANTS AND 12/29/2015 OTTO MILLER MD, Ot E11.42 TYPE 2 DIABETES MELLITUS WITH DIABETIC P 12/29/2015 OTTO MILLER MD, Ot E11.622 TYPE 2 DIABETES MELLITUS WITH OTHER SKIN 12/29/2015 OTTO MILLER MD, Ot E78.00 PURE HYPERCHOLESTEROLEMIA, UNSPECIFIED 12/29/2015 OTTO MILLER MD Ot I1 0 ESSENTIAL (PRIMARY) HYPERTENSION 12/29/2015 OTTO MILLER MD, Ot I25.10 ATHSCL HEART DISEASE OF [place] CORONARY 12/29/2015 OTTO MILLER MD, Ot K21.9 GASTRO-ESOPHAGEAL REFLUX DISEASE WITHOUT 12/29/2015 OTTO MILLER MD Ot L02.412 CUTANEOUS ABSCESS OF LEFT AXILLA 12/29/2015 OTTO MILLER MD, Ot L97.523 NON-PRS CHRONIC ULCER OTH PRT LEFT FOOT 12/29/2015 OTTO MILLER MD, Ot M10.9 GOUT, UNSPECIFIED 12/29/2015 OTTO MILLER MD, Ot M19.90 UNSPECIFIED OSTEOARTHRITIS, UNSPECIFIED 12/29/2015 OTTO MILLER MD, Ot Z79.01 GAS PUMPER (CURRENT) USE OF ANTICOAGULANT 12/29/2015 OTTO MILLER MD Ot Z87.891 PERSONAL HISTORY OF NICOTINE DEPENDENCE 12/29/2015 OTTO MILLER MD Ot Z95.1 PRESENCE OF AORTOCORONARY BYPASS GRAFT 12/29/2015 OTTO MILLER MD Ot Z95.2 PRESENCE OF PROSTHETIC HEART VALVE 12/29/2015 OTTO MILLER MD, Ot Z95.828 PRESENCE OF OTHER VASCULAR IMPLANTS AND 12/30/2015 OTTO MILLER MD, Ot E11.42 TYPE 2 DIABETES MELLITUS WITH DIABETIC P 12/30/2015 OTTO MILLER MD, Ot E11.622 TYPE 2 DIABETES MELLITUS WITH OTHER SKIN 12/30/2015 OTTO MILLER MD, Ot E78.00 PURE HYPERCHOLESTEROLEMIA, UNSPECIFIED 12/30/2015 OTTO MILLER MD, Ot I1 0 ESSENTIAL (PRIMARY) HYPERTENSION 12/30/2015 ANGELA MD, OTTO A Ot I25.10 ATHSCL HEART DISEASE OF [place] CORONARY 12/30/2015 OTTO MILLER MD Ot K21.9 GASTRO-ESOPHAGEAL REFLUX DISEASE WITHOUT 12/30/2015 OTTO MILLER MD Ot L02.412 CUTANEOUS ABSCESS OF LEFT AXILLA 12/30/2015 OTTO MILLER MD, Ot L97.523 NON-PRS CHRONIC ULCER OTH PRT LEFT FOOT 12/30/2015 OTTO MILLER MD Ot M10.9 GOUT, UNSPECIFIED 12/30/2015 OTTO MILLER MD, Ot M19.90 UNSPECIFIED OSTEOARTHRITIS, UNSPECIFIED 12/30/2015 OTTO MILLER MD, Ot Z79.01 GAS PUMPER (CURRENT) USE OF ANTICOAGULANT 12/30/2015 OTTO MILLER MD, Ot Z87.891 PERSONAL HISTORY OF NICOTINE DEPENDENCE 12/30/2015 OTTO MILLER MD, Ot Z95.1 PRESENCE OF AORTOCORONARY BYPASS GRAFT 12/30/2015 OTTO MILLER MD Ot Z95.2 PRESENCE OF PROSTHETIC HEART VALVE 12/30/2015 OTTO MILLER MD Ot Z95.828 PRESENCE OF OTHER VASCULAR IMPLANTS AND 12/30/2015 OTTO MILLER MD, Ot 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 12/30/2015 OTTO MILLER MD Ot E11.42 TYPE 2 DIABETES MELLITUS WITH DIABETIC P 12/30/2015 OTTO MILLER MD Ot E11.622 TYPE 2 DIABETES MELLITUS WITH OTHER SKIN 12/30/2015 OTTO MILLER MD Ot E78.00 PURE HYPERCHOLESTEROLEMIA, UNSPECIFIED 12/30/2015 OTTO MILLER MD Ot I1 0 ESSENTIAL (PRIMARY) HYPERTENSION 12/30/2015 OTTO MILLER MD, Ot I25.10 ATHSCL HEART DISEASE OF [place] CORONARY 12/30/2015 OTTO MILLER MD, Ot K21.9 GASTRO-ESOPHAGEAL REFLUX DISEASE WITHOUT 12/30/2015 OTTO MILLER MD, Ot L02.412 CUTANEOUS ABSCESS OF LEFT AXILLA 12/30/2015 OTTO MILLER MD, Ot L97.523 NON-PRS CHRONIC ULCER OTH PRT LEFT FOOT 12/30/2015 OTTO MILLER MD Ot M10.9 GOUT, UNSPECIFIED 12/30/2015 OTTO MILLER MD, Ot M19.90 UNSPECIFIED OSTEOARTHRITIS, UNSPECIFIED 12/30/2015 OTTO MILLER MD Ot Z79.01 GAS PUMPER (CURRENT) USE OF ANTICOAGULANT 12/30/2015 OTTO MILLER MD Ot Z87.891 PERSONAL HISTORY OF NICOTINE DEPENDENCE 12/30/2015 OTTO MILLER MD Ot Z95.1 PRESENCE OF AORTOCORONARY BYPASS GRAFT 12/30/2015 OTTO MILLER MD Ot Z95.2 PRESENCE OF PROSTHETIC HEART VALVE 12/30/2015 OTTO MILLER MD Ot Z95.828 PRESENCE OF OTHER VASCULAR IMPLANTS AND 01/03/2016 MANUEL BASS MD Ot Z51. 81 ENCOUNTER FOR THERAPEUTIC DRUG LEVEL MON 01/03/2016 MANUEL BASS MD Ot Z79. 01 GAS PUMPER (CURRENT) USE OF ANTICOAGULANT 01/08/2016 MANUEL BASS MD Ot Z51. 81 ENCOUNTER FOR THERAPEUTIC DRUG LEVEL MON 01/08/2016 MANUEL BASS MD Ot Z79. 01 SHELTER (CURRENT) USE OF ANTICOAGULANT 01/25/2016 MARINA ALMANZA APRN Ot Z51.81 ENCOUNTER FOR THERAPEUTIC DRUG LEVEL MON 01/25/2016 MARINA ALMANZA APRN Ot Z79.01 GAS PUMPER (CURRENT) USE OF ANTICOAGULANT 01/27/2016 MARINA ALMANZA APRN Ot Z51.81 ENCOUNTER FOR THERAPEUTIC DRUG LEVEL MON 01/27/2016 MARINA ALMANZA APRN Ot Z79.01 SHELTER (CURRENT) USE OF ANTICOAGULANT 02/06/2016 LOIS GR MD Ot F17.210 NICOTINE DEPENDENCE, CIGARETTES, UNCOMPL 02/06/2016 LOIS RG MD Ot I77 .9 DISORDER OF ARTERIES AND ARTERIOLES, UNS 02/06/2016 LOIS GR MD Ot L97.529 NON-PRESSURE CHRONIC ULCER OTH PRT LEFT 02/19/2016 LOIS GR MD Ot F17.210 NICOTINE DEPENDENCE, CIGARETTES, UNCOMPL 02/19/2016 LOIS GR MD Ot I77 .9 DISORDER OF ARTERIES AND ARTERIOLES, UNS 02/19/2016 LOIS GR MD, Ot L97.529 NON-PRESSURE CHRONIC ULCER OTH PRT LEFT 03/01/2016 LENIN PINEDO DOA K Ot E11.9 TYPE 2 DIABETES MELLITUS WITHOUT COMPLIC 03/01/2016 KHRIS DO, SVETLANA K Ot I10 ESSENTIAL (PRIMARY) HYPERTENSION 03/01/2016 KHRIS LENIN PRIETOA K Ot I73.9 PERIPHERAL VASCULAR DISEASE, UNSPECIFIED 03/01/2016 KHRIS SVETLANA PRIETO K Ot I77.1 STRICTURE OF ARTERY 03/01/2016 KHRIS LENIN PRIETOA K Ot M79.662 PAIN IN LEFT LOWER LEG 03/01/2016 KHRIS LENIN PRIETOA K Ot Z79.01 SHELTER (CURRENT) USE OF ANTICOAGULANT 03/01/2016 KHRIS DO SVETLANA K Ot Z79.82 SHELTER (CURRENT) USE OF ASPIRIN 03/01/2016 KHRIS DO SVETLANA K Ot Z79.899 OTHER GAS PUMPER (CURRENT) DRUG THERAPY 03/01/2016 KHRIS DO SVETLANA K Ot Z95.5 PRESENCE OF CORONARY ANGIOPLASTY IMPLANT 03/01/2016 KHRIS SVETLANA K Ot Z95.828 PRESENCE OF OTHER VASCULAR IMPLANTS AND 03/02/2016 SHELIA FERRARI, MANUEL Garnica Ot Z51. 81 ENCOUNTER FOR THERAPEUTIC DRUG LEVEL [facility] 03/02/2016 MANUEL BASS MD Ot Z79. 01 GAS PUMPER (CURRENT) USE OF ANTICOAGULANT 03/04/2016 SVETLANA PINEDO DO K Ot E11.9 TYPE 2 DIABETES MELLITUS WITHOUT COMPLIC 03/04/2016 SVETLANA PINEDO DO K Ot I10 ESSENTIAL (PRIMARY) HYPERTENSION 03/04/2016 SVETLANA PINEDO DO Ot I73.9 PERIPHERAL VASCULAR DISEASE, UNSPECIFIED 03/04/2016 SVETLANA PINEDO DO K Ot I77.1 STRICTURE OF ARTERY 03/04/2016 SVETLANA PINEDO DO Ot M79.662 PAIN IN LEFT LOWER LEG 03/04/2016 KHRIS LENIN PRIETOA K Ot Z79.01 GAS PUMPER (CURRENT) USE OF ANTICOAGULANT 03/04/2016 KHRIS DO SVETLANA K Ot Z79.82 GAS PUMPER (CURRENT) USE OF ASPIRIN 03/04/2016 KHRIS DO SVETLANA K Ot Z79.899 OTHER GAS PUMPER (CURRENT) DRUG THERAPY 03/04/2016 KHRIS SVETLANA K Ot Z95.5 PRESENCE OF CORONARY ANGIOPLASTY IMPLANT 03/04/2016 KHRIS DO SVETLANA K Ot Z95.828 PRESENCE OF OTHER VASCULAR IMPLANTS AND 03/10/2016 ALICIA FERRARI, CHARLIE Diallo Ot E78.5 HYPERLIPIDEMIA, UNSPECIFIED 03/10/2016 CHARLIE VARGAS MD Ot E87.1 HYPO-OSMOLALITY AND HYPONATREMIA 03/10/2016 CHARLIE VARGAS MD Ot I10 ESSENTIAL (PRIMARY) HYPERTENSION 03/10/2016 CHARLIE VARGAS MD Ot I25.1 0 ATHSCL HEART DISEASE OF [place] CORONARY 03/10/2016 CHARLIE VARGAS MD Ot I34.0 NONRHEUMATIC MITRAL (VALVE) INSUFFICIENC 03/10/2016 CHARLIE VARGAS MD Ot I42.9 CARDIOMYOPATHY, UNSPECIFIED 03/10/2016 CHARLIE VARGAS MD Ot 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 03/10/2016 CHARLIE VARGAS MD Ot I65.2 3 OCCLUSION AND STENOSIS OF BILATERAL [place] 03/10/2016 CHARLIE VARGAS MD Ot I73.9 PERIPHERAL VASCULAR DISEASE, UNSPECIFIED 03/10/2016 CHARLIE VARGAS MD Ot J44.9 CHRONIC OBSTRUCTIVE PULMONARY DISEASE, U 03/10/2016 CHARLIE VARGAS MD Ot Z47.8 1 ENCOUNTER FOR ORTHOPEDIC AFTERCARE [place] 03/10/2016 CHARLIE VARGAS MD Ot Z87.8 91 PERSONAL HISTORY OF NICOTINE DEPENDENCE 03/10/2016 CHARLIE VARGAS MD Ot 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 03/10/2016 CHARLIE VARGAS MD Ot Z95.1 PRESENCE OF AORTOCORONARY BYPASS GRAFT 03/10/2016 CHARLIE VARGAS MD Ot Z95.2 PRESENCE OF PROSTHETIC HEART VALVE 03/10/2016 CHARLIE VARGAS MD Ot Z95.8 20 PERIPHERAL VASCULAR ANGIOPLASTY STATUS W 03/11/2016 CHARLIE VARGAS MD Ot E78.5 HYPERLIPIDEMIA, UNSPECIFIED 03/11/2016 CHARLIE VARGAS MD Ot E87.1 HYPO-OSMOLALITY AND HYPONATREMIA 03/11/2016 CHARLIE VARGAS MD Ot I10 ESSENTIAL (PRIMARY) HYPERTENSION 03/11/2016 CHARLIE VARGAS MD Ot I25.1 0 ATHSCL HEART DISEASE OF [place] CORONARY 03/11/2016 CHARLIE VARGAS MD Ot I34.0 NONRHEUMATIC MITRAL (VALVE) INSUFFICIENC 03/11/2016 CHARLIE VARGAS MD Ot I42.9 CARDIOMYOPATHY, UNSPECIFIED 03/11/2016 CHARLIE VARGAS MD Ot 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 03/11/2016 CHARLIE VARGAS MD Ot I65.2 3 OCCLUSION AND STENOSIS OF BILATERAL [place] 03/11/2016 CHARLIE VARGAS MD Ot I73.9 PERIPHERAL VASCULAR DISEASE, UNSPECIFIED 03/11/2016 CHARLIE VARGAS MD Ot J44.9 CHRONIC OBSTRUCTIVE PULMONARY DISEASE, U 03/11/2016 CHARLIE VARGAS MD Ot Z47.8 1 ENCOUNTER FOR ORTHOPEDIC AFTERCARE [facility] 03/11/2016 CHARLIE VARGAS MD Ot Z87.8 91 PERSONAL HISTORY OF NICOTINE DEPENDENCE 03/11/2016 CHARLIE VARGAS MD Ot 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 03/11/2016 CHARLIE VARGAS MD Ot Z95.1 PRESENCE OF AORTOCORONARY BYPASS GRAFT 03/11/2016 CHARLIE VARGAS MD Ot Z95.2 PRESENCE OF PROSTHETIC HEART VALVE 03/11/2016 CHARLIE VARGAS MD Ot Z95.8 20 PERIPHERAL VASCULAR ANGIOPLASTY STATUS W 03/11/2016 CHARLIE VARGAS MD Ot E78.5 HYPERLIPIDEMIA, UNSPECIFIED 03/11/2016 CHARLIE VARGAS MD Ot E87.1 HYPO-OSMOLALITY AND HYPONATREMIA 03/11/2016 CHARLIE VARGAS MD Ot I10 ESSENTIAL (PRIMARY) HYPERTENSION 03/11/2016 CHARLIE VARGAS MD Ot I25.1 0 ATHSCL HEART DISEASE OF [place] CORONARY 03/11/2016 CHARLIE VARGAS MD Ot I34.0 NONRHEUMATIC MITRAL (VALVE) INSUFFICIENC 03/11/2016 CHARLIE VARGAS MD Ot I42.9 CARDIOMYOPATHY, UNSPECIFIED 03/11/2016 CHARLIE VARGAS MD Ot 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 03/11/2016 CHARLIE VARGAS MD Ot I65.2 3 OCCLUSION AND STENOSIS OF BILATERAL [place] 03/11/2016 CHARLIE VARGAS MD Ot I73.9 PERIPHERAL VASCULAR DISEASE, UNSPECIFIED 03/11/2016 CHARLIE VARGAS MD Ot J44.9 CHRONIC OBSTRUCTIVE PULMONARY DISEASE, U 03/11/2016 CHARLIE VARGAS MD Ot Z47.8 1 ENCOUNTER FOR ORTHOPEDIC AFTERCARE [facility] 03/11/2016 CHARLIE VARGAS MD Ot Z87.8 91 PERSONAL HISTORY OF NICOTINE DEPENDENCE 03/11/2016 CHARLIE VARGAS MD Ot 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 03/11/2016 CHARLIE VARGAS MD Ot Z95.1 PRESENCE OF AORTOCORONARY BYPASS GRAFT 03/11/2016 CHARLIE VARGAS MD Ot Z95.2 PRESENCE OF PROSTHETIC HEART VALVE 03/11/2016 CHARLIE VARGAS MD Ot Z95.8 20 PERIPHERAL VASCULAR ANGIOPLASTY STATUS W 03/11/2016 CHARLIE VARGAS MD Ot E78.5 HYPERLIPIDEMIA, UNSPECIFIED 03/11/2016 CHARLIE VARGAS MD Ot E87.1 HYPO-OSMOLALITY AND HYPONATREMIA 03/11/2016 CHARLIE VARGAS MD Ot I10 ESSENTIAL (PRIMARY) HYPERTENSION 03/11/2016 CHARLIE VARGAS MD Ot I25.1 0 ATHSCL HEART DISEASE OF [place] CORONARY 03/11/2016 CHARLIE VARGAS MD Ot I34.0 NONRHEUMATIC MITRAL (VALVE) INSUFFICIENC 03/11/2016 CHARLIE VARGAS MD Ot I42.9 CARDIOMYOPATHY, UNSPECIFIED 03/11/2016 CHARLIE VARGAS MD Ot 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 03/11/2016 CHARLIE VARGAS MD Ot I65.2 3 OCCLUSION AND STENOSIS OF BILATERAL [place] 03/11/2016 CHARLIE VARGAS MD Ot I73.9 PERIPHERAL VASCULAR DISEASE, UNSPECIFIED 03/11/2016 CHARLIE VARGAS MD Ot J44.9 CHRONIC OBSTRUCTIVE PULMONARY DISEASE, U 03/11/2016 CHARLIE VARGAS MD Ot Z47.8 1 ENCOUNTER FOR ORTHOPEDIC AFTERCARE [place] 03/11/2016 CHARLIE VARGAS MD Ot Z87.8 91 PERSONAL HISTORY OF NICOTINE DEPENDENCE 03/11/2016 CHARLIE VARGAS MD Ot 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 03/11/2016 CHARLIE VARGAS MD Ot Z95.1 PRESENCE OF AORTOCORONARY BYPASS GRAFT 03/11/2016 CHARLIE VARGAS MD Ot Z95.2 PRESENCE OF PROSTHETIC HEART VALVE 03/11/2016 CHARLIE VARGAS MD Ot Z95.8 20 PERIPHERAL VASCULAR ANGIOPLASTY STATUS W 03/13/2016 CHARLIE VARGAS MD Ot E78.5 HYPERLIPIDEMIA, UNSPECIFIED 03/13/2016 CHARLIE VARGAS MD Ot E87.1 HYPO-OSMOLALITY AND HYPONATREMIA 03/13/2016 CHARLIE VARGAS MD Ot I10 ESSENTIAL (PRIMARY) HYPERTENSION 03/13/2016 CHARLIE VARGAS MD Ot I25.1 0 ATHSCL HEART DISEASE OF [place] CORONARY 03/13/2016 CHARLIE VARGAS MD Ot I34.0 NONRHEUMATIC MITRAL (VALVE) INSUFFICIENC 03/13/2016 CHARLIE VARGAS MD Ot I42.9 CARDIOMYOPATHY, UNSPECIFIED 03/13/2016 CHARLIE VARGAS MD Ot 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 03/13/2016 CHARLIE VARGAS MD Ot I65.2 3 OCCLUSION AND STENOSIS OF BILATERAL [place] 03/13/2016 CHARLIE VARGAS MD Ot I73.9 PERIPHERAL VASCULAR DISEASE, UNSPECIFIED 03/13/2016 CHARLIE VARGAS MD Ot J44.9 CHRONIC OBSTRUCTIVE PULMONARY DISEASE, U 03/13/2016 CHARLIE VARGAS MD Ot Z47.8 1 ENCOUNTER FOR ORTHOPEDIC AFTERCARE [place] 03/13/2016 CHARLIE VARGAS MD Ot Z87.8 91 PERSONAL HISTORY OF NICOTINE DEPENDENCE 03/13/2016 CHARLIE VARGAS MD Ot 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 03/13/2016 CHARLIE VARGAS MD Ot Z95.1 PRESENCE OF AORTOCORONARY BYPASS GRAFT 03/13/2016 CHARLIE VARGAS MD Ot Z95.2 PRESENCE OF PROSTHETIC HEART VALVE 03/13/2016 CHARLIE VARGAS MD Ot Z95.8 20 PERIPHERAL VASCULAR ANGIOPLASTY STATUS W 03/13/2016 CHARLIE VARGAS MD Ot E78.5 HYPERLIPIDEMIA, UNSPECIFIED 03/13/2016 CHARLIE VARGAS MD E Ot E87.1 HYPO-OSMOLALITY AND HYPONATREMIA 03/13/2016 CHARLIE VARGAS MD Ot I10 ESSENTIAL (PRIMARY) HYPERTENSION 03/13/2016 CHARLIE VARGAS MD Ot I25.1 0 ATHSCL HEART DISEASE OF [place] CORONARY 03/13/2016 CHARLIE VARGAS MD Ot I34.0 NONRHEUMATIC MITRAL (VALVE) INSUFFICIENC 03/13/2016 CHARLIE VARGAS MD Ot I42.9 CARDIOMYOPATHY, UNSPECIFIED 03/13/2016 CHARLIE VARGAS MD Ot 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 03/13/2016 CHARLIE VARGAS MD Ot I65.2 3 OCCLUSION AND STENOSIS OF BILATERAL [place] 03/13/2016 CHARLIE VARGAS MD Ot I73.9 PERIPHERAL VASCULAR DISEASE, UNSPECIFIED 03/13/2016 CHARLIE VARGAS MD Ot J44.9 CHRONIC OBSTRUCTIVE PULMONARY DISEASE, U 03/13/2016 CHARLIE VARGAS MD Ot Z47.8 1 ENCOUNTER FOR ORTHOPEDIC AFTERCARE [place] 03/13/2016 CHARLIE VARGAS MD Ot Z87.8 91 PERSONAL HISTORY OF NICOTINE DEPENDENCE 03/13/2016 CHARLIE VARGAS MD Ot 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 03/13/2016 CHARLIE VARGAS MD Ot Z95.1 PRESENCE OF AORTOCORONARY BYPASS GRAFT 03/13/2016 CHARLIE VARGAS MD Ot Z95.2 PRESENCE OF PROSTHETIC HEART VALVE 03/13/2016 CHARLIE VARGAS MD Ot Z95.8 20 PERIPHERAL VASCULAR ANGIOPLASTY STATUS W 03/13/2016 CHARLIE VARGAS MD Ot E78.5 HYPERLIPIDEMIA, UNSPECIFIED 03/13/2016 CHARLIE VARGAS MD Ot E87.1 HYPO-OSMOLALITY AND HYPONATREMIA 03/13/2016 CHARLIE VARGAS MD Ot I10 ESSENTIAL (PRIMARY) HYPERTENSION 03/13/2016 CHARLIE VARGAS MD Ot I25.1 0 ATHSCL HEART DISEASE OF [place] CORONARY 03/13/2016 CHARLIE VARGAS MD Ot I34.0 NONRHEUMATIC MITRAL (VALVE) INSUFFICIENC 03/13/2016 CHARLIE VARGAS MD Ot I42.9 CARDIOMYOPATHY, UNSPECIFIED 03/13/2016 CHARLIE VARGAS MD Ot 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 03/13/2016 CHARLIE VARGAS MD Ot I65.2 3 OCCLUSION AND STENOSIS OF [place]ILATERAL [place] 03/13/2016 CHARLIE VARGAS MD Ot I73.9 PERIPHERAL VASCULAR DISEASE, UNSPECIFIED 03/13/2016 CHARLIE VARGAS MD Ot J44.9 CHRONIC OBSTRUCTIVE PULMONARY DISEASE, U 03/13/2016 CHARLIE VARGAS MD Ot Z47.8 1 ENCOUNTER [facility] 03/13/2016 CHARLIE VARGAS MD Ot Z87.8 91 PERSONAL HISTORY OF NICOTINE DEPENDENCE 03/13/2016 CHARLIE VARGAS MD Ot 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 03/13/2016 CHARLIE VARGAS MD Ot Z95.1 PRESENCE OF AORTOCORONARY BYPASS GRAFT 03/13/2016 CHARLIE VARGAS MD Ot Z95.2 PRESENCE OF PROSTHETIC HEART VALVE 03/13/2016 CHARLIE VARGAS MD Ot Z95.8 20 PERIPHERAL VASCULAR ANGIOPLASTY STATUS W 03/13/2016 CHARLIE VARGAS MD Ot E78.5 HYPERLIPIDEMIA, UNSPECIFIED 03/13/2016 CHARLIE VARGAS MD Ot E87.1 HYPO-OSMOLALITY AND HYPONATREMIA 03/13/2016 CHARLIE VARGAS MD Ot I10 ESSENTIAL (PRIMARY) HYPERTENSION 03/13/2016 CHARLIE VARGAS MD Ot I25.1 0 ATHSCL HEART DISEASE OF [place] CORONARY 03/13/2016 CHARLIE VARGAS MD Ot I34.0 NONRHEUMATIC MITRAL (VALVE) INSUFFICIENC 03/13/2016 CHARLIE VARGAS MD Ot I42.9 CARDIOMYOPATHY, UNSPECIFIED 03/13/2016 CHARLIE VARGAS MD Ot 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 03/13/2016 CHARLIE VARGAS MD Ot I65.2 3 OCCLUSION AND STENOSIS OF BILATERAL [place] 03/13/2016 CHARLIE VARGAS MD Ot I73.9 PERIPHERAL VASCULAR DISEASE, UNSPECIFIED 03/13/2016 CHARLIE VARGAS MD Ot J44.9 CHRONIC OBSTRUCTIVE PULMONARY DISEASE, U 03/13/2016 CHARLIE VARGAS MD Ot Z47.8 1 ENCOUNTER FOR ORTHOPEDIC AFTERCARE [place] 03/13/2016 CHARLIE VARGAS MD Ot Z87.8 91 PERSONAL HISTORY OF NICOTINE DEPENDENCE 03/13/2016 CHARLIE VARGAS MD Ot 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 03/13/2016 CHARLIE VARGAS MD Ot Z95.1 PRESENCE OF AORTOCORONARY BYPASS GRAFT 03/13/2016 CHARLIE VARGAS MD Ot Z95.2 PRESENCE OF PROSTHETIC HEART VALVE 03/13/2016 CHARLIE VARGAS MD Ot Z95.8 20 PERIPHERAL VASCULAR ANGIOPLASTY STATUS W 03/13/2016 CHARLIE VARGAS MD Ot E78.5 HYPERLIPIDEMIA, UNSPECIFIED 03/13/2016 CHARLIE VARGAS MD Ot E87.1 HYPO-OSMOLALITY AND HYPONATREMIA 03/13/2016 CHARLIE VARGAS MD Ot I10 ESSENTIAL (PRIMARY) HYPERTENSION 03/13/2016 CHARLIE VARGAS MD Ot I25.1 0 ATHSCL HEART DISEASE OF [place] CORONARY 03/13/2016 CHARLIE VARGAS MD Ot I34.0 NONRHEUMATIC MITRAL (VALVE) INSUFFICIENC 03/13/2016 CHARLIE VARGAS MD Ot I42.9 CARDIOMYOPATHY, UNSPECIFIED 03/13/2016 CHARLIE VARGAS MD Ot 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 03/13/2016 CHARLIE VARGAS MD Ot I65.2 3 OCCLUSION AND STENOSIS OF [place]ILATERAL [place] 03/13/2016 CHARLIE VARGAS MD Ot I73.9 PERIPHERAL VASCULAR DISEASE, UNSPECIFIED 03/13/2016 CHARLIE VARGAS MD Ot J44.9 CHRONIC OBSTRUCTIVE PULMONARY DISEASE, U 03/13/2016 CHARLIE VARGAS MD Ot Z47.8 1 ENCOUNTER [facility] 03/13/2016 CHARLIE VARGAS MD Ot Z87.8 91 PERSONAL HISTORY OF NICOTINE DEPENDENCE 03/13/2016 CHARLIE VARGAS MD Ot 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 03/13/2016 CHARLIE VARGAS MD Ot Z95.1 PRESENCE OF AORTOCORONARY BYPASS GRAFT 03/13/2016 CHARLIE VARGAS MD Ot Z95.2 PRESENCE OF PROSTHETIC HEART VALVE 03/13/2016 CHARLIE VARGAS MD Ot Z95.8 20 PERIPHERAL VASCULAR ANGIOPLASTY STATUS W 03/13/2016 CHARLIE VARGAS MD Ot E78.5 HYPERLIPIDEMIA, UNSPECIFIED 03/13/2016 CHARLIE VARGAS MD Ot E87.1 HYPO-OSMOLALITY AND HYPONATREMIA 03/13/2016 CHARLIE VARGAS MD Ot I10 ESSENTIAL (PRIMARY) HYPERTENSION 03/13/2016 CHARLIE VARGAS MD Ot I25.1 0 ATHSCL HEART DISEASE OF [place] CORONARY 03/13/2016 CHARLIE VARGAS MD Ot I34.0 NONRHEUMATIC MITRAL (VALVE) INSUFFICIENC 03/13/2016 CHARLIE VARGAS MD Ot I42.9 CARDIOMYOPATHY, UNSPECIFIED 03/13/2016 CHARLIE VARGAS MD Ot 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 03/13/2016 CHARLIE VARGAS MD Ot I65.2 3 OCCLUSION AND STENOSIS OF BILATERAL [place] 03/13/2016 CHARLIE VARGAS MD Ot I73.9 PERIPHERAL VASCULAR DISEASE, UNSPECIFIED 03/13/2016 CHARLIE VARGAS MD Ot J44.9 CHRONIC OBSTRUCTIVE PULMONARY DISEASE, U 03/13/2016 CHARLIE VARGAS MD Ot Z47.8 1 ENCOUNTER FOR ORTHOPEDIC AFTERCARE [place] 03/13/2016 CHARLIE VARGAS MD Ot Z87.8 91 PERSONAL HISTORY OF NICOTINE DEPENDENCE 03/13/2016 CHARLIE VARGAS MD Ot 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 03/13/2016 CHARLIE VARGAS MD Ot Z95.1 PRESENCE OF AORTOCORONARY BYPASS GRAFT 03/13/2016 CHARLIE VARGAS MD Ot Z95.2 PRESENCE OF PROSTHETIC HEART VALVE 03/13/2016 CHARLIE VARGAS MD Ot Z95.8 20 PERIPHERAL VASCULAR ANGIOPLASTY STATUS W 03/13/2016 CHARLIE VARGAS MD Ot E78.5 HYPERLIPIDEMIA, UNSPECIFIED 03/13/2016 CHARLIE VARGAS MD Ot E87.1 HYPO-OSMOLALITY AND HYPONATREMIA 03/13/2016 CHARLIE VARGAS MD Ot I10 ESSENTIAL (PRIMARY) HYPERTENSION 03/13/2016 CHARLIE VARGAS MD Ot I25.1 0 ATHSCL HEART DISEASE OF [place] CORONARY 03/13/2016 CHARLIE VARGAS MD Ot I34.0 NONRHEUMATIC MITRAL (VALVE) INSUFFICIENC 03/13/2016 CHARLIE VARGAS MD Ot I42.9 CARDIOMYOPATHY, UNSPECIFIED 03/13/2016 CHARLIE VARGAS MD Ot 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 03/13/2016 CHARLIE VARGAS MD Ot I65.2 3 OCCLUSION AND STENOSIS OF BILATERAL [place] 03/13/2016 CHARLIE VARGAS MD Ot I73.9 PERIPHERAL VASCULAR DISEASE, UNSPECIFIED 03/13/2016 CHARLIE VARGAS MD Ot J44.9 CHRONIC OBSTRUCTIVE PULMONARY DISEASE, U 03/13/2016 CHARLIE VARGAS MD Ot Z47.8 1 ENCOUNTER FOR ORTHOPEDIC AFTERCARE [place] 03/13/2016 CHARLIE VARGAS MD Ot Z87.8 91 PERSONAL HISTORY OF NICOTINE DEPENDENCE 03/13/2016 CHARLIE VARGAS MD Ot 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 03/13/2016 CHARLIE VARGAS MD Ot Z95.1 PRESENCE OF AORTOCORONARY BYPASS GRAFT 03/13/2016 CHARLIE VARGAS MD Ot Z95.2 PRESENCE OF PROSTHETIC HEART VALVE 03/13/2016 CHARLIE VARGAS MD Ot Z95.8 20 PERIPHERAL VASCULAR ANGIOPLASTY STATUS W 03/14/2016 CHARLIE VARGAS MD Ot E78.5 HYPERLIPIDEMIA, UNSPECIFIED 03/14/2016 CHARLIE VARGAS MD Ot E87.1 HYPO-OSMOLALITY AND HYPONATREMIA 03/14/2016 CHARLIE VARGAS MD Ot I10 ESSENTIAL (PRIMARY) HYPERTENSION 03/14/2016 CHARLIE VARGAS MD, Ot I25.1 0 ATHSCL HEART DISEASE OF [place] CORONARY 03/14/2016 CHARLIE VARGAS MD Ot I34.0 NONRHEUMATIC MITRAL (VALVE) INSUFFICIENC 03/14/2016 CHARLIE VARGAS MD, Ot I42.9 CARDIOMYOPATHY, UNSPECIFIED 03/14/2016 CHARLIE VARGAS MD, Ot 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 03/14/2016 CAHRLIE VARGAS MD Ot I65.2 3 OCCLUSION AND STENOSIS OF BILATERAL [place] 03/14/2016 CHARLIE VARGAS MD, Ot I73.9 PERIPHERAL VASCULAR DISEASE, UNSPECIFIED 03/14/2016 CHARLIE VARGAS MD, Ot J44.9 CHRONIC OBSTRUCTIVE PULMONARY DISEASE, U 03/14/2016 CHARLIE VARGAS MD, Ot Z47.8 1 ENCOUNTER FOR ORTHOPEDIC AFTERCARE [place] 03/14/2016 CHARLIE VARGAS MD Ot Z87.8 91 PERSONAL HISTORY OF NICOTINE DEPENDENCE 03/14/2016 CHARLIE VARGAS MD, Ot 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 03/14/2016 CHARLIE VARGAS MD Ot Z95.1 PRESENCE OF AORTOCORONARY BYPASS GRAFT 03/14/2016 CHARLIE VARGAS MD Ot Z95.2 PRESENCE OF PROSTHETIC HEART VALVE 03/14/2016 CHARLIE VARGAS MD Ot Z95.8 20 PERIPHERAL VASCULAR ANGIOPLASTY STATUS W 03/16/2016 LOIS GR MD Ot F17.210 NICOTINE DEPENDENCE, CIGARETTES, UNCOMPL 03/16/2016 LOIS GR MD Ot 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 03/16/2016 LOIS GR MD Ot I77 .9 DISORDER OF ARTERIES AND ARTERIOLES, UNS 03/16/2016 LIOS GR MD Ot I87.323 CHRONIC VENOUS HTN W INFLAMMATION OF [place]UL[place] 03/16/2016 LOIS GR MD, Ot I89 .0 LYMPHEDEMA, NOT ELSEWHERE CLASSIFIED 03/16/2016 LOIS GR MD, Ot L97.523 NON-PRS CHRONIC ULCER OTH PRT LEFT FOOT 03/16/2016 LOIS GR MD, Ot L97.529 NON-PRESSURE CHRONIC ULCER OTH PRT LEFT 03/17/2016 LOIS GR MD, Ot F17.210 NICOTINE DEPENDENCE, CIGARETTES, UNCOMPL 03/17/2016 LOIS GR MD Ot 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 03/17/2016 LOIS GR MD Ot I87.323 CHRONIC VENOUS HTN W INFLAMMATION OF [place] 03/17/2016 LOIS GR MD Ot I89 .0 LYMPHEDEMA, NOT ELSEWHERE CLASSIFIED 03/17/2016 LOIS GR MD Ot L97.523 NON-PRS CHRONIC ULCER OTH PRT LEFT FOOT 03/19/2016 CHARLIE VARGAS MD Ot E78.5 HYPERLIPIDEMIA, UNSPECIFIED 03/19/2016 CHARLIE VARGAS MD Ot E87.1 HYPO-OSMOLALITY AND HYPONATREMIA 03/19/2016 CHARLIE VARGAS MD Ot I10 ESSENTIAL (PRIMARY) HYPERTENSION 03/19/2016 CHARLIE VARGAS MD Ot I25.1 0 ATHSCL HEART DISEASE OF [place] CORONARY 03/19/2016 CHARLIE VARGAS MD Ot I34.0 NONRHEUMATIC MITRAL (VALVE) INSUFFICIENC 03/19/2016 CHARLIE VARGAS MD Ot I42.9 CARDIOMYOPATHY, UNSPECIFIED 03/19/2016 CHARLIE VARGAS MD Ot 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 03/19/2016 CHARLIE VARGAS MD Ot I65.2 3 OCCLUSION AND STENOSIS OF BILATERAL [place] 03/19/2016 CHARLIE VARGAS MD Ot I73.9 PERIPHERAL VASCULAR DISEASE, UNSPECIFIED 03/19/2016 CHARLIE VARGAS MD Ot J44.9 CHRONIC OBSTRUCTIVE PULMONARY DISEASE, U 03/19/2016 CHARLIE VARGAS MD Ot K59.0 0 CONSTIPATION, UNSPECIFIED 03/19/2016 CHARLIE VARGAS MD Ot Z47.8 1 ENCOUNTER FOR ORTHOPEDIC AFTERCARE [place] 03/19/2016 CHARLIE VARGAS MD Ot Z87.8 91 PERSONAL HISTORY OF NICOTINE DEPENDENCE 03/19/2016 CHARLIE VARGAS MD Ot 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 03/19/2016 CHARLIE VARGAS MD Ot Z95.1 PRESENCE OF AORTOCORONARY BYPASS GRAFT 03/19/2016 CHARLIE VARGAS MD Ot Z95.2 PRESENCE OF PROSTHETIC HEART VALVE 03/19/2016 CHARLIE VARGAS MD Ot Z95.8 20 PERIPHERAL VASCULAR ANGIOPLASTY STATUS W 03/25/2016 LOIS GR MD Ot F17.210 NICOTINE DEPENDENCE, CIGARETTES, UNCOMPL 03/25/2016 LOIS GR MD Ot I77 .9 DISORDER OF ARTERIES AND ARTERIOLES, UNS 03/25/2016 LOIS GR MD Ot L97.529 NON-PRESSURE CHRONIC ULCER OTH PRT LEFT 03/25/2016 OTTO MILLER MD Ot Z51.81 ENCOUNTER FOR THERAPEUTIC DRUG LEVEL MON 03/25/2016 OTTO MILLER MD Ot Z79.01 SHELTER (CURRENT) USE OF ANTICOAGULANT 03/27/2016 OTTO MILLER MD Ot Z51.81 ENCOUNTER FOR THERAPEUTIC DRUG LEVEL MON 03/27/2016 OTTO MILLER MD Ot Z79.01 GAS PUMPER (CURRENT) USE OF ANTICOAGULANT 03/27/2016 OTTO MILLER MD Ot Z95.2 PRESENCE OF PROSTHETIC HEART VALVE 03/27/2016 LOIS GR MD Ot F17.210 NICOTINE DEPENDENCE, CIGARETTES, UNCOMPL 03/27/2016 LOIS GR MD Ot I77 .9 DISORDER OF ARTERIES AND ARTERIOLES, UNS 03/27/2016 LOIS GR MD Ot L97.529 NON-PRESSURE CHRONIC ULCER OTH PRT LEFT 04/09/2016 MANUEL BASS MD Ot Z79. 01 GAS PUMPER (CURRENT) USE OF ANTICOAGULANT 04/09/2016 MANUEL BASS MD Ot Z95. 2 PRESENCE OF PROSTHETIC HEART VALVE 04/11/2016 MANUEL BASS MD Ot Z79. 01 SHELTER (CURRENT) USE OF ANTICOAGULANT 04/11/2016 MANUEL BASS MD Ot Z95. 2 PRESENCE OF PROSTHETIC HEART VALVE 04/11/2016 OTTO MILLER MD Ot Z51.81 ENCOUNTER FOR THERAPEUTIC DRUG LEVEL MON 04/11/2016 OTTO MILLER MD Ot Z79.01 GAS PUMPER (CURRENT) USE OF ANTICOAGULANT 04/15/2016 MANUEL BASS MD Ot Z79. 01 GAS PUMPER (CURRENT) USE OF ANTICOAGULANT 04/15/2016 OTTO MILLER MD Ot Z51.81 ENCOUNTER FOR THERAPEUTIC DRUG LEVEL MON 04/15/2016 OTTO MILLER MD Ot Z79.01 SHELTER (CURRENT) USE OF ANTICOAGULANT 04/15/2016 OTTO MILLER MD Ot Z95.2 PRESENCE OF PROSTHETIC HEART VALVE 04/15/2016 MANUEL BASS MD Ot Z51. 81 ENCOUNTER FOR THERAPEUTIC DRUG LEVEL MON 04/15/2016 MANUEL BASS MD, Ot Z79. 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 81 ENCOUNTER FOR THERAPEUTIC DRUG LEVEL MON 04/20/2016 MANUEL BASS MD, Ot Z79. 01 SHELTER (CURRENT) USE OF ANTICOAGULANT 04/29/2016 OTTO MILLER MD, Ot Z51.81 ENCOUNTER FOR THERAPEUTIC DRUG LEVEL MON 04/29/2016 OTTO MILLER MD, Ot Z79.01 SHELTER (CURRENT) USE OF ANTICOAGULANT 04/30/2016 OTTO MILLER MD, Ot Z51.81 ENCOUNTER FOR THERAPEUTIC DRUG LEVEL MON 04/30/2016 OTTO MILLER MD, Ot Z79.01 GAS PUMPER (CURRENT) USE OF ANTICOAGULANT 04/30/2016 OTTO MILLER MD Ot Z95.2 PRESENCE OF PROSTHETIC HEART VALVE 04/30/2016 LOIS GR MD, Ot 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 [facility] 04/30/2016 LOIS GR MD, Ot L97.123 NON-PRS CHRONIC ULCER OF LEFT THIGH W [place] 04/30/2016 LOIS GR MD, Ot 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 81 ENCOUNTER FOR THERAPEUTIC DRUG LEVEL MON 05/06/2016 MANUEL BASS MD, Ot Z79. 01 SHELTER (CURRENT) USE OF ANTICOAGULANT 05/08/2016 MANUEL BASS MD, Ot Z79. 01 GAS PUMPER (CURRENT) USE OF ANTICOAGULANT 05/09/2016 MANUEL BASS MD, Ot Z51. 81 ENCOUNTER FOR THERAPEUTIC DRUG LEVEL MON 05/09/2016 MANUEL BASS MD, Ot Z79. 01 SHELTER (CURRENT) USE OF ANTICOAGULANT 05/09/2016 LOIS GR MD, Ot L97.122 NON-PRESSURE CHRONIC ULCER OF LEFT THIGH 05/09/2016 MANUEL BASS MD, Ot Z79. 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 81 ENCOUNTER FOR THERAPEUTIC DRUG LEVEL MON 05/12/2016 MANUEL BASS MD, Ot Z79. 01 GAS PUMPER (CURRENT) USE OF ANTICOAGULANT 05/12/2016 MANUEL BASS MD, Ot Z51. 81 ENCOUNTER FOR THERAPEUTIC DRUG LEVEL MON 05/12/2016 MANUEL BASS MD, Ot Z79. 01 GAS PUMPER (CURRENT) USE OF ANTICOAGULANT 05/12/2016 LOIS GR MD, Ot 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 [facility] 05/12/2016 LOIS GR MD, Ot L97.122 NON-PRESSURE CHRONIC ULCER OF LEFT THIGH 05/12/2016 LOIS GR MD, Ot T86.821 SKIN GRAFT (ALLOGRAFT) (AUTOGRAFT) FAILU 05/12/2016 LOIS GR MD, Ot T87.81 DEHISCENCE OF AMPUTATION STUMP 05/15/2016 MANUEL BASS MD, Ot Z79. 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 81 ENCOUNTER FOR THERAPEUTIC DRUG LEVEL MON 05/20/2016 MANUEL BASS MD, Ot Z79. 01 GAS PUMPER (CURRENT) USE OF ANTICOAGULANT 05/20/2016 MANUEL BASS MD Ot Z51. 81 ENCOUNTER FOR THERAPEUTIC DRUG LEVEL MON 05/20/2016 MANUEL BASS MD Ot Z79. 01 SHELTER (CURRENT) USE OF ANTICOAGULANT 05/20/2016 MANUEL BASS MD Ot Z51. 81 ENCOUNTER FOR THERAPEUTIC DRUG LEVEL MON 05/20/2016 MANUEL BASS MD, Ot Z79. 01 SHELTER (CURRENT) USE OF ANTICOAGULANT 05/20/2016 MANUEL BASS MD Ot Z51. 81 ENCOUNTER FOR THERAPEUTIC DRUG LEVEL MON 05/20/2016 MANUEL BASS MD, Ot Z79. 01 GAS PUMPER (CURRENT) USE OF ANTICOAGULANT 05/21/2016 LOIS GR MD Ot 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 [facility] 05/21/2016 LOIS GR MD, Ot L97.123 NON-PRS CHRONIC ULCER OF LEFT THIGH W [place] 05/21/2016 LOIS GR MD, Ot T87.81 DEHISCENCE OF AMPUTATION STUMP 05/21/2016 LOIS GR MD Ot 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 [facility] 05/21/2016 LOIS GR MD, Ot L97.123 NON-PRS CHRONIC ULCER OF LEFT THIGH W [place] 05/21/2016 LOIS GR MD, Ot T87.81 DEHISCENCE OF AMPUTATION STUMP 05/22/2016 LOIS GR MD Ot I70 .1 ATHEROSCLEROSIS OF RENAL ARTERY 05/22/2016 LOIS GR MD Ot I70.203 UNSP 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 EXTREMITI 05/22/2016 LOIS GR MD Ot I77 .1 STRICTURE OF ARTERY 05/22/2016 LOIS GR MD Ot L97.123 NON-PRS CHRONIC ULCER OF LEFT THIGH W [place] 05/22/2016 LOIS GR MD, Ot T87.81 DEHISCENCE OF AMPUTATION STUMP 05/22/2016 LOIS GR MD, Ot I70 .1 ATHEROSCLEROSIS OF RENAL ARTERY 05/22/2016 LOIS GR MD Ot I70.203 UNSP 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 EXTREMITI 05/22/2016 LOIS GR MD Ot I77 .1 STRICTURE OF ARTERY 05/22/2016 LOIS GR MD, Ot L97.123 NON-PRS CHRONIC ULCER OF LEFT THIGH W [place] 05/22/2016 LOIS GR MD, Ot T87.81 DEHISCENCE OF AMPUTATION STUMP 06/02/2016 LOIS GR MD, Ot 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 [facility] 06/02/2016 LOIS GR MD, Ot L97.122 NON-PRESSURE CHRONIC ULCER OF LEFT THIGH 06/02/2016 LOIS GR MD, Ot T86.821 SKIN GRAFT (ALLOGRAFT) (AUTOGRAFT) FAILU 06/02/2016 LOIS GR MD, Ot T87.81 DEHISCENCE OF AMPUTATION STUMP 06/05/2016 MANUEL BASS MD, Ot Z51. 81 ENCOUNTER FOR THERAPEUTIC DRUG LEVEL MON 06/05/2016 MANUEL BASS MD, Ot Z79. 01 SHELTER (CURRENT) USE OF ANTICOAGULANT 06/07/2016 MANUEL BASS MD, Ot Z51. 81 ENCOUNTER FOR THERAPEUTIC DRUG LEVEL MON 06/07/2016 MANUEL BASS MD, Ot Z79. 01 GAS PUMPER (CURRENT) USE OF ANTICOAGULANT 06/10/2016 LOIS GR MD, Ot 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 [facility] 06/10/2016 LOIS GR MD, Ot L97.123 NON-PRS CHRONIC ULCER OF LEFT THIGH W [place] 06/10/2016 LOIS GR MD, Ot T87.81 DEHISCENCE OF AMPUTATION STUMP 06/11/2016 LOIS GR MD Ot I70 .1 ATHEROSCLEROSIS OF RENAL ARTERY 06/11/2016 LOIS GR MD, Ot I70.203 UNSP 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 EXTREMITI 06/11/2016 LOIS GR MD Ot I77 .1 STRICTURE OF ARTERY 06/11/2016 LOIS GR MD, Ot L97.123 NON-PRS CHRONIC ULCER OF LEFT THIGH W MO 06/11/2016 LOIS GR MD, Ot T87.81 DEHISCENCE OF AMPUTATION STUMP 06/13/2016 MARKUS FERRARI, LAURA Lord Ot I73 .9 PERIPHERAL VASCULAR DISEASE, UNSPECIFIED 06/16/2016 LOIS GR MD, Ot 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 [facility] 06/16/2016 LOIS GR MD, Ot L97.122 NON-PRESSURE CHRONIC ULCER OF LEFT THIGH 06/16/2016 LOIS GR MD, Ot T86.821 SKIN GRAFT (ALLOGRAFT) (AUTOGRAFT) FAILU 06/16/2016 LOIS GR MD, Ot T87.81 DEHISCENCE OF AMPUTATION STUMP 06/17/2016 SHELIA FERRARI, MANUEL Garnica Ot Z79. 01 SHELTER (CURRENT) USE OF ANTICOAGULANT 06/22/2016 LOIS GR MD, Ot F17.210 NICOTINE DEPENDENCE, CIGARETTES, UNCOMPL 06/22/2016 LOIS GR MD, Ot 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 06/22/2016 LOIS GR MD, Ot I70.245 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 C 06/22/2016 LOIS GR MD, Ot I77 .9 DISORDER OF ARTERIES AND ARTERIOLES, UNS 06/22/2016 LOIS GR MD, Ot I87.323 CHRONIC VENOUS HTN W INFLAMMATION OF JULIA 06/22/2016 LOIS GR MD Ot I89 .0 LYMPHEDEMA, NOT ELSEWHERE CLASSIFIED 06/22/2016 LOIS GR MD, Ot L97.123 NON-PRS CHRONIC ULCER OF LEFT THIGH W NE 06/22/2016 LOIS GR MD, Ot L97.523 NON-PRS CHRONIC ULCER OTH PRT LEFT FOOT 06/22/2016 LOIS GR MD, Ot L97.529 NON-PRESSURE CHRONIC ULCER OTH PRT LEFT 06/22/2016 LOIS GR MD, Ot T87.81 DEHISCENCE OF AMPUTATION STUMP 06/22/2016 LOIS GR MD Ot 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 06/23/2016 LOIS GR MD Ot L97.122 NON-PRESSURE CHRONIC ULCER OF LEFT THIGH 06/24/2016 LOIS GR MD, Ot F17.210 NICOTINE DEPENDENCE, CIGARETTES, UNCOMPL 06/24/2016 LOIS GR MD Ot I77 .9 DISORDER OF ARTERIES AND ARTERIOLES, UNS 06/24/2016 LOIS GR MD, Ot L97.529 NON-PRESSURE CHRONIC ULCER OTH PRT LEFT 06/24/2016 LOIS GR MD, Ot F17.210 NICOTINE DEPENDENCE, CIGARETTES, UNCOMPL 06/24/2016 LOIS GR MD Ot I77 .9 DISORDER OF ARTERIES AND ARTERIOLES, UNS 06/24/2016 LOIS GR MD, Ot L97.529 NON-PRESSURE CHRONIC ULCER OTH PRT LEFT 06/24/2016 LOIS GR MD, Ot 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 06/24/2016 LOIS GR MD, Ot L97.123 NON-PRS CHRONIC ULCER OF LEFT THIGH W NE 06/24/2016 LOIS GR MD, Ot T87.81 DEHISCENCE OF AMPUTATION STUMP 06/25/2016 LOIS GR MD, Ot F17.210 NICOTINE DEPENDENCE, CIGARETTES, UNCOMPL 06/25/2016 LOIS GR MD, Ot I77 .9 DISORDER OF ARTERIES AND ARTERIOLES, UNS 06/25/2016 LOIS GR MD, Ot L97.529 NON-PRESSURE CHRONIC ULCER OTH PRT LEFT 06/26/2016 MANUEL BASS MD, Ot Z51. 81 ENCOUNTER FOR THERAPEUTIC DRUG LEVEL MON 06/26/2016 MANUEL BASS MD, Ot Z79. 01 SHELTER (CURRENT) USE OF ANTICOAGULANT 06/27/2016 LOIS GR MD, Ot I70 .1 ATHEROSCLEROSIS OF RENAL ARTERY 06/27/2016 LOIS GR MD, Ot I70.203 UNSP 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 EXTREMITI 06/27/2016 LOIS GR MD, Ot I77 .1 STRICTURE OF ARTERY 06/27/2016 LOIS GR MD, Ot L97.123 NON-PRS CHRONIC ULCER OF LEFT THIGH W NE 06/27/2016 LOIS GR MD, Ot T87.81 DEHISCENCE OF AMPUTATION STUMP 06/30/2016 MANUEL BASS MD, Ot Z51. 81 ENCOUNTER FOR THERAPEUTIC DRUG LEVEL MON 06/30/2016 MANUEL BASS MD, Ot Z79. 01 SHELTER (CURRENT) USE OF ANTICOAGULANT 06/30/2016 MANUEL BASS MD Ot Z51. 81 ENCOUNTER FOR THERAPEUTIC DRUG LEVEL MON 06/30/2016 MANUEL BASS MD, Ot Z79. 01 SHELTER (CURRENT) USE OF ANTICOAGULANT 07/02/2016 NAVIN STAPLETON MD Ot E11.9 TYPE 2 DIABETES MELLITUS WITHOUT COMPLIC 07/02/2016 NAVIN STAPLETON MD Ot I10 ESSENTIAL (PRIMARY) HYPERTENSION 07/02/2016 NAVIN STAPLETON MD Ot I25.10 ATHSCL HEART DISEASE OF [place] CORONARY 07/02/2016 NAVIN STAPLETON MD, Ot J44.9 CHRONIC OBSTRUCTIVE PULMONARY DISEASE, U 07/02/2016 NAVIN STAPLETON MD, Ot R79.1 ABNORMAL COAGULATION PROFILE 07/02/2016 NAVIN STAPLETON MD, Ot T81.89XA OTH COMPLICATIONS OF PROCEDURES, NEC, IN 07/02/2016 NAVIN STAPLETON MD, Ot Z79.01 SHELTER (CURRENT) USE OF ANTICOAGULANT 07/02/2016 NAVIN STAPLETON MD, Ot Z79.82 GAS PUMPER (CURRENT) USE OF ASPIRIN 07/02/2016 NAVIN STAPLETON MD, Ot Z79.899 OTHER SHELTER (CURRENT) DRUG THERAPY 07/02/2016 NAVIN STAPLETON MD, Ot 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 81 ENCOUNTER FOR THERAPEUTIC DRUG LEVEL MON 07/07/2016 MANUEL BASS MD, Ot Z79. 01 SHELTER (CURRENT) USE OF ANTICOAGULANT 07/08/2016 MANUEL BASS MD, Ot Z51. 81 ENCOUNTER FOR THERAPEUTIC DRUG LEVEL MON 07/08/2016 MANUEL BASS MD, Ot Z79. 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 07/15/2016 NAVIN STAPLETON MD, Ot Z95.1 PRESENCE OF AORTOCORONARY BYPASS GRAFT 07/15/2016 NAVIN STAPLETON MD, Ot Z95.5 PRESENCE OF CORONARY ANGIOPLASTY IMPLANT 07/15/2016 NAVIN STAPLETON MD Ot Z97.8 PRESENCE OF OTHER SPECIFIED DEVICES 07/15/2016 NAVIN STAPLETON MD Ot E11.9 TYPE 2 DIABETES MELLITUS WITHOUT COMPLIC 07/15/2016 NAVIN STAPLETON MD Ot I10 ESSENTIAL (PRIMARY) HYPERTENSION 07/15/2016 NAVIN STAPLETON MD, Ot I25.10 ATHSCL HEART DISEASE OF [place] CORONARY 07/15/2016 NAVIN STAPLETON MD, Ot J44.9 CHRONIC OBSTRUCTIVE PULMONARY DISEASE, U 07/15/2016 NAVIN STAPLETON MD, Ot R79.1 ABNORMAL COAGULATION PROFILE 07/15/2016 NAVIN STAPLETON MD, Ot T81.89XA OTH COMPLICATIONS OF PROCEDURES, NEC, IN 07/15/2016 NAVIN STAPLETON MD, Ot Z79.01 GAS PUMPER (CURRENT) USE OF ANTICOAGULANT 07/15/2016 NAVIN STAPLETON MD, Ot Z79.82 SHELTER (CURRENT) USE OF ASPIRIN 07/15/2016 NAVIN STAPLETON MD, Ot Z79.899 OTHER SHELTER (CURRENT) DRUG THERAPY 07/15/2016 NAVIN STAPLETON MD Ot 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 81 ENCOUNTER FOR THERAPEUTIC DRUG LEVEL MON 07/15/2016 MANUEL BASS MD, Ot Z79. 01 SHELTER (CURRENT) USE OF ANTICOAGULANT 07/16/2016 LOIS GR MD, Ot L97.122 NON-PRESSURE CHRONIC ULCER OF LEFT THIGH 07/18/2016 MANUEL BASS MD, Ot Z51. 81 ENCOUNTER FOR THERAPEUTIC DRUG LEVEL MON 07/18/2016 MANUEL BASS MD, Ot Z79. 01 GAS PUMPER (CURRENT) USE OF ANTICOAGULANT 07/18/2016 MANUEL BASS MD Ot Z51. 81 ENCOUNTER FOR THERAPEUTIC DRUG LEVEL MON 07/18/2016 MANUEL BASS MD, Ot Z79. 01 GAS PUMPER (CURRENT) USE OF ANTICOAGULANT 07/22/2016 MARKUS FERRARI, LAURA Lord Ot I73 .9 PERIPHERAL VASCULAR DISEASE, UNSPECIFIED 07/24/2016 MANUEL BASS MD, Ot Z51. 81 ENCOUNTER FOR THERAPEUTIC DRUG LEVEL MON 07/24/2016 MANUEL BASS MD, Ot Z79. 01 SHELTER (CURRENT) USE OF ANTICOAGULANT 07/25/2016 LOIS GR MD, Ot 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 [facility] 07/25/2016 LOIS GR MD, Ot L97.123 NON-PRS CHRONIC ULCER OF LEFT THIGH W NE 07/25/2016 LOIS GR MD, Ot T87.81 DEHISCENCE OF AMPUTATION STUMP 07/28/2016 LOIS GR MD, Ot L97.122 NON-PRESSURE CHRONIC ULCER OF LEFT THIGH 07/30/2016 LOIS GR MD Ot 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 [facility] 07/30/2016 LOIS GR MD, Ot L97.122 NON-PRESSURE CHRONIC ULCER OF LEFT THIGH 07/30/2016 LOIS GR MD, Ot T87.81 DEHISCENCE OF AMPUTATION STUMP 07/30/2016 MANUEL BASS MD, Ot Z51. 81 ENCOUNTER FOR THERAPEUTIC DRUG LEVEL MON 07/30/2016 MANUEL BASS MD, Ot Z79. 01 SHELTER (CURRENT) USE OF ANTICOAGULANT 08/05/2016 MARKUS FERRARI LAURA Risa Ot I73 .9 PERIPHERAL VASCULAR DISEASE, UNSPECIFIED 08/11/2016 LOIS GR MD, Ot 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 [facility] 08/11/2016 LOIS GR MD, Ot L97.123 NON-PRS CHRONIC ULCER OF LEFT THIGH W MO 08/11/2016 LOIS GR MD, Ot T87.81 DEHISCENCE OF AMPUTATION STUMP 08/18/2016 MANUEL BASS MD, Ot Z51. 81 ENCOUNTER FOR THERAPEUTIC DRUG LEVEL MON 08/18/2016 MANUEL BASS MD, Ot Z79. 01 SHELTER (CURRENT) USE OF ANTICOAGULANT 08/18/2016 LOIS GR MD, Ot 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 [facility] 08/18/2016 LOIS GR MD, Ot L97.122 NON-PRESSURE CHRONIC ULCER OF LEFT THIGH 08/18/2016 LOIS GR MD, Ot T87.81 DEHISCENCE OF AMPUTATION STUMP 08/18/2016 LOIS GR MD, Ot F17.210 NICOTINE DEPENDENCE, CIGARETTES, UNCOMPL 08/18/2016 LOIS GR MD, Ot 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 [facility] 08/18/2016 LOIS GR MD, Ot I77 .9 DISORDER OF ARTERIES AND ARTERIOLES, UNS 08/18/2016 LOIS GR MD, Ot L97.123 NON-PRS CHRONIC ULCER OF LEFT THIGH W MO 08/18/2016 LOIS GR MD, Ot L97.523 NON-PRS CHRONIC ULCER OTH PRT LEFT FOOT 08/18/2016 LOIS GR MD, Ot T87.81 DEHISCENCE OF AMPUTATION STUMP 08/19/2016 MANUEL BASS MD, Ot Z51. 81 ENCOUNTER FOR THERAPEUTIC DRUG LEVEL MON 08/19/2016 MANUEL BASS MD, Ot Z79. 01 SHELTER (CURRENT) USE OF ANTICOAGULANT 09/01/2016 MARINA ALMANZA APRN Ot Z51.81 ENCOUNTER FOR THERAPEUTIC DRUG LEVEL MON 09/01/2016 MARINA ALMANZA APRN Ot Z79.01 GAS PUMPER (CURRENT) USE OF ANTICOAGULANT 09/02/2016 OTTO MILLER MD Ot L97.122 NON-PRESSURE CHRONIC ULCER OF LEFT THIGH 09/02/2016 OTTO MILLER MD Ot M62.838 OTHER MUSCLE SPASM 09/04/2016 OTTO MILLER MD Ot A41.51 SEPSIS DUE TO ESCHERICHIA COLI [E. 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 09/04/2016 OTTO MILLER MD Ot J44.9 CHRONIC OBSTRUCTIVE PULMONARY DISEASE, U 09/04/2016 OTTO MILLER MD, Ot N39.0 URINARY TRACT INFECTION, SITE NOT SPECIF 09/04/2016 OTTO MILLER MD Ot T87.89 OTHER COMPLICATIONS OF AMPUTATION STUMP 09/04/2016 OTTO MILLER MD Ot Z79.01 SHELTER (CURRENT) USE OF ANTICOAGULANT 09/04/2016 OTTO MILLER MD Ot 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 09/04/2016 OTTO IMLLER MD Ot Z95.1 PRESENCE OF AORTOCORONARY BYPASS GRAFT 09/04/2016 OTTO MILLER MD Ot Z95.2 PRESENCE OF PROSTHETIC HEART VALVE 09/04/2016 OTTO MILLER MD Ot Z95.5 PRESENCE OF CORONARY ANGIOPLASTY IMPLANT 09/04/2016 LOIS GR MD Ot F17.210 NICOTINE DEPENDENCE, CIGARETTES, UNCOMPL 09/04/2016 MAILELOIS GARCIA MD, Ot 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 09/04/2016 LOIS GR MD, Ot I77 .9 DISORDER OF ARTERIES AND ARTERIOLES, UNS 09/04/2016 LOIS GR MD, Ot L97.123 NON-PRS CHRONIC ULCER OF LEFT THIGH W NE 09/04/2016 LOIS GR MD, Ot L97.523 NON-PRS CHRONIC ULCER OTH PRT LEFT FOOT 09/04/2016 LOIS GR MD, Ot T87.81 DEHISCENCE OF AMPUTATION STUMP 09/12/2016 MANUEL BASS MD, Ot Z51. 81 ENCOUNTER FOR THERAPEUTIC DRUG LEVEL MON 09/12/2016 MANUEL BASS MD, Ot Z79. 01 GAS PUMPER (CURRENT) USE OF ANTICOAGULANT 09/12/2016 MANUEL BASS MD, Ot Z95. 2 PRESENCE OF PROSTHETIC HEART VALVE 09/14/2016 RAISSA OLSON DO, Ot D64.9 ANEMIA, UNSPECIFIED 09/14/2016 RAISSA OLSON DO, Ot E11.40 TYPE 2 DIABETES MELLITUS WITH DIABETIC N 09/14/2016 RAISSA OLSON DO, Ot E78.00 PURE HYPERCHOLESTEROLEMIA, UNSPECIFIED 09/14/2016 RAISSA OLSON DO, Ot E83.42 HYPOMAGNESEMIA 09/14/2016 RAISSA OLSON DO, Ot F17.210 NICOTINE DEPENDENCE, CIGARETTES, UNCOMPL 09/14/2016 RAISSA OLSON DO, Ot I1 0 ESSENTIAL (PRIMARY) HYPERTENSION 09/14/2016 RAISSA OLSON DO, Ot I25.10 ATHSCL HEART DISEASE OF [place] CORONARY 09/14/2016 RAISSA OLSON DO, Ot I73.9 PERIPHERAL VASCULAR DISEASE, UNSPECIFIED 09/14/2016 RAISSA OLSON DO, Ot J44.9 CHRONIC OBSTRUCTIVE PULMONARY DISEASE, U 09/14/2016 RAISSA OLSON DO, Ot N39.0 URINARY TRACT INFECTION, SITE NOT SPECIF 09/14/2016 RAISSA OLSON DO, Ot R50.9 FEVER, UNSPECIFIED 09/14/2016 RAISSA OLSON DO, Ot Z79.01 GAS PUMPER (CURRENT) USE OF ANTICOAGULANT 09/14/2016 RAISSA OLSON DO, Ot Z79.82 GAS PUMPER (CURRENT) USE OF ASPIRIN 09/14/2016 RAISSA OLSON DO, Ot Z95.1 PRESENCE OF AORTOCORONARY BYPASS GRAFT 09/14/2016 RAISSA OLSON DO, Ot Z95.2 PRESENCE OF PROSTHETIC HEART VALVE 09/14/2016 RAISSA OLSON DO Ot Z95.5 PRESENCE OF CORONARY ANGIOPLASTY IMPLANT 09/16/2016 RAISSA OLSON DO, Ot F17.210 NICOTINE DEPENDENCE, CIGARETTES, UNCOMPL 09/16/2016 RAISSA OLSON DO, Ot N39.0 URINARY TRACT INFECTION, SITE NOT SPECIF 09/16/2016 RAISSA OLSON DO, Ot R50.9 FEVER, UNSPECIFIED 09/16/2016 RAISSA OLSON DO, Ot Z79.01 GAS PUMPER (CURRENT) USE OF ANTICOAGULANT 09/16/2016 RAISSA OLSON DO, Ot Z79.82 SHELTER (CURRENT) USE OF ASPIRIN 09/22/2016 LOIS GR MD, Ot F17.210 NICOTINE DEPENDENCE, CIGARETTES, UNCOMPL 09/22/2016 LOIS GR MD, Ot 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 [facility] 09/22/2016 LOIS GR MD Ot I77 .9 DISORDER OF ARTERIES AND ARTERIOLES, UNS 09/22/2016 LOIS GR MD Ot L97.123 NON-PRS CHRONIC ULCER OF LEFT THIGH W NE 09/22/2016 LOIS GR MD Ot L97.523 NON-PRS CHRONIC ULCER OTH PRT LEFT FOOT 09/22/2016 LOIS GR MD, Ot T87.81 DEHISCENCE OF AMPUTATION STUMP 09/26/2016 OTTO MILLER MD Ot L97.122 NON-PRESSURE CHRONIC ULCER OF LEFT THIGH 09/26/2016 OTTO MILLER MD Ot M62.838 OTHER MUSCLE SPASM 09/30/2016 LOIS GR MD Ot F17.210 NICOTINE DEPENDENCE, CIGARETTES, UNCOMPL 09/30/2016 LIOS GR MD Ot 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 [facility] 09/30/2016 LOIS GR MD Ot I77 .9 DISORDER OF ARTERIES AND ARTERIOLES, UNS 09/30/2016 LOIS GR MD Ot L97.123 NON-PRS CHRONIC ULCER OF LEFT THIGH W NE 09/30/2016 LOIS GR MD, Ot L97.523 NON-PRS CHRONIC ULCER OTH PRT LEFT FOOT 09/30/2016 LOIS GR MD Ot T87.81 DEHISCENCE OF AMPUTATION STUMP 10/03/2016 MANUEL BASS MD, Ot Z51. 81 ENCOUNTER FOR THERAPEUTIC DRUG LEVEL MON 10/03/2016 MANUEL BASS MD, Ot Z79. 01 SHELTER (CURRENT) USE OF ANTICOAGULANT 10/03/2016 MANUEL BASS MD, Ot Z95. 2 PRESENCE OF PROSTHETIC HEART VALVE 10/06/2016 LOIS GR MD, Ot F17.210 NICOTINE DEPENDENCE, CIGARETTES, UNCOMPL 10/06/2016 LOIS GR MD, Ot 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 [facility] 10/06/2016 LOIS GR MD, Ot I77 .9 DISORDER OF ARTERIES AND ARTERIOLES, UNS 10/06/2016 LOIS GR MD, Ot L97.123 NON-PRS CHRONIC ULCER OF LEFT THIGH W MO 10/06/2016 LOIS GR MD, Ot L97.523 NON-PRS CHRONIC ULCER OTH PRT LEFT FOOT 10/06/2016 LOIS GR MD, Ot T87.81 DEHISCENCE OF AMPUTATION STUMP 10/30/2016 LOIS GR MD, Ot 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 [facility] 10/30/2016 LOIS GR MD, Ot L97.121 NON-PRS CHRONIC ULCER OF LEFT THIGH LIMI 10/30/2016 LOIS GR MD, Ot L97.122 NON-PRESSURE CHRONIC ULCER OF LEFT THIGH 10/30/2016 LOIS GR MD, Ot T87.81 DEHISCENCE OF AMPUTATION STUMP 10/31/2016 LOIS GR MD, Ot 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 [facility] 10/31/2016 LOIS GR MD, Ot L97.121 NON-PRS CHRONIC ULCER OF LEFT THIGH [place] 10/31/2016 LOIS GR MD, Ot L97.122 NON-PRESSURE CHRONIC ULCER OF LEFT THIGH 10/31/2016 LOIS GR MD, Ot T87.81 DEHISCENCE OF AMPUTATION STUMP 10/31/2016 MANUEL BASS MD, Ot Z51. 81 ENCOUNTER FOR THERAPEUTIC DRUG LEVEL MON 10/31/2016 MANUEL BASS MD, Ot Z79. 01 GAS PUMPER (CURRENT) USE OF ANTICOAGULANT 10/31/2016 MANUEL BASS MD, Ot Z95. 2 PRESENCE OF PROSTHETIC HEART VALVE 11/05/2016 ANSON QUINTANILLA Ot E78.2 MIXED HYPERLIPIDEMIA 11/05/2016 ANSON QUINTANILLA Ot I25.10 ATHSCL HEART DISEASE OF [place] CORONARY 11/05/2016 ANSON QUINTANILLA Ot I65.23 OCCLUSION AND STENOSIS OF BILATERAL [place] 11/05/2016 ANSON QUINTANILLA Ot I73.9 PERIPHERAL VASCULAR DISEASE, UNSPECIFIED 11/11/2016 LOIS GR MD, Ot I50.21 ACUTE SYSTOLIC (CONGESTIVE) HEART FAILUR 11/11/2016 LOIS GR MD, Ot 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 [facility] 11/11/2016 LOIS GR MD, Ot L97.121 NON-PRS CHRONIC ULCER OF LEFT THIGH LIMI 11/11/2016 LOIS GR MD, Ot L97.122 NON-PRESSURE CHRONIC ULCER OF LEFT THIGH 11/11/2016 LOIS GR MD, Ot N18 .4 CHRONIC KIDNEY DISEASE, STAGE 4 (SEVERE) 11/11/2016 LOIS GR MD, Ot T87.81 DEHISCENCE OF AMPUTATION STUMP 11/12/2016 LOIS GR MD, Ot L97.122 NON-PRESSURE CHRONIC ULCER OF LEFT THIGH 11/17/2016 OTTO MILLER MD Ot 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 [facility] 11/18/2016 OTTO MILLER MD Ot I11.0 HYPERTENSIVE HEART DISEASE WITH HEART FA 11/18/2016 OTTO MILLER MD Ot I50.9 HEART FAILURE, UNSPECIFIED 11/18/2016 MANUEL BASS MD Ot 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 [facility] 11/18/2016 MANUEL BASS MD, Ot L97.121 NON-PRS CHRONIC ULCER OF LEFT THIGH LIMI 11/18/2016 MANUEL BASS MD, Ot L97.122 NON-PRESSURE CHRONIC ULCER OF LEFT THIGH 11/18/2016 MANUEL BASS MD, Ot T87. 81 DEHISCENCE OF AMPUTATION STUMP 11/18/2016 MANUEL BASS MD, Ot Z79. 01 GAS PUMPER (CURRENT) USE OF ANTICOAGULANT 11/23/2016 MANUEL BASS MD, Ot Z51. 81 ENCOUNTER FOR THERAPEUTIC DRUG LEVEL MON 11/23/2016 MANUEL BASS MD, Ot Z79. 01 SHELTER (CURRENT) USE OF ANTICOAGULANT 11/23/2016 SHELIA FERRARI, MANUEL Garncia Ot Z95. 2 PRESENCE OF PROSTHETIC HEART VALVE 11/23/2016 LOIS GR MD, Ot 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 [facility] 11/23/2016 LOIS GR MD, Ot L97.121 NON-PRS CHRONIC ULCER OF LEFT THIGH LIMI 11/23/2016 LOIS GR MD, Ot L97.122 NON-PRESSURE CHRONIC ULCER OF LEFT THIGH 11/23/2016 LOIS GR MD, Ot T87.81 DEHISCENCE OF AMPUTATION STUMP 11/27/2016 ANSON QUINTANILLA Ot E78.2 MIXED HYPERLIPIDEMIA 11/27/2016 ANSON QUINTANILLA Ot I25.10 ATHSCL HEART DISEASE OF [place] CORONARY 11/27/2016 ANSON QUINTANILLA Ot I65.23 OCCLUSION AND STENOSIS OF BILATERAL [place] 11/27/2016 ANSON QUINTANILLA Ot I73.9 PERIPHERAL VASCULAR DISEASE, UNSPECIFIED 11/28/2016 LOIS GR MD, Ot L97.122 NON-PRESSURE CHRONIC ULCER OF LEFT THIGH 12/01/2016 LOIS GR MD, Ot I50.21 ACUTE SYSTOLIC (CONGESTIVE) HEART FAILUR 12/01/2016 LOIS GR MD, Ot 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 [facility] 12/01/2016 LOIS GR MD, Ot L97.121 NON-PRS CHRONIC ULCER OF LEFT THIGH LIMI 12/01/2016 LOIS GR MD, Ot L97.122 NON-PRESSURE CHRONIC ULCER OF LEFT THIGH 12/01/2016 LOIS GR MD, Ot N18 .4 CHRONIC KIDNEY DISEASE, STAGE 4 (SEVERE) 12/01/2016 LOIS GR MD, Ot T87.81 DEHISCENCE OF AMPUTATION STUMP 12/03/2016 LOIS GR MD, Ot 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 [facility] 12/03/2016 LOIS GR MD, Ot L97.122 NON-PRESSURE CHRONIC ULCER OF LEFT THIGH 12/03/2016 LOIS GR MD, Ot T65.222A TOXIC EFFECT OF TOBACCO CIGARETTES, SELF 12/03/2016 LOIS GR MD, Ot 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 [facility] 12/03/2016 LOIS GR MD, Ot L97.122 NON-PRESSURE CHRONIC ULCER OF LEFT THIGH 12/03/2016 LOIS GR MD, Ot T65.222A TOXIC EFFECT OF TOBACCO CIGARETTES, SELF 12/05/2016 ANGELA FERRARI, OTTO Mcdonough Ot I11.0 HYPERTENSIVE HEART DISEASE WITH HEART FA 12/05/2016 ANGELA FERRARI, OTTO Mcdonough Ot I50.9 HEART FAILURE, UNSPECIFIED 12/05/2016 MANUEL BASS MD, Ot 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 [facility] 12/05/2016 MANUEL BASS MD, Ot L97.121 NON-PRS CHRONIC ULCER OF LEFT THIGH [place] 12/05/2016 MANUEL BASS MD, Ot L97.122 NON-PRESSURE CHRONIC ULCER OF LEFT THIGH 12/05/2016 MANUEL BASS MD, Ot T87. 81 DEHISCENCE OF AMPUTATION STUMP 12/05/2016 MANUEL BASS MD, Ot Z79. 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 [facility] 12/18/2016 LOIS GR MD, Ot L97.122 NON-PRESSURE CHRONIC ULCER OF LEFT THIGH 12/18/2016 LOIS GR MD, Ot T65.222A TOXIC EFFECT OF TOBACCO CIGARETTES, SELF 12/19/2016 LOIS GR MD, Ot 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 [facility] 12/19/2016 LOIS GR MD, Ot L97.121 NON-PRS CHRONIC ULCER OF LEFT THIGH [place] 12/19/2016 LOIS GR MD, Ot L97.122 NON-PRESSURE CHRONIC ULCER OF LEFT THIGH 12/19/2016 LOIS GR MD, Ot T87.81 DEHISCENCE OF AMPUTATION STUMP 12/22/2016 OTTO MILLER MD Ot I11.0 HYPERTENSIVE HEART DISEASE WITH HEART FA 12/22/2016 OTTO MILLER MD Ot I50.9 HEART FAILURE, UNSPECIFIED 12/22/2016 MANUEL BASS MD, Ot 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 81 DEHISCENCE OF AMPUTATION STUMP 12/22/2016 MANUEL BASS MD Ot Z79. 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 [facility] 12/29/2016 LOIS GR MD, Ot L97.121 NON-PRS CHRONIC ULCER OF LEFT THIGH [place] 12/29/2016 LOIS GR MD, Ot L97.122 NON-PRESSURE CHRONIC ULCER OF LEFT THIGH 12/29/2016 LOIS GR MD, Ot T87.81 DEHISCENCE OF AMPUTATION STUMP 01/01/2017 LOIS GR MD Ot 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 [facility] 01/01/2017 LOIS GR MD, Ot L97.122 NON-PRESSURE CHRONIC ULCER OF LEFT THIGH 01/01/2017 LOIS GR MD, Ot T65.222A TOXIC EFFECT OF TOBACCO CIGARETTES, SELF 01/06/2017 LOIS GR MD, Ot 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 [facility] 01/06/2017 LOIS GR MD, Ot L97.121 NON-PRS CHRONIC ULCER OF LEFT THIGH LIMI 01/06/2017 LOIS GR MD, Ot L97.122 NON-PRESSURE CHRONIC ULCER OF LEFT THIGH 01/06/2017 LOIS GR MD, Ot T87.81 DEHISCENCE OF AMPUTATION STUMP 01/13/2017 LOIS GR MD, Ot 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 [facility] 01/13/2017 LOIS GR MD, Ot L97.122 NON-PRESSURE CHRONIC ULCER OF LEFT THIGH 01/13/2017 LOIS GR MD, Ot T65.222A TOXIC EFFECT OF TOBACCO CIGARETTES, SELF 01/23/2017 LOIS GR MD, Ot 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 [facility] 01/23/2017 LOIS GR MD, Ot L97.121 NON-PRS CHRONIC ULCER OF LEFT THIGH LIM[place] 01/23/2017 LOIS GR MD, Ot L97.122 NON-PRESSURE CHRONIC ULCER OF LEFT THIGH 01/23/2017 LOIS GR MD, Ot T87.81 DEHISCENCE OF AMPUTATION STUMP 01/27/2017 LOIS GR MD, Ot 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 [facility] 01/27/2017 LOIS GR MD, Ot L97.121 NON-PRS CHRONIC ULCER OF LEFT THIGH LIMI 01/27/2017 LOIS GR MD, Ot L97.122 NON-PRESSURE CHRONIC ULCER OF LEFT THIGH 01/27/2017 LOIS GR MD, Ot T87.81 DEHISCENCE OF AMPUTATION STUMP 01/30/2017 MEL WOOD MEDICARE INTERVIEWER Ot 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 [facility] 01/30/2017 MEL WOOD APRN Ot L97.121 NON-PRS CHRONIC ULCER OF LEFT THIGH [place] 01/30/2017 MEL WOOD MEDICARE INTERVIEWER Ot L97.122 NON-PRESSURE CHRONIC ULCER OF LEFT THIGH 01/30/2017 MEL WOOD MEDICARE INTERVIEWER Ot T87.81 DEHISCENCE OF AMPUTATION STUMP 02/02/2017 LOIS GR MD Ot 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 [facility] 02/02/2017 LOIS GR MD, Ot L97.121 NON-PRS CHRONIC ULCER OF LEFT THIGH [place] 02/02/2017 LOIS GR MD, Ot L97.122 NON-PRESSURE CHRONIC ULCER OF LEFT THIGH 02/02/2017 LOIS GR MD, Ot T87.81 DEHISCENCE OF AMPUTATION STUMP 02/23/2017 LOIS GR MD Ot 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 [facility] 02/23/2017 LOIS GR MD Ot L97.121 NON-PRS CHRONIC ULCER OF LEFT THIGH [place]I 02/23/2017 LOIS GR MD Ot L97.122 NON-PRESSURE CHRONIC ULCER OF LEFT THIGH 02/23/2017 LOIS GR MD, Ot T87.81 DEHISCENCE OF AMPUTATION STUMP 02/23/2017 MEL WOOD APRN Ot 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 [facility] 02/23/2017 MEL WOOD APRN Ot L97.121 NON-PRS CHRONIC ULCER OF LEFT THIGH [place] 02/23/2017 MEL WOOD APRN Ot L97.122 NON-PRESSURE CHRONIC ULCER OF LEFT THIGH 02/23/2017 MEL WOOD APRN Ot T87.81 DEHISCENCE OF AMPUTATION STUMP 03/27/2017 MARIIA MEMBRENO MD Ot 397.0 TRICUSPID VALVE DISEASE 03/27/2017 MARIIA MEMBRENO MD Ot 424.0 MITRAL VALVE DISORDER 03/27/2017 MARIIA MEMBRENO MD Ot 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 03/27/2017 MARIIA MEMBRENO MD Ot V67.09 SURGERY FOLLOW-UP, OTHER SURGERY 03/27/2017 FABI CABA MD Ot 414.00 CORON ATHEROSCLER NOS TYPE VESSEL, NATIV 03/27/2017 FABI CABA MD Ot 496 CHR AIRWAY OBSTRUCT NEC 03/27/2017 FABI CABA MD Ot 414.00 CORON ATHEROSCLER NOS TYPE VESSEL, NATIV 03/27/2017 FABI CABA MD Ot 496 CHR AIRWAY OBSTRUCT NEC 03/27/2017 FABI CABA MD Ot 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 61 ANTICOAGULANTS,LT,CURRENT USE 03/27/2017 MANUEL BASS MD Ot V58. 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 03/27/2017 MIKY CAVAZOS MEDICARE INTERVIEWER Ot 443.9 PERIPH VASCULAR DIS NOS 03/27/2017 MIKY CAVAZOS MEDICARE INTERVIEWER Ot 729.5 PAIN IN LIMB 03/27/2017 ANGELA FERRARI, OTTO Mcdonough Ot L03.032 CELLULITIS OF LEFT TOE 03/27/2017 MARINA ALMANZA APRN Ot E78.5 HYPERLIPIDEMIA, UNSPECIFIED 03/27/2017 MARINA ALMANZA APRN Ot I1 0 ESSENTIAL (PRIMARY) HYPERTENSION 03/27/2017 MARINA ALMANZA APRN Ot I25.10 ATHSCL HEART DISEASE OF [place] CORONARY 03/27/2017 MARINA ALMANZA APRN Ot I65.23 OCCLUSION AND STENOSIS OF BILATERAL [place]DE[place] 03/27/2017 MARINA ALMANZA APRN Ot L03.032 CELLULITIS OF LEFT TOE 03/27/2017 MANUEL BASS MD Ot E78. 2 MIXED HYPERLIPIDEMIA 03/27/2017 MARINA ALMANZA APRN Ot L03.116 CELLULITIS OF LEFT LOWER LIMB 03/27/2017 MARINA ALMANZA APRN Ot R93.7 ABNORMAL FINDINGS ON DIAGNOSTIC IMAGING 03/27/2017 MARINA ALMANZA APRN Ot Z51.81 ENCOUNTER FOR THERAPEUTIC DRUG LEVEL MON 03/27/2017 MARINA ALMANZA APRN Ot Z79.01 GAS PUMPER (CURRENT) USE OF ANTICOAGULANT 03/27/2017 MANUEL BASS MD Ot E78. 5 HYPERLIPIDEMIA, UNSPECIFIED 03/27/2017 MANUEL BASS MD Ot I10 ESSENTIAL (PRIMARY) HYPERTENSION 03/27/2017 MANUEL BASS MD Ot I25. 10 ATHSCL HEART DISEASE OF [place] CORONARY 03/27/2017 MARINA ALMANZA APRN Ot Z51.81 ENCOUNTER FOR THERAPEUTIC DRUG LEVEL MON 03/27/2017 CAMIMARINA ISAAC Ot Z79.01 SHELTER (CURRENT) USE OF ANTICOAGULANT 03/27/2017 LOIS GR MD, Ot I70.245 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 [facility] 03/27/2017 LOIS GR MD, Ot I87.323 CHRONIC VENOUS HTN W INFLAMMATION OF JUL[place] 03/27/2017 LOIS GR MD, Ot L97.523 NON-PRS CHRONIC ULCER OTH PRT LEFT FOOT 03/27/2017 OTTO MILLER MD, Ot Z51.81 ENCOUNTER FOR THERAPEUTIC DRUG LEVEL MON 03/27/2017 OTTO MILLER MD, Ot Z79.01 GAS PUMPER (CURRENT) USE OF ANTICOAGULANT 03/27/2017 OTTO MILLER MD, Ot Z51.81 ENCOUNTER FOR THERAPEUTIC DRUG LEVEL MON 03/27/2017 OTTO MILLER MD, Ot Z79.01 SHELTER (CURRENT) USE OF ANTICOAGULANT 03/27/2017 OTTO MILLER MD, Ot Z95.2 PRESENCE OF PROSTHETIC HEART VALVE 03/27/2017 LOIS GR MD, Ot 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 [facility] 03/27/2017 LOIS GR MD, Ot L97.123 NON-PRS CHRONIC ULCER OF LEFT THIGH W NE 03/27/2017 LOIS GR MD, Ot R54 AGE-RELATED PHYSICAL DEBILITY 03/27/2017 LOIS GR MD, Ot T86.821 SKIN GRAFT (ALLOGRAFT) (AUTOGRAFT) FAILU 03/27/2017 MANUEL BASS MD, Ot Z79. 01 SHELTER (CURRENT) USE OF ANTICOAGULANT 03/27/2017 MANUEL BASS MD, Ot Z95. 2 PRESENCE OF PROSTHETIC HEART VALVE 03/27/2017 MANUEL BASS MD, Ot Z51. 81 ENCOUNTER FOR THERAPEUTIC DRUG LEVEL MON 03/27/2017 MANUEL BASS MD, Ot Z79. 01 GAS PUMPER (CURRENT) USE OF ANTICOAGULANT 03/27/2017 MANUEL BASS MD, Ot Z51. 81 ENCOUNTER FOR THERAPEUTIC DRUG LEVEL MON 03/27/2017 MANUEL BASS MD, Ot Z79. 01 SHELTER (CURRENT) USE OF ANTICOAGULANT 03/27/2017 LOIS GR MD, Ot 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 [facility] 03/27/2017 LOIS GR MD, Ot L97.122 NON-PRESSURE CHRONIC ULCER OF LEFT THIGH 03/27/2017 LOIS GR MD, Ot T86.821 SKIN GRAFT (ALLOGRAFT) (AUTOGRAFT) FAILU 03/27/2017 LOIS GR MD, Ot T87.81 DEHISCENCE OF AMPUTATION STUMP 03/27/2017 MANUEL BASS MD, Ot Z51. 81 ENCOUNTER FOR THERAPEUTIC DRUG LEVEL MON 03/27/2017 MANUEL BASS MD, Ot Z79. 01 SHELTER (CURRENT) USE OF ANTICOAGULANT 03/27/2017 LOIS GR MD, Ot I70 .1 ATHEROSCLEROSIS OF RENAL ARTERY 03/27/2017 LOIS GR MD, Ot I70.203 UNSP 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 EXTREMITI 03/27/2017 LOIS GR MD, Ot I77 .1 STRICTURE OF ARTERY 03/27/2017 LOIS GR MD, Ot L97.123 NON-PRS CHRONIC ULCER OF LEFT THIGH W NE 03/27/2017 LOIS GR MD, Ot T87.81 DEHISCENCE OF AMPUTATION STUMP 03/27/2017 LOIS GR MD, Ot 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 C 03/27/2017 LOIS GR MD, Ot L97.123 NON-PRS CHRONIC ULCER OF LEFT THIGH W NE 03/27/2017 LOIS GR MD, Ot T87.81 DEHISCENCE OF AMPUTATION STUMP 03/27/2017 MANUEL BASS MD, Ot Z51. 81 ENCOUNTER FOR THERAPEUTIC DRUG LEVEL MON 03/27/2017 MANUEL BASS MD, Ot Z79. 01 GAS PUMPER (CURRENT) USE OF ANTICOAGULANT 03/27/2017 MARKUS FERRARI, LAURA Lord Ot I73 .9 PERIPHERAL VASCULAR DISEASE, UNSPECIFIED 03/27/2017 MANUEL BASS MD, Ot Z51. 81 ENCOUNTER FOR THERAPEUTIC DRUG LEVEL MON 03/27/2017 MANUEL BASS MD, Ot Z79. 01 SHELTER (CURRENT) USE OF ANTICOAGULANT 03/27/2017 LOIS GR MD, Ot L97.122 NON-PRESSURE CHRONIC ULCER OF LEFT THIGH 03/27/2017 LOIS GR MD, Ot 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 C 03/27/2017 LOIS GR MD, Ot L97.123 NON-PRS CHRONIC ULCER OF LEFT THIGH W NE 03/27/2017 LOIS GR MD, Ot T87.81 DEHISCENCE OF AMPUTATION STUMP 03/27/2017 LOIS GR MD, Ot 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 [facility] 03/27/2017 LOIS GR MD, Ot L97.122 NON-PRESSURE CHRONIC ULCER OF LEFT THIGH 03/27/2017 LOIS GR MD, Ot T87.81 DEHISCENCE OF AMPUTATION STUMP 03/27/2017 ANSON QUINTANILLA Ot E78.2 MIXED HYPERLIPIDEMIA 03/27/2017 ANSON QUINTANILLA Ot I25.10 ATHSCL HEART DISEASE OF [place] CORONARY 03/27/2017 ANSON QUINTANILLA Ot I65.23 OCCLUSION AND STENOSIS OF BILATERAL [place] 03/27/2017 ANSON QUINTANILLA Ot I73.9 PERIPHERAL VASCULAR DISEASE, UNSPECIFIED 03/27/2017 OTTO MILLER MD, Ot L97.122 NON-PRESSURE CHRONIC ULCER OF LEFT THIGH 03/27/2017 OTTO MILLER MD, Ot M62.838 OTHER MUSCLE SPASM 03/27/2017 LOIS GR MD, Ot 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 [facility] 03/27/2017 LOIS RG MD, Ot L97.121 NON-PRS CHRONIC ULCER OF LEFT THIGH LIMI 03/27/2017 LOIS GR MD, Ot L97.122 NON-PRESSURE CHRONIC ULCER OF LEFT THIGH 03/27/2017 LOIS GR MD, Ot T87.81 DEHISCENCE OF AMPUTATION STUMP 03/27/2017 LOIS GR MD, Ot I50.21 ACUTE SYSTOLIC (CONGESTIVE) HEART FAILUR 03/27/2017 LOIS GR MD, Ot 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 [facility] 03/27/2017 LOIS GR MD, Ot L97.121 NON-PRS CHRONIC ULCER OF LEFT THIGH LIMI 03/27/2017 LOIS GR MD, Ot L97.122 NON-PRESSURE CHRONIC ULCER OF LEFT THIGH 03/27/2017 LOIS GR MD, Ot N18 .4 CHRONIC KIDNEY DISEASE, STAGE 4 (SEVERE) 03/27/2017 LOIS GR MD, Ot T87.81 DEHISCENCE OF AMPUTATION STUMP 03/27/2017 LOIS GR MD, Ot 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 [facility] 03/27/2017 LOIS GR MD, Ot L97.121 NON-PRS CHRONIC ULCER OF LEFT THIGH LIMI 03/27/2017 LOIS GR MD, Ot L97.122 NON-PRESSURE CHRONIC ULCER OF LEFT THIGH 03/27/2017 LOIS GR MD, Ot T87.81 DEHISCENCE OF AMPUTATION STUMP 03/27/2017 MEL WOOD APRN Ot 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 [facility] 03/27/2017 MEL WOOD MEDICARE INTERVIEWER Ot L97.121 NON-PRS CHRONIC ULCER OF LEFT THIGH LIMI 03/27/2017 MEL WOOD APRN Ot L97.122 NON-PRESSURE CHRONIC ULCER OF LEFT THIGH 03/27/2017 MEL WOOD APRN Ot T87.81 DEHISCENCE OF AMPUTATION STUMP 03/27/2017 LOIS GR MD, Ot 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 [facility] 03/27/2017 LOIS GR MD, Ot L97.121 NON-PRS CHRONIC ULCER OF LEFT THIGH LIMI 03/27/2017 LOIS GR MD, Ot L97.122 NON-PRESSURE CHRONIC ULCER OF LEFT THIGH 03/27/2017 LOIS GR MD, Ot T87.81 DEHISCENCE OF AMPUTATION STUMP 03/27/2017 LOIS GR MD Ot L97.122 NON-PRESSURE CHRONIC ULCER OF LEFT THIGH 03/27/2017 OTTO MILLER MD Ot I11.0 HYPERTENSIVE HEART DISEASE WITH HEART FA 03/27/2017 OTTO MILLER MD Ot I50.9 HEART FAILURE, UNSPECIFIED 03/27/2017 LOIS GR MD Ot 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 [facility] 03/27/2017 LOIS GR MD, Ot L97.121 NON-PRS CHRONIC ULCER OF LEFT THIGH LIMI 03/27/2017 LOIS GR MD, Ot L97.122 NON-PRESSURE CHRONIC ULCER OF LEFT THIGH 03/27/2017 LOIS GR MD, Ot T87.81 DEHISCENCE OF AMPUTATION STUMP 03/27/2017 MANUEL BASS MD Ot 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 [facility] 03/27/2017 MANUEL BASS MD, Ot L97.121 NON-PRS CHRONIC ULCER OF LEFT THIGH LIMI 03/27/2017 MANUEL BASS MD, Ot L97.122 NON-PRESSURE CHRONIC ULCER OF LEFT THIGH 03/27/2017 MANUEL BASS MD, Ot T87. 81 DEHISCENCE OF AMPUTATION STUMP 03/27/2017 MANUEL BASS MD, Ot Z79. 01 GAS PUMPER (CURRENT) USE OF ANTICOAGULANT 03/27/2017 LOIS GR MD, Ot 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 [facility] 03/27/2017 LOIS GR MD, Ot L97.122 NON-PRESSURE CHRONIC ULCER OF LEFT THIGH 03/27/2017 LOIS GR MD, Ot T65.222A TOXIC EFFECT OF TOBACCO CIGARETTES, SELF 03/27/2017 MANUEL BASS MD, Ot Z51. 81 ENCOUNTER FOR THERAPEUTIC DRUG LEVEL [facility] 03/27/2017 MANUEL BASS MD, Ot Z79. 01 GAS PUMPER (CURRENT) USE OF ANTICOAGULANT 03/27/2017 MANUEL BASS MD, Ot Z95. 2 PRESENCE OF PROSTHETIC HEART VALVE 03/27/2017 LOIS GR MD, Ot 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 [facility] 03/27/2017 LOIS GR MD, Ot L97.122 NON-PRESSURE CHRONIC ULCER OF LEFT THIGH 03/27/2017 LOIS GR MD, Ot T65.222A TOXIC EFFECT OF TOBACCO CIGARETTES, SELF 03/30/2017 OTTO MILLER MD Ot S69.91XA UNSP INJURY OF RIGHT WRIST, HAND AND FIN 04/07/2017 LOIS GR MD, Ot 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 [facility] 04/07/2017 LOIS GR MD, Ot L97.121 NON-PRS CHRONIC ULCER OF LEFT THIGH LIMI 04/07/2017 LOIS GR MD, Ot L97.122 NON-PRESSURE CHRONIC ULCER OF LEFT THIGH 04/07/2017 LOIS GR MD, Ot T87.81 DEHISCENCE OF AMPUTATION STUMP 2017 OTTO MILLER MD, Ot S69.91XA UNSP INJURY OF RIGHT WRIST, HAND AND FIN 2017 OTTO MILLER MD Ot S69.91XA UNSP INJURY OF RIGHT WRIST, HAND AND FIN 06/03/2017 MARIIA MEMBRENO MD Ot 397.0 TRICUSPID VALVE DISEASE 06/03/2017 MARIIA MEMBRENO MD Ot 424.0 MITRAL VALVE DISORDER 06/03/2017 MARIIA MEMBRENO MD Ot 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 06/03/2017 MARIIA MEMBRENO MD Ot V67.09 SURGERY FOLLOW-UP, OTHER SURGERY 06/03/2017 GERTRUDIS FERRARI, FABI Pisano Ot 414.00 CORON ATHEROSCLER NOS TYPE VESSEL, NATIV 06/03/2017 GERTRUDIS FERRARI, FABI Pisano Ot 496 CHR AIRWAY OBSTRUCT NEC 06/03/2017 FABI CABA MD Ot 414.00 CORON ATHEROSCLER NOS TYPE VESSEL, NATIV 06/03/2017 FABI CABA MD Ot 496 CHR AIRWAY OBSTRUCT NEC 06/03/2017 FABI CABA MD Ot 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 61 ANTICOAGULANTS,LT,CURRENT USE 06/03/2017 MANUEL BASS MD Ot V58. 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 06/03/2017 MIKY CAVAZOS MEDICARE INTERVIEWER Ot 443.9 PERIPH VASCULAR DIS NOS 06/03/2017 MIKY CAVAZOS MEDICARE INTERVIEWER Ot 729.5 PAIN IN LIMB 06/03/2017 ANGELA FERRARI, OTTO Mcdonough Ot L03.032 CELLULITIS OF LEFT TOE 06/03/2017 MARINA ALMANZA MEDICARE INTERVIEWER Ot E78.5 HYPERLIPIDEMIA, UNSPECIFIED 06/03/2017 MARINA ALMANZA APRN Ot I1 0 ESSENTIAL (PRIMARY) HYPERTENSION 06/03/2017 MARINA ALMANZA APRN Ot I25.10 ATHSCL HEART DISEASE OF [place] CORONARY 06/03/2017 MARINA ALMANZA APRN Ot I65.23 OCCLUSION AND STENOSIS OF BILATERAL [place] 06/03/2017 MARINA ALMANZA APRN Ot L03.032 CELLULITIS OF LEFT TOE 06/03/2017 MANUEL BASS MD Ot E78. 2 MIXED HYPERLIPIDEMIA 06/03/2017 MARINA ALMANZA APRN Ot L03.116 CELLULITIS OF LEFT LOWER LIMB 06/03/2017 MARINA ALMANZA APRN Ot R93.7 ABNORMAL FINDINGS ON DIAGNOSTIC IMAGING 06/03/2017 MARINA ALMANZA APRN Ot Z51.81 ENCOUNTER FOR THERAPEUTIC DRUG LEVEL MON 06/03/2017 MARINA ALMANZA APRN Ot Z79.01 SHELTER (CURRENT) USE OF ANTICOAGULANT 06/03/2017 MANUEL BASS MD Ot E78. 5 HYPERLIPIDEMIA, UNSPECIFIED 06/03/2017 MANUEL BASS MD Ot I10 ESSENTIAL (PRIMARY) HYPERTENSION 06/03/2017 MANUEL BASS MD Ot I25. 10 ATHSCL HEART DISEASE OF [place] CORONARY 06/03/2017 MARINA ALMANZA APRN Ot Z51.81 ENCOUNTER FOR THERAPEUTIC DRUG LEVEL MON 06/03/2017 MARINA ALMANZA APRN Ot Z79.01 SHELTER (CURRENT) USE OF ANTICOAGULANT 06/03/2017 LOIS GR MD Ot 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 06/03/2017 LOIS GR MD Ot I87.323 CHRONIC VENOUS HTN W INFLAMMATION OF [place] 06/03/2017 LOIS GR MD Ot L97.523 NON-PRS CHRONIC ULCER OTH PRT LEFT FOOT 06/03/2017 OTTO MILLER MD Ot Z51.81 ENCOUNTER FOR THERAPEUTIC DRUG LEVEL MON 06/03/2017 OTTO MILLER MD Ot Z79.01 GAS PUMPER (CURRENT) USE OF ANTICOAGULANT 06/03/2017 OTTO MILLER MD Ot Z51.81 ENCOUNTER FOR THERAPEUTIC DRUG LEVEL MON 06/03/2017 OTTO MILLER MD Ot Z79.01 SHELTER (CURRENT) USE OF ANTICOAGULANT 06/03/2017 OTTO MILLER MD Ot Z95.2 PRESENCE OF PROSTHETIC HEART VALVE 06/03/2017 LOIS GR MD, Ot 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 06/03/2017 LOIS GR MD, Ot L97.123 NON-PRS CHRONIC ULCER OF LEFT THIGH W NE 06/03/2017 LOIS GR MD, Ot R54 AGE-RELATED PHYSICAL DEBILITY 06/03/2017 LOIS GR MD, Ot T86.821 SKIN GRAFT (ALLOGRAFT) (AUTOGRAFT) FAILU 06/03/2017 MANUEL BASS MD, Ot Z79. 01 GAS PUMPER (CURRENT) USE OF ANTICOAGULANT 06/03/2017 MANUEL BASS MD, Ot Z95. 2 PRESENCE OF PROSTHETIC HEART VALVE 06/03/2017 MANUEL BASS MD, Ot Z51. 81 ENCOUNTER FOR THERAPEUTIC DRUG LEVEL MON 06/03/2017 MANUEL BASS MD, Ot Z79. 01 GAS PUMPER (CURRENT) USE OF ANTICOAGULANT 06/03/2017 MANUEL BASS MD, Ot Z51. 81 ENCOUNTER FOR THERAPEUTIC DRUG LEVEL MON 06/03/2017 MANUEL BASS MD, Ot Z79. 01 GAS PUMPER (CURRENT) USE OF ANTICOAGULANT 06/03/2017 LOIS GR MD, Ot 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 C 06/03/2017 LOIS GR MD, Ot L97.122 NON-PRESSURE CHRONIC ULCER OF LEFT THIGH 06/03/2017 LOIS GR MD, Ot T86.821 SKIN GRAFT (ALLOGRAFT) (AUTOGRAFT) FAILU 06/03/2017 LOIS GR MD, Ot T87.81 DEHISCENCE OF AMPUTATION STUMP 06/03/2017 MANUEL BASS MD, Ot Z51. 81 ENCOUNTER FOR THERAPEUTIC DRUG LEVEL MON 06/03/2017 MANUEL BASS MD, Ot Z79. 01 GAS PUMPER (CURRENT) USE OF ANTICOAGULANT 06/03/2017 LOIS GR MD, Ot I70 .1 ATHEROSCLEROSIS OF RENAL ARTERY 06/03/2017 LOIS GR MD, Ot I70.203 UNSP 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 EXTREMITI 06/03/2017 LOIS GR MD, Ot I77 .1 STRICTURE OF ARTERY 06/03/2017 LOIS GR MD, Ot L97.123 NON-PRS CHRONIC ULCER OF LEFT THIGH W NE 06/03/2017 LOIS GR MD, Ot T87.81 DEHISCENCE OF AMPUTATION STUMP 06/03/2017 LOIS GR MD, Ot 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 [facility] 06/03/2017 LOIS GR MD, Ot L97.123 NON-PRS CHRONIC ULCER OF LEFT THIGH W NE 06/03/2017 LOIS GR MD, Ot T87.81 DEHISCENCE OF AMPUTATION STUMP 06/03/2017 MANUEL BASS MD Ot Z51. 81 ENCOUNTER FOR THERAPEUTIC DRUG LEVEL MON 06/03/2017 MANUEL BASS MD Ot Z79. 01 GAS PUMPER (CURRENT) USE OF ANTICOAGULANT 06/03/2017 LAURA APARICIO MD Ot I73 .9 PERIPHERAL VASCULAR DISEASE, UNSPECIFIED 06/03/2017 MANUEL BASS MD, Ot Z51. 81 ENCOUNTER FOR THERAPEUTIC DRUG LEVEL MON 06/03/2017 MANUEL BASS MD, Ot Z79. 01 GAS PUMPER (CURRENT) USE OF ANTICOAGULANT 06/03/2017 LOIS GR MD, Ot L97.122 NON-PRESSURE CHRONIC ULCER OF LEFT THIGH 06/03/2017 LOIS GR MD, Ot 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 [facility] 06/03/2017 LOIS GR MD Ot L97.123 NON-PRS CHRONIC ULCER OF LEFT THIGH W NE 06/03/2017 LOIS GR MD, Ot T87.81 DEHISCENCE OF AMPUTATION STUMP 06/03/2017 LOIS GR MD Ot 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 [facility] 06/03/2017 LOIS GR MD, Ot L97.122 NON-PRESSURE CHRONIC ULCER OF LEFT THIGH 06/03/2017 LOIS GR MD, Ot T87.81 DEHISCENCE OF AMPUTATION STUMP 06/03/2017 ANSON QUINTANILLA Ot E78.2 MIXED HYPERLIPIDEMIA 06/03/2017 ANSON QUINTANILLA Ot I25.10 ATHSCL HEART DISEASE OF [place] CORONARY 06/03/2017 ANSON QUINTANILLA Ot I65.23 OCCLUSION AND STENOSIS OF BILATERAL [place] 06/03/2017 ANSON QUINTANILLA Ot I73.9 PERIPHERAL VASCULAR DISEASE, UNSPECIFIED 06/03/2017 ANGELA FERRARI, OTTO Mcdonough Ot L97.122 NON-PRESSURE CHRONIC ULCER OF LEFT THIGH 06/03/2017 ANGELA FERRARI, OTTO Mcdonough Ot M62.838 OTHER MUSCLE SPASM 06/03/2017 LOIS GR MD, Ot 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 [facility] 06/03/2017 LOIS GR MD, Ot L97.121 NON-PRS CHRONIC ULCER OF LEFT THIGH LIMI 06/03/2017 LOIS GR MD, Ot L97.122 NON-PRESSURE CHRONIC ULCER OF LEFT THIGH 06/03/2017 LOIS GR MD, Ot T87.81 DEHISCENCE OF AMPUTATION STUMP 06/03/2017 LOIS GR MD, Ot I50.21 ACUTE SYSTOLIC (CONGESTIVE) HEART FAILUR 06/03/2017 LOIS GR MD, Ot 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 [facility] 06/03/2017 LOIS GR MD, Ot L97.121 NON-PRS CHRONIC ULCER OF LEFT THIGH LIMI 06/03/2017 LOIS GR MD, Ot L97.122 NON-PRESSURE CHRONIC ULCER OF LEFT THIGH 06/03/2017 LOIS GR MD, Ot N18 .4 CHRONIC KIDNEY DISEASE, STAGE 4 (SEVERE) 06/03/2017 LOIS GR MD, Ot T87.81 DEHISCENCE OF AMPUTATION STUMP 06/03/2017 LOIS GR MD, Ot 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 [facility] 06/03/2017 LOIS GR MD, Ot L97.121 NON-PRS CHRONIC ULCER OF LEFT THIGH LIMI 06/03/2017 LOIS GR MD, Ot L97.122 NON-PRESSURE CHRONIC ULCER OF LEFT THIGH 06/03/2017 LOIS GR MD, Ot T87.81 DEHISCENCE OF AMPUTATION STUMP 06/03/2017 MEL WOOD APRN Ot 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 [facility] 06/03/2017 MEL WOOD APRN Ot L97.121 NON-PRS CHRONIC ULCER OF LEFT THIGH LIMI 06/03/2017 MEL WOOD APRN Ot L97.122 NON-PRESSURE CHRONIC ULCER OF LEFT THIGH 06/03/2017 MEL WOOD APRN Ot T87.81 DEHISCENCE OF AMPUTATION STUMP 06/03/2017 LOIS GR MD, Ot 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 [facility] 06/03/2017 LOIS GR MD, Ot L97.121 NON-PRS CHRONIC ULCER OF LEFT THIGH LIMI 06/03/2017 LOIS GR MD, Ot L97.122 NON-PRESSURE CHRONIC ULCER OF LEFT THIGH 06/03/2017 LOIS GR MD, Ot T87.81 DEHISCENCE OF AMPUTATION STUMP 06/03/2017 LOIS GR MD, Ot L97.122 NON-PRESSURE CHRONIC ULCER OF LEFT THIGH 06/03/2017 OTTO MILLER MD Ot I11.0 HYPERTENSIVE HEART DISEASE WITH HEART FA 06/03/2017 OTTO MILLER MD Ot I50.9 HEART FAILURE, UNSPECIFIED 06/03/2017 LOIS GR MD, Ot 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 [facility] 06/03/2017 LOIS GR MD, Ot L97.121 NON-PRS CHRONIC ULCER OF LEFT THIGH [place] 06/03/2017 LOIS GR MD, Ot L97.122 NON-PRESSURE CHRONIC ULCER OF LEFT THIGH 06/03/2017 LOIS GR MD, Ot T87.81 DEHISCENCE OF AMPUTATION STUMP 06/03/2017 MANUEL BASS MD, Ot 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 [facility] 06/03/2017 MANUEL BASS MD, Ot L97.121 NON-PRS CHRONIC ULCER OF LEFT THIGH [place] 06/03/2017 MANUEL BASS MD, Ot L97.122 NON-PRESSURE CHRONIC ULCER OF LEFT THIGH 06/03/2017 MANUEL BASS MD, Ot T87. 81 DEHISCENCE OF AMPUTATION STUMP 06/03/2017 MANUEL BASS MD, Ot Z79. 01 SHELTER (CURRENT) USE OF ANTICOAGULANT 06/03/2017 LOIS GR MD, Ot 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 [facility] 06/03/2017 LOIS GR MD, Ot L97.122 NON-PRESSURE CHRONIC ULCER OF LEFT THIGH 06/03/2017 LOIS GR MD, Ot T65.222A TOXIC EFFECT OF TOBACCO CIGARETTES, SELF 06/03/2017 MANUEL BASS MD, Ot Z51. 81 ENCOUNTER FOR THERAPEUTIC DRUG LEVEL MON 06/03/2017 MANUEL BASS MD, Ot Z79. 01 SHELTER (CURRENT) USE OF ANTICOAGULANT 06/03/2017 MANUEL BASS MD Ot Z95. 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 07/03/2017 MARINA ALMANZA MEDICARE INTERVIEWER Ot R53.1 WEAKNESS 07/03/2017 MARINA ALMANZA MEDICARE INTERVIEWER Ot 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 07/08/2017 MARIIA MEMBRENO MD Ot 397.0 TRICUSPID VALVE DISEASE 07/08/2017 MARIIA MEMBRENO MD Ot 424.0 MITRAL VALVE DISORDER 07/08/2017 MARIIA MEMBRENO MD Ot 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 07/08/2017 MARIIA MEMBRENO MD Ot V67.09 SURGERY FOLLOW-UP, OTHER SURGERY 07/08/2017 FABI CABA MD Ot 414.00 CORON ATHEROSCLER NOS TYPE VESSEL, NATIV 07/08/2017 FABI CABA MD Ot 496 CHR AIRWAY OBSTRUCT NEC 07/08/2017 FABI CABA MD Ot 414.00 CORON ATHEROSCLER NOS TYPE VESSEL, NATIV 07/08/2017 FABI CABA MD Ot 496 CHR AIRWAY OBSTRUCT NEC 07/08/2017 FABI CABA MD Ot 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 07/08/2017 FABI CABA MD Ot 790.29 OTHER ABNORMAL GLUCOSE 07/08/2017 FABI CABA MD Ot 414.00 CORON ATHEROSCLER NOS TYPE VESSEL, NATIV 07/08/2017 FABI CABA MD Ot 428.0 CONGESTIVE HEART FAILURE NOS 07/08/2017 MANUEL BASS MD Ot V58. 61 ANTICOAGULANTS,LT,CURRENT USE 07/08/2017 MANUEL BASS MD Ot V58. 83 ENCOUNTER FOR THERAPEUTIC DRUG MONITORIN 07/08/2017 Ot V58.61 ANTICOAGULANTS,LT,CURRENT USE 07/08/2017 Ot V58.83 ENC OUNTER FOR THERAPEUTIC DRUG MONITORIN 07/08/2017 Ot 401.9 HYPE RTENSION NOS 07/08/2017 Ot 414.00 COR ON ATHEROSCLER NOS TYPE VESSEL, NATIV 07/08/2017 Ot 433.10 CAR OTID ARTERY OCCLUSION W O CEREBRAL IN 07/08/2017 Ot 443.9 GAUTAM PH VASCULAR DIS NOS 07/08/2017 MIKY CAVAZOS MEDICARE INTERVIEWER Ot 443.9 PERIPH VASCULAR DIS NOS 07/08/2017 MIKY CAVAZOS MEDICARE INTERVIEWER Ot 729.5 PAIN IN LIMB 07/08/2017 ANGELA FERRARI, OTTO Mcdonough Ot L03.032 CELLULITIS OF LEFT TOE 07/08/2017 MARINA ALMANZA APRN Ot E78.5 HYPERLIPIDEMIA, UNSPECIFIED 07/08/2017 MARINA ALMANZA APRN Ot I1 0 ESSENTIAL (PRIMARY) HYPERTENSION 07/08/2017 MARINA ALMANZA APRN Ot I25.10 ATHSCL HEART DISEASE OF [place] CORONARY 07/08/2017 MARINA ALMANZA APRN Ot I65.23 OCCLUSION AND STENOSIS OF BILATERAL [place] 07/08/2017 MARINA ALMANZA APRN Ot L03.032 CELLULITIS OF LEFT TOE 07/08/2017 MANUEL BASS MD Ot E78. 2 MIXED HYPERLIPIDEMIA 07/08/2017 MARINA ALMANZA APRN Ot L03.116 CELLULITIS OF LEFT LOWER LIMB 07/08/2017 MARINA ALMANZA APRN Ot R93.7 ABNORMAL FINDINGS ON DIAGNOSTIC IMAGING 07/08/2017 MARINA ALMANZA APRN Ot Z51.81 ENCOUNTER FOR THERAPEUTIC DRUG LEVEL MON 07/08/2017 MARINA ALMANZA APRN Ot Z79.01 SHELTER (CURRENT) USE OF ANTICOAGULANT 07/08/2017 MANUEL BASS MD Ot E78. 5 HYPERLIPIDEMIA, UNSPECIFIED 07/08/2017 MANUEL BASS MD Ot I10 ESSENTIAL (PRIMARY) HYPERTENSION 07/08/2017 MANUEL BASS MD Ot I25. 10 ATHSCL HEART DISEASE OF [place] CORONARY 07/08/2017 MARINA ALMANZA APRN Ot Z51.81 ENCOUNTER FOR THERAPEUTIC DRUG LEVEL MON 07/08/2017 MARINA ALMANZA APRN Ot Z79.01 SHELTER (CURRENT) USE OF ANTICOAGULANT 07/08/2017 LOIS GR MD, Ot I70.245 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 [facility] 07/08/2017 LOIS GR MD, Ot I87.323 CHRONIC VENOUS HTN W INFLAMMATION OF [place] 07/08/2017 LOIS GR MD, Ot L97.523 NON-PRS CHRONIC ULCER OTH PRT LEFT FOOT 07/08/2017 OTTO MILLER MD, Ot Z51.81 ENCOUNTER FOR THERAPEUTIC DRUG LEVEL MON 07/08/2017 OTTO MILLER MD, Ot Z79.01 SHELTER (CURRENT) USE OF ANTICOAGULANT 07/08/2017 OTTO MILLER MD, Ot Z51.81 ENCOUNTER FOR THERAPEUTIC DRUG LEVEL MON 07/08/2017 OTTO MILLER MD, Ot Z79.01 SHELTER (CURRENT) USE OF ANTICOAGULANT 07/08/2017 OTTO MILLER MD, Ot Z95.2 PRESENCE OF PROSTHETIC HEART VALVE 07/08/2017 LOIS GR MD, Ot 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 [facility] 07/08/2017 LOIS GR MD, Ot L97.123 NON-PRS CHRONIC ULCER OF LEFT THIGH W NE 07/08/2017 LOIS GR MD, Ot R54 AGE-RELATED PHYSICAL DEBILITY 07/08/2017 LOIS GR MD, Ot T86.821 SKIN GRAFT (ALLOGRAFT) (AUTOGRAFT) FAILU 07/08/2017 MANUEL BASS MD, Ot Z79. 01 GAS PUMPER (CURRENT) USE OF ANTICOAGULANT 07/08/2017 MANUEL BASS MD, Ot Z95. 2 PRESENCE OF PROSTHETIC HEART VALVE 07/08/2017 MANUEL BASS MD, Ot Z51. 81 ENCOUNTER FOR THERAPEUTIC DRUG LEVEL MON 07/08/2017 MANUEL BASS MD, Ot Z79. 01 SHELTER (CURRENT) USE OF ANTICOAGULANT 07/08/2017 MANUEL BASS MD, Ot Z51. 81 ENCOUNTER FOR THERAPEUTIC DRUG LEVEL MON 07/08/2017 MANUEL BASS MD, Ot Z79. 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 81 ENCOUNTER FOR THERAPEUTIC DRUG LEVEL MON 07/08/2017 MANUEL BASS MD, Ot Z79. 01 GAS PUMPER (CURRENT) USE OF ANTICOAGULANT 07/08/2017 LOIS GR MD, Ot I70 .1 ATHEROSCLEROSIS OF RENAL ARTERY 07/08/2017 LOIS GR MD, Ot I70.203 UNSP 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 EXTREMITI 07/08/2017 LOIS GR MD, Ot I77 .1 STRICTURE OF ARTERY 07/08/2017 LOIS GR MD, Ot L97.123 NON-PRS CHRONIC ULCER OF LEFT THIGH W MO 07/08/2017 LOIS GR MD, Ot T87.81 DEHISCENCE OF AMPUTATION STUMP 07/08/2017 LOIS GR MD, Ot 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 [facility] 07/08/2017 LOIS GR MD, Ot L97.123 NON-PRS CHRONIC ULCER OF LEFT THIGH W MO 07/08/2017 LOIS GR MD, Ot T87.81 DEHISCENCE OF AMPUTATION STUMP 07/08/2017 MANUEL BASS MD, Ot Z51. 81 ENCOUNTER FOR THERAPEUTIC DRUG LEVEL MON 07/08/2017 MANUEL BASS MD, Ot Z79. 01 SHELTER (CURRENT) USE OF ANTICOAGULANT 07/08/2017 LAURA APARICIO MD Ot I73 .9 PERIPHERAL VASCULAR DISEASE, UNSPECIFIED 07/08/2017 MANUEL BASS MD, Ot Z51. 81 ENCOUNTER FOR THERAPEUTIC DRUG LEVEL MON 07/08/2017 MANUEL BASS MD, Ot Z79. 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 [facility] 07/08/2017 LOIS GR MD, Ot L97.123 NON-PRS CHRONIC ULCER OF LEFT THIGH W NE 07/08/2017 LOIS GR MD, Ot T87.81 DEHISCENCE OF AMPUTATION STUMP 07/08/2017 LOIS GR MD, Ot 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 [facility] 07/08/2017 LOIS GR MD, Ot L97.122 NON-PRESSURE CHRONIC ULCER OF LEFT THIGH 07/08/2017 LOIS GR MD, Ot T87.81 DEHISCENCE OF AMPUTATION STUMP 07/08/2017 ANSON QUINTANILLA Ot E78.2 MIXED HYPERLIPIDEMIA 07/08/2017 ANSON QUINTANILLA Ot I25.10 ATHSCL HEART DISEASE OF [place] CORONARY 07/08/2017 ANSON QUINTANILLA Ot I65.23 OCCLUSION AND STENOSIS OF BILATERAL HER[place]NDEZ 07/08/2017 ANSON QUINTANILLA Ot I73.9 PERIPHERAL VASCULAR DISEASE, UNSPECIFIED 07/08/2017 OTTO MILLER MD, Ot L97.122 NON-PRESSURE CHRONIC ULCER OF LEFT THIGH 07/08/2017 OTTO MILLER MD, Ot M62.838 OTHER MUSCLE SPASM 07/08/2017 LOIS GR MD, Ot 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 [facility] 07/08/2017 LOIS GR MD, Ot L97.121 NON-PRS CHRONIC ULCER OF LEFT THIGH LIMI 07/08/2017 LOIS GR MD, Ot L97.122 NON-PRESSURE CHRONIC ULCER OF LEFT THIGH 07/08/2017 LOIS GR MD, Ot T87.81 DEHISCENCE OF AMPUTATION STUMP 07/08/2017 LOIS GR MD, Ot I50.21 ACUTE SYSTOLIC (CONGESTIVE) HEART FAILUR 07/08/2017 LOIS GR MD, Ot 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 [facility] 07/08/2017 LOIS GR MD, Ot L97.121 NON-PRS CHRONIC ULCER OF LEFT THIGH LIMI 07/08/2017 LOIS GR MD, Ot L97.122 NON-PRESSURE CHRONIC ULCER OF LEFT THIGH 07/08/2017 LOIS GR MD, Ot N18 .4 CHRONIC KIDNEY DISEASE, STAGE 4 (SEVERE) 07/08/2017 LOIS GR MD, Ot T87.81 DEHISCENCE OF AMPUTATION STUMP 07/08/2017 MAILE MD, LOIS G Ot 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 [facility] 07/08/2017 LOIS GR MD Ot L97.121 NON-PRS CHRONIC ULCER OF LEFT THIGH LIMI 07/08/2017 LOIS GR MD Ot L97.122 NON-PRESSURE CHRONIC ULCER OF LEFT THIGH 07/08/2017 LOIS GR MD, Ot T87.81 DEHISCENCE OF AMPUTATION STUMP 07/08/2017 MEL WOOD APRN Ot 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 [facility] 07/08/2017 MEL WOOD APRN Ot L97.121 NON-PRS CHRONIC ULCER OF LEFT THIGH LIMI 07/08/2017 MEL WOOD APRN Ot L97.122 NON-PRESSURE CHRONIC ULCER OF LEFT THIGH 07/08/2017 MEL WOOD APRN Ot T87.81 DEHISCENCE OF AMPUTATION STUMP 07/08/2017 LOIS GR MD, Ot 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 [facility] 07/08/2017 LOIS GR MD, Ot L97.121 NON-PRS CHRONIC ULCER OF LEFT THIGH LIMI 07/08/2017 LOIS GR MD, Ot L97.122 NON-PRESSURE CHRONIC ULCER OF LEFT THIGH 07/08/2017 LOIS GR MD, Ot T87.81 DEHISCENCE OF AMPUTATION STUMP 07/08/2017 LOIS GR MD Ot L97.122 NON-PRESSURE CHRONIC ULCER OF LEFT THIGH 07/08/2017 ANGELA FERRARI, OTTO Mcdonough Ot I11.0 HYPERTENSIVE HEART DISEASE WITH HEART FA 07/08/2017 ANGELA FERRARI, OTTO Mcdonough Ot I50.9 HEART FAILURE, UNSPECIFIED 07/08/2017 LOIS GR MD Ot 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 [facility] 07/08/2017 LOIS GR MD Ot L97.121 NON-PRS CHRONIC ULCER OF LEFT THIGH LIMI 07/08/2017 LOIS GR MD, Ot L97.122 NON-PRESSURE CHRONIC ULCER OF LEFT THIGH 07/08/2017 LOIS GR MD, Ot T87.81 DEHISCENCE OF AMPUTATION STUMP 07/08/2017 MANUEL BASS MD Ot 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 81 DEHISCENCE OF AMPUTATION STUMP 07/08/2017 MANUEL BASS MD, Ot Z79. 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 81 ENCOUNTER FOR THERAPEUTIC DRUG LEVEL MON 07/08/2017 MANUEL BASS MD, Ot Z79. 01 GAS PUMPER (CURRENT) USE OF ANTICOAGULANT 07/08/2017 MANUEL BASS MD, Ot Z95. 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 81 ENCOUNTER FOR THERAPEUTIC DRUG LEVEL MON 07/17/2017 MANUEL BASS MD, Ot Z79. 01 SHELTER (CURRENT) USE OF ANTICOAGULANT 07/17/2017 SHELIA MD, BASHAR J Ot Z95. 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 08/19/2017 MARIIA MEMBRENO MD Ot V67.09 SURGERY FOLLOW-UP, OTHER SURGERY 08/19/2017 FABI CABA MD Ot 414.00 CORON ATHEROSCLER NOS TYPE VESSEL, NATIV 08/19/2017 FABI CABA MD Ot 496 CHR AIRWAY OBSTRUCT NEC 08/19/2017 FABI CABA MD Ot 414.00 CORON ATHEROSCLER NOS TYPE VESSEL, NATIV 08/19/2017 FABI CABA MD Ot 496 CHR AIRWAY OBSTRUCT NEC 08/19/2017 FABI CABA MD Ot 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 08/19/2017 FABI CABA MD Ot 790.29 OTHER ABNORMAL GLUCOSE 08/19/2017 FABI CABA MD Ot 414.00 CORON ATHEROSCLER NOS TYPE VESSEL, NATIV 08/19/2017 FABI CABA MD Ot 428.0 CONGESTIVE HEART FAILURE NOS 08/19/2017 MANUEL ABSS MD Ot V58. 61 ANTICOAGULANTS,LT,CURRENT USE 08/19/2017 MANUEL BASS MD Ot V58. 83 ENCOUNTER FOR THERAPEUTIC DRUG MONITORIN 08/19/2017 Ot V58.61 ANTICOAGULANTS,LT,CURRENT USE 08/19/2017 Ot V58.83 ENC OUNTER FOR THERAPEUTIC DRUG MONITORIN 08/19/2017 Ot 401.9 HYPE RTENSION NOS 08/19/2017 Ot 414.00 COR ON ATHEROSCLER NOS TYPE VESSEL, NATIV 08/19/2017 Ot 433.10 CAR OTID ARTERY OCCLUSION W O CEREBRAL IN 08/19/2017 Ot 443.9 GAUTAM PH VASCULAR DIS NOS 08/19/2017 MIKY CAVAZOS MEDICARE INTERVIEWER Ot 443.9 PERIPH VASCULAR DIS NOS 08/19/2017 MIKY CAVAZOS MEDICARE INTERVIEWER Ot 729.5 PAIN IN LIMB 08/19/2017 OTTO MILLER MD Ot L03.032 CELLULITIS OF LEFT TOE 08/19/2017 MARINA ALMANZA APRN Ot E78.5 HYPERLIPIDEMIA, UNSPECIFIED 08/19/2017 MARINA ALMANZA APRN Ot I1 0 ESSENTIAL (PRIMARY) HYPERTENSION 08/19/2017 MARINA ALMANZA APRN Ot I25.10 ATHSCL HEART DISEASE OF [place] CORONARY 08/19/2017 MARINA ALMANZA APRN Ot I65.23 OCCLUSION AND STENOSIS OF BILATERAL [place] 08/19/2017 MARINA ALMANZA APRN Ot L03.032 CELLULITIS OF LEFT TOE 08/19/2017 MANUEL BASS MD Ot E78. 2 MIXED HYPERLIPIDEMIA 08/19/2017 MARINA ALMANZA APRN Ot L03.116 CELLULITIS OF LEFT LOWER LIMB 08/19/2017 MARINA ALMANZA APRN Ot R93.7 ABNORMAL FINDINGS ON DIAGNOSTIC IMAGING 08/19/2017 MARINA ALMANZA APRN Ot Z51.81 ENCOUNTER FOR THERAPEUTIC DRUG LEVEL MON 08/19/2017 MARINA ALMANZA APRN Ot Z79.01 GAS PUMPER (CURRENT) USE OF ANTICOAGULANT 08/19/2017 MANUEL BASS MD Ot E78. 5 HYPERLIPIDEMIA, UNSPECIFIED 08/19/2017 MANUEL BASS MD Ot I10 ESSENTIAL (PRIMARY) HYPERTENSION 08/19/2017 MANUEL BASS MD Ot I25. 10 ATHSCL HEART DISEASE OF [place] CORONARY 08/19/2017 MARINA ALMANZA APRN Ot Z51.81 ENCOUNTER FOR THERAPEUTIC DRUG LEVEL MON 08/19/2017 MARINA ALMANZA APRN Ot Z79.01 SHELTER (CURRENT) USE OF ANTICOAGULANT 08/19/2017 LOIS GR MD Ot 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 08/19/2017 LOIS GR MD Ot I87.323 CHRONIC VENOUS HTN W INFLAMMATION OF JULIA 08/19/2017 LOSI GR MD Ot L97.523 NON-PRS CHRONIC ULCER OTH PRT LEFT FOOT 08/19/2017 OTTO MILLER MD Ot Z51.81 ENCOUNTER FOR THERAPEUTIC DRUG LEVEL MON 08/19/2017 OTTO MILLER MD, Ot Z79.01 GAS PUMPER (CURRENT) USE OF ANTICOAGULANT 08/19/2017 OTTO MILLER MD Ot Z51.81 ENCOUNTER FOR THERAPEUTIC DRUG LEVEL MON 08/19/2017 OTTO MILLER MD, Ot Z79.01 GAS PUMPER (CURRENT) USE OF ANTICOAGULANT 08/19/2017 OTTO MILLER MD, Ot Z95.2 PRESENCE OF PROSTHETIC HEART VALVE 08/19/2017 LOIS GR MD, Ot 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 C 08/19/2017 LOIS GR MD, Ot L97.123 NON-PRS CHRONIC ULCER OF LEFT THIGH W MO 08/19/2017 LOIS GR MD, Ot R54 AGE-RELATED PHYSICAL DEBILITY 08/19/2017 LOIS GR MD, Ot T86.821 SKIN GRAFT (ALLOGRAFT) (AUTOGRAFT) FAILU 08/19/2017 MANUEL BASS MD, Ot Z79. 01 SHELTER (CURRENT) USE OF ANTICOAGULANT 08/19/2017 MANUEL BASS MD, Ot Z95. 2 PRESENCE OF PROSTHETIC HEART VALVE 08/19/2017 MANUEL BASS MD, Ot Z51. 81 ENCOUNTER FOR THERAPEUTIC DRUG LEVEL MON 08/19/2017 MANUEL BASS MD, Ot Z79. 01 GAS PUMPER (CURRENT) USE OF ANTICOAGULANT 08/19/2017 MANUEL BASS MD, Ot Z51. 81 ENCOUNTER FOR THERAPEUTIC DRUG LEVEL MON 08/19/2017 MANUEL BASS MD, Ot Z79. 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 81 ENCOUNTER FOR THERAPEUTIC DRUG LEVEL MON 08/19/2017 MANUEL BASS MD, Ot Z79. 01 GAS PUMPER (CURRENT) USE OF ANTICOAGULANT 08/19/2017 LOIS GR MD, Ot I70 .1 ATHEROSCLEROSIS OF RENAL ARTERY 08/19/2017 LOIS GR MD, Ot I70.203 UNSP 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 EXTREMITI 08/19/2017 LOIS GR MD, Ot I77 .1 STRICTURE OF ARTERY 08/19/2017 LOIS GR MD, Ot L97.123 NON-PRS CHRONIC ULCER OF LEFT THIGH W NE 08/19/2017 LOIS GR MD, Ot T87.81 DEHISCENCE OF AMPUTATION STUMP 08/19/2017 LOIS GR MD, Ot 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 [facility] 08/19/2017 LOIS GR MD, Ot L97.123 NON-PRS CHRONIC ULCER OF LEFT THIGH W MO 08/19/2017 LOIS GR MD, Ot T87.81 DEHISCENCE OF AMPUTATION STUMP 08/19/2017 MANUEL BASS MD Ot Z51. 81 ENCOUNTER FOR THERAPEUTIC DRUG LEVEL MON 08/19/2017 MANUEL BASS MD Ot Z79. 01 GAS PUMPER (CURRENT) USE OF ANTICOAGULANT 08/19/2017 ALURA APARICIO MD Ot I73 .9 PERIPHERAL VASCULAR DISEASE, UNSPECIFIED 08/19/2017 MANUEL BASS MD, Ot Z51. 81 ENCOUNTER FOR THERAPEUTIC DRUG LEVEL MON 08/19/2017 MANUEL BASS MD, Ot Z79. 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 [facility] 08/19/2017 LOIS GR MD, Ot L97.122 NON-PRESSURE CHRONIC ULCER OF LEFT THIGH 08/19/2017 LOIS GR MD, Ot T87.81 DEHISCENCE OF AMPUTATION STUMP 08/19/2017 ANSON QUINTANILLA Ot E78.2 MIXED HYPERLIPIDEMIA 08/19/2017 ANSON QUINTANILLA Ot I25.10 ATHSCL HEART DISEASE OF [place] CORONARY 08/19/2017 ANSON QUINTANILLA Ot I65.23 OCCLUSION AND STENOSIS OF BILATERAL [place] 08/19/2017 ANSON QUINTANILLA Ot I73.9 PERIPHERAL VASCULAR DISEASE, UNSPECIFIED 08/19/2017 OTTO MILLER MD Ot L97.122 NON-PRESSURE CHRONIC ULCER OF LEFT THIGH 08/19/2017 OTTO MILLER MD Ot M62.838 OTHER MUSCLE SPASM 08/19/2017 LOIS GR MD, Ot 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 [facility] 08/19/2017 LOIS GR MD, Ot L97.121 NON-PRS CHRONIC ULCER OF LEFT THIGH LIMI 08/19/2017 LOIS GR MD, Ot L97.122 NON-PRESSURE CHRONIC ULCER OF LEFT THIGH 08/19/2017 LOIS GR MD, Ot T87.81 DEHISCENCE OF AMPUTATION STUMP 08/19/2017 LOIS GR MD Ot I50.21 ACUTE SYSTOLIC (CONGESTIVE) HEART FAILUR 08/19/2017 LOIS GR MD Ot 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 [facility] 08/19/2017 LOIS GR MD, Ot L97.121 NON-PRS CHRONIC ULCER OF LEFT THIGH LIMI 08/19/2017 LOIS GR MD, Ot L97.122 NON-PRESSURE CHRONIC ULCER OF LEFT THIGH 08/19/2017 LOIS GR MD Ot N18 .4 CHRONIC KIDNEY DISEASE, STAGE 4 (SEVERE) 08/19/2017 LOIS GR MD, Ot T87.81 DEHISCENCE OF AMPUTATION STUMP 08/19/2017 LOIS GR MD, Ot 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 [facility] 08/19/2017 LOIS GR MD, Ot L97.121 NON-PRS CHRONIC ULCER OF LEFT THIGH LIMI 08/19/2017 LOIS GR MD, Ot L97.122 NON-PRESSURE CHRONIC ULCER OF LEFT THIGH 08/19/2017 LOIS GR MD, Ot T87.81 DEHISCENCE OF AMPUTATION STUMP 08/19/2017 MEL WOOD APRN Ot 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 [facility] 08/19/2017 MEL WOOD APRN Ot L97.121 NON-PRS CHRONIC ULCER OF LEFT THIGH LIMI 08/19/2017 MEL WOOD APRN Ot L97.122 NON-PRESSURE CHRONIC ULCER OF LEFT THIGH 08/19/2017 MEL WOOD APRN Ot T87.81 DEHISCENCE OF AMPUTATION STUMP 08/19/2017 LOIS GR MD, Ot 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 [facility] 08/19/2017 LOIS GR MD, Ot L97.121 NON-PRS CHRONIC ULCER OF LEFT THIGH LIMI 08/19/2017 LOIS GR MD, Ot L97.122 NON-PRESSURE CHRONIC ULCER OF LEFT THIGH 08/19/2017 LOIS GR MD, Ot T87.81 DEHISCENCE OF AMPUTATION STUMP 08/19/2017 LOIS GR MD, Ot L97.122 NON-PRESSURE CHRONIC ULCER OF LEFT THIGH 08/19/2017 OTTO MILLER MD Ot I11.0 HYPERTENSIVE HEART DISEASE WITH HEART FA 08/19/2017 OTTO MILLER MD Ot I50.9 HEART FAILURE, UNSPECIFIED 08/19/2017 OLIS GR MD, Ot 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 81 DEHISCENCE OF AMPUTATION STUMP 08/19/2017 MANUEL BASS MD Ot Z79. 01 GAS PUMPER (CURRENT) USE OF ANTICOAGULANT 08/19/2017 LOIS GR MD, Ot 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 [facility] 08/19/2017 LOIS GR MD, Ot L97.122 NON-PRESSURE CHRONIC ULCER OF LEFT THIGH 08/19/2017 LOIS GR MD, Ot T65.222A TOXIC EFFECT OF TOBACCO CIGARETTES, SELF 08/19/2017 MANUEL BASS MD Ot Z51. 81 ENCOUNTER FOR THERAPEUTIC DRUG LEVEL MON 08/19/2017 MANUEL BASS MD Ot Z79. 01 SHELTER (CURRENT) USE OF ANTICOAGULANT 08/19/2017 MANUEL BASS MD, Ot Z95. 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 81 ENCOUNTER FOR THERAPEUTIC DRUG LEVEL MON 08/19/2017 MANUEL BASS MD, Ot Z79. 01 GAS PUMPER (CURRENT) USE OF ANTICOAGULANT 08/19/2017 MANUEL BASS MD Ot Z95. 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 81 ENCOUNTER FOR THERAPEUTIC DRUG LEVEL MON 11/06/2017 MANUEL BASS MD Ot Z79. 01 SHELTER (CURRENT) USE OF ANTICOAGULANT 11/06/2017 MANUEL BASS MD Ot Z95. 2 PRESENCE OF PROSTHETIC HEART VALVE 12/07/2017 MANUEL BASS MD Ot Z51. 81 ENCOUNTER FOR THERAPEUTIC DRUG LEVEL MON 12/07/2017 MANUEL BASS MD Ot Z79. 01 SHELTER (CURRENT) USE OF ANTICOAGULANT 12/07/2017 MANUEL BASS MD Ot Z95. 2 PRESENCE OF PROSTHETIC HEART VALVE 12/29/2017 MANUEL BASS MD Ot Z51. 81 ENCOUNTER FOR THERAPEUTIC DRUG LEVEL MON 12/29/2017 MANUEL BASS MD Ot Z79. 01 SHELTER (CURRENT) USE OF ANTICOAGULANT 12/29/2017 MANUEL BASS MD Ot Z95. 2 PRESENCE OF PROSTHETIC HEART VALVE 01/13/2018 MANUEL BASS MD Ot Z51. 81 ENCOUNTER FOR THERAPEUTIC DRUG LEVEL MON 01/13/2018 MANUEL BASS MD Ot Z79. 01 GAS PUMPER (CURRENT) USE OF ANTICOAGULANT 01/13/2018 MANUEL BASS MD Ot Z95. 2 PRESENCE OF PROSTHETIC HEART VALVE 02/08/2018 ANSON QUINTANILLA Ot E78.2 MIXED HYPERLIPIDEMIA 02/08/2018 ANSON QUINTANILLA Ot I08.3 COMB RHEUMATIC DISORD OF MITRAL, AORTIC 02/08/2018 ANSON QUINTANILLA Ot I10 ESSENTIAL (PRIMARY) HYPERTENSION 02/08/2018 ANSON QUINTANILLA Ot I25.10 ATHSCL HEART DISEASE OF [place] CORONARY 02/08/2018 TRINIDADLISET MOSQUEDA ANSON K Ot I65.29 OCCLUSION AND STENOSIS OF UNSPECIFIED CA 02/08/2018 CAROLYN MOSQUEDA ANSON K Ot Z95.2 PRESENCE OF PROSTHETIC HEART VALVE 02/11/2018 CAROLYN MOSQUEDA ANSON K Ot E78.2 MIXED HYPERLIPIDEMIA 02/11/2018 CAROLYN MOSQUEDA ANSON K Ot I08.3 COMB RHEUMATIC DISORD OF MITRAL, AORTIC 02/11/2018 CAROLYN MOSQUEDA ANSON K Ot I10 ESSENTIAL (PRIMARY) HYPERTENSION 02/11/2018 CAROLYN MOSQUEDA ANSON K Ot I25.10 ATHSCL HEART DISEASE OF [place] CORONARY 02/11/2018 CAROLYN MOSQUEDA ANSON K Ot I65.29 OCCLUSION AND STENOSIS OF UNSPECIFIED CA 02/11/2018 CAROLYN MOSQUEDA ANSON K Ot Z95.2 PRESENCE OF PROSTHETIC HEART VALVE 03/29/2018 MANUEL BASS MD Ot Z51. 81 ENCOUNTER FOR THERAPEUTIC DRUG LEVEL MON 03/29/2018 MANUEL BASS MD Ot Z79. 01 SHELTER (CURRENT) USE OF ANTICOAGULANT 03/29/2018 MANUEL BASS MD Ot Z95. 2 PRESENCE OF PROSTHETIC HEART VALVE 03/30/2018 MANUEL BASS MD Ot Z51. 81 ENCOUNTER FOR THERAPEUTIC DRUG LEVEL MON 03/30/2018 MANUEL BASS MD Ot Z79. 01 GAS PUMPER (CURRENT) USE OF ANTICOAGULANT 03/30/2018 MANUEL BASS MD Ot Z95. 2 PRESENCE OF PROSTHETIC HEART VALVE 03/17/2019 MARINA ALMANZA APRN Ot M25.532 PAIN IN LEFT WRIST 03/17/2019 MARINA ALMANZA APRN Ot M79.642 PAIN IN LEFT HAND 03/17/2019 MARINA ALMANZA APRN Ot W19.XXXA UNSPECIFIED FALL, INITIAL ENCOUNTER 03/21/2019 MARINA ALMANZA APRN Ot M25.532 PAIN IN LEFT WRIST 03/21/2019 MARINA ALMANZA APRN Ot M79.642 PAIN IN LEFT HAND 03/21/2019 MARINA ALMANZA APRN Ot W19.XXXA UNSPECIFIED FALL, INITIAL ENCOUNTER 03/21/2019 FABI CABA MD Ot 414.00 CORON ATHEROSCLER NOS TYPE VESSEL, NATIV 03/21/2019 FABI CABA MD Ot 428.0 CONGESTIVE HEART FAILURE NOS 03/21/2019 MANUEL BASS MD Ot V58. 61 ANTICOAGULANTS,LT,CURRENT USE 03/21/2019 MANUEL BASS MD Ot V58. 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 CEREBRAL IN 03/21/2019 Ot 443.9 GAUTAM PH VASCULAR DIS NOS 03/21/2019 MIKY CAVAZOS MEDICARE INTERVIEWER Ot 443.9 PERIPH VASCULAR DIS NOS 03/21/2019 MIKY CAVAZOS MEDICARE INTERVIEWER Ot 729.5 PAIN IN LIMB 03/21/2019 ANGELA FERRARI, OTTO Mcdonough Ot L03.032 CELLULITIS OF LEFT TOE 03/21/2019 MARINA ALMANZA MEDICARE INTERVIEWER Ot E78.5 HYPERLIPIDEMIA, UNSPECIFIED 03/21/2019 MARINA ALMANZA MEDICARE INTERVIEWER Ot I1 0 ESSENTIAL (PRIMARY) HYPERTENSION 03/21/2019 MARINA ALMANZA MEDICARE INTERVIEWER Ot I25.10 ATHSCL HEART DISEASE OF [place] CORONARY 03/21/2019 MARINA ALMANZA MEDICARE INTERVIEWER Ot I65.23 OCCLUSION AND STENOSIS OF BILATERAL [place] 03/21/2019 MARINA ALMANZA MEDICARE INTERVIEWER Ot L03.032 CELLULITIS OF LEFT TOE 03/21/2019 MANUEL BASS MD Ot E78. 2 MIXED HYPERLIPIDEMIA 03/21/2019 MARINA ALMANZA APRN Ot L03.116 CELLULITIS OF LEFT LOWER LIMB 03/21/2019 MARINA ALMANZA MEDICARE INTERVIEWER Ot R93.7 ABNORMAL FINDINGS ON DIAGNOSTIC IMAGING 03/21/2019 MARINA ALMANZA APRN Ot Z51.81 ENCOUNTER FOR THERAPEUTIC DRUG LEVEL MON 03/21/2019 MARINA ALMANZA APRN Ot Z79.01 SHELTER (CURRENT) USE OF ANTICOAGULANT 03/21/2019 MANUEL BASS MD Ot E78. 5 HYPERLIPIDEMIA, UNSPECIFIED 03/21/2019 MANUEL BASS MD, Ot I10 ESSENTIAL (PRIMARY) HYPERTENSION 03/21/2019 MANUEL BASS MD, Ot I25. 10 ATHSCL HEART DISEASE OF [place] CORONARY 03/21/2019 MARINA ALMANZA APRN Ot Z51.81 ENCOUNTER FOR THERAPEUTIC DRUG LEVEL MON 03/21/2019 MARINA ALMANZA APRN Ot Z79.01 GAS PUMPER (CURRENT) USE OF ANTICOAGULANT 03/21/2019 LOIS GR MD, Ot 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 03/21/2019 LOIS GR MD, Ot I87.323 CHRONIC VENOUS HTN W INFLAMMATION OF [place] 03/21/2019 LOIS GR MD, Ot L97.523 NON-PRS CHRONIC ULCER OTH PRT LEFT FOOT 03/21/2019 OTTO MILLER MD, Ot Z51.81 ENCOUNTER FOR THERAPEUTIC DRUG LEVEL MON 03/21/2019 OTTO MILLER MD, Ot Z79.01 GAS PUMPER (CURRENT) USE OF ANTICOAGULANT 03/21/2019 OTTO MILLER MD, Ot Z51.81 ENCOUNTER FOR THERAPEUTIC DRUG LEVEL MON 03/21/2019 OTTO MILLER MD, Ot Z79.01 GAS PUMPER (CURRENT) USE OF ANTICOAGULANT 03/21/2019 OTTO MILLER MD, Ot Z95.2 PRESENCE OF PROSTHETIC HEART VALVE 03/21/2019 LOIS GR MD, Ot 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 01 GAS PUMPER (CURRENT) USE OF ANTICOAGULANT 03/21/2019 MANUEL BASS MD, Ot Z95. 2 PRESENCE OF PROSTHETIC HEART VALVE 03/21/2019 MANUEL BASS MD, Ot Z51. 81 ENCOUNTER FOR THERAPEUTIC DRUG LEVEL MON 03/21/2019 MANUEL BASS MD, Ot Z79. 01 GAS PUMPER (CURRENT) USE OF ANTICOAGULANT 03/21/2019 MANUEL BASS MD, Ot Z51. 81 ENCOUNTER FOR THERAPEUTIC DRUG LEVEL MON 03/21/2019 MANUEL BASS MD, Ot Z79. 01 GAS PUMPER (CURRENT) USE OF ANTICOAGULANT 03/21/2019 LOIS GR MD, Ot 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 C 03/21/2019 LOIS GR MD, Ot L97.122 NON-PRESSURE CHRONIC ULCER OF LEFT THIGH 03/21/2019 LOIS GR MD, Ot T86.821 SKIN GRAFT (ALLOGRAFT) (AUTOGRAFT) FAILU 03/21/2019 LOIS GR MD, Ot T87.81 DEHISCENCE OF AMPUTATION STUMP 03/21/2019 MANUEL BASS MD, Ot Z51. 81 ENCOUNTER FOR THERAPEUTIC DRUG LEVEL MON 03/21/2019 MANUEL BASS MD, Ot Z79. 01 GAS PUMPER (CURRENT) USE OF ANTICOAGULANT 03/21/2019 LOIS GR MD, Ot I70 .1 ATHEROSCLEROSIS OF RENAL ARTERY 03/21/2019 LOIS GR MD, Ot I70.203 UNSP 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 EXTREMITI 03/21/2019 LOIS GR MD, Ot I77 .1 STRICTURE OF ARTERY 03/21/2019 LOIS GR MD, Ot L97.123 NON-PRS CHRONIC ULCER OF LEFT THIGH W NE 03/21/2019 LOIS GR MD, Ot T87.81 DEHISCENCE OF AMPUTATION STUMP 03/21/2019 LOIS GR MD, Ot 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 [facility] 03/21/2019 LOIS GR MD, Ot L97.123 NON-PRS CHRONIC ULCER OF LEFT THIGH W NE 03/21/2019 LOIS GR MD, Ot T87.81 DEHISCENCE OF AMPUTATION STUMP 03/21/2019 MANUEL BASS MD, Ot Z51. 81 ENCOUNTER FOR THERAPEUTIC DRUG LEVEL MON 03/21/2019 MANUEL BASS MD, Ot Z79. 01 GAS PUMPER (CURRENT) USE OF ANTICOAGULANT 03/21/2019 LAURA APARICIO MD Ot I73 .9 PERIPHERAL VASCULAR DISEASE, UNSPECIFIED 03/21/2019 MANUEL BASS MD, Ot Z51. 81 ENCOUNTER FOR THERAPEUTIC DRUG LEVEL MON 03/21/2019 MANUEL BASS MD, Ot Z79. 01 SHELTER (CURRENT) USE OF ANTICOAGULANT 03/21/2019 LOIS GR MD, Ot L97.122 NON-PRESSURE CHRONIC ULCER OF LEFT THIGH 03/21/2019 LOIS GR MD, Ot 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 [facility] 03/21/2019 LOIS GR MD, Ot L97.123 NON-PRS CHRONIC ULCER OF LEFT THIGH W [place] 03/21/2019 LOIS GR MD, Ot T87.81 DEHISCENCE OF AMPUTATION STUMP 03/21/2019 LOIS GR MD, Ot 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 [facility] 03/21/2019 LOIS GR MD, Ot L97.122 NON-PRESSURE CHRONIC ULCER OF LEFT THIGH 03/21/2019 LOIS GR MD, Ot T87.81 DEHISCENCE OF AMPUTATION STUMP 03/21/2019 ANSON QUINTANILLA Ot E78.2 MIXED HYPERLIPIDEMIA 03/21/2019 ANSON QUINTANILLA Ot I25.10 ATHSCL HEART DISEASE OF [place] CORONARY 03/21/2019 ANSON QUINTANILLA Ot I65.23 OCCLUSION AND STENOSIS OF BILATERAL [place] 03/21/2019 ANSON QUINTANILLA Ot I73.9 PERIPHERAL VASCULAR DISEASE, UNSPECIFIED 03/21/2019 OTTO MILLER MD, Ot L97.122 NON-PRESSURE CHRONIC ULCER OF LEFT THIGH 03/21/2019 ANGELA FERRARI, OTTO Mcdonough Ot M62.838 OTHER MUSCLE SPASM 03/21/2019 LOIS GR MD, Ot 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 [facility] 03/21/2019 LOIS GR MD, Ot L97.121 NON-PRS CHRONIC ULCER OF LEFT THIGH LIMI 03/21/2019 LOIS GR MD, Ot L97.122 NON-PRESSURE CHRONIC ULCER OF LEFT THIGH 03/21/2019 LOIS GR MD, Ot T87.81 DEHISCENCE OF AMPUTATION STUMP 03/21/2019 LOIS GR MD Ot I50.21 ACUTE SYSTOLIC (CONGESTIVE) HEART FAILUR 03/21/2019 LOIS GR MD, Ot 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 [facility] 03/21/2019 LOIS GR MD, Ot L97.121 NON-PRS CHRONIC ULCER OF LEFT THIGH [place] 03/21/2019 LOIS GR MD, Ot L97.122 NON-PRESSURE CHRONIC ULCER OF LEFT THIGH 03/21/2019 LOIS GR MD, Ot N18 .4 CHRONIC KIDNEY DISEASE, STAGE 4 (SEVERE) 03/21/2019 LOIS GR MD, Ot T87.81 DEHISCENCE OF AMPUTATION STUMP 03/21/2019 LOIS GR MD Ot 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 [facility] 03/21/2019 LOIS GR MD, Ot L97.121 NON-PRS CHRONIC ULCER OF LEFT THIGH LIMI 03/21/2019 LOIS GR MD Ot L97.122 NON-PRESSURE CHRONIC ULCER OF LEFT THIGH 03/21/2019 LOIS GR MD, Ot T87.81 DEHISCENCE OF AMPUTATION STUMP 03/21/2019 MEL WOOD APRN Ot 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 [facility] 03/21/2019 MEL WOOD APRN Ot L97.121 NON-PRS CHRONIC ULCER OF LEFT THIGH [place] 03/21/2019 MEL WOOD APRN Ot L97.122 NON-PRESSURE CHRONIC ULCER OF LEFT THIGH 03/21/2019 MEL WOOD APRN Ot T87.81 DEHISCENCE OF AMPUTATION STUMP 03/21/2019 LOIS GR MD Ot 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 [facility] 03/21/2019 LOIS GR MD, Ot L97.121 NON-PRS CHRONIC ULCER OF LEFT THIGH LIMI 03/21/2019 LOIS GR MD, Ot L97.122 NON-PRESSURE CHRONIC ULCER OF LEFT THIGH 03/21/2019 LOIS GR MD, Ot T87.81 DEHISCENCE OF AMPUTATION STUMP 03/21/2019 LOIS GR MD Ot L97.122 NON-PRESSURE CHRONIC ULCER OF LEFT THIGH 03/21/2019 OTTO MILLER MD Ot I11.0 HYPERTENSIVE HEART DISEASE WITH HEART FA 03/21/2019 OTTO MILLER MD Ot I50.9 HEART FAILURE, UNSPECIFIED 03/21/2019 LOIS GR MD Ot 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 [facility] 03/21/2019 LOIS GR MD Ot L97.121 NON-PRS CHRONIC ULCER OF LEFT THIGH LIMI 03/21/2019 LOIS GR MD Ot L97.122 NON-PRESSURE CHRONIC ULCER OF LEFT THIGH 03/21/2019 LOIS GR MD, Ot T87.81 DEHISCENCE OF AMPUTATION STUMP 03/21/2019 MANUEL BASS MD, Ot 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 [facility] 03/21/2019 MANUEL BASS MD, Ot L97.121 NON-PRS CHRONIC ULCER OF LEFT THIGH [place] 03/21/2019 MANUEL BASS MD, Ot L97.122 NON-PRESSURE CHRONIC ULCER OF LEFT THIGH 03/21/2019 MANUEL BASS MD, Ot T87. 81 DEHISCENCE OF AMPUTATION STUMP 03/21/2019 MANUEL BASS MD, Ot Z79. 01 SHELTER (CURRENT) USE OF ANTICOAGULANT 03/21/2019 LOIS GR MD, Ot 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 [facility] 03/21/2019 LOIS GR MD, Ot L97.122 NON-PRESSURE CHRONIC ULCER OF LEFT THIGH 03/21/2019 LOIS GR MD, Ot T65.222A TOXIC EFFECT OF TOBACCO CIGARETTES, SELF 03/21/2019 MANUEL BASS MD, Ot Z51. 81 ENCOUNTER FOR THERAPEUTIC DRUG LEVEL MON 03/21/2019 MANUEL BASS MD, Ot Z79. 01 GAS PUMPER (CURRENT) USE OF ANTICOAGULANT 03/21/2019 MANUEL BASS MD, Ot Z95. 2 PRESENCE OF PROSTHETIC HEART VALVE 03/21/2019 LOIS GR MD, Ot 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 [facility] 03/21/2019 LOIS GR MD, Ot L97.122 NON-PRESSURE CHRONIC ULCER OF LEFT THIGH 03/21/2019 LOIS GR MD, Ot T65.222A TOXIC EFFECT OF TOBACCO CIGARETTES, SELF 03/21/2019 OTTO MILLER MD Ot S69.91XA UNSP INJURY OF RIGHT WRIST, HAND AND FIN 03/21/2019 MANUEL BASS MD, Ot Z51. 81 ENCOUNTER FOR THERAPEUTIC DRUG LEVEL MON 03/21/2019 MANUEL ABSS MD, Ot Z79. 01 SHELTER (CURRENT) USE OF ANTICOAGULANT 03/21/2019 MANUEL BASS MD, Ot Z95. 2 PRESENCE OF PROSTHETIC HEART VALVE 03/21/2019 ANSON QUINTANILLA Ot E78.2 MIXED HYPERLIPIDEMIA 03/21/2019 ANSON QUINTANILLA Ot I08.3 COMB RHEUMATIC DISORD OF [place], AORTIC 03/21/2019 ANSON QUINTANILLA Ot I10 ESSENTIAL (PRIMARY) HYPERTENSION 03/21/2019 ANSON QUINTANILLA Ot I25.10 ATHSCL HEART DISEASE OF [place] CORONARY 03/21/2019 ANSON QUINTANILLA Ot I65.29 OCCLUSION AND STENOSIS OF UNSPECIFIED CA 03/21/2019 ANSON QUINTANILLA Ot Z95.2 PRESENCE OF PROSTHETIC HEART VALVE 03/21/2019 MANUEL BASS MD, Ot Z51. 81 ENCOUNTER FOR THERAPEUTIC DRUG LEVEL MON 03/21/2019 MANUEL BASS MD, Ot Z79. 01 GAS PUMPER (CURRENT) USE OF ANTICOAGULANT 03/21/2019 MANUEL BASS MD, Ot Z95. 2 PRESENCE OF PROSTHETIC HEART VALVE 03/21/2019 MARINA ALMANZA APRN Ot M25.532 PAIN IN LEFT WRIST 03/21/2019 MARINA ALMANZA APRN Ot M79.642 PAIN IN LEFT HAND 03/21/2019 MARINA ALMANZA APRN Ot W19.XXXA UNSPECIFIED FALL, INITIAL ENCOUNTER 03/21/2019 MARINA ALMANZA APRN Ot M25.532 PAIN IN LEFT WRIST 03/21/2019 MARINA ALMANZA APRN Ot M79.642 PAIN IN LEFT HAND 03/21/2019 MARINA ALMANZA APRN Ot W19.XXXA UNSPECIFIED FALL, INITIAL ENCOUNTER 04/29/2019 MARINA ALMANZA APRN Ot M25.532 PAIN IN LEFT WRIST 04/29/2019 MARINA ALMANZA APRN Ot M79.642 PAIN IN LEFT HAND 04/29/2019 MARINA ALMANZA APRN Ot W19.XXXA UNSPECIFIED FALL, INITIAL ENCOUNTER 05/06/2019 W F32.1 Mary r depressive disorder, single episode, moderate Marina Almanza 05/06/2019 W F41.1 Gene ralized anxiety disorder Marina Almanza 05/06/2019 W I10 Essent ial (primary) hypertension Marina Almanza 05/06/2019 W R60.0 Loca lized edema Marina Almanza 05/06/2019 W J44.1 COPD exacerbation Marina Almanza 05/06/2019 W M79.602 Le ft arm pain Marina Almanza 05/06/2019 W R05 Cough Sherrie Almanzaie 05/06/2019 W 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 61 ANTICOAGULANTS,LT,CURRENT USE 05/16/2019 MANUEL BASS MD Ot V58. 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 05/16/2019 MIKY CAVAZOS MEDICARE INTERVIEWER Ot 443.9 PERIPH VASCULAR DIS NOS 05/16/2019 MIKY CAVAZOS MEDICARE INTERVIEWER Ot 729.5 PAIN IN LIMB 05/16/2019 ANGELA FERRARI, OTTO Mcdonough Ot L03.032 CELLULITIS OF LEFT TOE 05/16/2019 MARINA ALMANZA MEDICARE INTERVIEWER Ot E78.5 HYPERLIPIDEMIA, UNSPECIFIED 05/16/2019 MARINA ALMANZA APRN Ot I1 0 ESSENTIAL (PRIMARY) HYPERTENSION 05/16/2019 MARINA ALMANZA APRN Ot I25.10 ATHSCL HEART DISEASE OF [place] CORONARY 05/16/2019 MARINA ALMANZA APRN Ot I65.23 OCCLUSION AND STENOSIS OF BILATERAL [place] 05/16/2019 MARINA ALMANZA APRN Ot L03.032 CELLULITIS OF LEFT TOE 05/16/2019 MANUEL BASS MD Ot E78. 2 MIXED HYPERLIPIDEMIA 05/16/2019 MARINA ALMANZA APRN Ot L03.116 CELLULITIS OF LEFT LOWER LIMB 05/16/2019 MARINA ALMANZA APRN Ot R93.7 ABNORMAL FINDINGS ON DIAGNOSTIC IMAGING 05/16/2019 MARINA ALMANZA APRN Ot Z51.81 ENCOUNTER FOR THERAPEUTIC DRUG LEVEL MON 05/16/2019 MARINA ALMANZA APRN Ot Z79.01 SHELTER (CURRENT) USE OF ANTICOAGULANT 05/16/2019 MANUEL BASS MD, Ot E78. 5 HYPERLIPIDEMIA, UNSPECIFIED 05/16/2019 MANUEL BASS MD, Ot I10 ESSENTIAL (PRIMARY) HYPERTENSION 05/16/2019 MANUEL BASS MD, Ot I25. 10 ATHSCL HEART DISEASE OF [place] CORONARY 05/16/2019 MARINA ALMANZA APRN Ot Z51.81 ENCOUNTER FOR THERAPEUTIC DRUG LEVEL MON 05/16/2019 MARINA ALMANZA APRN Ot Z79.01 GAS PUMPER (CURRENT) USE OF ANTICOAGULANT 05/16/2019 LOIS GR MD, Ot 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 05/16/2019 LOIS GR MD, Ot I87.323 CHRONIC VENOUS HTN W INFLAMMATION OF [place] 05/16/2019 LOIS GR MD, Ot L97.523 NON-PRS CHRONIC ULCER OTH PRT LEFT FOOT 05/16/2019 OTTO MILLER MD, Ot Z51.81 ENCOUNTER FOR THERAPEUTIC DRUG LEVEL MON 05/16/2019 OTTO MILLER MD Ot Z79.01 GAS PUMPER (CURRENT) USE OF ANTICOAGULANT 05/16/2019 OTTO MILLER MD Ot Z51.81 ENCOUNTER FOR THERAPEUTIC DRUG LEVEL MON 05/16/2019 OTTO MILLER MD Ot Z79.01 GAS PUMPER (CURRENT) USE OF ANTICOAGULANT 05/16/2019 OTTO MILLER MD Ot Z95.2 PRESENCE OF PROSTHETIC HEART VALVE 05/16/2019 LOIS GR MD, Ot 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 05/16/2019 LOIS GR MD, Ot L97.123 NON-PRS CHRONIC ULCER OF LEFT THIGH W NE 05/16/2019 LOIS GR MD, Ot R54 AGE-RELATED PHYSICAL DEBILITY 05/16/2019 LOIS GR MD, Ot T86.821 SKIN GRAFT (ALLOGRAFT) (AUTOGRAFT) FAILU 05/16/2019 MNAUEL BASS MD, Ot Z79. 01 SHELTER (CURRENT) USE OF ANTICOAGULANT 05/16/2019 MANUEL BASS MD, Ot Z95. 2 PRESENCE OF PROSTHETIC HEART VALVE 05/16/2019 MANUEL BASS MD Ot Z51. 81 ENCOUNTER FOR THERAPEUTIC DRUG LEVEL MON 05/16/2019 MANUEL BASS MD, Ot Z79. 01 GAS PUMPER (CURRENT) USE OF ANTICOAGULANT 05/16/2019 MANUEL BASS MD, Ot Z51. 81 ENCOUNTER FOR THERAPEUTIC DRUG LEVEL MON 05/16/2019 MANUEL BASS MD, Ot Z79. 01 SHELTER (CURRENT) USE OF ANTICOAGULANT 05/16/2019 LOIS GR MD, Ot 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 05/16/2019 LOIS GR MD, Ot L97.122 NON-PRESSURE CHRONIC ULCER OF LEFT THIGH 05/16/2019 LOIS GR MD, Ot T86.821 SKIN GRAFT (ALLOGRAFT) (AUTOGRAFT) FAILU 05/16/2019 LOIS GR MD, Ot T87.81 DEHISCENCE OF AMPUTATION STUMP 05/16/2019 MANUEL BASS MD, Ot Z51. 81 ENCOUNTER FOR THERAPEUTIC DRUG LEVEL MON 05/16/2019 MANUEL BASS MD, Ot Z79. 01 SHELTER (CURRENT) USE OF ANTICOAGULANT 05/16/2019 LOIS GR MD, Ot I70 .1 ATHEROSCLEROSIS OF RENAL ARTERY 05/16/2019 LOIS GR MD, Ot I70.203 UNSP 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 EXTREMITI 05/16/2019 LOIS GR MD Ot I77 .1 STRICTURE OF ARTERY 05/16/2019 LOIS GR MD, Ot L97.123 NON-PRS CHRONIC ULCER OF LEFT THIGH W NE 05/16/2019 LOIS GR MD, Ot T87.81 DEHISCENCE OF AMPUTATION STUMP 05/16/2019 LOIS GR MD, Ot 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 05/16/2019 LOIS GR MD, Ot L97.123 NON-PRS CHRONIC ULCER OF LEFT THIGH W NE 05/16/2019 LOIS GR MD, Ot T87.81 DEHISCENCE OF AMPUTATION STUMP 05/16/2019 MANULE BASS MD, Ot Z51. 81 ENCOUNTER FOR THERAPEUTIC DRUG LEVEL MON 05/16/2019 MANUEL BASS MD, Ot Z79. 01 GAS PUMPER (CURRENT) USE OF ANTICOAGULANT 05/16/2019 LAURA APARICIO MD Ot I73 .9 PERIPHERAL VASCULAR DISEASE, UNSPECIFIED 05/16/2019 SHELIA MD, BASHAR J Ot Z51. 81 ENCOUNTER FOR THERAPEUTIC DRUG LEVEL MON 05/16/2019 SHELIA FERRARI, MANUEL Garnica Ot Z79. 01 SHELTER (CURRENT) USE OF ANTICOAGULANT 05/16/2019 LOIS GR MD, Ot L97.122 NON-PRESSURE CHRONIC ULCER OF LEFT THIGH 05/16/2019 LOIS GR MD, Ot 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 05/16/2019 LOIS GR MD, Ot L97.123 NON-PRS CHRONIC ULCER OF LEFT THIGH W [place] 05/16/2019 LOIS GR MD, Ot T87.81 DEHISCENCE OF AMPUTATION STUMP 05/16/2019 LOIS GR MD, Ot 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 [facility] 05/16/2019 LOIS GR MD, Ot L97.122 NON-PRESSURE CHRONIC ULCER OF LEFT THIGH 05/16/2019 LOIS GR MD, Ot T87.81 DEHISCENCE OF AMPUTATION STUMP 05/16/2019 ANOSN QUINTANILLA Ot E78.2 MIXED HYPERLIPIDEMIA 05/16/2019 ANSON QUINTANILLA Ot I25.10 ATHSCL HEART DISEASE OF [place] CORONARY 05/16/2019 ANSON QUINTANILLA Ot I65.23 OCCLUSION AND STENOSIS OF BILATERAL [place] 05/16/2019 ANSON QUINTANILLA Ot I73.9 PERIPHERAL VASCULAR DISEASE, UNSPECIFIED 05/16/2019 OTTO MILLER MD, Ot L97.122 NON-PRESSURE CHRONIC ULCER OF LEFT THIGH 05/16/2019 ANGELA FERRARI, OTTO Mcdonough Ot M62.838 OTHER MUSCLE SPASM 05/16/2019 LOIS GR MD, Ot 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 [facility] 05/16/2019 LOIS GR MD, Ot L97.121 NON-PRS CHRONIC ULCER OF LEFT THIGH LIMI 05/16/2019 LOIS GR MD, Ot L97.122 NON-PRESSURE CHRONIC ULCER OF LEFT THIGH 05/16/2019 LOIS GR MD, Ot T87.81 DEHISCENCE OF AMPUTATION STUMP 05/16/2019 LOIS GR MD Ot I50.21 ACUTE SYSTOLIC (CONGESTIVE) HEART FAILUR 05/16/2019 LOIS GR MD, Ot 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 [facility] 05/16/2019 LOIS GR MD Ot L97.121 NON-PRS CHRONIC ULCER OF LEFT THIGH LIMI 05/16/2019 LOIS GR MD Ot L97.122 NON-PRESSURE CHRONIC ULCER OF LEFT THIGH 05/16/2019 LOIS GR MD Ot N18 .4 CHRONIC KIDNEY DISEASE, STAGE 4 (SEVERE) 05/16/2019 LOIS GR MD, Ot T87.81 DEHISCENCE OF AMPUTATION STUMP 05/16/2019 LOIS GR MD Ot 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 [facility] 05/16/2019 LOIS GR MD, Ot L97.121 NON-PRS CHRONIC ULCER OF LEFT THIGH LIMI 05/16/2019 LOIS GR MD, Ot L97.122 NON-PRESSURE CHRONIC ULCER OF LEFT THIGH 05/16/2019 LOIS GR MD, Ot T87.81 DEHISCENCE OF AMPUTATION STUMP 05/16/2019 MEL WOOD APRN Ot 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 [facility] 05/16/2019 MEL WOOD APRN Ot L97.121 NON-PRS CHRONIC ULCER OF LEFT THIGH LIMI 05/16/2019 MEL WOOD APRN Ot L97.122 NON-PRESSURE CHRONIC ULCER OF LEFT THIGH 05/16/2019 MEL WOOD APRN Ot T87.81 DEHISCENCE OF AMPUTATION STUMP 05/16/2019 LOIS GR MD Ot 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 [facility] 05/16/2019 LOIS GR MD, Ot L97.121 NON-PRS CHRONIC ULCER OF LEFT THIGH LIMI 05/16/2019 LOIS GR MD Ot L97.122 NON-PRESSURE CHRONIC ULCER OF LEFT THIGH 05/16/2019 LOIS GR MD, Ot T87.81 DEHISCENCE OF AMPUTATION STUMP 05/16/2019 LOIS GR MD Ot L97.122 NON-PRESSURE CHRONIC ULCER OF LEFT THIGH 05/16/2019 ANGELA FERRARI, OTTO Mcdonough Ot I11.0 HYPERTENSIVE HEART DISEASE WITH HEART FA 05/16/2019 OTTO MILLER MD Ot I50.9 HEART FAILURE, UNSPECIFIED 05/16/2019 LOIS GR MD Ot 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 [facility] 05/16/2019 LOIS GR MD, Ot L97.121 NON-PRS CHRONIC ULCER OF LEFT THIGH LIMI 05/16/2019 LOIS GR MD, Ot L97.122 NON-PRESSURE CHRONIC ULCER OF LEFT THIGH 05/16/2019 LOIS GR MD, Ot T87.81 DEHISCENCE OF AMPUTATION STUMP 05/16/2019 MANUEL BASS MD, Ot 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 05/16/2019 MANUEL BASS MD, Ot L97.121 NON-PRS CHRONIC ULCER OF LEFT THIGH LIMI 05/16/2019 MANUEL BASS MD, Ot L97.122 NON-PRESSURE CHRONIC ULCER OF LEFT THIGH 05/16/2019 MANUEL BASS MD, Ot T87. 81 DEHISCENCE OF AMPUTATION STUMP 05/16/2019 MANUEL BASS MD, Ot Z79. 01 SHELTER (CURRENT) USE OF ANTICOAGULANT 05/16/2019 LOIS GR MD, Ot 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 [facility] 05/16/2019 LOIS GR MD, Ot L97.122 NON-PRESSURE CHRONIC ULCER OF LEFT THIGH 05/16/2019 LOIS GR MD, Ot T65.222A TOXIC EFFECT OF TOBACCO CIGARETTES, SELF 05/16/2019 MANUEL BASS MD, Ot Z51. 81 ENCOUNTER FOR THERAPEUTIC DRUG LEVEL MON 05/16/2019 MANUEL BASS MD, Ot Z79. 01 SHELTER (CURRENT) USE OF ANTICOAGULANT 05/16/2019 MANUEL BASS MD, Ot Z95. 2 PRESENCE OF PROSTHETIC HEART VALVE 05/16/2019 LOIS GR MD, Ot 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 [facility] 05/16/2019 LOIS GR MD, Ot L97.122 NON-PRESSURE CHRONIC ULCER OF LEFT THIGH 05/16/2019 LOIS GR MD, Ot T65.222A TOXIC EFFECT OF TOBACCO CIGARETTES, SELF 05/16/2019 OTTO MILLER MD Ot S69.91XA UNSP INJURY OF RIGHT WRIST, HAND AND FIN 05/16/2019 MANUEL BASS MD, Ot Z51. 81 ENCOUNTER FOR THERAPEUTIC DRUG LEVEL MON 05/16/2019 MANUEL BASS MD, Ot Z79. 01 SHELTER (CURRENT) USE OF ANTICOAGULANT 05/16/2019 MANUEL BASS MD, Ot Z95. 2 PRESENCE OF PROSTHETIC HEART VALVE 05/16/2019 ANSON QUINTANILLA Ot E78.2 MIXED HYPERLIPIDEMIA 05/16/2019 ANSON QUINTANILLA Ot I08.3 COMB RHEUMATIC DISORD OF MITRAL, AORTIC 05/16/2019 ANSON QUINTANILLA Ot I10 ESSENTIAL (PRIMARY) HYPERTENSION 05/16/2019 ANSON QUINTANILLA Ot I25.10 ATHSCL HEART DISEASE OF [place] CORONARY 05/16/2019 ANSON QUINTANILLA Ot I65.29 OCCLUSION AND STENOSIS OF UNSPECIFIED CA 05/16/2019 ANSON QUINTANILLA Ot Z95.2 PRESENCE OF PROSTHETIC HEART VALVE 05/16/2019 MANUEL BASS MD, Ot Z51. 81 ENCOUNTER FOR THERAPEUTIC DRUG LEVEL MON 05/16/2019 MANUEL BASS MD, Ot Z79. 01 GAS PUMPER (CURRENT) USE OF ANTICOAGULANT 05/16/2019 MANUEL BASS MD, Ot Z95. 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 61 ANTICOAGULANTS,LT,CURRENT USE 05/19/2019 MANUEL BASS MD, Ot V58. 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 05/19/2019 MIKY CAVAZOS MEDICARE INTERVIEWER Ot 443.9 PERIPH VASCULAR DIS NOS 05/19/2019 MIKY CAVAZOS MEDICARE INTERVIEWER Ot 729.5 PAIN IN LIMB 05/19/2019 ANGELA FERRARI, OTTO Mcdonough Ot L03.032 CELLULITIS OF LEFT TOE 05/19/2019 MARINA ALMANZA APRN Ot E78.5 HYPERLIPIDEMIA, UNSPECIFIED 05/19/2019 MARINA ALMANZA APRN Ot I1 0 ESSENTIAL (PRIMARY) HYPERTENSION 05/19/2019 MARINA ALMANZA APRN Ot I25.10 ATHSCL HEART DISEASE OF [place] CORONARY 05/19/2019 MARINA ALMANZA APRN Ot I65.23 OCCLUSION AND STENOSIS OF BILATERAL [place] 05/19/2019 MARINA ALMANZA APRN Ot L03.032 CELLULITIS OF LEFT TOE 05/19/2019 MANUEL BASS MD Ot E78. 2 MIXED HYPERLIPIDEMIA 05/19/2019 MARINA ALMANZA APRN Ot L03.116 CELLULITIS OF LEFT LOWER LIMB 05/19/2019 MARINA ALMANZA APRN Ot R93.7 ABNORMAL FINDINGS ON DIAGNOSTIC IMAGING 05/19/2019 MARINA ALMANZA APRN Ot Z51.81 ENCOUNTER FOR THERAPEUTIC DRUG LEVEL MON 05/19/2019 MARINA ALMANZA APRN Ot Z79.01 GAS PUMPER (CURRENT) USE OF ANTICOAGULANT 05/19/2019 MANUEL BASS MD Ot E78. 5 HYPERLIPIDEMIA, UNSPECIFIED 05/19/2019 MANUEL BASS MD Ot I10 ESSENTIAL (PRIMARY) HYPERTENSION 05/19/2019 MANUEL BASS MD Ot I25. 10 ATHSCL HEART DISEASE OF [place] CORONARY 05/19/2019 MARINA ALMANZA APRN Ot Z51.81 ENCOUNTER FOR THERAPEUTIC DRUG LEVEL MON 05/19/2019 MARINA ALMANZA APRN Ot Z79.01 GAS PUMPER (CURRENT) USE OF ANTICOAGULANT 05/19/2019 LOIS GR MD Ot 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 05/19/2019 LOIS GR MD, Ot I87.323 CHRONIC VENOUS HTN W INFLAMMATION OF [place] 05/19/2019 LOIS GR MD, Ot L97.523 NON-PRS CHRONIC ULCER OTH PRT LEFT FOOT 05/19/2019 OTTO MILLER MD, Ot Z51.81 ENCOUNTER FOR THERAPEUTIC DRUG LEVEL MON 05/19/2019 OTTO MILLER MD, Ot Z79.01 GAS PUMPER (CURRENT) USE OF ANTICOAGULANT 05/19/2019 OTTO MILLER MD, Ot Z51.81 ENCOUNTER FOR THERAPEUTIC DRUG LEVEL MON 05/19/2019 OTTO MILLER MD, Ot Z79.01 SHELTER (CURRENT) USE OF ANTICOAGULANT 05/19/2019 OTTO MILLER MD, Ot Z95.2 PRESENCE OF PROSTHETIC HEART VALVE 05/19/2019 LOIS GR MD, Ot 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 01 SHELTER (CURRENT) USE OF ANTICOAGULANT 05/19/2019 MANUEL BASS MD, Ot Z95. 2 PRESENCE OF PROSTHETIC HEART VALVE 05/19/2019 MANUEL BASS MD, Ot Z51. 81 ENCOUNTER FOR THERAPEUTIC DRUG LEVEL MON 05/19/2019 MANUEL BASS MD, Ot Z79. 01 GAS PUMPER (CURRENT) USE OF ANTICOAGULANT 05/19/2019 MANUEL BASS MD Ot Z51. 81 ENCOUNTER FOR THERAPEUTIC DRUG LEVEL MON 05/19/2019 MANUEL BASS MD, Ot Z79. 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 81 ENCOUNTER FOR THERAPEUTIC DRUG LEVEL MON 05/19/2019 MANUEL BASS MD Ot Z79. 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 81 ENCOUNTER FOR THERAPEUTIC DRUG LEVEL MON 05/19/2019 MANUEL BASS MD Ot Z79. 01 GAS PUMPER (CURRENT) USE OF ANTICOAGULANT 05/19/2019 MARKUS FERRARI, LAURA Lord Ot I73 .9 PERIPHERAL VASCULAR DISEASE, UNSPECIFIED 05/19/2019 MANUEL ABSS MD Ot Z51. 81 ENCOUNTER FOR THERAPEUTIC DRUG LEVEL MON 05/19/2019 MANUEL BASS MD Ot Z79. 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 05/19/2019 LOIS GR MD Ot L97.122 NON-PRESSURE CHRONIC ULCER OF LEFT THIGH 05/19/2019 LOIS GR MD, Ot T87.81 DEHISCENCE OF AMPUTATION STUMP 05/19/2019 CAROLYN MOSQUEDA, ANSON Daniel Ot E78.2 MIXED HYPERLIPIDEMIA 05/19/2019 ANSON QUINTANILLA Ot I25.10 ATHSCL HEART DISEASE OF [place] CORONARY 05/19/2019 ANSON QUINTANILLA Ot I65.23 OCCLUSION AND STENOSIS OF BILATERAL HER[place]NDE[place] 05/19/2019 CAROLYN MOSQUEDA, ANSON Daniel Ot I73.9 PERIPHERAL VASCULAR DISEASE, UNSPECIFIED 05/19/2019 OTTO MILLER MD, Ot L97.122 NON-PRESSURE CHRONIC ULCER OF LEFT THIGH 05/19/2019 OTTO MILLER MD Ot M62.838 OTHER MUSCLE SPASM 05/19/2019 LOIS GR MD, Ot 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 [facility] 05/19/2019 LOIS GR MD, Ot L97.121 NON-PRS CHRONIC ULCER OF LEFT THIGH LIMI 05/19/2019 LOIS GR MD, Ot L97.122 NON-PRESSURE CHRONIC ULCER OF LEFT THIGH 05/19/2019 LOIS GR MD, Ot T87.81 DEHISCENCE OF AMPUTATION STUMP 05/19/2019 LOIS GR MD Ot I50.21 ACUTE SYSTOLIC (CONGESTIVE) HEART FAILUR 05/19/2019 LOIS GR MD, Ot 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 [facility] 05/19/2019 LOIS GR MD, Ot L97.121 NON-PRS CHRONIC ULCER OF LEFT THIGH LIMI 05/19/2019 LOIS GR MD, Ot L97.122 NON-PRESSURE CHRONIC ULCER OF LEFT THIGH 05/19/2019 LOIS GR MD Ot N18 .4 CHRONIC KIDNEY DISEASE, STAGE 4 (SEVERE) 05/19/2019 LOIS GR MD, Ot T87.81 DEHISCENCE OF AMPUTATION STUMP 05/19/2019 LOIS GR MD, Ot 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 [facility] 05/19/2019 LOIS GR MD, Ot L97.121 NON-PRS CHRONIC ULCER OF LEFT THIGH LIMI 05/19/2019 LOIS GR MD Ot L97.122 NON-PRESSURE CHRONIC ULCER OF LEFT THIGH 05/19/2019 LOIS GR MD, Ot T87.81 DEHISCENCE OF AMPUTATION STUMP 05/19/2019 MEL WOOD APRN Ot 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 [facility] 05/19/2019 MEL WOOD APRN Ot L97.121 NON-PRS CHRONIC ULCER OF LEFT THIGH LIMI 05/19/2019 MEL WOOD APRN Ot L97.122 NON-PRESSURE CHRONIC ULCER OF LEFT THIGH 05/19/2019 MEL WOOD APRN Ot T87.81 DEHISCENCE OF AMPUTATION STUMP 05/19/2019 LOIS GR MD, Ot 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 C 05/19/2019 LOIS GR MD, Ot L97.121 NON-PRS CHRONIC ULCER OF LEFT THIGH LIMI 05/19/2019 LOIS GR MD, Ot L97.122 NON-PRESSURE CHRONIC ULCER OF LEFT THIGH 05/19/2019 LOIS GR MD, Ot T87.81 DEHISCENCE OF AMPUTATION STUMP 05/19/2019 LOIS GR MD, Ot L97.122 NON-PRESSURE CHRONIC ULCER OF LEFT THIGH 05/19/2019 ANGELA FERRARI, OTTO Mcdonough Ot I11.0 HYPERTENSIVE HEART DISEASE WITH HEART FA 05/19/2019 OTTO MILLER MD Ot I50.9 HEART FAILURE, UNSPECIFIED 05/19/2019 LOIS GR MD Ot 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 [facility] 05/19/2019 LOIS GR MD Ot L97.121 NON-PRS CHRONIC ULCER OF LEFT THIGH LIMI 05/19/2019 LOIS GR MD Ot L97.122 NON-PRESSURE CHRONIC ULCER OF LEFT THIGH 05/19/2019 LOIS GR MD, Ot T87.81 DEHISCENCE OF AMPUTATION STUMP 05/19/2019 MANUEL BASS MD Ot 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 [facility] 05/19/2019 MANUEL BASS MD Ot L97.121 NON-PRS CHRONIC ULCER OF LEFT THIGH LIMI 05/19/2019 MANUEL BASS MD Ot L97.122 NON-PRESSURE CHRONIC ULCER OF LEFT THIGH 05/19/2019 MANUEL BASS MD Ot T87. 81 DEHISCENCE OF AMPUTATION STUMP 05/19/2019 MANUEL BASS MD, Ot Z79. 01 SHELTER (CURRENT) USE OF ANTICOAGULANT 05/19/2019 LOIS GR MD, Ot 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 [facility] 05/19/2019 LOIS GR MD, Ot L97.122 NON-PRESSURE CHRONIC ULCER OF LEFT THIGH 05/19/2019 LOIS GR MD, Ot T65.222A TOXIC EFFECT OF TOBACCO CIGARETTES, SELF 05/19/2019 MANUEL BASS MD, Ot Z51. 81 ENCOUNTER FOR THERAPEUTIC DRUG LEVEL MON 05/19/2019 MANUEL BASS MD, Ot Z79. 01 SHELTER (CURRENT) USE OF ANTICOAGULANT 05/19/2019 MANUEL BASS MD, Ot Z95. 2 PRESENCE OF PROSTHETIC HEART VALVE 05/19/2019 LOIS GR MD, Ot 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 [facility] 05/19/2019 LOIS GR MD, Ot L97.122 NON-PRESSURE CHRONIC ULCER OF LEFT THIGH 05/19/2019 LOIS GR MD, Ot T65.222A TOXIC EFFECT OF TOBACCO CIGARETTES, SELF 05/19/2019 OTTO MILLER MD Ot S69.91XA UNSP INJURY OF RIGHT WRIST, HAND AND FIN 05/19/2019 MANUEL BASS MD, Ot Z51. 81 ENCOUNTER FOR THERAPEUTIC DRUG LEVEL MON 05/19/2019 MANUEL BASS MD, Ot Z79. 01 GAS PUMPER (CURRENT) USE OF ANTICOAGULANT 05/19/2019 MANUEL BASS MD, Ot Z95. 2 PRESENCE OF PROSTHETIC HEART VALVE 05/19/2019 ANSON QUINTANILLA Ot E78.2 MIXED HYPERLIPIDEMIA 05/19/2019 ANSON QUINTANILLA Ot I08.3 COMB RHEUMATIC DISORD OF MITRAL, AORTIC 05/19/2019 ANSON QUINTANILLA Ot I10 ESSENTIAL (PRIMARY) HYPERTENSION 05/19/2019 ANSON QUINTANILLA Ot I25.10 ATHSCL HEART DISEASE OF [place] CORONARY 05/19/2019 ANSON QUINTANILLA Ot I65.29 OCCLUSION AND STENOSIS OF UNSPECIFIED CA 05/19/2019 ANSON QUINTANILLA Ot Z95.2 PRESENCE OF PROSTHETIC HEART VALVE 05/19/2019 MANUEL BASS MD Ot Z51. 81 ENCOUNTER FOR THERAPEUTIC DRUG LEVEL MON 05/19/2019 MANUEL BASS MD Ot Z79. 01 GAS PUMPER (CURRENT) USE OF ANTICOAGULANT 05/19/2019 MANUEL BASS MD Ot Z95. 2 PRESENCE OF PROSTHETIC HEART VALVE 05/19/2019 MARINA ALMANZA ISAAC Ot M25.532 PAIN IN LEFT WRIST 05/19/2019 MARINA ALMANZA MEDICARE INTERVIEWER Ot M79.642 PAIN IN LEFT HAND 05/19/2019 MARINA ALMANZA MEDICARE INTERVIEWER Ot W19.XXXA UNSPECIFIED FALL, INITIAL ENCOUNTER 05/20/2019 W L02.412 Ab scess of left axilla Cami, Marina 05/24/2019 W L02.412 Ab scess of left axilla Cami, Marina 05/25/2019 W L02.412 Ab scess of left axilla Cami, Marina 05/25/2019 W L03.112 Ce llulitis of left axilla Cami, Marina 05/25/2019 W L02.412 Ab scess of left axilla Cami, Marina 05/25/2019 W L02.412 Ab scess of left axilla Cami, Marina 05/25/2019 W L02.412 Ab scess of left axilla Cami, Marina 05/27/2019 W F32.1 Mary r depressive disorder, single episode, moderate Cami, Marina 05/27/2019 W F41.1 Gene ralized anxiety disorder [facility] 05/27/2019 W I10 Essent ial (primary) hypertension [facility] 05/27/2019 W R60.0 Loca lized edema Cami Marina 05/30/2019 FABI CABA MD Ot 414.00 CORON ATHEROSCLER NOS TYPE VESSEL, NATIV 05/30/2019 FABI CABA MD Ot 428.0 CONGESTIVE HEART FAILURE NOS 05/30/2019 MANUEL BASS MD Ot V58. 61 ANTICOAGULANTS,LT,CURRENT USE 05/30/2019 MANUEL BASS MD Ot V58. 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 05/30/2019 MIKY CAVAZOS MEDICARE INTERVIEWER Ot 443.9 PERIPH VASCULAR DIS NOS 05/30/2019 MIKY CAVAZOS MEDICARE INTERVIEWER Ot 729.5 PAIN IN LIMB 05/30/2019 ANGELA FERRARI, OTTO Mcdonough Ot L03.032 CELLULITIS OF LEFT TOE 05/30/2019 MARINA ALMANZA APRN Ot E78.5 HYPERLIPIDEMIA, UNSPECIFIED 05/30/2019 MARINA ALMANZA APRN Ot I1 0 ESSENTIAL (PRIMARY) HYPERTENSION 05/30/2019 MARINA ALMANZA APRN Ot I25.10 ATHSCL HEART DISEASE OF [place] CORONARY 05/30/2019 MARINA ALMANZA APRN Ot I65.23 OCCLUSION AND STENOSIS OF BILATERAL HER[place]NDE[place] 05/30/2019 MARINA ALMANZA APRN Ot L03.032 CELLULITIS OF LEFT TOE 05/30/2019 MANUEL BASS MD Ot E78. 2 MIXED HYPERLIPIDEMIA 05/30/2019 MARINA ALMANZA APRN Ot L03.116 CELLULITIS OF LEFT LOWER LIMB 05/30/2019 MARINA ALMANZA APRN Ot R93.7 ABNORMAL FINDINGS ON DIAGNOSTIC IMAGING 05/30/2019 MARINA ALMANZA APRN Ot Z51.81 ENCOUNTER FOR THERAPEUTIC DRUG LEVEL MON 05/30/2019 MARINA ALMANZA APRN Ot Z79.01 SHELTER (CURRENT) USE OF ANTICOAGULANT 05/30/2019 MANUEL BASS MD Ot E78. 5 HYPERLIPIDEMIA, UNSPECIFIED 05/30/2019 MANUEL BASS MD Ot I10 ESSENTIAL (PRIMARY) HYPERTENSION 05/30/2019 MANUEL BASS MD Ot I25. 10 ATHSCL HEART DISEASE OF [place] CORONARY 05/30/2019 MARINA ALMANZA APRN Ot Z51.81 ENCOUNTER FOR THERAPEUTIC DRUG LEVEL MON 05/30/2019 MARINA ALMANZA APRN Ot Z79.01 SHELTER (CURRENT) USE OF ANTICOAGULANT 05/30/2019 LOIS GR MD Ot 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 05/30/2019 LOIS GR MD, Ot I87.323 CHRONIC VENOUS HTN W INFLAMMATION OF [place] 05/30/2019 LOIS GR MD, Ot L97.523 NON-PRS CHRONIC ULCER OTH PRT LEFT FOOT 05/30/2019 OTTO MILLER MD, Ot Z51.81 ENCOUNTER FOR THERAPEUTIC DRUG LEVEL MON 05/30/2019 OTTO MILLER MD, Ot Z79.01 GAS PUMPER (CURRENT) USE OF ANTICOAGULANT 05/30/2019 OTTO MILLER MD, Ot Z51.81 ENCOUNTER FOR THERAPEUTIC DRUG LEVEL MON 05/30/2019 OTTO MILLER MD, Ot Z79.01 GAS PUMPER (CURRENT) USE OF ANTICOAGULANT 05/30/2019 OTTO MILLER MD, Ot Z95.2 PRESENCE OF PROSTHETIC HEART VALVE 05/30/2019 LOIS GR MD, Ot 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 05/30/2019 LOIS GR MD, Ot L97.123 NON-PRS CHRONIC ULCER OF LEFT THIGH W NE 05/30/2019 LOIS GR MD, Ot R54 AGE-RELATED PHYSICAL DEBILITY 05/30/2019 LOIS GR MD, Ot T86.821 SKIN GRAFT (ALLOGRAFT) (AUTOGRAFT) FAILU 05/30/2019 MANUEL BASS MD, Ot Z79. 01 SHELTER (CURRENT) USE OF ANTICOAGULANT 05/30/2019 MANUEL BASS MD, Ot Z95. 2 PRESENCE OF PROSTHETIC HEART VALVE 05/30/2019 MANUEL BASS MD, Ot Z51. 81 ENCOUNTER FOR THERAPEUTIC DRUG LEVEL MON 05/30/2019 MANUEL BASS MD, Ot Z79. 01 GAS PUMPER (CURRENT) USE OF ANTICOAGULANT 05/30/2019 MANUEL BASS MD Ot Z51. 81 ENCOUNTER FOR THERAPEUTIC DRUG LEVEL MON 05/30/2019 MANUEL BASS MD, Ot Z79. 01 SHELTER (CURRENT) USE OF ANTICOAGULANT 05/30/2019 LOIS GR MD, Ot 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 05/30/2019 LOIS GR MD, Ot L97.122 NON-PRESSURE CHRONIC ULCER OF LEFT THIGH 05/30/2019 LOIS GR MD, Ot T86.821 SKIN GRAFT (ALLOGRAFT) (AUTOGRAFT) FAILU 05/30/2019 LOIS GR MD, Ot T87.81 DEHISCENCE OF AMPUTATION STUMP 05/30/2019 MANUEL BASS MD Ot Z51. 81 ENCOUNTER FOR THERAPEUTIC DRUG LEVEL MON 05/30/2019 MANUEL BASS MD Ot Z79. 01 SHELTER (CURRENT) USE OF ANTICOAGULANT 05/30/2019 LOIS GR MD, Ot I70 .1 ATHEROSCLEROSIS OF RENAL ARTERY 05/30/2019 LOIS GR MD Ot I70.203 UNSP 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 EXTREMITI 05/30/2019 LOIS GR MD Ot I77 .1 STRICTURE OF ARTERY 05/30/2019 LOIS GR MD, Ot L97.123 NON-PRS CHRONIC ULCER OF LEFT THIGH W NE 05/30/2019 LOIS GR MD, Ot T87.81 DEHISCENCE OF AMPUTATION STUMP 05/30/2019 LOIS GR MD, Ot 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 05/30/2019 LOIS GR MD, Ot L97.123 NON-PRS CHRONIC ULCER OF LEFT THIGH W NE 05/30/2019 LOIS GR MD, Ot T87.81 DEHISCENCE OF AMPUTATION STUMP 05/30/2019 MANUEL BASS MD Ot Z51. 81 ENCOUNTER FOR THERAPEUTIC DRUG LEVEL MON 05/30/2019 MANUEL BASS MD Ot Z79. 01 SHELTER (CURRENT) USE OF ANTICOAGULANT 05/30/2019 LAURA APARICIO MD Ot I73 .9 PERIPHERAL VASCULAR DISEASE, UNSPECIFIED 05/30/2019 MANUEL BASS MD Ot Z51. 81 ENCOUNTER FOR THERAPEUTIC DRUG LEVEL MON 05/30/2019 MANUEL BASS MD Ot Z79. 01 GAS PUMPER (CURRENT) USE OF ANTICOAGULANT 05/30/2019 LOIS GR MD Ot L97.122 NON-PRESSURE CHRONIC ULCER OF LEFT THIGH 05/30/2019 LOIS GR MD Ot 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 05/30/2019 LOIS GR MD, Ot L97.123 NON-PRS CHRONIC ULCER OF LEFT THIGH W NE 05/30/2019 LOIS GR MD, Ot T87.81 DEHISCENCE OF AMPUTATION STUMP 05/30/2019 LOIS GR MD Ot 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 05/30/2019 LOIS GR MD Ot L97.122 NON-PRESSURE CHRONIC ULCER OF LEFT THIGH 05/30/2019 LOIS GR MD, Ot T87.81 DEHISCENCE OF AMPUTATION STUMP 05/30/2019 CAROLYN MOSQUEDA, ANSON Daniel Ot E78.2 MIXED HYPERLIPIDEMIA 05/30/2019 CAROLYN MOSQUEDA, ANSON Daniel Ot I25.10 ATHSCL HEART DISEASE OF [place] CORONARY 05/30/2019 CAROLYN MOSQUEDA, ANSON Daniel Ot I65.23 OCCLUSION AND STENOSIS OF BILATERAL [place] 05/30/2019 CAROLYN MOSQUEDA, ANSON Daniel Ot I73.9 PERIPHERAL VASCULAR DISEASE, UNSPECIFIED 05/30/2019 ANGELA FERRARI, OTTO Mcdonough Ot L97.122 NON-PRESSURE CHRONIC ULCER OF LEFT THIGH 05/30/2019 ANGELA FERRARI, OTTO Mcdonough Ot M62.838 OTHER MUSCLE SPASM 05/30/2019 LOIS GR MD, Ot 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 [facility] 05/30/2019 LOIS GR MD, Ot L97.121 NON-PRS CHRONIC ULCER OF LEFT THIGH LIMI 05/30/2019 LOIS GR MD, Ot L97.122 NON-PRESSURE CHRONIC ULCER OF LEFT THIGH 05/30/2019 LOIS GR MD, Ot T87.81 DEHISCENCE OF AMPUTATION STUMP 05/30/2019 LOIS GR MD, Ot I50.21 ACUTE SYSTOLIC (CONGESTIVE) HEART FAILUR 05/30/2019 LOIS GR MD, Ot 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 [facility] 05/30/2019 LOIS GR MD, Ot L97.121 NON-PRS CHRONIC ULCER OF LEFT THIGH LIMI 05/30/2019 LOIS GR MD, Ot L97.122 NON-PRESSURE CHRONIC ULCER OF LEFT THIGH 05/30/2019 LOIS GR MD, Ot N18 .4 CHRONIC KIDNEY DISEASE, STAGE 4 (SEVERE) 05/30/2019 LOIS GR MD, Ot T87.81 DEHISCENCE OF AMPUTATION STUMP 05/30/2019 LOIS GR MD, Ot 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 [facility] 05/30/2019 LOIS GR MD, Ot L97.121 NON-PRS CHRONIC ULCER OF LEFT THIGH LIMI 05/30/2019 LOIS GR MD, Ot L97.122 NON-PRESSURE CHRONIC ULCER OF LEFT THIGH 05/30/2019 LOIS GR MD, Ot T87.81 DEHISCENCE OF AMPUTATION STUMP 05/30/2019 MEL WOOD APRN Ot 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 [facility] 05/30/2019 MEL WOOD APRN Ot L97.121 NON-PRS CHRONIC ULCER OF LEFT THIGH LIMI 05/30/2019 MEL WOOD APRN Ot L97.122 NON-PRESSURE CHRONIC ULCER OF LEFT THIGH 05/30/2019 MEL WOOD APRN Ot T87.81 DEHISCENCE OF AMPUTATION STUMP 05/30/2019 LOIS GR MD, Ot 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 [facility] 05/30/2019 LOIS GR MD, Ot L97.121 NON-PRS CHRONIC ULCER OF LEFT THIGH LIMI 05/30/2019 LOIS GR MD, Ot L97.122 NON-PRESSURE CHRONIC ULCER OF LEFT THIGH 05/30/2019 LOIS GR MD, Ot T87.81 DEHISCENCE OF AMPUTATION STUMP 05/30/2019 LOIS GR MD, Ot L97.122 NON-PRESSURE CHRONIC ULCER OF LEFT THIGH 05/30/2019 ANGELA FERRARI, OTTO Mcdonough Ot I11.0 HYPERTENSIVE HEART DISEASE WITH HEART FA 05/30/2019 OTTO MILLER MD Ot I50.9 HEART FAILURE, UNSPECIFIED 05/30/2019 LOIS GR MD Ot 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 [facility] 05/30/2019 LOIS GR MD Ot L97.121 NON-PRS CHRONIC ULCER OF LEFT THIGH LIMI 05/30/2019 LOIS GR MD Ot L97.122 NON-PRESSURE CHRONIC ULCER OF LEFT THIGH 05/30/2019 LOIS GR MD, Ot T87.81 DEHISCENCE OF AMPUTATION STUMP 05/30/2019 MANUEL BASS MD Ot 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 [facility] 05/30/2019 MANUEL BASS MD, Ot L97.121 NON-PRS CHRONIC ULCER OF LEFT THIGH LIMI 05/30/2019 MANUEL BASS MD Ot L97.122 NON-PRESSURE CHRONIC ULCER OF LEFT THIGH 05/30/2019 MANUEL BASS MD Ot T87. 81 DEHISCENCE OF AMPUTATION STUMP 05/30/2019 MANUEL BASS MD, Ot Z79. 01 SHELTER (CURRENT) USE OF ANTICOAGULANT 05/30/2019 LOIS GR MD, Ot 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 C 05/30/2019 LOIS GR MD, Ot L97.122 NON-PRESSURE CHRONIC ULCER OF LEFT THIGH 05/30/2019 LOIS GR MD, Ot T65.222A TOXIC EFFECT OF TOBACCO CIGARETTES, SELF 05/30/2019 MANUEL BASS MD, Ot Z51. 81 ENCOUNTER FOR THERAPEUTIC DRUG LEVEL MON 05/30/2019 MANUEL BASS MD, Ot Z79. 01 SHELTER (CURRENT) USE OF ANTICOAGULANT 05/30/2019 MANUEL BASS MD, Ot Z95. 2 PRESENCE OF PROSTHETIC HEART VALVE 05/30/2019 LOIS GR MD, Ot 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 [facility] 05/30/2019 LOIS GR MD, Ot L97.122 NON-PRESSURE CHRONIC ULCER OF LEFT THIGH 05/30/2019 LOIS GR MD, Ot T65.222A TOXIC EFFECT OF TOBACCO CIGARETTES, SELF 05/30/2019 OTTO MILLER MD Ot S69.91XA UNSP INJURY OF RIGHT WRIST, HAND AND FIN 05/30/2019 MANUEL BASS MD, Ot Z51. 81 ENCOUNTER FOR THERAPEUTIC DRUG LEVEL MON 05/30/2019 MANUEL BASS MD, Ot Z79. 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 81 ENCOUNTER FOR THERAPEUTIC DRUG LEVEL MON 05/30/2019 MANUEL BASS MD, Ot Z79. 01 SHELTER (CURRENT) USE OF ANTICOAGULANT 05/30/2019 MANUEL BASS MD Ot Z95. 2 PRESENCE OF PROSTHETIC HEART VALVE 05/30/2019 MARINA ALMANZA APRN Ot M25.532 PAIN IN LEFT WRIST 05/30/2019 MARINA ALMANZA MEDICARE INTERVIEWER Ot M79.642 PAIN IN LEFT HAND 05/30/2019 MARINA ALMANZA MEDICARE INTERVIEWER Ot W19.XXXA UNSPECIFIED FALL, INITIAL ENCOUNTER 05/30/2019 NAA CALDWELL APRN Ot E11.40 TYPE 2 DIABETES MELLITUS WITH DIABETIC N 05/30/2019 NAA CALDWELL APRN Ot E11.51 TYPE 2 DIABETES W DIABETIC PERIPHERAL AN 05/30/2019 NAA CALDWELL APRN Ot I10 ESSENTIAL (PRIMARY) HYPERTENSION 05/30/2019 NAA CALDWELL APRN Ot I25.10 ATHSCL HEART DISEASE OF [place] CORONARY 05/30/2019 NAA CALDWELL APRN Ot R04 .0 EPISTAXIS 05/30/2019 NAA CALDWELL APRN Ot R79 .1 ABNORMAL COAGULATION PROFILE 05/30/2019 NAA CALDWELL APRN Ot Z79.01 GAS PUMPER (CURRENT) USE OF ANTICOAGULANT 05/30/2019 NAA CALDWELL APRN Ot Z79.82 SHELTER (CURRENT) USE OF ASPIRIN 05/30/2019 NAA CALDWELL APRN Ot Z87.891 PERSONAL HISTORY OF NICOTINE DEPENDENCE 05/30/2019 NAA CALDWELL APRN Ot 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 61 ANTICOAGULANTS,LT,CURRENT USE 05/30/2019 MANUEL BASS MD, Ot V58. 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 05/30/2019 MIKY CAVAZOS MEDICARE INTERVIEWER Ot 443.9 PERIPH VASCULAR DIS NOS 05/30/2019 MIKY CAVAZOS MEDICARE INTERVIEWER Ot 729.5 PAIN IN LIMB 05/30/2019 ANGELA FERRARI, OTTO Mcdonough Ot L03.032 CELLULITIS OF LEFT TOE 05/30/2019 MARINA ALMANZA APRN Ot E78.5 HYPERLIPIDEMIA, UNSPECIFIED 05/30/2019 MARINA ALMANZA APRN Ot I1 0 ESSENTIAL (PRIMARY) HYPERTENSION 05/30/2019 MARINA ALMANZA APRN Ot I25.10 ATHSCL HEART DISEASE OF [place] CORONARY 05/30/2019 MARINA ALMANZA APRN Ot I65.23 OCCLUSION AND STENOSIS OF BILATERAL HER[place]NDEZ 05/30/2019 MARINA ALMANZA APRN Ot L03.032 CELLULITIS OF LEFT TOE 05/30/2019 MANUEL BASS MD Ot E78. 2 MIXED HYPERLIPIDEMIA 05/30/2019 MARINA ALMANZA APRN Ot L03.116 CELLULITIS OF LEFT LOWER LIMB 05/30/2019 MARINA ALMANZA APRN Ot R93.7 ABNORMAL FINDINGS ON DIAGNOSTIC IMAGING 05/30/2019 MARINA ALMANZA APRN Ot Z51.81 ENCOUNTER FOR THERAPEUTIC DRUG LEVEL MON 05/30/2019 MARINA ALMANZA APRN Ot Z79.01 SHELTER (CURRENT) USE OF ANTICOAGULANT 05/30/2019 MANUEL BASS MD Ot E78. 5 HYPERLIPIDEMIA, UNSPECIFIED 05/30/2019 MANUEL BASS MD Ot I10 ESSENTIAL (PRIMARY) HYPERTENSION 05/30/2019 MANUEL BASS MD Ot I25. 10 ATHSCL HEART DISEASE OF [place] CORONARY 05/30/2019 MARINA ALMANZA APRN Ot Z51.81 ENCOUNTER FOR THERAPEUTIC DRUG LEVEL MON 05/30/2019 MARINA ALMANZA APRN Ot Z79.01 GAS PUMPER (CURRENT) USE OF ANTICOAGULANT 05/30/2019 LOIS GR MD, Ot 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 05/30/2019 LOIS GR MD, Ot I87.323 CHRONIC VENOUS HTN W INFLAMMATION OF [place] 05/30/2019 LOIS GR MD, Ot L97.523 NON-PRS CHRONIC ULCER OTH PRT LEFT FOOT 05/30/2019 OTTO MILLER MD, Ot Z51.81 ENCOUNTER FOR THERAPEUTIC DRUG LEVEL MON 05/30/2019 OTTO MILLER MD Ot Z79.01 GAS PUMPER (CURRENT) USE OF ANTICOAGULANT 05/30/2019 OTTO MILLER MD Ot Z51.81 ENCOUNTER FOR THERAPEUTIC DRUG LEVEL MON 05/30/2019 OTTO MILLER MD, Ot Z79.01 GAS PUMPER (CURRENT) USE OF ANTICOAGULANT 05/30/2019 OTTO MILLER MD Ot Z95.2 PRESENCE OF PROSTHETIC HEART VALVE 05/30/2019 LOIS GR MD, Ot 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 05/30/2019 LOIS GR MD, Ot L97.123 NON-PRS CHRONIC ULCER OF LEFT THIGH W NE 05/30/2019 LOIS GR MD Ot R54 AGE-RELATED PHYSICAL DEBILITY 05/30/2019 LOIS GR MD, Ot T86.821 SKIN GRAFT (ALLOGRAFT) (AUTOGRAFT) FAILU 05/30/2019 MANUEL BASS MD, Ot Z79. 01 SHELTER (CURRENT) USE OF ANTICOAGULANT 05/30/2019 MANUEL BASS MD, Ot Z95. 2 PRESENCE OF PROSTHETIC HEART VALVE 05/30/2019 MANUEL BASS MD Ot Z51. 81 ENCOUNTER FOR THERAPEUTIC DRUG LEVEL MON 05/30/2019 MANUEL BASS MD, Ot Z79. 01 SHELTER (CURRENT) USE OF ANTICOAGULANT 05/30/2019 MANUEL BASS MD, Ot Z51. 81 ENCOUNTER FOR THERAPEUTIC DRUG LEVEL MON 05/30/2019 MANUEL BASS MD, Ot Z79. 01 GAS PUMPER (CURRENT) USE OF ANTICOAGULANT 05/30/2019 LOIS GR MD, Ot 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 05/30/2019 LOIS GR MD, Ot L97.122 NON-PRESSURE CHRONIC ULCER OF LEFT THIGH 05/30/2019 LOIS GR MD, Ot T86.821 SKIN GRAFT (ALLOGRAFT) (AUTOGRAFT) FAILU 05/30/2019 LOIS GR MD, Ot T87.81 DEHISCENCE OF AMPUTATION STUMP 05/30/2019 MANUEL BASS MD, Ot Z51. 81 ENCOUNTER FOR THERAPEUTIC DRUG LEVEL MON 05/30/2019 MANUEL BASS MD, Ot Z79. 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 81 ENCOUNTER FOR THERAPEUTIC DRUG LEVEL MON 05/30/2019 MANUEL BASS MD, Ot Z79. 01 GAS PUMPER (CURRENT) USE OF ANTICOAGULANT 05/30/2019 LAURA APARICIO MD Ot I73 .9 PERIPHERAL VASCULAR DISEASE, UNSPECIFIED 05/30/2019 MANUEL BASS MD, Ot Z51. 81 ENCOUNTER FOR THERAPEUTIC DRUG LEVEL MON 05/30/2019 MANUEL BASS MD, Ot Z79. 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 05/30/2019 LOIS GR MD, Ot L97.123 NON-PRS CHRONIC ULCER OF LEFT THIGH W NE 05/30/2019 LOIS GR MD, Ot T87.81 DEHISCENCE OF AMPUTATION STUMP 05/30/2019 LOIS GR MD, Ot 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 [facility] 05/30/2019 LOIS GR MD, Ot L97.122 NON-PRESSURE CHRONIC ULCER OF LEFT THIGH 05/30/2019 LOIS GR MD, Ot T87.81 DEHISCENCE OF AMPUTATION STUMP 05/30/2019 ANSON QUINTANILLA Ot E78.2 MIXED HYPERLIPIDEMIA 05/30/2019 CAROLYN MOSQUEDA, ANSON Daniel Ot I25.10 ATHSCL HEART DISEASE OF [place] CORONARY 05/30/2019 CAROLYN MOSQUEDA, ANSON Daniel Ot I65.23 OCCLUSION AND STENOSIS OF [place] 05/30/2019 ANSON QUINTANILLA Ot I73.9 PERIPHERAL VASCULAR DISEASE, UNSPECIFIED 05/30/2019 ANGELA FERRARI, OTTO Mcdonough Ot L97.122 NON-PRESSURE CHRONIC ULCER OF LEFT THIGH 05/30/2019 OTTO MILLER MD, Ot M62.838 OTHER MUSCLE SPASM 05/30/2019 LOIS GR MD, Ot 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 [facility] 05/30/2019 LOIS GR MD, Ot L97.121 NON-PRS CHRONIC ULCER OF LEFT THIGH [place] 05/30/2019 LOIS GR MD, Ot L97.122 NON-PRESSURE CHRONIC ULCER OF LEFT THIGH 05/30/2019 LOIS GR MD, Ot T87.81 DEHISCENCE OF AMPUTATION STUMP 05/30/2019 LOIS GR MD, Ot I50.21 ACUTE SYSTOLIC (CONGESTIVE) HEART FAILUR 05/30/2019 LOIS GR MD, Ot 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 [facility] 05/30/2019 LOIS GR MD, Ot L97.121 NON-PRS CHRONIC ULCER OF LEFT THIGH LIMI 05/30/2019 LOIS GR MD, Ot L97.122 NON-PRESSURE CHRONIC ULCER OF LEFT THIGH 05/30/2019 LOIS GR MD, Ot N18 .4 CHRONIC KIDNEY DISEASE, STAGE 4 (SEVERE) 05/30/2019 LOIS GR MD, Ot T87.81 DEHISCENCE OF AMPUTATION STUMP 05/30/2019 LOIS GR MD, Ot 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 [facility] 05/30/2019 LOIS GR MD, Ot L97.121 NON-PRS CHRONIC ULCER OF LEFT THIGH LIM[place] 05/30/2019 LOIS GR MD Ot L97.122 NON-PRESSURE CHRONIC ULCER OF LEFT THIGH 05/30/2019 LOIS GR MD, Ot T87.81 DEHISCENCE OF AMPUTATION STUMP 05/30/2019 MEL WOOD APRN Ot 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 [facility] 05/30/2019 MEL WOOD APRN Ot L97.121 NON-PRS CHRONIC ULCER OF LEFT THIGH [place] 05/30/2019 MEL WOOD APRN Ot L97.122 NON-PRESSURE CHRONIC ULCER OF LEFT THIGH 05/30/2019 MEL WOOD APRN Ot T87.81 DEHISCENCE OF AMPUTATION STUMP 05/30/2019 LOIS GR MD, Ot 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 [facility] 05/30/2019 LOIS GR MD, Ot L97.121 NON-PRS CHRONIC ULCER OF LEFT THIGH [place] 05/30/2019 LOIS GR MD, Ot L97.122 NON-PRESSURE CHRONIC ULCER OF LEFT THIGH 05/30/2019 LOIS GR MD, Ot T87.81 DEHISCENCE OF AMPUTATION STUMP 05/30/2019 LOIS GR MD Ot L97.122 NON-PRESSURE CHRONIC ULCER OF LEFT THIGH 05/30/2019 ANGELA FERRARI, OTTO Mcdonough Ot I11.0 HYPERTENSIVE HEART DISEASE WITH HEART FA 05/30/2019 OTTO MILLER MD Ot I50.9 HEART FAILURE, UNSPECIFIED 05/30/2019 LOIS GR MD Ot 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 [facility] 05/30/2019 LOIS GR MD, Ot L97.121 NON-PRS CHRONIC ULCER OF LEFT THIGH [place] 05/30/2019 LOIS GR MD Ot L97.122 NON-PRESSURE CHRONIC ULCER OF LEFT THIGH 05/30/2019 LOIS GR MD, Ot T87.81 DEHISCENCE OF AMPUTATION STUMP 05/30/2019 MANUEL BASS MD Ot 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 [facility] 05/30/2019 MANUEL BASS MD Ot L97.121 NON-PRS CHRONIC ULCER OF LEFT THIGH [place] 05/30/2019 MANUEL BASS MD Ot L97.122 NON-PRESSURE CHRONIC ULCER OF LEFT THIGH 05/30/2019 MANUEL BASS MD, Ot T87. 81 DEHISCENCE OF AMPUTATION STUMP 05/30/2019 MANUEL BASS MD, Ot Z79. 01 GAS PUMPER (CURRENT) USE OF ANTICOAGULANT 05/30/2019 LOIS GR MD, Ot 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 C 05/30/2019 LOIS GR MD, Ot L97.122 NON-PRESSURE CHRONIC ULCER OF LEFT THIGH 05/30/2019 LOIS GR MD, Ot T65.222A TOXIC EFFECT OF TOBACCO CIGARETTES, SELF 05/30/2019 MANUEL BASS MD, Ot Z51. 81 ENCOUNTER FOR THERAPEUTIC DRUG LEVEL MON 05/30/2019 MANUEL BASS MD, Ot Z79. 01 GAS PUMPER (CURRENT) USE OF ANTICOAGULANT 05/30/2019 MANUEL BASS MD, Ot Z95. 2 PRESENCE OF PROSTHETIC HEART VALVE 05/30/2019 LOIS GR MD, Ot 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 [facility] 05/30/2019 LOIS GR MD, Ot L97.122 NON-PRESSURE CHRONIC ULCER OF LEFT THIGH 05/30/2019 LOIS GR MD, Ot T65.222A TOXIC EFFECT OF TOBACCO CIGARETTES, SELF 05/30/2019 OTTO MILLER MD Ot S69.91XA UNSP INJURY OF RIGHT WRIST, HAND AND FIN 05/30/2019 MANUEL BASS MD, Ot Z51. 81 ENCOUNTER FOR THERAPEUTIC DRUG LEVEL MON 05/30/2019 MANUEL BASS MD, Ot Z79. 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 81 ENCOUNTER FOR THERAPEUTIC DRUG LEVEL MON 05/30/2019 MANUEL BASS MD, Ot Z79. 01 GAS PUMPER (CURRENT) USE OF ANTICOAGULANT 05/30/2019 MANUEL BASS MD, Ot Z95. 2 PRESENCE OF PROSTHETIC HEART VALVE 05/30/2019 MARINA ALMANZA APRN Ot M25.532 PAIN IN LEFT WRIST 05/30/2019 MARINA ALMANZA MEDICARE INTERVIEWER Ot M79.642 PAIN IN LEFT HAND 05/30/2019 MARINA ALMANZA APRN Ot W19.XXXA UNSPECIFIED FALL, INITIAL ENCOUNTER 06/06/2019 NAA CALDWELL APRN Ot E11.40 TYPE 2 DIABETES MELLITUS WITH DIABETIC N 06/06/2019 NAA CALDWELL APRN Ot E11.51 TYPE 2 DIABETES W DIABETIC PERIPHERAL AN 06/06/2019 NAA CALDWELL APRN Ot I10 ESSENTIAL (PRIMARY) HYPERTENSION 06/06/2019 NAA CALDWELL APRN Ot I25.10 ATHSCL HEART DISEASE OF [place] CORONARY 06/06/2019 NAA CALDWELL APRN Ot R04 .0 EPISTAXIS 06/06/2019 NAA CALDWELL APRN Ot R79 .1 ABNORMAL COAGULATION PROFILE 06/06/2019 NAA CALDWELL APRN Ot Z79.01 SHELTER (CURRENT) USE OF ANTICOAGULANT 06/06/2019 NAA CALDWELL APRN Ot Z79.82 GAS PUMPER (CURRENT) USE OF ASPIRIN 06/06/2019 NAA CALDWELL APRN Ot Z87.891 PERSONAL HISTORY OF NICOTINE DEPENDENCE 06/06/2019 NAA CALDWELL APRN Ot 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 61 ANTICOAGULANTS,LT,CURRENT USE 06/09/2019 MANUEL BASS MD Ot V58. 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 06/09/2019 MIKY CAVAZOS APRN Ot 443.9 PERIPH VASCULAR DIS NOS 06/09/2019 MIKY CAVAZOS MEDICARE INTERVIEWER Ot 729.5 PAIN IN LIMB 06/09/2019 ANGELA FERRARI, OTTO Mcdonough Ot L03.032 CELLULITIS OF LEFT TOE 06/09/2019 MARINA ALMANZA APRN Ot E78.5 HYPERLIPIDEMIA, UNSPECIFIED 06/09/2019 MARINA ALMANZA APRN Ot I1 0 ESSENTIAL (PRIMARY) HYPERTENSION 06/09/2019 MARINA ALMANZA APRN Ot I25.10 ATHSCL HEART DISEASE OF [place] CORONARY 06/09/2019 MARINA ALMANZA APRN Ot I65.23 OCCLUSION AND STENOSIS OF BILATERAL HER[place]NDEZ 06/09/2019 MARINA ALMANZA APRN Ot L03.032 CELLULITIS OF LEFT TOE 06/09/2019 MANUEL BASS MD Ot E78. 2 MIXED HYPERLIPIDEMIA 06/09/2019 MARINA ALMANZA APRN Ot L03.116 CELLULITIS OF LEFT LOWER LIMB 06/09/2019 MARINA ALMANZA APRN Ot R93.7 ABNORMAL FINDINGS ON DIAGNOSTIC IMAGING 06/09/2019 MARINA ALMANZA APRN Ot Z51.81 ENCOUNTER FOR THERAPEUTIC DRUG LEVEL MON 06/09/2019 MARINA ALMANZA APRN Ot Z79.01 SHELTER (CURRENT) USE OF ANTICOAGULANT 06/09/2019 MANUEL BASS MD Ot E78. 5 HYPERLIPIDEMIA, UNSPECIFIED 06/09/2019 MANUEL BASS MD Ot I10 ESSENTIAL (PRIMARY) HYPERTENSION 06/09/2019 MANUEL BASS MD Ot I25. 10 ATHSCL HEART DISEASE OF [place] CORONARY 06/09/2019 MARINA ALMANZA APRN Ot Z51.81 ENCOUNTER FOR THERAPEUTIC DRUG LEVEL MON 06/09/2019 MARINA ALMANZA APRN Ot Z79.01 GAS PUMPER (CURRENT) USE OF ANTICOAGULANT 06/09/2019 LOIS GR MD, Ot I70.245 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 [facility] 06/09/2019 LOIS GR MD, Ot I87.323 CHRONIC VENOUS HTN W INFLAMMATION OF [place] 06/09/2019 LOIS GR MD, Ot L97.523 NON-PRS CHRONIC ULCER OTH PRT LEFT FOOT 06/09/2019 OTTO MILLER MD, Ot Z51.81 ENCOUNTER FOR THERAPEUTIC DRUG LEVEL MON 06/09/2019 OTTO MILLER MD, Ot Z79.01 GAS PUMPER (CURRENT) USE OF ANTICOAGULANT 06/09/2019 OTTO MILLER MD, Ot Z51.81 ENCOUNTER FOR THERAPEUTIC DRUG LEVEL MON 06/09/2019 OTTO MILLER MD, Ot Z79.01 SHELTER (CURRENT) USE OF ANTICOAGULANT 06/09/2019 OTTO MILLER MD, Ot Z95.2 PRESENCE OF PROSTHETIC HEART VALVE 06/09/2019 LOIS GR MD, Ot 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 [facility] 06/09/2019 LOIS GR MD, Ot L97.123 NON-PRS CHRONIC ULCER OF LEFT THIGH W NE 06/09/2019 LOIS GR MD, Ot R54 AGE-RELATED PHYSICAL DEBILITY 06/09/2019 LOIS GR MD, Ot T86.821 SKIN GRAFT (ALLOGRAFT) (AUTOGRAFT) FAILU 06/09/2019 MANUEL BASS MD, Ot Z79. 01 SHELTER (CURRENT) USE OF ANTICOAGULANT 06/09/2019 MANUEL BASS MD, Ot Z95. 2 PRESENCE OF PROSTHETIC HEART VALVE 06/09/2019 MANUEL BASS MD, Ot Z51. 81 ENCOUNTER FOR THERAPEUTIC DRUG LEVEL MON 06/09/2019 MANUEL BASS MD, Ot Z79. 01 GAS PUMPER (CURRENT) USE OF ANTICOAGULANT 06/09/2019 MANUEL BASS MD, Ot Z51. 81 ENCOUNTER FOR THERAPEUTIC DRUG LEVEL MON 06/09/2019 MANUEL BASS MD, Ot Z79. 01 SHELTER (CURRENT) USE OF ANTICOAGULANT 06/09/2019 LOIS GR MD, Ot 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 [facility] 06/09/2019 LOIS GR MD, Ot L97.122 NON-PRESSURE CHRONIC ULCER OF LEFT THIGH 06/09/2019 LOIS GR MD, Ot T86.821 SKIN GRAFT (ALLOGRAFT) (AUTOGRAFT) FAILU 06/09/2019 LOIS GR MD, Ot T87.81 DEHISCENCE OF AMPUTATION STUMP 06/09/2019 MANUEL BASS MD, Ot Z51. 81 ENCOUNTER FOR THERAPEUTIC DRUG LEVEL MON 06/09/2019 MANUEL BASS MD, Ot Z79. 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 81 ENCOUNTER FOR THERAPEUTIC DRUG LEVEL MON 06/09/2019 MANUEL BASS MD, Ot Z79. 01 SHELTER (CURRENT) USE OF ANTICOAGULANT 06/09/2019 LAURA APARICIO MD Ot I73 .9 PERIPHERAL VASCULAR DISEASE, UNSPECIFIED 06/09/2019 MANUEL BASS MD, Ot Z51. 81 ENCOUNTER FOR THERAPEUTIC DRUG LEVEL MON 06/09/2019 MANUEL BASS MD, Ot Z79. 01 GAS PUMPER (CURRENT) USE OF ANTICOAGULANT 06/09/2019 LOIS GR MD, Ot L97.122 NON-PRESSURE CHRONIC ULCER OF LEFT THIGH 06/09/2019 LOIS GR MD Ot 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 C 06/09/2019 MAILE MD, LOIS G Ot L97.123 NON-PRS CHRONIC ULCER OF LEFT THIGH W NE 06/09/2019 LOIS GR MD, Ot T87.81 DEHISCENCE OF AMPUTATION STUMP 06/09/2019 LOIS GR MD, Ot 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 C 06/09/2019 LOIS GR MD, Ot L97.122 NON-PRESSURE CHRONIC ULCER OF LEFT THIGH 06/09/2019 LOIS GR MD, Ot T87.81 DEHISCENCE OF AMPUTATION STUMP 06/09/2019 ANSON QUINTANILLA Ot E78.2 MIXED HYPERLIPIDEMIA 06/09/2019 ANSON QUINTANILLA Ot I25.10 ATHSCL HEART DISEASE OF [place] CORONARY 06/09/2019 ANSON QUINTANILLA Ot I65.23 OCCLUSION AND STENOSIS OF BILATERAL HER[place] 06/09/2019 ANSON QUINTANILLA Ot I73.9 PERIPHERAL VASCULAR DISEASE, UNSPECIFIED 06/09/2019 OTTO MILLER MD, Ot L97.122 NON-PRESSURE CHRONIC ULCER OF LEFT THIGH 06/09/2019 OTTO MILLER MD Ot M62.838 OTHER MUSCLE SPASM 06/09/2019 LOIS GR MD, Ot 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 [facility] 06/09/2019 LOIS GR MD, Ot L97.121 NON-PRS CHRONIC ULCER OF LEFT THIGH LIMI 06/09/2019 LOIS GR MD, Ot L97.122 NON-PRESSURE CHRONIC ULCER OF LEFT THIGH 06/09/2019 LOIS GR MD, Ot T87.81 DEHISCENCE OF AMPUTATION STUMP 06/09/2019 LOIS GR MD Ot I50.21 ACUTE SYSTOLIC (CONGESTIVE) HEART FAILUR 06/09/2019 LOIS GR MD Ot 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 [facility] 06/09/2019 LOIS GR MD Ot L97.121 NON-PRS CHRONIC ULCER OF LEFT THIGH LIM[place] 06/09/2019 LOIS GR MD Ot L97.122 NON-PRESSURE CHRONIC ULCER OF LEFT THIGH 06/09/2019 LOIS GR MD Ot N18 .4 CHRONIC KIDNEY DISEASE, STAGE 4 (SEVERE) 06/09/2019 LOIS GR MD, Ot T87.81 DEHISCENCE OF AMPUTATION STUMP 06/09/2019 LOIS GR MD Ot 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 [facility] 06/09/2019 LOIS GR MD, Ot L97.121 NON-PRS CHRONIC ULCER OF LEFT THIGH LIMI 06/09/2019 LOIS GR MD Ot L97.122 NON-PRESSURE CHRONIC ULCER OF LEFT THIGH 06/09/2019 LOIS GR MD, Ot T87.81 DEHISCENCE OF AMPUTATION STUMP 06/09/2019 MEL WOOD APRN Ot 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 [facility] 06/09/2019 MEL WOOD APRN Ot L97.121 NON-PRS CHRONIC ULCER OF LEFT THIGH LIMI 06/09/2019 MEL WOOD APRN Ot L97.122 NON-PRESSURE CHRONIC ULCER OF LEFT THIGH 06/09/2019 MEL WOOD APRN Ot T87.81 DEHISCENCE OF AMPUTATION STUMP 06/09/2019 LOIS GR MD, Ot 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 [facility] 06/09/2019 LOIS GR MD, Ot L97.121 NON-PRS CHRONIC ULCER OF LEFT THIGH LIMI 06/09/2019 LOIS GR MD Ot L97.122 NON-PRESSURE CHRONIC ULCER OF LEFT THIGH 06/09/2019 LOIS GR MD, Ot T87.81 DEHISCENCE OF AMPUTATION STUMP 06/09/2019 LOIS GR MD Ot L97.122 NON-PRESSURE CHRONIC ULCER OF LEFT THIGH 06/09/2019 OTTO MILLER MD Ot I11.0 HYPERTENSIVE HEART DISEASE WITH HEART FA 06/09/2019 OTTO MILLER MD Ot I50.9 HEART FAILURE, UNSPECIFIED 06/09/2019 LOIS GR MD Ot 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 [facility] 06/09/2019 LOIS GR MD Ot L97.121 NON-PRS CHRONIC ULCER OF LEFT THIGH LIMI 06/09/2019 LOIS GR MD Ot L97.122 NON-PRESSURE CHRONIC ULCER OF LEFT THIGH 06/09/2019 LOIS GR MD, Ot T87.81 DEHISCENCE OF AMPUTATION STUMP 06/09/2019 MANUEL BASS MD Ot 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 [facility] 06/09/2019 MANUEL BASS MD, Ot L97.121 NON-PRS CHRONIC ULCER OF LEFT THIGH LIMI 06/09/2019 MANUEL BASS MD, Ot L97.122 NON-PRESSURE CHRONIC ULCER OF LEFT THIGH 06/09/2019 MANUEL BASS MD, Ot T87. 81 DEHISCENCE OF AMPUTATION STUMP 06/09/2019 MANUEL BASS MD, Ot Z79. 01 GAS PUMPER (CURRENT) USE OF ANTICOAGULANT 06/09/2019 LOIS GR MD, Ot 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 C 06/09/2019 LOIS GR MD, Ot L97.122 NON-PRESSURE CHRONIC ULCER OF LEFT THIGH 06/09/2019 LOIS GR MD, Ot T65.222A TOXIC EFFECT OF TOBACCO CIGARETTES, SELF 06/09/2019 MANUEL BASS MD, Ot Z51. 81 ENCOUNTER FOR THERAPEUTIC DRUG LEVEL MON 06/09/2019 MANUEL BASS MD, Ot Z79. 01 GAS PUMPER (CURRENT) USE OF ANTICOAGULANT 06/09/2019 MANUEL BASS MD, Ot Z95. 2 PRESENCE OF PROSTHETIC HEART VALVE 06/09/2019 LOIS GR MD, Ot 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 [facility] 06/09/2019 LOIS GR MD, Ot L97.122 NON-PRESSURE CHRONIC ULCER OF LEFT THIGH 06/09/2019 LOIS GR MD, Ot T65.222A TOXIC EFFECT OF TOBACCO CIGARETTES, SELF 06/09/2019 ANGELA FERRARI, OTTO Mcdonough Ot S69.91XA UNSP INJURY OF RIGHT WRIST, HAND AND FIN 06/09/2019 MANUEL BASS MD, Ot Z51. 81 ENCOUNTER FOR THERAPEUTIC DRUG LEVEL MON 06/09/2019 MANUEL BASS MD, Ot Z79. 01 SHELTER (CURRENT) USE OF ANTICOAGULANT 06/09/2019 MANUEL BASS MD, Ot Z95. 2 PRESENCE OF PROSTHETIC HEART VALVE 06/09/2019 ANSON QUINTANILLA Ot E78.2 MIXED HYPERLIPIDEMIA 06/09/2019 ANSON QUINTANILLA Ot I08.3 COMB RHEUMATIC DISORD OF MITRAL, AORTIC 06/09/2019 ANSON QUINTANILLA Ot I10 ESSENTIAL (PRIMARY) HYPERTENSION 06/09/2019 TRINIDAD-ISRAEL PA, ANSON K Ot I25.10 ATHSCL HEART DISEASE OF [place] CORONARY 06/09/2019 ANSON QUINTANILLA Ot I65.29 OCCLUSION AND STENOSIS OF UNSPECIFIED CA 06/09/2019 ANSON QUINTANILLA Ot Z95.2 PRESENCE OF PROSTHETIC HEART VALVE 06/09/2019 MANUEL BASS MD, Ot Z51. 81 ENCOUNTER FOR THERAPEUTIC DRUG LEVEL MON 06/09/2019 MANUEL BASS MD, Ot Z79. 01 GAS PUMPER (CURRENT) USE OF ANTICOAGULANT 06/09/2019 MANUEL BASS MD, Ot Z95. 2 PRESENCE OF PROSTHETIC HEART VALVE 06/09/2019 MARINA ALMANZA APRN Ot M25.532 PAIN IN LEFT WRIST 06/09/2019 MARINA ALMANZA APRN Ot M79.642 PAIN IN LEFT HAND 06/09/2019 MARINA ALMANZA APRN Ot W19.XXXA UNSPECIFIED FALL, INITIAL ENCOUNTER 06/15/2019 MANUEL BASS MD Ot V58. 61 ANTICOAGULANTS,LT,CURRENT USE 06/15/2019 MANUEL BASS MD Ot V58. 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 06/15/2019 MIKY CAVAZOS MEDICARE INTERVIEWER Ot 443.9 PERIPH VASCULAR DIS NOS 06/15/2019 MIKY CAVAZOS MEDICARE INTERVIEWER Ot 729.5 PAIN IN LIMB 06/15/2019 ANGELA FERRARI, OTTO Mcdonough Ot L03.032 CELLULITIS OF LEFT TOE 06/15/2019 MARINA ALMANZA APRN Ot E78.5 HYPERLIPIDEMIA, UNSPECIFIED 06/15/2019 MARINA ALMANZA APRN Ot I1 0 ESSENTIAL (PRIMARY) HYPERTENSION 06/15/2019 MARINA ALMANZA APRN Ot I25.10 ATHSCL HEART DISEASE OF [place] CORONARY 06/15/2019 MARINA ALMANZA APRN Ot I65.23 OCCLUSION AND STENOSIS OF BILATERAL [place] 06/15/2019 MARINA ALMANZA APRN Ot L03.032 CELLULITIS OF LEFT TOE 06/15/2019 MANUEL BASS MD, Ot E78. 2 MIXED HYPERLIPIDEMIA 06/15/2019 MARINA ALMANZA APRN Ot L03.116 CELLULITIS OF LEFT LOWER LIMB 06/15/2019 MARINA ALMANZA APRN Ot R93.7 ABNORMAL FINDINGS ON DIAGNOSTIC IMAGING 06/15/2019 MARINA ALMANZA APRN Ot Z51.81 ENCOUNTER FOR THERAPEUTIC DRUG LEVEL MON 06/15/2019 MARINA ALMANZA APRN Ot Z79.01 GAS PUMPER (CURRENT) USE OF ANTICOAGULANT 06/15/2019 MANUEL BASS MD, Ot E78. 5 HYPERLIPIDEMIA, UNSPECIFIED 06/15/2019 MANUEL BASS MD Ot I10 ESSENTIAL (PRIMARY) HYPERTENSION 06/15/2019 MANUEL BASS MD, Ot I25. 10 ATHSCL HEART DISEASE OF [place] CORONARY 06/15/2019 MARINA ALMANZA APRN Ot Z51.81 ENCOUNTER FOR THERAPEUTIC DRUG LEVEL MON 06/15/2019 MARINA ALMANZA APRN Ot Z79.01 GAS PUMPER (CURRENT) USE OF ANTICOAGULANT 06/15/2019 LOIS GR MD Ot 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 06/15/2019 LOIS GR MD Ot I87.323 CHRONIC VENOUS HTN W INFLAMMATION OF [place] 06/15/2019 LOIS GR MD, Ot L97.523 NON-PRS CHRONIC ULCER OTH PRT LEFT FOOT 06/15/2019 OTTO MILLER MD Ot Z51.81 ENCOUNTER FOR THERAPEUTIC DRUG LEVEL MON 06/15/2019 OTTO MILLER MD Ot Z79.01 SHELTER (CURRENT) USE OF ANTICOAGULANT 06/15/2019 OTTO MILLER MD Ot Z51.81 ENCOUNTER FOR THERAPEUTIC DRUG LEVEL MON 06/15/2019 OTTO MILLER MD Ot Z79.01 GAS PUMPER (CURRENT) USE OF ANTICOAGULANT 06/15/2019 OTTO MILLER MD Ot Z95.2 PRESENCE OF PROSTHETIC HEART VALVE 06/15/2019 LOIS GR MD Ot 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 06/15/2019 LOIS GR MD, Ot L97.123 NON-PRS CHRONIC ULCER OF LEFT THIGH W NE 06/15/2019 LOIS GR MD, Ot R54 AGE-RELATED PHYSICAL DEBILITY 06/15/2019 LOIS GR MD, Ot T86.821 SKIN GRAFT (ALLOGRAFT) (AUTOGRAFT) FAILU 06/15/2019 MANUEL BASS MD, Ot Z79. 01 GAS PUMPER (CURRENT) USE OF ANTICOAGULANT 06/15/2019 MANUEL BASS MD, Ot Z95. 2 PRESENCE OF PROSTHETIC HEART VALVE 06/15/2019 MANUEL BASS MD, Ot Z51. 81 ENCOUNTER FOR THERAPEUTIC DRUG LEVEL MON 06/15/2019 MANUEL BASS MD, Ot Z79. 01 SHELTER (CURRENT) USE OF ANTICOAGULANT 06/15/2019 MANUEL BASS MD, Ot Z51. 81 ENCOUNTER FOR THERAPEUTIC DRUG LEVEL MON 06/15/2019 MANUEL BASS MD, Ot Z79. 01 GAS PUMPER (CURRENT) USE OF ANTICOAGULANT 06/15/2019 LOIS GR MD, Ot 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 06/15/2019 LOIS GR MD, Ot L97.122 NON-PRESSURE CHRONIC ULCER OF LEFT THIGH 06/15/2019 LOIS GR MD, Ot T86.821 SKIN GRAFT (ALLOGRAFT) (AUTOGRAFT) FAILU 06/15/2019 LOIS GR MD, Ot T87.81 DEHISCENCE OF AMPUTATION STUMP 06/15/2019 MANUEL BASS MD, Ot Z51. 81 ENCOUNTER FOR THERAPEUTIC DRUG LEVEL MON 06/15/2019 MANUEL BASS MD, Ot Z79. 01 SHELTER (CURRENT) USE OF ANTICOAGULANT 06/15/2019 LOIS GR MD, Ot I70 .1 ATHEROSCLEROSIS OF RENAL ARTERY 06/15/2019 LOIS GR MD, Ot I70.203 UNSP ATHSCL [place] ARTERIES OF EXTREMITI 06/15/2019 LOIS GR MD Ot I77 .1 STRICTURE OF ARTERY 06/15/2019 LOIS GR MD, Ot L97.123 NON-PRS CHRONIC ULCER OF LEFT THIGH W NE 06/15/2019 LOIS GR MD, Ot T87.81 DEHISCENCE OF AMPUTATION STUMP 06/15/2019 LOIS GR MD, Ot 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 06/15/2019 LOIS GR MD, Ot L97.123 NON-PRS CHRONIC ULCER OF LEFT THIGH W NE 06/15/2019 LOIS GR MD, Ot T87.81 DEHISCENCE OF AMPUTATION STUMP 06/15/2019 MANUEL BASS MD, Ot Z51. 81 ENCOUNTER FOR THERAPEUTIC DRUG LEVEL MON 06/15/2019 MANUEL BASS MD, Ot Z79. 01 GAS PUMPER (CURRENT) USE OF ANTICOAGULANT 06/15/2019 LAURA APARICIO MD Ot I73 .9 PERIPHERAL VASCULAR DISEASE, UNSPECIFIED 06/15/2019 MANUEL BASS MD, Ot Z51. 81 ENCOUNTER FOR THERAPEUTIC DRUG LEVEL MON 06/15/2019 MANUEL BASS MD, Ot Z79. 01 SHELTER (CURRENT) USE OF ANTICOAGULANT 06/15/2019 LOIS GR MD, Ot L97.122 NON-PRESSURE CHRONIC ULCER OF LEFT THIGH 06/15/2019 LOIS GR MD, Ot 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 06/15/2019 LOIS GR MD, Ot L97.123 NON-PRS CHRONIC ULCER OF LEFT THIGH W NE 06/15/2019 LOIS GR MD, Ot T87.81 DEHISCENCE OF AMPUTATION STUMP 06/15/2019 LOIS GR MD, Ot 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 [facility] 06/15/2019 LOIS GR MD, Ot L97.122 NON-PRESSURE CHRONIC ULCER OF LEFT THIGH 06/15/2019 LOIS GR MD, Ot T87.81 DEHISCENCE OF AMPUTATION STUMP 06/15/2019 ANSON QUINTANILLA Ot E78.2 MIXED HYPERLIPIDEMIA 06/15/2019 ANSON QUINTANILLA Ot I25.10 ATHSCL HEART DISEASE OF [place] CORONARY 06/15/2019 ANSON QUINTANILLA Ot I65.23 OCCLUSION AND STENOSIS OF BILATERAL [place] 06/15/2019 ANSON QUINTANILLA Ot I73.9 PERIPHERAL VASCULAR DISEASE, UNSPECIFIED 06/15/2019 OTTO MILLER MD, Ot L97.122 NON-PRESSURE CHRONIC ULCER OF LEFT THIGH 06/15/2019 OTTO MILLER MD Ot M62.838 OTHER MUSCLE SPASM 06/15/2019 LOIS GR MD, Ot 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 06/15/2019 LOIS GR MD, Ot L97.121 NON-PRS CHRONIC ULCER OF LEFT THIGH [place] 06/15/2019 LOIS GR MD, Ot L97.122 NON-PRESSURE CHRONIC ULCER OF LEFT THIGH 06/15/2019 LOIS GR MD, Ot T87.81 DEHISCENCE OF AMPUTATION STUMP 06/15/2019 LIOS GR MD Ot I50.21 ACUTE SYSTOLIC (CONGESTIVE) HEART FAILUR 06/15/2019 LOIS GR MD, Ot 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 [facility] 06/15/2019 LOIS GR MD, Ot L97.121 NON-PRS CHRONIC ULCER OF LEFT THIGH [place] 06/15/2019 LOIS GR MD, Ot L97.122 NON-PRESSURE CHRONIC ULCER OF LEFT THIGH 06/15/2019 LOIS GR MD, Ot N18 .4 CHRONIC KIDNEY DISEASE, STAGE 4 (SEVERE) 06/15/2019 LOIS GR MD, Ot T87.81 DEHISCENCE OF AMPUTATION STUMP 06/15/2019 LOIS GR MD, Ot 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 [facility] 06/15/2019 LOIS GR MD, Ot L97.121 NON-PRS CHRONIC ULCER OF LEFT THIGH [place] 06/15/2019 LOIS GR MD, Ot L97.122 NON-PRESSURE CHRONIC ULCER OF LEFT THIGH 06/15/2019 LOIS GR MD, Ot T87.81 DEHISCENCE OF AMPUTATION STUMP 06/15/2019 MEL WOOD MEDICARE INTERVIEWER Ot 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 [facility] 06/15/2019 MEL WOOD APRN Ot L97.121 NON-PRS CHRONIC ULCER OF LEFT THIGH [place] 06/15/2019 MEL WOOD APRN Ot L97.122 NON-PRESSURE CHRONIC ULCER OF LEFT THIGH 06/15/2019 MEL WOOD APRN Ot T87.81 DEHISCENCE OF AMPUTATION STUMP 06/15/2019 LOIS GR MD, Ot 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 [facility] 06/15/2019 LOIS GR MD, Ot L97.121 NON-PRS CHRONIC ULCER OF LEFT THIGH LIM[place] 06/15/2019 LOIS GR MD, Ot L97.122 NON-PRESSURE CHRONIC ULCER OF LEFT THIGH 06/15/2019 LOIS GR MD, Ot T87.81 DEHISCENCE OF AMPUTATION STUMP 06/15/2019 LOIS GR MD, Ot L97.122 NON-PRESSURE CHRONIC ULCER OF LEFT THIGH 06/15/2019 OTTO MILLER MD Ot I11.0 HYPERTENSIVE HEART DISEASE WITH HEART FA 06/15/2019 OTTO MILLER MD Ot I50.9 HEART FAILURE, UNSPECIFIED 06/15/2019 LOIS GR MD, Ot 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 81 DEHISCENCE OF AMPUTATION STUMP 06/15/2019 MANUEL BASS MD, Ot Z79. 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 81 ENCOUNTER FOR THERAPEUTIC DRUG LEVEL MON 06/15/2019 MANUEL BASS MD, Ot Z79. 01 SHELTER (CURRENT) USE OF ANTICOAGULANT 06/15/2019 MANUEL BASS MD, Ot Z95. 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 81 ENCOUNTER FOR THERAPEUTIC DRUG LEVEL MON 06/15/2019 MANUEL BASS MD, Ot Z79. 01 GAS PUMPER (CURRENT) USE OF ANTICOAGULANT 06/15/2019 MANUEL BASS MD Ot Z95. 2 PRESENCE OF PROSTHETIC HEART VALVE 06/15/2019 AMOSANSON [place] Ot E78.2 MIXED HYPERLIPIDEMIA 06/15/2019 ANSON QUINTANILLA Ot I08.3 COMB RHEUMATIC DISORD OF [place], AORTIC 06/15/2019 ANSON QUINTANILLA Ot I10 ESSENTIAL (PRIMARY) HYPERTENSION 06/15/2019 ANSON QUINTANILLA Ot I25.10 ATHSCL HEART DISEASE OF [place] CORONARY 06/15/2019 TRINIDAD-ANSON [place] Ot I65.29 OCCLUSION AND STENOSIS OF UNSPECIFIED CA 06/15/2019 ANSON QUINTANILLA Ot Z95.2 PRESENCE OF PROSTHETIC HEART VALVE 06/15/2019 MANUEL BASS MD, Ot Z51. 81 ENCOUNTER FOR THERAPEUTIC DRUG LEVEL MON 06/15/2019 MANUEL BASS MD Ot Z79. 01 SHELTER (CURRENT) USE OF ANTICOAGULANT 06/15/2019 MANUEL BASS MD Ot Z95. 2 PRESENCE OF PROSTHETIC HEART VALVE 06/15/2019 MARINA ALMANZA APRN Ot M25.532 PAIN IN LEFT WRIST 06/15/2019 MARINA ALMANZA APRN Ot M79.642 PAIN IN LEFT HAND 06/15/2019 MARINA ALMANZA APRN Ot W19.XXXA UNSPECIFIED FALL, INITIAL ENCOUNTER 06/15/2019 MANUEL BASS MD Ot V58. 61 ANTICOAGULANTS,LT,CURRENT USE 06/15/2019 MANUEL BASS MD Ot V58. 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 06/15/2019 MIKY CAVAZOS MEDICARE INTERVIEWER Ot 443.9 PERIPH VASCULAR DIS NOS 06/15/2019 MIKY CAVAZOS MEDICARE INTERVIEWER Ot 729.5 PAIN IN LIMB 06/15/2019 OTTO MILLER MD Ot L03.032 CELLULITIS OF LEFT TOE 06/15/2019 MARINA ALMANZA APRN Ot E78.5 HYPERLIPIDEMIA, UNSPECIFIED 06/15/2019 MARINA ALMANZA APRN Ot I1 0 ESSENTIAL (PRIMARY) HYPERTENSION 06/15/2019 MARINA ALMANZA APRN Ot I25.10 ATHSCL HEART DISEASE OF [place] CORONARY 06/15/2019 MARINA ALMANZA APRN Ot I65.23 OCCLUSION AND STENOSIS OF BILATERAL HERNANDEZ 06/15/2019 MARNIA ALMANZA APRN Ot L03.032 CELLULITIS OF LEFT TOE 06/15/2019 MANUEL BASS MD Ot E78. 2 MIXED HYPERLIPIDEMIA 06/15/2019 MARINA ALMANZA APRN Ot L03.116 CELLULITIS OF LEFT LOWER LIMB 06/15/2019 MARINA ALMANZA APRN Ot R93.7 ABNORMAL FINDINGS ON DIAGNOSTIC IMAGING 06/15/2019 MARINA ALMANZA APRN Ot Z51.81 ENCOUNTER FOR THERAPEUTIC DRUG LEVEL MON 06/15/2019 MARINA ALMANZA APRN Ot Z79.01 SHELTER (CURRENT) USE OF ANTICOAGULANT 06/15/2019 MANUEL BASS MD Ot E78. 5 HYPERLIPIDEMIA, UNSPECIFIED 06/15/2019 MNAUEL BASS MD Ot I10 ESSENTIAL (PRIMARY) HYPERTENSION 06/15/2019 MANUEL BASS MD Ot I25. 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 06/15/2019 LOIS GR MD, Ot I87.323 CHRONIC VENOUS HTN W INFLAMMATION OF JUL[place] 06/15/2019 LOIS GR MD, Ot L97.523 NON-PRS CHRONIC ULCER OTH PRT LEFT FOOT 06/15/2019 OTTO MILLER MD, Ot Z51.81 ENCOUNTER FOR THERAPEUTIC DRUG LEVEL MON 06/15/2019 OTTO MILLER MD, Ot Z79.01 GAS PUMPER (CURRENT) USE OF ANTICOAGULANT 06/15/2019 OTTO MILLER MD, Ot Z51.81 ENCOUNTER FOR THERAPEUTIC DRUG LEVEL MON 06/15/2019 OTTO MILLER MD, Ot Z79.01 SHELTER (CURRENT) USE OF ANTICOAGULANT 06/15/2019 OTTO MILLER MD, Ot Z95.2 PRESENCE OF PROSTHETIC HEART VALVE 06/15/2019 LOIS GR MD, Ot 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 06/15/2019 LOIS GR MD, Ot L97.123 NON-PRS CHRONIC ULCER OF LEFT THIGH W NE 06/15/2019 LOIS GR MD, Ot R54 AGE-RELATED PHYSICAL DEBILITY 06/15/2019 LOIS GR MD, Ot T86.821 SKIN GRAFT (ALLOGRAFT) (AUTOGRAFT) FAILU 06/15/2019 MANUEL BASS MD, Ot Z79. 01 SHELTER (CURRENT) USE OF ANTICOAGULANT 06/15/2019 MANUEL BASS MD, Ot Z95. 2 PRESENCE OF PROSTHETIC HEART VALVE 06/15/2019 MANUEL BASS MD, Ot Z51. 81 ENCOUNTER FOR THERAPEUTIC DRUG LEVEL MON 06/15/2019 MANUEL BASS MD, Ot Z79. 01 GAS PUMPER (CURRENT) USE OF ANTICOAGULANT 06/15/2019 MANUEL BASS MD Ot Z51. 81 ENCOUNTER FOR THERAPEUTIC DRUG LEVEL MON 06/15/2019 MANUEL BASS MD, Ot Z79. 01 GAS PUMPER (CURRENT) USE OF ANTICOAGULANT 06/15/2019 LOIS GR MD, Ot 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 06/15/2019 LOIS GR MD, Ot L97.122 NON-PRESSURE CHRONIC ULCER OF LEFT THIGH 06/15/2019 LOIS GR MD, Ot T86.821 SKIN GRAFT (ALLOGRAFT) (AUTOGRAFT) FAILU 06/15/2019 LOIS GR MD, Ot T87.81 DEHISCENCE OF AMPUTATION STUMP 06/15/2019 MANUEL BASS MD Ot Z51. 81 ENCOUNTER FOR THERAPEUTIC DRUG LEVEL MON 06/15/2019 MANUEL BASS MD, Ot Z79. 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 81 ENCOUNTER FOR THERAPEUTIC DRUG LEVEL MON 06/15/2019 MANUEL BASS MD Ot Z79. 01 SHELTER (CURRENT) USE OF ANTICOAGULANT 06/15/2019 LAURA APARICIO MD Ot I73 .9 PERIPHERAL VASCULAR DISEASE, UNSPECIFIED 06/15/2019 MANUEL BASS MD, Ot Z51. 81 ENCOUNTER FOR THERAPEUTIC DRUG LEVEL MON 06/15/2019 MANUEL BASS MD Ot Z79. 01 SHELTER (CURRENT) USE OF ANTICOAGULANT 06/15/2019 LOIS GR MD, Ot L97.122 NON-PRESSURE CHRONIC ULCER OF LEFT THIGH 06/15/2019 LOIS GR MD Ot 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 06/15/2019 LOIS GR MD, Ot L97.123 NON-PRS CHRONIC ULCER OF LEFT THIGH W NE 06/15/2019 LOIS GR MD, Ot T87.81 DEHISCENCE OF AMPUTATION STUMP 06/15/2019 LOIS GR MD Ot 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 06/15/2019 LOIS GR MD, Ot L97.122 NON-PRESSURE CHRONIC ULCER OF LEFT THIGH 06/15/2019 LOIS GR MD, Ot T87.81 DEHISCENCE OF AMPUTATION STUMP 06/15/2019 ANSON QUINTANILLA Ot E78.2 MIXED HYPERLIPIDEMIA 06/15/2019 ANSON QUINTANILLA Ot I25.10 ATHSCL HEART DISEASE OF [place] CORONARY 06/15/2019 ANSON QUINTANILLA Ot I65.23 OCCLUSION AND STENOSIS OF BILATERAL HER[place]DE[place] 06/15/2019 ANSON QUINTANILLA Ot I73.9 PERIPHERAL VASCULAR DISEASE, UNSPECIFIED 06/15/2019 OTTO MILLER MD, Ot L97.122 NON-PRESSURE CHRONIC ULCER OF LEFT THIGH 06/15/2019 OTTO MILLER MD, Ot M62.838 OTHER MUSCLE SPASM 06/15/2019 LOIS GR MD, Ot I70.241 ATHSCL [place] ARTERIES OF LEFT LEG W [facility] 06/15/2019 OLIS GR MD, Ot L97.121 NON-PRS CHRONIC ULCER OF LEFT THIGH LIMI 06/15/2019 LOIS GR MD, Ot L97.122 NON-PRESSURE CHRONIC ULCER OF LEFT THIGH 06/15/2019 LOIS GR MD, Ot T87.81 DEHISCENCE OF AMPUTATION STUMP 06/15/2019 LOIS GR MD Ot I50.21 ACUTE SYSTOLIC (CONGESTIVE) HEART FAILUR 06/15/2019 LOIS GR MD Ot I70.241 ATHSCL [place] ARTERIES OF LEFT LEG W [facility] 06/15/2019 LOIS GR MD, Ot L97.121 NON-PRS CHRONIC ULCER OF LEFT THIGH LIMI 06/15/2019 LOIS GR MD, Ot L97.122 NON-PRESSURE CHRONIC ULCER OF LEFT THIGH 06/15/2019 LOIS GR MD Ot N18 .4 CHRONIC KIDNEY DISEASE, STAGE 4 (SEVERE) 06/15/2019 LOIS GR MD, Ot T87.81 DEHISCENCE OF AMPUTATION STUMP 06/15/2019 LOIS GR MD Ot 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 06/15/2019 LOIS GR MD, Ot L97.121 NON-PRS CHRONIC ULCER OF LEFT THIGH LIMI 06/15/2019 MAILE MD, LOIS G Ot L97.122 NON-PRESSURE CHRONIC ULCER OF LEFT THIGH 06/15/2019 LOIS GR MD, Ot T87.81 DEHISCENCE OF AMPUTATION STUMP 06/15/2019 MEL WOOD APRN Ot I70.241 ATHSCL [place] ARTERIES OF LEFT LEG W [facility] 06/15/2019 MEL WOOD APRN Ot L97.121 NON-PRS CHRONIC ULCER OF LEFT THIGH LIMI 06/15/2019 MEL WOOD APRN Ot L97.122 NON-PRESSURE CHRONIC ULCER OF LEFT THIGH 06/15/2019 MEL WOOD APRN Ot T87.81 DEHISCENCE OF AMPUTATION STUMP 06/15/2019 LOIS GR MD, Ot I70.241 ATHSCL [place] ARTERIES OF LEFT LEG W [facility] 06/15/2019 LOIS GR MD, Ot L97.121 NON-PRS CHRONIC ULCER OF LEFT THIGH LIMI 06/15/2019 LOIS GR MD, Ot L97.122 NON-PRESSURE CHRONIC ULCER OF LEFT THIGH 06/15/2019 LOIS GR MD, Ot T87.81 DEHISCENCE OF AMPUTATION STUMP 06/15/2019 LOIS GR MD, Ot L97.122 NON-PRESSURE CHRONIC ULCER OF LEFT THIGH 06/15/2019 ANGELA FERRARI, OTTO Mcdonough Ot I11.0 HYPERTENSIVE HEART DISEASE WITH HEART FA 06/15/2019 OTTO MILLER MD Ot I50.9 HEART FAILURE, UNSPECIFIED 06/15/2019 LOIS GR MD, Ot I70.241 ATHSCL [place] ARTERIES OF LEFT LEG W [facility] 06/15/2019 LOIS GR MD, Ot L97.121 NON-PRS CHRONIC ULCER OF LEFT THIGH LIMI 06/15/2019 LOIS GR MD, Ot L97.122 NON-PRESSURE CHRONIC ULCER OF LEFT THIGH 06/15/2019 LOIS GR MD, Ot T87.81 DEHISCENCE OF AMPUTATION STUMP 06/15/2019 MANUEL BASS MD Ot I70.241 ATHSCL [place] ARTERIES OF LEFT LEG W [facility] 06/15/2019 MANUEL BASS MD, Ot L97.121 NON-PRS CHRONIC ULCER OF LEFT THIGH LIMI 06/15/2019 MANUEL BASS MD Ot L97.122 NON-PRESSURE CHRONIC ULCER OF LEFT THIGH 06/15/2019 MANUEL BASS MD Ot T87. 81 DEHISCENCE OF AMPUTATION STUMP 06/15/2019 MANUEL BASS MD, Ot Z79. 01 GAS PUMPER (CURRENT) USE OF ANTICOAGULANT 06/15/2019 LOIS GR MD, Ot 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 06/15/2019 LOIS GR MD, Ot L97.122 NON-PRESSURE CHRONIC ULCER OF LEFT THIGH 06/15/2019 LOIS GR MD, Ot T65.222A TOXIC EFFECT OF TOBACCO CIGARETTES, SELF 06/15/2019 MANUEL BASS MD, Ot Z51. 81 ENCOUNTER FOR THERAPEUTIC DRUG LEVEL MON 06/15/2019 MANUEL BASS MD, Ot Z79. 01 GAS PUMPER (CURRENT) USE OF ANTICOAGULANT 06/15/2019 MANUEL BASS MD, Ot Z95. 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 81 ENCOUNTER FOR THERAPEUTIC DRUG LEVEL MON 06/15/2019 MANUEL BASS MD, Ot Z79. 01 GAS PUMPER (CURRENT) USE OF ANTICOAGULANT 06/15/2019 MANUEL BASS MD, Ot Z95. 2 PRESENCE OF PROSTHETIC HEART VALVE 06/15/2019 ANSON QUINTANILLA Ot E78.2 MIXED HYPERLIPIDEMIA 06/15/2019 ANSON QUINTANILLA Ot I08.3 COMB RHEUMATIC DISORD OF [place], AORTIC 06/15/2019 ANSON QUINTANILLA Ot I10 ESSENTIAL (PRIMARY) HYPERTENSION 06/15/2019 ANSON QUINTANILLA Ot I25.10 ATHSCL HEART DISEASE OF [place] CORONARY 06/15/2019 ANSON QUINTANILLA Ot I65.29 OCCLUSION AND STENOSIS OF UNSPECIFIED CA 06/15/2019 ANSON QUINTANILLA Ot Z95.2 PRESENCE OF PROSTHETIC HEART VALVE 06/15/2019 MANUEL BASS MD, Ot Z51. 81 ENCOUNTER FOR THERAPEUTIC DRUG LEVEL MON 06/15/2019 MANUEL BASS MD, Ot Z79. 01 SHELTER (CURRENT) USE OF ANTICOAGULANT 06/15/2019 MANUEL BASS MD, Ot Z95. 2 PRESENCE OF PROSTHETIC HEART VALVE 06/15/2019 MARINA ALMANZA APRN Ot M25.532 PAIN IN LEFT WRIST 06/15/2019 MARINA ALMANZA APRN Ot M79.642 PAIN IN LEFT HAND 06/15/2019 MARINA ALMANZA APRN Ot W19.XXXA UNSPECIFIED FALL, INITIAL ENCOUNTER 06/15/2019 NAA CALDWELL APRN Ot E11.40 TYPE 2 DIABETES MELLITUS WITH DIABETIC N 06/15/2019 NAA CALDWELL APRN Ot E78.00 PURE HYPERCHOLESTEROLEMIA, UNSPECIFIED 06/15/2019 NAA CALDWELL APRN Ot F17.210 NICOTINE DEPENDENCE, CIGARETTES, UNCOMPL 06/15/2019 NAA CALDWELL APRN Ot I10 ESSENTIAL (PRIMARY) HYPERTENSION 06/15/2019 NAA CALDWELL APRN Ot I25.10 ATHSCL HEART DISEASE OF [place] CORONARY 06/15/2019 NAA CALDWELL APRN Ot I99 .8 OTHER DISORDER OF CIRCULATORY SYSTEM 06/15/2019 NAA CALDWELL APRN Ot M79.604 PAIN IN RIGHT LEG 06/15/2019 NAA CALDWELL APRN Ot Z77.22 CNTCT W AND EXPSR TO ENVIRON TOBACCO SMO 06/15/2019 NAA CALDWELL APRN Ot Z79.01 GAS PUMPER (CURRENT) USE OF ANTICOAGULANT 06/15/2019 NAA CALDWELL APRN Ot Z79.82 GAS PUMPER (CURRENT) USE OF ASPIRIN 06/15/2019 NAA CALDWELL APRN Ot Z82.49 FAMILY HX OF ISCHEM HEART DIS AND OTH DI 06/15/2019 NAA CALDWELL APRN Ot Z87.891 PERSONAL HISTORY OF NICOTINE DEPENDENCE 06/15/2019 NAA CALDWELL APRN, Ot Z88 .5 ALLERGY STATUS TO NARCOTIC AGENT STATUS 06/15/2019 NAA CALDWELL APRN, Ot 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 61 ANTICOAGULANTS,LT,CURRENT USE 06/17/2019 MANUEL BASS MD Ot V58. 83 ENCOUNTER FOR THERAPEUTIC DRUG MONITORIN 06/17/2019 Ot V58.61 ANTICOAGULANTS,LT,CURRENT USE 06/17/2019 Ot V58.83 ENC OUNTER FOR THERAPEUTIC DRUG MONITORIN 06/17/2019 Ot 401.9 HYPE RTENSION NOS 06/17/2019 Ot 414.00 COR ON ATHEROSCLER NOS TYPE VESSEL, NATIV 06/17/2019 Ot 433.10 CAR OTID ARTERY OCCLUSION W O CEREBRAL IN 06/17/2019 Ot 443.9 GAUTAM PH VASCULAR DIS NOS 06/17/2019 MIKY CAVAZOS APRN Ot 443.9 PERIPH VASCULAR DIS NOS 06/17/2019 MIKY CAVAZOS MEDICARE INTERVIEWER Ot 729.5 PAIN IN LIMB 06/17/2019 ANGELA FERRARI, OTTO Mcdonough Ot L03.032 CELLULITIS OF LEFT TOE 06/17/2019 MARINA ALMANZA APRN Ot E78.5 HYPERLIPIDEMIA, UNSPECIFIED 06/17/2019 MARINA ALMANZA APRN Ot I1 0 ESSENTIAL (PRIMARY) HYPERTENSION 06/17/2019 MARINA ALMANZA APRN Ot I25.10 ATHSCL HEART DISEASE OF [place] CORONARY 06/17/2019 MARINA ALMANZA APRN Ot I65.23 OCCLUSION AND STENOSIS OF BILATERAL [place]DE[place] 06/17/2019 MARINA ALMANZA APRN Ot L03.032 CELLULITIS OF LEFT TOE 06/17/2019 MANUEL BASS MD Ot E78. 2 MIXED HYPERLIPIDEMIA 06/17/2019 MARINA ALMANZA APRN Ot L03.116 CELLULITIS OF LEFT LOWER LIMB 06/17/2019 MARINA ALMANZA APRN Ot R93.7 ABNORMAL FINDINGS ON DIAGNOSTIC IMAGING 06/17/2019 MARINA ALMANZA APRN Ot Z51.81 ENCOUNTER FOR THERAPEUTIC DRUG LEVEL MON 06/17/2019 MARINA ALMANZA APRN Ot Z79.01 SHELTER (CURRENT) USE OF ANTICOAGULANT 06/17/2019 MANUEL BASS MD Ot E78. 5 HYPERLIPIDEMIA, UNSPECIFIED 06/17/2019 MANUEL BASS MD Ot I10 ESSENTIAL (PRIMARY) HYPERTENSION 06/17/2019 MANUEL BASS MD, Ot I25. 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 06/17/2019 LOIS GR MD, Ot I87.323 CHRONIC VENOUS HTN W INFLAMMATION OF JULIA 06/17/2019 LOIS GR MD, Ot L97.523 NON-PRS CHRONIC ULCER OTH PRT LEFT FOOT 06/17/2019 OTTO MILLER MD Ot Z51.81 ENCOUNTER FOR THERAPEUTIC DRUG LEVEL MON 06/17/2019 OTTO MILLER MD Ot Z79.01 SHELTER (CURRENT) USE OF ANTICOAGULANT 06/17/2019 OTTO MILLER MD, Ot Z51.81 ENCOUNTER FOR THERAPEUTIC DRUG LEVEL MON 06/17/2019 OTTO MILLER MD, Ot Z79.01 GAS PUMPER (CURRENT) USE OF ANTICOAGULANT 06/17/2019 OTTO MILLER MD Ot Z95.2 PRESENCE OF PROSTHETIC HEART VALVE 06/17/2019 LOIS GR MD, Ot 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 06/17/2019 LOIS GR MD, Ot L97.123 NON-PRS CHRONIC ULCER OF LEFT THIGH W NE 06/17/2019 LOIS GR MD Ot R54 AGE-RELATED PHYSICAL DEBILITY 06/17/2019 LOIS GR MD, Ot T86.821 SKIN GRAFT (ALLOGRAFT) (AUTOGRAFT) FAILU 06/17/2019 MANUEL BASS MD, Ot Z79. 01 GAS PUMPER (CURRENT) USE OF ANTICOAGULANT 06/17/2019 MANUEL BASS MD, Ot Z95. 2 PRESENCE OF PROSTHETIC HEART VALVE 06/17/2019 MANUEL BASS MD, Ot Z51. 81 ENCOUNTER FOR THERAPEUTIC DRUG LEVEL MON 06/17/2019 MANUEL BASS MD Ot Z79. 01 SHELTER (CURRENT) USE OF ANTICOAGULANT 06/17/2019 MANUEL BASS MD Ot Z51. 81 ENCOUNTER FOR THERAPEUTIC DRUG LEVEL MON 06/17/2019 MANUEL BASS MD, Ot Z79. 01 SHELTER (CURRENT) USE OF ANTICOAGULANT 06/17/2019 LOIS GR MD, Ot 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 06/17/2019 LOIS GR MD, Ot L97.122 NON-PRESSURE CHRONIC ULCER OF LEFT THIGH 06/17/2019 LOIS GR MD, Ot T86.821 SKIN GRAFT (ALLOGRAFT) (AUTOGRAFT) FAILU 06/17/2019 LOIS GR MD, Ot T87.81 DEHISCENCE OF AMPUTATION STUMP 06/17/2019 MANUEL BASS MD, Ot Z51. 81 ENCOUNTER FOR THERAPEUTIC DRUG LEVEL MON 06/17/2019 MANUEL BASS MD, Ot Z79. 01 SHELTER (CURRENT) USE OF ANTICOAGULANT 06/17/2019 LOIS GR MD, Ot I70 .1 ATHEROSCLEROSIS OF RENAL ARTERY 06/17/2019 LOIS GR MD, Ot I70.203 UNSP ATHSCL [place] ARTERIES OF EXTREMITI 06/17/2019 LOIS GR MD, Ot I77 .1 STRICTURE OF ARTERY 06/17/2019 LOIS GR MD, Ot L97.123 NON-PRS CHRONIC ULCER OF LEFT THIGH W NE 06/17/2019 LOIS GR MD, Ot T87.81 DEHISCENCE OF AMPUTATION STUMP 06/17/2019 LOIS GR MD, Ot 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 06/17/2019 LOIS GR MD, Ot L97.123 NON-PRS CHRONIC ULCER OF LEFT THIGH W NE 06/17/2019 LOIS GR MD, Ot T87.81 DEHISCENCE OF AMPUTATION STUMP 06/17/2019 MANUEL BASS MD, Ot Z51. 81 ENCOUNTER FOR THERAPEUTIC DRUG LEVEL MON 06/17/2019 MANUEL BASS MD, Ot Z79. 01 SHELTER (CURRENT) USE OF ANTICOAGULANT 06/17/2019 LAURA APARICIO MD Ot I73 .9 PERIPHERAL VASCULAR DISEASE, UNSPECIFIED 06/17/2019 MANUEL BASS MD, Ot Z51. 81 ENCOUNTER FOR THERAPEUTIC DRUG LEVEL MON 06/17/2019 MANUEL BASS MD, Ot Z79. 01 GAS PUMPER (CURRENT) USE OF ANTICOAGULANT 06/17/2019 MAILE MD, LOIS G Ot L97.122 NON-PRESSURE CHRONIC ULCER OF LEFT THIGH 06/17/2019 LOIS GR MD, Ot 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 06/17/2019 LOIS GR MD, Ot L97.123 NON-PRS CHRONIC ULCER OF LEFT THIGH W [place] 06/17/2019 LOIS GR MD, Ot T87.81 DEHISCENCE OF AMPUTATION STUMP 06/17/2019 LOIS GR MD, Ot I70.241 ATHSCL [place] ARTERIES OF LEFT LEG W [facility] 06/17/2019 LOIS GR MD, Ot L97.122 NON-PRESSURE CHRONIC ULCER OF LEFT THIGH 06/17/2019 LOIS GR MD, Ot T87.81 DEHISCENCE OF AMPUTATION STUMP 06/17/2019 ANSON QUINTANILLA Ot E78.2 MIXED HYPERLIPIDEMIA 06/17/2019 ANSON QUINTANILLA Ot I25.10 ATHSCL HEART DISEASE OF [place] CORONARY 06/17/2019 ANSON QUINTANILLA Ot I65.23 OCCLUSION AND STENOSIS OF BILATERAL HER[place]NDEZ 06/17/2019 ANSON QUINTANILLA Ot I73.9 PERIPHERAL VASCULAR DISEASE, UNSPECIFIED 06/17/2019 OTTO MILLER MD, Ot L97.122 NON-PRESSURE CHRONIC ULCER OF LEFT THIGH 06/17/2019 ANGELA FERRARI, OTTO Mcdonough Ot M62.838 OTHER MUSCLE SPASM 06/17/2019 LOIS GR MD, Ot I70.241 ATHSCL [place] ARTERIES OF LEFT LEG W [facility] 06/17/2019 LOIS GR MD, Ot L97.121 NON-PRS CHRONIC ULCER OF LEFT THIGH LIMI 06/17/2019 LOIS GR MD, Ot L97.122 NON-PRESSURE CHRONIC ULCER OF LEFT THIGH 06/17/2019 LOIS GR MD, Ot T87.81 DEHISCENCE OF AMPUTATION STUMP 06/17/2019 LOIS GR MD Ot I50.21 ACUTE SYSTOLIC (CONGESTIVE) HEART FAILUR 06/17/2019 LOIS GR MD, Ot I70.241 ATHSCL [place] ARTERIES OF LEFT LEG W [facility] 06/17/2019 LOIS GR MD, Ot L97.121 NON-PRS CHRONIC ULCER OF LEFT THIGH [place] 06/17/2019 LOIS GR MD Ot L97.122 NON-PRESSURE CHRONIC ULCER OF LEFT THIGH 06/17/2019 LOIS GR MD Ot N18 .4 CHRONIC KIDNEY DISEASE, STAGE 4 (SEVERE) 06/17/2019 LOIS GR MD, Ot T87.81 DEHISCENCE OF AMPUTATION STUMP 06/17/2019 LOIS GR MD Ot I70.241 ATHSCL [place] ARTERIES OF LEFT LEG W [facility] 06/17/2019 LOIS GR MD Ot L97.121 NON-PRS CHRONIC ULCER OF LEFT THIGH [place] 06/17/2019 LOIS GR MD Ot L97.122 NON-PRESSURE CHRONIC ULCER OF LEFT THIGH 06/17/2019 LOIS GR MD, Ot T87.81 DEHISCENCE OF AMPUTATION STUMP 06/17/2019 MEL WOOD MEDICARE INTERVIEWER Ot I70.241 ATHSCL [place] ARTERIES OF LEFT LEG W [facility] 06/17/2019 MEL WOOD MEDICARE INTERVIEWER Ot L97.121 NON-PRS CHRONIC ULCER OF LEFT THIGH [place] 06/17/2019 MEL WOOD MEDICARE INTERVIEWER Ot L97.122 NON-PRESSURE CHRONIC ULCER OF LEFT THIGH 06/17/2019 MEL WOOD MEDICARE INTERVIEWER Ot T87.81 DEHISCENCE OF AMPUTATION STUMP 06/17/2019 LOIS GR MD Ot I70.241 ATHSCL [place] ARTERIES OF LEFT LEG W [facility] 06/17/2019 LOIS GR MD Ot L97.121 NON-PRS CHRONIC ULCER OF LEFT THIGH [place] 06/17/2019 LOIS GR MD Ot L97.122 NON-PRESSURE CHRONIC ULCER OF LEFT THIGH 06/17/2019 LOIS GR MD Ot T87.81 DEHISCENCE OF AMPUTATION STUMP 06/17/2019 LOIS GR MD Ot L97.122 NON-PRESSURE CHRONIC ULCER OF LEFT THIGH 06/17/2019 OTTO MILLER MD Ot I11.0 HYPERTENSIVE HEART DISEASE WITH HEART FA 06/17/2019 OTTO MILLER MD Ot I50.9 HEART FAILURE, UNSPECIFIED 06/17/2019 LOIS GR MD Ot I70.241 ATHSCL [place] ARTERIES OF LEFT LEG W [facility] 06/17/2019 LOIS GR MD Ot L97.121 NON-PRS CHRONIC ULCER OF LEFT THIGH [place] 06/17/2019 LOIS GR MD Ot L97.122 NON-PRESSURE CHRONIC ULCER OF LEFT THIGH 06/17/2019 LOIS GR MD, Ot T87.81 DEHISCENCE OF AMPUTATION STUMP 06/17/2019 MANUEL BASS MD, Ot I70.241 ATHSCL [place] ARTERIES OF LEFT LEG W [facility] 06/17/2019 MANUEL BASS MD, Ot L97.121 NON-PRS CHRONIC ULCER OF LEFT THIGH [place] 06/17/2019 MANUEL BASS MD, Ot L97.122 NON-PRESSURE CHRONIC ULCER OF LEFT THIGH 06/17/2019 MANUEL BASS MD, Ot T87. 81 DEHISCENCE OF AMPUTATION STUMP 06/17/2019 MANUEL BASS MD, Ot Z79. 01 GAS PUMPER (CURRENT) USE OF ANTICOAGULANT 06/17/2019 LOIS GR MD, Ot I70.241 ATHSCL [place] ARTERIES OF LEFT LEG W [facility] 06/17/2019 LOIS GR MD, Ot L97.122 NON-PRESSURE CHRONIC ULCER OF LEFT THIGH 06/17/2019 LOIS GR MD, Ot T65.222A TOXIC EFFECT OF TOBACCO CIGARETTES, SELF 06/17/2019 MANUEL BASS MD, Ot Z51. 81 ENCOUNTER FOR THERAPEUTIC DRUG LEVEL MON 06/17/2019 MANUEL BASS MD, Ot Z79. 01 SHELTER (CURRENT) USE OF ANTICOAGULANT 06/17/2019 MANUEL BASS MD, Ot Z95. 2 PRESENCE OF PROSTHETIC HEART VALVE 06/17/2019 LOIS GR MD, Ot I70.241 ATHSCL [place] ARTERIES OF LEFT LEG W [facility] 06/17/2019 LOIS GR MD, Ot L97.122 NON-PRESSURE CHRONIC ULCER OF LEFT THIGH 06/17/2019 LOIS GR MD, Ot T65.222A TOXIC EFFECT OF TOBACCO CIGARETTES, SELF 06/17/2019 OTTO MILLER MD Ot S69.91XA UNSP INJURY OF RIGHT WRIST, HAND AND FIN 06/17/2019 MANUEL BASS MD, Ot Z51. 81 ENCOUNTER FOR THERAPEUTIC DRUG LEVEL MON 06/17/2019 MANUEL BASS MD, Ot Z79. 01 GAS PUMPER (CURRENT) USE OF ANTICOAGULANT 06/17/2019 MANUEL BASS MD, Ot Z95. 2 PRESENCE OF PROSTHETIC HEART VALVE 06/17/2019 ANSON QUINTANILLA Ot E78.2 MIXED HYPERLIPIDEMIA 06/17/2019 TRINIDAD-ISRAEL PA, ANSON K Ot I08.3 COMB RHEUMATIC DISORD OF MITRAL, AORTIC 06/17/2019 ANSON QUINTANILLA Ot I10 ESSENTIAL (PRIMARY) HYPERTENSION 06/17/2019 ANSON QUINTANILLA Ot I25.10 ATHSCL HEART DISEASE OF [place] CORONARY 06/17/2019 ANSON QUINTANILLA Ot I65.29 OCCLUSION AND STENOSIS OF UNSPECIFIED CA 06/17/2019 ANSON QUINTANILLA Ot Z95.2 PRESENCE OF PROSTHETIC HEART VALVE 06/17/2019 MANUEL BASS MD, Ot Z51. 81 ENCOUNTER FOR THERAPEUTIC DRUG LEVEL MON 06/17/2019 MANUEL BASS MD, Ot Z79. 01 GAS PUMPER (CURRENT) USE OF ANTICOAGULANT 06/17/2019 MANUEL BASS MD, Ot Z95. 2 PRESENCE OF PROSTHETIC HEART VALVE 06/17/2019 MARINA ALMANZA APRN Ot M25.532 PAIN IN LEFT WRIST 06/17/2019 MARINA ALMANZA APRN Ot M79.642 PAIN IN LEFT HAND 06/17/2019 MARINA ALMANZA APRN Ot W19.XXXA UNSPECIFIED FALL, INITIAL ENCOUNTER 06/17/2019 NAA CALDWELL APRN Ot E11.40 TYPE 2 DIABETES MELLITUS WITH DIABETIC N 06/17/2019 NAA CALDWELL APRN Ot E78.00 PURE HYPERCHOLESTEROLEMIA, UNSPECIFIED 06/17/2019 NAA CALDWELL APRN Ot F17.210 NICOTINE DEPENDENCE, CIGARETTES, UNCOMPL 06/17/2019 NAA CALDWELL APRN Ot I10 ESSENTIAL (PRIMARY) HYPERTENSION 06/17/2019 ANA CALDWELL APRN Ot I25.10 ATHSCL HEART DISEASE OF [place] CORONARY 06/17/2019 NAA CALDWELL APRN Ot I99 .8 OTHER DISORDER OF CIRCULATORY SYSTEM 06/17/2019 NAA CALDWELL APRN Ot M79.604 PAIN IN RIGHT LEG 06/17/2019 NAA CALDWELL APRN Ot Z77.22 CNTCT W AND EXPSR TO ENVIRON TOBACCO SMO 06/17/2019 NAA CALDWELL APRN Ot Z79.01 SHELTER (CURRENT) USE OF ANTICOAGULANT 06/17/2019 NAA CALDWELL APRN Ot Z79.82 GAS PUMPER (CURRENT) USE OF ASPIRIN 06/17/2019 CALDWELL, PETER J MEDICARE INTERVIEWER Ot Z82.49 FAMILY HX OF ISCHEM HEART DIS AND OTH DI 06/17/2019 NAA CALDWELL APRN Ot Z87.891 PERSONAL HISTORY OF NICOTINE DEPENDENCE 06/17/2019 NAA CALDWELL APRN Ot Z88 .5 ALLERGY STATUS TO NARCOTIC AGENT STATUS 06/17/2019 NAA CALDWELL APRN Ot 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 61 ANTICOAGULANTS,LT,CURRENT USE 06/29/2019 MANUEL BASS MD Ot V58. 83 ENCOUNTER FOR THERAPEUTIC DRUG MONITORIN 06/29/2019 Ot V58.61 ANTICOAGULANTS,LT,CURRENT USE 06/29/2019 Ot V58.83 ENC OUNTER FOR THERAPEUTIC DRUG MONITORIN 06/29/2019 Ot 401.9 HYPE RTENSION NOS 06/29/2019 Ot 414.00 COR ON ATHEROSCLER NOS TYPE VESSEL, NATIV 06/29/2019 Ot 433.10 CAR OTID ARTERY OCCLUSION W O CEREBRAL IN 06/29/2019 Ot 443.9 GAUTAM PH VASCULAR DIS NOS 06/29/2019 MIKY CAVAZOS APRN Ot 443.9 PERIPH VASCULAR DIS NOS 06/29/2019 MIKY CAVAZOS MEDICARE INTERVIEWER Ot 729.5 PAIN IN LIMB 06/29/2019 ANGELA FERRARI, OTTO Mcdonough Ot L03.032 CELLULITIS OF LEFT TOE 06/29/2019 MARINA ALMANZA MEDICARE INTERVIEWER Ot E78.5 HYPERLIPIDEMIA, UNSPECIFIED 06/29/2019 MARINA ALMANZA APRN Ot I1 0 ESSENTIAL (PRIMARY) HYPERTENSION 06/29/2019 MARINA ALMANZA APRN Ot I25.10 ATHSCL HEART DISEASE OF [place] CORONARY 06/29/2019 MARINA ALMANZA APRN Ot I65.23 OCCLUSION AND STENOSIS OF BILATERAL HERNANDEZ 06/29/2019 MARINA ALMANZA APRN Ot L03.032 CELLULITIS OF LEFT TOE 06/29/2019 MANUEL BASS MD Ot E78. 2 MIXED HYPERLIPIDEMIA 06/29/2019 MARINA ALMANZA APRN Ot L03.116 CELLULITIS OF LEFT LOWER LIMB 06/29/2019 MARINA ALMANZA APRN Ot R93.7 ABNORMAL FINDINGS ON DIAGNOSTIC IMAGING 06/29/2019 MARINA ALMANZA APRN Ot Z51.81 ENCOUNTER FOR THERAPEUTIC DRUG LEVEL MON 06/29/2019 MARINA ALMANZA APRN Ot Z79.01 GAS PUMPER (CURRENT) USE OF ANTICOAGULANT 06/29/2019 MANUEL BASS MD Ot E78. 5 HYPERLIPIDEMIA, UNSPECIFIED 06/29/2019 MANUEL BASS MD Ot I10 ESSENTIAL (PRIMARY) HYPERTENSION 06/29/2019 MANUEL BASS MD Ot I25. 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 06/29/2019 LOIS GR MD, Ot I87.323 CHRONIC VENOUS HTN W INFLAMMATION OF [place] 06/29/2019 LOIS GR MD, Ot L97.523 NON-PRS CHRONIC ULCER OTH PRT LEFT FOOT 06/29/2019 OTTO MILLER MD Ot Z51.81 ENCOUNTER FOR THERAPEUTIC DRUG LEVEL MON 06/29/2019 OTTO MILLER MD Ot Z79.01 SHELTER (CURRENT) USE OF ANTICOAGULANT 06/29/2019 OTTO MILLER MD Ot Z51.81 ENCOUNTER FOR THERAPEUTIC DRUG LEVEL MON 06/29/2019 OTTO MILLER MD Ot Z79.01 SHELTER (CURRENT) USE OF ANTICOAGULANT 06/29/2019 OTTO MILLER MD Ot Z95.2 PRESENCE OF PROSTHETIC HEART VALVE 06/29/2019 LOIS GR MD, Ot 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 06/29/2019 LOIS GR MD, Ot L97.123 NON-PRS CHRONIC ULCER OF LEFT THIGH W NE 06/29/2019 LOIS GR MD Ot R54 AGE-RELATED PHYSICAL DEBILITY 06/29/2019 LOIS GR MD, Ot T86.821 SKIN GRAFT (ALLOGRAFT) (AUTOGRAFT) FAILU 06/29/2019 MANUEL BASS MD, Ot Z79. 01 GAS PUMPER (CURRENT) USE OF ANTICOAGULANT 06/29/2019 MANUEL BASS MD, Ot Z95. 2 PRESENCE OF PROSTHETIC HEART VALVE 06/29/2019 MANUEL BASS MD, Ot Z51. 81 ENCOUNTER FOR THERAPEUTIC DRUG LEVEL MON 06/29/2019 MANUEL BASS MD, Ot Z79. 01 GAS PUMPER (CURRENT) USE OF ANTICOAGULANT 06/29/2019 MANUEL BASS MD, Ot Z51. 81 ENCOUNTER FOR THERAPEUTIC DRUG LEVEL MON 06/29/2019 MANUEL BASS MD, Ot Z79. 01 GAS PUMPER (CURRENT) USE OF ANTICOAGULANT 06/29/2019 LOIS GR MD, Ot I70.241 [place]TH[place] ARTERIES OF LEFT LEG W [facility] 06/29/2019 LOIS GR MD, Ot L97.122 NON-PRESSURE CHRONIC ULCER OF LEFT THIGH 06/29/2019 LOIS GR MD, Ot T86.821 SKIN GRAFT (ALLOGRAFT) (AUTOGRAFT) FAILU 06/29/2019 LOIS GR MD, Ot T87.81 DEHISCENCE OF AMPUTATION STUMP 06/29/2019 MANUEL BASS MD, Ot Z51. 81 ENCOUNTER FOR THERAPEUTIC DRUG LEVEL MON 06/29/2019 MANUEL BASS MD, Ot Z79. 01 SHELTER (CURRENT) USE OF ANTICOAGULANT 06/29/2019 LOIS GR MD, Ot I70 .1 ATHEROSCLEROSIS OF RENAL ARTERY 06/29/2019 LOIS GR MD, Ot I70.203 UNSP ATHSCL [place] ARTERIES OF EXTREMITI 06/29/2019 LOIS GR MD Ot I77 .1 STRICTURE OF ARTERY 06/29/2019 LOIS GR MD, Ot L97.123 NON-PRS CHRONIC ULCER OF LEFT THIGH W NE 06/29/2019 LOIS GR MD, Ot T87.81 DEHISCENCE OF AMPUTATION STUMP 06/29/2019 LOIS GR MD, Ot 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 06/29/2019 LOIS GR MD, Ot L97.123 NON-PRS CHRONIC ULCER OF LEFT THIGH W NE 06/29/2019 LOIS GR MD, Ot T87.81 DEHISCENCE OF AMPUTATION STUMP 06/29/2019 MANUEL BASS MD, Ot Z51. 81 ENCOUNTER FOR THERAPEUTIC DRUG LEVEL MON 06/29/2019 MANUEL BASS MD, Ot Z79. 01 GAS PUMPER (CURRENT) USE OF ANTICOAGULANT 06/29/2019 LAURA APARICIO MD Ot I73 .9 PERIPHERAL VASCULAR DISEASE, UNSPECIFIED 06/29/2019 MANUEL BASS MD, Ot Z51. 81 ENCOUNTER FOR THERAPEUTIC DRUG LEVEL MON 06/29/2019 MANUEL BASS MD, Ot Z79. 01 GAS PUMPER (CURRENT) USE OF ANTICOAGULANT 06/29/2019 LOIS GR MD, Ot L97.122 NON-PRESSURE CHRONIC ULCER OF LEFT THIGH 06/29/2019 LOIS GR MD, Ot 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 06/29/2019 LOIS GR MD, Ot L97.123 NON-PRS CHRONIC ULCER OF LEFT THIGH W NE 06/29/2019 LOIS GR MD, Ot T87.81 DEHISCENCE OF AMPUTATION STUMP 06/29/2019 LOIS GR MD, Ot 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 06/29/2019 LOIS GR MD, Ot L97.122 NON-PRESSURE CHRONIC ULCER OF LEFT THIGH 06/29/2019 LOIS GR MD, Ot T87.81 DEHISCENCE OF AMPUTATION STUMP 06/29/2019 ANSON QUINTANILLA Ot E78.2 MIXED HYPERLIPIDEMIA 06/29/2019 ANSON QUINTANILLA Ot I25.10 ATHSCL HEART DISEASE OF [place] CORONARY 06/29/2019 ANSON QUINTANILLA Ot I65.23 OCCLUSION AND STENOSIS OF BILATERAL [place] 06/29/2019 ANSON QUINTANILLA Ot I73.9 PERIPHERAL VASCULAR DISEASE, UNSPECIFIED 06/29/2019 TOTO MILLER MD Ot L97.122 NON-PRESSURE CHRONIC ULCER OF LEFT THIGH 06/29/2019 OTTO MILLER MD Ot M62.838 OTHER MUSCLE SPASM 06/29/2019 LOIS GR MD Ot 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 06/29/2019 LOIS GR MD Ot L97.121 NON-PRS CHRONIC ULCER OF LEFT THIGH LIMI 06/29/2019 LOIS GR MD Ot L97.122 NON-PRESSURE CHRONIC ULCER OF LEFT THIGH 06/29/2019 LOIS GR MD, Ot T87.81 DEHISCENCE OF AMPUTATION STUMP 06/29/2019 LOIS GR MD, Ot I50.21 ACUTE SYSTOLIC (CONGESTIVE) HEART FAILUR 06/29/2019 LOIS GR MD Ot I70.241 [place]TH[place]CL [place] ARTERIES OF LEFT LEG W [facility] 06/29/2019 LOIS GR MD, Ot L97.121 NON-PRS CHRONIC ULCER OF LEFT THIGH LIMI 06/29/2019 LOIS GR MD, Ot L97.122 NON-PRESSURE CHRONIC ULCER OF LEFT THIGH 06/29/2019 LOIS GR MD, Ot N18 .4 CHRONIC KIDNEY DISEASE, STAGE 4 (SEVERE) 06/29/2019 LOIS GR MD, Ot T87.81 DEHISCENCE OF AMPUTATION STUMP 06/29/2019 LOIS GR MD, Ot I70.241 ATHSCL [place] ARTERIES OF LEFT LEG W [facility] 06/29/2019 LOIS GR MD, Ot L97.121 NON-PRS CHRONIC ULCER OF LEFT THIGH LIMI 06/29/2019 LOIS GR MD Ot L97.122 NON-PRESSURE CHRONIC ULCER OF LEFT THIGH 06/29/2019 LOIS GR MD, Ot T87.81 DEHISCENCE OF AMPUTATION STUMP 06/29/2019 MEL WOOD MEDICARE INTERVIEWER Ot I70.241 ATHSCL [place] ARTERIES OF LEFT LEG W [facility] 06/29/2019 MEL WOOD MEDICARE INTERVIEWER Ot L97.121 NON-PRS CHRONIC ULCER OF LEFT THIGH LIM[place] 06/29/2019 MEL WOOD APRN Ot L97.122 NON-PRESSURE CHRONIC ULCER OF LEFT THIGH 06/29/2019 MEL WOOD APRN Ot T87.81 DEHISCENCE OF AMPUTATION STUMP 06/29/2019 LOIS GR MD Ot I70.241 ATH[place]CL [place] ARTERIES OF LEFT LEG W [facility] 06/29/2019 LOIS GR MD, Ot L97.121 NON-PRS CHRONIC ULCER OF LEFT THIGH LIMI 06/29/2019 LOIS GR MD Ot L97.122 NON-PRESSURE CHRONIC ULCER OF LEFT THIGH 06/29/2019 LOIS GR MD, Ot T87.81 DEHISCENCE OF AMPUTATION STUMP 06/29/2019 LOIS GR MD Ot L97.122 NON-PRESSURE CHRONIC ULCER OF LEFT THIGH 06/29/2019 OTTO MILLER MD Ot I11.0 HYPERTENSIVE HEART DISEASE WITH HEART FA 06/29/2019 OTTO MILLER MD Ot I50.9 HEART FAILURE, UNSPECIFIED 06/29/2019 LOIS GR MD, Ot I70.241 ATHSCL [place] ARTERIES OF LEFT LEG W [facility] 06/29/2019 LOIS GR MD, Ot L97.121 NON-PRS CHRONIC ULCER OF LEFT THIGH LIMI 06/29/2019 LOIS GR MD, Ot L97.122 NON-PRESSURE CHRONIC ULCER OF LEFT THIGH 06/29/2019 LOIS GR MD, Ot T87.81 DEHISCENCE OF AMPUTATION STUMP 06/29/2019 MANUEL BASS MD, Ot I70.241 ATHSCL [place] ARTERIES OF LEFT LEG W [facility] 06/29/2019 MANUEL BASS MD, Ot L97.121 NON-PRS CHRONIC ULCER OF LEFT THIGH LIMI 06/29/2019 MANUEL BASS MD, Ot L97.122 NON-PRESSURE CHRONIC ULCER OF LEFT THIGH 06/29/2019 MANUEL BASS MD, Ot T87. 81 DEHISCENCE OF AMPUTATION STUMP 06/29/2019 MANUEL BASS MD, Ot Z79. 01 GAS PUMPER (CURRENT) USE OF ANTICOAGULANT 06/29/2019 LOIS GR MD, Ot I70.241 ATHSCL [place] ARTERIES OF LEFT LEG W [facility] 06/29/2019 LOIS GR MD, Ot L97.122 NON-PRESSURE CHRONIC ULCER OF LEFT THIGH 06/29/2019 LOIS GR MD, Ot T65.222A TOXIC EFFECT OF TOBACCO CIGARETTES, SELF 06/29/2019 MANUEL BASS MD, Ot Z51. 81 ENCOUNTER FOR THERAPEUTIC DRUG LEVEL [facility] 06/29/2019 MANUEL BASS MD, Ot Z79. 01 SHELTER (CURRENT) USE OF ANTICOAGULANT 06/29/2019 MANUEL BASS MD, Ot Z95. 2 PRESENCE OF PROSTHETIC HEART VALVE 06/29/2019 LOIS GR MD, Ot I70.241 [place]TH[place]CL [place] ARTERIES OF LEFT LEG W [facility] 06/29/2019 LOIS GR MD, Ot L97.122 NON-PRESSURE CHRONIC ULCER OF LEFT THIGH 06/29/2019 LOIS GR MD, Ot T65.222A TOXIC EFFECT OF TOBACCO CIGARETTES, SELF 06/29/2019 OTTO MILLER MD Ot S69.91XA UNSP INJURY OF RIGHT WRIST, HAND AND FIN 06/29/2019 MANUEL BASS MD Ot Z51. 81 ENCOUNTER FOR THERAPEUTIC DRUG LEVEL MON 06/29/2019 MANUEL BASS MD Ot Z79. 01 GAS PUMPER (CURRENT) USE OF ANTICOAGULANT 06/29/2019 MANUEL BASS MD Ot Z95. 2 PRESENCE OF PROSTHETIC HEART VALVE 06/29/2019 ANSON QUINTANILLA Ot E78.2 MIXED HYPERLIPIDEMIA 06/29/2019 ANSON QUINTANILLA Ot I08.3 COMB RHEUMATIC DISORD OF [place], AORTIC 06/29/2019 ANSON QUINTANILLA Ot I10 ESSENTIAL (PRIMARY) HYPERTENSION 06/29/2019 ANSON QUINTANILLA Ot I25.10 ATHSCL HEART DISEASE OF [place] CORONARY 06/29/2019 ANSON QUINTANILLA Ot I65.29 OCCLUSION AND STENOSIS OF UNSPECIFIED CA 06/29/2019 ANSON QUINTANILLA Ot Z95.2 PRESENCE OF PROSTHETIC HEART VALVE 06/29/2019 MANUEL BASS MD Ot Z51. 81 ENCOUNTER FOR THERAPEUTIC DRUG LEVEL MON 06/29/2019 MANUEL BASS MD Ot Z79. 01 SHELTER (CURRENT) USE OF ANTICOAGULANT 06/29/2019 MANUEL BASS MD Ot Z95. 2 PRESENCE OF PROSTHETIC HEART VALVE 06/29/2019 MARINA ALMANZA MEDICARE INTERVIEWER Ot M25.532 PAIN IN LEFT WRIST 06/29/2019 MARINA ALMANZA MEDICARE INTERVIEWER Ot M79.642 PAIN IN LEFT HAND 06/29/2019 MARINA ALMANZA MEDICARE INTERVIEWER Ot W19.XXXA UNSPECIFIED FALL, INITIAL ENCOUNTER 06/29/2019 MANUEL BASS MD Ot V58. 61 ANTICOAGULANTS,LT,CURRENT USE 06/29/2019 MANUEL BASS MD Ot V58. 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 2 MIXED HYPERLIPIDEMIA 06/29/2019 MARINA ALMANZA APRN Ot L03.116 CELLULITIS OF LEFT LOWER LIMB 06/29/2019 MARINA ALMANZA APRN Ot R93.7 ABNORMAL FINDINGS ON DIAGNOSTIC IMAGING 06/29/2019 MARINA ALMANZA APRN Ot Z51.81 ENCOUNTER FOR THERAPEUTIC DRUG LEVEL MON 06/29/2019 MARINA ALMANZA APRN Ot Z79.01 SHELTER (CURRENT) USE OF ANTICOAGULANT 06/29/2019 MANUEL BASS MD Ot E78. 5 HYPERLIPIDEMIA, UNSPECIFIED 06/29/2019 MANUEL BASS MD Ot I10 ESSENTIAL (PRIMARY) HYPERTENSION 06/29/2019 MANUEL BASS MD Ot I25. 10 ATHSCL HEART DISEASE OF [place] CORONARY 06/29/2019 MARINA ALMANZA APRN Ot Z51.81 ENCOUNTER FOR THERAPEUTIC DRUG LEVEL MON 06/29/2019 MARINA ALMANZA APRN Ot Z79.01 GAS PUMPER (CURRENT) USE OF ANTICOAGULANT 06/29/2019 LOIS GR MD Ot 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 06/29/2019 LOIS GR MD Ot I87.323 CHRONIC VENOUS HTN W INFLAMMATION OF [place] 06/29/2019 LOIS RG MD Ot L97.523 NON-PRS CHRONIC ULCER OTH PRT LEFT FOOT 06/29/2019 OTTO MILLER MD Ot Z51.81 ENCOUNTER FOR THERAPEUTIC DRUG LEVEL MON 06/29/2019 OTTO MILLER MD, Ot Z79.01 SHELTER (CURRENT) USE OF ANTICOAGULANT 06/29/2019 OTTO MILLER MD Ot Z51.81 ENCOUNTER FOR THERAPEUTIC DRUG LEVEL MON 06/29/2019 OTTO MILLER MD, Ot Z79.01 SHELTER (CURRENT) USE OF ANTICOAGULANT 06/29/2019 OTTO MILLER MD Ot Z95.2 PRESENCE OF PROSTHETIC HEART VALVE 06/29/2019 LOIS GR MD, Ot 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 06/29/2019 LOIS GR MD, Ot L97.123 NON-PRS CHRONIC ULCER OF LEFT THIGH W NE 06/29/2019 LOIS GR MD, Ot R54 AGE-RELATED PHYSICAL DEBILITY 06/29/2019 LOIS GR MD, Ot T86.821 SKIN GRAFT (ALLOGRAFT) (AUTOGRAFT) FAILU 06/29/2019 MANUEL BASS MD, Ot Z79. 01 GAS PUMPER (CURRENT) USE OF ANTICOAGULANT 06/29/2019 MANUEL BASS MD, Ot Z95. 2 PRESENCE OF PROSTHETIC HEART VALVE 06/29/2019 MANUEL BASS MD, Ot Z51. 81 ENCOUNTER FOR THERAPEUTIC DRUG LEVEL MON 06/29/2019 MANUEL BASS MD, Ot Z79. 01 GAS PUMPER (CURRENT) USE OF ANTICOAGULANT 06/29/2019 MANUEL BASS MD, Ot Z51. 81 ENCOUNTER FOR THERAPEUTIC DRUG LEVEL MON 06/29/2019 MANUEL BASS MD, Ot Z79. 01 GAS PUMPER (CURRENT) USE OF ANTICOAGULANT 06/29/2019 LOIS GR MD, Ot 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 06/29/2019 LOIS GR MD, Ot L97.122 NON-PRESSURE CHRONIC ULCER OF LEFT THIGH 06/29/2019 LOIS GR MD, Ot T86.821 SKIN GRAFT (ALLOGRAFT) (AUTOGRAFT) FAILU 06/29/2019 LOIS GR MD, Ot T87.81 DEHISCENCE OF AMPUTATION STUMP 06/29/2019 MANUEL BASS MD Ot Z51. 81 ENCOUNTER FOR THERAPEUTIC DRUG LEVEL MON 06/29/2019 MANUEL BASS MD, Ot Z79. 01 GAS PUMPER (CURRENT) USE OF ANTICOAGULANT 06/29/2019 LOIS GR MD Ot I70 .1 ATHEROSCLEROSIS OF RENAL ARTERY 06/29/2019 LOIS GR MD, Ot I70.203 UNSP ATHSCL [place] ARTERIES OF EXTREMITI 06/29/2019 LOIS GR MD, Ot I77 .1 STRICTURE OF ARTERY 06/29/2019 LOIS GR MD Ot L97.123 NON-PRS CHRONIC ULCER OF LEFT THIGH W NE 06/29/2019 LOIS GR MD, Ot T87.81 DEHISCENCE OF AMPUTATION STUMP 06/29/2019 LOIS GR MD, Ot I70.241 ATH[place]CL [place] ARTERIES OF LEFT LEG W C 06/29/2019 LOIS GR MD, Ot L97.123 NON-PRS CHRONIC ULCER OF LEFT THIGH W NE 06/29/2019 LOIS GR MD, Ot T87.81 DEHISCENCE OF AMPUTATION STUMP 06/29/2019 MANUEL BASS MD Ot Z51. 81 ENCOUNTER FOR THERAPEUTIC DRUG LEVEL MON 06/29/2019 MANUEL BASS MD Ot Z79. 01 SHELTER (CURRENT) USE OF ANTICOAGULANT 06/29/2019 MARKUS FERRARI, LAURA Lord Ot I73 .9 PERIPHERAL VASCULAR DISEASE, UNSPECIFIED 06/29/2019 MANUEL BASS MD Ot Z51. 81 ENCOUNTER FOR THERAPEUTIC DRUG LEVEL MON 06/29/2019 MANUEL BASS MD Ot Z79. 01 SHELTER (CURRENT) USE OF ANTICOAGULANT 06/29/2019 LOIS GR MD Ot L97.122 NON-PRESSURE CHRONIC ULCER OF LEFT THIGH 06/29/2019 LOIS GR MD Ot I70.241 [place]TH[place]CL [place] ARTERIES OF LEFT LEG W [facility] 06/29/2019 LOIS GR MD Ot L97.123 NON-PRS CHRONIC ULCER OF LEFT THIGH W NE 06/29/2019 LOIS GR MD, Ot T87.81 DEHISCENCE OF AMPUTATION STUMP 06/29/2019 LOIS GR MD Ot I70.241 ATHSCL [place] ARTERIES OF LEFT LEG W [facility] 06/29/2019 LOIS GR MD Ot L97.122 NON-PRESSURE CHRONIC ULCER OF LEFT THIGH 06/29/2019 LOIS GR MD Ot T87.81 DEHISCENCE OF AMPUTATION STUMP 06/29/2019 ANSON QUINTANILLA Ot E78.2 MIXED HYPERLIPIDEMIA 06/29/2019 ANSON QUINTANILLA Ot I25.10 ATHSCL HEART DISEASE OF [place] CORONARY 06/29/2019 ANSON QUINTANILLA Ot I65.23 OCCLUSION AND STENOSIS OF BILATERAL [place] 06/29/2019 ANSON QUINTANILLA Ot I73.9 PERIPHERAL VASCULAR DISEASE, UNSPECIFIED 06/29/2019 OTTO MILLER MD, Ot L97.122 NON-PRESSURE CHRONIC ULCER OF LEFT THIGH 06/29/2019 OTTO MILLER MD Ot M62.838 OTHER MUSCLE SPASM 06/29/2019 LOIS GR MD, Ot I70.241 ATHSCL [place] ARTERIES OF LEFT LEG W [facility] 06/29/2019 LOIS GR MD, Ot L97.121 NON-PRS CHRONIC ULCER OF LEFT THIGH LIMI 06/29/2019 LOIS GR MD, Ot L97.122 NON-PRESSURE CHRONIC ULCER OF LEFT THIGH 06/29/2019 LOIS GR MD, Ot T87.81 DEHISCENCE OF AMPUTATION STUMP 06/29/2019 LOIS GR MD Ot I50.21 ACUTE SYSTOLIC (CONGESTIVE) HEART FAILUR 06/29/2019 LOIS GR MD Ot I70.241 ATHSCL [place] ARTERIES OF LEFT LEG W [facility] 06/29/2019 LOIS GR MD Ot L97.121 NON-PRS CHRONIC ULCER OF LEFT THIGH LIMI 06/29/2019 LOIS GR MD Ot L97.122 NON-PRESSURE CHRONIC ULCER OF LEFT THIGH 06/29/2019 LOIS GR MD Ot N18 .4 CHRONIC KIDNEY DISEASE, STAGE 4 (SEVERE) 06/29/2019 LOIS GR MD, Ot T87.81 DEHISCENCE OF AMPUTATION STUMP 06/29/2019 LOIS GR MD Ot I70.241 ATHSCL [place] ARTERIES OF LEFT LEG W [facility] 06/29/2019 LOIS GR MD, Ot L97.121 NON-PRS CHRONIC ULCER OF LEFT THIGH LIMI 06/29/2019 LOIS GR MD Ot L97.122 NON-PRESSURE CHRONIC ULCER OF LEFT THIGH 06/29/2019 LOIS GR MD, Ot T87.81 DEHISCENCE OF AMPUTATION STUMP 06/29/2019 MEL WOOD APRN Ot I70.241 ATHSCL [place] ARTERIES OF LEFT LEG W [facility] 06/29/2019 MEL WOOD APRN Ot L97.121 NON-PRS CHRONIC ULCER OF LEFT THIGH LIMI 06/29/2019 MEL WOOD APRN Ot L97.122 NON-PRESSURE CHRONIC ULCER OF LEFT THIGH 06/29/2019 MEL WOOD APRN Ot T87.81 DEHISCENCE OF AMPUTATION STUMP 06/29/2019 LOIS GR MD, Ot I70.241 ATHSCL [place] ARTERIES OF LEFT LEG W [facility] 06/29/2019 LOIS GR MD, Ot L97.121 NON-PRS CHRONIC ULCER OF LEFT THIGH LIMI 06/29/2019 LOIS GR MD, Ot L97.122 NON-PRESSURE CHRONIC ULCER OF LEFT THIGH 06/29/2019 LOIS GR MD, Ot T87.81 DEHISCENCE OF AMPUTATION STUMP 06/29/2019 LOIS GR MD, Ot L97.122 NON-PRESSURE CHRONIC ULCER OF LEFT THIGH 06/29/2019 OTTO MILLER MD Ot I11.0 HYPERTENSIVE HEART DISEASE WITH HEART FA 06/29/2019 OTTO MILLER MD Ot I50.9 HEART FAILURE, UNSPECIFIED 06/29/2019 LOIS GR MD, Ot I70.241 ATHSCL [place] ARTERIES OF LEFT LEG W [facility] 06/29/2019 LOIS GR MD, Ot L97.121 NON-PRS CHRONIC ULCER OF LEFT THIGH LIMI 06/29/2019 LOIS RG MD, Ot L97.122 NON-PRESSURE CHRONIC ULCER OF LEFT THIGH 06/29/2019 LOIS GR MD, Ot T87.81 DEHISCENCE OF AMPUTATION STUMP 06/29/2019 MANUEL BASS MD, Ot I70.241 ATHSCL [place] ARTERIES OF LEFT LEG W [facility] 06/29/2019 MANUEL BASS MD, Ot L97.121 NON-PRS CHRONIC ULCER OF LEFT THIGH LIMI 06/29/2019 MANUEL BASS MD, Ot L97.122 NON-PRESSURE CHRONIC ULCER OF LEFT THIGH 06/29/2019 MANUEL BASS MD, Ot T87. 81 DEHISCENCE OF AMPUTATION STUMP 06/29/2019 MANUEL BASS MD, Ot Z79. 01 SHELTER (CURRENT) USE OF ANTICOAGULANT 06/29/2019 MAILE MD, LOIS G Ot 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 06/29/2019 LOIS GR MD, Ot L97.122 NON-PRESSURE CHRONIC ULCER OF LEFT THIGH 06/29/2019 LOIS GR MD, Ot T65.222A TOXIC EFFECT OF TOBACCO CIGARETTES, SELF 06/29/2019 MANUEL BASS MD, Ot Z51. 81 ENCOUNTER FOR THERAPEUTIC DRUG LEVEL MON 06/29/2019 MANUEL BASS MD, Ot Z79. 01 GAS PUMPER (CURRENT) USE OF ANTICOAGULANT 06/29/2019 MANUEL BASS MD, Ot Z95. 2 PRESENCE OF PROSTHETIC HEART VALVE 06/29/2019 LOIS GR MD, Ot 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 06/29/2019 LOIS GR MD, Ot L97.122 NON-PRESSURE CHRONIC ULCER OF LEFT THIGH 06/29/2019 LOIS GR MD, Ot T65.222A TOXIC EFFECT OF TOBACCO CIGARETTES, SELF 06/29/2019 ANGELA FERRARI, OTTO Mcdonough Ot S69.91XA UNSP INJURY OF RIGHT WRIST, HAND AND FIN 06/29/2019 MANUEL BASS MD, Ot Z51. 81 ENCOUNTER FOR THERAPEUTIC DRUG LEVEL MON 06/29/2019 MANUEL BASS MD, Ot Z79. 01 SHELTER (CURRENT) USE OF ANTICOAGULANT 06/29/2019 MANUEL BASS MD, Ot Z95. 2 PRESENCE OF PROSTHETIC HEART VALVE 06/29/2019 ANSON QUINTANILLA Ot E78.2 MIXED HYPERLIPIDEMIA 06/29/2019 ANSON QUINTANILLA Ot I08.3 COMB RHEUMATIC DISORD OF MITRAL, AORTIC 06/29/2019 ANSON QUINTANILLA Ot I10 ESSENTIAL (PRIMARY) HYPERTENSION 06/29/2019 ANSON QUINTANILLA Ot I25.10 ATHSCL HEART DISEASE OF [place] CORONARY 06/29/2019 ANSON QUINTANILLA Ot I65.29 OCCLUSION AND STENOSIS OF UNSPECIFIED CA 06/29/2019 ANSON QUINTANILLA Ot Z95.2 PRESENCE OF PROSTHETIC HEART VALVE 06/29/2019 MANUEL BASS MD, Ot Z51. 81 ENCOUNTER FOR THERAPEUTIC DRUG LEVEL MON 06/29/2019 MANUEL BASS MD, Ot Z79. 01 SHELTER (CURRENT) USE OF ANTICOAGULANT 06/29/2019 MANUEL BASS MD Ot Z95. 2 PRESENCE OF PROSTHETIC HEART VALVE 06/29/2019 MARINA ALMANZA APRN Ot M25.532 PAIN IN LEFT WRIST 06/29/2019 MARINA ALMANZA APRN Ot M79.642 PAIN IN LEFT HAND 06/29/2019 MARINA ALMANZA APRN Ot W19.XXXA UNSPECIFIED FALL, INITIAL ENCOUNTER 07/11/2019 MANUEL BASS MD Ot V58. 61 ANTICOAGULANTS,LT,CURRENT USE 07/11/2019 MANUEL BASS MD Ot V58. 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 07/11/2019 MIKY CAVAZOS MEDICARE INTERVIEWER Ot 443.9 PERIPH VASCULAR DIS NOS 07/11/2019 MIKY CAVAZOS MEDICARE INTERVIEWER Ot 729.5 PAIN IN LIMB 07/11/2019 OTTO MILLER MD Ot L03.032 CELLULITIS OF LEFT TOE 07/11/2019 MARINA ALMANZA APRN Ot E78.5 HYPERLIPIDEMIA, UNSPECIFIED 07/11/2019 MARINA ALMANZA APRN Ot I1 0 ESSENTIAL (PRIMARY) HYPERTENSION 07/11/2019 MARINA ALMANZA APRN Ot I25.10 ATHSCL HEART DISEASE OF [place] CORONARY 07/11/2019 MARINA ALMANZA APRN Ot I65.23 OCCLUSION AND STENOSIS OF BILATERAL [place] 07/11/2019 MARINA ALMANZA APRN Ot L03.032 CELLULITIS OF LEFT TOE 07/11/2019 MANUEL BASS MD Ot E78. 2 MIXED HYPERLIPIDEMIA 07/11/2019 MARINA ALMANZA APRN Ot L03.116 CELLULITIS OF LEFT LOWER LIMB 07/11/2019 MARINA ALMANZA APRN Ot R93.7 ABNORMAL FINDINGS ON DIAGNOSTIC IMAGING 07/11/2019 MARINA ALMANZA APRN Ot Z51.81 ENCOUNTER FOR THERAPEUTIC DRUG LEVEL MON 07/11/2019 MARINA ALMANZA APRN Ot Z79.01 SHELTER (CURRENT) USE OF ANTICOAGULANT 07/11/2019 MANUEL BASS MD, Ot E78. 5 HYPERLIPIDEMIA, UNSPECIFIED 07/11/2019 MANUEL BASS MD, Ot I10 ESSENTIAL (PRIMARY) HYPERTENSION 07/11/2019 MANUEL BASS MD, Ot I25. 10 ATHSCL HEART DISEASE OF [place] CORONARY 07/11/2019 MARINA ALMANZA APRN Ot Z51.81 ENCOUNTER FOR THERAPEUTIC DRUG LEVEL MON 07/11/2019 MARINA ALMANZA APRN Ot Z79.01 GAS PUMPER (CURRENT) USE OF ANTICOAGULANT 07/11/2019 LOIS GR MD, Ot 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 07/11/2019 LOIS GR MD, Ot I87.323 CHRONIC VENOUS HTN W INFLAMMATION OF JUL[place] 07/11/2019 LOIS GR MD, Ot L97.523 NON-PRS CHRONIC ULCER OTH PRT LEFT FOOT 07/11/2019 OTTO MILLER MD Ot Z51.81 ENCOUNTER FOR THERAPEUTIC DRUG LEVEL MON 07/11/2019 OTTO MILLER MD Ot Z79.01 SHELTER (CURRENT) USE OF ANTICOAGULANT 07/11/2019 OTTO MILLER MD Ot Z51.81 ENCOUNTER FOR THERAPEUTIC DRUG LEVEL MON 07/11/2019 OTTO MILLER MD Ot Z79.01 GAS PUMPER (CURRENT) USE OF ANTICOAGULANT 07/11/2019 OTTO MILLER MD Ot Z95.2 PRESENCE OF PROSTHETIC HEART VALVE 07/11/2019 LOIS GR MD, Ot 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 01 GAS PUMPER (CURRENT) USE OF ANTICOAGULANT 07/11/2019 MANUEL BASS MD, Ot Z95. 2 PRESENCE OF PROSTHETIC HEART VALVE 07/11/2019 MANUEL BASS MD, Ot Z51. 81 ENCOUNTER FOR THERAPEUTIC DRUG LEVEL MON 07/11/2019 MANUEL BASS MD, Ot Z79. 01 GAS PUMPER (CURRENT) USE OF ANTICOAGULANT 07/11/2019 MANUEL BASS MD, Ot Z51. 81 ENCOUNTER FOR THERAPEUTIC DRUG LEVEL MON 07/11/2019 MANUEL BASS MD, Ot Z79. 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 81 ENCOUNTER FOR THERAPEUTIC DRUG LEVEL MON 07/11/2019 MANUEL BASS MD, Ot Z79. 01 GAS PUMPER (CURRENT) USE OF ANTICOAGULANT 07/11/2019 LOIS GR MD Ot I70 .1 ATHEROSCLEROSIS OF RENAL ARTERY 07/11/2019 LOIS GR MD, Ot I70.203 UNSP ATHSCL [place] ARTERIES OF EXTREMITI 07/11/2019 LOIS GR MD Ot I77 .1 STRICTURE OF ARTERY 07/11/2019 LOIS GR MD Ot L97.123 NON-PRS CHRONIC ULCER OF LEFT THIGH W NE 07/11/2019 LOIS GR MD, Ot T87.81 DEHISCENCE OF AMPUTATION STUMP 07/11/2019 LOIS GR MD, Ot I70.241 ATHSCL [place] ARTERIES OF LEFT LEG W C 07/11/2019 LOIS GR MD, Ot L97.123 NON-PRS CHRONIC ULCER OF LEFT THIGH W NE 07/11/2019 LOIS GR MD, Ot T87.81 DEHISCENCE OF AMPUTATION STUMP 07/11/2019 MANUEL BASS MD, Ot Z51. 81 ENCOUNTER FOR THERAPEUTIC DRUG LEVEL MON 07/11/2019 MANUEL BASS MD, Ot Z79. 01 SHELTER (CURRENT) USE OF ANTICOAGULANT 07/11/2019 MARKUS FERRARI, LAURA Lord Ot I73 .9 PERIPHERAL VASCULAR DISEASE, UNSPECIFIED 07/11/2019 MANUEL BASS MD, Ot Z51. 81 ENCOUNTER FOR THERAPEUTIC DRUG LEVEL MON 07/11/2019 MANUEL BASS MD, Ot Z79. 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 07/11/2019 LOIS GR MD, Ot L97.122 NON-PRESSURE CHRONIC ULCER OF LEFT THIGH 07/11/2019 LOIS GR MD, Ot T87.81 DEHISCENCE OF AMPUTATION STUMP 07/11/2019 ANSON QUINTANILLA Ot E78.2 MIXED HYPERLIPIDEMIA 07/11/2019 ANSON QUINTANILLA Ot I25.10 ATHSCL HEART DISEASE OF [place] CORONARY 07/11/2019 ANSON QUINTANILLA Ot I65.23 OCCLUSION AND STENOSIS OF BILATERAL HER[place]NDE[place] 07/11/2019 ANSON QUINTANILLA Ot I73.9 PERIPHERAL VASCULAR DISEASE, UNSPECIFIED 07/11/2019 OTTO MILLER MD, Ot L97.122 NON-PRESSURE CHRONIC ULCER OF LEFT THIGH 07/11/2019 ANGELA FERRARI, OTTO Mcdonough Ot M62.838 OTHER MUSCLE SPASM 07/11/2019 LOIS GR MD, Ot 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 07/11/2019 LOIS GR MD, Ot L97.121 NON-PRS CHRONIC ULCER OF LEFT THIGH LIMI 07/11/2019 LOIS GR MD, Ot L97.122 NON-PRESSURE CHRONIC ULCER OF LEFT THIGH 07/11/2019 LOIS GR MD, Ot T87.81 DEHISCENCE OF AMPUTATION STUMP 07/11/2019 LOIS GR MD Ot I50.21 ACUTE SYSTOLIC (CONGESTIVE) HEART FAILUR 07/11/2019 LOIS GR MD, Ot I70.241 ATHSCL [place] ARTERIES OF LEFT LEG W [facility] 07/11/2019 LOIS GR MD Ot L97.121 NON-PRS CHRONIC ULCER OF LEFT THIGH LIMI 07/11/2019 LOIS GR MD Ot L97.122 NON-PRESSURE CHRONIC ULCER OF LEFT THIGH 07/11/2019 LOIS GR MD Ot N18 .4 CHRONIC KIDNEY DISEASE, STAGE 4 (SEVERE) 07/11/2019 LOIS GR MD, Ot T87.81 DEHISCENCE OF AMPUTATION STUMP 07/11/2019 LOIS GR MD Ot I70.241 ATHSCL [place] ARTERIES OF LEFT LEG W [facility] 07/11/2019 LOIS GR MD, Ot L97.121 NON-PRS CHRONIC ULCER OF LEFT THIGH LIMI 07/11/2019 LOIS GR MD, Ot L97.122 NON-PRESSURE CHRONIC ULCER OF LEFT THIGH 07/11/2019 LOIS GR MD, Ot T87.81 DEHISCENCE OF AMPUTATION STUMP 07/11/2019 MEL WOOD APRN Ot I70.241 ATHSCL [place] ARTERIES OF LEFT LEG W [facility] 07/11/2019 MEL WOOD MEDICARE INTERVIEWER Ot L97.121 NON-PRS CHRONIC ULCER OF LEFT THIGH LIMI 07/11/2019 MEL WOOD APRN Ot L97.122 NON-PRESSURE CHRONIC ULCER OF LEFT THIGH 07/11/2019 MEL WOOD APRN Ot T87.81 DEHISCENCE OF AMPUTATION STUMP 07/11/2019 LOIS GR MD Ot 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 [facility] 07/11/2019 LOIS GR MD Ot L97.121 NON-PRS CHRONIC ULCER OF LEFT THIGH LIMI 07/11/2019 LOIS GR MD Ot L97.122 NON-PRESSURE CHRONIC ULCER OF LEFT THIGH 07/11/2019 LOIS GR MD, Ot T87.81 DEHISCENCE OF AMPUTATION STUMP 07/11/2019 LOIS GR MD Ot L97.122 NON-PRESSURE CHRONIC ULCER OF LEFT THIGH 07/11/2019 ANGELA FERRARI, OTTO Mcdonough Ot I11.0 HYPERTENSIVE HEART DISEASE WITH HEART FA 07/11/2019 ANGELA FERRARI, OTTO Mcdonough Ot I50.9 HEART FAILURE, UNSPECIFIED 07/11/2019 LOIS GR MD Ot 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 81 DEHISCENCE OF AMPUTATION STUMP 07/11/2019 MANUEL BASS MD, Ot Z79. 01 GAS PUMPER (CURRENT) USE OF ANTICOAGULANT 07/11/2019 LOIS GR MD, Ot I70.241 ATHSCL [place] ARTERIES OF LEFT LEG W [facility] 07/11/2019 LOIS GR MD, Ot L97.122 NON-PRESSURE CHRONIC ULCER OF LEFT THIGH 07/11/2019 LOIS GR MD, Ot T65.222A TOXIC EFFECT OF TOBACCO CIGARETTES, SELF 07/11/2019 MANUEL BASS MD, Ot Z51. 81 ENCOUNTER FOR THERAPEUTIC DRUG LEVEL MON 07/11/2019 MANUEL BASS MD, Ot Z79. 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 81 ENCOUNTER FOR THERAPEUTIC DRUG LEVEL MON 07/11/2019 MANUEL BASS MD, Ot Z79. 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 81 ENCOUNTER FOR THERAPEUTIC DRUG LEVEL MON 07/11/2019 MANUEL BASS MD, Ot Z79. 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 61 ANTICOAGULANTS,LT,CURRENT USE 07/14/2019 MANUEL BASS MD Ot V58. 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 2 MIXED HYPERLIPIDEMIA 07/14/2019 MARINA ALMANZA APRN Ot L03.116 CELLULITIS OF LEFT LOWER LIMB 07/14/2019 MARINA ALMANZA APRN Ot R93.7 ABNORMAL FINDINGS ON DIAGNOSTIC IMAGING 07/14/2019 MARINA ALMANZA APRN Ot Z51.81 ENCOUNTER FOR THERAPEUTIC DRUG LEVEL MON 07/14/2019 MARINA ALMANZA APRN Ot Z79.01 GAS PUMPER (CURRENT) USE OF ANTICOAGULANT 07/14/2019 MANUEL BASS MD Ot E78. 5 HYPERLIPIDEMIA, UNSPECIFIED 07/14/2019 MANUEL BASS MD Ot I10 ESSENTIAL (PRIMARY) HYPERTENSION 07/14/2019 MANUEL BASS MD Ot I25. 10 ATHSCL HEART DISEASE OF [place] CORONARY 07/14/2019 MARINA ALMANZA APRN Ot Z51.81 ENCOUNTER FOR THERAPEUTIC DRUG LEVEL MON 07/14/2019 MARINA ALMANZA APRN Ot Z79.01 SHELTER (CURRENT) USE OF ANTICOAGULANT 07/14/2019 LOIS GR MD Ot 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 07/14/2019 LOIS GR MD Ot I87.323 CHRONIC VENOUS HTN W INFLAMMATION OF [place] 07/14/2019 LOIS GR MD Ot L97.523 NON-PRS CHRONIC ULCER OTH PRT LEFT FOOT 07/14/2019 OTTO MILLER MD Ot Z51.81 ENCOUNTER FOR THERAPEUTIC DRUG LEVEL MON 07/14/2019 OTTO MILLER MD Ot Z79.01 GAS PUMPER (CURRENT) USE OF ANTICOAGULANT 07/14/2019 OTTO MILLER MD Ot Z51.81 ENCOUNTER FOR THERAPEUTIC DRUG LEVEL MON 07/14/2019 OTTO MILLER MD, Ot Z79.01 GAS PUMPER (CURRENT) USE OF ANTICOAGULANT 07/14/2019 OTTO MILLER MD Ot Z95.2 PRESENCE OF PROSTHETIC HEART VALVE 07/14/2019 LOIS GR MD, Ot 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 07/14/2019 LOIS GR MD, Ot L97.123 NON-PRS CHRONIC ULCER OF LEFT THIGH W NE 07/14/2019 LOIS GR MD, Ot R54 AGE-RELATED PHYSICAL DEBILITY 07/14/2019 LOIS GR MD, Ot T86.821 SKIN GRAFT (ALLOGRAFT) (AUTOGRAFT) FAILU 07/14/2019 MANUEL BASS MD, Ot Z79. 01 SHELTER (CURRENT) USE OF ANTICOAGULANT 07/14/2019 MANUEL BASS MD, Ot Z95. 2 PRESENCE OF PROSTHETIC HEART VALVE 07/14/2019 MANUEL BASS MD, Ot Z51. 81 ENCOUNTER FOR THERAPEUTIC DRUG LEVEL MON 07/14/2019 MANUEL BASS MD, Ot Z79. 01 SHELTER (CURRENT) USE OF ANTICOAGULANT 07/14/2019 MANUEL BASS MD, Ot Z51. 81 ENCOUNTER FOR THERAPEUTIC DRUG LEVEL MON 07/14/2019 MANUEL BASS MD, Ot Z79. 01 GAS PUMPER (CURRENT) USE OF ANTICOAGULANT 07/14/2019 LOIS GR MD, Ot I70.241 ATHSCL [place] ARTERIES OF LEFT LEG W C 07/14/2019 LOIS GR MD, Ot L97.122 NON-PRESSURE CHRONIC ULCER OF LEFT THIGH 07/14/2019 LOIS GR MD, Ot T86.821 SKIN GRAFT (ALLOGRAFT) (AUTOGRAFT) FAILU 07/14/2019 LOIS GR MD, Ot T87.81 DEHISCENCE OF AMPUTATION STUMP 07/14/2019 MANUEL BASS MD, Ot Z51. 81 ENCOUNTER FOR THERAPEUTIC DRUG LEVEL MON 07/14/2019 MANUEL BASS MD, Ot Z79. 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 81 ENCOUNTER FOR THERAPEUTIC DRUG LEVEL MON 07/14/2019 MANUEL BASS MD, Ot Z79. 01 GAS PUMPER (CURRENT) USE OF ANTICOAGULANT 07/14/2019 LAURA APARICIO MD, Ot I73 .9 PERIPHERAL VASCULAR DISEASE, UNSPECIFIED 07/14/2019 MANUEL BASS MD, Ot Z51. 81 ENCOUNTER FOR THERAPEUTIC DRUG LEVEL MON 07/14/2019 MANUEL BASS MD, Ot Z79. 01 GAS PUMPER (CURRENT) USE OF ANTICOAGULANT 07/14/2019 LOIS GR MD, Ot L97.122 NON-PRESSURE CHRONIC ULCER OF LEFT THIGH 07/14/2019 LOIS GR MD, Ot I70.241 ATHSCL [place] ARTERIES OF LEFT LEG W [facility] 07/14/2019 LOIS GR MD, Ot L97.123 NON-PRS CHRONIC ULCER OF LEFT THIGH W [place] 07/14/2019 LOIS GR MD, Ot T87.81 DEHISCENCE OF AMPUTATION STUMP 07/14/2019 LOIS GR MD, Ot I70.241 ATHSCL [place] ARTERIES OF LEFT LEG W [facility] 07/14/2019 LOIS GR MD, Ot L97.122 NON-PRESSURE CHRONIC ULCER OF LEFT THIGH 07/14/2019 LOIS GR MD, Ot T87.81 DEHISCENCE OF AMPUTATION STUMP 07/14/2019 ANSON QUINTANILLA Ot E78.2 MIXED HYPERLIPIDEMIA 07/14/2019 ANSON QUINTANILLA Ot I25.10 ATHSCL HEART DISEASE OF [place] CORONARY 07/14/2019 ANSON QUINTANILLA Ot I65.23 OCCLUSION AND STENOSIS OF BILATERAL [place] 07/14/2019 ANSON QUINTANILLA Ot I73.9 PERIPHERAL VASCULAR DISEASE, UNSPECIFIED 07/14/2019 OTTO MILLER MD, Ot L97.122 NON-PRESSURE CHRONIC ULCER OF LEFT THIGH 07/14/2019 OTTO MILLER MD Ot M62.838 OTHER MUSCLE SPASM 07/14/2019 LOIS GR MD, Ot I70.241 ATHSCL [place] ARTERIES OF LEFT LEG W [facility] 07/14/2019 LOIS GR MD, Ot L97.121 NON-PRS CHRONIC ULCER OF LEFT THIGH LIMI 07/14/2019 LOIS GR MD, Ot L97.122 NON-PRESSURE CHRONIC ULCER OF LEFT THIGH 07/14/2019 LOIS GR MD, Ot T87.81 DEHISCENCE OF AMPUTATION STUMP 07/14/2019 LOIS GR MD, Ot I50.21 ACUTE SYSTOLIC (CONGESTIVE) HEART FAILUR 07/14/2019 LOIS GR MD, Ot I70.241 ATHSCL [place] ARTERIES OF LEFT LEG W [facility] 07/14/2019 LOIS GR MD, Ot L97.121 NON-PRS CHRONIC ULCER OF LEFT THIGH LIMI 07/14/2019 LOIS GR MD Ot L97.122 NON-PRESSURE CHRONIC ULCER OF LEFT THIGH 07/14/2019 LOIS GR MD Ot N18 .4 CHRONIC KIDNEY DISEASE, STAGE 4 (SEVERE) 07/14/2019 LOIS GR MD, Ot T87.81 DEHISCENCE OF AMPUTATION STUMP 07/14/2019 LOIS GR MD Ot I70.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 W [facility] 07/14/2019 LOIS GR MD, Ot L97.121 NON-PRS CHRONIC ULCER OF LEFT THIGH LIMI 07/14/2019 LOIS GR MD, Ot L97.122 NON-PRESSURE CHRONIC ULCER OF LEFT THIGH 07/14/2019 LOIS GR MD, Ot T87.81 DEHISCENCE OF AMPUTATION STUMP 07/14/2019 MEL WOOD APRN Ot I70.241 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 W [facility] 07/14/2019 MEL WOOD APRN Ot L97.121 NON-PRS CHRONIC ULCER OF LEFT THIGH LIMI 07/14/2019 MEL WOOD APRN Ot L97.122 NON-PRESSURE CHRONIC ULCER OF LEFT THIGH 07/14/2019 MEL WOOD APRN Ot T87.81 DEHISCENCE OF AMPUTATION STUMP 07/14/2019 LOIS GR MD, Ot I70.241 ATHSCL [place] ARTERIES OF LEFT LEG W [facility] 07/14/2019 LOIS GR MD, Ot L97.121 NON-PRS CHRONIC ULCER OF LEFT THIGH LIMI 07/14/2019 LOIS GR MD, Ot L97.122 NON-PRESSURE CHRONIC ULCER OF LEFT THIGH 07/14/2019 LOIS GR MD, Ot T87.81 DEHISCENCE OF AMPUTATION STUMP 07/14/2019 LOIS GR MD, Ot L97.122 NON-PRESSURE CHRONIC ULCER OF LEFT THIGH 07/14/2019 OTTO MILLER MD Ot I11.0 HYPERTENSIVE HEART DISEASE WITH HEART FA 07/14/2019 OTTO MILLER MD Ot I50.9 HEART FAILURE, UNSPECIFIED 07/14/2019 LOIS GR MD, Ot I70.241 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 81 DEHISCENCE OF AMPUTATION STUMP 07/14/2019 MANUEL BASS MD, Ot Z79. 01 GAS PUMPER (CURRENT) USE OF ANTICOAGULANT 07/14/2019 LOIS GR MD, Ot I70.241 ATHSCL [place] ARTERIES OF LEFT LEG W [facility] 07/14/2019 LOIS GR MD, Ot L97.122 NON-PRESSURE CHRONIC ULCER OF LEFT THIGH 07/14/2019 LOIS GR MD, Ot T65.222A TOXIC EFFECT OF TOBACCO CIGARETTES, SELF 07/14/2019 MANUEL BASS MD, Ot Z51. 81 ENCOUNTER FOR THERAPEUTIC DRUG LEVEL MON 07/14/2019 MANUEL BASS MD, Ot Z79. 01 GAS PUMPER (CURRENT) USE OF ANTICOAGULANT 07/14/2019 MANUEL BASS MD, Ot Z95. 2 PRESENCE OF PROSTHETIC HEART VALVE 07/14/2019 LOIS GR MD Ot 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 07/14/2019 LOIS GR MD, Ot L97.122 NON-PRESSURE CHRONIC ULCER OF LEFT THIGH 07/14/2019 LOIS GR MD Ot T65.222A TOXIC EFFECT OF TOBACCO CIGARETTES, SELF 07/14/2019 ANGELA FERRARI, OTTO Mcdonough Ot S69.91XA UNSP INJURY OF RIGHT WRIST, HAND AND FIN 07/14/2019 MANUEL BASS MD, Ot Z51. 81 ENCOUNTER FOR THERAPEUTIC DRUG LEVEL MON 07/14/2019 MANUEL BASS MD, Ot Z79. 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 81 ENCOUNTER FOR THERAPEUTIC DRUG LEVEL MON 07/14/2019 MANUEL BASS MD, Ot Z79. 01 GAS PUMPER (CURRENT) USE OF ANTICOAGULANT 07/14/2019 MANUEL BASS MD, Ot Z95. 2 PRESENCE OF PROSTHETIC HEART VALVE 07/14/2019 MARINA ALMANZA APRN Ot M25.532 PAIN IN LEFT WRIST 07/14/2019 MARINA ALMANZA APRN Ot M79.642 PAIN IN LEFT HAND 07/14/2019 MARINA ALMANZA APRN Ot W19.XXXA UNSPECIFIED FALL, INITIAL ENCOUNTER 07/15/2019 SHELIA FERRARI, MANUEL Garnica Ot V58. 61 ANTICOAGULANTS,LT,CURRENT USE 07/15/2019 MANUEL BASS MD Ot V58. 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 07/15/2019 MIKY CAVAZOS MEDICARE INTERVIEWER Ot 443.9 PERIPH VASCULAR DIS NOS 07/15/2019 MIKY CAVAZOS MEDICARE INTERVIEWER Ot 729.5 PAIN IN LIMB 07/15/2019 ANGELA FERRARI, OTTO Mcdonough Ot L03.032 CELLULITIS OF LEFT TOE 07/15/2019 MARINA ALMANZA MEDICARE INTERVIEWER Ot E78.5 HYPERLIPIDEMIA, UNSPECIFIED 07/15/2019 MARINA ALMANZA MEDICARE INTERVIEWER Ot I1 0 ESSENTIAL (PRIMARY) HYPERTENSION 07/15/2019 MARINA ALMANZA APRN Ot I25.10 ATHSCL HEART DISEASE OF [place] CORONARY 07/15/2019 MARINA ALMANZA MEDICARE INTERVIEWER Ot I65.23 OCCLUSION AND STENOSIS OF BILATERAL [place]DE[place] 07/15/2019 MARINA ALMANZA MEDICARE INTERVIEWER Ot L03.032 CELLULITIS OF LEFT TOE 07/15/2019 MANUEL BASS MD Ot E78. 2 MIXED HYPERLIPIDEMIA 07/15/2019 MARINA ALMANZA MEDICARE INTERVIEWER Ot L03.116 CELLULITIS OF LEFT LOWER LIMB 07/15/2019 MARINA ALMANZA MEDICARE INTERVIEWER Ot R93.7 ABNORMAL FINDINGS ON DIAGNOSTIC IMAGING 07/15/2019 MARINA ALMANZA APRN Ot Z51.81 ENCOUNTER FOR THERAPEUTIC DRUG LEVEL MON 07/15/2019 MARINA ALMANZA MEDICARE INTERVIEWER Ot Z79.01 SHELTER (CURRENT) USE OF ANTICOAGULANT 07/15/2019 MANUEL BASS MD Ot E78. 5 HYPERLIPIDEMIA, UNSPECIFIED 07/15/2019 MANUEL BASS MD Ot I10 ESSENTIAL (PRIMARY) HYPERTENSION 07/15/2019 MANUEL BASS MD, Ot I25. 10 ATHSCL HEART DISEASE OF [place] CORONARY 07/15/2019 MARINA ALMANZA APRN Ot Z51.81 ENCOUNTER FOR THERAPEUTIC DRUG LEVEL MON 07/15/2019 MARINA ALMANZA APRN Ot Z79.01 SHELTER (CURRENT) USE OF ANTICOAGULANT 07/15/2019 LOIS GR MD, Ot 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 07/15/2019 LOIS GR MD, Ot I87.323 CHRONIC VENOUS HTN W INFLAMMATION OF [place] 07/15/2019 LOIS GR MD, Ot L97.523 NON-PRS CHRONIC ULCER OTH PRT LEFT FOOT 07/15/2019 OTTO MILLER MD, Ot Z51.81 ENCOUNTER FOR THERAPEUTIC DRUG LEVEL MON 07/15/2019 OTTO MILLER MD, Ot Z79.01 GAS PUMPER (CURRENT) USE OF ANTICOAGULANT 07/15/2019 OTTO MILLER MD, Ot Z51.81 ENCOUNTER FOR THERAPEUTIC DRUG LEVEL MON 07/15/2019 OTTO MILLER MD, Ot Z79.01 SHELTER (CURRENT) USE OF ANTICOAGULANT 07/15/2019 OTTO MILLER MD Ot Z95.2 PRESENCE OF PROSTHETIC HEART VALVE 07/15/2019 LOIS GR MD, Ot 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 07/15/2019 LOIS GR MD, Ot L97.123 NON-PRS CHRONIC ULCER OF LEFT THIGH W NE 07/15/2019 LOIS GR MD Ot R54 AGE-RELATED PHYSICAL DEBILITY 07/15/2019 LOIS GR MD, Ot T86.821 SKIN GRAFT (ALLOGRAFT) (AUTOGRAFT) FAILU 07/15/2019 MANUEL BASS MD, Ot Z79. 01 SHELTER (CURRENT) USE OF ANTICOAGULANT 07/15/2019 MANUEL BASS MD, Ot Z95. 2 PRESENCE OF PROSTHETIC HEART VALVE 07/15/2019 MANUEL BASS MD, Ot Z51. 81 ENCOUNTER FOR THERAPEUTIC DRUG LEVEL MON 07/15/2019 MANUEL BASS MD, Ot Z79. 01 SHELTER (CURRENT) USE OF ANTICOAGULANT 07/15/2019 MANUEL BASS MD, Ot Z51. 81 ENCOUNTER FOR THERAPEUTIC DRUG LEVEL MON 07/15/2019 MANUEL BASS MD, Ot Z79. 01 GAS PUMPER (CURRENT) USE OF ANTICOAGULANT 07/15/2019 LOIS GR MD, Ot 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 07/15/2019 LOIS GR MD, Ot L97.122 NON-PRESSURE CHRONIC ULCER OF LEFT THIGH 07/15/2019 LOIS GR MD, Ot T86.821 SKIN GRAFT (ALLOGRAFT) (AUTOGRAFT) FAILU 07/15/2019 LOIS GR MD, Ot T87.81 DEHISCENCE OF AMPUTATION STUMP 07/15/2019 MANUEL BASS MD, Ot Z51. 81 ENCOUNTER FOR THERAPEUTIC DRUG LEVEL MON 07/15/2019 MANUEL BASS MD, Ot Z79. 01 SHELTER (CURRENT) USE OF ANTICOAGULANT 07/15/2019 LOIS GR MD, Ot I70 .1 ATHEROSCLEROSIS OF RENAL ARTERY 07/15/2019 LOIS GR MD, Ot I70.203 UNSP ATHSCL [place] ARTERIES OF EXTREMITI 07/15/2019 LOIS GR MD, Ot I77 .1 STRICTURE OF ARTERY 07/15/2019 LOIS GR MD, Ot L97.123 NON-PRS CHRONIC ULCER OF LEFT THIGH W NE 07/15/2019 LOIS GR MD, Ot T87.81 DEHISCENCE OF AMPUTATION STUMP 07/15/2019 LOIS GR MD, Ot I70.241 ATHSCL [place] ARTERIES OF LEFT LEG W [facility] 07/15/2019 LOIS GR MD, Ot L97.123 NON-PRS CHRONIC ULCER OF LEFT THIGH W NE 07/15/2019 LOIS GR MD, Ot T87.81 DEHISCENCE OF AMPUTATION STUMP 07/15/2019 MANUEL BASS MD, Ot Z51. 81 ENCOUNTER FOR THERAPEUTIC DRUG LEVEL MON 07/15/2019 MANUEL BASS MD, Ot Z79. 01 SHELTER (CURRENT) USE OF ANTICOAGULANT 07/15/2019 LAURA APARICIO MD Ot I73 .9 PERIPHERAL VASCULAR DISEASE, UNSPECIFIED 07/15/2019 MANUEL BASS MD, Ot Z51. 81 ENCOUNTER FOR THERAPEUTIC DRUG LEVEL MON 07/15/2019 MANUEL BASS MD, Ot Z79. 01 SHELTER (CURRENT) USE OF ANTICOAGULANT 07/15/2019 LOIS GR MD, Ot L97.122 NON-PRESSURE CHRONIC ULCER OF LEFT THIGH 07/15/2019 LOIS GR MD, Ot 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 07/15/2019 LOIS GR MD, Ot L97.123 NON-PRS CHRONIC ULCER OF LEFT THIGH W [place] 07/15/2019 LOIS GR MD, Ot T87.81 DEHISCENCE OF AMPUTATION STUMP 07/15/2019 LOIS GR MD, Ot I70.241 ATHSCL [place] ARTERIES OF LEFT LEG W [facility] 07/15/2019 LOIS GR MD, Ot L97.122 NON-PRESSURE CHRONIC ULCER OF LEFT THIGH 07/15/2019 LOIS GR MD, Ot T87.81 DEHISCENCE OF AMPUTATION STUMP 07/15/2019 ANSON QUINTANILLA Ot E78.2 MIXED HYPERLIPIDEMIA 07/15/2019 ANSON QUINTANILLA Ot I25.10 ATHSCL HEART DISEASE OF [place] CORONARY 07/15/2019 ANSON QUINTANILLA Ot I65.23 OCCLUSION AND STENOSIS OF BILATERAL [place] 07/15/2019 ANSON QUINTANILLA Ot I73.9 PERIPHERAL VASCULAR DISEASE, UNSPECIFIED 07/15/2019 OTTO MILLER MD, Ot L97.122 NON-PRESSURE CHRONIC ULCER OF LEFT THIGH 07/15/2019 OTTO MILLER MD Ot M62.838 OTHER MUSCLE SPASM 07/15/2019 LOIS GR MD, Ot I70.241 ATHSCL [place] ARTERIES OF LEFT LEG W [facility] 07/15/2019 LOIS GR MD, Ot L97.121 NON-PRS CHRONIC ULCER OF LEFT THIGH [place] 07/15/2019 LOIS GR MD, Ot L97.122 NON-PRESSURE CHRONIC ULCER OF LEFT THIGH 07/15/2019 LOIS GR MD, Ot T87.81 DEHISCENCE OF AMPUTATION STUMP 07/15/2019 LOIS GR MD Ot I50.21 ACUTE SYSTOLIC (CONGESTIVE) HEART FAILUR 07/15/2019 LOIS GR MD, Ot I70.241 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 W [facility] 07/15/2019 LOIS GR MD, Ot L97.121 NON-PRS CHRONIC ULCER OF LEFT THIGH [place] 07/15/2019 LOIS GR MD Ot L97.122 NON-PRESSURE CHRONIC ULCER OF LEFT THIGH 07/15/2019 LOIS GR MD, Ot N18 .4 CHRONIC KIDNEY DISEASE, STAGE 4 (SEVERE) 07/15/2019 LOIS GR MD, Ot T87.81 DEHISCENCE OF AMPUTATION STUMP 07/15/2019 LOIS GR MD Ot 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 [facility] 07/15/2019 LOIS GR MD, Ot L97.121 NON-PRS CHRONIC ULCER OF LEFT THIGH LIM[place] 07/15/2019 LOIS GR MD Ot L97.122 NON-PRESSURE CHRONIC ULCER OF LEFT THIGH 07/15/2019 LOIS GR MD, Ot T87.81 DEHISCENCE OF AMPUTATION STUMP 07/15/2019 MEL WOOD APRN Ot 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 [facility] 07/15/2019 MEL WOOD MEDICARE INTERVIEWER Ot L97.121 NON-PRS CHRONIC ULCER OF LEFT THIGH [place] 07/15/2019 MEL WOOD MEDICARE INTERVIEWER Ot L97.122 NON-PRESSURE CHRONIC ULCER OF LEFT THIGH 07/15/2019 MEL WOOD MEDICARE INTERVIEWER Ot T87.81 DEHISCENCE OF AMPUTATION STUMP 07/15/2019 LOIS GR MD, Ot 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 [facility] 07/15/2019 LOIS GR MD Ot L97.121 NON-PRS CHRONIC ULCER OF LEFT THIGH LIMI 07/15/2019 LOIS GR MD Ot L97.122 NON-PRESSURE CHRONIC ULCER OF LEFT THIGH 07/15/2019 LOIS GR MD, Ot T87.81 DEHISCENCE OF AMPUTATION STUMP 07/15/2019 LOIS GR MD Ot L97.122 NON-PRESSURE CHRONIC ULCER OF LEFT THIGH 07/15/2019 OTTO MILLER MD Ot I11.0 HYPERTENSIVE HEART DISEASE WITH HEART FA 07/15/2019 OTTO MILLER MD Ot I50.9 HEART FAILURE, UNSPECIFIED 07/15/2019 LOIS GR MD Ot 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 81 DEHISCENCE OF AMPUTATION STUMP 07/15/2019 MANUEL BASS MD, Ot Z79. 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 81 ENCOUNTER FOR THERAPEUTIC DRUG LEVEL MON 07/15/2019 MANUEL BASS MD, Ot Z79. 01 SHELTER (CURRENT) USE OF ANTICOAGULANT 07/15/2019 MANUEL BASS MD, Ot Z95. 2 PRESENCE OF PROSTHETIC HEART VALVE 07/15/2019 LOIS GR MD, Ot I70.241 ATH[place]CL [place] ARTERIES OF LEFT LEG W [facility] 07/15/2019 LOIS GR MD, Ot L97.122 NON-PRESSURE CHRONIC ULCER OF LEFT THIGH 07/15/2019 LOIS GR MD, Ot T65.222A TOXIC EFFECT OF TOBACCO CIGARETTES, SELF 07/15/2019 OTTO MILLER MD Ot S69.91XA UNSP INJURY OF RIGHT WRIST, HAND AND FIN 07/15/2019 MANUEL BASS MD, Ot Z51. 81 ENCOUNTER FOR THERAPEUTIC DRUG LEVEL MON 07/15/2019 MANUEL BASS MD, Ot Z79. 01 GAS PUMPER (CURRENT) USE OF ANTICOAGULANT 07/15/2019 MANUEL BASS MD, Ot Z95. 2 PRESENCE OF PROSTHETIC HEART VALVE 07/15/2019 ANSON QUINTANILLA Ot E78.2 MIXED HYPERLIPIDEMIA 07/15/2019 ANSON QUINTANILLA Ot I08.3 COMB RHEUMATIC DISORD OF MITRAL, AORTIC 07/15/2019 ANSON QUINTANILLA Ot I10 ESSENTIAL (PRIMARY) HYPERTENSION 07/15/2019 ANSON QUINTANILLA Ot I25.10 ATHSCL HEART DISEASE OF [place] CORONARY 07/15/2019 ANSON QUINTANILLA Ot I65.29 OCCLUSION AND STENOSIS OF UNSPECIFIED CA 07/15/2019 ANSON QUINTANILLA Ot Z95.2 PRESENCE OF PROSTHETIC HEART VALVE 07/15/2019 MANUEL BASS MD Ot Z51. 81 ENCOUNTER FOR THERAPEUTIC DRUG LEVEL MON 07/15/2019 MANUEL BASS MD, Ot Z79. 01 GAS PUMPER (CURRENT) USE OF ANTICOAGULANT 07/15/2019 MANUEL BASS MD, Ot Z95. 2 PRESENCE OF PROSTHETIC HEART VALVE 07/15/2019 MARINA ALMANZA APRN Ot M25.532 PAIN IN LEFT WRIST 07/15/2019 MARINA ALMNAZA APRN Ot M79.642 PAIN IN LEFT HAND 07/15/2019 MARINA ALMANZA APRN Ot W19.XXXA UNSPECIFIED FALL, INITIAL ENCOUNTER 07/18/2019 MANUEL BASS MD Ot V58. 61 ANTICOAGULANTS,LT,CURRENT USE 07/18/2019 MANUEL BASS MD Ot V58. 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 07/18/2019 MIKY CAVAZOS MEDICARE INTERVIEWER Ot 443.9 PERIPH VASCULAR DIS NOS 07/18/2019 MIKY CAVAZOS APRN Ot 729.5 PAIN IN LIMB 07/18/2019 ANGELA FERRARI, OTTO Mcdonough Ot L03.032 CELLULITIS OF LEFT TOE 07/18/2019 MARINA ALMANZA APRN Ot E78.5 HYPERLIPIDEMIA, UNSPECIFIED 07/18/2019 MARINA ALMANZA APRN Ot I1 0 ESSENTIAL (PRIMARY) HYPERTENSION 07/18/2019 MARINA ALMANZA APRN Ot I25.10 ATHSCL HEART DISEASE OF [place] CORONARY 07/18/2019 MARINA ALMANZA APRN Ot I65.23 OCCLUSION AND STENOSIS OF BILATERAL [place]DE[place] 07/18/2019 MARINA ALMANZA APRN Ot L03.032 CELLULITIS OF LEFT TOE 07/18/2019 MANUEL BASS MD Ot E78. 2 MIXED HYPERLIPIDEMIA 07/18/2019 MARINA ALMANZA APRN Ot L03.116 CELLULITIS OF LEFT LOWER LIMB 07/18/2019 MARINA ALMANZA APRN Ot R93.7 ABNORMAL FINDINGS ON DIAGNOSTIC IMAGING 07/18/2019 MARINA ALMANZA APRN Ot Z51.81 ENCOUNTER FOR THERAPEUTIC DRUG LEVEL MON 07/18/2019 MARINA ALMANZA APRN Ot Z79.01 SHELTER (CURRENT) USE OF ANTICOAGULANT 07/18/2019 MANUEL BASS MD Ot E78. 5 HYPERLIPIDEMIA, UNSPECIFIED 07/18/2019 MANUEL BASS MD Ot I10 ESSENTIAL (PRIMARY) HYPERTENSION 07/18/2019 MANUEL BASS MD Ot I25. 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 07/18/2019 LOIS GR MD Ot I87.323 CHRONIC VENOUS HTN W INFLAMMATION OF [place]UL[place] 07/18/2019 LOIS GR MD Ot L97.523 NON-PRS CHRONIC ULCER OTH PRT LEFT FOOT 07/18/2019 OTTO MILLER MD Ot Z51.81 ENCOUNTER FOR THERAPEUTIC DRUG LEVEL MON 07/18/2019 OTTO MILLER MD Ot Z79.01 GAS PUMPER (CURRENT) USE OF ANTICOAGULANT 07/18/2019 OTTO MILLER MD Ot Z51.81 ENCOUNTER FOR THERAPEUTIC DRUG LEVEL MON 07/18/2019 OTTO MILLER MD Ot Z79.01 SHELTER (CURRENT) USE OF ANTICOAGULANT 07/18/2019 OTTO MILLER MD Ot Z95.2 PRESENCE OF PROSTHETIC HEART VALVE 07/18/2019 LOIS GR MD Ot 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 07/18/2019 LOIS GR MD, Ot L97.123 NON-PRS CHRONIC ULCER OF LEFT THIGH W NE 07/18/2019 LOIS GR MD, Ot R54 AGE-RELATED PHYSICAL DEBILITY 07/18/2019 LOIS GR MD, Ot T86.821 SKIN GRAFT (ALLOGRAFT) (AUTOGRAFT) FAILU 07/18/2019 MANUEL BASS MD, Ot Z79. 01 GAS PUMPER (CURRENT) USE OF ANTICOAGULANT 07/18/2019 MANUEL BASS MD, Ot Z95. 2 PRESENCE OF PROSTHETIC HEART VALVE 07/18/2019 MANUEL BASS MD, Ot Z51. 81 ENCOUNTER FOR THERAPEUTIC DRUG LEVEL MON 07/18/2019 MANUEL BASS MD, Ot Z79. 01 GAS PUMPER (CURRENT) USE OF ANTICOAGULANT 07/18/2019 MANUEL BASS MD, Ot Z51. 81 ENCOUNTER FOR THERAPEUTIC DRUG LEVEL MON 07/18/2019 MANUEL BASS MD, Ot Z79. 01 GAS PUMPER (CURRENT) USE OF ANTICOAGULANT 07/18/2019 LOIS GR MD, Ot 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 07/18/2019 LOIS GR MD, Ot L97.122 NON-PRESSURE CHRONIC ULCER OF LEFT THIGH 07/18/2019 LOIS GR MD, Ot T86.821 SKIN GRAFT (ALLOGRAFT) (AUTOGRAFT) FAILU 07/18/2019 LOIS GR MD, Ot T87.81 DEHISCENCE OF AMPUTATION STUMP 07/18/2019 MANUEL BASS MD, Ot Z51. 81 ENCOUNTER FOR THERAPEUTIC DRUG LEVEL MON 07/18/2019 MANUEL BASS MD, Ot Z79. 01 SHELTER (CURRENT) USE OF ANTICOAGULANT 07/18/2019 LOIS GR MD, Ot I70 .1 ATHEROSCLEROSIS OF RENAL ARTERY 07/18/2019 LOIS GR MD, Ot I70.203 UNSP ATHSCL [place] ARTERIES OF EXTREMITI 07/18/2019 LOSI GR MD, Ot I77 .1 STRICTURE OF ARTERY 07/18/2019 LOIS GR MD, Ot L97.123 NON-PRS CHRONIC ULCER OF LEFT THIGH W NE 07/18/2019 LOIS GR MD, Ot T87.81 DEHISCENCE OF AMPUTATION STUMP 07/18/2019 LOIS GR MD, Ot I70.241 ATH[place]CL [place] ARTERIES OF LEFT LEG W [facility] 07/18/2019 LOIS GR MD, Ot L97.123 NON-PRS CHRONIC ULCER OF LEFT THIGH W NE 07/18/2019 LOIS GR MD, Ot T87.81 DEHISCENCE OF AMPUTATION STUMP 07/18/2019 MANUEL BASS MD, Ot Z51. 81 ENCOUNTER FOR THERAPEUTIC DRUG LEVEL MON 07/18/2019 MANUEL BASS MD, Ot Z79. 01 SHELTER (CURRENT) USE OF ANTICOAGULANT 07/18/2019 LAURA APARICIO MD Ot I73 .9 PERIPHERAL VASCULAR DISEASE, UNSPECIFIED 07/18/2019 MANUEL BASS MD, Ot Z51. 81 ENCOUNTER FOR THERAPEUTIC DRUG LEVEL MON 07/18/2019 MANUEL BASS MD, Ot Z79. 01 SHELTER (CURRENT) USE OF ANTICOAGULANT 07/18/2019 LOIS GR MD, Ot L97.122 NON-PRESSURE CHRONIC ULCER OF LEFT THIGH 07/18/2019 LOIS GR MD, Ot I70.241 ATH[place]CL [place] ARTERIES OF LEFT LEG W [facility] 07/18/2019 LOIS GR MD, Ot L97.123 NON-PRS CHRONIC ULCER OF LEFT THIGH W [place] 07/18/2019 LOIS GR MD, Ot T87.81 DEHISCENCE OF AMPUTATION STUMP 07/18/2019 LOIS GR MD, Ot I70.241 ATHSCL [place] ARTERIES OF LEFT LEG W [facility] 07/18/2019 LOIS GR MD, Ot L97.122 NON-PRESSURE CHRONIC ULCER OF LEFT THIGH 07/18/2019 LOIS GR MD, Ot T87.81 DEHISCENCE OF AMPUTATION STUMP 07/18/2019 ANSON QUINTANILLA Ot E78.2 MIXED HYPERLIPIDEMIA 07/18/2019 ANSON QUINTANILLA Ot I25.10 ATHSCL HEART DISEASE OF [place] CORONARY 07/18/2019 ANSON QUINTANILLA Ot I65.23 OCCLUSION AND STENOSIS OF BILATERAL [place] 07/18/2019 ANSON QUINTANILLA Ot I73.9 PERIPHERAL VASCULAR DISEASE, UNSPECIFIED 07/18/2019 OTTO MILLER MD, Ot L97.122 NON-PRESSURE CHRONIC ULCER OF LEFT THIGH 07/18/2019 OTTO MILLER MD, Ot M62.838 OTHER MUSCLE SPASM 07/18/2019 LOIS GR MD, Ot I70.241 ATHSCL [place] ARTERIES OF LEFT LEG W [facility] 07/18/2019 LOIS GR MD, Ot L97.121 NON-PRS CHRONIC ULCER OF LEFT THIGH LIMI 07/18/2019 LOIS GR MD, Ot L97.122 NON-PRESSURE CHRONIC ULCER OF LEFT THIGH 07/18/2019 LOIS GR MD, Ot T87.81 DEHISCENCE OF AMPUTATION STUMP 07/18/2019 LOIS GR MD, Ot I50.21 ACUTE SYSTOLIC (CONGESTIVE) HEART FAILUR 07/18/2019 LOIS GR MD, Ot I70.241 ATHSCL [place] ARTERIES OF LEFT LEG W [facility] 07/18/2019 LOIS GR MD, Ot L97.121 NON-PRS CHRONIC ULCER OF LEFT THIGH LIMI 07/18/2019 LOIS GR MD, Ot L97.122 NON-PRESSURE CHRONIC ULCER OF LEFT THIGH 07/18/2019 LOIS GR MD, Ot N18 .4 CHRONIC KIDNEY DISEASE, STAGE 4 (SEVERE) 07/18/2019 LOIS GR MD, Ot T87.81 DEHISCENCE OF AMPUTATION STUMP 07/18/2019 LOIS GR MD, Ot I70.241 ATHSCL [place] ARTERIES OF LEFT LEG W [facility] 07/18/2019 LOIS GR MD, Ot L97.121 NON-PRS CHRONIC ULCER OF LEFT THIGH LIMI 07/18/2019 LOIS GR MD, Ot L97.122 NON-PRESSURE CHRONIC ULCER OF LEFT THIGH 07/18/2019 LOIS GR MD, Ot T87.81 DEHISCENCE OF AMPUTATION STUMP 07/18/2019 MEL WOOD APRN Ot I70.241 ATHSCL [place] ARTERIES OF LEFT LEG W [facility] 07/18/2019 MEL WOOD APRN Ot L97.121 NON-PRS CHRONIC ULCER OF LEFT THIGH LIMI 07/18/2019 MEL WOOD APRN Ot L97.122 NON-PRESSURE CHRONIC ULCER OF LEFT THIGH 07/18/2019 MEL WOOD APRN Ot T87.81 DEHISCENCE OF AMPUTATION STUMP 07/18/2019 LOIS GR MD, Ot I70.241 ATHSCL [place] ARTERIES OF LEFT LEG W [facility] 07/18/2019 LOIS GR MD, Ot L97.121 NON-PRS CHRONIC ULCER OF LEFT THIGH LIMI 07/18/2019 LOIS GR MD, Ot L97.122 NON-PRESSURE CHRONIC ULCER OF LEFT THIGH 07/18/2019 LOIS GR MD, Ot T87.81 DEHISCENCE OF AMPUTATION STUMP 07/18/2019 LOIS GR MD, Ot L97.122 NON-PRESSURE CHRONIC ULCER OF LEFT THIGH 07/18/2019 OTTO MILLER MD Ot I11.0 HYPERTENSIVE HEART DISEASE WITH HEART FA 07/18/2019 OTTO MILLER MD Ot I50.9 HEART FAILURE, UNSPECIFIED 07/18/2019 LOIS GR MD, Ot 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 81 DEHISCENCE OF AMPUTATION STUMP 07/18/2019 MANUEL BASS MD, Ot Z79. 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 81 ENCOUNTER FOR THERAPEUTIC DRUG LEVEL MON 07/18/2019 MANUEL BASS MD, Ot Z79. 01 SHELTER (CURRENT) USE OF ANTICOAGULANT 07/18/2019 MANUEL BASS MD, Ot Z95. 2 PRESENCE OF PROSTHETIC HEART VALVE 07/18/2019 LOIS GR MD Ot 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 07/18/2019 LOIS GR MD Ot L97.122 NON-PRESSURE CHRONIC ULCER OF LEFT THIGH 07/18/2019 LOIS GR MD Ot T65.222A TOXIC EFFECT OF TOBACCO CIGARETTES, SELF 07/18/2019 ANGELA FERRARI, OTTO Mcdonough Ot S69.91XA UNSP INJURY OF RIGHT WRIST, HAND AND FIN 07/18/2019 MANUEL BASS MD Ot Z51. 81 ENCOUNTER FOR THERAPEUTIC DRUG LEVEL MON 07/18/2019 MANUEL BASS MD, Ot Z79. 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 81 ENCOUNTER FOR THERAPEUTIC DRUG LEVEL MON 07/18/2019 MANUEL BASS MD, Ot Z79. 01 SHELTER (CURRENT) USE OF ANTICOAGULANT 07/18/2019 MANUEL BASS MD, Ot Z95. 2 PRESENCE OF PROSTHETIC HEART VALVE 07/18/2019 MARINA ALMANZA APRN Ot M25.532 PAIN IN LEFT WRIST 07/18/2019 MARINA ALMANZA APRN Ot M79.642 PAIN IN LEFT HAND 07/18/2019 MARINA ALMANZA APRN Ot W19.XXXA UNSPECIFIED FALL, INITIAL ENCOUNTER 07/18/2019 MANUEL BASS MD Ot V58. 61 ANTICOAGULANTS,LT,CURRENT USE 07/18/2019 MANUEL BASS MD, Ot V58. 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 07/18/2019 MIKY CAVAZOS MEDICARE INTERVIEWER Ot 443.9 PERIPH VASCULAR DIS NOS 07/18/2019 MIKY ACVAZOS MEDICARE INTERVIEWER Ot 729.5 PAIN IN LIMB 07/18/2019 ANGELA FERRARI, OTTO Mcdonough Ot L03.032 CELLULITIS OF LEFT TOE 07/18/2019 MARINA ALMANZA APRN Ot E78.5 HYPERLIPIDEMIA, UNSPECIFIED 07/18/2019 MARINA ALMANZA APRN Ot I1 0 ESSENTIAL (PRIMARY) HYPERTENSION 07/18/2019 MARINA ALMANZA APRN Ot I25.10 ATHSCL HEART DISEASE OF [place] CORONARY 07/18/2019 MARINA ALMANZA APRN Ot I65.23 OCCLUSION AND STENOSIS OF BILATERAL [place] 07/18/2019 MARINA ALMANZA APRN Ot L03.032 CELLULITIS OF LEFT TOE 07/18/2019 MANUEL BASS MD Ot E78. 2 MIXED HYPERLIPIDEMIA 07/18/2019 MARINA ALMANZA APRN Ot L03.116 CELLULITIS OF LEFT LOWER LIMB 07/18/2019 MARINA ALMANZA APRN Ot R93.7 ABNORMAL FINDINGS ON DIAGNOSTIC IMAGING 07/18/2019 MARINA ALMANZA APRN Ot Z51.81 ENCOUNTER FOR THERAPEUTIC DRUG LEVEL MON 07/18/2019 MARINA ALMANZA APRN Ot Z79.01 SHELTER (CURRENT) USE OF ANTICOAGULANT 07/18/2019 MANUEL BASS MD Ot E78. 5 HYPERLIPIDEMIA, UNSPECIFIED 07/18/2019 MANUEL BASS MD Ot I10 ESSENTIAL (PRIMARY) HYPERTENSION 07/18/2019 MANUEL BASS MD Ot I25. 10 ATHSCL HEART DISEASE OF [place] CORONARY 07/18/2019 MARINA ALMANZA APRN Ot Z51.81 ENCOUNTER FOR THERAPEUTIC DRUG LEVEL MON 07/18/2019 MARINA ALMANZA APRN Ot Z79.01 SHELTER (CURRENT) USE OF ANTICOAGULANT 07/18/2019 LOIS GR MD, Ot 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 07/18/2019 LOIS GR MD, Ot I87.323 CHRONIC VENOUS HTN W INFLAMMATION OF [place] 07/18/2019 LOIS GR MD, Ot L97.523 NON-PRS CHRONIC ULCER OTH PRT LEFT FOOT 07/18/2019 OTTO MILLER MD, Ot Z51.81 ENCOUNTER FOR THERAPEUTIC DRUG LEVEL MON 07/18/2019 OTTO MILLER MD, Ot Z79.01 GAS PUMPER (CURRENT) USE OF ANTICOAGULANT 07/18/2019 OTTO MILLER MD, Ot Z51.81 ENCOUNTER FOR THERAPEUTIC DRUG LEVEL MON 07/18/2019 OTTO MILLER MD, Ot Z79.01 GAS PUMPER (CURRENT) USE OF ANTICOAGULANT 07/18/2019 OTTO MILLER MD, Ot Z95.2 PRESENCE OF PROSTHETIC HEART VALVE 07/18/2019 LOIS GR MD, Ot I70.241 ATHSCL [place] ARTERIES OF LEFT LEG W C 07/18/2019 LOIS GR MD, Ot L97.123 NON-PRS CHRONIC ULCER OF LEFT THIGH W NE 07/18/2019 LOIS GR MD, Ot R54 AGE-RELATED PHYSICAL DEBILITY 07/18/2019 LOIS GR MD, Ot T86.821 SKIN GRAFT (ALLOGRAFT) (AUTOGRAFT) FAILU 07/18/2019 MANUEL BASS MD, Ot Z79. 01 GAS PUMPER (CURRENT) USE OF ANTICOAGULANT 07/18/2019 MANUEL BASS MD, Ot Z95. 2 PRESENCE OF PROSTHETIC HEART VALVE 07/18/2019 MANUEL BASS MD, Ot Z51. 81 ENCOUNTER FOR THERAPEUTIC DRUG LEVEL MON 07/18/2019 MANUEL BASS MD, Ot Z79. 01 SHELTER (CURRENT) USE OF ANTICOAGULANT 07/18/2019 MANUEL BASS MD, Ot Z51. 81 ENCOUNTER FOR THERAPEUTIC DRUG LEVEL MON 07/18/2019 MANUEL BASS MD, Ot Z79. 01 GAS PUMPER (CURRENT) USE OF ANTICOAGULANT 07/18/2019 LOIS GR MD, Ot I70.241 ATHSCL [place] ARTERIES OF LEFT LEG W [facility] 07/18/2019 LOIS GR MD, Ot L97.122 NON-PRESSURE CHRONIC ULCER OF LEFT THIGH 07/18/2019 LOIS GR MD, Ot T86.821 SKIN GRAFT (ALLOGRAFT) (AUTOGRAFT) FAILU 07/18/2019 LOIS GR MD, Ot T87.81 DEHISCENCE OF AMPUTATION STUMP 07/18/2019 MANUEL BASS MD, Ot Z51. 81 ENCOUNTER FOR THERAPEUTIC DRUG LEVEL MON 07/18/2019 MANUEL BASS MD, Ot Z79. 01 SHELTER (CURRENT) USE OF ANTICOAGULANT 07/18/2019 LOIS GR MD, Ot I70 .1 ATHEROSCLEROSIS OF RENAL ARTERY 07/18/2019 LOIS GR MD, Ot I70.203 UNSP ATHSCL [place] ARTERIES OF EXTREMITI 07/18/2019 LOIS GR MD, Ot I77 .1 STRICTURE OF ARTERY 07/18/2019 LOIS GR MD, Ot L97.123 NON-PRS CHRONIC ULCER OF LEFT THIGH W NE 07/18/2019 LOIS GR MD, Ot T87.81 DEHISCENCE OF AMPUTATION STUMP 07/18/2019 LOIS GR MD, Ot I70.241 ATHSCL [place] ARTERIES OF LEFT LEG W [facility] 07/18/2019 LOIS GR MD, Ot L97.123 NON-PRS CHRONIC ULCER OF LEFT THIGH W NE 07/18/2019 LOIS GR MD, Ot T87.81 DEHISCENCE OF AMPUTATION STUMP 07/18/2019 MANUEL BASS MD, Ot Z51. 81 ENCOUNTER FOR THERAPEUTIC DRUG LEVEL MON 07/18/2019 MANUEL BASS MD, Ot Z79. 01 SHELTER (CURRENT) USE OF ANTICOAGULANT 07/18/2019 MARKUS FERRARI, LAURA Lord Ot I73 .9 PERIPHERAL VASCULAR DISEASE, UNSPECIFIED 07/18/2019 MANUEL BASS MD, Ot Z51. 81 ENCOUNTER FOR THERAPEUTIC DRUG LEVEL MON 07/18/2019 MANUEL BASS MD, Ot Z79. 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 07/18/2019 LOIS GR MD, Ot L97.123 NON-PRS CHRONIC ULCER OF LEFT THIGH W NE 07/18/2019 LOIS GR MD, Ot T87.81 DEHISCENCE OF AMPUTATION STUMP 07/18/2019 LOIS GR MD, Ot I70.241 ATHSCL [place] ARTERIES OF LEFT LEG W [facility] 07/18/2019 LOIS GR MD, Ot L97.122 NON-PRESSURE CHRONIC ULCER OF LEFT THIGH 07/18/2019 LOIS GR MD, Ot T87.81 DEHISCENCE OF AMPUTATION STUMP 07/18/2019 CAROLYN MOSQUEDA, ANSON Daniel Ot E78.2 MIXED HYPERLIPIDEMIA 07/18/2019 CAROLYN MOSQUEDA, ANSON Daniel Ot I25.10 ATHSCL HEART DISEASE OF [place] CORONARY 07/18/2019 CAROLYN MOSQUEDA, ANSON Daniel Ot I65.23 OCCLUSION AND STENOSIS OF BILATERAL [place]DE[place] 07/18/2019 CAROLYN MOSQUEDA, ANSON Daniel Ot I73.9 PERIPHERAL VASCULAR DISEASE, UNSPECIFIED 07/18/2019 OTTO MILLER MD, Ot L97.122 NON-PRESSURE CHRONIC ULCER OF LEFT THIGH 07/18/2019 OTTO MILLER MD Ot M62.838 OTHER MUSCLE SPASM 07/18/2019 LOIS GR MD, Ot I70.241 ATHSCL [place] ARTERIES OF LEFT LEG W [facility] 07/18/2019 LOIS GR MD, Ot L97.121 NON-PRS CHRONIC ULCER OF LEFT THIGH [place] 07/18/2019 LOIS GR MD, Ot L97.122 NON-PRESSURE CHRONIC ULCER OF LEFT THIGH 07/18/2019 LOIS GR MD, Ot T87.81 DEHISCENCE OF AMPUTATION STUMP 07/18/2019 LOIS GR MD Ot I50.21 ACUTE SYSTOLIC (CONGESTIVE) HEART FAILUR 07/18/2019 LOIS GR MD, Ot I70.241 ATHSCL [place] ARTERIES OF LEFT LEG W [facility] 07/18/2019 LOIS GR MD, Ot L97.121 NON-PRS CHRONIC ULCER OF LEFT THIGH [place] 07/18/2019 LOIS GR MD, Ot L97.122 NON-PRESSURE CHRONIC ULCER OF LEFT THIGH 07/18/2019 LOIS GR MD, Ot N18 .4 CHRONIC KIDNEY DISEASE, STAGE 4 (SEVERE) 07/18/2019 LOIS GR MD, Ot T87.81 DEHISCENCE OF AMPUTATION STUMP 07/18/2019 LOIS GR MD, Ot I70.241 ATHSCL [place] ARTERIES OF LEFT LEG W [facility] 07/18/2019 LOIS GR MD, Ot L97.121 NON-PRS CHRONIC ULCER OF LEFT THIGH [place] 07/18/2019 LOIS GR MD, Ot L97.122 NON-PRESSURE CHRONIC ULCER OF LEFT THIGH 07/18/2019 LOIS GR MD, Ot T87.81 DEHISCENCE OF AMPUTATION STUMP 07/18/2019 MEL WOOD APRN Ot I70.241 ATHSCL [place] ARTERIES OF LEFT LEG W [facility] 07/18/2019 MEL WOOD APRN Ot L97.121 NON-PRS CHRONIC ULCER OF LEFT THIGH [place] 07/18/2019 MEL WOOD APRN Ot L97.122 NON-PRESSURE CHRONIC ULCER OF LEFT THIGH 07/18/2019 MEL WOOD APRN Ot T87.81 DEHISCENCE OF AMPUTATION STUMP 07/18/2019 LOIS GR MD Ot I70.241 ATH[place]CL [place] ARTERIES OF LEFT LEG W [facility] 07/18/2019 LOIS GR MD, Ot L97.121 NON-PRS CHRONIC ULCER OF LEFT THIGH [place] 07/18/2019 LOIS GR MD, Ot L97.122 NON-PRESSURE CHRONIC ULCER OF LEFT THIGH 07/18/2019 LOIS GR MD, Ot T87.81 DEHISCENCE OF AMPUTATION STUMP 07/18/2019 LOIS GR MD, Ot L97.122 NON-PRESSURE CHRONIC ULCER OF LEFT THIGH 07/18/2019 ANGELA FERRARI, OTTO Mcdonough Ot I11.0 HYPERTENSIVE HEART DISEASE WITH HEART FA 07/18/2019 ANGELA FERRARI, OTTO Mcdonough Ot I50.9 HEART FAILURE, UNSPECIFIED 07/18/2019 LOIS GR MD Ot I70.241 [place]TH[place]CL [place] ARTERIES OF LEFT LEG W [facility] 07/18/2019 LOIS GR MD, Ot L97.121 NON-PRS CHRONIC ULCER OF LEFT THIGH [place] 07/18/2019 LOIS GR MD Ot L97.122 NON-PRESSURE CHRONIC ULCER OF LEFT THIGH 07/18/2019 LOIS GR MD, Ot T87.81 DEHISCENCE OF AMPUTATION STUMP 07/18/2019 MANUEL BASS MD Ot I70.241 ATHSCL [place] ARTERIES OF LEFT LEG W [facility] 07/18/2019 MANUEL BASS MD Ot L97.121 NON-PRS CHRONIC ULCER OF LEFT THIGH [place] 07/18/2019 MANUEL BASS MD, Ot L97.122 NON-PRESSURE CHRONIC ULCER OF LEFT THIGH 07/18/2019 MANUEL BASS MD, Ot T87. 81 DEHISCENCE OF AMPUTATION STUMP 07/18/2019 MANUEL BASS MD, Ot Z79. 01 SHELTER (CURRENT) USE OF ANTICOAGULANT 07/18/2019 LOIS GR MD, Ot I70.241 ATHSCL [place] ARTERIES OF LEFT LEG W C 07/18/2019 LOIS GR MD, Ot L97.122 NON-PRESSURE CHRONIC ULCER OF LEFT THIGH 07/18/2019 LOIS GR MD, Ot T65.222A TOXIC EFFECT OF TOBACCO CIGARETTES, SELF 07/18/2019 MANUEL BASS MD, Ot Z51. 81 ENCOUNTER FOR THERAPEUTIC DRUG LEVEL MON 07/18/2019 MANUEL BASS MD, Ot Z79. 01 SHELTER (CURRENT) USE OF ANTICOAGULANT 07/18/2019 MANUEL BASS MD, Ot Z95. 2 PRESENCE OF PROSTHETIC HEART VALVE 07/18/2019 LOIS GR MD, Ot I70.241 [place]CL [place] ARTERIES OF LEFT LEG W [facility] 07/18/2019 LOIS GR MD, Ot L97.122 NON-PRESSURE CHRONIC ULCER OF LEFT THIGH 07/18/2019 LOIS GR MD, Ot T65.222A TOXIC EFFECT OF TOBACCO CIGARETTES, SELF 07/18/2019 OTTO MILLER MD Ot S69.91XA UNSP INJURY OF RIGHT WRIST, HAND AND FIN 07/18/2019 MANUEL BASS MD, Ot Z51. 81 ENCOUNTER FOR THERAPEUTIC DRUG LEVEL MON 07/18/2019 MANUEL BASS MD, Ot Z79. 01 GAS PUMPER (CURRENT) USE OF ANTICOAGULANT 07/18/2019 MANUEL BASS MD, Ot Z95. 2 PRESENCE OF PROSTHETIC HEART VALVE 07/18/2019 ANSON QUINTANILLA Ot E78.2 MIXED HYPERLIPIDEMIA 07/18/2019 ANSON QUINTANILLA Ot I08.3 COMB RHEUMATIC DISORD OF [place], AORTIC 07/18/2019 ANSON QUINTANILLA Ot I10 ESSENTIAL (PRIMARY) HYPERTENSION 07/18/2019 ANSON QUINTNAILLA Ot I25.10 ATHSCL HEART DISEASE OF [place] CORONARY 07/18/2019 ANSON QUINTANILLA Ot I65.29 OCCLUSION AND STENOSIS OF UNSPECIFIED [place] 07/18/2019 ANSON QUINTANILLA Ot Z95.2 PRESENCE OF PROSTHETIC HEART VALVE 07/18/2019 MANUEL BASS MD Ot Z51. 81 ENCOUNTER FOR THERAPEUTIC DRUG LEVEL MON 07/18/2019 MANUEL BASS MD Ot Z79. 01 SHELTER (CURRENT) USE OF ANTICOAGULANT 07/18/2019 MANUEL BASS MD, Ot Z95. 2 PRESENCE OF PROSTHETIC HEART VALVE 07/18/2019 MARINA ALMANZA APRN Ot M25.532 PAIN IN LEFT WRIST 07/18/2019 MARINA ALMANZA APRN Ot M79.642 PAIN IN LEFT HAND 07/18/2019 MARINA ALMANZA APRN Ot W19.XXXA UNSPECIFIED FALL, INITIAL ENCOUNTER 07/18/2019 MANUEL BASS MD Ot V58. 61 ANTICOAGULANTS,LT,CURRENT USE 07/18/2019 MANUEL BASS MD, Ot V58. 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 07/18/2019 MIKY CAVAZOS MEDICARE INTERVIEWER Ot 443.9 PERIPH VASCULAR DIS NOS 07/18/2019 MIKY CAVAZOS MEDICARE INTERVIEWER Ot 729.5 PAIN IN LIMB 07/18/2019 OTTO MILLER MD Ot L03.032 CELLULITIS OF LEFT TOE 07/18/2019 MARINA ALMANZA APRN Ot E78.5 HYPERLIPIDEMIA, UNSPECIFIED 07/18/2019 MARINA ALMANZA APRN Ot I1 0 ESSENTIAL (PRIMARY) HYPERTENSION 07/18/2019 MARINA ALMANZA APRN Ot I25.10 ATHSCL HEART DISEASE OF [place] CORONARY 07/18/2019 MARINA ALMANZA APRN Ot I65.23 OCCLUSION AND STENOSIS OF BILATERAL [place] 07/18/2019 MARINA ALMANZA APRN Ot L03.032 CELLULITIS OF LEFT TOE 07/18/2019 MANUEL BASS MD Ot E78. 2 MIXED HYPERLIPIDEMIA 07/18/2019 MARINA ALMANZA APRN Ot L03.116 CELLULITIS OF LEFT LOWER LIMB 07/18/2019 MARINA ALMANZA APRN Ot R93.7 ABNORMAL FINDINGS ON DIAGNOSTIC IMAGING 07/18/2019 MARINA ALMANZA APRN Ot Z51.81 ENCOUNTER FOR THERAPEUTIC DRUG LEVEL MON 07/18/2019 MARINA ALMANZA APRN Ot Z79.01 SHELTER (CURRENT) USE OF ANTICOAGULANT 07/18/2019 MANUEL BASS MD Ot E78. 5 HYPERLIPIDEMIA, UNSPECIFIED 07/18/2019 MANUEL BASS MD Ot I10 ESSENTIAL (PRIMARY) HYPERTENSION 07/18/2019 MANUEL BASS MD, Ot I25. 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 07/18/2019 LOIS GR MD Ot I87.323 CHRONIC VENOUS HTN W INFLAMMATION OF [place] 07/18/2019 LOIS GR MD, Ot L97.523 NON-PRS CHRONIC ULCER OTH PRT LEFT FOOT 07/18/2019 OTTO MILLER MD, Ot Z51.81 ENCOUNTER FOR THERAPEUTIC DRUG LEVEL MON 07/18/2019 OTTO MILLER MD Ot Z79.01 SHELTER (CURRENT) USE OF ANTICOAGULANT 07/18/2019 OTTO MILLER MD Ot Z51.81 ENCOUNTER FOR THERAPEUTIC DRUG LEVEL MON 07/18/2019 OTTO MILLER MD Ot Z79.01 GAS PUMPER (CURRENT) USE OF ANTICOAGULANT 07/18/2019 OTTO MILLER MD Ot Z95.2 PRESENCE OF PROSTHETIC HEART VALVE 07/18/2019 LOIS GR MD, Ot 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 07/18/2019 LOIS GR MD, Ot L97.123 NON-PRS CHRONIC ULCER OF LEFT THIGH W NE 07/18/2019 LOIS GR MD Ot R54 AGE-RELATED PHYSICAL DEBILITY 07/18/2019 LOIS GR MD, Ot T86.821 SKIN GRAFT (ALLOGRAFT) (AUTOGRAFT) FAILU 07/18/2019 MANUEL BASS MD, Ot Z79. 01 SHELTER (CURRENT) USE OF ANTICOAGULANT 07/18/2019 MANUEL BASS MD, Ot Z95. 2 PRESENCE OF PROSTHETIC HEART VALVE 07/18/2019 MANUEL BASS MD, Ot Z51. 81 ENCOUNTER FOR THERAPEUTIC DRUG LEVEL MON 07/18/2019 MANUEL BASS MD, Ot Z79. 01 SHELTER (CURRENT) USE OF ANTICOAGULANT 07/18/2019 MANUEL BASS MD, Ot Z51. 81 ENCOUNTER FOR THERAPEUTIC DRUG LEVEL MON 07/18/2019 MANUEL BASS MD, Ot Z79. 01 GAS PUMPER (CURRENT) USE OF ANTICOAGULANT 07/18/2019 LOIS GR MD, Ot I70.241 ATHSCL [place] ARTERIES OF LEFT LEG W [facility] 07/18/2019 LOIS GR MD, Ot L97.122 NON-PRESSURE CHRONIC ULCER OF LEFT THIGH 07/18/2019 LOIS GR MD, Ot T86.821 SKIN GRAFT (ALLOGRAFT) (AUTOGRAFT) FAILU 07/18/2019 LOIS GR MD, Ot T87.81 DEHISCENCE OF AMPUTATION STUMP 07/18/2019 MANUEL BASS MD, Ot Z51. 81 ENCOUNTER FOR THERAPEUTIC DRUG LEVEL MON 07/18/2019 MANUEL BASS MD, Ot Z79. 01 SHELTER (CURRENT) USE OF ANTICOAGULANT 07/18/2019 LOIS GR MD Ot I70 .1 ATHEROSCLEROSIS OF RENAL ARTERY 07/18/2019 LOIS GR MD, Ot I70.203 UNSP ATHSCL [place] ARTERIES OF EXTREMITI 07/18/2019 LOIS GR MD Ot I77 .1 STRICTURE OF ARTERY 07/18/2019 LOIS GR MD, Ot L97.123 NON-PRS CHRONIC ULCER OF LEFT THIGH W NE 07/18/2019 LOIS GR MD, Ot T87.81 DEHISCENCE OF AMPUTATION STUMP 07/18/2019 LOIS GR MD, Ot I70.241 ATHSCL [place] ARTERIES OF LEFT LEG W UL 07/18/2019 LOIS GR MD, Ot L97.123 NON-PRS CHRONIC ULCER OF LEFT THIGH W NE 07/18/2019 LOIS GR MD, Ot T87.81 DEHISCENCE OF AMPUTATION STUMP 07/18/2019 MANUEL BASS MD, Ot Z51. 81 ENCOUNTER FOR THERAPEUTIC DRUG LEVEL MON 07/18/2019 MANUEL BASS MD, Ot Z79. 01 SHELTER (CURRENT) USE OF ANTICOAGULANT 07/18/2019 LAURA APARICIO MD Ot I73 .9 PERIPHERAL VASCULAR DISEASE, UNSPECIFIED 07/18/2019 MANUEL BASS MD, Ot Z51. 81 ENCOUNTER FOR THERAPEUTIC DRUG LEVEL MON 07/18/2019 MANUEL BASS MD, Ot Z79. 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 [facility] 07/18/2019 LOIS GR MD, Ot L97.123 NON-PRS CHRONIC ULCER OF LEFT THIGH W MO 07/18/2019 LOIS GR MD, Ot T87.81 DEHISCENCE OF AMPUTATION STUMP 07/18/2019 LOIS GR MD, Ot I70.241 ATHSCL [place] ARTERIES OF LEFT LEG W [facility] 07/18/2019 LOIS GR MD, Ot L97.122 NON-PRESSURE CHRONIC ULCER OF LEFT THIGH 07/18/2019 LOIS GR MD, Ot T87.81 DEHISCENCE OF AMPUTATION STUMP 07/18/2019 ANSON QUINTANILLA Ot E78.2 MIXED HYPERLIPIDEMIA 07/18/2019 ANSON QUINTANILLA Ot I25.10 ATHSCL HEART DISEASE OF [place] CORONARY 07/18/2019 ANSON QUINTANILLA Ot I65.23 OCCLUSION AND STENOSIS OF BILATERAL [place] 07/18/2019 ANSON QUINTANILLA Ot I73.9 PERIPHERAL VASCULAR DISEASE, UNSPECIFIED 07/18/2019 OTTO MILLER MD Ot L97.122 NON-PRESSURE CHRONIC ULCER OF LEFT THIGH 07/18/2019 OTTO MILLER MD Ot M62.838 OTHER MUSCLE SPASM 07/18/2019 LOIS GR MD, Ot I70.241 ATHSCL [place] ARTERIES OF LEFT LEG W [facility] 07/18/2019 LOIS GR MD, Ot L97.121 NON-PRS CHRONIC ULCER OF LEFT THIGH LIMI 07/18/2019 LOIS GR MD, Ot L97.122 NON-PRESSURE CHRONIC ULCER OF LEFT THIGH 07/18/2019 LOIS GR MD, Ot T87.81 DEHISCENCE OF AMPUTATION STUMP 07/18/2019 LOIS GR MD Ot I50.21 ACUTE SYSTOLIC (CONGESTIVE) HEART FAILUR 07/18/2019 LOIS GR MD, Ot I70.241 ATHSCL [place] ARTERIES OF LEFT LEG W [facility] 07/18/2019 LOIS GR MD, Ot L97.121 NON-PRS CHRONIC ULCER OF LEFT THIGH LIMI 07/18/2019 LOIS GR MD, Ot L97.122 NON-PRESSURE CHRONIC ULCER OF LEFT THIGH 07/18/2019 LOIS GR MD, Ot N18 .4 CHRONIC KIDNEY DISEASE, STAGE 4 (SEVERE) 07/18/2019 LOIS GR MD, Ot T87.81 DEHISCENCE OF AMPUTATION STUMP 07/18/2019 LOIS GR MD, Ot I70.241 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 OF LEFT LEG W [facility] 07/18/2019 LOIS GR MD, Ot L97.121 NON-PRS CHRONIC ULCER OF LEFT THIGH LIMI 07/18/2019 LOIS GR MD, Ot L97.122 NON-PRESSURE CHRONIC ULCER OF LEFT THIGH 07/18/2019 LOIS GR MD, Ot T87.81 DEHISCENCE OF AMPUTATION STUMP 07/18/2019 MEL WOOD APRN Ot I70.241 ATHSCL [place] ARTERIES OF LEFT LEG W [facility] 07/18/2019 MEL WOOD APRN Ot L97.121 NON-PRS CHRONIC ULCER OF LEFT THIGH LIMI 07/18/2019 MEL WOOD APRN Ot L97.122 NON-PRESSURE CHRONIC ULCER OF LEFT THIGH 07/18/2019 MEL WOOD APRN Ot T87.81 DEHISCENCE OF AMPUTATION STUMP 07/18/2019 LOIS GR MD Ot I70.241 ATHSCL [place] ARTERIES OF LEFT LEG W [facility] 07/18/2019 LOIS GR MD, Ot L97.121 NON-PRS CHRONIC ULCER OF LEFT THIGH LIMI 07/18/2019 LOIS GR MD, Ot L97.122 NON-PRESSURE CHRONIC ULCER OF LEFT THIGH 07/18/2019 LOIS GR MD, Ot T87.81 DEHISCENCE OF AMPUTATION STUMP 07/18/2019 LOIS GR MD Ot L97.122 NON-PRESSURE CHRONIC ULCER OF LEFT THIGH 07/18/2019 ANGELA FERRARI, OTTO Mcdonough Ot I11.0 HYPERTENSIVE HEART DISEASE WITH HEART FA 07/18/2019 OTTO MILLER MD Ot I50.9 HEART FAILURE, UNSPECIFIED 07/18/2019 LOIS GR MD, Ot 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 81 DEHISCENCE OF AMPUTATION STUMP 07/18/2019 MANUEL BASS MD, Ot Z79. 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 81 ENCOUNTER FOR THERAPEUTIC DRUG LEVEL [facility] 07/18/2019 MANUEL BASS MD, Ot Z79. 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 81 ENCOUNTER FOR THERAPEUTIC DRUG LEVEL MON 07/18/2019 MANUEL BASS MD Ot Z79. 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 81 ENCOUNTER FOR THERAPEUTIC DRUG LEVEL MON 07/18/2019 MANUEL BASS MD, Ot Z79. 01 SHELTER (CURRENT) USE OF ANTICOAGULANT 07/18/2019 MANUEL BASS MD Ot Z95. 2 PRESENCE OF PROSTHETIC HEART VALVE 07/18/2019 MARINA ALMANZA MEDICARE INTERVIEWER Ot M25.532 PAIN IN LEFT WRIST 07/18/2019 MARINA ALMANZA MEDICARE INTERVIEWER Ot M79.642 PAIN IN LEFT HAND 07/18/2019 MARINA ALMANZA MEDICARE INTERVIEWER Ot W19.XXXA UNSPECIFIED FALL, INITIAL ENCOUNTER 07/18/2019 MANUEL BASS MD Ot V58. 61 ANTICOAGULANTS,LT,CURRENT USE 07/18/2019 MANUEL BASS MD Ot V58. 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 07/18/2019 MIKY CAVAZOS MEDICARE INTERVIEWER Ot 443.9 PERIPH VASCULAR DIS NOS 07/18/2019 MIKY CAVAZOS MEDICARE INTERVIEWER Ot 729.5 PAIN IN LIMB 07/18/2019 OTTO MILLER MD Ot L03.032 CELLULITIS OF LEFT TOE 07/18/2019 MARINA ALMANZA APRN Ot E78.5 HYPERLIPIDEMIA, UNSPECIFIED 07/18/2019 MARINA ALMANZA APRN Ot I1 0 ESSENTIAL (PRIMARY) HYPERTENSION 07/18/2019 MARINA ALMANZA APRN Ot I25.10 ATHSCL HEART DISEASE OF [place] CORONARY 07/18/2019 MARINA ALMANZA APRN Ot I65.23 OCCLUSION AND STENOSIS OF BILATERAL [place] 07/18/2019 MARINA ALMANZA APRN Ot L03.032 CELLULITIS OF LEFT TOE 07/18/2019 MANUEL BASS MD Ot E78. 2 MIXED HYPERLIPIDEMIA 07/18/2019 MARINA ALMANZA APRN Ot L03.116 CELLULITIS OF LEFT LOWER LIMB 07/18/2019 MARINA ALMANZA APRN Ot R93.7 ABNORMAL FINDINGS ON DIAGNOSTIC IMAGING 07/18/2019 MARINA ALMANZA APRN Ot Z51.81 ENCOUNTER FOR THERAPEUTIC DRUG LEVEL MON 07/18/2019 MARINA ALMANZA APRN Ot Z79.01 SHELTER (CURRENT) USE OF ANTICOAGULANT 07/18/2019 MANUEL BASS MD Ot E78. 5 HYPERLIPIDEMIA, UNSPECIFIED 07/18/2019 MANUEL BASS MD Ot I10 ESSENTIAL (PRIMARY) HYPERTENSION 07/18/2019 MANUEL BASS MD Ot I25. 10 ATHSCL HEART DISEASE OF [place] CORONARY 07/18/2019 MARINA ALMANZA APRN Ot Z51.81 ENCOUNTER FOR THERAPEUTIC DRUG LEVEL MON 07/18/2019 MARINA ALMANZA APRN Ot Z79.01 GAS PUMPER (CURRENT) USE OF ANTICOAGULANT 07/18/2019 LOIS GR MD Ot 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 07/18/2019 LOIS GR MD Ot I87.323 CHRONIC VENOUS HTN W INFLAMMATION OF [place] 07/18/2019 LOIS GR MD, Ot L97.523 NON-PRS CHRONIC ULCER OTH PRT LEFT FOOT 07/18/2019 OTTO MILLER MD, Ot Z51.81 ENCOUNTER FOR THERAPEUTIC DRUG LEVEL MON 07/18/2019 OTTO MILLER MD, Ot Z79.01 SHELTER (CURRENT) USE OF ANTICOAGULANT 07/18/2019 OTTO MILLER MD, Ot Z51.81 ENCOUNTER FOR THERAPEUTIC DRUG LEVEL MON 07/18/2019 OTTO MILLER MD, Ot Z79.01 GAS PUMPER (CURRENT) USE OF ANTICOAGULANT 07/18/2019 OTTO MILLER MD, Ot Z95.2 PRESENCE OF PROSTHETIC HEART VALVE 07/18/2019 LOIS GR MD, Ot 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 07/18/2019 LOIS GR MD, Ot L97.123 NON-PRS CHRONIC ULCER OF LEFT THIGH W NE 07/18/2019 LOIS GR MD, Ot R54 AGE-RELATED PHYSICAL DEBILITY 07/18/2019 LOIS GR MD, Ot T86.821 SKIN GRAFT (ALLOGRAFT) (AUTOGRAFT) FAILU 07/18/2019 MANUEL BASS MD, Ot Z79. 01 GAS PUMPER (CURRENT) USE OF ANTICOAGULANT 07/18/2019 MANUEL BASS MD, Ot Z95. 2 PRESENCE OF PROSTHETIC HEART VALVE 07/18/2019 MANUEL BASS MD, Ot Z51. 81 ENCOUNTER FOR THERAPEUTIC DRUG LEVEL MON 07/18/2019 MANUEL BASS MD, Ot Z79. 01 GAS PUMPER (CURRENT) USE OF ANTICOAGULANT 07/18/2019 MANUEL BASS MD, Ot Z51. 81 ENCOUNTER FOR THERAPEUTIC DRUG LEVEL MON 07/18/2019 MANUEL BASS MD, Ot Z79. 01 SHELTER (CURRENT) USE OF ANTICOAGULANT 07/18/2019 LOIS GR MD, Ot 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 07/18/2019 LOIS GR MD, Ot L97.122 NON-PRESSURE CHRONIC ULCER OF LEFT THIGH 07/18/2019 LOIS GR MD, Ot T86.821 SKIN GRAFT (ALLOGRAFT) (AUTOGRAFT) FAILU 07/18/2019 LOIS GR MD, Ot T87.81 DEHISCENCE OF AMPUTATION STUMP 07/18/2019 MANUEL BASS MD, Ot Z51. 81 ENCOUNTER FOR THERAPEUTIC DRUG LEVEL MON 07/18/2019 MANUEL BASS MD, Ot Z79. 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 81 ENCOUNTER FOR THERAPEUTIC DRUG LEVEL MON 07/18/2019 MANUEL BASS MD, Ot Z79. 01 SHELTER (CURRENT) USE OF ANTICOAGULANT 07/18/2019 LAURA APARICIO MD Ot I73 .9 PERIPHERAL VASCULAR DISEASE, UNSPECIFIED 07/18/2019 MANUEL BASS MD, Ot Z51. 81 ENCOUNTER FOR THERAPEUTIC DRUG LEVEL MON 07/18/2019 MANUEL BASS MD, Ot Z79. 01 GAS PUMPER (CURRENT) USE OF ANTICOAGULANT 07/18/2019 LOIS GR MD Ot L97.122 NON-PRESSURE CHRONIC ULCER OF LEFT THIGH 07/18/2019 LOIS GR MD Ot I70.241 ATHSCL [place] ARTERIES OF LEFT LEG W [facility] 07/18/2019 LOIS GR MD Ot L97.123 NON-PRS CHRONIC ULCER OF LEFT THIGH W NE 07/18/2019 LOIS GR MD, Ot T87.81 DEHISCENCE OF AMPUTATION STUMP 07/18/2019 LOIS GR MD Ot I70.241 ATHSCL [place] ARTERIES OF LEFT LEG W [facility] 07/18/2019 LOIS GR MD Ot L97.122 NON-PRESSURE CHRONIC ULCER OF LEFT THIGH 07/18/2019 LOIS GR MD Ot T87.81 DEHISCENCE OF AMPUTATION STUMP 07/18/2019 ANSON QUINTANILLA Ot E78.2 MIXED HYPERLIPIDEMIA 07/18/2019 ANSON QUINTANILLA Ot I25.10 ATHSCL HEART DISEASE OF [place] CORONARY 07/18/2019 ANSON QUINTANILLA Ot I65.23 OCCLUSION AND STENOSIS OF BILATERAL [place] 07/18/2019 ANSON QUITNANILLA Ot I73.9 PERIPHERAL VASCULAR DISEASE, UNSPECIFIED 07/18/2019 OTTO MILLER MD, Ot L97.122 NON-PRESSURE CHRONIC ULCER OF LEFT THIGH 07/18/2019 OTTO MILLER MD, Ot M62.838 OTHER MUSCLE SPASM 07/18/2019 LOIS GR MD, Ot I70.241 ATHSCL [place] ARTERIES OF LEFT LEG W [facility] 07/18/2019 LOIS GR MD, Ot L97.121 NON-PRS CHRONIC ULCER OF LEFT THIGH LIMI 07/18/2019 LOIS GR MD, Ot L97.122 NON-PRESSURE CHRONIC ULCER OF LEFT THIGH 07/18/2019 LOIS GR MD, Ot T87.81 DEHISCENCE OF AMPUTATION STUMP 07/18/2019 LOIS GR MD, Ot I50.21 ACUTE SYSTOLIC (CONGESTIVE) HEART FAILUR 07/18/2019 LOIS GR MD, Ot I70.241 ATHSCL [place] ARTERIES OF LEFT LEG W [facility] 07/18/2019 LOIS GR MD, Ot L97.121 NON-PRS CHRONIC ULCER OF LEFT THIGH LIMI 07/18/2019 LOIS GR MD, Ot L97.122 NON-PRESSURE CHRONIC ULCER OF LEFT THIGH 07/18/2019 LOIS GR MD, Ot N18 .4 CHRONIC KIDNEY DISEASE, STAGE 4 (SEVERE) 07/18/2019 LOIS GR MD, Ot T87.81 DEHISCENCE OF AMPUTATION STUMP 07/18/2019 LOIS GR MD, Ot I70.241 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 LEFT LEG W [facility] 07/18/2019 LOIS GR MD, Ot L97.121 NON-PRS CHRONIC ULCER OF LEFT THIGH LIMI 07/18/2019 LOIS GR MD, Ot L97.122 NON-PRESSURE CHRONIC ULCER OF LEFT THIGH 07/18/2019 LOIS GR MD, Ot T87.81 DEHISCENCE OF AMPUTATION STUMP 07/18/2019 MEL WOOD APRN Ot I70.241 ATHSCL [place] ARTERIES OF LEFT LEG W [facility] 07/18/2019 MEL WOOD APRN Ot L97.121 NON-PRS CHRONIC ULCER OF LEFT THIGH LIMI 07/18/2019 MEL WOOD APRN Ot L97.122 NON-PRESSURE CHRONIC ULCER OF LEFT THIGH 07/18/2019 MEL WOOD APRN Ot T87.81 DEHISCENCE OF AMPUTATION STUMP 07/18/2019 LOIS GR MD, Ot I70.241 ATHSCL [place] ARTERIES OF LEFT LEG W [facility] 07/18/2019 LOIS GR MD, Ot L97.121 NON-PRS CHRONIC ULCER OF LEFT THIGH LIMI 07/18/2019 LOIS GR MD, Ot L97.122 NON-PRESSURE CHRONIC ULCER OF LEFT THIGH 07/18/2019 LOIS GR MD, Ot T87.81 DEHISCENCE OF AMPUTATION STUMP 07/18/2019 LOIS GR MD, Ot L97.122 NON-PRESSURE CHRONIC ULCER OF LEFT THIGH 07/18/2019 OTTO MILLER MD Ot I11.0 HYPERTENSIVE HEART DISEASE WITH HEART FA 07/18/2019 OTTO MILLER MD Ot I50.9 HEART FAILURE, UNSPECIFIED 07/18/2019 LOIS GR MD, Ot 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 81 DEHISCENCE OF AMPUTATION STUMP 07/18/2019 MANUEL BASS MD, Ot Z79. 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 81 ENCOUNTER FOR THERAPEUTIC DRUG LEVEL MON 07/18/2019 MANUEL BASS MD, Ot Z79. 01 SHELTER (CURRENT) USE OF ANTICOAGULANT 07/18/2019 MANUEL BASS MD, Ot Z95. 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 81 ENCOUNTER FOR THERAPEUTIC DRUG LEVEL MON 07/18/2019 MANUEL BASS MD, Ot Z79. 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 81 ENCOUNTER FOR THERAPEUTIC DRUG LEVEL MON 07/18/2019 MANUEL BASS MD, Ot Z79. 01 GAS PUMPER (CURRENT) USE OF ANTICOAGULANT 07/18/2019 MANUEL BASS MD Ot Z95. 2 PRESENCE OF PROSTHETIC HEART VALVE 07/18/2019 MARINA ALMANZA MEDICARE INTERVIEWER Ot M25.532 PAIN IN LEFT WRIST 07/18/2019 CAMI MARINA Norris MEDICARE INTERVIEWER Ot M79.642 PAIN IN LEFT HAND 07/18/2019 MARINA ALMANZA MEDICARE INTERVIEWER Ot W19.XXXA UNSPECIFIED FALL, INITIAL ENCOUNTER 07/19/2019 MANUEL BASS MD Ot E78. 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 10 ATHSCL HEART DISEASE OF [place] CORONARY 07/19/2019 MANUEL BASS MD Ot Z91. 19 PATIENT'S NONCOMPLIANCE W [facility] 07/19/2019 MANUEL BASS MD Ot E78. 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 10 ATHSCL HEART DISEASE OF [place] CORONARY 07/19/2019 MANUEL BASS MD Ot Z91. 19 PATIENT'S NONCOMPLIANCE W [facility] 07/20/2019 MANUEL BASS MD Ot E78. 2 MIXED HYPERLIPIDEMIA 07/20/2019 MANUEL BASS MD Ot I10 ESSENTIAL (PRIMARY) HYPERTENSION 07/20/2019 MANUEL BASS MD Ot I25. 10 ATHSCL HEART DISEASE OF [place] CORONARY 07/20/2019 MANUEL BASS MD Ot I51. 0 CARDIAC SEPTAL DEFECT, ACQUIRED 07/20/2019 MANUEL BASS MD Ot I51. 89 OTHER ILL-DEFINED HEART DISEASES 07/20/2019 MANUEL BASS MD Ot Z91. 19 PATIENT'S NONCOMPLIANCE W [facility] 08/03/2019 MANUEL BASS MD Ot E78. 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 10 ATHSCL HEART DISEASE OF [place] CORONARY 08/03/2019 MANUEL BASS MD, Ot Z91. 19 PATIENT'S NONCOMPLIANCE W [facility] Procedures Code Description Performed By Per formed On 88.48 08/27/2010 88.49 08/27/2010 88.56 08/27/2010 00.43 08/29/2010 39.50 08/29/2010 38.91 FLORA RIAL CATHETERIZATION 04/10/2014 88.42 CONT RAST AORTOGRAM 04/10/2014 88.48 CONT RAST ARTERIOGRAM-LEG 04/10/[address]/INFUSE THROMBOLYTIC AGENT 04/10/2014 39.50 JIM OPLASTY OF OTHER NON- CORONARY VESSEL 04/11/2014 88.48 CONT RAST ARTERIOGRAM-LEG 04/11/2014 00.41 PROC EDURE ON TWO VESSELS 04/12/2014 17.56 ATHE RECTOMY OF OTHER NON- CORONARY VESSEL 04/12/2014 39.50 JIM OPLASTY OF OTHER NON- CORONARY VESSEL 04/12/2014 37.22 LEFT HEART CARDIAC CATH 04/19/2014 88.56 LICO STAN ARTERIOGR-2 CATH 04/19/2014 88.57 LICO NARY ARTERIOGRAM NEC 04/19/[id number] WING OF L UP ARM SUBCU/FASCIA, OPEN 12/25/2015 Results Test Result Range PT panel in platelet poor plasma by coag ulation assay - 10/08/15 14:30 Prothrombin time (PT) in platelet poor plasma by coagu lation assay 15.1 s 12.2-14.7 INR in platelet poor plasma or blood by coagulation as say 1.2 0.8-1.4 PT panel in platelet poor plasma by coag ulation assay - 10/23/15 10:01 Prothrombin time (PT) in platelet poor plasma by coagu lation assay 13.7 s 12.2-14.7 INR in platelet poor plasma or blood by coagulation as say 1.1 0.8-1.4 PT panel in platelet poor plasma by coag ulation assay - 10/26/15 15:15 Prothrombin time (PT) in platelet poor plasma by coagu lation assay 13.5 s 12.2-14.7 INR in platelet poor plasma or blood by coagulation as say 1.1 0.8-1.4 PT panel in platelet poor plasma by coag ulation assay - 10/29/15 13:49 Prothrombin time (PT) in platelet poor plasma by coagu lation assay 18.3 s 12.2-14.7 INR in platelet poor plasma or blood by coagulation as say 1.6 0.8-1.4 PT panel in platelet poor plasma by coag ulation assay - 11/19/15 11:20 Prothrombin time (PT) in platelet poor plasma by coagu lation assay 48.8 s 12.2-14.7 INR in platelet poor plasma or blood by coagulation as say 5.3 0.8-1.4 PT panel in platelet poor plasma by coag ulation assay - 11/23/15 14:46 Prothrombin time (PT) in platelet poor plasma by coagu lation assay 17.2 s 12.2-14.7 INR in platelet poor plasma or blood by coagulation as say 1.4 0.8-1.4 PT panel in platelet poor plasma by coag ulation assay - 12/03/15 12:43 Prothrombin time (PT) in platelet poor plasma by coagu lation assay 13.0 s 12.2-14.7 INR in platelet poor plasma or blood by coagulation as say 1.0 0.8-1.4 PT panel in platelet poor plasma by coag ulation assay - 12/07/15 12:56 Prothrombin time (PT) in platelet poor plasma by coagu lation assay 13.2 s 12.2-14.7 INR in platelet poor plasma or blood by coagulation as say 1.0 0.8-1.4 Bacteria identification in isolate by an aerobe culture - 12/17/15 15:30 Bacteria identification in isolate by anaerobe culture NOANA [facility] Gram stain microscopy - 12/17/15 15:30 Bacteria identification in wound by cult ure - 12/17/15 15:30 Bacteria identification in wound by culture [id number] [facility] FREE [place] [address], 1 0--16 NR QUANTITY OF GROWTH Scant Growth NR MRSA AGAR Screening test for MRSA is N EGATIVE (Final to follow) NR Bacterial susceptibility panel - 6 15:30 Gentamicin susceptibility test by minimum inhibitory c oncentration <= NRG Trimethoprim/sulfamethoxazole susceptibi lity test by minimum inhibitoryconcentration <= NRG Tobramycin susceptibility test by minimum inhibitory c oncentration <= NRG Cefazolin susceptibility test by minimum inhibitory co ncentration >= NRG Piperacillin/tazobactam susceptibility t est by minimum inhibitory concentration <= NRG Ciprofloxacin susceptibility test by minimum inhibitor y concentration <= NRG Meropenem susceptibility test by minimum inhibitory co ncentration <= NRG Aztreonam susceptibility test by minimum inhibitory co ncentration <= NRG Cefepime susceptibility test by minimum inhibitory con centration <= NRG Bacterial susceptibility panel - 6 15:30 Oxacillin susceptibility test by minimum inhibitory co ncentration 0.5 NRG Gentamicin susceptibility test by minimum inhibitory c oncentration <= NRG Clindamycin susceptibility test by minimum inhibitory concentration <= NRG Erythromycin susceptibility test by minimum inhibitory concentration <= NRG Trimethoprim/sulfamethoxazole susceptibi lity test by minimum inhibitoryconcentration <= NRG Vancomycin susceptibility test by minimum inhibitory c oncentration 1 NRG Levofloxacin susceptibility test by minimum inhibitory concentration <= NRG Rifampin susceptibility test by minimum inhibitory con centration <= NRG Tetracycline susceptibility test by minimum inhibitory concentration <= NRG Bacterial susceptibility panel - 6 15:30 Gentamicin susceptibility test by minimum inhibitory c oncentration S NRG Erythromycin susceptibility test by minimum inhibitory concentration 2 NRG Vancomycin susceptibility test by minimum inhibitory c oncentration R NRG Ampicillin susceptibility test by minimum inhibitory c oncentration <= NRG PT panel in platelet poor plasma by coag ulation assay - 12/17/15 15:48 Prothrombin time (PT) in platelet poor plasma by coagu lation assay 23.7 s 12.2-14.7 INR in platelet poor plasma or blood by coagulation as say 2.1 0.8-1.4 Complete blood count (CBC) with automate d white blood cell (WBC) differential - 12/25/15 16:15 Blood leukocytes automated count (number/volume) 10.0 10*3/uL 4.3-11.0 Blood erythrocytes automated count (number/volume) 3.84 10*6/uL 4.35-5.85 Venous blood hemoglobin measurement (mass/volume) 11.4 g/dL 13.3-17.7 Blood hematocrit (volume fraction) 34 % 40-54 Automated erythrocyte mean corpuscular volume 87 [ foz_us] 80-99 Automated erythrocyte mean corpuscular h emoglobin (mass per erythrocyte) 30 pg 25-34 Automated erythrocyte mean corpuscular h emoglobin concentration measurement (mass/volume) 34 g/dL 32-36 Automated erythrocyte distribution width ratio 12. 4 % 10.0- 14.5 Automated blood platelet count (count/volume) 143 10*3/uL 130-400 Automated blood platelet mean volume measurement 10.7 [foz_us] 7.4-10.4 Automated blood neutrophils/100 leukocytes 82 % 42-75 Automated blood lymphocytes/100 leukocytes 9 % 12-44 Blood monocytes/100 leukocytes 5 % 0-12 Automated blood eosinophils/100 leukocytes 3 % 0-10 Automated blood basophils/100 leukocytes 0 % 0-10 Blood neutrophils automated count (number/volume) 7.4 10*3 1.8-7.8 Blood lymphocytes automated count (number/volume) 0.9 10*3 1.0-4.0 Blood monocytes automated count (number/volume) 0. 5 10*3 0.0-1.0 Automated eosinophil count 0.3 10*3/uL 0 .0-0.3 Automated blood basophil count (count/volume) 0.0 10*3/uL 0.0-0.1 Blood lactic acid measurement (moles/vol ume) - 12/25/15 16:15 Blood lactic acid measurement (moles/volume) 1.0 m mol/L 0.5- 2.0 PT panel in platelet poor plasma by coag ulation assay - 12/25/15 16:15 Prothrombin time (PT) in platelet poor plasma by coagu lation assay 31.5 s 12.2-14.7 INR in platelet poor plasma or blood by coagulation as say 3.1 0.8-1.4 Comprehensive metabolic panel - 12/25/15 16:15 Serum or plasma sodium measurement (moles/volume) 135 mmol/L 135-145 Serum or plasma potassium measurement (moles/volume) 4.2 mmol/L 3.6-5.0 Serum or plasma chloride measurement (moles/volume) 101 mmol/L 98-107 Carbon dioxide 25 mmol/L 21-32 Serum or plasma anion gap determination (moles/volume) 9 mmol/L 5-14 Serum or plasma urea nitrogen measurement (mass/volume ) 13 mg/dL 7-18 Serum or plasma creatinine measurement (mass/volume) 0.84 mg/dL 0.60-1.30 Serum or plasma urea nitrogen/creatinine mass ratio 15 NRG Serum or plasma creatinine measurement w ith calculation of estimated glomerular filtration rate > NRG Serum or plasma glucose measurement (mass/volume) 102 mg/dL 70-105 Serum or plasma calcium measurement (mass/volume) 8.8 mg/dL 8.5-10.1 Serum or plasma total bilirubin measurement (mass/volu me) 0.4 mg/dL 0.1-1.0 Serum or plasma alkaline phosphatase obed surement (enzymatic activity/volume) 78 U/L 40-136 Serum or plasma aspartate aminotransfera se measurement (enzymatic activity/volume) 13 U/L 5-34 Serum or plasma alanine aminotransferase measurement (enzymatic activity/volume) 12 U/L 0-55 Serum or plasma protein measurement (mass/volume) 6.3 g/dL 6.4-8.2 Serum or plasma albumin measurement (mass/volume) 3.5 g/dL 3.2-4.5 Bacterial blood culture - 12/25/15 16:15 Bacterial blood culture NG NRG Bacterial blood culture - 12/25/15 16:25 Bacterial blood culture NG NRG Capillary blood glucose measurement by g lucometer (mass/volume) - 12/25/15 16:47 Capillary blood glucose measurement by glucometer (mas s/volume) 96 mg/dL 70-110 Gram stain microscopy - 12/25/15 19:25 GRAM STAIN RESULT FEW GRAM POSITIVE COCCI RESEMBLI NG STAPH NRG Bacteria identification in wound by cult ure - 12/25/15 19:25 Bacteria identification in wound by culture [id number] NRG FREE TEXT EXTERNAL SENSITIVITY REPORTED 12/25 16:5 0 NRG QUANTITY OF GROWTH Abundant Growth NRG PBP2 Screening test for MRSA is N EGATIVE. (Final to follow.) NR Bacterial susceptibility panel - 6 19:25 Oxacillin susceptibility test by minimum inhibitory co ncentration 0.5 NRG Gentamicin susceptibility test by minimum inhibitory c oncentration <= NRG Clindamycin susceptibility test by minimum inhibitory concentration <= NRG Erythromycin susceptibility test by minimum inhibitory concentration <= NRG Trimethoprim/sulfamethoxazole susceptibi lity test by minimum inhibitoryconcentration <= NRG Vancomycin susceptibility test by minimum inhibitory c oncentration <= NRG Levofloxacin susceptibility test by minimum inhibitory concentration <= NRG Rifampin susceptibility test by minimum inhibitory con centration <= NRG Tetracycline susceptibility test by minimum inhibitory concentration <= NRG Bacteria identification in isolate by an aerobe culture - 12/25/15 19:25 Bacteria identification in isolate by anaerobe culture NOANA NRG Capillary blood glucose measurement by g lucometer (mass/volume) - 12/26/15 00:30 Capillary blood glucose measurement by glucometer (mas s/volume) 111 mg/dL 70-110 Capillary blood glucose measurement by g lucometer (mass/volume) - 12/26/15 06:22 Capillary blood glucose measurement by glucometer (mas s/volume) 89 mg/dL 70-110 Capillary blood glucose measurement by g lucometer (mass/volume) - 12/26/15 09:52 Capillary blood glucose measurement by glucometer (mas s/volume) 92 mg/dL 70-110 PT panel in platelet poor plasma by coag ulation assay - 12/26/15 16:28 Prothrombin time (PT) in platelet poor plasma by coagu lation assay 37.6 s 12.2-14.7 INR in platelet poor plasma or blood by coagulation as say 3.8 0.8-1.4 Capillary blood glucose measurement by g lucometer (mass/volume) - 12/26/15 17:25 Capillary blood glucose measurement by glucometer (mas s/volume) 126 mg/dL 70-110 Automated blood complete blood count (he mogram) panel - 12/27/15 04:50 Blood leukocytes automated count (number/volume) 5.2 10*3/uL 4.3-11.0 Blood erythrocytes automated count (number/volume) 3.64 10*6/uL 4.35-5.85 Venous blood hemoglobin measurement (mass/volume) 11.1 g/dL 13.3-17.7 Blood hematocrit (volume fraction) 32 % 40-54 Automated erythrocyte mean corpuscular volume 88 [ foz_us] 80-99 Automated erythrocyte mean corpuscular h emoglobin (mass per erythrocyte) 31 pg 25-34 Automated erythrocyte mean corpuscular h emoglobin concentration measurement (mass/volume) 35 g/dL 32-36 Automated erythrocyte distribution width ratio 12. 6 % 10.0- 14.5 Automated blood platelet count (count/volume) 184 10*3/uL 130-400 Automated blood platelet mean volume measurement 10.4 [foz_us] 7.4-10.4 PT panel in platelet poor plasma by coag ulation assay - 12/27/15 04:50 Prothrombin time (PT) in platelet poor plasma by coagu lation assay 36.3 s 12.2-14.7 INR in platelet poor plasma or blood by coagulation as say 3.6 0.8-1.4 Comprehensive metabolic panel - 12/27/15 04:50 Serum or plasma sodium measurement (moles/volume) 138 mmol/L 135-145 Serum or plasma potassium measurement (moles/volume) 3.9 mmol/L 3.6-5.0 Serum or plasma chloride measurement (moles/volume) 108 mmol/L 98-107 Carbon dioxide 22 mmol/L 21-32 Serum or plasma anion gap determination (moles/volume) 8 mmol/L 5-14 Serum or plasma urea nitrogen measurement (mass/volume ) 12 mg/dL 7-18 Serum or plasma creatinine measurement (mass/volume) 0.85 mg/dL 0.60-1.30 Serum or plasma urea nitrogen/creatinine mass ratio 14 NRG Serum or plasma creatinine measurement w ith calculation of estimated glomerular filtration rate > NRG Serum or plasma glucose measurement (mass/volume) 86 mg/dL 70-105 Serum or plasma calcium measurement (mass/volume) 8.6 mg/dL 8.5-10.1 Serum or plasma total bilirubin measurement (mass/volu me) 0.2 mg/dL 0.1-1.0 Serum or plasma alkaline phosphatase obed surement (enzymatic activity/volume) 57 U/L 40-136 Serum or plasma aspartate aminotransfera se measurement (enzymatic activity/volume) 13 U/L 5-34 Serum or plasma alanine aminotransferase measurement (enzymatic activity/volume) 11 U/L 0-55 Serum or plasma protein measurement (mass/volume) 6.0 g/dL 6.4-8.2 Serum or plasma albumin measurement (mass/volume) 3.0 g/dL 3.2-4.5 Capillary blood glucose measurement by g lucometer (mass/volume) - 12/27/15 09:26 Capillary blood glucose measurement by glucometer (mas s/volume) 91 mg/dL 70-110 Capillary blood glucose measurement by g lucometer (mass/volume) - 12/27/15 14:19 Capillary blood glucose measurement by glucometer (mas s/volume) 121 mg/dL 70-110 Capillary blood glucose measurement by g lucometer (mass/volume) - 12/27/15 19:32 Capillary blood glucose measurement by glucometer (mas s/volume) 100 mg/dL 70-110 PT panel in platelet poor plasma by coag ulation assay - 12/28/15 05:00 Prothrombin time (PT) in platelet poor plasma by coagu lation assay 31.3 s 12.2-14.7 INR in platelet poor plasma or blood by coagulation as say 3.0 0.8-1.4 Capillary blood glucose measurement by g lucometer (mass/volume) - 12/28/15 05:58 Capillary blood glucose measurement by glucometer (mas s/volume) 82 mg/dL 70-110 Capillary blood glucose measurement by g lucometer (mass/volume) - 12/28/15 11:04 Capillary blood glucose measurement by glucometer (mas s/volume) 117 mg/dL 70-110 Capillary blood glucose measurement by g lucometer (mass/volume) - 12/28/15 16:06 Capillary blood glucose measurement by glucometer (mas s/volume) 125 mg/dL 70-110 Capillary blood glucose measurement by g lucometer (mass/volume) - 12/28/15 19:46 Capillary blood glucose measurement by glucometer (mas s/volume) 101 mg/dL 70-110 Capillary blood glucose measurement by g lucometer (mass/volume) - 12/29/15 05:23 Capillary blood glucose measurement by glucometer (mas s/volume) 81 mg/dL 70-110 PT panel in platelet poor plasma by coag ulation assay - 12/29/15 05:34 Prothrombin time (PT) in platelet poor plasma by coagu lation assay 24.0 s 12.2-14.7 INR in platelet poor plasma or blood by coagulation as say 2.2 0.8-1.4 Capillary blood glucose measurement by g lucometer (mass/volume) - 12/29/15 11:08 Capillary blood glucose measurement by glucometer (mas s/volume) 86 mg/dL 70-110 Capillary blood glucose measurement by g lucometer (mass/volume) - 12/29/15 17:08 Capillary blood glucose measurement by glucometer (mas s/volume) 94 mg/dL 70-110 Capillary blood glucose measurement by g lucometer (mass/volume) - 12/29/15 19:54 Capillary blood glucose measurement by glucometer (mas s/volume) 110 mg/dL 70-110 PT panel in platelet poor plasma by coag ulation assay - 12/30/15 04:40 Prothrombin time (PT) in platelet poor plasma by coagu lation assay 21.7 s 12.2-14.7 INR in platelet poor plasma or blood by coagulation as say 1.9 0.8-1.4 Capillary blood glucose measurement by g lucometer (mass/volume) - 12/30/15 06:32 Capillary blood glucose measurement by glucometer (mas s/volume) 76 mg/dL 70-110 Capillary blood glucose measurement by g lucometer (mass/volume) - 12/30/15 12:05 Capillary blood glucose measurement by glucometer (mas s/volume) 104 mg/dL 70-110 PT panel in platelet poor plasma by coag ulation assay - 01/14/16 13:47 Prothrombin time (PT) in platelet poor plasma by coagu lation assay 23.8 s 12.2-14.7 INR in platelet poor plasma or blood by coagulation as say 2.2 0.8-1.4 PT panel in platelet poor plasma by coag ulation assay - 02/18/16 16:18 Prothrombin time (PT) in platelet poor plasma by coagu lation assay 48.2 s 12.2-14.7 INR in platelet poor plasma or blood by coagulation as say 5.2 0.8-1.4 PT panel in platelet poor plasma by coag ulation assay - 02/25/16 12:50 Prothrombin time (PT) in platelet poor plasma by coagu lation assay 14.2 s 12.2-14.7 INR in platelet poor plasma or blood by coagulation as say 1.1 0.8-1.4 Complete blood count (CBC) with automate d white blood cell (WBC) differential - 03/01/16 01:46 Blood leukocytes automated count (number/volume) 9.7 10*3/uL 4.3-11.0 Blood erythrocytes automated count (number/volume) 4.02 10*6/uL 4.35-5.85 Venous blood hemoglobin measurement (mass/volume) 11.9 g/dL 13.3-17.7 Blood hematocrit (volume fraction) 35 % 40-54 Automated erythrocyte mean corpuscular volume 87 [ foz_us] 80-99 Automated erythrocyte mean corpuscular h emoglobin (mass per erythrocyte) 30 pg 25-34 Automated erythrocyte mean corpuscular h emoglobin concentration measurement (mass/volume) 34 g/dL 32-36 Automated erythrocyte distribution width ratio 14. 8 % 10.0- 14.5 Automated blood platelet count (count/volume) 234 10*3/uL 130-400 Automated blood platelet mean volume measurement 11.0 [foz_us] 7.4-10.4 Automated blood neutrophils/100 leukocytes 55 % 42-75 Automated blood lymphocytes/100 leukocytes 34 % 12-44 Blood monocytes/100 leukocytes 8 % 0-12 Automated blood eosinophils/100 leukocytes 3 % 0-10 Automated blood basophils/100 leukocytes 0 % 0-10 Blood neutrophils automated count (number/volume) 5.3 10*3 1.8-7.8 Blood lymphocytes automated count (number/volume) 3.3 10*3 1.0-4.0 Blood monocytes automated count (number/volume) 0. 8 10*3 0.0-1.0 Automated eosinophil count 0.3 10*3/uL 0 .0-0.3 Automated blood basophil count (count/volume) 0.0 10*3/uL 0.0-0.1 PT panel in platelet poor plasma by coag ulation assay - 03/01/16 01:46 Prothrombin time (PT) in platelet poor plasma by coagu lation assay 18.6 s 12.2-14.7 INR in platelet poor plasma or blood by coagulation as say 1.6 0.8-1.4 Activated partial thromboplastin time (a PTT) in platelet poor plasma bycoagulation assay - 03/01/16 01:46 Activated partial thromboplastin time (a PTT) in platelet poor plasma bycoagulation assay 30 s 24-35 Comprehensive metabolic panel - 03/01/16 01:46 Serum or plasma sodium measurement (moles/volume) 138 mmol/L 135-145 Serum or plasma potassium measurement (moles/volume) 4.1 mmol/L 3.6-5.0 Serum or plasma chloride measurement (moles/volume) 104 mmol/L 98-107 Carbon dioxide 23 mmol/L 21-32 Serum or plasma anion gap determination (moles/volume) 11 mmol/L 5-14 Serum or plasma urea nitrogen measurement (mass/volume ) 22 mg/dL 7-18 Serum or plasma creatinine measurement (mass/volume) 0.85 mg/dL 0.60-1.30 Serum or plasma urea nitrogen/creatinine mass ratio 26 NRG Serum or plasma creatinine measurement w ith calculation of estimated glomerular filtration rate > NRG Serum or plasma glucose measurement (mass/volume) 110 mg/dL 70-105 Serum or plasma calcium measurement (mass/volume) 9.5 mg/dL 8.5-10.1 Serum or plasma total bilirubin measurement (mass/volu me) 0.2 mg/dL 0.1-1.0 Serum or plasma alkaline phosphatase obed surement (enzymatic activity/volume) 88 U/L 40-136 Serum or plasma aspartate aminotransfera se measurement (enzymatic activity/volume) 15 U/L 5-34 Serum or plasma alanine aminotransferase measurement (enzymatic activity/volume) 13 U/L 0-55 Serum or plasma protein measurement (mass/volume) 6.6 g/dL 6.4-8.2 Serum or plasma albumin measurement (mass/volume) 3.8 g/dL 3.2-4.5 Magnesium - 03/01/16 01:46 Magnesium 1.1 mg/dL 1.8-2.4 Complete blood count (CBC) with automate d white blood cell (WBC) differential - 03/07/16 05:24 Blood leukocytes automated count (number/volume) 9.6 10*3/uL 4.3-11.0 Blood erythrocytes automated count (number/volume) 3.33 10*6/uL 4.35-5.85 Venous blood hemoglobin measurement (mass/volume) 9.8 g/dL 13.3-17.7 Blood hematocrit (volume fraction) 29 % 40-54 Automated erythrocyte mean corpuscular volume 86 [ foz_us] 80-99 Automated erythrocyte mean corpuscular h emoglobin (mass per erythrocyte) 29 pg 25-34 Automated erythrocyte mean corpuscular h emoglobin concentration measurement (mass/volume) 34 g/dL 32-36 Automated erythrocyte distribution width ratio 14. 3 % 10.0- 14.5 Automated blood platelet count (count/volume) 185 10*3/uL 130-400 Automated blood platelet mean volume measurement 11.6 [foz_us] 7.4-10.4 Automated blood neutrophils/100 leukocytes 64 % 42-75 Automated blood lymphocytes/100 leukocytes 23 % 12-44 Blood monocytes/100 leukocytes 11 % 0-12 Automated blood eosinophils/100 leukocytes 2 % 0-10 Automated blood basophils/100 leukocytes 0 % 0-10 Blood neutrophils automated count (number/volume) 6.1 10*3 1.8-7.8 Blood lymphocytes automated count (number/volume) 2.2 10*3 1.0-4.0 Blood monocytes automated count (number/volume) 1. 1 10*3 0.0-1.0 Automated eosinophil count 0.2 10*3/uL 0 .0-0.3 Automated blood basophil count (count/volume) 0.0 10*3/uL 0.0-0.1 PT panel in platelet poor plasma by coag ulation assay - 03/07/16 05:24 Prothrombin time (PT) in platelet poor plasma by coagu lation assay 23.1 s 12.2-14.7 INR in platelet poor plasma or blood by coagulation as say 2.1 0.8-1.4 Comprehensive metabolic panel - 03/07/16 05:24 Serum or plasma sodium measurement (moles/volume) 129 mmol/L 135-145 Serum or plasma potassium measurement (moles/volume) 4.5 mmol/L 3.6-5.0 Serum or plasma chloride measurement (moles/volume) 95 mmol/L 98-107 Carbon dioxide 25 mmol/L 21-32 Serum or plasma anion gap determination (moles/volume) 9 mmol/L 5-14 Serum or plasma urea nitrogen measurement (mass/volume ) 18 mg/dL 7-18 Serum or plasma creatinine measurement (mass/volume) 0.81 mg/dL 0.60-1.30 Serum or plasma urea nitrogen/creatinine mass ratio 22 NRG Serum or plasma creatinine measurement w ith calculation of estimated glomerular filtration rate > NRG Serum or plasma glucose measurement (mass/volume) 105 mg/dL 70-105 Serum or plasma calcium measurement (mass/volume) 8.9 mg/dL 8.5-10.1 Serum or plasma total bilirubin measurement (mass/volu me) 0.4 mg/dL 0.1-1.0 Serum or plasma alkaline phosphatase obed surement (enzymatic activity/volume) 81 U/L 40-136 Serum or plasma aspartate aminotransfera se measurement (enzymatic activity/volume) 34 U/L 5-34 Serum or plasma alanine aminotransferase measurement (enzymatic activity/volume) 15 U/L 0-55 Serum or plasma protein measurement (mass/volume) 6.1 g/dL 6.4-8.2 Serum or plasma albumin measurement (mass/volume) 3.2 g/dL 3.2-4.5 PT panel in platelet poor plasma by coag ulation assay - 03/08/16 06:00 Prothrombin time (PT) in platelet poor plasma by coagu lation assay 22.7 s 12.2-14.7 INR in platelet poor plasma or blood by coagulation as say 2.0 0.8-1.4 PT panel in platelet poor plasma by coag ulation assay - 03/09/16 04:07 Prothrombin time (PT) in platelet poor plasma by coagu lation assay 26.5 s 12.2-14.7 INR in platelet poor plasma or blood by coagulation as say 2.5 0.8-1.4 PT panel in platelet poor plasma by coag ulation assay - 03/10/16 05:20 Prothrombin time (PT) in platelet poor plasma by coagu lation assay 25.3 s 12.2-14.7 INR in platelet poor plasma or blood by coagulation as say 2.3 0.8-1.4 PT panel in platelet poor plasma by coag ulation assay - 03/11/16 06:12 Prothrombin time (PT) in platelet poor plasma by coagu lation assay 31.9 s 12.2-14.7 INR in platelet poor plasma or blood by coagulation as say 3.1 0.8-1.4 Complete blood count (CBC) with automate d white blood cell (WBC) differential - 03/13/16 06:37 Blood leukocytes automated count (number/volume) 11.2 10*3/uL 4.3-11.0 Blood erythrocytes automated count (number/volume) 3.41 10*6/uL 4.35-5.85 Venous blood hemoglobin measurement (mass/volume) 10.1 g/dL 13.3-17.7 Blood hematocrit (volume fraction) 30 % 40-54 Automated erythrocyte mean corpuscular volume 87 [ foz_us] 80-99 Automated erythrocyte mean corpuscular h emoglobin (mass per erythrocyte) 30 pg 25-34 Automated erythrocyte mean corpuscular h emoglobin concentration measurement (mass/volume) 34 g/dL 32-36 Automated erythrocyte distribution width ratio 14. 2 % 10.0- 14.5 Automated blood platelet count (count/volume) 319 10*3/uL 130-400 Automated blood platelet mean volume measurement 10.0 [foz_us] 7.4-10.4 Automated blood neutrophils/100 leukocytes 61 % 42-75 Automated blood lymphocytes/100 leukocytes 27 % 12-44 Blood monocytes/100 leukocytes 8 % 0-12 Automated blood eosinophils/100 leukocytes 4 % 0-10 Automated blood basophils/100 leukocytes 0 % 0-10 Blood neutrophils automated count (number/volume) 6.8 10*3 1.8-7.8 Blood lymphocytes automated count (number/volume) 3.0 10*3 1.0-4.0 Blood monocytes automated count (number/volume) 0. 9 10*3 0.0-1.0 Automated eosinophil count 0.5 10*3/uL 0 .0-0.3 Automated blood basophil count (count/volume) 0.0 10*3/uL 0.0-0.1 PT panel in platelet poor plasma by coag ulation assay - 03/13/16 06:37 Prothrombin time (PT) in platelet poor plasma by coagu lation assay 39.8 s 12.2-14.7 INR in platelet poor plasma or blood by coagulation as say 4.1 0.8-1.4 Comprehensive metabolic panel - 03/13/16 06:37 Serum or plasma sodium measurement (moles/volume) 133 mmol/L 135-145 Serum or plasma potassium measurement (moles/volume) 4.3 mmol/L 3.6-5.0 Serum or plasma chloride measurement (moles/volume) 98 mmol/L 98-107 Carbon dioxide 26 mmol/L 21-32 Serum or plasma anion gap determination (moles/volume) 9 mmol/L 5-14 Serum or plasma urea nitrogen measurement (mass/volume ) 30 mg/dL 7-18 Serum or plasma creatinine measurement (mass/volume) 0.89 mg/dL 0.60-1.30 Serum or plasma urea nitrogen/creatinine mass ratio 34 NRG Serum or plasma creatinine measurement w ith calculation of estimated glomerular filtration rate > NRG Serum or plasma glucose measurement (mass/volume) 96 mg/dL 70-105 Serum or plasma calcium measurement (mass/volume) 9.4 mg/dL 8.5-10.1 Serum or plasma total bilirubin measurement (mass/volu me) 0.2 mg/dL 0.1-1.0 Serum or plasma alkaline phosphatase obed surement (enzymatic activity/volume) 87 U/L 40-136 Serum or plasma aspartate aminotransfera se measurement (enzymatic activity/volume) 22 U/L 5-34 Serum or plasma alanine aminotransferase measurement (enzymatic activity/volume) 19 U/L 0-55 Serum or plasma protein measurement (mass/volume) 6.8 g/dL 6.4-8.2 Serum or plasma albumin measurement (mass/volume) 3.7 g/dL 3.2-4.5 PT panel in platelet poor plasma by coag ulation assay - 03/14/16 04:55 Prothrombin time (PT) in platelet poor plasma by coagu lation assay 41.7 s 12.2-14.7 INR in platelet poor plasma or blood by coagulation as say 4.3 0.8-1.4 PT panel in platelet poor plasma by coag ulation assay - 03/15/16 05:04 Prothrombin time (PT) in platelet poor plasma by coagu lation assay 29.2 s 12.2-14.7 INR in platelet poor plasma or blood by coagulation as say 2.8 0.8-1.4 PT panel in platelet poor plasma by coag ulation assay - 03/16/16 05:23 Prothrombin time (PT) in platelet poor plasma by coagu lation assay 26.8 s 12.2-14.7 INR in platelet poor plasma or blood by coagulation as say 2.5 0.8-1.4 PT panel in platelet poor plasma by coag ulation assay - 03/17/16 05:36 Prothrombin time (PT) in platelet poor plasma by coagu lation assay 30.0 s 12.2-14.7 INR in platelet poor plasma or blood by coagulation as say 2.9 0.8-1.4 PT panel in platelet poor plasma by coag ulation assay - 03/18/16 05:53 Prothrombin time (PT) in platelet poor plasma by coagu lation assay 31.8 s 12.2-14.7 INR in platelet poor plasma or blood by coagulation as say 3.1 0.8-1.4 PT panel in platelet poor plasma by coag ulation assay - 03/19/16 05:55 Prothrombin time (PT) in platelet poor plasma by coagu lation assay 33.4 s 12.2-14.7 INR in platelet poor plasma or blood by coagulation as say 3.3 0.8-1.4 PT panel in platelet poor plasma by coag ulation assay - 03/20/16 18:31 Prothrombin time (PT) in platelet poor plasma by coagu lation assay 21.9 s 12.2-14.7 INR in platelet poor plasma or blood by coagulation as say 1.9 0.8-1.4 PT panel in platelet poor plasma by coag ulation assay - 03/24/16 12:58 Prothrombin time (PT) in platelet poor plasma by coagu lation assay 25.4 s 12.2-14.7 INR in platelet poor plasma or blood by coagulation as say 2.3 0.8-1.4 Bacteria identification in isolate by an aerobe culture - 03/31/16 11:30 QUANTITY OF GROWTH Moderate Growth NR Bacteria identification in isolate by anaerobe culture [id number] [facility] Gram stain microscopy - 03/31/16 11:30 GRAM STAIN RESULT FEW GRAM POSITIVE COCCI [facility] Bacteria identification in wound by cult ure - 03/31/16 11:30 Bacteria identification in wound by culture [id number] [facility] FREE TEXT EXTERNAL (NOT JK); PLEASE NOTIFY MICRO E XT 141 NR QUANTITY OF GROWTH Abundant Growth NR MRSA AGAR MRSA isolated (Screening test for MRSA is positive) NR FREE TEXT ENTRY 2 IF SENSITIVITY IS NEEDED FOR THI S ISO. NR FREE TEXT ENTRY 3 04/03/16 8:05 BY Julia MANCERA [facility] Bacterial susceptibility panel - 7 11:30 Gentamicin susceptibility test by minimum inhibitory c oncentration S NRG Erythromycin susceptibility test by minimum inhibitory concentration >= NRG Vancomycin susceptibility test by minimum inhibitory c oncentration 1 NRG Ampicillin susceptibility test by minimum inhibitory c oncentration <= NRG Linezolid susceptibility test by minimum inhibitory co ncentration 2 NRG Bacterial susceptibility panel - 7 11:30 Oxacillin susceptibility test by minimum inhibitory co ncentration >= NRG Gentamicin susceptibility test by minimum inhibitory c oncentration <= NRG Clindamycin susceptibility test by minimum inhibitory concentration 1 NRG Erythromycin susceptibility test by minimum inhibitory concentration >= NRG Trimethoprim/sulfamethoxazole susceptibi lity test by minimum inhibitoryconcentration <= NRG Vancomycin susceptibility test by minimum inhibitory c oncentration 1 NRG Levofloxacin susceptibility test by minimum inhibitory concentration <= NRG Rifampin susceptibility test by minimum inhibitory con centration 1 NRG Tetracycline susceptibility test by minimum inhibitory concentration <= NRG PT panel in platelet poor plasma by coag ulation assay - 04/07/16 17:30 Prothrombin time (PT) in platelet poor plasma by coagu lation assay 44.0 s 12.2-14.7 INR in platelet poor plasma or blood by coagulation as say 4.6 0.8-1.4 PT panel in platelet poor plasma by coag ulation assay - 04/14/16 15:30 Prothrombin time (PT) in platelet poor plasma by coagu lation assay 22.3 s 12.2-14.7 INR in platelet poor plasma or blood by coagulation as say 2.0 0.8-1.4 Bacteria identification in isolate by an aerobe culture - 04/29/16 10:28 QUANTITY OF GROWTH Moderate Growth NRG Bacteria identification in isolate by anaerobe culture [id number] NR Gram stain microscopy - 04/29/16 10:28 GRAM STAIN RESULT MODERATE # GRAM POSITIVE C OCCI RESEMBLING STAPH NRG Bacteria identification in wound by cult ure - 04/29/16 10:28 Bacteria identification in wound by culture [id number] NR FREE TEXT EXTERNAL SENSITIVITY REPORTED 04/30/16 16 :15 NRG QUANTITY OF GROWTH Moderate Growth NRG Bacterial susceptibility panel - 7 10:28 Oxacillin susceptibility test by minimum inhibitory co ncentration 0.5 NRG Gentamicin susceptibility test by minimum inhibitory c oncentration <= NRG Clindamycin susceptibility test by minimum inhibitory concentration <= NRG Erythromycin susceptibility test by minimum inhibitory concentration <= NRG Trimethoprim/sulfamethoxazole susceptibi lity test by minimum inhibitoryconcentration <= NRG Vancomycin susceptibility test by minimum inhibitory c oncentration 1 NRG Levofloxacin susceptibility test by minimum inhibitory concentration <= NRG Rifampin susceptibility test by minimum inhibitory con centration <= NRG Tetracycline susceptibility test by minimum inhibitory concentration <= NRG PT panel in platelet poor plasma by coag ulation assay - 05/05/16 14:20 Prothrombin time (PT) in platelet poor plasma by coagu lation assay 14.6 s 12.2-14.7 INR in platelet poor plasma or blood by coagulation as say 1.2 0.8-1.4 Complete blood count (CBC) with automate d white blood cell (WBC) differential - 05/20/16 10:44 Blood leukocytes automated count (number/volume) 8.6 10*3/uL 4.3-11.0 Blood erythrocytes automated count (number/volume) 3.78 10*6/uL 4.35-5.85 Venous blood hemoglobin measurement (mass/volume) 11.2 g/dL 13.3-17.7 Blood hematocrit (volume fraction) 33 % 40-54 Automated erythrocyte mean corpuscular volume 87 [ foz_us] 80-99 Automated erythrocyte mean corpuscular h emoglobin (mass per erythrocyte) 30 pg 25-34 Automated erythrocyte mean corpuscular h emoglobin concentration measurement (mass/volume) 34 g/dL 32-36 Automated erythrocyte distribution width ratio 14. 2 % 10.0- 14.5 Automated blood platelet count (count/volume) 267 10*3/uL 130-400 Automated blood platelet mean volume measurement 10.6 [foz_us] 7.4-10.4 Automated blood neutrophils/100 leukocytes 55 % 42-75 Automated blood lymphocytes/100 leukocytes 34 % 12-44 Blood monocytes/100 leukocytes 8 % 0-12 Automated blood eosinophils/100 leukocytes 3 % 0-10 Automated blood basophils/100 leukocytes 1 % 0-10 Blood neutrophils automated count (number/volume) 4.7 10*3 1.8-7.8 Blood lymphocytes automated count (number/volume) 2.9 10*3 1.0-4.0 Blood monocytes automated count (number/volume) 0. 7 10*3 0.0-1.0 Automated eosinophil count 0.3 10*3/uL 0 .0-0.3 Automated blood basophil count (count/volume) 0.0 10*3/uL 0.0-0.1 Comprehensive metabolic panel - 05/20/16 10:44 Serum or plasma sodium measurement (moles/volume) 139 mmol/L 135-145 Serum or plasma potassium measurement (moles/volume) 4.0 mmol/L 3.6-5.0 Serum or plasma chloride measurement (moles/volume) 104 mmol/L 98-107 Carbon dioxide 25 mmol/L 21-32 Serum or plasma anion gap determination (moles/volume) 10 mmol/L 5-14 Serum or plasma urea nitrogen measurement (mass/volume ) 14 mg/dL 7-18 Serum or plasma creatinine measurement (mass/volume) 0.80 mg/dL 0.60-1.30 Serum or plasma urea nitrogen/creatinine mass ratio 18 NRG Serum or plasma creatinine measurement w ith calculation of estimated glomerular filtration rate > NRG Serum or plasma glucose measurement (mass/volume) 102 mg/dL 70-105 Serum or plasma calcium measurement (mass/volume) 9.4 mg/dL 8.5-10.1 Serum or plasma total bilirubin measurement (mass/volu me) 0.2 mg/dL 0.1-1.0 Serum or plasma alkaline phosphatase obed surement (enzymatic activity/volume) 91 U/L 40-136 Serum or plasma aspartate aminotransfera se measurement (enzymatic activity/volume) 11 U/L 5-34 Serum or plasma alanine aminotransferase measurement (enzymatic activity/volume) 7 U/L 0-55 Serum or plasma protein measurement (mass/volume) 6.5 g/dL 6.4-8.2 Serum or plasma albumin measurement (mass/volume) 3.4 g/dL 3.2-4.5 PT panel in platelet poor plasma by coag ulation assay - 06/04/16 11:50 Prothrombin time (PT) in platelet poor plasma by coagu lation assay 14.3 s 12.2-14.7 INR in platelet poor plasma or blood by coagulation as say 1.1 0.8-1.4 Bacteria identification in isolate by an aerobe culture - 06/12/16 14:57 Bacteria identification in isolate by anaerobe culture NOANA NR Gram stain microscopy - 06/12/16 14:57 GRAM STAIN RESULT NO WBC'S OR BACTERIA OBSERVED NRG Bacteria identification in wound by cult ure - 06/12/16 14:57 Bacteria identification in wound by culture [id number] NRG FREE TEXT EXTERNAL (NOT JK) NRG QUANTITY OF GROWTH Scant Growth NRG Bacterial susceptibility panel - 7 14:57 Gentamicin susceptibility test by minimum inhibitory c oncentration 4 NRG Trimethoprim/sulfamethoxazole susceptibi lity test by minimum inhibitoryconcentration <= NRG Tobramycin susceptibility test by minimum inhibitory c oncentration 2 NRG Cefazolin susceptibility test by minimum inhibitory co ncentration 32 NRG Piperacillin/tazobactam susceptibility t est by minimum inhibitory concentration <= NRG Ciprofloxacin susceptibility test by minimum inhibitor y concentration 1 NRG Meropenem susceptibility test by minimum inhibitory co ncentration <= NRG Whole blood basic metabolic panel - 08/23 15:40 Serum or plasma sodium measurement (moles/volume) 142 mmol/L 135-145 Serum or plasma potassium measurement (moles/volume) 4.0 mmol/L 3.6-5.0 Serum or plasma chloride measurement (moles/volume) 106 mmol/L 98-107 Carbon dioxide 29 mmol/L 21-32 Serum or plasma anion gap determination (moles/volume) 7 mmol/L 5-14 Serum or plasma urea nitrogen measurement (mass/volume ) 8 mg/dL 7-18 Serum or plasma creatinine measurement (mass/volume) 0.70 mg/dL 0.60-1.30 Serum or plasma urea nitrogen/creatinine mass ratio 11 NRG Serum or plasma creatinine measurement w ith calculation of estimated glomerular filtration rate > NRG Serum or plasma glucose measurement (mass/volume) 72 mg/dL 70-105 Serum or plasma calcium measurement (mass/volume) 9.3 mg/dL 8.5-10.1 PT panel in platelet poor plasma by coag ulation assay - 06/16/16 13:20 Prothrombin time (PT) in platelet poor plasma by coagu lation assay 18.2 s 12.2-14.7 INR in platelet poor plasma or blood by coagulation as say 1.5 0.8-1.4 Bacteria identification in isolate by an aerobe culture - 06/17/16 10:27 Bacteria identification in isolate by anaerobe culture NOANA NRG Gram stain microscopy - 06/17/16 10:27 GRAM STAIN RESULT NO WBC'S OR BACTERIA OBSERVED NRG Bacteria identification in wound by cult ure - 06/17/16 10:27 Bacteria identification in wound by culture [id number] NRG FREE TEXT EX[place] [address], -14-17 NRG QUANTITY OF GROWTH Moderate Growth NR Bacterial susceptibility panel - 7 10:27 Gentamicin susceptibility test by minimum inhibitory c oncentration 4 NRG Trimethoprim/sulfamethoxazole susceptibi lity test by minimum inhibitoryconcentration <= NRG Ampicillin susceptibility test by minimum inhibitory c oncentration >= NRG Tobramycin susceptibility test by minimum inhibitory c oncentration 2 NRG Cefazolin susceptibility test by minimum inhibitory co ncentration 32 NRG Ceftriaxone susceptibility test by minimum inhibitory concentration <= NRG Ampicillin/sulbactam susceptibility test by minimum inhibitory concentration <= NRG Piperacillin/tazobactam susceptibility t est by minimum inhibitory concentration <= NRG Ciprofloxacin susceptibility test by minimum inhibitor y concentration 1 NRG Meropenem susceptibility test by minimum inhibitory co ncentration 1 NRG Aztreonam susceptibility test by minimum inhibitory co ncentration >= NRG Tigecycline susceptibility test by minimum inhibitory concentration 2 NRG Whole blood basic metabolic panel - 06/07 05/23 11:15 Serum or plasma sodium measurement (moles/volume) 139 mmol/L 135-145 Serum or plasma potassium measurement (moles/volume) 4.0 mmol/L 3.6-5.0 Serum or plasma chloride measurement (moles/volume) 103 mmol/L 98-107 Carbon dioxide 26 mmol/L 21-32 Serum or plasma anion gap determination (moles/volume) 10 mmol/L 5-14 Serum or plasma urea nitrogen measurement (mass/volume ) 13 mg/dL 7-18 Serum or plasma creatinine measurement (mass/volume) 1.01 mg/dL 0.60-1.30 Serum or plasma urea nitrogen/creatinine mass ratio 13 NRG Serum or plasma creatinine measurement w ith calculation of estimated glomerular filtration rate > NRG Serum or plasma glucose measurement (mass/volume) 104 mg/dL 70-105 Serum or plasma calcium measurement (mass/volume) 9.8 mg/dL 8.5-10.1 Whole blood basic metabolic panel - 06/08 08/23 10:57 Serum or plasma sodium measurement (moles/volume) 135 mmol/L 135-145 Serum or plasma potassium measurement (moles/volume) 4.6 mmol/L 3.6-5.0 Serum or plasma chloride measurement (moles/volume) 103 mmol/L 98-107 Carbon dioxide 25 mmol/L 21-32 Serum or plasma anion gap determination (moles/volume) 7 mmol/L 5-14 Serum or plasma urea nitrogen measurement (mass/volume ) 12 mg/dL 7-18 Serum or plasma creatinine measurement (mass/volume) 0.86 mg/dL 0.60-1.30 Serum or plasma urea nitrogen/creatinine mass ratio 14 NRG Serum or plasma creatinine measurement w ith calculation of estimated glomerular filtration rate > NRG Serum or plasma glucose measurement (mass/volume) 92 mg/dL 70-105 Serum or plasma calcium measurement (mass/volume) 9.1 mg/dL 8.5-10.1 Complete blood count (CBC) with automate d white blood cell (WBC) differential - 07/02/16 20:08 Blood leukocytes automated count (number/volume) 7.0 10*3/uL 4.3-11.0 Blood erythrocytes automated count (number/volume) 3.77 10*6/uL 4.35-5.85 Venous blood hemoglobin measurement (mass/volume) 10.9 g/dL 13.3-17.7 Blood hematocrit (volume fraction) 33 % 40-54 Automated erythrocyte mean corpuscular volume 86 [ foz_us] 80-99 Automated erythrocyte mean corpuscular h emoglobin (mass per erythrocyte) 29 pg 25-34 Automated erythrocyte mean corpuscular h emoglobin concentration measurement (mass/volume) 34 g/dL 32-36 Automated erythrocyte distribution width ratio 14. 5 % 10.0- 14.5 Automated blood platelet count (count/volume) 248 10*3/uL 130-400 Automated blood platelet mean volume measurement 9.8 [foz_us] 7.4-10.4 Automated blood neutrophils/100 leukocytes 38 % 42-75 Automated blood lymphocytes/100 leukocytes 44 % 12-44 Blood monocytes/100 leukocytes 12 % 0-12 Automated blood eosinophils/100 leukocytes 5 % 0-10 Automated blood basophils/100 leukocytes 0 % 0-10 Blood neutrophils automated count (number/volume) 2.7 10*3 1.8-7.8 Blood lymphocytes automated count (number/volume) 3.1 10*3 1.0-4.0 Blood monocytes automated count (number/volume) 0. 9 10*3 0.0-1.0 Automated eosinophil count 0.4 10*3/uL 0 .0-0.3 Automated blood basophil count (count/volume) 0.0 10*3/uL 0.0-0.1 PT panel in platelet poor plasma by coag ulation assay - 07/02/16 20:08 Prothrombin time (PT) in platelet poor plasma by coagu lation assay 42.8 s 12.2-14.7 INR in platelet poor plasma or blood by coagulation as say 4.5 0.8-1.4 Activated partial thromboplastin time (a PTT) in platelet poor plasma bycoagulation assay - 07/02/16 20:08 Activated partial thromboplastin time (a PTT) in platelet poor plasma bycoagulation assay 48 s 24-35 PT panel in platelet poor plasma by coag ulation assay - 07/08/16 11:16 Prothrombin time (PT) in platelet poor plasma by coagu lation assay 13.7 s 12.2-14.7 INR in platelet poor plasma or blood by coagulation as say 1.1 0.8-1.4 Whole blood basic metabolic panel - 04/25 11:16 Serum or plasma sodium measurement (moles/volume) 138 mmol/L 135-145 Serum or plasma potassium measurement (moles/volume) 4.1 mmol/L 3.6-5.0 Serum or plasma chloride measurement (moles/volume) 101 mmol/L 98-107 Carbon dioxide 30 mmol/L 21-32 Serum or plasma anion gap determination (moles/volume) 7 mmol/L 5-14 Serum or plasma urea nitrogen measurement (mass/volume ) 13 mg/dL 7-18 Serum or plasma creatinine measurement (mass/volume) 0.87 mg/dL 0.60-1.30 Serum or plasma urea nitrogen/creatinine mass ratio 15 NRG Serum or plasma creatinine measurement w ith calculation of estimated glomerular filtration rate > NRG Serum or plasma glucose measurement (mass/volume) 97 mg/dL 70-105 Serum or plasma calcium measurement (mass/volume) 9.2 mg/dL 8.5-10.1 PT panel in platelet poor plasma by coag ulation assay - 07/15/16 11:37 Prothrombin time (PT) in platelet poor plasma by coagu lation assay 18.0 s 12.2-14.7 INR in platelet poor plasma or blood by coagulation as say 1.5 0.8-1.4 Bacteria identification in isolate by an aerobe culture - 07/28/16 10:09 Bacteria identification in isolate by anaerobe culture NOANA NRG Gram stain microscopy - 07/28/16 10:09 GRAM STAIN RESULT FEW WBC'S, NO BACTERIA OBSERVED NRG Bacteria identification in wound by cult ure - 07/28/16 10:09 Bacteria identification in wound by culture [id number] NRG FREE TEXT EXTERNAL [place]ITIVITY [place]PORTED AT 1313, NRG QUANTITY OF GROWTH Scant Growth NRG FREE TEXT ENTRY 2 ISOLATE SENT TO [facility] FOR SENSITIV ITY 08/01 NRG Bacterial susceptibility panel - 7 10:09 Oxacillin susceptibility test by minimum inhibitory co ncentration <= NRG Gentamicin susceptibility test by minimum inhibitory c oncentration <= NRG Clindamycin susceptibility test by minimum inhibitory concentration <= NRG Erythromycin susceptibility test by minimum inhibitory concentration <= NRG Trimethoprim/sulfamethoxazole susceptibi lity test by minimum inhibitoryconcentration 40 NRG Vancomycin susceptibility test by minimum inhibitory c oncentration 1 NRG Levofloxacin susceptibility test by minimum inhibitory concentration 4 NRG Rifampin susceptibility test by minimum inhibitory con centration <= NRG Tetracycline susceptibility test by minimum inhibitory concentration >= NRG Ciprofloxacin susceptibility test by minimum inhibitor y concentration R NRG PT panel in platelet poor plasma by coag ulation assay - 08/06/16 13:45 Prothrombin time (PT) in platelet poor plasma by coagu lation assay 19.2 s 12.2-14.7 INR in platelet poor plasma or blood by coagulation as say 1.6 0.8-1.4 Whole blood basic metabolic panel - 04/25 10:45 Serum or plasma sodium measurement (moles/volume) 137 mmol/L 135-145 Serum or plasma potassium measurement (moles/volume) 4.5 mmol/L 3.6-5.0 Serum or plasma chloride measurement (moles/volume) 102 mmol/L 98-107 Carbon dioxide 25 mmol/L 21-32 Serum or plasma anion gap determination (moles/volume) 10 mmol/L 5-14 Serum or plasma urea nitrogen measurement (mass/volume ) 13 mg/dL 7-18 Serum or plasma creatinine measurement (mass/volume) 0.82 mg/dL 0.60-1.30 Serum or plasma urea nitrogen/creatinine mass ratio 16 NRG Serum or plasma creatinine measurement w ith calculation of estimated glomerular filtration rate > NRG Serum or plasma glucose measurement (mass/volume) 91 mg/dL 70-105 Serum or plasma calcium measurement (mass/volume) 10.0 mg/dL 8.5-10.1 Magnesium - 08/08/16 10:45 Magnesium 1.3 mg/dL 1.8-2.4 Bacteria identification in isolate by an aerobe culture - 08/11/16 09:14 QUANTITY OF GROWTH Moderate Growth NRG Bacteria identification in isolate by anaerobe culture [id number] NRG Gram stain microscopy - 08/11/16 09:14 GRAM STAIN RESULT NO BACTERIA NRG Bacteria identification in wound by cult ure - 08/11/16 09:14 Bacteria identification in wound by culture [id number] NRG FREE TEXT EXTERNAL SENSITIVITY REPORTED 08/16/16 15 :10 NRG QUANTITY OF GROWTH Scant Growth NRG FREE TEXT ENTRY 2 OF SAME ORGANISM. [facility] Bacterial susceptibility panel - 7 09:14 Gentamicin susceptibility test by minimum inhibitory c oncentration S NRG Erythromycin susceptibility test by minimum inhibitory concentration >= NRG Vancomycin susceptibility test by minimum inhibitory c oncentration 1 NRG Ampicillin susceptibility test by minimum inhibitory c oncentration <= NRG Linezolid susceptibility test by minimum inhibitory co ncentration 2 NRG Complete blood count (CBC) with automate d white blood cell (WBC) differential - 09/01/16 08:00 Blood leukocytes automated count (number/volume) 14.9 10*3/uL 4.3-11.0 Blood erythrocytes automated count (number/volume) 3.82 10*6/uL 4.35-5.85 Venous blood hemoglobin measurement (mass/volume) 11.3 g/dL 13.3-17.7 Blood hematocrit (volume fraction) 33 % 40-54 Automated erythrocyte mean corpuscular volume 87 [ foz_us] 80-99 Automated erythrocyte mean corpuscular h emoglobin (mass per erythrocyte) 30 pg 25-34 Automated erythrocyte mean corpuscular h emoglobin concentration measurement (mass/volume) 34 g/dL 32-36 Automated erythrocyte distribution width ratio 14. 7 % 10.0- 14.5 Automated blood platelet count (count/volume) 181 10*3/uL 130-400 Automated blood platelet mean volume measurement 10.5 [foz_us] 7.4-10.4 Automated blood neutrophils/100 leukocytes 91 % 42-75 Automated blood lymphocytes/100 leukocytes 7 % 12-44 Blood monocytes/100 leukocytes 2 % 0-12 Automated blood eosinophils/100 leukocytes 1 % 0-10 Automated blood basophils/100 leukocytes 0 % 0-10 Blood neutrophils automated count (number/volume) 13.5 10*3 1.8-7.8 Blood lymphocytes automated count (number/volume) 1.1 10*3 1.0-4.0 Blood monocytes automated count (number/volume) 0. 2 10*3 0.0-1.0 Automated eosinophil count 0.1 10*3/uL 0 .0-0.3 Automated blood basophil count (count/volume) 0.0 10*3/uL 0.0-0.1 Comprehensive metabolic panel - 09/01/16 08:00 Serum or plasma sodium measurement (moles/volume) 136 mmol/L 135-145 Serum or plasma potassium measurement (moles/volume) 3.9 mmol/L 3.6-5.0 Serum or plasma chloride measurement (moles/volume) 99 mmol/L 98-107 Carbon dioxide 25 mmol/L 21-32 Serum or plasma anion gap determination (moles/volume) 12 mmol/L 5-14 Serum or plasma urea nitrogen measurement (mass/volume ) 10 mg/dL 7-18 Serum or plasma creatinine measurement (mass/volume) 0.85 mg/dL 0.60-1.30 Serum or plasma urea nitrogen/creatinine mass ratio 12 0-20 Serum or plasma creatinine measurement w ith calculation of estimated glomerular filtration rate > NRG Serum or plasma glucose measurement (mass/volume) 110 mg/dL 70-105 Serum or plasma calcium measurement (mass/volume) 9.3 mg/dL 8.5-10.1 Serum or plasma total bilirubin measurement (mass/volu me) 0.6 mg/dL 0.1-1.0 Serum or plasma alkaline phosphatase obed surement (enzymatic activity/volume) 68 U/L 40-136 Serum or plasma aspartate aminotransfera se measurement (enzymatic activity/volume) 17 U/L 5-34 Serum or plasma alanine aminotransferase measurement (enzymatic activity/volume) 16 U/L 0-55 Serum or plasma protein measurement (mass/volume) 7.5 g/dL 6.4-8.2 Serum or plasma albumin measurement (mass/volume) 3.6 g/dL 3.2-4.5 Blood manual differential performed dete ction - 09/01/16 08:00 Blood monocytes/100 leukocytes 0 % NRG Manual blood segmented neutrophils/100 leukocytes 86 % NRG Blood band neutrophils/100 leukocytes 1 % NRG Manual blood lymphocytes/100 leukocytes 10 % NRG Manual eosinophils/100 leukocytes in nose 2 % NRG Manual blood basophils/100 leukocytes 1 % NRG Blood anisocytosis detection by light microscopy S LIGHT NRG Blood lactic acid measurement (moles/vol ume) - 09/01/16 08:00 Blood lactic acid measurement (moles/volume) 3.02 mmol/L 0.50-2.00 PT panel in platelet poor plasma by coag ulation assay - 09/01/16 08:00 Prothrombin time (PT) in platelet poor plasma by coagu lation assay 30.4 s 12.2-14.7 INR in platelet poor plasma or blood by coagulation as say 2.9 0.8-1.4 Bacterial blood culture - 09/01/16 08:00 FREE TEXT EXTERNAL SENSITIVITY REPORTED 09/02/16 16 :45 NRG QUANTITY OF GROWTH Isolated [facility] Bacterial blood culture [id number] [facility] Bacterial susceptibility panel - 7 08:00 Gentamicin susceptibility test by minimum inhibitory c oncentration <= NRG Trimethoprim/sulfamethoxazole susceptibi lity test by minimum inhibitoryconcentration <= NRG Ampicillin susceptibility test by minimum inhibitory c oncentration >= NRG Tobramycin susceptibility test by minimum inhibitory c oncentration <= NRG Cefazolin susceptibility test by minimum inhibitory co ncentration <= NRG Ceftriaxone susceptibility test by minimum inhibitory concentration <= NRG Ampicillin/sulbactam susceptibility test by minimum inhibitory concentration >= NRG Piperacillin/tazobactam susceptibility t est by minimum inhibitory concentration <= NRG Ciprofloxacin susceptibility test by minimum inhibitor y concentration <= NRG Meropenem susceptibility test by minimum inhibitory co ncentration <= NRG Aztreonam susceptibility test by minimum inhibitory co ncentration <= NRG Extended spectrum beta lactamase (ESBL) producing bacteria susceptibility test by minimum inhibitory concentration - NR Bacterial blood culture - 09/01/16 09:05 Bacterial blood culture NG NRG Serum or plasma lactate measurement (mol es/volume) - 09/01/16 10:02 Serum or plasma lactate measurement (moles/volume) 0.97 mmol/L 0.50-2.00 Complete urinalysis with reflex to cultu re - 09/01/16 10:45 Urine color determination YELLOW NRG Urine clarity determination CLEAR NR G Urine pH measurement by test strip 6 5-9 Specific gravity of urine by test strip 1.015 1.016-1.022 Urine protein assay by test strip, semi-quantitative 4+ NEGATIVE Urine glucose detection by automated test strip NE GATIVE NEGATIVE Erythrocytes detection in urine sediment by light micr oscopy 2+ NEGATIVE Urine ketones detection by automated test strip NE GATIVE NEGATIVE Urine nitrite detection by test strip NEGATIVE NEGATIVE Urine total bilirubin detection by test strip NEGA TIVE NEGATIVE Urine urobilinogen measurement by automated test strip (mass/volume) NORMAL NORMAL Urine leukocyte esterase detection by dipstick 1+ NEGATIVE Automated urine sediment erythrocyte cou nt by microscopy (number/high power field) [HPF] NRG Automated urine sediment leukocyte count by microscopy (number/high power field) [HPF] NRG Bacteria detection in urine sediment by light microsco py TRACE NRG Squamous epithelial cells detection in u rine sediment by light microscopy 0-2 NRG Crystals detection in urine sediment by light microsco py NONE NRG Casts detection in urine sediment by light microscopy NONE NRG Mucus detection in urine sediment by light microscopy NEGATIVE NRG Complete urinalysis with reflex to culture NO NRG Bacterial urine culture - 09/01/16 10:45 Bacterial urine culture [id number] NRG COLONY COUNT 10,000/ML - 100,000/ML NRG FTX;REPORTABLE REFER TO BLOOD CULTURE FOR SENSITIV ITY NRG Automated blood complete blood count ( mogram) panel - 09/02/16 04:15 Blood leukocytes automated count (number/volume) 10.2 10*3/uL 4.3-11.0 Blood erythrocytes automated count (number/volume) 2.99 10*6/uL 4.35-5.85 Venous blood hemoglobin measurement (mass/volume) 8.9 g/dL 13.3-17.7 Blood hematocrit (volume fraction) 26 % 40-54 Automated erythrocyte mean corpuscular volume 88 [ foz_us] 80-99 Automated erythrocyte mean corpuscular h emoglobin (mass per erythrocyte) 30 pg 25-34 Automated erythrocyte mean corpuscular h emoglobin concentration measurement (mass/volume) 34 g/dL 32-36 Automated erythrocyte distribution width ratio 14. 9 % 10.0- 14.5 Automated blood platelet count (count/volume) 147 10*3/uL 130-400 Automated blood platelet mean volume measurement 10.8 [foz_us] 7.4-10.4 PT panel in platelet poor plasma by coag ulation assay - 09/02/16 04:15 Prothrombin time (PT) in platelet poor plasma by coagu lation assay 37.0 s 12.2-14.7 INR in platelet poor plasma or blood by coagulation as say 3.7 0.8-1.4 Comprehensive metabolic panel - 09/02/16 04:15 Serum or plasma sodium measurement (moles/volume) 137 mmol/L 135-145 Serum or plasma potassium measurement (moles/volume) 4.0 mmol/L 3.6-5.0 Serum or plasma chloride measurement (moles/volume) 106 mmol/L 98-107 Carbon dioxide 19 mmol/L 21-32 Serum or plasma anion gap determination (moles/volume) 12 mmol/L 5-14 Serum or plasma urea nitrogen measurement (mass/volume ) 20 mg/dL 7-18 Serum or plasma creatinine measurement (mass/volume) 1.65 mg/dL 0.60-1.30 Serum or plasma urea nitrogen/creatinine mass ratio 12 0-20 Serum or plasma creatinine measurement w ith calculation of estimated glomerular filtration rate 41 NRG Serum or plasma glucose measurement (mass/volume) 80 mg/dL 70-105 Serum or plasma calcium measurement (mass/volume) 8.1 mg/dL 8.5-10.1 Serum or plasma total bilirubin measurement (mass/volu me) 0.5 mg/dL 0.1-1.0 Serum or plasma alkaline phosphatase obed surement (enzymatic activity/volume) 46 U/L 40-136 Serum or plasma aspartate aminotransfera se measurement (enzymatic activity/volume) 37 U/L 5-34 Serum or plasma alanine aminotransferase measurement (enzymatic activity/volume) 23 U/L 0-55 Serum or plasma protein measurement (mass/volume) 5.5 g/dL 6.4-8.2 Serum or plasma albumin measurement (mass/volume) 2.8 g/dL 3.2-4.5 Automated blood complete blood count (he mogram) panel - 09/03/16 04:50 Blood leukocytes automated count (number/volume) 6.6 10*3/uL 4.3-11.0 Blood erythrocytes automated count (number/volume) 2.92 10*6/uL 4.35-5.85 Venous blood hemoglobin measurement (mass/volume) 8.5 g/dL 13.3-17.7 Blood hematocrit (volume fraction) 26 % 40-54 Automated erythrocyte mean corpuscular volume 88 [ foz_us] 80-99 Automated erythrocyte mean corpuscular h emoglobin (mass per erythrocyte) 29 pg 25-34 Automated erythrocyte mean corpuscular h emoglobin concentration measurement (mass/volume) 33 g/dL 32-36 Automated erythrocyte distribution width ratio 14. 8 % 10.0- 14.5 Automated blood platelet count (count/volume) 171 10*3/uL 130-400 Automated blood platelet mean volume measurement 10.5 [foz_us] 7.4-10.4 Comprehensive metabolic panel - 09/03/16 04:50 Serum or plasma sodium measurement (moles/volume) 140 mmol/L 135-145 Serum or plasma potassium measurement (moles/volume) 3.7 mmol/L 3.6-5.0 Serum or plasma chloride measurement (moles/volume) 111 mmol/L 98-107 Carbon dioxide 19 mmol/L 21-32 Serum or plasma anion gap determination (moles/volume) 10 mmol/L 5-14 Serum or plasma urea nitrogen measurement (mass/volume ) 11 mg/dL 7-18 Serum or plasma creatinine measurement (mass/volume) 0.82 mg/dL 0.60-1.30 Serum or plasma urea nitrogen/creatinine mass ratio 13 NRG Serum or plasma creatinine measurement w ith calculation of estimated glomerular filtration rate > NRG Serum or plasma glucose measurement (mass/volume) 87 mg/dL 70-105 Serum or plasma calcium measurement (mass/volume) 8.1 mg/dL 8.5-10.1 Serum or plasma total bilirubin measurement (mass/volu me) 0.2 mg/dL 0.1-1.0 Serum or plasma alkaline phosphatase obed surement (enzymatic activity/volume) 46 U/L 40-136 Serum or plasma aspartate aminotransfera se measurement (enzymatic activity/volume) 39 U/L 5-34 Serum or plasma alanine aminotransferase measurement (enzymatic activity/volume) 31 U/L 0-55 Serum or plasma protein measurement (mass/volume) 5.4 g/dL 6.4-8.2 Serum or plasma albumin measurement (mass/volume) 2.6 g/dL 3.2-4.5 PT panel in platelet poor plasma by coag ulation assay - 09/03/16 04:50 Prothrombin time (PT) in platelet poor plasma by coagu lation assay 37.4 s 12.2-14.7 INR in platelet poor plasma or blood by coagulation as say 3.8 0.8-1.4 Automated blood complete blood count (he mogram) panel - 09/04/16 05:40 Blood leukocytes automated count (number/volume) 6.5 10*3/uL 4.3-11.0 Blood erythrocytes automated count (number/volume) 2.98 10*6/uL 4.35-5.85 Venous blood hemoglobin measurement (mass/volume) 8.8 g/dL 13.3-17.7 Blood hematocrit (volume fraction) 26 % 40-54 Automated erythrocyte mean corpuscular volume 87 [ foz_us] 80-99 Automated erythrocyte mean corpuscular h emoglobin (mass per erythrocyte) 30 pg 25-34 Automated erythrocyte mean corpuscular h emoglobin concentration measurement (mass/volume) 34 g/dL 32-36 Automated erythrocyte distribution width ratio 15. 0 % 10.0- 14.5 Automated blood platelet count (count/volume) 201 10*3/uL 130-400 Automated blood platelet mean volume measurement 10.8 [foz_us] 7.4-10.4 Comprehensive metabolic panel - 09/04/16 05:40 Serum or plasma sodium measurement (moles/volume) 143 mmol/L 135-145 Serum or plasma potassium measurement (moles/volume) 3.3 mmol/L 3.6-5.0 Serum or plasma chloride measurement (moles/volume) 114 mmol/L 98-107 Carbon dioxide 21 mmol/L 21-32 Serum or plasma anion gap determination (moles/volume) 8 mmol/L 5-14 Serum or plasma urea nitrogen measurement (mass/volume ) 7 mg/dL 7-18 Serum or plasma creatinine measurement (mass/volume) 0.67 mg/dL 0.60-1.30 Serum or plasma urea nitrogen/creatinine mass ratio 10 NRG Serum or plasma creatinine measurement w ith calculation of estimated glomerular filtration rate > NRG Serum or plasma glucose measurement (mass/volume) 104 mg/dL 70-105 Serum or plasma calcium measurement (mass/volume) 8.4 mg/dL 8.5-10.1 Serum or plasma total bilirubin measurement (mass/volu me) 0.3 mg/dL 0.1-1.0 Serum or plasma alkaline phosphatase obed surement (enzymatic activity/volume) 50 U/L 40-136 Serum or plasma aspartate aminotransfera se measurement (enzymatic activity/volume) 25 U/L 5-34 Serum or plasma alanine aminotransferase measurement (enzymatic activity/volume) 22 U/L 0-55 Serum or plasma protein measurement (mass/volume) 5.5 g/dL 6.4-8.2 Serum or plasma albumin measurement (mass/volume) 2.8 g/dL 3.2-4.5 PT panel in platelet poor plasma by coag ulation assay - 09/04/16 05:40 Prothrombin time (PT) in platelet poor plasma by coagu lation assay 35.7 s 12.2-14.7 INR in platelet poor plasma or blood by coagulation as say 3.6 0.8-1.4 PT panel in platelet poor plasma by coag ulation assay - 09/08/16 09:03 Prothrombin time (PT) in platelet poor plasma by coagu lation assay 16.3 s 12.2-14.7 INR in platelet poor plasma or blood by coagulation as say 1.3 0.8-1.4 Complete blood count (CBC) with automate d white blood cell (WBC) differential - 09/13/16 22:10 Blood leukocytes automated count (number/volume) 9.7 10*3/uL 4.3-11.0 Blood erythrocytes automated count (number/volume) 3.14 10*6/uL 4.35-5.85 Venous blood hemoglobin measurement (mass/volume) 9.0 g/dL 13.3-17.7 Blood hematocrit (volume fraction) 28 % 40-54 Automated erythrocyte mean corpuscular volume 89 [ foz_us] 80-99 Automated erythrocyte mean corpuscular h emoglobin (mass per erythrocyte) 29 pg 25-34 Automated erythrocyte mean corpuscular h emoglobin concentration measurement (mass/volume) 32 g/dL 32-36 Automated erythrocyte distribution width ratio 15. 2 % 10.0- 14.5 Automated blood platelet count (count/volume) 387 10*3/uL 130-400 Automated blood platelet mean volume measurement 9.7 [foz_us] 7.4-10.4 Automated blood neutrophils/100 leukocytes 66 % 42-75 Automated blood lymphocytes/100 leukocytes 22 % 12-44 Blood monocytes/100 leukocytes 10 % 0-12 Automated blood eosinophils/100 leukocytes 2 % 0-10 Automated blood basophils/100 leukocytes 0 % 0-10 Blood neutrophils automated count (number/volume) 6.4 10*3 1.8-7.8 Blood lymphocytes automated count (number/volume) 2.1 10*3 1.0-4.0 Blood monocytes automated count (number/volume) 0. 9 10*3 0.0-1.0 Automated eosinophil count 0.2 10*3/uL 0 .0-0.3 Automated blood basophil count (count/volume) 0.0 10*3/uL 0.0-0.1 Blood lactic acid measurement (moles/vol ume) - 09/13/16 22:10 Blood lactic acid measurement (moles/volume) 0.71 mmol/L 0.50-2.00 Comprehensive metabolic panel - 09/13/16 22:10 Serum or plasma sodium measurement (moles/volume) 138 mmol/L 135-145 Serum or plasma potassium measurement (moles/volume) 4.2 mmol/L 3.6-5.0 Serum or plasma chloride measurement (moles/volume) 106 mmol/L 98-107 Carbon dioxide 24 mmol/L 21-32 Serum or plasma anion gap determination (moles/volume) 8 mmol/L 5-14 Serum or plasma urea nitrogen measurement (mass/volume ) 18 mg/dL 7-18 Serum or plasma creatinine measurement (mass/volume) 0.73 mg/dL 0.60-1.30 Serum or plasma urea nitrogen/creatinine mass ratio 25 NRG Serum or plasma creatinine measurement w ith calculation of estimated glomerular filtration rate > NRG Serum or plasma glucose measurement (mass/volume) 106 mg/dL 70-105 Serum or plasma calcium measurement (mass/volume) 9.1 mg/dL 8.5-10.1 Serum or plasma total bilirubin measurement (mass/volu me) 0.3 mg/dL 0.1-1.0 Serum or plasma alkaline phosphatase obed surement (enzymatic activity/volume) 66 U/L 40-136 Serum or plasma aspartate aminotransfera se measurement (enzymatic activity/volume) 11 U/L 5-34 Serum or plasma alanine aminotransferase measurement (enzymatic activity/volume) 8 U/L 0-55 Serum or plasma protein measurement (mass/volume) 6.4 g/dL 6.4-8.2 Serum or plasma albumin measurement (mass/volume) 3.1 g/dL 3.2-4.5 PT panel in platelet poor plasma by coag ulation assay - 09/13/16 22:10 Prothrombin time (PT) in platelet poor plasma by coagu lation assay 22.8 s 12.2-14.7 INR in platelet poor plasma or blood by coagulation as say 2.0 0.8-1.4 Magnesium - 09/13/16 22:10 Magnesium 0.9 mg/dL 1.8-2.4 Bacterial blood culture - 09/13/16 22:10 Bacterial blood culture NG NRG Complete urinalysis with reflex to cultu re - 09/13/16 23:10 Urine color determination YELLOW NRG Urine clarity determination CLEAR NR G Urine pH measurement by test strip 6 5-9 Specific gravity of urine by test strip 1.015 1.016-1.022 Urine protein assay by test strip, semi-quantitative 1+ NEGATIVE Urine glucose detection by automated test strip NE GATIVE NEGATIVE Erythrocytes detection in urine sediment by light micr oscopy NEGATIVE NEGATIVE Urine ketones detection by automated test strip NE GATIVE NEGATIVE Urine nitrite detection by test strip NEGATIVE NEGATIVE Urine total bilirubin detection by test strip NEGA TIVE NEGATIVE Urine urobilinogen measurement by automated test strip (mass/volume) NORMAL NORMAL Urine leukocyte esterase detection by dipstick 2+ NEGATIVE Automated urine sediment erythrocyte cou nt by microscopy (number/high power field) NONE NRG Automated urine sediment leukocyte count by microscopy (number/high power field) [HPF] NRG Bacteria detection in urine sediment by light microsco py TRACE NRG Squamous epithelial cells detection in u rine sediment by light microscopy 2-5 NRG Crystals detection in urine sediment by light microsco py NONE NRG Casts detection in urine sediment by light microscopy NONE NRG Mucus detection in urine sediment by light microscopy SMALL NRG Complete urinalysis with reflex to culture NO NRG Bacteria identification in isolate by an aerobe culture - 10/06/16 07:37 Bacteria identification in isolate by anaerobe culture NOANA NRG Gram stain microscopy - 10/06/16 07:37 GRAM STAIN RESULT FEW WBC'S, NO BACTERIA OBSERVED NRG Bacteria identification in wound by cult ure - 10/06/16 07:37 Bacteria identification in wound by culture [id number] NRG FREE [place] [address], 8 -6-17 NRG QUANTITY OF GROWTH Scant Growth NRG FREE TEXT ENTRY 2 NO FURTHER STUDIES UNLESS REQUES [facility] Bacterial susceptibility panel - 7 07:37 Oxacillin susceptibility test by minimum inhibitory co ncentration >= NRG Gentamicin susceptibility test by minimum inhibitory c oncentration 8 NRG Clindamycin susceptibility test by minimum inhibitory concentration >= NRG Erythromycin susceptibility test by minimum inhibitory concentration >= NRG Trimethoprim/sulfamethoxazole susceptibi lity test by minimum inhibitoryconcentration 160 NRG Vancomycin susceptibility test by minimum inhibitory c oncentration 1 NRG Levofloxacin susceptibility test by minimum inhibitory concentration >= NRG Rifampin susceptibility test by minimum inhibitory con centration 2 NRG Tetracycline susceptibility test by minimum inhibitory concentration >= NRG Ciprofloxacin susceptibility test by minimum inhibitor y concentration R NRG Linezolid susceptibility test by minimum inhibitory co ncentration 1 NR Bacterial susceptibility panel - 7 07:37 Trimethoprim/sulfamethoxazole susceptibi lity test by minimum inhibitoryconcentration <= NRG Bacterial susceptibility panel - 7 07:37 Gentamicin susceptibility test by minimum inhibitory c oncentration >= NRG Trimethoprim/sulfamethoxazole susceptibi lity test by minimum inhibitoryconcentration <= NRG Ampicillin susceptibility test by minimum inhibitory c oncentration 16 NRG Tobramycin susceptibility test by minimum inhibitory c oncentration >= NRG Cefazolin susceptibility test by minimum inhibitory co ncentration 32 NRG Ceftriaxone susceptibility test by minimum inhibitory concentration 32 NRG Ampicillin/sulbactam susceptibility test by minimum inhibitory concentration 8 NRG Piperacillin/tazobactam susceptibility t est by minimum inhibitory concentration <= NRG Ciprofloxacin susceptibility test by minimum inhibitor y concentration 1 NRG Meropenem susceptibility test by minimum inhibitory co ncentration <= NRG Aztreonam susceptibility test by minimum inhibitory co ncentration >= NRG Amikacin susceptibility test by minimum inhibitory con centration S NRG PT panel in platelet poor plasma by coag ulation assay - 10/17/16 10:15 Prothrombin time (PT) in platelet poor plasma by coagu lation assay 46.8 s 12.2-14.7 INR in platelet poor plasma or blood by coagulation as say 5.0 0.8-1.4 Whole blood basic metabolic panel - 10/07 03/25 10:15 Serum or plasma sodium measurement (moles/volume) 136 mmol/L 135-145 Serum or plasma potassium measurement (moles/volume) 3.6 mmol/L 3.6-5.0 Serum or plasma chloride measurement (moles/volume) 100 mmol/L 98-107 Carbon dioxide 24 mmol/L 21-32 Serum or plasma anion gap determination (moles/volume) 12 mmol/L 5-14 Serum or plasma urea nitrogen measurement (mass/volume ) 23 mg/dL 7-18 Serum or plasma creatinine measurement (mass/volume) 2.00 mg/dL 0.60-1.30 Serum or plasma urea nitrogen/creatinine mass ratio 12 NRG Serum or plasma creatinine measurement w ith calculation of estimated glomerular filtration rate 33 NRG Serum or plasma glucose measurement (mass/volume) 100 mg/dL 70-105 Serum or plasma calcium measurement (mass/volume) 9.1 mg/dL 8.5-10.1 PT panel in platelet poor plasma by coag ulation assay - 10/20/16 08:55 Prothrombin time (PT) in platelet poor plasma by coagu lation assay 22.1 s 12.2-14.7 INR in platelet poor plasma or blood by coagulation as say 2.0 0.8-1.4 PT panel in platelet poor plasma by coag ulation assay - 11/03/16 11:07 Prothrombin time (PT) in platelet poor plasma by coagu lation assay 16.7 s 12.2-14.7 INR in platelet poor plasma or blood by coagulation as say 1.3 0.8-1.4 Whole blood basic metabolic panel - 10/08 10/23 11:07 Serum or plasma sodium measurement (moles/volume) 134 mmol/L 135-145 Serum or plasma potassium measurement (moles/volume) 3.9 mmol/L 3.6-5.0 Serum or plasma chloride measurement (moles/volume) 97 mmol/L 98-107 Carbon dioxide 26 mmol/L -32 Serum or plasma anion gap determination (moles/volume) 11 mmol/L 5-14 Serum or plasma urea nitrogen measurement (mass/volume ) 15 mg/dL 7-18 Serum or plasma creatinine measurement (mass/volume) 1.12 mg/dL 0.60-1.30 Serum or plasma urea nitrogen/creatinine mass ratio 13 NRG Serum or plasma creatinine measurement w ith calculation of estimated glomerular filtration rate > NRG Serum or plasma glucose measurement (mass/volume) 106 mg/dL 70-105 Serum or plasma calcium measurement (mass/volume) 9.6 mg/dL 8.5-10.1 PT panel in platelet poor plasma by coag ulation assay - 11/14/16 11:35 Prothrombin time (PT) in platelet poor plasma by coagu lation assay 31.7 s 12.2-14.7 INR in platelet poor plasma or blood by coagulation as say 3.1 0.8-1.4 PT panel in platelet poor plasma by coag ulation assay - 07/08/17 09:52 Prothrombin time (PT) in platelet poor plasma by coagu lation assay 32.5 s 12.2-14.7 INR in platelet poor plasma or blood by coagulation as say 3.2 0.8-1.4 Complete blood count (CBC) with automate d white blood cell (WBC) differential - 05/30/19 20:00 Blood leukocytes automated count (number/volume) 8.3 10*3/uL 4.3-11.0 Blood erythrocytes automated count (number/volume) 4.08 10*6/uL 4.35-5.85 Venous blood hemoglobin measurement (mass/volume) 12.6 g/dL 13.3-17.7 Blood hematocrit (volume fraction) 37 % 40-54 Automated erythrocyte mean corpuscular volume 91 [ foz_us] 80-99 Automated erythrocyte mean corpuscular h emoglobin (mass per erythrocyte) 31 pg 25-34 Automated erythrocyte mean corpuscular h emoglobin concentration measurement (mass/volume) 34 g/dL 32-36 Automated erythrocyte distribution width ratio 14. 2 % 10.0- 14.5 Automated blood platelet count (count/volume) 220 10*3/uL 130-400 Automated blood platelet mean volume measurement 10.5 [foz_us] 7.4-10.4 Automated blood neutrophils/100 leukocytes 55 % 42-75 Automated blood lymphocytes/100 leukocytes 30 % 12-44 Blood monocytes/100 leukocytes 12 % 0-12 Automated blood eosinophils/100 leukocytes 3 % 0-10 Automated blood basophils/100 leukocytes 0 % 0-10 Blood neutrophils automated count (number/volume) 4.5 10*3 1.8-7.8 Blood lymphocytes automated count (number/volume) 2.5 10*3 1.0-4.0 Blood monocytes automated count (number/volume) 1. 0 10*3 0.0-1.0 Automated eosinophil count 0.2 10*3/uL 0 .0-0.3 Automated blood basophil count (count/volume) 0.0 10*3/uL 0.0-0.1 Whole blood basic metabolic panel - 05/08 05/26 20:00 Serum or plasma sodium measurement (moles/volume) 134 mmol/L 135-145 Serum or plasma potassium measurement (moles/volume) 5.1 mmol/L 3.6-5.0 Serum or plasma chloride measurement (moles/volume) 102 mmol/L 98-107 Carbon dioxide 23 mmol/L 21-32 Serum or plasma anion gap determination (moles/volume) 9 mmol/L 5-14 Serum or plasma urea nitrogen measurement (mass/volume ) 25 mg/dL 7-18 Serum or plasma creatinine measurement (mass/volume) 2.02 mg/dL 0.60-1.30 Serum or plasma urea nitrogen/creatinine mass ratio 12 NRG Serum or plasma creatinine measurement w ith calculation of estimated glomerular filtration rate 33 NRG Serum or plasma glucose measurement (mass/volume) 86 mg/dL 70-105 Serum or plasma calcium measurement (mass/volume) 9.0 mg/dL 8.5-10.1 PT panel in platelet poor plasma by coag ulation assay - 05/30/19 20:00 Prothrombin time (PT) in platelet poor plasma by coagu lation assay 89.4 s 12.2-14.7 INR in platelet poor plasma or blood by coagulation as say 10.7 0.8-1.4 Complete blood count (CBC) with automate d white blood cell (WBC) differential - 06/15/19 11:13 Blood leukocytes automated count (number/volume) 12.0 10*3/uL 4.3-11.0 Blood erythrocytes automated count (number/volume) 3.71 10*6/uL 4.35-5.85 Venous blood hemoglobin measurement (mass/volume) 11.4 g/dL 13.3-17.7 Blood hematocrit (volume fraction) 35 % 40-54 Automated erythrocyte mean corpuscular volume 93 [ foz_us] 80-99 Automated erythrocyte mean corpuscular h emoglobin (mass per erythrocyte) 31 pg 25-34 Automated erythrocyte mean corpuscular h emoglobin concentration measurement (mass/volume) 33 g/dL 32-36 Automated erythrocyte distribution width ratio 14. 2 % 10.0- 14.5 Automated blood platelet count (count/volume) 227 10*3/uL 130-400 Automated blood platelet mean volume measurement 10.0 [foz_us] 7.4-10.4 Automated blood neutrophils/100 leukocytes 59 % 42-75 Automated blood lymphocytes/100 leukocytes 27 % 12-44 Blood monocytes/100 leukocytes 11 % 0-12 Automated blood eosinophils/100 leukocytes 2 % 0-10 Automated blood basophils/100 leukocytes 0 % 0-10 Blood neutrophils automated count (number/volume) 7.1 10*3 1.8-7.8 Blood lymphocytes automated count (number/volume) 3.3 10*3 1.0-4.0 Blood monocytes automated count (number/volume) 1. 4 10*3 0.0-1.0 Automated eosinophil count 0.3 10*3/uL 0 .0-0.3 Automated blood basophil count (count/volume) 0.0 10*3/uL 0.0-0.1 Comprehensive metabolic panel - 06/15/19 11:13 Serum or plasma sodium measurement (moles/volume) 140 mmol/L 135-145 Serum or plasma potassium measurement (moles/volume) 4.1 mmol/L 3.6-5.0 Serum or plasma chloride measurement (moles/volume) 103 mmol/L 98-107 Carbon dioxide 28 mmol/L 21-32 Serum or plasma anion gap determination (moles/volume) 9 mmol/L 5-14 Serum or plasma urea nitrogen measurement (mass/volume ) 21 mg/dL 7-18 Serum or plasma creatinine measurement (mass/volume) 1.22 mg/dL 0.60-1.30 Serum or plasma urea nitrogen/creatinine mass ratio 17 NRG Serum or plasma creatinine measurement w ith calculation of estimated glomerular filtration rate 58 NRG Serum or plasma glucose measurement (mass/volume) 95 mg/dL 70-105 Serum or plasma calcium measurement (mass/volume) 9.1 mg/dL 8.5-10.1 Serum or plasma total bilirubin measurement (mass/volu me) 0.2 mg/dL 0.1-1.0 Serum or plasma alkaline phosphatase obed surement (enzymatic activity/volume) 88 U/L 40-136 Serum or plasma aspartate aminotransfera se measurement (enzymatic activity/volume) 19 U/L 5-34 Serum or plasma alanine aminotransferase measurement (enzymatic activity/volume) 17 U/L 0-55 Serum or plasma protein measurement (mass/volume) 6.5 g/dL 6.4-8.2 Serum or plasma albumin measurement (mass/volume) 3.7 g/dL 3.2-4.5 CALCIUM CORRECTED 9.3 mg/dL 8.5-10.1 PT panel in platelet poor plasma by coag ulation assay - 06/15/19 11:13 Prothrombin time (PT) in platelet poor plasma by coagu lation assay 16.3 s 12.2-14.7 INR in platelet poor plasma or blood by coagulation as say 1.3 0.8-1.4 Activated partial thromboplastin time (a PTT) in platelet poor plasma bycoagulation assay - 06/15/19 11:13 Activated partial thromboplastin time (a PTT) in platelet poor plasma bycoagulation assay 28 s 24-35 Encounters ACCT No. Visit Date/Time Discharge Status Pt. Type Provider Facility Loc./Unit Complaint [id number] 01/26/2017 23:42:22 01/26/2017 23:59:5 9 CLS Outpatient [id number] 07/18/2019 07:46:00 23:59:59 CLS Outpatient MANUEL BASS MD Via [facility] CARD HTN [id number] 07/14/2019 08:31:00 23:59:59 CLS Outpatient MANUEL BASS MD Via [facility] CARD HTN [id number] 06/15/2019 10:54:00 13:27:00 DIS Emergency NAA CALDWELL APRN Via [facility] ER LEG PAIN [id number] 05/30/2019 19:48:00 21:47:00 DIS Emergency NAA CALDWELL APRN Via [facility] ER LEFT EYE SWOLLEN/NOSE B LEED DUE TO BLOWING NOSE [id number] 05/23/2019 10:00:00 23:59:59 CLS Preadmit ANSON QUINTANILLA Via [facility] CARD HTN [id number] 03/15/2019 09:32:00 23:59:59 CLS Outpatient MARINA ALMANZA MEDICARE INTERVIEWER Via [facility] RAD LT HAND WRIST PAIN [id number] 03/30/2018 00:14:00 019 23:59:59 CLS Preadmit MANUEL BASS MD Via [facility] LAB Z51.81,Z95.2 [id number] 12/29/2017 15:36:00 019 00:01:00 DIS Outpatient MANUEL BASS MD Via [facility] LAB Z51.81,Z95.2 [id number] 02/05/2018 09:24:00 23:59:59 CLS Outpatient KENNETH QUINTANILLA Via [facility] CARD CAROTID ART RHEA STENOSIS [id number] 12/29/2017 16:07:00 23:59:59 CLS Preadmit ANSON QUINTANILLA Via [facility] CARD CAROTID ARTERY STENOSIS [id number] 10/20/2017 16:26:00 018 00:01:00 DIS Outpatient MANUEL BASS MD Via [facility] LAB Z51.81,Z95.2 [id number] 10/01/2017 11:20:00 018 11:56:00 DIS Outpatient MARINA ALMANZA MEDICARE INTERVIEWER Via [facility] REHAB WEAKNESS L AKA [id number] 09/01/2017 13:12:00 018 00:01:00 DIS Outpatient MARINA ALMANZA MEDICARE INTERVIEWER Via [facility] REHAB WEAKNESS L AKA [id number] 07/08/2017 09:48:00 018 23:59:59 CLS Outpatient MANUEL BASS MD Via [facility] LAB Z95.2,Z51.81 [id number] 03/27/2017 10:32:00 018 23:59:59 CLS Outpatient OTTO MILLER MD Via [facility] S69.91XS [id number] 12/01/2016 08:23:00 017 23:59:59 CLS Outpatient LOIS GR MD Via [facility] WOUNDCARE [id number] 11/24/2016 08:31:00 017 23:59:59 CLS Outpatient LOIS GR MD Via [facility] WOUNDCARE [id number] 11/24/2016 00:27:00 017 23:59:59 CLS Preadmit MANUEL BASS MD Via [facility] CHRONIC ANTICOAGULATION [id number] 11/03/2016 11:03:00 017 00:01:00 DIS Outpatient MANUEL BASS MD Via [facility] CHRONIC ANTICOAGULATION [id number] 11/17/2016 08:31:00 017 23:59:59 CLS Outpatient LOIS GR MD [id number] 11/14/2016 11:35:00 017 23:59:59 CLS Outpatient OTTO MILLER MD Via [facility] HTN,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 [id number] 11/14/2016 11:00:00 017 23:59:59 CLS Outpatient MANUEL BASS MD Via [facility] CHRONIC ANTICOAGULATION [id number] 11/03/2016 13:48:00 017 23:59:59 CLS Outpatient LOIS GR MD Via [facility] LAB 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, 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 [id number] 11/03/2016 11:08:00 017 23:59:59 CLS Outpatient LOIS GR MD Via [facility] WOUNDCARE [id number] 10/27/2016 08:54:00 017 23:59:59 CLS Outpatient MEL WOOD APRN Via [facility] WOUNDCARE [id number] 10/20/2016 08:56:00 017 23:59:59 CLS Outpatient LOIS GR MD [facility] [id number] 10/17/2016 10:59:00 017 23:59:59 CLS Outpatient LOIS GR MD Via [facility] NON PRESSURE CHRONIC UL CER OF L THIGH [id number] 10/15/2016 08:45:00 017 23:59:59 CLS Outpatient KENNETH QUINTANILLA Via [facility] CARD 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 [id number] 10/13/2016 11:25:00 017 23:59:59 CLS Outpatient LOIS GR MD [facility] [id number] 10/06/2016 08:59:00 017 16:00:00 DIS Outpatient LOIS GR MD [facility] [id number] 09/22/2016 08:57:00 017 00:01:00 DIS Outpatient LOIS GR MD [facility] [id number] 09/13/2016 21:17:00 017 02:09:00 DIS Emergency WESLEY DORAISSA Via [facility] ER STIFF NECK AND BACK;FEV ER [id number] 09/01/2016 10:25:00 017 13:15:00 DIS Inpatient OTTO MILLER MD Via [address] ADULT SEVERE SEPSIS [id number] 08/18/2016 09:27:00 017 23:59:59 CLS Outpatient MANUEL BASS MD Via [facility] LAB CHRONIC ANTICOAGULATION [id number] 08/08/2016 11:41:00 017 23:59:59 CLS Outpatient OTTO MILLER MD Via [facility] MUSCLE SPASMS, (L)AKA ULCER [id number] 07/08/2016 11:04:00 017 23:59:59 CLS Outpatient LOIS GR MD Via [facility] LAB L97.122,T87.81 [id number] 07/02/2016 10:41:00 017 23:59:59 CLS Outpatient LOIS GR MD Via [facility] LAB L97.123,T87.81,I70.241 [id number] 07/02/2016 19:52:00 017 21:16:00 DIS Emergency DAYA FERRARI, NAVIN White Via [facility] ER POST OP/LACERAT ION [id number] 06/17/2016 09:54:00 00:01:00 DIS Outpatient LOIS GR MD Via [facility] WOUNDCARE [id number] 06/19/2016 11:43:00 23:59:59 CLS Outpatient LOIS GR MD Via [facility] L AKA ULCER [id number] 06/16/2016 14:02:00 017 23:59:59 CLS Outpatient MANUEL BASS MD Via [facility] ANTICOAG THERAPY [id number] 06/12/2016 15:28:00 017 23:59:59 CLS Outpatient LAURA APARICIO MD Via [facility] LAB PVD [id number] 06/04/2016 12:00:00 017 23:59:59 CLS Outpatient MANUEL BASS MD Via [facility] ANTICOAG THERAPY [id number] 05/21/2016 10:46:00 017 23:59:59 CLS Outpatient LOIS GR MD Via [facility] I70.241 [id number] 05/20/2016 10:32:00 017 23:59:59 CLS Outpatient LOIS GR MD Via [facility] LAB L97.123,T87.81 [id number] 05/09/2016 13:43:00 017 23:59:59 CLS Outpatient LOIS GR MD Via [facility] RAD SKIN GRAFT [id number] 05/08/2016 14:09:00 017 23:59:59 CLS Outpatient MANUEL BASS MD Via [facility] ANTICOAG THERAPY [id number] 05/05/2016 14:20:00 017 23:59:59 CLS Outpatient MANUEL BASS MD Via [facility] [id number] 04/14/2016 16:24:00 017 23:59:59 CLS Outpatient MANUEL BASS MD Via [facility] Z79.01 [id number] 04/07/2016 18:07:00 017 23:59:59 CLS Outpatient MANUEL BASS MD Via [facility] ANTICOAG THERAPY [id number] 03/24/2016 13:20:00 017 23:59:59 CLS Outpatient LOIS GR MD Via [facility] CARD T86.821 [id number] 03/24/2016 12:22:00 017 23:59:59 CLS Outpatient OTTO MILLER MD Via [facility] ANTICOAG THERAPY, PRO STHETIC VALVE [id number] 03/20/2016 18:31:00 017 23:59:59 CLS Outpatient OTTO MILLER MD Via [facility] ANTICOAG THERAPY [id number] 03/06/2016 18:04:00 017 13:05:00 DIS Inpatient CHARLIE VARGAS MD Via [facility] IRF LEFT AKA [id number] 02/18/2016 15:26:00 017 00:01:00 DIS Outpatient LOIS GR MD Via [facility] WOUNDCARE [id number] 02/25/2016 12:47:00 016 00:01:00 DIS Outpatient MANUEL BASS MD Via [facility] LAB CHRONIC ANTICOAGULATION [id number] 03/01/2016 01:46:00 04:32:00 DIS Emergency KHRIS PRIETO, SVETLANA Daniel Vi a [facility] ER L LEG PAIN,SWELLING [id number] 12/25/2015 15:43:00 14:30:00 DIS Inpatient OTTO MILLER MD Via [facility] 4TH L AXILLARY ABSCESS [id number] 11/23/2015 14:45:00 016 00:01:00 DIS Outpatient MARINA ALMANZA APRN Via [facility] LAB ANTICOAG THERAPY [id number] 11/19/2015 15:18:00 00:01:00 DIS Outpatient LOIS GR MD Via [facility] WOUNDCARE [id number] 10/01/2015 23:20:00 13:45:00 DIS Inpatient MUKUND PRIETOKALEB S Via [facility] 4TH SIGMOID DIVERTICULITIS/HYPOMAGNESEMIA [id number] 09/26/2015 11:25:00 23:59:59 CLS Outpatient MAILE FERRARI, LOIS Oneil Via [facility] RAD NON-PRESSURE CHRONIC UL CER LT FOOT [id number] 08/30/2015 16:23:00 16:23:00 CAN Preadmit MARINA ALMANZA APRN Via [facility] LAB CHRONIC ANTICOAGULATION [id number] 08/27/2015 15:53:00 23:59:59 CLS Outpatient MANUEL BASS MD Via [facility] LAB HTN [id number] 08/24/2015 13:49:00 23:59:59 CLS Outpatient MARINA ALMANZA APRN Via [facility] LAB ANTICOAG THERAPY [id number] 08/22/2015 09:34:00 23:59:59 CLS Outpatient MARINA ALMANZA APRN Via [facility] RAD LEFT FOOT TOE INFECTIO N [id number] 08/21/2015 13:37:00 23:59:59 CLS Outpatient MANUEL BASS MD Via [facility] LAB HTN, HYPERLIPIDEMIA [id number] 08/21/2015 13:21:00 23:59:59 CLS Outpatient MARINA ALMANZA MEDICARE INTERVIEWER Via [facility] LAB CELLULITIS L TOE [id number] 08/20/2015 17:27:00 23:59:59 CLS Outpatient OTTO MILLER MD Via [facility] RAD CELLULITIS LEFT TOE [id number] 09/27/2014 09:35:00 23:59:59 CLS Outpatient MIKY CAVAZOS MEDICARE INTERVIEWER Via [facility] RAD RLE PAIN PERIPHERAL VA SCULAR DISEASE [id number] 06/23/2014 11:51:00 12:04:00 DIS Outpatient MANUEL BASS MD Via [facility] CR AMI [id number] [id number] 05/03/2014 10:30:00 00:01:00 DIS Outpatient MANUEL BASS MD Via [facility] LAB ANTICOAG THERAPY [id number] 04/24/2014 11:08:00 23:59:59 CLS Outpatient MANUEL BASS MD Via [facility] HH ANTICOAGULANT THERAPY [id number] 04/14/2014 11:37:00 11:15:00 DIS Inpatient SEBASTIÁN BINGHAM MD Via [facility] CSD ANEMIA [id number] 02/20/2014 10:58:00 00:01:00 DIS Outpatient MANUEL BASS MD Via [facility] LAB ANTICOAG THERAPY [id number] 04/10/2014 16:55:00 18:24:00 DIS Inpatient SEBASTIÁN BINGHAM MD Via [facility] ICU LEFT LEG ARTERIAL OCCLU FABIAN [id number] 12/20/2013 15:23:00 23:59:59 CLS Outpatient FABI CABA MD Via [facility] LAB HTN [id number] 09/13/2013 14:43:00 00:01:00 DIS Outpatient MANUEL BASS MD Via [facility] LAB ANTICOAG THERAPY [id number] 09/29/2013 07:40:00 12:25:00 DIS Outpatient SEBASTIÁN BINGHAM MD Via [facility] CATH ASOD [id number] 09/23/2013 05:51:00 16:20:00 DIS Inpatient SEBASTIÁN BINGHAM MD Via [facility] ICU ISCHEMIC RLE [id number] 09/13/2013 14:23:00 23:59:59 CLS Outpatient FABI CABA MD Via [facility] LAB [id number] 07/08/2013 10:24:00 00:01:00 DIS Outpatient MANUEL BASS MD Via [facility] LAB ANTICOAG THERAPY [id number] 07/08/2013 10:28:00 23:59:59 CLS Outpatient FABI CABA MD Via [facility] LAB AORTIC VALVE RE PLACEMENT [id number] 06/17/2013 23:26:00 14:20:00 DIS Inpatient MANUEL BSAS MD Via [facility] CSD CHEST PAIN,HYPOKALEMIA,DYSPNEA,EDEMA [id number] 06/14/2013 12:53:00 14:42:00 DIS Emergency SVETLANA PINEDO DO [facility] ER FB IN THROAT [id number] 05/02/2013 14:44:00 23:59:59 CLS Outpatient FABI CABA MD Via [facility] LAB HTN,COPD [id number] 01/31/2013 10:50:00 23:59:59 CLS Outpatient MARIIA MEMBRENO MD Via [facility] CARD CP,S/P JUNIOR SYSTEMS ENGINEER AL AVR [id number] 01/28/2013 09:18:00 013 17:00:00 DIS Inpatient FABI CABA MD Via [facility] ICU CHEST PAIN [id number] 10/21/2012 13:03:00 00:01:00 DIS Outpatient MANUEL BASS MD Via [facility] LAB ANTICOAG THERAPY [id number] 11/24/2012 15:05:00 18:00:00 DIS Inpatient FABI CABA MD Via [facility] 4TH HYPOMAGNESEMIA, RL EXT PAIN, CYST [id number] 11/19/2012 15:04:00 17:36:00 DIS Emergency NAA CALDWELL APRN Via [facility] ER L LEG PAIN/SWOLLEN [id number] 05/03/2014 10:22:00 Document Registration [id number] 05/01/2014 13:47:00 Document Registration [id number] 04/10/2014 16:35:00 Document Registration [id number] 06/10/2012 10:35:00 Document Registration [id number] 05/21/2012 13:18:00 Document Registration [id number] 02/11/2012 16:01:00 Document Registration [id number] 10/21/2011 13:40:00 Document Registration [id number] 09/09/2011 15:22:00 Document Registration [id number] 11/04/2010 09:35:00 Document Registration [id number] 10/04/2010 08:22:00 Document Registration [id number] 09/05/2010 10:11:00 Document Registration [id number] 08/26/2010 10:49:00 Document Registration [id number] 08/13/2010 15:44:00 Document Registration [id number] 08/12/2010 06:41:00 Document Registration [id number] 08/09/2010 10:30:00 Document Registration [id number] 05/18/2010 10:32:00 Document Registration [id number] 11/27/2009 13:16:00 Document Registration [id number] 11/21/2009 14:16:00 Document Registration [id number] 10/02/2009 17:20:00 Document Registration [id number] 08/21/2009 08:21:00 Document Registration [id number] 08/20/2009 07:40:00 Document Registration [id number] 07/18/2009 15:08:00 Document Registration [id number] 05/01/2009 17:16:00 Document Registration [id number] 11/23/2008 15:50:00 Document Registration
[2019-08-20 18:49] LABS: BILIRUBIN,TOTAL 0.5 MG/DL (0.1-1.0)
[2019-08-20 18:51] LABS: ANISOCYTOSIS SLIGHT; BAND NEUTROPHILS 2 %; BASOPHILS % (MANUAL) 0 %; CREATININE SERUM 2.47 MG/DL (0.60-1.30); ELLIPT/OVALOCYTES SLIGHT; EOSINOPHILS % (MANUAL) 0 %; HYPOCHROMASIA SLIGHT; LYMPHOCYTES % (MANUAL) 7 %; MONOCYTES % (MANUAL) 2 %; NEUTROPHILS % (MANUAL) 88 %; POIKILOCYTOSIS SLIGHT; REACTIVE LYMPHOCYTES 1 %
--- NOTE | 2019-08-20 18:52 | Diagnostic Imaging Report ---
INDICATION: Shortness of air. Fever. COMPARISON: 09/13/2016 FINDINGS: Single frontal view of the chest demonstrates mild cardiomegaly. Pulmonary vasculature is within normal limits. Sternotomy wires are noted. The lungs are well aerated and clear. No large pleural effusion or pneumothorax is seen. The visualized osseous structures show no acute abnormalities. IMPRESSION: 1. Cardiomegaly, but no evidence of failure or focal infiltrate. Dictated by: Dictated on workstation # [id number]
--- NOTE | 2019-08-20 19:00 | NUR ---
INITIAL BAG OF 1000 CC NS COMPLETED. EMS STARTED BAG PRIOR TO PATIENT ARRIVAL.
[2019-08-20 19:07] LABS: BILIRUBIN,URINE NEGATIVE (NEGATIVE); CLARITY,URINE CLEAR; COLOR,URINE YELLOW; GLUCOSE, URINE (UA) NEGATIVE (NEGATIVE); KETONES,URINE NEGATIVE (NEGATIVE); LEUKOCYTE ESTERASE ,URINE NEGATIVE (NEGATIVE); NITRITE,URINE NEGATIVE (NEGATIVE); PROTEIN,URINE 1+ (NEGATIVE)
[2019-08-20 19:13] LABS: BACTERIA,URINE TRACE /HPF; SQUAMOUS EPITHELIAL CELL,UR RARE /HPF; WBC,URINE 0-2 /HPF
[2019-08-20 19:14] LABS: HYALINE CASTS, URINE 0-2 /LPF
--- NOTE | 2019-08-20 19:22 | NUR ---
PEDIAL PULSE NOTED PER DOPPLER ON RT FOOT. PITTING EDEMA NOTED.
[2019-08-20] MEDS ORDERED: PIPERACILLIN SODIUM/TAZOBACTAM 4.5 GM in NS (IVPB) 100 ML IV ONE (19:30)
[2019-08-20] MEDS ORDERED: PHYTONADIONE (ADULT) INJECTION 5 MG in NS (IVPB) 50 ML IV ONE ×2 (19:30→20:15)
[2019-08-20] MEDS ORDERED: NS IV ONE ×2 (19:45→22:45)
[2019-08-20] MEDS ORDERED: NS IV 500 ML 500 ML IV SCH ×2 (19:45→21:45)
[2019-08-20] MEDS ORDERED: PHYTONADIONE IV ONE (19:45)
[2019-08-20] MEDS: NOREPINEPHRINE 4 MG/250 ML 250 ML IV SCH ×2 (20:19→23:29)
--- NOTE | 2019-08-20 21:45 | NUR ---
YVES CHENG admitted to room CU2-1, with an admitting diagnosis of Covid PUI, Severe sepsis, SCOOTER, on 08/20/19 from [facility], accompanied by staff.YVES CHENG introduced to surroundings, call light, bed controls, phone, TV, temperature control, lights, meal times, smoking policy, visitor policy, side rail policy, bathrooms and showers. Patient Rights given to patient in the handbook. YVES CHENG verbalizes understanding that [facility] is not responsible for the loss or damage to any personal effects or valuables that are kept in the patients possession during their hospitalization. The following Patient Care Plans were discussed with the patient: Discharge Planning, activity,pain, and room orientation. YVES CHENG verbalizes understanding of Interdisciplinary Patient Education. Patient and/or family were informed about the Rapid Response Team and its purpose.
[2019-08-20] MEDS ORDERED: NS IV 1000 ML 1,000 ML ONE (22:13)
[2019-08-20] MEDS ORDERED: IBUPROFEN 600 MG (MOTRIN) TAB PO PRN (22:45)
[2019-08-20] MEDS ORDERED: RT-ALBUTEROL INHALER HFA (VENTOLIN HFA) 8 GM IH PRN (22:45)
[2019-08-20] MEDS ORDERED: EPINEPHrine 1 MG INJECTION 2 MG in NS (IVPB) 248 ML IV SCH (22:45)
[2019-08-20] MEDS ORDERED: ONDANSETRON 4 MG/2 ML (SDV) Z0FRAN IV PRN (22:45)
[2019-08-20] MEDS ORDERED: ACETAMINOPHEN 325 MG TABLET PO PRN (22:45)
[2019-08-20 22:59] LABS: INR 3.2 (0.8-1.4); PROTHROMBIN TIME PATIENT 33.8 SEC (12.2-14.7)
[2019-08-20] MEDS: NS IV 1000 ML 1,000 ML IV SCH ×2 (23:27)
[2019-08-20] MEDS: VASOPRESSIN INJECTION 20 UNIT in NORMAL SALINE 100 ML IV SCH (23:28)
[2019-08-21] VITALS (25 sets, daily range): BP systolic 79–116; BP diastolic 41–81
--- NOTE | 2019-08-21 00:05 | Progress Note-Post Operative ---
Post-Operative Progess Note Surgeon (s)/Oral Surgery Technician (s) Surgeon CHARLIE RODRIGUEZ DO Oral Surgery Technician: none Pre-Operative Diagnosis Hypotension, Sepsis Post-Operative Diagnosis same Procedure & Operative Findings Date of Procedure 08/20/19 Procedure Performed/Findings PROCEDURE: [Right] internal jugular triple lumen catheter placement using ultrasound guidance. COMPLICATIONS: None. INDICATIONS: The patient is a 74 year old male [with hypotension and sepsis]. Patient understands the risks and benefits of central line placement and wished to proceed with the procedure. Consent was signed on the chart. He refused IJ at first, but I told him that with his INR at 4.3 if he had any bleeding while attempting subclavian he could bleed to . I told him I could hold pressure on the neck and he consented to IJ placement.. PROCEDURE: The patient was in his bed in ICU, was prepped and draped in the sterile fashion. A surgical pause was performed. Ultrasound was used to locate the internal jugular vein. Once located anesthetic was infiltrated above it. 18 Gauge finder needle with negative inspiration was advanced and the right internal jugular vein was accessed. Dark nonpulsatile blood was withdrawn. The wire was inserted. Ultrasound assured proper placement. The needle was removed. A [#11] blade scalpel was used to make a stab incision over the guidwire. Using Seldinger technique the dilator sheath was then advanced over the wire and then removed and triple lumen catheter was advanced over the wire using the Seldinger technique; it went in easily. The Groshong catheter was inserted through the sheath and the sheath wire was removed and all three ports were then accessed. Good flash of blood and then flushed with saline. The catheter was then sutured in place using 3-0 Silk on a Landry needle. The areas were then washed and dried. Sterile dressing and biodisc were placed over the catheter. The patient tolerated the procedure well without complication. Anesthesia Type Local lidocaine Estimated Blood Loss Estimated blood loss (mL): scant Specimens/Packing Specimens Removed none CHARLIE RODRIGUEZ DO Aug 21, 2019 00:05
--- NOTE | 2019-08-21 00:12 | Consultation - Surgery ---
History of Present Illness History of Present Illness Patient Consulted On(hilario/time) 08/21/19 22:52 Date Seen by Provider: Aug 21, 2019 Time Seen by Provider: 22:52 History of Present Illness Surgery asked to consult regarding Hypotension, sepsis and need for Vasopressor support. HPI per ED: to ER by EMS from home with reports of cough shortness of breath and fever for 3 days. Fever per EMS was up to 103 in the ambulance. Recently released from [facility] for arterial occlusion right leg. Has persistent pain around the puncture site in the right groin as well as a bit of erythema. No chest pain. Oxygen saturation was 89% room air and he typically does not wear oxygen. He was very wheezy and received a DuoNeb in route to the hospital. Timing/Duration: Other (3 days) Severity: Moderate Associated Symptoms: Cough, Fever, Wheezing When I saw pt he was resting comfortably in [place] [id number] isolation room. Allergies and Home Medications Allergies Coded Allergies: morphine (Verified Allergy, Unknown, 09/01/16) Home Medications Allopurinol 100 Mg Tablet, 100 MG PO DAILY, (Reported) Aspirin 81 Mg Tabec, 81 MG PO DAILY, (Reported) Carvedilol 6.25 Mg Tablet, 6.25 MG PO BID, (Reported) HOLD FOR SBP<110 Cephalexin 500 Mg Capsule, 500 MG PO TID Prescribed by: RAISSA OLSON on 09/14/16 0205 Docusate Sodium 100 Mg Capsule, 100 MG PO Mo, (Reported) Famotidine 20 Mg Tablet, 20 MG PO BID Prescribed by: RAISSA OLSON on 09/14/16 0205 Gabapentin 300 Mg Capsule, 300 MG PO TID, (Reported) Hydrocodone Bit/Acetaminophen 1 Each Tablet, 1 TAB PO Q6H PRN for PAIN-MODERATE, (Reported) Lactobacillus Acidophilus 1 Each Capsule, 1 EACH PO TID Prescribed by: OTTO MILLER on 09/04/16 0924 Lisinopril 5 Mg Tablet, 5 MG PO 1700, (Reported) Magnesium Oxide 400 Mg Tablet, 400 MG PO BID, (Reported) Multivitamin 1 Each Tablet, 1 TAB PO DAILY, (Reported) Pantoprazole Sodium 40 Mg Tablet.dr, 40 MG PO DAILY, (Reported) Warfarin Sodium 2 Mg Tablet, 2 MG PO SuSa@1200, (Reported) Warfarin Sodium 2 Mg Tablet, 4 MG PO MoTuWeThFr@1200 HOLD UNTIL 09/07/16 - RESTART ROUTINE COUMADIN ON 09/07/16 Prescribed by: OTTO MILLER on 09/04/16 0924 Patient Home Medication List Home Medication List Reviewed: Yes Past [place]as[place]-Adsiqc-Bswcxp Hx Patient Social History Alcohol Use: Denies Use Number of Drinks Today: GG Recreational Drug Use: No (ETOH) Drug of Choice: Wild [place] Smoking Status: Never a Smoker Former Smoker, Quit: Mar 09, 2015 Type Used: Cigarettes 2nd Hand Smoke Exposure: No Recent Foreign Travel: No Contact w/Someone Who Travel: No Recent Infectious Disease Expo: No Recent Hopitalizations: No Immunizations Up To Date Tetanus Booster (TDap): Less than 5yrs PED Vaccines UTD: Yes Seasonal Allergies Seasonal Allergies: Yes Surgeries History of Surgeries: Yes (CABG,VALVE REPLACED,PLATE IN LEG,VASECTOMY,AKA) Surgeries: CABG, Coronary Stent, Open Heart Surgery, Valve Replacement, Vascu lar Surgery Respiratory History of Respiratory Disorde: Yes Respiratory Disorders: COPD Cardiovascular History of Cardiac Disorders: Yes Cardiac Disorders: Chronic Edema/Swelling, Coronary Artery Disease, High Cholesterol, Hypertension, Peripheral Vascular, Valvular Heart Disease Neurological History of Neurological Disord: Yes Neurological Disorders: Neuropathy Reproductive System Hx Reproductive Disorders: No Sexually Transmitted Disease: No HIV/AIDS: No Genitourinary History of Genitourinary Disor: No Gastrointestinal History of Gastrointestinal Di: Yes Gastrointestinal Disorders: Diverticulosis Musculoskeletal History of Musculoskeletal Dis: Yes (LEFT AKA 03/03/2016) Musculoskeletal Disorders: Amputee Endocrine History of Endocrine Disorders: No Endocrine Disorders: Diabetes, Non-Insulin dep HEENT History of HEENT Disorders: Yes Loss of Vision: Denies Hearing Impairment: Hard of Hearing Cancer History of Cancer: No Psychosocial History of Psychiatric Problem: No Behavioral Health Disorders: Violent Behavior Integumentary History of Skin or Integumenta: Yes (SEES WOUND CARE ) Blood Transfusions History of Blood Disorders: Yes (chronic anemia. penitentiary anticoag therapy.) Adverse Reaction to a Blood Tr: No Family Medical History Significant Family History: Heart Disease, Hypertension, Psychiatric Problems Review of Systems-General Constitutional: No malaise, No weakness EENTM: No blurred vision, No double vision, No mouth pain, No mouth swelling, No epistaxis Respiratory: dyspnea on exertion, short of breath Cardiovascular: No chest pain; Hx of Intervention Gastrointestinal: No abdominal pain, No nausea, No vomiting Genitourinary: No dysuria, No frequency Musculoskeletal: joint pain, joint swelling, muscle pain, muscle stiffness Skin: No change in color, No change in hair/nails Psychiatric/Neurological: Denies Anxiety, Denies Depressed, Denies Seizure, Denies Tremors Other pt is on coumadin and he bleeds and bruises easily Physical Exam-General Problems Physical Exam Vital Signs Vital Signs - First Documented 08/20/19 18:20 Temp 38.6 Pulse 86 Resp 18 B/P (MAP) 102/69 (80) Pulse Ox 96 O2 Delivery Nasal Cannula O2 Flow Rate 3.00 Capillary Refill : Less Than 3 Seconds General Appearance: WD/WN, no apparent distress Eyes: Bilateral Eye PERRL, Bilateral Eye EOMI HEENT: pharynx normal; No scleral icterus (R), No scleral icterus (L) Neck: non-tender, supple Respiratory: No no respiratory distress, No no accessory muscle use; decreased breath sounds Cardiovascular: regular rate, rhythm, no murmur Gastrointestinal: normal bowel sounds, non tender, soft, no organomegaly, no pulsatile mass Extremities: no pedal edema, no calf tenderness Neurologic/Psychiatric: alert, normal mood/affect, oriented x 3 Skin: normal color, warm/dry Lymphatic: no adenopathy (neck, axilla or groin) Data Review Labs Laboratory Tests 08/20/19 18:20: White Blood Count 20.2H, Red Blood Count 3.17L, Hemoglobin 9.5L, Hematocrit 29L, Mean Corpuscular Volume 90, Mean Corpuscular Hemoglobin 30, Mean Corpuscular Hemoglobin Concent 33, Red Cell Distribution Width 14.4, Platelet Count 163, Mean Platelet Volume 11.3H, Neutrophils (%) (Auto) 87H, Lymphocytes (%) (Auto) 6L, Monocytes (%) (Auto) 7, Eosinophils (%) (Auto) 0, Basophils (%) (Auto) 0, Neutrophils # (Auto) 17.6H, Lymphocytes # (Auto) 1.3, Monocytes # (Auto) 1.4H, Eosinophils # (Auto) 0.0, Basophils # (Auto) 0.0, Neutrophils % (Manual) 88, Lymphocytes % (Manual) 7, Monocytes % (Manual) 2, Eosinophils % (Manual) 0, Basophils % (Manual) 0, Band Neutrophils 2, Reactive Lymphocytes 1, Hypochromasia SLIGHT, Poikilocytosis SLIGHT, Anisocytosis SLIGHT, Elliptocytes SLIGHT, Prothrombin Time 43.3H, INR Comment 4.3H, Activated Partial Thromboplast Time 63H, Sodium Level 135, Potassium Level 4.6, Chloride Level 103, Carbon Dioxide Level 21, Anion Gap 11, Blood Urea Nitrogen 35H, Creatinine 2.47H, Est imat Glomerular Filtration Rate 26, BUN/Creatinine Ratio 14, Glucose Level 99, Lactic Acid Level 1.21, Calcium Level 8.5, Corrected Calcium 9.2, Total Bilirubin 0.5, Aspartate Amino Transf (AST/SGOT) 39H, Alanine Aminotransferase (ALT/SGPT) 14, Alkaline Phosphatase 75, Total Protein 6.4, Albumin 3.1L, Procalcitonin 2.70H 08/20/19 18:25: Blood Gas Puncture Site R RAD, Blood Gas Patient Temperature 101.4, Arterial Blood pH 7.40, Arterial Blood Partial Pressure CO2 41, Arterial Blood Partial Pressure O2 109H, Arterial Blood HCO3 25, Arterial Blood Total CO2 25.6, Arterial Blood Oxygen Saturation 98, Arterial Blood Base Excess 0.5, Rick Test YES-POS, Blood Gas Ventilator Setting NO, Blood Gas Inspired Oxygen 3L 08/20/19 18:45: Urine Color YELLOW, Urine Clarity CLEAR, Urine pH 6.0, Urine Specific [place] 1.015L, Urine Protein 1+H, Urine Glucose (UA) NEGATIVE, Urine Ketones NEGATIVE, Urine Nitrite NEGATIVE, Urine Bilirubin NEGATIVE, Urine Urobilinogen 0.2, Urine Leukocyte Esterase NEGATIVE, Urine RBC (Auto) 2+H, Urine RBC NONE, Urine WBC 0- 2, Urine Squamous Epithelial Cells RARE, Urine Crystals NONE, Urine Bacteria TRACE, Urine Casts PRESENT, Urine Hyaline Casts 0-2H, Urine Granular Casts 2-5H, Urine Mucus SMALLH, Urine Culture Indicated CULTURE PENDING 08/20/19 22:40: Prothrombin Time 33.8H, INR Comment 3.2H Microbiology 08/20/19 Influenza Types A,B Antigen (SILVIA) - Final, Complete Assessment/Plan Assessment/Plan Assessment/Plan Hypotension Sepsis Venous insufficiency Abnormal coagulopathy Pt is septic and cannot maintain his SBP with vasopressors. He has an abnormal coagulopathy because of his coumadin. Will place a central line; convinced pt to do this in IJ. Clinical Quality Measures DVT/VTE Risk/Contraindication: Risk Factor Score Per Nursin RFS Level Per Nursing on Admit: 4+=Very High CHARLIE RODRIGUEZ DO Aug 21, 2019 00:12
[2019-08-21] MEDS: NOREPINEPHRINE 4 MG/250 ML 250 ML IV SCH ×6 (01:04→21:42)
[2019-08-21 02:45] LABS: BASOPHILS % (AUTO) 0 % (0-10); EOSINOPHILS % (AUTO) 0 % (0-10); HEMATOCRIT 27 % (40-54); HEMOGLOBIN 8.8 G/DL (13.3-17.7); LYMPHOCYTES # (AUTO) 1.4 X 10^3 (1.0-4.0); LYMPHOCYTES % (AUTO) 7 % (12-44); MEAN CORPUSCULAR HEMOGLOBIN 30 PG (25-34); MEAN CORPUSCULAR HGB CONC 33 G/DL (32-36); MEAN CORPUSCULAR VOLUME 91 FL (80-99); MEAN PLATELET VOLUME 11.3 FL (7.4-10.4); MONOCYTES # (AUTO) 1.3 X 10^3 (0.0-1.0); MONOCYTES % (AUTO) 6 % (0-12); NEUTROPHILS # (AUTO) 17.9 X 10^3 (1.8-7.8); NEUTROPHILS % (AUTO) 87 % (42-75); PLATELET COUNT 150 10^3/uL (130-400); RED CELL DISTRIBUTION WIDTH 14.3 % (10.0-14.5); WHITE BLOOD COUNT 20.5 10^3/uL (4.3-11.0)
[2019-08-21 03:09] LABS: ALBUMIN 2.9 GM/DL (3.2-4.5); POTASSIUM 4.3 MMOL/L (3.6-5.0)
[2019-08-21 03:11] LABS: CALCIUM 7.9 MG/DL (8.5-10.1)
[2019-08-21 03:12] LABS: TOTAL PROTEIN 5.7 GM/DL (6.4-8.2)
[2019-08-21 03:13] LABS: BILIRUBIN,TOTAL 0.6 MG/DL (0.1-1.0)
[2019-08-21 03:15] LABS: CREATININE SERUM 2.5 MG/DL (0.60-1.30); PHOSPHORUS 3.4 MG/DL (2.3-4.7)
[2019-08-21 03:18] LABS: MAGNESIUM 1.4 MG/DL (1.6-2.4)
[2019-08-21] MEDS: MAGNESIUM 1 GM/100 ML IVPB 100 ML IV SCH ×3 (03:50→05:22)
[2019-08-21] MEDS: POTASSIUM CL 10MEQ/50ML IVPB 50 ML IV SCH (03:50)
[2019-08-21] MEDS: KCL 20 MEQ TAB (K-DUR) PO SCH (03:51)
[2019-08-21] MEDS ORDERED: NS (IVPB) 100 ML ONE (04:59)
[2019-08-21] MEDS ORDERED: PIPERACILLIN/TAZO 4.5 GM VIAL (ZOSYN) IV ONE (04:59)
[2019-08-21] MEDS: NS IV 1000 ML 1,000 ML IV SCH ×6 (05:17→22:46)
[2019-08-21] MEDS: PIPERACILLIN/TAZOBACTAM (BULK) 4.5 GM in NS (IVPB) 100 ML IV SCH ×3 (05:17→22:27)
[2019-08-21] MEDS: VASOPRESSIN INJECTION 20 UNIT in NORMAL SALINE 100 ML IV SCH ×2 (05:22→15:25)
--- NOTE | 2019-08-21 06:20 | Pulmonary Consultation ---
History of Present Illness History of Present Illness Time Seen by Provider: 06:15 Date of Admission Allergies and Home Medications Allergies Coded Allergies: morphine (Verified Allergy, Unknown, 09/01/16) Home Medications Allopurinol 100 Mg Tablet, 100 MG PO DAILY, (Reported) Aspirin 81 Mg Tabec, 81 MG PO DAILY, (Reported) Carvedilol 6.25 Mg Tablet, 6.25 MG PO BID, (Reported) HOLD FOR SBP<110 Cephalexin 500 Mg Capsule, 500 MG PO TID Prescribed by: RAISSA OLSON on 09/14/16 020 Docusate Sodium 100 Mg Capsule, 100 MG PO Mo, (Reported) Famotidine 20 Mg Tablet, 20 MG PO BID Prescribed by: RAISSA OLSON on 09/14/16 020 Gabapentin 300 Mg Capsule, 300 MG PO TID, (Reported) Hydrocodone Bit/Acetaminophen 1 Each Tablet, 1 TAB PO Q6H PRN for PAIN-MODERATE, (Reported) Lactobacillus Acidophilus 1 Each Capsule, 1 EACH PO TID Prescribed by: OTTO MILLER on 09/04/16 09 Lisinopril 5 Mg Tablet, 5 MG PO 1700, (Reported) Magnesium Oxide 400 Mg Tablet, 400 MG PO BID, (Reported) Multivitamin 1 Each Tablet, 1 TAB PO DAILY, (Reported) Pantoprazole Sodium 40 Mg Tablet.dr, 40 MG PO DAILY, (Reported) Warfarin Sodium 2 Mg Tablet, 2 MG PO SuSa@1200, (Reported) Warfarin Sodium 2 Mg Tablet, 4 MG PO MoTuWeThFr@1200 HOLD UNTIL 09/07/16 - RESTART ROUTINE COUMADIN ON 09/07/16 Prescribed by: OTTO MILLER on 09/04/16 0924 Past Sgjgcsb-Evxwrp-Cfgmpf Hx Patient Social History Alcohol Use: Denies Use Number of Drinks Today: GG Alcohol Beverage of Choice: Whiskey Recreational Drug Use: No (ETOH) Drug of Choice: Wild [place] Smoking Status: Never a Smoker Type Used: Cigarettes Former Smoker, Quit: Mar 09, 2015 2nd Hand Smoke Exposure: No Recent Foreign Travel: No Contact w/Someone Who Travel: No Recent Infectious Disease Expo: No Recent Hopitalizations: No Physical Abuse: No Sexual Abuse: No Mistreated: No Fear: No Immunizations Up To Date Tetanus Booster (TDap): Less than 5yrs PED Vaccines UTD: Yes Seasonal Allergies Seasonal Allergies: Yes Past Medical History Surgeries: Yes (CABG,VALVE REPLACED,PLATE IN LEG,VASECTOMY,AKA) CABG, Coronary Stent, Open Heart Surgery, Valve Replacement, Vascular Surgery Respiratory: Yes COPD Currently Using CPAP: No Currently Using BIPAP: No Cardiac: Yes Chronic Edema/Swelling, Coronary Artery Disease, High Cholesterol, Hypertension, Peripheral Vascular, Valvular Heart Disease Neurological: Yes Neuropathy Reproductive Disorders: No Sexually Transmitted Disease: No HIV/AIDS: No Genitourinary: No Gastrointestinal: Yes Diverticulosis Musculoskeletal: Yes (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 intermediate card tender anticoag therapy.) Adverse Reaction/Blood Tranf: No Family Medical History Heart Disease, Hypertension, Psychiatric Problems Sepsis Event Evaluation Height, Weight, BMI Height: 5'3.00" Weight: 150lbs. 6.0oz. 68.754227lo; 35.06 BMI Method:Stated Exam Exam Vital Signs Date Time Temp Pulse Resp B/P (MAP) Pulse Ox O2 Delivery O2 Flow Rate FiO2 08/21/19 04:10 36.9 Nasal Cannula 2.00 08/21/19 04:00 57 12 109/70 (83) 94 Nasal Cannula 2.00 08/21/19 03:45 96 Nasal Cannula 2.00 08/21/19 03:00 58 15 116/59 (78) 100 Nasal Cannula 2.00 08/21/19 02:00 52 12 96/51 (66) 97 Nasal Cannula 2.00 08/21/19 01:04 58 104/53 08/21/19 01:00 58 12 104/53 (70) 96 Nasal Cannula 2.00 08/21/19 01:00 57 08/21/19 00:58 36.8 56 12 101/41 97 Nasal Cannula 2.00 08/21/19 00:00 57 12 111/48 (69) 98 Nasal Cannula 2.00 08/21/19 00:00 97 Nasal Cannula 2.00 08/20/19 23:30 62 13 110/55 (73) 98 Nasal Cannula 2.00 08/20/19 23:17 98 Nasal Cannula 2.00 08/20/19 23:00 60 12 112/63 (79) 97 Nasal Cannula 2.00 08/20/19 22:48 36.5 62 15 100/51 96 Nasal Cannula 2.00 08/20/19 22:45 62 15 100/51 (67) 98 Nasal Cannula 2.00 08/20/19 22:33 36.6 61 14 109/48 97 Nasal Cannula 2.00 08/20/19 22:30 63 12 109/48 (68) 97 Nasal Cannula 2.00 08/20/19 22:15 63 12 116/54 (74) 97 Nasal Cannula 2.00 08/20/19 22:01 64 08/20/19 22:00 65 13 101/48 (65) 96 Nasal Cannula 2.00 08/20/19 21:51 36.2 64 12 94/44 (61) 98 Nasal Cannula 2.00 08/20/19 21:45 37.1 66 16 112/54 96 Nasal Cannula 1.00 08/20/19 21:25 65 14 100/52 (68) 97 Nasal Cannula 2.00 08/20/19 21:00 66 16 112/54 (73) 97 Nasal Cannula 2.00 08/20/19 20:50 64 14 107/51 (69) 97 Nasal Cannula 2.00 08/20/19 20:20 37.1 67 13 102/53 (69) 97 Nasal Cannula 3.00 08/20/19 20:19 77 84/48 08/20/19 20:15 73 13 88/48 (61) 97 Nasal Cannula 3.00 08/20/19 20:00 68 12 83/54 (64) 96 Nasal Cannula 3.00 08/20/19 19:30 75 16 84/45 (58) 91 Nasal Cannula 3.00 08/20/19 19:00 79 17 91/49 (63) 92 Room Air 3.00 08/20/19 18:56 38.6 08/20/19 18:50 83 23 104/68 (80) 97 Nasal Cannula 3.00 08/20/19 18:44 96 Nasal Cannula 3.00 08/20/19 18:30 84 22 108/54 (72) 97 Nasal Cannula 3.00 08/20/19 18:20 38.6 86 18 102/69 (80) 96 Nasal Cannula 3.00 I & O 08/21/19 07:00 Intake Total 5710.5 ml Output Total 300 ml Balance 5410.5 ml Height & Weight Height: 5'3.00" Weight: 150lbs. 6.0oz. 68.366237bb; 35.06 BMI Method:Stated General Appearance: No Apparent Distress, WD/WN, Other (wheezing, appears chronically ill and very poor state of health per baseline. Left [id number]-prb-[id number] amputation. With 3l O2 he is at 94%. bp 102/73. hr 80s. ) Neck: Full Range of Motion, Normal Inspection Respiratory: No Respiratory Distress, Decreased Breath Sounds, Wheezing Cardiovascular: Regular Rate, Rhythm Capillary Refill: Less Than 3 Seconds Gastrointestinal: normal bowel sounds, non tender, soft, no organomegaly, no pulsatile mass Extremity: Other (No palpable posterior tibial pulse but there is dopplerable blood flow noted. The foot is warm. There is mild erythema over the puncture site to the right anterior groin. There is also some erythema to the inguinal folds consistent with intertrigo.he has a left [id number] amputee) Neurologic/Psychiatric: Alert, Oriented x3 Skin: Normal Color, Warm/Dry Results Lab Laboratory Tests 08/20/19 18:20 08/21/19 02:35 Assessment/Plan Assessment/Plan Severe sepsis with shock suspected pneumonia -Zosyn add Zyvox -Miller cultures pending -COVID is pending -influenza is negative NORIS ZHU DO Aug 21, 2019 06:20
--- NOTE | 2019-08-21 08:35 | History & Physicial ---
History of Present Illness History of Present Illness Reason for visit/HPI PT IS A 74 Y/O MALE WHO IS KNOWN TO ME FROM CLINIC. HE STATES THAT HE HAD BEEN FEELING SLOWLY PROGRESSIVELY ILL OVER THE PAST FEW DAYS. HIS CAREGIVER CALLED THE DOCTOR CALL LINE AND SHE WAS WORRIED ABOUT HIM BECAUSE OF A FEVER AND APPEARANCE OF BEING CLAMMY. HE STATES, THIS MORNING, THAT HE IS DOING WELL AND WANTS TO GET UP AND MOVE AROUND. HE DENIES SHORTNESS OF BREATH, ABDOMINAL PAIN. Date of Admission Aug 20, 2019 at 20:06 Date Seen by a Provider: Aug 21, 2019 Time Seen by a Provider: 08:00 I consulted on this patient on 08/21/19 08:35 Attending Physician Otto Alvarez MD Admitting Physician Otto Alvarez MD Consult DR. ZHU Allergies and Home Medications Allergies Coded Allergies: morphine (Verified Allergy, Unknown, 09/01/16) Home Medications Allopurinol 100 Mg Tablet, 100 MG PO DAILY, (Reported) Aspirin 81 Mg Tabec, 81 MG PO DAILY, (Reported) Carvedilol 6.25 Mg Tablet, 6.25 MG PO BID, (Reported) HOLD FOR SBP<110 Docusate Sodium 100 Mg Capsule, 100 MG PO Mo, (Reported) Famotidine 20 Mg Tablet, 20 MG PO BID Prescribed by: RAISSA OLSON on 09/14/16 0205 Gabapentin 300 Mg Capsule, 300 MG PO TID, (Reported) Hydrocodone Bit/Acetaminophen 1 Each Tablet, 1 TAB PO Q6H PRN for PAIN-MODERATE, (Reported) Lisinopril 5 Mg Tablet, 5 MG PO 1700, (Reported) Magnesium Oxide 400 Mg Tablet, 400 MG PO BID, (Reported) Multivitamin 1 Each Tablet, 1 TAB PO DAILY, (Reported) Pantoprazole Sodium 40 Mg Tablet.dr, 40 MG PO DAILY, (Reported) Warfarin Sodium 2 Mg Tablet, 2 MG PO SuSa@1200, (Reported) Warfarin Sodium 2 Mg Tablet, 4 MG PO MoTuWeThFr@1200 HOLD UNTIL 09/07/16 - RESTART ROUTINE COUMADIN ON 09/07/16 Prescribed by: OTTO ALVAREZ on 09/04/16 0924 Patient Home Medication List Home Medication List Reviewed: Yes Past Tdcfzcw-Lzzwkf-Wqkzic Hx Patient Social History Marrital Status: single Employed/Student: retired Alcohol Use: Denies Use Number of Drinks Today: GG Alcohol Beverage of Choice: Whiskey Recreational Drug Use: No (ETOH) Drug of Choice: Wild [place] Smoking Status: Former Smoker Former Smoker, Quit: Mar 09, 2015 Type Used: Cigarettes 2nd Hand Smoke Exposure: No Physical Abuse Screen: No Sexual Abuse: No Recent Foreign Travel: No Contact w/other who traveled: No Recent Hopitalizations: No Recent Infectious Disease Expo: No Immunizations Up To Date Tetanus Booster (TDap): Less than 5yrs Pediatric: Yes Seasonal Allergies Seasonal Allergies: Yes Surgeries Yes (CABG,VALVE REPLACED,PLATE IN LEG,VASECTOMY,AKA) CABG, Coronary Stent, Open Heart Surgery, Valve Replacement, Vascular Surgery Respiratory Yes Currently Using CPAP: No Currently Using BIPAP: No Cardiovascular Yes Chronic Edema/Swelling, Coronary Artery Disease, High Cholesterol, Hypertension, Peripheral Vascular, Valvular Heart Disease Neurological Yes Neuropathy Reproductive System Hx Reproductive Disorders: No Sexually Transmitted Disease: No HIV/AIDS: No Genitourinary No Gastrointestinal Yes Diverticulosis Musculoskeletal Yes (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 halfway anticoag therapy.) Adverse Reaction to a Blood Tr: No Reviewed Nursing Assessment Reviewed/Agree w Nursing PMH: Yes Family Medical History Significant Family History: Heart Disease, Hypertension, Psychiatric Problems Review of Systems Constitutional: No chills; fever, malaise, weakness EENTM: No hoarseness, No throat pain Respiratory: No cough, No dyspnea on exertion, No short of breath Cardiovascular: Hx of Intervention, vascular heart diseas Gastrointestinal: No abdominal pain, No loss of appetite, No nausea, No vomiting Genitourinary: no symptoms reported Musculoskeletal: No back pain; muscle weakness Skin: No change in color; rash (IN GROIN) Psychiatric/Neurological: Denies Anxiety, Denies Depressed; Weakness All Other Systems Reviewed Negative Unless Noted: Yes Physical Exam Vital Signs Vital Signs - First Documented 08/20/19 18:20 Temp 38.6 Pulse 86 Resp 18 B/P (MAP) 102/69 (80) Pulse Ox 96 O2 Delivery Nasal Cannula O2 Flow Rate 3.00 Capillary Refill : Less Than 3 Seconds Height, Weight, BMI Height: 5'3.00" Weight: 150lbs. 6.0oz. 68.139040ee; 35.06 BMI Method:Stated General Appearance: No Apparent Distress, WD/WN Eyes: Bilateral Eye Normal Inspection, Bilateral Eye PERRL, Bilateral Eye EOMI HEENT: PERRL/EOMI, Pharynx Normal Neck: Full Range of Motion, Non Tender, Supple Respiratory: Chest Non Tender, Lungs Clear, Normal Breath Sounds Cardiovascular: Regular Rate, Rhythm, Systolic Murmur Gastrointestinal: Normal Bowel Sounds, Non Tender, Soft Rectal: Deferred Extremity: No Calf Tenderness (ON RIGHT), Other (LEFT ABOVE THE KNEE AMPUTATION TO UPPER THIGH, POOR CAP REFILL - RIGHT FOOT (CHRONIC)) Neurologic/Psychiatric: Alert, Oriented x3, No Motor/Sensory Deficits, Normal Mood/Affect Skin: Cool; No Diaphoresis, No Erythema, No Mottled Lymphatic: No Adenopathy Assessment/Plan Assessment and Plan SEVERE SEPSIS HYPOTENSION LEUKOCYTOSIS ACUTE RENAL FAILURE ON CHRONIC RENAL FAILURE CHRONIC ANTICOAGULATION MECHANICAL AORTIC REPLACEMENT VALVE PERIPHERAL NEUROPATHY HX OF CHRONIC HYPERTENSION SEVERE SEPSIS - PT ON PRESSOR SUPPORT, CONTINUE TO WEAN ABLE - SUSPECTED PNEUMONIA ON IV ANTIBIOTICS - COVID PENDING HYPOTENSION - ON PRESSOR SUPPORT LEUKOCYTOSIS - CONTINUE WITH IV ANTIBIOTICS, MONITOR LABS SERIALLY, ANTICIPATE IMPROVEMENT TREATMENT WITH ANTIBIOTICS ACUTE RENAL FAILURE ON CHRONIC RENAL FAILURE - ON FLUIDS - CONTINUE TO CLOSELY MONITOR RENAL FUNCTION ON PRESSOR SUPPORT CHRONIC ANTICOAGULATION - ON COUMADIN - GIVE DOSE OF LOVENOX TODAY PT WAS GIVEN VITAMIN K PRIOR TO PLACEMENT OF LINE. MECHANICAL AORTIC REPLACEMENT VALVE - ON CHRONIC ANTICOAGULATION PERIPHERAL NEUROPATHY - RESTART GABAPENTIN DURING HOSPITALIZATION - WILL START TOMORROW HX OF CHRONIC HYPERTENSION - CURRENTLY ON PRESSOR SUPPORT - CONTINUE WITH MONITORING. EVENTUALLY, ONCE SEPSIS IS RESOLVED, WILL HAVE TO RESTART ANTI-HYPERTENSIVES GI PROPHYLAXIS WITH PPI DVT PROPHYLAXIS ON COUMADIN CHRONICALLY - Admission Diagnosis SEVERE SEPSIS HYPOTENSION LEUKOCYTOSIS ACUTE RENAL FAILURE ON CHRONIC RENAL FAILURE CHRONIC ANTICOAGULATION MECHANICAL AORTIC REPLACEMENT VALVE PERIPHERAL NEUROPATHY HX OF CHRONIC HYPERTENSION Admission Status: Inpatient Order (span 2 midnights) Reason for Inpatient Admission: INPATIENT ADMISSION FOR SEPSIS AND HYPOTENSION WITH NEED FOR PRESSOR SUPPORT AND IV FLUIDS - WILL REQUIRE AT LEAST 72 HOURS IN HOSPITAL, MAYBE LONGER FOR STABILIZATION Clinical Quality Measures DVT/VTE Risk/Contraindication: Risk Factor Score Per Nursin RFS Level Per Nursing on Admit: 4+=Very High OTTO ALVAREZ MD Aug 21, 2019 08:35
[2019-08-21] MEDS: NYSTATIN CREAM (MYCOSTATIN) 30 GM TUBE TP SCH ×3 (09:37→20:04)
[2019-08-21] MEDS: LINEZOLID IVPB 300 ML IV SCH ×2 (09:37→20:03)
[2019-08-21 09:48] LABS: INR 1.8 (0.8-1.4); PROTHROMBIN TIME PATIENT 21.4 SEC (12.2-14.7)
[2019-08-21] MEDS ORDERED: ENOXAPARIN 30 MG/0.3 ML (LOVENOX) SYR SC ONE (10:15)
[2019-08-21] MEDS ORDERED: PANTOPRAZOLE 40 MG (PROTONIX) TAB PO ONE (10:30)
--- NOTE | 2019-08-21 23:28 | NUR ---
Negative Covid results received. Dr. Alvarez notified and order received to take pt out of isolation.
[2019-08-22] VITALS (23 sets, daily range): BP systolic 84–125; BP diastolic 48–76
[2019-08-22] MEDS: VASOPRESSIN INJECTION 20 UNIT in NORMAL SALINE 100 ML IV SCH ×3 (00:48→16:54)
[2019-08-22] MEDS: NS IV 1000 ML 1,000 ML IV SCH ×4 (01:49→18:00)
[2019-08-22 02:49] LABS: BASOPHILS % (AUTO) 0 % (0-10); EOSINOPHILS % (AUTO) 0 % (0-10); HEMATOCRIT 26 % (40-54); HEMOGLOBIN 8.8 G/DL (13.3-17.7); LYMPHOCYTES # (AUTO) 1.2 X 10^3 (1.0-4.0); LYMPHOCYTES % (AUTO) 7 % (12-44); MEAN CORPUSCULAR HEMOGLOBIN 30 PG (25-34); MEAN CORPUSCULAR HGB CONC 34 G/DL (32-36); MEAN CORPUSCULAR VOLUME 90 FL (80-99); MEAN PLATELET VOLUME 11.5 FL (7.4-10.4); MONOCYTES # (AUTO) 0.9 X 10^3 (0.0-1.0); MONOCYTES % (AUTO) 5 % (0-12); NEUTROPHILS % (AUTO) 88 % (42-75); PLATELET COUNT 139 10^3/uL (130-400); RED CELL DISTRIBUTION WIDTH 14.1 % (10.0-14.5); WHITE BLOOD COUNT 18.1 10^3/uL (4.3-11.0)
[2019-08-22 03:02] LABS: CALCIUM 7.9 MG/DL (8.5-10.1); CREATININE SERUM 1.52 MG/DL (0.60-1.30); MAGNESIUM 1.5 MG/DL (1.6-2.4); PHOSPHORUS 2.8 MG/DL (2.3-4.7); POTASSIUM 3.9 MMOL/L (3.6-5.0)
[2019-08-22] MEDS: NOREPINEPHRINE 4 MG/250 ML 250 ML IV SCH ×6 (03:03→19:52)
[2019-08-22] MEDS: POTASSIUM CL 10MEQ/50ML IVPB 50 ML IV SCH (03:29)
[2019-08-22] MEDS: KCL 20 MEQ TAB (K-DUR) PO SCH (03:30)
[2019-08-22] MEDS: MAGNESIUM 1 GM/100 ML IVPB 100 ML IV SCH (03:39)
[2019-08-22] MEDS ORDERED: MAGNESIUM 1 GM/100 ML IVPB 100 ML IV ONE ×2 (03:45)
[2019-08-22] MEDS: PIPERACILLIN/TAZOBACTAM (BULK) 4.5 GM in NS (IVPB) 100 ML IV SCH ×3 (05:14→21:14)
[2019-08-22] MEDS ORDERED: LACTATED RINGERS 1,000 ML IV SCH (05:45)
--- NOTE | 2019-08-22 05:53 | Pulmonary Progress Note ---
Subjective Time Seen by a Provider: 05:48 Subjective/Events-last exam Pt continues to run fevers. Sepsis Event Evaluation Height, Weight, BMI Height: 5'3.00" Weight: 150lbs. 6.0oz. 68.345351hz; 35.06 BMI Method:Stated Focused Exam Lactate Level 08/20/19 18:20: Lactic Acid Level 1.21 Exam Exam Vital Signs Date Time Temp Pulse Resp B/P (MAP) Pulse Ox O2 Delivery O2 Flow Rate FiO2 08/22/19 05:00 70 13 111/54 (73) 97 Nasal Cannula 2.00 08/22/19 04:00 69 25 125/54 (77) 97 Nasal Cannula 2.00 08/22/19 04:00 96 Nasal Cannula 2.00 08/22/19 03:03 63 111/60 08/22/19 03:00 66 19 111/60 (77) 97 Nasal Cannula 2.00 08/22/19 02:00 83 16 97/51 (66) 97 Nasal Cannula 2.00 08/22/19 01:00 69 16 84/56 (65) 97 Nasal Cannula 2.00 08/22/19 01:00 70 08/22/19 00:15 38.4 08/22/19 00:15 38.4 08/22/19 00:00 96 Nasal Cannula 2.00 08/22/19 00:00 78 21 102/59 (73) 97 Nasal Cannula 2.00 08/21/19 23:00 79 24 98/58 (71) 97 Nasal Cannula 2.00 08/21/19 22:00 70 17 106/54 (71) 97 Nasal Cannula 2.00 08/21/19 21:00 75 23 93/64 (74) 99 Nasal Cannula 2.00 08/21/19 20:01 37.3 08/21/19 20:00 96 Nasal Cannula 2.00 08/21/19 20:00 75 31 106/76 (86) 100 Nasal Cannula 2.00 08/21/19 19:33 100 Nasal Cannula 2.00 08/21/19 19:00 74 08/21/19 19:00 70 18 111/58 (75) 100 Nasal Cannula 2.00 08/21/19 18:00 72 31 107/53 (71) 99 Nasal Cannula 2.00 08/21/19 17:00 68 92/69 (77) 98 Nasal Cannula 2.00 08/21/19 16:00 69 15 98/52 (67) 99 Nasal Cannula 2.00 08/21/19 16:00 96 Nasal Cannula 2.00 08/21/19 15:05 62 89/46 08/21/19 15:00 34.1 63 25 95/62 (73) 98 Nasal Cannula 2.00 08/21/19 15:00 36.9 08/21/19 14:47 98 Nasal Cannula 2.00 08/21/19 14:00 33.7 63 23 97/54 (68) 96 Nasal Cannula 2.00 08/21/19 13:00 33.4 67 18 98/64 (75) 97 Nasal Cannula 2.00 08/21/19 12:22 48 08/21/19 12:10 96 Nasal Cannula 2.00 08/21/19 12:00 34.7 56 15 104/81 (89) 100 Nasal Cannula 2.00 08/21/19 11:00 34.4 52 8 79/48 (58) 98 Nasal Cannula 2.00 08/21/19 10:00 34.1 66 13 92/60 (71) 99 Nasal Cannula 2.00 08/21/19 09:00 62 17 114/71 (85) 99 Nasal Cannula 2.00 08/21/19 09:00 33.8 08/21/19 08:00 96 Nasal Cannula 2.00 08/21/19 08:00 47 7 107/50 (69) 98 Nasal Cannula 2.00 08/21/19 07:00 48 7 95/47 (63) 97 Nasal Cannula 2.00 08/21/19 07:00 51 08/21/19 06:36 49 102/48 08/21/19 06:00 50 12 96/46 (63) 95 Nasal Cannula 2.00 I & O 08/22/19 06:59 Intake Total 3470 ml Output Total 1525 ml Balance 1945 ml Height & Weight Height: 5'3.00" Weight: 150lbs. 6.0oz. 68.760828jm; 35.06 BMI Method:Stated General Appearance: No Apparent Distress, WD/WN HEENT: PERRL/EOMI, Pharynx Normal Neck: Full Range of Motion, Non Tender, Supple Respiratory: Chest Non Tender, Lungs Clear, Normal Breath Sounds Cardiovascular: Regular Rate, Rhythm, Systolic Murmur Capillary Refill: Less Than 3 Seconds Gastrointestinal: normal bowel sounds, non tender, soft, no organomegaly, no pulsatile mass Extremity: No Calf Tenderness (ON RIGHT), Other (LEFT ABOVE THE KNEE AMPUTATION TO UPPER THIGH, POOR CAP REFILL - RIGHT FOOT (CHRONIC)) Neurologic/Psychiatric: Alert, Oriented x3, No Motor/Sensory Deficits, Normal Mood/Affect Skin: Cool; No Diaphoresis, No Erythema, No Mottled Lymphatic: No Adenopathy Results Lab Laboratory Tests 08/20/19 18:20 08/21/19 02:35 08/22/19 02:25 Assessment/Plan Assessment/Plan Severe sepsis with shock suspected pneumonia -Zosyn add Zyvox -Miller cultures pending -COVID Nasal swab is negative however COVID Ab is still pending. Pt is still running fevers. -Place pt back in isolation at least until COVID Ab returns. Pt was taken out of isolation around 11 last night. -influenza is negative Bacteremia with gram positive cocci -repeat Blood cultures -Repeat LA -Continue Current Ab -Pt has had aortic valve replacment in past with mechanical valve -Pt is on Coumadin chronically Acute on chronic renal failure with metabolic acidosis -IVF -Monitor Anemia -Monitor NORIS ZHU DO Aug 22, 2019 05:53
[2019-08-22] MEDS: NYSTATIN CREAM (MYCOSTATIN) 30 GM TUBE TP SCH ×3 (07:59→21:13)
[2019-08-22] MEDS: PANTOPRAZOLE 40 MG (PROTONIX) TAB PO SCH (07:59)
[2019-08-22] MEDS: LINEZOLID IVPB 300 ML IV SCH (07:59)
--- NOTE | 2019-08-22 08:34 | Progress Note ---
Subjective Subjective Date Seen by Provider: Aug 22, 2019 Time Seen by Provider: 08:45 PT REPORTS THAT HE IS FEELING BETTER, STAFF NOTES THAT HIS TEMPERATURE HAS IMPROVED, HE IS STILL ON THE BEARHUGGER BODY WARMER. STAFF REPORTS THAT THEY WERE UNABLE TO GET THE THREE BLOOD CULTURES AND WILL HAVE TO GET LAB IN TO DRAW THE CULTURES. PT DENIES ABDOMINAL PAIN, NAUSEA, CHEST PAIN, SHORTNESS OF BREATH. Review of Systems General: No Chills; Fatigue; No Malaise HEENT: No Visual Changes, No Dysphasia, No Sore Throat Pulmonary: No Dyspnea, No Cough Cardiovascular: No: Chest Pain, Palpitations Gastrointestinal: No: Nausea, Abdominal Pain Genitourinary: No Dysuria, No Frequency Neurological: Weakness; No: Confusion All Other Systems Reviewed All Other Systems Reviewed: Yes Objective Exam Vital Signs Vital Signs - First Documented 08/20/19 18:20 Temp 38.6 Pulse 86 Resp 18 B/P (MAP) 102/69 (80) Pulse Ox 96 O2 Delivery Nasal Cannula O2 Flow Rate 3.00 Capillary Refill : Less Than 3 Seconds General Appearance: No Apparent Distress, WD/WN Eyes: Bilateral Eye Normal Inspection, Bilateral Eye PERRL, Bilateral Eye EOMI HEENT: PERRL/EOMI, Pharynx Normal Neck: Full Range of Motion, Non Tender, Supple Respiratory: Chest Non Tender, Lungs Clear, Normal Breath Sounds Cardiovascular: Regular Rate, Rhythm, Systolic Murmur Gastrointestinal: Normal Bowel Sounds, Non Tender, Soft Rectal: Deferred Extremity: No Calf Tenderness (ON RIGHT), Other (LEFT ABOVE THE KNEE AMPUTATION TO UPPER THIGH, POOR CAP REFILL - RIGHT FOOT (CHRONIC)) Neurologic/Psychiatric: Alert, Oriented x3, No Motor/Sensory Deficits, Normal Mood/Affect Skin: Cool; No Diaphoresis, No Erythema, No Mottled Lymphatic: No Adenopathy Results Lab Laboratory Tests 08/21/19 09:12: Prothrombin Time 21.4H, INR Comment 1.8H 08/22/19 02:25: White Blood Count 18.1H, Red Blood Count 2.93L, Hemoglobin 8.8L, Hematocrit 26L, Mean Corpuscular Volume 90, Mean Corpuscular Hemoglobin 30, Mean Corpuscular Hemoglobin Concent 34, Red Cell Distribution Width 14.1, Platelet Count 139, Mean Platelet Volume 11.5H, Neutrophils (%) (Auto) 88H, Lymphocytes (%) (Auto) 7L, Monocytes (%) (Auto) 5, Eosinophils (%) (Auto) 0, Basophils (%) (Auto) 0, Neutrophils # (Auto) 16.0H, Lymphocytes # (Auto) 1.2, Monocytes # (Auto) 0.9, Eosinophils # (Auto) 0.0, Basophils # (Auto) 0.0, Sodium Level 137, Potassium Level 3.9, Chloride Level 108H, Carbon Dioxide Level 18L, Anion Gap 11, Blood Urea Nitrogen 22H, Creatinine 1.52H, Estimat Glomerular Filtration Rate 45, BUN/Creatinine Ratio 14, Glucose Level 112H, Calcium Level 7.9L, Phosphorus Level 2.8, Magnesium Level 1.5L 08/22/19 06:20: Lactic Acid Level 0.90, Procalcitonin 1.02H Microbiology 08/20/19 MRSA Screen - Final, Complete 08/20/19 Urine Culture - Final, Complete Normal skin cat 08/20/19 Blood Culture - Preliminary, Resulted Gram Positive Cocci Assessment/Plan Assessment/Plan Admission Dx SEVERE SEPSIS HYPOTENSION LEUKOCYTOSIS ACUTE RENAL FAILURE ON CHRONIC RENAL FAILURE CHRONIC ANTICOAGULATION MECHANICAL AORTIC REPLACEMENT VALVE PERIPHERAL NEUROPATHY HX OF CHRONIC HYPERTENSION SEVERE SEPSIS - PT ON PRESSOR SUPPORT, CONTINUE TO WEAN ABLE - SUSPECTED PNEUMONIA ON IV ANTIBIOTICS - COVID ANTIGEN NEGATIVE, COVID AB PENDING - TWO POSITIVE BLOOD CULTURES - PENDING HYPOTENSION - ON PRESSOR SUPPORT LEUKOCYTOSIS - IMPROVED - - - CONTINUE WITH IV ANTIBIOTICS, MONITOR LABS SERIALLY, ANTICIPATE IMPROVEMENT TREATMENT WITH ANTIBIOTICS ACUTE RENAL FAILURE ON CHRONIC RENAL FAILURE - IMPROVED - ON FLUIDS - CONTINUE TO CLOSELY MONITOR RENAL FUNCTION ON PRESSOR SUPPORT CHRONIC ANTICOAGULATION - ON COUMADIN - GAVE DOSE OF LOVENOX TODAY PT WAS GIVEN VITAMIN K PRIOR TO PLACEMENT OF LINE. MECHANICAL AORTIC REPLACEMENT VALVE - ON CHRONIC ANTICOAGULATION PERIPHERAL NEUROPATHY - RESTART GABAPENTIN ONCE MEDICATION LIST HAS BEEN RECONCILED HX OF CHRONIC HYPERTENSION - CURRENTLY ON PRESSOR SUPPORT - CONTINUE WITH MONITORING. EVENTUALLY, ONCE SEPSIS IS RESOLVED, WILL HAVE TO RESTART ANTI-HYPERTENSIVES GI PROPHYLAXIS WITH PPI DVT PROPHYLAXIS ON COUMADIN CHRONICALLY - Admission Dx SEVERE SEPSIS HYPOTENSION LEUKOCYTOSIS ACUTE RENAL FAILURE ON CHRONIC RENAL FAILURE CHRONIC ANTICOAGULATION MECHANICAL AORTIC REPLACEMENT VALVE PERIPHERAL NEUROPATHY HX OF CHRONIC HYPERTENSION Clinical Quality Measures Admission Status Admission Dx SEVERE SEPSIS HYPOTENSION LEUKOCYTOSIS ACUTE RENAL FAILURE ON CHRONIC RENAL FAILURE CHRONIC ANTICOAGULATION MECHANICAL AORTIC REPLACEMENT VALVE PERIPHERAL NEUROPATHY HX OF CHRONIC HYPERTENSION DVT/VTE Risk/Contraindication: Risk Factor Score Per Nursin RFS Level Per Nursing on Admit: 4+=Very High Contraindications-Pharm: Other *list below* Other: PT ON COUMADIN OTTO MILLER MD Aug 22, 2019 08:34
[2019-08-22 10:14] LABS: INR 1.5 (0.8-1.4); PROTHROMBIN TIME PATIENT 18.8 SEC (12.2-14.7)
[2019-08-22] MEDS ORDERED: VANCOMYCIN INJECTION 0.1 MG in NS (IVPB) 250 ML IV SCH (10:15)
--- NOTE | 2019-08-22 10:25 | NUR ---
CR 1.52; CR CL ~45; WT 99 KG; VANCO 1750 MG IV BOLUS THEN 1500 MG IV Q24H; TROUGH AFTER 2ND DOSE
[2019-08-22] MEDS ORDERED: VANCOMYCIN 1,750 MG/NS 500 ML IVPB IV NR ×2 (10:30)
--- NOTE | 2019-08-22 11:08 | Physician Query Clarification ---
PQ-Conflicting Diagnosis Admission/Discharge Admission Date: Aug 20, 2019 at 20:06 Discharge Date: The medical record reflects the following clinical scenario: History/Risk Factors: Severe Sepsis Hypotension Clinical Findings: 08/19 BP 108/54 on admission, pressure still 83/54 after 2 liter bolus. Persistently through 08/21 102/55. Treatment:Patient on pressor support and IV fluids. Question: Do you agree with the impression of the Severe sepsis with septic shock per Rolando Dietrich APRN and Dr. Deras? Please document a response in Progress Note or Discharge Summary. 1. Yes 2. No 3. Other, with explanation of clinical findings 4. Clinically undetermined, no explanation for clinical findings. Please remember a lack of response to the above will prompt a phone page by [facility]Coding staff. In responding to this query, please exercise your independent professional judgment. The purpose of this communication is to more accurately reflect the complexity of your patients condition. The fact that a question is asked does not imply that any particular answer is desired or expected. Thank you for your timely response to this clarification. Requestors name: [facility], [facility] Phone Ext [phone] or [phone] THIS PHYSICIAN QUERY FORM IS A PERMANENT PART OF THE MEDICAL RECORD KARI THOMPSON Aug 22, 2019 11:08
[2019-08-23] VITALS (24 sets, daily range): BP systolic 86–131; BP diastolic 43–74
[2019-08-23] MEDS: VASOPRESSIN INJECTION 20 UNIT in NORMAL SALINE 100 ML IV SCH ×3 (01:58→17:31)
[2019-08-23] MEDS: NS IV 1000 ML 1,000 ML IV SCH ×3 (01:58→18:03)
[2019-08-23] MEDS: NOREPINEPHRINE 4 MG/250 ML 250 ML IV SCH ×4 (02:07→17:31)
[2019-08-23 03:21] LABS: BASOPHILS % (AUTO) 0 % (0-10); EOSINOPHILS % (AUTO) 0 % (0-10); HEMATOCRIT 25 % (40-54); HEMOGLOBIN 8.1 G/DL (13.3-17.7); LYMPHOCYTES # (AUTO) 0.8 X 10^3 (1.0-4.0); LYMPHOCYTES % (AUTO) 5 % (12-44); MEAN CORPUSCULAR HEMOGLOBIN 30 PG (25-34); MEAN CORPUSCULAR HGB CONC 33 G/DL (32-36); MEAN CORPUSCULAR VOLUME 90 FL (80-99); MEAN PLATELET VOLUME 11.1 FL (7.4-10.4); MONOCYTES # (AUTO) 0.5 X 10^3 (0.0-1.0); MONOCYTES % (AUTO) 3 % (0-12); NEUTROPHILS # (AUTO) 13.8 X 10^3 (1.8-7.8); NEUTROPHILS % (AUTO) 91 % (42-75); PLATELET COUNT 130 10^3/uL (130-400); RED CELL DISTRIBUTION WIDTH 14.6 % (10.0-14.5); WHITE BLOOD COUNT 15.1 10^3/uL (4.3-11.0)
[2019-08-23 03:46] LABS: BUN/CREATININE RATIO 9; CALCIUM 7.8 MG/DL (8.5-10.1); CARBON DIOXIDE 19 MMOL/L (21-32); CHLORIDE 109 MMOL/L (98-107); CREATININE SERUM 1.08 MG/DL (0.60-1.30); GFR ESTIMATED > 60; GLUCOSE 88 MG/DL (70-105); MAGNESIUM 1.6 MG/DL (1.6-2.4); PHOSPHORUS 1.8 MG/DL (2.3-4.7); POTASSIUM 3.4 MMOL/L (3.6-5.0); SODIUM 137 MMOL/L (135-145)
[2019-08-23] MEDS: KCL 20 MEQ TAB (K-DUR) PO SCH (04:27)
[2019-08-23] MEDS: POTASSIUM CL 10MEQ/50ML IVPB 50 ML IV SCH ×3 (04:27→04:40)
[2019-08-23] MEDS: MAGNESIUM 1 GM/100 ML IVPB 100 ML IV SCH ×3 (04:27→04:40)
[2019-08-23] MEDS: PIPERACILLIN/TAZOBACTAM (BULK) 4.5 GM in NS (IVPB) 100 ML IV SCH ×3 (05:33→21:12)
--- NOTE | 2019-08-23 05:47 | Pulmonary Progress Note ---
Subjective Time Seen by a Provider: 05:42 Subjective/Events-last exam PT is still hypotensive. Sepsis Event Evaluation Height, Weight, BMI Height: 5'3.00" Weight: 150lbs. 6.0oz. 68.189481gk; 35.06 BMI Method:Stated Focused Exam Lactate Level 08/20/19 18:20: Lactic Acid Level 1.21 08/22/19 06:20: Lactic Acid Level 0.90 Exam Exam Vital Signs Date Time Temp Pulse Resp B/P (MAP) Pulse Ox O2 Delivery O2 Flow Rate FiO2 08/23/19 05:00 68 13 89/45 (60) 99 Nasal Cannula 2.00 08/23/19 04:39 36.2 08/23/19 04:00 73 18 98/49 (65) 98 Nasal Cannula 2.00 08/23/19 03:15 99 Nasal Cannula 2.00 08/23/19 03:14 38.3 08/23/19 03:13 38.3 Nasal Cannula 2.00 08/23/19 03:00 86 24 100/64 (76) 95 Nasal Cannula 2.00 08/23/19 02:00 81 18 91/74 (80) 99 Nasal Cannula 2.00 08/23/19 01:02 86 08/23/19 01:00 85 28 102/57 (72) 91 Nasal Cannula 2.00 08/23/19 00:05 75 19 113/58 (76) 100 Nasal Cannula 2.00 08/23/19 00:05 97 Nasal Cannula 2.00 08/22/19 23:15 36.8 08/22/19 23:00 80 25 119/67 (84) 96 Nasal Cannula 2.00 08/22/19 22:00 77 19 108/59 (75) 96 Nasal Cannula 2.00 08/22/19 21:00 72 23 108/63 (78) 97 Nasal Cannula 2.00 08/22/19 20:00 73 22 102/55 (71) 95 Nasal Cannula 2.00 08/22/19 19:45 98 Nasal Cannula 2.00 08/22/19 19:34 70 08/22/19 19:27 36.9 08/22/19 19:00 91 24 108/52 (70) 97 Nasal Cannula 2.00 08/22/19 18:34 98 2.00 08/22/19 18:00 74 14 98/52 (67) 96 Nasal Cannula 2.00 08/22/19 17:00 76 21 99 Nasal Cannula 2.00 08/22/19 16:00 69 27 108/48 (68) 97 Nasal Cannula 2.00 08/22/19 16:00 96 Nasal Cannula 2.00 08/22/19 15:00 71 26 118/62 (80) 95 Nasal Cannula 2.00 08/22/19 14:00 70 14 103/49 (67) 95 Nasal Cannula 2.00 08/22/19 13:00 72 32 105/59 (74) 96 Nasal Cannula 2.00 08/22/19 12:57 68 96/52 08/22/19 12:52 70 08/22/19 12:00 96 Nasal Cannula 2.00 08/22/19 12:00 66 16 98/55 (69) 97 Nasal Cannula 2.00 08/22/19 11:00 65 18 96/54 (68) 98 Nasal Cannula 2.00 08/22/19 10:00 68 17 103/51 (68) 97 Nasal Cannula 2.00 08/22/19 09:00 70 36 102/68 (79) 93 Nasal Cannula 2.00 08/22/19 08:00 71 19 102/76 (85) 98 Nasal Cannula 2.00 08/22/19 08:00 96 Nasal Cannula 2.00 08/22/19 07:00 60 19 120/69 (86) 99 Nasal Cannula 2.00 08/22/19 07:00 70 08/22/19 06:53 99 Nasal Cannula 2.00 08/22/19 06:00 65 25 102/55 (71) 97 Nasal Cannula 2.00 I & O 08/23/19 07:00 Intake Total 4812.5 ml Output Total 1625 ml Balance 3187.5 ml Height & Weight Height: 5'3.00" Weight: 150lbs. 6.0oz. 68.816166op; 35.06 BMI Method:Stated General Appearance: No Apparent Distress, WD/WN HEENT: PERRL/EOMI, Pharynx Normal Neck: Full Range of Motion, Non Tender, Supple Respiratory: Chest Non Tender, Lungs Clear, Normal Breath Sounds Cardiovascular: Regular Rate, Rhythm, Systolic Murmur Capillary Refill: Less Than 3 Seconds Gastrointestinal: normal bowel sounds, non tender, soft, no organomegaly, no pulsatile mass Extremity: No Calf Tenderness (ON RIGHT), Other (LEFT ABOVE THE KNEE AMPUTATION TO UPPER THIGH, POOR CAP REFILL - RIGHT FOOT (CHRONIC)) Neurologic/Psychiatric: Alert, Oriented x3, No Motor/Sensory Deficits, Normal Mood/Affect Skin: Cool; No Diaphoresis, No Erythema, No Mottled Lymphatic: No Adenopathy Results Lab Laboratory Tests 08/22/19 02:25 08/23/19 03:10 Assessment/Plan Assessment/Plan Severe sepsis with shock Tm 38.3 -Pt has been off Levophed since midnight. 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
[2019-08-23] MEDS ORDERED: HYDROCORTISONE 100 MG/2 ML (Solu-CORTEF) VIAL ONE (06:28)
[2019-08-23] MEDS: HYDROCORTISONE 100 MG/2 ML (Solu-CORTEF) VIAL IV SCH ×3 (06:33→21:12)
[2019-08-23] MEDS: PANTOPRAZOLE 40 MG (PROTONIX) TAB PO SCH (08:17)
[2019-08-23] MEDS: NYSTATIN CREAM (MYCOSTATIN) 30 GM TUBE TP SCH ×3 (08:18→21:12)
[2019-08-23 08:19] LABS: INR 1.5 (0.8-1.4); PROTHROMBIN TIME PATIENT 19.2 SEC (12.2-14.7)
--- NOTE | 2019-08-23 08:26 | Progress Note ---
Subjective Subjective Date Seen by Provider: Aug 23, 2019 Time Seen by Provider: 08:20 PT REPORTS THAT HE IS FEELING BETTER, STAFF NOTES THAT HIS TEMPERATURE HAS IMPROVED, HE NOTES THAT HE IS UNCOMFORTABLE IN THE BED AND DOES NOT UNDERSTAND WHY HE HAS TO STAY IN THE HOSPITAL. HE DENIES CHEST PAIN, SHORTNESS OF BREATH, NAUSEA, ABDOMINAL PAIN, DIZZINESS Review of Systems General: No Chills; Fatigue; No Malaise HEENT: No Visual Changes, No Dysphasia, No Sore Throat Pulmonary: No Dyspnea, No Cough Cardiovascular: No: Chest Pain, Palpitations Gastrointestinal: No: Nausea, Abdominal Pain Genitourinary: No Dysuria, No Frequency Neurological: Weakness; No: Confusion All Other Systems Reviewed All Other Systems Reviewed: Yes Objective Exam Vital Signs Vital Signs - First Documented 08/20/19 18:20 Temp 38.6 Pulse 86 Resp 18 B/P (MAP) 102/69 (80) Pulse Ox 96 O2 Delivery Nasal Cannula O2 Flow Rate 3.00 Capillary Refill : Less Than 3 Seconds General Appearance: No Apparent Distress, WD/WN Eyes: Bilateral Eye Normal Inspection, Bilateral Eye PERRL, Bilateral Eye EOMI HEENT: PERRL/EOMI, Pharynx Normal Neck: Full Range of Motion, Non Tender, Supple Respiratory: Chest Non Tender, Lungs Clear, Normal Breath Sounds Cardiovascular: Regular Rate, Rhythm, Systolic Murmur Gastrointestinal: Normal Bowel Sounds, Non Tender, Soft Rectal: Deferred Extremity: No Calf Tenderness (ON RIGHT), Other (LEFT ABOVE THE KNEE AMPUTATION TO UPPER THIGH, POOR CAP REFILL - RIGHT FOOT (CHRONIC)) Neurologic/Psychiatric: Alert, Oriented x3, No Motor/Sensory Deficits, Normal Mood/Affect Skin: Cool; No Diaphoresis, No Erythema, No Mottled Lymphatic: No Adenopathy Results Lab Laboratory Tests 08/22/19 09:35: Prothrombin Time 18.8H, INR Comment 1.5H 08/23/19 03:10: White Blood Count 15.1H, Red Blood Count 2.72L, Hemoglobin 8.1L, Hematocrit 25L, Mean Corpuscular Volume 90, Mean Corpuscular Hemoglobin 30, Mean Corpuscular Hemoglobin Concent 33, Red Cell Distribution Width 14.6H, Platelet Count 130, Mean Platelet Volume 11.1H, Neutrophils (%) (Auto) 91H, Lymphocytes (%) (Auto) 5L, Monocytes (%) (Auto) 3, Eosinophils (%) (Auto) 0, Basophils (%) (Auto) 0, Neutrophils # (Auto) 13.8H, Lymphocytes # (Auto) 0.8L, Monocytes # (Auto) 0.5, Eosinophils # (Auto) 0.0, Basophils # (Auto) 0.0, Sodium Level 137, Potassium Level 3.4L, Chloride Level 109H, Carbon Dioxide Level 19L, Anion Gap 9, Blood Urea Nitrogen 10, Creatinine 1.08, Estimat Glomerular Filtration Rate > 60, BUN/Creatinine Ratio 9, Glucose Level 88, Calcium Level 7.8L, Phosphorus Level 1.8L, Magnesium Level 1.6 08/23/19 07:45: Prothrombin Time 19.2H, INR Comment 1.5H Microbiology 08/20/19 MRSA Screen - Final, Complete 08/20/19 Blood Culture - Preliminary, Resulted No growth 08/20/19 Urine Culture - Final, Complete Normal skin cat Assessment/Plan Assessment/Plan Admission Dx SEVERE SEPSIS HYPOTENSION LEUKOCYTOSIS ACUTE RENAL FAILURE ON CHRONIC RENAL FAILURE CHRONIC ANTICOAGULATION MECHANICAL AORTIC REPLACEMENT VALVE PERIPHERAL NEUROPATHY HX OF CHRONIC HYPERTENSION SEVERE SEPSIS - PT ON PRESSOR SUPPORT, CONTINUE TO WEAN ABLE - SUSPECTED PNEUMONIA ON IV ANTIBIOTICS - COVID ANTIGEN NEGATIVE, COVID AB PENDING - TWO POSITIVE BLOOD CULTURES - PENDING HYPOTENSION - ON PRESSOR SUPPORT LEUKOCYTOSIS - IMPROVED - - - CONTINUE WITH IV ANTIBIOTICS, MONITOR LABS SERIALLY, ANTICIPATE IMPROVEMENT TREATMENT WITH ANTIBIOTICS ACUTE RENAL FAILURE ON CHRONIC RENAL FAILURE - IMPROVED - ON FLUIDS - CONTINUE TO CLOSELY MONITOR RENAL FUNCTION ON PRESSOR SUPPORT CHRONIC ANTICOAGULATION - ON COUMADIN - GAVE DOSE OF LOVENOX TODAY PT WAS GIVEN VITAMIN K PRIOR TO PLACEMENT OF LINE. MECHANICAL AORTIC REPLACEMENT VALVE - ON CHRONIC ANTICOAGULATION PERIPHERAL NEUROPATHY - RESTART GABAPENTIN ONCE MEDICATION LIST HAS BEEN RECONCILED HX OF CHRONIC HYPERTENSION - CURRENTLY ON PRESSOR SUPPORT - CONTINUE WITH MONITORING. EVENTUALLY, ONCE SEPSIS IS RESOLVED, WILL HAVE TO RESTART ANTI-HYPERTENSIVES GI PROPHYLAXIS WITH PPI DVT PROPHYLAXIS ON COUMADIN CHRONICALLY - CRITICAL CARE TIME 1 HOUR TOTAL Admission Dx SEVERE SEPSIS HYPOTENSION LEUKOCYTOSIS ACUTE RENAL FAILURE ON CHRONIC RENAL FAILURE CHRONIC ANTICOAGULATION MECHANICAL AORTIC REPLACEMENT VALVE PERIPHERAL NEUROPATHY HX OF CHRONIC HYPERTENSION SEVERE SEPSIS - PT ON PRESSOR SUPPORT, CONTINUE TO WEAN ABLE - SUSPECTED PNEUMONIA ON IV ANTIBIOTICS - COVID ANTIGEN NEGATIVE, COVID AB PENDING - TWO POSITIVE BLOOD CULTURES - PENDING HYPOTENSION - ON PRESSOR SUPPORT LEUKOCYTOSIS - IMPROVED - - - CONTINUE WITH IV ANTIBIOTICS, MONITOR LABS SERIALLY, ANTICIPATE IMPROVEMENT TREATMENT WITH ANTIBIOTICS ACUTE RENAL FAILURE ON CHRONIC RENAL FAILURE - IMPROVED - ON FLUIDS - CONTINUE TO CLOSELY MONITOR RENAL FUNCTION ON PRESSOR SUPPORT CHRONIC ANTICOAGULATION - ON COUMADIN - GAVE DOSE OF LOVENOX TODAY PT WAS GIVEN VITAMIN K PRIOR TO PLACEMENT OF LINE. MECHANICAL AORTIC REPLACEMENT VALVE - ON CHRONIC ANTICOAGULATION PERIPHERAL NEUROPATHY - RESTART GABAPENTIN ONCE MEDICATION LIST HAS BEEN RECONCILED HX OF CHRONIC HYPERTENSION - CURRENTLY ON PRESSOR SUPPORT - CONTINUE WITH MONITORING. EVENTUALLY, ONCE SEPSIS IS RESOLVED, WILL HAVE TO RESTART ANTI-HYPERTENSIVES GI PROPHYLAXIS WITH PPI DVT PROPHYLAXIS ON COUMADIN CHRONICALLY - Clinical Quality Measures Admission Status Admission Dx SEVERE SEPSIS HYPOTENSION LEUKOCYTOSIS ACUTE RENAL FAILURE ON CHRONIC RENAL FAILURE CHRONIC ANTICOAGULATION MECHANICAL AORTIC REPLACEMENT VALVE PERIPHERAL NEUROPATHY HX OF CHRONIC HYPERTENSION SEVERE SEPSIS - PT ON PRESSOR SUPPORT, CONTINUE TO WEAN ABLE - SUSPECTED PNEUMONIA ON IV ANTIBIOTICS - COVID ANTIGEN NEGATIVE, COVID AB PENDING - TWO POSITIVE BLOOD CULTURES - PENDING HYPOTENSION - ON PRESSOR SUPPORT LEUKOCYTOSIS - IMPROVED - - - CONTINUE WITH IV ANTIBIOTICS, MONITOR LABS SERIALLY, ANTICIPATE IMPROVEMENT TREATMENT WITH ANTIBIOTICS ACUTE RENAL FAILURE ON CHRONIC RENAL FAILURE - IMPROVED - ON FLUIDS - CONTINUE TO CLOSELY MONITOR RENAL FUNCTION ON PRESSOR SUPPORT CHRONIC ANTICOAGULATION - ON COUMADIN - GAVE DOSE OF LOVENOX TODAY PT WAS GIVEN VITAMIN K PRIOR TO PLACEMENT OF LINE. MECHANICAL AORTIC REPLACEMENT VALVE - ON CHRONIC ANTICOAGULATION PERIPHERAL NEUROPATHY - RESTART GABAPENTIN ONCE MEDICATION LIST HAS BEEN RECONCILED HX OF CHRONIC HYPERTENSION - CURRENTLY ON PRESSOR SUPPORT - CONTINUE WITH MONITORING. EVENTUALLY, ONCE SEPSIS IS RESOLVED, WILL HAVE TO RESTART ANTI-HYPERTENSIVES GI PROPHYLAXIS WITH PPI DVT PROPHYLAXIS ON COUMADIN CHRONICALLY - DVT/VTE Risk/Contraindication: Risk Factor Score Per Nursin RFS Level Per Nursing on Admit: 4+=Very High Contraindications-Pharm: Other *list below* Other: PT ON COUMADIN OTTO MILLER MD Aug 23, 2019 08:26
[2019-08-23] MEDS ORDERED: ENOXAPARIN 30 MG/0.3 ML (LOVENOX) SYR SC SCH (08:30)
[2019-08-23] MEDS ORDERED: POTASSIUM PHOSPHATE INJ 30 MM in NS (IVPB) 250 ML IV NR (09:00)
[2019-08-23 09:19] LABS: RSV PCR TEST Not Detected (Not Detected)
[2019-08-23] MEDS: MUPIROCIN 2% OINT 22 GM (BACTROBAN) TUBE NSEACH SCH ×2 (10:13→21:12)
[2019-08-23] MEDS: VANCOMYCIN 1500 MG/NS 500 ML IVPB IV SCH ×2 (10:13)
--- NOTE | 2019-08-23 14:30 | NUR ---
"RD ASSESSMENT PMHx: hypercholesterolemia; CAD; HTN; diverticulosis; amputation (2016); DM PT INTERACTION: Note pt was asleep during both attempts for nutrition assessment. Note all information gathered is per chart review or from Paige GARCIA. Paige states pt is not eating much. Note avg PO intake <25% x2d, per chart review. Paige states no issues with nausea, vomiting, constipation, or diarrhea. Not last BM was 08/22, and pt not currently on bowel regimen per chart review. Note recent 20# wt gain x1mon, per chart review. Note unable to determine current level of DM management, and unable to determine recent HbA1c, per chart review. ABNORMAL NUTRITION-RELATED LAB VALUES LOW: K 3.4; Ca 7.8; phos 1.8 HIGH: Cl 109 Est. kcal needs: 0700-8694 kcal | 15-18 kcal/kg Est. Pro needs: 78-97 g Pro | 0.8-1.0 g Pro/kg PES STATEMENT: Inadequate oral intake (NI-2.1) related to loss of appetite as evidenced by chart review | avg PO intake <25% x2d INTERVENTION: Continue with current diet order of Heart Healthy diet. Pt may benefit from consistent CHO restriction if blood glucose levels become elevated. Add Glucerna (vary) to meals TID, for increased kcal intake. Provides 220 kcal and 10 g Pro per serving. Will continue to follow and reassess as pt needs, intake, and status change. MONITOR/EVALUATE: PO Intake; Plan of Care; Hydration Status; Weight Status; Lab Values Candido Joseph, MS, RD, LD"
[2019-08-23] MEDS: warFARin 4 MG (COUMADIN) TAB PO SCH (17:37)
[2019-08-23] MEDS ORDERED: MILK OF MAGNESIA 400 MG/5 ML 30 ML UDC ONE (20:53)
--- NOTE | 2019-08-23 21:11 | NUR ---
MOM pulled on the wrong patient. Returned and pulled on the right patient.
[2019-08-24] VITALS (20 sets, daily range): BP systolic 76–138; BP diastolic 48–78
[2019-08-24] MEDS: NOREPINEPHRINE 4 MG/250 ML 250 ML IV SCH (00:11)
[2019-08-24] MEDS: VASOPRESSIN INJECTION 20 UNIT in NORMAL SALINE 100 ML IV SCH (00:11)
[2019-08-24] MEDS: NS IV 1000 ML 1,000 ML IV SCH ×3 (02:34→18:18)
[2019-08-24 02:47] LABS: BASOPHILS % (AUTO) 0 % (0-10); EOSINOPHILS % (AUTO) 0 % (0-10); HEMATOCRIT 25 % (40-54); HEMOGLOBIN 8.3 G/DL (13.3-17.7); LYMPHOCYTES # (AUTO) 0.6 X 10^3 (1.0-4.0); LYMPHOCYTES % (AUTO) 4 % (12-44); MEAN CORPUSCULAR HEMOGLOBIN 31 PG (25-34); MEAN CORPUSCULAR HGB CONC 34 G/DL (32-36); MEAN CORPUSCULAR VOLUME 90 FL (80-99); MEAN PLATELET VOLUME 11.7 FL (7.4-10.4); MONOCYTES # (AUTO) 0.3 X 10^3 (0.0-1.0); MONOCYTES % (AUTO) 2 % (0-12); NEUTROPHILS % (AUTO) 94 % (42-75); PLATELET COUNT 145 10^3/uL (130-400); RED CELL DISTRIBUTION WIDTH 14.5 % (10.0-14.5); WHITE BLOOD COUNT 14.9 10^3/uL (4.3-11.0)
[2019-08-24 03:12] LABS: CHLORIDE 115 MMOL/L (98-107); POTASSIUM 3.7 MMOL/L (3.6-5.0); SODIUM 142 MMOL/L (135-145)
[2019-08-24 03:13] LABS: CALCIUM 8.1 MG/DL (8.5-10.1)
[2019-08-24 03:14] LABS: GLUCOSE 133 MG/DL (70-105)
[2019-08-24 03:15] LABS: CARBON DIOXIDE 18 MMOL/L (21-32)
[2019-08-24 03:18] LABS: CREATININE SERUM 0.87 MG/DL (0.60-1.30); GFR ESTIMATED > 60
[2019-08-24 03:19] LABS: BUN/CREATININE RATIO 11
[2019-08-24 03:20] LABS: MAGNESIUM 1.9 MG/DL (1.6-2.4)
[2019-08-24] MEDS: POTASSIUM CL 10MEQ/50ML IVPB 50 ML IV SCH (03:59)
[2019-08-24] MEDS: MAGNESIUM 1 GM/100 ML IVPB 100 ML IV SCH (03:59)
[2019-08-24] MEDS: KCL 20 MEQ TAB (K-DUR) PO SCH (03:59)
[2019-08-24] MEDS: HYDROCORTISONE 100 MG/2 ML (Solu-CORTEF) VIAL IV SCH (05:58)
[2019-08-24] MEDS: PIPERACILLIN/TAZOBACTAM (BULK) 4.5 GM in NS (IVPB) 100 ML IV SCH ×3 (05:58→21:43)
--- NOTE | 2019-08-24 06:32 | Pulmonary Progress Note ---
Subjective Time Seen by a Provider: 06:30 Subjective/Events-last exam Pt appears to be doing better. Sepsis Event Evaluation Height, Weight, BMI Height: 5'3.00" Weight: 150lbs. 6.0oz. [id number]; 35.06 BMI Method:Stated Focused Exam Lactate Level 08/22/19 06:20: Lactic Acid Level 0.90 Exam Exam Vital Signs Date Time Temp Pulse Resp B/P (MAP) Pulse Ox O2 Delivery O2 Flow Rate FiO2 08/24/19 06:00 57 1 103/55 (71) 99 Nasal Cannula 2.00 08/24/19 05:00 58 9 105/61 (76) 99 Nasal Cannula 2.00 08/24/19 04:00 76 19 138/71 (93) 100 Nasal Cannula 2.00 08/24/19 04:00 36.7 100 Nasal Cannula 2.00 08/24/19 03:25 100 Nasal Cannula 2.00 08/24/19 03:00 63 11 129/66 (87) 100 Nasal Cannula 2.00 08/24/19 02:00 64 13 135/76 (95) 100 Nasal Cannula 2.00 08/24/19 01:00 61 08/24/19 01:00 61 11 106/48 (67) 100 Nasal Cannula 2.00 08/24/19 00:10 99 Nasal Cannula 2.00 08/24/19 00:00 56 9 96/52 (67) 100 Nasal Cannula 2.00 08/24/19 00:00 36.4 Nasal Cannula 2.00 08/23/19 23:00 67 13 118/52 (74) 100 Nasal Cannula 2.00 08/23/19 22:00 57 11 104/68 (80) 99 Nasal Cannula 2.00 08/23/19 21:15 08/23/19 21:00 72 15 117/61 (79) 100 Nasal Cannula 2.00 08/23/19 20:00 69 22 106/68 (81) 98 Nasal Cannula 2.00 08/23/19 20:00 100 Nasal Cannula 2.00 08/23/19 19:51 36.0 08/23/19 19:00 68 10 110/56 (74) 98 Nasal Cannula 2.00 08/23/19 19:00 36.1 Nasal Cannula 2.00 08/23/19 19:00 68 08/23/19 18:00 75 16 126/66 (86) 100 Nasal Cannula 2.00 08/23/19 17:31 54 99/64 08/23/19 17:31 54 99/64 08/23/19 17:00 75 22 131/58 (82) 99 Nasal Cannula 2.00 08/23/19 16:30 98 Nasal Cannula 2.00 08/23/19 16:00 54 10 99/64 (76) 99 Nasal Cannula 2.00 08/23/19 15:37 36.0 08/23/19 15:00 58 10 99/50 (66) 100 Nasal Cannula 2.00 08/23/19 14:00 71 14 112/63 (79) 100 Nasal Cannula 2.00 08/23/19 13:00 79 20 109/50 (69) 100 Nasal Cannula 2.00 08/23/19 12:39 74 08/23/19 12:36 99 Nasal Cannula 2.00 08/23/19 12:00 36.1 08/23/19 12:00 69 20 127/59 (81) 100 Nasal Cannula 2.00 08/23/19 11:00 56 10 95/47 (63) 99 Nasal Cannula 2.00 08/23/19 10:08 64 118/53 08/23/19 10:00 58 10 118/53 (74) 99 Nasal Cannula 2.00 08/23/19 09:19 64 118/53 08/23/19 09:00 69 15 118/53 (74) 100 Nasal Cannula 2.00 08/23/19 08:22 99 Nasal Cannula 2.00 08/23/19 08:00 35.8 08/23/19 08:00 58 12 120/74 (89) 99 Nasal Cannula 2.00 08/23/19 07:21 98 Nasal Cannula 2.00 08/23/19 07:00 54 12 97/63 (74) 99 Nasal Cannula 2.00 08/23/19 06:34 56 I & O 08/24/19 07:00 Intake Total 3440 ml Output Total 1125 ml Balance 2315 ml Height & Weight Height: 5'3.00" Weight: 150lbs. 6.0oz. [id number]; 35.06 BMI Method:Stated General Appearance: No Apparent Distress, WD/WN HEENT: PERRL/EOMI, Pharynx Normal Neck: Full Range of Motion, Non Tender, Supple Respiratory: Chest Non Tender, Lungs Clear, Normal Breath Sounds Cardiovascular: Regular Rate, Rhythm, Systolic Murmur Capillary Refill: Less Than 3 Seconds Gastrointestinal: normal bowel sounds, non tender, soft, no organomegaly, no pulsatile mass Extremity: No Calf Tenderness (ON RIGHT), Other (LEFT ABOVE THE KNEE AMPUTATION TO UPPER THIGH, POOR CAP REFILL - RIGHT FOOT (CHRONIC)) Neurologic/Psychiatric: Alert, Oriented x3, No Motor/Sensory Deficits, Normal Mood/Affect Skin: Cool; No Diaphoresis, No Erythema, No Mottled Lymphatic: No Adenopathy Results Lab Laboratory Tests 08/23/19 03:10 08/24/19 02:30 Assessment/Plan Assessment/Plan Severe sepsis - improving -d/c solucortef pneumonia -Zosyn and Vanco -Miller cultures pending -COVID is negative -influenza is negative Bacteremia with gram positive cocci -repeat Blood cultures neg thus far -Pt has had aortic valve replacment in past with mechanical valve -Pt is on Coumadin chronically Acute on chronic renal failure with metabolic acidosis -IVF -Monitor Anemia -Monitor NORIS ZHU DO Aug 24, 2019 06:32
--- NOTE | 2019-08-24 08:45 | Discharge Summary ---
Diagnosis/Chief Complaint Date of Admission Aug 20, 2019 at 20:06 Date of Discharge Reason Hospital Visit PT IS A 74 Y/O MALE WHO IS KNOWN TO ME FROM CLINIC. HE STATES THAT HE HAD BEEN FEELING SLOWLY PROGRESSIVELY ILL OVER THE PAST FEW DAYS. HIS CAREGIVER CALLED THE DOCTOR CALL LINE AND SHE WAS WORRIED ABOUT HIM BECAUSE OF A FEVER AND APPEARANCE OF BEING CLAMMY. HE STATES, THIS MORNING, THAT HE IS DOING WELL AND WANTS TO GET UP AND MOVE AROUND. HE DENIES SHORTNESS OF BREATH, ABDOMINAL PAIN. Discharge Summary Discharge Physical Examination Allergies: Coded Allergies: morphine (Verified Allergy, Unknown, 09/01/16) Vitals & I&Os Vital Signs Date Time Temp Pulse Resp B/P (MAP) Pulse Ox O2 Delivery O2 Flow Rate FiO2 08/24/19 07:47 36.2 08/24/19 06:00 57 1 103/55 (71) 99 Nasal Cannula 2.00 Hospital Course Pending Labs Laboratory Tests 08/24/19 02:30: White Blood Count 14.9, Red Blood Count 2.72, Hemoglobin 8.3, Hematocrit 25, Mean Corpuscular Volume 90, Mean Corpuscular Hemoglobin 31, Mean Corpuscular Hemoglobin Concent 34, Red Cell Distribution Width 14.5, Platelet Count 145, Mean Platelet Volume 11.7, Neutrophils (%) (Auto) 94, Lymphocytes (%) (Auto) 4, Monocytes (%) (Auto) 2, Eosinophils (%) (Auto) 0, Basophils (%) (Auto) 0, Neutrophils # (Auto) 14.0, Lymphocytes # (Auto) 0.6, Monocytes # (Auto) 0.3, Eosinophils # (Auto) 0.0, Basophils # (Auto) 0.0, Sodium Level 142, Potassium Level 3.7, Chloride Level 115, Carbon Dioxide Level 18, Anion Gap 9, Blood Urea Nitrogen 10, Creatinine 0.87, Estimat Glomerular Filtration Rate > 60, BUN/Creatinine Ratio 11, Glucose Level 133, Calcium Level 8.1, Phosphorus Level 3.0, Magnesium Level 1.9 Discharge Instructions to patient/family Please see electronic discharge instructions given to patient. Discharge Medications Reviewed and agree with Discharge Medication list on patient's Discharge Instruction sheet Clinical Quality Measures DVT/VTE Risk/Contraindication: Risk Factor Score Per Nursin RFS Level Per Nursing on Admit: 4+=Very High Contraindications-Pharm: Other *list below* Other: PT ON COUMADIN OTTO MILLER MD Aug 24, 2019 08:45
[2019-08-24] MEDS ORDERED: NYST15CR TP (08:51)
[2019-08-24] MEDS ORDERED: MUPI22OI2 NSEACH (08:51)
[2019-08-24] MEDS ORDERED: LACT1CAP87 PO (08:51)
[2019-08-24] MEDS ORDERED: AMOX-358 PO (08:51)
--- NOTE | 2019-08-24 08:52 | Discharge Inst-Simple/Standard ---
Discharge Inst-Standard Reconcile Patient Problems Problems Reviewed?: Yes Discharge Medications New, Converted or Re-Newed RX: Call to Patients Pharmacy Patient Instructions/Follow Up Plan of Care/Instructions/FU: 1 [facility] BY TELEMEDIC[facility] Activity as Tolerated: Yes Discharge Diet: Regular Diet Return to The Hospital For: ANY LIFETHREATENING ILLNESS OR INJURY Planned Outpatient Orders/Ref. Pneu Vac Indicated: Yes Medication List: Active Scripts Active Acidophilus Lactobacilli (Lactobacillus Acidophilus) 1 Each Capsule 1 Each PO BID Augmentin 875-125 Tablet (Amoxicillin/Potassium Clav) 1 Each Tablet 1 Each PO BID Mupirocin 22 Gm Oint...g. 0 Gm NSEACH BID APPLY INTO NASAL PASSAGEWAYS Nystatin 15 Gm Cream..g. 0 Gm TP TID APPLY TO SKIN IN GROIN Pepcid (Famotidine) 20 Mg Tablet 20 Mg PO BID Warfarin Sodium 2 Mg Tablet 4 Mg PO MOTUWETHFR@1200 30 Days HOLD UNTIL 09/07/16 - RESTART ROUTINE COUMADIN ON 09/07/16 Reported Colace (Docusate Sodium) 100 Mg Capsule 100 Mg PO MO Lortab 7.5 Mg Tablet (Acetaminophen/Hydrocodone Bitart) 1 Each Tablet 1 Tab PO Q6H PRN Gabapentin 300 Mg Capsule 300 Mg PO TID Allopurinol 100 Mg Tablet 100 Mg PO DAILY Warfarin Sodium 2 Mg Tablet 2 Mg PO SUSA@1200 Carvedilol 6.25 Mg Tablet 6.25 Mg PO BID HOLD FOR SBP<110 Pantoprazole Sodium 40 Mg Tablet.dr 40 Mg PO DAILY Lisinopril 5 Mg Tablet 5 Mg PO 1700 Mag Ox 400 (Magnesium Oxide) 400 Mg Tablet 400 Mg PO BID Multi Vitamin Daily (Multivitamin) 1 Each Tablet 1 Tab PO DAILY Aspirin Ec 81 Mg (Aspirin) 81 Mg Tabec 81 Mg PO DAILY Lab results: Laboratory Tests Test 08/24/19 02:30 Range/Units White Blood Count 14.9 H 4.3-11.0 10^3/uL Red Blood Count 2.72 L 4.35-5.85 10^6/uL Hemoglobin 8.3 L 13.3-17.7 G/DL Hematocrit 25 L 40-54 % Mean Corpuscular Volume 90 80-99 FL Mean Corpuscular Hemoglobin 31 25-34 PG Mean Corpuscular Hemoglobin Concent 34 32-36 G/DL Red Cell Distribution Width 14.5 10.0-14.5 % Platelet Count 145 130-400 10^3/uL Mean Platelet Volume 11.7 H 7.4-10.4 FL Neutrophils (%) (Auto) 94 H 42-75 % Lymphocytes (%) (Auto) 4 L 12-44 % Monocytes (%) (Auto) 2 0-12 % Eosinophils (%) (Auto) 0 0-10 % Basophils (%) (Auto) 0 0-10 % Neutrophils # (Auto) 14.0 H 1.8-7.8 X 10^3 Lymphocytes # (Auto) 0.6 L 1.0-4.0 X 10^3 Monocytes # (Auto) 0.3 0.0-1.0 X 10^3 Eosinophils # (Auto) 0.0 0.0-0.3 10^3/uL Basophils # (Auto) 0.0 0.0-0.1 10^3/uL Sodium Level 142 135-145 MMOL/L Potassium Level 3.7 3.6-5.0 MMOL/L Chloride Level 115 H 98-107 MMOL/L Carbon Dioxide Level 18 L 21-32 MMOL/L Anion Gap 9 5-14 MMOL/L Blood Urea Nitrogen 10 7-18 MG/DL Creatinine 0.87 0.60-1.30 MG/DL Estimat Glomerular Filtration Rate > 60 BUN/Creatinine Ratio 11 Glucose Level 133 H 70-105 MG/DL Calcium Level 8.1 L 8.5-10.1 MG/DL Phosphorus Level 3.0 2.3-4.7 MG/DL Magnesium Level 1.9 1.6-2.4 MG/DL My orders: Orders - OTTO MILLER MD Mupirocin Ointment (Bactroban Ointment (08/23/19 09:38) Magnesium Hydroxide Oral Susp (Mom Oral (08/23/19 20:53) Cbc With Automated Diff (08/24/19 03:00) Basic Metabolic Panel (08/24/19 03:00) Magnesium (08/24/19 03:00) Phosphorus (08/24/19 03:00) Attending Discharge Inpt/Inobs (08/24/19 08:46) OTTO MILLER MD Aug 24, 2019 08:52
--- NOTE | 2019-08-24 09:10 | NUR ---
At 0907 this nurse spoke with Paige GARCIA to see if she needed any assistance, she asked if I could give patient his morning medications. This nurse entered patients room at 0910. After verifying and scanning patients medications I went to apply patients nystatin cream per order to bilateral groin. Macie LIZAMA entered room att. I first applied the nystatin cream to patients left groin, then went on the right side of the bed to apply nystatin cream to right groin. Upon lifting the blanket I noted that patient had blood in the crease of the right groin, I inspected further to identify where the bleeding was coming from, i then asked for Macie to go get another nurse. Upon inspection of the right groin I noted the patient to have an open area, approximately 1 inch in length, which is where the blood was coming from. Shanta GARCIA in patients room att. I held pressure to the patients groin above the open area and below the open area to ensure that if there was an active bleed I would be holding pressure on it. was on the ICU floor att, came into patients room. Along with blood from the right groin site, watson colored drainage also began to come from the right groin open site. contacted , he came to patient's room shortly after. Order received to culture wound, wound cultured and sent down. Order received to give IV fentanyl, order placed by Shanta GARCIA. Paige GARCIA then came into patients room. assessed patient's wound, he packed the wound with gauze that is wet with normal saline and covered the site with dry gauze. gave orders to do went to dry dressing changes to right groin BID. Patients bleeding stopped. This nurse went into patients room to assist throughout the day, patient has not had any further bleeding from right groin site, dressing is staying in place. Patients primary nurse Paige GARCIA updated.
[2019-08-24] MEDS: MUPIROCIN 2% OINT 22 GM (BACTROBAN) TUBE NSEACH SCH ×2 (09:12→21:44)
[2019-08-24] MEDS: PANTOPRAZOLE 40 MG (PROTONIX) TAB PO SCH (09:13)
[2019-08-24] MEDS: NYSTATIN CREAM (MYCOSTATIN) 30 GM TUBE TP SCH (09:13)
[2019-08-24] MEDS ORDERED: fentaNYL INJECTION 100 MCG/2 ML AMP ONE (09:29)
[2019-08-24] MEDS ORDERED: fentaNYL INJECTION 100 MCG/2 ML AMP IVP ONE (09:30)
[2019-08-24] MEDS ORDERED: fentaNYL INJECTION 100 MCG/2 ML AMP IVP NR (09:45)
--- NOTE | 2019-08-24 09:54 | Progress Note ---
Subjective Subjective Date Seen by Provider: Aug 24, 2019 Time Seen by Provider: 09:10 PT WAS ADAMANT THAT HE WAS GOING TO BE DISCHARGED TO HOME TODAY AND YELLED AT THIS PROVIDER WHEN I INITIALLY SAW HIM AT 815AM - YELLING THE FOLLOWING: " I AM GOING HOME. I DON'T CARE THAT YOU DON'T WANT ME TO, I AM GOING, PERIOD." WHEN I TRIED TO TALK TO HIM AND TELL HIM THAT IS NOT HOW YOU TALK TO SOMEONE WHO IS PROVIDING HEALTHCARE FOR YOU, HE INTERRUPTED ME AND YELLED AGAIN "I DON'T CARE, I AM GOING, IT IS ON ME IF SOMETHING GOES WRONG. AND I AM GOING HOME TODAY!" I INFORMED YVES THAT I DID NOT WANT TO DISCHARGE HIM, BUT WOULD NOT PREVENT HIM FROM LEAVING IF THAT IS WHAT HE CHOOSES. I PUT IN DISCHARGE PAPERWORK AND INITIATED A DC SUMMARY AND WAS GETTING READY TO LEAVE THE HOSPITAL WHEN I RECEIVED AN URGENT PHONE CALL FROM A NURSE COVERING FOR HIS PRIMARY NURSE TODAY - (SHE WAS TRANSFERRING A PATIENT UP FROM THE ER). SHE CALLED REPORTING THAT HE WAS BLEEDING SWIFTLY FROM HIS RIGHT GROIN AND THEY WERE NOT ABLE TO GET THE BLEEDING STOPPED. THEY WERE ACTIVELY HOLDING PRESSURE ON THE SITE IN HIS RIGHT GROIN. UPON MY EVAL OF PATIENT IT WAS NOTED THAT THE RIGHT GROIN WAS BLEEDING A LITTLE, BUT THERE WAS DISCHARGE THAT WAS SEROUS AND PUSTULAR FROM THE RIGHT GROIN. Review of Systems General: No Chills; Fatigue; No Malaise HEENT: No Visual Changes, No Dysphasia, No Sore Throat Pulmonary: No Dyspnea, No Cough Cardiovascular: No: Chest Pain, Palpitations Gastrointestinal: No: Nausea, Abdominal Pain Genitourinary: No Dysuria, No Frequency Neurological: Weakness; No: Confusion BLEEDING RIGHT GROIN All Other Systems Reviewed All Other Systems Reviewed: Yes Objective Exam Vital Signs Vital Signs - First Documented 08/20/19 18:20 Temp 38.6 Pulse 86 Resp 18 B/P (MAP) 102/69 (80) Pulse Ox 96 O2 Delivery Nasal Cannula O2 Flow Rate 3.00 Capillary Refill : Less Than 3 Seconds General Appearance: WD/WN, Moderate Distress (DUE TO PAIN FROM EVAL OF THE RIGHT GROIN WOUND) Eyes: Bilateral Eye Normal Inspection, Bilateral Eye PERRL, Bilateral Eye EOMI HEENT: PERRL/EOMI, Moist Mucous Membranes Neck: Full Range of Motion, Non Tender, Supple Respiratory: Chest Non Tender, Lungs Clear, Normal Breath Sounds Cardiovascular: Regular Rate, Rhythm, Systolic Murmur Gastrointestinal: Normal Bowel Sounds, Non Tender, Soft Rectal: Deferred Extremity: No Calf Tenderness (ON RIGHT), Other (LEFT ABOVE THE KNEE AMPUTATION TO UPPER THIGH, POOR CAP REFILL - RIGHT FOOT (CHRONIC)) Neurologic/Psychiatric: Alert, Oriented x3, No Motor/Sensory Deficits, Normal Mood/Affect Skin: Cool; No Diaphoresis; Erythema; No Mottled; Other (OOZING WOUND RIGHT GROIN - BLOOD AND SEROUS AND PUSTULAR FLUID DRAINING FROM THE GROIN - OPEN WOUND ABOUT 2 X 1.5CM - DR. MICHA JEAN-BAPTISTE OF WOUND BED - SEE HIS NOTE) Lymphatic: No Adenopathy Results Lab Laboratory Tests 08/24/19 02:30: White Blood Count 14.9H, Red Blood Count 2.72L, Hemoglobin 8.3L, Hematocrit 25L, Mean Corpuscular Volume 90, Mean Corpuscular Hemoglobin 31, Mean Corpuscular Hemoglobin Concent 34, Red Cell Distribution Width 14.5, Platelet Count 145, Mean Platelet Volume 11.7H, Neutrophils (%) (Auto) 94H, Lymphocytes (%) (Auto) 4L, Monocytes (%) (Auto) 2, Eosinophils (%) (Auto) 0, Basophils (%) (Auto) 0, Neutrophils # (Auto) 14.0H, Lymphocytes # (Auto) 0.6L, Monocytes # (Auto) 0.3, Eosinophils # (Auto) 0.0, Basophils # (Auto) 0.0, Sodium Level 142, Potassium Level 3.7, Chloride Level 115H, Carbon Dioxide Level 18L, Anion Gap 9, Blood Urea Nitrogen 10, Creatinine 0.87, Estimat Glomerular Filtration Rate > 60, BUN/Creatinine Ratio 11, Glucose Level 133H, Calcium Level 8.1L, Phosphorus Level 3.0, Magnesium Level 1.9 Microbiology 08/22/19 Blood Culture - Preliminary, Resulted No growth 08/20/19 MRSA Screen - Final, Complete 08/20/19 Urine Culture - Final, Complete Normal skin cat Assessment/Plan Assessment/Plan Admission Dx SEVERE SEPSIS HYPOTENSION LEUKOCYTOSIS ACUTE RENAL FAILURE ON CHRONIC RENAL FAILURE CHRONIC ANTICOAGULATION MECHANICAL AORTIC REPLACEMENT VALVE PERIPHERAL NEUROPATHY HX OF CHRONIC HYPERTENSION OPEN ABSCESS RIGHT GROIN SEVERE SEPSIS - PT WAS INITIALLY ON PRESSOR SUPPORT,- NOW WEANED OFF - SUSPECTED PNEUMONIA ON IV ANTIBIOTICS - COVID ANTIGEN NEGATIVE, COVID AB PENDING - TWO POSITIVE BLOOD CULTURES - PENDING REPEAT CULTURES ARE NOW NEGATIVE OPEN ABSCESS RIGHT GROIN (STATUS POST RIGHT ARTERIAL OCCLUSION POST-OPERATIVE BY ABOUT 2 WKS) - DRAINED AND PACKED AND CULTURE OBTAINED - CONTINUE WITH VANC AND ZOSYN - CONSULT TO DR. MUSE - HE WAS IN ROOM TO URGENTLY EVALUATE THE PATIENT DUE TO OUR INITIAL REPORT OF SEVERE BLEEDING FROM GROIN. - WET TO DRY DRESSINGS BID AND PRN SOAKED DRESSING, STAFF TO CALL FOR ANY ACUTE CONCERN FOR MORE RAPID BLEEDING FROM THE GROIN HYPOTENSION - RESOLVED NOW OFF OF PRESSOR SUPPORT LEUKOCYTOSIS - IMPROVED - - - CONTINUE WITH IV ANTIBIOTICS, MONITOR LABS SERIALLY, ANTICIPATE IMPROVEMENT TREATMENT WITH ANTIBIOTICS ACUTE RENAL FAILURE ON CHRONIC RENAL FAILURE - IMPROVED - ON FLUIDS - CONTINUE TO CLOSELY MONITOR RENAL FUNCTION ON PRESSOR SUPPORT CHRONIC ANTICOAGULATION - ON COUMADIN - GAVE DOSE OF LOVENOX TODAY PT WAS GIVEN VITAMIN K PRIOR TO PLACEMENT OF LINE. MECHANICAL AORTIC REPLACEMENT VALVE - ON CHRONIC ANTICOAGULATION PERIPHERAL NEUROPATHY - RESTART GABAPENTIN ONCE MEDICATION LIST HAS BEEN RECONCILED HX OF CHRONIC HYPERTENSION - CURRENTLY ON PRESSOR SUPPORT - CONTINUE WITH MONITORING. EVENTUALLY, ONCE SEPSIS IS RESOLVED, WILL HAVE TO RESTART ANTI-HYPERTENSIVES GI PROPHYLAXIS WITH PPI DVT PROPHYLAXIS ON COUMADIN CHRONICALLY - YVES HAS AGREED TO STAY IN THE HOSPITAL DESPITE HIS INITIAL ANGRY OUTBURST THIS MORNING. Admission Dx SEVERE SEPSIS HYPOTENSION LEUKOCYTOSIS ACUTE RENAL FAILURE ON CHRONIC RENAL FAILURE CHRONIC ANTICOAGULATION MECHANICAL AORTIC REPLACEMENT VALVE PERIPHERAL NEUROPATHY HX OF CHRONIC HYPERTENSION SEVERE SEPSIS - PT ON PRESSOR SUPPORT, CONTINUE TO WEAN ABLE - SUSPECTED PNEUMONIA ON IV ANTIBIOTICS - COVID ANTIGEN NEGATIVE, COVID AB PENDING - TWO POSITIVE BLOOD CULTURES - PENDING HYPOTENSION - ON PRESSOR SUPPORT LEUKOCYTOSIS - IMPROVED - - - CONTINUE WITH IV ANTIBIOTICS, MONITOR LABS SERIALLY, ANTICIPATE IMPROVEMENT TREATMENT WITH ANTIBIOTICS ACUTE RENAL FAILURE ON CHRONIC RENAL FAILURE - IMPROVED - ON FLUIDS - CONTINUE TO CLOSELY MONITOR RENAL FUNCTION ON PRESSOR SUPPORT CHRONIC ANTICOAGULATION - ON COUMADIN - GAVE DOSE OF LOVENOX TODAY PT WAS GIVEN VITAMIN K PRIOR TO PLACEMENT OF LINE. MECHANICAL AORTIC REPLACEMENT VALVE - ON CHRONIC ANTICOAGULATION PERIPHERAL NEUROPATHY - RESTART GABAPENTIN ONCE MEDICATION LIST HAS BEEN RECONCILED HX OF CHRONIC HYPERTENSION - CURRENTLY ON PRESSOR SUPPORT - CONTINUE WITH MONITORING. EVENTUALLY, ONCE SEPSIS IS RESOLVED, WILL HAVE TO RESTART ANTI-HYPERTENSIVES GI PROPHYLAXIS WITH PPI DVT PROPHYLAXIS ON COUMADIN CHRONICALLY - Clinical Quality Measures Admission Status Admission Dx SEVERE SEPSIS HYPOTENSION LEUKOCYTOSIS ACUTE RENAL FAILURE ON CHRONIC RENAL FAILURE CHRONIC ANTICOAGULATION MECHANICAL AORTIC REPLACEMENT VALVE PERIPHERAL NEUROPATHY HX OF CHRONIC HYPERTENSION SEVERE SEPSIS - PT ON PRESSOR SUPPORT, CONTINUE TO WEAN ABLE - SUSPECTED PNEUMONIA ON IV ANTIBIOTICS - COVID ANTIGEN NEGATIVE, COVID AB PENDING - TWO POSITIVE BLOOD CULTURES - PENDING HYPOTENSION - ON PRESSOR SUPPORT LEUKOCYTOSIS - IMPROVED - - - CONTINUE WITH IV ANTIBIOTICS, MONITOR LABS SERIALLY, ANTICIPATE IMPROVEMENT TREATMENT WITH ANTIBIOTICS ACUTE RENAL FAILURE ON CHRONIC RENAL FAILURE - IMPROVED - ON FLUIDS - CONTINUE TO CLOSELY MONITOR RENAL FUNCTION ON PRESSOR SUPPORT CHRONIC ANTICOAGULATION - ON COUMADIN - GAVE DOSE OF LOVENOX TODAY PT WAS GIVEN VITAMIN K PRIOR TO PLACEMENT OF LINE. MECHANICAL AORTIC REPLACEMENT VALVE - ON CHRONIC ANTICOAGULATION PERIPHERAL NEUROPATHY - RESTART GABAPENTIN ONCE MEDICATION LIST HAS BEEN RECONCILED HX OF CHRONIC HYPERTENSION - CURRENTLY ON PRESSOR SUPPORT - CONTINUE WITH MONITORING. EVENTUALLY, ONCE SEPSIS IS RESOLVED, WILL HAVE TO RESTART ANTI-HYPERTENSIVES GI PROPHYLAXIS WITH PPI DVT PROPHYLAXIS ON COUMADIN CHRONICALLY - DVT/VTE Risk/Contraindication: Risk Factor Score Per Nursin RFS Level Per Nursing on Admit: 4+=Very High Contraindications-Pharm: Other *list below* Other: PT ON COUMADIN OTTO MILLER MD Aug 24, 2019 09:54
[2019-08-24] MEDS ORDERED: TROUGH ORDER-PHARMACY XX NR (10:00)
[2019-08-24 10:20] LABS: INR 2.6 (0.8-1.4)
[2019-08-24] MEDS ORDERED: fentaNYL INJECTION 100 MCG/2 ML AMP IVP PRN (10:45)
[2019-08-24] MEDS: VANCOMYCIN 1500 MG/NS 500 ML IVPB IV SCH ×2 (11:10)
[2019-08-24] MEDS: warFARin 4 MG (COUMADIN) TAB PO SCH (17:26)
--- NOTE | 2019-08-24 17:35 | CONSULTATION REPORT ---
DATE OF SERVICE: 08/24/2019 ATTENDING PRIMARY CARE PHYSICIAN: Selena Alvarez MD. HISTORY OF PRESENT ILLNESS: The patient is a 74-year-old male, who was admitted for fevers and chills as well as fatigue. Initially, he was admitted for possible pneumonia and treated with antibiotics. He does have a significant history of peripheral vascular disease as well as coronary artery disease and does have a left ubwer-jik-ehir amputation and recently underwent repair of a what sounds to be an arteriovenous fistula in the right groin. We were called on an emergent basis due to drainage including bleeding coming from the groin starting today. Upon further examination, there appeared to be an abscess in the right groin on the previous area of surgery. There was no active bleeding identified. The patient does have biphasic posterior tibial flow. The wound was examined. There was no visible vessels and the abscess cavity was then packed wet to dry. PAST MEDICAL HISTORY: Peripheral vascular disease, coronary artery disease, hypertension, hypercholesterolemia, valvular heart disease, diabetes. PAST SURGICAL HISTORY: Coronary artery bypass grafting, left [id number] amputation on 02/21, cardiac valve replacement, vasectomy. ALLERGIES: MORPHINE. MEDICATIONS: Allopurinol, aspirin, carvedilol, Colace, famotidine, gabapentin, hydrocodone, lisinopril, magnesium, Protonix, Coumadin. SOCIAL HISTORY: Previous smoke, quit 2016, 40 pack years. Does drink alcohol daily. FAMILY HISTORY: Noncontributory. VITAL SIGNS: Temperature 37.0, blood pressure 131/64, pulse 59, respirations 10, pulse ox 100% on 2 liters nasal cannula. REVIEW OF SYSTEMS: A well-nourished male currently in no acute distress. He is not experiencing any shortness of breath or difficulty breathing. No chest pain, palpitations, diaphoresis. No nausea, vomiting, no diarrhea, constipation, no red blood per rectum, no dark tarry stools. Previous fevers and chills, no recent inadvertent weight loss. All other review of systems negative. PHYSICAL EXAMINATION: CHEST: Scattered wheezes and rhonchi bilaterally. HEART: Regular, no murmurs. EXTREMITIES: He has a left [id number] amputation in the right groin, there is a now an open abscess cavity with no exposed femoral artery or vein as well as no graft exposure. There is minimal surrounding redness and erythema. This appears to be an acute on chronic abscess. He does have biphasic flow of the posterior tibial artery. HEENT: No scleral icterus. NECK: No cervical lymphadenopathy. ABDOMEN: Soft, nontender, nondistended. SKIN: Warm, dry. LABORATORY DATA: WBC 14.9, hemoglobin 8.3, hematocrit 25, platelets 145. BUN 10, creatinine 0.87. ASSESSMENT AND PLAN: A 74-year-old male with right groin abscess from a previous arteriovenous fistula repair. At this time, there is no exposed graft or vasculature and an abscess was previously present; however, spontaneously opened with purulent drainage as well as bleeding; however, upon further exploration, there is no active bleeding as well as again no exposed vessels. We will continue with vancomycin for the high prevalence of Staph epidermidis as well as MRSA as well as wet to dry dressings to allow the wound to granulate by secondary intention. Job ID: [id number] DocumentID: [id number] Dictated Date: 08/24/2019 16:46:41 Etiquette Teacher Date: 08/24/2019 17:34:07 Dictated By: BRENDA MUSE MD MTDD
[2019-08-25] VITALS (16 sets, daily range): BP systolic 102–147; BP diastolic 38–85
[2019-08-25] MEDS: NS IV 1000 ML 1,000 ML IV SCH (02:13)
[2019-08-25 03:19] LABS: BASOPHILS % (AUTO) 0 % (0-10); EOSINOPHILS % (AUTO) 0 % (0-10); HEMATOCRIT 23 % (40-54); HEMOGLOBIN 7.7 G/DL (13.3-17.7); LYMPHOCYTES # (AUTO) 1.6 X 10^3 (1.0-4.0); LYMPHOCYTES % (AUTO) 15 % (12-44); MEAN CORPUSCULAR HEMOGLOBIN 30 PG (25-34); MEAN CORPUSCULAR HGB CONC 33 G/DL (32-36); MEAN CORPUSCULAR VOLUME 90 FL (80-99); MEAN PLATELET VOLUME 10.5 FL (7.4-10.4); MONOCYTES # (AUTO) 0.6 X 10^3 (0.0-1.0); MONOCYTES % (AUTO) 6 % (0-12); NEUTROPHILS # (AUTO) 8.1 X 10^3 (1.8-7.8); NEUTROPHILS % (AUTO) 78 % (42-75); PLATELET COUNT 204 10^3/uL (130-400); RED CELL DISTRIBUTION WIDTH 14.7 % (10.0-14.5); WHITE BLOOD COUNT 10.4 10^3/uL (4.3-11.0)
[2019-08-25 03:44] LABS: ALANINE AMINOTRANSFERASE 18 U/L (0-55); ALKALINE PHOSPHATASE 51 U/L (40-136); BILIRUBIN,TOTAL 0.2 MG/DL (0.1-1.0); BUN/CREATININE RATIO 14; CARBON DIOXIDE 18 MMOL/L (21-32); CHLORIDE 119 MMOL/L (98-107); CREATININE SERUM 0.84 MG/DL (0.60-1.30); GFR ESTIMATED > 60; GLUCOSE 84 MG/DL (70-105); MAGNESIUM 1.6 MG/DL (1.6-2.4); POTASSIUM 3.1 MMOL/L (3.6-5.0); SODIUM 146 MMOL/L (135-145); TOTAL PROTEIN 4.6 GM/DL (6.4-8.2)
--- NOTE | 2019-08-25 04:55 | Pulmonary Progress Note ---
Subjective Time Seen by a Provider: 04:52 Subjective/Events-last exam Pt has no complaints today currently. Sepsis Event Evaluation Height, Weight, BMI Height: 5'3.00" Weight: 150lbs. 6.0oz. 68.184654bw; 35.06 BMI Method:Stated Focused Exam Lactate Level 08/22/19 06:20: Lactic Acid Level 0.90 Exam Exam Vital Signs Date Time Temp Pulse Resp B/P (MAP) Pulse Ox O2 Delivery O2 Flow Rate FiO2 08/25/19 04:00 Room Air 08/25/19 03:00 64 20 126/68 (87) 96 Room Air 08/25/19 02:00 64 16 121/51 (74) 95 Room Air 08/25/19 01:00 65 16 118/38 (64) 95 Room Air 08/25/19 01:00 66 08/25/19 00:00 71 17 126/85 (99) 96 Room Air 08/25/19 00:00 Room Air 08/24/19 23:18 36.3 08/24/19 23:00 70 16 120/54 (76) 96 Room Air 08/24/19 22:00 65 13 130/63 (85) 95 Room Air 08/24/19 21:00 92 16 124/64 (84) 98 Room Air 08/24/19 20:03 36.9 08/24/19 20:00 67 12 127/68 (87) 96 Room Air 08/24/19 20:00 Room Air 08/24/19 19:00 64 12 124/64 (84) 96 Room Air 08/24/19 19:00 64 08/24/19 16:20 98 Room Air 08/24/19 16:02 37.0 08/24/19 14:30 Room Air 08/24/19 14:00 59 10 131/64 (86) 100 Nasal Cannula 2.00 08/24/19 13:00 57 10 123/71 (88) 100 Nasal Cannula 2.00 08/24/19 12:48 58 08/24/19 12:15 100 Nasal Cannula 2.00 08/24/19 12:00 68 13 122/49 (73) 99 Nasal Cannula 2.00 08/24/19 11:13 36.6 08/24/19 11:00 72 18 76/69 (71) 99 Nasal Cannula 2.00 08/24/19 10:00 77 10 109/78 (88) 99 Nasal Cannula 2.00 08/24/19 09:30 36.2 08/24/19 09:00 75 12 126/72 (90) 99 Nasal Cannula 2.00 08/24/19 08:00 100 Nasal Cannula 2.00 08/24/19 08:00 71 14 115/66 (82) 99 Nasal Cannula 2.00 08/24/19 07:47 36.2 08/24/19 07:00 64 13 128/69 (88) 100 Nasal Cannula 2.00 08/24/19 06:36 61 08/24/19 06:00 57 1 103/55 (71) 99 Nasal Cannula 2.00 08/24/19 05:00 58 9 105/61 (76) 99 Nasal Cannula 2.00 I & O 08/25/19 07:00 Intake Total 2995 ml Output Total 900 ml Balance 2095 ml Height & Weight Height: 5'3.00" Weight: 150lbs. 6.0oz. [id number]; 35.06 BMI Method:Stated General Appearance: No Apparent Distress, WD/WN HEENT: PERRL/EOMI, Pharynx Normal Neck: Full Range of Motion, Non Tender, Supple Respiratory: Chest Non Tender, Decreased Breath Sounds, Wheezing Cardiovascular: Regular Rate, Rhythm, Systolic Murmur Capillary Refill: Less Than 3 Seconds Gastrointestinal: normal bowel sounds, non tender, soft, no organomegaly, no pulsatile mass Extremity: No Calf Tenderness (ON RIGHT), Other (LEFT ABOVE THE KNEE AMPUTATION TO UPPER THIGH, POOR CAP REFILL - RIGHT FOOT (CHRONIC)) Neurologic/Psychiatric: Alert, Oriented x3, No Motor/Sensory Deficits, Normal Mood/Affect Skin: Cool; No Diaphoresis, No Erythema, No Mottled Lymphatic: No Adenopathy Results Lab Laboratory Tests 08/24/19 02:30 08/25/19 03:10 Assessment/Plan Assessment/Plan Severe sepsis - improving pneumonia -Zosyn -Miller cultures pending -COVID is negative -influenza is negative -Start Duoneb txs secondary to wheezing. Bacteremia with gram positive cocci -repeat Blood cultures neg thus far -Pt has had aortic valve replacment in past with mechanical valve -Pt is on Coumadin chronically Anemia -Monitor NORIS ZHU DO Aug 25, 2019 04:55
[2019-08-25] MEDS: POTASSIUM CL 10MEQ/50ML IVPB 50 ML IV SCH ×5 (04:56→06:32)
[2019-08-25] MEDS: MAGNESIUM 1 GM/100 ML IVPB 100 ML IV SCH ×3 (04:57→05:55)
[2019-08-25] MEDS: PIPERACILLIN/TAZOBACTAM (BULK) 4.5 GM in NS (IVPB) 100 ML IV SCH ×3 (04:57→21:25)
[2019-08-25] MEDS ORDERED: POTASSIUM PHOSPHATE INJ 30 MM in NS (IVPB) 250 ML IV ONE (05:00)
[2019-08-25] MEDS: KCL 20 MEQ TAB (K-DUR) PO SCH (05:19)
[2019-08-25] MEDS: RT-ALBUTEROL/IPRATROPIUM 3 ML (DUONEB) VIAL INH SCH ×4 (06:36→20:53)
--- NOTE | 2019-08-25 07:16 | Diagnostic Imaging Report ---
INDICATION: Shortness of breath. Comparison with 08/20/2019. FINDINGS: Cardiomegaly with median sternotomy changes are again noted. Right jugular line now present with tip at cavoatrial junction. The lungs are well-aerated. There are no acute infiltrates. No pulmonary edema. No pneumothorax or pleural effusion. IMPRESSION: 1. Postoperative residue and cardiomegaly unchanged. 2. Right IJ line now present good position. Dictated by: Dictated on workstation # [id number]
[2019-08-25] MEDS: PANTOPRAZOLE 40 MG (PROTONIX) TAB PO SCH (08:06)
[2019-08-25] MEDS: MUPIROCIN 2% OINT 22 GM (BACTROBAN) TUBE NSEACH SCH ×2 (08:07→21:24)
--- NOTE | 2019-08-25 08:43 | Progress Note ---
Subjective Subjective PT REPORTS THAT HE IS FEELING BETTER, STAFF NOTES THAT HIS TEMPERATURE HAS IMPROVED, HE NOTES THAT HE IS UNCOMFORTABLE IN THE BED AND DOES NOT UNDERSTAND WHY HE HAS TO STAY IN THE HOSPITAL. HE DENIES CHEST PAIN, SHORTNESS OF BREATH, NAUSEA, ABDOMINAL PAIN, DIZZINESS Review of Systems General: No Chills; Fatigue; No Malaise HEENT: No Visual Changes, No Dysphasia, No Sore Throat Pulmonary: No Dyspnea, No Cough Cardiovascular: No: Chest Pain, Palpitations Gastrointestinal: No: Nausea, Abdominal Pain Genitourinary: No Dysuria, No Frequency Neurological: Weakness; No: Confusion BLEEDING RIGHT GROIN All Other Systems Reviewed All Other Systems Reviewed: Yes Objective Exam Vital Signs Vital Signs - First Documented 08/20/19 18:20 Temp 38.6 Pulse 86 Resp 18 B/P (MAP) 102/69 (80) Pulse Ox 96 O2 Delivery Nasal Cannula O2 Flow Rate 3.00 Capillary Refill : Less Than 3 Seconds General Appearance: No Apparent Distress, WD/WN Eyes: Bilateral Eye Normal Inspection, Bilateral Eye PERRL, Bilateral Eye EOMI HEENT: PERRL/EOMI, Pharynx Normal Neck: Full Range of Motion, Non Tender, Supple Respiratory: Chest Non Tender, Decreased Breath Sounds, Wheezing Cardiovascular: Regular Rate, Rhythm, Systolic Murmur Gastrointestinal: Normal Bowel Sounds, Non Tender, Soft Rectal: Deferred Extremity: No Calf Tenderness (ON RIGHT), Other (LEFT ABOVE THE KNEE AMPUTATION TO UPPER THIGH, POOR CAP REFILL - RIGHT FOOT (CHRONIC)) Neurologic/Psychiatric: Alert, Oriented x3, No Motor/Sensory Deficits, Normal Mood/Affect Skin: Cool; No Diaphoresis, No Erythema, No Mottled Lymphatic: No Adenopathy Results Lab Laboratory Tests 08/24/19 09:50: Prothrombin Time 29.0H, INR Comment 2.6H 08/24/19 09:55: Vancomycin Level Trough 13.0 08/24/19 12:56: Lab Scanned Report Transfusion Reaction Form 08/25/19 03:10: White Blood Count 10.4, Red Blood Count 2.59L, Hemoglobin 7.7L, Hematocrit 23L, Mean Corpuscular Volume 90, Mean Corpuscular Hemoglobin 30, Mean Corpuscular Hemoglobin Concent 33, Red Cell Distribution Width 14.7H, Platelet Count 204, Mean Platelet Volume 10.5H, Neutrophils (%) (Auto) 78H, Lymphocytes (%) (Auto) 15, Monocytes (%) (Auto) 6, Eosinophils (%) (Auto) 0, Basophils (%) (Auto) 0, Neutrophils # (Auto) 8.1H, Lymphocytes # (Auto) 1.6, Monocytes # (Auto) 0.6, Eosinophils # (Auto) 0.0, Basophils # (Auto) 0.0, Sodium Level 146H, Potassium Level 3.1L, Chloride Level 119H, Carbon Dioxide Level 18L, Anion Gap 9, Blood Urea Nitrogen 12, Creatinine 0.84, Estimat Glomerular Filtration Rate > 60, BUN/Creatinine Ratio 14, Glucose Level 84, Calcium Level 8.0L, Corrected Calcium 9.6, Phosphorus Level 2.0L, Magnesium Level 1.6, Total Bilirubin 0.2, Aspartate Amino Transf (AST/SGOT) 21, Alanine Aminotransferase (ALT/SGPT) 18, Alkaline Phosphatase 51, Total Protein 4.6L, Albumin 2.0L Microbiology 08/24/19 Gram Stain - Final, Resulted 08/24/19 Wound Culture - Preliminary, Resulted Staphylococcus aureus 08/22/19 Blood Culture - Preliminary, Resulted No growth 08/20/19 MRSA Screen - Final, Complete 08/20/19 Urine Culture - Final, Complete Normal skin cat Assessment/Plan Assessment/Plan Admission Dx SEVERE SEPSIS HYPOTENSION LEUKOCYTOSIS ACUTE RENAL FAILURE ON CHRONIC RENAL FAILURE CHRONIC ANTICOAGULATION MECHANICAL AORTIC REPLACEMENT VALVE PERIPHERAL NEUROPATHY HX OF CHRONIC HYPERTENSION SEVERE SEPSIS - PT ON PRESSOR SUPPORT, CONTINUE TO WEAN ABLE - SUSPECTED PNEUMONIA ON IV ANTIBIOTICS - COVID ANTIGEN NEGATIVE, COVID AB PENDING - TWO POSITIVE BLOOD CULTURES - PENDING HYPOTENSION - ON PRESSOR SUPPORT LEUKOCYTOSIS - IMPROVED - - - CONTINUE WITH IV ANTIBIOTICS, MONITOR LABS SERIALLY, ANTICIPATE IMPROVEMENT TREATMENT WITH ANTIBIOTICS ACUTE RENAL FAILURE ON CHRONIC RENAL FAILURE - IMPROVED - ON FLUIDS - CONTINUE TO CLOSELY MONITOR RENAL FUNCTION ON PRESSOR SUPPORT CHRONIC ANTICOAGULATION - ON COUMADIN - GAVE DOSE OF LOVENOX TODAY PT WAS GIVEN VITAMIN K PRIOR TO PLACEMENT OF LINE. MECHANICAL AORTIC REPLACEMENT VALVE - ON CHRONIC ANTICOAGULATION PERIPHERAL NEUROPATHY - RESTART GABAPENTIN ONCE MEDICATION LIST HAS BEEN RECONCILED HX OF CHRONIC HYPERTENSION - CURRENTLY ON PRESSOR SUPPORT - CONTINUE WITH MONITORING. EVENTUALLY, ONCE SEPSIS IS RESOLVED, WILL HAVE TO RESTART ANTI-HYPERTENSIVES GI PROPHYLAXIS WITH PPI DVT PROPHYLAXIS ON COUMADIN CHRONICALLY - CRITICAL CARE TIME 1 HOUR TOTAL Admission Dx SEVERE SEPSIS HYPOTENSION LEUKOCYTOSIS ACUTE RENAL FAILURE ON CHRONIC RENAL FAILURE CHRONIC ANTICOAGULATION MECHANICAL AORTIC REPLACEMENT VALVE PERIPHERAL NEUROPATHY HX OF CHRONIC HYPERTENSION SEVERE SEPSIS - PT ON PRESSOR SUPPORT, CONTINUE TO WEAN ABLE - SUSPECTED PNEUMONIA ON IV ANTIBIOTICS - COVID ANTIGEN NEGATIVE, COVID AB PENDING - TWO POSITIVE BLOOD CULTURES - PENDING HYPOTENSION - ON PRESSOR SUPPORT LEUKOCYTOSIS - IMPROVED - - - CONTINUE WITH IV ANTIBIOTICS, MONITOR LABS SERIALLY, ANTICIPATE IMPROVEMENT TREATMENT WITH ANTIBIOTICS ACUTE RENAL FAILURE ON CHRONIC RENAL FAILURE - IMPROVED - ON FLUIDS - CONTINUE TO CLOSELY MONITOR RENAL FUNCTION ON PRESSOR SUPPORT CHRONIC ANTICOAGULATION - ON COUMADIN - GAVE DOSE OF LOVENOX TODAY PT WAS GIVEN VITAMIN K PRIOR TO PLACEMENT OF LINE. MECHANICAL AORTIC REPLACEMENT VALVE - ON CHRONIC ANTICOAGULATION PERIPHERAL NEUROPATHY - RESTART GABAPENTIN ONCE MEDICATION LIST HAS BEEN RECONCILED HX OF CHRONIC HYPERTENSION - CURRENTLY ON PRESSOR SUPPORT - CONTINUE WITH MONITORING. EVENTUALLY, ONCE SEPSIS IS RESOLVED, WILL HAVE TO RESTART ANTI-HYPERTENSIVES GI PROPHYLAXIS WITH PPI DVT PROPHYLAXIS ON COUMADIN CHRONICALLY - CRITICAL CARE TIME 1 HOUR TOTAL Clinical Quality Measures Admission Status Admission Dx SEVERE SEPSIS HYPOTENSION LEUKOCYTOSIS ACUTE RENAL FAILURE ON CHRONIC RENAL FAILURE CHRONIC ANTICOAGULATION MECHANICAL AORTIC REPLACEMENT VALVE PERIPHERAL NEUROPATHY HX OF CHRONIC HYPERTENSION SEVERE SEPSIS - PT ON PRESSOR SUPPORT, CONTINUE TO WEAN ABLE - SUSPECTED PNEUMONIA ON IV ANTIBIOTICS - COVID ANTIGEN NEGATIVE, COVID AB PENDING - TWO POSITIVE BLOOD CULTURES - PENDING HYPOTENSION - ON PRESSOR SUPPORT LEUKOCYTOSIS - IMPROVED - - - CONTINUE WITH IV ANTIBIOTICS, MONITOR LABS SERIALLY, ANTICIPATE IMPROVEMENT TREATMENT WITH ANTIBIOTICS ACUTE RENAL FAILURE ON CHRONIC RENAL FAILURE - IMPROVED - ON FLUIDS - CONTINUE TO CLOSELY MONITOR RENAL FUNCTION ON PRESSOR SUPPORT CHRONIC ANTICOAGULATION - ON COUMADIN - GAVE DOSE OF LOVENOX TODAY PT WAS GIVEN VITAMIN K PRIOR TO PLACEMENT OF LINE. MECHANICAL AORTIC REPLACEMENT VALVE - ON CHRONIC ANTICOAGULATION PERIPHERAL NEUROPATHY - RESTART GABAPENTIN ONCE MEDICATION LIST HAS BEEN RECONCILED HX OF CHRONIC HYPERTENSION - CURRENTLY ON PRESSOR SUPPORT - CONTINUE WITH MONITORING. EVENTUALLY, ONCE SEPSIS IS RESOLVED, WILL HAVE TO RESTART ANTI-HYPERTENSIVES GI PROPHYLAXIS WITH PPI DVT PROPHYLAXIS ON COUMADIN CHRONICALLY - CRITICAL CARE TIME 1 HOUR TOTAL DVT/VTE Risk/Contraindication: Risk Factor Score Per Nursin RFS Level Per Nursing on Admit: 4+=Very High Contraindications-Pharm: Other *list below* Other: PT ON COUMADIN OTTO MILLER MD Aug 25, 2019 08:43
[2019-08-25 09:10] LABS: INR 3.4 (0.8-1.4)
[2019-08-25] MEDS ORDERED: FUROSEMIDE 40 MG/4 ML INJ (LASIX) IVP NR (09:30)
[2019-08-25] MEDS: VANCOMYCIN 1500 MG/NS 500 ML IVPB IV SCH ×2 (10:14)
--- NOTE | 2019-08-25 13:30 | NUR ---
REC'D PER BED FROM ICU. SEE ASSESSMENT.
--- NOTE | 2019-08-25 13:30 | NUR ---
PT TRANSFERRED TO ROOM 417 VIA BED W/ STAFF AND PERSONAL BELONGINGS. REPORT GIVEN TO ALINA GARCIA WHO ASSUMES CARE OF PT, NO QUESTIONS/CONCERNS VOICED.
--- NOTE | 2019-08-25 14:18 | NUR ---
"RD ASSESSMENT PMHx: hypercholesterolemia; CAD; HTN; diverticulosis; amputation (2016); DM PT INTERACTION: Pt was awake and pleasant during nutrition follow-up. Pt states he has been eating alright since last assessment. Note pt has been refusing meals and avg PO intake is <25% of meals consumed, per chart review. Pt states no issues with nausea, vomiting, constipation, or diarrhea since last assessment. Note last BM on 08/24, and pt not currently on bowel regimen per chart review. ABNORMAL NUTRITION-RELATED LAB VALUES LOW: Ca 8.0; K 3.1; phos 2.0; Pro 4.6; alb 2.0 HIGH: Na 146; Cl 119 Est. kcal needs: 7233-2182 kcal | 15-18 kcal/kg Est. Pro needs: 85-106 g Pro | 0.8-1.0 g Pro/kg PES STATEMENT: Inadequate oral intake (NI-2.1) related to loss of appetite as evidenced by pt interview | pt refusing meals INTERVENTION: Continue with current diet order of Heart Healthy diet. Encouraged pt to eat when able. Add Glucerna (vary) to meals TID, for increased kcal intake. Provides 220 kcal and 10 g Pro per serving. Pt declined second offer of diet education on DM management. Will continue to follow and reassess as pt needs, intake, and status change. MONITOR/EVALUATE: PO Intake; Plan of Care; Hydration Status; Weight Status; Lab Values Candido Joseph, MS, RD, LD"
--- NOTE | 2019-08-25 14:48 | Progress Note ---
Subjective Date Seen by a Provider: Aug 25, 2019 Time Seen by a Provider: 14:30 Subjective/Events-last exam doing ok. wound appears to be granulating. no redness/erythema. Objective Exam Vital Signs Date Time Temp Pulse Resp B/P (MAP) Pulse Ox O2 Delivery O2 Flow Rate FiO2 08/25/19 13:31 36.9 74 18 134/82 (99) 97 Room Air 08/25/19 12:00 75 14 102/41 (61) 99 Room Air 08/25/19 11:00 73 19 122/69 (86) 97 Room Air 08/25/19 10:18 98 Room Air 08/25/19 10:00 62 14 115/61 (79) 96 Room Air 08/25/19 09:00 66 14 119/51 (73) 99 Room Air 08/25/19 08:00 Room Air 08/25/19 08:00 71 10 126/55 (78) 96 Room Air 08/25/19 07:17 36.9 08/25/19 07:02 73 08/25/19 07:00 73 13 128/67 (87) 95 Room Air 08/25/19 06:36 96 Room Air 08/25/19 06:00 66 15 135/72 (93) 95 Room Air 08/25/19 05:00 80 21 147/79 (101) 97 Room Air 08/25/19 04:00 80 16 123/65 (84) 98 Room Air 08/25/19 04:00 Room Air 08/25/19 03:00 64 20 126/68 (87) 96 Room Air 08/25/19 02:00 64 16 121/51 (74) 95 Room Air 08/25/19 01:00 65 16 118/38 (64) 95 Room Air 08/25/19 01:00 66 08/25/19 00:00 71 17 126/85 (99) 96 Room Air 08/25/19 00:00 Room Air 08/24/19 23:18 36.3 08/24/19 23:00 70 16 120/54 (76) 96 Room Air 08/24/19 22:00 65 13 130/63 (85) 95 Room Air 08/24/19 21:00 92 16 124/64 (84) 98 Room Air 08/24/19 20:03 36.9 08/24/19 20:00 67 12 127/68 (87) 96 Room Air 08/24/19 20:00 Room Air 08/24/19 19:00 64 12 124/64 (84) 96 Room Air 08/24/19 19:00 64 08/24/19 16:20 98 Room Air 08/24/19 16:02 37.0 I & O 08/25/19 07:00 Intake Total 4615 ml Output Total 1100 ml Balance 3515 ml Capillary Refill : Less Than 3 Seconds General Appearance: No Apparent Distress HEENT: PERRL/EOMI Neck: Full Range of Motion Respiratory: Chest Non Tender, Rhonci Cardiovascular: Regular Rate, Rhythm Gastrointestinal: normal bowel sounds, non tender, soft Extremity: Slow Capillary Refill Neurologic/Psychiatric: Alert, Oriented x3 Skin: Normal Color Lymphatic: No Adenopathy Results Lab Laboratory Tests 08/25/19 03:10: White Blood Count 10.4, Red Blood Count 2.59L, Hemoglobin 7.7L, Hematocrit 23L, Mean Corpuscular Volume 90, Mean Corpuscular Hemoglobin 30, Mean Corpuscular Hemoglobin Concent 33, Red Cell Distribution Width 14.7H, Platelet Count 204, Mean Platelet Volume 10.5H, Neutrophils (%) (Auto) 78H, Lymphocytes (%) (Auto) 15, Monocytes (%) (Auto) 6, Eosinophils (%) (Auto) 0, Basophils (%) (Auto) 0, Neutrophils # (Auto) 8.1H, Lymphocytes # (Auto) 1.6, Monocytes # (Auto) 0.6, Eosinophils # (Auto) 0.0, Basophils # (Auto) 0.0, Sodium Level 146H, Potassium Level 3.1L, Chloride Level 119H, Carbon Dioxide Level 18L, Anion Gap 9, Blood Urea Nitrogen 12, Creatinine 0.84, Estimat Glomerular Filtration Rate > 60, BUN/Creatinine Ratio 14, Glucose Level 84, Calcium Level 8.0L, Corrected Calcium 9.6, Phosphorus Level 2.0L, Magnesium Level 1.6, Total Bilirubin 0.2, Aspartate Amino Transf (AST/SGOT) 21, Alanine Aminotransferase (ALT/SGPT) 18, Alkaline Phosphatase 51, Total Protein 4.6L, Albumin 2.0L 08/25/19 08:45: Prothrombin Time 36.0H, INR Comment 3.4H 08/25/19 10:15: Microbiology 08/24/19 Gram Stain - Final, Resulted 08/24/19 Wound Culture - Preliminary, Resulted Staphylococcus aureus 08/22/19 Blood Culture - Preliminary, Resulted No growth 08/20/19 MRSA Screen - Final, Complete 08/20/19 Urine Culture - Final, Complete Normal skin cat Assessment/Plan Assessment/Plan Assess & Plan/Chief Complaint right groin abscess s/p spontaneous drainage. cont wound care. cont abx. Clinical Quality Measures DVT/VTE Risk/Contraindication: Risk Factor Score Per Nursin RFS Level Per Nursing on Admit: 4+=Very High Contraindications-Pharm: Other *list below* Other: PT ON COUMADIN BRENDA MUSE MD Aug 25, 2019 14:47
[2019-08-26] VITALS: BP 127/59
[2019-08-26 04:00] VITALS: BP 121/68
[2019-08-26 06:44] LABS: BASOPHILS % (AUTO) 0 % (0-10); EOSINOPHILS # (AUTO) 0.2 10^3/uL (0.0-0.3); EOSINOPHILS % (AUTO) 2 % (0-10); HEMATOCRIT 26 % (40-54); HEMOGLOBIN 8.7 G/DL (13.3-17.7); LYMPHOCYTES # (AUTO) 1.3 X 10^3 (1.0-4.0); LYMPHOCYTES % (AUTO) 15 % (12-44); MEAN CORPUSCULAR HEMOGLOBIN 30 PG (25-34); MEAN CORPUSCULAR HGB CONC 34 G/DL (32-36); MEAN CORPUSCULAR VOLUME 89 FL (80-99); MEAN PLATELET VOLUME 10.5 FL (7.4-10.4); MONOCYTES # (AUTO) 0.4 X 10^3 (0.0-1.0); MONOCYTES % (AUTO) 5 % (0-12); NEUTROPHILS # (AUTO) 6.9 X 10^3 (1.8-7.8); NEUTROPHILS % (AUTO) 78 % (42-75); PLATELET COUNT 285 10^3/uL (130-400); RED CELL DISTRIBUTION WIDTH 14.7 % (10.0-14.5); WHITE BLOOD COUNT 8.8 10^3/uL (4.3-11.0)
[2019-08-26] MEDS ORDERED: FUROSEMIDE 40 MG/4 ML INJ (LASIX) IVP NR (07:00)
[2019-08-26 07:05] LABS: CHLORIDE 112 MMOL/L (98-107); SODIUM 144 MMOL/L (135-145)
[2019-08-26 07:06] LABS: CALCIUM 8.3 MG/DL (8.5-10.1)
[2019-08-26 07:07] LABS: GLUCOSE 84 MG/DL (70-105)
[2019-08-26 07:09] LABS: CARBON DIOXIDE 21 MMOL/L (21-32)
[2019-08-26 07:11] LABS: CREATININE SERUM 0.91 MG/DL (0.60-1.30); GFR ESTIMATED > 60
[2019-08-26 07:12] LABS: BUN/CREATININE RATIO 10
[2019-08-26 07:14] LABS: MAGNESIUM 1.2 MG/DL (1.6-2.4)
[2019-08-26] MEDS: RT-ALBUTEROL/IPRATROPIUM 3 ML (DUONEB) VIAL INH SCH ×3 (07:15→15:45)
[2019-08-26 08:00] VITALS: BP 123/66
[2019-08-26] MEDS: PANTOPRAZOLE 40 MG (PROTONIX) TAB PO SCH (08:41)
[2019-08-26] MEDS: MUPIROCIN 2% OINT 22 GM (BACTROBAN) TUBE NSEACH SCH (08:54)
--- NOTE | 2019-08-26 09:07 | Progress Note ---
Subjective Subjective PT REPORTS THAT HE IS FEELING BETTER, STAFF NOTES THAT HIS TEMPERATURE HAS IMPROVED, HE NOTES THAT HE IS UNCOMFORTABLE IN THE BED AND DOES NOT UNDERSTAND WHY HE HAS TO STAY IN THE HOSPITAL. HE DENIES CHEST PAIN, SHORTNESS OF BREATH, NAUSEA, ABDOMINAL PAIN, DIZZINESS Review of Systems General: No Chills; Fatigue; No Malaise HEENT: No Visual Changes, No Dysphasia, No Sore Throat Pulmonary: No Dyspnea, No Cough Cardiovascular: No: Chest Pain, Palpitations Gastrointestinal: No: Nausea, Abdominal Pain Genitourinary: No Dysuria, No Frequency Neurological: Weakness; No: Confusion BLEEDING RIGHT GROIN All Other Systems Reviewed All Other Systems Reviewed: Yes Objective Exam Vital Signs Vital Signs - First Documented 08/20/19 18:20 Temp 38.6 Pulse 86 Resp 18 B/P (MAP) 102/69 (80) Pulse Ox 96 O2 Delivery Nasal Cannula O2 Flow Rate 3.00 Capillary Refill : Less Than 3 SecondsLess Than 3 Seconds General Appearance: No Apparent Distress Eyes: Bilateral Eye Normal Inspection, Bilateral Eye PERRL, Bilateral Eye EOMI HEENT: PERRL/EOMI Neck: Full Range of Motion Respiratory: Chest Non Tender, Rhonci Cardiovascular: Regular Rate, Rhythm Gastrointestinal: Normal Bowel Sounds, Non Tender, Soft Rectal: Deferred Extremity: Slow Capillary Refill Neurologic/Psychiatric: Alert, Oriented x3 Skin: Normal Color Lymphatic: No Adenopathy Results Lab Laboratory Tests 08/25/19 10:15: Iron Level 56, Total Iron Binding Capacity 132L, Unsaturated Iron Binding Capacity 76, Transferrin % Saturation 42, Ferritin 211.8 08/26/19 06:00: White Blood Count 8.8, Red Blood Count 2.90L, Hemoglobin 8.7L, Hematocrit 26L, Mean Corpuscular Volume 89, Mean Corpuscular Hemoglobin 30, Mean Corpuscular Hemoglobin Concent 34, Red Cell Distribution Width 14.7H, Platelet Count 285, Mean Platelet Volume 10.5H, Neutrophils (%) (Auto) 78H, Lymphocytes (%) (Auto) 15, Monocytes (%) (Auto) 5, Eosinophils (%) (Auto) 2, Basophils (%) (Auto) 0, Neutrophils # (Auto) 6.9, Lymphocytes # (Auto) 1.3, Monocytes # (Auto) 0.4, Eosinophils # (Auto) 0.2, Basophils # (Auto) 0.0, Sodium Level 144, Potassium Level 3.0L, Chloride Level 112H, Carbon Dioxide Level 21, Anion Gap 11, Blood Urea Nitrogen 9, Creatinine 0.91, Estimat Glomerular Filtration Rate > 60, BUN/Creatinine Ratio 10, Glucose Level 84, Calcium Level 8.3L, Phosphorus Level 3.0, Magnesium Level 1.2L Microbiology 08/24/19 Gram Stain - Final, Resulted 08/24/19 Wound Culture - Preliminary, Resulted Staphylococcus aureus 08/22/19 Blood Culture - Preliminary, Resulted No growth 08/20/19 MRSA Screen - Final, Complete 08/20/19 Urine Culture - Final, Complete Normal skin cat Assessment/Plan Assessment/Plan Admission Dx SEVERE SEPSIS HYPOTENSION LEUKOCYTOSIS ACUTE RENAL FAILURE ON CHRONIC RENAL FAILURE CHRONIC ANTICOAGULATION MECHANICAL AORTIC REPLACEMENT VALVE PERIPHERAL NEUROPATHY HX OF CHRONIC HYPERTENSION SEVERE SEPSIS - PT ON PRESSOR SUPPORT, CONTINUE TO WEAN ABLE - SUSPECTED PNEUMONIA ON IV ANTIBIOTICS - COVID ANTIGEN NEGATIVE, COVID AB PENDING - TWO POSITIVE BLOOD CULTURES - PENDING HYPOTENSION - ON PRESSOR SUPPORT LEUKOCYTOSIS - IMPROVED - - - CONTINUE WITH IV ANTIBIOTICS, MONITOR LABS SERIALLY, ANTICIPATE IMPROVEMENT TREATMENT WITH ANTIBIOTICS ACUTE RENAL FAILURE ON CHRONIC RENAL FAILURE - IMPROVED - ON FLUIDS - CONTINUE TO CLOSELY MONITOR RENAL FUNCTION ON PRESSOR SUPPORT CHRONIC ANTICOAGULATION - ON COUMADIN - GAVE DOSE OF LOVENOX TODAY PT WAS GIVEN VITAMIN K PRIOR TO PLACEMENT OF LINE. MECHANICAL AORTIC REPLACEMENT VALVE - ON CHRONIC ANTICOAGULATION PERIPHERAL NEUROPATHY - RESTART GABAPENTIN ONCE MEDICATION LIST HAS BEEN RECONCILED HX OF CHRONIC HYPERTENSION - CURRENTLY ON PRESSOR SUPPORT - CONTINUE WITH MONITORING. EVENTUALLY, ONCE SEPSIS IS RESOLVED, WILL HAVE TO RESTART ANTI-HYPERTENSIVES GI PROPHYLAXIS WITH PPI DVT PROPHYLAXIS ON COUMADIN CHRONICALLY - CRITICAL CARE TIME 1 HOUR TOTAL Admission Dx SEVERE SEPSIS HYPOTENSION LEUKOCYTOSIS ACUTE RENAL FAILURE ON CHRONIC RENAL FAILURE CHRONIC ANTICOAGULATION MECHANICAL AORTIC REPLACEMENT VALVE PERIPHERAL NEUROPATHY HX OF CHRONIC HYPERTENSION SEVERE SEPSIS - PT ON PRESSOR SUPPORT, CONTINUE TO WEAN ABLE - SUSPECTED PNEUMONIA ON IV ANTIBIOTICS - COVID ANTIGEN NEGATIVE, COVID AB PENDING - TWO POSITIVE BLOOD CULTURES - PENDING HYPOTENSION - ON PRESSOR SUPPORT LEUKOCYTOSIS - IMPROVED - - - CONTINUE WITH IV ANTIBIOTICS, MONITOR LABS SERIALLY, ANTICIPATE IMPROVEMENT TREATMENT WITH ANTIBIOTICS ACUTE RENAL FAILURE ON CHRONIC RENAL FAILURE - IMPROVED - ON FLUIDS - CONTINUE TO CLOSELY MONITOR RENAL FUNCTION ON PRESSOR SUPPORT CHRONIC ANTICOAGULATION - ON COUMADIN - GAVE DOSE OF LOVENOX TODAY PT WAS GIVEN VITAMIN K PRIOR TO PLACEMENT OF LINE. MECHANICAL AORTIC REPLACEMENT VALVE - ON CHRONIC ANTICOAGULATION PERIPHERAL NEUROPATHY - RESTART GABAPENTIN ONCE MEDICATION LIST HAS BEEN RECONCILED HX OF CHRONIC HYPERTENSION - CURRENTLY ON PRESSOR SUPPORT - CONTINUE WITH MONITORING. EVENTUALLY, ONCE SEPSIS IS RESOLVED, WILL HAVE TO RESTART ANTI-HYPERTENSIVES GI PROPHYLAXIS WITH PPI DVT PROPHYLAXIS ON COUMADIN CHRONICALLY - CRITICAL CARE TIME 1 HOUR TOTAL Clinical Quality Measures Admission Status Admission Dx SEVERE SEPSIS HYPOTENSION LEUKOCYTOSIS ACUTE RENAL FAILURE ON CHRONIC RENAL FAILURE CHRONIC ANTICOAGULATION MECHANICAL AORTIC REPLACEMENT VALVE PERIPHERAL NEUROPATHY HX OF CHRONIC HYPERTENSION SEVERE SEPSIS - PT ON PRESSOR SUPPORT, CONTINUE TO WEAN ABLE - SUSPECTED PNEUMONIA ON IV ANTIBIOTICS - COVID ANTIGEN NEGATIVE, COVID AB PENDING - TWO POSITIVE BLOOD CULTURES - PENDING HYPOTENSION - ON PRESSOR SUPPORT LEUKOCYTOSIS - IMPROVED - - - CONTINUE WITH IV ANTIBIOTICS, MONITOR LABS SERIALLY, ANTICIPATE IMPROVEMENT TREATMENT WITH ANTIBIOTICS ACUTE RENAL FAILURE ON CHRONIC RENAL FAILURE - IMPROVED - ON FLUIDS - CONTINUE TO CLOSELY MONITOR RENAL FUNCTION ON PRESSOR SUPPORT CHRONIC ANTICOAGULATION - ON COUMADIN - GAVE DOSE OF LOVENOX TODAY PT WAS GIVEN VITAMIN K PRIOR TO PLACEMENT OF LINE. MECHANICAL AORTIC REPLACEMENT VALVE - ON CHRONIC ANTICOAGULATION PERIPHERAL NEUROPATHY - RESTART GABAPENTIN ONCE MEDICATION LIST HAS BEEN RECONCILED HX OF CHRONIC HYPERTENSION - CURRENTLY ON PRESSOR SUPPORT - CONTINUE WITH MONITORING. EVENTUALLY, ONCE SEPSIS IS RESOLVED, WILL HAVE TO RESTART ANTI-HYPERTENSIVES GI PROPHYLAXIS WITH PPI DVT PROPHYLAXIS ON COUMADIN CHRONICALLY - CRITICAL CARE TIME 1 HOUR TOTAL DVT/VTE Risk/Contraindication: Risk Factor Score Per Nursin RFS Level Per Nursing on Admit: 4+=Very High Contraindications-Pharm: Other *list below* Other: PT ON COUMADIN OTTO MILLER MD Aug 26, 2019 09:07
[2019-08-26 10:27] LABS: INR 3.7 (0.8-1.4); PROTHROMBIN TIME PATIENT 38.3 SEC (12.2-14.7)
[2019-08-26] MEDS: POTASSIUM CL 10MEQ/50ML IVPB 50 ML IV SCH ×4 (10:30→13:21)
[2019-08-26] MEDS: MAGNESIUM 1 GM/100 ML IVPB 100 ML IV SCH ×2 (10:31→11:36)
[2019-08-26] MEDS ORDERED: LINE600T12 PO (10:53)
--- NOTE | 2019-08-26 11:03 | D/C HH Face to Face Order ---
D/C Face to Face Orders Reconcile Patient Problems Problems Reviewed?: Yes Instructions for Patient [facility] Patient Instructions/FollowUp: [facility] [address] pickens Physician to follow Patient: sandee Discharge Diet for Home: Regular Diet Patient Problems: abscess of groin Patient Data-Allergies,Ht & Wt Patient Allergies: Coded Allergies: morphine (Verified Allergy, Unknown, 09/01/16) Height (Feet): 5 Height (Inches): 3.00 Weight (Pounds): 150 Weight (Ounces): 6.0 Home Health Need/Face to Face Date of Face to Face: Aug 26, 2019 Clinical Findings: Generalized weakness and fatigue, Muscle weakness, Wound infection (right groin ) I have seen Pt [id number]: Yes Discharged To: Home Diagnosis/Conditions: abscess of groin on right peripheral vascular disease hypertension chronic pain Patient is Homebound due to: Non-weight bearing Homebound Status Due to the above stated illness, injury or surgical procedure (medical condition or diagnosis) and associated clinical findings, the patient is homebound because of his/her inability to leave home except with aid of a supportive device and/or person AND leaving the home requires a considerable and taxing effort or is medically contraindicated. Pt req the following assistanc: Wheelchair Home Health Nursing Orders Home Health Services Order: Nursing Services, Wound Care-Eval/Treat wet to dry wound packing twice daily - and PRN soaked wound in right groin - please teach pt or his partner how to pack wound correctly INR bi weekly x 2 weeks then weekly x 2 weeks then monthly thereafter Home Health Infusion Therapy Line Start Date: Aug 20, 2019 Home Health Lab Orders Labs (specify type/freq): INR bi weekly x 2 weeks then weekly x 2 weeks then monthly thereafter Certify Stmt I certify that this patient is under my care and that I, a nurse practitioner or a physician; a surgical assistant certified working with me, had a face to face encounter that - meets the physician face to face encounter requirements with this patient as dated. OTTO MILLER MD Aug 26, 2019 11:00
--- NOTE | 2019-08-26 11:39 | NUR ---
FINAL DISCHARGE PLAN: Patient is discharge to home with new Home Health Care through [facility]. Have faxed information and spoken to Luci. Taryn GARCIA is to call his ride and let her know that he definitely is discharge and will need to be picked up.
[2019-08-26 12:00] VITALS: BP 103/72
[2019-08-26] MEDS: VANCOMYCIN 1500 MG/NS 500 ML IVPB IV SCH ×2 (12:41)
--- NOTE | 2019-08-26 14:04 | Progress Note ---
Subjective Date Seen by a Provider: Aug 26, 2019 Time Seen by a Provider: 14:00 Subjective/Events-last exam doing well. wound granulating in. no fever.chills. no bleeding. Objective Exam Vital Signs Date Time Temp Pulse Resp B/P (MAP) Pulse Ox O2 Delivery O2 Flow Rate FiO2 08/26/19 12:00 36.8 107 20 103/72 (82) 96 Room Air 08/26/19 10:43 93 Room Air 08/26/19 09:00 91 Room Air 08/26/19 08:00 36.7 99 18 123/66 (85) 97 Room Air 08/26/19 07:16 91 Room Air 08/26/19 04:00 36.3 87 20 121/68 (85) 94 Room Air 08/26/19 00:00 36.1 98 20 127/59 (81) 95 Room Air 08/25/19 20:54 95 Room Air 08/25/19 20:30 95 Room Air 2.00 08/25/19 20:20 36.4 78 20 110/53 (72) 96 Room Air 08/25/19 16:40 36.4 87 18 111/67 (82) 96 Room Air 08/25/19 14:53 94 Room Air I & O 08/26/19 07:00 Intake Total 5675 ml Output Total 6325 ml Balance -650 ml Capillary Refill : Less Than 3 SecondsLess Than 3 Seconds General Appearance: No Apparent Distress HEENT: PERRL/EOMI Neck: Full Range of Motion Respiratory: Decreased Breath Sounds, Rhonci Cardiovascular: Regular Rate, Rhythm Gastrointestinal: normal bowel sounds, non tender, soft Extremity: Slow Capillary Refill Neurologic/Psychiatric: Alert, Oriented x3 Skin: Normal Color, Other (right groin wound granulating in well) Lymphatic: No Adenopathy Results Lab Laboratory Tests 08/26/19 06:00: White Blood Count 8.8, Red Blood Count 2.90L, Hemoglobin 8.7L, Hematocrit 26L, Mean Corpuscular Volume 89, Mean Corpuscular Hemoglobin 30, Mean Corpuscular Hemoglobin Concent 34, Red Cell Distribution Width 14.7H, Platelet Count 285, Mean Platelet Volume 10.5H, Neutrophils (%) (Auto) 78H, Lymphocytes (%) (Auto) 15, Monocytes (%) (Auto) 5, Eosinophils (%) (Auto) 2, Basophils (%) (Auto) 0, Neutrophils # (Auto) 6.9, Lymphocytes # (Auto) 1.3, Monocytes # (Auto) 0.4, Eosinophils # (Auto) 0.2, Basophils # (Auto) 0.0, Sodium Level 144, Potassium Level 3.0L, Chloride Level 112H, Carbon Dioxide Level 21, Anion Gap 11, Blood Urea Nitrogen 9, Creatinine 0.91, Estimat Glomerular Filtration Rate > 60, BUN/ Creatinine Ratio 10, Glucose Level 84, Calcium Level 8.3L, Phosphorus Level 3.0, Magnesium Level 1.2L 08/26/19 10:00: Prothrombin Time 38.3H, INR Comment 3.7H Microbiology 08/24/19 Gram Stain - Final, Resulted 08/24/19 Wound Culture - Preliminary, Resulted Staphylococcus aureus 08/22/19 Blood Culture - Preliminary, Resulted No growth 08/20/19 MRSA Screen - Final, Complete 08/20/19 Urine Culture - Final, Complete Normal skin cat Assessment/Plan Assessment/Plan Assess & Plan/Chief Complaint right groin abscess s/p spontaneous drainage. cont wound care. cont abx. ok for home when ok with primary. Clinical Quality Measures DVT/VTE Risk/Contraindication: Risk Factor Score Per Nursin RFS Level Per Nursing on Admit: 4+=Very High Contraindications-Pharm: Other *list below* Other: PT ON COUMADIN BRENDA MUSE MD Aug 26, 2019 14:04
[2019-08-26] MEDS ORDERED: warFARin 2 MG (COUMADIN) TAB PO SCH (18:00)
== END 2019-08-26 16:28 | disposition home health service (06) | DRG 871 ==
LOC: EDUNIT# 17:56 → ER 17:57 → ICU 20:06 → 4TH 08-25 13:30 → EDPENDDISDT 08-26 11:30 → EDPENDDISTM 08-26 11:30
PROVIDERS: ADMIT Family Medicine; ATTEND Family Medicine
PROC: 02HV33Z Insertion of Infusion Device into Superior Vena Cava, Percutaneous Approach (ICD-10-PCS; principal; 2019-08-20)
DX: A41.9 Sepsis, unspecified organism (principal); R65.21 Severe sepsis with septic shock; J18.9 Pneumonia, unspecified organism; N17.9 Acute kidney failure, unspecified; E87.2 Acidosis; J44.0 Chronic obstructive pulmonary disease with (acute) lower respiratory infection; L02.214 Cutaneous abscess of groin; I12.9 Hypertensive chronic kidney disease with stage 1 through stage 4 chronic kidney disease, or unspecified chronic kidney disease; N18.9 Chronic kidney disease, unspecified; E11.42 Type 2 diabetes mellitus with diabetic polyneuropathy; I87.2 Venous insufficiency (chronic) (peripheral); D64.9 Anemia, unspecified; I25.10 Atherosclerotic heart disease of native coronary artery without angina pectoris; E78.00 Pure hypercholesterolemia, unspecified; K57.90 Diverticulosis of intestine, part unspecified, without perforation or abscess without bleeding; L30.4 Erythema intertrigo; Z20.828 Contact with and (suspected) exposure to other viral communicable diseases; R79.1 Abnormal coagulation profile; Z95.2 Presence of prosthetic heart valve; Z79.01 Long term (current) use of anticoagulants; Z95.1 Presence of aortocoronary bypass graft; Z95.5 Presence of coronary angioplasty implant and graft; Z87.891 Personal history of nicotine dependence; Z89.612 Acquired absence of left leg above knee; Z86.59 Personal history of other mental and behavioral disorders
CPT/HCPCS: 36415; 36600; 71045; 80048; 80053; 80202; 81000; 82728; 82805; 83540; 83605; 83735; 84100; 84145; 85007; 85025; 85027; 85610; 85730; 86769; 86900; 86901; 87040; 87070; 87077; 87081; 87088; 87186; 87205; 87631; 87635; 87804; 93005; 94640; 94760; 96361; 96365; 96375

== ENCOUNTER 2019-08-31 09:50 | Inpatient (IN) | payer MEDICARE, MEDICAID ==
[~2019-08-31] VITALS: Ht 165 cm; Wt 79.8 kg
[2019-08-31] VITALS (15 sets, daily range): BP systolic 72–150; BP diastolic 42–91
[~2019-08-31 09:50] MED LIST changes: +AMOX-358 PO; +LACT1CAP87 PO; +LINE600T12 PO; +MUPI22OI2 NSEACH; +NYST15CR TP; -WARF1TAB PO; +WRF1T PO
--- NOTE | 2019-08-31 10:05 | NUR ---
This RN received report from JOSE Quintero. Pt arrived via EMS on applied, NC@7L. Dr Irby at bedside at this time. #22G started in Right shoulder by JOSE Quintero. This RN will continue to monitor.
[2019-08-31] MEDS ORDERED: RX-ALBUTEROL INHALER (PROAIR) 8.5 GM IH STA (10:10)
--- NOTE | 2019-08-31 11:10 | NUR ---
ASSUMED CARE OF PT.
--- NOTE | 2019-08-31 11:10 | NUR ---
This RN gave report to JOSE Jaime at this time.
[2019-08-31 11:22] LABS: BASOPHILS % (AUTO) 0 % (0-10); EOSINOPHILS # (AUTO) 0.2 10^3/uL (0.0-0.3); EOSINOPHILS % (AUTO) 1 % (0-10); HEMATOCRIT 32 % (40-54); HEMOGLOBIN 10.3 G/DL (13.3-17.7); LYMPHOCYTES # (AUTO) 1.6 X 10^3 (1.0-4.0); LYMPHOCYTES % (AUTO) 7 % (12-44); MEAN CORPUSCULAR HEMOGLOBIN 30 PG (25-34); MEAN CORPUSCULAR HGB CONC 32 G/DL (32-36); MEAN CORPUSCULAR VOLUME 93 FL (80-99); MEAN PLATELET VOLUME 10.4 FL (7.4-10.4); MONOCYTES # (AUTO) 0.9 X 10^3 (0.0-1.0); MONOCYTES % (AUTO) 4 % (0-12); NEUTROPHILS # (AUTO) 21.2 X 10^3 (1.8-7.8); NEUTROPHILS % (AUTO) 89 % (42-75); PLATELET COUNT 514 10^3/uL (130-400); RED CELL DISTRIBUTION WIDTH 15.9 % (10.0-14.5); WHITE BLOOD COUNT 23.8 10^3/uL (4.3-11.0)
--- NOTE | 2019-08-31 11:27 | NUR ---
ATTEMPT FOR 2ND LINE ON PT. STUCK HIM ONCE WHICH WAS UNSUCCESSFUL. PT REFUSED MORE STICKS. WILL NOTIFY
[2019-08-31 11:28] LABS: ALBUMIN 3.1 GM/DL (3.2-4.5); POTASSIUM 3.4 MMOL/L (3.6-5.0)
[2019-08-31 11:30] LABS: CALCIUM 9.1 MG/DL (8.5-10.1)
[2019-08-31 11:31] LABS: TOTAL PROTEIN 7.4 GM/DL (6.4-8.2)
[2019-08-31 11:33] LABS: BILIRUBIN,TOTAL 0.3 MG/DL (0.1-1.0)
[2019-08-31 11:35] LABS: CREATININE SERUM 3.69 MG/DL (0.60-1.30)
[2019-08-31 11:55] LABS: ANISOCYTOSIS SLIGHT; BAND NEUTROPHILS 3 %; ELLIPT/OVALOCYTES SLIGHT; LYMPHOCYTES % (MANUAL) 15 %; MONOCYTES % (MANUAL) 2 %; NEUTROPHILS % (MANUAL) 80 %; POIKILOCYTOSIS SLIGHT
--- NOTE | 2019-08-31 11:55 | Diagnostic Imaging Report ---
INDICATION: Cough and fever. TIME OF EXAM: 11:37 AM Correlation is made with prior chest from 08/25/2019. FINDINGS: Changes of median sternotomy and CABG are noted. Lungs remain clear. No infiltrates are detected. There is no effusion or pneumothorax. IMPRESSION: No acute cardiopulmonary process is detected. Dictated by: Dictated on workstation # [id number]
[2019-08-31] MEDS ORDERED: NS IV 1000 ML 1,000 ML IV SCH ×3 (12:14→20:00)
--- NOTE | 2019-08-31 12:14 | ED General ---
General Chief Complaint: Fever-Adult/Adol Stated Complaint: DRY HEAVING Nursing Triage Note: Pt arrived to ER on RA. O2 sat 73%. o2 applied at this time. NC @ 7L. Nursing Sepsis Screen: Possible Severe Sepsis Risk Source of Information: Patient Exam Limitations: No Limitations History of Present Illness Date Seen by Provider: Aug 31, 2019 Time Seen by Provider: 09:51 Initial Comments This 74-year-old gentleman presents to the emergency room with complaints of chills. He denies any other symptoms. He was recently admitted to the ICU for sepsis due to a right groin procedural infection. He was discharged on Zyvox August 25. His culture did grow MRSA. Reportedly his caregiver did not fill his prescription for Zyvox until yesterday, August 29. There is concern that he is now septic. He was not hypoxic for EMS but did have nausea and saturations in the 70s on room air on arrival. Oxygen saturation quickly rebounded on nasal cannula. Patient denies cough or shortness of breath. His COVID-19 screening was negative during the last admission. Patient also had some dry heaving. He reports he feels dry and has had very little fluid intake. Allergies and Home Medications Allergies Coded Allergies: morphine (Verified Allergy, Unknown, 09/01/16) Home Medications Allopurinol 100 Mg Tablet, 100 MG PO DAILY, (Reported) Aspirin 81 Mg Tabec, 81 MG PO DAILY, (Reported) Carvedilol 6.25 Mg Tablet, 6.25 MG PO BID, (Reported) HOLD FOR SBP<110 Docusate Sodium 100 Mg Capsule, 100 MG PO Mo, (Reported) Famotidine 20 Mg Tablet, 20 MG PO BID Prescribed by: RAISSA OLSON on 09/14/16 0205 Gabapentin 300 Mg Capsule, 300 MG PO TID, (Reported) Hydrocodone Bit/Acetaminophen 1 Each Tablet, 1 TAB PO Q6H PRN for PAIN-MODERATE, (Reported) Lactobacillus Acidophilus 1 Each Capsule, 1 EACH PO BID Prescribed by: OTTO ALVAREZ on 08/24/19 0851 Linezolid 600 Mg Tablet, 600 MG PO BID Prescribed by: OTTO ALVAREZ on 08/26/19 1053 Lisinopril 5 Mg Tablet, 5 MG PO 1700, (Reported) Magnesium Oxide 400 Mg Tablet, 400 MG PO BID, (Reported) Multivitamin 1 Each Tablet, 1 TAB PO DAILY, (Reported) Mupirocin 22 Gm Oint...g., 0 GM NSEACH BID APPLY INTO NASAL PASSAGEWAYS Prescribed by: OTTO ALVAREZ on 08/24/19 0851 Nystatin 15 Gm Cream..g., 0 GM TP TID APPLY TO SKIN IN GROIN Prescribed by: OTTO ALVAREZ on 08/24/19 0851 Pantoprazole Sodium 40 Mg Tablet.dr, 40 MG PO DAILY, (Reported) Warfarin Sodium 2 Mg Tablet, 2 MG PO SuSa@1200, (Reported) Warfarin Sodium 2 Mg Tablet, 4 MG PO MoTuWeThFr@1200 HOLD UNTIL 09/07/16 - RESTART ROUTINE COUMADIN ON 09/07/16 Prescribed by: OTTO ALVAREZ on 09/04/16 0924 Patient Home Medication List Home Medication List Reviewed: Yes Review of Systems Review of Systems Constitutional: see HPI, chills EENTM: no symptoms reported Respiratory: see HPI Cardiovascular: no symptoms reported Gastrointestinal: no symptoms reported Musculoskeletal: no symptoms reported Skin: see HPI Psychiatric/Neurological: No Symptoms Reported Hematologic/Lymphatic: No Symptoms Reported Immunological/Allergic: no symptoms reported Past Hrlukcc-Hyiuji-Ktzvyc Hx Past Med/Social Hx: Reviewed Nursing Past Med/Soc Hx Patient Social History Alcohol Use: Occasionally Uses Number of Drinks Today: GG Alcohol Beverage of Choice: Whiskey Recreational Drug Use: No Drug of Choice: [place] Type Used: Cigarettes Former Smoker, Quit: Mar 09, 2015 2nd Hand Smoke Exposure: No Recent Foreign Travel: No Contact w/Someone Who Travel: No Recent Infectious Disease Expo: No Recent Hopitalizations: Yes Immunizations Up To Date Tetanus Booster (TDap): Less than 5yrs PED Vaccines UTD: Yes Seasonal Allergies Seasonal Allergies: Yes Past Medical History Surgeries: Yes (CABG,VALVE REPLACED,PLATE IN LEG,VASECTOMY,AKA) CABG, Coronary Stent, Open Heart Surgery, Valve Replacement, Vascular Surgery Respiratory: Yes COPD Currently Using CPAP: No Currently Using BIPAP: No Cardiac: Yes Chronic Edema/Swelling, Coronary Artery Disease, High Cholesterol, Hypertension, Peripheral Vascular, Valvular Heart Disease Neurological: Yes Neuropathy Reproductive Disorders: No Sexually Transmitted Disease: No HIV/AIDS: No Genitourinary: No Gastrointestinal: Yes Diverticulosis 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 emt intermediate anticoag therapy.) Adverse Reaction/Blood Tranf: No Family Medical History Heart Disease, Hypertension, Psychiatric Problems Physical Exam-Suspected Sepsis Physical Exam Vital Signs Vital Signs - First Documented 08/31/19 10:05 Temp 37.0 Pulse 112 Resp 24 B/P (MAP) 150/87 (108) Pulse Ox 72 O2 Delivery Room Air O2 Flow Rate 7.00 FiO2 93 Capillary Refill : Less Than 3 Seconds Blood Pressure Mean: 108 Height, Weight, BMI Height: 5'3.00" Weight: 150lbs. 6.0oz. 68.511368ne; 29.00 BMI Method:Stated General Appearance: No Apparent Distress, WD/WN HEENT: PERRL/EOMI, Normal ENT Inspection, Other (Oropharynx dry) Neck: Normal Inspection Respiratory: Lungs Clear, No Accessory Muscle Use, No Respiratory Distress, Decreased Breath Sounds, Other (Breath sounds diminished but otherwise normal) Cardiovascular: No Edema, No Murmur, Tachycardia Gastrointestinal: Non Tender, Soft; No Distended Extremity: Other (Some chronic-appearing edema and erythema of the right lower extremity. Left lower extremity amputation. Normal capillary refill in the toes) Neurologic/Psychiatric: Alert, Oriented x3, No Motor/Sensory Deficits, Normal Mood/Affect Skin: normal color, warm/dry, other (Skin clean and intact around the right inguinal wound with minimal erythema. Packing noted in the wound) Focused Exam Lactate Level 08/31/19 11:00: Lactic Acid Level 1.74 Lactic Acid Level Progress/Results/Core Measures Suspected Sepsis Recent Fever Within 48 Hours: No Infection Criteria Present: Suspected New Infection New/Unexplained Altered Menta: No Sepsis Screen: Possible Severe Sepsis Risk SIRS Temperature: Pulse: 112 Respiratory Rate: 24 Laboratory Tests 08/31/19 11:00: White Blood Count 23.8H Blood Pressure 158 /84 Mean: 108 08/31/19 11:00: Lactic Acid Level 1.74 Laboratory Tests 08/31/19 11:00: Creatinine 3.69#H, Platelet Count 514H, Total Bilirubin 0.3 08/31/19 16:00: INR Comment 4.2H 08/31/19 17:50: Creatinine 3.26#H Results/Orders Lab Results Laboratory Tests Test 08/31/19 11:00 08/31/19 15:05 08/31/19 16:00 08/31/19 17:50 Range/Units White Blood Count 23.8 H 4.3-11.0 10^3/uL Red Blood Count 3.44 L 4.35-5.85 10^6/uL Hemoglobin 10.3 L 13.3-17.7 G/DL Hematocrit 32 L 40-54 % Mean Corpuscular Volume 93 80-99 FL Mean Corpuscular Hemoglobin 30 25-34 PG Mean Corpuscular Hemoglobin Concent 32 32-36 G/DL Red Cell Distribution Width 15.9 H 10.0-14.5 % Platelet Count 514 H 130-400 10^3/uL Mean Platelet Volume 10.4 7.4-10.4 FL Neutrophils (%) (Auto) 89 H 42-75 % Lymphocytes (%) (Auto) 7 L 12-44 % Monocytes (%) (Auto) 4 0-12 % Eosinophils (%) (Auto) 1 0-10 % Basophils (%) (Auto) 0 0-10 % Neutrophils # (Auto) 21.2 H 1.8-7.8 X 10^3 Lymphocytes # (Auto) 1.6 1.0-4.0 X 10^3 Monocytes # (Auto) 0.9 0.0-1.0 X 10^3 Eosinophils # (Auto) 0.2 0.0-0.3 10^3/uL Basophils # (Auto) 0.0 0.0-0.1 10^3/uL Neutrophils % (Manual) 80 % Lymphocytes % (Manual) 15 % Monocytes % (Manual) 2 % Band Neutrophils 3 % Hypochromasia Poikilocytosis SLIGHT Anisocytosis SLIGHT Elliptocytes SLIGHT Sodium Level 144 140 135-145 MMOL/L Potassium Level 3.4 L 3.1 L 3.6-5.0 MMOL/L Chloride Level 100 104 98-107 MMOL/L Carbon Dioxide Level 31 28 21-32 MMOL/L Anion Gap 13 8 5-14 MMOL/L Blood Urea Nitrogen 18 17 7-18 MG/DL Creatinine 3.69 #H 3.26 #H 0.60-1.30 MG/DL Estimat Glomerular Filtration Rate 16 19 BUN/Creatinine Ratio 5 5 Glucose Level 106 H 103 70-105 MG/DL Lactic Acid Level 1.74 0.50-2.00 MMOL/L Calcium Level 9.1 7.6 L 8.5-10.1 MG/DL Corrected Calcium 9.8 8.5-10.1 MG/DL Total Bilirubin 0.3 0.1-1.0 MG/DL Aspartate Amino Transf (AST/SGOT) 15 5-34 U/L Alanine Aminotransferase (ALT/SGPT) 11 0-55 U/L Alkaline Phosphatase 70 40-136 U/L C-Reactive Protein High Sensitivity 17.06 H 0.00-0.50 MG/DL B-Type Natriuretic Peptide 166.7 H <100.0 PG/ML Total Protein 7.4 6.4-8.2 GM/DL Albumin 3.1 L 3.2-4.5 GM/DL Urine Color YELLOW Urine Clarity CLEAR Urine pH 5.5 5-9 Urine Specific Roann 1.010 L 1.016-1.022 Urine Protein TRACE H NEGATIVE Urine Glucose (UA) NEGATIVE NEGATIVE Urine Ketones NEGATIVE NEGATIVE Urine Nitrite NEGATIVE NEGATIVE Urine Bilirubin NEGATIVE NEGATIVE Urine Urobilinogen 0.2 < = 1.0 MG/DL Urine Leukocyte Esterase NEGATIVE NEGATIVE Urine RBC (Auto) TRACE-L NEGATIVE Urine RBC RARE /HPF Urine WBC NONE /HPF Urine Squamous Epithelial Cells 0-2 /HPF Urine Crystals NONE /LPF Urine Bacteria NEGATIVE /HPF Urine Casts NONE /LPF Urine Mucus NEGATIVE /LPF Urine Culture Indicated NO Prothrombin Time 42.2 H 12.2-14.7 SEC INR Comment 4.2 H 0.8-1.4 Activated Partial Thromboplast Time 80 H 24-35 SEC Micro Results Microbiology 08/31/19 Blood Culture - Preliminary, Resulted No growth My Orders Orders - NAVIN STAPLETON MD Cbc With Automated Diff (08/31/19 10:10) Comprehensive Metabolic Panel (08/31/19 10:10) Blood Culture (08/31/19 10:10) Sputum Culture (08/31/19 10:10) Urinalysis (08/31/19 10:10) Urine Culture (08/31/19 10:10) Protime With Inr (08/31/19 10:10) Partial Thromboplastin Time (08/31/19 10:10) Chest 1 View, Ap/Pa Only (08/31/19 10:10) Ed Iv/Invasive Line Start (08/31/19 10:10) Ed Iv/Invasive Line Start (08/31/19 10:10) Vital Signs Adult Sepsis Patie Q15M (08/31/19 10:10) O2 (08/31/19 10:10) Remove Rings In Anticipation O (08/31/19 10:10) Lactic Acid Analyzer (08/31/19 10:10) Hs C Reactive Protein (08/31/19 10:10) Rx-Albuterol Inhaler (Rx-Proair) (08/31/19 10:10) Coronavirus Sars-Cov-2 So 2018 (08/31/19 10:12) Manual Differential (08/31/19 11:00) Ed Iv/Invasive Line Start (08/31/19 12:14) Ns Iv 1000 Ml (Sodium Chloride 0.9%) (08/31/19 12:14) BNP (08/31/19 12:14) Cefepime Injection (Maxipime Injection) (08/31/19 12:30) Vancomycin Injection (Vancomycin Injecti (08/31/19 12:30) Ns Iv 1000 Ml (Sodium Chloride 0.9%) (08/31/19 12:59) Medications Given in ED Current Medications Medications Dose Ordered Sig/Celestine Route Start Time Stop Time Status Last Admin Dose Admin Cefepime HCl 2000 mg/Sterile Water 20 ml @ 240 mls/hr ONCE ONCE IV 08/31/19 12:30 08/31/19 12:35 DC 08/31/19 12:43 240 MLS/HR Vital Signs/I&O 08/31/19 08/31/19 08/31/19 08/31/19 10:05 10:05 10:05 10:06 Temp 37.0 37.0 Pulse 112 112 Resp 24 24 B/P (MAP) 150/87 (108) 158/84 (108) Pulse Ox 72 93 O2 Delivery Room Air Nasal Cannula Room Air Nasal Cannula O2 Flow Rate 7.00 7.00 FiO2 93 08/31/19 08/31/19 08/31/19 08/31/19 11:09 12:30 12:45 13:00 B/P (MAP) 132/89 (103) 79/47 (58) 72/67 (69) Pulse Ox 93 O2 Delivery Nasal Cannula O2 Flow Rate 7.00 08/31/19 08/31/19 08/31/19 08/31/19 13:12 13:30 14:30 15:00 Pulse 90 98 Resp 18 13 B/P (MAP) 98/65 (76) 121/83 (96) 108/56 129/91 (104) Pulse Ox 90 O2 Delivery Nasal Cannula Nasal Cannula O2 Flow Rate 3.00 2.00 08/31/19 08/31/19 08/31/19 08/31/19 15:50 16:00 16:04 16:05 Temp 36.8 Pulse 98 97 Resp 9 B/P (MAP) 109/64 (79) Pulse Ox 98 O2 Delivery Nasal Cannula Nasal Cannula Nasal Cannula O2 Flow Rate 2.00 2.00 2.00 08/31/19 08/31/19 08/31/19 17:00 18:00 18:45 Pulse 90 109 Resp 18 23 B/P (MAP) 130/61 (84) 85/57 (66) Pulse Ox 95 O2 Delivery Nasal Cannula Nasal Cannula Nasal Cannula O2 Flow Rate 2.00 2.00 2.00 Capillary Refill : Less Than 3 Seconds Blood Pressure Mean: 108 Progress Note : Time: 13:09 Progress Note Patient was found to be in significant acute kidney failure. 2 L of IV normal saline were ordered for the ER. IV fluids will be continued at greater than a maintenance on the floor. Patient's oxygen saturations in has been stable on nasal cannula. I suspect his hypoxia is largely due to to hypovolemia and should improve once he is hydrated. At this time patient has refused a repeat blood draw for the second blood culture and for the coagulation panel which is needed for his INR. I am not going to order any warfarin or other anticoagulation until his INR is known. He agrees to try a blood draw again once he is hydrated. Please note that a second blood culture was not drawn b efore starting antibiotics because of this situation. Patient had a negative COVID 19 screening during his prior admission but will be rescreened again because of his symptoms and his admission and in ICU. Cefepime and vancomycin were ordered for initial antibiotic management. I discussed the case with Dr. Alvarez. She initially requested transfer to a facility with nephrology consultation. However, both [facility] [place] are on MedSurg diversion. Because of this we have elected to admit him here and try to correct his renal failure locally. Patient agrees. Although he has tachycardia, leukocytosis, and elevated CRP, I do not believe he has severe sepsis. He did have 2 systolic blood pressures in the 70s before fluid resuscitation. Again, I believe this is due to volume status and not severe sepsis or shock. After 900 mL saline bolus his systolic blood pressure is now 120. Diagnostic Imaging Diagonstic Imaging: Xray Plain Films/CT/US/NM/MRI: chest Comments Chest x-ray viewed by me and report reviewed. See report below: NAME: YVES [facility] REC#: [id number] PT STATUS: REG ER : 1945 PHYSICIAN: NAVIN STAPLETON MD ADMIT DATE: 08/31/19/ER Draft Date of Exam:08/31/19 CHEST 1 VIEW, AP/PA ONLY INDICATION: Cough and fever. TIME OF EXAM: 11:37 AM Correlation is made with prior chest from 08/25/2019. FINDINGS: Changes of median sternotomy and CABG are noted. Lungs remain clear. No infiltrates are detected. There is no effusion or pneumothorax. IMPRESSION: No acute cardiopulmonary process is detected. Dictated on workstation # [id number] Dict: 08/31/19 1149 Trans: 08/31/19 1154 [id number] Interpreted by: LAURA IBARRA MD Departure Communication (Admissions) Time/Spoke to Admitting Phy: 13:00 Dr. Alvarez Impression Primary Impression: Sepsis Qualified Codes: A41.9 - Sepsis, unspecified organism; R65.20 - Severe sepsis without septic shock; N17.9 - Acute kidney failure, unspecified Additional Impressions: Acute kidney injury Hypoxia Disposition: ADMITTED INPATIENT Condition: Improved Admissions Decision to Admit Reason: Admit from ER (General) Decision to Admit/Date: Aug 31, 2019 Time/Decision to Admit Time: 12:10 Departure-Patient Inst. Referrals: OTTO ALVAREZ MD (PCP/Family) Primary Care Physician NAVIN STAPLETON MD Aug 31, 2019 12:14
[2019-08-31] MEDS ORDERED: CEFEPIME INJECTION 2,000 MG in WATER (STERILE) FOR INJECTION 20 ML IV ONE (12:30)
[2019-08-31] MEDS: VANCOMYCIN INJECTION 750 MG in NS (IVPB) 250 ML IV SCH ×2 (12:56→14:04)
--- NOTE | 2019-08-31 12:58 | NUR ---
SCRAP PILER CONTACTED FOR A ROOM AND A LOWE AIR LOSS MATRESS
--- NOTE | 2019-08-31 13:16 | NUR ---
DR CAMPOS OF X2 HYPOTENSIVE READINGS. ADMISSION WILL BE TO THE UNIT. ASE CERTIFIED TECHNICIAN NOTIFIED.
[2019-08-31] MEDS ORDERED: VANCOMYCIN 750 MG/VIAL IV ONE (13:40)
[2019-08-31] MEDS ORDERED: NS (IVPB) 250 ML ONE (13:40)
[2019-08-31 15:13] LABS: BILIRUBIN,URINE NEGATIVE (NEGATIVE); CLARITY,URINE CLEAR; COLOR,URINE YELLOW; GLUCOSE, URINE (UA) NEGATIVE (NEGATIVE); KETONES,URINE NEGATIVE (NEGATIVE); LEUKOCYTE ESTERASE ,URINE NEGATIVE (NEGATIVE); NITRITE,URINE NEGATIVE (NEGATIVE); PH,URINE 5.5 (5-9); PROTEIN,URINE TRACE (NEGATIVE)
[2019-08-31 15:40] LABS: BACTERIA,URINE NEGATIVE /HPF; RBC,URINE RARE /HPF; SQUAMOUS EPITHELIAL CELL,UR 0-2 /HPF
--- NOTE | 2019-08-31 16:12 | NUR ---
CR 3.69; CR CL < 30; WT 81 KG; VANCO 1500 MG IV GIVEN IN ER; CONTINUE WITH VANCO 1000 MG IV Q24H; TROUGH AFTER 2ND DOSE
[2019-08-31] MEDS ORDERED: ONDANSETRON 4 MG/2 ML (SDV) Z0FRAN IV PRN (16:15)
[2019-08-31] MEDS ORDERED: RT-ALBUTEROL INHALER HFA (VENTOLIN HFA) 8 GM IH PRN (16:15)
[2019-08-31] MEDS ORDERED: CATHETER FLUSH 10 ML SYR IV PRN (16:15)
[2019-08-31] MEDS: CEFEPIME 2,000 MG/SWFI 20 ML IV PUSH IV SCH ×2 (16:39)
[2019-08-31] MEDS: NS IV 1000 ML 1,000 ML IV SCH (16:40)
[2019-08-31 17:12] LABS: INR 4.2 (0.8-1.4); PROTHROMBIN TIME PATIENT 42.2 SEC (12.2-14.7)
--- NOTE | 2019-08-31 17:51 | History & Physical ---
History of Present Illness History of Present Illness Reason for visit/HPI PT IS A 74 Y/O MALE WHO IS WELL KNOWN TO ME FROM CLINIC. HE PRESENTED TO THE EMERGENCY DEPARTMENT AFTER HIS CAREGIVER REPORTED THAT SHE W UNABLE TO CONTINUE TO CARE FOR HIM IN HIS HOME. SHE REPORTED THAT SHE DID NOT AIR BRUSH ARTIST HIS MEDICATIONS UPON DISCHARGE FROM THE HOSPITAL LAST WEEK. SHE ALSO REPORTS THAT SHE WAS NOT ABLE TO KEEP HIS RIGHT GROIN WOUND CLEAN. SHE CALLED THE AMBULANCE AFTER HE WAS "CHILLING, VOMITING AND HAVING DIARRHEA". HE WAS FOUND TO HAVE ACUTE RENAL FAILURE IN THE EMERGENCY DEPARTMENT Date of Admission Aug 31, 2019 at 13:34 Date Seen by a Provider: Aug 31, 2019 Time Seen by a Provider: 09:20 I consulted on this patient on 08/31/19 17:51 Attending Physician Otto Alvarez MD Admitting Physician Otto Alvarez MD Consult Allergies and Home Medications Allergies Coded Allergies: morphine (Verified Allergy, Unknown, 09/01/16) Home Medications Allopurinol 100 Mg Tablet, 100 MG PO DAILY, (Reported) Aspirin 81 Mg Tablet.dr, 81 MG PO DAILY, (Reported) Carvedilol 6.25 Mg Tablet, 6.25 MG PO BID, (Reported) Docusate Sodium 100 Mg Capsule, 100 MG PO DAILY, (Reported) Famotidine 20 Mg Tablet, 20 MG PO DAILY, (Reported) Gabapentin 300 Mg Capsule, 300 MG PO TID, (Reported) Hydrocodone Bit/Acetaminophen 1 Ea Tablet, 1 EA PO Q6H PRN for PAIN-MODERATE (5- 7) Prescribed by: OTTO ALVAREZ on 09/02/19957 Lactobacillus Acidophilus/Pect 1 Each Capsule, 2 EACH PO TIDWM Prescribed by: OTTO ALVAREZ on 09/02/19957 Linezolid 600 Mg Tablet, 600 MG PO BID, (Reported) FILLED 08-29-2019 #16/8 DAY SUPPLY Lisinopril 5 Mg Tablet, 5 MG PO DAILY, (Reported) Magnesium Oxide 400 Mg Tablet, 400 MG PO DAILY, (Reported) Metronidazole 500 Mg Tablet, 500 MG PO TID, (Reported) FILLED 08-30-2019 #21/7 DAY SUPPLY Mirtazapine 30 Mg Tablet, 30 MG PO HS PRN for SLEEP Prescribed by: OTTO ALVAREZ on 09/02/19957 Multivitamin 1 Each Tablet, 1 EACH PO DAILY, (Reported) Nystatin 15 Gm Cream..g., 0 GM TP TID APPLY TO SKIN IN GROIN Prescribed by: OTTO ALVAREZ on 08/24/19 0851 Potassium Chloride 10 Meq Capsule.er, 10 MEQ PO BID, (Reported) Rosuvastatin Calcium 20 Mg Tablet, 20 MG PO HS, (Reported) Warfarin Sodium 2 Mg Tablet, 2 MG PO SANTOS,MO,WED,FRI,SAT on hold until 09/05/2019 TAKES 2MG ON SUN,MON,THU,FRI&SAT TAKES 4 MG (2 2MG TABS) ON TUES &THURS Prescribed by: OTTO ALVAREZ on 09/02/19957 Warfarin Sodium 2 Mg Tablet, 4 MG PO ,THUR on hold until 09/05/2019 TAKES 2MG ON SUN,THU,THU,FRI&SAT TAKES 4 MG (2 2MG TABS) ON TUES &THURS Prescribed by: OTTO ALVAERZ on 09/02/19957 Patient Home Medication List Home Medication List Reviewed: Yes Past Qfppuqi-Dwzcys-Zqpris Hx Past Med/Social Hx: Reviewed Nursing Past Med/Soc Hx, Reviewed and Corrections made Patient Social History Marrital Status: single Living Status: LIVES IN HOME IN [place] Employed/Student: unemployed Alcohol Use: Occasionally Uses Number of Drinks Today: GG Alcohol Beverage of Choice: Whiskey Recreational Drug Use: No Drug of Choice: [place] Smoking Status: Former Smoker Former Smoker, Quit: Mar 09, 2015 Type Used: Cigarettes 2nd Hand Smoke Exposure: No Physical Abuse Screen: No Sexual Abuse: No Recent Foreign Travel: No Contact w/other who traveled: No Recent Hopitalizations: Yes Recent Infectious Disease Expo: No Immunizations Up To Date Tetanus Booster (TDap): Less than 5yrs Pediatric: Yes Seasonal Allergies Seasonal Allergies: Yes Past Medical History Surgeries: Amputation, Angioplasty, CABG, Coronary Stent, Open Heart Surgery, Valve Replacement, Vascular Surgery Currently Using CPAP: No Currently Using BIPAP: No Cardiac: Chronic Edema/Swelling, Coronary Artery Disease, High Cholesterol, Hypertension, Peripheral Vascular, Valvular Heart Disease Neurological: Neuropathy Reproductive: No Sexually Transmitted Disease: No HIV/AIDS: No Gastrointestinal: Diverticulosis Musculoskeletal: Amputee Endocrine: Diabetes, Non-Insulin dep Loss of Vision: Denies Hearing Impairment: Hard of Hearing Psychosocial: Violent Behavior History of Blood Disorders: Yes (chronic anemia. fpc anticoag therapy.) Adverse Reaction to Blood [place]: No Family History Reviewed Nursing Family Hx Heart Disease, Hypertension, Psychiatric Problems Review of Systems Constitutional: No chills, No fever; malaise, weakness EENTM: No hearing loss, No hoarseness, No throat pain Respiratory: No cough, No dyspnea on exertion, No short of breath Cardiovascular: No chest pain, No palpitations Gastrointestinal: No abdominal pain, No constipation; diarrhea; No nausea Genitourinary: frequency, incontinence Musculoskeletal: muscle weakness, other (PAIN IN RIGHT GROIN AND IN LEFT STUMP) Skin: other (OPEN WOUND RIGHT GROIN) Psychiatric/Neurological: No Symptoms Reported All Other Systems Reviewed Negative Unless Noted: Yes Physical Exam Vital Signs Vital Signs - First Documented 08/31/19 10:05 Temp 37.0 Pulse 112 Resp 24 B/P (MAP) 150/87 (108) Pulse Ox 72 O2 Delivery Room Air O2 Flow Rate 7.00 FiO2 93 Capillary Refill : Less Than 3 Seconds Height, Weight, BMI Height: 5'3.00" Weight: 150lbs. 6.0oz. 68.698551mp; 29.00 BMI Method:Stated General Appearance: No Apparent Distress, WD/WN Eyes: Bilateral Eye Normal Inspection, Bilateral Eye PERRL, Bilateral Eye EOMI HEENT: PERRL/EOMI, Pharynx Normal Neck: Full Range of Motion, Non Tender, Supple Respiratory: Chest Non Tender, Decreased Breath Sounds Cardiovascular: Regular Rate, Rhythm, Normal Peripheral Pulses Gastrointestinal: Normal Bowel Sounds, No Organomegaly, No Pulsatile Mass, Non Tender, Soft Rectal: Deferred Back: Normal Inspection, No CVA Tenderness Extremity: Other (LEFT LEG AMPUTATED AT UPPER THIGH, ULCERATION IN RIGHT GROIN) Neurologic/Psychiatric: Alert, Oriented x3, No Motor/Sensory Deficits, Normal Mood/Affect, chief radiology II-XII Norm as Tested Skin: Other (ULCER IN RIGHT GROIN - FROM ABSCESS - TISSUE AROUND THE ROOM IS SOFT BUT SLIGHTLY EDEMATOUS) Assessment/Plan Assessment and Plan ACUTE RENAL FAILURE SEPSIS RIGHT GROIN INFECTION MRSA OPEN WOUND WEAKNESS PARTIAL AMPUTATION STATUS PAD HYPOTENSION RECENT HOSPITALIZATION WITH SEPSIS SUPRA-THERAPEUTIC INR ACUTE RENAL FAILURE - FLUIDS AT 150ML/HR - WILL CONTINUE WITH SUPPORTIVE CARE, MONITORING OF LABS. SEPSIS WITH RIGHT GROIN INFECTION MRSA AND OPEN WOUND - CONTINUE WITH ANTIBIOTICS - MONITOR WOUND, DRESSING CHANGES BID WEAKNESS WITH PARTIAL AMPUTATION STATUS - CONTINUE WITH SUPPORTIVE CARE, WILL NEED THERAPY ON DISCHARGE. PAD - HOLDING COUMADIN TODAY DUE TO HIS SUPRA-THERAPEUTIC STATUS HYPOTENSION - MONITOR PRESSURE CLOSELY - SHOULD IMPROVE WITH HYDRATION WELL RESOLUTION OF INFECTION SUPRA-THERAPEUTIC INR - HOLDING COUMADIN AT THIS TIME - MONITOR SERIALLY INR'S AND RESTART COUMADIN WHEN INR AT OR BELOW 2.0 Admission Diagnosis ACUTE RENAL FAILURE SEPSIS RIGHT GROIN INFECTION MRSA OPEN WOUND WEAKNESS PARTIAL AMPUTATION STATUS PAD HYPOTENSION RECENT HOSPITALIZATION WITH SEPSIS SUPRA-THERAPEUTIC INR Admission Status: Inpatient Order (span 2 midnights) Reason for Inpatient Admission: SEPSIS WILL REQUIRE AT LEAST 48 HOURS FOR ANTIBIOTICS AND STABILIZATION Clinical Quality Measures DVT/VTE Risk/Contraindication: Risk Factor Score Per Nursin RFS Level Per Nursing on Admit: 4+=Very High OTTO ALVAREZ MD Aug 31, 2019 17:51
[2019-08-31 18:14] LABS: POTASSIUM 3.1 MMOL/L (3.6-5.0)
[2019-08-31 18:15] LABS: CALCIUM 7.6 MG/DL (8.5-10.1)
[2019-08-31 18:19] LABS: CREATININE SERUM 3.26 MG/DL (0.60-1.30)
[2019-08-31] MEDS ORDERED: KCL 20 MEQ TAB (K-DUR) PO NR (20:00)
[2019-08-31] MEDS: inSUlin ASPART (NovoLOG) 1 UNIT/0.01 ML (CHARGE PER UNIT) SC SCH (22:01)
[2019-09-01] VITALS (19 sets, daily range): BP systolic 61–142; BP diastolic 43–81
[2019-09-01] MEDS: NS IV 1000 ML 1,000 ML IV SCH ×3 (00:25→13:00)
[2019-09-01 03:52] LABS: BASOPHILS % (AUTO) 0 % (0-10); EOSINOPHILS # (AUTO) 0.2 10^3/uL (0.0-0.3); EOSINOPHILS % (AUTO) 1 % (0-10); HEMATOCRIT 22 % (40-54); LYMPHOCYTES # (AUTO) 1.7 X 10^3 (1.0-4.0); LYMPHOCYTES % (AUTO) 12 % (12-44); MEAN CORPUSCULAR HEMOGLOBIN 30 PG (25-34); MEAN CORPUSCULAR HGB CONC 32 G/DL (32-36); MEAN CORPUSCULAR VOLUME 94 FL (80-99); MEAN PLATELET VOLUME 10.2 FL (7.4-10.4); MONOCYTES # (AUTO) 0.9 X 10^3 (0.0-1.0); MONOCYTES % (AUTO) 7 % (0-12); NEUTROPHILS # (AUTO) 11.4 X 10^3 (1.8-7.8); NEUTROPHILS % (AUTO) 80 % (42-75); PLATELET COUNT 299 10^3/uL (130-400); RED CELL DISTRIBUTION WIDTH 15.9 % (10.0-14.5); WHITE BLOOD COUNT 14.2 10^3/uL (4.3-11.0)
[2019-09-01 03:57] LABS: HEMOGLOBIN 6.9 G/DL (13.3-17.7); POTASSIUM 3.3 MMOL/L (3.6-5.0)
[2019-09-01 03:58] LABS: CALCIUM 7.2 MG/DL (8.5-10.1)
[2019-09-01 04:02] LABS: PHOSPHORUS 3.1 MG/DL (2.3-4.7)
[2019-09-01 04:43] LABS: CREATININE SERUM 3.26 MG/DL (0.60-1.30)
[2019-09-01] MEDS ORDERED: NS IV 500 ML 500 ML IV SCH (04:45)
[2019-09-01 04:49] LABS: MAGNESIUM 0.9 MG/DL (1.6-2.4)
[2019-09-01] MEDS: KCL 20 MEQ TAB (K-DUR) PO SCH (05:53)
[2019-09-01] MEDS: MAGNESIUM 1 GM/100 ML IVPB 100 ML IV SCH ×6 (05:53→10:56)
[2019-09-01] MEDS: POTASSIUM CL 10MEQ/50ML IVPB 50 ML IV SCH (05:53)
[2019-09-01] MEDS: inSUlin ASPART (NovoLOG) 1 UNIT/0.01 ML (CHARGE PER UNIT) SC SCH ×4 (06:17→21:04)
[2019-09-01] MEDS ORDERED: NS IV 500 ML 500 ML ONE (06:19)
[2019-09-01 07:51] LABS: BASOPHILS % (AUTO) 0 % (0-10); EOSINOPHILS # (AUTO) 0.2 10^3/uL (0.0-0.3); EOSINOPHILS % (AUTO) 2 % (0-10); HEMATOCRIT 24 % (40-54); HEMOGLOBIN 7.4 G/DL (13.3-17.7); LYMPHOCYTES # (AUTO) 1.7 X 10^3 (1.0-4.0); LYMPHOCYTES % (AUTO) 14 % (12-44); MEAN CORPUSCULAR HGB CONC 32 G/DL (32-36); MEAN CORPUSCULAR VOLUME 94 FL (80-99); MEAN PLATELET VOLUME 10.1 FL (7.4-10.4); MONOCYTES # (AUTO) 0.7 X 10^3 (0.0-1.0); MONOCYTES % (AUTO) 6 % (0-12); NEUTROPHILS # (AUTO) 9.2 X 10^3 (1.8-7.8); NEUTROPHILS % (AUTO) 78 % (42-75); PLATELET COUNT 305 10^3/uL (130-400); RED CELL DISTRIBUTION WIDTH 15.9 % (10.0-14.5); WHITE BLOOD COUNT 11.9 10^3/uL (4.3-11.0)
[2019-09-01 07:53] LABS: MEAN CORPUSCULAR HEMOGLOBIN 29 PG (25-34)
--- NOTE | 2019-09-01 08:48 | Progress Note ---
Subjective Subjective Date Seen by Provider: Sep 01, 2019 Time Seen by Provider: 08:40 PT REPORTS THAT HE IS FEELING MUCH BETTER HE DENIES CHEST PAIN, SHORTNESS OF BREATH, ABDOMINAL PAIN, BUT DOES REPORT STILL HAVING INTERMITTENT LOOSE STOOLS. Review of Systems General: No Chills; Fatigue Pulmonary: No Dyspnea, No Cough Cardiovascular: No: Chest Pain, Palpitations Gastrointestinal: No: Nausea, Abdominal Pain Genitourinary: Other (COTA IN PLACE) Musculoskeletal: back pain, leg pain Neurological: Weakness; No: Confusion Objective Exam Vital Signs Vital Signs - First Documented 08/31/19 10:05 Temp 37.0 Pulse 112 Resp 24 B/P (MAP) 150/87 (108) Pulse Ox 72 O2 Delivery Room Air O2 Flow Rate 7.00 FiO2 93 Capillary Refill : Less Than 3 Seconds General Appearance: No Apparent Distress, WD/WN HEENT: PERRL/EOMI, Normal ENT Inspection, Other (Oropharynx dry) Neck: Normal Inspection Respiratory: Lungs Clear, No Accessory Muscle Use, No Respiratory Distress, Decreased Breath Sounds, Other (Breath sounds diminished but otherwise normal) Cardiovascular: No Edema, No Murmur, Tachycardia Gastrointestinal: Non Tender, Soft; No Distended Extremity: Other (Some chronic-appearing edema and erythema of the right lower extremity. Left lower extremity amputation. Normal capillary refill in the toes) Neurologic/Psychiatric: Alert, Oriented x3, No Motor/Sensory Deficits, Normal Mood/Affect Skin: Other (HEALING WOUND RIGHT GROIN) Results Lab Laboratory Tests 08/31/19 11:00: White Blood Count 23.8H, Red Blood Count 3.44L, Hemoglobin 10.3L, Hematocrit 32L , Mean Corpuscular Volume 93, Mean Corpuscular Hemoglobin 30, Mean Corpuscular Hemoglobin Concent 32, Red Cell Distribution Width 15.9H, Platelet Count 514H, Mean Platelet Volume 10.4, Neutrophils (%) (Auto) 89H, Lymphocytes (%) (Auto) 7L , Monocytes (%) (Auto) 4, Eosinophils (%) (Auto) 1, Basophils (%) (Auto) 0, Neutrophils # (Auto) 21.2H, Lymphocytes # (Auto) 1.6, Monocytes # (Auto) 0.9, Eosinophils # (Auto) 0.2, Basophils # (Auto) 0.0, Neutrophils % (Manual) 80, Lymphocytes % (Manual) 15, Monocytes % (Manual) 2, Band Neutrophils 3, Hypochromasia , Poikilocytosis SLIGHT, Anisocytosis SLIGHT, Elliptocytes SLIGHT, Sodium Level 144, Potassium Level 3.4L, Chloride Level 100, Carbon Dioxide Level 31, Anion Gap 13, Blood Urea Nitrogen 18, Creatinine 3.69#H, Estimat Glomerular Filtration Rate 16, BUN/Creatinine Ratio 5, Glucose Level 106H, Lactic Acid Level 1.74, Calcium Level 9.1, Corrected Calcium 9.8, Total Bilirubin 0.3, Aspartate Amino Transf (AST/SGOT) 15, Alanine Aminotransferase (ALT/SGPT) 11, Alkaline Phosphatase 70, C-Reactive Protein High Sensitivity 17.06H, B-Type Natriuretic Peptide 166.7H, Total Protein 7.4, Albumin 3.1L, Coronavirus (COVID-19)(PCR) Negative 08/31/19 15:05: Urine Color YELLOW, Urine Clarity CLEAR, Urine pH 5.5, Urine Specific [place] 1.010L, Urine Protein TRACEH, Urine Glucose (UA) NEGATIVE, Urine Ketones NEGATIVE, Urine Nitrite NEGATIVE, Urine Bilirubin NEGATIVE, Urine Urobilinogen 0.2, Urine Leukocyte Esterase NEGATIVE, Urine RBC (Auto) TRACE-L, Urine RBC RARE, Urine WBC NONE, Urine Squamous Epithelial Cells 0-2, Urine Crystals NONE, Urine Bacteria NEGATIVE, Urine Casts NONE, Urine Mucus NEGATIVE, Urine Culture Indicated NO 08/31/19 16:00: Prothrombin Time 42.2H, INR Comment 4.2H, Activated Partial Thromboplast Time 80H 08/31/19 17:50: Sodium Level 140, Potassium Level 3.1L, Chloride Level 104, Carbon Dioxide Level 28, Anion Gap 8, Blood Urea Nitrogen 17, Creatinine 3.26#H, Estimat Glomerular Filtration Rate 19, BUN/Creatinine Ratio 5, Glucose Level 103, Calcium Level 7.6L 08/31/19 21:38: Glucometer 90 09/01/19 04:00: White Blood Count 14.2H, Red Blood Count 2.33L, Hemoglobin 6.9#*L, Hematocrit 22L, Mean Corpuscular Volume 94, Mean Corpuscular Hemoglobin 30, Mean Corpuscular Hemoglobin Concent 32, Red Cell Distribution Width 15.9H, Platelet Count 299, Mean Platelet Volume 10.2, Neutrophils (%) (Auto) 80H, Lymphocytes (%) (Auto) 12, Monocytes (%) (Auto) 7, Eosinophils (%) (Auto) 1, Basophils (%) (Auto) 0, Neutrophils # (Auto) 11.4H, Lymphocytes # (Auto) 1.7, Monocytes # (Auto) 0.9, Eosinophils # (Auto) 0.2, Basophils # (Auto) 0.0, Sodium Level 142, Potassium Level 3.3L, Chloride Level 109H, Carbon Dioxide Level 25, Anion Gap 8, Blood Urea Nitrogen 17, Creatinine 3.26H, Estimat Glomerular Filtration Rate 19, BUN/Creatinine Ratio 5, Glucose Level 82, Calcium Level 7.2L, Phosphorus Level 3.1, Magnesium Level 0.9*L 09/01/19 05:00: Stool Occult Blood Immunoassay NEGATIVE 09/01/19 07:33: White Blood Count 11.9H, Red Blood Count 2.51L, Hemoglobin 7.4L, Hematocrit 24L, Mean Corpuscular Volume 94, Mean Corpuscular Hemoglobin 29, Mean Corpuscular Hemoglobin Concent 32, Red Cell Distribution Width 15.9H, Platelet Count 305, Mean Platelet Volume 10.1, Neutrophils (%) (Auto) 78H, Lymphocytes (%) (Auto) 14, Monocytes (%) (Auto) 6, Eosinophils (%) (Auto) 2, Basophils (%) (Auto) 0, Neutrophils # (Auto) 9.2H, Lymphocytes # (Auto) 1.7, Monocytes # (Auto) 0.7, Eosinophils # (Auto) 0.2, Basophils # (Auto) 0.0 Microbiology 08/31/19 Blood Culture - Preliminary, Resulted No growth Assessment/Plan Assessment/Plan Admission Dx ACUTE RENAL FAILURE SEPSIS RIGHT GROIN INFECTION MRSA OPEN WOUND WEAKNESS PARTIAL AMPUTATION STATUS PAD HYPOTENSION RECENT HOSPITALIZATION WITH SEPSIS SUPRA-THERAPEUTIC INR ANEMIA ACUTE RENAL FAILURE - FLUIDS AT 150ML/HR - WILL CONTINUE WITH SUPPORTIVE CARE, MONITORING OF LABS. SEPSIS WITH RIGHT GROIN INFECTION MRSA AND OPEN WOUND - CONTINUE WITH ANTIBIOTICS - MONITOR WOUND, DRESSING CHANGES BID WEAKNESS WITH PARTIAL AMPUTATION STATUS - CONTINUE WITH SUPPORTIVE CARE, WILL NEED THERAPY ON DISCHARGE. PAD - HOLDING COUMADIN TODAY DUE TO HIS SUPRA-THERAPEUTIC STATUS HYPOTENSION - MONITOR PRESSURE CLOSELY - SHOULD IMPROVE WITH HYDRATION WELL RESOLUTION OF INFECTION SUPRA-THERAPEUTIC INR - HOLDING COUMADIN AT THIS TIME - MONITOR SERIALLY INR'S AND RESTART COUMADIN WHEN INR AT OR BELOW 2.0 ANEMIA - IMPROVED, STABILIZED, NO TRANSFUSION NEEDED. COTA IN PLACE TO AVOID URINE IN HIS WOUND Clinical Quality Measures DVT/VTE Risk/Contraindication: Risk Factor Score Per Nursin RFS Level Per Nursing on Admit: 4+=Very High OTTO MILLER MD Sep 01, 2019 08:48
[2019-09-01] MEDS: metroNIDAZOLE 500MG/100ML IVPB 100 ML IV SCH ×3 (10:55→21:03)
[2019-09-01] MEDS: LACTOBACILLUS ACIDOPHILUS (PROBIOTIC) CAPSULE PO SCH ×3 (10:55→16:53)
--- NOTE | 2019-09-01 13:42 | NUR ---
CM/SS: Visited with pt as to consult for possible usp placement Plan: Undetermined at this time Summary: Pt is able to visit with this worker and provide information as to his home arrangement and help in the home. Pt reports living alone and has hours in the home. He reports having 40 per week and a caregiver. Pt has an [employer] worker, however he can not recall the name. He reports managing ok at home with the caregiver. Pt has some memory issues with being unable to remember names and towns that his support system lives in. Otherwise, pt seemed to be alert and able to provide adequate information. Pt does not feel like he needs to go to a nursing facility as he has a home and wants to return there. He would like to have [facility] home care instead of [facility]. Pt. given information about penitentiary, and rehab and increasing hours in the home to assist him. He ask this worker to contact his [employer] worker as well as the caregiver. Telephone call made to Toya Davis - [phone] - no answer - message left. Telephone Call From - Sushma Koehler - [phone] - She reports that pts hours have been increased to 54 hours per week, and that she wonders if the pt would go to a facility. Updated on pt indicating that he wants to return home instead of going to usp. She reports she will get in touch with the caregiver to let her know the pt's status. She is also awaiting on approval for the increase in hours. She would like to see pt go to rehab or somewhere until he is really feeling better. She would also like to be updated on pts length of stay and plan from hospital. This worker will follow up.
--- NOTE | 2019-09-01 13:56 | Physician Query Clarification ---
PQ-Conflicting Diagnosis Admission/Discharge Admission Date: Aug 31, 2019 at 13:34 Discharge Date: Dr. Alvarez, The medical record reflects the following clinical scenario: History/Risk Factors: Sepsis documented on ED impression. Right groin infection. Acute renal failure Clinical Findings: WBC 23.8, Band neutrophils 3, T 37.0, P 112, Resp 24, BP 150/87, Lactic acid 1.74, preliminary blood culture-no growth. Treatment:IV Rocephin HCI 2,000mg, IV Vancomycin HCI 750mg. Question: Do you agree with the impression of the Sepsis per ED physician, Dr. Dickey? Please document a response in Progress Note or Discharge Summary. 1. Yes 2. No 3. Other, with explanation of clinical findings 4. Clinically undetermined, no explanation for clinical findings. PHYSICIAN RESPONSE Do you agree w/Consulting Dx?: Yes Please remember a lack of response to the above will prompt a phone page by CDI/Coding staff. In responding to this query, please exercise your independent professional ju dgment. The purpose of this communication is to more accurately reflect the complexity of your patients condition. The fact that a question is asked does not imply that any particular answer is desired or expected. Thank you for your timely response to this clarification. Requestors name: Kari Thompson [facility] Phone # ext [phone] or [phone] THIS PHYSICIAN QUERY FORM IS A PERMANENT PART OF THE MEDICAL RECORD KARI THOMPSON Sep 01, 2019 13:56 OTTO ALVAREZ MD Sep 02, 2019 09:22
--- NOTE | 2019-09-01 14:05 | Physician Query Clarification ---
PQ-Intro New Diagnosis Admission/Discharge Admission Date: Aug 31, 2019 at 13:34 Discharge Date: The medical record reflects the following clinical scenario: Dr. lAvarez, History/Risk Factors: COPD History of smoking Clinical Findings: On arrival in ED 02 sats of 73% on room air, T 37.0, P 112, Resp 24. Treatment: 02 nasal cannula applied at 7L. Question: What condition best reflects the above clinical scenario? Please document a response in the Progress Noter or Discharge Summary. 1. Acute respiratory failure with hypoxia. 2. Hypoxia largely due to hypovolemia (as documented by Dr. Dickey). 3. Other, with explanation of the clinical findings. 4. Clinically undetermined, no explanation for the clinical findings. PHYSICIAN RESPONSE What condition reflects above: 2 Please remember a lack of response to the above will prompt a phone page by CDI/Coding staff. In responding to this query, please exercise your independent professional judgment. The purpose of this communication is to more accurately reflect the complexity of your patients condition. The fact that a question is asked does not imply that any particular answer is desired or expected. Thank you for your timely response to this clarification. Requestors name: Kari Thompson [facility] Phone # ext [phone] or [phone] THIS PHYSICIAN QUERY FORM IS A PERMANENT PART OF THE MEDICAL RECORD KARI THOMPSON Sep 01, 2019 14:05 OTTO ALVAREZ MD Sep 02, 2019 09:22
--- NOTE | 2019-09-01 14:25 | Physician Query Clarification ---
PQ-Uncertain Diagnosis Admission/Discharge Admission Date: Aug 31, 2019 at 13:34 Discharge Date: The medical record reflects the following clinical scenario: Dr. Alvarez, History/Risk Factors: Sepsis listed on ED impression-Dr. Dickey. Acute renal failure Clinical Findings: WBC 23.8, Band neutrophils 3, T 37.0, P 112, Resp 24, Creatinine 3.69, eGFR 16 Lactic acid 1.74. Treatment: IV Rocephin, IV Vancomycin HCI 1,000mg, IV Sodium Chloride 1,000mg. Question: Is Severe sepsis a clinically valid diagnosis? Severe sepsis was documented in the ED qualifier codes with no further documentation in the medical record. Please document a response in Progress Note or Discharge Summary. 1. Yes, clinically valid, condition resolved. 2. No, condition ruled out. 3. Other, with explanation of clinical findings. 4. Undetermined, no explanation for clinical findings. PHYSICIAN RESPONSE Diagnosis clinically valid: Yes, Conditon resolved Please remember a lack of response to the above will prompt a phone page by CDI/Coding staff. In responding to this query, please exercise your independent professional judgment. The purpose of this communication is to more accurately reflect the complexity of your patients condition. The fact that a question is asked does not imply that any particular answer is desired or expected. Thank you for your timely response to this clarification. Requestors name: Kari Thompson [facility] Phone # ext [phone] or [phone] THIS PHYSICIAN QUERY FORM IS A PERMANENT PART OF THE MEDICAL RECORD KARI THOMPSON Sep 01, 2019 14:25 OTTO ALVAREZ MD Sep 02, 2019 09:22
[2019-09-01] MEDS ORDERED: MAGN400T7 PO (16:08)
[2019-09-01] MEDS ORDERED: FAMO-119 PO (16:08)
[2019-09-01] MEDS ORDERED: POTA10CA43 PO (16:08)
[2019-09-01] MEDS ORDERED: LINE600T12 PO (16:08)
[2019-09-01] MEDS ORDERED: GABA300C PO (16:08)
[2019-09-01] MEDS ORDERED: ASPI-983 PO (16:08)
[2019-09-01] MEDS ORDERED: L. A1TAB10 PO (16:08)
[2019-09-01] MEDS ORDERED: HYDR-34 PO (16:08)
[2019-09-01] MEDS ORDERED: WARF-47 PO (16:08)
[2019-09-01] MEDS ORDERED: MIRT30TA6 PO (16:08)
[2019-09-01] MEDS ORDERED: ROSU20TA32 PO (16:08)
[2019-09-01] MEDS ORDERED: MULT-1136 PO (16:08)
[2019-09-01] MEDS ORDERED: METR-145 PO (16:08)
[2019-09-01] MEDS ORDERED: FURO40TA4 PO (16:08)
--- NOTE | 2019-09-01 16:09 | NUR ---
SPOKE WITH THE PT, WENT THRU THE EXT MED HISTORY AND CALLED [facility] TO COMPLETE THE MED REC ZYVOX 600MG WAS FILLED AND PICKED UP ON 08-29-2019 #16/8DS (THIS DID NOT SHOW ON THE EXT MED HISTORY) OTC MEDS: LACTOBACILLUS ASPIRIN 81 DOCUSATE MAG OX MTV
[2019-09-01] MEDS: CEFEPIME 2,000 MG/SWFI 20 ML IV PUSH IV SCH ×2 (16:52)
[2019-09-01] MEDS ORDERED: CEFEPIME 2 GM (MAXIPIME) VIAL ONE (16:57)
[2019-09-01] MEDS ORDERED: WATER (STERILE) FOR INJECTION 20 ML ONE (16:57)
[2019-09-01 19:01] LABS: HEMOGLOBIN 8.3 G/DL (13.3-17.7)
[2019-09-01] MEDS: HYDROcodone/APAP 7.5 MG/325 MG (LORTAB, LORCET PLUS) TABLET PO PRN (21:49)
[2019-09-02] MEDS: NS IV 1000 ML 1,000 ML IV SCH ×2 (01:00→08:44)
[2019-09-02 04:00] VITALS: BP 122/72
[2019-09-02 04:07] LABS: BASOPHILS % (AUTO) 0 % (0-10); EOSINOPHILS # (AUTO) 0.2 10^3/uL (0.0-0.3); EOSINOPHILS % (AUTO) 2 % (0-10); HEMATOCRIT 24 % (40-54); LYMPHOCYTES # (AUTO) 1.3 X 10^3 (1.0-4.0); LYMPHOCYTES % (AUTO) 12 % (12-44); MEAN CORPUSCULAR HEMOGLOBIN 30 PG (25-34); MEAN CORPUSCULAR HGB CONC 33 G/DL (32-36); MEAN CORPUSCULAR VOLUME 91 FL (80-99); MEAN PLATELET VOLUME 10.5 FL (7.4-10.4); MONOCYTES # (AUTO) 0.9 X 10^3 (0.0-1.0); MONOCYTES % (AUTO) 8 % (0-12); NEUTROPHILS # (AUTO) 8.2 X 10^3 (1.8-7.8); NEUTROPHILS % (AUTO) 78 % (42-75); PLATELET COUNT 327 10^3/uL (130-400); RED CELL DISTRIBUTION WIDTH 15.9 % (10.0-14.5); WHITE BLOOD COUNT 10.5 10^3/uL (4.3-11.0)
[2019-09-02 04:28] LABS: MAGNESIUM 2.1 MG/DL (1.6-2.4); PHOSPHORUS 3.5 MG/DL (2.3-4.7); POTASSIUM 3.1 MMOL/L (3.6-5.0)
--- NOTE | 2019-09-02 05:45 | Diagnostic Imaging Report ---
Indication: Shortness of breath Portable chest 3:56 AM There are postoperative changes from CABG and valve repair surgery. There is cardiomegaly. Pulmonary vascularity is normal. Right upper extremity PICC line tip projects over the SVC. There are no effusions or pneumothoraces. IMPRESSION: Postsurgical changes in the chest. There is cardiomegaly without evidence of pulmonary venous hypertension. No change in the chest compared to 08/31/2019. Dictated by: Dictated on workstation # [id number]
[2019-09-02] MEDS: MAGNESIUM 1 GM/100 ML IVPB 100 ML IV SCH (06:01)
[2019-09-02] MEDS: POTASSIUM CL 10MEQ/50ML IVPB 50 ML IV SCH (06:01)
[2019-09-02] MEDS: inSUlin ASPART (NovoLOG) 1 UNIT/0.01 ML (CHARGE PER UNIT) SC SCH ×2 (06:02→11:47)
[2019-09-02] MEDS: KCL 20 MEQ TAB (K-DUR) PO SCH (06:02)
[2019-09-02] MEDS: metroNIDAZOLE 500MG/100ML IVPB 100 ML IV SCH ×2 (06:14→13:28)
[2019-09-02 07:23] VITALS: BP 137/74
[2019-09-02] MEDS: LACTOBACILLUS ACIDOPHILUS (PROBIOTIC) CAPSULE PO SCH ×2 (08:42→13:15)
[2019-09-02] MEDS: HYDROcodone/APAP 7.5 MG/325 MG (LORTAB, LORCET PLUS) TABLET PO PRN (08:42)
[2019-09-02] MEDS ORDERED: KCL 20 MEQ TAB (K-DUR) PO ONE ×2 (09:00→11:00)
--- NOTE | 2019-09-02 09:23 | Progress Note ---
Subjective Subjective Date Seen by Provider: Sep 02, 2019 Time Seen by Provider: 09:20 SEE DC SUMMARY Objective Exam Vital Signs Vital Signs - First Documented 08/31/19 10:05 Temp 37.0 Pulse 112 Resp 24 B/P (MAP) 150/87 (108) Pulse Ox 72 O2 Delivery Room Air O2 Flow Rate 7.00 FiO2 93 Capillary Refill : Less Than 3 Seconds General Appearance: No Apparent Distress, WD/WN HEENT: PERRL/EOMI, Normal ENT Inspection, Other (Oropharynx dry) Neck: Normal Inspection Respiratory: Lungs Clear, No Accessory Muscle Use, No Respiratory Distress, Decreased Breath Sounds, Other (Breath sounds diminished but otherwise normal) Cardiovascular: No Edema, No Murmur, Tachycardia Gastrointestinal: Non Tender, Soft; No Distended Extremity: Other (Some chronic-appearing edema and erythema of the right lower extremity. Left lower extremity amputation. Normal capillary refill in the toes) Neurologic/Psychiatric: Alert, Oriented x3, No Motor/Sensory Deficits, Normal Mood/Affect Results Lab Laboratory Tests 09/01/19 11:43: Glucometer 141H 09/01/19 12:28: Prothrombin Time 41.0H, INR Comment 4.0H 09/01/19 15:50: Glucometer 151H 09/01/19 18:50: Hemoglobin 8.3L, Hematocrit 25L 09/01/19 20:23: Glucometer 124H 09/02/19 03:50: White Blood Count 10.5, Red Blood Count 2.68L, Hemoglobin 8.0L, Hematocrit 24L, Mean Corpuscular Volume 91, Mean Corpuscular Hemoglobin 30, Mean Corpuscular Hemoglobin Concent 33, Red Cell Distribution Width 15.9H, Platelet Count 327, Mean Platelet Volume 10.5H, Neutrophils (%) (Auto) 78H, Lymphocytes (%) (Auto) 12, Monocytes (%) (Auto) 8, Eosinophils (%) (Auto) 2, Basophils (%) (Auto) 0, Neutrophils # (Auto) 8.2H, Lymphocytes # (Auto) 1.3, Monocytes # (Auto) 0.9, Eosinophils # (Auto) 0.2, Basophils # (Auto) 0.0, Sodium Level 142, Potassium Level 3.1L, Chloride Level 109H, Carbon Dioxide Level 25, Anion Gap 8, Blood Urea Nitrogen 17, Creatinine 3.00H, Estimat Glomerular Filtration Rate 21, BUN/Creatinine Ratio 6, Glucose Level 94, Calcium Level 8.0L, Phosphorus Level 3.5, Magnesium Level 2.1 Microbiology 09/01/19 C. difficile GDH Antigen & Toxins - Final, Complete 08/31/19 Blood Culture - Preliminary, Resulted No growth 08/31/19 Urine Culture - Final, Complete NO GROWTH 08/31/19 MRSA Screen - Final, Complete MRSA not isolated Assessment/Plan Assessment/Plan Admission Dx SEE DC SUMMARY Admission Dx ACUTE RENAL FAILURE RIGHT GROIN INFECTION MRSA OPEN WOUND WEAKNESS PARTIAL AMPUTATION STATUS PAD HYPOTENSION RECENT HOSPITALIZATION WITH SEPSIS Clinical Quality Measures Admission Status Admission Dx ACUTE RENAL FAILURE RIGHT GROIN INFECTION MRSA OPEN WOUND WEAKNESS PARTIAL AMPUTATION STATUS PAD HYPOTENSION RECENT HOSPITALIZATION WITH SEPSIS DVT/VTE Risk/Contraindication: Risk Factor Score Per Nursin RFS Level Per Nursing on Admit: 4+=Very High OTTO MILLER MD Sep 02, 2019 09:23
[2019-09-02] MEDS ORDERED: HYDR-34 PO (09:58)
[2019-09-02] MEDS ORDERED: LACT1CAP7 PO (09:58)
[2019-09-02] MEDS ORDERED: MIRT30TA6 PO (09:58)
[2019-09-02] MEDS ORDERED: WARF-47 PO ×2 (09:58)
--- NOTE | 2019-09-02 10:02 | Discharge Inst-Skilled Nursing ---
Discharge Inst-Skilled NF Reconcile Patient Problems Problems Reviewed?: Yes Patient Instructions Patient Problems: sepsis right groin infection - open wound mrsa ofwound hypertension peripheral arterial disease left leg amputation chronic pain syndrome insomnia incontinence Consult/Follow Up/Orders Follow Up Appt.: 1 wk telemedicine [facility] Skilled NF Admit to: [facility] Certification (SNF) I certify that SNF services are required to be given on an inpatient basis because of the above named patient's need for fpc care on a continuing basis for the conditions(s) for which he/she was receiving inpatient hospital services prior to his/her transfer to the SNF. Long Term Facility Order: Nursing Services, Concrete Handler-Evaluate & Treat, Physical Therapy-Evaluate & Treat, Wound Care-Eval/Treat Oxygen Delivery Method: Nasal Cannula Discharge Diet: Regular Diet Resuscitation Status: Full Code New & Resume Previous Orders New & Resume Previous Orders pt/ot for strengthening - wound care for twice daily wet to dry dressing changes enriquez to be removed once the wound in his groin is healed low air loss mattress if one is available for patient due to his amputation and difficulty moving about in bed Otto Mcdonough Louisa Sep 02, 2019 09:59 Pneu Vac Indicated: Yes Medication List: Active Scripts Active Acidophilus-Pectin Capsule (Lactobacillus Acidophilus/Pect) 1 Each Capsule 2 Each PO TIDWM Mirtazapine 30 Mg Tablet 30 Mg PO HS PRN Warfarin Sodium 2 Mg Tablet 4 Mg PO , on hold until 09/05/2019 TAKES 2MG ON SUN,THU,THU,FRI&SAT TAKES 4 MG (2 2MG TABS) ON & HYDROcodone/APAP 7.5/325 TAB (Acetaminophen/Hydrocodone Bitart) 1 Ea Tablet 1 Ea PO Q6H PRN Warfarin Sodium 2 Mg Tablet 2 Mg PO SANTOS,MO,WED,FRI,SAT on hold until 09/05/2019 TAKES 2MG ON SUN,MON,WED,FRI&SAT TAKES 4 MG (2 2MG TABS) ON & Zyvox (Linezolid) 600 Mg Tablet 600 Mg PO BID Nystatin 15 Gm Cream..g. 0 Gm TP TID APPLY TO SKIN IN GROIN Reported Zyvox (Linezolid) 600 Mg Tablet 600 Mg PO BID 8 Days FILLED 08-29-2019 #16/8 DAY SUPPLY - - - - - - - - - - this medication MUST be continued - may use his home supply if available Metronidazole 500 Mg Tablet 500 Mg PO TID 7 Days FILLED 08-30-2019 #21/ DAY SUPPLY Rosuvastatin Calcium 20 Mg Tablet 20 Mg PO HS Furosemide 40 Mg Tablet 40 Mg PO DAILY Potassium Chloride 10 Meq Capsule.er 10 Meq PO BID Lactobacillus Tablet (L. Acidophilus/L.bulgaricus) 1 Each Tablet 1 Each PO BID Pepcid (Famotidine) 20 Mg Tablet 20 Mg PO DAILY Neurontin (Gabapentin) 300 Mg Capsule 300 Mg PO TID Magnesium Oxide 400 Mg Tablet 400 Mg PO DAILY Multivitamin 1 Each Tablet 1 Each PO DAILY Aspirin EC (Aspirin) 81 Mg Tablet.dr 81 Mg PO DAILY Colace (Docusate Sodium) 100 Mg Capsule 100 Mg PO DAILY Allopurinol 100 Mg Tablet 100 Mg PO DAILY Carvedilol 6.25 Mg Tablet 6.25 Mg PO BID Lisinopril 5 Mg Tablet 5 Mg PO DAILY Lab results: Laboratory Tests Test 09/01/19 11:43 09/01/19 12:28 09/01/19 15:50 09/01/19 18:50 Range/Units Glucometer 141 H 151 H 70-110 MG/DL Prothrombin Time 41.0 H 12.2-14.7 SEC INR Comment 4.0 H 0.8-1.4 Hemoglobin 8.3 L 13.3-17.7 G/DL Hematocrit 25 L 40-54 % Test 09/01/19 20:23 09/02/19 03:50 Range/Units Glucometer 124 H 70-110 MG/DL White Blood Count 10.5 4.3-11.0 10^3/uL Red Blood Count 2.68 L 4.35-5.85 10^6/uL Hemoglobin 8.0 L 13.3-17.7 G/DL Hematocrit 24 L 40-54 % Mean Corpuscular Volume 91 80-99 FL Mean Corpuscular Hemoglobin 30 25-34 PG Mean Corpuscular Hemoglobin Concent 33 32-36 G/DL Red Cell Distribution Width 15.9 H 10.0-14.5 % Platelet Count 327 130-400 10^3/uL Mean Platelet Volume 10.5 H 7.4-10.4 FL Neutrophils (%) (Auto) 78 H 42-75 % Lymphocytes (%) (Auto) 12 12-44 % Monocytes (%) (Auto) 8 0-12 % Eosinophils (%) (Auto) 2 0-10 % Basophils (%) (Auto) 0 0-10 % Neutrophils # (Auto) 8.2 H 1.8-7.8 X 10^3 Lymphocytes # (Auto) 1.3 1.0-4.0 X 10^3 Monocytes # (Auto) 0.9 0.0-1.0 X 10^3 Eosinophils # (Auto) 0.2 0.0-0.3 10^3/uL Basophils # (Auto) 0.0 0.0-0.1 10^3/uL Sodium Level 142 135-145 MMOL/L Potassium Level 3.1 L 3.6-5.0 MMOL/L Chloride Level 109 H 98-107 MMOL/L Carbon Dioxide Level 25 21-32 MMOL/L Anion Gap 8 5-14 MMOL/L Blood Urea Nitrogen 17 7-18 MG/DL Creatinine 3.00 H 0.60-1.30 MG/DL Estimat Glomerular Filtration Rate 21 BUN/Creatinine Ratio 6 Glucose Level 94 70-105 MG/DL Calcium Level 8.0 L 8.5-10.1 MG/DL Phosphorus Level 3.5 2.3-4.7 MG/DL Magnesium Level 2.1 1.6-2.4 MG/DL My orders: Orders - OTTO MILLER MD Transfer To Cardiac Step Down (09/01/19 11:55) Transfer - Bed/Room/Location (09/01/19 12:42) Cefepime Injection (Maxipime Injection) (09/01/19 16:57) Water (Sterile) For Injection (Sterile W (09/01/19 16:57) Hydrocodone/Apap 7.5/325 Tab (Lortab 7. (09/01/19 21:15) Cbc With Automated Diff (09/02/19 03:00) Basic Metabolic Panel (09/02/19 03:00) Magnesium (09/02/19 03:00) Phosphorus (09/02/19 03:00) Chest 1 View, Ap/Pa Only (09/02/19 03:00) Potassium Chloride (Tablet) (K Dur Table (09/02/19 09:00) Potassium Chloride (Tablet) (K Dur Table (09/02/19 11:00) Attending Discharge Inpt/Inobs (09/02/19 09:52) OTTO MILLER MD Sep 02, 2019 10:02
--- NOTE | 2019-09-02 11:10 | NUR ---
CM/SS: Visited with pt as to plan for discharge Plan: Pt to go to long-term facility - [facility] Summary: Pt reports he is ok to go to a skilled facility. Pt has talked with physician about going. Referral made to [facility]. This worker shares with pt that contact has been made with [facility] [employer] Sushma, and an attempt was made with Toya pierre, but she did not return the phone call. Pt reports that he has clothes and that his neighbor has a christina to his house and can bring more if needed. He also reports she is taking care of his dog. Pt encouraged to get stronger in order for him to return home. Call from [facility] - Trixie Application Architect - she is needing a copy of the COVID testing. Results are faxed as they are negative. [facility] reports waiting to hear from back from the insurance. Call to Door Repairer Bus with [facility]. She is updated on the plan for pt to go to skilled facility. Addendum: 09/02/19 at 1324 by CHASTITY RESTREPO [facility] will accept pt and can pick him up at 2:15pm today. Assigned JOSE Nichols notified of the acceptance and pick up and delivery driver time determined between 2:00pm to 2:30pm.
[2019-09-02 11:22] VITALS: BP 132/72
[2019-09-02] MEDS ORDERED: TROUGH ORDER-PHARMACY XX NR (13:00)
[2019-09-02 13:24] LABS: PROTHROMBIN TIME PATIENT 32.6 SEC (12.2-14.7)
--- NOTE | 2019-09-02 13:31 | Discharge Summary ---
Diagnosis/Chief Complaint Date of Admission Aug 31, 2019 at 13:34 Date of Discharge Discharge Date: Sep 02, 2019 Discharge Time: 1400 Admission Diagnosis Admission Diagnosis ACUTE RENAL FAILURE SEPSIS RIGHT GROIN INFECTION MRSA OPEN WOUND WEAKNESS PARTIAL AMPUTATION STATUS PAD HYPOTENSION RECENT HOSPITALIZATION WITH SEPSIS SUPRA-THERAPEUTIC INR Discharge Diagnosis ACUTE RENAL FAILURE SEPSIS RIGHT GROIN INFECTION MRSA OPEN WOUND WEAKNESS PARTIAL AMPUTATION STATUS PAD HYPOTENSION RECENT HOSPITALIZATION WITH SEPSIS SUPRA-THERAPEUTIC INR Reason Hospital Visit PT IS A 74 Y/O MALE WHO IS WELL KNOWN TO ME FROM CLINIC. HE PRESENTED TO THE EMERGENCY DEPARTMENT AFTER HIS CAREGIVER REPORTED THAT SHE WAS UNABLE TO CONTINUE TO CARE FOR HIM IN HIS HOME. SHE REPORTED THAT SHE DID NOT CLINICAL ALLERGIST HIS MEDICATIONS UPON DISCHARGE FROM THE HOSPITAL LAST WEEK. SHE ALSO REPORTS THAT SHE WAS NOT ABLE TO KEEP HIS RIGHT GROIN WOUND CLEAN. SHE CALLED THE AMBULANCE AFTER HE WAS "CHILLING, VOMITING AND HAVING DIARRHEA". HE WAS FOUND TO HAVE ACUTE RENAL FAILURE IN THE EMERGENCY DEPARTMENT Discharge Summary Discharge Physical Examination Allergies: Coded Allergies: morphine (Verified Allergy, Unknown, 09/01/16) Vitals & I&Os Vital Signs Date Time Temp Pulse Resp B/P (MAP) Pulse Ox O2 Delivery O2 Flow Rate FiO2 09/02/19 11:22 35.8 72 20 132/72 (92) 98 Room Air 09/02/19 08:00 2.00 08/31/19 10:05 93 General Appearance: Alert, Oriented X3, Cooperative, No Acute Distress HEENT: Atraumatic, PERRLA, Mucous Memb Moist/[place] Respiratory: Clear to Auscultation, Normal Air Movement Cardiovascular: Regular Rate Abdominal: Normal Bowel Sounds, Soft, No Tenderness Extremities: Other (HEALING ULCERATED OPENING RIGHT GROIN, LEFT LEG STATUS POST AMPUTATION) Neuro: Cranial Nerves 3-12 NL Psych/Mental Status: Mental Status NL, Mood NL Hospital Course Was the Problem List Reviewed?: Yes ACUTE RENAL FAILURE SEPSIS RIGHT GROIN INFECTION MRSA OPEN WOUND WEAKNESS PARTIAL AMPUTATION STATUS PAD HYPOTENSION RECENT HOSPITALIZATION WITH SEPSIS SUPRA-THERAPEUTIC INR ACUTE RENAL FAILURE - FLUIDS AT 150ML/HR - WILL CONTINUE WITH SUPPORTIVE CARE, MONITORING OF LABS. SEPSIS WITH RIGHT GROIN INFECTION MRSA AND OPEN WOUND - CONTINUE WITH ANTIBIOTICS - MONITOR WOUND, DRESSING CHANGES BID WEAKNESS WITH PARTIAL AMPUTATION STATUS - CONTINUE WITH SUPPORTIVE CARE, WILL NEED THERAPY ON DISCHARGE. PAD - HOLDING COUMADIN TODAY DUE TO HIS SUPRA-THERAPEUTIC STATUS HYPOTENSION - MONITOR PRESSURE CLOSELY - SHOULD IMPROVE WITH HYDRATION WELL RESOLUTION OF INFECTION SUPRA-THERAPEUTIC INR - HOLDING COUMADIN AT THIS TIME - MONITOR SERIALLY INR'S AND RESTART COUMADIN WHEN INR AT OR BELOW 2.0 DISCUSSED THE PATIENTS INABILITY TO GO HOME SAFELY - HE [facility] GO [facility] FOR [facility]/OT/WOUND CARE AND WE ARE GOING TO REPEAT LABS ON 09/05/2019 OF CBC, CMP, AND INR TO BE DONE ON 09/03, 09/04, 09/06 Pending Labs Laboratory Tests 09/02/19 11:21: Lab Scanned Report Transfusion Reaction Form 09/02/19 11:30: Glucometer 113 09/02/19 13:05: Prothrombin Time 32.6, INR Comment 3.0, Vancomycin Level Trough [Pending] Discharge Condition at discharge IMPROVED Instructions to patient/family Please see electronic discharge instructions given to patient. Discharge Medications Reviewed and agree with Discharge Medication list on patient's Discharge Instruction sheet Clinical Quality Measures DVT/VTE Risk/Contraindication: Risk Factor Score Per Nursin RFS Level Per Nursing on Admit: 4+=Very High OTTO MILLER MD Sep 02, 2019 13:31
[2019-09-02] MEDS ORDERED: VANCOMYCIN 1 GM/NS 250 ML IVPB IV SCH ×2 (14:00)
[2019-09-03] MEDS ORDERED: TROUGH ORDER-PHARMACY XX NR (13:00)
== END 2019-09-02 14:50 | DRG 872 ==
LOC: EDUNIT# 09:50 → ER 09:51 → ICU 13:34 → CSD 09-01 12:15
PROVIDERS: ADMIT Family Medicine; ATTEND Family Medicine
DX: A41.9 Sepsis, unspecified organism (principal); N17.9 Acute kidney failure, unspecified; E86.1 Hypovolemia; B95.62 Methicillin resistant Staphylococcus aureus infection as the cause of diseases classified elsewhere; J44.9 Chronic obstructive pulmonary disease, unspecified; I95.9 Hypotension, unspecified; I25.10 Atherosclerotic heart disease of native coronary artery without angina pectoris; I10 Essential (primary) hypertension; E78.00 Pure hypercholesterolemia, unspecified; E11.51 Type 2 diabetes mellitus with diabetic peripheral angiopathy without gangrene; E11.40 Type 2 diabetes mellitus with diabetic neuropathy, unspecified; D64.9 Anemia, unspecified; F91.8 Other conduct disorders; K57.90 Diverticulosis of intestine, part unspecified, without perforation or abscess without bleeding; Z95.2 Presence of prosthetic heart valve; Z95.1 Presence of aortocoronary bypass graft; Z95.5 Presence of coronary angioplasty implant and graft; Z89.612 Acquired absence of left leg above knee; Z79.01 Long term (current) use of anticoagulants; Z87.891 Personal history of nicotine dependence
CPT/HCPCS: 36415; 36569; 71045; 76937; 80048; 80053; 80202; 81000; 82274; 82962; 83605; 83735; 83880; 84100; 85007; 85014; 85018; 85025; 85027; 85610; 85730; 86141; 86850; 86900; 86901; 86920; 87040; 87081; 87088; 87324; 87449; 87635

== ENCOUNTER → 2019-11-01 | Outpatient (CLI) | payer MEDICARE, MEDICAID ==
[~2019-11-01] MED LIST changes: +ASPI-983 PO; +GABA300C PO; +L. A1TAB10 PO; +LACT1CAP7 PO; +MAGN400T7 PO; +METR-145 PO; +MIRT30TA6 PO; +MULT-1136 PO; +ROSU20TA32 PO
== END ==
LOC: WOUNDCARE 09:25
PROVIDERS: ATTEND Surgery
DX: G60.8 Other hereditary and idiopathic neuropathies (principal); I70.234 Atherosclerosis of native arteries of right leg with ulceration of heel and midfoot; L97.411 Non-pressure chronic ulcer of right heel and midfoot limited to breakdown of skin; N18.5 Chronic kidney disease, stage 5; Z20.828 Contact with and (suspected) exposure to other viral communicable diseases
CPT/HCPCS: 97597; A6196; G0463

== ENCOUNTER → 2019-11-10 | Outpatient (CLI) | payer MEDICAID, MEDICARE ==
[~2019-11-10] MED LIST changes: +ASPI-1238 PO; -ASPI-983 PO
== END ==
LOC: WOUNDCARE 08:17
PROVIDERS: ATTEND Surgery
DX: I70.234 Atherosclerosis of native arteries of right leg with ulceration of heel and midfoot (principal); L97.411 Non-pressure chronic ulcer of right heel and midfoot limited to breakdown of skin; N18.5 Chronic kidney disease, stage 5; G60.8 Other hereditary and idiopathic neuropathies
CPT/HCPCS: 99212

== ENCOUNTER 2019-11-15 11:41 | Emergency (ER) | payer MEDICARE, MEDICAID ==
[~2019-11-15] VITALS: Ht 160 cm; Wt 81.6 kg
--- NOTE | 2019-11-15 11:59 | ED General ---
General Stated Complaint: VOMITING;WEAKNESS Source of Information: Patient, EMS Exam Limitations: No Limitations History of Present Illness Date Seen by Provider: Nov 15, 2019 Time Seen by Provider: 11:56 Initial Comments That we can document where it's who started to ER by EMS from home with reports of low blood pressure, weakness, nausea vomiting diarrhea. Denies abdominal pain. He felt fine yesterday the symptoms all began today. No fever no cough no shortness of breath. He vomited once while getting into the bathtub but hasn't vomited since and is no longer nauseous. He has no abdominal pain. No fevers. EMS found his blood pressure to be 70s over 40s. 1 L of IV fluids was started, he had received about 200 mL in route to the hospital, on arrival blood pressure 95/45. Timing/Duration: 1-2 Days Severity: Moderate Associated Systoms: Denies Symptoms Allergies and Home Medications Allergies Coded Allergies: morphine (Verified Allergy, Unknown, 09/01/16) Home Medications Allopurinol 100 Mg Tablet, 100 MG PO DAILY, (Reported) Aspirin 81 Mg Tablet.dr, 81 MG PO DAILY, (Reported) Carvedilol 6.25 Mg Tablet, 6.25 MG PO BID, (Reported) Docusate Sodium 100 Mg Capsule, 100 MG PO DAILY, (Reported) Famotidine 20 Mg Tablet, 20 MG PO DAILY, (Reported) Gabapentin 300 Mg Capsule, 300 MG PO TID, (Reported) Hydrocodone Bit/Acetaminophen 1 Ea Tablet, 1 EA PO Q6H PRN for PAIN-MODERATE (5- 7) Prescribed by: OTTO ALVAREZ on 09/02/19957 Lactobacillus Acidophilus/Pect 1 Each Capsule, 2 EACH PO TIDWM Prescribed by: OTTO ALVAREZ on 09/02/19957 Linezolid 600 Mg Tablet, 600 MG PO BID, (Reported) FILLED 08-29-2019 #16/8 DAY SUPPLY Lisinopril 5 Mg Tablet, 5 MG PO DAILY, (Reported) Magnesium Oxide 400 Mg Tablet, 400 MG PO DAILY, (Reported) Metronidazole 500 Mg Tablet, 500 MG PO TID, (Reported) FILLED 08-30-2019 #21/7 DAY SUPPLY Mirtazapine 30 Mg Tablet, 30 MG PO HS PRN for SLEEP Prescribed by: OTTO ALVAREZ on 6/26/20 0958 Multivitamin 1 Each Tablet, 1 EACH PO DAILY, (Reported) Nystatin 15 Gm Cream..g., 0 GM TP TID APPLY TO SKIN IN GROIN Prescribed by: OTTO ALVAREZ on 08/24/19 0851 Potassium Chloride 10 Meq Capsule.er, 10 MEQ PO BID, (Reported) Rosuvastatin Calcium 20 Mg Tablet, 20 MG PO HS, (Reported) Warfarin Sodium 2 Mg Tablet, 2 MG PO SANTOS,,THU,THU,SAT on hold until 09/05/2019 TAKES 2MG ON SUN,THU,THU,FRI&SAT TAKES 4 MG (2 2MG TABS) ON TU &TH Prescribed by: OTTO ALVAREZ on 09/02/19 09 Warfarin Sodium 2 Mg Tablet, 4 MG PO , on hold until 09/05/2019 TAKES 2MG ON SUN,THU,THU,THU&SAT TAKES 4 MG (2 2MG TABS) ON TU &TH Prescribed by: OTTO ALVAREZ on 09/02/19957 Patient Home Medication List Home Medication List Reviewed: Yes Review of Systems Review of Systems Constitutional: see HPI; No chills, No fever; weakness EENTM: see HPI Respiratory: see HPI; No cough, No short of breath Cardiovascular: no symptoms reported Genitourinary: no symptoms reported Musculoskeletal: no symptoms reported Skin: no symptoms reported Psychiatric/Neurological: No Symptoms Reported Hematologic/Lymphatic: No Symptoms Reported Immunological/Allergic: no symptoms reported Past Zewbidi-Sdpfix-Yxkzmg Hx Patient Social History Alcohol Beverage of Choice: Whiskey Drug of Choice: Wild Thor Type Used: Cigarettes Former Smoker, Quit: Mar 09, 2015 2nd Hand Smoke Exposure: No Recent Hopitalizations: Yes Immunizations Up To Date Tetanus Booster (TDap): Less than 5yrs PED Vaccines UTD: Yes Seasonal Allergies Seasonal Allergies: Yes Past Medical History Surgeries: Yes (CABG,VALVE REPLACED,PLATE IN LEG,VASECTOMY,AKA) Amputation, Angioplasty, CABG, Coronary Stent, Open Heart Surgery, Valve Replace ment, Vascular Surgery Respiratory: Yes COPD Currently Using CPAP: No Currently Using BIPAP: No Cardiac: Yes Chronic Edema/Swelling, Coronary Artery Disease, High Cholesterol, Hypertension, Peripheral Vascular, Valvular Heart Disease Neurological: Yes Neuropathy Reproductive Disorders: No Sexually Transmitted Disease: No HIV/AIDS: No Genitourinary: No Gastrointestinal: Yes Diverticulosis 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 [facility] anticoag therapy.) Adverse Reaction/Blood Tranf: No Family Medical History Heart Disease, Hypertension, Psychiatric Problems Physical Exam Vital Signs Vital Signs - First Documented 11/15/19 11:45 Temp 37.2 Pulse 77 Resp 18 B/P (MAP) 95/45 (62) Pulse Ox 97 O2 Delivery Room Air Capillary Refill : Height, Weight, BMI Height: 5'3.00" Weight: 150lbs. 6.0oz. [id number]; 29.00 BMI Method:Stated General Appearance: No Apparent Distress, WD/WN, Chronically ill, Other (alert and oriented mentating well no distress heart rate in the 80s. Very pleasant gentleman.) Eyes: Bilateral Eye Normal Inspection, Bilateral Eye PERRL, Bilateral Eye EOMI Respiratory: Chest Non Tender, Lungs Clear Cardiovascular: Normal Peripheral Pulses, Other (right pedal edema 1+ chronic and unchanged.) Extremity: Normal Capillary Refill, Normal Inspection, Other (left [id number] amputation) Neurologic/Psychiatric: Alert, Oriented x3 Skin: Normal Color, Warm/Dry Focused Exam Lactate Level 11/15/19 12:12: Lactic Acid Level 1.19 Lactic Acid Level Laboratory Tests Test 11/15/19 12:12 Lactic Acid Level 1.19 MMOL/L (0.50-2.00) Progress/Results/Core Measures Suspected Sepsis SIRS Temperature: Pulse: Respiratory Rate: Laboratory Tests 11/15/19 12:12: White Blood Count 13.0H Blood Pressure / Mean: 11/15/19 12:12: Lactic Acid Level 1.19 Laboratory Tests 11/15/19 12:12: Creatinine 1.91H, Platelet Count 217, Total Bilirubin 0.3 11/15/19 13:30: INR Comment 2.6H Results/Orders Lab Results Laboratory Tests Test 11/15/19 12:12 11/15/19 13:30 11/15/19 14:40 Range/Units White Blood Count 13.0 H 4.3-11.0 10^3/uL Red Blood Count 3.43 L 4.35-5.85 10^6/uL Hemoglobin 10.3 L 13.3-17.7 G/DL Hematocrit 32 L 40-54 % Mean Corpuscular Volume 92 80-99 FL Mean Corpuscular Hemoglobin 30 25-34 PG Mean Corpuscular Hemoglobin Concent 33 32-36 G/DL Red Cell Distribution Width 16.1 H 10.0-14.5 % Platelet Count 217 130-400 10^3/uL Mean Platelet Volume 10.6 H 7.4-10.4 FL Neutrophils (%) (Auto) 75 42-75 % Lymphocytes (%) (Auto) 14 12-44 % Monocytes (%) (Auto) 10 0-12 % Eosinophils (%) (Auto) 2 0-10 % Basophils (%) (Auto) 0 0-10 % Neutrophils # (Auto) 9.7 H 1.8-7.8 X 10^3 Lymphocytes # (Auto) 1.8 1.0-4.0 X 10^3 Monocytes # (Auto) 1.3 H 0.0-1.0 X 10^3 Eosinophils # (Auto) 0.2 0.0-0.3 10^3/uL Basophils # (Auto) 0.0 0.0-0.1 10^3/uL Sodium Level 140 135-145 MMOL/L Potassium Level 4.5 3.6-5.0 MMOL/L Chloride Level 104 98-107 MMOL/L Carbon Dioxide Level 28 21-32 MMOL/L Anion Gap 8 5-14 MMOL/L Blood Urea Nitrogen 21 H 7-18 MG/DL Creatinine 1.91 H 0.60-1.30 MG/DL Estimat Glomerular Filtration Rate 35 BUN/Creatinine Ratio 11 Glucose Level 93 70-105 MG/DL Lactic Acid Level 1.19 0.50-2.00 MMOL/L Calcium Level 8.7 8.5-10.1 MG/DL Corrected Calcium 9.2 8.5-10.1 MG/DL Total Bilirubin 0.3 0.1-1.0 MG/DL Aspartate Amino Transf (AST/SGOT) 21 5-34 U/L Alanine Aminotransferase (ALT/SGPT) 13 0-55 U/L Alkaline Phosphatase 76 40-136 U/L Total Protein 6.7 6.4-8.2 GM/DL Albumin 3.4 3.2-4.5 GM/DL Prothrombin Time 28.0 H 12.2-14.7 SEC INR Comment 2.6 H 0.8-1.4 Urine Color YELLOW Urine Clarity CLEAR Urine pH 7.0 5-9 Urine Specific [place] 1.010 L 1.016-1.022 Urine Protein NEGATIVE NEGATIVE Urine Glucose (UA) NEGATIVE NEGATIVE Urine Ketones NEGATIVE NEGATIVE Urine Nitrite NEGATIVE NEGATIVE Urine Bilirubin NEGATIVE NEGATIVE Urine Urobilinogen 0.2 < = 1.0 MG/DL Urine Leukocyte Esterase NEGATIVE NEGATIVE Urine RBC (Auto) NEGATIVE NEGATIVE Urine RBC NONE /HPF Urine WBC 0-2 /HPF Urine Squamous Epithelial Cells 5-10 /HPF Urine Crystals NONE /LPF Urine Bacteria NEGATIVE /HPF Urine Casts NONE /LPF Urine Mucus NEGATIVE /LPF Urine Culture Indicated NO My Orders Orders - NAA CALDWELL APRN Cbc With Automated Diff (11/15/19 11:48) Comprehensive Metabolic Panel (11/15/19 11:48) Lactic Acid Analyzer (11/15/19 11:48) Blood Culture (11/15/19 11:48) Chest 1 View, Ap/Pa Only (11/15/19 11:48) Ns Iv 1000 Ml (Sodium Chloride 0.9%) (11/15/19 12:00) Ed Iv/Invasive Line Start (11/15/19 11:57) Ua Culture If Indicated (11/15/19 12:56) Protime With Inr (11/15/19 12:56) Vital Signs/I&O 11/15/19 11:45 Temp 37.2 Pulse 77 Resp 18 B/P (MAP) 95/45 (62) Pulse Ox 97 O2 Delivery Room Air Capillary Refill : Departure Communication (Admissions) [id number] with Dr. Alvarez, we'll reduce his Lasix dose (he states that he takes 40-80 mg per day depending on his swelling) and his lisinopril will be stopped. He can go home. He still states that he feels well and he would prefer to go home. His blood pressure still a bit low at about 100 systolic but he is afebrile without shortness of breath or pain. Impression Primary Impression: Hypotension Disposition: 01 HOME, SELF-CARE Condition: Stable Departure-Patient Inst. Decision time for Depature: 15:45 Referrals: OTTO ALVAREZ MD (PCP/Family) Primary Care Physician Patient Instructions: Low Blood Pressure Add. Discharge Instructions: 1. Stop the lisinopril. Cut your Lasix dose in half. You have an appointment wit h Dr. Alvarez's office you will see WILL this Thursday. Return to ER for any worsening symptoms or other concerns. Copy Copies To 1: OTTO ALVAREZ MD, PETER J APRN Nov 15, 2019 11:59
[2019-11-15] MEDS ORDERED: NS IV 1000 ML 1,000 ML IV SCH (12:00)
[2019-11-15 12:31] LABS: BASOPHILS % (AUTO) 0 % (0-10); EOSINOPHILS # (AUTO) 0.2 10^3/uL (0.0-0.3); EOSINOPHILS % (AUTO) 2 % (0-10); HEMATOCRIT 32 % (40-54); HEMOGLOBIN 10.3 G/DL (13.3-17.7); LYMPHOCYTES # (AUTO) 1.8 X 10^3 (1.0-4.0); LYMPHOCYTES % (AUTO) 14 % (12-44); MEAN CORPUSCULAR HEMOGLOBIN 30 PG (25-34); MEAN CORPUSCULAR HGB CONC 33 G/DL (32-36); MEAN CORPUSCULAR VOLUME 92 FL (80-99); MEAN PLATELET VOLUME 10.6 FL (7.4-10.4); MONOCYTES # (AUTO) 1.3 X 10^3 (0.0-1.0); MONOCYTES % (AUTO) 10 % (0-12); NEUTROPHILS # (AUTO) 9.7 X 10^3 (1.8-7.8); NEUTROPHILS % (AUTO) 75 % (42-75); PLATELET COUNT 217 10^3/uL (130-400)
--- NOTE | 2019-11-15 12:33 | NUR ---
NS bolus initiated per cc ems, complete (1000ml intake).
--- NOTE | 2019-11-15 12:39 | Diagnostic Imaging Report ---
INDICATION: Hypertension with nausea and vomiting and diarrhea. TIME OF EXAM: 12:31 p.m. COMPARISON: Correlation is made with prior chest from 09/02/2019. FINDINGS: Changes of median sternotomy are noted. The heart is enlarged but stable. The lungs are clear. No infiltrates are detected. No effusion or pneumothorax is seen. The pulmonary vascularity is normal. IMPRESSION: No acute cardiopulmonary process is detected. Dictated by: Dictated on workstation # [id number]
[2019-11-15 12:50] LABS: ALBUMIN 3.4 GM/DL (3.2-4.5); BILIRUBIN,TOTAL 0.3 MG/DL (0.1-1.0); CALCIUM 8.7 MG/DL (8.5-10.1); CREATININE SERUM 1.91 MG/DL (0.60-1.30); POTASSIUM 4.5 MMOL/L (3.6-5.0); TOTAL PROTEIN 6.7 GM/DL (6.4-8.2)
[2019-11-15 13:59] LABS: INR 2.6 (0.8-1.4)
[2019-11-15 14:48] LABS: BILIRUBIN,URINE NEGATIVE (NEGATIVE); CLARITY,URINE CLEAR; COLOR,URINE YELLOW; GLUCOSE, URINE (UA) NEGATIVE (NEGATIVE); KETONES,URINE NEGATIVE (NEGATIVE); LEUKOCYTE ESTERASE ,URINE NEGATIVE (NEGATIVE); NITRITE,URINE NEGATIVE (NEGATIVE); PROTEIN,URINE NEGATIVE (NEGATIVE)
[2019-11-15 14:55] LABS: BACTERIA,URINE NEGATIVE /HPF; WBC,URINE 0-2 /HPF
[2019-11-15 17:13] VITALS: BP 112/67
== END 2019-11-15 16:13 | disposition home or self-care (01) ==
LOC: EDUNIT# 11:41 → ER 11:43
DX: I95.9 Hypotension, unspecified (principal); I10 Essential (primary) hypertension; E78.00 Pure hypercholesterolemia, unspecified; Z87.891 Personal history of nicotine dependence; Z82.49 Family history of ischemic heart disease and other diseases of the circulatory system; Z88.5 Allergy status to narcotic agent; Z95.5 Presence of coronary angioplasty implant and graft; Z95.1 Presence of aortocoronary bypass graft; Z79.82 Long term (current) use of aspirin; Z79.01 Long term (current) use of anticoagulants; Z89.612 Acquired absence of left leg above knee
CPT/HCPCS: 36415; 71045; 80053; 81000; 83605; 85025; 85610; 87040

== ENCOUNTER → 2021-01-02 | Outpatient (CLI) | payer MEDICARE, MEDICAID ==
[~2021-01-02] MED LIST changes: -CIPR500T4 PO; +CIPR500T5 PO; -LISI-556 PO; +LISI-729 PO; +MIRT-69 PO; -MIRT30TA6 PO; -PANT40TA3 PO; +PANT40TA52 PO
== END ==
LOC: CARD 12:30
PROVIDERS: ATTEND Physician Assistant
DX: I11.9 Hypertensive heart disease without heart failure (principal); I25.10 Atherosclerotic heart disease of native coronary artery without angina pectoris; I34.0 Nonrheumatic mitral (valve) insufficiency; Z95.2 Presence of prosthetic heart valve
CPT/HCPCS: 93306

== ENCOUNTER → 2022-02-11 | Outpatient (CLI) | payer MEDICARE, MEDICAID ==
[~2022-02-11] MED LIST changes: -LISI-729 PO; +LISI5TAB20 PO; -NYST15CR TP; +NYST15CR35 TP
== END ==
LOC: CARD 08:33
PROVIDERS: ATTEND Physician Assistant
DX: I11.9 Hypertensive heart disease without heart failure (principal); I34.0 Nonrheumatic mitral (valve) insufficiency; Z95.2 Presence of prosthetic heart valve
CPT/HCPCS: 93306

== ENCOUNTER → 2022-04-21 | Outpatient (CLI) | payer MEDICARE, MEDICAID ==
[~2022-04-21] MED LIST changes: +POTA10CA44 PO; +REGADENOSON 0.4 MG/5 ML SYR (LEXISCAN) IV ONE
[2022-04-21] MEDS: CATHETER FLUSH 10 ML SYR IVP PRN ×2 (08:06→09:30)
[2022-04-21 09:28] VITALS: BP 118/47
--- NOTE | 2022-04-21 11:53 | Cardiology Stress Test Report ---
Stress Test Report Date of Procedure/Referring: Date of Procedure: Apr 21, 2022 PCP Otto Alvarez MD Admitting Physician Admitting Physician: Attending Physician: Kasia Manning Indications: CP Baseline Heart Rate: 62 Baseline Blood Pressure: Blood Pressure Systolic: 118 Blood Pressure Diastolic: 47 Baseline Vitals Vital Signs Date Time Temp Pulse Resp B/P (MAP) Pulse Ox O2 Delivery O2 Flow Rate FiO2 04/21/22 09:28 63 20 118/47 (70) 94 Room Air Baseline EKG: Baseline EKG: LBBB Summary After explaining the procedure to the patient, he signed a consent and then brought to the stress nuclear laboratory. Patient received 0.4 mg Lexiscan for stress test, ECG, heart rate and blood pressure were monitored continuously. Resting and stress dose of radio tracer were injected, imaging was acquired and reviewed in short axis, horizontal long axis and vertical long axis views. TID: 1.03 SSS: 9 SDS: 1 EF: 34 Patient tolerated Lexiscan well Baseline left bundle branch block persisted during test Fixed defect involving the inferior wall and inferolateral wall Prominent left ventricle with diffuse left ventricular hypokinesia, ejection fraction 34% Copy Copies To 1: OTTO ALVAREZ MD, BASHAR J MD Apr 21, 2022 11:53
== END ==
LOC: CARD 07:41
PROVIDERS: ATTEND Physician Assistant
DX: I25.10 Atherosclerotic heart disease of native coronary artery without angina pectoris (principal)
CPT/HCPCS: 78452; 93017; A9502

== ENCOUNTER 2023-01-13 09:37 | Emergency (ER) | payer MEDICARE, MEDICAID ==
[~2023-01-13] VITALS: Ht 160 cm; Wt 81.6 kg
[~2023-01-13 09:37] MED LIST changes: -POTA10CA44 PO; +POTA10CA84 PO; -REGADENOSON 0.4 MG/5 ML SYR (LEXISCAN) IV ONE; -ROSU20TA32 PO; +ROSU20TA73 PO
--- NOTE | 2023-01-13 09:54 | ED General ---
General Chief Complaint: Lower Extremity Stated Complaint: RT FOOT PAIN Nursing Triage Note: PT ARRIVES TO ER VIA EMS FROM HOME. PT IS A L ABOVE THE KNEE AMPUTEE. PT C/O WORSENING R FOOT PAIN, REPORTS HAS A KNOWN DVT IN R LEG, REPORTS WORSENING PAIN TO R FOOT OVER THE PAST WEEK, EMS REPORTS UNABLE TO PALPATE PULSE IN L FOOT. FOOT IS DUSKY IN COLOR, GOOD CAP REFILL. PT IS ON WARFARIN CURRENTLY. Source of Information: Patient, EMS Exam Limitations: Other (Pain is distracting patient) History of Present Illness Date Seen by Provider: Jan 13, 2023 Time Seen by Provider: 09:41 Allergies and Home Medications Allergies Coded Allergies: morphine (Verified Allergy, Unknown, 09/01/16) Patient Home Medication List Allopurinol (Allopurinol) 100 Mg Tablet, 100 MG PO DAILY, (Reported) Entered as Reported by: NITA SHIN on 09/01/16 1156 Aspirin (Aspirin EC) 81 Mg Tablet.dr, 81 MG PO DAILY, (Reported) Entered as Reported by: DOMINICK GUZMAN on 09/01/19 1608 Carvedilol (Carvedilol) 6.25 Mg Tablet, 6.25 MG PO BID, (Reported) Entered as Reported by: CHETAN MULLINS on 12/26/15 1240 Docusate Sodium (Colace) 100 Mg Capsule, 100 MG PO DAILY, (Reported) Entered as Reported by: NITA SHIN on 09/01/16 1156 Famotidine (Pepcid) 20 Mg Tablet, 20 MG PO DAILY, (Reported) Entered as Reported by: DOMINICK GUZMAN on 09/01/19 1608 Gabapentin (Neurontin) 300 Mg Capsule, 300 MG PO TID, (Reported) Entered as Reported by: DOMINICK GUZMAN on 09/01/19 1608 Hydrocodone Bit/Acetaminophen (HYDROcodone/APAP 7.5/325 TAB) 1 Ea Tablet, 1 EA PO Q6H PRN for PAIN-MODERATE (5-7) Prescribed by: OTTO ALVAREZ on 09/02/19 0958 Lactobacillus Acidophilus/Pect (Acidophilus-Pectin Capsule) 1 Each Capsule, 2 EACH PO TIDWM Prescribed by: OTTO ALVAREZ on 09/02/19 0958 Linezolid (Zyvox) 600 Mg Tablet, 600 MG PO BID, (Reported) Entered as Reported by: DOMINICK GUZMAN on 09/01/19 1608 Lisinopril (Lisinopril) 5 Mg Tablet, 5 MG PO DAILY, (Reported) Entered as Reported by: CHETAN MULLINS on 12/26/15 1240 Magnesium Oxide (Magnesium Oxide) 400 Mg Tablet, 400 MG PO DAILY, (Reported) Entered as Reported by: DOMINICK GUZMAN on 09/01/19 1608 Metronidazole (Metronidazole) 500 Mg Tablet, 500 MG PO TID, (Reported) Entered as Reported by: DOMINICK GUZMAN on 09/01/19 160 Mirtazapine (Mirtazapine) 30 Mg Tablet, 30 MG PO HS PRN for SLEEP Prescribed by: OTTO ALVAREZ on 09/02/19 09 Multivitamin (Multivitamin) 1 Each Tablet, 1 EACH PO DAILY, (Reported) Entered as Reported by: DOMINICK GUZMAN on 09/01/19 160 Nystatin (Nystatin) 15 Gm Cream..g., 0 GM TP TID Prescribed by: OTTO ALVARZE on 08/24/19 0851 Potassium Chloride (Potassium Chloride) 10 Meq Capsule.er, 10 MEQ PO BID, (Reported) Entered as Reported by: DOMINICK GUZMAN on 09/01/19 160 Rosuvastatin Calcium (Rosuvastatin Calcium) 20 Mg Tablet, 20 MG PO HS, (Reported) Entered as Reported by: DOMINICK GUZMAN on 09/01/19 160 Warfarin Sodium (Warfarin Sodium) 2 Mg Tablet, 2 MG PO SANTOS,MO,WED,THU,SAT Prescribed by: OTTO ALVAREZ on 09/02/19 09 Warfarin Sodium (Warfarin Sodium) 2 Mg Tablet, 4 MG PO , Prescribed by: OTTO ALVAREZ on 09/02/19 0958 Past Xexlash-Kcamul-Qzwsrz Hx Patient Social History Tobacco Use?: Yes Tobacco type used: Cigarettes Substance use?: No Alcohol Use?: No Pt feels they are or have been: No Immunizations Up To Date Tetanus Booster (TDap): Less than 5yrs PED Vaccines UTD: Yes First/Initial COVID19 Vaccinat: DENIES Seasonal Allergies Seasonal Allergies: Yes Past Medical History Surgeries: Yes (CABG,VALVE REPLACED,PLATE IN LEG,VASECTOMY,AKA) Amputation, Angioplasty, CABG, Coronary Stent, Open Heart Surgery, Valve Replacement, Vascular Surgery Respiratory: Yes COPD Currently Using CPAP: No Currently Using BIPAP: No Cardiac: Yes Chronic Edema/Swelling, Coronary Artery Disease, High Cholesterol, Hypertension, Peripheral Vascular, Valvular Heart Disease Neurological: Yes Neuropathy Reproductive Disorders: No Sexually Transmitted Disease: No HIV/AIDS: No Genitourinary: No Gastrointestinal: Yes Diverticulosis 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 6.0oz. [id number]; 31.00 BMI Method:Stated Focused Exam Lactate Level 01/13/23 09:59: Lactic Acid Level 2.06*H 01/13/23 12:23: Lactic Acid Level 0.93 Lactic Acid Level Laboratory Tests Test 01/13/23 09:59 01/13/23 12:23 Lactic Acid Level 2.06 MMOL/L (0.50-2.00) *H 0.93 MMOL/L (0.50-2.00) Progress/Results/Core Measures Suspected Sepsis SIRS Temperature: Pulse: 92 Respiratory Rate: 24 Laboratory Tests 01/13/23 09:47: White Blood Count 11.3H Blood Pressure 97 /84 Mean: 88 01/13/23 09:59: Lactic Acid Level 2.06*H 01/13/23 12:23: Lactic Acid Level 0.93 Laboratory Tests 01/13/23 09:47: Platelet Count 327 01/13/23 09:59: Creatinine 1.51H, Total Bilirubin 0.4 01/13/23 10:00: INR Comment 1.5H Results/Orders Lab Results Laboratory Tests Test 01/13/23 09:47 01/13/23 09:59 01/13/23 10:00 01/13/23 12:23 Range/Units White Blood Count 11.3 H 4.3-11.0 10^3/uL Red Blood Count 3.83 L 4.30-5.52 10^6/uL Hemoglobin 11.7 L 13.3-17.7 g/dL Hematocrit 35 L 40-54 % Mean Corpuscular Volume 91 80-99 fL Mean Corpuscular Hemoglobin 31 25-34 pg Mean Corpuscular Hemoglobin Concent 33 32-36 g/dL Red Cell Distribution Width 14.4 10.0-14.5 % Platelet Count 327 130-400 10^3/uL Mean Platelet Volume 10.3 9.0-12.2 fL Immature Granulocyte % (Auto) 0 % Neutrophils (%) (Auto) 61 42-75 % Lymphocytes (%) (Auto) 28 12-44 % Monocytes (%) (Auto) 9 0-12 % Eosinophils (%) (Auto) 2 0-10 % Basophils (%) (Auto) 0 0-10 % Neutrophils # (Auto) 6.9 1.8-7.8 10^3/uL Lymphocytes # (Auto) 3.1 1.0-4.0 10^3/uL Monocytes # (Auto) 1.0 0.0-1.0 10^3/uL Eosinophils # (Auto) 0.3 0.0-0.3 10^3/uL Basophils # (Auto) 0.0 0.0-0.1 10^3/uL Immature Granulocyte # (Auto) 0.0 0.0-0.1 10^3/uL Sodium Level 140 135-145 MMOL/L Potassium Level 4.0 3.6-5.0 MMOL/L Chloride Level 105 98-107 MMOL/L Carbon Dioxide Level 24 21-32 MMOL/L Anion Gap 11 5-14 MMOL/L Blood Urea Nitrogen 16 7-18 MG/DL Creatinine 1.51 H 0.60-1.30 MG/DL Estimat Glomerular Filtration Rate 48 BUN/Creatinine Ratio 11 Glucose Level 110 H 70-105 MG/DL Lactic Acid Level 2.06 *H 0.93 0.50-2.00 MMOL/L Calcium Level 9.2 8.5-10.1 MG/DL Corrected Calcium 9.6 8.5-10.1 MG/DL Total Bilirubin 0.4 0.1-1.0 MG/DL Aspartate Amino Transf (AST/SGOT) 27 5-34 U/L Alanine Aminotransferase (ALT/SGPT) 13 0-55 U/L Alkaline Phosphatase 87 40-136 U/L C-Reactive Protein High Sensitivity 4.31 H 0.00-0.50 MG/DL Total Protein 8.2 6.4-8.2 GM/DL Albumin 3.5 3.2-4.5 GM/DL Prothrombin Time 19.0 H 12.2-14.7 SEC INR Comment 1.5 H 0.8-1.4 Activated Partial Thromboplast Time 35 24-35 SEC My Orders Orders - NAVIN STAPLETON MD Fentanyl Injection (Fentanyl Injection (01/13/23 10:00) Hs C Reactive Protein (01/13/23 09:47) Cbc And Automated Diff (01/13/23 09:47) Comprehensive Metabolic Panel (01/13/23 09:47) Blood Culture (01/13/23 09:47) Sputum Culture (01/13/23 09:47) Urinalysis (01/13/23 09:47) Urine Culture (01/13/23 09:47) Protime With Inr (01/13/23 09:47) Partial Thromboplastin Time (01/13/23 09:47) Ed Iv/Invasive Line Start (01/13/23 09:47) Vital Signs Adult Sepsis Patie Q15M (01/13/23 09:47) O2 (01/13/23 09:47) Remove Rings In Anticipation O (01/13/23 09:47) Lactic Acid Analyzer (01/13/23 09:47) Us Right Low Ext [id number] (01/13/23 09:47) Us Venous Lower Ext Rt (01/13/23 09:47) Foot, Right, 3 View (01/13/23 09:49) Ondansetron Injection (Ondansetron Inj (01/13/23 14:00) Sulfamethoxazole/Tmp Ds Tablet (Sulfamet (01/13/23 14:00) Medications Given in ED Current Medications Medications Dose Ordered Sig/Celestine Route Start Time Stop Time Status Last Admin Dose Admin Fentanyl Citrate 75 mcg ONCE ONCE IVP 01/13/23 10:00 01/13/23 10:01 DC 01/13/23 09:57 75 MCG Vital Signs/I&O 01/13/23 01/13/23 01/13/23 09:37 10:18 11:35 Temp 36.7 Pulse 92 71 72 Resp 24 16 B/P (MAP) 97/84 (88) 108/71 (83) 100/72 (81) Pulse Ox 94 90 95 O2 Delivery Room Air Room Air Capillary Refill : Blood Pressure Mean: 88 Departure Impression Primary Impression: Peripheral vascular disease Additional Impressions: Diabetic foot ulcer Qualified Codes: E13.621 - Other specified diabetes mellitus with foot ulcer; L97.519 - Non-pressure chronic ulcer of other part of right foot with unspecified severity Cellulitis of right foot Right foot pain Subtherapeutic international normalized ratio (INR) Disposition: 01 HOME, SELF-CARE Condition: Improved Departure-Patient Inst. Decision time for Depature: 13:53 Referrals: OTTO ALVAREZ MD (PCP/Family) Primary Care Physician Patient Instructions: Cellulitis (Skin Infection), Adult ED, Diabetic Foot Ulcer (DC), Peripheral Vascular (Arterial) Disease (DC) Add. Discharge Instructions: You have retained blood flow to your feet. Your pain may have been in part due to low blood pressure and low vascular volume due to poor hydration status. This may have reduced blood flow to your foot causing pain. For this reason, you should drink plenty of clear liquids to stay well-hydrated and to stop losartan until further notice. Take Bactrim as prescribed for possible cellulitis (infection of the foot skin). Please follow-up with Dr. Alvarez as soon as possible. Call her office for an appointment. Coordinate wound care with her office as appropriate. You may use Percocet as prescribed for more severe pain instead of hydrocodone if needed. Your warfarin is subtherapeutic today at 1.5. This needs to be monitored closely, especially while you are on antibiotics. Please coordinate with Dr. Solis's office for INR monitoring and warfarin dosing. Return to care if you have worsening symptoms despite following these instructions. All discharge instructions reviewed with patient and/or family. Voiced understanding. Scripts Oxycodone HCl/Acetaminophen (Percocet 10-325 mg Tablet) 1 Each Tablet 1 TAB PO Q6H PRN for PAIN-SEVERE (8-10) MDD 3 TABS, #10 TAB Take in lieu of hydrocodone for more severe pain. Prov: NAVIN STAPLETON MD 01/13/23 Sulfamethoxazole/Trimethoprim (Bactrim Ds Tablet) 1 Each Tablet 1 EACH PO BID, #20 TAB Prov: NAVIN STAPLETON MD 01/13/23 Ondansetron (Ondansetron Odt) 4 Mg Tab.rapdis 4 MG SL Q4H PRN for NAUSEA/VOMITING, #20 TAB Prov: NAVIN STAPLETON MD 01/13/23 NAVIN STAPLETON MD Jan 13, 2023 09:54
[2023-01-13 09:56] LABS: BASOPHILS % (AUTO) 0 % (0-10); EOSINOPHILS # (AUTO) 0.3 10^3/uL (0.0-0.3); EOSINOPHILS % (AUTO) 2 % (0-10); HEMATOCRIT 35 % (40-54); HEMOGLOBIN 11.7 g/dL (13.3-17.7); LYMPHOCYTES # (AUTO) 3.1 10^3/uL (1.0-4.0); LYMPHOCYTES % (AUTO) 28 % (12-44); MEAN CORPUSCULAR HEMOGLOBIN 31 pg (25-34); MEAN CORPUSCULAR HGB CONC 33 g/dL (32-36); MEAN CORPUSCULAR VOLUME 91 fL (80-99); MEAN PLATELET VOLUME 10.3 fL (9.0-12.2); MONOCYTES % (AUTO) 9 % (0-12); NEUTROPHILS # (AUTO) 6.9 10^3/uL (1.8-7.8); NEUTROPHILS % (AUTO) 61 % (42-75); PLATELET COUNT 327 10^3/uL (130-400); WHITE BLOOD COUNT 11.3 10^3/uL (4.3-11.0)
[2023-01-13] MEDS ORDERED: fentaNYL INJECTION 100 MCG/2 ML VIAL IVP ONE (10:00)
[2023-01-13 10:07] LABS: ALBUMIN 3.5 GM/DL (3.2-4.5)
[2023-01-13 10:07] LABS: INR 1.5 (0.8-1.4)
[2023-01-13 10:08] LABS: CALCIUM 9.2 MG/DL (8.5-10.1)
[2023-01-13 10:10] LABS: TOTAL PROTEIN 8.2 GM/DL (6.4-8.2)
[2023-01-13 10:11] LABS: BILIRUBIN,TOTAL 0.4 MG/DL (0.1-1.0)
[2023-01-13 10:13] LABS: CREATININE SERUM 1.51 MG/DL (0.60-1.30)
--- NOTE | 2023-01-13 11:28 | Diagnostic Imaging Report ---
FOOT, RIGHT, 3 VIEW INDICATION: Right foot pain COMPARISON: None available. TECHNIQUE: 3 views right foot FINDINGS: Arthrodesis of the posterior subtalar joint utilizing a single lag screw and there is solid fusion. No acute fracture is appreciated. There are no osseous erosions. Old healed fracture in the 2nd metatarsal shaft. Extensive vascular opacifications. IMPRESSION: 1. No fracture or radiographic features of osteomyelitis. 2. Solid fusion of the posterior subtalar arthrodesis. Dictated by: Dictated on workstation # [id number]
--- NOTE | 2023-01-13 11:34 | Diagnostic Imaging Report ---
US RIGHT LOW EXT [id number] INDICATION: Foot discoloration and pain. COMPARISON: Right lower extremity ultrasound of 06/15/2019. TECHNIQUE: Grayscale, color Doppler and spectral Doppler imaging of the right lower extremity arteries. FINDINGS: Color Doppler imaging shows patency of the common femoral, proximal deep femoral, superficial femoral, popliteal, posterior tibial and dorsalis pedis arteries. The common femoral artery has normal triphasic waveform. However, the remainder of the arteries have abnormal monophasic waveforms with flow velocities. No elevated peak systolic velocities. Patent collateral vessel is noted at the distal collateralization. Patient may have a bypass graft present, but the patient himself is unsure. IMPRESSION: 1. There is potential bypass graft of the femoral popliteal arteries, although patient was unsure and technologist could not definitively identify the graft. Abnormal blood flow is seen from the level of the common femoral through the dorsalis pedis artery. Correlation with patient's vascular surgery history would be very beneficial. Dictated by: Dictated on workstation # [id number]
--- NOTE | 2023-01-13 11:40 | Diagnostic Imaging Report ---
PROCEDURE: US right lower extremity venous. TECHNIQUE: Multiple real-time grayscale images were obtained over the right lower extremity in various projections. Additional spectral analysis and color Doppler duplex images were also obtained. INDICATION: Foot pain. FINDINGS: Right lower extremity venous Doppler and ultrasound exam was normal and normal vascular compressibility, color flow and waveforms present. IMPRESSION: Normal negative unilateral right lower extremity venous Doppler and ultrasound exam. Dictated by: Dictated on workstation # [id number]
[2023-01-13] MEDS ORDERED: ONDANSETRON INJECTION 4 MG/2 ML (SDV) IVP ONE (14:00)
[2023-01-13] MEDS ORDERED: SULF1TAB38 PO (14:00)
[2023-01-13] MEDS ORDERED: ONDA4TAB11 SL (14:00)
[2023-01-13] MEDS ORDERED: OXYC1TAB12 PO (14:00)
[2023-01-13] MEDS ORDERED: Sulfamethoxazole/Trimethoprim DS TABLET PO ONE (14:00)
[2023-01-13 14:06] VITALS: BP 120/56
== END 2023-01-13 14:06 | disposition home or self-care (01) ==
LOC: EDUNIT# 09:37 → ER 09:39
DX: I73.9 Peripheral vascular disease, unspecified (principal); E11.621 Type 2 diabetes mellitus with foot ulcer; L97.519 Non-pressure chronic ulcer of other part of right foot with unspecified severity; L03.115 Cellulitis of right lower limb; I82.401 Acute embolism and thrombosis of unspecified deep veins of right lower extremity; R79.1 Abnormal coagulation profile; F17.210 Nicotine dependence, cigarettes, uncomplicated; Z79.01 Long term (current) use of anticoagulants; Z89.612 Acquired absence of left leg above knee
CPT/HCPCS: 36415; 73630; 80053; 83605; 85025; 85610; 85730; 86141; 87040; 93926; 96374; 96375

== ENCOUNTER → 2023-01-16 | Outpatient (CLI) | payer MEDICARE, MEDICAID ==
[~2023-01-16] MED LIST changes: +ONDA4TAB11 SL; +OXYC1TAB12 PO; +SULF1TAB38 PO
== END ==
LOC: WOUNDCARE 08:14
PROVIDERS: ATTEND Family Medicine
DX: I96 Gangrene, not elsewhere classified (principal); L97.519 Non-pressure chronic ulcer of other part of right foot with unspecified severity; L97.419 Non-pressure chronic ulcer of right heel and midfoot with unspecified severity; L97.219 Non-pressure chronic ulcer of right calf with unspecified severity; I70.235 Atherosclerosis of native arteries of right leg with ulceration of other part of foot; I70.234 Atherosclerosis of native arteries of right leg with ulceration of heel and midfoot; I70.232 Atherosclerosis of native arteries of right leg with ulceration of calf; I70.311 Atherosclerosis of unspecified type of bypass graft(s) of the extremities with intermittent claudication, right leg; I70.361 Atherosclerosis of unspecified type of bypass graft(s) of the extremities with gangrene, right leg; I10 Essential (primary) hypertension; L03.115 Cellulitis of right lower limb; F17.218 Nicotine dependence, cigarettes, with other nicotine-induced disorders
CPT/HCPCS: 99214

== ENCOUNTER → 2023-01-22 | Outpatient (CLI) | payer MEDICARE, MEDICAID ==
[~2023-01-22] MED LIST changes: +GADOTERATE 0.5 MMOL/ML (CLARISCAN) 20 ML VIAL IV ONE
--- NOTE | 2023-01-23 12:42 | Diagnostic Imaging Report ---
Exam: MRI right foot without and with intravenous contrast. Date: January 22, 2023. Indication: 77-year-old male, ulcer of the right great toe. Evaluation for osteomyelitis. Comparison: Right foot radiographs January 13, 2023. Technique: Multiple pre and post contrast MRI sequences of the right foot were obtained. Findings: The Lisfranc ligament proper is intact. The imaged portions of the anterior extensor tendons, posterior flexor tendons, and peroneal tendons are intact. There is no evidence of tenosynovitis. There is a skin defect medially located at the level of the first distal phalanx and first interphalangeal joint. The skin defect directly or very nearly directly contacts the medial collateral ligament at the first interphalangeal joint. There is no clear direct contact of bone. There is edema-like signal and enhancement in the first distal phalanx involving essentially the entire extent of the first distal phalanx consistent with osteomyelitis. There is mild associated T1 marrow signal loss. There is no aggressive bone destruction. There is no large joint effusion or evidence of septic arthritis. There is also nonspecific edema-like signal in the second, third, fourth, and fifth distal phalanges without aggressive bone destruction or visible adjacent soft tissue ulcer. There is also edema-like signal in the second middle phalanx. There is mild generalized fatty muscle atrophy most likely reflecting polyneuropathy. There is no identified drainable fluid collection or abscess. Impression: 1. Skin defect medially at the level of the first distal phalanx and first interphalangeal joint which nearly directly contacts the medial collateral ligament of the first interphalangeal joint. 2. Osteomyelitis involving the entire extent of the first distal phalanx. 3. Nonspecific edema-like signal in the second, third, fourth, and fifth distal phalanges and also in the second middle phalanx. 4. No drainable fluid collection or abscess. 5. No evidence of septic arthritis. 6. Mild generalized fatty muscle atrophy most likely reflecting polyneuropathy. Dictated by: Dictated on workstation # [id number]
== END ==
LOC: RAD 01-21 14:09
PROVIDERS: ATTEND Family Medicine
DX: I70.235 Atherosclerosis of native arteries of right leg with ulceration of other part of foot (principal); L97.419 Non-pressure chronic ulcer of right heel and midfoot with unspecified severity; L97.519 Non-pressure chronic ulcer of other part of right foot with unspecified severity; L97.219 Non-pressure chronic ulcer of right calf with unspecified severity; I70.234 Atherosclerosis of native arteries of right leg with ulceration of heel and midfoot; I70.232 Atherosclerosis of native arteries of right leg with ulceration of calf; I70.311 Atherosclerosis of unspecified type of bypass graft(s) of the extremities with intermittent claudication, right leg; I70.361 Atherosclerosis of unspecified type of bypass graft(s) of the extremities with gangrene, right leg; I89.0 Lymphedema, not elsewhere classified; L03.115 Cellulitis of right lower limb; F17.218 Nicotine dependence, cigarettes, with other nicotine-induced disorders
CPT/HCPCS: 73720

== ENCOUNTER 2023-01-23 09:49 | Emergency (ER) | payer MEDICARE, MEDICAID ==
[~2023-01-23] VITALS: Ht 161 cm; Wt 82.0 kg
[2023-01-23 10:12] VITALS: BP 127/53
[2023-01-23] MEDS ORDERED: NS IV 1000 ML 1,000 ML IV STA (11:14)
[2023-01-23] MEDS ORDERED: PIPERACILLIN/Tazobactam 4.5 GM in NS (IVPB) 100 ML 100 ML IV ONE (11:15)
[2023-01-23] MEDS ORDERED: VANCOMYCIN INJECTION 1,000 MG in NS (IVPB) 250 ML 250 ML IV ONE (11:15)
--- NOTE | 2023-01-23 11:19 | ED Integumentary General ---
General Chief Complaint: Skin/Wound Problems Stated Complaint: WOUND CARE TREATMENT Nursing Triage Note: PT ENT FROM WOUND CARE WITH WOUND TO RT FOOT AND NEED FOR TRANSPORT TO [facility]. HX OF PAD, MRI DONE HERE YESTERDAY, PT IS OUT OF PAIN MEDS AND NEEDING PAIN CONTROL Source: patient Exam Limitations: no limitations (ROM MORRIS) History of Present Illness Date Seen by Provider: Jan 23, 2023 Time Seen by Provider: 11:16 Initial Comments Patient is a 77-year-old male with a history of peripheral vascular disease, coronary artery disease who presents to the ED for right foot ankle and leg pain. Patient states he suffered royal to his right foot back in September. Currently being managed by wound care. He has had increased redness swelling and pain to the right leg over the past week or so. Was seen today sent over the ER due to the increasing pain. Did have an outpatient MRI performed yesterday. Did have an ultrasound of the right leg on the january which was negative for DVT. Monophasic flow noted to the right distal leg. Patient reports having a graft placed in his right leg several years ago. Amputation above the knee left leg. Denies fever chills nausea vomiting diarrhea. Taking Tylenol at home without improvement of the pain. Does report wounds to his right foot denies of any active drainage. (ROM MORRIS) Allergies and Home Medications Allergies Coded Allergies: morphine (Verified Allergy, Unknown, 09/01/16) Patient Home Medication List Home Medication List Reviewed: Yes (ROM MORRIS) Allopurinol (Allopurinol) 100 Mg Tablet, 100 MG PO DAILY, (Reported) Entered as Reported by: NITA SHIN on 09/01/16 1156 Aspirin (Aspirin EC) 81 Mg Tablet.dr, 81 MG PO DAILY, (Reported) Entered as Reported by: DOMINICK GUZMAN on 09/01/19 1608 Carvedilol (Carvedilol) 6.25 Mg Tablet, 6.25 MG PO BID, (Reported) Entered as Reported by: CHETAN MULLINS on 12/26/15 1240 Docusate Sodium (Colace) 100 Mg Capsule, 100 MG PO DAILY, (Reported) Entered as Reported by: NITA SHIN on 09/01/16 1156 Famotidine (Pepcid) 20 Mg Tablet, 20 MG PO DAILY, (Reported) Entered as Reported by: DOMINICK GUZMAN on 09/01/19 1608 Gabapentin (Neurontin) 300 Mg Capsule, 300 MG PO TID, (Reported) Entered as Reported by: DOMINICK GUZMAN on 09/01/19 1608 Hydrocodone Bit/Acetaminophen (HYDROcodone/APAP 7.5/325 TAB) 1 Ea Tablet, 1 EA PO Q6H PRN for PAIN-MODERATE (5-7) Prescribed by: OTTO MILLER on 09/02/19 0958 Lactobacillus Acidophilus/Pect (Acidophilus-Pectin Capsule) 1 Each Capsule, 2 EACH PO TIDWM Prescribed by: OTTO MILLER on 09/02/19 0958 Linezolid (Zyvox) 600 Mg Tablet, 600 MG PO BID, (Reported) Entered as Reported by: DOMINICK GUZMAN on 09/01/19 1608 Lisinopril (Lisinopril) 5 Mg Tablet, 5 MG PO DAILY, (Reported) Entered as Reported by: CHETAN MULLINS on 12/26/15 1240 Magnesium Oxide (Magnesium Oxide) 400 Mg Tablet, 400 MG PO DAILY, (Reported) Entered as Reported by: DOMINICK GUZMAN on 09/01/19 1608 Metronidazole (Metronidazole) 500 Mg Tablet, 500 MG PO TID, (Reported) Entered as Reported by: DOMINICK GUZMAN on 09/01/19 1608 Mirtazapine (Mirtazapine) 30 Mg Tablet, 30 MG PO HS PRN for SLEEP Prescribed by: OTTO MILLER on 09/02/19 0958 Multivitamin (Multivitamin) 1 Each Tablet, 1 EACH PO DAILY, (Reported) Entered as Reported by: DOMINICK GUZMAN on 09/01/19 1608 Nystatin (Nystatin) 15 Gm Cream..g., 0 GM TP TID Prescribed by: OTTO MILLER on 08/24/19 0851 Ondansetron (Ondansetron Odt) 4 Mg Tab.rapdis, 4 MG SL Q4H PRN for NAUSEA/VOMITING Prescribed by: NAVIN SWAN on 01/13/23 1400 Oxycodone HCl/Acetaminophen (Percocet 10-325 mg Tablet) 1 Each Tablet, 1 TAB PO Q6H PRN for PAIN-SEVERE (8-10) Prescribed by: NAVIN SWAN on 01/13/23 1401 Potassium Chloride (Potassium Chloride) 10 Meq Capsule.er, 10 MEQ PO BID, (Reported) Entered as Reported by: DOMINICK GUZMAN on 09/01/19 1608 Rosuvastatin Calcium (Rosuvastatin Calcium) 20 Mg Tablet, 20 MG PO HS, (Reported) Entered as Reported by: DOMINICK GUZMAN on 09/01/19 1608 Sulfamethoxazole/Trimethoprim (Bactrim Ds Tablet) 1 Each Tablet, 1 EACH PO BID Prescribed by: NAVIN SWAN on 01/13/23 1400 Warfarin Sodium (Warfarin Sodium) 2 Mg Tablet, 2 MG PO ,,THU,THU,THU Prescribed by: OTTO MILLER on 09/02/19 0958 Warfarin Sodium (Warfarin Sodium) 2 Mg Tablet, 4 MG PO , Prescribed by: OTTO MILLER on 09/02/19 0958 Review of Systems Review of Systems Constitutional: No chills, No diaphoresis, No fever, No malaise, No weakness EENTM: No ear pain, No blurred vision, No double vision Respiratory: No cough, No dyspnea on exertion Cardiovascular: No chest pain Gastrointestinal: No abdominal pain, No diarrhea, No nausea, No vomiting Genitourinary: No decreased output, No discharge Musculoskeletal: No back pain; joint pain, muscle pain, muscle stiffness Skin: change in color (ROM MORRIS) All Other Systems Reviewed Negative Unless Noted: Yes (ROM MORRIS) Past Sxecuyo-Lxqkcd-Xfinjj Hx Patient Social History Tobacco Use?: Yes Tobacco type used: Cigarettes Smoking Status: Current Everyday Smoker Substance use?: No Alcohol Use?: No (ROM MORRIS) Immunizations Up To Date Tetanus Booster (TDap): Less than 5yrs PED Vaccines UTD: Yes First/Initial COVID19 Vaccinat: DENIES Second COVID19 Vaccination Lalo: DENIES Third COVID19 Vaccination Date: DENIES (ROM MORRIS) Seasonal Allergies Seasonal Allergies: Yes (ROM MORRIS) Past Medical History Surgery/Hospitalization HX: PAD, CABG, MECHANICAL HEART VALVE, COPD Surgeries: Yes (CABG,VALVE REPLACED,PLATE IN LEG,VASECTOMY,AKA) Amputation, Angioplasty, CABG, Coronary Stent, Open Heart Surgery, Valve Replacement, Vascular Surgery Respiratory: Yes COPD Currently Using CPAP: No Currently Using BIPAP: No Cardiac: Yes Chronic Edema/Swelling, Coronary Artery Disease, High Cholesterol, Hypertension, Peripheral Vascular, Valvular Heart Disease Neurological: Yes Neuropathy Reproductive Disorders: No Sexually Transmitted Disease: No HIV/AIDS: No Genitourinary: No Gastrointestinal: Yes Diverticulosis 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 skilled nursing anticoag therapy.) Adverse Reaction/Blood Tranf: No (ROM MORRIS) Family Medical History Heart Disease, Hypertension, Psychiatric Problems (ROM MORRIS) Physical Exam Vital Signs Vital Signs - First Documented 01/23/23 10:12 Temp 36.7 Pulse 75 Resp 18 B/P (MAP) 127/53 (77) Pulse Ox 96 O2 Delivery Room Air (NAVIN STAPLETON MD) Vital Signs Capillary Refill : (ROM MORRIS) General Appearance: WD/WN, no apparent distress HEENT: PERRL/EOMI, normal ENT inspection, TMs normal, pharynx normal Neck: non-tender, full range of motion, supple Cardiovascular: regular rate, rhythm, no edema, no gallop, no JVD Respiratory: chest non-tender, lungs clear, normal breath sounds, no respiratory distress, no accessory muscle use Gastrointestinal: normal bowel sounds, non tender, soft, no organomegaly Back: normal inspection, no CVA tenderness Extremities: other (Left leg above-knee amputation. Erythema and swelling noted to the right foot right ankle. Necrotic tissue right big toe. Crusty lesions noted on the dorsum foot and dorsum ankle. Diminished pulses. Delayed cap refill greater than 2.) Skin: other (Swelling erythema to right foot right ankle.) (ROM MORRIS) Progress/Results/Core Measures Results/Orders Lab Results Laboratory Tests Test 01/23/23 11:14 01/23/23 15:13 Range/Units White Blood Count 9.1 4.3-11.0 10^3/uL Red Blood Count 3.64 L 4.30-5.52 10^6/uL Hemoglobin 10.9 L 13.3-17.7 g/dL Hematocrit 34 L 40-54 % Mean Corpuscular Volume 92 80-99 fL Mean Corpuscular Hemoglobin 30 25-34 pg Mean Corpuscular Hemoglobin Concent 33 32-36 g/dL Red Cell Distribution Width 14.3 10.0-14.5 % Platelet Count 290 130-400 10^3/uL Mean Platelet Volume 10.8 9.0-12.2 fL Immature Granulocyte % (Auto) 0 % Neutrophils (%) (Auto) 60 42-75 % Lymphocytes (%) (Auto) 26 12-44 % Monocytes (%) (Auto) 10 0-12 % Eosinophils (%) (Auto) 4 0-10 % Basophils (%) (Auto) 0 0-10 % Neutrophils # (Auto) 5.5 1.8-7.8 10^3/uL Lymphocytes # (Auto) 2.3 1.0-4.0 10^3/uL Monocytes # (Auto) 0.9 0.0-1.0 10^3/uL Eosinophils # (Auto) 0.4 H 0.0-0.3 10^3/uL Basophils # (Auto) 0.0 0.0-0.1 10^3/uL Immature Granulocyte # (Auto) 0.0 0.0-0.1 10^3/uL Prothrombin Time 37.2 H 12.2-14.7 SEC INR Comment 3.6 H 0.8-1.4 Activated Partial Thromboplast Time 69 H 24-35 SEC Sodium Level 138 135-145 MMOL/L Potassium Level 4.2 3.6-5.0 MMOL/L Chloride Level 100 98-107 MMOL/L Carbon Dioxide Level 31 21-32 MMOL/L Anion Gap 7 5-14 MMOL/L Blood Urea Nitrogen 17 7-18 MG/DL Creatinine 1.48 H 0.60-1.30 MG/DL Estimat Glomerular Filtration Rate 49 BUN/Creatinine Ratio 11 Glucose Level 101 70-105 MG/DL Lactic Acid Level 0.89 0.50-2.00 MMOL/L Calcium Level 9.2 8.5-10.1 MG/DL Corrected Calcium 9.8 8.5-10.1 MG/DL Total Bilirubin 0.4 0.1-1.0 MG/DL Aspartate Amino Transf (AST/SGOT) 34 5-34 U/L Alanine Aminotransferase (ALT/SGPT) 26 0-55 U/L Alkaline Phosphatase 102 40-136 U/L Total Protein 8.0 6.4-8.2 GM/DL Albumin 3.3 3.2-4.5 GM/DL Urine Color YELLOW Urine Clarity CLEAR Urine pH 7.0 5-9 Urine Specific Henderson 1.020 1.016-1.022 Urine Protein TRACE H NEGATIVE Urine Glucose (UA) NEGATIVE NEGATIVE Urine Ketones NEGATIVE NEGATIVE Urine Nitrite NEGATIVE NEGATIVE Urine Bilirubin NEGATIVE NEGATIVE Urine Urobilinogen 0.2 < = 1.0 MG/DL Urine Leukocyte Esterase TRACE H NEGATIVE Urine RBC (Auto) NEGATIVE NEGATIVE Urine RBC NONE /HPF Urine WBC 2-5 /HPF Urine Squamous Epithelial Cells 5-10 /HPF Urine Crystals NONE /LPF Urine Bacteria FEW H /HPF Urine Casts PRESENT /LPF Urine Hyaline Casts 5-10 H /LPF Urine Mucus NEGATIVE /LPF Urine Culture Indicated CULTURE PENDING (NAVIN STAPLETON MD) Medications Given in ED Current Medications Medications Dose Ordered Sig/Celestine Route Start Time Stop Time Status Last Admin Dose Admin Piperacillin Sod/ Tazobactam Sod 4.5 gm/Sodium Chloride 100 ml @ 200 mls/hr ONCE ONCE IV 01/23/23 11:15 01/23/23 11:44 DC 01/23/23 11:26 200 MLS/HR Vancomycin HCl 1000 mg/Sodium Chloride 250 ml @ 250 mls/hr ONCE ONCE IV 01/23/23 11:15 01/23/23 12:14 DC 01/23/23 12:37 250 MLS/HR (NAVIN STAPLETON MD) Vital Signs/I&O 01/23/23 10:12 Temp 36.7 Pulse 75 Resp 18 B/P (MAP) 127/53 (77) Pulse Ox 96 O2 Delivery Room Air (NAVIN STAPLETON MD) Blood Pressure Mean: 77 Departure Communication (PCP) Reviewed previous ER visits, H&P, lab testing. January 13 had ultrasound of the right lower extremity. Arterial ultrasound showed monophasic flow from the common femoral artery to the dorsalis pedis. No evidence of DVT. Outpatient MRI did show osteomyelitis of the distal phalanx of the first digit. Left AKA. Extensive vascular history. History of graft the right leg several years ago. Diminished blood flow to right leg but does have a warm extremity. delay cap refill. Does have a lesion and wound to the right medial big toe with crusting and surrounding redness and swelling of the dorsum foot and dorsum ankle. concern for cellulitis. Increasing worsening pain over the past week. Septic work-up was initiated. Patient Was not tachycardic or hypoxic. Stable vital signs. CBC, CMP was grossly unremarkable.. Normal lactic acid. Blood cultures pending. Started on vancomycin and Zosyn. Scheduled to follow-up with Dr. Jaelyn estes vascular surgeon at [facility] on the . Due to the osteomyelitis and diminished blood flow would likely benefit with vascular surgeon evaluation. Concern for delay wound healing. Denies diabetes. Not concern for ischemic limb at this time. I did discuss patient with Dr. Yao general surgeon on-call who recommended transfer to [facility] as patient may need further vascular interve ntion. Patient was discussed with Dr. Kim hospitalist at [facility] who agreed to accept patient. I did discuss patient with Dr. Portillo vascular surgeon who agreed to evaluate patient on arrival and agrred with transfer. Recommended no further imaging or treatment at this time. Patient will be transferred by EMS. (ROM MORRIS) Impression Primary Impression: Osteomyelitis Additional Impression: Peripheral artery disease Disposition: 02 XFER SHT-TRM HOSP Condition: Stable Transfer BH Medically Cleared for Xfer: Yes Transfer Reason: Exceeds level of care Time Spoke to Accepting Phy: 13:[address] Linn Transfer Time: 13:49 Transfer Facility: [facility] Method of Transfer: EMS (ROM MORRIS) Departure-Patient Inst. Referrals: OTTO MILLER MD (PCP/Family) Primary Care Physician ATTENDING PHYSICIAN NOTE: I was physically present as attending physician in the emergency department during the care of this patient, but I was not directly involved in the decision making or delivery of care for this patient. (NAVIN STAPLETON MD) ROM MORRIS Jan 23, 2023 11:19 NAVIN STAPLETON MD Jan 23, 2023 21:41
[2023-01-23 11:23] LABS: BASOPHILS % (AUTO) 0 % (0-10); EOSINOPHILS # (AUTO) 0.4 10^3/uL (0.0-0.3); EOSINOPHILS % (AUTO) 4 % (0-10); HEMATOCRIT 34 % (40-54); HEMOGLOBIN 10.9 g/dL (13.3-17.7); LYMPHOCYTES # (AUTO) 2.3 10^3/uL (1.0-4.0); LYMPHOCYTES % (AUTO) 26 % (12-44); MEAN CORPUSCULAR HEMOGLOBIN 30 pg (25-34); MEAN CORPUSCULAR HGB CONC 33 g/dL (32-36); MEAN CORPUSCULAR VOLUME 92 fL (80-99); MEAN PLATELET VOLUME 10.8 fL (9.0-12.2); MONOCYTES # (AUTO) 0.9 10^3/uL (0.0-1.0); MONOCYTES % (AUTO) 10 % (0-12); NEUTROPHILS # (AUTO) 5.5 10^3/uL (1.8-7.8); NEUTROPHILS % (AUTO) 60 % (42-75); PLATELET COUNT 290 10^3/uL (130-400); WHITE BLOOD COUNT 9.1 10^3/uL (4.3-11.0)
[2023-01-23 11:32] LABS: ALBUMIN 3.3 GM/DL (3.2-4.5); POTASSIUM 4.2 MMOL/L (3.6-5.0)
[2023-01-23 11:34] LABS: CALCIUM 9.2 MG/DL (8.5-10.1)
[2023-01-23 11:35] LABS: INR 3.6 (0.8-1.4); PROTHROMBIN TIME PATIENT 37.2 SEC (12.2-14.7)
[2023-01-23 11:37] LABS: BILIRUBIN,TOTAL 0.4 MG/DL (0.1-1.0)
[2023-01-23 11:38] LABS: CREATININE SERUM 1.48 MG/DL (0.60-1.30)
[2023-01-23] MEDS ORDERED: fentaNYL INJECTION 100 MCG/2 ML VIAL IVP STA (11:46)
[2023-01-23 15:37] LABS: CLARITY,URINE CLEAR; COLOR,URINE YELLOW; PROTEIN,URINE TRACE (NEGATIVE)
[2023-01-23 15:38] LABS: BACTERIA,URINE FEW /HPF; BILIRUBIN,URINE NEGATIVE (NEGATIVE); GLUCOSE, URINE (UA) NEGATIVE (NEGATIVE); KETONES,URINE NEGATIVE (NEGATIVE); LEUKOCYTE ESTERASE ,URINE TRACE (NEGATIVE); NITRITE,URINE NEGATIVE (NEGATIVE)
== END 2023-01-23 15:18 | disposition short-term general hospital (02) ==
LOC: EDUNIT# 09:49 → ER 09:52
DX: M86.8X7 Other osteomyelitis, ankle and foot (principal); I73.9 Peripheral vascular disease, unspecified; D64.9 Anemia, unspecified; F17.210 Nicotine dependence, cigarettes, uncomplicated; Z95.1 Presence of aortocoronary bypass graft; Z95.2 Presence of prosthetic heart valve; Z79.01 Long term (current) use of anticoagulants
CPT/HCPCS: 36415; 80053; 81000; 83605; 85025; 85610; 85730; 87040; 87088; 96361; 96365; 96375

== ENCOUNTER → 2023-01-23 | Outpatient (CLI) | payer MEDICARE, MEDICAID ==
[~2023-01-23] MED LIST changes: -GADOTERATE 0.5 MMOL/ML (CLARISCAN) 20 ML VIAL IV ONE
== END ==
LOC: WOUNDCARE 09:20
PROVIDERS: ATTEND Family Medicine
DX: I96 Gangrene, not elsewhere classified (principal); L97.519 Non-pressure chronic ulcer of other part of right foot with unspecified severity; L97.419 Non-pressure chronic ulcer of right heel and midfoot with unspecified severity; L97.219 Non-pressure chronic ulcer of right calf with unspecified severity; I70.235 Atherosclerosis of native arteries of right leg with ulceration of other part of foot; I70.234 Atherosclerosis of native arteries of right leg with ulceration of heel and midfoot; I70.232 Atherosclerosis of native arteries of right leg with ulceration of calf; I70.311 Atherosclerosis of unspecified type of bypass graft(s) of the extremities with intermittent claudication, right leg; I70.361 Atherosclerosis of unspecified type of bypass graft(s) of the extremities with gangrene, right leg; I89.0 Lymphedema, not elsewhere classified; F17.218 Nicotine dependence, cigarettes, with other nicotine-induced disorders; L03.115 Cellulitis of right lower limb; I70.221 Atherosclerosis of native arteries of extremities with rest pain, right leg
CPT/HCPCS: 99213